=== PATIENT | female | born 1940 | race Caucasian/White ===

== ENCOUNTER 2016-03-27 16:22 | Emergency (ER) | payer OTHER ==
[~2016-03-27] VITALS: Ht 144.8 cm; Wt 60.4 kg
[~2016-03-27 16:22] MED LIST: BIOT1TAB5 PO; CALC500C73 PO; CYAN500T PO; DORZ2SOL20 OPB; GLUC-172 PO; LATA0.009 OPB; LEVO100T7 PO; LSN5 PO; OMEG10007 PO; OMEP40CA PO; SIMV10TA2 PO; VALA500T60 PO
[2016-03-27 16:26] VITALS: TEMP 36.4; Ht 144.8 cm; Wt 60.4 kg
[2016-03-27] MEDS ORDERED: ONDANSETRON INJ 2 MG/ML 2 ML VIAL IV STA (16:29)
[2016-03-27] MEDS ORDERED: SODIUM CHLORIDE 0.9% 1000ML 1,000 ML IV STA (16:29)
--- NOTE | 2016-03-27 16:34 | EMERGENCY ROOM VISIT NOTE ---
History Report prepared by Reji: Hakan Valdez Under the Supervision of: Dr. Raza Montenegro M.D. First contact with patient: 16:24 Chief Complaint: VOMITING Stated Complaint: NAUSEA, VOMITING, WEAKNESS History of Present Illness The patient is a 75 year old female who presents to the Emergency Room with complaints of persistent vomiting beginning about 2.5 hours ago. She notes she felt lightheaded before vomiting, and has had nausea, and diarrhea. She reports she has had a sinus infection for the past month and just finished her prednisone and antibiotics. She notes still having ringing and fullness in her ears. She denies having any pain, or urinary symptoms, and has not had sick contact. The patient has not taken anything for her nausea. She does not smokes , she lives with her , and she is up to date on her tetanus. Source of History: patient Onset: about 2.5 hours ago Position: other (global) Quality: other (vomiting) Timing: other (persistent) Associated Symptoms: + diarrhea, + nausea, No urinary symptoms Note: The patient notes having ringing and fullness in her ears. The patient notes feeling lightheaded. The patient denies general pain. Review of Systems See HPI for pertinent positives & negatives. A total of 10 systems reviewed and were otherwise negative. Past Medical & Surgical Medical Problems: (1) Diverticulosis (2) Hyperlipidemia (3) Hypertensive urgency (4) Hypothyroid Family History No pertinent family history stated. Social History Smoking Status: Never Smoker Marital Status: Housing Status: lives with significant other Current/Historical Medications Scheduled Biotin (Biotin), 1,000 MCG PO DAILY Calcium Carbonate (Tums), 500 MG PO DAILY Cyanocobalamin (Vitamin B-12), 500 MCG PO DAILY Dorzolamide Hcl-Timolol Maleat (Cosopt Oph), 1 DROPS OPB BID Fish Oil ([place]-3), 1,400 MG PO DAILY Glucosamine Sulfate (Glucosamine), 1,000 MG PO DAILY Latanoprost (Xalatan 0.005% Oph Charo), 1 DROPS OPB HS Levothyroxine Sodium (Levothyroxine Sodium), 100 MCG PO DAILY Lisinopril (Lisinopril), 5 MG PO QAM Simvastatin (Zocor), 10 MG PO HS Scheduled PRN Meclizine HCl (Meclizine HCl), 1 TAB PO TID PRN for Dizziness or Vertigo Valacyclovir (Valtrex), 500 MG PO BID PRN for cold sores Allergies Coded Allergies: No Known Allergies (Verified , 03/27/16) Physical Exam Vital Signs Date Time Temp Pulse Resp B/P Pulse Ox O2 Delivery O2 Flow Rate FiO2 03/27/16 19:58 55 16 152/74 97 03/27/16 19:11 59 16 166/93 97 Room Air 03/27/16 17:23 57 16 167/76 97 Room Air 03/27/16 16:26 36.4 61 16 169/100 98 Room Air Physical Exam GENERAL: Patient is well appearing and in no acute distress. HEENT: No acute trauma, normocephalic atraumatic, mucous membranes moist, no nasal congestion, no scleral icterus. NECK: No stridor, no adenopathy, no meningismus, trachea is midline. LUNGS: No dyspnea. Clear to auscultation and equal bilaterally. No wheeze, no rhonchi. HEART: Regular rate and rhythm. No murmurs, rubs, gallops appreciated. ABDOMEN: Soft, nontender, bowel sounds positive, no masses appreciated, no peritonitis. BACK: No midline tenderness, no CVA tenderness EXTREMITIES: Normal motion all extremities, no cyanosis, no edema. NEUROLOGIC: Alert and oriented, no acute motor or sensory deficits, no focal weakness, cranial nerves grossly intact. SKIN: No rash, no jaundice, no diaphoresis. Medical Decision & Procedures ER Provider Diagnostic Interpretation: X ray results and stated below per my interpretation and radiologist interpretation. Other radiology results and stated below per my review and radiologist interpretation: HEAD CT NONCONTRAST Findings: The paranasal sinuses and mastoid air cells are clear. The calvarium and skull base are intact. The ventricles and sulci are within normal limits. There is no mass, hematoma, midline shift, or acute infarct. Impression: No acute intracranial abnormality. Electronically signed by: Arvind Stephens M.D. 03/27/2016 5:01 PM Dictated Date/Time: 03/27/2016 4:[address] FINDINGS: The frontal sinuses are clear. There is mild mucosal thickening within the bilateral frontoethmoidal recesses. Otherwise, the ethmoid air cells, sphenoid sinuses, and bilateral maxillary sinuses are essentially clear. The mastoid air cells are clear. The nasal septum is midline. The bilateral ostiomeatal units are patent. The lamina papyracea and orbital floors are intact. No evidence for carotid canal dehiscence. The orbits are unremarkable. Best seen on coronal images 17 through 20 there is suggestion of a right cribriform plate defect. This measures 3 mm in size. IMPRESSION: Possible right cribriform plate defect measuring 3 mm. Clinical correlation recommended to assess for a cerebral spinal fluid leak. However, there is no significant fluid within the paranasal sinuses at this time to confirm a leak. Direct visualization may be considered for further evaluation. Electronically signed by: Arvind Stephens M.D. 03/27/2016 5:07 PM Dictated Date/Time: 03/27/2016 5:01 PM CHEST ONE VIEW PORTABLE FINDINGS: The heart is normal in size. No pneumothorax. Stable blunting the left lateral costophrenic sulcus. Bibasilar densities persist or this favors subsegmental atelectasis is the upper lungs and remain clear. No evidence for pulmonary edema. IMPRESSION: No significant change compared to the prior study. Stable blunting of the left lateral costophrenic sulcus and mild bibasilar subsegmental atelectasis. Electronically signed by: Arvind Stephens M.D. 03/27/2016 5:28 PM Dictated Date/Time: 03/27/2016 5:26 PM Laboratory Results 03/27/16 16:45 Red Blood Count 4.13, Mean Corpuscular Volume 94.2, Mean Corpuscular Hemoglobin 31.7, Mean Corpuscular Hemoglobin Concent 33.7, Mean Platelet Volume 9.7, Neutrophils (%) (Auto) 79.8, Lymphocytes (%) (Auto) 11.7, Monocytes (%) (Auto) 6.4, Eosinophils (%) (Auto) 1.6, Basophils (%) (Auto) 0.2, Neutrophils # (Auto) 11.63, Lymphocytes # (Auto) 1.71, Monocytes # (Auto) 0.94, Eosinophils # (Auto) 0.23, Basophils # (Auto) 0.03 03/27/16 16:45 Test 03/27/16 16:45 White Blood Count 14.59 K/uL (4.8-10.8) Red Blood Count 4.13 M/uL (4.2-5.4) Hemoglobin 13.1 g/dL (12.0-16.0) Hematocrit 38.9 % (37-47) Mean Corpuscular Volume 94.2 fL (80-100) Mean Corpuscular Hemoglobin 31.7 pg (25-34) Mean Corpuscular Hemoglobin Concent 33.7 g/dl (32-36) Platelet Count 204 K/uL (130-400) Mean Platelet Volume 9.7 fL (7.4-10.4) Neutrophils (%) (Auto) 79.8 % Lymphocytes (%) (Auto) 11.7 % Monocytes (%) (Auto) 6.4 % Eosinophils (%) (Auto) 1.6 % Basophils (%) (Auto) 0.2 % Neutrophils # (Auto) 11.63 K/uL (1.4-6.5) Lymphocytes # (Auto) 1.71 K/uL (1.2-3.4) Monocytes # (Auto) 0.94 K/uL (0.11-0.59) Eosinophils # (Auto) 0.23 K/uL (0-0.5) Basophils # (Auto) 0.03 K/uL (0-0.2) RDW Standard Deviation 45.3 fL (36.4-46.3) RDW Coefficient of Variation 13.1 % (11.5-14.5) Immature Granulocyte % (Auto) 0.3 % Immature Granulocyte # (Auto) 0.05 K/uL (0.00-0.02) Anion Gap 14.0 mmol/L (3-11) Est Creatinine Clear Calc Drug Dose 45.7 ml/min Estimated GFR () 82.3 Estimated GFR (Non- 71.0 BUN/Creatinine Ratio 28.5 (10-20) Calcium Level 9.5 mg/dl (8.5-10.1) Total Bilirubin 0.4 mg/dl (0.2-1) Direct Bilirubin 0.1 mg/dl (0-0.2) Aspartate Amino Transf (AST/SGOT) 13 U/L (15-37) Alanine Aminotransferase (ALT/SGPT) 18 U/L (12-78) Alkaline Phosphatase 54 U/L (45-117) Total Creatine Kinase 55 U/L (26-192) Creatine Kinase MB 1.7 ng/ml (0.5-3.6) Creatine Kinase MB Ratio 3.1 (0-3.0) Troponin I < 0.015 ng/ml (0-0.045) Total Protein 6.9 gm/dl (6.4-8.2) Albumin 3.3 gm/dl (3.4-5.0) Lipase 150 U/L (73-393) Laboratory results as reviewed by me. Medications Administered Medications (Trade) Dose Ordered Sig/Bere Route Start Time Stop Time Status Last Admin Dose Admin Ondansetron HCl 4 mg 4 mg NOW STAT IV 03/27/16 16:29 03/27/16 16:31 DC 03/27/16 16:29 4 MG Sodium Chloride (Nss 1000ml) 1,000 ml @ 999 mls/hr Q1H1M STAT IV 03/27/16 16:29 03/27/16 17:29 DC 03/27/16 16:41 999 MLS/HR Lorazepam (Ativan Inj) 0.5 mg NOW STAT IV 03/27/16 17:52 03/27/16 17:53 DC 03/27/16 18:32 0.5 MG Meclizine HCl (Antivert Tab) 12.5 mg NOW STAT PO 03/27/16 17:52 03/27/16 17:53 DC 03/27/16 18:31 12.5 MG Meclizine HCl (Antivert 25MG Home Pack) 1 homepack UD ONCE PO 03/27/16 19:45 03/27/16 19:46 DC 03/27/16 19:54 1 HOMEPACK Ondansetron HCl (ZOFRAN ODT 4MG Home Pack) 1 homepack UD ONCE PO 03/27/16 19:45 03/27/16 19:46 DC 03/27/16 19:54 1 HOMEPACK ECG Indication: vomiting Rate (beats per minute): 59 Rhythm: sinus bradycardia Findings: no acute ischemic change, no ectopy ED Course 1625: The patient was evaluated in room B7. A complete history and physical exam was performed. 1629: Ordered NSS 1,000 ml @ 999 mls/hr IV, and Zofran Inj 4 mg IV. 1749: The patient states the Zofran did not help. She feels her symptoms are more like "the world is spinning". 175: Ordered Meclizine HCl 12.5 mg PO, and Lorazepam 0.5 mg IV. 1912: I reassessed the patient and she feels completely better with no further symptoms. 1944: Ordered Ondansetron HCl 1 homepack PO, and Meclizine HCl 1 homepack PO. 1999: Reevaluated the patient. Discussed results and discharge instructions: She verbalized understanding and agreement. The patient is ready for discharge. Medical Decision Differential diagnoses include Benign positional vertigo, Dehydration, Hypovolemia, Anemia, Tumor, Infection, Hypoglycemia, Electrolyte abnormalities, Cardiac sources, Intracerebral event, Toxicologic, Neurologic, as well as others were entertained. 75 yr old female arrives with nausea, vomiting, weakness and complaint of "lightheadedness." After repeat discussions with her seems more vertiginous in nature and thus given ativan/meclizine with complete resolution of symptoms. She looks well, no neuro deficits and vitals normalized. She does have mildly elevated WBC though I suspect this is secondary to the recent steroid use she had rather than acute infection. She is noted ot have cribriform plate abnormality which I discussed with ENT who feel outpatient evaluation will be needed. She does not have meningitis by examination nor history. I do not feel she requires admission and she is very happy to be going home. I suspect her vertiginous symptoms from middle ear effusion. No evidence of otitis media at this time. Stable and feeling well at time of discharge. Plan use meclizine PRN and case management involved in helping set up outpatient follow- up. Impression Primary Impression: Vertigo Additional Impressions: Middle ear effusion Vomiting Cribriform Plate Abnormality Scribe Attestation The scribe's documentation has been prepared under my direction and personally reviewed by me in its entirety. I confirm that the note above accurately reflects all work, treatment, procedures, and medical decision making performed by me. Departure Information Dispostion Home / Self-Care Prescriptions Meclizine HCl (Meclizine HCl) 25 Mg Tab 1 TAB PO TID Y for Dizziness or Vertigo, #15 TAB Prov: Raza Montenegro M.D. 03/27/16 Referrals Kalen Ribeiro M.D. (PCP) Italo Baker MD Patient Instructions Dizziness Vertigo Inner Ear, My [facility] Additional Instructions Please follow up with ENT in the next few weeks for repeat evaluation of the abnormality seen on your CT Scan (irregularity of the Cribriform Plate). If you develop fevers, severe headache, neck stiffness, or other concerns, return for further evaluation. Problem Qualifiers Additional Impressions: Middle ear effusion Laterality: left Qualified Codes: H65.92 - Unspecified nonsuppurative otitis media, left ear Vomiting Vomiting type: unspecified Vomiting Intractability: non-intractable Nausea presence: with nausea Qualified Codes: R11.2 - Nausea with vomiting, unspecified
[2016-03-27] MEDS ORDERED: LATA0.5S OPB (16:43)
[2016-03-27] MEDS ORDERED: LEVO100T7 PO (16:43)
[2016-03-27] MEDS ORDERED: BIOT1TAB5 PO (16:43)
[2016-03-27] MEDS ORDERED: CALC500C3 PO (16:43)
--- NOTE | 2016-03-27 17:03 | DIAGNOSTIC IMAGING REPORT ---
HEAD CT NONCONTRAST CT DOSE: HISTORY: dizzy TECHNIQUE: Multiaxial CT images of the head were performed without the use of intravenous contrast. Automated exposure control was utilized for this study. Comparison: None. Findings: The paranasal sinuses and mastoid air cells are clear. The calvarium and skull base are intact. The ventricles and sulci are within normal limits. There is no mass, hematoma, midline shift, or acute infarct. Impression: No acute intracranial abnormality. Electronically signed by: Arvind Stephens M.D. 03/27/2016 5:01 PM Dictated Date/Time: 03/27/2016 4:59 PM
[2016-03-27 17:05] LABS: HEMATOCRIT 38.9 % (37-47); MEAN CELL VOLUME 94.2 fL (80-100); MEAN CORPUSCULAR HEMOGLOBIN 31.7 pg (25-34); MEAN CORPUSCULAR HGB CONC 33.7 g/dl (32-36); MEAN PLATELET VOLUME 9.7 fL (7.4-10.4); PLATELET COUNT 204 K/uL (130-400); RED BLOOD COUNT 4.13 M/uL (4.2-5.4); WHITE BLOOD COUNT 14.59 K/uL (4.8-10.8)
--- NOTE | 2016-03-27 17:09 | DIAGNOSTIC IMAGING REPORT ---
SINUS CT CT DOSE: HISTORY: persistent sinus congestion TECHNIQUE: Multiaxial CT images of the paranasal sinuses were performed and reformatted in the coronal plane without the use of contrast. COMPARISON: None. FINDINGS: The frontal sinuses are clear. There is mild mucosal thickening within the bilateral frontoethmoidal recesses. Otherwise, the ethmoid air cells, sphenoid sinuses, and bilateral maxillary sinuses are essentially clear. The mastoid air cells are clear. The nasal septum is midline. The bilateral ostiomeatal units are patent. The lamina papyracea and orbital floors are intact. No evidence for carotid canal dehiscence. The orbits are unremarkable. Best seen on coronal images 17 through 20 there is suggestion of a right cribriform plate defect. This measures 3 mm in size. IMPRESSION: Possible right cribriform plate defect measuring 3 mm. Clinical correlation recommended to assess for a cerebral spinal fluid leak. However, there is no significant fluid within the paranasal sinuses at this time to confirm a leak. Direct visualization may be considered for further evaluation. Electronically signed by: Arvind Stephens M.D. 03/27/2016 5:07 PM Dictated Date/Time: 03/27/2016 5:01 PM
[2016-03-27 17:23] LABS: ALT/SGPT 18 U/L (12-78); BLOOD UREA NITROGEN 23 mg/dl (7-18); BUN/CREATININE RATIO 28.5 (10-20); CALCIUM 9.5 mg/dl (8.5-10.1); CARBON DIOXIDE 25 mmol/L (21-32); CHLORIDE 105 mmol/L (98-107); CREATININE 0.82 mg/dl (0.60-1.20); GLUCOSE 116 mg/dl (70-99); POTASSIUM 3.6 mmol/L (3.5-5.1); SODIUM 144 mmol/L (136-145)
[2016-03-27 17:24] LABS: BASO % 0.2 %; BASO ABS # 0.03 K/uL (0-0.2); COMPLETE YES; EOS % 1.6 %; IG% 0.3 %; LYMPH % 11.7 %; LYMPH ABS # 1.71 K/uL (1.2-3.4); MONO % 6.4 %; NEUT % 79.8 %
[2016-03-27 17:28] LABS: ALKALINE PHOSPHATASE 54 U/L (45-117); AST/SGOT 13 U/L (15-37); CKMB/CK RATIO 3.1 (0-3.0)
--- NOTE | 2016-03-27 17:30 | DIAGNOSTIC IMAGING REPORT ---
CHEST ONE VIEW PORTABLE HISTORY: dizzy COMPARISON: Chest 11/05/2015. FINDINGS: The heart is normal in size. No pneumothorax. Stable blunting the left lateral costophrenic sulcus. Bibasilar densities persist or this favors subsegmental atelectasis is the upper lungs and remain clear. No evidence for pulmonary edema. IMPRESSION: No significant change compared to the prior study. Stable blunting of the left lateral costophrenic sulcus and mild bibasilar subsegmental atelectasis. Electronically signed by: Arvind Stephens M.D. 03/27/2016 5:28 PM Dictated Date/Time: 03/27/2016 5:26 PM
[2016-03-27] MEDS ORDERED: MECLIZINE HCL 25 MG TAB PO STA (17:52)
[2016-03-27] MEDS ORDERED: LORAZEPAM 2 MG/ML 1 ML VIAL IV STA (17:52)
[2016-03-27] MEDS ORDERED: ANT25 PO (19:34)
[2016-03-27] MEDS ORDERED: ONDANSETRON HOME PACK 4MG OD TAB PO ONE (19:45)
[2016-03-27] MEDS ORDERED: MECLIZINE HCL 25MG HOME PACK PO ONE (19:45)
[2016-03-27 19:58] VITALS: BP 152/74; PULSE 55; O2SAT 97
[2016-06-14] MEDS ORDERED: PRED20TA2 PO (12:19)
[2016-06-14] MEDS ORDERED: ASPCH81X PO (12:19)
[2016-06-14] MEDS ORDERED: SULF800T23 PO (12:19)
[2016-06-14] MEDS ORDERED: LEVO88TA3 PO (12:19)
[2016-06-14] MEDS ORDERED: LISI-729 PO (12:19)
== END 2016-03-27 19:59 | disposition home or self-care (01) ==
LOC: EDBD 16:22 → C.EDB 16:23
DX: R42 Dizziness and giddiness (principal); R11.10 Vomiting, unspecified; E78.5 Hyperlipidemia, unspecified; E03.9 Hypothyroidism, unspecified; I10 Essential (primary) hypertension

== ENCOUNTER 2016-06-18 09:54 | Day surgery (SDC) | payer OTHER ==
[2016-06-14 12:19] VITALS: BMI 27.0
[~2016-06-18] VITALS: Ht 147.3 cm; Wt 59.1 kg
[~2016-06-18 09:54] MED LIST changes: +ASPCH81X PO; -CALC500C73 PO; +LACTATED RINGER'S 1000ML 1,000 ML IV SCH; -LATA0.009 OPB; +LATA0.5S OPB; -LEVO100T7 PO; +LEVO88TA3 PO; +LISI-729 PO; -LSN5 PO; -OMEP40CA PO; +PRED20TA2 PO; +SULF800T23 PO; -VALA500T60 PO
[2016-06-18 10:12] VITALS: BP 167/74; PULSE 52; TEMP 36.8; O2SAT 98; Ht 147.3 cm; Wt 59.1 kg
[2016-06-18] MEDS ORDERED: PHENYLEPHRINE 100MCG/ML 5ML SYR IV PRN (10:15)
[2016-06-18] MEDS ORDERED: EpHEDrine SULFATE INJ 50 MG/ML AMP IV PRN (10:15)
[2016-06-18] MEDS ORDERED: HYDROmorphone INJ 0.5 MG/0.5 ML SYR IV PRN (10:15)
[2016-06-18] MEDS ORDERED: FLUMAZENIL 0.1 MG/1 ML 10 ML VIAL IV PRN (10:15)
[2016-06-18] MEDS ORDERED: MEPERIDINE HCL 25 MG/ML CARP IV PRN (10:15)
[2016-06-18] MEDS ORDERED: ATROPINE SULFATE 0.1 MG/ML 5ML SYR IV PRN (10:15)
[2016-06-18] MEDS ORDERED: FENTANYL CITRATE INJ 50 MCG/1 ML 2 ML VIAL IV PRN (10:15)
[2016-06-18] MEDS ORDERED: ONDANSETRON INJ 2 MG/ML 2 ML VIAL IV PRN (10:15)
[2016-06-18] MEDS ORDERED: NALOXONE HCL 0.4 MG/1 ML VIAL/CARP IV PRN (10:15)
[2016-06-18] MEDS ORDERED: LABETALOL HCL IV 5 MG/ML 20ML IV PRN (10:15)
[2016-06-18] MEDS ORDERED: LIDOCAINE HCL 1% 20 ML VIAL ONE (10:35)
[2016-06-18] MEDS ORDERED: PROPOFOL IV EMULSION 10 MG/ML 20 ML VIAL IV ONE (11:13)
[2016-06-18] MEDS ORDERED: LIDOCAINE HCL 2% 2 ML VIAL (20MG/ML) ONE (11:13)
[2016-06-18] MEDS ORDERED: FENTANYL CITRATE INJ 50 MCG/1 ML 2 ML VIAL ONE (11:14)
[2016-06-18] MEDS ORDERED: MIDAZOLAM HCL 1 MG/ML 2ML VIAL ONE (11:14)
--- NOTE | 2016-06-18 11:22 | History & Physical Bridge Note ---
H&P Re-Evaluation Bridge Note: I have examined the patient, reviewed the History & Physical and in the interval since the performance of the History & Physical I have noted the following changes of clinical significance: No changes noted
[2016-06-18] MEDS ORDERED: CEFAZOLIN SOD 1 GM VIAL ONE (11:46)
[2016-06-18] MEDS ORDERED: EpHEDrine SULFATE 50MG/5ML SYR ONE (12:17)
[2016-06-18] MEDS ORDERED: BACITRACIN OINT 15 GM TUBE ONE (12:31)
--- NOTE | 2016-06-18 12:46 | Discharge Instructions ---
Discharge Instructions Date of Service Jun 18, 2016. Visit Reason for Visit: Episodes Cluster Headache, Not Intractable Discharge Discharge Diagnosis / Problem: S/P left temporal artery biopsy Discharge Goals Goal(s): Decrease discomfort, Improve function Activity Recommendations Activity Limitations: resume your previous activity Lifting Limitations: none Exercise/Sports Limitations: none May Resume Sexual Activity: when tolerated Shower/Bathe: may shower/bathe in 3 days Driving or Machine Use: resume 3 days after discharge Anesthesia . Post Anesthesia Instructions: If you have had General Anesthesia or IV Sedation: * Do not drive today. * Resume driving when surgeon permits. * Do not make important decisions or sign legal documents today. * Call surgeon for: 1. Temperature elevations greater than 101 degrees F. 2. Uncontrollable pain. 3. Excessive bleeding. 4. Persistent nausea and vomiting. 5. Medication intolerance (nausea, vomiting or rash). * For nausea and vomiting use only clear liquids such as: tea, soda, bouillon until nausea subsides, then gradually increase diet as tolerated. * If you have any concerns or questions, call your surgeon's office. If physician is unavailable and it is an emergency, call 911 or go to the nearest emergency room. . Instructions / Follow-Up Instructions / Follow-Up keep evelyn dressing on for 4 days, she can take a shower on 06/22/2016, take po tylenol 650 mg po q6h prn for pain for 3 days only, Follow up 1 week, Diet Recommendations Recommended Home Diet: resume previous diet Procedures Procedures Performed: Left Temporal Artery Biopsy Pending Studies Studies pending at discharge: no Medical Emergencies . Who to Call and When: Medical Emergencies: If at any time you feel your situation is an emergency, please call 911 immediately. . Non-Emergent Contact Non-Emergency issues call your: Surgeon Call Non-Emergent contact if: you have a fever, temperature is above 100.5, your pain is not controlled, your pain is worsening, wound has increased drainage, wound has increased redness . . "Provider Documentation" section prepared by Danii Garcia. [place] Drug Monitoring Program Search Results: patient reviewed within database
--- NOTE | 2016-06-18 12:54 | Anesthesiology Progress Note ---
Anesthesia Post Op Note Date & Time Jun 18, 2016 at 12:53 Vital Signs Pain Intensity: 0 Vital Signs Past 12 Hours Date Time Temp Pulse Resp B/P Pulse Ox O2 Delivery O2 Flow Rate FiO2 06/18/16 12:50 37.2 50 16 148/64 97 Room Air 06/18/16 12:40 51 16 150/68 100 Room Air 06/18/16 12:33 36 51 16 139/65 100 Room Air 06/18/16 10:12 36.8 52 18 167/74 98 Room Air Notes Mental Status: alert / awake / arousable, participated in evaluation Pt Amnestic to Procedure: Yes Nausea / Vomiting: adequately controlled Pain: adequately controlled Airway Patency, RR, SpO2: stable & adequate BP & HR: stable & adequate Hydration State: stable & adequate Anesthetic Complications: no major complications apparent
[2016-06-18 13:00] VITALS: BP 145/69; PULSE 53; TEMP 36.6; O2SAT 97
[2016-06-18 13:30] VITALS: BP 112/64; PULSE 70; TEMP 36.6; O2SAT 97
--- NOTE | 2016-06-18 13:37 | [facility] Post Operative Brief Note ---
Immediate Operative Summary Operative Date Jun 18, 2016. Pre-Operative Diagnosis Arteritis headaches Post-Operative Diagnosis Arteritis Headaches Procedure(s) Performed Left Temporal Artery Biopsy Surgeon Jose Public Speaking Teacher Surgeon(s) none Estimated Blood Loss 3ML Findings normal finding Specimens A: temporal artery biopsy (left) Drains none Anesthesia local + sedation Complication(s) None Disposition Recovery Room / PACU
--- NOTE | 2016-06-18 18:22 | OPERATIVE REPORT ---
DATE OF OPERATION: 06/18/2016 PREOPERATIVE DIAGNOSIS: Left headache with a temporary pain. POSTOPERATIVE DIAGNOSIS: Same. PROCEDURE: Left temporal artery biopsy. SURGEON: Danii Garcia MD ANESTHESIA: Conscious sedation plus local. ESTIMATED BLOOD LOSS: About 3 mL. FINDINGS: Normal finding. COMPLICATIONS: None. INTRAVENOUS FLUIDS: 500 mL. INDICATIONS FOR THE PROCEDURE: This is a 76-year-old female who presented with left headache with temporary pain and the patient the PCP referral for temporal artery biopsy to rule arteritis. I did talk to the patient about the benefit and risk alternate of procedure. The indication risks may include but not limited such as bleeding, infection, may need more procedure even , vision changes, stroke. The patient understands. She signed informed consent and I answered all questions. DETAILS OF PROCEDURE: We brought the patient to the OR and put the patient in the supine position. The patient received SCD on bilateral legs to prevent DVT. Also, the patient received 2 grams Ancef IV for prophylactic antibiotic. The patient received conscious sedation by the anesthesiology. The patient left side temporary was prepped and draped in routine sterile fashion. After time out, I injected 1% lidocaine around the left side temporal area. Then first I used the Doppler to locate the temporal artery. Then I put marking pen to dolly the artery. Then I made a small incision and followed the arterial marking. Then we found the patient has left side temporal arterial pain. Then I used the Doppler to confirm again. Then I tied 2 end of the temporal artery using 4-0 Vicryl and I removed about 1 cm piece of the temporal artery. Rechecked no active bleeding. Then I used 4-0 Vicryl and closed the skin incision continuous running. Then we put the dressing on. The patient tolerated the procedure well. All instrument, needle and sponge count correct x2 towards the end of the case. The specimen was sent to pathology. The patient transferred to recovery room in stable condition. After the patient recovered, I did talk to the patient about the OR finding and procedure we did. Also, I gave patient the postop care instruction. The patient understands and we will follow up in 1 week. I attest to the content of the Intraoperative Record and any orders documented therein. Any exceptions are noted below. EMILY
[2016-06-19] MEDS ORDERED: CEFAZOLIN IV 2,000 MG/60 ML D5W IV ONE (06:00)
== END 2016-06-18 13:40 | disposition home or self-care (01) ==
LOC: C.ACU 09:54
PROVIDERS: ATTEND Surgery
DX: R51 Headache (principal); I10 Essential (primary) hypertension; E03.9 Hypothyroidism, unspecified; E78.5 Hyperlipidemia, unspecified; Z90.710 Acquired absence of both cervix and uterus; Z98.890 Other specified postprocedural states; Z79.899 Other long term (current) drug therapy; Z68.27 Body mass index [BMI] 27.0-27.9, adult; Z83.3 Family history of diabetes mellitus; Z82.49 Family history of ischemic heart disease and other diseases of the circulatory system; Z80.0 Family history of malignant neoplasm of digestive organs

== ENCOUNTER → 2016-08-02 | Outpatient (CLI) | payer OTHER ==
[~2016-08-02] MED LIST changes: -LACTATED RINGER'S 1000ML 1,000 ML IV SCH
--- NOTE | 2016-08-02 14:07 | MAMMOGRAPHY REPORT ---
BILATERAL DIGITAL SCREENING MAMMOGRAM WITH CAD: 08/02/2016 TECHNIQUE: Current study was also evaluated with a Computer Aided Detection (CAD) system. Bilatera l CC and MLO views were obtained. COMPARISON: Comparison is made to exams dated: 07/28/2015 mammogram, 07/20/2014 mammogram, 05/26/2013 mammogram, 05/22/2012 mammogram, 05/17/2011 mammogram, and 05/12/2010 mammogram - [facility] enter. BREAST COMPOSITION: There are scattered areas of fibroglandular density in both breasts. FINDINGS: No suspicious masses, calcifications, or areas of architectural distortion are noted in e ither breast. There has been no significant interval change compared to prior exams. Scattered bilat eral benign-appearing calcifications are not significantly changed. IMPRESSION: ACR BI-RADS CATEGORY 2: BENIGN There is no mammographic evidence of malignancy. A 1 year screening mammogram is recommended. The p atient will receive written notification of the results. Approximately 10% of breast cancers are not detected with mammography. A negative mammographic repor t should not delay biopsy if a clinically suggestive mass is present. Cherelle Loepz M.D. /:08/02/2016 12:17:59 Hand Mold Maker: Lala VALENCIA(Ronak)([place]), [facility] letter sent: Normal 1/2 BI-RADS Code: ACR BI-RADS Category 2: Benign
== END | disposition home or self-care (01) ==
LOC: C.MAMM 10:27
PROVIDERS: ATTEND Family Medicine
DX: Z12.31 Encounter for screening mammogram for malignant neoplasm of breast (principal)

== ENCOUNTER 2020-10-19 00:10 | Inpatient (IN) ==
--- NOTE | 2020-10-19 00:59 | Emergency Department Note ---
Impression & Plan Pericarditis, Failure of outpatient treatment, T wave inversion in EKG, Left- sided chest pain ED Provider Note Name: DELMA ACOSTA Age: 80 Sex: F Arrives Via: Walk-In Informant: Patient, Daughter, EPIC record ED Provider: Raza Montenegro MD Chief Complaint: Chest Pain Impression: Pericarditis Failure Outpatient Treatment Left Chest Pain T wave inversionson EKG Medical Decision Makin yr old female with extensive PMH who has had quite the complicated last month following [place] [facility] [place]. Has had thrombocytopenia, pericarditis, syncope, PEs, effusions and multiple hospitalizations. Most recently with left pleural effusion drained and developed acute renal insufficiency thus had to stop NSAIDs that were keeping pericarditis under control. Arrives with acute worsening left chest pain, worse with movement. EKG with clear T wave inversions compared to previous though no overt STEMI nor evidence ACS. She has known cath just 2 months ago with relatively clear coronaries and trop is negative, with pain for over a day I do not feel this is ACS. No clear evidence this is dissection at this time. Does have moderate left pleural effusion though no recent XRAY to compare with post drainage just a few days ago. She is oxygenating well and comfortable when laying still. Mag is a bit low as well. WBC is 15 which is of uncertain etiology in setting of no fevers currently. ESR and CRP quite elevated consistent with pericarditis. Trop negative thus myocarditis unlikely. She is on eliquis thus unlikely worsening clot burden and with stable O2 and normal hr I don't think need for doing CT PE at this time. Discussed case with neon tube pumper Ateo who advised IV Steroids (decadron) and agrees with hospitalization given severe complexity of patient. Hospitalist consulted. Prior Medical Record and Triage/Nursing Notes reviewed by Me Additional history obtained from Chart and [facility] Differentials:Cardiac ischemia, aortic dissection, pulmonary embolism, pneumothorax, pneumonia, pericarditis, myocarditis, esophageal rupture, GERD, cholecystitis, pancreatitis, musculoskeletal, as well as other pathologies. Vital Signs: reviewed and remarkable for no significant abnormalities Interventions: saline lock, decadron 10mg iv, magnesium 1 gm iv, pepcid 20mg iv Labs:Reviewed and remarkable for +WBC, +CRP, +ESR, low mag Imaging:X ray results are stated below per my interpretation: Chest: 1 view: Left pleural effusion EKG:Per My Interpretation: Indication left chest pain: NSR 80 bpm, qtc 408 with anter/lat T wave inversions. No Ectopy. No Ischemia. Compared to EKG 07/13/20 t wave inversions are new Cardiac/Tele Monitoring: Cardiac Monitoring: An Order was placed for continuous cardiac monitoring. The monitor shows a rate of 80 with a normal sinus rhythm. Consults:Dr Chago Castañeda Cardiology and Dr Paradise Castañeda Hospitalist Plan: Disposition:Hospitalization. Condition: Fair History of Present Illness:80 yr old female arrives for evaluation of left chest pain. Pain ongoing for last 36 hours. Gradually worsening. Radiates to left scapular and armpit. Worse with movement, better with rest. Laying on left side or right side make worse, laying on back makes better. Symptoms similar to pericarditis that she has been dealing with over the last few weeks. She notes being on Motrin 600mg TID for last 10 days but was stopped 2 days ago due to worsening renal function. Admits some mild shortness of breath, worse with deep inspiration. No fevers, chills, syncope, headache, arm weakness, abdominal pain, back pain, nausea, vomiting, leg swelling, nor other symptoms. Patient with [place] [facility] [place] which post op has been complicated by multiple issues, multiple admissions and gradually decreasing strength. She is currently on Eliquis due to PE's diagnosed 2 weeks ago. Arrives today as she notes Charge Operator (Dr Rosales) advised she go to ED for evaluation. 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 A total of 10 systems reviewed and were otherwise negative. Past Medical History:See Below Past Surgical History:See Below Family History:See Below Social History:See Below Home Medications:See Below Allergies:heparin Vitals:Blood Pressure: 115/60, Pulse 82, RR 16, T 37.5C, O2 93% on RA Physical Exam: GENERAL: Patient is tired/unwell appearing and in mild distress. EYES: No scleral icterus, unremarkable pupils. ENT: Mucous membranes moist, no nasal congestion. NECK: No masses appreciated, nomeningismus, trachea is midline. RESPIRATORY: Decreased breath sounds left lower lung redding with mild diffuse crackles, No dyspnea. CARDIOVASCULAR: Regular rate and rhythm.No murmurs, rubs, gallops appreciated. GASTROINTESTINAL: Abdomen soft, non-tender, no peritonitis.Bowel sounds positive.No masses appreciated. BACK: No midline tenderness, no CVA tenderness EXTREMITIES: Normal motion all extremities, no cyanosis, no edema. NEUROLOGIC: Alert and oriented, no acute motor or sensory deficits, no focal weakness, cranial nerves grossly intact. SKIN: No rash, no jaundice, no diaphoresis. PSYCH: Appropriate GCS: 15 ED Course: Times/Reassessments: stable, comfortable with hospitalization and management plan Raza Montenegro MD Past Med/Surg History Social History Smoking Status: Never smoker Hx Alcohol Use: No Hx Substance Use: No Preferred Language: Norwegian Medical Lab Assistant Required: No Beliefs That Will Affect Care: None Current Living Situation: Alone Feels Safe at Home: Yes Assistive Devices: None Allergies Allergies Allergy/AdvReac Type Severity Reaction Status Date / Time heparin AdvReac Severe Unknown Verified 10/19/20 01:43 Home Meds Home Medications Medication Instructions Recorded Confirmed cholecalciferol (vitamin D3) 50 50 mcg PO DAILY 07/28/20 10/19/20 mcg (2,000 unit) capsule (Vitamin D3) glucosamine-chondroitin 250 mg-200 1 tab PO DAILY 07/28/20 10/19/20 mg tablet (Osteo Bi-Flex) alendronate 70 mg tablet 70 mg PO WK 10/19/20 10/19/20 apixaban 5 mg tablet (Eliquis) 5 mg PO BID 10/19/20 10/19/20 aspirin 81 mg chewable tablet 81 mg PO DAILY 10/19/20 10/19/20 atorvastatin 20 mg tablet 20 mg PO DAILY 10/19/20 10/19/20 biotin 1,000 mcg chewable tablet 1,000 mcg PO DAILY 10/19/20 10/19/20 cyanocobalamin (vitamin B-12) 500 500 mcg PO DAILY 10/19/20 10/19/20 mcg tablet dorzolamide 22.3 mg-timolol 6.8 1 drp OPHTHALMIC (EYE) BID 08/11/21 08/11/21 mg/mL eye drops latanoprost 0.005 % eye drops 1 drp OPB HS 10/19/20 10/19/20 levothyroxine 88 mcg tablet 88 mcg PO DAILYBB 10/19/20 10/19/20 metoprolol tartrate 25 mg tablet 12.5 mg PO BID 10/19/20 10/19/20 omega 5-otp-ywg-fish oil 910 1 cap PO DAILY 10/19/20 10/19/20 mg-1,400 mg capsule (Osseo-3 Fish Oil) pantoprazole 40 mg tablet,delayed 40 mg PO DAILY 10/19/20 10/19/20 release Results & Data (ED) Vital Signs Vital Signs - 24 hr 10/19/20 00:15 10/19/20 01:00 10/19/20 02:00 Temperature 37.5 C Temperature Source Temporal Artery Scan Pulse Rate 82 76 Pulse Rate [Finger] 80 Pulse Rate from SpO2 Sensor 77 Respiratory Rate 19 16 Respiratory Effort / Characteristics Non-Labored Spontaneous Respiratory Depth Normal Blood Pressure 148/85 H 129/66 Blood Pressure [Right Arm] 172/91 H Blood Pressure Mean 106 87 Blood Pressure Mean [Right Arm] 118 Blood Pressure Position Sitting Pulse Oximetry 96 96 94 Oxygen Delivery Method Room Air Room Air Sepsis Recent Fever Within 48 Hours No Sepsis New/Unexplained Change in Mental Status N/A Sepsis Action Taken by Nursing No Action Required 10/19/20 02:30 10/19/20 03:00 10/19/20 03:30 Temperature Temperature Source Pulse Rate 79 75 74 Pulse Rate [Finger] 74 Pulse Rate from SpO2 Sensor 79 75 74 Respiratory Rate 16 16 16 Respiratory Effort / Characteristics Respiratory Depth Blood Pressure 121/66 118/65 120/59 L Blood Pressure [Right Arm] 118/65 Blood Pressure Mean 84 82 79 Blood Pressure Mean [Right Arm] 82 Blood Pressure Position Pulse Oximetry 93 94 92 Oxygen Delivery Method Room Air Sepsis Recent Fever Within 48 Hours Sepsis New/Unexplained Change in Mental Status Sepsis Action Taken by Nursing 10/19/20 05:00 Temperature Temperature Source Pulse Rate Pulse Rate [Finger] 82 Pulse Rate from SpO2 Sensor Respiratory Rate Respiratory Effort / Characteristics Respiratory Depth Blood Pressure Blood Pressure [Right Arm] 115/60 Blood Pressure Mean Blood Pressure Mean [Right Arm] 78 Blood Pressure Position Pulse Oximetry 93 Oxygen Delivery Method Room Air Sepsis Recent Fever Within 48 Hours Sepsis New/Unexplained Change in Mental Status Sepsis Action Taken by Nursing Laboratory Data Result diagrams: 10/19/20 00:40 10/19/20 00:40 Lab Results 10/19/20 10/19/20 10/19/20 Range/Units 00:40 00:40 00:40 WBC (4.8-10.8) K/uL RBC (4.2-5.4) M/uL Hgb (12.0-16.0) g/dL Hct (37-47) % MCV (80-100) fL MCH (25-34) pg MCHC (32-36) g/dL RDW Std Deviation (36.4-46.3) fL RDW Coeff of Cathy (11.5-14.5) % Plt Count (130-400) K/uL MPV (7.4-10.4) fL Immature Gran % (Auto) % Neut % (Auto) % Lymph % (Auto) % [place] % (Auto) % Eos % (Auto) % Baso % (Auto) % Neut # (Auto) (1.4-6.5) K/uL Lymph # (Auto) (1.2-3.4) K/uL [place] # (Auto) (0.11-0.59) K/uL Eos # (Auto) (0-0.5) K/uL Baso # (Auto) (0-0.2) K/uL Immature Gran # (Auto) (0.00-0.02) K/uL ESR 112 H (0-30) mm/hr PT 12.7 H (9.0-12.0) Seconds INR 1.3 H (0.9-1.1) APTT 36.5 H (21.0-31.0) Seconds PTT Ratio 1.4 Sodium 138 (136-145) mmol/L Potassium 4.1 (3.5-5.1) mmol/L Chloride 110 H (98-107) mmol/L Carbon Dioxide 21 (21-32) mmol/L Anion Gap 7.0 (3-11) BUN 17 (7-18) mg/dl Creatinine 0.83 (0.6-1.2) mg/dl Est Cr Clr Drug Dosing 34.0 ml/min Est GFR ( Amer) 78.3 ml/min Est GFR (Non-Af Amer) 67.5 ml/min BUN/Creatinine Ratio 20.0 (10-20) Glucose 118 H (70-99) mg/dl Calcium 8.8 (8.5-10.1) mg/dl Magnesium 1.4 L (1.8-2.4) mg/dl Troponin I < 0.015 (0-0.045) ng/ml C-Reactive Protein 14.20 H (0-0.29) mg/dl NT-Pro-B Natriuret Pep 791 (0-1800) pg/ml TSH 15.800 H (0.300-4.500) uIu/ml Free T4 1.16 (0.8-1.6) ng/dl Urine Color Urine Appearance (Clear) Urine pH (4.5-7.5) Ur Specific [place] (1.000-1.030) Urine Protein (Negative) Urine Glucose (UA) (Negative) Urine Ketones (Negative) Urine Blood (Negative) Urine Nitrite (Negative) Urine Bilirubin (Negative) Urine Urobilinogen (Negative) Ur Leukocyte Esterase (Negative) Urine WBC (Auto) (0-5) /hpf Urine RBC (Auto) (0-4) /hpf U Hyaline Cast (Auto) (0-5) /lpf U Epithel Cells (Auto) (0-5) /lpf Urine Bacteria (Auto) (Negative) COVID-19 Eval Order SARS-CoV-2 (PCR) (Negative) 10/19/20 10/19/20 10/19/20 Range/Units 00:40 01:20 01:44 WBC 15.19 H (4.8-10.8) K/uL RBC 3.50 L (4.2-5.4) M/uL Hgb 10.5 L (12.0-16.0) g/dL Hct 34.0 L (37-47) % MCV 97.1 (80-100) fL MCH 30.0 (25-34) pg MCHC 30.9 L (32-36) g/dL RDW Std Deviation 59.7 H (36.4-46.3) fL RDW Coeff of Cathy 17.2 H (11.5-14.5) % Plt Count 399 (130-400) K/uL MPV 9.3 (7.4-10.4) fL Immature Gran % (Auto) 0.9 % Neut % (Auto) 80.3 % Lymph % (Auto) 6.8 % [place] % (Auto) 6.6 % Eos % (Auto) 5.1 % Baso % (Auto) 0.3 % Neut # (Auto) 12.20 H (1.4-6.5) K/uL Lymph # (Auto) 1.04 L (1.2-3.4) K/uL [place] # (Auto) 1.00 H (0.11-0.59) K/uL Eos # (Auto) 0.77 H (0-0.5) K/uL Baso # (Auto) 0.05 (0-0.2) K/uL Immature Gran # (Auto) 0.13 H (0.00-0.02) K/uL ESR (0-30) mm/hr PT (9.0-12.0) Seconds INR (0.9-1.1) APTT (21.0-31.0) Seconds PTT Ratio Sodium (136-145) mmol/L Potassium (3.5-5.1) mmol/L Chloride (98-107) mmol/L Carbon Dioxide (21-32) mmol/L Anion Gap (3-11) BUN (7-18) mg/dl Creatinine (0.6-1.2) mg/dl Est Cr Clr Drug Dosing ml/min Est GFR ( Amer) ml/min Est GFR (Non-Af Amer) ml/min BUN/Creatinine Ratio (10-20) Glucose (70-99) mg/dl Calcium (8.5-10.1) mg/dl Magnesium (1.8-2.4) mg/dl Troponin I (0-0.045) ng/ml C-Reactive Protein (0-0.29) mg/dl NT-Pro-B Natriuret Pep (0-1800) pg/ml TSH (0.300-4.500) uIu/ml Free T4 (0.8-1.6) ng/dl Urine Color Yellow Urine Appearance Clear (Clear) Urine pH 5.0 (4.5-7.5) Ur Specific [place] 1.020 (1.000-1.030) Urine Protein 1+ H (Negative) Urine Glucose (UA) Negative (Negative) Urine Ketones Negative (Negative) Urine Blood 2+ H (Negative) Urine Nitrite Negative (Negative) Urine Bilirubin Negative (Negative) Urine Urobilinogen Negative (Negative) Ur Leukocyte Esterase Negative (Negative) Urine WBC (Auto) 5-10 H (0-5) /hpf Urine RBC (Auto) 10-30 H (0-4) /hpf U Hyaline Cast (Auto) 10-30 H (0-5) /lpf U Epithel Cells (Auto) >30 H (0-5) /lpf Urine Bacteria (Auto) Negative (Negative) COVID-19 Eval Order Covid19 at [facility] SARS-CoV-2 (PCR) (Negative) 10/19/20 Range/Units 01:44 WBC (4.8-10.8) K/uL RBC (4.2-5.4) M/uL Hgb (12.0-16.0) g/dL Hct (37-47) % MCV (80-100) fL MCH (25-34) pg MCHC (32-36) g/dL RDW Std Deviation (36.4-46.3) fL RDW Coeff of Cathy (11.5-14.5) % Plt Count (130-400) K/uL MPV (7.4-10.4) fL Immature Gran % (Auto) % Neut % (Auto) % Lymph % (Auto) % [place] % (Auto) % Eos % (Auto) % Baso % (Auto) % Neut # (Auto) (1.4-6.5) K/uL Lymph # (Auto) (1.2-3.4) K/uL [place] # (Auto) (0.11-0.59) K/uL Eos # (Auto) (0-0.5) K/uL Baso # (Auto) (0-0.2) K/uL Immature Gran # (Auto) (0.00-0.02) K/uL ESR (0-30) mm/hr PT (9.0-12.0) Seconds INR (0.9-1.1) APTT (21.0-31.0) Seconds PTT Ratio Sodium (136-145) mmol/L Potassium (3.5-5.1) mmol/L Chloride (98-107) mmol/L Carbon Dioxide (21-32) mmol/L Anion Gap (3-11) BUN (7-18) mg/dl Creatinine (0.6-1.2) mg/dl Est Cr Clr Drug Dosing ml/min Est GFR ( Amer) ml/min Est GFR (Non-Af Amer) ml/min BUN/Creatinine Ratio (10-20) Glucose (70-99) mg/dl Calcium (8.5-10.1) mg/dl Magnesium (1.8-2.4) mg/dl Troponin I (0-0.045) ng/ml C-Reactive Protein (0-0.29) mg/dl NT-Pro-B Natriuret Pep (0-1800) pg/ml TSH (0.300-4.500) uIu/ml Free T4 (0.8-1.6) ng/dl Urine Color Urine Appearance (Clear) Urine pH (4.5-7.5) Ur Specific [place] (1.000-1.030) Urine Protein (Negative) Urine Glucose (UA) (Negative) Urine Ketones (Negative) Urine Blood (Negative) Urine Nitrite (Negative) Urine Bilirubin (Negative) Urine Urobilinogen (Negative) Ur Leukocyte Esterase (Negative) Urine WBC (Auto) (0-5) /hpf Urine RBC (Auto) (0-4) /hpf U Hyaline Cast (Auto) (0-5) /lpf U Epithel Cells (Auto) (0-5) /lpf Urine Bacteria (Auto) (Negative) COVID-19 Eval Order SARS-CoV-2 (PCR) NEGATIVE (Negative) Administered Medications Discontinued Medications Dexamethasone Sodium Phosphate (DexamethasonePf 10 Mg/Ml Vial) 10 mg IV NOW ONE Stop: 10/19/20 02:25 Last Admin: 10/19/20 02:35 Dose: 10 mg Documented by: [id number] Famotidine (Famotidine 20mg/5ml Iv Push) 20 mg IV ONE STA Stop: 10/19/20 02:25 Last Admin: 10/19/20 02:35 Dose: 20 mg Documented by: [id number] Magnesium Sulfate/Dextrose (Magnesium Sulfate / D5w) 1 gm in 100 mls @ 100 mls/hr IV NOW STA Stop: 10/19/20 03:23 Last Infusion: 10/19/20 03:50 Dose: 0 mls/hr Documented by: [id number] Admin: 10/19/20 02:35 Dose: 100 mls/hr Documented by: [id number] Discharge Plan Visit Data Chief Complaint: Cardiac Assessment Stated Complaint: PAIN UNDER LEFT SHOULDER ED Provider: Raza Montenegro Discharge Problem: Pericarditis, Failure of outpatient treatment, T wave inversion in EKG, Left- sided chest pain Forms Stand Alone Forms: My [facility] [address] Prescriptions Prescriptions: No Action glucosamine-chondroitin [Osteo Bi-Flex] 250-200 mg Tablet 1 tab PO DAILY RF: 0 cholecalciferol (vitamin D3) [Vitamin D3] 50 mcg (2,000 unit) Capsule 50 mcg PO DAILY RF: 0 alendronate 70 mg tablet 70 mg PO WK RF: 0 aspirin 81 mg tablet,chewable 81 mg PO DAILY RF: 0 atorvastatin 20 mg tablet 20 mg PO DAILY RF: 0 levothyroxine 88 mcg tablet 88 mcg PO DAILYBB RF: 0 biotin 1,000 mcg Tablet,Chewable 1,000 mcg PO DAILY RF: 0 latanoprost 0.005 % drops 1 drp OPB HS RF: 0 pantoprazole 40 mg tablet,delayed release (DR/EC) 40 mg PO DAILY RF: 0 metoprolol tartrate 25 mg tablet 12.5 mg PO BID RF: 0 Eliquis 5 mg tablet 5 mg PO BID RF: 0 dorzolamide-timolol 22.3-6.8 mg/mL drops 1 drp ophthalmic (eye) BID RF: 0 cyanocobalamin (vitamin B-12) 500 mcg Tablet 500 mcg PO DAILY RF: 0 Osseo-3 Fish Oil 910-1,400 mg Capsule 1 cap PO DAILY RF: 0 Referrals Referrals: Kalen Ribeiro MD [Primary Care Provider] - Discharge Problem: Pericarditis Qualifiers: Pericarditis type: unspecified type Chronicity: acute Qualified Code(s): I30.9 - Acute pericarditis, unspecified
[2020-10-19 01:05] LABS: Basophils # (auto) 0.05 K/uL (0-0.2); Basophils % (auto) 0.3 %; Eosinophils # (auto) 0.77 K/uL (0-0.5); Eosinophils % (auto) 5.1 %; Hemoglobin 10.5 g/dL (12.0-16.0); Immature Granulocytes # (auto) 0.13 K/uL (0.00-0.02); Immature Granulocytes % (auto) 0.9 %; Lymphocytes # (auto) 1.04 K/uL (1.2-3.4); Lymphocytes % (auto) 6.8 %; Mean Corpuscular Hgb Conc 30.9 g/dL (32-36); Mean Corpuscular Volume 97.1 fL (80-100); Mean Platelet Volume 9.3 fL (7.4-10.4); Monocytes % (auto) 6.6 %; Neutrophils % (auto) 80.3 %; Platelet Count 399 K/uL (130-400); RDW Coefficient of Variation 17.2 % (11.5-14.5); RDW Standard Deviation 59.7 fL (36.4-46.3); White Blood Count 15.19 K/uL (4.8-10.8)
[2020-10-19 01:11] LABS: Blood Urea Nitrogen 17 mg/dl (7-18); Calcium 8.8 mg/dl (8.5-10.1); Carbon Dioxide 21 mmol/L (21-32); Chloride 110 mmol/L (98-107); Est GFR (African American) 78.3 ml/min; Est GFR (Non-African American) 67.5 ml/min; Glucose 118 mg/dl (70-99); Magnesium 1.4 mg/dl (1.8-2.4); Potassium 4.1 mmol/L (3.5-5.1); Sodium 138 mmol/L (136-145)
[2020-10-19 01:17] LABS: INR 1.3 (0.9-1.1); Partial Thromboplastin Ratio 1.4; Partial Thromboplastin Time 36.5 Seconds (21.0-31.0); Prothrombin Time 12.7 Seconds (9.0-12.0)
[2020-10-19 01:22] LABS: NT Pro B Type Natriuretic Pept 791 pg/ml (0-1800); T4 Free Thyroxine 1.16 ng/dl (0.8-1.6); Troponin I < 0.015 ng/ml (0-0.045)
[2020-10-19 01:31] LABS: Appearance Urine Clear (Clear); Bacteria Urine Automated Negative (Negative); Bilirubin Urine Negative (Negative); Blood Urine 2+ (Negative); Color Urine Yellow; Epithelial Cell Urine Auto >30 /lpf (0-5); Glucose Urine UA Negative (Negative); Ketones Urine Negative (Negative); Leukocyte Esterase Urine Negative (Negative); Nitrite Urine Negative (Negative); Protein Urine 1+ (Negative); Urobilinogen Urine Negative (Negative)
[2020-10-19] MEDS ORDERED: dexAMETHasone**PF** 10 MG/ML VIAL IV ONE (02:24)
[2020-10-19] MEDS ORDERED: FAMOTIDINE 20MG/5ML IV PUSH IV STA (02:24)
[2020-10-19] MEDS ORDERED: MAGNESIUM SULFATE / D5W 1 GM/100 ML BAG IV STA (02:24)
--- NOTE | 2020-10-19 07:54 | XRay Report ---
XR chest 1V portable HISTORY: Atypical chest pain, sob COMPARISON: Chest 03/27/2016. FINDINGS: No pneumothorax. Small bilateral pleural effusions. There are are small bibasilar densities . The heart is mildly enlarged. A cardiac valve stent is noted. There is a mildly tortuous thoracic a tee. No evidence for pulmonary edema. The upper lung zones are clear. IMPRESSION: 1. Small bilateral pleural effusions. 2. Bibasilar densities are nonspecific but favor atelectasis from the pleural effusions. A pneumonia could also have a similar appearance. 3. Mild cardiomegaly. ACT 112: Negative or not required by law. Electronically signed by: Arvind Stephens M.D. 10/19/2020 7:53 AM
--- NOTE | 2020-10-19 10:29 | History and Physical Report ---
DATE OF ADMISSION: 10/19/2020. CHIEF COMPLAINT: Chest pain. HISTORY OF PRESENT ILLNESS: This is a 80-year-old female with past medical history significant for hypothyroidism, hyperlipidemia, history of pleural effusion, chronic kidney disease stage III, hypertension, pulmonary embolism, aortic stenosis, pericardial effusion, pericarditis, status post TAVR, GERD, diverticulosis, primary open angle glaucoma, thoracic back pain, HIT, iron deficiency anemia, who presents with chest pain. The patient as per the cardiology notes, she recently underwent a transcatheter aortic valve replacement performed at [facility] on 09/20/2020 after that she was readmitted to [facility] on 3 separate occasions, first was on 09/25/2020 until 09/26/2020 with chest pressure and concave ST elevation in inferolateral leads and diagnosed with pericarditis and echo showed at that time small circumferential pericardial effusion and she was just discharged on a course of aspirin, colchicine, but she was again readmitted in [facility] on 10/01/2020-10/04/2020 with complaints of presyncope, thrombocytopenia was noted in atrial fibrillation with rapid ventricular response in the 130s, with subsequent spontaneous conversion to sinus rhythm and due to thrombocytopenia, serotonin release assay was performed which was suggestive of HIT and platelet count improved to normal. She was again admitted to [facility] on 10/08/2020 until 10/11/2020 at this time, with the chief complaint of shortness of breath. CT angiogram was performed on 10/09/2020 revealed moderate bilateral pulmonary emboli with evidence of right heart strain, moderate to large pleural effusions and a moderate size pericardial effusion that has increased in size compared to 09/25/2020 and again echo was performed on 10/09/2020 revealing normal EF, mild right ventricular systolic dysfunction, small to moderate circumferential pericardial effusion as well as bilateral pleural effusion. At that time, she was discharged on Eliquis 5 mg twice daily for paroxysmal atrial fibrillation and also for bilateral pulmonary emboli and she was discharged on 10-day course of ibuprofen. She also was recently seen by thoracic surgery as a outpatient at [facility] and thoracocentesis performed and 1 liter of fluid was taken out from the left pleural effusion. Today she again comes because of left sided chest pain radiating to left shoulder moderate in severity. If she takes deep breath or coughs the pain is more and when she turns around the pain is more. Denies any shortness of breath, ambulating slowly at home, lives currently with her daughter. Denies any headache, no dizziness, no blurred visions, no earache, no runny nose, no sore throat, no cough, no difficulty swallowing. Appetite is not that great. No nausea, no abdominal pain, normal bowel and bladder movements. Currently, resting comfortably and stable. ER physician talked to cardiology on-call and recommended steroids. So she was given a dose of Decadron, she says the chest pain is slightly better now. ALLERGIES: HEPARIN. PAST MEDICAL HISTORY: As mentioned above. PAST SURGICAL HISTORY: Colonoscopy, dilatation and curettage, left vertebral fracture open reduction and internal fixation, ligation and biopsy of temporal artery on the left side. Lumbosacral epidural shots, TAVR of the aortic valve, total abdominal hysterectomy with removal of tubes. MEDICATIONS: The patient currently is on alendronate 70 mg p.o. weekly, Eliquis 5 mg p.o. b.i.d., aspirin 81 mg p.o. daily, atorvastatin 20 mg p.o. daily, biotin 10,000 mcg p.o. daily, vitamin D 50 mg p.o. daily, vitamin B12 500 mcg p.o. daily, dorzolamide-timolol one drop ophthalmic eye b.i.d., glucosamine chondroitin 1 tablet p.o. daily, latanoprost one drop ophthalmic at bedtime, levothyroxine 88 mcg p.o. daily, metoprolol tartrate 12.5 mg p.o. b.i.d., fish oil 1 capsule p.o. daily, Protonix 40 mg p.o. daily. FAMILY HISTORY: Significant for aunt has colon cancer, brother has MA; father has MA, mother has renal failure and thyroid disorder. SOCIAL HISTORY: , currently living with her daughter. No smoking, no alcohol, no drug use. REVIEW OF SYSTEMS: As per HPI. Rest of the review of systems is negative. PHYSICAL EXAMINATION: GENERAL: The patient is old and frail, not in acute distress. VITAL SIGNS: Temperature 37.5, pulse 82, respiratory rate 16, blood pressure 115/60, oxygen 93% on room air. HEENT: Pupils equal, round and reactive to light. Oral mucosa moist. NECK: No JVD, no neck masses. HEART: S1 and S2 heard, regular rate and rhythm. No murmur, no gallop. RESPIRATORY SYSTEM: Normal AP diameter. No accessory muscle use. No wheezing, no crackles. ABDOMEN: Soft, bowel sounds present, nontender, no distention. CENTRAL NERVOUS SYSTEM: Cranial nerves II-XII grossly intact, nonfocal. EXTREMITIES: No edema, no erythema. LABORATORY DATA: WBC 15.19, hemoglobin 10.5, hematocrit 34, platelets 2399. ESR 112. PT 12.7, INR 1.3, APTT 36.5. Sodium 138, potassium 4.1, chloride 110, bicarbonate 21, BUN 17, creatinine 0.8, serum glucose 118, calcium 8.8, magnesium 1.4. Troponin I less than 0.015. CRP 14.2. BNP 791. TSH 15.8. Free T4 1.1. Urinalysis +2 blood. SARS-CoV-2 PCR negative. IMAGING DATA: Chest x-ray, no acute findings. EKG: Normal sinus rhythm with a rate of 80, no significant change was found. ASSESSMENT AND PLAN: This is a 80-year-old female who presents with chest pain. 1. Chest pain, ongoing pericarditis. She recently had TAVR on 09/20/2020. 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 We will continue with IV Solu-Medrol 50 mg daily and repeat echo as per Cardiology. We will follow serial enzymes and monitor in med/tele. 2. History of transcatheter aortic valve replacement, repeat echo as per Cardiology. 3. History of atrial fibrillation, rate controlled with metoprolol tartrate and Eliquis. 4. History of pulmonary embolism, on Eliquis. 5. History of pleural effusions, recently left sided pleural fluid was drained. We will follow chest ultrasound. 6. History of pericardial effusion, probably secondary to pericarditis, on steroids. Repeat echo as per Cardiology. 7. History of aortic valve stenosis, status post TAVR. 8. Hyperlipidemia, on statin. 9. Glaucoma, on eyedrops. 10. Hypothyroidism, on Synthroid. 11. Hypertension on Toprol-XL. We will monitor the blood pressure. 12. Gastroesophageal reflux disease, on Protonix. 13. Deep venous thrombosis prophylaxis, Eliquis. DISPOSITION: Closely monitor in the med/tele. Level 1 full code. Expect to discharge home and follow with family doctor. Job ID: [id number] MTDD
[2020-10-19] MEDS ORDERED: POLYETHYLENE (MIRALAX) 17 GM PACK PO PRN (10:49)
[2020-10-19] MEDS ORDERED: NITROGLYCERIN SL 0.4 MG/TAB TAB SL PRN (10:49)
[2020-10-19] MEDS ORDERED: ONDANSETRON INJ 2 MG/ML 2 ML VIAL IV PRN (10:49)
[2020-10-19] MEDS ORDERED: ACETAMINOPHEN 325 MG TAB PO PRN (10:49)
[2020-10-19] MEDS ORDERED: NON-FORMULARY MEDICATION (Biotin 1,000 mcg Tablet,Chewable) PO SCH (10:49)
[2020-10-19] MEDS ORDERED: NON-FORMULARY MEDICATION (Glucosamine-Chondroitin [Osteo Bi-Flex] 250-200 mg Tablet) PO SCH (10:49)
[2020-10-19] MEDS: COLCHICINE 0.6 MG TAB PO SCH ×2 (10:50→19:45)
[2020-10-19] MEDS: predniSONE 20 MG TAB PO SCH (10:50)
[2020-10-19] MEDS: FUROSEMIDE 40 MG in SYRINGE 0 ML IV SCH (10:50)
--- NOTE | 2020-10-19 12:43 | Cardiology Consultation ---
Date of Consultation October 19, 2020 Assessment & Plan (1) Pericarditis: (2) S/P TAVR (transcatheter aortic valve replacement): (3) Pleural effusion: (4) History of pulmonary embolism: (5) Right sided heart: (6) Pericardial effusion: Patient with recurrent chest discomfort after recent discontinuation of treatment for her acute pericarditis secondary to renal insufficiency. Renal function is at baseline. Chest pain significantly improved with IV steroids will now change to prednisone 20 mg p.o. daily. Patient also examines is volume overloaded and will receive IV diuresis, strict I's and O's and daily weights on the same scale. We will also initiate colchicine 0.6 mg p.o. twice daily as an anti- inflammatory. We will monitor on telemetry. Continue all other outpatient cardiac medications History of Present Illness Reason for Consultation: Chest pain Requesting Physician: Dr. Ghotra Attending Physician: Tiffany Be MD History of Present Illness It was my pleasure to see Mrs. Nieves in cardiac consultation today October 19, 2020. She is a very pleasant yet cardiovascularly complex 80-year-old woman who is been following extremely closely with Dr. Rosales of our cardiology practice. She presented to [facility] on 10/18/2020 with complaints of recurrence of chest discomfort. She states her pain is similar to the pain she had when first diagnosed with pericarditis. She describes the discomfort as left-sided pressure that radiates to her left shoulder. Pain is worsened with deep inhalation or movement. Discussed the case with ER physician early this a.m. and recommended IV steroids to be started. Patient states that she is feeling much better at this point with only slight discomfort. Recent cardiac course summarized and most recent outpatient cardiology note: She had recently undergone transcatheter aortic valve replacement performed at [facility] on 09/20/[address] Maya receiving a #23 mm Edward Sapein S3 Ultra prosthesis. In the meantime, she has been readmitted to [facility] 3 separate occasions. She was admitted from 09/25/2020 until 09/26/2020 with chest pressure and concave ST elevation in the anterior and lateral leads. She was diagnosed with pericarditis and an echocardiogram performed at [facility] 09/26/2020 revealed normal LV EF, normal TAVR prosthetic gradients, and a small circumferential pericardial effusion. She was subsequent discharged on a course of aspirin and colchicine. She was readmitted however to [facility] from 10/01/2020- 10/04/2020 with complaints of presyncope. Thrombocytopenia was noted noted. Atrial fibrillation with rapid ventricular response into the 130s noted with subsequent spontaneous conversion to sinus rhythm. Due to thrombocytopenia, serotonin release assay was performed which was positive suggestive heparin induced thrombocytopenia. Platelet count which had been as low as 91 K on 10/04/2020, has improved to 268 as of yesterday 10/11/2020. She was admitted again at [facility] from 10/08/2020 until 10/11/2020 this time with chief complaint of shortness of breath. CT angiogram of the chest performed 10/09/2020 revealed moderate bilateral pulmonary emboli with evidence of right heart strain, moderate to large pleural effusions, and a moderate-size pericardial effusion that was increase in size compared to 09/25/2020. Echocardiogram performed at [facility] 10/09/2020 revealed normal LVEF, 60 to 64%, mild right ventricular systolic dysfunction, stable TAVR prosthetic gradients, moderate TR, small to moderate circumferential pericardial effusion as well as bilateral pleural effusions that correlated well with the CT findings. Ultimately she was discharged Eliquis 5 milligrams twice daily for both stroke prophylaxis in the setting of paroxysmal atrial fibrillation, as well as treatment of her bilateral pulmonary embolism. She had been seen by Dr. Maya and a 10 day course of ibuprofen 600 milligrams 3 times per day was recommended, she was discharged with plans to complete 7 more days of therapy. She notes that overall, shortness of breath that prompted her most recent hospital stay has improved, but she does note an ongoing congested sensation in her ears and nose as if she is talked talking through a tunnel. Allergies Allergy/AdvReac Type Severity Reaction Status Date / Time heparin AdvReac Severe Unknown Verified 10/19/20 01:43 Home Medications Medication Instructions Recorded Confirmed Type cholecalciferol (vitamin D3) 50 50 mcg PO DAILY 07/28/20 10/19/20 History mcg (2,000 unit) capsule (Vitamin D3) glucosamine-chondroitin 250 mg-200 1 tab PO DAILY 07/28/20 10/19/20 History mg tablet (Osteo Bi-Flex) alendronate 70 mg tablet 70 mg PO WK 10/19/20 10/19/20 History apixaban 5 mg tablet (Eliquis) 5 mg PO BID 10/19/20 10/19/20 History aspirin 81 mg chewable tablet 81 mg PO DAILY 10/19/20 10/19/20 History atorvastatin 20 mg tablet 20 mg PO DAILY 10/19/20 10/19/20 History biotin 1,000 mcg chewable tablet 1,000 mcg PO DAILY 10/19/20 10/19/20 History cyanocobalamin (vitamin B-12) 500 500 mcg PO DAILY 10/19/20 10/19/20 History mcg tablet dorzolamide 22.3 mg-timolol 6.8 1 drp OPHTHALMIC (EYE) BID 10/19/20 10/19/20 History mg/mL eye drops latanoprost 0.005 % eye drops 1 drp OPB HS 10/19/20 10/19/20 History levothyroxine 88 mcg tablet 88 mcg PO DAILYBB 10/19/20 10/19/20 History metoprolol tartrate 25 mg tablet 12.5 mg PO BID 10/19/20 10/19/20 History omega 4-gcb-uvt-fish oil 910 1 cap PO DAILY 10/19/20 10/19/20 History mg-1,400 mg capsule ([place]-3 Fish Oil) pantoprazole 40 mg tablet,delayed 40 mg PO DAILY 10/19/20 10/19/20 History release Patient History Social History Smoking Status: Never smoker Hx Alcohol Use: No Hx Substance Use: No Preferred Language: Turkmen Communication Ability: Effective Art 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 No acute distress. HEENT: Normocephalic, atraumatic. Pupils equal, round and reactive to light and accommodation. Extraocular muscles are intact. Anicteric sclera. Moist mucous membranes. Neck: No JVD. No bruit. Cardiovascular: Regular. Positive S-4. Normal S-1 and S-2. No S-3. 3/6 mid to late systolic ejection murmur, greatest at the right sternal border, second intercostal space with radiation to the bilateral carotids. Ventricular systolic rub is present. Pulmonary: Clear to auscultation bilaterally. No rales, rhonchi, or wheezing. Abdomen: Bowel sounds x 4, soft. No rebound, guarding or tenderness. No organomegaly. Extremities: No clubbing, cyanosis or edema. +2 pedal pulses bilaterally. Skin: Warm and dry. Results & Data ([facility]) Vital Signs (Past 12 Hours) Vital Signs Temp Pulse Pulse Resp BP BP Pulse Ox 10/19/20 10:53 36.8 C 62 18 123/60 96 10/19/20 10:30 61 17 108/55 L 93 10/19/20 10:00 61 18 120/60 93 10/19/20 09:30 61 18 95/55 L 93 10/19/20 09:00 62 22 133/65 96 10/19/20 08:31 61 19 111/69 93 10/19/20 08:00 65 21 105/59 L 92 10/19/20 07:30 64 19 108/67 92 10/19/20 07:00 60 16 109/56 L 93 10/19/20 06:30 65 21 114/74 93 10/19/20 06:00 66 19 127/69 94 10/19/20 05:00 82 115/60 93 10/19/20 03:30 74 16 120/59 L 92 10/19/20 03:00 75 74 16 118/65 118/65 94 10/19/20 02:30 79 16 121/66 93 10/19/20 02:00 76 16 129/66 94 10/19/20 01:00 80 172/91 H 96 (1) Pericarditis Chronicity: acute Pericarditis type: unspecified type Qualified Code(s): I30.9 - Acute pericarditis, unspecified
[2020-10-19 12:47] LABS: Troponin I < 0.015 ng/ml (0-0.045)
--- NOTE | 2020-10-19 13:12 | Ultrasound Report ---
US effusion-chest/mediastinum CLINICAL HISTORY: b/l pleural effusion COMPARISON STUDY: Chest 10/19/2020. FINDINGS: There are moderate bilateral pleural effusions measuring 620 cc on the right and 651 cc on the left. The left pleural effusion appears multiloculated with internal echoes. IMPRESSION: Moderate bilateral pleural effusions as described above. The left pleural effusion appea rs to be multiloculated. ACT 112: Negative or not required by law. Electronically signed by: Arvind Stephens M.D. 10/19/2020 1:10 PM
--- NOTE | 2020-10-19 14:02 | Electrocardiogram Report ---
Test Reason : Blood Pressure : / mmHG Vent. Rate : 080 BPM Atrial Rate : 080 BPM P-R Int : 144 ms QRS Dur : 072 ms QT Int : 354 ms P-R-T Axes : 025 027 207 degrees QTc Int : 408 ms Normal sinus rhythm T wave abnormality, consider anterior ischemia Abnormal ECG When compared with ECG of 27-MAR-2016 16:34, Nonspecific T wave abnormality, worse in Inferior leads T wave inversion now evident in Anterior leads Confirmed by Crescencio Justin ([id number]) on 10/19/2020 2:01:58 PM Referred By: REFERRED SELF Confirmed By:Ethan Justin
[2020-10-19] MEDS: ASPIRIN 81 MG CHEW PO SCH (14:42)
[2020-10-19] MEDS: CYANOCOBALAMIN 500 MCG TABLET (VITAMIN B-12) PO SCH (14:42)
[2020-10-19] MEDS: APIXABAN 5 MG TABLET PO SCH ×2 (14:42→19:46)
[2020-10-19] MEDS: CHOLECALCIFEROL 1,000 UNITS 25 MCG TAB PO SCH (14:42)
[2020-10-19] MEDS: LEVOTHYROXINE SODIUM 88 MCG TABLET PO SCH (14:43)
[2020-10-19] MEDS: METOPROLOL TARTRATE 25 MG TAB PO SCH ×4 (14:43→19:51)
[2020-10-19] MEDS: ATORVASTATIN 20 MG TAB PO SCH (14:44)
[2020-10-19] MEDS: DORZOLAMIDE/TIMOLOL 22.3/6.8MG/ML 10 ML BTL OP SCH ×2 (14:44→19:45)
[2020-10-19] MEDS: PANTOprazole 40 MG TAB PO SCH (14:44)
[2020-10-19] MEDS ORDERED: CALCIUM CARBONATE 500 MG CHEWABLE TAB PO PRN (20:54)
[2020-10-19] MEDS ORDERED: LATANOPROST 0.005% OP SOLN 2.5 ML BTL OPB SCH (21:00)
--- NOTE | 2020-10-19 21:54 | Hospitalist Progress Note ---
Date of Service October 19, 2020 Assessment & Plan (1) History of pulmonary embolism: (2) Pleural effusion: (3) Pericarditis: Plan: 80-year-old lady with PMH of hypothyroidism, HLD, pleural effusion, CKD stage III, HTN, pulmonary embolism, left ear, pericardial effusion, pericarditis, status post TAVR, GERD, diverticulosis, primary open-angle glaucoma, thoracic back pain, HIT, iron deficiency anemia presents to our ED 10/18 with chest pain. She is being managed for the following #. Ongoing pericarditis/chest pain #. Status post TAVR #. History of PE Recent TAVR on 09/20/2020 followed by [address] [facility] [first with pericarditi s, second with presyncope found to have Afib & HIT, third with SOB found to have PE/pleural effusion/pericardial effusion when she was discharged on Eliquis and ibuprofen and also is a status post 1 L left-sided pleural tapping as an outpatient afterwards.] Cardiology on board: Patient on steroid, IV diuresis, strict I's and O's, daily weights, colchicine 0.6 p.o. twice daily. Repeat echo. Continue all other outpatient cardiac medication. Patient already reporting improvement in her chest pain after dose of steroid. Continue with Eliquis, follow-up echo results #. Bilateral pleural effusion Moderate per [facility] chest Patient on room air, will continue to monitor. Patient on IV diuresis. #. Continue home meds for hyperlipidemia, glaucoma, hypothyroidism, hyper tension, GERD #. DVT prophylaxis: Patient already on Eliquis Admission and Anticipated Discharge Date Admission Date: October 19, 2020 Subjective Patient was lying in bed, on room air, NAD, reports improvement in her chest pain. Patient started on diet. Denies fever, headache, dizziness, chills, sore throat, cough, palpitation, belly pain, acute changes in her bowel or bladder habits, skin rashes or bruises anywhere in the body. Physical Exam Physical Exam: GENERAL: Alert and oriented x3. NAD, on RA. HEENT: No pallor, no icterus. Pupils equal, round and reactive to light. Oral mucosa moist. NECK: No JVD, no neck masses. HEART: S1 and S2 heard. Regular rate and rhythm. Systolic murmur over aortic area, no gallop. RESPIRATORY SYSTEM: Normal AP diameter. No accessory muscle use. No wheezing, no crackles. ABDOMEN: Soft, bowel sounds present, nontender, no distention. CENTRAL NERVOUS SYSTEM: Alert and oriented x3. No facial droop. Speech is clear. Obeys simple commands. Moves extremities. EXTREMITIES: No edema, no erythema seen. Results & Data Results & Data ([facility]) Vital Signs (Past 12 Hours) Vital Signs Temp Pulse Pulse Resp BP BP BP 10/19/20 19:56 36.4 C L 63 18 94/57 L 10/19/20 16:00 61 10/19/20 14:49 36.4 C L 63 18 94/59 L 10/19/20 13:41 66 10/19/20 13:24 36.5 C 76 18 104/67 10/19/20 13:15 36.3 C L 65 18 108/60 10/19/20 10:53 36.8 C 62 18 123/60 10/19/20 10:30 61 17 108/55 L 10/19/20 10:00 61 18 120/60 Pulse Ox 10/19/20 19:56 90 10/19/20 16:00 10/19/20 14:49 90 10/19/20 13:41 10/19/20 13:24 96 10/19/20 13:15 97 10/19/20 10:53 96 10/19/20 10:30 93 10/19/20 10:00 93 (1) Pericarditis Chronicity: acute Pericarditis type: unspecified type Qualified Code(s): I30.9 - Acute pericarditis, unspecified
[2020-10-20 06:02] LABS: BUN Creatinine Ratio 31.8 (10-20); Calcium 8.1 mg/dl (8.5-10.1); Creatinine Clr Calc Pharmacy 46.8 ml/min; Est GFR (African American) 96.6 ml/min; Est GFR (Non-African American) 83.4 ml/min
[2020-10-20] MEDS: LEVOTHYROXINE SODIUM 88 MCG TABLET PO SCH (06:25)
[2020-10-20 06:26] LABS: Hematocrit (blood only) 29.4 % (37-47); Hemoglobin 9.1 g/dL (12.0-16.0); Mean Corpuscular Hemoglobin 29.4 pg (25-34); Mean Corpuscular Volume 95.1 fL (80-100); Mean Platelet Volume 8.9 fL (7.4-10.4); Platelet Count 324 K/uL (130-400); RDW Coefficient of Variation 17.2 % (11.5-14.5); RDW Standard Deviation 58.8 fL (36.4-46.3); Red Blood Count 3.09 M/uL (4.2-5.4); White Blood Count 25.19 K/uL (4.8-10.8)
[2020-10-20 06:27] LABS: Basophils # (auto) 0.02 K/uL (0-0.2); Basophils % (auto) 0.1 %; Eosinophils # (auto) 0.04 K/uL (0-0.5); Eosinophils % (auto) 0.2 %; Immature Granulocytes # (auto) 0.17 K/uL (0.00-0.02); Immature Granulocytes % (auto) 0.7 %; Monocytes # (auto) 1.73 K/uL (0.11-0.59); Monocytes % (auto) 6.9 %; Neutrophils # (auto) 22.23 K/uL (1.4-6.5); Neutrophils % (auto) 88.1 %
[2020-10-20 06:28] LABS: Potassium 3.7 mmol/L (3.5-5.1)
[2020-10-20] MEDS: FUROSEMIDE 40 MG in SYRINGE 0 ML IV SCH (07:59)
[2020-10-20] MEDS: DORZOLAMIDE/TIMOLOL 22.3/6.8MG/ML 10 ML BTL OP SCH (07:59)
[2020-10-20] MEDS: COLCHICINE 0.6 MG TAB PO SCH (08:00)
[2020-10-20] MEDS: CHOLECALCIFEROL 1,000 UNITS 25 MCG TAB PO SCH (08:00)
[2020-10-20] MEDS: APIXABAN 5 MG TABLET PO SCH (08:00)
[2020-10-20] MEDS: PANTOprazole 40 MG TAB PO SCH (08:00)
[2020-10-20] MEDS: ATORVASTATIN 20 MG TAB PO SCH (08:00)
[2020-10-20] MEDS: CYANOCOBALAMIN 500 MCG TABLET (VITAMIN B-12) PO SCH (08:00)
[2020-10-20] MEDS: METOPROLOL TARTRATE 25 MG TAB PO SCH (08:01)
[2020-10-20] MEDS: predniSONE 20 MG TAB PO SCH (08:01)
[2020-10-20] MEDS: ASPIRIN 81 MG CHEW PO SCH (08:02)
--- NOTE | 2020-10-20 12:41 | Cardiology Progress Note ---
Date of Service October 20, 2020 Assessment & Plan (1) Pericarditis: (2) S/P TAVR (transcatheter aortic valve replacement): (3) Pleural effusion: (4) History of pulmonary embolism: (5) Right sided heart: (6) Pericardial effusion: Plan: Patient with recurrent chest discomfort after recent discontinuation of treatment for her acute pericarditis secondary to renal insufficiency. Renal function is at baseline. Chest pain now resolved with prednisone and colchicine, would continue. Does not examine his volume overloaded at this point after receiving IV diuretics, recommend discharge home on Lasix 20 mg p.o. daily. My office will arrange for close cardiac follow-up within the next week. Okay to DC to home from a cardiac standpoint. Admission and Anticipated Discharge Date Admission Date: October 19, 2020 Subjective Patient seen and examined, chart reviewed. States that she is feeling much better today and that the chest pressure has resolved. Now with some positional musculoskeletal back pain. Denies shortness of breath, palpitations, lightheadedness, dizziness or syncope. Telemetry reviewed: Normal sinus rhythm without arrhythmia or significant ectopy. Review of Systems Review of Systems: All systems reviewed & are unremarkable except as noted in HPI & below Physical Exam Physical Exam: General: Awake, alert and oriented x 3. No acute distress. HEENT: Normocephalic, atraumatic. Pupils equal, round and reactive to light and accommodation. Extraocular muscles are intact. Anicteric sclera. Moist mucous membranes. Neck: No JVD. No bruit. Cardiovascular: Regular. Positive S-4. Normal S-1 and S-2. No S-3. 3/6 mid to late systolic ejection murmur, greatest at the right sternal border, second intercostal space with radiation to the bilateral carotids. Ventricular systolic rub is present. Pulmonary: Clear to auscultation bilaterally. No rales, rhonchi, or wheezing. Abdomen: Bowel sounds x 4, soft. No rebound, guarding or tenderness. No organomegaly. Extremities: No clubbing, cyanosis or edema. +2 pedal pulses bilaterally. Skin: Warm and dry. Results & Data ([facility]) Vital Signs (Past 12 Hours) Vital Signs Temp Pulse Pulse Resp BP Pulse Ox 10/20/20 11:38 36.8 C 68 16 105/65 92 08/12/21 09:55 56 L 10/20/20 07:57 36.7 C 60 20 96/61 L 96 10/20/20 02:49 36.6 C 54 L 18 103/64 95 10/20/20 01:40 67 (1) Pericarditis Chronicity: acute Pericarditis type: unspecified type Qualified Code(s): I30.9 - Acute pericarditis, unspecified
--- NOTE | 2020-10-20 12:44 | Cardiology Progress Note ---
Date of Service October 20, 2020 Assessment & Plan Admission and Anticipated Discharge Date Admission Date: October 19, 2020 Results & Data ([facility]) Vital Signs (Past 12 Hours) Vital Signs Temp Pulse Pulse Resp BP Pulse Ox 10/20/20 11:38 36.8 C 68 16 105/65 92 10/20/20 09:55 56 L 10/20/20 07:57 36.7 C 60 20 96/61 L 96 10/20/20 02:49 36.6 C 54 L 18 103/64 95 10/20/20 01:40 67
--- NOTE | 2020-10-20 19:00 | Discharge Summary ---
Date of Service October 20, 2020 Admission HPI Per Admitting Provider This is a 80-year-old female with past medical history significant for hypothyroidism, hyperlipidemia, history of pleural effusion, chronic kidney disease stage III, hypertension, pulmonary embolism, aortic stenosis, p ericardial effusion, pericarditis, status post TAVR, GERD, diverticulosis, primary open angle glaucoma, thoracic back pain, HIT, iron deficiency anemia, who presents with chest pain. The patient as per the cardiology notes, she recently underwent a transcatheter aortic valve replacement performed at [facility] on 09/20/2020 after that she was readmitted to [facility] on 3 separate occasions, first was on 09/25/2020 until 09/26/2020 with chest pressure and concave ST elevation in inferolateral leads and diagnosed with pericarditis and echo showed at that time small circumferential pericardial effusion and she was just discharged on a course of aspirin, colchicine, but she was again readmitted in [facility] on 10/01/2020- 10/04/2020 with complaints of presyncope, thrombocytopenia was noted in atrial fibrillation with rapid ventricular response in the 130s, with subsequent spontaneous conversion to sinus rhythm and due to thrombocytopenia, serotonin release assay was performed which was suggestive of HIT and platelet count improved to normal. She was again admitted to [facility] on 10/08/2020 until 10/11/2020 at this time, with the chief complaint of shortness of breath. CT angiogram was performed on 10/09/2020 revealed moderate bilateral pulmonary emboli with evidence of right heart strain, moderate to large pleural effusions and a moderate size pericardial effusion that has increased in size compared to 09/25/2020 and again echo was performed on 10/09/2020 revealing normal EF, mild right ventricular systolic dysfunction, small to moderate circumferential pericardial effusion as well as bilateral pleural effusion. At that time, she was discharged on Eliquis 5 mg twice daily for paroxysmal atrial fibrillation and also for bilateral pulmonary emboli and she was discharged on 10-day course of ibuprofen. She also was recently seen by thoracic surgery as a outpatient at [facility] and thoracocentesis performed and 1 liter of fluid was taken out from the left pleural effusion. Today she again comes because of left sided chest pain radiating to left shoulder moderate in severity. If she takes deep breath or coughs the pain is more and when she turns around the pain is more. Denies any shortness of breath, ambulating slowly at home, lives currently with her daughter. Denies any headache, no dizziness, no blurred visions, no earache, no runny nose, no sore throat, no cough, no difficulty swallowing. Appetite is not that great. No nausea, no abdominal pain, normal bowel and bladder movements. Currently, resting comfortably and stable. ER physician talked to cardiology on-call and recommended steroids. So she was given a dose of Decadron, she says the chest pain is slightly better now. ALLERGIES: HEPARIN. PAST MEDICAL HISTORY: As mentioned above. PAST SURGICAL HISTORY: Colonoscopy, dilatation and curettage, left vertebral fracture open reduction and internal fixation, ligation and biopsy of temporal artery on the left side. Lumbosacral epidural shots, TAVR of the aortic valve, total abdominal hysterectomy with removal of tubes. MEDICATIONS: The patient currently is on alendronate 70 mg p.o. weekly, Eliquis 5 mg p.o. b.i.d., aspirin 81 mg p.o. daily, atorvastatin 20 mg p.o. daily, biotin 10,000 mcg p.o. daily, vitamin D 50 mg p.o. daily, vitamin B12 500 mcg p.o. daily, dorzolamide-timolol one drop ophthalmic eye b.i.d., glucosamine chondroitin 1 tablet p.o. daily, latanoprost one drop ophthalmic at bedtime, levothyroxine 88 mcg p.o. daily, metoprolol tartrate 12.5 mg p.o. b.i.d., fish oil 1 capsule p.o. daily, Protonix 40 mg p.o. daily. FAMILY HISTORY: Significant for aunt has colon cancer, brother has KS; father has KS, mother has renal failure and thyroid disorder. SOCIAL HISTORY: , currently living with her daughter. No smoking, no alcohol, no drug use. REVIEW OF SYSTEMS: As per HPI. Rest of the review of systems is negative. Admission Exam Per Admitting Provider GENERAL: The patient is old and frail, not in acute distress. VITAL SIGNS: Temperature 37.5, pulse 82, respiratory rate 16, blood pressure 115/60, oxygen 93% on room air. HEENT: Pupils equal, round and reactive to light. Oral mucosa moist. NECK: No JVD, no neck masses. HEART: S1 and S2 heard, regular rate and rhythm. No murmur, no gallop. RESPIRATORY SYSTEM: Normal AP diameter. No accessory muscle use. No wheezing, no crackles. ABDOMEN: Soft, bowel sounds present, nontender, no distention. CENTRAL NERVOUS SYSTEM: Cranial nerves II-XII grossly intact, nonfocal. EXTREMITIES: No edema, no erythema. Principal Diagnosis Pericarditis B/l Pleural Effusion: mild to mod Discharge Exam GENERAL: Alert and oriented x3. NAD, on RA. HEENT: No pallor, no icterus. Pupils equal, round and reactive to light. Oral mucosa moist. NECK: No JVD, no neck masses. HEART: S1 and S2 heard. Regular rate and rhythm. Systolic murmur over aortic area, no gallop. RESPIRATORY SYSTEM: Normal AP diameter. No accessory muscle use. No wheezing, no crackles. ABDOMEN: Soft, bowel sounds present, nontender, no distention. CENTRAL NERVOUS SYSTEM: Alert and oriented x3. No facial droop. Speech is clear. Obeys simple commands. Moves extremities. EXTREMITIES: No edema, no erythema seen. Discharge Data Allergies Allergy/AdvReac Type Severity Reaction Status Date / Time heparin AdvReac Severe Unknown Verified 10/19/20 01:43 Consultations 10/19/20 02:24 ED Decision to Admit Stat 10/19/20 10:49 Consult Cardiology Routine Ordered Studies 10/19/20 US effusion-chest/mediastinum Routine Hospital Course (1) History of pulmonary embolism: (2) Pleural effusion: (3) Pericarditis: 80-year-old lady with PMH of hypothyroidism, HLD, pleural effusion, CKD stage III, HTN, pulmonary embolism, left ear, pericardial effusion, pericarditis, status post TAVR, GERD, diverticulosis, primary open-angle glaucoma, thoracic back pain, HIT, iron deficiency anemia presents to our ED 10/18 with chest pain. She is being managed for the following #. Ongoing pericarditis/chest pain #. Status post TAVR #. History of PE Recent TAVR on 09/20/2020 followed by 3 admission to [facility] [first with pericarditis, second with presyncope found to have Afib & HIT, third with SOB found to have PE/pleural effusion/pericardial effusion when she was discharged on Eliquis and ibuprofen and also is a status post 1 L left-sided pleural tapping as an outpatient afterwards.] Cardiology on board: Patient on steroid and colchicine, diuresis, strict I's and O's, daily weights. Continue all other outpatient cardiac medication. Patient has marked improvement in her chest pain Continue with Eliquis Follow-up with PCP in 1 week and also follow-up with cardiology in 1 week #. Bilateral pleural effusion Moderate per USG chest Patient on room air, no respiratory distress while inpatient. Continue with diuresis upon discharge, follow-up with PCP in 1 week. #. Continue home meds for hyperlipidemia, glaucoma, hypothyroidism, hypertension, GERD #. DVT prophylaxis: Patient already on Eliquis Patient was discharged to home with self-care. Following instructions were communicated at the time of discharge: F/u with your PCP in a week's time for reassessment, and for f/u on your mild to moderate pleural effusion. F/u with your heart doctor in 1-2 week's time. Lasix 20 mg daily will be added to your regimen, get CBC and BMP in 3 days, forward it to your PCP. Colchicine 0.6 mg twice daily and prednisone 20 mg po daily are other new meds, f/u with your cardiology in a week's time for further evaluation for this Treatment. You might need tapering dose on your steroid in 2-4 weeks depending upon your clinical condition. Total Time Total Time Spent Total Time Spent (In Minutes): 45 Discharge Plan Discharge Items Patient Disposition: Home - Self-Care Reason For Visit: CHEST PAIN Discharge Diagnosis: Pericarditis B/l Pleural Effusion: mild to mod Activity: Resume your previous activity Non-emergency contact: Primary Care Provider Call non-emergency contact if: you have any medication questions Follow-up/Referrals: Kalen Ribeiro MD [Primary Care Provider] - (Date & Time 10/24/2020 9:40 AM Provider Kalen Ribeiro MD Department [facility] ) Halley Preston CRNP [Nurse Practitioner] - (Date & Time 10/21/2020 2:00 PM Provider QUINCY Silva Department Cardiology, [facility] ) Diet: Heart Healthy Addtl Attending Provider Instructions: F/u with your PCP in a week's time for reassessment, and for f/u on your mild to moderate pleural effusion. F/u with your heart doctor in 1-2 week's time. Lasix 20 mg daily will be added to your regimen, get CBC and BMP in 3 days, forward it to your PCP. Colchicine 0.6 mg twice daily and prednisone 20 mg po daily are other new meds, f/u with your cardiology in a week's time for further evaluation for this Treatm ent. You might need tapering dose on your steroid in 2-4 weeks depending upon your clinical condition. Pending Studies at Discharge: No Stand-Alone Forms: My [facility], Smoking Cessation Medications and DC Order Prescriptions: New prednisone 20 mg Tablet 20 mg PO DAILY 30 Days Qty: 30 RF: 0 colchicine [Colcrys] 0.6 mg Tablet 0.6 mg PO BID 30 Days Qty: 60 RF: 0 Continued glucosamine-chondroitin [Osteo Bi-Flex] 250-200 mg Tablet 1 tab PO DAILY RF: 0 cholecalciferol (vitamin D3) [Vitamin D3] 50 mcg (2,000 unit) Capsule 50 mcg PO DAILY RF: 0 alendronate 70 mg tablet 70 mg PO WK RF: 0 aspirin 81 mg tablet,chewable 81 mg PO DAILY RF: 0 atorvastatin 20 mg tablet 20 mg PO DAILY RF: 0 levothyroxine 88 mcg tablet 88 mcg PO DAILYBB RF: 0 biotin 1,000 mcg Tablet,Chewable 1,000 mcg PO DAILY RF: 0 latanoprost 0.005 % drops 1 drp OPB HS RF: 0 pantoprazole 40 mg tablet,delayed release (DR/EC) 40 mg PO DAILY RF: 0 metoprolol tartrate 25 mg tablet 12.5 mg PO BID RF: 0 Eliquis 5 mg tablet 5 mg PO BID RF: 0 dorzolamide-timolol 22.3-6.8 mg/mL drops 1 drp ophthalmic (eye) BID RF: 0 cyanocobalamin (vitamin B-12) 500 mcg Tablet 500 mcg PO DAILY RF: 0 Downey-3 Fish Oil 910-1,400 mg Capsule 1 cap PO DAILY RF: 0 Discharge Orders: Discharge Order (Routine); Ordered 10/20/20 Ordered By: Tiffany Be Admission Data Admit Date/Time: 10/19/20 06:17 Attending Provider: Tiffany Be Admit Provider: Ike Ghotra Primary Care Provider: Kalen Ribeiro Other Providers: Jerod Rosales ; Ike Ghotra ; Matt Pinto Other Interventions: Discharge Summary Assessment (RN) Last Done: 10/20/20 13:48
== END 2020-10-20 16:26 | disposition home or self-care (01) | DRG 315 ==
LOC: ED 00:10 → EDINP 06:17 → 2W 13:11
DX: I50.810 Right heart failure, unspecified; E78.5 Hyperlipidemia, unspecified; N18.30 Chronic kidney disease, stage 3 unspecified; Z95.2 Presence of prosthetic heart valve; I31.9 Disease of pericardium, unspecified; J90 Pleural effusion, not elsewhere classified; Z86.711 Personal history of pulmonary embolism; H40.1190 Primary open-angle glaucoma, unspecified eye, stage unspecified

== ENCOUNTER 2021-07-07 10:15 | Inpatient (IN) ==
[2021-07-07] MEDS ORDERED: SODIUM CHLORIDE 0.9% 500 ML IV SCH (11:00)
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
--- NOTE | 2021-07-07 11:30 | XRay Report ---
XR chest 1V portable HISTORY: weakness COMPARISON: Chest 10/19/2020. FINDINGS: No pneumothorax. A cardiac silhouette is normal in size. Cardiac valve stent is noted. No e vidence for pulmonary edema. No focal lung consolidations to suggest pneumonia. Suspect trace bilater al pleural effusions. This has improved in the interval. IMPRESSION: Trace bilateral pleural effusions. Otherwise, no acute process within the chest. ACT 112: Negative or not required by law. Electronically signed by: Arvind Stephens M.D. 07/07/2021 11:28 AM
[2021-07-07 11:31] LABS: Hematocrit (blood only) 38.7 % (37-47); Hemoglobin 12.2 g/dL (12.0-16.0); Mean Corpuscular Hemoglobin 30.5 pg (25-34); Mean Corpuscular Hgb Conc 31.5 g/dL (32-36); Mean Corpuscular Volume 96.8 fL (80-100); Mean Platelet Volume 10.2 fL (7.4-10.4); Platelet Count 211 K/uL (130-400); RDW Coefficient of Variation 16.1 % (11.5-14.5); RDW Standard Deviation 57.2 fL (36.4-46.3); White Blood Count 21.29 K/uL (4.8-10.8)
[2021-07-07] MEDS ORDERED: SODIUM CHLORIDE 0.9% 1000ML 500 ML IV ONE ×2 (11:31→14:30)
[2021-07-07 11:36] LABS: INR 1.1 (0.9-1.1); Partial Thromboplastin Ratio 0.8; Prothrombin Time 11.8 Seconds (9.0-12.0)
[2021-07-07 11:42] LABS: Troponin I High Sensitivity 19.1 pg/ml (0-14)
[2021-07-07 11:53] LABS: Albumin Globulin Ratio 1.8 (0.9-2); Albumin Level 3.8 gm/dl (3.4-5.0); BUN Creatinine Ratio 34.9 (10-20); Calcium 8.8 mg/dl (8.5-10.1); Est GFR (African American) 45.6 ml/min; Est GFR (Non-African American) 39.4 ml/min; Globulin 2.1 gm/dl (2.5-4.0); Magnesium 1.8 mg/dl (1.7-2.4); Potassium 3.8 mmol/L (3.5-5.1); Total Protein 5.9 gm/dl (6.0-8.3)
--- NOTE | 2021-07-07 11:57 | CT Scan Report ---
CT head/brain wo con CLINICAL HISTORY: fall . Dizziness and loss of balance. COMPARISON STUDY: 03/27/2016 CT DOSE: 1906.57 mGycm TECHNIQUE: Standard CT of the Brain was performed without IV contrast. A dose lowering technique was utilized adhering to the principles of ALARA. FINDINGS: Extraaxial space: There is no evidence for subdural hematoma. There are no extra-axial fluid collecti ons. Ventricles and cisterns: The ventricles are mildly dilated bilaterally. There is no evidence for midl ine shift or mass effect. Parenchyma: There is no subarachnoid or intraparenchymal hemorrhage. There is no evidence for an acut e infarct or cerebral edema. There is mild cerebral cortical atrophy and decreased attenuation in the periventricular white matter representing remote small vessel disease. There are no gross mass lesio ns. Osseous structures: There is no evidence for an acute fracture. The visualized paranasal sinuses are clear. The mastoid air cells are clear bilaterally. Soft tissues: There is no evidence for focal soft tissue swelling. IMPRESSION: 1. No acute intracerebral pathology. 2. Atrophy and remote small vessel disease. ACT 112: Negative or not required by law. Electronically signed by: Eliecer Pablo M.D. 07/07/2021 11:55 AM
[2021-07-07 12:01] LABS: ANC (manual) 17.14 K/uL (1.4-6.5); Basophils # (manual) 0.36 K/uL (0-0.2); Basophils % (manual) 1.7 %; Lymphocytes % (manual) 12.7 %; Monocytes # (manual) 1.09 K/uL (0.11-0.59); Monocytes % (manual) 5.1 %; Neutrophils # (manual) 17.14 K/uL (1.4-6.5); Neutrophils % (manual) 80.5 %; RBC Morphology Unremarkable
--- NOTE | 2021-07-07 12:03 | CT Scan Report ---
CT abd pelvis wo con CLINICAL HISTORY: Patient reports history of recent plaque tarry stools COMPARISON STUDY: No previous studies for comparison. CT DOSE: TECHNIQUE: Standard CT of the Abdomen and Pelvis was performed without IV contrast. The patient did not receive oral contrast. A dose lowering technique was utilized adhering to the principles of XI Rose. FINDINGS: Lung base: The lung bases are clear. There is evidence for previous aortic valve replacement. Abdominal cavity: There is no evidence for abdominal mass, adenopathy or ascites. Liver: The liver is homogeneous in attenuation on these limited noncontrast images.. Spleen: The spleen is homogeneous in attenuation on these limited noncontrast images. Pancreas: The pancreas is homogeneous in attenuation on these limited noncontrast images. Gall Bladder: The gallbladder is well distended with no evidence for cholelithiasis, wall thickening or pericholecystic edema.. Adrenal glands: The adrenal glands are normal in size and attenuation on these limited noncontrast im ages. Kidneys: The kidneys are homogeneous in attenuation on these limited noncontrast images. There is no evidence for gross renal mass, calculus or hydronephrosis bilaterally. Bowel: There is no evidence for increased attenuation within the bowel to suggest active hemorrhage. The bowel loops are normally placed within the abdomen and pelvis without evidence for dilatation or obstruction. There is no evidence for mass lesion. There is sigmoid diverticulosis without evidence f or diverticulitis. There are no inflammatory changes present. There is no evidence for free air. Ther e is a normal appendix in the right lower quadrant. Bladder: There is distention of the bladder with no evidence for focal bladder wall thickening, calcu charmaine or diverticulum. : There is no evidence for pelvic mass or adenopathy. Vasculature: There is no evidence for focal aneurysmal dilatation of the abdominal aorta. Atheroscler otic calcification is present. Osseous structures: There is no acute osseous pathology. Extensive degenerative changes are seen with in the spine. IMPRESSION: 1. No CT findings suspicious for active GI bleeding. 2. Sigmoid diverticulosis without evidence for diverticulitis. 3. No other evidence for acute intra-abdominal or pelvic abnormality on these limited noncontrast mayo ges. 4. Additional nonacute findings are delineated above. ACT 112: Negative or not required by law. Electronically signed by: Eliecer Pablo M.D. 07/07/2021 12:01 PM
--- NOTE | 2021-07-07 12:16 | CT Scan Report ---
CERVICAL SPINE CT CT DOSE: HISTORY: fall TECHNIQUE: Multiaxial CT images of the cervical spine were performed and reformatted in the sagittal and coronal plane without the use of contrast. A dose lowering technique was utilized adhering to th e principles of ALARA. COMPARISON: None. FINDINGS: No fractures within the cervical spine. Severe disc space narrowing at C4-C7. No subluxatio n. Prevertebral soft tissues and the C1-C2 interval are intact. No pneumothorax. IMPRESSION: No fractures within the cervical spine. ACT 112: Negative or not required by law. Electronically signed by: Arvind Stephens M.D. 07/07/2021 12:13 PM
--- NOTE | 2021-07-07 13:51 | Electrocardiogram Report ---
Test Reason : Blood Pressure : / mmHG Vent. Rate : 057 BPM Atrial Rate : 057 BPM P-R Int : 134 ms QRS Dur : 088 ms QT Int : 428 ms P-R-T Axes : 040 037 063 degrees QTc Int : 416 ms Sinus bradycardia Otherwise normal ECG When compared with ECG of 19-OCT-2020 00:26, Nonspecific T wave abnormality no longer evident in Inferior leads T wave inversion no longer evident in Anterior leads Confirmed by Shorty Barnett ([id number]) on 07/07/2021 1:51:40 PM Referred By: REFERRED SELF Confirmed By:Shorty Barnett
[2021-07-07] MEDS ORDERED: PIPERACILLIN/TAZOBACTAM 4.5 GM/120 ML BAG IV ONE (16:18)
[2021-07-07] MEDS ORDERED: SODIUM CHLORIDE 0.9% 1000ML 1,000 ML IV ONE (16:18)
[2021-07-07] MEDS ORDERED: PIPERACILL/TAZOBAC CONSULT ACTIVE PRN (16:18)
[2021-07-07 17:34] LABS: Appearance Urine Clear (Clear); Bacteria Urine Automated Negative (Negative); Bilirubin Urine Negative (Negative); Blood Urine Trace (Negative); Color Urine Yellow; Epithelial Cell Urine Auto 20-30 /lpf (0-5); Glucose Urine UA Negative (Negative); Ketones Urine Negative (Negative); Leukocyte Esterase Urine Trace (Negative); Nitrite Urine Negative (Negative); Protein Urine Negative (Negative); Specific Gravity Urine 1.017 (1.000-1.030); Urobilinogen Urine Negative (Negative)
[2021-07-07] MEDS ORDERED: CONSULT PHARMACY STA ×2 (18:16→19:19)
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
[2021-07-07] MEDS ORDERED: SODIUM CHLORIDE 0.9% 1000ML 1,000 ML IV SCH (20:00)
[2021-07-07 20:16] LABS: Hematocrit (blood only) 26.4 % (37-47); Hemoglobin 8.5 g/dL (12.0-16.0)
[2021-07-07] MEDS ORDERED: PANTOPRAZOLE BOLUS/DRIP 1 EA IV STA (20:25)
[2021-07-07] MEDS ORDERED: SODIUM CHLORIDE 0.9% 250 ML IV PRN (20:26)
[2021-07-07 20:31] LABS: C Reactive Protein 2.32 mg/dl (0-0.5)
[2021-07-07] MEDS ORDERED: ACETAMINOPHEN 325 MG TAB PO PRN (20:39)
[2021-07-07] MEDS ORDERED: POLYETHYLENE (MIRALAX) 17 GM PACK PO PRN (20:39)
[2021-07-07] MEDS ORDERED: PANTOprazole 80 MG in DEXTROSE 5% 100 ML IV ONE (20:45)
[2021-07-07] MEDS ORDERED: VANCOMYCIN CONSULT ACTIVE PRN (20:50)
[2021-07-07] MEDS ORDERED: VANCOMYCIN HCL 1,250 MG in SODIUM CHLORIDE 0.9% 250 ML IV STA (20:53)
--- NOTE | 2021-07-07 21:12 | Pharmacy Report ---
Pharmacy Vanc AUC Short Note - Date of Service July 07, 2021 - Assessment & Plan Assessment 81 year old F receiving IV Vancomycin and Zosyn for treatment of empiric, possible UTI. Day # 1 of antimicrobial therapy. * Potential APARNA? sCr = 1.29 mg/dL with estimated CrCl ~25 mL/min. Baseline sCr possibly ~0.7 mg/dL? Plan Vancomycin * Give Vancomycin 1250mg (~24mg/kg) IV x 1 as a loading dose * AUC/PAMELA is the preferred PK/PD target for vancomycin * AUC guided dosing is effective and associated with decreased risk of nephrotoxicity compared to traditional trough targets * According to [facility], Vancomycin 750mg IV q24 is predicted to achieve target AUC/PAMELA of 400-600 mg/L.hr and may be associated with a 11 % risk of nephrotoxicity * If Vancomycin is continued >48 hours, will order trough to reassess dosing regimen at that time Pharmacy will continue to follow and will adjust dose/frequency as necessary. Thank you.
[2021-07-07] MEDS: METOPROLOL TARTRATE 25 MG TAB PO SCH (21:19)
[2021-07-07] MEDS: DORZOLAMIDE/TIMOLOL 22.3/6.8MG/ML 10 ML BTL OP SCH (21:54)
[2021-07-07] MEDS: LATANOPROST 0.005% OP SOLN 2.5 ML BTL OPB SCH (21:54)
[2021-07-07] MEDS: ATORVASTATIN 20 MG TAB PO SCH (21:55)
[2021-07-07] MEDS: PANTOprazole 40 MG in DEXTROSE 5% 100 ML IV SCH (22:11)
[2021-07-07] MEDS: PIPERACILLIN/TAZOBACTAM 3.375 GM in DEXTROSE 5% 100 ML IV SCH (23:43)
[2021-07-07] MEDS ORDERED: D5W AND NSS 1,000 ML IV SCH (23:55)
[2021-07-08] MEDS: PANTOprazole 40 MG in DEXTROSE 5% 100 ML IV SCH ×3 (02:38→11:44)
[2021-07-08] MEDS: PIPERACILLIN/TAZOBACTAM 3.375 GM in DEXTROSE 5% 100 ML IV SCH ×2 (05:53→14:41)
[2021-07-08] MEDS: LEVOTHYROXINE SODIUM 88 MCG TABLET PO SCH (05:56)
[2021-07-08] MEDS: METOPROLOL TARTRATE 25 MG TAB PO SCH ×2 (09:11→20:37)
[2021-07-08] MEDS: DORZOLAMIDE/TIMOLOL 22.3/6.8MG/ML 10 ML BTL OP SCH ×2 (09:11→20:41)
[2021-07-08] MEDS: predniSONE 20 MG TAB PO SCH (09:11)
[2021-07-08 09:25] LABS: Hematocrit (blood only) 21.9 % (37-47); Hemoglobin 7.2 g/dL (12.0-16.0); Mean Corpuscular Hemoglobin 30.5 pg (25-34); Mean Corpuscular Hgb Conc 32.9 g/dL (32-36); Mean Corpuscular Volume 92.8 fL (80-100); Mean Platelet Volume 9.3 fL (7.4-10.4); Platelet Count 122 K/uL (130-400); RDW Coefficient of Variation 16.2 % (11.5-14.5); RDW Standard Deviation 55.5 fL (36.4-46.3); Red Blood Count 2.36 M/uL (4.2-5.4); White Blood Count 12.64 K/uL (4.8-10.8)
[2021-07-08 09:51] LABS: ALC (manual) 1.21 K/uL (1.2-3.4); ANC (manual) 11.09 K/uL (1.4-6.5); Eosinophils # (manual) 0.11 K/uL (0-0.5); Eosinophils % (manual) 0.9 %; Lymphocytes # (manual) 1.21 K/uL (1.2-3.4); Lymphocytes % (manual) 9.6 %; Monocytes # (manual) 0.23 K/uL (0.11-0.59); Monocytes % (manual) 1.8 %; Neutrophils # (manual) 11.09 K/uL (1.4-6.5); Neutrophils % (manual) 87.7 %; Polychromasia 1+
[2021-07-08 10:04] LABS: BUN Creatinine Ratio 33.6 (10-20); Creatinine Clr Calc Pharmacy 27.7 ml/min; Est GFR (African American) 51.9 ml/min; Est GFR (Non-African American) 44.7 ml/min; Potassium 3.8 mmol/L (3.5-5.1)
[2021-07-08] MEDS ORDERED: SODIUM CHLORIDE 0.9% 250 ML IV PRN (10:38)
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
[2021-07-08] MEDS ORDERED: ATROPINE SULFATE 0.1 MG/ML 10ML SYR IV PRN (13:40)
[2021-07-08] MEDS ORDERED: ePHEDrine sulfate 50 MG/ML AMP IV PRN (13:40)
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
[2021-07-08] MEDS ORDERED: PROPOFOL IV EMULSION 10 MG/ML 20 ML VIAL IV ONE (13:44)
--- NOTE | 2021-07-08 14:24 | Anesthesiology Progress Note ---
Date of Service July 08, 2021 Anesthesia Post Procedure Vital Signs Vital Signs: Temp Pulse Pulse Resp BP BP Pulse Ox 07/08/21 14:20 58 L 19 100/55 L 100 07/08/21 14:10 56 L 22 95/51 L 100 07/08/21 14:04 36.1 C L 58 L 22 85/48 L 100 07/08/21 13:00 37.2 C 61 16 108/52 L 98 07/08/21 11:44 37.1 C 72 16 108/56 L 98 07/08/21 11:29 37 C 59 L 14 97/46 L 99 07/08/21 11:14 37 C 72 16 122/57 L 97 07/08/21 08:26 36.5 C 71 18 114/57 L 93 07/08/21 08:00 67 07/08/21 03:58 36.5 C 75 16 103/58 L 100 07/07/21 23:41 36.5 C 75 18 96/67 L 97 07/07/21 22:20 69 07/07/21 22:15 84 07/07/21 20:49 36.5 C 85 20 88/59 L 98 07/07/21 19:17 36.6 C 76 18 107/57 L 99 07/07/21 18:00 74 18 78/56 L 99 07/07/21 16:00 63 18 81/61 L 94 07/07/21 14:30 58 L 16 97 Transfer of Care Handoff Completed per policy Notes Mental Status: alert / awake / arousable and participated in evaluation Patient Amnestic to Procedure: Yes Nausea / Vomiting: adequately controlled Pain: adequately controlled Airway Patency, RR, SpO2: stable & adequate BP & HR: stable & adequate Hydration State: stable & adequate Anesthetic Complications: no major complications apparent and Pt Satisfied with anesthetic care
--- NOTE | 2021-07-08 14:35 | GI REPORT ---
Patient Name: Marie Nieves Procedure Date: 07/08/2021 1:38 PM Date of : 1940 Admit Type: Inpatient Age: 81 Gender: Female Attending MD: Omi Hall DO Procedure: Upper GI endoscopy Providers: Omi Hall DO Referring MD: Angelica Viramontes Indications: Acute post hemorrhagic anemia Medicines: Monitored Anesthesia Care Complications: No immediate complications. Estimated Blood Loss: Estimated blood loss: none. Procedure: Pre-Anesthesia Assessment: - Prior to the procedure, a History and Physical was performed, and patient medications and allergies were reviewed. The patient's tolerance of previous anesthesia was also reviewed. The risks and benefits of the procedure and the sedation options and risks were discussed with the patient. All questions were answered, and informed consent was obtained. Prior Anticoagulants: The patient has taken Eliquis (apixaban), last dose was 2 days prior to procedure. ASA Grade Assessment: E - Emergency. After reviewing the risks and benefits, the patient was deemed in satisfactory condition to undergo the procedure. After obtaining informed consent, the endoscope was passed under direct vision. Throughout the procedure, the patient's blood pressure, pulse, and oxygen saturations were monitored continuously. The Endoscope was introduced through the mouth, and advanced to the third part of duodenum. The upper GI endoscopy was accomplished without difficulty. The patient tolerated the procedure well. Findings: The esophagus was normal. Localized mild inflammation characterized by erythema was found on the greater curvature of the stomach. The examined duodenum was normal. Impression: - Normal esophagus. - Gastritis. - Normal examined duodenum. - No specimens collected. Recommendation: - [facility]. - Advance diet as tolerated. - Continue present medications. - No recent or active GI bleeding noted. - Blood loss could be secondary to large hematoma no buttocks. Omi Hall DO 07/08/2021 2:35:06 PM This report has been signed electronically. Note Initiated On: 07/08/2021 1:38 PM Number of Addenda: 0 I attest to the content of the Intraoperative Record and orders documented therein, exceptions below {[id number]}
--- NOTE | 2021-07-08 15:19 | Hospitalist Progress Note ---
Date of Service July 08, 2021 Assessment & Plan (1) Lightheadedness: Plan: Secondary to acute blood loss anemia with postural hypotension (2) Hematoma: Plan: [place] lightheaded on and ended up with a fall on right buttock Remains symptomatic with lightheadedness since then CT scan did show hematoma involving the right gluteal area measuring 7.3 x 4.8 cm Complains to have minimal discomfort Her sudden drop in hemoglobin likely secondary to hematoma She started her Eliquis on Saturday morning and which is on hold now Hemoglobin dropped significantly and she will get 1 unit of blood transfusion today and may be another on tomorrow If the hematoma gets worse will need to get Ortho evaluation We will monitor CBC (3) Acute blood loss anemia: Plan: Recent history of melena Reported black-colored stools 2 weeks ago. Eliquis was held. Patient resumed Eliquis today. Reported brown stools for the past week without any noted melena or hematochezia. Denies abdominal pain In ER reported brown-colored stool, Hemoccult positive Hgb: 12.2. Baseline around 13 Was a started with intravenous Protonix as subsequent hemoglobin dropped Appreciate GI input and recommendation EGD did not show any active bleeding area but it did show mild gastritis Acute blood loss seems to be secondary to hematoma (4) Acute hypotension: Plan: DDX: Sepsis. Unclear source. Possible UTI Made sepsis criteria but seems to be secondary to stress from acute blood loss no evidence of infection has been found yet Patient is 81-year-old female with PMH HTN, HLD, CKD III, history of pericardial effusion, pericarditis, AAS s/p TAVR, history PE, paroxysmal atrial fibrillation on Eliquis, history HIT, hypothyroidism, GERD, iron deficiency anemia presented to ER with complaint of lightheadedness with standing started last evening Today in ER patient afebrile, initial BP 113/72 dropped down to 81/61. Received 2.5 L NSS with BP up to 106/67. No tachycardia, no hypoxia. WBC: 21. Hgb: 12.2. UA: Trace leukocyte Estrace, 20-[address] head and C-spine, no acute findings CXR: no acute infiltrate CT abdomen pelvis No acute findings for active GI bleed, 7.3 x 4.8 cm gluteal hematoma right buttock, no other acute intra-abdominal or pelvic abnormality Obtain lactic acid. Was elevated at 5.4. Continue to trend WBC elevated at 21. Patient been on prednisone for 3 weeks In ER was given Zosyn and vancomycin was started later on Blood cultures pending Urine culture pending We will discontinue vancomycin and continue Zosyn empirically Elevated troponin High-sensitivity troponin: 19. EKG without acute changes. Patient without chest pain or shortness of breath. May be secondary to demand ischemia Trend troponin EKG in a.m.-no significant EKG changes Troponin elevation is secondary to demand ischemia without any evidence of ACS Echo of the heart-LV normal in size with moderate concentric LVH, LV wall motion is normal with hyperdynamic left ventricle with EF 65 to 70%, grade 1 diastolic dysfunction, aortic valve sclerosis without significant aortic stenosis, moderate mitral annular calcification, no mitral valve stenosis and trace MR, mild tricuspid regurgitation and Doppler findings do not suggest pulmonary hypertension and no pericardial effusion or pericardial constriction. CKD III Cr: 1.29. Baseline~1 Monitor renal functions, avoid nephrotoxic agents when possible History of pericarditis History of pericardial effusion Denies chest pain or shortness of breath Recent echo 06/2021 without pericardial effusion Echo did not show any pericardial constriction History of PE No shortness of breath, chest pain. no current hypoxia or tachycardia Hold Eliquis with possible GI bleed History aortic stenosis s/p TAVR with bioprosthetic valve No significant aortic valvular stenosis Paroxysmal atrial fibrillation On Eliquis Current sinus rhythm Hold Eliquis with possible GI bleed Continue metoprolol tartrate with holding parameters HTN Hypotensive in ER. Improved with IVF Hold Lasix Metoprolol tartrate with holding parameters Recent ischemic optic neuritis of right eye Patient had vision loss right eye and followed up with ophthalmology and was diagnosed with ischemic optic neuritis of right eye. PCP concern for possible temporal arteritis and who started her on prednisone 40 mg daily 3 weeks ago. Patient taper down to 20 mg daily for the past week. Denies any headache/temporal pain. Reports vision starting to return to right eye. 06/09/2021 patient carotid Doppler with bilateral internal carotid arteries with less than 50% stenosis. Outpatient 06/09/2021 echo: EF 60%, aortic valve prosthesis systolic gradients borderline elevated, mild mitral vegetation, mild tricuspid regurgitation. Outpatient MRI brain on 06/22/2021 with no acute abnormality. Continue prednisone History HIT GERD Oral PPI converted to IV DVT Prophylaxis SCDs Conditional Code as per discussion with pt. Wants CPR, medications, No intubation or mechanical ventilation Follows with Dr Ribeiro for routine care Pt was seen and care coordinated with Dr Etienne. See addendum (5) Melena: Plan: As above (6) S/P TAVR (transcatheter aortic valve replacement): Plan: No acute cardiac symptoms (7) History of pulmonary embolism: Plan: Has been on Eliquis Eliquis is restarted on Saturday morning Admission and Anticipated Discharge Date Admission Date: July 07, 2021 Subjective 07/08/2021 The patient was seen and examined in telemetry unit She is a status post fall on last She has been complaining of some pain at the right buttock but denies any increasing swelling Denies any chest pain and/or palpitation and no shortness of breath Review of Systems Review of Systems: All systems reviewed and are unremarkable except as noted below Respiratory: No shortness of breath at rest Cardiovascular: Additional Comments: No chest pain and/or palpitation Musculoskeletal: Pain at the right gluteal area and right hip Physical Exam Physical Exam: Lying in bed comfortably and looking pale Constitutional: + ill appearing and average body habitus Eyes: PERRL, conjunctivae normal, anicteric sclerae ENMT: external ear and nose normal, oropharynx normal Neck: trachea midline, no thyromegaly Respiratory: no respiratory distress Auscultation: + diminished lung sounds (At the very bases) Cardiovascular: Rate/Rhythm: regular rate and regular rhythm; not tachycardic Heart Sounds: normal S1, normal S2 and + murmur (2/6 ESM over precordium) Gastrointestinal (Abdomen): Inspection/Auscultation: normal bowel sounds; abdomen not distended Percussion/Palpation: + abdomen tender (Minimally tender epigastrium) and abdomen soft Musculoskeletal: No acute arthritis involving any joint. Minimally tender right gluteal area Neurologic: Alert, awake and oriented x3. No focal sensory or no motor deficit appreciated Psychiatric: A+Ox3, euthymic affect Lymphatic: no cervical or axillary lymphadenopathy Results & Data Results & Data ([facility]) Vital Signs (Past 12 Hours) Vital Signs Temp Pulse Pulse Resp BP BP Pulse Ox 07/08/21 14:56 37.2 C 61 20 107/58 L 100 07/08/21 14:30 36.5 C 57 L 20 96/51 L 100 07/08/21 14:20 58 L 19 100/55 L 100 07/08/21 14:10 56 L 22 95/51 L 100 07/08/21 14:04 36.1 C L 58 L 22 85/48 L 100 07/08/21 13:00 37.2 C 61 16 108/52 L 98 07/08/21 11:44 37.1 C 72 16 108/56 L 98 07/08/21 11:29 37 C 59 L 14 97/46 L 99 07/08/21 11:14 37 C 72 16 122/57 L 97 07/08/21 08:26 36.5 C 71 18 114/57 L 93 07/08/21 08:00 67 07/08/21 03:58 36.5 C 75 16 103/58 L 100 Laboratory Results Short CBC 07/07/21 07/08/21 Range/Units 19:50 09:10 WBC 12.64 H (4.8-10.8) K/uL Hgb 8.5 L D 7.2 L (12.0-16.0) g/dL Hct 26.4 L 21.9 L (37-47) % Plt Count 122 L (130-400) K/uL BMP 07/08/21 09:10 Sodium 137 Potassium 3.8 Chloride 107 Carbon Dioxide 22 BUN 39 H Creatinine 1.16 Glucose 122 H Calcium 7.0 L Urine 07/07/21 Range/Units 17:07 Urine Color Yellow Urine Appearance Clear (Clear) Urine pH 5.0 (4.5-7.5) Ur Specific [place] 1.017 (1.000-1.030) Urine Protein Negative (Negative) Urine Glucose (UA) Negative (Negative) Medications Administered Current Inpatient Medications Acetaminophen (Acetaminophen 325 Mg Tab) 650 mg PO Q4H PRN PRN Reason: Pain or Fever Stop: 08/06/21 20:38 Atorvastatin Calcium (Atorvastatin 20 Mg Tab) 20 mg PO PM ARPITA Stop: 08/06/21 20:59 Last Admin: 07/07/21 21:55 Dose: 20 mg Documented by: Dorzolamide/Timolol (Dorzolamide/Timolol 22.3/6.8mg/Ml 10 Ml Btl) 1 drops OP BID ARPITA Stop: 08/06/21 20:59 Last Admin: 07/08/21 09:11 Dose: 1 drops Documented by: Sodium Chloride (Nss) 250 mls @ 15 mls/hr IV .[id number] PRN PRN Reason: For Transfusion Stop: 07/08/21 20:38 Latanoprost (Latanoprost 0.005% Op Soln 2.5 Ml Btl) 1 drops OPB HS ARPITA Stop: 08/06/21 20:59 Last Admin: 07/07/21 21:54 Dose: 1 drops Documented by: Levothyroxine Sodium (Levothyroxine Sodium 88 Mcg Tablet) 88 mcg PO DAILYBB ARPITA Stop: 08/07/21 06:29 Last Admin: 07/08/21 05:56 Dose: 88 mcg Documented by: Metoprolol Tartrate (Metoprolol Tartrate 25 Mg Tab) 12.5 mg PO BID ARPITA Stop: 08/06/21 20:59 Last Admin: 07/08/21 09:11 Dose: 12.5 mg Documented by: Pantoprazole Sodium (Pantoprazole 40 Mg Tab) 40 mg PO QAM ARPITA Stop: 08/08/21 08:59 Polyethylene Glycol (Polyethylene (Miralax) 17 Gm Pack) 17 gm PO DAILY PRN PRN Reason: Constipation Stop: 08/06/21 20:38 Prednisone (Prednisone 20 Mg Tab) 20 mg PO DAILY [facility] Stop: 08/07/21 08:59 Last Admin: 07/08/21 09:11 Dose: 20 mg Documented by:
[2021-07-08] MEDS: ATORVASTATIN 20 MG TAB PO SCH (20:37)
[2021-07-08] MEDS: LATANOPROST 0.005% OP SOLN 2.5 ML BTL OPB SCH (20:41)
[2021-07-08] MEDS ORDERED: VANCOMYCIN HCL 750 MG in SODIUM CHLORIDE 0.9% 250 ML IV SCH (22:00)
[2021-07-09] MEDS: LEVOTHYROXINE SODIUM 88 MCG TABLET PO SCH (05:56)
[2021-07-09 06:26] LABS: Hematocrit (blood only) 22.5 % (37-47); Hemoglobin 7.5 g/dL (12.0-16.0); Mean Corpuscular Hemoglobin 29.9 pg (25-34); Mean Corpuscular Hgb Conc 33.3 g/dL (32-36); Mean Corpuscular Volume 89.6 fL (80-100); RDW Standard Deviation 65.3 fL (36.4-46.3); Red Blood Count 2.51 M/uL (4.2-5.4); White Blood Count 10.35 K/uL (4.8-10.8)
[2021-07-09 07:01] LABS: Anisocytosis Present; Basophils # (auto) 0.01 K/uL (0-0.2); Basophils % (auto) 0.1 %; Eosinophils # (auto) 0.11 K/uL (0-0.5); Eosinophils % (auto) 1.1 %; Immature Granulocytes # (auto) 0.16 K/uL (0.00-0.02); Immature Granulocytes % (auto) 1.5 %; Lymphocytes # (auto) 1.56 K/uL (1.2-3.4); Lymphocytes % (auto) 15.1 %; Mean Platelet Volume 9.5 fL (7.4-10.4); Monocytes # (auto) 0.75 K/uL (0.11-0.59); Monocytes % (auto) 7.2 %; Neutrophils # (auto) 7.76 K/uL (1.4-6.5); Platelet Count 97 K/uL (130-400); Platelet Estimate Decreased (Normal); Polychromasia 1+
[2021-07-09 07:03] LABS: BUN Creatinine Ratio 27.9 (10-20); Calcium 7.4 mg/dl (8.5-10.1); Creatinine Clr Calc Pharmacy 37.4 ml/min; Est GFR (African American) 74.5 ml/min; Est GFR (Non-African American) 64.3 ml/min; Potassium 3.4 mmol/L (3.5-5.1)
[2021-07-09] MEDS: PANTOprazole 40 MG TAB PO SCH (08:25)
[2021-07-09] MEDS: predniSONE 20 MG TAB PO SCH (08:25)
[2021-07-09] MEDS: METOPROLOL TARTRATE 25 MG TAB PO SCH ×2 (08:25→20:04)
[2021-07-09] MEDS: DORZOLAMIDE/TIMOLOL 22.3/6.8MG/ML 10 ML BTL OP SCH ×2 (08:25→20:04)
[2021-07-09] MEDS ORDERED: POTASSIUM CHLORIDE CRTAB 20 MEQ TABCR PO STA (08:27)
[2021-07-09] MEDS ORDERED: SODIUM CHLORIDE 0.9% 250 ML IV PRN (08:27)
--- NOTE | 2021-07-09 11:30 | Gastroenterology Progress Note ---
Date of Service July 09, 2021 Assessment & Plan (1) Acute blood loss anemia: (2) Hematoma: Plan: Feeling better today No evidence of Overt GI bleeding No abdominal pain Consider Outpatient Colonoscopy when she is discharged Admission and Anticipated Discharge Date Admission Date: July 07, 2021 Subjective She is doing much better today. She denies any BM's overnight. She states that, "my back side hurts where I fell." She denies any abdominal pain. She is tolerating PO intake. No further complaints. Review of Systems Constitutional: as per Subjective / HPI Eyes: as per Subjective / HPI Ear, Nose, Mouth, Throat: as per Subjective / HPI Respiratory: as per Subjective / HPI Cardiovascular: as per Subjective / HPI Gastrointestinal: as per Subjective / HPI Musculoskeletal: as per Subjective / HPI Integumentary: as per Subjective / HPI Neurologic: as per Subjective / HPI Psychiatric: as per Subjective / HPI Endocrine: as per Subjective / HPI Hematologic / Lymphatic: as per Subjective / HPI Allergy / Immunological: as per Subjective / HPI Physical Exam Constitutional: WD/WN, vitals as above Respiratory: normal respiratory effort, lungs clear to auscultation Cardiovascular: RRR, no murmur, no edema Gastrointestinal (Abdomen): normal bowel sounds, soft, nontender, no hepatosplenomegaly Psychiatric: A+Ox3, euthymic affect Results & Data Results & Data ([facility]) Vital Signs (Past 12 Hours) Vital Signs Temp Pulse Pulse Resp BP BP Pulse Ox 07/09/21 10:17 36.5 C 52 L 14 108/57 L 99 07/09/21 10:01 36.4 C L 50 L 16 109/52 L 97 07/09/21 08:10 36.6 C 69 18 108/51 L 100 07/09/21 08:00 52 L 07/09/21 03:55 36.8 C 60 18 103/48 L 100 07/08/21 23:38 36.8 C 66 18 99/47 L 100 PG Care Time/CCT Total # of Minutes Spent Total Time Spent with Patient: Total time spent is greater than 50% in coordination of care (as documented) at patient's floor/unit and/or counseling patient: Coding Level of Care Code 95619 Subseq Hosp Care Lvl 3 Diagnoses Acute blood loss anemia D62 Hematoma T14.8XXA
--- NOTE | 2021-07-09 14:12 | Hospitalist Progress Note ---
Date of Service July 09, 2021 Assessment & Plan (1) Lightheadedness: Plan: Secondary to acute blood loss anemia with postural hypotension We will get PT and OT evaluation (2) Hematoma: Plan: [place] lightheaded on and ended up with a fall on right buttock Remains symptomatic with lightheadedness since then CT scan did show hematoma involving the right gluteal area measuring 7.3 x 4.8 cm Complains to have minimal discomfort Her sudden drop in hemoglobin likely secondary to hematoma She started her Eliquis on Saturday morning and which is on hold now Hemoglobin dropped significantly and she will get 1 unit of blood transfusion today and may be another on tomorrow If the hematoma gets worse will need to get Ortho evaluation We will monitor CBC-hemoglobin remains at 7.4 following 1 unit of blood transfusion Denies any increasing pain or tension in the right gluteal area Will give another unit of blood transfusion today (3) Acute blood loss anemia: Plan: Recent history of melena Reported black-colored stools 2 weeks ago. Eliquis was held. Patient resumed Eliquis today. Reported brown stools for the past week without any noted melena or hematochezia. Denies abdominal pain In ER reported brown-colored stool, Hemoccult positive Hgb: 12.2. Baseline around 13 Was a started with intravenous Protonix as subsequent hemoglobin dropped Appreciate GI input and recommendation EGD did not show any active bleeding area but it did show mild gastritis Acute blood loss seems to be secondary to hematoma Hemoglobin is not up yet we will give another unit of blood transfusion (4) Acute hypotension: Plan: DDX: Sepsis. Unclear source. Possible UTI Made sepsis criteria but seems to be secondary to stress from acute blood loss no evidence of infection has been found yet Patient is 81-year-old female with PMH HTN, HLD, CKD III, history of pericardial effusion, pericarditis, AAS s/p TAVR, history PE, paroxysmal atrial fibrillation on Eliquis, history HIT, hypothyroidism, GERD, iron deficiency anemia presented to ER with complaint of lightheadedness with standing started last evening Today in ER patient afebrile, initial BP 113/72 dropped down to 81/61. Received 2.5 L NSS with BP up to 106/67. No tachycardia, no hypoxia. WBC: 21. Hgb: 12.2. UA: Trace leukocyte Estrace, 20-[address] head and C-spine, no acute findings CXR: no acute infiltrate CT abdomen pelvis No acute findings for active GI bleed, 7.3 x 4.8 cm gluteal hematoma right buttock, no other acute intra-abdominal or pelvic abnormality Obtain lactic acid. Was elevated at 5.4. Continue to trend WBC elevated at 21. Patient been on prednisone for 3 weeks In ER was given Zosyn and vancomycin was started later on Blood cultures pending Urine culture pending We will discontinue vancomycin and continue Zosyn empirically We will get PT and OT evaluation before discharge Elevated troponin High-sensitivity troponin: 19. EKG without acute changes. Patient without chest pain or shortness of breath. May be secondary to demand ischemia Trend troponin EKG in a.m.-no significant EKG changes Troponin elevation is secondary to demand ischemia without any evidence of ACS Echo of the heart-LV normal in size with moderate concentric LVH, LV wall motion is normal with hyperdynamic left ventricle with EF 65 to 70%, grade 1 diastolic dysfunction, aortic valve sclerosis without significant aortic stenosis, moderate mitral annular calcification, no mitral valve stenosis and trace MR, mild tricuspid regurgitation and Doppler findings do not suggest pulmonary hypertension and no pericardial effusion or pericardial constriction. No cardiac symptoms CKD III Cr: 1.29. Baseline~1 Monitor renal functions, avoid nephrotoxic agents when possible Creatinine has been normalized History of pericarditis History of pericardial effusion Denies chest pain or shortness of breath Recent echo 06/2021 without pericardial effusion Echo did not show any pericardial constriction History of PE No shortness of breath, chest pain. no current hypoxia or tachycardia Hold Eliquis with possible GI bleed History aortic stenosis s/p TAVR with bioprosthetic valve No significant aortic valvular stenosis Paroxysmal atrial fibrillation On Eliquis Current sinus rhythm Hold Eliquis with possible GI bleed Continue metoprolol tartrate with holding parameters HTN Hypotensive in ER. Improved with IVF Hold Lasix Metoprolol tartrate with holding parameters Recent ischemic optic neuritis of right eye Patient had vision loss right eye and followed up with ophthalmology and was diagnosed with ischemic optic neuritis of right eye. PCP concern for possible temporal arteritis and who started her on prednisone 40 mg daily 3 weeks ago. Patient taper down to 20 mg daily for the past week. Denies any headache/temporal pain. Reports vision starting to return to right eye. 06/09/2021 patient carotid Doppler with bilateral internal carotid arteries with less than 50% stenosis. Outpatient 06/09/2021 echo: EF 60%, aortic valve prosthesis systolic gradients borderline elevated, mild mitral vegetation, mild tricuspid regurgitation. Outpatient MRI brain on 06/22/2021 with no acute abnormality. Continue prednisone History HIT GERD Oral PPI converted to IV DVT Prophylaxis SCDs Conditional Code as per discussion with pt. Wants CPR, medications, No intubation or mechanical ventilation Follows with Dr Ribeiro for routine care Pt was seen and care coordinated with Dr Etienne. See addendum (5) Melena: Plan: As above (6) S/P TAVR (transcatheter aortic valve replacement): Plan: No acute cardiac symptoms (7) History of pulmonary embolism: Plan: Has been on Eliquis Eliquis is restarted on Saturday morning Admission and Anticipated Discharge Date Admission Date: July 07, 2021 Subjective 07/08/2021 The patient was seen and examined in telemetry unit She is a status post fall on last She has been complaining of some pain at the right buttock but denies any increasing swelling Denies any chest pain and/or palpitation and no shortness of breath 07/09/2021 The patient was seen and examined in telemetry unit She is out of bed on a chair and denies any symptoms Denies any pain or tightness involving the right gluteal region, no chest pain or palpitation or shortness of breath Hemoglobin noted to be at 7.5 with 1 unit of blood transfusion Review of Systems Review of Systems: All systems reviewed and are unremarkable except as noted below Respiratory: No shortness of breath at rest Cardiovascular: Additional Comments: No chest pain and/or palpitation Musculoskeletal: Pain at the right gluteal area and right hip Physical Exam Physical Exam: Lying in bed comfortably and looking pale Constitutional: + ill appearing and average body habitus Eyes: PERRL, conjunctivae normal, anicteric sclerae ENMT: external ear and nose normal, oropharynx normal Neck: trachea midline, no thyromegaly Respiratory: no respiratory distress Auscultation: + diminished lung sounds (At the very bases) Cardiovascular: Rate/Rhythm: regular rate and regular rhythm; not tachycardic Heart Sounds: normal S1, normal S2 and + murmur (2/6 ESM over precordium) Gastrointestinal (Abdomen): Inspection/Auscultation: normal bowel sounds; abdomen not distended Percussion/Palpation: + abdomen tender (Minimally tender epigastrium) and abdomen soft Musculoskeletal: No acute arthritis in any joint Neurologic: Alert, awake and oriented x3. Generally weak but no focal neurodeficit Psychiatric: A+Ox3, euthymic affect Lymphatic: no cervical or axillary lymphadenopathy Results & Data Results & Data ([facility]) Vital Signs (Past 12 Hours) Vital Signs Temp Pulse Pulse Resp BP BP Pulse Ox 07/09/21 13:00 36.7 C 07/09/21 12:29 36.8 C 52 L 16 108/67 97 07/09/21 10:17 36.5 C 52 L 14 108/57 L 99 07/09/21 10:01 36.4 C L 50 L 16 109/52 L 97 07/09/21 08:10 36.6 C 69 18 108/51 L 100 07/09/21 08:00 52 L 07/09/21 03:55 36.8 C 60 18 103/48 L 100 Laboratory Results Short CBC 07/09/21 Range/Units 05:49 WBC 10.35 (4.8-10.8) K/uL Hgb 7.5 L (12.0-16.0) g/dL Hct 22.5 L (37-47) % Plt Count 97 L (130-400) K/uL BMP 07/09/21 05:49 Sodium 141 Potassium 3.4 L Chloride 113 H Carbon Dioxide 25 BUN 24 H Creatinine 0.86 D Glucose 92 Calcium 7.4 L Medications Administered Current Inpatient Medications Acetaminophen (Acetaminophen 325 Mg Tab) 650 mg PO Q4H PRN PRN Reason: Pain or Fever Stop: 08/06/21 20:38 Atorvastatin Calcium (Atorvastatin 20 Mg Tab) 20 mg PO PM [facility]PITA Stop: 08/06/21 20:59 Last Admin: 07/08/21 20:37 Dose: 20 mg Documented by: Dorzolamide/Timolol (Dorzolamide/Timolol 22.3/6.8mg/Ml 10 Ml Btl) 1 drops OP BID ARPITA Stop: 08/06/21 20:59 Last Admin: 07/09/21 08:25 Dose: 1 drops Documented by: Sodium Chloride (Nss) 250 mls @ 15 mls/hr IV .[id number] PRN PRN Reason: For Transfusion Stop: 07/09/21 18:27 Latanoprost (Latanoprost 0.005% Op Soln 2.5 Ml Btl) 1 drops OPB HS [facility] Stop: 08/06/21 20:59 Last Admin: 07/08/21 20:41 Dose: 1 drops Documented by: Levothyroxine Sodium (Levothyroxine Sodium 88 Mcg Tablet) 88 mcg PO DAILYBB [facility] Stop: 08/07/21 06:29 Last Admin: 07/09/21 05:56 Dose: 88 mcg Documented by: Metoprolol Tartrate (Metoprolol Tartrate 25 Mg Tab) 12.5 mg PO BID [facility] Stop: 08/06/21 20:59 Last Admin: 07/09/21 08:25 Dose: 12.5 mg Documented by: Pantoprazole Sodium (Pantoprazole 40 Mg Tab) 40 mg PO QAM [facility] Stop: 08/08/21 08:59 Last Admin: 07/09/21 08:25 Dose: 40 mg Documented by: Polyethylene Glycol (Polyethylene (Miralax) 17 Gm Pack) 17 gm PO DAILY PRN PRN Reason: Constipation Stop: 08/06/21 20:38 Prednisone (Prednisone 20 Mg Tab) 20 mg PO DAILY [facility] Stop: 08/07/21 08:59 Last Admin: 07/09/21 08:25 Dose: 20 mg Documented by:
[2021-07-09] MEDS: ATORVASTATIN 20 MG TAB PO SCH (20:04)
[2021-07-09] MEDS: LATANOPROST 0.005% OP SOLN 2.5 ML BTL OPB SCH (20:04)
[2021-07-10] MEDS: LEVOTHYROXINE SODIUM 88 MCG TABLET PO SCH (06:03)
--- NOTE | 2021-07-10 06:11 | Electrocardiogram Report ---
Test Reason : Blood Pressure : / mmHG Vent. Rate : 073 BPM Atrial Rate : 073 BPM P-R Int : 132 ms QRS Dur : 070 ms QT Int : 398 ms P-R-T Axes : 065 051 070 degrees QTc Int : 438 ms Normal sinus rhythm Normal ECG When compared with ECG of 07-JUL-2021 10:21, No significant change was found Confirmed by Terry Darby ([id number]) on 07/10/2021 6:11:12 AM Referred By: REFERRED SELF Confirmed By:Terry Darby
--- NOTE | 2021-07-10 06:19 | Electrocardiogram Report ---
Test Reason : Blood Pressure : / mmHG Vent. Rate : 068 BPM Atrial Rate : 068 BPM P-R Int : 142 ms QRS Dur : 074 ms QT Int : 376 ms P-R-T Axes : 067 044 103 degrees QTc Int : 399 ms Normal sinus rhythm Nonspecific T wave abnormality Abnormal ECG When compared with ECG of 07-JUL-2021 19:42, (unconfirmed) Nonspecific T wave abnormality now evident in Inferior leads Nonspecific T wave abnormality now evident in Lateral leads Confirmed by Terry Darby ([id number]) on 07/10/2021 6:19:24 AM Referred By: REFERRED SELF Confirmed By:Terry Darby
[2021-07-10 06:45] LABS: Hematocrit (blood only) 29.1 % (37-47); Hemoglobin 9.8 g/dL (12.0-16.0); Mean Corpuscular Hemoglobin 29.9 pg (25-34); Mean Corpuscular Hgb Conc 33.7 g/dL (32-36); Mean Corpuscular Volume 88.7 fL (80-100); Nucleated RBC # (auto) 0.05 K/uL (0-0); Nucleated RBC % (auto) 0.5 %; RDW Coefficient of Variation 18.2 % (11.5-14.5); Red Blood Count 3.28 M/uL (4.2-5.4); White Blood Count 9.37 K/uL (4.8-10.8)
[2021-07-10 06:58] LABS: Mean Platelet Volume 9.7 fL (7.4-10.4); Platelet Count 99 K/uL (130-400)
[2021-07-10 07:10] LABS: BUN Creatinine Ratio 23.9 (10-20); Calcium 7.8 mg/dl (8.5-10.1); Est GFR (African American) 72.4 ml/min; Est GFR (Non-African American) 62.5 ml/min; Magnesium 1.9 mg/dl (1.7-2.4); Potassium 3.7 mmol/L (3.5-5.1)
[2021-07-10 07:13] LABS: Basophils # (auto) 0.02 K/uL (0-0.2); Basophils % (auto) 0.2 %; Eosinophils # (auto) 0.09 K/uL (0-0.5); Immature Granulocytes # (auto) 0.13 K/uL (0.00-0.02); Immature Granulocytes % (auto) 1.4 %; Lymphocytes # (auto) 1.42 K/uL (1.2-3.4); Lymphocytes % (auto) 15.2 %; Monocytes % (auto) 6.4 %; Neutrophils # (auto) 7.11 K/uL (1.4-6.5); Neutrophils % (auto) 75.8 %; Polychromasia 1+
[2021-07-10] MEDS: predniSONE 20 MG TAB PO SCH (08:35)
[2021-07-10] MEDS: DORZOLAMIDE/TIMOLOL 22.3/6.8MG/ML 10 ML BTL OP SCH (08:35)
[2021-07-10] MEDS: METOPROLOL TARTRATE 25 MG TAB PO SCH (08:36)
[2021-07-10] MEDS: PANTOprazole 40 MG TAB PO SCH (08:36)
--- NOTE | 2021-07-10 11:26 | Hospitalist Progress Note ---
Date of Service July 10, 2021 Assessment & Plan (1) Lightheadedness: Plan: Secondary to acute blood loss anemia with postural hypotension Appreciate PT and OT evaluation with recommendation to go home at discharge She will be discharged today Strongly advised to take precaution to avoid falls (2) Hematoma: Plan: [place] lightheaded on and ended up with a fall on right buttock Remains symptomatic with lightheadedness since then CT scan did show hematoma involving the right gluteal area measuring 7.3 x 4.8 cm Complains to have minimal discomfort Her sudden drop in hemoglobin likely secondary to hematoma She started her Eliquis on Saturday morning and which is on hold now Hemoglobin dropped significantly and she will get 1 unit of blood transfusion today and may be another on tomorrow If the hematoma gets worse will need to get Ortho evaluation We will monitor CBC-hemoglobin remains at 7.4 following 1 unit of blood transfusion Denies any increasing pain or tension in the right gluteal area Will give another unit of blood transfusion today Hemoglobin remains stable at 9.8 and no evidence of ongoing bleeding and the patient denies any symptoms (3) Acute blood loss anemia: Plan: Recent history of melena Reported black-colored stools 2 weeks ago. Eliquis was held. Patient resumed Eliquis today. Reported brown stools for the past week without any noted melena or hematochezia. Denies abdominal pain In ER reported brown-colored stool, Hemoccult positive Hgb: 12.2. Baseline around 13 Was a started with intravenous Protonix as subsequent hemoglobin dropped Appreciate GI input and recommendation EGD did not show any active bleeding area but it did show mild gastritis Acute blood loss seems to be secondary to hematoma Hemoglobin is not up yet we will give another unit of blood transfusion Hemoglobin went up to 9.8 No evidence of continued bleeding GI recommended outpatient colonoscopy (4) Acute hypotension: Plan: DDX: Sepsis. Unclear source. Possible UTI Made sepsis criteria but seems to be secondary to stress from acute blood loss no evidence of infection has been found yet Patient is 81-year-old female with PMH HTN, HLD, CKD III, history of pericardial effusion, pericarditis, AAS s/p TAVR, history PE, paroxysmal atrial fibrillation on Eliquis, history HIT, hypothyroidism, GERD, iron deficiency anemia presented to ER with complaint of lightheadedness with standing started last evening Today in ER patient afebrile, initial BP 113/72 dropped down to 81/61. Received 2.5 L NSS with BP up to 106/67. No tachycardia, no hypoxia. WBC: 21. Hgb: 12.2. UA: Trace leukocyte Estrace, 20-[address] head and C-spine, no acute findings CXR: no acute infiltrate CT abdomen pelvis No acute findings for active GI bleed, 7.3 x 4.8 cm gluteal hematoma right buttock, no other acute intra-abdominal or pelvic abnormality Obtain lactic acid. Was elevated at 5.4. Continue to trend WBC elevated at 21. Patient been on prednisone for 3 weeks In ER was given Zosyn and vancomycin was started later on Blood cultures pending Urine culture pending We will discontinue vancomycin and continue Zosyn empirically We will get PT and OT evaluation before discharge Blood pressure remains stable Elevated troponin High-sensitivity troponin: 19. EKG without acute changes. Patient without chest pain or shortness of breath. May be secondary to demand ischemia Trend troponin EKG in a.m.-no significant EKG changes Troponin elevation is secondary to demand ischemia without any evidence of ACS Echo of the heart-LV normal in size with moderate concentric LVH, LV wall motion is normal with hyperdynamic left ventricle with EF 65 to 70%, grade 1 diastolic dysfunction, aortic valve sclerosis without significant aortic stenosis, moderate mitral annular calcification, no mitral valve stenosis and trace MR, mild tricuspid regurgitation and Doppler findings do not suggest pulmonary hypertension and no pericardial effusion or pericardial constriction. No cardiac symptoms CKD III Cr: 1.29. Baseline~1 Monitor renal functions, avoid nephrotoxic agents when possible Creatinine has been normalized History of pericarditis History of pericardial effusion Denies chest pain or shortness of breath Recent echo 06/2021 without pericardial effusion Echo did not show any pericardial constriction History of PE No shortness of breath, chest pain. no current hypoxia or tachycardia Hold Eliquis with possible GI bleed History aortic stenosis s/p TAVR with bioprosthetic valve No significant aortic valvular stenosis Paroxysmal atrial fibrillation On Eliquis Current sinus rhythm Hold Eliquis with possible GI bleed Continue metoprolol tartrate with holding parameters Will hold Eliquis for now and further decision regarding readministration of Eliquis will be done by the laborer demolition as an outpatient HTN Hypotensive in ER. Improved with IVF Hold Lasix Metoprolol tartrate with holding parameters Recent ischemic optic neuritis of right eye Patient had vision loss right eye and followed up with ophthalmology and was diagnosed with ischemic optic neuritis of right eye. PCP concern for possible temporal arteritis and who started her on prednisone 40 mg daily 3 weeks ago. Patient taper down to 20 mg daily for the past week. Denies any headache/temporal pain. Reports vision starting to return to right eye. 06/09/2021 patient carotid Doppler with bilateral internal carotid arteries with less than 50% stenosis. Outpatient 06/09/2021 echo: EF 60%, aortic valve prosthesis systolic gradients borderline elevated, mild mitral vegetation, mild tricuspid regurgitation. Outpatient MRI brain on 06/22/2021 with no acute abnormality. Continue prednisone History HIT GERD Oral PPI converted to IV DVT Prophylaxis SCDs Conditional Code as per discussion with pt. Wants CPR, medications, No intubation or mechanical ventilation Follows with Dr Ribeiro for routine care Will be discharged home this afternoon (5) Melena: Plan: As above (6) S/P TAVR (transcatheter aortic valve replacement): Plan: No acute cardiac symptoms (7) History of pulmonary embolism: Plan: Has been on Eliquis Eliquis is restarted on Saturday morning Admission and Anticipated Discharge Date Admission Date: July 07, 2021 Subjective 07/08/2021 The patient was seen and examined in telemetry unit She is a status post fall on last She has been complaining of some pain at the right buttock but denies any increasing swelling Denies any chest pain and/or palpitation and no shortness of breath 07/09/2021 The patient was seen and examined in telemetry unit She is out of bed on a chair and denies any symptoms Denies any pain or tightness involving the right gluteal region, no chest pain or palpitation or shortness of breath Hemoglobin noted to be at 7.5 with 1 unit of blood transfusion 07/10/2021 The patient was seen and examined in telemetry unit She has been feeling a lot better and denies any symptoms Her hemoglobin remained stable and wants to go home Did denies any increasing swelling, pain or discomfort involving the right gluteal area Review of Systems Review of Systems: All systems reviewed and are unremarkable except as noted below Respiratory: No shortness of breath at rest Cardiovascular: Additional Comments: No chest pain and/or palpitation Musculoskeletal: Pain at the right gluteal area and right hip Physical Exam Physical Exam: Lying in bed comfortably and looking pale Constitutional: + ill appearing and average body habitus Eyes: PERRL, conjunctivae normal, anicteric sclerae ENMT: external ear and nose normal, oropharynx normal Neck: trachea midline, no thyromegaly Respiratory: no respiratory distress Auscultation: + diminished lung sounds (At the very bases) Cardiovascular: Rate/Rhythm: regular rate and regular rhythm; not tachycardic Heart Sounds: normal S1, normal S2 and + murmur (2/6 ESM over precordium) Gastrointestinal (Abdomen): Inspection/Auscultation: normal bowel sounds; abdomen not distended Percussion/Palpation: + abdomen tender (Minimally tender epigastrium) and abdomen soft Musculoskeletal: No acute arthritis in any joint Neurologic: .Alert, awake and oriented x3, no focal sensory and motor deficit appreciated Psychiatric: A+Ox3, euthymic affect Lymphatic: no cervical or axillary lymphadenopathy Results & Data Results & Data ([facility]) Vital Signs (Past 12 Hours) Vital Signs Temp Pulse Pulse Resp BP Pulse Ox 07/10/21 08:00 36.6 C 51 L 68 16 120/61 99 07/10/21 04:05 36.7 C 59 L 17 129/67 94 07/09/21 23:37 36.9 C 55 L 18 123/61 99 Laboratory Results Short CBC 07/10/21 Range/Units 06:19 WBC 9.37 (4.8-10.8) K/uL Hgb 9.8 L (12.0-16.0) g/dL Hct 29.1 L (37-47) % Plt Count 99 L (130-400) K/uL BMP 07/10/21 06:19 Sodium 142 Potassium 3.7 Chloride 112 H Carbon Dioxide 26 BUN 21 Creatinine 0.88 Glucose 86 Calcium 7.8 L Medications Administered Current Inpatient Medications Acetaminophen (Acetaminophen 325 Mg Tab) 650 mg PO Q4H PRN PRN Reason: Pain or Fever Stop: 08/06/21 20:38 Atorvastatin Calcium (Atorvastatin 20 Mg Tab) 20 mg PO PM [facility] Stop: 08/06/21 20:59 Last Admin: 07/09/21 20:04 Dose: 20 mg Documented by: Dorzolamide/Timolol (Dorzolamide/Timolol 22.3/6.8mg/Ml 10 Ml Btl) 1 drops OP BID [facility] Stop: 08/06/21 20:59 Last Admin: 07/10/21 08:35 Dose: 1 drops Documented by: Latanoprost (Latanoprost 0.005% Op Soln 2.5 Ml Btl) 1 drops OPB HS [facility] Stop: 08/06/21 20:59 Last Admin: 07/09/21 20:04 Dose: 1 drops Documented by: Levothyroxine Sodium (Levothyroxine Sodium 88 Mcg Tablet) 88 mcg PO DAILYBB [facility] Stop: 08/07/21 06:29 Last Admin: 07/10/21 06:03 Dose: 88 mcg Documented by: Metoprolol Tartrate (Metoprolol Tartrate 25 Mg Tab) 12.5 mg PO BID [facility] Stop: 08/06/21 20:59 Last Admin: 07/10/21 08:36 Dose: 12.5 mg Documented by: Pantoprazole Sodium (Pantoprazole 40 Mg Tab) 40 mg PO QAM [facility] Stop: 08/08/21 08:59 Last Admin: 07/10/21 08:36 Dose: 40 mg Documented by: Polyethylene Glycol (Polyethylene (Miralax) 17 Gm Pack) 17 gm PO DAILY PRN PRN Reason: Constipation Stop: 08/06/21 20:38 Prednisone (Prednisone 20 Mg Tab) 20 mg PO DAILY [facility] Stop: 08/07/21 08:59 Last Admin: 07/10/21 08:35 Dose: 20 mg Documented by:
--- NOTE | 2021-07-11 07:27 | Discharge Summary ---
Date of Service July 11, 2021 Admission HPI Per Admitting Provider Patient is 81-year-old female with PMH HTN, HLD, CKD III, history of pericardial effusion, pericarditis, AAS s/p TAVR, history PE, paroxysmal atrial fibrillation on Eliquis, history HIT, hypothyroidism, GERD, iron deficiency anemia presented to ER with complaint of lightheadedness started last evening. Patient reports last night was watching TV and when she stood up she felt very lightheaded. Try to walk and felt lightheaded and weak and fell onto buttocks. Reports discomfort to right buttocks. Denies hitting head, denies syncope, chest pain, palpitations, shortness of breath. Denies any other injury. [place] lightheaded all evening and continued to feel lightheaded today. Denies symptoms at rest however feels lightheaded with standing. Reports has been eating and drinking well. Patient reports over a month ago had vision loss to right eye for 3 to 4 weeks and was followed up by ophthalmology and diagnosed with ischemic optic neuritis of right eye. Patient reports past history of temporal arteritis. Followed up with PCP who started her on prednisone 40 mg daily for possible temporal arteritis. Patient states the past week has been taking 20 mg prednisone daily. She states vision peripherally of right eye is returning. Patient denies any headache, tenderness over temporal artery. Had outpatient MRI brain on 06/22/2021 with no acute abnormality. 06/09/2021 carotid Doppler with bilateral internal carotid arteries with less than 50% stenosis. 06/09/2021 echo: EF 60%, aortic valve prosthesis systolic gradients borderline elevated, mild mitral vegetation, mild tricuspid regurgitation. Patient reports approximately 2 weeks ago had black-colored stools for 7 to 8 days. She reports PCP had recommended to hold Eliquis. Patient states for the past week has not had any black stool and her stool has been brown in coloration. Denies any gissel blood per rectum. She reports she resumed taking her Eliquis this morning. Denies any abdominal pain. Patient states today has had 3 episodes of soft brown-colored stools. Denies any watery stools recently.. History colonoscopy in 2018: Diverticulosis in sigmoid colon and descending colon, internal hemorrhoids, polyps and a sending colon and descending colon. Denies fever/chills, diaphoresis, N/V, BAUER, syncope, neck pain, CP, SOB, orthopnea, palpitations, cough, sore throat, choking, otalgia, rhinorrhea, abdominal pain, paresthesias, extremity weakness, extremity edema, rashes, dysuria, hematuria, urinary frequency. Today in ER patient afebrile, initial BP 113/72 dropped down to 81/61. Received 2.5 L NSS with BP up to 106/67. No tachycardia, no hypoxia. WBC: 21. CT abdomen pelvis No acute findings for active GI bleed, 7.3 x 4.8 cm gluteal hematoma right buttock, no other acute intra-abdominal or pelvic abnormality Admission Exam Per Admitting Provider Physical Exam: General: no distress, WDWN Head: normocephalic, atraumatic Eyes: PERRL, EOM's intact, conjunctiva non-injected, anicteric ENT: normal inspection external ears, nose, mucous membranes moist Neck: supple, trachea midline Lungs: clear, no respiratory distress, no wheezing/rhonchi/rales CV: RRR, no JVD, no pretibial edema Abd: normal BS, soft, non-tender Ext: no cyanosis, no calf tenderness Neuro: A&O x 3, no focal deficits noted, normal affect Skin: warm, dry; right buttock: +ecchymosis lateral right buttock with tenderness to palpation without surrounding erythema Principal Diagnosis Upper GI bleed, negative EGD, status post fall with right gluteal hematoma, paroxysmal atrial fibrillation, history of pulmonary embolism Discharge Exam Constitutional + ill appearing and average body habitus Eyes PERRL, conjunctivae normal, anicteric sclerae ENMT external ear and nose normal, oropharynx normal Neck trachea midline, no thyromegaly Respiratory no respiratory distress Auscultation: + diminished lung sounds (At the very bases) Cardiovascular Rate/Rhythm: regular rate and regular rhythm; not tachycardic Heart Sounds: normal S1, normal S2 and + murmur (2/6 ESM over precordium) Gastrointestinal (Abdomen) Inspection/Auscultation: normal bowel sounds; abdomen not distended Percussion/Palpation: + abdomen tender (Minimally tender epigastrium) and abdomen soft Psychiatric A+Ox3, euthymic affect Lymphatic no cervical or axillary lymphadenopathy Discharge Data Allergies Allergy/AdvReac Type Severity Reaction Status Date / Time heparin AdvReac Severe Unknown Verified 10/19/20 01:43 Consultations 07/07/21 17:11 ED Decision to Admit Stat 07/07/21 20:39 Consult Gastroenterology Routine Procedures Performed Operation Date: 07/08/21 13:00 Actual Procedures p Esophagogastroduodenoscopy(Not Applicable) - Omi High Case, DO Ordered Studies 07/07/21 10:59 CT head/brain wo con Stat 07/07/21 11:14 CT abd pelvis wo con Stat CT cervical spine wo con Stat Hospital Course (1) Lightheadedness: Secondary to acute blood loss anemia with postural hypotension Appreciate PT and OT evaluation with recommendation to go home at discharge She will be discharged today Strongly advised to take precaution to avoid falls (2) Hematoma: [place] lightheaded on and ended up with a fall on right buttock Remains symptomatic with lightheadedness since then CT scan did show hematoma involving the right gluteal area measuring 7.3 x 4.8 cm Complains to have minimal discomfort Her sudden drop in hemoglobin likely secondary to hematoma She started her Eliquis on Saturday and which is on hold now Hemoglobin dropped significantly and she will get 1 unit of blood transfusion today and may be another on tomorrow If the hematoma gets worse will need to get Ortho evaluation We will monitor CBC-hemoglobin remains at 7.4 following 1 unit of blood transfusion Denies any increasing pain or tension in the right gluteal area Will give another unit of blood transfusion today Hemoglobin remains stable at 9.8 and no evidence of ongoing bleeding and the patient denies any symptoms (3) Acute blood loss anemia: Recent history of melena Reported black-colored stools 2 weeks ago. Eliquis was held. Patient resumed Eliquis today. Reported brown stools for the past week without any noted melena or hematochezia. Denies abdominal pain In ER reported brown-colored stool, Hemoccult positive Hgb: 12.2. Baseline around 13 Was a started with intravenous Protonix as subsequent hemoglobin dropped Appreciate GI input and recommendation EGD did not show any active bleeding area but it did show mild gastritis Acute blood loss seems to be secondary to hematoma Hemoglobin is not up yet we will give another unit of blood transfusion Hemoglobin went up to 9.8 No evidence of continued bleeding GI recommended outpatient colonoscopy (4) Acute hypotension: DDX: Sepsis. Unclear source. Possible UTI Made sepsis criteria but seems to be secondary to stress from acute blood loss no evidence of infection has been found yet Patient is 81-year-old female with PMH HTN, HLD, CKD III, history of pericardial effusion, pericarditis, AAS s/p TAVR, history PE, paroxysmal atrial fibrillation on Eliquis, history HIT, hypothyroidism, GERD, iron deficiency anemia presented to ER with complaint of lightheadedness with standing started last evening Today in ER patient afebrile, initial BP 113/72 dropped down to 81/61. Received 2.5 L NSS with BP up to 106/67. No tachycardia, no hypoxia. WBC: 21. Hgb: 12.2. UA: Trace leukocyte Estrace, 20-[address] head and C-spine, no acute findings CXR: no acute infiltrate CT abdomen pelvis No acute findings for active GI bleed, 7.3 x 4.8 cm gluteal hematoma right buttock, no other acute intra-abdominal or pelvic abnormality Obtain lactic acid. Was elevated at 5.4. Continue to trend WBC elevated at 21. Patient been on prednisone for 3 weeks In ER was given Zosyn and vancomycin was started later on Blood cultures pending Urine culture pending We will discontinue vancomycin and continue Zosyn empirically We will get PT and OT evaluation before discharge Blood pressure remains stable Elevated troponin High-sensitivity troponin: 19. EKG without acute changes. Patient without chest pain or shortness of breath. May be secondary to demand ischemia Trend troponin EKG in a.m.-no significant EKG changes Troponin elevation is secondary to demand ischemia without any evidence of ACS Echo of the heart-LV normal in size with moderate concentric LVH, LV wall motion is normal with hyperdynamic left ventricle with EF 65 to 70%, grade 1 diastolic dysfunction, aortic valve sclerosis without significant aortic stenosis, moderate mitral annular calcification, no mitral valve stenosis and trace MR, mild tricuspid regurgitation and Doppler findings do not suggest pulmonary hypertension and no pericardial effusion or pericardial constriction. No cardiac symptoms CKD III Cr: 1.29. Baseline~1 Monitor renal functions, avoid nephrotoxic agents when possible Creatinine has been normalized History of pericarditis History of pericardial effusion Denies chest pain or shortness of breath Recent echo 06/2021 without pericardial effusion Echo did not show any pericardial constriction History of PE No shortness of breath, chest pain. no current hypoxia or tachycardia Hold Eliquis with possible GI bleed History aortic stenosis s/p TAVR with bioprosthetic valve No significant aortic valvular stenosis Paroxysmal atrial fibrillation On Eliquis Current sinus rhythm Hold Eliquis with possible GI bleed Continue metoprolol tartrate with holding parameters Will hold Eliquis for now and further decision regarding readministration of Eliquis will be done by the engineering officer as an outpatient HTN Hypotensive in ER. Improved with IVF Hold Lasix Metoprolol tartrate with holding parameters Recent ischemic optic neuritis of right eye Patient had vision loss right eye and followed up with ophthalmology and was diagnosed with ischemic optic neuritis of right eye. PCP concern for possible temporal arteritis and who started her on prednisone 40 mg daily 3 weeks ago. Patient taper down to 20 mg daily for the past week. Denies any headache/temporal pain. Reports vision starting to return to right eye. 06/09/2021 patient carotid Doppler with bilateral internal carotid arteries with less than 50% stenosis. Outpatient 06/09/2021 echo: EF 60%, aortic valve prosthesis systolic gradients borderline elevated, mild mitral vegetation, mild tricuspid regurgitation. Outpatient MRI brain on 06/22/2021 with no acute abnormality. Continue prednisone History HIT GERD Oral PPI converted to IV DVT Prophylaxis SCDs Conditional Code as per discussion with pt. Wants CPR, medications, No intubation or mechanical ventilation Follows with Dr Ribeiro for routine care Will be discharged home this afternoon (5) Melena: As above (6) S/P TAVR (transcatheter aortic valve replacement): No acute cardiac symptoms (7) History of pulmonary embolism: Has been on Eliquis Eliquis is restarted on Saturday morning Total Time Total Time Spent Total Time Spent (In Minutes): 35 minutes Discharge Plan Discharge Items Patient Disposition: Home - Self-Care Reason For Visit: LIGHTHEADED Discharge Diagnosis: Upper GI bleed, negative EGD, status post fall with right gluteal hematoma, paroxysmal atrial fibrillation, history of pulmonary embolism Condition on Discharge: Fair Activity: Resume your previous activity Non-emergency contact: Primary Care Provider Call non-emergency contact if: you have any medication questions and your symptoms worsen Follow-up/Referrals: Jerod Rosales DO [Sheeting Puller] - (Date & Time 07/24/2021 11:00 AM Provider Jerod Rosales DO Department Cardiology, [facility] ) Kalen Ribeiro MD [Primary Care Provider] - (Date & Time 07/14/2021 10:00 AM Provider Kalen Ribeiro MD Department [facility] ) Diet: Heart Healthy Addtl Attending Provider Instructions: Please take precautions to avoid falls Do not restart Eliquis until you are told by your engineering officer and/or primary care physician Do not take any NSAID's or any [id number] pain medication except Tylenol Keep appointments with your healthcare provider GI recommended outpatient routine colonoscopy Pending Studies at Discharge: No Stand-Alone Forms: My [facility] [employer], Smoking Cessation Medications and DC Order Prescriptions: Continued glucosamine-chondroitin [Osteo Bi-Flex] 250-200 mg Tablet 1 tab PO DAILY RF: 0 cholecalciferol (vitamin D3) [Vitamin D3] 50 mcg (2,000 unit) Capsule 50 mcg PO DAILY RF: 0 alendronate 70 mg tablet 70 mg PO WK RF: 0 aspirin 81 mg tablet,chewable 81 mg PO DAILY RF: 0 atorvastatin 20 mg tablet 20 mg PO PM RF: 0 levothyroxine 88 mcg tablet 88 mcg PO DAILYBB RF: 0 biotin 1,000 mcg Tablet,Chewable 1,000 mcg PO DAILY RF: 0 latanoprost 0.005 % drops 1 drp OPB HS RF: 0 pantoprazole 40 mg tablet,delayed release (DR/EC) 40 mg PO DAILY RF: 0 metoprolol tartrate 25 mg tablet 12.5 mg PO BID RF: 0 dorzolamide-timolol 22.3-6.8 mg/mL drops 1 drp ophthalmic (eye) BID RF: 0 cyanocobalamin (vitamin B-12) 500 mcg Tablet 500 mcg PO DAILY RF: 0 Roy-3 Fish Oil 910-1,400 mg Capsule 1 cap PO DAILY RF: 0 furosemide 20 mg tablet 20 mg PO DAILY RF: 0 prednisone 20 mg tablet 20 mg PO DAILY RF: 0 Discontinued Eliquis 5 mg tablet 5 mg PO BID RF: 0 Discharge Orders: Discharge Order (Routine); Ordered 07/10/21 Ordered By: Angelica Viramontes Admission Data Admit Date/Time: 07/07/21 18:13 Attending Provider: Angelica Viramontes Admit Provider: Basilia Etienne Primary Care Provider: Kalen Ribeiro Other Providers: Basilia Etienne ; Case,Omi G. Other Interventions: Discharge Summary Assessment (RN) Last Done: 07/10/21 11:38
== END 2021-07-10 13:22 | disposition home or self-care (01) | DRG 605 ==
LOC: ED 10:15 → 2E 18:13 → SUATTDRO 18:13 → 2E 20:04

== ENCOUNTER 2023-05-31 19:13 | Inpatient (IN) ==
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
[2023-05-31] MEDS: CEFEPIME 2,000 MG/20 ML VIAL IV STA (20:18)
[2023-05-31] MEDS: ACETAMINOPHEN 1,000 MG/100 ML VIAL IV STA (20:20)
[2023-05-31 20:21] LABS: Basophils # (auto) 0.07 K/uL (0.00-0.20); Basophils % (auto) 0.4 %; Eosinophils # (auto) 0.42 K/uL (0.00-0.50); Eosinophils % (auto) 2.6 %; Hematocrit (blood only) 34.3 % (37.0-47.0); Hemoglobin 10.9 g/dl (12.0-16.0); Immature Granulocytes # (auto) 0.13 K/uL (0.01-0.20); Immature Granulocytes % (auto) 0.8 %; Lymphocytes # (auto) 0.64 K/uL (1.20-3.40); Mean Corpuscular Hemoglobin 28.6 pg (25.0-34.0); Mean Corpuscular Hgb Conc 31.8 g/dL (32.0-36.0); Mean Platelet Volume 9.4 fL (9.4-12.4); Monocytes # (auto) 0.73 K/uL (0.11-0.59); Monocytes % (auto) 4.6 %; Neutrophils % (auto) 87.6 %; Platelet Count 322 K/uL (130-400); RDW Standard Deviation 48.8 fL (36.4-46.3); Red Blood Count 3.81 M/uL (4.20-5.40); White Blood Count 15.99 K/ul (4.8-10.8)
[2023-05-31] MEDS: SODIUM CHLORIDE 0.9% 500 ML IV ONE (20:27)
[2023-05-31 20:31] LABS: Appearance Urine Clear (Clear); Bacteria Urine Automated Negative (Negative); Bilirubin Urine Negative (Negative); Blood Urine Negative (Negative); Color Urine Dark Yellow; Glucose Urine UA Negative (Negative); Ketones Urine Negative (Negative); Leukocyte Esterase Urine Negative (Negative); Nitrite Urine Negative (Negative); Protein Urine 1+ (Negative); RBC Urine Automated 0-4 /hpf (0-4); Specific Gravity Urine 1.015 (1.000-1.030); Urobilinogen Urine Negative (Negative); pH Urine 5.5 (4.5-7.5)
[2023-05-31 20:39] LABS: Albumin Globulin Ratio 0.8 (0.9-2); Albumin Level 2.7 gm/dl (3.4-5.0); Bilirubin,Total 0.7 mg/dl (0.2-1.0); Creatinine Clr Calc Pharmacy 27.7 ml/min; Est GFR (African American) 61.2 ml/min; Est GFR (Non-African American) 52.8 ml/min; Globulin 3.3 gm/dl (2.5-4.0); Magnesium 1.7 mg/dl (1.7-2.4); Potassium 2.6 mmol/L (3.5-5.1)
[2023-05-31 20:42] LABS: Adenovirus PCR Not Detected (NotDetected); Bordetella parapertussis PCR Not Detected (NotDetected); Bordetella pertussis PCR Not Detected (NotDetected); Chlamydia pneumoniae PCR Not Detected (NotDetected); Coronavirus 229E PCR Not Detected (NotDetected); Coronavirus CoV-2 (COVID19)PCR Not Detected (NotDetected); Coronavirus HKU1 PCR Not Detected (NotDetected); Coronavirus NL63 PCR Not Detected (NotDetected); Coronavirus OC43PCR Not Detected (NotDetected); Human Metapneumovirus PCR Not Detected (NotDetected); Influenza A PCR Not Detected (NotDetected); Influenza B PCR Not Detected (NotDetected); Mycoplasma pneumoniae PCR Not Detected (NotDetected); Parainfluenza Virus 1 PCR Not Detected (NotDetected); Parainfluenza Virus 2 PCR Not Detected (NotDetected); Parainfluenza Virus 3 PCR Not Detected (NotDetected); Parainfluenza Virus 4 PCR Not Detected (NotDetected); Respiratory Syncytial VirusPCR Not Detected (NotDetected); Rhinovirus/Enterovirus PCR Not Detected (NotDetected)
[2023-05-31 20:45] LABS: Troponin I High Sensitivity 39.9 pg/ml (0-14)
[2023-05-31 20:54] LABS: Thyroid Stimulating Hormone 1.963 uIu/ml (0.300-4.500)
[2023-05-31 20:58] LABS: INR 1.2 (0.9-1.1); Partial Thromboplastin Ratio 0.9; Partial Thromboplastin Time 26 Seconds (21-31); Prothrombin Time 13.1 Seconds (9.0-12.0)
--- NOTE | 2023-05-31 21:30 | XRay Report ---
SINGLE VIEW CHEST CLINICAL HISTORY: Sepsis. FINDINGS: An AP, portable, semierect chest radiograph is compared to study dated 12/05/2022. A 2-lead cardiac pacemaker is unchanged in position. There is evidence of previous cardiac valve surgery. The heart is enlarged noting atherosclerotic calcification of the thoracic aorta. The pulmonary vasculatu re is noncongested. Chronic interstitial thickening is similar to previous. There is bibasilar scarri ng/atelectasis. The lungs and pleural spaces are otherwise clear. No pneumothorax is seen. The skelet al structures are osteopenic. The bony thorax is grossly intact. IMPRESSION: 1. Cardiomegaly and cardiac pacemaker without radiographic evidence of congestive failure. 2. No airspace consolidation or pleural effusion is identified. ACT 112: Negative or not required by law. Electronically signed by: Noe Martin M.D. 05/31/2023 9:28 PM
[2023-05-31] MEDS: OPTIRAY 350 500ml IV ONE (22:16)
[2023-05-31] MEDS: MAGNESIUM SULFATE / D5W 1 GM/100 ML BAG IV STA (23:17)
[2023-05-31] MEDS: SODIUM CHLORIDE 0.9% 1,000 ML IV ONE (23:17)
[2023-05-31] MEDS: POTASSIUM CHLORIDE / WTR 10 MEQ/100 ML PLCT IV SCH (23:22)
--- NOTE | 2023-05-31 23:27 | CT Scan Report ---
Exam(s): CT ABDOMEN + PELVIS With Contrast IV Amt: 120 ml optiray 350 EXAM: CT Abdomen and Pelvis With Intravenous Contrast CLINICAL HISTORY: Reason for exam: n/v, sepsis. TECHNIQUE: Axial computed tomography images of the abdomen and pelvis with intravenous contrast. CTDI is 9.39 mGy and DLP is 420.68 mGy-cm. Automated exposure control was utilized for the study. A dose lowering technique was utilized adhering to the principles of ALARA. CONTRAST: Patient received 120 ml optiray 350 of IV contrast COMPARISON: No relevant prior studies available. FINDINGS: Lung bases: Unremarkable. No mass. No consolidation. Pleural space: Bilateral pleural effusions. Heart: Postoperative changes aortic valve repair. ABDOMEN: Liver: Unremarkable. No mass. Gallbladder and bile ducts: Unremarkable. No calcified stones. No ductal dilation. Pancreas: Unremarkable. No mass. No ductal dilation. Spleen: Unremarkable. No splenomegaly. Adrenals: Unremarkable. No mass. Kidneys and ureters: Unremarkable. No solid mass. No hydronephrosis. Stomach and bowel: Diverticulosis without evidence of diverticulitis. No obstruction. PELVIS: Appendix: No findings to suggest acute appendicitis. Bladder: Unremarkable. No mass. Reproductive: Unremarkable as visualized. ABDOMEN and PELVIS: Intraperitoneal space: Unremarkable. No free air. No significant fluid collection. Bones/joints: Multilevel degenerative disease of the lower lumbar spine. No acute fracture. No dislocation. Soft tissues: Unremarkable. Vasculature: Unremarkable. No abdominal aortic aneurysm. Lymph nodes: Unremarkable. No enlarged lymph nodes. Tubes, lines and devices: Solid abdominal organs are unremarkable. No leakage cardioactive device. IMPRESSION: Bilateral pleural effusions. Electronically signed by: Shyam Boyce MD 05/31/23 23:26 PM
--- NOTE | 2023-05-31 23:31 | CT Scan Report ---
Exam(s): CTA CHEST IV Amt: 120 ml EXAM: CT Angiography Chest With Intravenous Contrast CLINICAL HISTORY: Reason for exam: sepsis, sob, elevated troponin, r/o PE. TECHNIQUE: Axial computed tomographic angiography images of the chest with intravenous contrast. CTDI is 11.25 mGy and DLP is 307.2 mGy-cm. Automated exposure control was utilized for the study. A dose lowering technique was utilized adhering to the principles of ALARA. MIP reconstructed images were created and reviewed. COMPARISON: Comparison 11/05/2015. FINDINGS: Pulmonary arteries: Unremarkable. No pulmonary embolism. Aorta: No acute findings. No thoracic aortic aneurysm. Lungs: Unremarkable. No mass. No consolidation. Pleural space: Large right pleural effusion. Trace left pleural effusion. No pneumothorax. Heart: Unremarkable. No cardiomegaly. No significant pericardial effusion. No evidence of RV dysfunction. Bones/joints: No acute fracture. No dislocation. Soft tissues: Unremarkable. Lymph nodes: Unremarkable. No enlarged lymph nodes. Other findings: IMPRESSION: No acute findings in the visualized arteries of the chest. Electronically signed by: Shyam Boyce MD 05/31/23 23:31 PM
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
[2023-06-01] MEDS ORDERED: PROMETHAZINE HCL 6.25 MG in SODIUM CHLORIDE 0.9% 50 ML IV PRN
[2023-06-01] MEDS: POTASSIUM CHLORIDE PWD 20 MEQ PACK PO STA (00:15)
[2023-06-01] MEDS: metroNIDAZOLE 500 MG/100 ML BAG IV STA (00:20)
[2023-06-01] MEDS: MAGNESIUM SULFATE / D5W 1 GM/100 ML BAG IV ONE (00:41)
[2023-06-01] MEDS: DOXYCYCLINE HYCLATE 100 MG in DEXTROSE 5% MINI-B 100 ML IV STA (00:50)
[2023-06-01] MEDS: DORZOLAMIDE/TIMOLOL 22.3/6.8MG/ML 10 ML BTL OP SCH (02:21)
[2023-06-01] MEDS: LATANOPROST 0.005% OP SOLN 2.5 ML BTL OPB SCH (02:21)
[2023-06-01] MEDS: LACTATED RINGER'S 1,000 ML IV ONE (03:06)
[2023-06-01 04:59] LABS: Basophils # (auto) 0.06 K/uL (0.00-0.20); Basophils % (auto) 0.5 %; Eosinophils # (auto) 0.23 K/uL (0.00-0.50); Hematocrit (blood only) 27.7 % (37.0-47.0); Hemoglobin 8.6 g/dl (12.0-16.0); Immature Granulocytes % (auto) 0.9 %; Lymphocytes % (auto) 5.3 %; Mean Corpuscular Hemoglobin 28.5 pg (25.0-34.0); Mean Corpuscular Volume 91.7 fL (80.0-100.0); Mean Platelet Volume 9.4 fL (9.4-12.4); Monocytes # (auto) 0.59 K/uL (0.11-0.59); Monocytes % (auto) 5.2 %; Neutrophils # (auto) 9.82 K/uL (1.40-6.50); Neutrophils % (auto) 86.1 %; Platelet Count 257 K/uL (130-400); RDW Coefficient of Variation 15.4 % (11.5-14.5); RDW Standard Deviation 50.9 fL (36.4-46.3); Red Blood Count 3.02 M/uL (4.20-5.40)
[2023-06-01 05:14] LABS: BUN Creatinine Ratio 21.3 (10-20); Calcium 7.1 mg/dl (8.6-10.3); Creatinine Clr Calc Pharmacy 30.2 ml/min; Est GFR (African American) 70.4 ml/min; Est GFR (Non-African American) 60.8 ml/min; Potassium 4.6 mmol/L (3.5-5.1)
[2023-06-01] MEDS: POTASSIUM CHLORIDE PWD 20 MEQ PACK PO ONE (05:17)
[2023-06-01 05:20] LABS: Troponin I High Sensitivity 25.6 pg/ml (0-14)
[2023-06-01] MEDS: LEVOTHYROXINE SODIUM 100 MCG TABLET PO SCH (05:55)
[2023-06-01 08:19] LABS: Estimated Average Glucose 148 mg/dl; Hemoglobin A1C 6.8 % (4.5-5.6)
--- NOTE | 2023-06-01 08:56 | Electrocardiogram Report ---
Test Reason : Blood Pressure : / mmHG Vent. Rate : 087 BPM Atrial Rate : 087 BPM P-R Int : 180 ms QRS Dur : 100 ms QT Int : 350 ms P-R-T Axes : 027 001 110 degrees QTc Int : 421 ms Atrial-sensed ventricular-paced rhythm Abnormal ECG When compared with ECG of 05-DEC-2022 13:47, Vent. rate has increased BY 25 BPM Confirmed by Neal Gonsales ([id number]) on 06/01/2023 8:55:42 AM Referred By: REFERRED SELF Confirmed By:Neal Gonsales
[2023-06-01] MEDS: lisinopril 2.5 MG TAB PO SCH (09:42)
[2023-06-01] MEDS: FONDAPARINUX 2.5 MG/0.5 ML SYR SQ SCH (09:42)
[2023-06-01] MEDS: FAMOTIDINE 20 MG TAB PO SCH (09:43)
[2023-06-01] MEDS: ASPIRIN 81 MG CHEW PO SCH (09:43)
[2023-06-01] MEDS: MULTIVITAMIN TAB PO SCH (09:43)
--- OUTSIDE RECORDS SUMMARY | 2023-06-01 11:07 | External Medical Summary ---
Author Name Unknown Address Unknown Organization [id number]:[facility] [place] [address] [facility] [address] Laboratory Report Ordering Provider Test Date Status BREE TORRES 05/21/2023 15:12:59 Final Please route results to Pt's PCP
PCP: OTTONIEL KENYON
[address] [facility]
[place] [id number]
[phone]

Discharge Order Observation Date Value Abnormality Reference (Units ) Status WBC, Total 05/21/2023 15:12:59 18.51 Above high normal 4.00-10.80 (K/uL) Final RBC 05/21/2023 15:12:59 3.41 3.85-5.15 (M/uL) Final Hemoglobin 05/21/2023 15:12:59 10.4 Below low normal 12.0-15.3 (g/dL) Final HCT 05/21/2023 15:12:59 32.2 Below low normal 36.0-45.2 (%) Final MCV 05/21/2023 15:12:59 94.4 81.5-97.5 (fL) Final MCH 05/21/2023 15:12:59 30.5 27.0-34.0 (pg) Final MCHC 05/21/2023 15:12:59 32.3 32.0-36.0 (g/dL) Final RDW 05/21/2023 15:12:59 14.5 11.5-15.5 (%) Final Platelets 05/21/2023 15:12:59 383 140-400 (K/uL) Final MPV 05/21/2023 15:12:59 10.1 6.6-11.1 (fL) Final Nucleated erythrocytes/100 leukocytes [Ratio] in Blood by Automated count 05/21/2023 15:12:59 0 <=0 (/100 WBCs) Final Performing Location [facility] [place] [facility] [address] [place] [place] [address]
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
--- OUTSIDE RECORDS SUMMARY | 2023-06-01 11:07 | External Medical Summary | Summary of Care ---
Author Name Unknown Organization [facility] Address [address] [place] [address] Phone [phone] Care Team Providers Care Diabetic Educator Name Role Phone Kalen Ribeiro MD Primary Care Provider +1- [phone] Reason for Visit * Reason Onset Date Comments [facility]: Maintenance 05/24/2023 Encounter Details Date Type Department Care Team ([facility] st Contact Info) Description 05/24/2023 Telephone [facility], [facility] [address] [facility] [place] [address] Adina Bonilla RN [address] [facility] [place] [address] [facility]: Maintenance Allergies Active Allergy Reactions Criticality Noted Date Comments Heparin 10/07/2020 Concern for HIT documented as of this encounter (statuses as of 05/24/2023) Medications Medication Sig Dispensed Refills Start Date [...] 10/05/2020 Active Rocklatan 0.02-0.005 % Ophthalmic Solution (Netarsudil-Latano prost) Instill 1 Drop into eye in the morning and 1 Drop before bedtime. 0 Active Furosemide 20 MG Oral Tablet (Lasix) TAKE ONE TABLET BY MOUTH DAILY 90 Tablet 3 04/13/2022 Active Additional Information Patient not taking.Reported on 05/21/2023 Levothyroxine Sodium 100 MCG Oral Tablet (Levoxyl)Indicatio ns:Hypothyroidism, unspecified type Take 1 Tablet by mouth [...] Active Atorvastatin Calcium 20 MG Oral Tablet (Lipitor)Indicatio ns:Dyslipidemia, goal LDL below 70 TAKE 1 TABLET BY MOUTH ONCE DAILY 90 Tablet 3 01/03/2023 Active Potassium Chloride Estefany ER 20 MEQ Oral Tablet Extended ReleaseIndications :Hypokalemia Take 1 tablet by mouth twice per day for 3 days and then once per day. 90 Tablet 1 04/30/2023 Active Culturelle Oral Capsule Take 1 Capsule by mouth two times per day (morning & before bedtime). 60 Capsule 0 05/14/2023 06/13/2023 Active Mirtazapine 15 MG Oral Tablet (Remeron) Take 1 Tablet by mouth at bedtime. 30 Tablet 0 05/14/2023 Active documented as of this encounter (statuses as of 05/24/2023) Active Problems Problem Noted Date Diagnosed Date [...] Paroxysmal atrial fibrillation 03/29/2022 HIT (heparin-induced thrombocytopenia) 3 Atherosclerosis of aorta 07/14/2021 Atherosclerotic heart diseas e of [place] coronary artery with other forms of angina [...] as of this encounter (statuses as of 05/24/2023) Resolved Problems Problem Noted Date Diagnosed Date Resolved Date Sepsis 04/15/2023 05/10/2023 Oropharyngeal dysphagia 03/18/2023 03/03/2023 Primary open angle glaucoma (POAG) 03/29/2022 12/25/2022 [...] as of this encounter (statuses as of 05/24/2023) Immunizations Name Administration Dates Next Due COVID-19 mRNA, LNP-s, No Pre serve, 2-Dose Series (Moderna) 06/09/2020,05/12/2020 COVID-19, mRNA, LNP-s, PF, B ooster, 100mcg/0.5mg (Moderna) 02/14/2021 Covid-19, Mrna, Lnp-s, Pf, B ivalent, 30 Mcg, IM, 12 yrs and above (DFine) 12/26/2021 Pneumococcal Conjugate Vacc, 13 Valent (Prevnar) [...] No 05/10/2023 documented as of this encounter Miscellaneous Notes * Telephone Encounter - Adina Bonilla RN - 05/24/2023 1:34 PM EDT Please put in a temporary address of [address] [place] [address] [place] [address]. She is currently staying with her dtr Thank you documented in this encounter Plan of Treatment Upcoming Encounters Date Type Department Care Team (Late st Contact Info) Description 05/29/2023 11:30 AM EDT [facility] [place], [facility] [address] [address] Ace Arriaga PA-C [address] [place] [address] [place] Xinog, Community Health Tourist Home Keeper [address] [place] [address] 06/18/2023 4:00 PM EDT Office Visit Hematology/Oncology [facility] [address] [facility] [place] [phone] Rigoberto Aguilera MD [address] [facility] [place] [address] 06/28/2023 8:00 AM EDT Office Visit [facility] [address] [facility] [address] Kalen Ribeiro MD [address] [place] [address] 08/01/2023 3:00 PM EDT Office Visit Orthopaedics [facility] [address] [address] Chava Huff PA-C [address] [place] [address] 08/08/2023 2:20 PM EDT Office Visit Otolaryngology/Head & Neck/Facial Plastic Surgery [address] [place] [address] Joesph Yun MD [address] [place] [address] 09/02/2023 9:00 AM EDT Office Visit Cardiology, [facility] [address] [facility] [address] Halley Preston CRNP [facility] [address] 10/01/2023 10:30 AM EDT Rehab Services Voice Lab, [address] [address] Lance Samuels, [facility] [address] 10/01/2023 11:00 AM EDT Appointment Radiology, [address] [address] 02/10/2024 10:00 AM EST Cardiac Studies Cardiology, [facility] [address] [facility] [address] [facility] [address] [facility] [place] [address] 02/13/2024 8:15 AM EST Cardiac Studies Cardiac Studies, [facility] 132 [facility] [place] [address] Health Maintenance Due Date Last Done Comments Zoster Vaccines (2 of 3) 07/17/2007 05/22/2007 COVID-19 Vaccine ( season) 2022 12/26/2021, 02/14/2021, 06/09/2020, Additional history exists DXA Scan 02/14/2023 02/14/2021, 09/2020, 07/02/2017, Additional history exists GFR 11/21/2023 05/21/2023, 07/2023, 05/13/2023, Additional history exists Depression Screening 04/02/2024 04/02/2023 TSH 05/09/2024 05/10/2023, 04/11, 04/15/2023, Additional history exists CKD PHOS USE SMARTSET 15469 05/13/202407/2023, 05/13/2023, 05/12/2023, Additional history exists Albumin/Creatinine Ratio 05/20/2024 024, 06/08/2022, 06/08/2021 CKD HGB USE SMARTSET 34123 05/20/202405/20, 05/21/2023, 05/14/2023, Additional history exists DTaP,Tdap,and Td Vaccines (2 - Td or Tdap) 08/14/2024 08/14/2014, 01/25/2000 Pneumococcal Vaccine: 65+ Years Completed 01/06/2015, 08/19/2007 VITAMIN D LEVEL ONCE IN A LIFETIME-USE SMARTSET# 94071 Completed 12/11/2018, 07/07/2018, 10/06/2010 Influenza Vaccine (FLU [...] this encounter Medical Devices Implanted Type Area Setter Molding And Coremaking Machines Device Identifier Shelf Expiration Date Model / Serial / Lot [place] Pacemaker-12/05 Implanted:Qty: 1 on 12/05/2022 ICD Chest [employer] : CARDIAC SURGERY 09/02/2025 [id number] / / . Lead-12/05/2022 Implanted:Qty: 2 on 12/05/2022 Lead Chest [employer] : CARDIAC SURGERY 10/28/2025 [id number] 3830 / / . Balloon Cath Pacing [id number] - [id number] Implanted:Qty: 1 on 09/20/2020 at [facility] BARD : MEDICAL [id number] 07/08/2022 [id number] / / [id number] Proglide Perclose [id number] X10 - [id number] Implanted:Qty: 1 on 09/20/2020 at [facility] : VASCULAR DEVICES [id number] 06/08/2022 [id number] / / [id number] Valve Bg 3 Ultra 23mm - [id number] Implanted:Qty: 1 on 09/20/2020 by Dimitri Maya MD at [facility] [employer] [id number] 09/22/2022 [id number] / / . Lead Tempo Temp Pacing - [id number] Implanted:Qty: 1 on 09/20/2020 at [facility] [employer] [id number] 06/28/2021 [id number] / / [id number] documented as of this encounter Additional Health Concerns Infection Onset [...] the patient have Health Care Power of Pomologist? No Full Code 09/25/2020 6:44 PM 09/26/2020 6:50 PM This order reflects the patients wishes and were consensually agreed upon. Care Teams Diabetic Educator Relationship Specialty Start Date End Date Kalen Ribeiro MD [address] [place] [facility] [place] [address] PCP - General 12/15/01 documented as of this encounter
--- OUTSIDE RECORDS SUMMARY | 2023-06-01 11:07 | External Medical Summary | Summary of Care ---
Author Name Unknown Organization [facility] Address [address] [place] [address] Phone [phone] Care Team Providers Care Speech Pathology Teacher Name Role Phone Kalen Ribeiro MD Primary Care Provider [phone]- [phone] Reason for Visit * Reason Comments Outpatient Testing Encounter Details Date Type Department Care Team (Late st Contact Info) Description 05/21/2023 3:10 PM EDT Laboratory Laboratory, [place] [address] [place] [address] [place] [address] [place] [address] C. difficile colitis; Neutrophilia; Chronic kidney disease, stage 3a (HCC) Allergies Active Allergy Reactions Criticality Noted Date [...] aorta 07/14/2021 Atherosclerotic heart diseas e of [place] coronary artery with other forms of angina [...] Per CKD protocol #1 Temporal arteritis 04/04/2017 1 Osteoporosis 03/13/2007 01/06/2015 Dyslipidemia, goal to be [...] Split, I IV3, With Preserve, Inj 01/05/2014,01/01/2013,12/31/2011,12/26,01/06/2010,12/16/2008,01/23/2008 ,01/01/2007,01/17/2006,01/09/2005,12/0 03/2002,01/16/2002 TD - Tetanus/Diptheria (ADULT) 01/25/2000 TDAP (age 10 and older)(Boostrix) 08/14/2014 Varicella [...] money to buy more. Never true 04/02/19 24 Within the past 12 months, t he [...] (15 years old or older) No 05/10/19 24 Cognitive Status Response Date of Assessm ent Because of a physical, menta l, or emotional condition, do you have serious difficulty concentrating, remembering, or making decisions? (5 years old or older) No 05/10/2023 documented as of this encounter Plan of Treatment Upcoming Encounters Date Type Department Care Team (Late st Contact Info) Description 05/24/2023 12:30 PM EDT [facility] Visit [facility] [place], [facility] [address] [place] [address] Tabby Mera RN [address] [place] [address] 05/29/2023 11:30 AM EDT Telemedicine [facility] [address] [address] Ace Arriaga PA-C [address] [place] [address] [place] Xiong, Community Health Drawer Upfitter [address] [place] [address] 06/18/2023 4:00 PM EDT Office Visit Hematology/Oncology [facility] [address] [facility] [place] [address] Rigoberto Aguilera MD [address] [facility] [place] [address] 06/28/2023 8:00 AM EDT Office Visit [facility] [address] [place] [facility] [place] [phone] Kalen Ribeiro MD [address] [place] [address] 08/01/2023 3:00 PM EDT Office Visit Orthopaedics [facility] [address] [place] [address] Chava Huff PA-C [address] [place] [address] 08/08/2023 2:20 PM EDT Office Visit Otolaryngology/Head & Neck/Facial Plastic Surgery [address] [place] [address] Joesph Yun MD [address] [place] [address] 09/02/2023 9:00 AM EDT Office Visit Cardiology, [facility] [place] [address] Halley Preston CRNP [address] [facility] [place] [address] 10/01/2023 10:30 AM EDT Rehab Services Voice Lab, [address] [address] Lance Samuels, [facility]STRU[employer]URAL STEEL PAINTER [address] [place] [address] 10/01/2023 11:00 AM EDT Appointment Radiology, [facility] [address] [place] [address] 02/10/2024 10:00 AM EST Cardiac Studies Cardiology, [facility] [address] [facility] [place] [address] [facility] [address] [facility] [place] [address] 02/13/2024 8:15 AM EST Cardiac Studies Cardiac Studies, [facility] [address] [facility] [place] [address] Pending Results Name Type Priority Associated Diagnoses Date /Time CBC WITH WBC DIFFERENTIAL Lab Routine C. difficile colitis Neutrophilia 05/21/2023 3:12 PM EDT BASIC METABOLIC PANEL Lab Routine C. difficile colitis 05/21/2023 3:12 PM EDT CBC Lab Routine C. difficile colitis Neutrophilia 05/21/2023 3:12 PM EDT DIFFERENTIAL, AUTOMATED Lab Routine C. difficile colitis Neutrophilia 05/21/2023 3:12 PM EDT ALBUMIN / CREATININE RATIO, URINE Lab Routine Chronic kidney disease, stage 3a (HCC) 05/21/2023 3:56 PM EDT Health Maintenance Due Date Last Done Comments Zoster Vaccines (2 of 3) 07/17/2007 05/22/2007 COVID-19 Vaccine ( season) 2022 12/26/2021, 02/14/2021, 06/09/2020, Additional history exists DXA Scan 02/14/2023 02/14/2021, 1209/2020, 07/02/2017, Additional history exists Albumin/Creatinine Ratio 06/09/2023 06/08/2022, 03/3 03/2021 GFR 11/14/2023 05/14/2023, 030 06/2023, 05/12/2023, Additional history exists Depression Screening 04/02/2024 04/02/2023 TSH 05/09/2024 05/10/2023, 0205/2023, 04/15/2023, Additional history exists CKD HGB USE SMARTSET 55938 05/13/202405/13, 05/14/2023, 05/13/2023, Additional history exists CKD PHOS USE SMARTSET 53264 05/13/2024 030 07/2023, 05/13/2023, 05/12/2023, Additional history exists DTaP,Tdap,and Td Vaccines (2 - Td or Tdap) 08/14/2024 08/14/2014, 01/25/2000 Pneumococcal Vaccine: 65+ Years Completed 01/06/2015, 08/19/2007 VITAMIN D LEVEL ONCE IN A LIFETIME-USE SMARTSET# 10399 Completed 12/11/2018, 07/07/2018, 10/06/2010 Influenza Vaccine (FLU [...] this encounter Medical Devices Implanted Type Area Form Builder Device Identifier Shelf Expiration Date Model / Serial / Lot Molly Pacemaker-12/05 Implanted:Qty: 1 on 12/05/2022 ICD Chest [employer] : CARDIAC SURGERY 09/02/2025 [id number] / / . Lead-12/05/2022 Implanted:Qty: 2 on 12/05/2022 Lead Chest [employer] : CARDIAC SURGERY 10/28/2025 [id number] AND 3830 / / . Balloon Cath Pacing [id number] - [id number] Implanted:Qty: 1 on 09/20/2020 at [facility] BARD : MEDICAL [id number] 07/08/2022 520 [id number] / / [id number] Proglide Perclose 01945-21 X10 - [id number] Implanted:Qty: 1 on 09/20/2020 at [facility] : VASCULAR DEVICES [id number] 06/08/2022 [id number] / / [id number] Valve Bg 3 Ultra 23mm - [id number] Implanted:Qty: 1 on 09/20/2020 by Dimitri Maya MD at [facility] [employer] [id number] 09/22/2022 [id number] / / . Lead Tempo Temp Pacing - [id number] Implanted:Qty: 1 on 09/20/2020 at [facility] [employer] [id number] 06/28/2021 [id number] / / [id number] documented as of this encounter Visit Diagnoses Diagnosis C. difficile colitis Intestinal infection due to clostridium difficile Neutrophilia Other specified disease of white blood cells Chronic kidney disease, stage 3a (HCC) documented in this encounter Additional Health Concerns [...] the patient have Health Care Power of Director Of Premium Seat Sales? No Full Code 09/25/2020 6:44 PM 09/26/2020 6:50 PM This order reflects the patients wishes and were consensually agreed upon. Care Teams Speech Pathology Teacher Relationship Specialty Start Date End Date Kalen Ribeiro MD [address] [place] [address] PCP - General 12/15/01 documented as of this encounter
--- OUTSIDE RECORDS SUMMARY | 2023-06-01 11:07 | External Medical Summary ---
Author Name Unknown Address Unknown Organization K01:[facility] [place] [address] [facility] [address] Laboratory Report Ordering Provider Test Date Status BREE TORRES 05/21/2023 15:12:59 Final Please route results to Pt's PCP
PCP: OTTONIEL KENYON
[address] [facility]
[place] [address]
[phone]

Discharge Order Observation Date Value Abnormality Reference (Units ) Status SYNC LEUKOCYTES IN BLOOD BY AUTOMATED COUNT 05/21/2023 15:12:59 18.51 Above high normal 4.00-10.80 (K/uL) Final Segs 05/21/2023 15:12:59 86.5 Above high normal 40.0-75.0 (%) Final Lymphs % 05/21/2023 15:12:59 4.9 Below low normal 18.0-42.0 (%) Final Monos 05/21/2023 15:12:59 4.6 1.0-11.0 (%) Final Eosinophils 05/21/2023 15:12:59 2.4 0.0-6.0 (%) Final Basos 05/21/2023 15:12:59 0.4 0.0-2.0 (%) Final Immature Granulocyte, Percent 05/21/2023 15:12:59 1.2 0.0-2.0 (%) Final Absolute Segs 05/21/2023 15:12:59 16.01 Above high normal 1.80-7.70 (K/uL) Final Lymphs, absolute 05/21/2023 15:12:59 0.91 Below low normal 1.00-4.80 (K/ul) Final Monos, Abs 05/21/2023 15:12:59 0.85 0.00-1.10 (K/uL) Final Eos, Abs 05/21/2023 15:12:59 0.45 0.00-0.70 (K/uL) Final Basos, Abs 05/21/2023 15:12:59 0.07 0.00-0.20 (K/uL) Final Immature Granulocytes, Number 05/21/2023 15:12:59 0.22 Above high normal 0.00-0.20 (K/uL) Final Performing Location LAB[facility]ATORY [facility] - [address] [facility] [address]
--- OUTSIDE RECORDS SUMMARY | 2023-06-01 11:07 | External Medical Summary | Summary of Care ---
Author Name Unknown Organization [facility] Address [address] [place] [address] Phone [phone] Care Team Providers Care Metal Temperer Name Role Phone Kalen Ribeiro MD Primary Care Provider +1- [phone] Reason for Visit * Reason Onset Date Comments [facility]: Maintenance 05/28/2023 Encounter Details Date Type Department Care Team ([facility] st Contact Info) Description 05/28/2023 Telephone [facility], [facility] [address] [facility] [place] [address] Magda Grimm, Community Health Humanities Instructor [address] [place], [place] [id number] [facility]: Maintenance Allergies Active Allergy Reactions Criticality Noted Date Comments Heparin 10/07/2020 Concern for HIT documented as of this encounter (statuses as of 05/28/2023) Medications Medication Sig Dispensed Refills Start Date [...] Additional Information Patient not taking.Reported on 05/21/2023 Pantoprazole Sodium 40 MG Oral Tablet Delayed [...] at bedtime. 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 3 Atherosclerosis of aorta 07/14/2021 Atherosclerotic heart diseas e of [place] coronary artery with other forms of angina [...] as of this encounter (statuses as of 05/28/2023) Resolved Problems Problem Noted Date Diagnosed Date [...] as of this encounter (statuses as of 05/28/2023) Immunizations Name Administration Dates Next Due COVID-19 mRNA, LNP-s, No Pre serve, 2-Dose Series (Moderna) 06/09/2020,05/12/2020 COVID-19, mRNA, LNP-s, PF, B ooster, 100mcg/0.5mg (Moderna) 02/14/2021 Covid-19, Mrna, Lnp-s, Pf, B ivalent, 30 Mcg, IM, 12 yrs and above ([employer]) 12/26/2021 Pneumococcal Conjugate Vacc, 13 Valent (Prevnar) [...] encounter Miscellaneous Notes * Telephone Encounter - Magda Grimm Community Health Humanities Instructor - 05/28/2023 12:17 PM EDT Per request to change address to [address] [place] [address] [place] [address] temporarily as Pt is staying with Daughter. Changed to temporary address in [facility] until 07/24/23 documented in this encounter Plan of Treatment Upcoming Encounters Date Type Department Care Team (Late st Contact Info) Description 05/29/2023 11:30 AM EDT Telemedicine [facility], [facility] [address] [place] [address] Ace Arriaga PA-C [address] [place] [address] [place] Xiong Community Health Humanities Instructor [address] [place] [address] 06/18/2023 4:00 PM EDT Office Visit Hematology/Oncology [facility] [address] [facility] [place] [address] Rigoberto Aguilera MD [address] [facility] [place] [address] 06/20/2023 9:30 AM EDT Scheduled Telephone [facility], [facility] [address] [facility] [place] [address] Maia Shah, MIGUELN [address] [facility] [place] [address] 06/28/2023 8:00 AM EDT Office Visit [facility] [address] [facility] [place] [address] Kalen Ribeiro MD [address] [place] [address] 08/01/2023 3:00 PM EDT Office Visit Orthopaedics [facility] [address] [place] [address] Chaav Huff PA-C [address] [place] [address] 08/08/2023 2:20 PM EDT Office Visit Otolaryngology/Head & Neck/Facial Plastic Surgery [address] [place] [address] Joesph Yun MD [address] [place] [address] 09/02/2023 9:00 AM EDT Office Visit Cardiology, [facility] [address] [facility] [place] [address] Halley Preston CRNP [address] [place] [address] 10/01/2023 10:30 AM EDT Rehab Services Voice Lab, [address] [address] Lance Samuels, [facility] BUFFER [address] [place] [address] 10/01/2023 11:00 AM EDT Appointment Radiology, [facility] [address] [place] [address] 02/10/2024 10:00 AM EST Cardiac Studies Cardiology, [facility] [address] [facility] [place] [address] [facility] [address] [place] [address] 02/13/2024 8:15 AM EST Cardiac Studies Cardiac Studies, [facility] [address] [place] Health Maintenance Due Date Last Done Comments Zoster Vaccines (2 of 3) 07/17/2007 05/22/2007 COVID-19 Vaccine (2022- season) 2022 12/26/2021, 02/14/2021, 06/09/2020, Additional history exists DXA Scan 02/14/2023 02/14/2021, 09/2020, 07/02/2017, Additional history exists GFR 11/21/2023 05/21/2023, 07/2023, 05/13/2023, Additional history exists Depression Screening 04/02/2024 04/02/2023 TSH 05/09/2024 05/10/2023, 04/11, 04/15/2023, Additional history exists CKD PHOS USE SMARTSET 28215 05/13/202407/2023, 05/13/2023, 05/12/2023, Additional history exists Albumin/Creatinine Ratio 05/20/2024 024, 06/08/2022, 06/08/2021 CKD HGB USE SMARTSET 08546 05/20/202405/20, 05/21/2023, 05/14/2023, Additional history exists DTaP,Tdap,and Td Vaccines (2 - Td or Tdap) 08/14/2024 08/14/2014, 01/25/2000 Pneumococcal Vaccine: 65+ Years Completed 01/06/2015, 08/19/2007 VITAMIN D LEVEL ONCE IN A LIFETIME-USE SMARTSET# 69821 Completed 12/11/2018, 07/07/2018, 10/06/2010 Influenza Vaccine (FLU [...] this encounter Medical Devices Implanted Type Area International Account Executive Device Identifier Shelf Expiration Date Model / Serial / Lot [place]gewood Pacemaker-12/05 Implanted:Qty: 1 on 12/05/2022 ICD Chest [employer] : CARDIAC SURGERY 09/02/2025 [id number] / / . Lead-12/05/2022 Implanted:Qty: 2 on 12/05/2022 Lead Chest [employer] : CARDIAC SURGERY 10/28/2025 [id number] AND 3830 / / . Balloon Cath Pacing [id number] - [id number] Implanted:Qty: 1 on 09/20/2020 at [facility] BARD : MEDICAL [id number] 07/08/2022 520 007P / / [id number] Proglide Perclose 46887-36 X10 - [id number] Implanted:Qty: 1 on 09/20/2020 at [facility] : VASCULAR DEVICES [id number] 06/08/2022 85972-48 / / [id number] Valve Bg 3 Ultra 23mm - [id number] Implanted:Qty: 1 on 09/20/2020 by Dimitri Maya MD at [facility] [employer] [id number] 09/22/2022 [id number] / / . Lead Tempo Temp Pacing - [id number] Implanted:Qty: 1 on 09/20/2020 at [facility] [employer] [id number] 06/28/2021 [id number] / / [id number] documented as of this encounter Additional Health [...] the patient have Health Care Power of Rhic Systems Safety Engineer? No Full Code 09/25/2020 6:44 PM 09/26/2020 6:50 PM This order reflects the patients wishes and were consensually agreed upon. Care Teams Metal Temperer Relationship Specialty Start Date End Date Kalen Ribeiro MD [address] [place] [address] PCP - General 12/15/01 documented as of this encounter
--- OUTSIDE RECORDS SUMMARY | 2023-06-01 11:07 | External Medical Summary | Summary of Care ---
Author Name Unknown Organization [facility] Address [address] [place] [address] Phone [phone] Care Team Providers Care Coding Spec Name Role Phone Kalen Ribeiro MD Primary Care Provider +1- [phone] Reason for Visit * Reason Comments [facility]: Enrollment Encounter Details Date Type Department Care Team ([facility] st Contact Info) Description 05/24/2023 12:30 PM EDT Home Visit [facility], [facility] [address] [facility] [place] [address] Adina Bonilla RN [address] [place] [address] Allergies Active Allergy Reactions Criticality Noted Date [...] aorta 07/14/2021 Atherosclerotic heart diseas e of [place] coronary artery with other forms of angina [...] 30 Mcg, IM, 12 yrs and above ([employer]) 12/26/2021 Pneumococcal Conjugate Vacc, 13 Valent (Prevnar) [...] on file documented as of this encounter Last Filed Vital Signs Vital Sign Reading Time Taken Comments Blood Pressure 122/70 05/24/2023 12:33 PM EDT Pulse 75 05/24/2023 12:33 PM EDT Temperature 36.7 C (98 F) 05/24/2023 12:33 PM EDT Respiratory Rate 18 05/24/2023 12:33 PM EDT Oxygen Saturation 98% 05/24/2023 12:33 PM EDT Inhaled Oxygen Concentration - - Weight 49.4 kg (109 lb) 05/24/2023 12:33 PM EDT Height - - Body Mass Index 23.58 05/17/2023 11:11 AM EST documented in this encounter Functional Status Functional Status Response [...] No 05/10/2023 documented as of this encounter Progress Notes * Adina Bonilla RN - 05/24/2023 9:16 AM EDT [facility] Wrapper StripperCollateral Specialist Visit Date: 05/24/2023 Time: 9:18 AM Name: Marie Nieves : 1940 Current Concerns: Pt seen for enrollment to [facility] Admitted to [facility] 05/09 - 05/14/23 Dx: C-diff, Failure to Thrive, neutrophilia Hx includes: Stenosis of celiac artery, Afib, SSS, Cardiac pacemaker in situ, St 3a CKD, HTN, pulmonary embolism, severe protein energy malnutrition, sp TAVR, GERD, hypothyroidism, dyslipidemia Pt [place] [facility] with poor oral intake and unintentional wt loss - dtr reported that pt lost about 20 lbs since March - was having dyspagia that stared around 03/13/23 and since has had a functional decline The dyspagia seemed to resolve over time but anorexia continued Started on Vancomycin at hospital for cdiff infection Started on Remeron for appetite stimulation and depressive symptoms 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 [employer] Pt reports she she is no longer having loose stools Had a small bm since home and it was more formed Denies abdominal pain Reports she was nauseated yesterday Pt reports she is getting home health services but unsure of which company - does not have a folderor magnet with their name on it She reports she will be getting SN, PT and OT She is working with solid surface fabricator She is to drink 3 Boost breeze clear a day but states they are too filling and can usually only drink 2 a day Was not able to go through meds today Dtr was not present and pt does not do own meds She requested we wait until dtr is present Physical Exam: BP 122/70 | Pulse 75 | Temp 36.7 C (98 F) | Resp 18 | Wt 49.4 kg (109 lb) | SpO2 98% | BMI 23.58 kg/m | BSA 1.41 m Pain 0 Physical Exam Cardiovascular: Rate and Rhythm: Normal rate and regular rhythm. Pulses: Normal pulses. Heart sounds: Normal heart sounds. Pulmonary: Effort: Pulmonary effort is normal. Breath sounds: Normal breath sounds. Abdominal: General: Bowel sounds are normal. Palpations: Abdomen is soft. Musculoskeletal: Right lower leg: Edema (+1) present. Left lower leg: Edema (+1) present. Skin: General: Skin is warm and dry. Coloration: Skin is pale. Neurological: Mental Status: She is alert and oriented to person, place, and time. Problems/Symptoms: Review of Systems Constitutional: Positive for fatigue. HENT: Negative. Eyes: Positive for visual disturbance (cataract left eye). Respiratory: Positive for cough (white or clear mucus, chronic). Cardiovascular: Positive for leg swelling. Gastrointestinal: Negative. Endocrine: Positive for cold intolerance. Genitourinary: Negative. Musculoskeletal: Positive for gait problem. Skin: Negative. Neurological: Positive for weakness. Psychiatric/Behavioral: Negative. Medication Reconciliation: (See medication list) Does patient take medications as ordered: Yes Patient Well Being: PHQ2/9: No questionnaires available. Pt lives in one story basement apartment of dtr and son in law's home. Dogs upstairs but no pets inher apartments Dtr is main caregiver Dtr helps with showering, pt is able to sponge bath on her own Denies any falls Dtr is main transportation [facility] Completed this Visit: Yes. [facility]: Reason Completed: Enrollment [facility] ([facility]) Fall Risk Assessment Tool Age 65+: Yes (05/24/23 1200) Diagnosis (3 or more co-existing): Yes (05/24/23 1200) Prior history of falls within 3 months: No (05/24/23 1200) Incontinence: No (05/24/231199) Visual impairment: Yes (05/24/23 1200) Impaired functional mobility: Yes (05/24/231199) Environmental hazards: No (05/24/231199) Poly Pharmacy (4 or more prescriptions - any type): Yes (05/24/231199) Pain affecting level of function: No (05/24/231199) Cognitive impairment: No (05/24/231199) Score - a score of 4 or more is considered at risk for fallin (05/24/231199) [facility] Interventions: Fall education provided, reviewed/provided Fall brochure Advanced Care Planning: No documentation, acp in progress. Patient's Goals of Care: Eat more Get stronger Go to own home Reinforcement/Education: Educated on home safety: Create a fall proof home Clear floors of clutter, loose wires, throw rugs, and cords. Make sure halls, stairways, and entrances are well lit. Install a nightlight in your bedroom, hallway and bathroom. Install grab bars or handrails in the bathroom and on stairs. Use a non-skid tub/shower mat. Avoid climbing on a chair; instead use a step stool with a high handrail. Keep sidewalks and steps in good repair Keep steps and sidewalks free of snow and ice. Using aids to support and prevent falls If you have poor balance or have fallen in the past, consider additional support such as a cane or walker. Use a cane with good support and that is the proper length for you. Use a walker if a cane doesnt provide enough support. Avoid medications that increase the risk of falling by causing dizziness, change in sensation or slowed reflexes. Certain medicines may cause falls - blood pressure pills, heart medicines, water pills, or sleepingpills. Be sure to understand each medicine that you are taking and any side effects that may occur. Improve your balance and flexibility with muscle strengthening exercises. Ask your health care provider for some exercises that will be right for you. Reinforced safety education and fall prevention. and Reinforced medication regimen. Timing., Dosing., and Purspose. Treatment/Plan: Continue meds as prescribed/reviewed Boost edwareze clear - 3x a day Media Consultant Outside Sales at involved [employer] as much as possible Keep all appts as scheduled and attend Home Interventions Provided: Home Intervention: Other; eval Reinforced current Plan of Care, including self-management and medication regimen Patient's 'Red Flags': Increased weakness Wt decreasing Feeling faint or dizzy Patient Needs to Remember: Call [facility] at with any new or worsening health concerns or problems, red flag symptoms. Referrals Needed: Other none Follow Up: Is there cellular connectivity/connectivity in the home? Yes Does the patient have internet in the home? Yes Patient encouraged to call the intake phone number for all urgent but not emergent issues. Is the patient new to [facility] within the last 30 days? Yes, Is this a Transitions of Care visit? Yes, this is the 2nd visit or later, Yes cellular connectivity. Was their Readmission Risk Score less than 18%? No Provider is in agreement with Plan of Care: Yes Scheduled to follow up with patient in one week with provider, 3 weeks with RNCM . Adina Bonilla RN 05/24/2023 9:18 AM documented in this encounter Plan of Treatment Upcoming Encounters Date Type Department Care Team (Late st Contact Info) Description 05/29/2023 11:30 AM EDT Telemedicine [facility], [facility] [place] [address] Ace Arriaga PA-C [address] [place] [address] [place] X[place]g, [facility] Child Welfare Counselor [address] [place] [address] 06/18/2023 4:00 PM EDT Office Visit Hematology/Oncology [facility] [address] [place] [phone] Rigoberto Aguilera MD [address] [address] 06/28/2023 8:00 AM EDT Office Visit [facility] [address] [facility] [phone] Kalen Ribeiro MD [address] [place] [address] 08/01/2023 3:00 PM EDT Office Visit Orthopaedics [facility] [address] [place] [address] Chava Huff PA-C [address] [place] [address] 08/08/2023 2:20 PM EDT Office Visit Otolaryngology/Head & Neck/Facial Plastic Surgery [address] [place] [address] Joesph Yun MD [address] [place] [address] 09/02/2023 9:00 AM EDT Office Visit Cardiology, [facility] [place] [address] Halley Preston CRNP [address] [place] [address] 10/01/2023 10:30 AM EDT Rehab Services Voice Lab, [address] [address] Lance Samuels, [facility]-ARCHITECTURAL SALES CONSULTANT [address] [place] [address] 10/01/2023 11:00 AM EDT Appointment Radiology, [address] [phone] 02/10/2024 10:00 AM EST Cardiac Studies Cardiology, [facility] [address] [place] [address] [facility] [address] [place] [address] 02/13/2024 8:15 AM EST Cardiac Studies Cardiac Studies, [facility] [address] [place] Health Maintenance Due Date Last Done Comments Zoster Vaccines (2 of 3) 07/17/2007 05/22/2007 COVID-19 Vaccine ( season) 2022 12/26/2021, 02/14/2021, 06/09/2020, Additional history exists DXA Scan 02/14/2023 02/14/2021, 09/2020, 07/02/2017, Additional history exists GFR 11/21/2023 05/21/2023, 07/2023, 05/13/2023, Additional history exists Depression Screening 04/02/2024 04/02/2023 TSH 05/09/2024 05/10/2023, 04/11, 04/15/2023, Additional history exists CKD PHOS USE SMARTSET 31654 05/13/202407/2023, 05/13/2023, 05/12/2023, Additional history exists Albumin/Creatinine Ratio 05/20/2024 024, 06/08/2022, 06/08/2021 CKD HGB USE SMARTSET 37737 05/20/202405/20, 05/21/2023, 05/14/2023, Additional history exists DTaP,Tdap,and Td Vaccines (2 - Td or Tdap) 08/14/2024 08/14/2014, 01/25/2000 Pneumococcal Vaccine: 65+ Years Completed 01/06/2015, 08/19/2007 VITAMIN D LEVEL ONCE IN A LIFETIME-USE SMARTSET# [id number] Completed 12/11/2018, 07/07/2018, 10/06/2010 Influenza Vaccine (FLU [...] this encounter Medical Devices Implanted Type Area Director Reactor Projects Device Identifier Shelf Expiration Date Model / Serial / Lot Molly Pacemaker-12/05 Implanted:Qty: 1 on 12/05/2022 ICD Chest [employer] : CARDIAC SURGERY 09/02/2025 [id number] / / . Lead-12/05/2022 Implanted:Qty: 2 on 12/05/2022 Lead Chest [employer] : CARDIAC SURGERY 10/28/2025 [id number] AND 3830 / / . Balloon Cath Pacing [id number] - [id number] Implanted:Qty: 1 on 09/20/2020 at [facility] : MEDICAL [id number] 07/08/2022 520 [id number] / / [id number] Proglide Perclose 11911-06 X10 - [id number] Implanted:Qty: 1 on 09/20/2020 at [facility] : VASCULAR DEVICES [id number] 06/08/2022 33022-79 / / [id number] Valve Bg 3 Ultra 23mm - [id number] Implanted:Qty: 1 on 09/20/2020 by Dimitri Maya MD at [facility] [employer] [id number] 09/22/2022 [id number] / / . Lead Tempo Temp Pacing - [id number] Implanted:Qty: 1 on 09/20/2020 at [facility] [employer] [id number] 06/28/2021 [id number] / / [id number] documented as of this encounter Additional Health [...] the patient have Health Care Power of Pipelines Supervisor? No Full Code 09/25/2020 6:44 PM 09/26/2020 6:50 PM This order reflects the patients wishes and were consensually agreed upon. Care Teams Coding Spec Relationship Specialty Start Date End Date Kalen Ribeiro MD [address] [place] [address] PCP - General 12/15/01 documented as of this encounter"
--- OUTSIDE RECORDS SUMMARY | 2023-06-01 11:07 | External Medical Summary | Summary of Care ---
Author Name Unknown Organization [facility] Address [address] [place] [address] Phone [phone] Care Team Providers Care Tetryl Boiling Tub Operator Name Role Phone Kalen Ribeiro MD Primary Care Provider +1- [phone] Reason for Visit * Reason Onset Date Comments Appointment 05/29/2023 Encounter Details Date Type Department Care Team ([facility] st Contact Info) Description 05/29/2023 Telephone [facility], [facility] [address] [facility] [place] [address] Services, Scheduling [address] [place] [address] Appointment (/) Allergies Active Allergy Reactions Criticality Noted Date Comments Heparin 10/07/2020 Concern for HIT documented as of this encounter (statuses as of 05/29/2023) Medications Medication Sig Dispensed Refills Start Date [...] as of this encounter (statuses as of 05/29/2023) Active Problems Problem Noted Date Diagnosed Date [...] aorta 07/14/2021 Atherosclerotic heart diseas e of [place] coronary artery with other forms of angina [...] as of this encounter (statuses as of 05/29/2023) Resolved Problems Problem Noted Date Diagnosed Date [...] as of this encounter (statuses as of 05/29/2023) Immunizations Name Administration Dates Next Due COVID-19 [...] encounter Miscellaneous Notes * Telephone Encounter - Azucena Maciel OSA - 05/29/2023 9:27 AM EDT Per Request via TT Adinaconrado Bonilla she advised pts daughter canceled appt and for us to reschedule appt.. Called s/w pts daugther she advised not to schedule an appt right now she has multiple appts going on at this time. documented in this encounter Plan of Treatment Upcoming Encounters Date Type Department Care Team (Late st Contact Info) Description 06/18/2023 4:00 PM EDT [facility] [address] [facility] [place] [phone] Rigoberto Aguilera MD [address] [facility] [place] [address] 06/20/2023 9:30 AM EDT Scheduled Telephone [facility], [facility] [address] [place] [address] Maia Shah, RDN [address] [place] [address] 06/28/2023 8:00 AM EDT Office Visit [facility] [address] [place] [address] Kalen Ribeiro MD [address] [place] [address] 08/01/2023 3:00 PM EDT Office Visit Orthopaedics [facility] [address] [facility] [place] [address] Chava Huff PA-C [address] [place] [address] 08/08/2023 2:20 PM EDT Office Visit Otolaryngology/Head & Neck/Facial Plastic Surgery [address] [facility] [place] [address] Joesph Yun MD [address] [place] [address] 09/02/2023 9:00 AM EDT Office Visit Cardiology, [facility] [address] [facility] [place] [address] Halley Preston CRNP [address] [facility] [place] [address] 10/01/2023 10:30 AM EDT Rehab Services Voice Lab, [address] [address] Lance Samuels, [facility]-[employer] RAY EQUIPMENT MECHANIC [address] [facility] [place] [address] 10/01/2023 11:00 AM EDT Appointment Radiology, [facility] [address] [place] [address] 02/10/2024 10:00 AM EST Cardiac Studies Cardiology, [facility] [address] [facility] [address] [facility] [address] [facility] [address] 02/13/2024 8:15 AM EST Cardiac Studies Cardiac Studies, [facility] [address] Health Maintenance Due Date Last Done Comments Zoster Vaccines (2 of 3) 07/17/2007 05/22/2007 COVID-19 Vaccine ( season) 2022 12/26/2021, 02/14/2021, 06/09/2020, Additional history exists DXA Scan 02/14/2023 02/14/2021, 09/2020, 07/02/2017, Additional history exists GFR 11/21/2023 05/21/2023, 07/2023, 05/13/2023, Additional history exists Depression Screening 04/02/2024 04/02/2023 TSH 05/09/2024 05/10/2023, 04/11, 04/15/2023, Additional history exists CKD PHOS USE SMARTSET 43363 05/13/202407/2023, 05/13/2023, 05/12/2023, Additional history exists Albumin/Creatinine Ratio 05/20/2024 024, 06/08/2022, 06/08/2021 CKD HGB USE SMARTSET 41481 05/20/202405/20, 05/21/2023, 05/14/2023, Additional history exists DTaP,Tdap,and Td Vaccines (2 - Td or Tdap) 08/14/2024 08/14/2014, 01/25/2000 Pneumococcal Vaccine: 65+ Years Completed 01/06/2015, 08/19/2007 VITAMIN D LEVEL ONCE IN A LIFETIME-USE SMARTSET# 58113 Completed 12/11/2018, 07/07/2018, 10/06/2010 Influenza Vaccine (FLU [...] this encounter Medical Devices Implanted Type Area Programmable Logic Controller Assembler Device Identifier Shelf Expiration Date Model / Serial / Lot Plain View Pacemaker-12/05 Implanted:Qty: 1 on 12/05/2022 ICD Chest [employer] : CARDIAC SURGERY 09/02/2025 [id number] / / . Lead-12/05/2022 Implanted:Qty: 2 on 12/05/2022 Lead Chest [employer] : CARDIAC SURGERY 10/28/2025 [id number] AND 3830 / / . Balloon Cath Pacing [id number] - [id number] Implanted:Qty: 1 on 09/20/2020 at [facility] : MEDICAL [id number] 07/08/2022 520 007P / / [id number] Proglide Perclose 93371-67 X10 - [id number] Implanted:Qty: 1 on 09/20/2020 at [facility] : VASCULAR DEVICES [id number] 06/08/2022 [id number] / / [id number] Valve Bg 3 Ultra 23mm - [id number] Implanted:Qty: 1 on 09/20/2020 by Dimitri Maya MD at [facility] [employer] [id number] 09/22/2022 [id number] / / . Lead Tempo Temp Pacing - [id number] Implanted:Qty: 1 on 09/20/2020 at [facility] [employer] [id number] 06/28/2021 T1106 / / [id number] documented as of this encounter Additional Health [...] the patient have Health Care Power of Assembler Billiard Table? No Full Code 09/25/2020 6:44 PM 09/26/2020 6:50 PM This order reflects the patients wishes and were consensually agreed upon. Care Teams Tetryl Boiling Tub Operator Relationship Specialty Start Date End Date Kalen Ribeiro MD [address] [facility] [place] [address] PCP - General 12/15/01 documented as of this encounter
--- OUTSIDE RECORDS SUMMARY | 2023-06-01 11:07 | External Medical Summary | Summary of Care ---
Author Name Unknown Organization [facility] Address [address] [place] [address] Phone [phone] Care Team Providers Care Restaurant Supervisor Name Role Phone Ottoniel Kenyon MD Primary Care Provider +1- [phone] Reason for Visit * Reason Comments eRx-Medication Refill Encounter Details Date Type Department Care Team (Late st Contact Info) Description 05/25/[address] [facility] [address] [place] [address] Ottoniel Kenyon MD [address] [place] [address] Hypothyroidism, unspecified type Allergies Active Allergy Reactions Criticality Noted Date Comments Heparin 10/07/2020 Concern for HIT documented as of this encounter (statuses as of 05/26/2023) Medications Medication Sig Dispensed Refills Start Date [...] 10/05/2020 Active Rocklatan 0.02-0.005 % Ophthalmic Solution (Netarsudil-Katy noprost) Instill 1 Drop into eye in the [...] Active Atorvastatin Calcium 20 MG Oral Tablet (Lipitor)Indicat ions:Dyslipidemi a, goal LDL below 70 TAKE 1 TABLET BY MOUTH ONCE DAILY 90 Tablet 3 01/03/2023 Active Potassium Chloride Estefany ER 20 MEQ Oral Tablet Extended ReleaseIndicatio ns:Hypokalemia Take 1 tablet by mouth twice per day for 3 days and then once per day. 90 Tablet 1 04/30/2023 Active Culturelle Oral Capsule Take 1 Capsule by mouth two times per day (morning & before bedtime). 60 Capsule 0 05/14/2023 Active Mirtazapine 15 MG Oral Tablet (Remeron) Take 1 Tablet by mouth at bedtime. 30 Tablet 0 05/14/2023 Active Levothyroxine Sodium 100 MCG Oral Tablet (Levoxyl)Indicat ions:Hypothyroid ism, unspecified type TAKE 1 TABLET BY MOUTH EVERY MORNING AT LEAST 30 MINUTES PRIOR TO BREAKFAST OR OTHER MEDICATIONS 90 Tablet 1 05/26/2023 Active Levothyroxine Sodium 100 MCG Oral Tablet (Levoxyl)Indicat ions:Hypothyroid ism, unspecified type Take 1 Tablet by mouth in the morning. (at least 30 min prior to breakfast or other meds). 90 Tablet 3 06/12/2022 4 Discontinued documented as of this encounter (statuses as of 05/26/2023) Active Problems Problem Noted Date Diagnosed Date [...] aorta 07/14/2021 Atherosclerotic heart diseas e of [place] coronary artery with other forms of angina [...] as of this encounter (statuses as of 05/26/2023) Resolved Problems Problem Noted Date Diagnosed Date [...] as of this encounter (statuses as of 05/26/2023) Immunizations Name Administration Dates Next Due COVID-19 [...] encounter Miscellaneous Notes * Telephone Encounter - Janusz Kincaid [facility] - 05/26/2023 8:02 AM EDT Signed Prescriptions: Disp Refills Levothyroxine Sodium 100 MCG Oral Tablet (*90 Tab*1 Sig: TAKE 1 TABLET BY MOUTH EVERY MORNING AT LEAST 30 MINUTES PRIOR TO BREAKFAST OR OTHER MEDICATIONSAuthorizingProvider: OTTONIEL KENYON User: JANUSZ KINCAID documented in this encounter Plan of Treatment Upcoming Encounters Date Type Department Care Team (Late st Contact Info) Description 05/29/2023 11:30 AM EDT Telemedicine [facility] [address] [facility] [place] [address] Ace Arriaga PA-C [address] [place] [address] [place], Community [facility] Flask Carrier [address] [place] [address] 06/18/2023 4:00 PM EDT Office Visit Hematology/Oncology [facility] [address] [phone] Rigoberto Aguilera MD [address] [address] 06/28/2023 8:00 AM EDT Office Visit [facility] [address] [place] [facility] [place] [address] Ottoniel Kenyon MD [address] [place] [address] 08/01/2023 3:00 PM EDT Office Visit Orthopaedics [facility] [address] [place] [address] Chava Huff PA-C [address] [place] [address] 08/08/2023 2:20 PM EDT Office Visit Otolaryngology/Head & Neck/Facial Plastic Surgery [address] [place] [address] Joesph Yun MD [address] [place] [address] 09/02/2023 9:00 AM EDT Office Visit Cardiology, [facility] [address] [place] [address] Halley Preston CRNP [address] [place] [address] 10/01/2023 10:30 AM EDT Rehab Services Voice Lab, [address] [address] Lance Samuels, [facility] [address] [place] [address] 10/01/2023 11:00 AM EDT Appointment Radiology, [facility] [address] [place] [address] 02/10/2024 10:00 AM EST Cardiac Studies Cardiology, [facility] [address] [address] [place], Pacer Clinic [facility] [address] [place] [address] 02/13/2024 8:15 AM EST Cardiac Studies Cardiac Studies, [facility] [address] [place] [address] Health Maintenance Due Date Last Done Comments Zoster Vaccines (2 of 3) 07/17/2007 05/22/2007 COVID-19 Vaccine ( season) 2022 12/26/2021, 02/14/2021, 06/09/2020, Additional history exists DXA Scan 02/14/2023 02/14/2021, 09/2020, 07/02/2017, Additional history exists GFR 11/21/2023 05/21/2023, 07/2023, 05/13/2023, Additional history exists Depression Screening 04/02/2024 04/02/2023 TSH 05/09/2024 05/10/2023, 04/11, 04/15/2023, Additional history exists CKD PHOS USE SMARTSET 31969 05/13/202407/2023, 05/13/2023, 05/12/2023, Additional history exists Albumin/Creatinine Ratio 05/20/2024 024, 06/08/2022, 06/08/2021 CKD HGB USE SMARTSET 38756 05/20/202405/20, 05/21/2023, 05/14/2023, Additional history exists DTaP,Tdap,and Td Vaccines (2 - Td or Tdap) 08/14/2024 08/14/2014, 01/25/2000 Pneumococcal Vaccine: 65+ Years Completed 01/06/2015, 08/19/2007 VITAMIN D LEVEL ONCE IN A LIFETIME-USE SMARTSET# 48814 Completed 12/11/2018, 07/07/2018, 10/06/2010 Influenza Vaccine (FLU [...] this encounter Medical Devices Implanted Type Area Vessel Scrapper Device Identifier Shelf Expiration Date Model / Serial / Lot Molly Pacemaker-12/05 Implanted:Qty: 1 on 12/05/2022 ICD Chest MEDTRONIC : CARDIAC SURGERY 09/02/2025 [id number] / / . Lead-12/05/2022 Implanted:Qty: 2 on 12/05/2022 Lead Chest [employer] : CARDIAC SURGERY 10/28/2025 [id number] AND 3830 / / . Balloon Cath Pacing [id number] - [id number] Implanted:Qty: 1 on 09/20/2020 at [facility] LABS [facility] : MEDICAL [id number] 07/08/2022 520 007P / / [id number] Proglide Perclose 87476-70 X10 - [id number] Implanted:Qty: 1 on 09/20/2020 at [facility]S [facility] : VASCULAR DEVICES [id number] 06/08/2022 62633-00 / / [id number] Valve Bg 3 Ultra 23mm - [id number] Implanted:Qty: 1 on 09/20/2020 by Dimitri Maya MD at [facility]S [facility] [employer] [id number] 09/22/2022 [id number] / / . Lead Tempo Temp Pacing - [id number] Implanted:Qty: 1 on 09/20/2020 at [facility] [employer] [id number] 06/28/2021 [id number] / / [id number] documented as of this encounter Visit Diagnoses Diagnosis Hypothyroidism, unspecified type documented in this encounter Additional Health Concerns [...] the patient have Health Care Power of Dough Catcher? No Full Code 09/25/2020 6:44 PM 09/26/2020 6:50 PM This order reflects the patients wishes and were consensually agreed upon. Care Teams Restaurant Supervisor Relationship Specialty Start Date End Date Ottoniel Kenyon MD [address] [place] [address] PCP - General 12/15/01 documented as of this encounter
--- OUTSIDE RECORDS SUMMARY | 2023-06-01 11:07 | External Medical Summary | Summary of Care ---
Author Name Unknown Organization [facility] Address [address] [place] [address] Phone [phone] Care Team Providers Care Lawn Care Professional Name Role Phone Kalen Ribeiro MD Primary Care Provider +1- [phone] Reason for Visit * Reason Onset Date Comments Appointment 05/16/2023 Encounter Details Date Type Department Care Team ([facility] st Contact Info) Description 05/16/2023 10:30 AM EST [facility]uled [facility] 132 [facility] [place] [address] Coordinator, [facility] 132 [facility] [place] [address] Allergies Active Allergy Reactions Criticality Noted Date [...] 10/05/2020 Active Rocklatan 0.02-0.005 % Ophthalmic Solution (Netarsudil-Latan oprost) Instill 1 Drop into eye in the [...] Active Atorvastatin Calcium 20 MG Oral Tablet (Lipitor)Indicati ons:Dyslipidemia, goal LDL below 70 TAKE 1 TABLET BY MOUTH ONCE DAILY 90 Tablet 3 01/03/2023 Active Potassium Chloride Estefany ER 20 MEQ Oral Tablet Extended ReleaseIndication s:Hypokalemia Take 1 tablet by mouth twice per [...] aorta 07/14/2021 Atherosclerotic heart diseas e of [place] coronary artery with other forms of angina [...] 06/18/2023 4:00 PM EDT Office Visit Hematology/Oncology [facility] [place] [address] [place] [address] Rigoberto Aguilera MD [address] [place] [address] 06/20/2023 9:30 AM EDT Scheduled Telephone [facility], [place] [facility] [address] [facility] [place] [address] Maia Shah RDN [address] [facility] [place] [address] 06/28/2023 8:00 AM EDT Office Visit [facility] [address] [place] [phone] Kalen Ribeiro MD [address] [place] [address] 08/01/2023 3:00 PM EDT Office Visit Orthopaedics [facility] [address] [place] [address] Chava Huff PA-C [address] [facility] [address] 08/08/2023 2:20 PM EDT Office Visit Otolaryngology/Head & Neck/Facial Plastic Surgery [address] [place] [address] Joesph Yun MD [address] [place] [address] 09/02/2023 9:00 AM EDT Office Visit Cardiology, [facility] [address] [facility] [place] [address] Halley Preston CRNP [address] [place] [address] 10/01/2023 10:30 AM EDT Rehab Services Voice Lab, [place] [address] [place] [address] Lance Samuels, [facility] APPLICATOR [address] [place] [address] 10/01/2023 11:00 AM EDT Appointment Radiology, [facility] [address] [place] [address] 02/10/2024 10:00 AM EST Cardiac Studies Cardiology, [facility] [place] [address] [facility], Pacer [facility] 132 [facility] [place] [address] 02/13/2024 8:15 AM EST Cardiac Studies Cardiac Studies, [facility] [address] [facility] [place] [address] Health Maintenance Due Date Last Done Comments Zoster Vaccines (2 of 3) 07/17/2007 05/22/2007 COVID-19 Vaccine ( season) 2022 12/26/2021, 02/14/2021, 06/09/2020, Additional history exists DXA Scan 02/14/2023 02/14/2021, 09/2020, 07/02/2017, Additional history exists GFR 11/21/2023 05/21/2023, 07/2023, 05/13/2023, Additional history exists Depression Screening 04/02/2024 04/02/2023 TSH 05/09/2024 05/10/2023, 04/11, 04/15/2023, Additional history exists CKD PHOS USE SMARTSET 11919 05/13/[address] 07/2023, 05/13/2023, 05/12/2023, Additional history exists Albumin/Creatinine Ratio 05/20/202405/20/ 024, 06/08/2022, 06/08/2021 CKD HGB USE SMARTSET 56042 05/20/202405/204, 05/21/2023, 05/14/2023, Additional history exists DTaP,Tdap,and Td Vaccines (2 - Td or Tdap) 08/14/2024 08/14/2014, 01/25/2000 Pneumococcal Vaccine: 65+ Years Completed 01/06/2015, 08/19/2007 VITAMIN D LEVEL ONCE IN A LIFETIME-USE SMARTSET# 16600 Completed 12/11/2018, 07/07/2018, 10/06/2010 Influenza Vaccine (FLU [...] this encounter Medical Devices Implanted Type Area Software Licensing Executive Device Identifier Shelf Expiration Date Model / Serial / Lot [place] Pacemaker-12/05 Implanted:Qty: 1 on 12/05/2022 ICD Chest [employer] : CARDIAC SURGERY 09/02/2025 [id number] / / . Lead-12/05/2022 Implanted:Qty: 2 on 12/05/2022 Lead Chest [employer] : CARDIAC SURGERY 10/28/2025 5076 AND 3830 / / . Balloon Cath Pacing [id number] - [id number] Implanted:Qty: 1 on 09/20/2020 at [facility]AC LABS [facility] : MEDICAL [id number] 07/08/2022 520 007P / / [id number] Proglide Perclose 11098-18 X10 - [id number] Implanted:Qty: 1 on 09/20/2020 at [facility]AC LABS [facility] : VASCULAR DEVICES [id number] 06/08/2022 08639-20 / / [id number] Valve Bg 3 Ultra 23mm - [id number] Implanted:Qty: 1 on 09/20/2020 by Dimitri Maya MD at [facility]ARD[facility]AC LABS [facility] [employer] [id number] 09/22/2022 [id number] / / . Lead Tempo Temp Pacing - [id number] Implanted:Qty: 1 on 09/20/2020 at [facility] [employer] [id number] 06/28/2021 T1106 / / [id number] documented as of this encounter Additional Health [...] the patient have Health Care Power of Membership Sales Advisor? No Full Code 09/25/2020 6:44 PM 09/26/2020 6:50 PM This order reflects the patients wishes and were consensually agreed upon. Care Teams Lawn Care Professional Relationship Specialty Start Date End Date Kalen Ribeiro MD [address] [facility] [place] [address] PCP - General 12/15/01 documented as of this encounter
--- OUTSIDE RECORDS SUMMARY | 2023-06-01 11:07 | External Medical Summary | Summary of Care ---
Author Name Unknown Organization [facility] Address [address] [place] [address] Phone [phone] Care Team Providers Care Assurance Auditor Name Role Phone Kalen Ribeiro MD Primary Care Provider +1- [phone] Reason for Visit * Reason Onset Date Comments Medical Nutrition Therapy 05/20/2023 Encounter Details Date Type Department Care Team (Late st Contact Info) Description 05/20/2023 9:30 AM EDT Scheduled Telephone [facility] [address] [facility] [place] [address] Ciara Mac RDN [address] [facility] [address] Allergies Active Allergy Reactions Criticality Noted Date Comments Heparin 10/07/2020 Concern for HIT documented as of this encounter (statuses as of 05/20/2023) Medications Medication Sig Dispensed Refills Start Date [...] 10/05/2020 Active Rocklatan 0.02-0.005 % Ophthalmic Solution (Netarsudil-Latanopr ost) Instill 1 Drop into eye in the morning and 1 Drop before bedtime. 0 Active Furosemide 20 MG Oral Tablet (Lasix) TAKE ONE TABLET BY MOUTH DAILY 90 Tablet 3 04/13/2022 Active Levothyroxine Sodium 100 MCG Oral Tablet (Levoxyl)Indications :Hypothyroidism, unspecified type Take 1 Tablet by mouth [...] Active Atorvastatin Calcium 20 MG Oral Tablet (Lipitor)Indications :Dyslipidemia, goal LDL below 70 TAKE 1 TABLET BY MOUTH ONCE DAILY 90 Tablet 3 01/03/2023 Active Potassium Chloride Estefany ER 20 MEQ Oral Tablet Extended ReleaseIndications:H ypokalemia Take 1 tablet by mouth twice per [...] as of this encounter (statuses as of 05/20/2023) Active Problems Problem Noted Date Diagnosed Date C. difficile colitis 05/13/2023 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 Neutrophilia 05/11/2023 Failure to thrive in adult 05/10/2023 Anorexia 04/15/2023 Leukocytosis 04/15/2023 Oropharyngeal dysphagia 03/18/2023 Other giant cell arteritis 03/15/2023 Sick sinus syndrome 03/15/2023 Atrial fibrillation 03/15/2023 Cardiac pacemaker in situ 12/05/2022 Chronic kidney disease, stage 3a 07/16/2022 Overview: Per CKD protocol 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 06/18/2022 Overview: Per CKD protocol Paroxysmal atrial fibrillation 03/29/2022 HIT (heparin-induced thrombocytopenia) 3 Atherosclerosis of aorta 07/14/2021 Atherosclerotic heart diseas e of [place] coronary artery with other forms of angina [...] as of this encounter (statuses as of 05/20/2023) Resolved Problems Problem Noted Date Diagnosed Date Resolved Date Sepsis 04/15/2023 05/10/2023 Primary open angle glaucoma (POAG) 03/29/2022 12/25/2022 [...] as of this encounter (statuses as of 05/20/2023) Immunizations Name Administration Dates Next Due COVID-19 [...] encounter Miscellaneous Notes * Telephone Encounter - Ciara Mac RDN - 05/20/2023 9:40 AM EDT Message sent to pt's PCP regarding findings from Saturday's appointment. Patient has appointment tomorrow, 05/20, with PCP. Continue to follow. Ciara Mac RDN, Clinical Dietitian II, [facility] Clinical Nutrition Services [facility] [address] [place] [address] Available via [employer] documented in this encounter Plan of Treatment Upcoming Encounters Date Type Department Care Team (Late st Contact Info) Description 05/21/2023 2:00 PM EDT Office Visit [facility] [address] [place] [address] Kalen Ribeiro MD [address] [place] [address] 05/24/2023 12:30 PM EDT [facility], [facility] [address] [place] [address] Tabby Mera, DONALD [address] [place] [address] 05/29/2023 11:30 AM EDT Telemedicine [facility], [facility] [address] [place] [address] Ace Arriaga PA-C [address] [place] [address] [place], Community [facility] Flat Clothier [address] [place] [address] 06/18/2023 4:00 PM EDT Office Visit Hematology/Oncology [facility] [address] [facility] [place], [place] [address] Rigoberto Aguilera MD 200 [facility] [place] [address] 06/28/2023 8:00 AM EDT Office Visit [facility] [address] [place] [address] Kalen Ribeiro MD [address] [place] [address] 08/01/2023 3:00 PM EDT Office Visit Orthopaedics [facility] [address] [place] [address] Chava Huff PA-C [address] [facility] [place] [address] 08/08/2023 2:20 PM EDT Office Visit Otolaryngology/Head & Neck/Facial Plastic Surgery [address] [place] [address] Joesph Yun MD [address] [place] [address] 09/02/2023 9:00 AM EDT Office Visit Cardiology, [facility] [address] [facility] [place] [address] Halley Preston CRNP [address] [place] [address] 10/01/2023 10:30 AM EDT Rehab Services Voice Lab, [address] [address] Lance Samuels, [facility] [address] [place] [address] 10/01/2023 11:00 AM EDT Appointment Radiology, [facility] [address] [place] [address] 02/10/2024 10:00 AM EST Cardiac Studies Cardiology, [facility] 132 [facility] [place] [address] [place], Pacer Clinic [facility] [address] [facility] [place] [address] 02/13/2024 8:15 AM EST Cardiac Studies Cardiac Studies, [facility] [address] [facility] [place] [address] Health Maintenance Due Date Last Done Comments Zoster Vaccines (2 of 3) 07/17/2007 05/22/2007 COVID-19 Vaccine ( season) 2022 12/26/2021, 02/14/2021, 06/09/2020, Additional history exists DXA Scan 02/14/2023 02/14/2021, 09/2020, 07/02/2017, Additional history exists Albumin/Creatinine Ratio 06/09/2023 06/08/2022, 05/11 GFR 11/14/2023 05/14/2023, 06/2023, 05/12/2023, Additional history exists Depression Screening 04/02/2024 04/02/2023 TSH 05/09/2024 05/10/2023, 04/11, 04/15/2023, Additional history exists CKD HGB USE SMARTSET 02830 05/13/202405/13, 05/14/2023, 05/13/2023, Additional history exists CKD PHOS USE SMARTSET 99120 05/13/20240 07/2023, 05/13/2023, 05/12/2023, Additional history exists DTaP,Tdap,and Td Vaccines (2 - Td or Tdap) 08/14/2024 08/14/2014, 01/25/2000 Pneumococcal Vaccine: 65+ Years Completed 01/06/2015, 08/19/2007 VITAMIN D LEVEL ONCE IN A LIFETIME-USE SMARTSET# 26865 Completed 12/11/2018, 07/07/2018, 10/06/2010 Influenza Vaccine (FLU [...] this encounter Medical Devices Implanted Type Area Rotary Drill Operator Device Identifier Shelf Expiration Date Model / Serial / Lot Molly Pacemaker-12/05 Implanted:Qty: 1 on 12/05/2022 ICD Chest [employer] : CARDIAC SURGERY 09/02/2025 [id number] / / . Lead-12/05/2022 Implanted:Qty: 2 on 12/05/2022 Lead Chest [employer] : CARDIAC SURGERY 10/28/2025 5076 AND 3830 / / . Balloon Cath Pacing [id number] - [id number] Implanted:Qty: 1 on 09/20/2020 at [facility]AC LABS [facility] : MEDICAL [id number] 07/08/2022 520 007P / / [id number] Proglide Perclose 11825-10 X10 - [id number] Implanted:Qty: 1 on 09/20/2020 at [facility] : VASCULAR DEVICES [id number] 06/08/2022 49843-66 / / [id number] Valve Bg 3 Ultra 23mm - [id number] Implanted:Qty: 1 on 09/20/2020 by Dimitri Maya MD at [facility] [employer] [id number] 09/22/2022 [id number] / / . Lead Tempo Temp Pacing - [id number] Implanted:Qty: 1 on 09/20/2020 at [facility] [employer] [id number] 06/28/2021 T1106 / / [id number] documented as of this encounter Additional Health [...] the patient have Health Care Power of Farm Mortgage Agent? No Full Code 09/25/2020 6:44 PM 09/26/2020 6:50 PM This order reflects the patients wishes and were consensually agreed upon. Care Teams Assurance Auditor Relationship Specialty Start Date End Date Kalen Ribeiro MD [address] [place] [address] PCP - General 12/15/01 documented as of this encounter
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
--- OUTSIDE RECORDS SUMMARY | 2023-06-01 11:07 | External Medical Summary ---
Author Name Unknown Address Unknown Organization [id number]:[facility]ATORY [facility] [place] [address] [place] [address] Laboratory Report Ordering Provider Test Date Status OTTONIELCHANTALE 05/21/2023 15:56:09 Final Normal: <30 mg/g creatinine< br/>High: 30-300 mg/g creatinine
Very High: >300 mg/g creatinine
Nephrotic: >2200 mg/g creatinine Observation Date Value Abnormality Reference (Units ) Status Albumin, Urine 05/21/2023 15:56:09 16.25 (mg/dL) Final Creatinine, Urine 05/21/2023 15:56:09 147 (mg/dL) Final Albumin/Creatinine [Mass Ratio] in Urine 05/21/2023 15:56:09 111 Above high normal <30 (mg/g Creat) Final Performing Location [facility] [address] [place] [address]
--- OUTSIDE RECORDS SUMMARY | 2023-06-01 11:07 | External Medical Summary ---
Author Name Unknown Address Unknown Organization [id number]:LABORATORY [facility] - [address] [facility] [address] Laboratory Report Ordering Provider Test Date Status BREE TORRES 05/21/2023 15:12:59 Final Please route results to Pt's PCP
PCP: OTTONIEL KENYON
[address] [facility]
[place] [address]
[phone]

Discharge Order Observation Date Value Abnormality Reference (Units ) Status BUN 05/21/2023 15:12:59 15 6-20 (mg/dL) Final Creatinine 05/21/2023 15:12:59 1.2 Above high normal 0.5-1.0 (mg/dL) Final Glomerular filtration rate/1.73 sq M.predicted [Volume Rate/Area] in Serum, Plasma or Blood by Creatinine-based formula (CKD-EPI) 05/21/2023 15:12:59 46 Below low normal >=60 (mL/min) Final eGFR is calculated based on the CKD-EPI 2020 equation SODIUM 05/21/2023 15:12:59 136 135-146 (m mol/L) Final Potassium 05/21/2023 15:12:59 3.6 3.5-5.1 (m mol/L) Final Cl 05/21/2023 15:12:59 100 98-107 (mm ol/L) Final CO2 05/21/2023 15:12:59 20 Below low normal 22- 32 (mmol/L) Final Anion gap 05/21/2023 15:12:59 16 Above high normal 7- 15 (mmol/L) Final Glucose 05/21/2023 15:12:59 112 70-120 (mg /dL) Final Calcium 05/21/2023 15:12:59 8.2 Below low normal 8.4 -10.2 (mg/dL) Final Performing Location LABORATORY [facility] - [address] [facility] [address]
--- OUTSIDE RECORDS SUMMARY | 2023-06-01 11:08 | External Medical Summary | Summary of Care ---
Author Name Unknown Organization [facility] Address [address] [place] [address] Phone [phone] Care Team Providers Care Projection Welding Machine Operator Name Role Phone Kalen Ribeiro MD Primary Care Provider [phone]- [phone] Reason for Visit * Reason Onset Date Comments [facility]: Screening 05/15/2023 Encounter Details Date Type Department Care Team ([facility] Contact Info) Description 05/15/2023 Telephone [facility], [facility] [address] [place] [address] [facility], Nurse [facility] [address] [place] [address] [facility]: Screening Allergies Active Allergy Reactions Criticality Noted Date Comments Heparin 10/07/2020 Concern for HIT documented as of this encounter (statuses as of 05/15/2023) Medications Medication Sig Dispensed Refills Start Date [...] as of this encounter (statuses as of 05/15/2023) Active Problems Problem Noted Date Diagnosed Date [...] aorta 07/14/2021 Atherosclerotic heart diseas e of [place] coronary artery with other forms of angina [...] as of this encounter (statuses as of 05/15/2023) Resolved Problems Problem Noted Date Diagnosed Date [...] as of this encounter (statuses as of 05/15/2023) Immunizations Name Administration Dates Next Due COVID-19 [...] encounter Miscellaneous Notes * Telephone Encounter - Jeanie Hensley LPN - 05/15/2023 12:02 PM EST Marie Nieves was referred as a potential candidate for enrollment for [facility]. A review of this chart was completed and: Marie meets criteria for [facility]. Jump to Initiation Referring care team was notified via : Epic communication documented in this encounter Plan of Treatment Upcoming Encounters Date Type Department Care Team (Late st Contact Info) Description 05/17/2023 11:00 AM EST Nutrition Services Nutrition, [facility] [address] [place] [address] Ciara Mac, RATNA [address] [place] [address] 05/21/2023 2:00 PM EDT Office Visit [place] [address] [facility] [phone] [facility] [address] [facility] [address] 06/18/2023 4:00 PM EDT Office Visit Hematology/Oncology [facility] [place] [facility] [place] [phone] Rigoberto Aguilera MD [address] [place] [address] 06/28/2023 8:00 AM EDT Office Visit [facility] [address] [facility] [phone] Kalen [facility] [address] [facility] [address] 08/01/2023 3:00 PM EDT Office Visit Orthopaedics [facility] [address] [facility] [place] [address] Chava Huff PA-C [address] [place] [address] 08/08/2023 2:20 PM EDT Office Visit Otolaryngology/Head & Neck/Facial Plastic Surgery [address] [place] [address] Joesph Yun MD [address] [place] [address] 09/02/2023 9:00 AM EDT Office Visit [facility]iology, [facility] [place] [address] Halley Preston CRNP [facility] [place] [address] 10/01/2023 10:30 AM EDT Rehab Services Voice Lab, [address] [address] Lance Samuels, [facility] [place] [address] 10/01/2023 11:00 AM EDT Appointment Radiology, [facility] [address] [place] [address] 02/10/2024 10:00 AM EST Cardiac Studies Cardiology, [facility] 132 [facility] [place] [address] [facility] 132 [facility] [place] [address] 02/13/2024 8:15 AM EST Cardiac Studies Cardiac Studies, [facility] [address] [place] [address] Health Maintenance Due Date Last Done Comments Zoster Vaccines (2 of 3) 07/17/2007 05/22/2007 COVID-19 Vaccine ( - 2022- season) 2022 12/26/2021, 02/14/2021, 06/09/2020, Additional history exists DXA Scan 02/14/2023 02/14/2021, 09/2020, 07/02/2017, Additional history exists Albumin/Creatinine Ratio 06/09/2023 06/08/2022, 05/11 GFR 11/14/2023 05/14/2023, 06/2023, 05/12/2023, Additional history exists Depression Screening 04/02/2024 04/02/2023 TSH 05/09/2024 05/10/2023, 04/11, 04/15/2023, Additional history exists CKD HGB USE SMARTSET 24094 05/13/202405/13, 05/14/2023, 05/13/2023, Additional history exists CKD PHOS USE SMARTSET 05699 05/13/202407/2023, 05/13/2023, 05/12/2023, Additional history exists DTaP,Tdap,and Td Vaccines (2 - Td or Tdap) 08/14/2024 08/14/2014, 01/25/2000 Pneumococcal Vaccine: 65+ Years Completed 01/06/2015, 08/19/2007 VITAMIN D LEVEL ONCE IN A LIFETIME-USE SMARTSET# [id number] Completed 12/11/2018, 07/07/2018, 10/06/2010 Influenza Vaccine (FLU [...] this encounter Medical Devices Implanted Type Area Worm Picker Device Identifier Shelf Expiration Date Model / Serial / Lot [place] Pacemaker-12/05 Implanted:Qty: 1 on 12/05/2022 ICD Chest [employer] : CARDIAC SURGERY 09/02/2025 [id number] / / . Lead-12/05/2022 Implanted:Qty: 2 on 12/05/2022 Lead Chest [employer] : CARDIAC SURGERY 10/28/2025 [id number] AND 3830 / / . Balloon Cath Pacing [id number] - [id number] Implanted:Qty: 1 on 09/20/2020 at [facility] BARD : MEDICAL [id number] 07/08/2022 520 007P / / [id number] Proglide Perclose 18709-68 X10 - [id number] Implanted:Qty: 1 on 09/20/2020 at [facility] : VASCULAR DEVICES [id number] 06/08/2022 [id number] / / [id number] Valve Bg 3 Ultra 23mm - [id number] Implanted:Qty: 1 on 09/20/2020 by Dimitri Maya MD at [facility] [employer] [id number] 09/22/2022 [id number] / / . Lead Tempo Temp Pacing - [id number] Implanted:Qty: 1 on 09/20/2020 at [facility] [email or web address] [id number] 06/28/2021 [id number] / / [id number] documented as of this encounter Additional Health [...] the patient have Health Care Power of Detective Lieutenant? No Full Code 09/25/2020 6:44 PM 09/26/2020 6:50 PM This order reflects the patients wishes and were consensually agreed upon. Care Teams Projection Welding Machine Operator Relationship Specialty Start Date End Date Kalen Ribeiro MD [address] [place] [address] PCP - General 12/15/01 documented as of this encounter
--- OUTSIDE RECORDS SUMMARY | 2023-06-01 11:08 | External Medical Summary | Summary of Care ---
Author Name Unknown Organization [facility] Address [address] [place] [address] Phone [phone] Care Team Providers Care Snowboarder Name Role Phone Kalen Ribeiro MD Primary Care Provider [phone]- [phone] Encounter Details Date Type Department Care Team (Late st Contact Info) Description 05/15/2023 Orders Only PATIENT PORTAL DO NOT DELETE THIS DEPT USED BY [place] [id number] Allergies Active Allergy Reactions Criticality Noted Date [...] aorta 07/14/2021 Atherosclerotic heart diseas e of [place] coronary artery with other forms of angina [...] st Contact Info) Description 05/17/2023 11:00 AM [facility] Nutrition Services Nutrition, [address] [place] [address] Ciara Mac, RDN [address] [place] [address] 05/21/2023 2:00 PM EDT Office Visit [facility] [address] [place] [facility] [place] [phone] Kalen Ribeiro MD [address] [place] [address] 06/18/2023 4:00 PM EDT Office Visit [facility]ematology/On[facility] [address] [facility] [place] [phone] Rigoberto Aguilera MD 200 [facility] [place], [place] [address] 06/28/2023 8:00 AM EDT Office Visit [facility] [address] [place] [facility] [place] [phone] Kalen Ribeiro MD [address] [place] [address] 08/01/2023 3:00 PM EDT Office Visit Orthopaedics [facility] [address] [place] [address] Chava Huff PA-C [address] [facility] [place] [address] 08/08/2023 2:20 PM EDT Office Visit Otolaryngology/Head & Neck/Facial Plastic Surgery [address] [place] [address] Joesph Yun MD [address] [place] [facility] [place] [address] 09/02/2023 9:00 AM EDT Office Visit Cardiology, [facility] [address] [place] [address] Halley Preston CRNP [address] [place] [address] 10/01/2023 10:30 AM EDT Rehab Services Voice Lab, [facility] [address] [place] [address] Lance Samuels, [facility] [address] [place] [address] 10/01/2023 11:00 AM EDT Appointment [facility], [facility] [address] [place] [phone] 02/10/2024 10:00 AM EST Cardiac Studies Cardiology, [facility] [address] [facility] [place] [address] [place], [facility] [address] [facility] [place] [address] 02/13/2024 8:15 AM EST Cardiac Studies Cardiac Studies, [facility] [address] [facility] [place] [address] Health Maintenance Due Date Last Done Comments Zoster Vaccines (2 of 3) 07/17/2007 05/22/2007 COVID-19 Vaccine ( season) 2022 12/26/2021, 02/14/2021, 06/09/2020, Additional history exists DXA Scan 02/14/2023 02/14/2021, 09/2020, 07/02/2017, Additional history exists Albumin/Creatinine Ratio 06/09/2023 06/08/2022, 05/11 GFR 11/14/2023 05/14/2023, 06/2023, 05/12/2023, Additional history exists Depression Screening 04/02/2024 04/02/2023 TSH 05/09/2024 05/10/2023, 04/11, 04/15/2023, Additional history exists CKD HGB USE SMARTSET 57022 05/13/202405/13, 05/14/2023, 05/13/2023, Additional history exists CKD PHOS USE SMARTSET 01421 05/13/2024 03/0 07/2023, 05/13/2023, 05/12/2023, Additional history exists DTaP,Tdap,and Td Vaccines (2 - Td or Tdap) 08/14/2024 08/14/2014, 01/25/2000 Pneumococcal Vaccine: 65+ Years Completed 01/06/2015, 08/19/2007 VITAMIN D LEVEL ONCE IN A LIFETIME-USE SMARTSET# 72918 Completed 12/11/2018, 07/07/2018, 10/06/2010 Influenza Vaccine (FLU [...] this encounter Medical Devices Implanted Type Area Fiberglass Product Tester Device Identifier Shelf Expiration Date Model / Serial / Lot Molly Pacemaker-12/05 Implanted:Qty: 1 on 12/05/2022 ICD Chest [employer] : CARDIAC SURGERY 09/02/2025 [id number] / / . Lead-12/05/2022 Implanted:Qty: 2 on 12/05/2022 Lead Chest [employer] : CARDIAC SURGERY 10/28/2025 5076 AND 3830 / / . Balloon Cath Pacing [id number] - [id number] Implanted:Qty: 1 on 09/20/2020 at CARDIAC LABS [facility] BARD : MEDICAL [id number] 07/08/2022 520 [id number] / / [id number] Proglide Perclose 14004-93 X10 - [id number] Implanted:Qty: 1 on 09/20/2020 at [facility]AC LABS [facility] : VASCULAR DEVICES [id number] 06/08/2022 [id number] / / [id number] Valve Bg 3 Ultra 23mm - [id number] Implanted:Qty: 1 on 09/20/2020 by Dimitri Maya MD at [facility] [employer] [id number] 09/22/2022 [id number] / / . Lead Tempo Temp Pacing - [id number] Implanted:Qty: 1 on 09/20/2020 at [facility]S [facility] [employer] [id number] 06/28/2021 T1106 / / [id number] documented as of this encounter Additional Health [...] the patient have Health Care Power of Government Affairs Manager? No Full Code 09/25/2020 6:44 PM 09/26/2020 6:50 PM This order reflects the patients wishes and were consensually agreed upon. Care Teams Snowboarder Relationship Specialty Start Date End Date Kalen Ribeiro MD [address] [facility] [place] [address] PCP - General 12/15/01 documented as of this encounter
--- OUTSIDE RECORDS SUMMARY | 2023-06-01 11:08 | External Medical Summary | Summary of Care ---
Author Name Unknown Organization [facility] Address [address] [place] [address] Phone [phone] Care Team Providers Care Freight Brake Operator Name Role Phone Ottoniel Kenyon MD Primary Care Provider [phone] Reason for Visit * Reason Comments Loss of Appetite 20 lb weight loss si nce 03/13 Dehydration Weakness, Generalized * Auth/Cert Specialty Diagnoses / Procedures Referred By Contac t Referred To Contact [facility] [address] [place] [address] Phone: [phone] Emergency Medicine [facility] [address] [place] [address] Referral ID Status Reason Start Date Expiration Date Visits Re quested Visits Authorized [id number] Encounter Details Date Type Department Care Team (Latest Contact Info) Description 05/10/2023 6:05 PM EST - 05/14/2023 1:20 PM [facility] Hospital Encounter GP[facility], [facility] [address] [address] [place] [address] Fortino Nieves DO [address], [place] [id number] Leidy Webb DO [address] [place] [address] Trixie Cloud MD [address] [place] [address] EKG Report Discharge Disposition: Home - Self Care Allergies Active Allergy Reactions Criticality Noted Date Comments Heparin 10/07/2020 Concern for HIT documented as of this encounter (statuses as of 05/15/2023) Medications Medication Sig Dispensed Refills Start Date End Date Status DORZOLAMIDE HCL-TIMOLOL MAL 22.3-6.8 MG/ML OP SOLN Instill 1 Drop into eye in the morning and 1 Drop before bedtime. 0 3 Active Acetaminophen ER 650 MG Oral Tablet Extended Release Take 1 Tablet by mouth every 8 hours as needed for Pain, Mild. 0 Active Aspirin 81 MG Oral Tablet Chewable Take 1 Tab by mouth daily. 30 Tab 3 1 Active Rocklatan 0.02-0.005 % Ophthalmic Solution (Netarsudil-Latano prost) Instill 1 Drop into eye in the morning and 1 Drop before bedtime. 0 Active Furosemide 20 MG Oral Tablet (Lasix) TAKE ONE TABLET BY MOUTH DAILY 90 Tablet 3 3 Active Levothyroxine Sodium 100 MCG Oral Tablet (Levoxyl)Indicatio ns:Hypothyroidism, unspecified type Take 1 Tablet by mouth in the morning. (at least 30 min prior to breakfast or other meds). 90 Tablet 3 3 Active Pantoprazole Sodium 40 MG Oral Tablet Delayed Release (Protonix) TAKE 1 TABLET BY MOUTH ONCE DAILY 90 Tablet 1 3 Active Famotidine 20 MG Oral Tablet (Pepcid) Take 1 Tablet by mouth in the morning and 1 Tablet before bedtime. 60 Tablet 11 3 Active Atorvastatin Calcium 20 MG Oral Tablet (Lipitor)Indicatio ns:Dyslipidemia, goal LDL below 70 TAKE 1 TABLET BY MOUTH ONCE DAILY 90 Tablet 3 3 Active Potassium Chloride Estefany ER 20 MEQ Oral Tablet Extended ReleaseIndications :Hypokalemia Take 1 tablet by mouth twice per day for 3 days and then once per day. 90 Tablet 1 4 Active Vancomycin HCl 50 MG/ML Oral Solution Reconstituted Take 2.5 mL by mouth every 6 hours for 9 days. Discard excess medication. 150 mL 0 4 05/23/19 24 Active Culturelle Oral Capsule Take 1 Capsule by mouth two times per day (morning & before bedtime). 60 Capsule 0 4 06/13/19 24 Active Mirtazapine 15 MG Oral Tablet (Remeron) Take 1 Tablet by mouth at bedtime. 30 Tablet 0 4 Active VITAMIN B-12 500 MCG OR TABS 2 Tablets. 0 4 05/11/19 24 Discontinued(Med ication List Clean Up) Biotin 5 MG Oral Capsule Take 2 Capsules by mouth in the morning. 0 05/11/19 24 Discontinued(Med ication List Clean Up) Sertraline HCl 25 MG Oral Tablet (Zoloft) Take 1 Tablet by mouth in the morning. 30 Tablet 5 4 05/14/19 24 Discontinued documented as of this encounter (statuses [...] aorta 07/14/2021 Atherosclerotic heart diseas e of [place] coronary artery with other forms of angina [...] Sign Reading Time Taken Comments Blood Pressure 131/63 05/14/2023 7:31 AM EST Pulse 76 05/14/2023 7:31 AM EST Temperature 37.7 C (99.9 F) 05/14/2023 7:31 AM ES T Respiratory Rate 16 05/14/2023 7:31 AM EST Oxygen Saturation 98% 05/14/2023 7:31 AM EST Inhaled Oxygen Concentration - - Weight 42.5 kg (93 lb 12.8 oz) 05/14/2023 8:00 A M EST Height 144.8 cm (4' 9") 05/10/2023 10:29 PM EST Body Mass Index 20.3 05/10/2023 10:29 PM EST documented in this encounter Functional Status [...] No 05/10/2023 documented as of this encounter Discharge Summaries * Uli Cortes PA-C - 05/14/2023 10:59 AM EST [address] [place] [address] Admission Date: 05/10/2023 Discharge Date: 05/14/2023 RECOMMENDED TO DO FOR NEXT PROVIDER(S): PCP, Ottoniel Kenyon MD Follow up 1 week post hospital discharge Follow up CBC/BMP in approximately four days Evaluate response to mirtazapine on depression and appetite REASON(S) FOR MEDICATION CHANGE(S): Oral vancomycin was started for treatment C diff infection Mirtazapine was started/resumed for depression and to aid in appetite stimulation DIS[facility]CHARGE[facility] Hospital Problems Diagnosis *Principal Diagnosis - C. difficile colitis Stenosis of celiac artery (HCC) Neutrophilia Failure to thrive in adult Atrial fibrillation (HCC) Sick sinus syndrome (HCC) Cardiac pacemaker in situ Chronic kidney disease, stage 3a (HCC) 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) Paroxysmal atrial fibrillation (HCC) History of pulmonary embolism Severe protein-energy malnutrition (HCC) Generalized weakness S/P TAVR (transcatheter aortic valve replacement) Gastroesophageal reflux disease without esophagitis HTN, goal below 140/90 Hypothyroidism Dyslipidemia, goal LDL below 130 Resolved Hospital Problems No resolved problems to display. 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 History obtained from both the patient and her daughter, Suri, via telephone. According to Suri and the patient, she had been completely independent and functional throughout the majority of last year. According to Suri, she began to develop dysphagia starting on 03/13/23 and has since been in a steady decline functionally. She was initially undergoing workup for new onset dysphagia, which included an EGD, barium esophogram, and formal VFSS w/ ENT. The EGD was notably normal as was the VFSS. Over time the dysphagia had seemingly resolved, but now there are ongoing issues with pure anorexia, described as a general disinterest in food and "queasiness" when attempting to eat. There is no pain, odynophagia, nausea, emesis. Since March the patient has lost approximately 20 lb unintentionally and Suri states that the patient has essentially gone 1 week now without any actual food intake, but was still supplementing with protein shakes. Over the past 1-2 days though, she hasn't even been eating those. Fluid intake is also diminished, but this was less of an issue. There were no reports of fevers, chills, or other infectious symptoms but, Suri does report at least 2 months of drenching night sweats (2-3x/week) to the point that the patient needs to change her clothes and sheets. Marie has been admitted to [facility] recently for similar symptoms, but no definitive cause has been identified. Of note, the patient has also had a fairly persistent neutrophilic leukocytosis without an obvious infectious etiology, though she was prescribed antibiotics for possible pneumonia which did temporarily lower the WBC count. On arrival to our facility the patient was afebrile, hemodynamically stable, HR 76, SpO2 100% on room air. Basic chemistries notable for mildly elevated Cr 1.1 (BL 0.7-0.8), significant hypokalemia at 2.5, mild hyponatremia 134. CBC with WBC 23, neutrophil predominant, Hgb 11.9 and normocytic, Plt WNL. Hepatic chemistries with albumin 2.8 and very mild transaminitis. 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 She was given 1 L of crystalloid and recommended for medicine admission. Patient is seen and examined at the bedside. She endorses history as above in his presently withoutany acute complaint. She again denies any abdominal discomfort or overt dysphagia/odynophagia, hematemesis, hematochezia, melena. Denies chest discomfort, palpitations, SOB. Denies any new rashes, arthralgias, vision changes, headaches. Marie lives in [facility] and has spent all her life in this region. 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 Has never traveled abroad and has not recently left the state. Last year she was able tolive alone and perform all ADLs without assistive device, but recently she has been living with [facility] and using a cane to get around. Denies tobacco, alcohol, illicit drug use. Has dogs as pets, but no other exotic animals. Wishes to be a no code this admission. Her daughter, Suri, would beher surrogate decisionmaker if she were unable. BP: 155 mmHg/71 mmHg (05/10/232228) Pulse: 71 (05/10/232228) Temp: 36.61 C (05/10/232228) Temp Summary: Temp Min: 36.2 C (97.2 F) Max: 36.6 C (97.9 F) SpO2: 100 % (05/10/232228) O2 flow rate: 0 L/MIN (05/10/232228) Supplemental O2 Delivery: Room Air, None (05/10/232228) General: Chronically ill-appearing 83 yof lying in bed. No obvious acute distress. Head/Neck: Atraumatic and normocephalic. Eyes: Vision grossly intact. PERRLA. EOM grossly intact. ENT: Hearing grossly intact to voice. Cardio: Regular rate and rhythm. No appreciable murmurs. No appreciable JVD. Trace to 1+ pedal edema. Pulmonary: No visible signs of respiratory distress or accessory muscle usage on RA. Lung redding clear to ausculation throughout. No appreciable rales, rhonchi, or wheezes. Abdomen: Soft and non-tender to palpation. No rebound, rigidity, or guarding appreciated. Bowel sounds present in all four quadrants. No organomegaly MSK: Sarcopenia Skin: Warm, dry, and intact. No obvious rashes or lesions. Neuropsych: Appropriate mood and mentation. Converses appropriately." HOSPITAL COURSE (focused): Marie Nieves was admitted to [facility] on 05/10/2023 with decreased tolerance of p.o. intake. During her hospitalization patient emphatically endorse that she just does not have an interest in eating. She does not have early satiety or does she have lack of taste that decreases her intake. Overall she feels ill and could not really specify what was causing her distress. She was noted to have leukocytosis with primary neutrophilia on admission and initially no explanation as to why this happened so Hematology was consulted, myeloproliferative disorder test have been ordered and are currently in process. Vascular Surgery was asked to evaluate the patient based on her celiac artery stenosis they feel that this does not need intervened at this time and is not the cause of her symptoms. Patient later tested positive for C difficile infection which is most likely the explanation for her leukocytosis/neutrophilia he was started on oral vancomycin. Patient was also started on mirtazapine on day of discharge to aid in depressive symptoms as well as a side effect of amputate stimulation. On day of discharge patient continues to feel unwell however eager for discharge to home. Sheindicated that she will do her best to continue to eat after she discharges from the hospital. She understands that she will need to continue her oral antibiotics to treat her C diff infection. Patient's daughter was updated on day of discharge multiple questions answered regarding patient's unwillingness to eat. In the interventions we are doing to help stimulate her appetite. Which include treatment of her C diff infection and addition of mirtazapine. Constitutional: Chronically Ill CV: Normal Rate and Normal Rhythm, no murmur, gallops or rub Chest: normal respiratory effort, lungs clear to auscultation Abdomen: normal: soft, bowel sounds normal, no masses, tenderness or organomegaly Extremities: no clubbing, cyanosis, or edema, otherwise grossly normal, warm, and dry Skin: warm, dry, intact: Neuro: alert, oriented to person, place, and time, normal mental status exam Psych: normal mood and affect, nonsuicidal, judgement normal, memory normal Operations & Procedures: none Complications: none significant Significant Lab and Imaging Results: Latest Reference Range & Units 05/11/23 05:41 05/12/23 04:48 05/13/23 04:09 05/14/23 05:38 CBC Rpt ! Rpt ! Rpt ! Rpt ! CBC WITH WBC DIFFERENTIAL Rpt ! Rpt ! Rpt ! Rpt ! WBC 4.00 - 10.80 K/uL 22.41 (H) 17.02 (H) 18.59 (H) 16.80 (H) HGB 12.0 - 15.3 g/dL 10.5 (L) 9.8 (L) 10.3 (L) 10.8 (L) HCT 36.0 - 45.2 % 33.1 (L) 31.2 (L) 33.0 (L) 32.4 (L) MCV 81.5 - 97.5 fL 95.1 94.3 96.2 93.1 PLT 140 - 400 K/uL 314 295 313 285 Absolute Neutrophils 1.80 - 7.70 K/uL 20.22 (H) 15.07 (H) 16.47 (H) 14.86 (H) Absolute Lymphocytes 1.00 - 4.80 K/ul 0.73 (L) 0.55 (L) 0.69 (L) 0.57 (L) Absolute Monocytes 0.00 - 1.10 K/uL 0.83 0.67 0.72 0.72 Absolute Eosinophils 0.00 - 0.70 K/uL 0.32 0.49 0.47 0.41 Absolute Basophils 0.00 - 0.20 K/uL 0.09 0.06 0.10 0.07 !: Data is abnormal (H): Data is abnormally high (L): Data is abnormally low Rpt: View report in Results Review for more information Latest Reference Range & Units 05/11/23 05:41 05/12/23 04:48 05/13/23 04:09 05/14/23 05:38 Sodium 135 - 146 mmol/L 138 137 136 136 Potassium 3.5 - 5.1 mmol/L 3.5 3.6 3.6 3.8 Chloride 98 - 107 mmol/L 101 105 103 103 CO2 22 - 32 mmol/L 22 23 23 23 BUN 6 - 20 mg/dL 18 18 17 14 Creatinine 0.5 - 1.0 mg/dL 1.0 0.9 0.9 0.9 Estimated Glomerular Filtration Rate >=60 mL/min 59 (L) 63 66 62 Anion Gap 7 - 15 mmol/L 15 9 10 10 Glucose 70 - 120 mg/dL 96 114 109 109 Calcium 8.4 - 10.2 mg/dL 7.8 (L) 8.2 (L) 8.0 (L) 7.9 (L) Magnesium 1.5 - 2.6 mg/dL 1.9 1.9 1.7 Phosphorus 2.5 - 4.8 mg/dL 1.7 (L) 3.1 2.5 Lactate 0.4 - 2.0 mmol/L 1.6 Protein 6.0 - 8.3 g/dL 5.0 (L) Haptoglobin 30 - 200 mg/dL 374 (H) (L): Data is abnormally low (H): Data is abnormally high Latest Reference Range & Units 05/12/23 16:53 CLOSTRIDIUM DIFFICILE, PCR Rpt ! Clostridium difficile Result Negative Positive for C. difficile toxin B gene DNA by PCR (Amplified Probe). Presumptive negative for C. difficile [id number] strain by PCR (Amplified Probe). ! Stool Consistency Liquid !: Data is abnormal Rpt: View report in Results Review for more information CT chest/abdomen/pelvis IMPRESSION 1. No acute findings in the chest, abdomen, and pelvis. 2. Duodenojejunal junction fails to cross the midline and the small bowel is mostly in the right lower quadrant, could represent intestinal malrotation. However, cecum and rest of the large bowel loops as well as SMA and SMV are appropriately positioned. No findings to suggest small bowel obstruction. 3. Severe stenosis of celiac artery origin. 4. No findings to suggest malignancy or metastatic disease. 5. Additional incidental and chronic findings as above. Results Pending at Discharge: Myeloproliferative disorder panel MEDICATION UPDATES AT DISCHARGE START taking these medications INSTRUCTIONS Lactobacillus Capsule Take 1 Capsule by mouth two times per day (morning & before bedtime). Mirtazapine 15 MG Tablet Commonly known as: Remeron Take 1 Tablet by mouth at bedtime. vancomycin 50 MG/ML oral solution Take 2.5 mL by mouth every 6 hours for 9 days. Discard excess medication. CONTINUE taking these medications INSTRUCTIONS Acetaminophen ER 650 MG Tbcr Commonly known as: Tylenol ER Take 1 Tablet by mouth every 8 hours as needed for Pain, Mild. aspirin 81 MG chewable tablet Take 1 Tab by mouth daily. atorvaSTATin 20 MG Tablet Commonly known as: Lipitor TAKE 1 TABLET BY MOUTH ONCE DAILY dorzolamide-timolol 2.23-0.68% ophthalmic solution Commonly known as: Cosopt Ocumeter Plus Instill 1 Drop into eye in the morning and 1 Drop before bedtime. Famotidine 20 MG Tablet Commonly known as: Pepcid Take 1 Tablet by mouth in the morning and 1 Tablet before bedtime. Furosemide 20 MG Tablet Commonly known as: Lasix TAKE ONE TABLET BY MOUTH DAILY levothyroxine 100 MCG Tablet Commonly known as: Levoxyl Take 1 Tablet by mouth in the morning. (at least 30 min prior to breakfast or other meds). pantoprazole 40 MG Tbec Commonly known as: Protonix TAKE 1 TABLET BY MOUTH ONCE DAILY Potassium Chloride ER 20 MEQ Tbcr Take 1 tablet by mouth twice per day for 3 days and then once per day. Rocklatan 0.02-0.005 % Soln Generic drug: Netarsudil-Latanoprost Instill 1 Drop into eye in the morning and 1 Drop before bedtime. STOP taking these medications sertraline 25 MG Tablet Commonly known as: Zoloft CONTINUE taking these medications but follow up with your Primary Care Physician (PCP). INSTRUCTIONS Cefdinir 300 MG Capsule Commonly known as: Omnicef Ask about: Should I take this medication? Take 1 Capsule by mouth in the morning and 1 Capsule before bedtime. Do all this for 5 days. SCHEDULED FOLLOW-UP: Future Appointments Appt Date/Time Provider Department 05/17/2023 11:00 AM Ciara Mac RDN Nutrition, [place] 05/21/2023 2:00 PM Ottoniel Kenyon MD [facility] 06/18/2023 4:00 PM Rigoberto Aguilera MD Hematology/Oncology [facility] 06/28/2023 8:00 AM Ottoniel Kenyon MD [facility] 08/01/2023 3:00 PM Chava Huff PA-C Orthopaedics [facility] 08/08/2023 2:20 PM Joesph Yun MD Otolaryngology/Head & Neck/Facial Plastic Surgery 09/02/2023 9:00 AM Halley Preston CRNP Cardiology, [facility] 10/01/2023 10:30 AM Lance Samuels CCC-PAINT LINE SUPERVISOR Voice Lab, [facility] 10/01/2023 11:00 AM FL2 [facility] Radiology, [facility] 02/10/2024 10:00 AM [facility] [place] Cardiology, [facility] 02/13/2024 8:15 AM MANAGER PE 2 GW Cardiac Studies, [facility] Outpatient Follow Up Basic Metabolic Panel CBC with WBC Differential Other Information Indwelling Devices: LINES None Vital Signs (last recorded): Most Recent Systolic BP: 131 mmHg (05/14/23730) Most Recent Diastolic BP: 63 mmHg (05/14/23730) Pulse: 76 (05/14/23730) Resp: 16 (05/14/23730) Most Recent Temperature: 37.72 C (05/14/23730) Weight: 42.5 kg (93 lb 12.8 oz) (05/14/23451) SpO2: 98 % (05/14/23730) O2 flow rate: 0 L/MIN (05/11/232231) Allergies: Heparin Activity: as tolerated Diet: age appropriate diet Code Status: No Code Condition on Discharge: stable Isolation status: Enteric Cognition: normal HOSPITAL CONSULTS ORDERED: ADULT PHYSICAL THERAPY CONSULT IP ADULT OCCUPATIONAL THERAPY CONSULT IP NUTRITION SERVICES (DIETITIAN) CONSULT IP VASCULAR SURGERY CONSULT IP HEMATOLOGY CONSULT IP REFERRING PHYSICIAN: Ref: [id number]] NO STREET ADDRESS AVAILABLE None (office) None (fax) PRIMARY CARE PROVIDER: PCP: Ottoniel Kenyon MD [facility] [place] [id number] (office) [phone] (fax) Note: To contact a physician responsible for this patients hospital care, please call [facility] [phone]. I certify this patient is confined to the home and needs intermittent senior care care, physical therapy and/or speech therapy, or continues to need occupational therapy. The patient is under my care and I have authorized services on this plan of care. The clinical findings of decrease in functional mobility secondary to decreased strength, decreased balance, and decreased endurance due to recent hospitalization and overall medical condition support the need for home health, and the patientdemonstrates a considerable and taxing effort when attempting to leave the home. The patient had a [id number] encounter with an allowed provider type on 05/14/2023 and the encounter was related to the primary reason for home health care. Under situations in which I am an acute/post acute facility physician who will not be following the patient's plan of care, I authorized services on this plan ofcare and I transfer the patient for plan of care certification to the primary care physician named below who will follow the patient and update the plan of care. Primary care physician Ottoniel Kenyon MD I certify this patient is confined to the home and needs intermittent senior care care, physical therapy and/or speech therapy, or continues to need occupational therapy. The patient is under my care and I have authorized services on this plan of care. The clinical findings of decrease in functional mobility secondary to decreased strength, decreased balance, and decreased endurance due to recent hospitalization and overall medical condition support the need for home health, and the patientdemonstrates a considerable and taxing effort when attempting to leave the home. The patient had a [id number] encounter with an allowed provider type on 05/14/23 and the encounter was related to the primary reason for home health care. Under situations in whichI am an acute/post acute facility physician who will not be following the patient's plan of care, Iauthorized services on this plan of care and I transfer the patient for plan of care certification to the primary care physician named below who will follow the patient and update the plan of care. Primary care physician Ottoniel Kenyon MD I spent a total of 45 minutes coordinating, documenting, and providing care for this patient excluding time spent in the performance of separately billed services. Associated attestation - Trixie Cloud MD - 05/14/2023 3:33 PM EST I have reviewed the advanced practitioner's documentation on the date of service referenced in note, and I agree with, and take responsibility for the plan of care. I spent a total of 17 minutes coordinating, documenting, and providing care for this patient excluding time spent in the performance of separately billed services or time spent by another provider/QHP. documented in this encounter Discharge Instructions * Discharge Instr - AVS* Uli Cortes PA-C - 05/14/2023 9:02 AM EST Discharge Date: 05/14/23 The information below provides you with the instructions and the list of medications you need to betaking following discharge from the hospital. If you have any questions, please ask before leaving. If you have questions after leaving, you can reach us at the numbers below. YOUR HOSPITAL PROVIDERS: Discharging Provider: Trixie Cloud MD Provider Department: Hospital Medicine To reach this Provider Saturday through Saturday (8:00 AM to 4:30 PM) for any questions or test results: Call [phone] For after-hours concerns: Call [phone] and have your provider paged, or the provider bus monitor for the Department of Hospital Medicine paged. Please note, the discharging provider will not be able to provide you with any medications refills.Please discuss these with your primary care provider. Worsening Symptoms: If you have new symptoms, or your symptoms get worse, please contact your Discharge Provider or Primary Care Provider (PCP). If these providers are not available, you can [facility] to your [facility] during their business hours. In an EMERGENCY situation: Call [phone] or go to the nearest emergency room. A BRIEF SUMMARY OF YOUR HOSPITAL STAY: You came to the hospital with: complaint of intolerance of diet Your main diagnosis at discharge was: C diff infection of the bowel. While you were here he was started on vancomycin oral for managementof this bowel infection. Decreased interest in eating, no specific cause of this decrease want to eat however suspect that Cdiff infection is leading 20s the acute problem during this hospitalization will add mirtazapine tohelp with suspected depression as well as appetite stimulation Operations & Procedures performed: none Complications: none significant Inpatient test results that are pending at discharge: Yes, myeloproliferative disease panel. You oryour doctor will be contacted if there are significant abnormalities with these tests. Advance Directive Documented: Advance Directive Does the Patient have an Advance Directive? Yes YOUR FOLLOW UP APPOINTMENTS: Primary Care Provider Information: PCP: Ottoniel Kenyon MD [address] [place] [address] / [facility] [place] [address] (office) [phone] (fax) An appointment was requested with your PCP (Ottoniel Kenyon MD) within 7 days. (Please take this form to this visit with your primary care physician.) You need the following studies in the future: CBC and BMP in approximately 3-5 days MEDICATIONS ON DISCHARGE: Please bring a list of ALL medications that you take to ALL of your doctor visits. REASON(S) FOR MEDICATION CHANGE(S): Vancomycin oral was added for treatment of active C diff infection Culturelle was added to help replenish healthy bowel bacteria Mirtazapine was added for management of depression as well as appetite stimulation INSTRUCTIONS: Diet: Previous diet Activity: Walker or cane Additional Instructions: - Call your primary care physician or seek medical attention if your condition worsens. - Do not use alcohol products in anyway! - Use caution when standing or walking since you are at an increased risk for falls - Do not take [id number] NSAIDs (nonsteroid anti-inflammatory medications); ie. Advil, Motrin, Ibuprofen, etc. documented in this encounter Progress Notes * Uli Cortes PA-C - 05/13/2023 7:40 AM EST PROGRESS NOTE - Hospital Medicine Service [facility] [address] Name: Marie Nieves Location[place] [facility] Date: 05/13/2023 Time: 7:40 AM Hospital Day # 4 SUBJECTIVE: No acute events or concerns overnight. C. Diff study returned positive for infection. Pt tells me she was feeling horrible however unable to specify what is making her feel this wayand no specific symptoms. She was attempting to tolerate her diet and is eating only minimal amountof her diet. Denying: Chest Pain, Dyspnea, Fever/Chills, N/V, H/A, Weakness, Numbness, Tingling, Lightheadedness, Dizziness, Blurred vision. OBJECTIVE: Most Recent Vital Signs: BP: 128 mmHg/69 mmHg (05/13/23734) Pulse: 72 (05/13/23734) Temp: 37.61 C (05/13/23734) Temp Summary: Temp Min: 36.4 C (97.5 F) Max: 37.6 C (99.7 F) SpO2: 100 % (05/13/23734) O2 flow rate: 0 L/MIN (05/11/232231) Supplemental O2 Delivery: Room Air, None (05/13/23734) Vital Signs Last 24 Hours: Systolic BP: Most Recent Systolic BP Av.3 mmHg Min: 120 mmHg Max: 138 mmHg Temperature: Most Recent Temperature Av C Min: 36.39 C Max: 37.61 C Pulse: Pulse Av.5 Min: 69 Max: 73 Respirations: Resp Av.7 Min: 15 Max: 16 SpO2: SpO2 Av.3 % Min: 98 % Max: 100 % Constitutional: Chronically Ill HEENT: normocephalic, atraumatic; no masses, tenderness, or adenopathy Eyes: PERRLA, sclera and conjunctiva normal Neck: supple, normal range of motion CV: Normal Rate and Normal Rhythm, no murmur, gallops or rub Chest: normal respiratory effort, lungs clear to auscultation Abdomen: normal: soft, bowel sounds normal, no masses, tenderness or organomegaly Musculoskeletal: (-) negative Extremities: no clubbing, cyanosis, or edema, otherwise grossly normal, warm, and dry Skin: warm, dry, intact: Neuro: alert, oriented to person, place, and time, normal mental status exam Psych: normal mood and affect, nonsuicidal, judgement normal, memory normal LABS: Latest Reference Range & Units 05/12/23 04:48 Sodium 135 - 146 mmol/L 137 Potassium 3.5 - 5.1 mmol/L 3.6 Chloride 98 - 107 mmol/L 105 CO2 22 - 32 mmol/L 23 BUN 6 - 20 mg/dL 18 Creatinine 0.5 - 1.0 mg/dL 0.9 Estimated Glomerular Filtration Rate >=60 mL/min 63 Anion Gap 7 - 15 mmol/L 9 Glucose 70 - 120 mg/dL 114 Calcium 8.4 - 10.2 mg/dL 8.2 (L) Magnesium 1.5 - 2.6 mg/dL 1.9 Phosphorus 2.5 - 4.8 mg/dL 1.7 (L) CBC Rpt ! CBC WITH WBC DIFFERENTIAL Rpt ! WBC 4.00 - 10.80 K/uL 17.02 (H) HGB 12.0 - 15.3 g/dL 9.8 (L) HCT 36.0 - 45.2 % 31.2 (L) MCV 81.5 - 97.5 fL 94.3 PLT 140 - 400 K/uL 295 Absolute Neutrophils 1.80 - 7.70 K/uL 15.07 (H) Absolute Lymphocytes 1.00 - 4.80 K/ul 0.55 (L) Absolute Monocytes 0.00 - 1.10 K/uL 0.67 Absolute Eosinophils 0.00 - 0.70 K/uL 0.49 Absolute Basophils 0.00 - 0.20 K/uL 0.06 (L): Data is abnormally low !: Data is abnormal (H): Data is abnormally high Rpt: View report in Results Review for more information IMAGING: Reviewed, no new imaging IMPRESSION and PLAN: Principal Problem: C. difficile colitis (POA: Yes) Active Problems: Dyslipidemia, goal LDL below 130 (POA: Yes) Hypothyroidism (POA: Yes) HTN, goal below 140/90 (POA: Yes) Gastroesophageal reflux disease without esophagitis (POA: Yes) S/P TAVR (transcatheter aortic valve replacement) (POA: Yes) Generalized weakness (POA: Yes) Severe protein-energy malnutrition (HCC) (POA: Yes) History of pulmonary embolism (POA: Yes) Paroxysmal atrial fibrillation (HCC) (POA: Yes) 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) (POA: Yes) Overview: Per CKD protocol Chronic kidney disease, stage 3a (HCC) (POA: Yes) Overview: Per CKD protocol Cardiac pacemaker in situ (POA: Yes) Sick sinus syndrome (HCC) (POA: Yes) Atrial fibrillation (HCC) (POA: Yes) Failure to thrive in adult (POA: Yes) Stenosis of celiac artery (HCC) (POA: Unknown) Neutrophilia (POA: Unknown) POA = Present On Admission 83 yof w/ SSS s/p PPM, hx TAVR, hx PE, hx of pericarditis, hx of pAF not on A/C, CKD who presents in the setting of ongoing poor oral intake/anorexia with unintentional 20lb weight loss, found with increasing neutrophilic leukocytosis w/o obvious infectious/inflammatory etiology; admitted for further work- up/evaluation for reversible etiologies. C.Diff infection, this most likely explains the Leukocytosis and Neutrophilia as well as her symptoms related to poor oral intake and weight loss Start Oral Vancomycin Evaluate response Possible discharge tomorrow if improvement. 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 There are reports of drenching night sweats as well. There was initial dysphagia back of the onset of her decline, but she has essentially had both normal EGD as well as VFSS with additional note that the dysphagia no longer seems to be a predominantissue. Interestingly she also had persistent neutrophilic leukocytosis, which had responded prior to a brief course of cefdinir, but then rebounded. Contrast-enhanced cross-sectional imaging is essentially unremarkable for an obvious infectious or neoplastic focus that might explain such. Unclear if this intestinal malrotation seen on imaging is playing any type of role. Would likely expect to see some nausea or emesis if this were the case Regular diet with boost supplementation Dietitian consult PT/OT I have seen weight loss, body fat loss, muscle mass loss, and decreased energy intake. This plan ofcare has been developed to treat malnutrition by advancing diet and Dietary consult . Severe Celiac Artery Stenosis, This may be contributing to her symptoms for above Vascular Surgery consult, awaiting recommendations. 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 2.5 on admission Today 3.6, will continue supplementation and monitoring of levels Hx of pAF not on anticoagulation Hx of prior pulmonary embolism following TAVR treated w/ 6 months Eliquis No chronic anticoagulation and her afib was seemingly periprocedural and she had developed a hematoma in the past, which after risk/benefit discussion, was opted not to pursue long-term anticoagulation. Prior Zio Patch did not note significant afib burden.This was clarified with her daughter. 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 Chronic Problems: OAG: Continue RADIO MACHINIST dorzolamide, timolol. Her RADIO MACHINIST Rocklatan gtts are non- formulary. Will order Xalatan drops for now. Hx TAVR: Continue RADIO MACHINIST ASA 81mg qd Hypothyroidism: Continue RADIO MACHINIST Synthroid 100mcg qd GERD: Continue RADIO MACHINIST Protonix 40mg qd. Dose-reduce RADIO MACHINIST Pepcid to 10mg qd for renal funciton FTT will result in a threat to life or bodily function if not treated CBC, BMP, Mg, Phos ordered as above to monitor acute problems. Chronic Problems: Diet: Orders Placed This Encounter Procedures Regular Diet PPX: OOB and ambulate, SCD Disposition: From Home will most likely discharge tomorrow I spent a total of 40 minutes coordinating, documenting, and providing care for this patient excluding time spent in the performance of separately billed services or time spent by another provider/QHP. Uli Cortes PA-C Department of Hospital Medicine [facility] Associated attestation - Trixie Cloud MD - 05/13/2023 3:15 PM EST I have reviewed the advanced practitioner's documentation on the date of service referenced in note, and I agree with, and take responsibility for the plan of care. Patient tested positive for C diff. Started on p.o. vancomycin. Continues to have low appetite withdecreased intake. Encouraged for increased intake. Patient verbalized understanding. I spent a total of 19 minutes coordinating, documenting, and providing care for this patient excluding time spent in the performance of separately billed services or time spent by another provider/QHP. * Uil Cortes PA-C - 05/12/2023 7:27 AM EST PROGRESS NOTE - Hospital Medicine Service [address] [address] Name: Marie Nieves [place] [facility] Date: 05/12/2023 Time: 7:27 AM Hospital Day # 3 SUBJECTIVE: No acute events or concerns overnight. Patient indicated that she was feeling terrible however is unable to specify was making her feel this way. She indicates that she does have anappetite just no interest in eating. She did tolerates overnight yesterday as well this morning. Continues with loose stools GI pathogen panel is pending as well as C diff study. Denying: Chest Pain,Dyspnea, Fever/Chills, N/V, H/A, Weakness, Numbness, Tingling, Lightheadedness, Dizziness, Blurred vision. OBJECTIVE: Most Recent Vital Signs: BP: 126 mmHg/58 mmHg (05/12/23710) Pulse: 70 (05/12/23710) Temp: 36.28 C (05/12/23710) Temp Summary: Temp Min: 36.3 C (97.3 F) Max: 36.4 C (97.5 F) SpO2: 99 % (05/12/23710) O2 flow rate: 0 L/MIN (05/11/232231) Supplemental O2 Delivery: Room Air, None (05/12/23710) Vital Signs Last 24 Hours: Systolic BP: Most Recent Systolic BP Av.8 mmHg Min: 99 mmHg Max: 133 mmHg Temperature: Most Recent Temperature Av.3 C Min: 36.28 C Max: 36.39 C Pulse: Pulse Av.3 Min: 65 Max: 70 Respirations: Resp Av Min: 20 Max: 20 SpO2: SpO2 Av % Min: 96 % Max: 99 % Constitutional: Chronically Ill HEENT: normocephalic, atraumatic; no masses, tenderness, or adenopathy Eyes: PERRLA, sclera and conjunctiva normal Neck: supple, normal range of motion CV: Normal Rate and Normal Rhythm, no murmur, gallops or rub Chest: normal respiratory effort, lungs clear to auscultation Abdomen: normal: soft, bowel sounds normal, no masses, tenderness or organomegaly Musculoskeletal: (-) negative Extremities: no clubbing, cyanosis, or edema, otherwise grossly normal, warm, and dry Skin: warm, dry, intact: Neuro: alert, oriented to person, place, and time, normal mental status exam Psych: normal mood and affect, nonsuicidal, judgement normal, memory normal LABS: Latest Reference Range & Units 05/12/23 04:48 Sodium 135 - 146 mmol/L 137 Potassium 3.5 - 5.1 mmol/L 3.6 Chloride 98 - 107 mmol/L 105 CO2 22 - 32 mmol/L 23 BUN 6 - 20 mg/dL 18 Creatinine 0.5 - 1.0 mg/dL 0.9 Estimated Glomerular Filtration Rate >=60 mL/min 63 Anion Gap 7 - 15 mmol/L 9 Glucose 70 - 120 mg/dL 114 Calcium 8.4 - 10.2 mg/dL 8.2 (L) Magnesium 1.5 - 2.6 mg/dL 1.9 Phosphorus 2.5 - 4.8 mg/dL 1.7 (L) CBC Rpt ! CBC WITH WBC DIFFERENTIAL Rpt ! WBC 4.00 - 10.80 K/uL 17.02 (H) HGB 12.0 - 15.3 g/dL 9.8 (L) HCT 36.0 - 45.2 % 31.2 (L) MCV 81.5 - 97.5 fL 94.3 PLT 140 - 400 K/uL 295 Absolute Neutrophils 1.80 - 7.70 K/uL 15.07 (H) Absolute Lymphocytes 1.00 - 4.80 K/ul 0.55 (L) Absolute Monocytes 0.00 - 1.10 K/uL 0.67 Absolute Eosinophils 0.00 - 0.70 K/uL 0.49 Absolute Basophils 0.00 - 0.20 K/uL 0.06 (L): Data is abnormally low !: Data is abnormal (H): Data is abnormally high Rpt: View report in Results Review for more information IMAGING: Reviewed, no new imaging IMPRESSION and PLAN: Principal Problem: Failure to thrive in adult (POA: Yes) Active Problems: Dyslipidemia, goal LDL below 130 (POA: Yes) Hypothyroidism (POA: Yes) HTN, goal below 140/90 (POA: Yes) Gastroesophageal reflux disease without esophagitis (POA: Yes) S/P TAVR (transcatheter aortic valve replacement) (POA: Yes) Generalized weakness (POA: Yes) History of pulmonary embolism (POA: Yes) Paroxysmal atrial fibrillation (HCC) (POA: Yes) 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) (POA: Yes) Overview: Per CKD protocol Chronic kidney disease, stage 3a (HCC) (POA: Yes) Overview: Per CKD protocol Cardiac pacemaker in situ (POA: Yes) Sick sinus syndrome (HCC) (POA: Yes) Atrial fibrillation (HCC) (POA: Yes) Stenosis of celiac artery (HCC) (POA: Unknown) Neutrophilia (POA: Unknown) POA = Present On Admission 83 yof w/ SSS s/p PPM, hx TAVR, hx PE, hx of pericarditis, hx of pAF not on A/C, CKD who presents in the setting of ongoing poor oral intake/anorexia with unintentional 20lb weight loss, found with increasing neutrophilic leukocytosis w/o obvious infectious/inflammatory etiology; admitted for further work- up/evaluation for reversible etiologies. 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 There are reports of drenching night sweats as well. There was initial dysphagia back of the onset of her decline, but she has essentially had both normal EGD as well as VFSS with additional note that the dysphagia no longer seems to be a predominantissue. Interestingly she also had persistent neutrophilic leukocytosis, which had responded prior to a brief course of cefdinir, but then rebounded. Contrast-enhanced cross-sectional imaging is essentially unremarkable for an obvious infectious or neoplastic focus that might explain such. Will send LD, UA as well as serum and urine paraprotein studies in the setting of progressing renaldysfunction, anemia, and weight loss Unclear if this intestinal malrotation seen on imaging is playing any type of role. Would likely expect to see some nausea or emesis if this were the case Regular diet with boost supplementation Dietitian consult May Need GI nutrition. We will give IV sodium phosphate today Could consider appetite stimulating agents such as mirtazapine PT/OT I have seen weight loss, body fat loss, muscle mass loss, and decreased energy intake. This plan ofcare has been developed to treat malnutrition by advancing diet and Dietary consult . Severe Celiac Artery Stenosis, This may be contributing to her symptoms for above Vascular Surgery consult, awaiting recommendations. For vascular read the celiac artery is widely patent with a large calcified plaque at its origin aswell as the SMA is also widely patent No concern for chronic mesenteric ischemia to explain her symptoms Vascular signed off Persistent Leukocytosis/Neutrophilia Normalcytic anemia No lytic lesions, lymphadenopathy, or splenomegaly noted on cross-sectional imagingIron Studies - Low Iron and TIBC, Ferritin 1143 Retic Panel - S;light increase in Immature Retic Fraction, and retic Percent LD 267 Add on Haptoglobin and Direct Traci GIPP and C.Diff pending Hematology consult, Myeloproliferative panel for next generation sequencing has been ordered Continued workup for infectious etiology such as endocarditis CRP is elevated, recommend workup for inflammatory etiology APARNA (resolved) 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 Will run mIVF overnight as above Check UA, UPCR, and paraprotein studies as above Cr baseline is 0.7, on admission was 1.1 Cr today 1.0 Hypokalemia (resolved), Suspect 2/2 poor oral intake. 2.5 on admission Today 3.6, will continue supplementation and monitoring of levels Hx of pAF not on anticoagulation Hx of prior pulmonary embolism following TAVR treated w/ 6 months Eliquis No chronic anticoagulation and her afib was seemingly periprocedural and she had developed a hematoma in the past, which after risk/benefit discussion, was opted not to pursue long-term anticoagulation. Prior Zio Patch did not note significant afib burden.This was clarified with her daughter. 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 Chronic Problems: OAG: Continue RADIO MACHINIST dorzolamide, timolol. Her RADIO MACHINIST Rocklatan gtts are non- formulary. Will order Xalatan drops for now. Hx TAVR: Continue RADIO MACHINIST ASA 81mg qd Hypothyroidism: Continue RADIO MACHINIST Synthroid 100mcg qd GERD: Continue RADIO MACHINIST Protonix 40mg qd. Dose-reduce RADIO MACHINIST Pepcid to 10mg qd for renal funciton FTT will result in a threat to life or bodily function if not treated CBC, BMP, Mg, Phos ordered as above to monitor acute problems. Chronic Problems: Diet: Orders Placed This Encounter Procedures Regular Diet PPX: OOB and ambulate, SCD Disposition: From Home will most likely discharge 2+ days I spent a total of 42 minutes coordinating, documenting, and providing care for this patient excluding time spent in the performance of separately billed services or time spent by another provider/QHP. Uli Cortes PA-C Department of Hospital Medicine [facility] Associated attestation - Trixie Cloud MD - 05/12/2023 2:57 PM EST I have reviewed the advanced practitioner's documentation on the date of service referenced in note, and I agree with, and take responsibility for the plan of care. I spent a total of 21 minutes coordinating, documenting, and providing care for this patient excluding time spent in the performance of separately billed services or time spent by another provider/QHP. * Uli Cortes PA-C - 05/11/2023 7:12 AM EST PROGRESS NOTE - Hospital Medicine Service [facility] [address] Name: Marie Nieves Location[place] [facility] Date: 05/11/2023 Time: 7:13 AM Hospital Day # 2 SUBJECTIVE: Patient was admitted last night failure to thrive, poor oral intake, unintentional weight loss. No acute events or concerns since being admitted. Patient tells me that her symptoms of poor oral intake result from lack of interest in eating not necessarily a change in taste or early satiety. This started back in March and has been progressive and persistent since then. She tells me that her baseline weight is approximately 115 lb on admission she was weighing 98 lb. She was no other real complaints or concerns other than her overall declining medical health for the last two months. Stools are loose and dark however he was unable to tell me if there has been blood noted in them. Denying: Chest Pain, Dyspnea, Fever/Chills, N/V, H/A, Weakness, Numbness, Tingling, Lightheadedness, Dizziness, Blurred vision. OBJECTIVE: Most Recent Vital Signs: BP: 155 mmHg/71 mmHg (05/10/232228) Pulse: 71 (05/10/232228) Temp: 36.61 C (05/10/232228) Temp Summary: Temp Min: 36.2 C (97.2 F) Max: 36.6 C (97.9 F) SpO2: 100 % (05/10/232228) O2 flow rate: 0 L/MIN (05/10/232228) Supplemental O2 Delivery: Room Air, None (05/10/232228) Vital Signs Last 24 Hours: Systolic BP: Most Recent Systolic BP Av.5 mmHg Min: 128 mmHg Max: 155 mmHg Temperature: Most Recent Temperature Av.4 C Min: 36.22 C Max: 36.61 C Pulse: Pulse Av.5 Min: 71 Max: 76 Respirations: Resp Av Min: 20 Max: 20 SpO2: SpO2 Av % Min: 100 % Max: 100 % Constitutional: Chronically Ill HEENT: normocephalic, atraumatic; no masses, tenderness, or adenopathy Eyes: PERRLA, sclera and conjunctiva normal Neck: supple, normal range of motion CV: Normal Rate and Normal Rhythm, no murmur, gallops or rub Chest: normal respiratory effort, lungs clear to auscultation Abdomen: normal: soft, bowel sounds normal, no masses, tenderness or organomegaly Musculoskeletal: (-) negative Extremities: no clubbing, cyanosis, or edema, otherwise grossly normal, warm, and dry Skin: warm, dry, intact: Neuro: alert, oriented to person, place, and time, normal mental status exam Psych: normal mood and affect, nonsuicidal, judgement normal, memory normal LABS: Labs reviewed as indicated below: Latest Reference Range & Units 05/10/23 23:47 05/11/23 05:41 Sodium 135 - 146 mmol/L 138 Potassium 3.5 - 5.1 mmol/L 3.5 Chloride 98 - 107 mmol/L 101 CO2 22 - 32 mmol/L 22 BUN 6 - 20 mg/dL 18 Creatinine 0.5 - 1.0 mg/dL 1.0 Estimated Glomerular Filtration Rate >=60 mL/min 59 (L) Anion Gap 7 - 15 mmol/L 15 Glucose 70 - 120 mg/dL 96 Calcium 8.4 - 10.2 mg/dL 7.8 (L) Lactate 0.4 - 2.0 mmol/L 1.6 LD <=250 U/L 267 (H) Uric Acid 2.4 - 5.7 mg/dL 6.2 (H) CBC Rpt ! CBC WITH WBC DIFFERENTIAL Rpt ! WBC 4.00 - 10.80 K/uL 22.41 (H) HGB 12.0 - 15.3 g/dL 10.5 (L) HCT 36.0 - 45.2 % 33.1 (L) MCV 81.5 - 97.5 fL 95.1 PLT 140 - 400 K/uL 314 Absolute Neutrophils 1.80 - 7.70 K/uL 20.22 (H) Absolute Lymphocytes 1.00 - 4.80 K/ul 0.73 (L) Absolute Monocytes 0.00 - 1.10 K/uL 0.83 Absolute Eosinophils 0.00 - 0.70 K/uL 0.32 Absolute Basophils 0.00 - 0.20 K/uL 0.09 IRON SCREEN, INCLUDING TIBC Rpt ! Iron 33 - 151 ug/dL 17 (L) Iron Binding Capacity 250 - 425 ug/dL 96 (L) Transferrin Saturation Percent 15 - 55 % 18 Ferritin 13 - 150 ng/mL 1,143 (H) CRP (Inflammatory Marker) <=5 mg/L 178 (H) SERUM PROTEIN ELECTROPHORESIS REFLEX PROFILE Rpt (L): Data is abnormally low (H): Data is abnormally high !: Data is abnormal Rpt: View report in Results Review for more information IMAGING: Reviewed, no new imaging IMPRESSION and PLAN: Principal Problem: Failure to thrive in adult (POA: Yes) Active Problems: Dyslipidemia, goal LDL below 130 (POA: Yes) Hypothyroidism (POA: Yes) HTN, goal below 140/90 (POA: Yes) Gastroesophageal reflux disease without esophagitis (POA: Yes) S/P TAVR (transcatheter aortic valve replacement) (POA: Yes) Generalized weakness (POA: Yes) History of pulmonary embolism (POA: Yes) Paroxysmal atrial fibrillation (HCC) (POA: Yes) 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) (POA: Yes) Overview: Per CKD protocol Chronic kidney disease, stage 3a (HCC) (POA: Yes) Overview: Per CKD protocol Cardiac pacemaker in situ (POA: Yes) Sick sinus syndrome (HCC) (POA: Yes) Atrial fibrillation (HCC) (POA: Yes) POA = Present On Admission 83 yof w/ SSS s/p PPM, hx TAVR, hx PE, hx of pericarditis, hx of pAF not on A/C, CKD who presents in the setting of ongoing poor oral intake/anorexia with unintentional 20lb weight loss, found with increasing neutrophilic leukocytosis w/o obvious infectious/inflammatory etiology; admitted for further work- up/evaluation for reversible etiologies. 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 There are reports of drenching night sweats as well. There was initial dysphagia back of the onset of her decline, but she has essentially had both normal EGD as well as VFSS with additional note that the dysphagia no longer seems to be a predominantissue. Interestingly she also had persistent neutrophilic leukocytosis, which had responded prior to a brief course of cefdinir,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 training, Upper extremity strengthening, Balance activities, ADL training, and Endurance Anticipated Frequency (on eval): 1 to 3 times per week (05/13/23958) AM-PAC Help From Another Person Eating Meals: None (05/13/23958) Help From Another Person Taking Care of Personal Grooming: A little (05/13/23958) Help From Another Person To Put On/Take Off Upper Body Clothing: A little (05/13/23958) Help From Another Person To Put On/Take Off Lower Body Clothing: A little (05/13/23958) Help From Another Person Toileting: A little (05/13/23958) Help From Another Person Bathing: A little (05/13/23958) OT AM-PAC Score: 19 (05/13/23958) OT AM-PAC t-Scale Score: 40.22 (05/13/23958) HLM (Highest Level of Mobility) Goal: Level 6 walk 10 steps or more (05/13/23837) A portion of this AM-PAC assessment not scored based on functional assessment; rather clinical decision making utilized based on current findings and/or prior level of function. Please refer to future AM-PAC calculations of functional ability as they become available. * Pippa Miller, RDN - 05/12/2023 1:54 PM ESTAssociated Order(s): NUTRITION SERVICES (DIETITIAN) CONSULT IP CLINICAL NUTRITION CONSULT/PROGRESS NOTE [address] [address] Name: Marie Nieves [place] [facility] [place] Date: 05/12/2023 Time: 1:54 PM How patient was identified (select 2): Medical record number and Name Discussed in interdisciplinary rounds: No Marie Nieves is a 83 year old female being seen for consult by provider, reduced dietary intake, and significant unintentional weight loss Primary Diagnosis: Patient admitted for failure to thrive in adult. 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 PO intake between 0-10% since admission. Reports having loose stools since admission, states she had a smallBM today. Otherwise denies GI symptoms. Denies chewing/swallowing issues. States she occasionally has protein shakes at home. She is open to trying strawberry Boost High Protein with meals to support PO intake. 14.7% weight loss noted over the past 2-3 months. Severe muscle and fat loss noted on exam. NUTRITION ASSESSMENT: Past medical/surgical history and medications reviewed. Food/Nutrition-Related History Diet: Regular Previously followed diet: Regular Food Allergies/Intolerances: none known Adult Energy Intake: Less than 75% of estimated energy requirement for greater than 1 month (moderate/severe, chronic illness). Percentage of meal intake: 0-25% Oral Nutrition Supplement (ONS): Supplement Shake (1/2 cup provides 200 calories, 6 grams protein, 34 grams carbohydrate) TID Pertinent medications/vitamins/minerals/supplements: pepcid, levoxyl, protonix, NaPhos Pertinent Biochemical Data: Latest Reference Range & Units 05/12/23 04:48 Phosphorus 2.5 - 4.8 mg/dL 1.7 (L) (L): Data is abnormally low Hypophosphatemia - Receiving supplementation Nutrition-Focused Physical Findings: Appearance: Ill-appearing and Thin Respiratory support: Supplemental O2 Delivery: Room Air, None Nasal/Oral: No issues identified Digestive: Appetite poor Last Bowel Movement: 05/11/23 (05/12/23899) Cognition: Awake, alert and Oriented Skin: Intact Enteral access: none Nutrition Focused Physical Exam: NFPE completed on 05/12/2023 Subcutaneous Fat Loss: Orbital fat pads: Severe Buccal fat: Severe Tricep: Moderate Muscle Loss: Temples: Severe Clavicles: Severe Shoulders: Severe Interosseous: Severe Quadriceps: Moderate Calves: Moderate Edema Location: Lower extremities;Both (05/12/23899) Edema Assessment: Trace (05/12/23899) Anthropometrics Measurements Height: 144.8 cm (4' 9") (05/10/232228) Admission weight: 44.8 kg Weight: 44.7 kg (98 lb 9.6 oz) (05/12/23454) BMI: 21.84 (05/10/232228) Usual Body Weight: 50-52 kg per chart review [place] weight: 52.2 kg [place] Weight Based on BMI: 24.9 Interpretation of Weight Change Prior to Admission: Greater than 7.5% weight loss in 3 months (Severe) (14.7% weight loss x 3 months) Weight Changes Since Admission: will monitor. Nutrition Prescription: Energy needs: 30-35 Kcal/kg Kcal/day: 5136-0537 Based on admission weight Protein needs: 1.2-1.4 gm/kg Protein: 54-63 Based on admission weight Fluid needs: 25 ml/kg Fluid: 1120 ml/day Based on admission weight Malnutrition: Malnutrition Present: Yes (05/12/231405) Adult Malnutrition Classification: Severe (05/12/231405) Malnutrition Characteristics: Fat loss;Muscle loss;Inadequate energy intake;Weight loss (05/12/231405) Malnutrition Care Plan: Patient meets ASPEN/AND criteria for severe malnutrition. Plan to meet 50% of estimated calorie and 50% of estimated protein requirements via therapeutic diet and a nutrition intervention of oral nutrition supplements. If patient unable to achieve estimatedrequirements over next 5-7 days, will need to consider enteral nutrition. NUTRITION DIAGNOSIS: Suboptimal oral intake related to lack of appetite/PO intake as evidenced by 14.7% weight loss x 2-3 months. Malnutrition severe related to acute illness or injury as evidenced by patient consuming less than 75% of estimated energy requirements x 7 days, greater than 7.5% weight loss x 3 months, severe fat loss, and severe muscle loss. Goals: Patient to consume greater than 50 % of daily meals and 50% of daily supplements within 3-5 days. NUTRITION INTERVENTION/PLAN: Orders: Oral nutrition supplement added Boost High Protein (1 cup provides 250 calories, 20 grams protein, 28 grams carbohydrate) TID Clinical Nutrition Recommendations: Diet: Continue current nutrition plan If patient is unable to meet >50% of nutrition needs via PO intake, may need to consider enteralnutrition. NUTRITION MONITORING AND EVALUATION: Nursing documentation flowsheets for percent meal intake Tolerance of supplement per patient/nursing report Lab values warranting change with MNT Weight for trends Plan follow-up: Will follow and adjust nutrition plan of care as medical condition requires. Please contact for change(s) in patient condition requiring earlier intervention. Pippa Miller MS, RATNA, LDN Clinical Dietitian [employer] * Rhina Copeland MD - 05/11/2023 10:58 AM ESTAssociated Order(s): VASCULAR SURGERY CONSULT IP Consult - Vascular Surgery [address] [address] Name: Marie Nieves [place] [facility] Date: 05/11/2023 Time: 10:58 AM Date of Service: 05/11/2023 10:58 AM Requesting Service/Physician: Yaw Muir Chief Complaint: Loss of Appetite (20 lb weight loss since 03/13); Dehydration; and Weakness, Generalized Reason for consult: "Severe Celiac Artery Stenosis" HPI: Ms. Nieves is an 83 yo F who presents with failure to thrive and weakness. She has not tolerated food since early March due to vocal cord paralysis. Patient also has unintentional weight loss and night sweats. She does not have food fear. She does not have abdominal pain ever. Her overall complaint to food is she is just uninterested in it. She stated she tried to eat pineapples this AM but theywere too tough. Prior to Admission medications Medication Sig Last Dose Discont. Potassium Chloride Estefany ER 20 MEQ Oral Tablet Extended Release Take 1 tablet by mouth twice per dayfor 3 days and then once per day. 05/10/2023 Atorvastatin Calcium 20 MG Oral Tablet (Lipitor) TAKE 1 TABLET BY MOUTH ONCE DAILY 05/11/2023 Famotidine 20 MG Oral Tablet (Pepcid) Take 1 Tablet by mouth in the morning and 1 Tablet before bedtime. 05/11/2023 Pantoprazole Sodium 40 MG Oral Tablet Delayed Release (Protonix) TAKE 1 TABLET BY MOUTH ONCE DAILY 05/11/2023 Levothyroxine Sodium 100 MCG Oral Tablet (Levoxyl) Take 1 Tablet by mouth in the morning. (at least30 min prior to breakfast or other meds). 05/11/2023 Furosemide 20 MG Oral Tablet (Lasix) TAKE ONE TABLET BY MOUTH DAILY Past Month Rocklatan 0.02-0.005 % Ophthalmic Solution (Netarsudil-Latanoprost) Instill 1 Drop into eye in the morning and 1 Drop before bedtime. 05/11/2023 Aspirin 81 MG Oral Tablet Chewable Take 1 Tab by mouth daily. 05/11/2023 Acetaminophen ER 650 MG Oral Tablet Extended Release Take 1 Tablet by mouth every 8 hours as neededfor Pain, Mild. Past Week DORZOLAMIDE HCL-TIMOLOL MAL 22.3-6.8 MG/ML OP SOLN Instill 1 Drop into eye in the morning and 1 Drop before bedtime. 05/11/2023 Sertraline HCl 25 MG Oral Tablet (Zoloft) Take 1 Tablet by mouth in the morning. Patient not taking: Reported on 05/11/2023 Not Taking Cefdinir 300 MG Oral Capsule (Omnicef) Take 1 Capsule by mouth in the morning and 1 Capsule before bedtime. Do all this for 5 days. Review of patient's allergies indicates: Allergen Reactions Heparin Concern for HIT Patient Active Problem List Diagnosis Code Dyslipidemia, goal LDL below 130 E78.5 Hypothyroidism E03.9 History of adenomatous polyp of colon Z86.010 HTN, goal below 140/90 I10 Vitamin D deficiency E55.9 Primary open-angle glaucoma, bilateral, moderate stage H40.1132 Gastroesophageal reflux disease without esophagitis K21.9 Pericardial effusion I31.39 S/P TAVR (transcatheter aortic valve replacement) Z95.2 History of pericarditis Z86.79 Generalized weakness R53.1 Iron deficiency anemia D50.9 Malnutrition of moderate degree (HCC) E44.0 History of pulmonary embolism Z86.711 Atherosclerosis of aorta (HCC) I70.0 Atherosclerotic heart disease of [place] coronary artery with other forms of angina pectoris ([facility]) I25.118 Age-related osteoporosis without current pathological fracture M81.0 Paroxysmal atrial fibrillation (HCC) I48.0 HIT (heparin-induced thrombocytopenia) ([facility]) D75.829 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) I12.9, N18.31 Chronic kidney disease, stage 3a (HCC) N18.31 Cardiac pacemaker in situ Z95.0 Other giant cell arteritis ([facility]) M31.6 Sick sinus syndrome ([facility]) I49.5 Atrial fibrillation ([facility]) I48.91 Oropharyngeal dysphagia R13.12 Anorexia R63.0 Leukocytosis D72.829 Failure to thrive in adult R62.7 Stenosis of celiac artery ([facility]) I77.1 Neutrophilia D72.9 Past Medical History: Diagnosis Date Closed fracture of left lower extremity 2003 fall Dyslipidemia, goal to be determined Fracture of rib of right side 2004 after fall Hypothyroidism INFORMATION elevated ANNA, neg [...] performed by Andrew Dudley MD at ENDOSCOPY [facility] COLONOSCOPY, DIAGNOSTIC (RECTUM) 06/20/2017 adenomatous polyp, diverticulosis/COLONOSCOPY FLEXIBLE PROXIMAL DIAGNOSTIC performed by Andrew Dudley MD at ENDOSCOPY [facility] DEXA SCAN/BONE MINERAL AXIAL 2006 osteoporosis, repeat 2 years DILATION AND CURETTAGE (D&C) unsure why ECHO (2-D COMPLETE) 10/12 Mild LVH, aortic scler - no stenosis EGD, FLEXIBLE, DIAGNOSTIC N/A 04/05/2023 ESOPHAGOGASTRODUODENOSCOPY (EGD), FLEXIBLE, TRANSORAL, DIAGNOSTIC performed by Manjit Webb MD at OR [facility] FRACTURE NOS 10/12 L Tibial Plateau ORIF LIGATE/CUT OVIDUCT(S) LIGATION/BIOPSY OF TEMPORAL ARTERY Left 06/18/2016 06/18/2016 left temportal artery bx dx benign - [facility] Dr. Garcia LUMBAR / SACRAL EPIDURAL, SINGLE LEVEL 10/04/2015 INJECTION TRANSFORAMINAL EPIDURAL LUMBAR OR SACRAL performed by David Costello, at OR [facility] LUMBAR / SACRAL EPIDURAL, SINGLE LEVEL 10/25/2015 INJECTION TRANSFORAMINAL EPIDURAL LUMBAR OR SACRAL performed by David Costello, at OR [facility] MISCELLANEOUS ORDER ([facility] ONLY) 12/15 excision lipoma forehead REPLACE AORTIC VALVE, PERCUTANEOUS FEMORAL N/A 09/20/2020 REPLACE AORTIC VALVE, PERCUTANEOUS FEMORAL performed by Dimitri Maya MD at [facility] REPLACE AORTIC VALVE, PERCUTANEOUS FEMORAL N/A 09/20/2020 REPLACE AORTIC VALVE, PERCUTANEOUS FEMORAL performed by Alexys Almazan MD, PhD at [facility] TOTAL ABD HYSTERECTOMY W/WO REMOVAL OF TUBE(S) 2007 SHARIF w/ Bilateral Salpingo-Oophorectomy Family History: family history includes Cancer in her aunt (unspecified); Heart Disorder in her brother, father, and grandfather (paternal); No Past Hx in her none; Renal Hx in her mother and uncle (unspecified); Thyroid Disorder in her mother. Social History: reports that she has never smoked. She has been exposed to tobacco smoke. She has never used smokeless tobacco. She reports that she does not drink alcohol and does not use drugs. COMPLETE REVIEW OF SYSTEMS: All others negative other than those noted in the HPI. GENERAL MULTI-SYSTEM PHYSICAL EXAM: Vital Signs: BP 120/57 | Pulse 76 | Temp 37.2 C (99 F) (Tympanic) | Resp 20 | Ht 1.448 m (4' 9") | Wt 44.8 kg (98 lb 11.2 oz) | SpO2 99% | BMI 21.36 kg/m | BSA 1.34 m GENERAL: Lying in bed comfortably. NECK: Normocephalic, atraumatic. RESPIRATORY: Breathing comfortably on room air. CARDIOVASCULAR: Regular rate and rhythm. GASTROINTESTINAL: Soft, nontender, nondistended. SKIN: No ecchymosis, no open wounds, no rashes. PSYCHIATRIC: Oriented to time, person, place. NEUROLOGIC: Motor and sensory intact. VASCULAR: Palpable femoral pulses bilaterally and DP bilaterally. LABS: Lab Results Component Value Date/Time WBC 22.41 (H) 05/11/2023 05:41 AM WBC 8.49 12/07/2019 07:52 AM HGB 10.5 (L) 05/11/2023 05:41 AM HGB 11.8 (L) 12/07/2019 07:52 AM PLT 314 05/11/2023 05:41 AM PLT 212 12/07/2019 07:52 AM Lab Results Component Value Date/Time BUN 18 05/11/2023 05:41 AM BUN 19 12/07/2019 07:52 AM CREAT 1.0 05/11/2023 05:41 AM CREAT 0.9 08/19/2020 01:18 PM CREAT 0.9 12/07/2019 07:52 AM GFRESTIMATED >60.0 12/07/2019 07:52 AM NA 138 05/11/2023 05:41 AM NA 142 12/07/2019 07:52 AM POTASSIUM 3.5 05/11/2023 05:41 AM POTASSIUM 4.7 12/07/2019 07:52 AM CL 101 05/11/2023 05:41 AM CL 106 12/07/2019 07:52 AM CO2 22 05/11/2023 05:41 AM CO2 27 12/07/2019 07:52 AM CA 7.8 (L) 05/11/2023 05:41 AM CA 9.4 12/07/2019 07:52 AM Lab Results Component Value Date/Time INR 1.2 05/10/2023 07:24 PM INR 2.86 (H) 10/11/2020 06:04 AM INR 2.67 (H) 10/10/2020 05:46 AM INR 1.12 07/31/2005 08:02 AM DIAGNOSTIC STUDIES: CT CHEST/ABDOMEN/PELVIS WITH IV CONTRAST WITHOUT ORAL CONTRAST Result Date: 05/10/2023 IMPRESSION 1. No acute findings in the chest, abdomen, and pelvis. 2. Duodenojejunal junction failsto cross the midline and the small bowel is mostly in the right lower quadrant, could represent intestinal malrotation. However, cecum and rest of the large bowel loops as well as SMA and SMV are appropriately positioned. No findings to suggest small bowel obstruction. 3. Severe stenosis of celiac artery origin. 4. No findings to suggest malignancy or metastatic disease. 5. Additional incidental and chronic findings as above. I have personally reviewed this examination and agree with the resident/fellow physician's interpretation. XR CHEST 2 VIEWS Result Date: 05/10/2023 IMPRESSION No active cardiopulmonary disease seen. I have personally reviewed this examination and agree with the resident/fellow physician's interpretation. The above CT scan images were personally reviewed on 05/11/2023. IMPRESSIONS: 83 yo F uninterested in food lately and weight loss associated; vascular surgery consulted for possible chronic mesenteric ischemia due to read on CT. Celiac artery is patent but does have an atherosclerotic plaque but this is not flow limiting. PLAN: - Patients signs and symptoms not consistent with chronic mesenteric ischemia - Please continue to work-up additional causes of uninterest in food - Do not hesitate to call with any questions or concerns Rhina Copeland MD Vascular Surgery Fellow Associated attestation - Johnny Saleh MD - 05/11/2023 11:11 AM EST I saw and evaluated the patient today. I have reviewed the trainee note and agree. 83-year-old female failure to thrive. She reports having no appetite. She denies postprandial pain.CTA was read as having a severe celiac artery stenosis however by my read it is widely patent with a large calcific plaque at its origin. Her SMA is also widely patent. At this point there is no concern for chronic mesenteric ischemia. No further vascular imaging or follow-up indicated. * Philly Mejia DO - 05/11/2023 10:12 AM ESTAssociated Order(s): HEMATOLOGY CONSULT IP Images from the original note were not included. 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 She developed dysphagia in March 2023 and has had a decline in her functional status since that time. She has been following ENT and GI for evaluation for etiology. She underwent BAS on 03/27/2023 which showed laryngeal penetration and aspiration of material and thoracic esophageal dysmotility was noted. She then underwent MBSS on 04/03/2023 which showed no aspiration. On 04/05/2023, she underwent EGD which showed no endoscopic esophageal abnormality to explain the dysphagia; however, it was decided to dilate the entire esophagus at that time. The patient underwent flexible laryngoscopy with video stroboscopy on 04/11/2023 with ENT which showed left vocal paresis. She had CT/C/A/P yesterday which showed no organomegaly, obvious masses or lymphadenopathy. Upon discussion with the patient, she has a lack of appetite. She has been more tired. She admits to intermittent chills but has not had any fevers. She states that she had a drenching night sweat about 1 year ago but has not been having these recently. However, it is noted in the admission H and Pthat the patient's daughter reports at least 2 months of drenching night sweats 2-3 nights per week where the patient needs to change her clothes and sheets. Patient states that she typically weighs 150 lb. She currently weighs 98 lb which would indicate an approximately 50 lb weight loss in the last few months. She was given cefdinir in April 2023 for possible pneumonia. She states that she did not feel any different after completing course of antibiotics. She denies nausea/vomiting, abdominal pain, chest pain. She states that while she was in [facility], she was given medication for constipation which subsequently caused her to have diarrhea. She continues to have 1 loose stoola day. Upon review of lab work, the patient has had leukocytosis and neutrophilia since 2020 with worsening since end of March 2023. Lymphopenia since May 2022. Normocytic anemia since April 2023. Subjective REVIEW OF SYSTEMS: Twelve point review of systems performed and is negative other than what is stated in the above HPI. Objective PHYSICAL EXAMINATION: Most Recent Vital Signs: BP: 120 mmHg/57 mmHg (05/11/23716) Pulse: 76 (05/11/23716) Temp: 37.22 C (05/11/23716) Temp Summary: Temp Min: 36.2 C (97.2 F) Max: 37.2 C (99 F) SpO2: 99 % (05/11/23716) O2 flow rate: 0 L/MIN (05/10/232228) Supplemental O2 Delivery: Room Air, None (05/11/23716) Vital Signs Last 24 Hours: Systolic BP: Most Recent Systolic BP Av.3 mmHg Min: 120 mmHg Max: 155 mmHg Temperature: Most Recent Temperature Av.7 C Min: 36.22 C Max: 37.22 C Pulse: Pulse Av.3 Min: 71 Max: 76 Respirations: Resp Av Min: 20 Max: 20 SpO2: SpO2 Av.7 % Min: 99 % Max: 100 % Const: Elderly, frail. Comfortable. No acute distress. HEENT: Normocephalic. No palpable cervical or supraclavicular adenopathy. Sclera nonicteric Heart: RRR. No murmur. Lungs: Clear to auscultation. No wheezes, rhonchi, or crackles. Abd: Abdomen soft, nontender. No hepatosplenomegaly. Normoactive bowel sounds. MSK: No obvious motor deficit. Extrem: No pitting edema or discoloration. Neuro: Awake. Alert and oriented x3. No immediate deficits apparent. Heme: No jaundice. Skin: No rashes appreciated. Psych: Normal mood and affect. LABS: Labs reviewed as indicated below: Latest Reference Range & Units 05/10/23 18:04 05/10/23 23:47 05/11/23 05:41 WBC 4.00 - 10.80 K/uL 23.24 (H) 22.41 (H) HGB 12.0 - 15.3 g/dL 11.9 (L) 10.5 (L) HCT 36.0 - 45.2 % 36.8 33.1 (L) MCV 81.5 - 97.5 fL 93.2 95.1 PLT 140 - 400 K/uL 375 314 Absolute Neutrophils 1.80 - 7.70 K/uL 20.93 (H) 20.22 (H) Absolute Lymphocytes 1.00 - 4.80 K/ul 0.78 (L) 0.73 (L) Absolute Monocytes 0.00 - 1.10 K/uL 0.85 0.83 Absolute Eosinophils 0.00 - 0.70 K/uL 0.29 0.32 Absolute Basophils 0.00 - 0.20 K/uL 0.11 0.09 IRON SCREEN, INCLUDING TIBC Rpt ! Iron 33 - 151 ug/dL 17 (L) Iron Binding Capacity 250 - 425 ug/dL 96 (L) Transferrin Saturation Percent 15 - 55 % 18 Ferritin 13 - 150 ng/mL 1,143 (H) Immature Reticuloctye Fraction 2.5 - 20.6 % 26.8 (H) Reticulocyte Hemoglobin 29.7 - 37.4 pg 32.4 Absolute Reticulocyte 31.3 - 100.1 K/uL 100.1 Reticulocyte Percent 0.80 - 1.90 % 2.54 (H) IMPRESSION: Marie Nieves is an 83-year-old female with history of SSS s/p PPM, history of TAVR, prior pAF (periprocedural, not on anticoagulation). Presents with generalized weakness and ongoing anorexia with poor oral intake and failure to thrive. Hematology team consulted for leukocytosis and neutrophilia. Leukocytosis and Neutrophilia -Persistent since 2020 with recent worsening in March 2023 -Differential diagnoses include myeloproliferative disorder, infectious etiology, inflammatory etiology -CT C/A/P and physical exam without evidence of splenomegaly, hepatomegaly, lymphadenopathy -Patient has had unintentional weight loss, some reports of drenching night sweats -CRP elevated -s/p Cefdinir for suspected PNA in April 2023 Normocytic Anemia -Iron studies not indicative of iron deficiency anemia -Vitamin B12 and folic acid are not deficient Peripheral blood smear reviewed today: Red blood cell morphology appears normal. There are a few platelet clumps and large platelets. There is a predominance of neutrophils. RECOMMENDATIONS: -Myeloproliferative Panel for Next Generation Sequencing has been ordered. We will follow for results. -Recommend continued work up for infectious etiology, such as endocarditis. -CRP is elevated. Recommend work up for inflammatory etiology. Thank you for the opportunity to participate in the care of this patient. The patient was discussed and seen with Dr. Rodriguez, attending physician. Philly Mejia DO Hematology Oncology Fellow Physician, PGY4 Associated attestation - Cody Rodriguez MD - 05/12/2023 5:29 PM EST I saw and evaluated the patient 05/11/23. I have reviewed the trainee note and agree. documented in this encounter Nursing Notes * Oly Jones RN - 05/10/2023 11:00 PM EST Dual Licensed Skin Assessment completed by Oly Jones and Telly Ingrma. The patient is/has a N/A Skin Breakdown (includes non blanchable erythema): No documented in this encounter ED Notes * Fortino Nieves DO - 05/10/2023 6:07 PM EST HISTORY OF PRESENT ILLNESS Marie Nieves is a 83 year old female who presents to the ED for evaluation of Loss of Appetite (20lb weight loss since 03/13); Dehydration; and Weakness, Generalized. The patient was seen at 05/10/23 1806. 83 year old female with history of hypothyroidism, HTN, s/p TAVR among others presenting for evaluation of weakness, loss of appetite. Pt accompanied by family member who report patient has been unable to eat/drink anything since early March. Patient had been evaluated by ENT who felt thepatient had vocal cord paralysis 2/2 viral illness. Swallowing difficulty has since resolved however patient has had no appetite and has not eaten solid food in >1w, has only had several sips of water to take her medications in the last week. Lives with daughter due to weakness/inability to carefor herself. Weakness, Generalized Review of Systems All other systems reviewed and are negative. The patient's allergies, past history, and medications were reviewed. PHYSICAL EXAM Initial Vitals (see all): BP 128/74 | Pulse 76 | Resp 20 | Temp 97.2 | O2 100 %, Room Air, None | Weight 44.8 kg | Height 144.8 cm | BMI 21.37 kg/m2 Initial Pain Assessment (see all): 0 (no pain)/10 ([facility] Adult Scale 0-10) Physical Exam Vitals and nursing note reviewed. Constitutional: General: She is not in acute distress. Appearance: She is well-developed. She is ill-appearing (chronically ill appearing). She is not toxic-appearing. HENT: Head: Normocephalic and atraumatic. Right Ear: External ear normal. Left Ear: External ear normal. Nose: Nose normal. Mouth/Throat: Mouth: Mucous membranes are dry. Eyes: Conjunctiva/sclera: Conjunctivae normal. Cardiovascular: Rate and Rhythm: Normal rate and regular rhythm. Pulses: Normal pulses. Heart sounds: No murmur heard. Pulmonary: Effort: Pulmonary effort is normal. No respiratory distress. Breath sounds: Normal breath sounds. Abdominal: General: Abdomen is flat. There is no distension. Palpations: Abdomen is soft. Tenderness: There is no abdominal tenderness. Musculoskeletal: General: No swelling. Cervical back: Neck supple. Right lower leg: No edema. Left lower leg: No edema. Skin: General: Skin is warm and dry. Capillary Refill: Capillary refill takes 2 to 3 seconds. Findings: No lesion or rash. Neurological: General: No focal deficit present. Mental Status: She is alert and oriented to person, place, and time. Psychiatric: Behavior: Behavior normal. PROCEDURES AND TREATMENTS ED Orders | ED Results MEDICAL DECISION MAKING Nursing notes and vital signs were reviewed. ED Course as of 05/10/232143May 10, 20231831 WBC(!): 23.24 increasing [AM] 184 HGB(!): 11.9 similar [AM] ED Course User Index [AM] Shu Field MD Differential Diagnoses Based on my history, physical exam, and evaluation, the differential includes, but is not limited, to the following diagnoses: dehydration, APARNA, electrolyte abnormality, malignancy, dysphagia. Marie Nieves is a 83 year old with PMH as above presenting to the ED for evaluation of decreased PO intake/failure to thrive. On arrival, vital signs within normal limits and exam notable for findings as above. Specific workup as above in ED course- notable for rising leukocytosis and worsening electrolyte abnormalities. Patient was given NSS bolus and potassium- containing IV fluids for repletion. CT chest/abdomen/pelvis was ordered to evaluate for possible malignancy as reason for her presentation- imaging showed no significant/acute findings. Medicine consulted and accepted pt for admission for further evaluation and management of failure to thrive. Pt understands and agrees with this plan. Amount and/or Complexity of Data Reviewed Labs: ordered. Decision-making details documented in ED Course. Radiology: ordered. Risk Prescription drug management. Decision regarding hospitalization. Clinical Impressions Weakness hypokalemia Disposition Admitted. I discussed the management of this patient with the admitting provider and I made a decision to admit the patient. Admission Order Ordered Status . 05/10/232125 Assign to Observation ONCE Acknowledged Fortino Nieves was the attending physician who supervised the care of this patient. Shu Field MD ATTENDING ATTESTATION I have seen and examined this patient on the 05/10/2023 visit. I have discussed the patient's management with the provider listed above and agree with the note, findings, and plan of care. documented in this encounter Miscellaneous Notes * Ancillary Progress Note - Oriana Macdonald RN - 05/14/2023 10:24 AM EST CARE MANAGEMENT - ADULT DISCHARGE [place] [facility] [address] Name: Marie Nieves [place] [facility] Date: 05/14/2023 Time: 10:24 AM The following coordination of care and discharge plan has been coordinated with the care team, patient, family and/or caregiver according to the patients needs and preferences. Discharge Discharge Second Notice Important Message from Medicare delivered: Yes (05/14/23 1018) Date Delivered: 05/14/23 (05/14/23 1018) Was Caregiver/Family/Facility contacted regarding discharge: Yes (05/14/23 1018) Discharge Transportation: Family/Friends drive (05/14/23 1018) Final Discharge Plan (Complete only at time of Discharge): Home with Services (05/14/23 1018) Home Medical Care - Admitted Since 05/10/2023 Service Provider Selected Services Address Phone Fax Patient Preferred Last Updated [place] [employer] Home Health Services [address] [facility] [address] [phone] -- Oriana Macdonald RN 05/13/2023 5702 Home Medical Care - Episodes Includes Home Medical Care providers with selected services from the active episodes listed below Level 2 Complex Case Management Episode start date: 04/02/2023 There are no active outsourced providers for this episode. Narrative: Pt discharging to home. [facility] health aware of pt's discharge. Pt's daughter will provide transportation home. No further CM needs at this time. Please contact care management for any further questions or concerns. Reviewed IMM with patient and informed that patient is medically stable for discharge, however, mayhave 4 hours to consider whether they want to appeal discharge. Paitient waived waiting those 4 hours and wishes for discharge to occur prior to that time. * Care Plan - Oly Jones RN - 05/14/2023 12:16 AM EST Clinical Goal(s): Pt will not have diarrhea this shift. (05/13/23 1900) Possible barriers to meeting goal(s)/advancing plan of care: Cdiff positive Stability of the patient: Moderately stable - low risk of patient condition declining or worsening Summary regarding today's goal(s): Met: Pt did not have any diarrhea this shift. Recommendations: Continue to monitor for diarrhea. * Ancillary Progress Note - Latoya Albarran RDN - 05/13/2023 12:56 PM EST CLINICAL NUTRITION INTERVAL NOTE [facility] [address] Name: Marie Nieves [place] [facility] Date: 05/13/2023 Time: 12:57 PM How patient was identified (select 2): Medical record number, date, and Name Marie Nieves is being seen in follow up for adjustment in nutritional care Diet: Regular Oral Nutrition Supplement (ONS): Boost High Protein (1 cup provides 250 calories, 20 grams protein, 28 grams carbohydrate) TID Chart reviewed for pertinent nutrition information. Notified by nursing that pt is not drinking current supplements. Reported that pt usually drinks Boost Breeze/Ensure clear at home. Reported that the thicker/creamy Boost/Ensure contribute to phlegm. Will adjust supplements and monitor tolerance. NUTRITION INTERVENTION/PLAN: Orders: Oral nutrition supplement adjusted Added: Boost Breeze (1 cup provides 250 calories, 9 grams protein, 54 grams carbohydrate) TID Discontinued: Boost High Protein Clinical Nutrition Recommendations: Diet: Continue current nutrition plan Latoya Albarran RDN, [place] Clinical Dietitian Extension: [phone] [employer] * Ancillary Progress Note - Oriana Macdonald RN - 05/13/2023 12:50 PM EST CARE MANAGEMENT - ADULT TRANSITION NOTE [address] [address] Name: Marie Nieves Location: [address] Date: 05/13/2023 Time: 12:50 PM Risk Stratification Risk Stratification Psycho Social / Medical Concerns Identified: Adjustment to illness/injury (05/11/23 0900) Readmission Risk Score: 17.65 (05/13/23 1200) AM-PAC Score With Stairs : 20 (05/13/23 0838) Caregiver Information Patient Contacts Name Relation Home Work Mobile Suri Gonzalez Adult Child [phone] Transition of Care Checklist Narrative: Chart reviewed, pt discussed in IDT rounds, not medically ready for discharge today. Pt admitted for failure to thrive, weakness, poor oral intake. Pt found to be positive for CDiff. Pt currently active with [facility] health. Plan for patient to return to her daughter's home at discharge. CM will continue to follow throughout hospitalization for developing discharge needs. Anticipated Transportation at Discharge: daughter Patient/Family Expectations: home Transition Planning Transition Planning Transition Plan/Considerations: Needs uncertain at this time - Continue monitoring for needs (05/11/23 0900) Additional Considerations: none Care Management will continue to monitor and assist with discharge planning needs * Care Plan - Oly Jones RN - 05/13/2023 1:31 AM EST Clinical Goal(s): Pt will remain free from falls this shift. (05/12/23 1900) Possible barriers to meeting goal(s)/advancing plan of care: weakness Stability of the patient: Moderately stable - low risk of patient condition declining or worsening Summary regarding today's goal(s): Met: Pt remained free from falls this shift. Recommendations: Continue rounding, bed alarm, non skid socks, cane when ambulating, reinforce use of call marie. * Care Plan - Carlotta Cabrera RN - 05/12/2023 2:47 PM EST Clinical Goal(s): Pt will remain safe and free of injury for the duration of the shift (05/12/23 0700) Possible barriers to meeting goal(s)/advancing plan of care: n/a Stability of the patient: Moderately stable - low risk of patient condition declining or worsening Summary regarding today's goal(s): Met: Pt remained safe and free of injury Recommendations: Continue to monitor * Care Plan - Oly Jones RN - 05/12/2023 2:34 AM EST Clinical Goal(s): Pt will be free from falls this shift. (05/11/23 1900) Possible barriers to meeting goal(s)/advancing plan of care: weakness Stability of the patient: Moderately stable - low risk of patient condition declining or worsening Summary regarding today's goal(s): Met: Pt remained free from falls this shift. Recommendations: Continue rounding, bed alarm, non skid socks, cane when ambulating, reinforce use of call marie. * Care Plan - Abebe Teran RN - 05/11/2023 11:37 AM EST Problem: Actual & Potential for Falls Goal: Patient will remain free of falls. Outcome: Progressing Problem: Pain & Impaired Comfort Goal: Patient's pain & discomfort is manageable. Outcome: Progressing Problem: Safety & Risk for Injury Goal: Patient will remain free from injury. Outcome: Progressing Problem: Daily Care & Potential Self-Care Deficit Goal: Patient's daily care needs are met. Outcome: Progressing Clinical Goal(s): Pt will be safe and free of falls (05/11/23 0717) Possible barriers to meeting goal(s)/advancing plan of care: Acute process Stability of the patient: Moderately stable - low risk of patient condition declining or worsening Summary regarding today's goal(s): Met: Recommendations: Follow * Medical Necessity - Maia Perkins RN - 05/11/2023 10:55 AM EST AdmissionCare Guideline: Systemic / Infectious Condition, Inpatient Based on the indications selected for the patient, the bed status of Inpatient was determined to beMET The following indications were selected as present at the time of evaluation of the patient: - Severe malnutrition, as indicated by 1 or more of the following: - Inadequate weight gain or nutrient intake, as indicated by 1 or more of the following: - Age 19 years or older and patient has body mass index of less than 18.5BMI Calculator - Age 19 years or older and patient has body mass index of less than 20 and unintentional weight loss of 5% or more of usual body weightBMI Calculator Additional Information: Admitted last night failure to thrive, poor oral intake, unintentional weight loss. Stools are loose and dark however he was unable to tell me if there has been blood noted in them. BMI: 21.3 kg/m2 Weight 98 lb Baseline 115 lb Calcium 7.8 WBC 22.41 CRP 178 ESR 107 Isolyte IV infusion continues AdmissionCare documentation entered by: Maia Perkins [facility], 27th edition, Copyright 2022 [facility] [employer] [facility] All Rights Reserved. [id number] Solely for purpose of utilization review and payment; not a diagnostic tool * Ancillary Progress Note - Arlet Álvarez BSW - 05/11/2023 9:43 AM EST HOME HEALTH/HOSPICE REFERRAL FORM CARE MANAGEMENT [address] [address] Referred By: LAN Nava Admission Date: 05/10/2023 Discharge Date: Discharge Time: afternoon Start Date: 24-48 hours after dc Agency Referred To: [facility] PATIENT INFORMATION: Name: Marie Nieves [address]: [address] [place] [id number] : 1940 (home) SSN: [id number] County: [place] Emergency Contacts: Extended Emergency Contact Information Primary Emergency Contact: Suri Gonzalez Mobile Relation: Adult Child MEDICAL INFORMATION: Principal Diagnosis: weakness Other Diagnosis: See attached History and Physical Surgery and Dates: Past Surgical History: Procedure Laterality Date COLONOSCOPY 06/13 Normal except divertic - repeat 10 yrs COLONOSCOPY, DIAGNOSTIC (RECTUM) 06/11/2014 Diverticulosis, adenomatous polyps, 3 yr repeat/COLONOSCOPY FLEXIBLE PROXIMAL DIAGNOSTIC performed by Andrew Dudley MD at ENDOSCOPY [facility] COLONOSCOPY, DIAGNOSTIC (RECTUM) 06/20/2017 adenomatous polyp, diverticulosis/COLONOSCOPY FLEXIBLE PROXIMAL DIAGNOSTIC performed by Andrew Dudley MD at ENDOSCOPY [facility] DEXA SCAN/BONE MINERAL AXIAL 2006 osteoporosis, repeat 2 years DILATION AND CURETTAGE (D&C) unsure why ECHO (2-D COMPLETE) 10/12 Mild LVH, aortic scler - no stenosis EGD, FLEXIBLE, DIAGNOSTIC N/A 04/05/2023 ESOPHAGOGASTRODUODENOSCOPY (EGD), FLEXIBLE, TRANSORAL, DIAGNOSTIC performed by Manjit Webb MD at OR [facility] FRACTURE NOS 10/12 L Tibial Plateau ORIF LIGATE/CUT OVIDUCT(S) LIGATION/BIOPSY OF TEMPORAL ARTERY Left 06/18/2016 06/18/2016 left temportal artery bx dx benign - [facility] Dr. Garcia LUMBAR / SACRAL EPIDURAL, SINGLE LEVEL 10/04/2015 INJECTION TRANSFORAMINAL EPIDURAL LUMBAR OR SACRAL performed by David Costello DO at OR [facility] LUMBAR / SACRAL EPIDURAL, SINGLE LEVEL 10/25/2015 INJECTION TRANSFORAMINAL EPIDURAL LUMBAR OR SACRAL performed by David Costello DO at OR [facility] MISCELLANEOUS ORDER ([facility] ONLY) 12/15 excision lipoma forehead REPLACE AORTIC VALVE, PERCUTANEOUS FEMORAL N/A 09/20/2020 REPLACE AORTIC VALVE, PERCUTANEOUS FEMORAL performed by Dimitri Maya MD at [facility] REPLACE AORTIC VALVE, PERCUTANEOUS FEMORAL N/A 09/20/2020 REPLACE AORTIC VALVE, PERCUTANEOUS FEMORAL performed by Alexys Almazan MD, PhD at [facility] TOTAL ABD HYSTERECTOMY W/WO REMOVAL OF TUBE(S) 2007 SHARIF w/ Bilateral Salpingo-Oophorectomy Diet: Adults: As tolerated Allergies: Heparin Isolation Type: None Activity Restrictions: Activity as tolerated Isolation For: None HOME CARE ORDERS: (Discipline and Frequency): Assisted assessment Home safety evaluation PT/OT evaluation and treat Lab work as indicated on discharge instructions Assess disease management and instruct Medication Management Medications Dose, Frequency, & Route: Refer to Physician's Discharge Instructions Equipment and Supplies: N/A Ordering Physician and Contact Information: Trixie Cloud MD Comments: na PCP: PCP: OTTONIEL KENYON [address] [place], [place] [id number] D/C Physician: Trixie Cloud MD Insurance: See attached facesheet. * Ancillary Progress Note - Arlet Álvarez BSW - 05/11/2023 9:28 AM EST CARE MANAGEMENT - ADULT INITIAL SCREENING [address] [address] Name: Marie Nieves [place] [place] Date: 05/11/2023 Time: 9:28 AM Discussed patient with the interdisciplinary care team. This [employer] Team Member performed a chart review and spoke with pts daughterSuri, via phone to complete admission screen and assessed needs for transition planning. The attending ambulatory care role and services were explained and emotional support was provided. Chief Complaint: Loss of Appetite (20 lb weight loss since 03/13); Dehydration; and Weakness, Generalized Prior Living Arrangements What was your living situation prior to admission/observation?: With Child (05/10/232304) Living Quarters: House (05/11/23899) Number of steps to enter living quarters:: 1 (05/11/23899) Do you have serious difficulty walking or climbing stairs? (5 years old or older): No (05/10/232304) History of falling: No (05/10/232229) Prior Level of Functioning Describe the patient's ability prior to admission/observation to perform ADLs: Performs independently (05/10/232304) Describe the patient's mobility status prior to admission: Patient ambulates independently (05/10/232304) Patient uses assistive device: Yes (05/10/232304) If yes, choose:: Cane (05/10/232304) Caregiver Information Patient Contacts Name Relation Home Work Mobile Suri Gonzalez Adult Child [phone] Risk Stratification/Psychosocial/Care Gaps Risk Stratification Psycho Social / Medical Concerns Identified: Adjustment to illness/injury (05/11/23899) Readmission Risk Score: 17.32 (05/11/23799) AM-PAC Score With Stairs : 18 (05/10/232219) Prior to Admission Services Services Prior to Admission RADIO MACHINIST Services (Services received within the last 30 days with exception, Psych within last two years): Home Health (unsure of agency name-pt gets PT/OT/SN) (05/11/23899) RADIO MACHINIST Transportation (Services received within the last 30 days): Patient drives self (05/11/23899) Outpatient Seafood Team Member: Patient Care Team: Jeanie Villagran, DONALD as Brake Coupler Dinkey (Registered Nurse) Patient/Family Expectations: RADIO MACHINIST, pt was living in her own home (1 story, 1 [address]ALL[address]) up until recently,about 3 weeks ago pt moved in with pts Elio pachecoa. Suri reports pt is active with HH, per chart review: [facility] for PT/OT/SN. Suri states that pt has not been able to do much therapy lately. Suri states that pt would like to be back in her own home. Pt was independent with ADL's, and uses a cane at baseline-Suri states pt has a walker but refuses to use it. Pt is not on 02 at baseline. For further screening information, please refer to the Care Management flow document. * Progress Notes - Non-Billable - Champ Varela PA Student - 05/11/2023 9:03 AM EST Unless the attending has added an attestation supporting use of this note to document a billable service, the signature of the Licensed Professional on this note only acknowledges the presence of thestudent's note within the patient record and the Licensed Professional's note should be referred tofor clinical information and recommendations. STUDENT NOTE PROGRESS NOTE - [facility] Medicine Service [facility] [address] Name: Marie Nieves Location: [facility] G[facility] Date: 05/11/2023 Time: 9:04 AM Hospital Day # 2 SUBJECTIVE: Patient is an 83 year old women who was admitted yesterday due to failure to thrive andgeneralized weakness. She was unable to tolerate any solid food since early March due to vocal cord paralysis, but this has improved and patient is still unable to tolerate PO. She has also been experiencing unintentional weight loss and night sweats. Patient was seen this morning at bedside and was laying comfortably. She voices no acute overnight events and has no acute complains. She states she slept well and is feeling good. Has been sipping on water that is present at her bedside. When asked about night sweats, she denies experiencing any last night and states this does not happen often. She can not recall the last time she has had night sweats. Regarding her not eating as of late, she states that she is simply just not interested in eating and will leave her meal untouched. She is denying having a BAUER, blurred vision, feeling weak or lightheaded, N/V/D, blood in the stool,abdominal pain, SOB, or chest pain. OBJECTIVE: Most Recent Vital Signs: BP: 120 mmHg/57 mmHg (05/11/23716) Pulse: 76 (05/11/23716) Temp: 37.22 C (05/11/23716) Temp Summary: Temp Min: 36.2 C (97.2 F) Max: 37.2 C (99 F) SpO2: 99 % (05/11/23716) O2 flow rate: 0 L/MIN (05/10/232228) Supplemental O2 Delivery: Room Air, None (05/11/23716) Vital Signs Last 24 Hours: Systolic BP: Most Recent Systolic BP Av.3 mmHg Min: 120 mmHg Max: 155 mmHg Temperature: Most Recent Temperature Av.7 C Min: 36.22 C Max: 37.22 C Pulse: Pulse Av.3 Min: 71 Max: 76 Respirations: Resp Av Min: 20 Max: 20 SpO2: SpO2 Av.7 % Min: 99 % Max: 100 % Constitutional: No Apparent distress but appears chronically ill and weak. HEENT: normocephalic, atraumatic; no masses, tenderness, or adenopathy Eyes: PERRLA, sclera and conjunctiva normal CV: Normal Rate, no murmur, gallops or rub Chest: normal respiratory effort, lungs clear to auscultation Abdomen: normal: soft, bowel sounds normal, no masses, tenderness or organomegaly Musculoskeletal: (-) negative Extremities: no clubbing, cyanosis, or edema, otherwise grossly normal, warm, and dry Skin: warm, dry, intact: Neuro: alert, oriented to person, place, and time, normal mental status exam Psych: normal mood and affect, judgement normal, memory normal LABS: Labs reviewed as indicated below: Latest Reference Range & Units 05/11/23 05:41 Sodium 135 - 146 mmol/L 138 Potassium 3.5 - 5.1 mmol/L 3.5 Chloride 98 - 107 mmol/L 101 CO2 22 - 32 mmol/L 22 BUN 6 - 20 mg/dL 18 Creatinine 0.5 - 1.0 mg/dL 1.0 Estimated Glomerular Filtration Rate >=60 mL/min 59 (L) Anion Gap 7 - 15 mmol/L 15 Glucose 70 - 120 mg/dL 96 Calcium 8.4 - 10.2 mg/dL 7.8 (L) Lactate 0.4 - 2.0 mmol/L 1.6 CBC Rpt ! CBC WITH WBC DIFFERENTIAL Rpt ! WBC 4.00 - 10.80 K/uL 22.41 (H) HGB 12.0 - 15.3 g/dL 10.5 (L) HCT 36.0 - 45.2 % 33.1 (L) MCV 81.5 - 97.5 fL 95.1 PLT 140 - 400 K/uL 314 Absolute Neutrophils 1.80 - 7.70 K/uL 20.22 (H) Absolute Lymphocytes 1.00 - 4.80 K/ul 0.73 (L) Absolute Monocytes 0.00 - 1.10 K/uL 0.83 Absolute Eosinophils 0.00 - 0.70 K/uL 0.32 Absolute Basophils 0.00 - 0.20 K/uL 0.09 (L): Data is abnormally low !: Data is abnormal (H): Data is abnormally high Rpt: View report in Results Review for more information IMAGING: XR chest FINDINGS FOREIGN BODIES, SUPPORT TUBES, LINES, DEVICES: Left-sided cardiac pacer. TAVR. LUNGS, PLEURA: No consolidation. No pneumothorax or effusion. CARDIOVASCULAR, MEDIASTINUM: The cardiomediastinal silhouette is within normal limits. OTHER: Degenerative osseous changes IMPRESSION No active cardiopulmonary disease seen CT chest/abdomen/pelvis FINDINGS LINES AND DEVICES: Left-sided cardiac pacemaker. TAVR. CHEST: LUNGS: Bibasilar dependent atelectatic changes. Bilateral sub 5 mm solid nodular densities, likely postinflammatory foci. PLEURA: No pleural effusions. LARGE AIRWAYS: Patent airways. HEART: Cardiomegaly. Status post TAVR. VESSELS: Severe coronary artery and aortic calcification THYROID: The visualized gland is unremarkable. MEDIASTINUM: No lymphadenopathy. CHEST WALL/SOFT TISSUES: Multi lead cardiac device in the left anterior chest wall. ABDOMEN/PELVIS: LIVER: Nodular contour. Few hypodense lesions, likely cysts. BILE DUCTS: Unremarkable. GALLBLADDER: Unremarkable. PANCREAS: Unremarkable. SPLEEN: Few tiny hypodensities, likely cysts. STOMACH: Small hiatal hernia. ADRENALS: Bilateral nodular thickening, nonspecific. KIDNEYS/URETERS: Unremarkable. BLADDER: Unremarkable. REPRODUCTIVE ORGANS: Hysterectomy. BOWEL: Duodenojejunal junction fails to cross midline and it lies below the level of the duodenal bulb. The small bowel is mostly in the right lower quadrant. The cecum and large bowel loops appears to be appropriately positioned. No findings to suggest small bowel obstruction. Colonic diverticulosis. Normal appendix. VESSELS: Heavy atherosclerosis of the aorta and its branches. 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 LYMPH NODES: No lymphadenopathy. PERITONEUM/RETROPERITONEUM: No free fluid or free air. ABDOMINAL WALL/SOFT TISSUES: Unremarkable. BONES: Severe degenerative osseous changes. IMPRESSION 1. No acute findings in the chest, abdomen, and pelvis. 2. Duodenojejunal junction fails to cross the midline and the small bowel is mostly in the right lower quadrant, could represent intestinal malrotation. However, cecum and rest of the large bowel loops as well as SMA and SMV are appropriately positioned. No findings to suggest small bowel obstruction. 3. Severe stenosis of celiac artery origin. 4. No findings to suggest malignancy or metastatic disease. 5. Additional incidental and chronic findings as above. IMPRESSION and PLAN: Principal Problem: Failure to thrive in adult (POA: Yes) Active Problems: Dyslipidemia, goal LDL below 130 (POA: Yes) Hypothyroidism (POA: Yes) HTN, goal below 140/90 (POA: Yes) Gastroesophageal reflux disease without esophagitis (POA: Yes) S/P TAVR (transcatheter aortic valve replacement) (POA: Yes) Generalized weakness (POA: Yes) History of pulmonary embolism (POA: Yes) Paroxysmal atrial fibrillation (HCC) (POA: Yes) 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) (POA: Yes) Overview: Per CKD protocol Chronic kidney disease, stage 3a (HCC) (POA: Yes) Overview: Per CKD protocol Cardiac pacemaker in situ (POA: Yes) Sick sinus syndrome (HCC) (POA: Yes) Atrial fibrillation (HCC) (POA: Yes) POA = Present On Admission Failure to thrive with poor oral intake associated with unintentional weight loss and occasional night sweats Progressing neutrophilic leukocytosis - unclear etiology CT evidence of intestinal malrotation w/o obstruction or symptoms making this unlikely that cause of her symptoms. No evidence for malignancy or metastatic disease on imaging . Patient reports she had seen ENT in early March to which she has vocal cord paralysis which caused dysphagia. The dysphagia has since improved but she has still not been interested in eating. She has had unintentional weight loss of 20lbs ?malignancy vs not eating. F/U on UA Diet supplementation with boost and possible appetite. Consider possible appetite stimulation medication if a cause of her symptoms is not identified while admitted. Continue following inflammatory markers PT/OT consult for generalized weakness Dietitian consult and possible GI consult depending on course of illness. 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 Her RADIO MACHINIST Rocklatan gtts are non-formulary, so will instead order Xalatan drops for now. Hx of aortic valve replacement: Continue RADIO MACHINIST ASA 81mg qd Hypothyroidism: Continue RADIO MACHINIST Levothyroxine 100mcg qd GERD: Continue RADIO MACHINIST Protonix 40mg qd. Dose-reduce RADIO MACHINIST Pepcid to 10mg qd for renal funciton Diet: Regular diet DVT Ppx: N/A. Hx of HIT-2 so avoiding heparin based products Disposition: Estimated discharge date is not yet available * Care Plan - Oly Jones RN - 05/11/2023 3:17 AM EST Clinical Goal(s): Pt will remain free from falls this shift. (05/10/232219) Possible barriers to meeting goal(s)/advancing plan of care: weakness Stability of the patient: Moderately stable - low risk of patient condition declining or worsening Summary regarding today's goal(s): Met: Pt remained free from falls this shift. Recommendations: Continue rounding, bed alarm, non skid socks, personal belongings at bedside, reinforce use of call marie. * ED [employer]fuels Operations Manager Note - Niharika Heath RN - 05/10/2023 9:54 PM EST Hand-Off - Nurse Communication Note Name: Marie Nieves Location: [facility] Date: 05/10/2023 Time: 9:54 PM Sending to: GP210 / A Safety Concerns: Fall Risk Allergies: Heparin Code Status: Prior Isolation: None Isolation flowsheet: Special Needs: Special Needs comments: Attention to: GP2 charge nurse Report from: Niharika Heath RN Phone extension: [phone] Patient arriving via: Stretcher Reason for SBAR handoff: Admission Situation/Background Admission date: 05/10/2023 Patient Service: Medicine Admit 2 [[id number]] Attending Provider: Leidy Webb DO Admitting diagnosis: Weakness Chief Complaint: Loss of Appetite (20 lb weight loss since 03/13); Dehydration; and Weakness, Generalized Problem list: Principal Problem: Failure to thrive in adult Active Problems: Dyslipidemia, goal LDL below 130 Hypothyroidism HTN, goal below 140/90 Gastroesophageal reflux disease without esophagitis S/P TAVR (transcatheter aortic valve replacement) Generalized weakness History of pulmonary embolism Paroxysmal atrial fibrillation (HCC) 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) Chronic kidney disease, stage 3a (HCC) Cardiac pacemaker in situ Sick sinus syndrome (HCC) Atrial fibrillation (HCC) Resolved Problems: * No resolved hospital problems. * Level of Care: Med Surg [3] Assessment Vital Signs: BP: 128/74 (05/10/231743) Temp: 36.2 C (97.2 F) (05/10/231743) Pulse: 76 (05/10/231743) Resp: 20 (05/10/231743) SpO2: 100 % (05/10/231743) Glucose (Bedside): 109 (05/10/232099) Weight: 44.8 kg (98 lb 12.3 oz) (05/10/231743) Fall Scale: Fall Score: 45 (05/10/231929) Fall Interventions: Bed at low level;Floor free of clutter;Walk path free of obstacles;Yellow armband applied/intact and on patient;Reoriented patient (05/10/231929) Neurological: [place] Coma Scale Eyes Open: Spontaneous (05/10/231899) Best Verbal Response: Verbally appropriate for age (05/10/231899) Best Motor Response: Obeys commands appropriate for age (05/10/231899) Coma Score: 15 (05/10/231899) Additional Neurological Information: Respiratory: Respiratory WNL: WNL- within normal limits (05/10/231899) Oxygen therapy/ Mechanical vent Supplemental O2 Delivery: Room Air, None (05/10/231743) Additional Respiratory Information: Cardiac: Rhythm: Regular (05/10/231899) Extremities: +Sensation;Right;Left;Lower;Upper;[place];Warm (05/10/231899) Pulses Right: Radial +;Palpable (05/10/231899) Pulses Left: Palpable;Radial + (05/10/231899) Capillary Refill: 3 sec (05/10/231899) Additional Cardiac Information: GI/: Additional GI/ Information: Integumentary: Skin Description: Dry;Warm (05/10/231899) Skin Color: Mucus Membranes [place];Nail beds pink (05/10/231899) Additional Integumentary Information: Restraints: No orders of the defined types were placed in this encounter. Lines: Peripheral Line Left Arm 20 Gauge (Active) Number of days: 53 Peripheral Line Left Hand 20 Gauge (Active) Number of days: 0 Labs: Labs This Encounter COMPREHENSIVE METABOLIC PANEL - Abnormal; Notable for the following components: Result Value Ref Range BUN 22 6 - 20 mg/dL Creatinine 1.1 0.5 - 1.0 mg/dL Estimated Glomerular Filtration Rate 50 >=60 mL/min Sodium 134 135 - 146 mmol/L Potassium 2.5 3.5 - 5.1 mmol/L Chloride 95 98 - 107 mmol/L Anion Gap 16 7 - 15 mmol/L Glucose 134 70 - 120 mg/dL Albumin 2.8 3.8 - 5.0 g/dL AST 84 10 - 35 U/L ALT 74 10 - 35 U/L All other components within normal limits TROPONIN T, HIGH SENSITIVITY - Abnormal; Notable for the following components: Troponin T, High Sensitivity 28 <=14 ng/L All other components within normal limits CBC - Abnormal; Notable for the following components: WBC 23.24 4.00 - 10.80 K/uL HGB 11.9 12.0 - 15.3 g/dL All other components within normal limits DIFFERENTIAL, AUTOMATED - Abnormal; Notable for the following components: WBC 23.24 4.00 - 10.80 K/uL Neutrophils % 90.0 40.0 - 75.0 % Lymphocytes % 3.4 18.0 - 42.0 % Absolute Neutrophils 20.93 1.80 - 7.70 K/uL Absolute Lymphocytes 0.78 1.00 - 4.80 K/ul Absolute Immature Granulocytes 0.28 0.00 - 0.20 K/uL All other components within normal limits PT INR - Abnormal; Notable for the following components: Prothrombin Time 15.5 11.6 - 15.2 seconds All other components within normal limits Narrative: Warfarin Therapy INR: 2.0-3.0 conventional anticoagulation INR: 2.5-3.5 high intensity anticoagulation TROPONIN T, HIGH SENSITIVITY - Abnormal; Notable for the following components: Troponin T, High Sensitivity 27 <=14 ng/L All other components within normal limits MAGNESIUM - Normal PHOSPHORUS - Normal LIPASE - Normal GLUCOSE METER, POINT OF CARE - Normal CBC WITH WBC DIFFERENTIAL Narrative: The following orders were created for panel order CBC WITH WBC DIFFERENTIAL. Procedure Abnormality Status --------- ------ CBC[[id number]] Abnormal Final result DIFFERENTIAL, AUTOMATED[[id number]] Abnormal Final result Please view results for these tests on the individual orders. URINALYSIS, REFLEX TO MICROSCOPIC SARS-COV-2 (COVID-19), NAAT TSH WITH FREE T4 IF INDICATED URINALYSIS, REFLEX TO CULTURE (NOT FOR NEUTROPENIC PATIENTS) Narrative: The following orders were created for panel order URINALYSIS, REFLEX TO CULTURE (NOT FOR NEUTROPENIC PATIENTS). Procedure Abnormality Status --------- ------ URINALYSIS, REFLEX TO CU...[[id number]] URINALYSIS, REFLEX TO CU...[[id number]] Please view results for these tests on the individual orders. URINALYSIS, REFLEX TO CULTURE (CUP ONLY) URINALYSIS, REFLEX TO CULTURE GLUCOSE METER, POINT OF CARE (COMMUNICATION ORDER) Diet: No orders of the defined types were placed in this encounter. Additional Diet Information: Intake and Output: No intake or output data in the 24 hours ending 05/10/232153 Patient Belongings and Home Medications Patient Belongings at Bedside Belongings at Bedside: Vision;Electronic devices;Clothing (05/10/231928) Vision - Corrective Lenses: Glasses (05/10/231928) Clothing: Jacket/coat (05/10/231928) Patient Electronics: Cell phone (05/10/231928) Patient Belongings Sent Home (Does not apply to Ambulatory areas) Belongings Sent Home: None (05/10/231928) Patient Belongings Sent to Safe/Locker Belongings Sent to Safe: None (05/10/231928) Patient Medications Medications Brought by Patient?: No (05/10/231928) Recommendations/Follow up Goals/Plan of Care: Consults not completed: Anticipated tests/studies/procedures: Medication Reconcilliation completed for this ? No * Medical Necessity - Halley Rouse RN - 05/10/2023 9:39 PM EST AdmissionCare Guideline: General Observation, Observation Based on the indications selected for the patient, the bed status of Observation was determined to be MET The following indications were selected as present at the time of evaluation of the patient: - Clinical care (eg, testing, monitoring, or treatment) needed beyond the usual emergency department time frame (eg, 3 to 4 hours) - Clinical care needed is not appropriate for a lower level of care (ie, discharge to outpatient setting not appropriate). - Patient has clinical condition for which observation care is needed, as indicated by 1 or more ofthe following: - Electrolyte or metabolic condition or finding (eg, hypernatremia, hyponatremia, hyperkalemia, hypokalemia, hypercalcemia, metabolic acidosis, malnutrition, Anasarca) Additional Information: David Naisl has had no appetite and has not eaten solid food in >1w, has only had several sips of water to take her medications in the last week. Lives with daughter due to weakness/inability to care for herself. AdmissionCare documentation entered by: Halley Rouse [facility], 27th edition, Copyright [address] [facility] All Rights Reserved. [id number]:[id number]:00 Solely for purpose of utilization review and payment; not a diagnostic tool documented in this encounter Plan of Treatment Upcoming Encounters Date Type Department Care Team (Late st Contact Info) Description 05/17/2023 11:00 AM EST Nutrition Services Nutrition, [place] [address] [place] [address] Ciara Mac RDN [address] [place] [address] 05/21/2023 2:00 PM EDT [address] [phone] [facility] [facility] [address] 06/18/2023 4:00 PM EDT Office Visit Hematology/Oncology [address] [place] [address] [place] [phone] Rigoberto Aguilera MD [address] [place] [address] 06/28/2023 8:00 AM EDT [address] [phone] [facility] [facility] [address] 08/01/2023 3:00 PM EDT Office Visit Orthopaedics [facility] [address] [place] [address] Chava Huff PA-C [address] [place] [address] 08/08/2023 2:20 PM EDT Office Visit Otolaryngology/Head & Neck/Facial Plastic Surgery [address] [place] [address] Joesph Yun MD [address] [place] [address] 09/02/2023 9:00 AM EDT Office Visit Cardiology, [facility] [address] [place] [address] Halley Preston CRNP [address] [place] [address] 10/01/2023 10:30 AM EDT Rehab Services Voice Lab, [facility] [address] [place] [address] Lance Samuels, [facility] SUPERVISOR [address] [place] [address] 10/01/2023 11:00 AM EDT Appointment Radiology, [facility] [address] [place] [phone] 02/10/2024 10:00 AM EST Cardiac Studies Cardiology, [facility] [address] [place] [address] [facility] [place] [address] [place] [address] 02/13/2024 8:15 AM EST Cardiac Studies Cardiac Studies, [facility] [address] [place] [address] Pending Results Name Type Priority Associated Diagnoses Date /Time MYGENVAR MYELOPROLIFERATIVE PANEL, NEXT GENERATION SEQUENCING Lab Routine 05/11/2023 11:48 AM EST Scheduled Orders Name Type Priority Associated Diagnoses Orde r Schedule EKG EKG Routine Weakness Perform Now for 1 Occurrences starting 05/10/2023 until 05/10/2023 MYGENVAR MYELOPROLIFERATIVE PANEL, NEXT GENERATION SEQUENCING Lab Routine One Time for 1 Occurrences starting 05/11/2023 until 05/11/2023, 1 completed CBC WITH WBC DIFFERENTIAL Lab Routine C. difficile colitis Neutrophilia Expected: 05/20/2023, Expires: 06/14/2023 BASIC METABOLIC PANEL Lab Routine C. difficile colitis Expected: 05/14/2023, Expires: 06/14/2023 Health Maintenance Due Date Last Done Comments Zoster Vaccines (2 of 3) 07/17/2007 05/22/2007 COVID-19 Vaccine ( season) 2022 12/26/2021, 02/14/2021, 06/09/2020, Additional history exists DXA Scan 02/14/2023 02/14/2021, 09/2020, 07/02/2017, Additional history exists Albumin/Creatinine Ratio 06/09/2023 06/08/2022, 3 03/2021 GFR 11/14/2023 05/14/2023, 0 06/2023, 05/12/2023, Additional history exists Depression Screening 04/02/2024 04/02/2023 TSH 05/09/2024 05/10/2023, 04/11, 04/15/2023, Additional history exists CKD HGB USE SMARTSET 34606 05/13/202405/13, 05/14/2023, 05/13/2023, Additional history exists CKD PHOS USE SMARTSET 30282 05/13/2024 03/0 07/2023, 05/13/2023, 05/12/2023, Additional history exists DTaP,Tdap,and Td Vaccines (2 - Td or Tdap) 08/14/2024 08/14/2014, 01/25/2000 Pneumococcal Vaccine: 65+ Years Completed 01/06/2015, 08/19/2007 VITAMIN D LEVEL ONCE IN A LIFETIME-USE SMARTSET# 88875 Completed 12/11/2018, 07/07/2018, 10/06/2010 Influenza Vaccine (FLU [...] this encounter Medical Devices Implanted Type Area Chemist Helper Device Identifier Shelf Expiration Date Model / Serial / Lot Molly Pacemaker-12/05 Implanted:Qty: 1 on 12/05/2022 ICD Chest [employer] : CARDIAC SURGERY 09/02/2025 [id number] / / . Lead-12/05/2022 Implanted:Qty: 2 on 12/05/2022 Lead Chest [employer] : CARDIAC SURGERY 10/28/2025 [id number] / / . Balloon Cath Pacing [id number] - [id number] Implanted:Qty: 1 on 09/20/2020 at [facility] BARD : MEDICAL [id number] 07/08/2022 [id number] / / [id number] Proglide Perclose [id number] X10 - [id number] Implanted:Qty: 1 on 09/20/2020 at [facility] : VASCULAR DEVICES [id number] 06/08/2022 [id number] / / [id number] Valve Bg 3 Ultra 23mm - [id number] Implanted:Qty: 1 on 09/20/2020 by Dimitri Maya MD at [facility] [employer] [id number] 09/22/2022 [id number] / / . Lead Tempo Temp Pacing - [id number] Implanted:Qty: 1 on 09/20/2020 at [facility] [employer] [id number] 06/28/2021 [id number] / / [id number] documented as of this encounter Procedures Procedure Name Priority Date/Time Associated Diagnosis Comments DIFFERENTIAL, AUTOMATED Routine 05/14/19 5:38 AM EST BASIC METABOLIC PANEL Routine 05/14/2023 5:38 AM EST CBC Routine 05/14/2023 5:38 AM EST PHOSPHORUS Routine 05/14/2023 5:38 AM EST CBC Routine 05/14/2023 5:38 AM EST MAGNESIUM Routine 05/14/2023 5:38 AM EST DIFFERENTIAL, AUTOMATED Routine 05/13/19 4:09 AM EST BASIC METABOLIC PANEL Routine 05/13/2023 4:09 AM EST CBC Routine 05/13/2023 4:09 AM EST PHOSPHORUS Routine 05/13/2023 4:09 AM EST CBC Routine 05/13/2023 4:09 AM EST MAGNESIUM Routine 05/13/2023 4:09 AM EST CLOSTRIDIUM DIFFICILE, PCR STAT 05/12/2023 4:53 PM EST ECHO, COMPLETE (2D), TRANS-THORACIC Routine 05/12/2023 11:46 AM EST Endocarditis DIFFERENTIAL, AUTOMATED Routine 05/12/19 4:48 AM EST BASIC METABOLIC PANEL Routine 05/12/2023 4:48 AM EST CBC Routine 05/12/2023 4:48 AM EST PHOSPHORUS Routine 05/12/2023 4:48 AM EST CBC Routine 05/12/2023 4:48 AM EST MAGNESIUM Routine 05/12/2023 4:48 AM EST GASTROINTESTINAL PATHOGEN PANEL, STOOL Routine 05/11/2023 7:42 PM EST GASTROINTESTINAL PATHOGEN PANEL CULTURE Routine 05/11/2023 7:42 PM EST GASTROINTESTINAL PATHOGEN PANEL PCR Routine 05/11/2023 7:42 PM EST HC ECG TRACING ONLY STAT 05/11/2023 6 :10 PM EST Coronary artery disease URINALYSIS, REFLEX TO CULTURE Routine 05/11/2023 12:42 PM EST URINALYSIS, REFLEX TO CULTURE (CUP ONLY) Routine 05/11/2023 12:42 PM EST URINALYSIS, REFLEX TO CULTURE (NOT FOR NEUTROPENIC PATIENTS) Routine 05/11/2023 12:42 PM EST CULTURE, URINE, QUANTITATIVE Routine 05/11/2023 12:42 PM EST PROTEIN/ CREATININE RATIO, URINE Routine 05/11/2023 12:42 PM EST URINE PROTEIN ELECTROPHORESIS REFLEX PROFILE, RANDOM URINE Routine 05/11/2023 12:42 PM EST DIFFERENTIAL, AUTOMATED Routine 05/11/19 5:41 AM EST PROCALCITONIN Add-on 05/11/2023 5:41 AM EST SERUM PROTEIN ELECTROPHORESIS REFLEX PROFILE Routine 05/11/2023 5:41 AM EST BASIC METABOLIC PANEL Routine 05/11/2023 5:41 AM EST SERUM FREE LIGHT CHAINS Routine 05/11/19 24 5:41 AM EST CBC Routine 05/11/2023 5:41 AM EST LACTATE Routine 05/11/2023 5:41 AM EST CBC Routine 05/11/2023 5:41 AM EST HAPTOGLOBIN Add-on 05/11/2023 5:41 AM EST CRP (INFLAMMATORY MARKER) Add-on 05/10/2023 11:47 PM EST IRON SCREEN, INCLUDING TIBC Routine 05/10/2023 11:47 PM EST LD Routine 05/10/2023 11:47 PM EST URIC ACID Routine 05/10/2023 11:47 PM EST FERRITIN Routine 05/10/2023 11:47 PM EST SARS-COV-2 (COVID-19), NAAT STAT 05/10/2023 9:46 PM EST GLUCOSE METER, POINT OF CARE MARIO 05/10/2023 9:[address] CHEST/ABDOMEN/PELVIS WITH IV CONTRAST WITHOUT ORAL CONTRAST STAT 05/10/2023 7:39 PM EST TROPONIN T, HIGH SENSITIVITY STAT 05/10/2023 7:24 PM EST TSH WITH FREE T4 IF INDICATED Add-on 05/10/2023 7:24 PM EST PT INR STAT 05/10/2023 7:24 PM EST CLINICIAN PERIPHERAL BLOOD SLIDE REQUEST Add-on 05/10/2023 6:04 PM EST DIFFERENTIAL, AUTOMATED STAT 05/10/19 6:04 PM EST TROPONIN T, HIGH SENSITIVITY STAT 05/10/2023 6:04 PM EST RETICULOCYTE PANEL Add-on 05/10/2023 6: 04 PM EST COMPREHENSIVE METABOLIC PANEL STAT 05/10/2023 6:04 PM EST CBC STAT 05/10/2023 6:04 PM EST PHOSPHORUS Add-on 05/10/2023 6:04 PM EST LIPASE Add-on 05/10/2023 6:04 PM EST ERYTHROCYTE SEDIMENTATION RATE (ESR) Add-on 05/10/2023 6:04 PM EST CBC STAT 05/10/2023 6:04 PM EST MAGNESIUM Add-on 05/10/2023 6:04 PM EST XR CHEST 2 VIEWS STAT 05/10/2023 6:02 PM EST documented in this encounter Results * (ABNORMAL) DIFFERENTIAL, AUTOMATED (05/14/2023 5:38 AM EST) WBC 16.80(H) 4.00 - 10.80 K/uL 05/14/2023 6:12 AM EST [facility] Neutrophils % 88.5(H) 40.0 - 75.0 % 05/14/2023 6:12 AM EST [facility] Lymphocytes % 3.4(L) 18.0 - 42.0 % 05/14/2023 6:12 AM EST [facility] Monocytes % 4.3 1.0 - 11.0 % 05/14/2023 6:12 AM EST [facility] Eosinophils % 2.4 0.0 - 6.0 % 05/14/2023 6:12 AM EST [facility] Basophils % 0.4 0.0 - 2.0 % 05/14/2023 6:12 AM EST [facility] Immature Granulocytes % 1.0 0.0 - 2.0 % 05/14/2023 6:12 AM EST [facility] Absolute Neutrophils 14.86(H) 1.80 - 7.70 K/uL 05/14/2023 6:12 AM EST [facility] Absolute Lymphocytes 0.57(L) 1.00 - 4.80 K/ul 05/14/2023 6:12 AM EST [facility] Absolute Monocytes 0.72 0.00 - 1.10 K/uL 05/14/2023 6:12 AM EST [facility] Absolute Eosinophils 0.41 0.00 - 0.70 K/uL 05/14/2023 6:12 AM EST [facility] Absolute Basophils 0.07 0.00 - 0.20 K/uL 05/14/2023 6:12 AM EST [facility] Absolute Immature Granulocytes 0.17 0.00 - 0.20 K/uL 05/14/2023 6:12 AM EST [facility] Blood Venous blood specimen / Unknown Venipuncture / Unknown 05/14/2023 5:38 AM EST 05/14/2023 6:00 AM EST Italo Keenan DO LAB BLOOD [facility]ELLE [facility] Organization Address City/State/ZIP Co de Phone Number [facility] [address] [place] [address] * (ABNORMAL) CBC (05/14/2023 5:38 AM EST) WBC 16.80(H) 4.00 - 10.80 K/uL 05/14/2023 6:12 AM EST [facility] RBC 3.48 3.85 - 5.15 M/uL 05/14/2023 6:12 AM EST [facility] HGB 10.8(L) 12.0 - 15.3 g/dL 05/14/2023 6:12 AM EST [facility] HCT 32.4(L) 36.0 - 45.2 % 05/14/2023 6:12 AM EST [facility] MCV 93.1 81.5 - 97.5 fL 05/14/2023 6:12 AM EST [facility] MCH 31.0 27.0 - 34.0 pg 05/14/2023 6:12 AM EST [facility] MCHC 33.3 32.0 - 36.0 g/dL 05/14/2023 6:12 AM EST [facility] RDW 14.1 11.5 - 15.5 % 05/14/2023 6:12 AM EST [facility] PLT 285 140 - 400 K/uL 05/14/2023 6:12 AM EST [facility] MPV 9.4 6.6 - 11.1 fL 05/14/2023 6:12 AM EST [facility] nRBCs 0 <=0 /100 WBCs 05/14/2023 6:12 AM EST [facility] Blood Venous blood specimen / Unknown Venipuncture / Unknown 05/14/2023 5:38 AM EST 05/14/2023 6:00 AM EST Italo Keenan DO LAB BLOOD ORDShivani LEAHY [facility] [address] [place] [address] * PHOSPHORUS (05/14/2023 5:38 AM EST) Phosphorus 2.5 2.5 - 4.8 mg/dL 05/14/2023 6:29 AM EST [facility] Blood Venous blood specimen / Unknown Venipuncture / Unknown 05/14/2023 5:38 AM EST 05/14/2023 6:00 AM EST Uli WALSH-C LAB BLOOD ORDERABLES Performing Organization Address [facility]/ZIP Co de Phone Number LABORATORY [facility] [address] [place] [address] * MAGNESIUM (05/14/2023 5:38 AM EST) Magnesium 1.7 1.5 - 2.6 mg/dL 05/14/2023 6:29 AM EST [facility] Blood Venous blood specimen / Unknown Venipuncture / Unknown 05/14/2023 5:38 AM EST 05/14/2023 6:00 AM EST Uli WALSH-C LAB BLOOD ORDERABLES LABORATORY [facility] [address] [place] [address] * (ABNORMAL) BASIC METABOLIC PANEL (05/14/2023 5:38 AM EST) BUN 14 6 - 20 mg/dL 05/14/2023 6:29 AM EST LABORATORY [facility] Creatinine 0.9 0.5 - 1.0 mg/dL 05/14/2023 6:29 AM EST LABORATORY [facility] Estimated Glomerular Filtration Rate 62 >=60 mL/min 05/14/2023 6:29 AM EST LABORATORY [facility] Comment:eGFR is calculated b ased on the CKD-EPI 2020 equation Sodium 136 135 - 146 mmol/L 05/14/2023 6:29 AM EST LAB[facility]ATORY [facility] Potassium 3.8 3.5 - 5.1 mmol/L 05/14/2023 6:29 AM EST LAB[facility]ATORY [facility] Chloride 103 98 - 107 mmol/L 05/14/2023 6:29 AM EST LAB[facility]ATORY [facility] CO2 23 22 - 32 mmol/L 05/14/2023 6:29 AM EST LAB[facility]ATORY [facility] Anion Gap 10 7 - 15 mmol/L 05/14/2023 6:29 AM EST LAB[facility]ATORY [facility] Glucose 109 70 - 120 mg/dL 05/14/2023 6:29 AM EST LAB[facility]ATORY [facility] Calcium 7.9(L) 8.4 - 10.2 mg/dL 05/14/2023 6:29 AM EST LABORATORY [facility] Blood Venous blood specimen / Unknown Venipuncture / Unknown 05/14/2023 5:38 AM EST 05/14/2023 6:00 AM EST Uli Cortes PA-C LAB BLOOD ORDERABLES LABORATORY [facility] [address] [place] [address] * (ABNORMAL) DIFFERENTIAL, AUTOMATED (05/13/2023 4:09 AM EST) WBC 18.59(H) 4.00 - 10.80 K/uL 05/13/2023 4:32 AM EST LABORATORY [facility] Neutrophils % 88.6(H) 40.0 - 75.0 % 05/13/2023 4:32 AM EST LAB[facility]ATORY [facility] Lymphocytes % 3.7(L) 18.0 - 42.0 % 05/13/2023 4:32 AM EST LAB[facility]ATORY [facility] Monocytes % 3.9 1.0 - 11.0 % 05/13/2023 4:32 AM EST LAB[facility]ATORY [facility] Eosinophils % 2.5 0.0 - 6.0 % 05/13/2023 4:32 AM EST LAB[facility]ATORY [facility] Basophils % 0.5 0.0 - 2.0 % 05/13/2023 4:32 AM EST LAB[facility]ATORY [facility] Immature Granulocytes % 0.8 0.0 - 2.0 % 05/13/2023 4:32 AM EST LABORATORY [facility] Absolute Neutrophils 16.47(H) 1.80 - 7.70 K/uL 05/13/2023 4:32 AM EST LABORATORY [facility] Absolute Lymphocytes 0.69(L) 1.00 - 4.80 K/ul 05/13/2023 4:32 AM EST LABORATORY [facility] Absolute Monocytes 0.72 0.00 - 1.10 K/uL 05/13/2023 4:32 AM EST LABORATORY [facility] Absolute Eosinophils 0.47 0.00 - 0.70 K/uL 05/13/2023 4:32 AM EST LAB[facility]ATORY [facility] Absolute Basophils 0.10 0.00 - 0.20 K/uL 05/13/2023 4:32 AM EST LAB[facility]ATORY [facility] Absolute Immature Granulocytes 0.14 0.00 - 0.20 K/uL 05/13/2023 4:32 AM EST LAB[facility]ATORY [facility] Blood Venous blood specimen / Unknown Venipuncture / Unknown 05/13/2023 4:09 AM EST 05/13/2023 4:21 AM EST Italo Keenan DO LAB BLOOD DANYELLE LEAHY LABORATORY [facility] [address] [place] [address] * (ABNORMAL) CBC (05/13/2023 4:09 AM EST) WBC 18.59(H) 4.00 - 10.80 K/uL 05/13/2023 4:32 AM EST LAB[facility]ATORY [facility] RBC 3.43 3.85 - 5.15 M/uL 05/13/2023 4:32 AM EST LAB[facility]ATORY [facility] HGB 10.3(L) 12.0 - 15.3 g/dL 05/13/2023 4:32 AM EST LAB[facility]ATORY [facility] HCT 33.0(L) 36.0 - 45.2 % 05/13/2023 4:32 AM EST LAB[facility]ATORY [facility] MCV 96.2 81.5 - 97.5 fL 05/13/2023 4:32 AM EST LAB[facility]ATORY [facility] MCH 30.0 27.0 - 34.0 pg 05/13/2023 4:32 AM EST LAB[facility]ATORY [facility] MCHC 31.2 32.0 - 36.0 g/dL 05/13/2023 4:32 AM EST LAB[facility]ATORY [facility] RDW 14.1 11.5 - 15.5 % 05/13/2023 4:32 AM EST LABORATORY [facility] PLT 313 140 - 400 K/uL 05/13/2023 4:32 AM EST LAB[facility]ATORY [facility] MPV 9.4 6.6 - 11.1 fL 05/13/2023 4:32 AM EST LABORATORY [facility] nRBCs 0 <=0 /100 WBCs 05/13/2023 4:32 AM EST LAB[facility]ATORY [facility] Blood Venous blood specimen / Unknown Venipuncture / Unknown 05/13/2023 4:09 AM EST 05/13/2023 4:21 AM EST Italo Keenan DO LAB BLOOD ORDE ARMOND LABORATORY [facility] [address] [place] [address] * PHOSPHORUS (05/13/2023 4:09 AM EST) Phosphorus 3.1 2.5 - 4.8 mg/dL 05/13/2023 4:50 AM EST LAB[facility]ATORY [facility] Blood Venous blood specimen / Unknown Venipuncture / Unknown 05/13/2023 4:09 AM EST 05/13/2023 4:21 AM EST Uli Cortes PA-C LAB BLOOD ORDERABLES LAB[facility]ATORY [facility] [address] [place] [address] * MAGNESIUM (05/13/2023 4:09 AM EST) Magnesium 1.9 1.5 - 2.6 mg/dL 05/13/2023 4:50 AM EST LABORATORY [facility] Blood Venous blood specimen / Unknown Venipuncture / Unknown 05/13/2023 4:09 AM EST 05/13/2023 4:21 AM EST Uli Cortes PA-C LAB BLOOD ORDERABLES LABORATORY [facility] [address] [place] [address] * (ABNORMAL) BASIC METABOLIC PANEL (05/13/2023 4:09 AM EST) BUN 17 6 - 20 mg/dL 05/13/2023 4:50 AM EST LAB[facility]ATORY [facility] Creatinine 0.9 0.5 - 1.0 mg/dL 05/13/2023 4:50 AM EST LABORATORY [facility] Estimated Glomerular Filtration Rate 66 >=60 mL/min 05/13/2023 4:50 AM EST LABORATORY [facility] Comment:eGFR is calculated b ased on the CKD-EPI 2020 equation Sodium 136 135 - 146 mmol/L 05/13/2023 4:50 AM EST LAB[facility]ATORY [facility] Potassium 3.6 3.5 - 5.1 mmol/L 05/13/2023 4:50 AM EST LAB[facility]ATORY [facility] Chloride 103 98 - 107 mmol/L 05/13/2023 4:50 AM EST LAB[facility]ATORY [facility] CO2 23 22 - 32 mmol/L 05/13/2023 4:50 AM EST LAB[facility]ATORY [facility] Anion Gap 10 7 - 15 mmol/L 05/13/2023 4:50 AM EST LAB[facility]ATORY [facility] Glucose 109 70 - 120 mg/dL 05/13/2023 4:50 AM EST LAB[facility]ATORY [facility] Calcium 8.0(L) 8.4 - 10.2 mg/dL 05/13/2023 4:50 AM EST LAB[facility]ATORY [facility] Blood Venous blood specimen / Unknown Venipuncture / Unknown 05/13/2023 4:09 AM EST 05/13/2023 4:21 AM EST Uli Cortes PA-C LAB BLOOD ORDERABLES Performing Organization Address [facility] de Phone Number LABORATORY [place] [address] [place] [address] * (ABNORMAL) CLOSTRIDIUM DIFFICILE, PCR (05/12/2023 4:53 PM EST) Pathologist [facility] Stool Consistency Liquid 05/12/2023 6:37 PM EST LABORATORY [facility] Clostridium difficile Result Positive for C. difficile toxin B gene DNA by PCR (Amplified Probe). Presumptive negative for C. difficile [id number] strain by PCR (Amplified Probe).(A) Negative 05/12/2023 6:37 PM EST LABORATORY [facility] Stool Stool specimen / Unknown Non-blood Collection / Unknown 05/12/2023 4:53 PM EST 05/12/2023 5:10 PM EST Uli Cortes PA-C LAB MICRO - GENERAL ORDERABLES Performing Organization Address [facility] Phone Number LABORATORY [facility] [address] [place] [address] * ECHO, COMPLETE (2D), TRANS-THORACIC (05/12/2023 11:46 AM EST) Pathologist [facility] LEFT VENTRICULAR EJECTION FRACTION 60 % [facility] 05/12/2023 10:0 2 AM EST Uli Cortes PA-C ECHOCARDIOLOGY Performing Organization Address [facility] de Phone Number [facility] * (ABNORMAL) DIFFERENTIAL, AUTOMATED (05/12/2023 4:48 AM EST) Pathologist [facility] WBC 17.02(H) 4.00 - 10.80 K/uL 05/12/2023 5:11 AM EST LAB[facility]ATORY [facility] Neutrophils % 88.5(H) 40.0 - 75.0 % 05/12/2023 5:11 AM EST LAB[facility]ATORY [facility] Lymphocytes % 3.2(L) 18.0 - 42.0 % 05/12/2023 5:11 AM EST LAB[facility]ATORY [facility] Monocytes % 3.9 1.0 - 11.0 % 05/12/2023 5:11 AM EST LAB[facility]ATORY [facility] Eosinophils % 2.9 0.0 - 6.0 % 05/12/2023 5:11 AM EST LAB[facility]ATORY [facility] Basophils % 0.4 0.0 - 2.0 % 05/12/2023 5:11 AM EST LAB[facility]ATORY [facility] Immature Granulocytes % 1.1 0.0 - 2.0 % 05/12/2023 5:11 AM EST LAB[facility]ATORY [facility] Absolute Neutrophils 15.07(H) 1.80 - 7.70 K/uL 05/12/2023 5:11 AM EST LAB[facility]ATORY [facility] Absolute Lymphocytes 0.55(L) 1.00 - 4.80 K/ul 05/12/2023 5:11 AM EST LAB[facility]ATORY [facility] Absolute Monocytes 0.67 0.00 - 1.10 K/uL 05/12/2023 5:11 AM EST LAB[facility]ATORY [facility] Absolute Eosinophils 0.49 0.00 - 0.70 K/uL 05/12/2023 5:11 AM EST LAB[facility]ATORY [facility] Absolute Basophils 0.06 0.00 - 0.20 K/uL 05/12/2023 5:11 AM EST LAB[facility]ATORY [facility] Absolute Immature Granulocytes 0.18 0.00 - 0.20 K/uL 05/12/2023 5:11 AM EST LAB[facility]ATORY [facility] Blood Venous blood specimen / Unknown Venipuncture / Unknown 05/12/2023 4:48 AM EST 05/12/2023 4:57 AM EST Italo Keenan DO LAB BLOOD DANYELLE LEAHY [facility] Organization Address City/State/[facility] Co de Phone Number LABORATORY [facility] [address] [place] [address] * (ABNORMAL) CBC (05/12/2023 4:48 AM EST) Pathologist [facility] WBC 17.02(H) 4.00 - 10.80 K/uL 05/12/2023 5:11 AM EST LABORATORY [facility] RBC 3.31 3.85 - 5.15 M/uL 05/12/2023 5:11 AM EST LAB[facility]ATORY [facility] HGB 9.8(L) 12.0 - 15.3 g/dL 05/12/2023 5:11 AM EST LAB[facility]ATORY [facility] HCT 31.2(L) 36.0 - 45.2 % 05/12/2023 5:11 AM EST LAB[facility]ATORY [facility] MCV 94.3 81.5 - 97.5 fL 05/12/2023 5:11 AM EST LAB[facility]ATORY [facility] MCH 29.6 27.0 - 34.0 pg 05/12/2023 5:11 AM EST LAB[facility]ATORY [facility] MCHC 31.4 32.0 - 36.0 g/dL 05/12/2023 5:11 AM EST LAB[facility]ATORY [facility] RDW 14.0 11.5 - 15.5 % 05/12/2023 5:11 AM EST LABORATORY [facility] PLT 295 140 - 400 K/uL 05/12/2023 5:11 AM EST LAB[facility]ATORY [facility] MPV 9.1 6.6 - 11.1 fL 05/12/2023 5:11 AM EST LAB[facility]ATORY [facility] nRBCs 0 <=0 /100 WBCs 05/12/2023 5:11 AM EST LAB[facility]ATORY [facility] Blood Venous blood specimen / Unknown Venipuncture / Unknown 05/12/2023 4:48 AM EST 05/12/2023 4:57 AM EST Italo Keenan DO LAB BLOOD ORDE RABLES LABORATORY [facility] [address] [place] [address] * (ABNORMAL) PHOSPHORUS (05/12/2023 4:48 AM EST) Phosphorus 1.7(L) 2.5 - 4.8 mg/dL 05/12/2023 5:30 AM EST LABORATORY [facility] Blood Venous blood specimen / Unknown Venipuncture / Unknown 05/12/2023 4:48 AM EST 05/12/2023 4:57 AM EST Uil Cortes PA-C LAB BLOOD ORDERABLES LABORATORY [facility] [address] [place] [address] * MAGNESIUM (05/12/2023 4:48 AM EST) Magnesium 1.9 1.5 - 2.6 mg/dL 05/12/2023 5:30 AM EST LAB[facility]ATORY [facility] Blood Venous blood specimen / Unknown Venipuncture / Unknown 05/12/2023 4:48 AM EST 05/12/2023 4:57 AM EST Uli Cortes PA-C LAB BLOOD ORDERABLES LAB[facility]ATORY [facility] [address] [place] [address] * (ABNORMAL) BASIC METABOLIC PANEL (05/12/2023 4:48 AM EST) BUN 18 6 - 20 mg/dL 05/12/2023 5:30 AM EST LAB[facility]ATORY [facility] Creatinine 0.9 0.5 - 1.0 mg/dL 05/12/2023 5:30 AM EST LAB[facility]ATORY [facility] Estimated Glomerular Filtration Rate 63 >=60 mL/min 05/12/2023 5:30 AM EST LAB[facility]ATORY [facility] Comment:eGFR is calculated b ased on the CKD-EPI 2020 equation Sodium 137 135 - 146 mmol/L 05/12/2023 5:30 AM EST LAB[facility]ATORY [facility] Potassium 3.6 3.5 - 5.1 mmol/L 05/12/2023 5:30 AM EST LAB[facility]ATORY [facility] Chloride 105 98 - 107 mmol/L 05/12/2023 5:30 AM EST LAB[facility]ORY [facility] CO2 23 22 - 32 mmol/L 05/12/2023 5:30 AM EST LAB[facility] Anion Gap 9 7 - 15 mmol/L 05/12/2023 5:30 AM EST LAB[facility]ATORY [facility] Glucose 114 70 - 120 mg/dL 05/12/2023 5:30 AM EST LAB[facility]ATORY [facility] Calcium 8.2(L) 8.4 - 10.2 mg/dL 05/12/2023 5:30 AM EST LAB[facility]ORY [facility] Blood Venous blood specimen / Unknown Venipuncture / Unknown 05/12/2023 4:48 AM EST 05/12/2023 4:57 AM EST Uli Cortes PA-C LAB BLOOD ORDERABLES LABORATORY [facility] [address] [place] [address] * GASTROINTESTINAL PATHOGEN PANEL CULTURE (05/11/2023 7:42 PM EST) Culture Growth No Aeromonas species or Plesiomonas species isolated. 05/14/2023 9:08 AM EST LABORATORY [facility] Stool Stool specimen / Unknown Non-blood Collection / Unknown 05/11/2023 7:42 PM EST 05/11/2023 8:17 PM EST Uli Cortes PA-C LAB MICRO - GENERAL ORDERABLES LABORATORY [facility] [address] [place] [address] * GASTROINTESTINAL PATHOGEN PANEL PCR (05/11/2023 7:42 PM EST) Campylobacter group by PCR Negative Negative 05/12/2023 10:18 AM EST LAB[facility]ATORY [facility] Salmonella species by PCR Negative Negative 05/12/2023 10:18 AM EST LAB[facility]ATORY [facility] Shigella species by PCR Negative Negative 05/12/2023 10:18 AM EST LAB[facility]ATORY [facility] Vibrio group by PCR Negative Negative 05/12/2023 10:18 AM EST LAB[facility]ATORY [facility] Yersinia enterocolitica by PCR Negative Negative 05/12/2023 10:18 AM EST LAB[facility]ATORY [facility] Shiga Toxin 1 Gene by PCR Negative Negative 05/12/2023 10:18 AM EST LAB[facility]ATORY [facility] Shiga Toxin 2 Gene by PCR Negative Negative 05/12/2023 10:18 AM EST LAB[facility]ATORY [facility] Norovirus by PCR Negative Negative 05/12/19 10:18 AM EST LAB[facility]ATORY [facility] Rotavirus by PCR Negative Negative 05/12/19 10:18 AM EST LAB[facility]ATORY [facility] Stool Stool specimen / Unknown Non-blood Collection / Unknown 05/11/2023 7:42 PM EST 05/11/2023 8:17 PM EST Uli WALSH-C LAB MICRO - GENERAL ORDERABLES LABORATORY [facility] [address] [place] [address] * EKG (05/11/2023 6:10 PM EST) 05/11/2023 6:10 PM EST Narrative Procedure Note Alberto Hahn MD - 05/11/2023 6:10 PM EST REASON FOR STUDY: ? Endocarditis evaluation;? Endocarditis ev CONCLUSIONS: Atrial-sensed ventricular-paced rhythm Abnormal ECG When compared with ECG of 12-SEP-2022 09:32, Electronic pacemaker detected has replaced Sinus rhythm Vent. rate has increased BY 24 BPM Ventricular Rate: 69 Atrial Rate: 69 MN Interval: 184 QRS Duration: 110 QT/QTc: 414/443 ms P-R-T [place]: 21 : -5 : 17 degrees Uli Cortes PA-C EKG [facility] * CULTURE, URINE, QUANTITATIVE (05/11/2023 12:42 PM EST) Pathologist [facility] Culture Growth No significant growth 05/12/2023 10:55 AM EST LABORATORY [facility] Urine Urine specimen obtained by clean catch procedure / Unknown Non-blood Collection / Unknown 05/11/2023 12:42 PM EST 05/11/2023 1:07 PM EST Leidy Webb DO LAB MICRO - GENERAL ORDERABLES LABORATORY [facility] [address] [place] [address] * URINE PROTEIN ELECTROPHORESIS REFLEX PROFILE, RANDOM URINE (05/11/2023 12:42 PM EST) Normal/Abnormal Normal Normal 4:32 PM EST LABORATORY [facility] Protein, Random Urine 32 mg/dL 05/13/2023 4:32 PM EST LAB[facility]ATORY [facility] Electrophoresis Intepretation Glomerular pattern, no paraprotein detected. 05/13/2023 4:32 PM EST LAB[facility]ATORY [facility] Albumin, Urine 6.9 mg/dL 05/13/2023 4:32 PM EST LAB[facility]ATORY [facility] Globulins, Urine 25.1 mg/dL 05/13/19 4:32 PM EST LABORATORY C Urine Urine specimen obtained by clean catch procedure / Unknown Non-blood Collection / Unknown 05/11/2023 12:42 PM EST 05/11/2023 1:07 PM EST Italo Keenan LAB URINE DANYELLE LEAHY Performing Organization Address [facility] de Phone Number LABORATORY [facility] [address] [place] [address] * (ABNORMAL) PROTEIN/ CREATININE RATIO, URINE (05/11/2023 12:42 PM EST) Protein/ Creatinine Ratio, Urine 356(H) <150 mg/g 05/11/2023 1:48 PM EST LAB[facility]ATORY [facility] Protein, Random Urine 32 mg/dL 05/11/2023 1:48 PM EST LABORATORY GM Creatinine, Random Urine 90 mg/dL 05/11/2023 1:48 PM EST LABORATORY [facility] Urine Urine specimen obtained by clean catch procedure / Unknown Non-blood Collection / Unknown 05/11/2023 12:42 PM EST 05/11/2023 1:07 PM EST Narrative LABORATORY [facility] - 05/11/2023 1:48 PM EST Normal: <150 mg/g creatinine High: 150-500 mg/g creatinine Very High: >500 mg/g creatinine Nephrotic: >3000 mg/g creatinine Italo Keenan LAB URINE DANYELLE LEAHY Performing Organization Address [facility] de Phone Number LABORATORY [facility] [address] [place] [address] * (ABNORMAL) URINALYSIS, REFLEX TO CULTURE (05/11/2023 12:42 PM EST) Color, Urine Light Yellow Colorless, Light Yellow, Yellow, Dark Yellow 05/11/2023 1:38 PM EST LABORATORY [facility] Clarity, Urine Clear Clear 05/11/2023 1:38 PM EST LAB[facility]AT[facility] Glucose, Urine Negative Negative mg/dL 05/11/2023 1:38 PM EST LAB[facility] Bilirubin, Urine Negative Negative 05/11/2023 1:38 PM EST LAB[facility]ATORY [facility] Ketone, Urine Trace(A) Negative mg/dL 05/11/2023 1:38 PM EST LABORATORY [facility] Specific [place], Urine 1.043(H) 1.003 - 1.030 05/11/2023 1:38 PM EST LABORATORY [facility] Blood, Urine Trace(A) Negative 05/11/2023 1:38 PM EST LABORATORY [facility] pH, Urine 5.5 5.0 - 7.5 Units 05/11/2023 1:38 PM EST LABORATORY C Protein, Urine 30(A) Negative mg/dL 05/11/2023 1:38 PM EST LABORATORY [facility] Urobilinogen, Urine Normal Normal mg/dL 05/11/2023 1:38 PM EST LABORATORY C Nitrite, Urine Negative Negative 05/11/2023 1:38 PM EST LABORATORY [facility] Esterase, Urine Moderate(A) Negative 05/11/2023 1:38 PM EST LABORATORY [facility] RBC, Urine 6-9(A) 0 - 2 /HPF 05/11/2023 1:38 PM EST LABORATORY C WBC, Urine 30-49(A) 0 - 2 /HPF 05/11/2023 1:38 PM EST LABORATORY C Bacteria, Urine 101-150(A) 0 - 25 /HPF 05/11/2023 1:38 PM EST LABORATORY C Hyaline, Cast, Urine 1-4(A) None /LPF 05/11/2023 1:38 PM EST LABORATORY [facility] WBC Clumps, Urine Present(A) None /HPF 05/11/2023 1:38 PM EST LABORATORY [facility] Culture, Urine 05/11/2023 1:38 PM EST LABORATORY [facility] Comment:Quantitative urine c ulture to be performed Urine Urine specimen obtained by clean catch procedure / Unknown Non-blood Collection / Unknown 05/11/2023 12:42 PM EST 05/11/2023 1:07 PM EST Leidy Webb DO LAB URINE ORDERABLES LABORATORY [facility] [address] [place] [address] * URINALYSIS, REFLEX TO CULTURE (CUP ONLY) (05/11/2023 12:42 PM EST) Urinalysis, Reflex to Culture Specimen Specimen collected and received 05/11/2023 3:01 PM EST LABORATORY [facility] Urine Urine specimen obtained by clean catch procedure / Unknown Non-blood Collection / Unknown 05/11/2023 12:42 PM EST 05/11/2023 1:07 PM EST Leidyhector Webb LAB URINE ORDERABLES Performing Organization Address [facility] de Phone Number LABORATORY [address] [address] * (ABNORMAL) PROCALCITONIN (05/11/2023 5:41 AM EST) Procalcitonin 0.15(H) <0.10 ng/mL 05/11/2023 11:59 AM EST LABORATORY [facility] Blood Venous blood specimen / Unknown Venipuncture / Unknown 05/11/2023 5:41 AM EST 05/11/2023 6:16 AM EST Narrative LABORATORY [facility] - 05/11/2023 11:59 AM EST Less than 0.5 ng/mL: Low risk for progression to sepsis. Review patients condition for localized infections. 0.5 to 2.0 ng/mL: Intermediate risk for progresion to sepsis. Review underlying conditions. Recommend repeat PCT after 6 hours has elapsed. Greater than 2.0 ng/mL: high risk for progression to sepsis unless other causes are known. Uli Cortes PA-C LAB BLOOD ORDERABLES Performing Organization Address [facility] de Phone Number LABORATORY [address] [address] * (ABNORMAL) HAPTOGLOBIN (05/11/2023 5:41 AM EST) Haptoglobin 374(H) 30 - 200 mg/dL 05/11/2023 11:59 AM EST LABORATORY [facility] Blood Venous blood specimen / Unknown Venipuncture / Unknown 05/11/2023 5:41 AM EST 05/11/2023 6:16 AM EST Uli Cortes PA-C LAB BLOOD ORDERABLES LAB[facility]ATORY [facility] [address] [place] [address] * (ABNORMAL) DIFFERENTIAL, AUTOMATED (05/11/2023 5:41 AM EST) WBC 22.41(H) 4.00 - 10.80 K/uL 05/11/2023 6:36 AM EST LABORATORY [facility] Neutrophils % 90.2(H) 40.0 - 75.0 % 05/11/2023 6:36 AM EST LAB[facility]ATORY [facility] Lymphocytes % 3.3(L) 18.0 - 42.0 % 05/11/2023 6:36 AM EST LAB[facility]ATORY [facility] Monocytes % 3.7 1.0 - 11.0 % 05/11/2023 6:36 AM EST LAB[facility]ATORY [facility] Eosinophils % 1.4 0.0 - 6.0 % 05/11/2023 6:36 AM EST LAB[facility]ATORY [facility] Basophils % 0.4 0.0 - 2.0 % 05/11/2023 6:36 AM EST LAB[facility]ATORY [facility] Immature Granulocytes % 1.0 0.0 - 2.0 % 05/11/2023 6:36 AM EST LAB[facility]ATORY [facility] Absolute Neutrophils 20.22(H) 1.80 - 7.70 K/uL 05/11/2023 6:36 AM EST LAB[facility]ATORY [facility] Absolute Lymphocytes 0.73(L) 1.00 - 4.80 K/ul 05/11/2023 6:36 AM EST LAB[facility]ATORY [facility] Absolute Monocytes 0.83 0.00 - 1.10 K/uL 05/11/2023 6:36 AM EST LAB[facility]ATORY [facility] Absolute Eosinophils 0.32 0.00 - 0.70 K/uL 05/11/2023 6:36 AM EST LAB[facility]ATORY [facility] Absolute Basophils 0.09 0.00 - 0.20 K/uL 05/11/2023 6:36 AM EST LAB[facility]ATORY [facility] Absolute Immature Granulocytes 0.22(H) 0.00 - 0.20 K/uL 05/11/2023 6:36 AM EST LAB[facility]ATORY [facility] Blood Venous blood specimen / Unknown Venipuncture / Unknown 05/11/2023 5:41 AM EST 05/11/2023 6:16 AM EST Italo Keenan DO LAB BLOOD ORDShivani LEAHY Performing Organization Address City/[facility]/ZIP Co de Phone Number LABORATORY [facility] [address] [place] [address] * (ABNORMAL) CBC (05/11/2023 5:41 AM EST) WBC 22.41(H) 4.00 - 10.80 K/uL 05/11/2023 6:36 AM EST LABORATORY [facility] RBC 3.48 3.85 - 5.15 M/uL 05/11/2023 6:36 AM EST LAB[facility]ATORY [facility] HGB 10.5(L) 12.0 - 15.3 g/dL 05/11/2023 6:36 AM EST LAB[facility]ATORY [facility] HCT 33.1(L) 36.0 - 45.2 % 05/11/2023 6:36 AM EST LAB[facility]ATORY [facility] MCV 95.1 81.5 - 97.5 fL 05/11/2023 6:36 AM EST LAB[facility]ATORY [facility] MCH 30.2 27.0 - 34.0 pg 05/11/2023 6:36 AM EST LAB[facility]ATORY [facility] MCHC 31.7 32.0 - 36.0 g/dL 05/11/2023 6:36 AM EST LAB[facility]ATORY [facility] RDW 13.8 11.5 - 15.5 % 05/11/2023 6:36 AM EST LABORATORY [facility] PLT 314 140 - 400 K/uL 05/11/2023 6:36 AM EST LAB[facility]ATORY [facility] MPV 9.4 6.6 - 11.1 fL 05/11/2023 6:36 AM EST LAB[facility]ATORY [facility] nRBCs 0 <=0 /100 WBCs 05/11/2023 6:36 AM EST LAB[facility]ATORY [facility] Blood Venous blood specimen / Unknown Venipuncture / Unknown 05/11/2023 5:41 AM EST 05/11/2023 6:16 AM EST Italo Keenan DO LAB BLOOD DANYELLE LEAHY LABORATORY [facility] [address] [place] [address] * LACTATE (05/11/2023 5:41 AM EST) Lactate 1.6 0.4 - 2.0 mmol/L 05/11/2023 6:46 AM EST LABORATORY [facility] Blood Venous blood specimen / Unknown Venipuncture / Unknown 05/11/2023 5:41 AM EST 05/11/2023 6:16 AM EST Italo Keenan DO LAB BLOOD [facility] Organization Address City/State/[facility] Co de Phone Number [facility]AT[facility] [address] [place] [address] * (ABNORMAL) BASIC METABOLIC PANEL (05/11/2023 5:41 AM EST) BUN 18 6 - 20 mg/dL 05/11/2023 6:49 AM EST [facility] Creatinine 1.0 0.5 - 1.0 mg/dL 05/11/2023 6:49 AM EST [facility] Estimated Glomerular Filtration Rate 59(L) >=60 mL/min 05/11/2023 6:49 AM EST [facility] Comment:eGFR is calculated b ased on the CKD-EPI 2020 equation Sodium 138 135 - 146 mmol/L 05/11/2023 6:49 AM EST [facility] Potassium 3.5 3.5 - 5.1 mmol/L 05/11/2023 6:49 AM EST [facility] Chloride 101 98 - 107 mmol/L 05/11/2023 6:49 AM EST [facility] CO2 22 22 - 32 mmol/L 05/11/2023 6:49 AM EST [facility] Anion Gap 15 7 - 15 mmol/L 05/11/2023 6:49 AM EST [facility] Glucose 96 70 - 120 mg/dL 05/11/2023 6:49 AM EST [facility] Calcium 7.8(L) 8.4 - 10.2 mg/dL 05/11/2023 6:49 AM EST [facility] Blood Venous blood specimen / Unknown Venipuncture / Unknown 05/11/2023 5:41 AM EST 05/11/2023 6:16 AM EST Italo Keenan DO LAB BLOOD [facility] Performing Organization Address [facility] de Phone Number [facility]ATORY [facility] [address] [place] [address] * (ABNORMAL) SERUM FREE LIGHT CHAINS (05/11/2023 5:41 AM EST) [place] Free Light Chains, Serum 46.00(H) 3.30 - 19.40 mg/L 05/13/2023 10:44 AM EST LABORAT[facility] Lambda Free Light Chains, Serum 49.88(H) 5.71 - 26.30 mg/L 05/13/2023 10:44 AM EST LAB[facility] [place] Lambda Free Light Chains Ratio 0.92 0.26 - 1.65 05/13/2023 10:44 AM EST LAB[facility] Blood Venous blood specimen / Unknown Venipuncture / Unknown 05/11/2023 5:41 AM EST 05/11/2023 6:16 AM EST Italo Keenan DO [facility] BLOOD [facility] Performing Organization Address [facility] Co de Phone Number [facility]ATORY [facility] [address] [place] [address] * (ABNORMAL) SERUM PROTEIN ELECTROPHORESIS REFLEX PROFILE (05/11/2023 5:41 AM EST) [facility] Normal/Abnormal Normal Normal 4:32 PM EST LAB[facility] Protein 5.0(L) 6.0 - 8.3 g/dL 05/13/2023 4:32 PM EST LAB[facility]AT[facility] Albumin 1.85(L) 3.30 - 4.40 g/dL 05/13/2023 4:32 PM EST LAB[facility] Alpha-1 Globulin 0.35(H) 0.10 - 0.30 g/dL 05/13/2023 4:32 PM EST LAB[facility] Alpha-2 Globulin 1.18(H) 0.60 - 1.00 g/dL 05/13/2023 4:32 PM EST LAB[facility] Beta-Globulin 0.72(L) 0.80 - 1.30 g/dL 05/13/2023 4:32 PM EST LAB[facility] Gamma-Globulin 0.89 0.70 - 1.70 g/dL 05/13/2023 4:32 PM EST LABORATORY GM Electrophoresis Interpretation No paraprotein detected. 05/13/2023 4:32 PM EST [facility] [facility] [place] Blood Venous blood specimen / Unknown Venipuncture / Unknown 05/11/2023 5:41 AM EST 05/11/2023 6:16 AM EST Italo Keenan DO LAB BLOOD DANYELLE LEAHY Performing Organization Address [facility] Co de Phone Number LABORATORY C [address] [place] [address] * (ABNORMAL) CRP (INFLAMMATORY MARKER) (05/10/2023 11:47 PM EST) Pathologist [facility] CRP (Inflammatory Marker) 178(H) <=5 mg/L 05/11/2023 4:15 AM EST LABORATORY [facility] Blood Venous blood specimen / Unknown Venipuncture / Unknown 05/10/2023 11:47 PM EST 05/10/2023 11:53 PM EST Italo Keenan DO LAB BLOOD ORDShivani LEAHY Performing Organization Address [facility] Phone Number LABORATORY [facility] [address] [place] [address] * (ABNORMAL) FERRITIN (05/10/2023 11:47 PM EST) Pathologist [facility] Ferritin 1,143(H) 13 - 150 ng/mL 05/11/2023 12:44 AM EST LABORATORY C Comment:Postmenopausal women have higher ferritin levels than pre-menopausal women. The above reference interval is based on pre-menopausal women. Blood Venous blood specimen / Unknown Venipuncture / Unknown 05/10/2023 11:47 PM EST 05/10/2023 11:53 PM EST Italo Keenan DO LAB BLOOD ORDShivani LEAHY Performing Organization Address [facility] de Phone Number LABORATORY [facility] [address] [place] [address] * (ABNORMAL) URIC ACID (05/10/2023 11:47 PM EST) Pathologist [facility] Uric Acid 6.2(H) 2.4 - 5.7 mg/dL 05/11/2023 12:21 AM EST LABORATORY [facility] Blood Venous blood specimen / Unknown Venipuncture / Unknown 05/10/2023 11:47 PM EST 05/10/2023 11:53 PM EST Italo Keenan DO LAB BLOOD DANYELLE LEAHY Performing Organization Address City/[facility] de Phone Number LABORATORY [facility] [address] [place] [address] * (ABNORMAL) LD (05/10/2023 11:47 PM EST) Pathologist [facility] LD 267(H) <=250 U/L 05/11/2023 12:21 AM EST LABORATORY [facility] Blood Venous blood specimen / Unknown Venipuncture / Unknown 05/10/2023 11:47 PM EST 05/10/2023 11:53 PM EST Italo Keenan DO LAB BLOOD DANYELLE LEAHY Performing Organization Address [facility] Phone Number LABORATORY [facility] [address] [place] [address] * (ABNORMAL) IRON SCREEN, INCLUDING TIBC (05/10/2023 11:47 PM EST) Pathologist [facility] Iron 17(L) 33 - 151 ug/dL 05/11/2023 12:21 AM EST LABORATORY [facility] Iron Binding Capacity 96(L) 250 - 425 ug/dL 05/11/2023 12:21 AM EST LABORATORY [facility] Transferrin Saturation Percent 18 15 - 55 % 05/11/2023 12:21 AM EST LABORATORY [facility] Blood Venous blood specimen / Unknown Venipuncture / Unknown 05/10/2023 11:47 PM EST 05/10/2023 11:53 PM EST Italo Keenan DO LAB BLOOD ORDShivani LEAHY Performing Organization Address City/[facility] de Phone Number LABORATORY [facility] [address] [place] [address] * SARS-COV-2 (COVID-19), NAAT (05/10/2023 9:46 PM EST) [facility] SARS-CoV-2 (COVID-19) Result Negative Negative 05/10/2023 11:58 PM EST LABORATORY [facility] Comment: 2019 Novel Coronavirus not detected. This express test was developed and its performance characteristics determined by [facility]. It has not been cleared or approved by the U.S. Food and Drug Administration (FDA). FDA does not require this test to go thru premarket FDA review. This test is used for clinical purposes. It should not be regarded as investigational or for research. This laboratory is certified under the Clinical Laboratory Improvement Amendments (CLIA) as qualified to perform high complexity clinical laboratory testing. This test is a nucleic acid amplification test (NAAT), a reverse transcriptase polymerase chain reaction (RT-PCR) test, or a Centers for Disease Control- acceptable equivalent. The test is performed in a high complexity Clinical Laboratory Improvement Amendments-(CLIA) certified laboratory. The test is acceptable for SARS-CoV-2 diagnosis, surveillance, and travel within the [place] and to most countries. Please check with local testing authorities about requirements before travel. The validation of bronchial specimens, tracheal aspirates, and sputum for this assay was developed and performance characteristics determined by [facility]. The validation of alternate specimen types has not been cleared or approved by the U.S. Food and Drug Administration (FDA). It has been determined that such clearance is not necessary. Upper Respiratory Mid-turbinate nasal swab / Unknown Non-blood Collection / Unknown 05/10/2023 9:46 PM EST 05/10/2023 10:46 PM EST Shu Field MD LAB MICRO - GENERAL ORDERABLES LABORATORY [facility] [address] [place] [address] * GLUCOSE METER, POINT OF CARE (05/10/2023 9:43 PM EST) [facility] Glucose Meter 109 70 - 120 mg/dL 05/10/2023 9:46 PM EST [facility] Blood Whole blood specimen / Unknown 05/10/2023 9:43 PM EST 05/10/2023 9:46 PM EST Leidy Jon DO LAB POINT OF CARE TE ST DOCKED DEVICE UNSOLICITED RESULTS [facility] [address] [place] [address] * CT CHEST/ABDOMEN/PELVIS WITH IV CONTRAST WITHOUT ORAL CONTRAST (05/10/2023 7:39 PM EST) Anatomical Region Laterality Modality Body, Chest, Abdomen, Pelvis, Cardio Computed Tomography 05/10/2023 8:51 PM EST Impressions 05/10/2023 11:41 PM EST IMPRESSION 1. No acute findings in the chest, abdomen, and pelvis. 2. Duodenojejunal junction fails to cross the midline and the small bowel is mostly in the right lower quadrant, could represent intestinal malrotation. However, cecum and rest of the large bowel loops as well as SMA and SMV are appropriately positioned. No findings to suggest small bowel obstruction. 3. Severe stenosis of celiac artery origin. 4. No findings to suggest malignancy or metastatic disease. 5. Additional incidental and chronic findings as above. I have personally reviewed this examination and agree with the resident/fellow physician's interpretation. Narrative 05/10/2023 11:[address] CHEST/ABDOMEN/PELVIS WITH IV CONTRAST WITHOUT ORAL CONTRAST - 05/10/2023 7:39 pm HISTORY weight loss, unclear etiology TECHNIQUE Axial images of the chest, abdomen, and pelvis were acquired. Coronal and sagittal reformats are provided. Oral Contrast: Not administered. IV Contrast: Administered. COMPARISON CT chest 03/18/[address] abdomen/pelvis 08/19/2020 FINDINGS LINES AND DEVICES: Left-sided cardiac pacemaker. TAVR. CHEST: LUNGS: Bibasilar dependent atelectatic changes. Bilateral sub 5 mm solid nodular densities, likely postinflammatory foci. PLEURA: No pleural effusions. LARGE AIRWAYS: Patent airways. HEART: Cardiomegaly. Status post TAVR. VESSELS: Severe coronary artery and aortic calcification THYROID: The visualized gland is unremarkable. MEDIASTINUM: No lymphadenopathy. CHEST WALL/SOFT TISSUES: Multi lead cardiac device in the left anterior chest wall. ABDOMEN/PELVIS: LIVER: Nodular contour. Few hypodense lesions, likely cysts. BILE DUCTS: Unremarkable. GALLBLADDER: Unremarkable. PANCREAS: Unremarkable. SPLEEN: Few tiny hypodensities, likely cysts. STOMACH: Small hiatal hernia. ADRENALS: Bilateral nodular thickening, nonspecific. KIDNEYS/URETERS: Unremarkable. BLADDER: Unremarkable. REPRODUCTIVE ORGANS: Hysterectomy. BOWEL: Duodenojejunal junction fails to cross midline and it lies below the level of the duodenal bulb. The small bowel is mostly in the right lower quadrant. The cecum and large bowel loops appears to be appropriately positioned. No findings to suggest small bowel obstruction. Colonic diverticulosis. Normal appendix. VESSELS: Heavy atherosclerosis of the aorta and its branches. 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 LYMPH NODES: No lymphadenopathy. PERITONEUM/RETROPERITONEUM: No free fluid or free air. ABDOMINAL WALL/SOFT TISSUES: Unremarkable. BONES: Severe degenerative osseous changes. Procedure Note Mason Villagran MD - 05/10/[address] CHEST/ABDOMEN/PELVIS WITH IV CONTRAST WITHOUT ORAL CONTRAST - :39 pm HISTORY weight loss, unclear etiology TECHNIQUE Axial images of the chest, abdomen, and pelvis were acquired. Coronal andsagittal reformats are provided. Oral Contrast: Not administered. IV Contrast: Administered. COMPARISON CT chest 03/18/[address] abdomen/pelvis 08/19/2020 FINDINGS LINES AND DEVICES: Left-sided cardiac pacemaker. TAVR. CHEST: LUNGS: Bibasilar dependent atelectatic changes. Bilateral sub 5 mm solidnodular densities, likely postinflammatory foci. PLEURA: No pleural effusions. LARGE AIRWAYS: Patent airways. HEART: Cardiomegaly. Status post TAVR. VESSELS: Severe coronary artery and aortic calcification THYROID: The visualized gland is unremarkable. MEDIASTINUM: No lymphadenopathy. CHEST WALL/SOFT TISSUES: Multi lead cardiac device in the left anteriorchest wall. ABDOMEN/PELVIS: LIVER: Nodular contour. Few hypodense lesions, likely cysts. BILE DUCTS: Unremarkable. GALLBLADDER: Unremarkable. PANCREAS: Unremarkable. SPLEEN: Few tiny hypodensities, likely cysts. STOMACH: Small hiatal hernia. ADRENALS: Bilateral nodular thickening, nonspecific. KIDNEYS/URETERS: Unremarkable. BLADDER: Unremarkable. REPRODUCTIVE ORGANS: Hysterectomy. BOWEL: Duodenojejunal junction fails to cross midline and it lies belowthe level of the duodenal bulb. The small bowel is mostly in the rightlower quadrant. The cecum and large bowel loops appears to beappropriately positioned. No findings to suggest small bowel obstruction.Colonic diverticulosis. Normal appendix. VESSELS: Heavy atherosclerosis of the aorta and its branches. Severestenosis of the celiac artery origin with no poststenotic dilatation. LYMPH NODES: No lymphadenopathy. PERITONEUM/RETROPERITONEUM: No free fluid or free air. ABDOMINAL WALL/SOFT TISSUES: Unremarkable. BONES: Severe degenerative osseous changes. IMPRESSION IMPRESSION 1. No acute findings in the chest, abdomen, and pelvis. 2. Duodenojejunal junction fails to cross the midline and the small bowelis mostly in the right lower quadrant, could represent intestinalmalrotation. However, cecum and rest of the large bowel loops as well asSMA and SMV are appropriately positioned. No findings to suggest smallbowel obstruction. 3. Severe stenosis of celiac artery origin. 4. No findings to suggest malignancy or metastatic disease. 5. Additional incidental and chronic findings as above. I have personally reviewed this examination and agree with the resident/fellow physician's interpretation. Shu Field MD RAD CT * TSH WITH FREE T4 IF INDICATED (05/10/2023 7:24 PM EST) [facility] TSH 3.41 0.27 - 4.20 uIU/mL 05/10/2023 10:28 PM EST LABORATORY [facility] Blood Venous blood specimen / Unknown Venipuncture / Unknown 05/10/2023 7:24 PM EST 05/10/2023 7:33 PM EST Leidy Webb DO LAB BLOOD ORDERABLES LABORATORY [facility] [address] [place] [address] * (ABNORMAL) TROPONIN T, HIGH SENSITIVITY (05/10/2023 7:24 PM EST) Pathologist [facility] Troponin T, High Sensitivity 27(H) <=14 ng/L 05/10/2023 7:52 PM EST LABORATORY [facility] Blood Venous blood specimen / Unknown Venipuncture / Unknown 05/10/2023 7:24 PM EST 05/10/2023 7:33 PM EST Fortino Nieves DO LAB BLOOD ORDERABL ES LABORATORY [facility] [address] [place] [address] * (ABNORMAL) PT INR (05/10/2023 7:24 PM EST) Prothrombin Time 15.5(H) 11.6 - 15.2 seconds 05/10/2023 7:58 PM EST LABORATORY [facility] INR 1.2 0.8 - 1.2 05/10/2023 7:58 PM EST LABORATORY [facility] Blood Venous blood specimen / Unknown Venipuncture / Unknown 05/10/2023 7:24 PM EST 05/10/2023 7:33 PM EST Narrative LABORATORY C - 05/10/2023 7:58 PM EST Warfarin Therapy INR: 2.0-3.0 conventional anticoagulation INR: 2.5-3.5 high intensity anticoagulation Fortino Nieves DO LAB BLOOD ORDERABL ES Performing Organization Address City/[facility]/ZIP Co de Phone Number LABORATORY [facility] [address] [place] [address] * CLINICIAN PERIPHERAL BLOOD SLIDE REQUEST (05/10/2023 6:04 PM EST) Clinician Slide Ready? Yes 05/11/2023 11:52 AM EST LABORATORY [facility] Location to pickup slide: [facility] [place] 05/11/2023 11:52 AM EST LABORATORY [facility] Blood Venous blood specimen / Unknown Venipuncture / Unknown 05/10/2023 6:04 PM EST 05/10/2023 6:10 PM EST Philly Mejia DO LAB BLOOD ORDERABLES LABORATORY [facility] [address] [place] [address] * (ABNORMAL) ERYTHROCYTE SEDIMENTATION RATE (ESR) (05/10/2023 6:04 PM EST) ESR 107(H) <30 mm/hour 05/11/2023 4:25 AM EST LABORATORY [facility] Blood Venous blood specimen / Unknown Venipuncture / Unknown 05/10/2023 6:04 PM EST 05/10/2023 6:10 PM EST Italo Keenan LAB BLOOD ORDShivani LEAHY LABORATORY [facility] [address] [place] [address] * (ABNORMAL) RETICULOCYTE PANEL (05/10/2023 6:04 PM EST) Reticulocyte Percent 2.54(H) 0.80 - 1.90 % 05/11/2023 12:08 AM EST LAB[facility]ATORY [facility] Absolute Reticulocyte 100.1 31.3 - 100.1 K/uL 05/11/2023 12:08 AM EST LAB[facility]ATORY [facility] Immature Reticuloctye Fraction 26.8(H) 2.5 - 20.6 % 05/11/2023 12:08 AM EST LAB[facility]ATORY [facility] Reticulocyte Hemoglobin 32.4 29.7 - 37.4 pg 05/11/2023 12:08 AM EST LAB[facility]ATORY [facility] Blood Venous blood specimen / Unknown Venipuncture / Unknown 05/10/2023 6:04 PM EST 05/10/2023 6:10 PM EST Italo Keenan LAB BLOOD ORDShivani LEAHY LAB[facility]ATORY [facility] [address] [place] [address] * LIPASE (05/10/2023 6:04 PM EST) Lipase 21 13 - 60 U/L 05/10/2023 7:41 PM EST LABORATORY [facility] Blood Venous blood specimen / Unknown Venipuncture / Unknown 05/10/2023 6:04 PM EST 05/10/2023 6:10 PM EST Fortino Nieves DO LAB BLOOD ORDERABL ES Performing Organization Address [facility]/ZIP Co de Phone Number LABORATORY [facility] [address] [place] [address] * PHOSPHORUS (05/10/2023 6:04 PM EST) Phosphorus 3.0 2.5 - 4.8 mg/dL 05/10/2023 7:41 PM EST LABORATORY [facility] Blood Venous blood specimen / Unknown Venipuncture / Unknown 05/10/2023 6:04 PM EST 05/10/2023 6:10 PM EST Shu Field MD LAB BLOOD ORDERABLES Performing Organization Address [facility] Co de Phone Number LABORATORY C [address] [place] [address] * MAGNESIUM (05/10/2023 6:04 PM EST) Magnesium 2.0 1.5 - 2.6 mg/dL 05/10/2023 7:41 PM EST LABORATORY [facility] Blood Venous blood specimen / Unknown Venipuncture / Unknown 05/10/2023 6:04 PM EST 05/10/2023 6:10 PM EST Shu Field MD LAB BLOOD ORDERABLES Performing Organization Address [facility] Co de Phone Number LABORATORY [facility] [address] [place] [address] * (ABNORMAL) DIFFERENTIAL, AUTOMATED (05/10/2023 6:04 PM EST) WBC 23.24(H) 4.00 - 10.80 K/uL 05/10/2023 6:21 PM EST LAB[facility]ATORY [facility] Neutrophils % 90.0(H) 40.0 - 75.0 % 05/10/2023 6:21 PM EST LAB[facility]ATORY [facility] Lymphocytes % 3.4(L) 18.0 - 42.0 % 05/10/2023 6:21 PM EST LAB[facility]ORY [facility] Monocytes % 3.7 1.0 - 11.0 % 05/10/2023 6:21 PM EST LAB[facility]ORY [facility] Eosinophils % 1.2 0.0 - 6.0 % 05/10/2023 6:21 PM EST LAB[facility]ORY [facility] Basophils % 0.5 0.0 - 2.0 % 05/10/2023 6:21 PM EST LAB[facility]ORY [facility] Immature Granulocytes % 1.2 0.0 - 2.0 % 05/10/2023 6:21 PM EST LAB[facility]ATORY [facility] Absolute Neutrophils 20.93(H) 1.80 - 7.70 K/uL 05/10/2023 6:21 PM EST LAB[facility]ATORY [facility] Absolute Lymphocytes 0.78(L) 1.00 - 4.80 K/ul 05/10/2023 6:21 PM EST LAB[facility]ATORY [facility] Absolute Monocytes 0.85 0.00 - 1.10 K/uL 05/10/2023 6:21 PM EST LAB[facility]ORY [facility] Absolute Eosinophils 0.29 0.00 - 0.70 K/uL 05/10/2023 6:21 PM EST LAB[facility] Absolute Basophils 0.11 0.00 - 0.20 K/uL 05/10/2023 6:21 PM EST LAB[facility]ORY [facility] Absolute Immature Granulocytes 0.28(H) 0.00 - 0.20 K/uL 05/10/2023 6:21 PM EST LABORATORY [facility] Blood Venous blood specimen / Unknown Venipuncture / Unknown 05/10/2023 6:04 PM EST 05/10/2023 6:10 PM EST Tarah Izaguirre DO LAB BLOOD ORDERABL ES Performing Organization Address City/State/[facility] Co de Phone Number LABORATORY [facility] [address] [place] [address] * (ABNORMAL) CBC (05/10/2023 6:04 PM EST) WBC 23.24(H) 4.00 - 10.80 K/uL 05/10/2023 6:21 PM EST LAB[facility]ATORY [facility] RBC 3.95 3.85 - 5.15 M/uL 05/10/2023 6:21 PM EST LAB[facility]ATORY [facility] HGB 11.9(L) 12.0 - 15.3 g/dL 05/10/2023 6:21 PM EST LAB[facility]ATORY [facility] HCT 36.8 36.0 - 45.2 % 05/10/2023 6:21 PM EST LAB[facility]ORY [facility] MCV 93.2 81.5 - 97.5 fL 05/10/2023 6:21 PM EST LAB[facility]ORY [facility] MCH 30.1 27.0 - 34.0 pg 05/10/2023 6:21 PM EST LAB[facility]ORY [facility] MCHC 32.3 32.0 - 36.0 g/dL 05/10/2023 6:21 PM EST LAB[facility]ATORY [facility] RDW 13.5 11.5 - 15.5 % 05/10/2023 6:21 PM EST LAB[facility]ATORY [facility] PLT 375 140 - 400 K/uL 05/10/2023 6:21 PM EST LAB[facility]ATORY [facility] MPV 9.2 6.6 - 11.1 fL 05/10/2023 6:21 PM EST LAB[facility]ORY [facility] nRBCs 0 <=0 /100 WBCs 05/10/2023 6:21 PM EST LAB[facility]ATORY [facility] Blood Venous blood specimen / Unknown Venipuncture / Unknown 05/10/2023 6:04 PM EST 05/10/2023 6:10 PM EST [facility]L ES LABORATORY [place] [address] [place] [address] * (ABNORMAL) TROPONIN T, HIGH SENSITIVITY (05/10/2023 6:04 PM EST) [facility] Troponin T, High Sensitivity 28(H) <=14 ng/L 05/10/2023 6:32 PM EST LABORATORY [facility] Blood Venous blood specimen / Unknown Venipuncture / Unknown 05/10/2023 6:04 PM EST 05/10/2023 6:10 PM EST Tarah Landon [facility] LAB BLOOD ORDERABL ES LABORATORY [facility] [address] [place] [address] * (ABNORMAL) COMPREHENSIVE METABOLIC PANEL (05/10/2023 6:04 PM EST) [facility] BUN 22(H) 6 - 20 mg/dL 05/10/2023 6:32 PM EST LAB[facility]ATORY [facility] Creatinine 1.1(H) 0.5 - 1.0 mg/dL 05/10/2023 6:32 PM EST LAB[facility]ATORY [facility] Estimated Glomerular Filtration Rate 50(L) >=60 mL/min 05/10/2023 6:32 PM EST LABORATORY [facility] Comment:eGFR is calculated b ased on the CKD-EPI 2020 equation Sodium 134(L) 135 - 146 mmol/L 05/10/2023 6:32 PM EST LAB[facility]ATORY [facility] Potassium 2.5(L) 3.5 - 5.1 mmol/L 05/10/2023 6:32 PM EST LAB[facility]ATORY [facility] Chloride 95(L) 98 - 107 mmol/L 05/10/2023 6:32 PM EST LAB[facility]ORY [facility] CO2 23 22 - 32 mmol/L 05/10/2023 6:32 PM EST LAB[facility] Anion Gap 16(H) 7 - 15 mmol/L 05/10/2023 6:32 PM EST LAB[facility]ORY [facility] Glucose 134(H) 70 - 120 mg/dL 05/10/2023 6:32 PM EST LAB[facility] Albumin 2.8(L) 3.8 - 5.0 g/dL 05/10/2023 6:32 PM EST LAB[facility] AST 84(H) 10 - 35 U/L 05/10/2023 6:32 PM EST LAB[facility]ORY [facility] Alkaline Phosphatase 78 35 - 130 U/L 05/10/2023 6:32 PM EST LAB[facility]ORY [facility] Bilirubin, Total 0.8 <=1.2 mg/dL 05/10/2023 6:32 PM EST LAB[facility] Calcium 8.5 8.4 - 10.2 mg/dL 05/10/2023 6:32 PM EST LAB[facility] Protein 6.5 6.0 - 8.3 g/dL 05/10/2023 6:32 PM EST [facility] ALT 74(H) 10 - 35 U/L 05/10/2023 6:32 PM EST LAB[facility]ATORY [facility] Blood Venous blood specimen / Unknown Venipuncture / Unknown 05/10/2023 6:04 PM EST 05/10/2023 6:10 PM EST Tarah Izaguirre DO LAB BLOOD ORDERABL ES LABORATORY [facility] [address] [place] [address] * XR CHEST 2 VIEWS (05/10/2023 6:02 PM EST) Anatomical Region Laterality Modality Chest Digital Radiogra phy 05/10/2023 6:18 PM EST Impressions 05/10/2023 6:19 PM EST IMPRESSION No active cardiopulmonary disease seen. I have personally reviewed this examination and agree with the resident/fellow physician's interpretation. Narrative 05/10/2023 6:19 PM EST EXAM XR CHEST 2 VIEWS - 05/10/2023 6:02 pm HISTORY chest pain TECHNIQUE Frontal and lateral radiographs of the chest were obtained. COMPARISON Chest radiograph 05/09/2023. FINDINGS FOREIGN BODIES, SUPPORT TUBES, LINES, DEVICES: Left-sided cardiac pacer. TAVR. LUNGS, PLEURA: No consolidation. No pneumothorax or effusion. CARDIOVASCULAR, MEDIASTINUM: The cardiomediastinal silhouette is within normal limits. OTHER: Degenerative osseous changes Procedure Note Roland Schuster MD - 05/10/2023 EXAM XR CHEST 2 VIEWS - 05/10/2023 6:02 pm HISTORY chest pain TECHNIQUE Frontal and lateral radiographs of the chest were obtained. COMPARISON Chest radiograph 05/09/2023. FINDINGS FOREIGN BODIES, SUPPORT TUBES, LINES, DEVICES: Left-sided cardiac pacer.TAVR. LUNGS, PLEURA: No consolidation. No pneumothorax or effusion. CARDIOVASCULAR, MEDIASTINUM: The cardiomediastinal silhouette is withinnormal limits. OTHER: Degenerative osseous changes IMPRESSION IMPRESSION No active cardiopulmonary disease seen. I have personally reviewed this examination and agree with the resident/fellow physician's interpretation. Tarah Izaguirre DO RADIOLOGY (RAD GEN ERAL) documented in this encounter Visit Diagnoses Diagnosis C. difficile colitis- Primary Intestinal infection due to clostridium difficile Weakness Other malaise and fatigue Chest pain Chest pain, unspecified Coronary artery disease Coronary atherosclerosis of unspecified type of vessel, [place] or graft Endocarditis Endocarditis, valve unspecified, unspecified cause C. difficile colitis Intestinal infection due to clostridium difficile Neutrophilia Other specified disease of white blood cells Atrial fibrillation (HCC) Atrial fibrillation 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) Cardiac pacemaker in situ Chronic kidney disease, stage 3a (HCC) Dyslipidemia, goal LDL below 130 Other and unspecified hyperlipidemia Gastroesophageal reflux disease without esophagitis Esophageal reflux Generalized weakness Other malaise and fatigue History of pulmonary embolism Personal history of pulmonary embolism HTN, goal below 140/90 Unspecified essential hypertension Hypothyroidism Unspecified hypothyroidism S/P TAVR (transcatheter aortic valve replacement) Heart valve replaced by other means Sick sinus syndrome (HCC) Sinoatrial node dysfunction Paroxysmal atrial fibrillation (HCC) Atrial fibrillation Failure to thrive in adult Adult failure to thrive 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 aspirin chew tab 81 mg 81 mg, Oral, Daily(AM), First dose on 05/11/23 at 0900, Until Discontinued Given 05/14/2023 8:06 AM EST 81 mg Given 05/13/2023 8:44 AM EST 81 mg Given 05/12/2023 9:12 AM EST 81 mg atorvaSTATin (Lipitor) tab 20 mg 20 mg, Oral, Daily(AM), First dose on 05/11/23 at 0900, Until Discontinued Given 05/14/2023 8:06 AM EST 20 mg Given 05/13/2023 8:44 AM EST 20 mg Given 05/12/2023 9:12 AM EST 20 mg dorzolamide-timolol (Cosopt Ocumeter Plus) ophthalmic solution 1 Drop 1 Drop, Both eyes, BID (.AM/PM), First dose on 05/11/23 at 0900, Until Discontinued Given 05/14/2023 8:06 AM EST 1 Drop Given 05/13/2023 8:18 PM EST 1 Drop Given 05/13/2023 8:44 AM EST 1 Drop Famotidine (Pepcid) tab 10 mg 10 mg, Oral, Daily(AM), First dose on Sat05/11/23 at 0900, Until Discontinued Given 05/14/2023 8:06 AM EST 10 mg Given 05/13/2023 8:44 AM EST 10 mg Given 05/12/2023 9:12 AM EST 10 mg Ioversol (Optiray 320) inj 100 mL 100 mL, Intravenous, ONCE, On Sat05/10/23 at 2015, For 1 dose, Radiology Medication Routing (Non-IR) Given 05/10/2023 8:15 PM EST 85 mL isolyte-S PH 7.4 1,000 mL with potassium chloride 40 mEq INFUSION Intravenous, at 75 mL/hr, CONTINUOUS, Starting on Sat05/10/23 at 2315, Until Sat05/11/23 at 1214 Rate Verify 05/11/2023 6:57 AM EST 75 mL/hr Restarted 05/11/2023 6:08 AM EST 75 mL/hr Restarted 05/11/2023 5:12 AM EST 75 mL/hr Latanoprost (Xalatan) 0.005 % ophthalmic solution 1 Drop 1 Drop, Both eyes, HS, First dose on Sat05/11/23 at 0130, Until Discontinued Given 05/13/2023 8:18 PM EST 1 Drop Given 05/12/2023 8:29 PM EST 1 Drop Given 05/11/2023 9:34 PM EST 1 Drop levothyroxine (Levoxyl) tab 100 mcg 100 mcg, Oral, [id number], First dose on Sat05/11/23 at 0630, Until Discontinued Given 05/14/2023 5:54 AM EST 100 mcg Given 05/13/2023 6:13 AM EST 100 mcg Given 05/12/2023 5:00 AM EST 100 mcg NSS 0.9% 1,000 mL bolus infusion Peripheral IV, at 1,000 mL/hr Administer over 60 Minutes, Administer entire volume within 60 minutes or less., ONCE, 1 dose, On Sat05/10/23 at 1900 New Bag 05/10/2023 9:13 PM EST 1,000 mL 100 0 mL/hr pantoprazole (Protonix) tab 40 mg 40 mg, Oral, Daily(AM), First dose on Sat05/11/23 at 0900, Until Discontinued, This med should NOT be Crushed or Chewed Given 05/14/2023 8:06 AM EST 40 mg Given 05/13/2023 8:44 AM EST 40 mg Given 05/12/2023 9:12 AM EST 40 mg potassium chloride 10 mEq in 100 mL ivpb LOCKED DOSE 10 mEq, Peripheral IV, Q1H, 3 doses, First dose on Sat05/10/23 at 2000, Last dose on Sat05/10/23 at 2200, Administer over 60 Minutes, Standard infusion duration is 60 minutes. Restarted 05/10/2023 10:27 PM EST 10 mEq/hr 100 mL/hr Restarted 05/10/2023 10:21 PM EST 10 mEq/hr 100 mL/hr New Bag 05/10/2023 9:39 PM EST 10 mEq 100 mL/hr potassium chloride ER tab 30 mEq 30 mEq, Oral, Q3H, First dose (after last reorder) on Sat05/10/23 at 2315, Last dose on Sat05/11/23 at 0600, For 3 doses, This med should NOT be Crushed or Chewed Given 05/11/2023 2:26 AM EST 30 mEq Given 05/10/2023 10:57 PM EST 30 mEq sodium chloride 0.9 % flush/inj 3 mL 3 mL, IV Push, PRN Other, Line Patency, Starting on Sat05/10/23 at 2258, Until Sat05/14/23 at 1720, Do not flush if lock, PICC, or central line not in place, IV infusing or unable to flush sodium PHOSphate 30 mmol in NSS 250 mL (NaPhos) ivpb 30 mmol, Peripheral IV, ONCE, 1 dose, On Sat05/12/23 at 1100 New Bag 05/12/2023 11:07 AM EST 30 mmol 57 mL/hr vancomycin (50 mg/ml) oral solution 125 mg 125 mg, Oral, Q6H, First dose on Sat05/13/23 at 0745, Last dose on Sat05/23/23 at 0000, For 10 days, REFRIGERATE Given 05/14/2023 12:25 PM EST 125 mg Given 05/14/2023 5:53 AM EST 125 mg Given 05/14/2023 12:34 AM EST 125 mg documented in this encounter Active and Recently Administered Medications Times are shown in EST. Scheduled Medication Order 05/12/2023 05/13/2023 05/14/2023 aspirin chew tab 81 mg 81 mg, Oral, Daily(AM), First dose on 05/11/23 at 0900, Until Discontinued 911 (Given - Provider: Carlotta Cabrera RN) 0844 (Given - Provider: Carlotta Cabrera RN) 08 (Given - Provider: Annika Vigil, DONALD) atorvaSTATin (Lipitor) tab 20 mg 20 mg, Oral, Daily(AM), First dose on 05/11/23 at 0900, Until Discontinued 911 (Given - Provider: Carlotta Cabrera RN) 0844 (Given - Provider: Carlotta Cabrera RN) 08 (Given - Provider: Annika Vigil RN) dorzolamide-timolol (Cosopt Ocumeter Plus) ophthalmic solution 1 Drop 1 Drop, Both eyes, BID (.AM/PM), First dose on 05/11/23 at 0900, Until Discontinued 910 (Given - Provider: Carlotta Cabrera RN)2029 (Given - Provider: Oly Jones RN) 0844 (Given - Provider: Carlotta Cabrera RN)2017 (Given - Provider: Oly Jones RN) 08 (Given - Provider: Annika Vigil, DONALD) Famotidine (Pepcid) tab 10 mg 10 mg, Oral, Daily(AM), First dose on 05/11/23 at 0900, Until Discontinued 911 (Given - Provider: Carlotta Cabrera RN) 0844 (Given - Provider: Carlotta Cabrera RN) 08 (Given - Provider: Annika Vigil, DONALD) Latanoprost (Xalatan) 0.005 % ophthalmic solution 1 Drop 1 Drop, Both eyes, HS, First dose on 05/11/23 at 0130, Until Discontinued 2028 (Given - Provider: Oly Jones RN) 2017 (Given - Provider: Oly Jones RN) levothyroxine (Levoxyl) tab 100 mcg 100 mcg, Oral, [id number], First dose on 05/11/23 at 0630, Until Discontinued 0500 (Given - Provider: Oly Jones RN) 0613 (Given - Provider: Oly Jones RN) 0554 (Given - Provider: Oly Jones RN) pantoprazole (Protonix) tab 40 mg 40 mg, Oral, Daily(AM), First dose on Sat05/11/23 at 0900, Until Discontinued, This med should NOT be Crushed or Chewed 0912 (Given - Provider: Carlotta Cabrera RN) 0844 (Given - Provider: Carlotta Cabrera, DONALD) 0806 (Given - Provider: Annika Vigil, DONALD) sodium PHOSphate 30 mmol in NSS 250 mL (NaPhos) ivpb (COMPLETED) 30 mmol, Peripheral IV, ONCE, 1 dose, On 05/12/23 at 1100 1107 (New Bag - Provider: Carlotta Cabrera, DONALD)1536 (Stopped - Provider: Carlotta Cabrera, RN) vancomycin (50 mg/ml) oral solution 125 mg 125 mg, Oral, Q6H, First dose on Sat05/13/23 at 0745, Last dose on Cinthia 05/23/23 at 0000, For 10 days, REFRIGERATE 0843 (Given - Provider: Carlotta Cabrera RN)1145 (Given - Provider: Carlotta Cabrera, RN)1802 (Given - Provider: Cherri Griffin RN) 0034 (Given - Provider: Oly Jones RN)0553 (Given - Provider: Oly Jones RN)1225 (Given - Provider: Annika Vigil, DONALD) PRN Medication Order 05/12/2023 05/13/2023 05/14/2023 Acetaminophen (Tylenol) tab 650 mg 650 mg, Oral, Q6H PRN Pain, Mild, Fever >38C(100.5F), Pain, Moderate, Starting on Sat05/10/23 at 2259, Until Sat05/14/23 at 1720, Maximum of 4 grams (4000 mg) per day. sodium chloride 0.9 % flush/inj 3 mL 3 mL, IV Push, PRN Other, Line Patency, Starting on Sat05/10/23 at 2258, Until Sat05/14/23 at 1720, Do not flush if lock, PICC, or central line not in place, IV infusing or unable to flush documented in this encounter Additional Health Concerns Infection Onset Date Last Indicated Resolved Time Gastrointestinal Rule-Out 05/11/2023 05/11/2023 10:18 AM EST C. difficile Rule-Out 05/12/2023 05/12/20232023 6:37 PM EST C. difficile 05/12/2023 05/12/2023 documented as of [...] the patient have Health Care Power of Coppersmith Apprentice? No Full Code 09/25/2020 6:44 PM 09/26/2020 6:50 PM This order reflects the patients wishes and were consensually agreed upon. Care Teams Freight Brake Operator Relationship Specialty Start Date End Date Ottoniel Kenyon MD [address] [address] PCP - General 12/15/01 documented as of this encounter
--- OUTSIDE RECORDS SUMMARY | 2023-06-01 11:08 | External Medical Summary | Summary of Care ---
Author Name Unknown Organization [facility] Address [address] [place] [address] Phone [phone] Care Team Providers Care Hypnotherapist Name Role Phone Kalen Ribeiro MD Primary Care Provider [phone]- [phone] Reason for Visit * Reason Onset Date Comments Appointment 05/17/2023 Encounter Details Date Type Department Care Team ([facility] st Contact Info) Description 05/17/2023 Telephone [facility] [place] [address] [place], [place] [id number] Services, Scheduling [address] [place] [address] Appointment (/) Allergies Active Allergy Reactions Criticality Noted Date Comments Heparin 10/07/2020 Concern for HIT documented as of this encounter (statuses as of 05/17/2023) Medications Medication Sig Dispensed Refills Start Date [...] as of this encounter (statuses as of 05/17/2023) Active Problems Problem Noted Date Diagnosed Date [...] aorta 07/14/2021 Atherosclerotic heart diseas e of [place] coronary artery with other forms of angina [...] as of this encounter (statuses as of 05/17/2023) Resolved Problems Problem Noted Date Diagnosed Date [...] as of this encounter (statuses as of 05/17/2023) Immunizations Name Administration Dates Next Due COVID-19 mRNA, LNP-s, No Pre serve, 2-Dose Series (Moderna) 06/09/2020,05/12/2020 COVID-19, mRNA, LNP-s, PF, B ooster, 100mcg/0.5mg (Moderna) 02/14/2021 Covid-19, Mrna, Lnp-s, Pf, B ivalent, 30 Mcg, IM, 12 yrs and above (Cyphoma) 12/26/2021 Pneumococcal Conjugate Vacc, 13 Valent (Prevnar) [...] encounter Miscellaneous Notes * Telephone Encounter - Arlet Barrow OSA - 05/17/2023 11:11 AM EST Moved appt due to RN PTO, spoke with silvino Mccord agrees to 05/23 documented in this encounter Plan of Treatment Upcoming Encounters Date Type Department Care Team (Late st Contact Info) Description 05/21/2023 2:00 PM EDT Office Visit [facility] [address] [place] [address] Kalen Ribeiro MD [address] [place] [address] 05/24/2023 12:30 PM EDT [facility] Visit [facility] [place], [facility] [address] [facility] [place] [address] Tabby Mera RN 132 [facility] [place] [address] 05/29/2023 11:30 AM EDT Telemedicine [facility] [place], [facility] [address] [facility] [place] [address] Ace Arriaga PA-C [address] [facility] [place] [address] [place] Xiong, [facility] Electroencephalograph Technologist [address] [place] [address] 06/18/2023 4:00 PM EDT Office Visit Hematology/Oncology [facility] [address] [phone] Rigoberto Aguilera MD [address] [address] 06/28/2023 8:00 AM EDT Office Visit [facility] [address] [place] [phone] Kalen Ribeiro MD [address] [place] [address] 08/01/2023 3:00 PM EDT Office Visit Orthopaedics [facility] [address] [place] [address] Chava Huff PA-C [address] [place] [address] 08/08/2023 2:20 PM EDT Office Visit Otolaryngology/Head & Neck/Facial Plastic Surgery [address] [place] [address] Joesph Yun MD [address] [place] [address] 09/02/2023 9:00 AM EDT Office Visit Cardiology, [facility] [address] [place] [address] Halley Preston CRNP [address] [place] [address] 10/01/2023 10:30 AM EDT Rehab Services Voice Lab, [facility] [address] [facility] [address] Lance Samuels, [facility] MISCELLANEOUS REMITTANCE CLERK [address] [place] [address] 10/01/2023 11:00 AM EDT Appointment Radiology, [facility] [address] [facility] [address] 02/10/2024 10:00 AM EST Cardiac Studies Cardiology, [facility] [address] [place] [address] [place], Pacer Clinic [facility] [address] [place] [address] 02/13/2024 8:15 AM EST Cardiac Studies Cardiac Studies, [facility] [address] [place] [address] Health Maintenance Due Date Last Done Comments Zoster Vaccines (2 of 3) 07/17/2007 05/22/2007 COVID-19 Vaccine ( season) 2022 12/26/2021, 02/14/2021, 06/09/2020, Additional history exists DXA Scan 02/14/2023 02/14/2021, 09/2020, 07/02/2017, Additional history exists Albumin/Creatinine Ratio 06/09/2023 06/08/2022, 05/11 GFR 11/14/2023 05/14/2023, 06/2023, 05/12/2023, Additional history exists Depression Screening 04/02/2024 04/02/2023 TSH 05/09/2024 05/10/2023, 04/11, 04/15/2023, Additional history exists CKD HGB USE SMARTSET 82665 05/13/202405/13, 05/14/2023, 05/13/2023, Additional history exists CKD PHOS USE SMARTSET 69520 05/13/202407/2023, 05/13/2023, 05/12/2023, Additional history exists DTaP,Tdap,and Td Vaccines (2 - Td or Tdap) 08/14/2024 08/14/2014, 01/25/2000 Pneumococcal Vaccine: 65+ Years Completed 01/06/2015, 08/19/2007 VITAMIN D LEVEL ONCE IN A LIFETIME-USE SMARTSET# 88606 Completed 12/11/2018, 07/07/2018, 10/06/2010 Influenza Vaccine (FLU [...] this encounter Medical Devices Implanted Type Area Social Psychologist Device Identifier Shelf Expiration Date Model / Serial / Lot [place] Pacemaker-12/05 Implanted:Qty: 1 on 12/05/2022 ICD Chest [employer] : CARDIAC SURGERY 09/02/2025 [id number] / / . Lead-12/05/2022 Implanted:Qty: 2 on 12/05/2022 Lead Chest [employer] : CARDIAC SURGERY 10/28/2025 [id number] AND 3830 / / . Balloon Cath Pacing [id number] - [id number] Implanted:Qty: 1 on 09/20/2020 at [facility] : MEDICAL [id number] 07/08/2022 520 [id number] / / [id number] Proglide Perclose 05299-72 X10 - [id number] Implanted:Qty: 1 on 09/20/2020 at [facility] : VASCULAR DEVICES [id number] 06/08/2022 27557-56 / / [id number] Valve Gb 3 Ultra 23mm - [id number] Implanted:Qty: 1 on 09/20/2020 by Dimitri Maya MD at [facility] [employer] [id number] 09/22/2022 [id number] / / . Lead Tempo Temp Pacing - [id number] Implanted:Qty: 1 on 09/20/2020 at [facility] [employer] [id number] 06/28/2021 [id number] / / [id number] documented as of this encounter Additional Health [...] the patient have Health Care Power of Line Patroller? No Full Code 09/25/2020 6:44 PM 09/26/2020 6:50 PM This order reflects the patients wishes and were consensually agreed upon. Care Teams Hypnotherapist Relationship Specialty Start Date End Date Kalen Ribeiro MD [address] [facility] [place] [address] PCP - General 12/15/01 documented as of this encounter
--- OUTSIDE RECORDS SUMMARY | 2023-06-01 11:08 | External Medical Summary | Summary of Care ---
Author Name Unknown Organization [facility] Address [address] [place] [address] Phone [phone] Care Team Providers Care Solids Control Technician Name Role Phone Kalen Ribeiro MD Primary Care Provider [phone]- [phone] Reason for Visit * Reason Onset Date Comments Appointment 05/16/2023 Encounter Details Date Type Department Care Team ([facility] st Contact Info) Description 05/16/2023 Telephone [facility] [place] [address] [place], [place] [phone] Services, Scheduling [address] [place] [address] Appointment (/) Allergies Active Allergy Reactions Criticality Noted Date Comments Heparin 10/07/2020 Concern for HIT documented as of this encounter (statuses as of 05/16/2023) Medications Medication Sig Dispensed Refills Start Date [...] as of this encounter (statuses as of 05/16/2023) Active Problems Problem Noted Date Diagnosed Date [...] aorta 07/14/2021 Atherosclerotic heart diseas e of [place] coronary artery with other forms of angina [...] as of this encounter (statuses as of 05/16/2023) Resolved Problems Problem Noted Date Diagnosed Date [...] as of this encounter (statuses as of 05/16/2023) Immunizations Name Administration Dates Next Due COVID-19 mRNA, LNP-s, No Pre serve, 2-Dose Series (Moderna) 06/09/2020,05/12/2020 COVID-19, mRNA, LNP-s, PF, B ooster, 100mcg/0.5mg (Moderna) 02/14/2021 Covid-19, Mrna, Lnp-s, Pf, B ivalent, 30 Mcg, IM, 12 yrs and above (Rockpack) 12/26/2021 Pneumococcal Conjugate Vacc, 13 Valent (Prevnar) [...] Telephone Encounter - Arlet Barrow OSA - 05/16/2023 10:55 AM EST Spoke to daughter who enrolled her mother in the program. Appt set for 05/21 and 05/28 documented in this encounter Plan of Treatment Upcoming Encounters Date Type Department Care Team (Late st Contact Info) Description 05/17/2023 11:00 AM EST Nutrition Services Nutrition, [facility] [address] [address] Ciara Mac RDN 132 [facility] [place] [address] 05/21/2023 2:00 PM EDT Office Visit [facility] [address] [place] [phone] Kalen Ribeiro MD [address] [place] [address] 05/22/2023 12:30 PM EDT Home Visit [facility] [place], [facility] [address] [place] [address] Tabby Mera, DONALD [address] [place] [address] 05/29/2023 11:30 AM EDT Telemedicine [facility] [place], [facility] [address] [place] [address] Ace Arriaga PA-C [address] [place] [address] [place] Xiong, Community [facility] Pneumatic Jacketer [address] [place] [facility] [place] [address] 06/18/2023 4:00 PM EDT Office Visit Hematology/Oncology [address] [place] [address] Rigoberto Aguilera MD [address] [facility] [place] [address] 06/28/2023 8:00 AM EDT Office Visit [facility] [address] [place] [phone] Kalen Ribeiro MD [address] [place] [address] 08/01/2023 3:00 PM EDT Office Visit Orthopaedics [facility] [address] [place] [address] Chava Huff PA-C [address] [place] [address] 08/08/2023 2:20 PM EDT Office Visit Otolaryngology/Head & Neck/Facial Plastic Surgery [address] [place] [address] Joesph Yun MD [address] [place] [address] 09/02/2023 9:00 AM EDT Office Visit Cardiology, [facility] [address] [place] [address] Halley Preston CRNP [address] [place] [address] 10/01/2023 10:30 AM EDT Rehab Services Voice Lab, [address] [place] [address] Lance Samuels, [facility] [address] [place] [address] 10/01/2023 11:00 AM EDT Appointment Radiology, [facility] [address] [place] [address] 02/10/2024 10:00 AM EST Cardiac Studies Cardiology, [facility] [address] [place] [address] [place], Pacer Clinic [facility] [address] [facility] [place] [address] 02/13/2024 8:15 AM EST Cardiac Studies Cardiac Studies, [facility] [address] [facility] [place] [address] Health Maintenance Due Date Last Done Comments Zoster Vaccines (2 of 3) 07/17/2007 05/22/2007 COVID-19 Vaccine ( season) 2022 12/26/2021, 02/14/2021, 06/09/2020, Additional history exists DXA Scan 02/14/2023 02/14/2021, 09/2020, 07/02/2017, Additional history exists Albumin/Creatinine Ratio 06/09/2023 06/08/2022, 3 03/2021 GFR 11/14/2023 05/14/2023, 06/2023, 05/12/2023, Additional history exists Depression Screening 04/02/2024 04/02/2023 TSH 05/09/2024 05/10/2023, 04/11, 04/15/2023, Additional history exists CKD HGB USE SMARTSET 48842 05/13/202405/13, 05/14/2023, 05/13/2023, Additional history exists CKD PHOS USE SMARTSET 63287 05/13/2024 030 07/2023, 05/13/2023, 05/12/2023, Additional history exists DTaP,Tdap,and Td Vaccines (2 - Td or Tdap) 08/14/2024 08/14/2014, 01/25/2000 Pneumococcal Vaccine: 65+ Years Completed 01/06/2015, 08/19/2007 VITAMIN D LEVEL ONCE IN A LIFETIME-USE SMARTSET# [id number] Completed 12/11/2018, 07/07/2018, 10/06/2010 Influenza Vaccine (FLU [...] this encounter Medical Devices Implanted Type Area Lifestyle Director Device Identifier Shelf Expiration Date Model / Serial / Lot Molly Pacemaker-12/05 Implanted:Qty: 1 on 12/05/2022 ICD Chest [employer] : CARDIAC SURGERY 09/02/2025 [id number] / / . Lead-12/05/2022 Implanted:Qty: 2 on 12/05/2022 Lead Chest [employer] : CARDIAC SURGERY 10/28/2025 5076 AND 3830 / / . Balloon Cath Pacing [id number] - [id number] Implanted:Qty: 1 on 09/20/2020 at [facility] : MEDICAL [id number] 07/08/2022 520 007P / / [id number] Proglide Perclose 56062-23 X10 - [id number] Implanted:Qty: 1 on 09/20/2020 at [facility] : VASCULAR DEVICES [id number] 06/08/2022 [id number] / / [id number] Valve Bg 3 Ultra 23mm - [id number] Implanted:Qty: 1 on 09/20/2020 by Dimitri Maya MD [place] [facility] [employer] [id number] 09/22/2022 [id number] / / . Lead Tempo Temp Pacing - [id number] Implanted:Qty: 1 on 09/20/2020 at [facility] [employer] [id number] 06/28/2021 T1106 / / [id number] documented as of this encounter Additional Health [...] the patient have Health Care Power of Filling Mixer? No Full Code 09/25/2020 6:44 PM 09/26/2020 6:50 PM This order reflects the patients wishes and were consensually agreed upon. Care Teams Solids Control Technician Relationship Specialty Start Date End Date Kalen Ribeiro MD [address] [place] [address] PCP - General 12/15/01 documented as of this encounter
--- OUTSIDE RECORDS SUMMARY | 2023-06-01 11:08 | External Medical Summary | Summary of Care ---
Author Name Unknown Organization [facility] Address [address] [place] [address] Phone [phone] Care Team Providers Care Media Coordinator Name Role Phone Kalen Ribeiro MD Primary Care Provider +[phone]- [phone] Reason for Visit * Reason Comments Medical Nutrition Therapy * Evaluate & Treat - Unlimited Visits (Within 30 days (routine)) - Authorized Specialty Diagnoses / Procedures Referred By Contac t Referred To Contact Dietitian / Nutrition Services Diagnoses Severe protein-calorie malnutrition (HCC) Kalen Ribeiro MD [address] [place] [address] Referral ID Status Reason Start Date Expiration Date Visits Requested Visits Authorized [id number] Authorized Specialty Services Required 05/08/2023 999 [id number] Encounter Details Date Type Department Care Team (Latest Contact Info) Description 05/17/2023 11:00 AM [facility] [place] [address] [place] [address] Ciara Mac RDN [address] [place] [address] Severe protein-energy malnutrition (HCC)*; Iron deficiency anemia, unspecified iron deficiency anemia type; Failure to thrive in adult; C. difficile colitis; Anorexia; Leukocytosis, unspecified type; Severe protein-calorie malnutrition (HCC) [E43] Allergies Active Allergy Reactions Criticality Noted Date [...] aorta 07/14/2021 Atherosclerotic heart diseas e of [place] coronary artery with other forms of angina [...] Sign Reading Time Taken Comments Blood Pressure - - Pulse - - Temperature - - Respiratory Rate - - Oxygen Saturation - - Inhaled Oxygen Concentration - - Weight 46.1 kg (101 lb 11.2 oz) 024 11:11 AM EST Height 144.8 cm (4' 9.01") 05/17/2023 1 1:11 AM EST Body Mass Index 22 05/17/2023 11:11 AM EST documented in this [...] No 05/10/2023 documented as of this encounter Patient Instructions * Patient Instructions* Ciara Mac RDN - 05/17/2023 12:03 PM EST Patient will consume a few bites of food at least 4 times a day. Try canned fruit with heavy syrup or cereal or PB on crackers or jelly bread or rice pudding. Patient will continue to drink at least 1 serving of Boost Breeze. Eventually increase to 2 servings daily. documented in this encounter Progress Notes * Ciara Mac RDN - 05/17/2023 11:11 AM EST NUTRITION CONSULT - OUTPATIENT [facility] Name: Marie Nieves Location: [facility] Date: 05/17/2023 Time: 11:11 AM Patient was identified by name and date. Patient was seen [id number] in the clinic. Reason for Referral: Malnutrition NUTRITION ASSESSMENT: Client History Patient is a 83 year old female being seen for above issue. She is accompanied by her daughter Suri. [place] [facility] [place] She has been living with her daughter since early April. Support System: Daughter Barriers To Learning: Hard of hearing and Impaired vision Special Education Needs: Large print Food/Nutrition-Related History Describes typical diet history/24 hr recall Breakfast: 1/2 cup coffee with potassium, Boost Breeze, water Snacks: none Lunch: none Snacks: none Dinner: only a few bites chicken pesto sandwich or ham, few spoonfuls of green beans and a couple potatoes Diet Recall/Food Logs Indicate: AREAS FOR IMPROVEMENT: Poor meal distribution Inadequate fiber intake Inadequate fruit and vegetable intake Inadequate fluid intake Inadequate calcium intake Inadequate calorie intake Inadequate protein intake Food and Nutrient Intake and other pertinent information: Patient's appetite has not improved sincedischarge home from recent hospital [place] [facility] [place]. Patient has had multiple swallowing evaluations, multiple CT scans, chest X- ray's, an EGD, ENT evaluations, and an MRI. Daughter states pt did have C-diff but notes this is now resolved. She states pt is incontinent of bowel and bladder, but does not like to wear depends as she has a difficult time getting them on and off. Daughter works full-time and pt is alone part of the day. Daughter notes pt to have home nursing visit starting on Saturday. Patient was encouraged to have home PT but she declined this. Patient cannot tolerate any dairy foods as they cause significant phlegm. Food allergies and/or food intolerances: dairy foods-increased phlegm Pertinent Medications (Current): Current Outpatient Medications Medication Sig Dispense Refill [...] No current facility-administered medications for this visit. Patient is no longer taking lasix per daughter. Supplements: KCl and Probiotic. Boost breeze 1 serving daily Prior Nutrition Counseling: Maddy Dietitian during hospital admission Physical Activity: Limited due to weakness, pt uses a cane for ambulation Anthropometric Measurements Ht 1.448 m (4' 9.01") | Wt 46.1 kg (101 lb 11.2 oz) | BMI 22.00 kg/m | BSA 1.36 m Wt Readings from Last 5 Encounters: 05/17/23 46.1 kg (101 lb 11.2 oz) 05/14/23 42.5 kg (93 lb 12.8 oz) 05/10/23 44.8 kg (98 lb 12.8 oz) 04/23/23 48 kg (105 lb 12.8 oz) 04/16/23 48.7 kg (107 lb 6.4 oz) Of note: above weight of 3/8 was done with a jacket and shoes Weight Change: decreased by 12 pounds in the past month per EPIC review 04/23 to 05/13. Interpretation of weight change: greater than 5% weight loss in 1 month (severe)-11.4% in past month BMI: BMI Readings from Last 1 Encounters: 05/17/23 22.00 kg/m Nutrition-Focused Physical Findings Overall appearance: thin, cachectic Loss of fat mass: Orbital fat pads: Severe Buccal fat: Mild Triceps: Moderate Ribs: unable to assess Loss of muscle mass: Temples: Severe Clavicle: Moderate Shoulder: Moderate Scapula: Moderate Interosseous: Mild Quadriceps/Thigh: Moderate Calf: Moderate Micronutrient Exam: Hair: thinning, usual for pt per daughter Eyes: reddened, using drops for glaucoma Mouth (oral mucosa): dry mouth, dry mucosa, has upper and lower teeth, discolored Lips: WNL Gums : dry Tongue: dry, cracked, brown in appearance Nails: lined appearance Skin: ecchymotic areas of bilateral upper extremities Fluid accumulation: Fluid Assessment: +1 Fluid Location: Lower Extremity, Bilateral Digestive system: Appetite: poor Nerves and cognition: Awake, alert and Oriented Nutritionally significant wound burden: Intact Biochemical Data, Medical Tests, and Procedures Latest Reference Range & Units 05/14/23 05:38 WBC 4.00 - 10.80 K/uL 16.80 (H) HGB 12.0 - 15.3 g/dL 10.8 (L) HCT 36.0 - 45.2 % 32.4 (L) MCV 81.5 - 97.5 fL 93.1 PLT 140 - 400 K/uL 285 (H): Data is abnormally high (L): Data is abnormally low Latest Reference Range & Units 05/10/23 23:47 Iron 33 - 151 ug/dL 17 (L) Iron Binding Capacity 250 - 425 ug/dL 96 (L) Transferrin Saturation Percent 15 - 55 % 18 Ferritin 13 - 150 ng/mL 1,143 (H) (L): Data is abnormally low (H): Data is abnormally high Above levels reviewed. NUTRITION DIAGNOSIS Malnutrition severe related to chronic illness as evidenced by patient consuming less than 75% of estimated energy requirements x 1 month, greater than 5% weight loss x 1 month, severe fat loss, and severe muscle loss. NUTRITION INTERVENTION: NUTRITION EDUCATION Initial/brief nutrition education NUTRITION COUNSELING Strategies Other Education Material: Academy of Nutrition and Dietetics Nutrition Care Manual Handout -Underweight Nutrition Therapy Nutrition Prescription: Diet: Good Nutrition High calorie/High protein Daily Calorie Needs: 1400 Kcals Daily Protein Needs: 60 Grams protein Goals: Patient will consume a few bites of food at least 4 times a day. Try canned fruit with heavy syrup or cereal or PB on crackers or jelly bread or rice pudding. Patient will continue to drink at least 1 serving of Boost Breeze. Eventually increase to 2 servings daily. Dietitian Action: Encouraged patient to try eating a few bites of different foods when offered by her daughter. Patient is unable to tolerate dairy foods and dislikes many others-ie, mushy foods, meat. Developed list of things pt states that she would be willing to try-rice pudding,jelly bread, canned fruit with heavy syrup, or cereal. Encouraged pt to increase intake of Boost Breeze but daughterstates pt can barely drink 1 serving of this, which takes her all day. Encouraged pt to drink most of her fluids between meals and try high- calorie, high-protein fluids. Daughter asking about IV nutrition. Discussed risk of infection with this and that enteral nutrition is preferred choice for nutri tion support for pt. [facility] and other providers have discussed this option with her, but she is uncertain if pt will tolerate it. Daughter complains that she was not told of primary diagnoses for pt when admitted to the hospital recently-GM and GLH. She expresses frustration with situationand pt's multiple medical issues which she feels have not been resolved. Recommendations to Ordering Provider: Continue current plan of nutrition care. NUTRITION MONITORING AND EVALUATION: The following will be monitored and evaluated at the next visit: Monitor weight. Monitor goals and progress. Plan:Patient scheduled to return in 4 weeks; dietitian phone # given for future reference. 60 minutes Medical Nutrition Therapy 15 min (8-22 min) 30 min (23-37 min) 45 min (38-52 min) 60 min (53-67 min) 75 min (68-82 min) 90 min (83-97 min) 105 min (98-113 min) Time In: 1107 (05/17/23 1900) Time Out: 1214 (05/17/230) Ciara Mac RDN NUTRITION, MAURA BEASLEY documented in this encounter Plan of Treatment Upcoming Encounters Date Type Department Care Team (Late st Contact Info) Description 05/21/2023 2:00 PM EDT Office Visit [address] [place] [phone] Kalen Ribeiro MD [address] [place] [address] 05/24/2023 12:30 PM EDT Home Visit [facility] 132 [facility] [place] [address] Tabby Mera RN 132 [facility] [place] [address] 05/29/2023 11:30 AM EDT Telemedicine [facility] 132 [facility] [place] [address] Ace Arriaga PA-C 132 [facility] [place] [address] [place] Xiong, Community Health Maintenance Engineer [address] [place] [address] 06/18/2023 4:00 PM EDT Office Visit Hematology/Oncology Marcell Jones [place] [address] [facility] [place], [place] [phone] Rigoberto Aguilera MD [address] [facility] [place] [address] 06/28/2023 8:00 AM EDT Office Visit [address] [place] [phone] Kalen Ribeiro MD [address] [place] [address] 08/01/2023 3:00 PM EDT Office Visit Orthopaedics [facility] [address] [place] [address] Chava Huff PA-C [address] [place] [address] 08/08/2023 2:20 PM EDT Office Visit Otolaryngology/Head & Neck/Facial Plastic Surgery [address] [place] [address] Joesph Yun MD [address] [place] [address] 09/02/2023 9:00 AM EDT Office Visit Cardiology, [facility] [address] [place] [address] Halley Preston CRNP [address] [place] [address] 10/01/2023 10:30 AM EDT Rehab Services Voice Lab, [facility] [address] [place] [address] Lance Samuels, [facility] FACILITATOR [address] [place] [address] 10/01/2023 11:00 AM EDT Appointment Radiology, [facility] [address] [place] [phone] 02/10/2024 10:00 AM EST Cardiac Studies Cardiology, [facility] [address] [place] [address] [facility] [address] [place] [address] 02/13/2024 8:15 AM EST Cardiac Studies Cardiac Studies, [facility] [address] [facility] [place] [address] Scheduled Referrals Name Type Priority Associated Diagnoses Orde r Schedule NUTRITION-CLINICAL DIETITIAN REFERRAL OP Referral Within 30 days (routine) Severe protein-calorie malnutrition (HCC) Ordered: 05/08/2023 Health Maintenance Due Date Last Done Comments Zoster Vaccines (2 of 3) 07/17/2007 05/22/2007 COVID-19 Vaccine ( season) 2022 12/26/2021, 02/14/2021, 06/09/2020, Additional history exists DXA Scan 02/14/2023 02/14/2021, 09/2020, 07/02/2017, Additional history exists Albumin/Creatinine Ratio 06/09/2023 06/08/2022, 05/11 GFR 11/14/2023 05/14/2023, 06/2023, 05/12/2023, Additional history exists Depression Screening 04/02/2024 04/02/2023 TSH 05/09/2024 05/10/2023, 04/11, 04/15/2023, Additional history exists CKD HGB USE SMARTSET 92356 05/13/202405/13, 05/14/2023, 05/13/2023, Additional history exists CKD PHOS USE SMARTSET 38981 05/13/202407/2023, 05/13/2023, 05/12/2023, Additional history exists DTaP,Tdap,and Td Vaccines (2 - Td or Tdap) 08/14/2024 08/14/2014, 01/25/2000 Pneumococcal Vaccine: 65+ Years Completed 01/06/2015, 08/19/2007 VITAMIN D LEVEL ONCE IN A LIFETIME-USE SMARTSET# [id number] Completed 12/11/2018, 07/07/2018, 10/06/2010 Influenza Vaccine (FLU [...] this encounter Medical Devices Implanted Type Area Stove Mounter Device Identifier Shelf Expiration Date Model / Serial / Lot Molly Pacemaker-12/05 Implanted:Qty: 1 on 12/05/2022 ICD Chest [employer] : CARDIAC SURGERY 09/02/2025 [id number] / / . Lead-12/05/2022 Implanted:Qty: 2 on 12/05/2022 Lead Chest [employer] : CARDIAC SURGERY 10/28/2025 [id number] AND 3830 / / . Balloon Cath Pacing [id number] - [id number] Implanted:Qty: 1 on 09/20/2020 at [facility]AC LABS [facility] BARD : MEDICAL [id number] 07/08/2022 520 [id number] / / [id number] Proglide Perclose 81699-07 X10 - [id number] Implanted:Qty: 1 on 09/20/2020 at [facility] : VASCULAR DEVICES [id number] 06/08/2022 [id number] / / [id number] Valve Bg 3 Ultra 23mm - [id number] Implanted:Qty: 1 on 09/20/2020 by Dimitri Maya MD at [facility] [employer] [id number] 09/22/2022 [id number] / / . Lead Tempo Temp Pacing - [id number] Implanted:Qty: 1 on 09/20/2020 at [facility] [employer] [id number] 06/28/2021 [id number] / / [id number] documented as of this encounter Visit Diagnoses Diagnosis Severe protein-energy malnutrition (HCC)- Primary Other severe protein-calorie malnutrition Iron deficiency anemia, unspecified iron deficiency anemia type Failure to thrive in adult Adult failure to thrive C. difficile colitis Intestinal infection due to clostridium difficile Anorexia Leukocytosis, unspecified type Severe protein-calorie malnutrition (HCC) [E43] Other severe protein-calorie malnutrition documented in this encounter Additional Health Concerns [...] the patient have Health Care Power of Lithographer Apprentice? No Full Code 09/25/2020 6:44 PM 09/26/2020 6:50 PM This order reflects the patients wishes and were consensually agreed upon. Care Teams Media Coordinator Relationship Specialty Start Date End Date Kalen Ribeiro MD [address] [place] [address] PCP - General 12/15/01 documented as of this encounter
--- OUTSIDE RECORDS SUMMARY | 2023-06-01 11:08 | External Medical Summary | Summary of Care ---
Author Name Unknown Organization [facility] Address [address] [place] [address] Phone [phone] Care Team Providers Care As400 Operator Name Role Phone Kalen Ribeiro MD Primary Care Provider +1- [phone] Reason for Visit * Reason Onset Date Comments Appointment 05/15/2023 Encounter Details Date Type Department Care Team ([facility] st Contact Info) Description 05/15/2023 Telephone [facility] [place] [address], [place] [phone] Services, Scheduling [address] [place] [address] Appointment (/) Allergies Active Allergy Reactions Criticality [...] aorta 07/14/2021 Atherosclerotic heart diseas e of [place] coronary artery with other forms of angina [...] 30 Mcg, IM, 12 yrs and above ([employer] 12/26/2021 Pneumococcal Conjugate Vacc, 13 Valent (Prevnar) [...] Telephone Encounter - Arlet Barrow OSA - 05/15/2023 1:36 PM EST [facility] Engagement Attempt Engagement: Engagement Attempt 1: No data was found Home Information: No data was found Advance Care Planning (ACP): No data was found Has Living Will or Advance Directive: No data was found Anticipated Sub-Program: Focused Care Management (3-9 months) Confirmation of Sub-Program Type (by care steam and power superintendent): No data was found Handoff Information: Current care team notified via: No data was found Current telemonitoring equipment: No data was found Lmom for both daughter and pt. Looking at Chad, I TT her if she would do new pt 05/20 10am, she agreed [place]/Inga 05/28 Placed on cb documented in this encounter Plan of Treatment Upcoming Encounters Date Type Department Care Team (Late st Contact Info) Description 05/16/2023 10:30 AM EST [facility] [address] [facility] [place] [address] Coordinator, [facility] [address] [place] [address] 05/17/2023 11:00 AM EST Nutrition Services Nutrition, [facility] [address] [place] [address] Ciara Mac RDN [address] [place] [address] 05/21/2023 2:00 PM EDT Office Visit [facility] [address] [facility] [phone] Kalen Ribeiro MD [address] [facility] [place] [address] 06/18/2023 4:00 PM EDT Office Visit Hematology/Oncology Marcell Jones [place] 200 [place] [address] Rigoberto Aguilera MD [address] [facility] [place] [address] 06/28/2023 8:00 AM EDT Office Visit [facility] [address] [place] [facility] [address] Kalen Ribeiro MD [address] [place] [address] 08/01/2023 3:00 PM EDT Office Visit Orthopaedics [facility] [address] [facility] [place] [address] Chava Huff PA-C [address] [facility] [place] [address] 08/08/2023 2:20 PM EDT Office Visit Otolaryngology/Head & Neck/Facial Plastic Surgery [address] [place] [address] Joesph Yun MD [address] [place] [address] 09/02/2023 9:00 AM EDT Office Visit Cardiology, [facility] [address] [place] [address] Halley Preston CRNP [address] [place] [address] 10/01/2023 10:30 AM EDT Rehab Services Voice Lab, Maddy Perea [address] [place] [address] Lance Smauels, [facility] CONSULTANT [address] [place] [address] 10/01/2023 11:00 AM EDT Appointment Radiology, [facility] [address] [place] [phone] 02/10/2024 10:00 AM EST Cardiac Studies Cardiology, [facility] [address] [place] [address] [place], [facility] [address] [place] [address] 02/13/2024 8:15 AM EST Cardiac Studies Cardiac Studies, [facility] [address] [place] [address] Health Maintenance Due Date Last Done Comments Zoster Vaccines (2 of 3) 07/17/2007 05/22/2007 COVID-19 Vaccine ( season) 2022 12/26/2021, 02/14/2021, 06/09/2020, Additional history exists DXA Scan 02/14/2023 02/14/2021, 09/2020, 07/02/2017, Additional history exists Albumin/Creatinine Ratio 06/09/2023 06/08/2022, 05/11 GFR 11/14/2023 05/14/2023, 06/2023, 05/12/2023, Additional history exists Depression Screening 04/02/2024 04/02/2023 TSH 05/09/2024 05/10/2023, 04/11, 04/15/2023, Additional history exists CKD HGB USE SMARTSET 15802 05/13/202405/13, 05/14/2023, 05/13/2023, Additional history exists CKD PHOS USE SMARTSET 57199 05/13/20240 07/2023, 05/13/2023, 05/12/2023, Additional history exists DTaP,Tdap,and Td Vaccines (2 - Td or Tdap) 08/14/2024 08/14/2014, 01/25/2000 Pneumococcal Vaccine: 65+ Years Completed 01/06/2015, 08/19/2007 VITAMIN D LEVEL ONCE IN A LIFETIME-USE SMARTSET# 35176 Completed 12/11/2018, 07/07/2018, 10/06/2010 Influenza Vaccine (FLU [...] this encounter Medical Devices Implanted Type Area Produce Associate Device Identifier Shelf Expiration Date Model / Serial / Lot [place] Pacemaker-12/05 Implanted:Qty: 1 on 12/05/2022 ICD Chest [employer] : CARDIAC SURGERY 09/02/2025 [id number] / / . Lead-12/05/2022 Implanted:Qty: 2 on 12/05/2022 Lead Chest [employer] : CARDIAC SURGERY 10/28/2025 [id number] AND 3830 / / . Balloon Cath Pacing [id number] - [id number] Implanted:Qty: 1 on 09/20/2020 at [facility]S [facility] BARD : MEDICAL [id number] 07/08/2022 520 [id number] / / [id number] Proglide Perclose 19589-20 X10 - [id number] Implanted:Qty: 1 on 09/20/2020 at [facility] [place] [facility] : VASCULAR DEVICES [id number] 06/08/2022 [id number] / / [id number] Valve Bg 3 Ultra 23mm - [id number] Implanted:Qty: 1 on 09/20/2020 by Dimitri Maya MD at [facility] [facility] [employer] [id number] 09/22/2022 [id number] / / . Lead Tempo Temp Pacing - [id number] Implanted:Qty: 1 on 09/20/2020 at [facility] [employer] [id number] 06/28/2021 T1106 / / [id number] documented as of this encounter Additional Health [...] the patient have Health Care Power of House Shorer? No Full Code 09/25/2020 6:44 PM 09/26/2020 6:50 PM This order reflects the patients wishes and were consensually agreed upon. Care Teams [id number] Operator Relationship Specialty Start Date End Date Kalen Ribeiro MD [address] [place] [address] PCP - General 12/15/01 documented as of this encounter
--- OUTSIDE RECORDS SUMMARY | 2023-06-01 11:08 | External Medical Summary | Summary of Care ---
Author Name Unknown Organization [facility] Address [address] [place] [address] Phone [phone] Care Team Providers Care Supervisor Publications Name Role Phone Kalen Ribeiro MD Primary Care Provider [phone]- [phone] Reason for Visit * Reason Comments Medical Nutrition Therapy * Evaluate & Treat - Unlimited Visits (Within 30 days (routine)) - Authorized Specialty Diagnoses / Procedures Referred By Contac t Referred To Contact Dietitian / Nutrition Services Diagnoses Severe protein-calorie malnutrition (HCC) Kalen Ribeiro MD [address] [place] [address] Referral ID Status Reason Start Date Expiration Date Visits Requested Visits Authorized [id number] Authorized Specialty Services Required 05/08/[phone] Encounter Details Date Type Department Care Team (Latest Contact Info) Description 05/17/2023 11:00 AM 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 Patient was seen [id number] in the clinic. Reason for Referral: Malnutrition NUTRITION ASSESSMENT: Client History Patient is a 83 year old female being seen for above issue. She is accompanied by her daughter Suri. Patient was recently discharged from [facility]. She has been living with her daughter [...] sincedischarge home from recent hospital stay at [facility] on 05/10/23. Patient has had multiple swallowing [...] meals and try high- calorie, high-protein fluids. Discussed need for adequate oral nutrition to prevent further weight loss, muscle wasting, fat loss, and weakness. Daughter asking about IV nutrition. Discussed risk of infection with this and that enteral nutrition is preferred choice for nutrition support for pt. [facility] and other providers have discussed this option with her, but she is uncertain if pt will tolerate it. Daughter complains that she was not told of pr imary diagnoses for pt when admitted to the hospital recently-GM and GLH. She expresses frustrationwith situation and pt's multiple medical issues which she feels [...] 105 min (98-113 min) Time In: 1107 (05/17/231899) Time Out: 1214 (05/17/231899) Ciara Mac RDN [facility] documented in this encounter Plan of Treatment Upcoming Encounters Date Type Department Care Team (Late st Contact Info) Description 05/21/2023 2:00 PM EDT Office Visit [facility] [address] [place] [phone] Kalen Ribeiro MD [address] [place] [address] 05/24/2023 12:30 PM EDT Home Visit [facility] [place], [facility] [address] [facility] [place] [address] Tabby Mera, DONALD 132 [facility] [place] [address] 05/29/2023 11:30 AM EDT Telemedicine [facility] [place], [facility] [address] [facility] [place] [address] Ace Arriaga PA-C [address] [facility] [place] [address] [place] Xiong, [facility] Teacher [address] [place] [facility] [place] [address] 06/18/2023 4:00 PM EDT Office Visit Hematology/Oncology [facility] [address] [place] [phone] Rigoberto Aguilera MD [address] [place] [address] 06/28/2023 8:00 AM EDT Office Visit [facility] [address] [place] [phone] Kalen Ribeiro MD [address] [place] [address] 08/01/2023 3:00 PM EDT Office Visit Orthopaedics [facility] [address] [facility] [place] [address] Chava Huff PA-C [address] [place] [address] 08/08/2023 2:20 PM EDT Office Visit Otolaryngology/Head & Neck/Facial Plastic Surgery [address] [place] [address] Joesph Yun MD [address] [place] [address] 09/02/2023 9:00 AM EDT Office Visit Cardiology, [facility] [address] [place] [address] Halley Preston CRNP [address] [place] [address] 10/01/2023 10:30 AM EDT Rehab Services Voice Lab, [address] [address] Lance Samuels, [facility] [address] [place] [address] 10/01/2023 11:00 AM EDT Appointment Radiology, [address] [phone] 02/10/2024 10:00 AM EST Cardiac Studies Cardiology, [facility] 132 [facility] [place] [address] [facility] [address] [facility] [place] [address] 02/13/2024 8:15 AM EST Cardiac Studies Cardiac Studies, [facility] [address] [facility] [place] [address] Scheduled Referrals Name Type Priority Associated Diagnoses [...] Additional history exists CKD HGB USE SMARTSET 70595 05/13/202405/13, 05/14/2023, 05/13/2023, Additional history exists CKD PHOS USE SMARTSET 44005 05/13/2024 030 07/2023, 05/13/2023, 05/12/2023, Additional history exists DTaP,Tdap,and Td Vaccines (2 - Td or Tdap) 08/14/2024 08/14/2014, 01/25/2000 Pneumococcal Vaccine: 65+ Years Completed 01/06/2015, 08/19/2007 VITAMIN D LEVEL ONCE IN A LIFETIME-USE SMARTSET# 86622 Completed 12/11/2018, 07/07/2018, 10/06/2010 Influenza Vaccine (FLU [...] this encounter Medical Devices Implanted Type Area Security Risk Analyst Device Identifier Shelf Expiration Date Model / Serial / Lot Molly Pacemaker-12/05 Implanted:Qty: 1 on 12/05/2022 ICD Chest [employer] : CARDIAC SURGERY 09/02/2025 [id number] / / . Lead-12/05/2022 Implanted:Qty: 2 on 12/05/2022 Lead Chest [employer] : CARDIAC SURGERY 10/28/2025 [id number] AND 3830 / / . Balloon Cath Pacing [id number] - [id number] Implanted:Qty: 1 on 09/20/2020 at [facility] : MEDICAL [id number] 07/08/2022 520 [id number] / / [id number] Proglide Perclose 58352-42 X10 - [id number] Implanted:Qty: 1 on 09/20/2020 at [facility] : VASCULAR DEVICES [id number] 06/08/2022 04191-12 / / [id number] Valve Bg 3 Ultra 23mm - [id number] Implanted:Qty: 1 on 09/20/2020 by Dimitri Maya MD at [facility] [employer] [id number] 09/22/2022 [id number] / / . Lead Tempo Temp Pacing - [id number] Implanted:Qty: 1 on 09/20/2020 at [facility] [employer] [id number] 06/28/2021 [id number] / / [id number] documented as of this encounter Visit Diagnoses [...] the patient have Health Care Power of Assistant Manager Bilingual? No Full Code 09/25/2020 6:44 PM 09/26/2020 6:50 PM This order reflects the patients wishes and were consensually agreed upon. Care Teams Supervisor Publications Relationship Specialty Start Date End Date Kalen Ribeiro MD [address] [place] [address] PCP - General 12/15/01 documented as of this encounter
--- OUTSIDE RECORDS SUMMARY | 2023-06-01 11:09 | External Medical Summary | Summary of Care ---
Author Name Unknown Organization [facility] Address [address] [place] [address] Phone [phone] Care Team Providers Care Wind Farm Engineer Name Role Phone Kalen Ribeiro MD Primary Care Provider +1- [phone] Encounter Details Date Type Department Care Team ([facility] st Contact Info) Description 05/13/2023 Population Health External Data Unspecified Department Allergies Active Allergy Reactions Criticality Noted Date Comments Heparin 10/07/2020 Concern for HIT documented as of this encounter (statuses as of 05/13/2023) Medications Medication Sig Dispensed Refills Start Date End Date Status DORZOLAMIDE HCL-TIMOLOL MAL 22.3-6.8 MG/ML OP SOLN Instill 1 Drop into eye in the morning and 1 Drop before bedtime. 0 01/01/2013 Suspended Acetaminophen ER 650 MG Oral Tablet Extended Release Take 1 Tablet by mouth every 8 hours as needed for Pain, Mild. 0 Suspended Aspirin 81 MG Oral Tablet Chewable Take 1 Tab by mouth daily. 30 Tab 3 10/05/2020 Suspended Additional Information Rocklatan 0.02-0.005 % Ophthalmic Solution (Netarsudil-Latano prost) Instill 1 Drop into eye in the morning and 1 Drop before bedtime. 0 Suspended Furosemide 20 MG Oral Tablet (Lasix) TAKE ONE TABLET BY MOUTH DAILY 90 Tablet 3 04/13/2022 Suspended Additional Information Levothyroxine Sodium 100 MCG Oral Tablet (Levoxyl)Indicatio ns:Hypothyroidism, unspecified type Take 1 Tablet by mouth in the morning. (at least 30 min prior to breakfast or other meds). 90 Tablet 3 06/12/2022 Suspended Additional Information Pantoprazole Sodium 40 MG Oral Tablet Delayed Release (Protonix) TAKE 1 TABLET BY MOUTH ONCE DAILY 90 Tablet 1 12/17/2022 Suspended Additional Information Famotidine 20 MG Oral Tablet (Pepcid) Take 1 Tablet by mouth in the morning and 1 Tablet before bedtime. 60 Tablet 11 12/25/2022 Suspended Additional Information Atorvastatin Calcium 20 MG Oral Tablet (Lipitor)Indicatio ns:Dyslipidemia, goal LDL below 70 TAKE 1 TABLET BY MOUTH ONCE DAILY 90 Tablet 3 01/03/2023 Suspended Additional Information Potassium Chloride Estefany ER 20 MEQ Oral Tablet Extended ReleaseIndications :Hypokalemia Take 1 tablet by mouth twice per day for 3 days and then once per day. 90 Tablet 1 04/30/2023 Suspended Additional Information Sertraline HCl 25 MG Oral Tablet (Zoloft) Take 1 Tablet by mouth in the morning. 30 Tablet 5 05/08/2023 Suspended Additional Information Patient not taking.Reported on 05/11/2023 documented as of this encounter (statuses as of 05/13/2023) Active Problems Problem Noted Date Diagnosed Date [...] aorta 07/14/2021 Atherosclerotic heart diseas e of sycuan coronary artery with other forms of angina [...] as of this encounter (statuses as of 05/13/2023) Resolved Problems Problem Noted Date Diagnosed Date [...] as of this encounter (statuses as of 05/13/2023) Immunizations Name Administration Dates Next Due COVID-19 mRNA, LNP-s, No Pre serve, 2-Dose Series (Moderna) 06/09/2020,05/12/2020 COVID-19, mRNA, LNP-s, PF, B ooster, 100mcg/0.5mg (Moderna) 02/14/2021 Covid-19, Mrna, Lnp-s, Pf, B ivalent, 30 Mcg, IM, 12 yrs and above (Appbyme) 12/26/2021 Pneumococcal Conjugate Vacc, 13 Valent (Prevnar) [...] 05/17/2023 11:00 AM EST Nutrition Services Nutrition, [facility] [address] [place] [address] Ciara Mac RDN [address] [place] [address] 06/18/2023 4:00 PM EDT [facility] [address] [place] [address] Rigoberto Aguilera MD [address] [place], [place] [address] 06/28/2023 8:00 AM EDT Office Visit [facility] [address] [place] [phone] Kalen Ribeiro MD [address] [place] [address] 08/01/2023 3:00 PM EDT Office Visit Orthopaedics [facility] [address] [place] [address] Chava Huff PA-C [address] [place] [address] 08/08/2023 2:20 PM EDT Office Visit Otolaryngology/Head & Neck/Facial Plastic Surgery [address] [place] [address] Joesph Yun MD [address] [place] [address] 09/02/2023 9:00 AM EDT Office Visit Cardiology, [facility] [address] [place] [address] Halley Preston CRNP [address] [place] [address] 10/01/2023 10:30 AM EDT Rehab Services Voice Lab, [address] [address] Lance Samuels, [facility] [address] [place] [address] 10/01/2023 11:00 AM EDT Appointment Radiology, [facility] [address] [place] [address] 02/10/2024 10:00 AM EST Cardiac Studies Cardiology, [facility] [address] [place] [address] [place], Pacer Clinic [facility] [address] [place] [address] 02/13/2024 8:15 AM EST Cardiac Studies Cardiac Studies, [facility] 132 [facility] [place] [address] Health Maintenance Due Date Last Done Comments Zoster Vaccines (2 of 3) 07/17/2007 05/22/2007 COVID-19 Vaccine ( season) 2022 12/26/2021, 02/14/2021, 06/09/2020, Additional history exists DXA Scan 02/14/2023 02/14/2021, 09/2020, 07/02/2017, Additional history exists Albumin/Creatinine Ratio 06/09/2023 06/08/2022, 05/11 GFR 11/13/2023 05/13/2023, 05/2023, 05/11/2023, Additional history exists Depression Screening 04/02/2024 04/02/2023 TSH 05/09/2024 05/10/2023, 04/11, 04/15/2023, Additional history exists CKD HGB USE SMARTSET 91657 05/12/202405/12, 05/13/2023, 05/12/2023, Additional history exists CKD PHOS USE SMARTSET 27920 05/12/202406/2023, 05/12/2023, 05/10/2023, Additional history exists DTaP,Tdap,and Td Vaccines (2 - Td or Tdap) 08/14/2024 08/14/2014, 01/25/2000 Pneumococcal Vaccine: 65+ Years Completed 01/06/2015, 08/19/2007 VITAMIN D LEVEL ONCE IN A LIFETIME-USE SMARTSET# 04850 Completed 12/11/2018, 07/07/2018, 10/06/2010 Influenza Vaccine (FLU [...] this encounter Medical Devices Implanted Type Area Bee Rancher Device Identifier Shelf Expiration Date Model / Serial / Lot Higbee Pacemaker-12/05 Implanted:Qty: 1 on 12/05/2022 ICD Chest [employer] : CARDIAC SURGERY 09/02/2025 [id number] / / . Lead-12/05/2022 Implanted:Qty: 2 on 12/05/2022 Lead Chest [employer] : CARDIAC SURGERY 10/28/2025 5076 AND 3830 / / . Balloon Cath Pacing [id number] - [id number] Implanted:Qty: 1 on 09/20/2020 at [facility] : MEDICAL [id number] 07/08/2022 520 007P / / [id number] Proglide Perclose 08869-25 X10 - [id number] Implanted:Qty: 1 on 09/20/2020 at [facility] : VASCULAR DEVICES [id number] 06/08/2022 54813-60 / / [id number] Valve Bg 3 Ultra 23mm - [id number] Implanted:Qty: 1 on 09/20/2020 by Dimitri Maya MD at [facility] [employer] [id number] 09/22/2022 [id number] / / . Lead Tempo Temp Pacing - [id number] Implanted:Qty: 1 on 09/20/2020 at [facility] [employer] [id number] 06/28/2021 [id number] / / [id number] documented as of this encounter Additional Health Concerns Infection Onset Date Last Indicated Resolved Time C. difficile 05/12/2023 05/12/2023 documented as of this encounter Advance Directives Latest Code Status on File Code Status Date Activated Date Inactivated Comments No Code 05/10/2023 11:00 PM This order reflects the patients wishes [...] the patient have Health Care Power of Fire Engineer? No Full Code 09/25/2020 6:44 PM 09/26/2020 6:50 PM This order reflects the patients wishes and were consensually agreed upon. Care Teams Wind Farm Engineer Relationship Specialty Start Date End Date Kalen Ribeior MD [address] [place] [address] PCP - General 12/15/01 documented as of this encounter
--- OUTSIDE RECORDS SUMMARY | 2023-06-01 11:09 | External Medical Summary ---
Author Name Unknown Address Unknown Organization [id number]:[facility] [place] [address] [facility] [address] Laboratory Report Ordering Provider Test Date Status GLORIA WONG 05/10/2023 21:46:29 Final SCREENING Observation Date Value Abnormality Reference (Units ) Status SARS Coronavirus 2 05/10/2023 21:46:29 Negative N egative Final 2019 Novel Coronavirus not d etected.

This express test was developed and its performance characteristics determined by [facility]. It has not been cleared or approved [...] (RT-PCR) test, or a Centers for Disease Control-acceptable equivalent. The test is performed in a high complexity Clinical Laboratory Improvement Amendments-(CLIA) certified laboratory. The test is acceptable for SARS-CoV-2 diagnosis, surveillance, and travel within the [place] and to most countries. Please check with local testing authorities about requirements before travel.

The validation of bronchial specimens, tracheal aspirates, and sputum for this assay was developed and performance characteristics determined by [facility]. The validation of alternate specimen types has not been cleared or approved by the U.S. Food and Drug Administration (FDA). It has been determined that such clearance is not necessary. Performing Location [facility] [place] [address] [facility] [address]
--- OUTSIDE RECORDS SUMMARY | 2023-06-01 11:09 | External Medical Summary ---
Author Name Unknown Address Unknown Organization [id number]:[facility] [place] [facility] [address] [place] [address] Laboratory Report Ordering Provider Test Date Status LORIE DOUGLAS 05/11/2023 05:41:00 Final Observation Date Value Abnormality Reference (Units ) Status [place] light chains, Free, Serum 05/11/2023 05:41:00 46.00 Above high normal 3.30-19.40 (mg/L) Final Lambda light chains, free, Serum 05/11/2023 05:41:00 49.88 Above high normal 5.71-26.30 (mg/L) Final KAPPA LAMBDA [facility] RATIO 05/11/2023 05:41:00 0.92 0.26-1.65 Final Performing Location [facility] [place] [address]
--- OUTSIDE RECORDS SUMMARY | 2023-06-01 11:09 | External Medical Summary ---
Author Name Unknown Address Unknown Organization [id number]:LABORATORY [facility] [place] [place] - [address] [place] [address] Laboratory Report Ordering Provider Test Date Status LORIE DOUGLAS 05/11/2023 05:41:00 Final Observation Date Value Abnormality Reference (Units ) Status Lactic Acid 05/11/2023 05:41:00 1.6 0.4-2.0 (mmol/L) Final Performing Location LABORATORY [facility] - [address] [place] [address]
--- OUTSIDE RECORDS SUMMARY | 2023-06-01 11:09 | External Medical Summary ---
Author Name Unknown Address Unknown Organization [id number]:LABORATORY [facility] [place] - [address] [place] [address] Laboratory Report Ordering Provider Test Date Status BREE TORRES 05/12/2023 04:48:00 Final Observation Date Value Abnormality Reference (Units ) Status Phosphate 05/12/2023 04:48:00 1.7 Below low normal 2.5 -4.8 (mg/dL) Final Performing Location LABORATORY [facility] - [address] [place] [address]
--- OUTSIDE RECORDS SUMMARY | 2023-06-01 11:09 | External Medical Summary ---
Author Name Unknown Address Unknown Organization [id number]:LAB[facility]ORY [facility] [place] - [address] [place] [address] Laboratory Report Ordering Provider Test Date Status LORIE DOUGLAS 05/11/2023 05:41:00 Final Observation Date Value Abnormality Reference (Units ) Status BUN 05/11/2023 05:41:00 18 6-20 (mg/dL) Final Creatinine 05/11/2023 05:41:00 1.0 0.5-1.0 (mg/dL) Final Glomerular filtration rate/1.73 sq M.predicted [Volume Rate/Area] in Serum, Plasma or Blood by Creatinine-based formula (CKD-EPI) 05/11/2023 05:41:00 59 Below low normal >=60 (mL/min) Final eGFR is calculated based on the CKD-EPI 2020 equation SODIUM 05/11/2023 05:41:00 138 135-146 (m mol/L) Final Potassium 05/11/2023 05:41:00 3.5 3.5-5.1 (m mol/L) Final Cl 05/11/2023 05:41:00 101 98-107 (mm ol/L) Final CO2 05/11/2023 05:41:00 22 22-32 (mmo l/L) Final Anion gap 05/11/2023 05:41:00 15 7-15 (mmol /L) Final Glucose 05/11/2023 05:41:00 96 70-120 (mg /dL) Final Calcium 05/11/2023 05:41:00 7.8 Below low normal 8.4 -10.2 (mg/dL) Final Performing Location LAB[facility]ATORY [facility] [place] - [address] [place] [address]
--- OUTSIDE RECORDS SUMMARY | 2023-06-01 11:09 | External Medical Summary | Summary of Care ---
Author Name Unknown Organization [facility] Address [address] [place] [address] Phone [phone] Care Team Providers Care Arts Education Teacher Name Role Phone Kalen Ribeiro MD Primary Care Provider [phone]- [phone] Reason for Visit * Auth/Cert Specialty Diagnoses / Procedures Referred By Nithin regan Referred To Contact [facility] [address] [place] [address] Phone: [phone] Emergency Medicine [facility] [address] [place] [address] Referral ID Status Reason Start Date Expiration Date Visits Re quested Visits Authorized [id number] Encounter Details Date Type Department Care Team (Latest Contact Info) Description 05/12/2023 10:29 AM EST - 05/12/2023 11:59 PM EST Hospital Encounter Cardiac Studies [facility] [address] [place] [address] Discharge Disposition: Home - Self Care Allergies [...] Active Problems Problem Noted Date Diagnosed Date 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 Neutrophilia 05/11/2023 [...] aorta 07/14/2021 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 [...] 30 Mcg, IM, 12 yrs and above (IncreaseCard) 12/26/2021 Pneumococcal Conjugate Vacc, 13 Valent (Prevnar) [...] Description 05/17/2023 11:00 AM EST [facility] [address] [facility] [place] [address] Ciara Mac RDN 132 [facility] [place] [address] 06/18/2023 4:00 PM EDT Office Visit Hematology/Oncology [facility] [address] [facility] [place] [phone] Rigoberto Aguilera MD [address] [facility] [place] [address] 06/28/2023 8:00 AM EDT Office Visit [facility] [address] [place] [phone] Kalen Ribeiro MD [address] [place] [address] 08/01/2023 3:00 PM EDT Office Visit Orthopaedics [facility] [address] [facility] [place] [address] Chava Huff PA-C [address] [facility] [place] [address] 08/08/2023 2:20 PM EDT Office Visit Otolaryngology/Head & Neck/Facial Plastic Surgery [address] [place] [address] Joesph Yun MD [address] [place] [place] [address] 09/02/2023 9:00 AM EDT Office Visit Cardiology, [facility] [address] [facility] [place] [address] Halley Preston CRNP [address] [place] [address] 10/01/2023 10:30 AM EDT Rehab Services Voice Lab, [facility] [address] [facility] [place] [address] Lance Samuels, [facility] [address] [place] [address] 10/01/2023 11:00 AM EDT Appointment Radiology, [address] [phone] 02/10/2024 10:00 AM EST Cardiac Studies Cardiology, [facility] [address] [place] [address] [facility] [address] [place] [address] 02/13/2024 8:15 AM EST Cardiac Studies Cardiac Studies, [facility] [address] [place] [address] Health Maintenance Due Date Last Done Comments Zoster Vaccines (2 of 3) 07/17/2007 05/22/2007 COVID-19 Vaccine ( season) 2022 12/26/2021, 02/14/2021, 06/09/2020, Additional history exists DXA Scan 02/14/2023 02/14/2021, 09/2020, 07/02/2017, Additional history exists Albumin/Creatinine Ratio 06/09/2023 06/08/2022, 05/11 GFR 11/13/2023 05/13/2023, 05/2023, 05/11/2023, Additional history exists Depression Screening 04/02/2024 04/02/2023 TSH 05/09/2024 05/10/2023, 04/11, 04/15/2023, Additional history exists CKD HGB USE SMARTSET 48096 05/12/202405/12, 05/13/2023, 05/12/2023, Additional history exists CKD PHOS USE SMARTSET 92702 05/12/2024 03/0 06/2023, 05/12/2023, 05/10/2023, Additional history exists DTaP,Tdap,and Td Vaccines (2 - Td or Tdap) 08/14/2024 08/14/2014, 01/25/2000 Pneumococcal Vaccine: 65+ Years Completed 01/06/2015, 08/19/2007 VITAMIN D LEVEL ONCE IN A LIFETIME-USE SMARTSET# [id number] Completed 12/11/2018, 07/07/2018, 10/06/2010 Influenza Vaccine (FLU [...] this encounter Medical Devices Implanted Type Area Basket Turner Device Identifier Shelf Expiration Date Model / Serial / Lot Molly Pacemaker-12/05 Implanted:Qty: 1 on 12/05/2022 ICD Chest [employer] : CARDIAC SURGERY 09/02/2025 [id number] / / . Lead-12/05/2022 Implanted:Qty: 2 on 12/05/2022 Lead Chest [employer] : CARDIAC SURGERY 10/28/2025 [id number] [id number] / / . Balloon Cath Pacing [id number] - [id number] Implanted:Qty: 1 on 09/20/2020 at [facility] : MEDICAL [id number] 07/08/2022 [id number] / / [id number] Proglide Perclose 69133-44 X10 - [id number] Implanted:Qty: 1 on 09/20/2020 at [facility] : VASCULAR DEVICES [id number] 06/08/2022 [id number] / / [id number] Valve Bg 3 Ultra 23mm - [id number] Implanted:Qty: 1 on 09/20/2020 by Dimitri Maya MD at [facility] [employer] [id number] 09/22/2022 [id number] / / . 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 Sick sinus syndrome (HCC) Sinoatrial node dysfunction Other giant cell arteritis (HCC) 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 difficile Rule-Out 05/12/2023 05/12/20232023 6:37 PM [...] the patient have Health Care Power of Knitting Machine Operator? No Full Code 09/25/2020 6:44 PM 09/26/2020 6:50 PM This order reflects the patients wishes and were consensually agreed upon. Care Teams Arts Education Teacher Relationship Specialty Start Date End Date Kalen Ribeiro MD [address] [place] [address] PCP - General 12/15/01 documented as of this encounter
--- OUTSIDE RECORDS SUMMARY | 2023-06-01 11:09 | External Medical Summary ---
Author Name Unknown Address Unknown Organization K01:LABORATORY [facility] [address] [facility] [address] Laboratory Report Ordering Provider Test Date Status BREE TORRES 05/14/2023 05:38:00 Final Observation Date Value Abnormality Reference (Units ) Status BUN 05/14/2023 05:38:00 14 6-20 (mg/dL) Final Creatinine 05/14/2023 05:38:00 0.9 0.5-1.0 (mg/dL) Final Glomerular filtration rate/1.73 sq M.predicted [Volume Rate/Area] in Serum, Plasma or Blood by Creatinine-based formula (CKD-EPI) 05/14/2023 05:38:00 62 >=60 (mL/min) Final eGFR is calculated based on the CKD-EPI 2020 equation SODIUM 05/14/2023 05:38:00 136 135-146 (m mol/L) Final Potassium 05/14/2023 05:38:00 3.8 3.5-5.1 (m mol/L) Final Cl 05/14/2023 05:38:00 103 98-107 (mm ol/L) Final CO2 05/14/2023 05:38:00 23 22-32 (mmo l/L) Final Anion gap 05/14/2023 05:38:00 10 7-15 (mmol /L) Final Glucose 05/14/2023 05:38:00 109 70-120 (mg /dL) Final Calcium 05/14/2023 05:38:00 7.9 Below low normal 8.4 -10.2 (mg/dL) Final Performing Location LABORATORY [facility] - [address] [place] [address]
--- OUTSIDE RECORDS SUMMARY | 2023-06-01 11:09 | External Medical Summary | Summary of Care ---
Author Name Unknown Organization [facility] Address [address] [place] [address] Phone [phone] Care Team Providers Care Email Operations Manager Name Role Phone Kalen Ribeiro MD Primary Care Provider +1- [phone] Reason for Visit * Reason Comments Re-Check Poor appetite- discu ss options Encounter Details Date Type Department Care Team (Late st Contact Info) Description 05/10/2023 2:00 PM EST [facility] Visit [facility] [address] [place] [address] Kalen Ribeiro MD [address] [place] [address] Severe protein-calorie malnutrition (HCC)*; Loss of weight; Hypokalemia; Leukocytosis, unspecified type; Thrombocytosis; Vocal cord paresis; Chronic kidney disease, stage 3a (HCC); Acquired hypothyroidism; Atrial fibrillation, unspecified type (HCC) Allergies Active Allergy Reactions Criticality Noted Date Comments Heparin 10/07/2020 Concern for HIT documented as of this encounter (statuses as of 05/10/2023) Medications Medication Sig Dispensed Refills Start Date End Date Status VITAMIN B-12 500 MCG OR TABS 2 Tablets. 0 04/26/2003 Active DORZOLAMIDE HCL-TIMOLOL MAL 22.3-6.8 MG/ML OP SOLN Instill 1 Drop into eye in the morning and 1 Drop before bedtime. 0 01/01/2013 Active Acetaminophen ER 650 MG Oral Tablet Extended Release Take 1 Tablet by mouth every 8 hours as needed for Pain, Mild. 0 Active Aspirin 81 MG Oral Tablet Chewable Take 1 Tab by mouth daily. 30 Tab 3 10/05/2020 Active Biotin 5 MG Oral Capsule Take 2 Capsules by mouth in the morning. 0 Active Rocklatan 0.02-0.005 % Ophthalmic Solution (Netarsudil-Latanop marcus) Instill into eye . 0 Active Furosemide 20 MG Oral Tablet (Lasix) TAKE ONE TABLET BY MOUTH DAILY 90 Tablet 3 04/13/2022 Active Additional Information Patient not taking.Reported on 05/10/2023 Levothyroxine Sodium 100 MCG Oral Tablet (Levoxyl)Indication [...] per day. 90 Tablet 1 04/30/2023 Active Sertraline HCl 25 MG Oral Tablet (Zoloft) Take 1 Tablet by mouth in the morning. 30 Tablet 5 05/08/2023 Active documented as of this encounter (statuses as of 05/10/2023) Active Problems Problem Noted Date Diagnosed Date Anorexia 04/15/2023 Leukocytosis 04/15/2023 Oropharyngeal dysphagia 03/18/2023 [...] aorta 07/14/2021 Atherosclerotic heart diseas e of [place] coronary artery with other forms of angina pectoris 07/14/2021 Age-related osteoporosis wit hout current pathological fracture 07/14/2021 History of pulmonary embolism 06/08/2021 Malnutrition of moderate degree 10/24/2020 History of pericarditis 10/02/2020 Generalized weakness [...] as of this encounter (statuses as of 05/10/2023) Resolved Problems Problem Noted Date Diagnosed Date [...] as of this encounter (statuses as of 05/10/2023) Immunizations Name Administration Dates Next Due COVID-19 [...] Sign Reading Time Taken Comments Blood Pressure 106/60 05/10/2023 2:01 PM EST Pulse 76 05/10/2023 2:01 PM EST Temperature 36.2 C (97.1 F) 05/10/2023 2:01 PM ES T Respiratory Rate 16 05/10/2023 2:01 PM EST Oxygen Saturation 94% 05/10/2023 2:01 PM EST Inhaled Oxygen Concentration - - Weight 44.8 kg (98 lb 12.8 oz) 05/10/2023 2:01 P M EST Height 144.8 cm (4' 9") 05/10/2023 2:01 PM EST Body Mass Index 21.38 05/10/2023 2:01 PM EST documented in this encounter Functional [...] Progress Notes * Kalen Ribeiro MD - 05/10/2023 4:11 PM EST Subjective: Marie Nieves is a 83 year old female here today for Chief Complaint Patient presents with Re-Check Poor appetite- discuss options Patient presents to the clinic today for follow-up with her daughter. Patient was seen in early March with the sudden inability to swallow solid food. 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 She had an MRI scan of the brain, EGD, CT scan of the neck in the workup without concerning findings. She has seen some improvement in her ability to swallowbut unfortunately has not been taking in oral solid food or liquids. She states she has lost her appetite and the smell and taste of food prevents her from eating it. She had been admitted to [facility] 04/15/23 with elevated wbc and weakness. Admitting diagnosis was sepsis. Cultures and studies did not reveal any definitive underlying infection. Her white blood cell count did improve slightly which may have related to rehydration. Her white blood cell count has continued to be elevated since that admission. Has also had difficulties with hypokalemia, diarrhea, progressive weakness. CBChas shown persistent leukocytosis, thrombocytosis, anemia. She has been set up to see Hematology but it is not until next month and has been set up to see nutrition but it is not for a week. Daughterreports that she has essentially not eaten anything in the last week. She takes a few sips of waterwith her medications and that is about it. There are some med she has not been able to swallow. Sheis declining rather rapidly. Past Medical History: Diagnosis Date Closed fracture [...] performed by Andrew Dudley MD at ENDOSCOPY [facility] COLONOSCOPY, DIAGNOSTIC (RECTUM) 06/20/2017 adenomatous polyp, diverticulosis/COLONOSCOPY FLEXIBLE PROXIMAL DIAGNOSTIC performed by Andrew Dudley MD at ENDOSCOPY [facility] DEXA SCAN/BONE MINERAL AXIAL 2006 osteoporosis, repeat 2 years DILATION AND CURETTAGE (D&C) 1979' unsure why ECHO (2-D COMPLETE) 10/12 Mild LVH, aortic scler - no stenosis EGD, FLEXIBLE, DIAGNOSTIC N/A 04/05/2023 ESOPHAGOGASTRODUODENOSCOPY (EGD), FLEXIBLE, TRANSORAL, DIAGNOSTIC performed by Manjit Webb MD at OR [facility] FRACTURE NOS 10/12 L Tibial Plateau ORIF LIGATE/CUT OVIDUCT(S) LIGATION/BIOPSY OF TEMPORAL ARTERY Left 06/18/2016 06/18/2016 left temportal artery bx dx benign - [facility] Dr. Garcia LUMBAR / SACRAL EPIDURAL, SINGLE LEVEL 10/04/2015 INJECTION TRANSFORAMINAL EPIDURAL LUMBAR OR SACRAL performed by David Costello DO at [facility] LUMBAR / SACRAL EPIDURAL, SINGLE LEVEL 10/25/2015 INJECTION TRANSFORAMINAL EPIDURAL LUMBAR OR SACRAL performed by David Costello DO at [facility] MISCELLANEOUS ORDER (HS ONLY) 12/15 excision lipoma forehead REPLACE AORTIC VALVE, PERCUTANEOUS FEMORAL N/A 09/20/2020 REPLACE AORTIC VALVE, PERCUTANEOUS FEMORAL performed by Dimitri Maya MD at [facility] REPLACE AORTIC VALVE, PERCUTANEOUS FEMORAL N/A 09/20/2020 REPLACE AORTIC VALVE, PERCUTANEOUS FEMORAL performed by Alexys Almazan MD, PhD at [facility] TOTAL ABD HYSTERECTOMY W/WO REMOVAL OF TUBE(S) [...] Rocklatan 0.02-0.005 % Ophthalmic Solution (Netarsudil-Latanoprost) Instill into eye . Levothyroxine Sodium 100 MCG Oral Tablet (Levoxyl) [...] then once per day. 90 Tablet 1 Sertraline HCl 25 MG Oral Tablet (Zoloft) Take 1 Tablet by mouth in the morning. 30 Tablet 5 VITAMIN B-12 500 MCG OR TABS 2 Tablets. (Patient not taking: Reported on 05/10/2023) 0 Biotin 5 MG Oral Capsule Take 2 Capsules by mouth in the morning. (Patient not taking: Reported on 05/10/2023) Furosemide 20 MG Oral Tablet (Lasix) TAKE ONE TABLET BY MOUTH DAILY (Patient not taking: Reported on 05/10/2023) 90 Tablet 3 No current facility-administered medications for this visit. Objective: BP 106/60 | Pulse 76 | Temp 36.2 C (97.1 F) (Temporal Artery) | Resp 16 | Ht 1.448 m(4' 9") | Wt 44.8 kg (98 lb 12.8 oz) | SpO2 94% | BMI 21.38 kg/m | BSA 1.34 m GEN: Cachectic and weak. Voice is very weak. HEENT: TM's clear. Op - brown tongue. No lesions. NECK: Supple with no LAD, TM, JVD CHEST: CTA B - no current wheeze, rhonchi, rales. CV: Irreg, rate controlled. ABD: Soft, NT/ND, No HSM, NABS EXT: No c,c,e Assessment and Plan: Severe protein-calorie malnutrition (HCC) (Primary) Loss of weight Hypokalemia Leukocytosis, unspecified type Thrombocytosis Vocal cord paresis Chronic kidney disease, stage 3a (HCC) Acquired hypothyroidism Atrial fibrillation, unspecified type (HCC) -patient has been progressively declining. Has not been able to eat in the last week. Has lab abnormalities including hypokalemia, leukocytosis, thrombocytosis. Is not safe to be at home. Is not ableto take care of herself. The real concern is if she would be able to survive to make it to her nextspecialty appointments. Suggest emergency department evaluation today for repeat labs and strong con sideration for admission to the hospital for IV fluids, nutrition, hematology consultation, nutrition consultation, therapy evaluations, correction of electrolyte abnormalities, investigation into elevated white blood cell count, possible palliative care consultation, disposition planning. Pt and daughter in favor of ED eval and plan to go to [facility]. 35 min with pt and documentation Kalen Ribeiro MD documented in this encounter Nursing Notes * Claire Begum LPN - 05/10/2023 2:01 PM EST The patient has been properly identified by confirmation of name and date of . Chief Complaint Patient presents with Re-Check Poor appetite- discuss options documented in this encounter Plan of Treatment Upcoming Encounters Date Type Department Care Team (Late st Contact Info) Description 05/17/2023 11:00 AM EST Nutrition Services Nutrition, [facility] [address] [facility] [place] [address] Ciara Mac RDN [address] [place] [address] 06/18/2023 4:00 PM EDT Office Visit Hematology/On[facility] [address] [place] [address] Rigoberto Aguilera MD [address] [place] [address] 06/28/2023 8:00 AM EDT [facility] Visit [facility] [address] [place] [phone] Kalen Ribeiro MD [address] [place] [address] 08/01/2023 3:00 PM EDT Office Visit Orthopaedics [facility] [address] [facility] [place] [address] Chava Huff PA-C [address] [facility] [place] [address] 08/08/2023 2:20 PM EDT Office Visit Otolaryngology/Head & Neck/Facial Plastic Surgery [address] [place] [address] Joesph Yun MD [address] [place] [address] 09/02/2023 9:00 AM EDT Office Visit Cardiology, [facility] [address] [place] [address] Halley Preston CRNP [address] [place] [address] 10/01/2023 10:30 AM EDT Rehab Services Voice Lab, [address] [place] [id number] Lance Samuels, [employer] INSPECTOR [address] [place] [address] 10/01/2023 11:00 AM EDT Appointment Radiology, [facility] [address] [place] [address] 02/10/2024 10:00 AM EST Cardiac Studies Cardiology, [facility] [address] [facility] [place] [address] [place], [facility] [address] [facility] [place] [address] 02/13/2024 8:15 AM EST Cardiac Studies Cardiac Studies, [facility] [address] [facility] [place] [address] Health Maintenance Due Date Last Done Comments Zoster Vaccines (2 of 3) 07/17/2007 05/22/2007 COVID-19 Vaccine ( season) 2022 12/26/2021, 02/14/2021, 06/09/2020, Additional history exists DXA Scan 02/14/2023 02/14/2021, 09/2020, 07/02/2017, Additional history exists Albumin/Creatinine Ratio 06/09/2023 06/08/2022, 05/11 GFR 11/01/2023 05/03/2023, 04/11, 04/17/2023, Additional history exists Depression Screening 04/02/2024 04/02/2023 CKD PHOS USE SMARTSET 54956 04/17/202409/2023, 04/16/2023, 04/15/2023, Additional history exists TSH 04/23/2024 04/23/2023, 07/2023, 12/25/2022, Additional history exists CKD HGB USE SMARTSET 06784 05/03/202405/03, 05/03/2023, 04/23/2023, Additional history exists DTaP,Tdap,and Td Vaccines (2 - Td or Tdap) 08/14/2024 08/14/2014, 01/25/2000 Pneumococcal Vaccine: 65+ Years Completed 01/06/2015, 08/19/2007 VITAMIN D LEVEL ONCE IN A LIFETIME-USE SMARTSET# [id number] Completed 12/11/2018, 07/07/2018, 10/06/2010 Influenza Vaccine (FLU [...] this encounter Medical Devices Implanted Type Area Supervisor Receiving And Processing Device Identifier Shelf Expiration Date Model / Serial / Lot [place] Pacemaker-12/05 Implanted:Qty: 1 on 12/05/2022 ICD Chest [employer] : CARDIAC SURGERY 09/02/2025 [id number] / / . Lead-12/05/2022 Implanted:Qty: 2 on 12/05/2022 Lead Chest [employer] : CARDIAC SURGERY 10/28/2025 [id number] AND 3830 / / . Balloon Cath Pacing [id number] - [id number] Implanted:Qty: 1 on 09/20/2020 at [facility] : MEDICAL [id number] 07/08/2022 520 [id number] / / [id number] Proglide Perclose 93075-53 X10 - [id number] Implanted:Qty: 1 on 09/20/2020 at [facility] : VASCULAR DEVICES [id number] 06/08/2022 55207-32 / / [id number] Valve Bg 3 Ultra 23mm - [id number] Implanted:Qty: 1 on 09/20/2020 by Dimitri Maya MD at [facility] [employer] [id number] 09/22/2022 [id number] / / . 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 No Full Code 09/25/2020 6:44 PM 09/26/2020 6:50 PM This order reflects the patients wishes and were consensually agreed upon. Full Code 09/20/2020 12:16 PM 09/21/2020 4:48 PM This order reflects the patients wishes and were consensually agreed upon. Question Answer Comments Discussion of Advance Directives occurred with: Patient Does the patient have a Living Will? No Does the patient have Health Care Power of Recoverer? No Care Teams Email Operations Manager Relationship Specialty Start Date End Date Kalen Ribeiro MD [address] [place] [facility] [place] [address] PCP - General 12/15/01 documented as of this encounter
--- OUTSIDE RECORDS SUMMARY | 2023-06-01 11:09 | External Medical Summary ---
Author Name Unknown Address Unknown Organization K01:LAB[facility]ATORY [facility] [place] [address] [place] [address] Laboratory Report Ordering Provider Test Date Status LORIE DOUGLAS 05/11/2023 12:42:51 Final Normal: <150 mg/ g creatinine
High: 150-500 mg/g creatinine
Very High: >500 mg/g creatinine
Nephrotic: >3000 mg/g creatinine Observation Date Value Abnormality Reference (Units ) Status Protein/Creatinine [Ratio] in Urine 05/11/2023 12:42:51 356 Above high normal <150 (mg/g ) Final Protein, Urine 05/11/2023 12:42:51 32 (mg/dL) Final Creatinine, Urine 05/11/2023 12:42:51 90 (mg/dL) Final Performing Location LAB[facility] [place] [address] [place] [address]
--- OUTSIDE RECORDS SUMMARY | 2023-06-01 11:09 | External Medical Summary ---
Author Name Unknown Address Unknown Organization : Laboratory Report Ordering Provider Test Date Status MARTHA CANTRELL 05/10/2023 21:43:43 Final Observation Date Value Abnormality Reference (Units ) Status Glucose Point of Care 05/10/2023 21:43:43 109 70-120 (mg/dL) Final Performing Location
--- OUTSIDE RECORDS SUMMARY | 2023-06-01 11:09 | External Medical Summary ---
Author Name Unknown Address Unknown Organization [id number]:LABORATORY [facility] [place] - [address] [facility] [address] Laboratory Report Ordering Provider Test Date Status LORIE DOUGLAS 05/13/2023 04:09:00 Final Observation Date Value Abnormality Reference (Units ) Status SYNC LEUKOCYTES IN BLOOD BY AUTOMATED COUNT 05/13/2023 04:09:00 18.59 Above high normal 4.00-10.80 (K/uL) Final Segs 05/13/2023 04:09:00 88.6 Above high normal 40.0-75.0 (%) Final Lymphs % 05/13/2023 04:09:00 3.7 Below low normal 18.0-42.0 (%) Final Monos 05/13/2023 04:09:00 3.9 1.0-11.0 (%) Final Eosinophils 05/13/2023 04:09:00 2.5 0.0-6.0 (%) Final Basos 05/13/2023 04:09:00 0.5 0.0-2.0 (%) Final Immature Granulocyte, Percent 05/13/2023 04:09:00 0.8 0.0-2.0 (%) Final Absolute Segs 05/13/2023 04:09:00 16.47 Above high normal 1.80-7.70 (K/uL) Final Lymphs, absolute 05/13/2023 04:09:00 0.69 Below low normal 1.00-4.80 (K/ul) Final Monos, Abs 05/13/2023 04:09:00 0.72 0.00-1.10 (K/uL) Final Eos, Abs 05/13/2023 04:09:00 0.47 0.00-0.70 (K/uL) Final Basos, Abs 05/13/2023 04:09:00 0.10 0.00-0.20 (K/uL) Final Immature Granulocytes, Number 05/13/2023 04:09:00 0.14 0.00-0.20 (K/uL) Final Performing Location LAB[facility]ORY [facility] [place] - [facility] [address] [facility] [address]
--- OUTSIDE RECORDS SUMMARY | 2023-06-01 11:09 | External Medical Summary ---
Author Name Unknown Address Unknown Organization [id number]:[facility]ATORY [facility] [place] - [facility] [address] [place] [address] Laboratory Report Ordering Provider Test Date Status LORIE DOUGLAS 05/11/2023 05:41:00 Final Observation Date Value Abnormality Reference (Units ) Status WBC, Total 05/11/2023 05:41:00 22.41 Above high normal 4.00-10.80 (K/uL) Final RBC 05/11/2023 05:41:00 3.48 3.85-5.15 (M/uL) Final Hemoglobin 05/11/2023 05:41:00 10.5 Below low normal 12.0-15.3 (g/dL) Final HCT 05/11/2023 05:41:00 33.1 Below low normal 36.0-45.2 (%) Final MCV 05/11/2023 05:41:00 95.1 81.5-97.5 (fL) Final MCH 05/11/2023 05:41:00 30.2 27.0-34.0 (pg) Final MCHC 05/11/2023 05:41:00 31.7 32.0-36.0 (g/dL) Final RDW 05/11/2023 05:41:00 13.8 11.5-15.5 (%) Final Platelets 05/11/2023 05:41:00 314 140-400 (K/uL) Final MPV 05/11/2023 05:41:00 9.4 6.6-11.1 (fL) Final Nucleated erythrocytes/100 leukocytes [Ratio] in Blood by Automated count 05/11/2023 05:41:00 0 <=0 (/100 WBCs) Final Performing Location LABORATORY [facility] [place] - [address] [place] [address]
--- OUTSIDE RECORDS SUMMARY | 2023-06-01 11:09 | External Medical Summary ---
Author Name Unknown Address Unknown Organization K01:LABORATORY C - [address] [place] [address] Laboratory Report Ordering Provider Test Date Status BREE TORRES 05/14/2023 05:38:00 Final Observation Date Value Abnormality Reference (Units ) Status Magnesium 05/14/2023 05:38:00 1.7 1.5-2.6 (m g/dL) Final Performing Location [facility]ORY [facility] - [address] [place] [address]
--- OUTSIDE RECORDS SUMMARY | 2023-06-01 11:09 | External Medical Summary ---
Author Name Unknown Address Unknown Organization [id number]:LABORATORY [facility] - [address] [place] [address] Laboratory Report Ordering Provider Test Date Status LORIE DOUGLAS 05/10/2023 23:47:00 Final Observation Date Value Abnormality Reference (Units ) Status LDH 05/10/2023 23:47:00 267 Above high normal <= 250 (U/L) Final Performing Location LAB[facility]ATORY [facility] - [address] [place] [address]
--- OUTSIDE RECORDS SUMMARY | 2023-06-01 11:09 | External Medical Summary ---
Author Name Unknown Address Unknown Organization [id number]:LABORATORY [facility] [place] - [address] [place] [address] Laboratory Report Ordering Provider Test Date Status LORIE DOUGLAS 05/10/2023 23:47:00 Final Observation Date Value Abnormality Reference (Units ) Status Iron 05/10/2023 23:47:00 17 Below low normal 33-151 (ug/dL) Final Iron-binding capacity 05/10/2023 23:47:00 96 Below low normal 250-425 (ug/dL) Final Transferrin Sat % 05/10/2023 23:47:00 18 15-55 (%) Final Performing Location LABORATORY C - [address] [place] [address]
--- OUTSIDE RECORDS SUMMARY | 2023-06-01 11:09 | External Medical Summary ---
Author Name Unknown Address Unknown Organization [id number]:LABORATORY [facility] [place] - [address] [facility] [address] Laboratory Report Ordering Provider Test Date Status LORIE DOUGLAS 05/11/2023 05:41:00 Final Observation Date Value Abnormality Reference (Units) Status PARAPROTEIN NORMAL/ABNORMAL 05/11/2023 05:41:00 Normal Normal Final Protein 05/11/2023 05:41:00 5.0 Below low normal 6.0-8.3 (g/dL) Final Albumin/Protein.total [Pure mass fraction] in Serum or Plasma by Electrophoresis 05/11/2023 05:41:00 1.85 Below low normal 3.30-4.40 (g/dL) Final Alpha 1 globulin/Protein.tota l [Pure mass fraction] in Serum or Plasma by Electrophoresis 05/11/2023 05:41:00 0.35 Above high normal 0.10-0.30 (g/dL) Final Alpha 2 globulin/Protein.tota l [Pure mass fraction] in Serum or Plasma by Electrophoresis 05/11/2023 05:41:00 1.18 Above high normal 0.60-1.00 (g/dL) Final Beta globulin/Protein.tota l [Pure mass fraction] in Serum or Plasma by Electrophoresis 05/11/2023 05:41:00 0.72 Below low normal 0.80-1.30 (g/dL) Final Gamma globulin/Protein.tota l [Pure mass fraction] in Serum or Plasma by Electrophoresis 05/11/2023 05:41:00 0.89 0.70-1.70 (g/dL) Final Protein Fractions [Interpretation] in Serum or Plasma by Electrophoresis Narrative 05/11/2023 05:41:00 No paraprotein detected. Final Performing Location LABORATORY [facility] [place] - [address] [place] [address]
--- OUTSIDE RECORDS SUMMARY | 2023-06-01 11:09 | External Medical Summary ---
Author Name Unknown Address Unknown Organization K01:[place] [place] [address] [place] [id number] Laboratory Report Ordering Provider Test Date Status MANDY CANTRELLR 05/11/2023 12:42:51 Final Observation Date Value Abnormality Reference (Units) Status Bacteria identified in Specimen by Culture 05/11/2023 12:42:51 No significant growth Final Test: Culture, Urine, Quanti tative
Specimen Source: Urine, Clean Catch
Specimen Type: Urine
Specimen Date: 05/11/2023 12:42 PM
Result Date: 05/12/2023 10:55 AM
Result Status: Final result
Resulting Lab: [facility] [place]
[address]
[place] [address]

CULTURE

No significant growth

null Performing Location [facility] [place] [address] [facility] [address]
--- OUTSIDE RECORDS SUMMARY | 2023-06-01 11:09 | External Medical Summary ---
Author Name Unknown Address Unknown Organization K01:LABORATORY [facility] [place] - [facility] [address] [place] [address] Laboratory Report Ordering Provider Test Date Status LORIE DOUGLAS 05/12/2023 04:48:00 Final Observation Date Value Abnormality Reference (Units ) Status WBC, Total 05/12/2023 04:48:00 17.02 Above high normal 4.00-10.80 (K/uL) Final RBC 05/12/2023 04:48:00 3.31 3.85-5.15 (M/uL) Final Hemoglobin 05/12/2023 04:48:00 9.8 Below low normal 12.0-15.3 (g/dL) Final HCT 05/12/2023 04:48:00 31.2 Below low normal 36.0-45.2 (%) Final MCV 05/12/2023 04:48:00 94.3 81.5-97.5 (fL) Final MCH 05/12/2023 04:48:00 29.6 27.0-34.0 (pg) Final MCHC 05/12/2023 04:48:00 31.4 32.0-36.0 (g/dL) Final RDW 05/12/2023 04:48:00 14.0 11.5-15.5 (%) Final Platelets 05/12/2023 04:48:00 295 140-400 (K/uL) Final MPV 05/12/2023 04:48:00 9.1 6.6-11.1 (fL) Final Nucleated erythrocytes/100 leukocytes [Ratio] in Blood by Automated count 05/12/2023 04:48:00 0 <=0 (/100 WBCs) Final Performing Location LABORATORY [facility] [place] - [address] [place] [address]
--- OUTSIDE RECORDS SUMMARY | 2023-06-01 11:09 | External Medical Summary ---
Author Name Unknown Address Unknown Organization K01:LABORATORY C - [address] [place] [address] Laboratory Report Ordering Provider Test Date Status BREE TORRES 05/14/2023 05:38:00 Final Observation Date Value Abnormality Reference (Units ) Status Phosphate 05/14/2023 05:38:00 2.5 2.5-4.8 (m g/dL) Final Performing Location LAB[facility] - [address] [place] [address]
--- OUTSIDE RECORDS SUMMARY | 2023-06-01 11:09 | External Medical Summary ---
Author Name Unknown Address Unknown Organization K01:[facility]ORY [facility] [place] [facility] [address] [place] [address] Laboratory Report Ordering Provider Test Date Status LORIE DOUGLAS 05/11/2023 12:42:51 Final Observation Date Value Abnormality Reference (Units) Status PARAPROTEIN NORMAL/ABNORMAL 05/11/2023 12:42:51 Normal Normal Final Protein, Urine 05/11/2023 12:42:51 32 (mg/dL) Final Protein Fractions [Interpretation] in Urine by Electrophoresis Narrative 05/11/2023 12:42:51 Glomerular pattern, no paraprotein detected. Final Albumin, Urine 05/11/2023 12:42:51 6.9 (mg/dL) Final Globulin [Mass/volume] in Urine by Electrophoresis 05/11/2023 12:42:51 25.1 (mg/dL) Final Performing Location LAB[facility]ORY [facility] [place] [address] [place] [address]
--- OUTSIDE RECORDS SUMMARY | 2023-06-01 11:09 | External Medical Summary ---
Author Name Unknown Address Unknown Organization K01:LABORATORY [facility] [place] - [facility] [address] [place] [address] Laboratory Report Ordering Provider Test Date Status LORIE DOUGLAS 05/13/2023 04:09:00 Final Observation Date Value Abnormality Reference (Units ) Status WBC, Total 05/13/2023 04:09:00 18.59 Above high normal 4.00-10.80 (K/uL) Final RBC 05/13/2023 04:09:00 3.43 3.85-5.15 (M/uL) Final Hemoglobin 05/13/2023 04:09:00 10.3 Below low normal 12.0-15.3 (g/dL) Final HCT 05/13/2023 04:09:00 33.0 Below low normal 36.0-45.2 (%) Final MCV 05/13/2023 04:09:00 96.2 81.5-97.5 (fL) Final MCH 05/13/2023 04:09:00 30.0 27.0-34.0 (pg) Final MCHC 05/13/2023 04:09:00 31.2 32.0-36.0 (g/dL) Final RDW 05/13/2023 04:09:00 14.1 11.5-15.5 (%) Final Platelets 05/13/2023 04:09:00 313 140-400 (K/uL) Final MPV 05/13/2023 04:09:00 9.4 6.6-11.1 (fL) Final Nucleated erythrocytes/100 leukocytes [Ratio] in Blood by Automated count 05/13/2023 04:09:00 0 <=0 (/100 WBCs) Final Performing Location LABORATORY [facility] [place] - [address] [place] [address]
--- OUTSIDE RECORDS SUMMARY | 2023-06-01 11:09 | External Medical Summary ---
Author Name Unknown Address Unknown Organization K01:LABORATORY [facility] [place] - [address] [place] [id number] Laboratory Report Ordering Provider Test Date Status BREE TORRES 05/11/2023 19:42:40 Final Observation Date Value Abnormality Reference (Units) Status Bacteria identified in Specimen by Culture 05/11/2023 19:42:40 No Aeromonas species or Plesiomonas species isolated. Final Test: Gastrointestinal Patho gen Panel Culture
Specimen Source: Stool
Specimen Type: Stool
Specimen Date: 05/11/2023 7:42 PM
Result Date: 05/14/2023 9:08 AM
Result Status: Final result
Resulting Lab: LABORATORY [facility] [place]
[address]
[place] [id number]

CULTURE

No Aeromonas species or Plesiomonas species isolated.

null Performing Location LABORATORY [facility] [place] - [address] [place] [id number]
--- OUTSIDE RECORDS SUMMARY | 2023-06-01 11:09 | External Medical Summary ---
Author Name Unknown Address Unknown Organization K01:LABORATORY C - [address] [place] [address] Laboratory Report Ordering Provider Test Date Status BREE TORRES 05/11/2023 05:41:00 Final Observation Date Value Abnormality Reference (Units ) Status Haptoglobin 05/11/2023 05:41:00 374 Above high normal 30-200 (mg/dL) Final Performing Location LAB[facility] - [address] [place] [address]
--- OUTSIDE RECORDS SUMMARY | 2023-06-01 11:09 | External Medical Summary ---
Author Name Unknown Address Unknown Organization K01:LABORATORY [facility] [place] - 100 [facility] [place] [address] Laboratory Report Ordering Provider Test Date Status MARTHA CANTRELL 05/11/2023 12:42:51 Final Observation Date Value Abnormality Reference (Units) Status Color of Urine by Auto 05/11/2023 12:42:51 Light Yellow Colorless, Light Yellow, Yellow, Dark Yellow Final Clarity, Urine 05/11/2023 12:42:51 Clear Clear Final Glucose [Mass/volume] in Urine by Automated test strip 05/11/2023 12:42:51 Negative Negative (mg/dL) Final Bilirubin.total [Presence] in Urine by Automated test strip 05/11/2023 12:42:51 Negative Negative Final Ketones [Mass/volume] in Urine by Automated test strip 05/11/2023 12:42:51 Trace Abnormal Negative (mg/dL) Final Specific gravity, Urine 05/11/2023 12:42:51 1.043 Above high normal 1.003-1.030 Final Hemoglobin [Presence] in Urine by Automated test strip 05/11/2023 12:42:51 Trace Abnormal Negative Final pH, Urine 05/11/2023 12:42:51 5.5 5.0-7.5 (Units) Final Protein [Mass/volume] in Urine by Automated test strip 05/11/2023 12:42:51 30 Abnormal Negative (mg/dL) Final Urobilinogen [Mass/volume] in Urine by Automated test strip 05/11/2023 12:42:51 Normal Normal (mg/dL) Final Nitrite [Presence] in Urine by Automated test strip 05/11/2023 12:42:51 Negative Negative Final Leukocyte esterase [Presence] in Urine by Automated test strip 05/11/2023 12:42:51 Moderate Abnormal Negative Final RBC, Urine 05/11/2023 12:42:51 6-9 Abnormal 0-2 (/HPF) Final WBC, Urine 05/11/2023 12:42:51 30-49 Abnormal 0-2 (/HPF) Final Bacteria [#/area] in Urine sediment by Microscopy high power field 05/11/2023 12:42:51 101-150 Abnormal 0-25 (/HPF) Final Hyaline casts, Urine 05/11/2023 12:42:51 1-4 Abnormal None (/LPF) Final Leukocyte clumps [#/area] in Urine sediment by Microscopy high power field 05/11/2023 12:42:51 Present Abnormal None (/HPF) Final CULTURE, URINE - ISINGER 05/11/2023 12:42:51 Final Quantitative urine culture t o be performed Performing Location LABORATORY [facility] [place] - [address] [facility] [address]
--- OUTSIDE RECORDS SUMMARY | 2023-06-01 11:09 | External Medical Summary ---
Author Name Unknown Address Unknown Organization K01:LABORATORY [facility] - [address] [place] [address] Laboratory Report Ordering Provider Test Date Status BREE TORRES 05/13/2023 04:09:00 Final Observation Date Value Abnormality Reference (Units ) Status Magnesium 05/13/2023 04:09:00 1.9 1.5-2.6 (m g/dL) Final Performing Location LAB[facility] - [address] [place] [address]
--- OUTSIDE RECORDS SUMMARY | 2023-06-01 11:09 | External Medical Summary ---
Author Name Unknown Address Unknown Organization K01:LABORATORY [facility] - [address] [place] [address] Laboratory Report Ordering Provider Test Date Status BREE TORRES 05/13/2023 04:09:00 Final Observation Date Value Abnormality Reference (Units ) Status Phosphate 05/13/2023 04:09:00 3.1 2.5-4.8 (m g/dL) Final Performing Location LAB[facility] - [address] [place] [address]
--- OUTSIDE RECORDS SUMMARY | 2023-06-01 11:09 | External Medical Summary ---
Author Name Unknown Address Unknown Organization K01:[place] [facility] [place] [address] [place] [address] Laboratory Report Ordering Provider Test Date Status LORIE DOUGLAS 05/10/2023 23:47:00 Final Observation Date Value Abnormality Reference (Units ) Status Uric Acid 05/10/2023 23:47:00 6.2 Above high normal 2. 4-5.7 (mg/dL) Final Performing Location LABORATORY [facility] - [address] [place] [address]
--- OUTSIDE RECORDS SUMMARY | 2023-06-01 11:09 | External Medical Summary ---
Author Name Unknown Address Unknown Organization K01:LABORATORY [facility] [place] - [address] [facility] [address] Laboratory Report Ordering Provider Test Date Status LORIE DOUGLAS 05/12/2023 04:48:00 Final Observation Date Value Abnormality Reference (Units ) Status SYNC LEUKOCYTES IN BLOOD BY AUTOMATED COUNT 05/12/2023 04:48:00 17.02 Above high normal 4.00-10.80 (K/uL) Final Segs 05/12/2023 04:48:00 88.5 Above high normal 40.0-75.0 (%) Final Lymphs % 05/12/2023 04:48:00 3.2 Below low normal 18.0-42.0 (%) Final Monos 05/12/2023 04:48:00 3.9 1.0-11.0 (%) Final Eosinophils 05/12/2023 04:48:00 2.9 0.0-6.0 (%) Final Basos 05/12/2023 04:48:00 0.4 0.0-2.0 (%) Final Immature Granulocyte, Percent 05/12/2023 04:48:00 1.1 0.0-2.0 (%) Final Absolute Segs 05/12/2023 04:48:00 15.07 Above high normal 1.80-7.70 (K/uL) Final Lymphs, absolute 05/12/2023 04:48:00 0.55 Below low normal 1.00-4.80 (K/ul) Final Monos, Abs 05/12/2023 04:48:00 0.67 0.00-1.10 (K/uL) Final Eos, Abs 05/12/2023 04:48:00 0.49 0.00-0.70 (K/uL) Final Basos, Abs 05/12/2023 04:48:00 0.06 0.00-0.20 (K/uL) Final Immature Granulocytes, Number 05/12/2023 04:48:00 0.18 0.00-0.20 (K/uL) Final Performing Location LABORATORY [facility] [place] - [facility] [address] [facility] [address]
--- OUTSIDE RECORDS SUMMARY | 2023-06-01 11:09 | External Medical Summary ---
Author Name Unknown Address Unknown Organization K01:LABORATORY [place] [address] [facility] [address] Laboratory Report Ordering Provider Test Date Status BREE TORRES 05/11/2023 19:42:40 Final Observation Date Value Abnormality Reference (Units ) Status Campylobacter sp DNA.diarrheagenic [Presence] in Stool by GAMA with probe detection 05/11/2023 19:42:40 Negative Negative Final Salmonella sp rpoD gene [Presence] in Stool by GAMA with probe detection 05/11/2023 19:42:40 Negative Negative Final Shigella species+EIEC invasion plasmid antigen H ipaH gene [Presence] in Stool by GAMA with probe detection 05/11/2023 19:42:40 Negative Negative Final Vibrio sp DNA [Identifier] in Specimen by GAMA with probe detection 05/11/2023 19:42:40 Negative Negative Final Yersinia enterocolitica recN gene [Presence] in Stool by GAMA with probe detection 05/11/2023 19:42:40 Negative Negative Final Escherichia coli Stx1 toxin stx1 gene [Presence] in Stool by GAMA with probe detection 05/11/2023 19:42:40 Negative Negative Final Escherichia coli Stx2 toxin stx2 gene [Presence] in Stool by GAMA with probe detection 05/11/2023 19:42:40 Negative Negative Final Norovirus genogroups I and II RNA panel - Stool by GAMA with probe detection 05/11/2023 19:42:40 Negative Negative Final Rotavirus A RNA [Presence] in Stool by GAMA with probe detection 05/11/2023 19:42:40 Negative Negative Final Performing Location LABORATORY [address] [facility] [address]
--- OUTSIDE RECORDS SUMMARY | 2023-06-01 11:09 | External Medical Summary ---
Author Name Unknown Address Unknown Organization K01:[place] [facility] [facility] [place] [facility] [address] [place] [address] Laboratory Report Ordering Provider Test Date Status LORIE DOUGLAS 05/14/2023 05:38:00 Final Observation Date Value Abnormality Reference (Units ) Status WBC, Total 05/14/2023 05:38:00 16.80 Above high normal 4.00-10.80 (K/uL) Final RBC 05/14/2023 05:38:00 3.48 3.85-5.15 (M/uL) Final Hemoglobin 05/14/2023 05:38:00 10.8 Below low normal 12.0-15.3 (g/dL) Final HCT 05/14/2023 05:38:00 32.4 Below low normal 36.0-45.2 (%) Final MCV 05/14/2023 05:38:00 93.1 81.5-97.5 (fL) Final MCH 05/14/2023 05:38:00 31.0 27.0-34.0 (pg) Final MCHC 05/14/2023 05:38:00 33.3 32.0-36.0 (g/dL) Final RDW 05/14/2023 05:38:00 14.1 11.5-15.5 (%) Final Platelets 05/14/2023 05:38:00 285 140-400 (K/uL) Final MPV 05/14/2023 05:38:00 9.4 6.6-11.1 (fL) Final Nucleated erythrocytes/100 leukocytes [Ratio] in Blood by Automated count 05/14/2023 05:38:00 0 <=0 (/100 WBCs) Final Performing Location [place] [facility] [place] [address] [place] [address]
--- OUTSIDE RECORDS SUMMARY | 2023-06-01 11:09 | External Medical Summary ---
Author Name Unknown Address Unknown Organization K01:LABORATORY [facility] [place] - [address] [place] [address] Laboratory Report Ordering Provider Test Date Status BREE TORRES 05/13/2023 04:09:00 Final Observation Date Value Abnormality Reference (Units ) Status BUN 05/13/2023 04:09:00 17 6-20 (mg/dL) Final Creatinine 05/13/2023 04:09:00 0.9 0.5-1.0 (mg/dL) Final Glomerular filtration rate/1.73 sq M.predicted [Volume Rate/Area] in Serum, Plasma or Blood by Creatinine-based formula (CKD-EPI) 05/13/2023 04:09:00 66 >=60 (mL/min) Final eGFR is calculated based on the CKD-EPI 2020 equation SODIUM 05/13/2023 04:09:00 136 135-146 (m mol/L) Final Potassium 05/13/2023 04:09:00 3.6 3.5-5.1 (m mol/L) Final Cl 05/13/2023 04:09:00 103 98-107 (mm ol/L) Final CO2 05/13/2023 04:09:00 23 22-32 (mmo l/L) Final Anion gap 05/13/2023 04:09:00 10 7-15 (mmol /L) Final Glucose 05/13/2023 04:09:00 109 70-120 (mg /dL) Final Calcium 05/13/2023 04:09:00 8.0 Below low normal 8.4 -10.2 (mg/dL) Final Performing Location LABORATORY [facility] [place] - [address] [place] [address]
--- OUTSIDE RECORDS SUMMARY | 2023-06-01 11:09 | External Medical Summary ---
Author Name Unknown Address Unknown Organization K01:LABORATORY [facility] - [address] [place] [address] Laboratory Report Ordering Provider Test Date Status BREE TORRES 05/12/2023 04:48:00 Final Observation Date Value Abnormality Reference (Units ) Status Magnesium 05/12/2023 04:48:00 1.9 1.5-2.6 (m g/dL) Final Performing Location LAB[facility] - [address] [place] [address]
--- OUTSIDE RECORDS SUMMARY | 2023-06-01 11:09 | External Medical Summary ---
Author Name Unknown Address Unknown Organization K01:[place] [facility] [place] [facility] [place] [address] [facility] [address] Laboratory Report Ordering Provider Test Date Status BREE TORRES 05/12/2023 16:53:10 Final Observation Date Value Abnormality Reference (Units) Status Source 05/12/2023 16:53:10 Liquid Final Clostridioides difficile toxin and BI-NAP1-027 strain DNA panel - Stool by GAMA with probe detection 05/12/2023 16:53:10 Positive for C. difficile toxin B gene DNA by PCR (Amplified Probe). Presumptive negative for C. difficile 027-NAP1-B1 strain by PCR (Amplified Probe). Abnormal Negative Final Performing Location [facility] [place] [address] [facility] [address]
--- OUTSIDE RECORDS SUMMARY | 2023-06-01 11:09 | External Medical Summary ---
Author Name Unknown Address Unknown Organization K01:LABORATORY [facility] [place] - [facility] [address] [place] [address] Laboratory Report Ordering Provider Test Date Status BREE TORRES 05/12/2023 04:48:00 Final Observation Date Value Abnormality Reference (Units ) Status BUN 05/12/2023 04:48:00 18 6-20 (mg/dL) Final Creatinine 05/12/2023 04:48:00 0.9 0.5-1.0 (mg/dL) Final Glomerular filtration rate/1.73 sq M.predicted [Volume Rate/Area] in Serum, Plasma or Blood by Creatinine-based formula (CKD-EPI) 05/12/2023 04:48:00 63 >=60 (mL/min) Final eGFR is calculated based on the CKD-EPI 2020 equation SODIUM 05/12/2023 04:48:00 137 135-146 (m mol/L) Final Potassium 05/12/2023 04:48:00 3.6 3.5-5.1 (m mol/L) Final Cl 05/12/2023 04:48:00 105 98-107 (mm ol/L) Final CO2 05/12/2023 04:48:00 23 22-32 (mmo l/L) Final Anion gap 05/12/2023 04:48:00 9 7-15 (mmol /L) Final Glucose 05/12/2023 04:48:00 114 70-120 (mg /dL) Final Calcium 05/12/2023 04:48:00 8.2 Below low normal 8.4 -10.2 (mg/dL) Final Performing Location LABORATORY [facility] [place] - [address] [place] [address]
--- OUTSIDE RECORDS SUMMARY | 2023-06-01 11:09 | External Medical Summary ---
Author Name Unknown Address Unknown Organization K01:LABORATORY [facility] - [address] [address] Laboratory Report Ordering Provider Test Date Status LORIE DOUGLAS 05/10/2023 23:47:00 Final Observation Date Value Abnormality Reference (Units ) Status CRP, low-sensitivity 05/10/2023 23:47:00 178 Above high normal <=5 (mg/L) Final Performing Location LAB[facility]ORY [facility] - [address] [place] [address]
--- OUTSIDE RECORDS SUMMARY | 2023-06-01 11:09 | External Medical Summary ---
Author Name Unknown Address Unknown Organization K01:[facility] [place] [address] [facility] [address] Laboratory Report Ordering Provider Test Date Status LORIE DOUGLAS 05/11/2023 05:41:00 Final Observation Date Value Abnormality Reference (Units ) Status SYNC LEUKOCYTES IN BLOOD BY AUTOMATED COUNT 05/11/2023 05:41:00 22.41 Above high normal 4.00-10.80 (K/uL) Final Segs 05/11/2023 05:41:00 90.2 Above high normal 40.0-75.0 (%) Final Lymphs % 05/11/2023 05:41:00 3.3 Below low normal 18.0-42.0 (%) Final Monos 05/11/2023 05:41:00 3.7 1.0-11.0 (%) Final Eosinophils 05/11/2023 05:41:00 1.4 0.0-6.0 (%) Final Basos 05/11/2023 05:41:00 0.4 0.0-2.0 (%) Final Immature Granulocyte, Percent 05/11/2023 05:41:00 1.0 0.0-2.0 (%) Final Absolute Segs 05/11/2023 05:41:00 20.22 Above high normal 1.80-7.70 (K/uL) Final Lymphs, absolute 05/11/2023 05:41:00 0.73 Below low normal 1.00-4.80 (K/ul) Final Monos, Abs 05/11/2023 05:41:00 0.83 0.00-1.10 (K/uL) Final Eos, Abs 05/11/2023 05:41:00 0.32 0.00-0.70 (K/uL) Final Basos, Abs 05/11/2023 05:41:00 0.09 0.00-0.20 (K/uL) Final Immature Granulocytes, Number 05/11/2023 05:41:00 0.22 Above high normal 0.00-0.20 (K/uL) Final Performing Location [facility] [place] [facility] [place] [address]
--- OUTSIDE RECORDS SUMMARY | 2023-06-01 11:10 | External Medical Summary ---
Author Name Unknown Address Unknown Organization K01:LABORATORY [place] [address] [place] [place] [address] Laboratory Report Ordering Provider Test Date Status LORIE DOUGLAS 05/10/2023 18:04:00 Final Observation Date Value Abnormality Reference (Units ) Status Retic, % (auto) 05/10/2023 18:04:00 2.54 Above high normal 0.80-1.90 (%) Final Reticulocytes, Absolute 05/10/2023 18:04:00 100.1 31.3-100.1 (K/uL) Final Reticulocyte fraction, immature 05/10/2023 18:04:00 26.8 Above high normal 2.5-20.6 (%) Final Reticulocyte HGB 05/10/2023 18:04:00 32.4 29.7-37.4 (pg) Final Performing Location LAB[facility]ATORY [facility] [place] - [facility] [address] [facility] [address]
--- OUTSIDE RECORDS SUMMARY | 2023-06-01 11:10 | External Medical Summary | Summary of Care ---
Author Name Unknown Organization [facility] Address [address] [place] [address] Phone [phone] Care Team Providers Care Patent Searcher Name Role Phone Kalen Ribeiro MD Primary Care Provider [phone]- [phone] Reason for Referral * Evaluate & Treat - Unlimited Visits (Within 3 days (urgent)) - Authorized Specialty Diagnoses / Procedures Referred By Contact Referred To Contact GI NUTRITION/IM / Gastroenterology Chava Huff PA-C [address] [place] [address] Referral ID Status Reason Start Date Expiration Date Visits Requested Visits Authorized [id number] Authorized Specialty Services Required 05/03/2023 999 999 Question Answer Referral Priority Within 3 days (urgent) Where should this appointment be scheduled? [facility] For what condition is the patient being seen? Malnutrition Do not place this order. Place Nutrition-Clinical Dietitian Referral [[id number]]. Acknowledge Reason for Visit * Reason Comments Follow Up L knee Encounter Details Date Type Department Care Team (Latest Contact Info) Description 05/03/2023 3:30 PM EST Office Visit Orthopaedics [facility] [address] [place] [address] Chava Huff PA-C [address] [place] [address] Primary osteoarthritis of left knee* Allergies Active Allergy Reactions Criticality Noted Date Comments Heparin 10/07/2020 Concern for HIT documented as of this encounter (statuses as of 05/03/2023) Medications Medication Sig Dispensed Refills Start Date [...] 0 Active Rocklatan 0.02-0.005 % Ophthalmic Solution (Netarsudil-Latanopr ost) Instill into eye . 0 Active Furosemide [...] per day. 90 Tablet 1 04/30/2023 Active Mirtazapine 15 MG Oral Tablet (Remeron)Indications :Loss of weight Take 1 Tablet by mouth at bedtime. 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 Sick sinus syndrome 03/15/2023 Atrial fibrillation 03/15/2023 Cardiac pacemaker in situ 12/05/2022 Chronic kidney disease, stage 3a 07/16/2022 Overview: Per CKD protocol 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 06/18/2022 Overview: Per CKD protocol Paroxysmal atrial fibrillation 03/29/2022 HIT (heparin-induced thrombocytopenia) Atherosclerosis of aorta 07/14/2021 Atherosclerotic heart diseas e of [place] coronary artery with other forms of angina [...] as of this encounter (statuses as of 05/03/2023) Resolved Problems Problem Noted Date Diagnosed Date Resolved Date Primary open angle glaucoma (POAG) 03/29/2022 12/25/2022 [...] as of this encounter (statuses as of 05/03/2023) Immunizations Name Administration Dates Next Due COVID-19 [...] as of this encounter Progress Notes * Chava Huff PA-C - 05/03/2023 4:03 PM ESTAssociated Order(s): LG Joint Inj/Arthro: L knee Post-Procedure Diagnose(s): Primary osteoarthritis of left knee Established patient with well documented left knee osteoarthritis. Completed a 3 shot BAUER injection series in the past that was not very impressive. Reports she responds better to steroid injections for her left knee pain. Denies any adverse reactions from this. Denies any current knee instability or mechanical symptoms. No reported swelling or redness. No calf pain. X-rays on file. Of note, the patient is here today with her daughter. Unfortunately, she recently lost her . Has also been having problems with her nutrition, eating and swallowing due to a viral illness in March. This isaffected her overall well- being and nutrition status. As she is unable to consistently digesting confirmed food family's questioning of the means of her mother regaining her health. complete review of systems negative Exam unchanged X-rays reveal degenerative changes of the left knee Impression: Left knee osteoarthritis Plan: Today 's findings were discussed with the patient. They were educated regarding their diagnosis. Multiple treatment options discussed and agreed upon, including new steroid injection for left knee. Written consent and time-out procedure was updated per [facility] standard protocol. The patienthas no other questions or concerns. They will follow up in 3 months to be re-evaluated in make surethey are improving accordingly. Pleased with today 's care. Call sooner if needed. I also placed a GI nutrition referral to determine other means and modalities of treatment regarding feedings. Patient instructed to call or return to clinic for fever or warmth and redness at injection site for potential infection. Patient also advised as to potential for steroid flare reaction including increased pain and redness at injection site which should be treated with ice and resolve within 24 hours. LG Joint Inj/Arthro: L knee on 05/03/2023 4:04 PM Indications: pain Details: 22 G needle, anterolateral approach Medications: (Triamcinolone lidocaine) Outcome: tolerated well, no immediate complications Procedure, treatment alternatives, risks and benefits explained, specific risks discussed. Consent was given by the patient. Immediately prior to procedure a time out was called to verify the correctpatient, procedure, equipment, help desk support and site/side marked as required. Patient was prepped and draped in the usual sterile fashion. This chart was completed in part utilizing [employer] Speech Voice Recognition Software. Grammatical errors, random word insertions, prounoun errors, and incomplete sentences are an occasional consequence of this system due to software limitations, ambient noise, and hardware issues. Any formal questions or concerns about the content, text, or information contained within the body of this dictation should be directly addressed to the provider for clarificatio documented in this encounter Nursing Notes * Azucena Kerns LPN - 05/03/2023 2:57 PM EST Pt presents with her daughter for follow up L knee, received steroid injection 11/29/2022 with relief, would like another today. States her L knee isn't really painful, more 'agitated'. documented in this encounter Plan of Treatment Upcoming Encounters Date Type Department Care Team (Late st Contact Info) Description 05/10/2023 2:00 PM EST Office Visit [address] [place] [phone] Kalen Ribeiro MD [address] [place] [address] 06/28/2023 8:00 AM EDT [facility] [place] [address] [facility] [phone] Kalen Ribeiro [facility] [address] [facility] [address] 08/01/2023 3:00 PM EDT Office Visit Orthopaedics [facility] [address] [facility] [place] [address] Chava Huff PA-C [facility] [address] 08/08/2023 2:20 PM EDT Office Visit Otolaryngology/Head & Neck/Facial Plastic Surgery [address] [place] [address] Joesph Yun MD [address] [place] [address] 09/02/2023 9:00 AM EDT Office Visit Cardiology, [facility] [address] [facility] [place] [address] Halley Preston CRNP [address] [facility] [address] 09/05/2023 10:30 AM EDT Rehab Services Voice [facility], [address] [place] [address] Lance Samuels, [facility]-REFERRAL MANAGER [address] [place] [address] 09/05/2023 11:00 AM EDT Appointment Radiology, [facility] [address] [place] [phone] 02/10/2024 10:00 AM EST Cardiac Studies Cardiology, [facility] [address] [place] [address] [place], [facility] [address] [facility] [place] [address] 02/13/2024 8:15 AM EST Cardiac Studies Cardiac Studies, [facility] [address] [facility] [place] [address] Scheduled Referrals Name Type Priority Associated Diagnoses Orde r Schedule GI NUTRITION REFERRAL OP Referral Within 3 days (urgent) Ordered: 05/03/2023 Health Maintenance Due Date Last Done Comments Zoster Vaccines (2 of 3) 07/17/2007 05/22/2007 COVID-19 Vaccine ( season) 2022 12/26/2021, 02/14/2021, 06/09/2020, Additional history exists DXA Scan 02/14/2023 02/14/2021, 09/2020, 07/02/2017, Additional history exists Albumin/Creatinine Ratio 06/09/2023 06/08/2022, 05/11 GFR 10/22/2023 04/23/2023, 09/2023, 04/16/2023, Additional history exists Depression Screening 04/02/2024 04/02/2023 CKD PHOS USE SMARTSET 31469 04/17/20240 09/2023, 04/16/2023, 04/15/2023, Additional history exists CKD HGB USE SMARTSET 07804 04/23/202404/23, 04/23/2023, 04/17/2023, Additional history exists TSH 04/23/2024 04/23/2023, 07/2023, 12/25/2022, Additional history exists DTaP,Tdap,and Td Vaccines (2 - Td or Tdap) 08/14/2024 08/14/2014, 01/25/2000 Pneumococcal Vaccine: 65+ Years Completed 01/06/2015, 08/19/2007 VITAMIN D LEVEL ONCE IN A LIFETIME-USE SMARTSET# 62647 Completed 12/11/2018, 07/07/2018, 10/06/2010 Influenza Vaccine (FLU [...] this encounter Medical Devices Implanted Type Area Bus And Sys Integration Senior Manager Device Identifier Shelf Expiration Date Model / Serial / Lot [place] Pacemaker-12/05 Implanted:Qty: 1 on 12/05/2022 ICD Chest MEDTR[employer] : CARDIAC SURGERY 09/02/2025 [id number] / / . Lead-12/05/2022 Implanted:Qty: 2 on 12/05/2022 Lead Chest [employer] : CARDIAC SURGERY 10/28/2025 [id number] AND 3830 / / . Balloon Cath Pacing [id number] - [id number] Implanted:Qty: 1 on 09/20/2020 at [facility] BARD : MEDICAL [id number] 07/08/2022 520 [id number] / / [id number] Proglide Perclose 15699-57 X10 - [id number] Implanted:Qty: 1 on 09/20/2020 at [facility] : VASCULAR DEVICES [id number] 06/08/2022 12850-81 / / [id number] Valve Bg 3 Ultra 23mm - [id number] Implanted:Qty: 1 on 09/20/2020 by Dimitri Maya MD at [facility] [employer] [id number] 09/22/2022 [id number] / / . Lead Tempo Temp Pacing - [id number] Implanted:Qty: 1 on 09/20/2020 at [facility] [employer] [id number] 06/28/2021 [id number] / / [id number] documented as of this encounter Procedures Procedure Name Priority Date/Time Associated Diagnosis Comments [place] ARTHROCENTESIS ASPIR&/INJ MAJOR JT/BURSA W/O US Routine 05/03/2023 4:04 PM EST Primary osteoarthritis of left knee documented in this encounter Results * [place] ARTHROCENTESIS ASPIR&/INJ MAJOR JT/BURSA W/O US (05/03/2023 4:04 PM EST) Narrative Chava Huff PA-C - 05/03/2023 4:04 PM EST Chava Huff PA-C 05/03/2023 4:05 PM LG Joint Inj/Arthro: L knee on 05/03/2023 4:04 PM Indications: pain Details: 22 G needle, anterolateral approach Medications: (Triamcinolone lidocaine) Outcome: tolerated well, no immediate complications Procedure, treatment alternatives, risks and benefits explained, specific risks discussed. Consent was given by the patient. Immediately prior to procedure a time out was called to verify the correct patient, procedure, equipment, help desk support and site/side marked as required. Patient was prepped and draped in the usual sterile fashion. Chava Huff PA-C PROCDOC FORM documented in this encounter Visit Diagnoses Diagnosis Primary osteoarthritis of left knee- Primary Primary localized osteoarthrosis, lower leg documented in this encounter Administered Medications Inactive Administered Medications - up to 3 most recent administrations Medication Order MAR Action Action Date Dose Rate Site lidocaine 1% 1 mL - triamcinolone acetonide 40 mg/mL 1 mL inj 2 mL 2 mL, Injection, ONCE, On Sat05/03/23 at 1645, For 1 dose, Lidocaine 1% 1mL Triamcinolone Acetonide 40 mg/mL 1 mL (Final concentration = 20 mg/mL) REFRIGERATE and SHAKE WELL Given 05/03/2023 4:07 PM EST 2 mL Knee Left documented in this encounter Advance Directives Latest [...] the patient have Health Care Power of Header Machine Operator? No Full Code 09/25/2020 6:44 [...] the patient have Health Care Power of Header Machine Operator? No Care Teams Patent Searcher Relationship Specialty Start Date End Date Kalen Ribeiro MD [address] [place] [address] PCP - General 12/15/01 documented as of this encounter
--- OUTSIDE RECORDS SUMMARY | 2023-06-01 11:10 | External Medical Summary | Summary of Care ---
Author Name Unknown Organization [facility] Address [address] [place] [address] Phone [phone] Care Team Providers Care Compound Coating Machine Offbearer Name Role Phone Kalen Ribeiro MD Primary Care Provider +1- [phone] Reason for Referral * Evaluate & Treat - Unlimited Visits (Within 3 days (urgent)) - Authorized Specialty Diagnoses / Procedures Referred By Contact Referred To Contact GI NUTRITION/IM / Gastroenterology Chava Huff PA-C [address] [place] [address] Referral ID Status Reason Start Date Expiration Date Visits Requested Visits Authorized [id number] Authorized Specialty Services Required 05/03/[phone] Question Answer Referral Priority Within 3 days (urgent) Where should this appointment be scheduled? [facility] For what condition is the patient being seen? Malnutrition Do not place this order. Place Nutrition-Clinical Dietitian Referral [[id number]]. Acknowledge Reason for Visit * Reason Comments Follow Up L knee Encounter Details Date Type Department Care Team (Latest Contact Info) Description 05/03/2023 3:30 PM EST Office Visit Orthopaedics [facility] [address] [place] [address] Chava Huff PA-C [address] [place] [address] Primary osteoarthritis of left knee* Allergies Active [...] aorta 07/14/2021 Atherosclerotic heart diseas e of [place] coronary artery with other forms of [...] called to verify the correctpatient, procedure, equipment, presidential support specialist and site/side marked as required. Patient was prepped and draped in the usual sterile fashion. This chart was completed in part utilizing [employer] Speech Voice Recognition Software. Grammatical errors, random [...] Description 05/10/2023 2:00 PM EST Office Visit [address] [place] [phone] Kalen Ribeiro MD [address] [place] [address] 06/28/2023 8:00 AM EDT Office Visit [facility] [place] [address] [facility] [phone] Kalen [facility]ibeiro MD [address] [facility] [address] 08/01/2023 3:00 PM EDT Office Visit Orthopaedics [facility] [address] [facility] [place] [address] Chava Huff PA-C [address] [facility] [address] 08/08/2023 2:20 PM EDT Office Visit Otolaryngology/Head & Neck/Facial Plastic Surgery [address] [place] [address] Joesph Yun MD [address] [place] [address] 09/02/2023 9:00 AM EDT Office Visit Cardiology, [facility] [address] [facility] [place] [address] Halley Preston CRNP [address] [place] [address] 09/05/2023 10:30 AM EDT Rehab Services Voice Lab, [address] [place] [address] Lance Samuels, [facility]OADCAST TRANSMITTER OPERATOR [address] [facility] [place] [address] 09/05/2023 11:00 AM EDT Appointment Radiology, [facility] [address] [place] [phone] 02/10/2024 10:00 AM EST Cardiac Studies Cardiology, [facility] [address] [place] [address] [place], Pac[facility] [address] [facility] [place] [address] 02/13/2024 8:15 AM EST Cardiac Studies Cardiac Studies, [facility] [address] [facility] [place] [address] Scheduled Referrals Name Type Priority Associated Diagnoses [...] Screening 04/02/2024 04/02/2023 CKD PHOS USE SMARTSET 36105 04/17/[address] 09/2023, 04/16/2023, 04/15/2023, Additional history exists CKD HGB USE SMARTSET 30526 04/23/202404/23, 04/23/2023, 04/17/2023, Additional history exists TSH 04/23/2024 04/23/2023, 07/2023, 12/25/2022, Additional history exists DTaP,Tdap,and Td Vaccines (2 - Td or Tdap) 08/14/2024 08/14/2014, 01/25/2000 Pneumococcal Vaccine: 65+ Years Completed 01/06/2015, 08/19/2007 VITAMIN D LEVEL ONCE IN A LIFETIME-USE SMARTSET# 74730 Completed 12/11/2018, 07/07/2018, 10/06/2010 Influenza Vaccine (FLU [...] this encounter Medical Devices Implanted Type Area Assembler Production Line Device Identifier Shelf Expiration Date Model / Serial / Lot [place] Pacemaker-12/05 Implanted:Qty: 1 on 12/05/2022 ICD Chest [employer] : CARDIAC SURGERY 09/02/2025 [id number] / / . Lead-12/05/2022 Implanted:Qty: 2 on 12/05/2022 Lead Chest [employer] : CARDIAC SURGERY 10/28/2025 [id number] AND 3830 / / . Balloon Cath Pacing [id number] - [id number] Implanted:Qty: 1 on 09/20/2020 at [facility] BARD : MEDICAL [id number] 07/08/2022 [id number] [id number] / / [id number] Proglide Perclose 02369-55 X10 - [id number] Implanted:Qty: 1 on 09/20/2020 at [facility] : VASCULAR DEVICES [id number] 06/08/2022 [id number] / / [id number] Valve Bg 3 Ultra 23mm - [id number] Implanted:Qty: 1 on 09/20/2020 by Dimitri Maya MD at [facility] [employer] [id number] 09/22/2022 [id number] / / . Lead Tempo Temp Pacing - [id number] Implanted:Qty: 1 on 09/20/2020 at [facility] [employer] [id number] 06/28/2021 [id number] / / [id number] documented as of this encounter Procedures Procedure Name Priority Date/Time Associated Diagnosis Comments [place] ARTHROCENTESIS ASPIR&/INJ MAJOR JT/BURSA W/O US Routine 05/03/2023 4:04 PM EST Primary osteoarthritis of left knee documented in this encounter Results * [place] ARTHROCENTESIS ASPIR&/INJ MAJOR JT/BURSA W/O US (05/03/2023 [...] to verify the correct patient, procedure, equipment, presidential support specialist and site/side marked as required. Patient was [...] the patient have Health Care Power of V Belt Inspector? No Full Code 09/25/2020 6:44 PM 09/26/2020 [...] the patient have Health Care Power of V Belt Inspector? No Care Teams Compound Coating Machine Offbearer Relationship Specialty Start Date End Date Kalen Ribeiro MD [address] [place] [address] PCP - General 12/15/01 documented as of this encounter
--- OUTSIDE RECORDS SUMMARY | 2023-06-01 11:10 | External Medical Summary | Summary of Care ---
Author Name Unknown Organization [facility] Address [address] [place] [address] Phone [phone] Care Team Providers Care Truck Driver Supervisor Name Role Phone Ottoniel Kenyon MD Primary Care Provider [phone]- [phone] Reason for Referral * Evaluate & Treat - Unlimited Visits (Within 30 days (routine)) - Authorized Specialty Diagnoses / Procedures Referred By Nithin regan Referred To Contact Dietitian / Nutrition Services Diagnoses Severe protein-calorie malnutrition (HCC) Ottoniel Kenyon MD [address] [place] [address] Referral ID Status Reason Start Date Expiration Date Visits Requested Visits Authorized [id number] Authorized Specialty Services Required 05/08/2023 999 999 Question Answer Referral Priority Within 30 days (routine) Where should this appointment be scheduled? [facility] What condition is the patient being seen for? All other conditions Other: Malnutrition/ Increase nutrient intake Comments Medical Nutrition Therapy * Evaluate & Treat - Unlimited Visits (Within 30 days (routine)) - Authorized Specialty Diagnoses / Procedures Referred By Nithin regan Referred To Contact Hematology/Oncology / Hematology Oncology Diagnoses Other elevated white blood cell (WBC) count Ottoniel Kenyon MD [address] [place] [address] Referral ID Status Reason Start Date Expiration Date Visits Requested Visits Authorized [id number] Authorized Specialty Services Required 05/08/2023 999 999 Question Answer Referral Priority Within 30 days (routine) Where should this appointment be scheduled? [facility] Reason for Referral Abnormal CBC Reason for Visit * Reason Onset Date Comments Family Concerns 05/06/2023 Encounter Details Date Type Department Care Team (Late st Contact Info) Description 05/06/2023 Telephone [facility], [place] [address] [place] [address] Jeanie Villagran, RN [address] [place] [address] Family Concerns Allergies Active Allergy Reactions Criticality Noted Date Comments Heparin 10/07/2020 Concern for HIT documented as of this encounter (statuses as of 05/08/2023) Medications Medication Sig Dispensed Refills Start Date [...] at bedtime. 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 She states that Marie is not taking Mirtazapine at all. Suri is requesting that you prescribe another med. 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 I was unable to schedule Hematology/Oncology as it needs reviewed prior to scheduling but provided both numbers for Suri to call and schedule. 05/08/2023 * Addendum Note - Ottoniel Kenyon MD - 05/08/2023 7:50 AM ESTAddended by: OTTONIEL KENYON on: 05/08/2023 07:50 AM Modules accepted: Orders * Telephone Encounter - Ottoniel Kenyon MD - 05/08/2023 7:46 AM EST Scheduling - Please assist with nutrition/furniture mechanic visit and hematology referral. CXR ordered. In regards to the antidepressant, being on the mirtazapine complicates adding a second in her age group. If she is not seeing any benefit from the mirtazapine, I would suggest that she stop that one and we would add a different med. If she is seeing any benefit from mirtazapine (for appetite, sleepor moods), we can still add another med but it would impact which one we pick. * Telephone Encounter - Jeanie Villagran RN - 05/07/2023 11:[address] Kenyon- I just spoke with Suri/daughter-she says her mother's cough is worse & she has more phlegm, describes it as clear, no report of temperature or urinary issues. Her bowels moved yesterday. Suri would like you to go ahead & order hematology & GI nutrition consults, is also okay with her mother getting a CXR. Suri states her mother is crying a lot, mentions wanting to -Suri asking if you can order an antidepressant-please send to [facility] in [place]-thanks Jeanie Villagran RN * Telephone Encounter - Jeanie Villagran RN - 05/07/2023 8:50 AM EST Follow-up Routine Attempted Phone Call First Attempt Call Outcome Left Voicemail/Message Plan To attempt another outreach Jeanie Villagran RN * Telephone Encounter - Ottoniel Kenyon MD - 05/06/2023 5:56 PM EST WBC further elevated. I would suggest an appointment with hematology. Is patient agreeable to referral? Would also suggest repeat CXR. Is she having any fevers or new symptoms that might indicate a source of infection? Potassium still low, but improved from 2.9 to 3.2. Suggest that she take another 3 days of the potassium twice per day and then resume once per day. Can offer referral to our GI nutrition department for assistance with nutrition management. * Telephone Encounter - Jeanie Villagran RN - 05/06/2023 10:[address] Kenyon Suri, patient's daughter calls in with concerns regarding her mother. She is asking about her lab work drawn on 05/03/23-WBC is 20.45, K 3.2 Suri states her mother has not eaten any solid foods in the past 3 days, she is drinking some fluids & 1-2 protein drinks. Patient continues to cough due to "mucous", has not had a BM in 6 days,daughter giving her Miralax. Home health plans to see Marie tomorrow to possibly give her an enema.Patient denies abdominal pain, nausea or vomiting. Suri is asking about her mother getting IV nutrition to hopefully improve her strength. Suri states she feels we are missing "something" Patient has an appointment with you on 05/10/23-let me know ifyou have any additional recommendations thanks Jeanie Villagran RN documented in this encounter Plan of Treatment Upcoming Encounters Date Type Department Care Team (Late st Contact Info) Description 05/10/2023 2:00 PM EST [facility] [address] [facility] [address] Ottoniel Kenyon MD [address] [facility] [place] [address] 05/17/2023 11:00 AM EST Nutrition Services Nutrition, [facility] [address] [place] [address] Ciara Mac RDN [address] [place] [address] 06/28/2023 8:00 AM EDT Office Visit [facility] [address] [place] [phone] Ottoniel Kenyon MD [address] [place] [address] 08/01/2023 3:00 PM EDT Office [facility] [place] [address] Chava Huff PA-C [address] [facility] [place] [address] 08/08/2023 2:20 PM EDT Office Visit Otolaryngology/Head & Neck/Facial Plastic Surgery [address] [place] [address] Joesph Yun MD [address] [place] [address] 09/02/2023 9:00 AM EDT Office Visit Cardiology, [facility] [address] [facility] [place] [address] Halley Preston CRNP [address] [facility] [place] [address] 09/05/2023 10:30 AM EDT Rehab Services Voice Lab, [address] [place] [address] Lance Samuels, [facility] SETUP OPERATOR [address] [place] [address] 09/05/2023 11:00 AM EDT Appointment Radiology, [facility] [address] [place] [address] 02/10/2024 10:00 AM EST Cardiac Studies Cardiology, [facility] [address] [facility] [place] [address] [place], [facility] [address] [facility] [place] [address] 02/13/2024 8:15 AM EST Cardiac Studies Cardiac Studies, [facility] [address] [facility] [place] [address] Scheduled Orders Name Type Priority Associated Diagnoses Orde r Schedule XR CHEST 2 VIEWS Medical Imaging Routine Chronic cough Expected: 05/08/2023, Expires: 06/05/2024 Scheduled Referrals Name Type Priority Associated Diagnoses Orde r Schedule HEMATOLOGY/ONCOLOGY REFERRAL OP Referral Within 30 days (routine) Other elevated white blood cell (WBC) count Ordered: 05/08/2023 NUTRITION-CLINICAL DIETITIAN REFERRAL OP Referral Within 30 [...] Screening 04/02/2024 04/02/2023 CKD PHOS USE SMARTSET 55311 04/17/202409/2023, 04/16/2023, 04/15/2023, Additional history exists TSH 04/23/2024 04/23/2023, 02/0 07/2023, 12/25/2022, Additional history exists CKD HGB USE SMARTSET 66340 05/03/202405/03, 05/03/2023, 04/23/2023, Additional history exists DTaP,Tdap,and Td Vaccines (2 - Td or Tdap) 08/14/2024 08/14/2014, 01/25/2000 Pneumococcal Vaccine: 65+ Years Completed 01/06/2015, 08/19/2007 VITAMIN D LEVEL ONCE IN A LIFETIME-USE SMARTSET# 46180 Completed 12/11/2018, 07/07/2018, 10/06/2010 Influenza Vaccine (FLU [...] this encounter Medical Devices Implanted Type Area Public Health Clinical Nurse Specialist Device Identifier Shelf Expiration Date Model / Serial / Lot [place] Pacemaker-12/05 Implanted:Qty: 1 on 12/05/2022 ICD Chest [employer] : CARDIAC SURGERY 09/02/2025 [id number] / / . Lead-12/05/2022 Implanted:Qty: 2 on 12/05/2022 Lead Chest [employer] : CARDIAC SURGERY 10/28/2025 [id number] AND 3830 / / . Balloon Cath Pacing [id number] - [id number] Implanted:Qty: 1 on 09/20/2020 at [facility] : MEDICAL [id number] 07/08/2022 520 [id number] / / [id number] Proglide Perclose 48315-90 X10 - [id number] Implanted:Qty: 1 on 09/20/2020 at [facility] : VASCULAR DEVICES [id number] 06/08/2022 [id number] / / [id number] Valve Bg 3 Ultra 23mm - [id number] Implanted:Qty: 1 on 09/20/2020 by Dimitri Maya MD at [facility] [employer] [id number] 09/22/2022 [id number] / / . Lead Tempo Temp Pacing - [id number] Implanted:Qty: 1 on 09/20/2020 at [facility] [employer] [id number] 06/28/2021 [id number] / / [id number] documented as of this encounter Visit Diagnoses Diagnosis Severe protein-calorie malnutrition (HCC)- Primary Other severe protein-calorie malnutrition Other elevated white blood cell (WBC) count Chronic cough Cough documented in this encounter Advance Directives Latest [...] the patient have Health Care Power of Potato Chip Packaging Machine Operator? No Full Code 09/25/2020 6:44 [...] the patient have Health Care Power of Potato Chip Packaging Machine Operator? No Care Teams Truck Driver Supervisor Relationship Specialty Start Date End Date Ottoniel Kenyon MD [address] [place] [address] PCP - General 12/15/01 documented as of this encounter
--- OUTSIDE RECORDS SUMMARY | 2023-06-01 11:10 | External Medical Summary | Summary of Care ---
Author Name Unknown Organization [facility] Address [address] [place] [address] Phone [phone] Care Team Providers Care Turbogenerator Operator Name Role Phone Ottoniel Kenyon MD Primary Care Provider +1- [phone] Reason for Referral * Evaluate & Treat - Unlimited Visits (Within 30 days (routine)) - Authorized Specialty Diagnoses / Procedures Referred By Nithin regan Referred To Contact Dietitian / Nutrition Services Diagnoses Severe protein-calorie malnutrition (HCC) Ottoniel Kenyon MD [address] [place] [address] Referral ID Status Reason Start Date Expiration Date Visits Requested Visits Authorized [id number] Authorized Specialty Services Required 05/08/2023 999 999 [...] (WBC) count Ottoniel Kenyon MD [address] [place] [address] Referral ID Status Reason Start Date Expiration Date Visits Requested Visits Authorized [id number] Authorized Specialty Services Required 05/08/2023 999 999 Question Answer Referral Priority Within 30 days (routine) Where should this appointment be scheduled? [facility] Reason for Referral Abnormal CBC Reason for Visit * Reason Onset Date Comments Family Concerns 05/06/2023 Encounter Details Date Type Department Care Team (Late st Contact Info) Description 05/06/[address] [facility], [place] [address] [place] [address] Jeanie Villagran, RN [address] [place] [address] Family Concerns Allergies Active Allergy [...] aorta 07/14/2021 Atherosclerotic heart diseas e of havasupai coronary artery with other forms of angina [...] as of this encounter Miscellaneous Notes * Addendum Note - Ottoniel Kenyon MD - 05/08/2023 7:50 AM ESTAddended by: OTTONIEL KENYON on: 05/08/2023 07:50 AM Modules accepted: Orders * Telephone Encounter - Ottoniel Kenyon MD - 05/08/2023 7:46 AM EST Scheduling - Please assist with nutrition/bridge opener visit and hematology referral. CXR ordered. In [...] can order an antidepressant-please send to [facility] in [place]-thanks Jeanie Villagran RN * Telephone Encounter - [...] Villagran RN - 05/06/2023 10:41 AM EST Suri Noel, patient's daughter calls in with concerns regarding [...] Description 05/10/2023 2:00 PM EST [facility] [place] [address] [address] [facility] [phone] Ot[facility]iel [facility] MD [address] [facility] [address] 06/28/2023 8:00 AM EDT Office Visit [facility] [address] [facility] [phone] Ottoniel Kenyon MD [address] [facility] [address] 08/01/2023 3:00 PM EDT Office Visit Orthopaedics [facility] [address] [facility] [place] [address] Chava Huff PA-C [address] [facility] [place] [address] 08/08/2023 2:20 PM EDT Office Visit Otolaryngology/Head & Neck/Facial Plastic Surgery [address] [place] [address] Joesph Yun MD [address] [place] [address] 09/02/2023 9:00 AM EDT Office Visit Cardiology, [facility] [place] [address] Halley Preston CRNP [address] [place] [address] 09/05/2023 10:30 AM EDT Rehab Services Voice Lab, [address] [address] Lance Samuels, [facility] PROFESSOR [address] [facility] [place] [address] 09/05/2023 11:00 AM EDT Appointment Radiology, [facility] [address] [place] [address] 02/10/2024 10:00 AM EST Cardiac Studies Cardiology, [facility] [address] [employer] [place] [address] [facility] [place] [address] 02/13/2024 8:15 AM EST Cardiac Studies Cardiac Studies, [facility] [place] [address] Scheduled Orders Name Type Priority Associated Diagnoses [...] Screening 04/02/2024 04/02/2023 CKD PHOS USE SMARTSET 06579 04/17/[address]240 09/2023, 04/16/2023, 04/15/2023, Additional history exists TSH 04/23/2024 04/23/2023, 020 07/2023, 12/25/2022, Additional history exists CKD HGB USE SMARTSET 36633 05/03/202405/03, 05/03/2023, 04/23/2023, Additional history exists DTaP,Tdap,and Td Vaccines (2 - Td or Tdap) 08/14/2024 08/14/2014, 01/25/2000 Pneumococcal Vaccine: 65+ Years Completed 01/06/2015, 08/19/2007 VITAMIN D LEVEL ONCE IN A LIFETIME-USE SMARTSET# 13090 Completed 12/11/2018, 07/07/2018, 10/06/2010 Influenza Vaccine (FLU [...] this encounter Medical Devices Implanted Type Area Professor Of Archaeology Device Identifier Shelf Expiration Date Model / Serial / Lot [place] Pacemaker-12/05 Implanted:Qty: 1 on 12/05/2022 ICD Chest [employer] : CARDIAC SURGERY 09/02/2025 [id number] / / . Lead-12/05/2022 Implanted:Qty: 2 on 12/05/2022 Lead Chest [employer] : CARDIAC SURGERY 10/28/2025 5076 AND 3830 / / . Balloon Cath Pacing [id number] - [id number] Implanted:Qty: 1 on 09/20/2020 at [facility] BARD : MEDICAL [id number] 07/08/2022 520 [id number] / / [id number] Proglide Perclose 99472-87 X10 - [id number] Implanted:Qty: 1 on 09/20/2020 at [facility] : VASCULAR DEVICES [id number] 06/08/2022 22465-70 / / [id number] Valve Bg 3 Ultra 23mm - [id number] Implanted:Qty: 1 on 09/20/2020 by Dimitri Maya MD at [facility] [employer] [id number] 09/22/2022 [id number] / / . Lead Tempo Temp Pacing - [id number] Implanted:Qty: 1 on 09/20/2020 at [facility] [employer] [id number] 06/28/2021 [id number] / / [id number] documented as of this encounter Visit Diagnoses [...] the patient have Health Care Power of Infection Prevention Practitioner? No Full Code 09/25/2020 6:44 PM 09/26/2020 [...] the patient have Health Care Power of Infection Prevention Practitioner? No Care Teams Turbogenerator Operator Relationship Specialty Start Date End Date Ottoniel Kenyon MD [address] [place] [address] PCP - General 12/15/01 documented as of this encounter
--- OUTSIDE RECORDS SUMMARY | 2023-06-01 11:10 | External Medical Summary ---
Author Name Unknown Address Unknown Organization K01:[facility] [place] [address] [facility] [address] Laboratory Report Ordering Provider Test Date Status YELENA SORENSEN 05/10/2023 18:04:00 Final Observation Date Value Abnormality Reference (Units ) Status SYNC LEUKOCYTES IN BLOOD BY AUTOMATED COUNT 05/10/2023 18:04:00 23.24 Above high normal 4.00-10.80 (K/uL) Final Segs 05/10/2023 18:04:00 90.0 Above high normal 40.0-75.0 (%) Final Lymphs % 05/10/2023 18:04:00 3.4 Below low normal 18.0-42.0 (%) Final Monos 05/10/2023 18:04:00 3.7 1.0-11.0 (%) Final Eosinophils 05/10/2023 18:04:00 1.2 0.0-6.0 (%) Final Basos 05/10/2023 18:04:00 0.5 0.0-2.0 (%) Final Immature Granulocyte, Percent 05/10/2023 18:04:00 1.2 0.0-2.0 (%) Final Absolute Segs 05/10/2023 18:04:00 20.93 Above high normal 1.80-7.70 (K/uL) Final Lymphs, absolute 05/10/2023 18:04:00 0.78 Below low normal 1.00-4.80 (K/ul) Final Monos, Abs 05/10/2023 18:04:00 0.85 0.00-1.10 (K/uL) Final Eos, Abs 05/10/2023 18:04:00 0.29 0.00-0.70 (K/uL) Final Basos, Abs 05/10/2023 18:04:00 0.11 0.00-0.20 (K/uL) Final Immature Granulocytes, Number 05/10/2023 18:04:00 0.28 Above high normal 0.00-0.20 (K/uL) Final Performing Location [facility] [place] [facility] [address] [facility] [address]
--- OUTSIDE RECORDS SUMMARY | 2023-06-01 11:10 | External Medical Summary ---
Author Name Unknown Address Unknown Organization K01:[facility] [place] [facility] [place] [address] [facility] [address] [place] [address] Laboratory Report Ordering Provider Test Date Status YELENA SORENSEN 05/10/2023 18:04:00 Final Observation Date Value Abnormality Reference (Units ) Status WBC, Total 05/10/2023 18:04:00 23.24 Above high normal 4.00-10.80 (K/uL) Final RBC 05/10/2023 18:04:00 3.95 3.85-5.15 (M/uL) Final Hemoglobin 05/10/2023 18:04:00 11.9 Below low normal 12.0-15.3 (g/dL) Final HCT 05/10/2023 18:04:00 36.8 36.0-45.2 (%) Final MCV 05/10/2023 18:04:00 93.2 81.5-97.5 (fL) Final MCH 05/10/2023 18:04:00 30.1 27.0-34.0 (pg) Final MCHC 05/10/2023 18:04:00 32.3 32.0-36.0 (g/dL) Final RDW 05/10/2023 18:04:00 13.5 11.5-15.5 (%) Final Platelets 05/10/2023 18:04:00 375 140-400 (K/uL) Final MPV 05/10/2023 18:04:00 9.2 6.6-11.1 (fL) Final Nucleated erythrocytes/100 leukocytes [Ratio] in Blood by Automated count 05/10/2023 18:04:00 0 <=0 (/100 WBCs) Final Performing Location [facility] [place] [address] [place] [address]
--- OUTSIDE RECORDS SUMMARY | 2023-06-01 11:10 | External Medical Summary | Summary of Care ---
Author Name Unknown Organization [facility] Address [address] [place] [address] Phone [phone] Care Team Providers Care Professional Services Manager Name Role Phone Ottoniel Kenyon MD Primary Care Provider +1- [phone] Reason for Referral * Evaluate & Treat - Unlimited Visits (Within 30 days (routine)) - Authorized Specialty Diagnoses / Procedures Referred By Nithin regan Referred To Contact Dietitian / Nutrition Services Diagnoses Severe protein-calorie malnutrition (HCC) Ottoniel Kenyon MD [address] [place] [address] Referral ID Status Reason Start Date Expiration Date Visits Requested Visits Authorized [id number] Authorized Specialty Services Required 05/08/2023 999 999 [...] (WBC) count Ottoniel Kenyon MD [address] [place] [address] Referral ID Status Reason Start Date Expiration Date Visits Requested Visits Authorized [id number] Authorized Specialty Services Required 05/08/2023 999 999 Question Answer Referral Priority Within 30 days (routine) Where should this appointment be scheduled? [facility] Reason for Referral Abnormal CBC Reason for Visit * Reason Onset Date Comments Family Concerns 05/06/2023 Encounter Details Date Type Department Care Team (Late st Contact Info) Description 05/06/2023 Telephone [facility] [place] [address] [place] [address] Jeanie Villagran, RN [address] [place] [address] Family Concerns Allergies Active Allergy [...] 0 Active Rocklatan 0.02-0.005 % Ophthalmic Solution (Netarsudil-Latan oprost) Instill into eye . 0 Active Furosemide [...] the morning. 30 Tablet 5 05/08/2023 Active Mirtazapine 15 MG Oral Tablet (Remeron)Indicati ons:Loss of weight Take 1 Tablet by mouth at bedtime. 90 Tablet 3 04/30/2023 05/08/2023 Discontinued (Medication List Clean Up) documented as of this encounter (statuses as [...] aorta 07/14/2021 Atherosclerotic heart diseas e of [place] coronary artery with other forms of angina [...] Note - Ottoniel Kenyon MD - 05/08/2023 10:03 AM ESTAddended by: OTTONIEL KENYON on: 05/08/2023 10:03 AM Modules accepted: Orders * Telephone Encounter - Ottoniel Kenyon MD - 05/08/2023 10:02 AM EST Please call in sertraline to [facility] pharmacy and then notify pt/family * Telephone Encounter - Makayla Penny OSA - 05/08/2023 8:09 AM EST Spoke to Suri. She states that Marie is not taking Mirtazapine at all. Suri is requesting that you prescribe another med. Patient scheduled for [facility]/Superintendant. I was unable to schedule Hematology/Oncology as it needs reviewed prior to scheduling but provided both numbers for Suri to call and schedule. 05/08/2023 * Addendum Note - Ottoniel Kenyon MD - 05/08/2023 7:50 AM ESTAddended by: OTTONIEL KENYON on: 05/08/2023 07:50 AM Modules accepted: Orders * Telephone Encounter - Ottoniel Kenyon MD - 05/08/2023 7:46 AM EST Scheduling - Please assist with nutrition/sciences dean visit and hematology referral. CXR ordered. In [...] you can order an antidepressant-please send to Jessica in [place]-thanks Jeanie Villagran RN * Telephone Encounter - [...] ifyou have any additional recommendations thanks Jeanie Villagran, RN documented in this encounter Plan of Treatment Upcoming Encounters Date Type Department Care Team (Late st Contact Info) Description 05/10/2023 2:00 PM EST Office Visit [place] [address] [place] [place] [phone] Ottoniel Kenyon MD [address] [place] [facility] [place] [address] 05/17/2023 11:00 AM EST [facility] [place] [address] Ciara Mac RDN [address] [place] [address] 06/28/2023 8:00 AM EDT [facility] [place] [address] [facility] [phone] Ottoniel Kenyon MD [address] [place] [address] 08/01/2023 3:00 PM EDT Office Visit [facility] [address] [place] [address] Chava Huff PA-C [address] [place] [address] 08/08/2023 2:20 PM EDT Office Visit Otolaryngology/Head & Neck/[facility]acial Plastic [facility] [address] [facility] [id number] Joesph Yun MD [address] [place] [address] 09/02/2023 9:00 AM EDT Office Visit [facility] [address] [facility] [place] [address] Halley Preston CRNP 132 [facility] [place] [address] 09/05/2023 10:30 AM EDT Rehab Services Voice Lab, [address] [address] Lance Samuels, [facility] [address] [facility] [place] [address] 09/05/2023 11:00 AM EDT Appointment Radiology, [facility] [address] [place] [address] 02/10/2024 10:00 AM EST Cardiac Studies Cardiology, [facility] 132 [facility] [place] [address] [facility] 132 [facility] [place] [address] 02/13/2024 8:15 AM EST Cardiac Studies [facility], [facility] [address] Scheduled Orders Name Type Priority Associated Diagnoses [...] Additional history exists Albumin/Creatinine Ratio 06/09/2023 06/08/2022, 0303/2021 GFR 11/01/2023 05/03/2023, 04/11, 04/17/2023, Additional history exists Depression Screening 04/02/2024 04/02/2023 CKD PHOS USE SMARTSET 01969 04/17/202409/2023, 04/16/2023, 04/15/2023, Additional history exists TSH 04/23/2024 04/23/2023, 07/2023, 12/25/2022, Additional history exists CKD HGB USE SMARTSET 60671 05/03/202405/03, 05/03/2023, 04/23/2023, Additional history exists DTaP,Tdap,and Td Vaccines (2 - Td or Tdap) 08/14/2024 08/14/2014, 01/25/2000 Pneumococcal Vaccine: 65+ Years Completed 01/06/2015, 08/19/2007 VITAMIN D LEVEL ONCE IN A LIFETIME-USE SMARTSET# 27276 Completed 12/11/2018, 07/07/2018, 10/06/2010 Influenza Vaccine (FLU [...] this encounter Medical Devices Implanted Type Area Meters Superintendent Device Identifier Shelf Expiration Date Model / Serial / Lot [place] Pacemaker-9/27 /2023 Implanted:Qty: 1 on 12/05/2022 ICD Chest MED[employer] : CARDIAC SURGERY 09/02/2025 [id number] / / . Lead-12/05/2022 Implanted:Qty: 2 on 12/05/2022 Lead Chest [employer] : CARDIAC SURGERY 10/28/2025 [id number] AND 3830 / / . Balloon Cath Pacing [id number] - [id number] Implanted:Qty: 1 on 09/20/2020 at [facility] B[facility] : MEDICAL [id number] 07/08/2022 520 007P / / [id number] Proglide Perclose 39615-59 X10 - [id number] Implanted:Qty: 1 on 09/20/2020 at [facility] : VASCULAR DEVICES [id number] 06/08/2022 16829-60 / / [id number] Valve Bg 3 Ultra 23mm - [id number] Implanted:Qty: 1 on 09/20/2020 by Dimitri Maya MD at [facility] [employer] [id number] 09/22/2022 [id number] / / . Lead Tempo Temp Pacing - [id number] Implanted:Qty: 1 on 09/20/2020 at [facility] [employer] [id number] 06/28/2021 [id number] / / [id number] documented as of this encounter Visit Diagnoses [...] the patient have Health Care Power of Ventilating Expert? No Full Code 09/25/2020 6:44 PM 09/26/2020 [...] the patient have Health Care Power of Ventilating Expert? No Care Teams Professional Services Manager Relationship Specialty Start Date End Date Ottoniel Kenyon MD [address] [place] [address] PCP - General 12/15/01 documented as of this encounter
--- OUTSIDE RECORDS SUMMARY | 2023-06-01 11:10 | External Medical Summary ---
Author Name Unknown Address Unknown Organization K01:LABORATORY [facility] [place] - [address] [place] [address] Laboratory Report Ordering Provider Test Date Status LORIE DOUGLAS 05/10/2023 18:04:00 Final Observation Date Value Abnormality Reference (Units ) Status Erythrocyte sedimentation rate by Photometric method 05/10/2023 18:04:00 107 Above high normal <30 (mm/hour) Final Performing Location LABORATORY [facility] - [address] [place] [address]
--- OUTSIDE RECORDS SUMMARY | 2023-06-01 11:10 | External Medical Summary ---
Author Name Unknown Address Unknown Organization K01:LAB[facility]ATORY [facility] - [address] [place] [address] Laboratory Report Ordering Provider Test Date Status GLORIA WONG 05/10/2023 18:04:00 Final Observation Date Value Abnormality Reference (Units ) Status Magnesium 05/10/2023 18:04:00 2.0 1.5-2.6 (m g/dL) Final Performing Location LABORATORY [facility] - [address] [place] [address]
--- OUTSIDE RECORDS SUMMARY | 2023-06-01 11:10 | External Medical Summary | Summary of Care ---
Author Name Unknown Organization [facility] Address [address] [place] [address] Phone [phone] Care Team Providers Care Unix Administrator Name Role Phone Kalen Ribeiro MD Primary Care Provider +1- [phone] Reason for Visit * Reason Onset Date Comments Family Concerns 05/06/2023 Encounter Details Date Type Department Care Team (Late st Contact Info) Description 05/06/2023 Telephone [facility] [address] [place] [address] Jeanie Villagran, DONALD [address] [place] [address] Family Concerns Allergies Active Allergy Reactions Criticality Noted Date Comments Heparin 10/07/2020 Concern for HIT documented as of this encounter (statuses as of 05/07/2023) Medications Medication Sig Dispensed Refills Start Date [...] as of this encounter (statuses as of 05/07/2023) Active Problems Problem Noted Date Diagnosed Date [...] aorta 07/14/2021 Atherosclerotic heart diseas e of [place] coronary artery with other forms of angina [...] as of this encounter (statuses as of 05/07/2023) Resolved Problems Problem Noted Date Diagnosed Date [...] as of this encounter (statuses as of 05/07/2023) Immunizations Name Administration Dates Next Due COVID-19 [...] Miscellaneous Notes * Telephone Encounter - Jeanie Villagran RN - 05/07/2023 8:50 AM EST Follow-up Routine Attempted Phone Call First Attempt Call Outcome Left Voicemail/Message Plan To attempt another outreach Jeanie Villagran RN * Telephone Encounter - Kalen Ribeiro MD - 05/06/2023 5:56 PM EST WBC [...] Villagran RN - 05/06/2023 10:41 AM EST Elio Noela, patient's daughter calls in with concerns regarding [...] Description 05/10/2023 2:00 PM EST Office Visit [address] [address] Kalen Ribeiro MD [address] [place] [address] 06/28/2023 8:00 AM EDT Office Visit [facility] [place] [address] [place] [address] Kalen Ribeiro MD [address] [place] [address] 08/01/2023 3:00 PM EDT Office Visit Orthopaedics [facility] [address] [place] [address] Chava Huff PA-C [facility] [place] [address] 08/08/2023 2:20 PM EDT Office Visit Otolaryngology/Head & Neck/Facial Plastic Surgery [address] [place] [address] Joesph Yun MD [address] [place] [address] 09/02/2023 9:00 AM EDT Office Visit Cardiology, [facility] [address] [place] [address] Halley Preston CRNP [address] [facility] [place] [address] 09/05/2023 10:30 AM EDT Rehab Services Voice Lab, [address] [address] Lance Samuels, [facility] [address] [facility] [place] [address] 09/05/2023 11:00 AM EDT Appointment Radiology, [address] [place] [address] 02/10/2024 10:00 AM EST Cardiac Studies Cardiology, [facility] 132 [facility] [place] [address] [place], Pacer Clinic [facility] [address] [facility] [place] [address] 02/13/2024 8:15 AM EST Cardiac Studies Cardiac Studies, [facility] [address] [facility] [place] [address] Health Maintenance Due Date Last Done Comments Zoster Vaccines (2 of 3) 07/17/2007 05/22/2007 COVID-19 Vaccine ( season) 2022 12/26/2021, 02/14/2021, 06/09/2020, Additional history exists DXA Scan 02/14/2023 02/14/2021, 09/2020, 07/02/2017, Additional history exists Albumin/Creatinine Ratio 06/09/2023 06/08/2022, 05/11 GFR 11/01/2023 05/03/2023, 04/11, 04/17/2023, Additional history exists Depression Screening 04/02/2024 04/02/2023 CKD PHOS USE SMARTSET 78427 04/17/202409/2023, 04/16/2023, 04/15/2023, Additional history exists TSH 04/23/2024 04/23/2023, 020 07/2023, 12/25/2022, Additional history exists CKD HGB USE SMARTSET 00172 05/03/202405/03, 05/03/2023, 04/23/2023, Additional history exists DTaP,Tdap,and Td Vaccines (2 - Td or Tdap) 08/14/2024 08/14/2014, 01/25/2000 Pneumococcal Vaccine: 65+ Years Completed 01/06/2015, 08/19/2007 VITAMIN D LEVEL ONCE IN A LIFETIME-USE SMARTSET# 82469 Completed 12/11/2018, 07/07/2018, 10/06/2010 Influenza Vaccine (FLU [...] this encounter Medical Devices Implanted Type Area Rooming House Keeper Device Identifier Shelf Expiration Date Model / Serial / Lot [place] Pacemaker-12/05 Implanted:Qty: 1 on 12/05/2022 ICD Chest MEDTR[employer] : CARDIAC SURGERY 09/02/2025 [id number] / / . Lead-12/05/2022 Implanted:Qty: 2 on 12/05/2022 Lead Chest [employer] : CARDIAC SURGERY 10/28/2025 5076 AND 3830 / / . Balloon Cath Pacing [id number] - [id number] Implanted:Qty: 1 on 09/20/2020 at [facility] : MEDICAL [id number] 07/08/2022 520 007P / / [id number] Proglide Perclose 05107-82 X10 - [id number] Implanted:Qty: 1 on 09/20/2020 at [facility] [place] [facility] : VASCULAR DEVICES [id number] 06/08/2022 06240-71 / / [id number] Valve Bg 3 Ultra 23mm - [id number] Implanted:Qty: 1 on 09/20/2020 by Dimitri Maya MD at [facility] [place] [employer] [id number] 09/22/2022 [id number] / / . Lead Tempo Temp Pacing - [id number] Implanted:Qty: 1 on 09/20/2020 at [facility] [place] [employer] [id number] 06/28/2021 T1106 / / [id number] documented as of this encounter Advance Directives [...] the patient have Health Care Power of Welt Wheeler? No Full Code 09/25/2020 6:44 PM 09/26/2020 [...] the patient have Health Care Power of Welt Wheeler? No Care Teams Unix Administrator Relationship Specialty Start Date End Date Kalen Ribeiro MD [address] [place] [address] PCP - General 12/15/01 documented as of this encounter
--- OUTSIDE RECORDS SUMMARY | 2023-06-01 11:10 | External Medical Summary ---
Author Name Unknown Address Unknown Organization K01:LAB[facility]ATORY [facility] [place] [address] [place] [address] Laboratory Report Ordering Provider Test Date Status YELENA SORENSEN 05/10/2023 18:04:00 Final Observation Date Value Abnormality Reference (Units ) Status BUN 05/10/2023 18:04:00 22 Above high normal 6-20 (mg/dL) Final Creatinine 05/10/2023 18:04:00 1.1 Above high normal 0.5-1.0 (mg/dL) Final Glomerular filtration rate/1.73 sq M.predicted [Volume Rate/Area] in Serum, Plasma or Blood by Creatinine-based formula (CKD-EPI) 05/10/2023 18:04:00 50 Below low normal >=60 (mL/min) Final eGFR is calculated based on the CKD-EPI 2020 equation SODIUM 05/10/2023 18:04:00 134 Below low normal 135 -146 (mmol/L) Final Potassium 05/10/2023 18:04:00 2.5 Below low normal 3.5 -5.1 (mmol/L) Final Cl 05/10/2023 18:04:00 95 Below low normal 98- 107 (mmol/L) Final CO2 05/10/2023 18:04:00 23 22-32 (mmo l/L) Final Anion gap 05/10/2023 18:04:00 16 Above high normal 7- 15 (mmol/L) Final Glucose 05/10/2023 18:04:00 134 Above high normal 70 -120 (mg/dL) Final Albumin 05/10/2023 18:04:00 2.8 Below low normal 3.8 -5.0 (g/dL) Final AST (Aspartate aminotransferase) 05/10/2023 18:04:00 84 Above high normal 10-35 (U/L) Final Alk Phos 05/10/2023 18:04:00 78 35-130 (U/ L) Final Bilirubin, Total 05/10/2023 18:04:00 0.8 <=1 .2 (mg/dL) Final Calcium 05/10/2023 18:04:00 8.5 8.4-10.2 ( mg/dL) Final Protein 05/10/2023 18:04:00 6.5 6.0-8.3 (g /dL) Final ALT (Alanine aminotransferase) 05/10/2023 18:04:00 74 Above high normal 10-35 (U/L) Final Performing Location LAB[facility]ORY [facility] - [address] [facility] [address]
--- OUTSIDE RECORDS SUMMARY | 2023-06-01 11:10 | External Medical Summary | Summary of Care ---
Author Name Unknown Organization [facility] Address [address] [place] [address] Phone [phone] Care Team Providers Care Occupational Therapist'S Assistant Name Role Phone Kalen Ribeiro MD Primary Care Provider +1- [phone] Reason for Visit * Reason Onset Date Comments Advice 05/06/2023 Home Health 05/06/2023 Encounter Details Date Type Department Care Team (Late st Contact Info) Description 05/06/2023 Telephone [facility] [address] [place] [address] Kalen Ribeiro MD [address] [place] [address] Advice; Home Health Allergies Active Allergy Reactions Criticality Noted Date Comments Heparin 10/07/2020 Concern for HIT documented as of this encounter (statuses as of 05/06/2023) Medications Medication Sig Dispensed Refills Start Date [...] as of this encounter (statuses as of 05/06/2023) Active Problems Problem Noted Date Diagnosed Date [...] aorta 07/14/2021 Atherosclerotic heart diseas e of [place] coronary artery with other forms of angina [...] as of this encounter (statuses as of 05/06/2023) Resolved Problems Problem Noted Date Diagnosed Date [...] as of this encounter (statuses as of 05/06/2023) Immunizations Name Administration Dates Next Due COVID-19 [...] Encounter - Jeanie Villagran RN - 05/06/2023 11:30 AM EST See CM note, message to Dr. Gema Villagran RN * Telephone Encounter - Carlotta Barros LPN - 05/06/2023 10:35 AM EST Called patient's daughter Suri. Patient told Suri that's it been 6 days since she's had a BM. Suri can't confirm this though. Confused at times. Patient is very weak. Patient hasn't ate any solid food for 3 days. Drinking approx. 24oz of fluid. (Refusing to eat) Patient feels like she has to have a BM, but unsure if she has tried. Taking Miralax daily - 3 days now. No relief. When was last normal BM: 04/29 Suri informed patient that if she's not eating this will cause her not to have BMs. Denies abdominal pain, nausea, vomiting, burping, pass gas. Please advise. * Telephone Encounter - Carlotta Barros LPN - 05/06/2023 10:26 AM EST HH Concerns Karoline RN, Calling from: [facility] Report/Concerns of: Constipation Symptoms: constipation- last BM 6 days ago and nausea Narrative: Karoline BENNETT calling, patient's daughter called this morning - patient hasn't had a BM for 6days. Patient isn't eating Patient has been taking Miralax daily for a few days without results. Patient isn't eating at all. Drinking 1 protein drink and sips of maria. Karoline is asking for an order for a enema if that's appropriate. Call back Karoline with any advice or orders at [phone] As well as Suri. * Telephone Encounter - Orin Billy OSA - 05/06/2023 10:25 AM EST Reason for patient's call: calling to talk to a nurse Caller was transferred to Carlotta at the nurse line. documented in this encounter Plan of Treatment Upcoming Encounters Date Type Department Care Team (Late st Contact Info) Description 05/10/2023 2:00 PM EST Office Visit [place] [address] [place] [facility] [place] [phone] Kalen Ribeiro MD [address] [place] [address] 06/28/2023 8:00 AM EDT Office Visit [facility] [address] [facility], [place] [phone] Kalen Ribeiro MD [address] [place] [address] 08/01/2023 3:00 PM EDT Office Visit Orthopaedics [facility] [address] [place] [address] Chava Huff PA-C [address] [facility] [place] [address] 08/08/2023 2:20 PM EDT Office Visit Otolaryngology/Head & Neck/Facial Plastic Surgery [address] [place] [address] Joesph Yun MD [address] [place] [address] 09/02/2023 9:00 AM EDT Office Visit Cardiology, [facility] [address] [place] [address] Halley Preston CRNP [address] [place] [address] 09/05/2023 10:30 AM EDT Rehab Services Voice Lab, [address] [address] Lance Samuels, [facility] [address] [place] [address] 09/05/2023 11:00 AM EDT Appointment Radiology, [facility] [address] [facility] [place] [address] 02/10/2024 10:00 AM EST Cardiac Studies Cardiology, [facility] [place] [address] [facility], [facility] 132 [facility] [place] [address] 02/13/2024 8:15 AM EST Cardiac Studies Cardiac Studies, [facility] [address] [facility] [place] [address] Health Maintenance Due Date Last Done Comments Zoster Vaccines (2 of 3) 07/17/2007 05/22/2007 COVID-19 Vaccine ( season) 2022 12/26/2021, 02/14/2021, 06/09/2020, Additional history exists DXA Scan 02/14/2023 02/14/2021, 09/2020, 07/02/2017, Additional history exists Albumin/Creatinine Ratio 06/09/2023 06/08/2022, 05/11 GFR 11/01/2023 05/03/2023, 04/11, 04/17/2023, Additional history exists Depression Screening 04/02/2024 04/02/2023 CKD PHOS USE SMARTSET 64936 04/17/202409/2023, 04/16/2023, 04/15/2023, Additional history exists TSH 04/23/2024 04/23/2023, 07/2023, 12/25/2022, Additional history exists CKD HGB USE SMARTSET 64915 05/03/202405/03, 05/03/2023, 04/23/2023, Additional history exists DTaP,Tdap,and Td Vaccines (2 - Td or Tdap) 08/14/2024 08/14/2014, 01/25/2000 Pneumococcal Vaccine: 65+ Years Completed 01/06/2015, 08/19/2007 VITAMIN D LEVEL ONCE IN A LIFETIME-USE SMARTSET# 65688 Completed 12/11/2018, 07/07/2018, 10/06/2010 Influenza Vaccine (FLU [...] this encounter Medical Devices Implanted Type Area Investigator Narcotics Device Identifier Shelf Expiration Date Model / Serial / Lot [place] Pacemaker-12/05 Implanted:Qty: 1 on 12/05/2022 ICD Chest [employer] : CARDIAC SURGERY 09/02/2025 [id number] / / . Lead-12/05/2022 Implanted:Qty: 2 on 12/05/2022 Lead Chest [employer] : CARDIAC SURGERY 10/28/2025 5076 AND 3830 / / . Balloon Cath Pacing [id number] - [id number] Implanted:Qty: 1 on 09/20/2020 at [facility] BARD : MEDICAL [id number] 07/08/2022 520 007P / / [id number] Proglide Perclose 12416-65 X10 - [id number] Implanted:Qty: 1 on 09/20/2020 [place] [facility] [facility] : VASCULAR DEVICES [id number] 06/08/2022 87597-53 / / [id number] Valve Bg 3 Ultra 23mm - [id number] Implanted:Qty: 1 on 09/20/2020 by Dimitri Maya MD [place] [facility] [employer] [id number] 09/22/2022 [id number] / / . Lead Tempo Temp Pacing - [id number] Implanted:Qty: 1 on 09/20/2020 [place] [facility] [employer] [id number] 06/28/2021 T1106 / / [id number] documented as of this encounter Advance Directives Latest Code Status on File Code Status Date Activated Date Inactivated Comments No Code 04/15/2023 4:21 PM 04/17/2023 6:09 PM This or ordriguez reflects the patients wishes and were consensually [...] the patient have Health Care Power of Analytical Data Miner? No Full Code 09/25/2020 6:44 PM 09/26/2020 [...] the patient have Health Care Power of Analytical Data Miner? No Care Teams Occupational Therapist'S Assistant Relationship Specialty Start Date End Date Kalen Ribeiro MD [address] [facility] [place] [address] PCP - General 12/15/01 documented as of this encounter
--- OUTSIDE RECORDS SUMMARY | 2023-06-01 11:10 | External Medical Summary ---
Author Name Unknown Address Unknown Organization K01:LAB[facility]ATORY [facility] [place] [address] [place] [address] Laboratory Report Ordering Provider Test Date Status DAVE SHABAZZ 05/10/2023 19:24:00 Final Warfarin Therapy
INR: 2 .0-3.0 conventional anticoagulation
INR: 2.5- 3.5 high intensity anticoagulation Observation Date Value Abnormality Reference (Units ) Status PT 05/10/2023 19:24:00 15.5 Above high normal 11 .6-15.2 (seconds) Final INR 05/10/2023 19:24:00 1.2 0.8-1.2 Final Performing Location LAB[facility] [place] [address] [place] [address]
--- OUTSIDE RECORDS SUMMARY | 2023-06-01 11:10 | External Medical Summary | Summary of Care ---
Author Name Unknown Organization [facility] Address [address] [place] [address] Phone [phone] Care Team Providers Care Harness Repairer Name Role Phone Kalen Ribeiro MD Primary Care Provider [phone]- [phone] Reason for Visit * Reason Onset Date Comments Family Concerns 05/06/2023 Encounter Details Date Type Department Care Team (Late st Contact Info) Description 05/06/2023 Telephone [facility] [address] [place] [address] Jeanie Villagran, DONALD [address] [place] [address] Family Concerns Allergies Active Allergy [...] aorta 07/14/2021 Atherosclerotic heart diseas e of [place] coronary artery with other forms of angina [...] RN - 05/07/2023 11:[address] Ribeiro- I just spoke with Suri/daughter-she says her [...] you can order an antidepressant-please send to [facility] in [place]-thanks Jeanie Villagran RN * Telephone Encounter - [...] Description 05/10/2023 2:00 PM EST Office Visit [address] [phone] Kalen Ribeiro MD [address] [place] [address] 06/28/2023 8:00 AM EDT Office Visit [address] [phone] Kalen Ribeiro MD [address] [place] [address] 08/01/2023 3:00 PM EDT Office Visit Orthopaedics [facility] [address] [address] Chava Huff PA-C [address] [address] 08/08/2023 2:20 PM EDT Office Visit Otolaryngology/Head & Neck/Facial Plastic Surgery [address] [address] Joesph Yun MD [address] [place] [address] 09/02/2023 9:00 AM EDT Office Visit Cardiology, [facility] 132 [facility] [address] [address] Halley Preston CRNP 132 [facility] [place] [address] 09/05/2023 10:30 AM EDT Rehab Services Voice Lab, [address] [address] Lance Samuels, [facility] PRO[facility] MANAGER [facility] [address] 09/05/2023 11:00 AM EDT Appointment Radiology, [facility] [address] [place] [address] 02/10/2024 10:00 AM EST Cardiac Studies Card[facility], [facility] [address] [facility] [address] 02/13/2024 8:15 AM EST Cardiac Studies Card[facility] Studies, [facility] 132 [facility] [address] Health Maintenance Due Date Last Done Comments Zoster Vaccines (2 of 3) 07/17/2007 05/22/2007 COVID-19 Vaccine (2022- season) 2022 12/26/2021, 02/14/2021, 06/09/2020, Additional history exists DXA Scan 02/14/2023 02/14/2021, 1209/2020, 07/02/2017, Additional history exists Albumin/Creatinine Ratio 06/09/2023 06/08/2022, 05/11 GFR 11/01/2023 05/03/2023, 04/11, 04/17/2023, Additional history exists Depression Screening 04/02/2024 04/02/2023 CKD PHOS USE SMARTSET 91667 04/17/2024 02/0 09/2023, 04/16/2023, 04/15/2023, Additional history exists TSH 04/23/2024 04/23/2023, 07/2023, 12/25/2022, Additional history exists CKD HGB USE SMARTSET 06631 05/03/202405/03, 05/03/2023, 04/23/2023, Additional history exists DTaP,Tdap,and Td Vaccines (2 - Td or Tdap) 08/14/2024 08/14/2014, 01/25/2000 Pneumococcal Vaccine: 65+ Years Completed 01/06/2015, 08/19/2007 VITAMIN D LEVEL ONCE IN A LIFETIME-USE SMARTSET# 02010 Completed 12/11/2018, 07/07/2018, 10/06/2010 Influenza Vaccine (FLU [...] this encounter Medical Devices Implanted Type Area Lawn Mower Operator Device Identifier Shelf Expiration Date Model / Serial / Lot Molly Pacemaker-12/05 Implanted:Qty: 1 on 12/05/2022 ICD Chest [employer] : CARDIAC SURGERY 09/02/2025 [id number] / / . Lead-12/05/2022 Implanted:Qty: 2 on 12/05/2022 Lead Chest [employer] : CARDIAC SURGERY 10/28/2025 [id number] / / . Balloon Cath Pacing [id number] - [id number] Implanted:Qty: 1 on 09/20/2020 at [facility] : MEDICAL [id number] 07/08/2022 [id number] / / [id number] Proglide Perclose [id number] X10 - [id number] Implanted:Qty: 1 on 09/20/2020 at [facility] : VASCULAR DEVICES [id number] 06/08/2022 [id number] / / [id number] Valve Bg 3 Ultra 23mm - [id number] Implanted:Qty: 1 on 09/20/2020 by Dimitri Maya MD at [facility] [employer] [id number] 09/22/2022 [id number] / / . Lead Tempo Temp Pacing - [id number] Implanted:Qty: 1 on 09/20/2020 at [facility] [employer] [id number] 06/28/2021 [id number] / / [id number] documented as of this encounter Advance Directives [...] the patient have Health Care Power of Waiter/Waitress Formal? No Full Code 09/25/2020 6:44 PM 09/26/2020 [...] the patient have Health Care Power of Waiter/Waitress Formal? No Care Teams Harness Repairer Relationship Specialty Start Date End Date Kalen Ribeiro MD [address] [address] PCP - General 12/15/01 documented as of this encounter
--- OUTSIDE RECORDS SUMMARY | 2023-06-01 11:10 | External Medical Summary ---
Author Name Unknown Address Unknown Organization K01:[facility]ORY [facility] [place] [address] [place] [address] Laboratory Report Ordering Provider Test Date Status SITA SORENSENSH 05/10/2023 18:04:00 Final Observation Date Value Abnormality Reference (Units ) Status Troponin T 05/10/2023 18:04:00 28 Above high normal < =14 (ng/L) Final Performing Location [facility] - [address] [place] [address]
--- OUTSIDE RECORDS SUMMARY | 2023-06-01 11:10 | External Medical Summary ---
Author Name Unknown Address Unknown Organization K01:[facility] [place] [address] [place] [address] Laboratory Report Ordering Provider Test Date Status DAVE SHABAZZ 05/10/2023 19:24:00 Final Observation Date Value Abnormality Reference (Units ) Status Troponin T 05/10/2023 19:24:00 27 Above high normal < =14 (ng/L) Final Performing Location [facility] - [address] [place] [address]
--- OUTSIDE RECORDS SUMMARY | 2023-06-01 11:10 | External Medical Summary ---
Author Name Unknown Address Unknown Organization K01:LABORATORY [facility] - [address] [place] [address] Laboratory Report Ordering Provider Test Date Status LIO WONGS 05/10/2023 18:04:00 Final Observation Date Value Abnormality Reference (Units ) Status Phosphate 05/10/2023 18:04:00 3.0 2.5-4.8 (m g/dL) Final Performing Location [facility] - [address] [place] [address]
--- OUTSIDE RECORDS SUMMARY | 2023-06-01 11:10 | External Medical Summary ---
Author Name Unknown Address Unknown Organization K01:[place] [facility] [facility] [place] [address] [place] [address] Laboratory Report Ordering Provider Test Date Status DAVE SHABAZZ 05/10/2023 18:04:00 Final Observation Date Value Abnormality Reference (Units ) Status Lipase 05/10/2023 18:04:00 21 13-60 (U/L ) Final Performing Location [facility] - [address] [place] [address]
--- OUTSIDE RECORDS SUMMARY | 2023-06-01 11:11 | External Medical Summary ---
Author Name Unknown Address Unknown Organization K01:[facility] [place] [facility] [address] [facility] [address] Laboratory Report Ordering Provider Test Date Status JUVENAL ALCAZARSHERLYN 05/03/2023 13:39:55 Final Observation Date Value Abnormality Reference (Units ) Status BUN 05/03/2023 13:39:55 21 Above high normal 6-20 (mg/dL) Final Creatinine 05/03/2023 13:39:55 1.0 0.5-1.0 (mg/dL) Final Glomerular filtration rate/1.73 sq M.predicted [Volume Rate/Area] in Serum, Plasma or Blood by Creatinine-based formula (CKD-EPI) 05/03/2023 13:39:55 57 Below low normal >=60 (mL/min) Final eGFR is calculated based on the CKD-EPI 2020 equation SODIUM 05/03/2023 13:39:55 136 135-146 (m mol/L) Final Potassium 05/03/2023 13:39:55 3.2 Below low normal 3.5 -5.1 (mmol/L) Final Cl 05/03/2023 13:39:55 93 Below low normal 98- 107 (mmol/L) Final CO2 05/03/2023 13:39:55 28 22-32 (mmo l/L) Final Anion gap 05/03/2023 13:39:55 15 7-15 (mmol /L) Final Glucose 05/03/2023 13:39:55 119 70-120 (mg /dL) Final Calcium 05/03/2023 13:39:55 8.3 Below low normal 8.4 -10.2 (mg/dL) Final Performing Location [facility]ORY [facility] [place] [address] [place] [address]
--- OUTSIDE RECORDS SUMMARY | 2023-06-01 11:11 | External Medical Summary ---
Author Name Unknown Address Unknown Organization K01:LABORATORY [facility] [place] - [address] [place] [address] Laboratory Report Ordering Provider Test Date Status JUVENAL ALCAZARSHERLYN 04/23/2023 12:30:43 Final Observation Date Value Abnormality Reference (Units ) Status BUN 04/23/2023 12:30:43 14 6-20 (mg/dL) Final Creatinine 04/23/2023 12:30:43 0.8 0.5-1.0 (mg/dL) Final Glomerular filtration rate/1.73 sq M.predicted [Volume Rate/Area] in Serum, Plasma or Blood by Creatinine-based formula (CKD-EPI) 04/23/2023 12:30:43 72 >=60 (mL/min) Final eGFR is calculated based on the CKD-EPI 2020 equation SODIUM 04/23/2023 12:30:43 140 135-146 (m mol/L) Final Potassium 04/23/2023 12:30:43 2.9 Below low normal 3.5 -5.1 (mmol/L) Final Cl 04/23/2023 12:30:43 97 Below low normal 98- 107 (mmol/L) Final CO2 04/23/2023 12:30:43 26 22-32 (mmo l/L) Final Anion gap 04/23/2023 12:30:43 17 Above high normal 7- 15 (mmol/L) Final Glucose 04/23/2023 12:30:43 131 Above high normal 70 -120 (mg/dL) Final Albumin 04/23/2023 12:30:43 3.3 Below low normal 3.8 -5.0 (g/dL) Final AST (Aspartate aminotransferase) 04/23/2023 12:30:43 76 Above high normal 10-35 (U/L) Final Alk Phos 04/23/2023 12:30:43 50 35-130 (U/ L) Final Bilirubin, Total 04/23/2023 12:30:43 0.4 <=1 .2 (mg/dL) Final Calcium 04/23/2023 12:30:43 8.4 8.4-10.2 ( mg/dL) Final Protein 04/23/2023 12:30:43 5.6 Below low normal 6.0 -8.3 (g/dL) Final ALT (Alanine aminotransferase) 04/23/2023 12:30:43 43 Above high normal 10-35 (U/L) Final Performing Location LABORATORY [facility] [place] - [facility] [address] [facility] [address]
--- OUTSIDE RECORDS SUMMARY | 2023-06-01 11:11 | External Medical Summary | Summary of Care ---
Author Name Unknown Organization [facility] Address [address] [place] [address] Phone [phone] Care Team Providers Care Pharmacy Technician Name Role Phone Kalen Ribeiro MD Primary Care Provider +1- [phone] Reason for Visit * Reason Comments Outpatient Testing Encounter Details Date Type Department Care Team (Late st Contact Info) Description 04/25/2023 8:30 AM EST Laboratory Laboratory, [place] [address] [place] [address] [address], Specimen Drop Off [address] [address] Diarrhea, unspecified type Allergies Active Allergy Reactions Criticality Noted Date Comments Heparin 10/07/2020 Concern for HIT documented as of this encounter (statuses as of 04/25/2023) Medications Medication Sig Dispensed Refills Start Date [...] ONCE DAILY 90 Tablet 3 01/03/2023 Active Mirtazapine 15 MG Oral Tablet (Remeron)Indications :Loss of weight Take 1 Tablet by mouth at bedtime. 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 [...] as of this encounter (statuses as of 04/25/2023) Resolved Problems Problem Noted Date Diagnosed Date [...] as of this encounter (statuses as of 04/25/2023) Immunizations Name Administration Dates Next Due COVID-19 mRNA, LNP-s, No Pre serve, 2-Dose Series (Moderna) 06/09/2020,05/12/2020 COVID-19, mRNA, LNP-s, PF, B ooster, 100mcg/0.5mg (Moderna) 02/14/2021 Covid-19, Mrna, Lnp-s, Pf, B ivalent, 30 Mcg, IM, 12 yrs and above (Headspace) 12/26/2021 Pneumococcal Conjugate Vacc, 13 Valent (Prevnar) [...] No 04/15/2023 documented as of this encounter Plan of Treatment Upcoming Encounters Date Type Department Care Team (Late st Contact Info) Description 06/28/2023 8:00 AM EDT Office Visit [facility] [address] [facility] [place] [address] Kalen Ribeiro MD [address] [facility] [place] [address] 08/08/2023 2:20 PM EDT Office Visit Otolaryngology/Head & Neck/Facial Plastic Surgery [address] [place] [address] Joesph Yun MD [address] [place] [address] 09/02/2023 9:00 AM EDT Office Visit Cardiology, [facility] [address] [facility] [address] Halley Preston CRNP [address] [place] [address] 09/05/2023 10:30 AM EDT Rehab Services Voice Lab, [facility] [address] [place] [address] Lance Samuels, [facility]-SENIOR SQL SERVER DBA [address] [place] [address] 09/05/2023 11:00 AM EDT Appointment Radiology, [facility] [address] [place] [address] 02/10/2024 10:00 AM EST Cardiac Studies Cardiology, [facility] 132 [place] [address] [facility] [address] 02/13/2024 8:15 AM EST Cardiac Studies Cardiac Studies, [facility] [address] [facility] [address] Pending Results Name Type Priority Associated Diagnoses Date /Time CLOSTRIDIUM DIFFICILE, PCR Lab Routine Diarrhea, unspecified type 04/25/2023 8:27 AM EST Health Maintenance Due Date Last Done Comments Zoster Vaccines (2 of 3) 07/17/2007 05/22/2007 COVID-19 Vaccine ( season) 2022 12/26/2021, 02/14/2021, 06/09/2020, Additional history exists DXA Scan 02/14/2023 02/14/2021, 09/2020, 07/02/2017, Additional history exists Albumin/Creatinine Ratio 06/09/2023 06/08/2022, 05/11 GFR 10/22/2023 04/23/2023, 09/2023, 04/16/2023, Additional history exists Depression Screening 04/02/2024 04/02/2023 CKD PHOS USE SMARTSET 29062 04/17/[address] 09/2023, 04/16/2023, 04/15/2023, Additional history exists CKD HGB USE SMARTSET 89600 04/23/202404/23, 04/23/2023, 04/17/2023, Additional history exists TSH 04/23/2024 04/23/2023, 07/2023, 12/25/2022, Additional history exists DTaP,Tdap,and Td Vaccines (2 - Td or Tdap) 08/14/2024 08/14/2014, 01/25/2000 Pneumococcal Vaccine: 65+ Years Completed 01/06/2015, 08/19/2007 VITAMIN D LEVEL ONCE IN A LIFETIME-USE SMARTSET# 89517 Completed 12/11/2018, 07/07/2018, 10/06/2010 Influenza Vaccine (FLU [...] this encounter Medical Devices Implanted Type Area Manager Traffic Device Identifier Shelf Expiration Date Model / Serial / Lot Molly Pacemaker-12/05 Implanted:Qty: 1 on 12/05/2022 ICD Chest [employer] : CARDIAC SURGERY 09/02/2025 [id number] / / . Lead-12/05/2022 Implanted:Qty: 2 on 12/05/2022 Lead Chest [employer] : CARDIAC SURGERY 10/28/2025 [id number] AND 3830 / / . Lead Tempo Temp Pacing - [id number] Implanted:Qty: 1 on 09/20/2020 by Dimitri Maya MD at [facility] [employer] [id number] 06/28/2021 [id number] / / [id number] documented as of this encounter Visit Diagnoses Diagnosis Diarrhea, unspecified type documented in this encounter Additional Health Concerns Infection Onset Date Last Indicated Resolved Time C. difficile Rule-Out 04/25/2023 04/25/2023 documented as of this encounter Advance Directives [...] the patient have Health Care Power of Watcher Automat Long Goods? No Full Code 09/25/2020 6:44 PM 09/26/2020 [...] the patient have Health Care Power of Watcher [employer] Long Goods? No Care Teams Pharmacy Technician Relationship Specialty Start Date End Date Kalen Ribeiro MD [address] [place] [address] PCP - General 12/15/01 documented as of this encounter
--- OUTSIDE RECORDS SUMMARY | 2023-06-01 11:11 | External Medical Summary | Summary of Care ---
Author Name Unknown Organization [facility] Address [address] [place] [address] Phone [phone] Care Team Providers Care Apron Trimmer Name Role Phone Kalen Ribeiro MD Primary Care Provider +1- [phone] Reason for Visit * Reason Onset Date Comments Advice 04/22/2023 Home health Encounter Details Date Type Department Care Team (Late st Contact Info) Description 04/22/2023 Telephone [facility] [address] [place] [address] Kalen Ribeiro MD [address] [place] [address] Advice (Home health) Allergies Active Allergy Reactions Criticality Noted Date [...] aorta 07/14/2021 Atherosclerotic heart diseas e of [place] coronary artery with other forms of angina [...] 30 Mcg, IM, 12 yrs and above ([facility]) 12/26/2021 Pneumococcal Conjugate Vacc, 13 Valent (Prevnar) [...] encounter Miscellaneous Notes * Telephone Encounter - Lauryn Fuentes LPN - 04/25/2023 2:15 PM EST Home health aware * Telephone Encounter - Kalen Ribeiro MD - 04/22/2023 5:07 PM EST Yes, I can sign home health orders for her * Telephone Encounter - Rhina Butler OSA - 04/22/2023 12:12 PM EST Home health is calling to make sign that pcp with be ok with sign follow up order for home health pt was just discharged from the hospital. If you have any question please call [facility] at [phone]. Opt. 1 documented in this encounter Plan of Treatment Upcoming Encounters Date Type Department Care Team (Late st Contact Info) Description 06/28/2023 8:00 AM EDT Office Visit [facility] [address] [place] [phone] Kalen Ribeiro MD [address] [place], [place] [phone] 08/08/2023 2:20 PM EDT Office Visit Otolaryngology/Head & Neck/Facial Plastic Surgery [address] [place] [address] Joesph Yun MD [address] [place] [address] 09/02/2023 9:00 AM EDT Office Visit Cardiology, [facility] [address] [facility] [place] [address] Halley Preston CRNP [address] [facility] [address] 09/05/2023 10:30 AM EDT Rehab Services Voice Lab, [address] [place] [address] Lance Samuels, [facility] [address] [facility] [place] [address] 09/05/2023 11:00 AM EDT Appointment Radiology, [facility] [address] [place] [address] 02/10/2024 10:00 AM EST Cardiac Studies Cardiology, [facility] [address] [place] [address] [place] [address] [place] [address] 02/13/2024 8:15 AM EST Cardiac Studies Cardiac Studies, [facility] [address] [address] Health Maintenance Due Date Last Done Comments Zoster Vaccines (2 of 3) 07/17/2007 05/22/2007 COVID-19 Vaccine ( season) 2022 12/26/2021, 02/14/2021, 06/09/2020, Additional history exists DXA Scan 02/14/2023 02/14/2021, 09/2020, 07/02/2017, Additional history exists Albumin/Creatinine Ratio 06/09/2023 06/08/2022, 05/11 GFR 10/22/2023 04/23/2023, 09/2023, 04/16/2023, Additional history exists Depression Screening 04/02/2024 04/02/2023 CKD PHOS USE SMARTSET 61941 04/17/[address] 09/2023, 04/16/2023, 04/15/2023, Additional history exists CKD HGB USE SMARTSET 11558 04/23/202404/23, 04/23/2023, 04/17/2023, Additional history exists TSH 04/23/2024 04/23/2023, 07/2023, 12/25/2022, Additional history exists DTaP,Tdap,and Td Vaccines (2 - Td or Tdap) 08/14/2024 08/14/2014, 01/25/2000 Pneumococcal Vaccine: 65+ Years Completed 01/06/2015, 08/19/2007 VITAMIN D LEVEL ONCE IN A LIFETIME-USE SMARTSET# 27718 Completed 12/11/2018, 07/07/2018, 10/06/2010 Influenza Vaccine (FLU [...] this encounter Medical Devices Implanted Type Area Editorial Writer Device Identifier Shelf Expiration Date Model / Serial / Lot Molly Pacemaker-12/05 Implanted:Qty: 1 on 12/05/2022 ICD Chest [employer] : CARDIAC SURGERY 09/02/2025 [id number] / / . Lead-12/05/2022 Implanted:Qty: 2 on 12/05/2022 Lead Chest [employer] : CARDIAC SURGERY 10/28/2025 [id number] AND 3830 / / . Lead Tempo Temp Pacing - [id number] Implanted:Qty: 1 on 09/20/2020 by Dimitri Maya MD at [facility] [place] [employer] [id number] 06/28/2021 [id number] / / [id number] documented as of this encounter Additional Health Concerns Infection Onset Date Last Indicated Resolved Time C. difficile Rule-Out 04/25/2023 04/25/20232023 1:59 PM EST documented as of this encounter Advance Directives [...] the patient have Health Care Power of Tile And Marble Setter? No Full Code 09/25/2020 6:44 PM 09/26/2020 [...] the patient have Health Care Power of Tile And Marble Setter? No Care Teams Apron Trimmer Relationship Specialty Start Date End Date Kalen Ribeiro MD [address] [place] [address] PCP - General 12/15/01 documented as of this encounter
--- OUTSIDE RECORDS SUMMARY | 2023-06-01 11:11 | External Medical Summary ---
Author Name Unknown Address Unknown Organization K01:LAB[facility]ATORY [facility] [place] [address] [place] [address] Laboratory Report Ordering Provider Test Date Status CHANTALE ALCAZAR 04/23/2023 12:30:43 Final Observation Date Value Abnormality Reference (Units ) Status TSH 04/23/2023 12:30:43 4.39 Above high normal 0. 27-4.20 (uIU/mL) Final Performing Location LABORATORY C - [address] [place] [address]
--- OUTSIDE RECORDS SUMMARY | 2023-06-01 11:11 | External Medical Summary | Summary of Care ---
Author Name Unknown Organization [facility] Address [address] [place] [address] Phone [phone] Care Team Providers Care Campaign Fundraiser Name Role Phone Kalen Ribeiro MD Primary Care Provider [phone]- [phone] Reason for Visit * Reason Comments Outpatient Testing Encounter Details Date Type Department Care Team (Late st Contact Info) Description 04/23/2023 12:20 PM EST Laboratory Laboratory, [facility] [address] [place] [address] [facility] [address] [place] [address] Diarrhea, unspecified type; Generalized weakness Allergies Active Allergy Reactions Criticality Noted Date Comments Heparin 10/07/2020 Concern for HIT documented as of this encounter (statuses as of 04/23/2023) Medications Medication Sig Dispensed Refills Start Date [...] as of this encounter (statuses as of 04/23/2023) Active Problems Problem Noted Date Diagnosed Date [...] as of this encounter (statuses as of 04/23/2023) Resolved Problems Problem Noted Date Diagnosed Date [...] as of this encounter (statuses as of 04/23/2023) Immunizations Name Administration Dates Next Due COVID-19 mRNA, LNP-s, No Pre serve, 2-Dose Series (Moderna) 06/09/2020,05/12/2020 COVID-19, mRNA, LNP-s, PF, B ooster, 100mcg/0.5mg (Moderna) 02/14/2021 Covid-19, Mrna, Lnp-s, Pf, B ivalent, 30 Mcg, IM, 12 yrs and above ([employer]) 12/26/2021 Pneumococcal Conjugate Vacc, 13 Valent (Prevnar) [...] Team (Late st Contact Info) Description 04/23/2023 2:00 PM EST Scheduled Telephone Care Coordination and Integration [address] [place] [address] Peggy Saavedra, CARLIE [address] [place] [address] 06/28/2023 8:00 AM EDT Office Visit [address] [address] Kalen Ribeiro MD [address] [place] [address] 08/08/2023 2:20 PM EDT Office Visit Otolaryngology/Head & Neck/Facial Plastic Surgery [address] [place] [address] Joesph Yun MD [address] [place] [address] 09/02/2023 9:00 AM EDT [facility] [address] Halley Preston CR[facility] [address] [facility] [address] 09/05/2023 10:30 AM EDT Rehab Services Voice Lab, [address] [address] Lance Samuels, [facility]3]-PARKING WORKER [address] [facility] [address] 09/05/2023 11:00 AM EDT Appointment Radiology, [address] [address] 02/10/2024 10:00 AM EST Cardiac Studies Cardiology, [facility] [address] [facility] [place] [address] [facility] [place] [address] 02/13/2024 8:15 AM EST Cardiac Studies Cardiac Studies, [facility] [address] [facility] [place] [address] Pending Results Name Type Priority Associated Diagnoses Date /Time MAGNESIUM Lab Routine Diarrhea, unspecified type 04/23/2023 12:30 PM EST FERRITIN Lab Routine Generalized weakness 04/23/2023 12:30 PM EST COMPREHENSIVE METABOLIC PANEL Lab Routine Generalized weakness 04/23/2023 12:30 PM EST CBC WITH WBC DIFFERENTIAL Lab Routine Generalized weakness 04/23/2023 12:30 PM EST TSH WITH FREE T4 IF INDICATED Lab Routine Generalized weakness 04/23/2023 12:30 PM EST CBC Lab Routine Generalized weakness 04/23/2023 12:30 PM EST DIFFERENTIAL, AUTOMATED Lab Routine Generalized weakness 04/23/2023 12:30 PM EST Health Maintenance Due Date Last Done Comments Zoster Vaccines (2 of 3) 07/17/2007 05/22/2007 COVID-19 Vaccine ( season) 2022 12/26/2021, 02/14/2021, 06/09/2020, Additional history exists DXA Scan 02/14/2023 02/14/2021, 09/2020, 07/02/2017, Additional history exists Albumin/Creatinine Ratio 06/09/2023 06/08/2022, 03/03/2021 GFR 10/16/2023 04/17/2023, 08/2023, 04/15/2023, Additional history exists Depression Screening 04/02/2024 04/02/2023 TSH 04/15/2024 04/15/2023, 12/09, 06/08/2022, Additional history exists CKD HGB USE SMARTSET 29004 04/17/202404/17, 04/16/2023, 04/15/2023, Additional history exists CKD PHOS USE SMARTSET 56071 04/17/202409/2023, 04/16/2023, 04/15/2023, Additional history exists DTaP,Tdap,and Td Vaccines (2 - Td or Tdap) 08/14/2024 08/14/2014, 01/25/2000 Pneumococcal Vaccine: 65+ Years Completed 01/06/2015, 08/19/2007 VITAMIN D LEVEL ONCE IN A LIFETIME-USE SMARTSET# 95200 Completed 12/11/2018, 07/07/2018, 10/06/2010 Influenza Vaccine (FLU [...] this encounter Medical Devices Implanted Type Area Sound Recordist Device Identifier Shelf Expiration Date Model / Serial / Lot Molly Pacemaker-12/05 Implanted:Qty: 1 on 12/05/2022 ICD Chest [employer] : CARDIAC SURGERY 09/02/2025 [id number] / / . Lead-12/05/2022 Implanted:Qty: 2 on 12/05/2022 Lead Chest [employer] : CARDIAC SURGERY 10/28/2025 [id number] / / . Lead Tempo Temp Pacing - [id number] Implanted:Qty: 1 on 09/20/2020 by Dimitri Maya MD at [facility] [employer] [id number] 06/28/2021 [id number] / / [id number] documented as of this encounter Visit Diagnoses Diagnosis Diarrhea, unspecified type Generalized weakness Other malaise and fatigue documented in this encounter Advance Directives Latest [...] the patient have Health Care Power of Embedded Software Test Engineer? No Full Code 09/25/2020 6:44 PM [...] the patient have Health Care Power of Embedded Software Test Engineer? No Care Teams Campaign Fundraiser Relationship Specialty Start Date End Date Kalen Ribeiro MD [address] [place] [address] PCP - General 12/15/01 documented as of this encounter
--- OUTSIDE RECORDS SUMMARY | 2023-06-01 11:11 | External Medical Summary | Summary of Care ---
Author Name Unknown Organization [facility] Address [address] [place] [address] Phone [phone] Care Team Providers Care [employer] Sprayer Name Role Phone Kalen Ribeiro MD Primary Care Provider [phone]- [phone] Reason for Visit * Reason Onset Date Comments Test Results Lab 04/29/2023 Encounter Details Date Type Department Care Team (Late st Contact Info) Description 04/29/2023 Recycle Driver Telephone [facility] [address] [place] [address] Jeanie Villagran, DONALD [address] [place] [address] Test Results Lab Allergies Active Allergy Reactions Criticality Noted Date Comments Heparin 10/07/2020 Concern for HIT documented as of this encounter (statuses as of 04/30/2023) Medications Medication Sig Dispensed Refills Start Date [...] at bedtime. 90 Tablet 3 04/10/2023 Active Potassium Chloride Estefany ER 20 MEQ Oral Tablet Extended ReleaseIndications:H ypokalemia Take 1 tablet by mouth twice per day for 3 days and then once per day. 90 Tablet 1 04/30/2023 Active documented as of this encounter (statuses as of 04/30/2023) Active Problems Problem Noted Date Diagnosed Date [...] aorta 07/14/2021 Atherosclerotic heart diseas e of [place] coronary artery with other forms of angina [...] as of this encounter (statuses as of 04/30/2023) Resolved Problems Problem Noted Date Diagnosed Date [...] as of this encounter (statuses as of 04/30/2023) Immunizations Name Administration Dates Next Due COVID-19 [...] Telephone Encounter - Jeanie Villagran RN - 04/30/2023 9:11 AM EST Spoke with patient's daughter Suri Gonzalez, made her aware of the recommendations. Patient does not have any SOB, cough, urinary issues at this time. Suri requesting an appointment with Dr. Ribeiro to discuss patient's poor oral intake-assisted with getting patient an appointment on 05/10/23 Jeanie Villagran RN * Telephone Encounter - Kalen Ribeiro MD - 04/30/2023 8:05 AM EST Please notify: The most concerning issue with her labs is low potassium level. This likely relates to GI losses with diarrhea and the use of furosemide. 1) suggest that she start supplemental potassium - 20 meq twice per day for 3 days and then once per day. 2) would also hold the furosemide for now - but watch for any increase in swelling/edema. Thyroid level is very slightly off - but no changes needed at this time. Will check again in future WBC is similar to previous - still elevated. Please check if any new symptoms of infection (resp, urinary). Suggest recheck labs then end of this week if they are able. * Telephone Encounter - Jeanie Villagran RN - 04/29/2023 1:[address] Ribeiro Suri, patient's daughter calls in asking about the results of Marie's lab work that was done on 04/23/23-can you please review & let me know if you have any further recommendations. Suri states her mother does not seem to be improving, continues to complain of weakness & she does not want to eat much despite daughter's encouragement Thanks Jeanie Villagran RN documented in this encounter Plan of Treatment Upcoming Encounters Date Type Department Care Team (Late st Contact Info) Description 05/02/2023 3:00 PM EST Office Visit Orthopaedics [facility] [address] [place] [address] Chava Huff PA-C [address] [place] [address] 05/10/2023 2:00 PM EST Office Visit [place] [address] [facility], [place] [id number] Kalen Ribeiro MD [address] [place] [facility] [address] 06/28/2023 8:00 AM EDT Office Visit [facility] [address] [facility], [place] [id number] Kalen Ribeiro MD [address] [place] [facility] [address] 08/08/2023 2:20 PM EDT Office Visit Otolaryngology/Head & Neck/Facial Plastic Surgery [address] [place] [facility] [place] [address] Joesph Yun MD [address] [place] [address] 09/02/2023 9:00 AM EDT Office Visit Cardiology, [facility] [address] [place] [address] Halley Preston CRNP [address] [place] [address] 09/05/2023 10:30 AM EDT Rehab Services Voice Lab, [facility] [address] [facility] [address] Lance Samuels, [facility]-DIRECTOR OF FOOD AND NUTRITION SERVICES [address] [place] [address] 09/05/2023 11:00 AM EDT Appointment Rad[facility], [facility] [address] [facility] [phone] 02/10/2024 10:00 AM EST Cardiac Studies Cardiology, [facility] [address] [facility] [place] [address] [facility] [address] [place] [address] 02/13/2024 8:15 AM EST Cardiac Studies Cardiac Studies, [facility] [address] [facility] [place] [address] Scheduled Orders Name Type Priority Associated Diagnoses Orde r Schedule BASIC METABOLIC PANEL Lab Routine Hypokalemia Expected: 04/30/2023 (Approximate), Expires: 04/29/2024 CBC WITH WBC DIFFERENTIAL Lab Routine Leukocytosis, unspecified type Expected: 04/30/2023 (Approximate), Expires: 04/30/2024 Health Maintenance Due Date Last Done Comments Zoster Vaccines (2 of 3) 07/17/2007 05/22/2007 COVID-19 Vaccine ( season) 2022 12/26/2021, 02/14/2021, 06/09/2020, Additional history exists DXA Scan 02/14/2023 02/14/2021, 09/2020, 07/02/2017, Additional history exists Albumin/Creatinine Ratio 06/09/2023 06/08/2022, 05/11 GFR 10/22/2023 04/23/2023, 09/2023, 04/16/2023, Additional history exists Depression Screening 04/02/2024 04/02/2023 CKD PHOS USE SMARTSET 68513 04/17/20240 09/2023, 04/16/2023, 04/15/2023, Additional history exists CKD HGB USE SMARTSET 39612 04/23/202404/23, 04/23/2023, 04/17/2023, Additional history exists TSH 04/23/2024 04/23/2023, 07/2023, 12/25/2022, Additional history exists DTaP,Tdap,and Td Vaccines (2 - Td or Tdap) 08/14/2024 08/14/2014, 01/25/2000 Pneumococcal Vaccine: 65+ Years Completed 01/06/2015, 08/19/2007 VITAMIN D LEVEL ONCE IN A LIFETIME-USE SMARTSET# [id number] Completed 12/11/2018, 07/07/2018, 10/06/2010 Influenza Vaccine (FLU [...] this encounter Medical Devices Implanted Type Area Greens Planter Device Identifier Shelf Expiration Date Model / Serial / Lot Isabella Pacemaker-12/05 Implanted:Qty: 1 on 12/05/2022 ICD Chest [employer] : CARDIAC SURGERY 09/02/2025 [id number] / / . Lead-12/05/2022 Implanted:Qty: 2 on 12/05/2022 Lead Chest [employer] : CARDIAC SURGERY 10/28/2025 [id number] 3830 / / . Balloon Cath Pacing [id number] - [id number] Implanted:Qty: 1 on 09/20/2020 at [facility] BARD : MEDICAL [id number] 07/08/2022 520 [id number] / / [id number] Proglide Perclose [id number] X10 - [id number] Implanted:Qty: 1 on 09/20/2020 at [facility] : VASCULAR DEVICES [id number] 06/08/2022 11425-30 / / [id number] Valve Bg 3 Ultra 23mm - [id number] Implanted:Qty: 1 on 09/20/2020 by Dimitri Maya MD at [facility] [employer] [id number] 09/22/2022 [id number] / / . Lead Tempo Temp Pacing - [id number] Implanted:Qty: 1 on 09/20/2020 at [facility] [employer] [id number] 06/28/2021 [id number] / / [id number] documented as of this encounter Visit Diagnoses Diagnosis Hypokalemia- Primary Hypopotassemia Leukocytosis, unspecified type documented in this encounter [...] the patient have Health Care Power of Combine Mechanic? No Full Code 09/25/2020 6:44 PM 09/26/2020 [...] the patient have Health Care Power of Combine Mechanic? No Care Teams [employer] Sprayer Relationship Specialty Start Date End Date Kalen Ribeiro MD [address] [place] [facility] [place] [address] PCP - General 12/15/01 documented as of this encounter
--- OUTSIDE RECORDS SUMMARY | 2023-06-01 11:11 | External Medical Summary | Summary of Care ---
Author Name Unknown Organization [facility] Address [address] [place] [address] Phone [phone] Care Team Providers Care Category Development Manager Name Role Phone Kalen Ribeiro MD Primary Care Provider [phone] Reason for Visit * Reason Comments Status Check Weakness Encounter Details Date Type Department Care Team (Late st Contact Info) Description 04/10/2023 12:40 PM EST Office Visit [facility] [address] [place] [address] Kalen Ribeiro MD [address] [place] [address] Vocal cord paresis*; Oropharyngeal dysphagia; Generalized weakness; Loss of weight; Risk and functional assessment Allergies Active Allergy Reactions Criticality Noted Date Comments Heparin 10/07/2020 Concern for HIT documented as of this encounter (statuses as of 04/29/2023) Medications Medication Sig Dispensed Refills Start Date [...] 01/03/2023 Active Mirtazapine 15 MG Oral Tablet (Remeron)Indicati ons:Loss of weight Take 1 Tablet by mouth at bedtime. 90 Tablet 3 04/10/2023 Active Amoxicillin 500 MG Oral Capsule (Amoxil)Indicatio ns:S/P TAVR (transcatheter aortic valve replacement) Take 4 Caps by mouth once as needed (prior to dental work) for up to 1 dose. Take 4 capsules 1 hour prior to any dental work 4 Cap 4 11/10/2020 4 Discontinued Lisinopril 2.5 MG Oral Tablet (Prinivil) Take 1 Tablet by mouth in the morning. 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 [...] as of this encounter (statuses as of 04/29/2023) Resolved Problems Problem Noted Date Diagnosed Date [...] as of this encounter (statuses as of 04/29/2023) Immunizations Name Administration Dates Next Due COVID-19 mRNA, LNP-s, No Pre serve, 2-Dose Series (Moderna) 06/09/2020,05/12/2020 COVID-19, mRNA, LNP-s, PF, B ooster, 100mcg/0.5mg (Moderna) 02/14/2021 Covid-19, Mrna, Lnp-s, Pf, B ivalent, 30 Mcg, IM, 12 yrs and above (WHObyYOU) 12/26/2021 Pneumococcal Conjugate Vacc, 13 Valent (Prevnar) [...] Sign Reading Time Taken Comments Blood Pressure 102/58 04/10/2023 12:57 PM EST Pulse 82 04/10/2023 12:57 PM EST Temperature 36.7 C (98 F) 04/10/2023 12:57 PM EST Respiratory Rate 18 04/10/2023 12:57 PM EST Oxygen Saturation 99% 04/10/2023 12:57 PM EST Inhaled Oxygen Concentration - - Weight 48.4 kg (106 lb 9.6 oz) 04/10/2023 12:57 PM EST Height 145.4 cm (4' 9.24") 04/10/2023 12:[address] Body Mass Index 22.87 04/10/2023 12:57 PM EST documented in this encounter Functional Status Functional Status Response Date of Assess ment Are you deaf or do you have serious difficulty h earing? No 10/10/2020 Are you blind or do you have serious difficulty seeing, even when wearing glasses? No 10/10/2020 Do you have serious difficul ty walking or climbing stairs? (5 years old or older) No 10/10/2020 Do you have difficulty dress ing or bathing? (5 years old or older) No 10/10/2020 Because of a physical, menta l, or emotional condition, do you have difficulty doing errands alone such as visiting a doctor s office or shopping? (15 years old or older) No 10/11/19 21 Cognitive Status Response Date of Assessm ent Because of a physical, menta l, or emotional condition, do you have serious difficulty concentrating, remembering, or making decisions? (5 years old or older) No 10/10/2020 documented as of this encounter Patient Instructions * Patient Instructions* Claire Begum LPN - 04/10/2023 12:56 PM EST Patient Instructions - Fall Prevention (This education is for all patients over 65 regardless of symptoms) Remember to take your current medications as prescribed. In order to prevent falls, you are encouraged to: Exercise Utilize assistive/adaptive devices Avoid multifocal lenses when walking Avoid hazards in home Maintain a regular toileting schedule Any questions please contact our office. Preventing Falls in the Home (This education is for all patients over 65 regardless of symptoms) As you get older, falls are more likely. Thats because your reaction time slows. Your muscles and joints may also get stiffer, making them less flexible. Illness, medications, and vision changes can also affect your balance. A fall could leave you unable to live on your own. To make your home safer, follow these tips: Floors Put nonskid pads under area rugs Remove throw rugs Replace worn floor coverings Tack carpets firmly to each step on carpeted stairs. Put nonskid strips on the edges of uncarpeted stairs Keep floors and stairs free of clutter and cords Arrange furniture so there are clear pathways Clean up any spills right away Bathrooms Install grab bars in the tub or shower Apply nonskid strips or put a nonskid rubber mat in the tub or shower Sit on a bath chair to bathe Use bathmats with nonskid backing Lighting Keep a flashlight in each room Put a nightlight along the pathway between the bedroom and the bathroom Radharodolfo Patient Education Copyright 2008 - 2010 Kahlil except where otherwise noted Preventing Falls: Exercises to Improve Balance, Flexibility, Strength, and Staying Power (This education is for all patients over 65 regardless of symptoms) Certain types of exercises may help make you less likely to fall. Try the ones below. Or do other exercises that your healthcare provider suggests. Depending on your health, you may need to start slowly. Dont let that stop you. Even small amounts of exercise can help you. Be sure to talk to yourhealthcare provider before starting any exercise program. Improve Balance Many types of exercise can help improve balance. Ramirez chi and yoga are good examples. Heres another one to try. You can do it anytime and almost anywhere. Stand next to a counter or solid support. Push yourself up onto your tiptoes. Hold for 5 seconds. If you start to lose your balance, hold on to the counter. Rest and repeat 5 times. Work up to holding for 20 to 30 seconds, if you can. Increase Flexibility Being more flexible makes it easier for you to move around safely. Try exercises like the seated hamstring stretch. Sit in a chair and put one foot on a stool. Straighten your leg and reach with both hands down either side of your leg. Reach as far down your leg as you can. Hold for about 20 seconds. Go back to the starting position. Then repeat 5 times. Switch legs. Build Strength Resistance exercises help build strength. You can do them without equipment. Or you can use weights, elastic bands, or special machines. One such exercise is called the biceps curl. You can hold a 1 pound weight or even a can of soup. Do this exercise at least 3 times a week. Strive for everyday. Sit up straight in a chair. Keep your elbow close to your body and your wrist straight. Bend your arm, moving your hand up to your shoulder. Then slowly lower your arm. Repeat 5 times. Switch to the other arm. Build Your Staying Power Aerobic exercises make your heart and lungs stronger so you can keep moving longer. Walking and swimming are two of the best types of exercises you can do. Using a stationary bike is great, too. Find an aerobic exercise that you enjoy. Start slowly and build up. Even 5 minutes is helpful. Aimfor a goal of 30 minutes, at least 3 times a week. You dont have to do 30 minutes in one session. Break it up and walk a little throughout the day. More Helpful Tips Start easy. Slowly work up to doing more. Talk with your healthcare provider about the best exercises for you. Call senior centers or health clubs about exercise programs. If needed, have a family member watch you walk every so often to check your stability. Exercise with a friend. Choose an activity you both enjoy. Try exercises that you can do anytime, anywhere. Here are two examples. Have someone with you when you first try these: Practice walking by placing one foot right in front of the other. Stand up and sit down 10 times. Repeat this throughout the day. NextMedium Patient Education Copyright 2008 NextMedium except where otherwise noted. Preventing Falls: Moving Safely Using a Cane or Walker (This education is for all patients over 65 regardless of symptoms) Keep the cane away from your feet so you dont trip. A walking aid, such as a cane or walker, can help you stay more independent and avoid falls. Remember to keep your walking aid within easy reach when youre in a chair or in bed. And learn how to use it safely so you dont injure yourself. Using a Cane If you have a stronger side, hold the cane on that side. Get your balance. Move the cane and your weaker leg forward. Support your weight on both the cane and your weaker side. Step with your stronger leg. Start again from step 1. If youre using a folding walker, be sure you know how to lock it open. Check that its locked open before each use. Using a Walker Roll the walker (or lift it, if youre using one without wheels) forward about 12 inches. Step forward with your weaker leg first. Use the walker to help keep your balance. Bring your other foot forward to the center of the walker. Start again from step 1. Helpful Tips Check with your healthcare provider about the right walking aid to use. Ask about a walker with a seat attached. Check the tips of your cane or walker to make sure they have nonskid covers. Move slowly from room to room. Dont deras. Sit down to get dressed. Use a joey pack or backpack to keep your hands free. Get help for jobs that mean climbing, even on a stepstool. NextMedium Patient Education Copyright 2008 - 2010 NextMedium except where otherwise noted. Urinary Incontinence Plan of Care Documentation: (This education is for all patients over 65 regardless of symptoms) Current medications reconciled. Patient encouraged to: Practice kegal exercises Provide education materials Use the restroom every 2 hours throughout the day Limit caffeine, alcohol, spicy foods and acidic foods Keep a bladder diary Limit fluid intake 3-4 hours before bed Lose weight Prevent constipation Take fluid pills at a time when you can get to the bathroom quickly Control sugar better if diabetic Limit fluid intake to 60 oz. per day Wear support stockings (TEDs)if you have edema Claire Begum LPN 04/10/2023 Kegel Exercises Kegel exercises dont require special clothing or equipment. Theyre easy to learn and simple to do. And if you do them right, no one can tell youre doing them, so they can be done almost anywhere. Your doctor, nurse, or physical therapist can answer any questions you have and help you get started. A Weak Pelvic Floor The pelvic floor muscles may weaken due to aging, and vaginal childbirth, injury, surgery, chronic cough, or lack of exercise. If the pelvic floor is weak, your bladder and other pelvic organs may sag out of place. The urethra may also open too easily and allow urine to leak out. Kegel exercises can help you strengthen your pelvic floor muscles so they can better support the pelvic organs and control urine flow. How Kegel Exercises Are Done Try each of the Kegel exercises described below. When youre doing them, try not to move your leg, buttock, or stomach muscles. While youre urinating, try to stop the flow of urine. Start and stop it as often as you can. Contract as if you were stopping your urine stream, but do it when youre not urinating. Tighten your rectum as if trying not to pass gas. Contract your anus, but dont move your buttocks. Helpful Hints Do your Kegels as often as you can. The more you do them, the faster youll feel the results. Pick an activity you do often as a reminder. For instance, do your Kegels every time you sit down. Tighten your pelvic floor before you sneeze, get up from a chair, cough, laugh, or lift. This protects your pelvic floor from injury and can help prevent urine leakage. Try to hold each Kegel for a slow count to five. You probably wont be able to hold them for thatlong at first, but keep practicing. It will get easier as your pelvic floor gets stronger. Eventually, special weights that you place in your vagina may be recommended to help make your Kegels even more effective. Radharodolfo Patient Education Copyright 2008 - 2010 Radharodolfo except where otherwise noted. Here are some helpful tips for your urinary incontinence: (This education is for all patients over 65 regardless of symptoms) Practice Kegel exercises Use the restroom every 2 hours throughout the day Limit caffeine, alcohol, spicy foods, and acidic foods Keep a bladder diary Limit fluid intake 3-4 hours before bed Lose weight Prevent constipation Take fluid pills at a time when can get to the bathroom quickly Control sugar better if diabetic Limit fluid intake to 60 oz. per day Any questions, please feel free to contact our office. documented in this encounter Progress Notes * Kalen Ribeiro MD - 04/29/2023 9:01 PM EST Subjective: Marie Nieves is a 82 year old female here today for Chief Complaint Patient presents with Status Check Weakness Pt presents for follow up and status check. 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 Reviewed the work up to this point and reason for upcoming ENT eval at [facility]. Pt becoming increasingly more weak due to poor dietary intake. No new symptoms. Past Medical History: Diagnosis Date Closed fracture [...] performed by Andrew Dudley MD at ENDOSCOPY [facility] COLONOSCOPY, DIAGNOSTIC (RECTUM) 06/20/2017 adenomatous polyp, diverticulosis/COLONOSCOPY FLEXIBLE PROXIMAL DIAGNOSTIC performed by Andrew Dudley MD at [facility] DEXA SCAN/BONE MINERAL AXIAL 2006 osteoporosis, repeat 2 years DILATION AND CURETTAGE (D&C) unsure why ECHO (2-D COMPLETE) 10/12 Mild LVH, aortic scler - no stenosis EGD, FLEXIBLE, DIAGNOSTIC N/A 04/05/2023 ESOPHAGOGASTRODUODENOSCOPY (EGD), FLEXIBLE, TRANSORAL, DIAGNOSTIC performed by Manjit Webb MD at OR [facility] FRACTURE NOS 10/12 L Tibial Plateau ORIF LIGATE/CUT OVIDUCT(S) LIGATION/BIOPSY OF TEMPORAL ARTERY Left 06/18/2016 06/18/2016 left temportal artery bx dx benign - [facility] Dr. Garcia LUMBAR / SACRAL EPIDURAL, SINGLE LEVEL 10/04/2015 INJECTION TRANSFORAMINAL EPIDURAL LUMBAR OR SACRAL performed by David Costello DO at [facility] LUMBAR / SACRAL EPIDURAL, SINGLE LEVEL 10/25/2015 INJECTION TRANSFORAMINAL EPIDURAL LUMBAR OR SACRAL performed by David Costello DO at [facility] MISCELLANEOUS ORDER ([facility] ONLY) 12/15 excision lipoma forehead REPLACE AORTIC VALVE, PERCUTANEOUS FEMORAL N/A 09/20/2020 REPLACE AORTIC VALVE, PERCUTANEOUS FEMORAL performed by Dimitri Maya MD at [facility] REPLACE AORTIC VALVE, PERCUTANEOUS FEMORAL N/A 09/20/2020 REPLACE AORTIC VALVE, PERCUTANEOUS FEMORAL performed by Alexys Almazan MD, PhD at [facility] TOTAL ABD HYSTERECTOMY W/WO REMOVAL OF TUBE(S) 2007 SHARIF w/ Bilateral Salpingo-Oophorectomy Review of patient's allergies indicates: Allergen Reactions Heparin Concern for HIT Current Outpatient Medications Medication Sig Dispense Refill VITAMIN B-12 500 MCG OR TABS 2 Tablets. 0 DORZOLAMIDE HCL-TIMOLOL MAL 22.3-6.8 MG/ML OP SOLN Instill 1 Drop into eye in the morning and 1 Drop before bedtime. Acetaminophen ER 650 MG Oral Tablet Extended Release Take 1 Tablet by mouth every 8 hours as neededfor Pain, Mild. Aspirin 81 MG Oral Tablet Chewable Take 1 Tab by mouth daily. 30 Tab 3 Biotin 5 MG Oral Capsule Take 2 Capsules by mouth in the morning. Rocklatan 0.02-0.005 % Ophthalmic Solution (Netarsudil-Latanoprost) Instill into eye . Furosemide 20 MG Oral Tablet (Lasix) TAKE ONE TABLET BY MOUTH DAILY 90 Tablet 3 Levothyroxine Sodium 100 MCG Oral Tablet (Levoxyl) Take 1 Tablet by mouth in the morning. (at least30 min prior to breakfast or other meds). 90 Tablet 3 Famotidine 20 MG Oral Tablet (Pepcid) Take 1 Tablet by mouth in the morning and 1 Tablet before bedtime. 60 Tablet 11 Atorvastatin Calcium 20 MG Oral Tablet (Lipitor) TAKE 1 TABLET BY MOUTH ONCE DAILY 90 Tablet 3 Mirtazapine 15 MG Oral Tablet (Remeron) Take 1 Tablet by mouth at bedtime. 90 Tablet 3 Pantoprazole Sodium 40 MG Oral Tablet Delayed Release (Protonix) TAKE 1 TABLET BY MOUTH ONCE DAILY 90 Tablet 1 No current facility-administered medications for this visit. Objective: BP 102/58 | Pulse 82 | Temp 36.7 C (98 F) (Temporal Artery) | Resp 18 | Ht 1.454 m (4' 9.24") | Wt 48.4 kg (106 lb 9.6 oz) | SpO2 99% | BMI 22.87 kg/m | BSA 1.4 m GEN: NAD HEENT: Benign NECK: Supple with no LAD, TM, JVD CHEST: CTA B CV: RRR ABD: Soft, NT/ND, No HSM, NABS EXT: No c,c,e Assessment and Plan: Vocal cord paresis (Primary) Oropharyngeal dysphagia Generalized weakness Loss of weight - trial of Mirtazapine 15 MG Oral Tablet (Remeron); Take 1 Tablet by mouth at bedtime. To stimulateappetite - CBC; Future; Expected date: 04/10/2023 - COMPREHENSIVE METABOLIC PANEL; Future; Expected date: 04/10/2023 -appt with ENT at [facility] as planned. Risk and functional assessment 35 min with pt and chart review Kalen Ribeiro MD documented in this encounter Nursing Notes * Claire Begum LPN - 04/10/2023 12:56 PM EST The patient has been properly identified by confirmation of name and date of . Chief Complaint Patient presents with Status Check Weakness documented in this encounter Plan of Treatment Upcoming Encounters Date Type Department Care Team (Late st Contact Info) Description 05/02/2023 3:00 PM EST Office Visit Orthopaedics [facility] [address] [place] [address] Chava Huff PA-C [address] [place] [address] 06/28/2023 8:00 AM EDT Office Visit [facility] [address] [place] [id number] Kalen Ribeiro MD [address] [place] [address] 08/08/2023 2:20 PM EDT Office Visit Otolaryngology/Head & Neck/Facial Plastic Surgery [address] [place] [address] Joesph Yun MD [address] [place] [address] 09/02/2023 9:00 AM EDT Office Visit Cardiology, [facility] [address] [place] [address] Halley Preston CRNP [address] [place] [address] 09/05/2023 10:30 AM EDT Rehab Services Voice Lab, [facility] [address] [place] [address] Lance Samuels, [facility] [address] [place] [address] 09/05/2023 11:00 AM EDT Appointment Radiology, [facility] [address] [place] [address] 02/10/2024 10:00 AM EST Cardiac Studies Cardiology, [facility] [address] [place] [address] [place] [address] [place] [address] 02/13/2024 8:15 AM EST Cardiac Studies Cardiac Studies, [facility] [address] [place] [address] Health Maintenance Due Date Last Done Comments Zoster Vaccines (2 of 3) 07/17/2007 05/22/2007 COVID-19 Vaccine ( season) 2022 12/26/2021, 02/14/2021, 06/09/2020, Additional history exists DXA Scan 02/14/2023 02/14/2021, 09/2020, 07/02/2017, Additional history exists Albumin/Creatinine Ratio 06/09/2023 06/08/2022, 3 03/2021 GFR 10/22/2023 04/23/2023, 0 09/2023, 04/16/2023, Additional history exists Depression Screening 04/02/2024 04/02/2023 CKD PHOS USE SMARTSET 65799 04/17/20240 09/2023, 04/16/2023, 04/15/2023, Additional history exists CKD HGB USE SMARTSET 55806 04/23/202404/23, 04/23/2023, 04/17/2023, Additional history exists TSH 04/23/2024 04/23/2023, 0 07/2023, 12/25/2022, Additional history exists DTaP,Tdap,and Td Vaccines (2 - Td or Tdap) 08/14/2024 08/14/2014, 01/25/2000 Pneumococcal Vaccine: 65+ Years Completed 01/06/2015, 08/19/2007 VITAMIN D LEVEL ONCE IN A LIFETIME-USE SMARTSET# 85202 Completed 12/11/2018, 07/07/2018, 10/06/2010 Influenza Vaccine (FLU [...] this encounter Medical Devices Implanted Type Area Fluid Jet Cutter Operator Device Identifier Shelf Expiration Date Model / Serial / Lot [place] Pacemaker-12/05 Implanted:Qty: 1 on 12/05/2022 ICD Chest [employer] : CARDIAC SURGERY 09/02/2025 [id number] / / . Lead-12/05/2022 Implanted:Qty: 2 on 12/05/2022 Lead Chest [employer] : CARDIAC SURGERY 10/28/2025 [id number] / / . Balloon Cath Pacing [id number] - [id number] Implanted:Qty: 1 on 09/20/2020 at [facility] : MEDICAL [id number] 07/08/2022 [id number] / / [id number] Proglide Perclose [id number] X10 - [id number] Implanted:Qty: 1 on 09/20/2020 at [facility] : VASCULAR DEVICES [id number] 06/08/2022 [id number] / / [id number] Valve Bg 3 Ultra 23mm - [id number] Implanted:Qty: 1 on 09/20/2020 by Dimitri Maya MD at [facility] [employer] [id number] 09/22/2022 [id number] / / . Lead Tempo Temp Pacing - [id number] Implanted:Qty: 1 on 09/20/2020 at [facility] [employer] [id number] 06/28/2021 [id number] / / [id number] documented as of this encounter Results * (ABNORMAL) COMPREHENSIVE METABOLIC PANEL (04/10/2023 2:04 PM EST) BUN 13 6 - 20 mg/dL 04/11/2023 1:02 AM EST LABORATORY [facility] Creatinine 0.7 0.5 - 1.0 mg/dL 04/11/2023 1:02 AM EST [facility] Estimated Glomerular Filtration Rate 88 >=60 mL/min 04/11/2023 1:02 AM EST [facility] Comment:eGFR is calculated b ased on the CKD-EPI 2020 equation Sodium 139 135 - 146 mmol/L 04/11/2023 1:02 AM EST [facility] Potassium 3.6 3.5 - 5.1 mmol/L 04/11/2023 1:02 AM EST [facility] Chloride 97(L) 98 - 107 mmol/L 04/11/2023 1:02 AM EST [facility] CO2 26 22 - 32 mmol/L 04/11/2023 1:02 AM EST [facility] Anion Gap 16(H) 7 - 15 mmol/L 04/11/2023 1:02 AM EST [facility] Glucose 120 70 - 120 mg/dL 04/11/2023 1:02 AM EST [facility] Albumin 3.7(L) 3.8 - 5.0 g/dL 04/11/2023 1:02 AM EST [facility] AST 25 10 - 35 U/L 04/11/2023 1:02 AM EST [facility] Alkaline Phosphatase 47 35 - 130 U/L 04/11/2023 1:02 AM EST [facility] Bilirubin, Total 0.7 <=1.2 mg/dL 04/11/2023 1:02 AM EST [facility] Calcium 9.1 8.4 - 10.2 mg/dL 04/11/2023 1:02 AM EST [facility] Protein 6.3 6.0 - 8.3 g/dL 04/11/2023 1:02 AM EST [facility] ALT 13 10 - 35 U/L 04/11/2023 1:02 AM EST [facility] Blood Venous blood specimen / Unknown Venipuncture / Unknown 04/10/2023 2:04 PM EST 04/10/2023 2:04 PM EST Kalen Ribeiro MD LAB BLOOD ORDERABL ES [facility] [address] [place] [address] * (ABNORMAL) CBC (04/10/2023 2:04 PM EST) WBC 20.73(H) 4.00 - 10.80 K/uL 04/10/2023 10:56 PM EST [facility] RBC 4.24 3.85 - 5.15 M/uL 04/10/2023 10:56 PM EST [facility] HGB 13.3 12.0 - 15.3 g/dL 04/10/2023 10:56 PM EST [facility] HCT 41.1 36.0 - 45.2 % 04/10/2023 10:56 PM EST [facility] MCV 96.9 81.5 - 97.5 fL 04/10/2023 10:56 PM EST [facility] MCH 31.4 27.0 - 34.0 pg 04/10/2023 10:56 PM EST [facility] MCHC 32.4 32.0 - 36.0 g/dL 04/10/2023 10:56 PM EST [facility] RDW 12.7 11.5 - 15.5 % 04/10/2023 10:56 PM EST [facility] PLT 354 140 - 400 K/uL 04/10/2023 10:56 PM EST [facility] MPV 10.0 6.6 - 11.1 fL 04/10/2023 10:56 PM EST [facility] nRBCs 0 <=0 /100 WBCs 04/10/2023 10:56 PM EST [facility] Blood Venous blood specimen / Unknown Venipuncture / Unknown 04/10/2023 2:04 PM EST 04/10/2023 2:04 PM EST Kalen Ribeiro MD LAB BLOOD ORDERABL ES Performing Organization Address City/State/[facility] Co de Phone Number LABORATORY [facility] [address] [place] [address] documented in this encounter Visit Diagnoses Diagnosis Vocal cord paresis- Primary Paralysis of vocal cords or larynx, unspecified Oropharyngeal dysphagia Dysphagia, oropharyngeal phase Generalized weakness Other malaise and fatigue Loss of weight Risk and functional assessment Screening for unspecified condition documented in this encounter Advance Directives Latest [...] the patient have Health Care Power of Retail District Manager? No Full Code 09/25/2020 6:44 PM [...] the patient have Health Care Power of Retail District Manager? No Care Teams Category Development Manager Relationship Specialty Start Date End Date Kalen Ribeiro MD [address] [place] [address] PCP - General 12/15/01 documented as of this encounter
--- OUTSIDE RECORDS SUMMARY | 2023-06-01 11:11 | External Medical Summary | Summary of Care ---
Author Name Unknown Organization [facility] Address [address] [place] [address] Phone [phone] Care Team Providers Care Lean Manufacturing Engineer Name Role Phone Kalen Ribeiro MD Primary Care Provider +1- [phone] Reason for Visit * Reason Onset Date Comments Test Results 01/28/2023 Encounter Details Date Type Department Care Team ([facility] st Contact Info) Description 01/28/2023 Telephone [facility] [address] [place] [address] Kalen Ribeiro MD [address] [place] [address] Test Results Allergies Active Allergy Reactions Criticality Noted Date [...] ONCE DAILY 90 Tablet 3 01/03/2023 Active documented as of this encounter (statuses [...] aorta 07/14/2021 Atherosclerotic heart diseas e of [place] coronary artery with other forms of angina [...] 30 Mcg, IM, 12 yrs and above (Klip.in) 12/26/2021 Pneumococcal Conjugate Vacc, 13 Valent (Prevnar) [...] (15 years old or older) No 10/11/19 Cognitive Status Response Date of Assessm ent Because of a physical, menta l, or emotional condition, do you have serious difficulty concentrating, remembering, or making decisions? (5 years old or older) No 10/10/2020 documented as of this encounter Miscellaneous Notes * Telephone Encounter - Yari Xiong LPN - 01/29/2023 9:39 AM EST Patient has been informed of below message and verbalized understanding. * Telephone Encounter - Kalen Ribeiro MD - 01/28/2023 6:20 PM EST Please notify thyroid level and magnesium level normal. No changes needed * Telephone Encounter - Yari Xiong LPN - 01/28/2023 2:59 PM EST Please advise * Telephone Encounter - Dian Blank OSA - 01/28/2023 12:46 PM EST Who is Requesting Test Results: Pt Primary Care Provider : Kalen Ribeiro MD Tests Results Requested : lab Date of Test : 12/25/22 Location of Test: [facility] Ordering Provider: Dr Ribeiro Callback Number: [phone] Patient has been made aware that the turnaround time for test results are typically as follows: Laboratory results = within 2-3 days ([facility]), 3-5 days (Non[facility], ie. [facility]) documented in this encounter Plan of Treatment Upcoming Encounters Date Type Department Care Team (Late st Contact Info) Description 05/02/2023 3:00 PM EST Office [facility] [address] [facility] [address] Chava Huff [facility]-C [address] [facility] [address] 06/28/2023 8:00 AM EDT Office Visit [facility] [address] [place] [address] Kalen Ribeiro MD [address] [place] [address] 08/08/2023 2:20 PM EDT Office Visit Otolaryngology/Head & Neck/Facial Plastic Surgery [address] [place] [address] Joesph Yun MD [address] [place] [address] 09/02/2023 9:00 AM EDT Office Visit Cardiology, [facility] [address] [place] [address] Halley Preston CRNP [address] [place] [address] 09/05/2023 10:30 AM EDT Rehab Services Voice Lab, [facility] [address] [place] [address] Lance Samuels, [facility] HOGGER OPERATOR [address] [place] [address] 09/05/2023 11:00 AM EDT Appointment Radiology, [facility] [address] [facility] [place] [address] 02/10/2024 10:00 AM EST Cardiac Studies Cardiology, [facility] 132 [facility] [place] [address] [place] [address] [facility] [place] [address] 02/13/2024 8:15 AM EST Cardiac Studies Cardiac Studies, [facility] [address] [facility] [place] [address] Health Maintenance Due Date Last Done Comments Zoster Vaccines (2 of 3) 07/17/2007 05/22/2007 COVID-19 Vaccine ( season) 2022 12/26/2021, 02/14/2021, 06/09/2020, Additional history exists DXA Scan 02/14/2023 02/14/2021, 09/2020, 07/02/2017, Additional history exists Albumin/Creatinine Ratio 06/09/2023 06/08/2022, 05/11 GFR 10/22/2023 04/23/2023, 09/2023, 04/16/2023, Additional history exists Depression Screening 04/02/2024 04/02/2023 CKD PHOS USE SMARTSET 33136 04/17/2024/0 09/2023, 04/16/2023, 04/15/2023, Additional history exists CKD HGB USE SMARTSET 57840 04/23/202404/23, 04/23/2023, 04/17/2023, Additional history exists TSH 04/23/2024 04/23/2023, 07/2023, 12/25/2022, Additional history exists DTaP,Tdap,and Td Vaccines (2 - Td or Tdap) 08/14/2024 08/14/2014, 01/25/2000 Pneumococcal Vaccine: 65+ Years Completed 01/06/2015, 08/19/2007 VITAMIN D LEVEL ONCE IN A LIFETIME-USE SMARTSET# 64247 Completed 12/11/2018, 07/07/2018, 10/06/2010 Influenza Vaccine (FLU [...] this encounter Medical Devices Implanted Type Area Steeplechase Jockey Device Identifier Shelf Expiration Date Model / Serial / Lot [place] Pacemaker-12/05 Implanted:Qty: 1 on 12/05/2022 ICD Chest MED[employer] : CARDIAC SURGERY 09/02/2025 [id number] / / . Lead-12/05/2022 Implanted:Qty: 2 on 12/05/2022 Lead Chest [employer] : CARDIAC SURGERY 10/28/2025 [id number] 3830 / / . Balloon Cath Pacing [id number] - [id number] Implanted:Qty: 1 on 09/20/2020 at [facility] [employer] BARD : MEDICAL [id number] 07/08/2022 [id number] / / [id number] Proglide Perclose 69795-00 X10 - [id number] Implanted:Qty: 1 on 09/20/2020 at [facility] : VASCULAR DEVICES [id number] 06/08/2022 10572-78 / / [id number] Valve Bg 3 Ultra 23mm - [id number] Implanted:Qty: 1 on 09/20/2020 by Dimitri Maya MD at [facility] [employer] [id number] 09/22/2022 [id number] / / . Lead Tempo Temp Pacing - [id number] Implanted:Qty: 1 on 09/20/2020 at [facility] [employer] [id number] 06/28/2021 [id number] / / [id number] documented as of this encounter Additional Health [...] the patient have Health Care Power of Lead Architect? No Full Code 09/25/2020 6:44 PM 09/26/2020 [...] the patient have Health Care Power of Lead Architect? No Care Teams Lean Manufacturing Engineer Relationship Specialty Start Date End Date Kalen Ribeiro MD [address] [place] [address] PCP - General 12/15/01 documented as of this encounter
--- OUTSIDE RECORDS SUMMARY | 2023-06-01 11:11 | External Medical Summary ---
Author Name Unknown Address Unknown Organization K01:LABORATORY [facility] - [address] [facility] [address] Laboratory Report Ordering Provider Test Date Status CHANTALE ALCAZAR 05/03/2023 13:39:55 Final Observation Date Value Abnormality Reference (Units ) Status SYNC LEUKOCYTES IN BLOOD BY AUTOMATED COUNT 05/03/2023 13:39:55 20.45 Above high normal 4.00-10.80 (K/uL) Final Segs 05/03/2023 13:39:55 87.2 Above high normal 40.0-75.0 (%) Final Lymphs % 05/03/2023 13:39:55 4.7 Below low normal 18.0-42.0 (%) Final Monos 05/03/2023 13:39:55 5.1 1.0-11.0 (%) Final Eosinophils 05/03/2023 13:39:55 1.4 0.0-6.0 (%) Final Basos 05/03/2023 13:39:55 0.6 0.0-2.0 (%) Final Immature Granulocyte, Percent 05/03/2023 13:39:55 1.0 0.0-2.0 (%) Final Absolute Segs 05/03/2023 13:39:55 17.83 Above high normal 1.80-7.70 (K/uL) Final Lymphs, absolute 05/03/2023 13:39:55 0.97 Below low normal 1.00-4.80 (K/ul) Final Monos, Abs 05/03/2023 13:39:55 1.05 0.00-1.10 (K/uL) Final Eos, Abs 05/03/2023 13:39:55 0.28 0.00-0.70 (K/uL) Final Basos, Abs 05/03/2023 13:39:55 0.12 0.00-0.20 (K/uL) Final Immature Granulocytes, Number 05/03/2023 13:39:55 0.20 0.00-0.20 (K/uL) Final Performing Location LABORATORY [facility] - [facility] [address] [facility] [address]
--- OUTSIDE RECORDS SUMMARY | 2023-06-01 11:11 | External Medical Summary ---
Author Name Unknown Address Unknown Organization K01:LABORATORY [facility] - [facility] [address] [facility] [address] [place] [address] Laboratory Report Ordering Provider Test Date Status CHANTALE ALCAZAR 05/03/2023 13:39:55 Final Observation Date Value Abnormality Reference (Units ) Status WBC, Total 05/03/2023 13:39:55 20.45 Above high normal 4.00-10.80 (K/uL) Final RBC 05/03/2023 13:39:55 3.82 3.85-5.15 (M/uL) Final Hemoglobin 05/03/2023 13:39:55 11.7 Below low normal 12.0-15.3 (g/dL) Final HCT 05/03/2023 13:39:55 36.3 36.0-45.2 (%) Final MCV 05/03/2023 13:39:55 95.0 81.5-97.5 (fL) Final MCH 05/03/2023 13:39:55 30.6 27.0-34.0 (pg) Final MCHC 05/03/2023 13:39:55 32.2 32.0-36.0 (g/dL) Final RDW 05/03/2023 13:39:55 13.1 11.5-15.5 (%) Final Platelets 05/03/2023 13:39:55 416 Above high normal 140-400 (K/uL) Final MPV 05/03/2023 13:39:55 10.1 6.6-11.1 (fL) Final Nucleated erythrocytes/100 leukocytes [Ratio] in Blood by Automated count 05/03/2023 13:39:55 0 <=0 (/100 WBCs) Final Performing Location LABORATORY [facility] - [address] [place] [address]
--- OUTSIDE RECORDS SUMMARY | 2023-06-01 11:11 | External Medical Summary ---
Author Name Unknown Address Unknown Organization K01:LABORATORY [facility] - [address] [facility] [address] Laboratory Report Ordering Provider Test Date Status OTTONIELCHANTALE 04/23/2023 12:30:43 Final Observation Date Value Abnormality Reference (Units ) Status SYNC LEUKOCYTES IN BLOOD BY AUTOMATED COUNT 04/23/2023 12:30:43 19.80 Above high normal 4.00-10.80 (K/uL) Final Segs 04/23/2023 12:30:43 90.0 Above high normal 40.0-75.0 (%) Final Lymphs % 04/23/2023 12:30:43 3.8 Below low normal 18.0-42.0 (%) Final Monos 04/23/2023 12:30:43 4.2 1.0-11.0 (%) Final Eosinophils 04/23/2023 12:30:43 0.7 0.0-6.0 (%) Final Basos 04/23/2023 12:30:43 0.5 0.0-2.0 (%) Final Immature Granulocyte, Percent 04/23/2023 12:30:43 0.8 0.0-2.0 (%) Final Absolute Segs 04/23/2023 12:30:43 17.83 Above high normal 1.80-7.70 (K/uL) Final Lymphs, absolute 04/23/2023 12:30:43 0.75 Below low normal 1.00-4.80 (K/ul) Final Monos, Abs 04/23/2023 12:30:43 0.84 0.00-1.10 (K/uL) Final Eos, Abs 04/23/2023 12:30:43 0.13 0.00-0.70 (K/uL) Final Basos, Abs 04/23/2023 12:30:43 0.10 0.00-0.20 (K/uL) Final Immature Granulocytes, Number 04/23/2023 12:30:43 0.15 0.00-0.20 (K/uL) Final Performing Location LABORATORY [facility] - [facility] [address] [facility] [address]
--- OUTSIDE RECORDS SUMMARY | 2023-06-01 11:11 | External Medical Summary ---
Author Name Unknown Address Unknown Organization K01:LABORATORY [facility] - [address] [place] [address] Laboratory Report Ordering Provider Test Date Status CHANTALE ALCAZAR 04/23/2023 12:30:43 Final Observation Date Value Abnormality Reference (Units ) Status Magnesium 04/23/2023 12:30:43 1.8 1.5-2.6 (m g/dL) Final Performing Location LABORATORY [facility] - [address] [place] [address]
--- OUTSIDE RECORDS SUMMARY | 2023-06-01 11:11 | External Medical Summary | Summary of Care ---
Author Name Unknown Organization [facility] Address [address] [place] [address] Phone [phone] Care Team Providers Care Science Editor Name Role Phone Kalen Ribeiro MD Primary Care Provider +1- [phone] Reason for Referral * Evaluate & Treat - Unlimited Visits (Within 3 days (urgent)) - Authorized Specialty Diagnoses / Procedures Referred By Contact Referred To Contact GI NUTRITION/IM / Gastroenterology Chava Huff PA-C [address] [place] [address] Referral ID Status Reason Start Date Expiration Date Visits Requested Visits Authorized [id number] Authorized Specialty Services Required 05/03/2023 999 999 Question Answer Referral Priority Within 3 days (urgent) Where should this appointment be scheduled? [facility] For what condition is the patient being seen? Malnutrition Do not place this order. Place Nutrition-Clinical Dietitian Referral [[id number]]. Acknowledge Reason for Visit * Reason Comments Follow Up L knee Encounter Details Date Type Department Care Team (Latest Contact Info) Description 05/03/2023 3:30 PM EST Office Visit Orthopaedics [facility] [address] [place] [address] Chava Huff PA-C [address] [place] [address] Primary osteoarthritis of left knee* Allergies Active [...] left knee 2 mL IJ ONCE 05/03/2023 05/04/19 24 Active documented as of this encounter (statuses [...] aorta 07/14/2021 Atherosclerotic heart diseas e of [place] coronary artery with other forms of angina [...] consent and time-out procedure was updated per [facility] standard protocol. The patienthas no other questions [...] called to verify the correctpatient, procedure, equipment, functional support analyst and site/side marked as required. Patient was prepped and draped in the usual sterile fashion. This chart was completed in part utilizing ObjectWay Speech Voice Recognition Software. Grammatical errors, random [...] Description 05/10/2023 2:00 PM EST Office Visit [facility] [address] [facility] [address] Kalen Ribeiro MD [address] [facility] [address] 06/28/2023 8:00 AM EDT Office Visit Family [facility] [place] [address] [facility] [address] Kalen Ribeiro MD [address] [place] [address] 08/01/2023 3:00 PM EDT Office Visit Orthopaedics [facility] [address] [place] [address] Chava Huff PA-C [address] [place] [address] 08/08/2023 2:20 PM EDT Office Visit Otolaryngology/Head & Neck/Facial Plastic Surgery [address] [facility] [place] [address] Joesph Yun MD [address] [place] [address] 09/02/2023 9:00 AM EDT Office Visit Cardiology, [facility] [address] [place] [address] Halley Preston CRNP [address] [place] [address] 09/05/2023 10:30 AM EDT Rehab Services Voice Lab, [facility] [address] [facility] [address] Lance Samuels, [facility] DIRECTOR OF HOME HEALTH SALES [address] [place] [address] 09/05/2023 11:00 AM EDT Appointment Radiology, [facility] [address] [facility] [id number] 02/10/2024 10:00 AM EST Cardiac Studies Cardiology, [facility] [address] [facility] [address] [facility] 132 [facility] [place] [address] 02/13/2024 8:15 AM EST Cardiac Studies Cardiac Studies, [facility] [address] [facility] [place] [address] Scheduled Referrals Name Type Priority Associated Diagnoses [...] Screening 04/02/2024 04/02/2023 CKD PHOS USE SMARTSET 57075 04/17/[address]240 09/2023, 04/16/2023, 04/15/2023, Additional history exists CKD HGB USE SMARTSET 08864 04/23/202404/23, 04/23/2023, 04/17/2023, Additional history exists TSH 04/23/2024 04/23/2023, 07/2023, 12/25/2022, Additional history exists DTaP,Tdap,and Td Vaccines (2 - Td or Tdap) 08/14/2024 08/14/2014, 01/25/2000 Pneumococcal Vaccine: 65+ Years Completed 01/06/2015, 08/19/2007 VITAMIN D LEVEL ONCE IN A LIFETIME-USE SMARTSET# 85948 Completed 12/11/2018, 07/07/2018, 10/06/2010 Influenza Vaccine (FLU [...] this encounter Medical Devices Implanted Type Area Rough Rounder Device Identifier Shelf Expiration Date Model / Serial / Lot [place] Pacemaker-12/05 Implanted:Qty: 1 on 12/05/2022 ICD Chest MED[employer] : CARDIAC SURGERY 09/02/2025 [id number] / / . Lead-12/05/2022 Implanted:Qty: 2 on 12/05/2022 Lead Chest [employer] : CARDIAC SURGERY 10/28/2025 5076 AND 3830 / / . Balloon Cath Pacing [id number] - [id number] Implanted:Qty: 1 on 09/20/2020 at [facility] BARD : MEDICAL [id number] 07/08/2022 520 [id number] / / [id number] Proglide Perclose 16760-39 X10 - [id number] Implanted:Qty: 1 on 09/20/2020 at [facility] : VASCULAR DEVICES [id number] 06/08/2022 [id number] / / [id number] Valve Bg 3 Ultra 23mm - [id number] Implanted:Qty: 1 on 09/20/2020 by Dimitri Maya MD at [facility] [employer] [id number] 09/22/2022 [id number] / / . Lead Tempo Temp Pacing - [id number] Implanted:Qty: 1 on 09/20/2020 at [facility] [employer] [id number] 06/28/2021 T1106 / / [id number] documented as of this encounter Procedures Procedure Name Priority Date/Time Associated Diagnosis Comments ND ARTHROCENTESIS ASPIR&/INJ MAJOR JT/BURSA W/O US Routine 05/03/2023 4:04 PM EST Primary osteoarthritis of left knee documented in this encounter Results * ND ARTHROCENTESIS ASPIR&/INJ MAJOR JT/BURSA W/O US (05/03/2023 [...] to verify the correct patient, procedure, equipment, functional support analyst and site/side marked as required. Patient was prepped and draped in the usual sterile fashion. Chava Huff PA-C PROCDOC FORM documented in this encounter Visit Diagnoses Diagnosis Primary osteoarthritis of left knee- Primary Primary localized osteoarthrosis, lower leg documented in this encounter Advance Directives Latest [...] the patient have Health Care Power of Mask Former? No Full Code 09/25/2020 6:44 PM 09/26/2020 [...] the patient have Health Care Power of Mask Former? No Care Teams Science Editor Relationship Specialty Start Date End Date Kalen Ribeiro MD [address] [place] [address] PCP - General 12/15/01 documented as of this encounter
--- OUTSIDE RECORDS SUMMARY | 2023-06-01 11:11 | External Medical Summary | Summary of Care ---
Author Name Unknown Organization [facility] Address [address] [place] [address] Phone [phone] Care Team Providers Care Motor Coach Bus Driver Name Role Phone Kalen Ribeiro MD Primary Care Provider +1- [phone] Encounter Details Date Type Department Care Team (Late st Contact Info) Description 04/23/2023 2:00 PM EST Scheduled Telephone Care Coordination and Integration [address], [place] [id number] Peggy Saavedra, CARLIE [address], [place] [id number] Allergies Active Allergy Reactions Criticality Noted Date [...] aorta 07/14/2021 Atherosclerotic heart diseas e of [place] coronary artery with other forms of angina [...] as of this encounter Progress Notes * Peggy Saavedra OSA - 04/23/2023 2:27 PM EST See other encounter no call needed per Jeanie Saavedra [facility] Rough Planer Tender Call or Text- [phone] documented in this encounter Plan of Treatment Upcoming Encounters Date Type Department Care Team (Late st Contact Info) Description 06/28/2023 8:00 AM EDT Office Visit [address] [address] Kalen Ribeiro MD [address] [place] [address] 08/08/2023 2:20 PM EDT Office Visit Otolaryngology/Head & Neck/Facial Plastic Surgery [address] [place] [address] Joesph Yun MD [address] [place] [address] 09/02/2023 9:00 AM EDT Office Visit Cardiology, [facility] [address] [facility] [place] [place] [address] Halley Preston CRNP [address] [facility] [address] 09/05/2023 10:30 AM EDT Rehab Services Voice Lab, [address] [address] Lance Samuels, [facility] [address] 09/05/2023 11:00 AM EDT Appointment Radiology, [address] [address] 02/10/2024 10:00 AM EST Cardiac Studies Cardiology, [facility] [place] [address] [facility] [place] [address] 02/13/2024 8:15 AM EST Cardiac Studies Cardiac Studies, [facility] 132 [facility] [place] [address] Health Maintenance Due Date Last Done Comments Zoster Vaccines (2 of 3) 07/17/2007 05/22/2007 COVID-19 Vaccine ( season) 2022 12/26/2021, 02/14/2021, 06/09/2020, Additional history exists DXA Scan 02/14/2023 02/14/2021, 09/2020, 07/02/2017, Additional history exists Albumin/Creatinine Ratio 06/09/2023 06/08/2022, 05/11 GFR 10/16/2023 04/17/2023, 08/2023, 04/15/2023, Additional history exists Depression Screening 04/02/2024 04/02/2023 TSH 04/15/2024 04/15/2023, 12/09, 06/08/2022, Additional history exists CKD HGB USE SMARTSET 97049 04/17/202404/17, 04/16/2023, 04/15/2023, Additional history exists CKD PHOS USE SMARTSET 80289 04/17/202409/2023, 04/16/2023, 04/15/2023, Additional history exists DTaP,Tdap,and Td Vaccines (2 - Td or Tdap) 08/14/2024 08/14/2014, 01/25/2000 Pneumococcal Vaccine: 65+ Years Completed 01/06/2015, 08/19/2007 VITAMIN D LEVEL ONCE IN A LIFETIME-USE SMARTSET# 49621 Completed 12/11/2018, 07/07/2018, 10/06/2010 Influenza Vaccine (FLU [...] this encounter Medical Devices Implanted Type Area Flour Worker Device Identifier Shelf Expiration Date Model / Serial / Lot [employer] Pacemaker-12/05 Implanted:Qty: 1 on 12/05/2022 ICD Chest [employer] : CARDIAC SURGERY 09/02/2025 [id number] / / . Lead-12/05/2022 Implanted:Qty: 2 on 12/05/2022 Lead Chest [employer] : CARDIAC SURGERY 10/28/2025 5076 AND 3830 / / . Lead Tempo Temp Pacing - [id number] Implanted:Qty: 1 on 09/20/2020 by Dimitri Maya MD at [facility] [employer] [id number] 06/28/2021 T1106 / / [id number] documented as of this encounter Advance Directives [...] the patient have Health Care Power of Law Instructor? No Full Code 09/25/2020 6:44 PM 09/26/2020 [...] the patient have Health Care Power of Law Instructor? No Care Teams Motor Coach Bus Driver Relationship Specialty Start Date End Date Kalen Ribeiro MD [address] [place] [address] PCP - General 12/15/01 documented as of this encounter
--- OUTSIDE RECORDS SUMMARY | 2023-06-01 11:11 | External Medical Summary | Summary of Care ---
Author Name Unknown Organization [facility] Address [address] [place] [address] Phone [phone] Care Team Providers Care Database Design Analyst Name Role Phone Ottoniel Kenyon MD Primary Care Provider +1- [phone] Reason for Visit * Reason Onset Date Comments Home Health 04/30/2023 Med Request 04/30/2023 Encounter Details Date Type Department Care Team (Late st Contact Info) Description 04/30/2023 Telephone [facility] [address] [place] [address] Ottoniel Kenyon MD [address] [place] [address] Home Health; Med Request Allergies Active Allergy Reactions Criticality Noted Date [...] 04/30/2023 Active Mirtazapine 15 MG Oral Tablet (Remeron)Indicati ons:Loss of weight Take 1 Tablet by mouth at bedtime. 90 Tablet 3 04/30/2023 Active Mirtazapine 15 MG Oral Tablet (Remeron)Indicati [...] aorta 07/14/2021 Atherosclerotic heart diseas e of [place] coronary artery with other forms of angina [...] 30 Mcg, IM, 12 yrs and above ([employer]) 12/26/2021 Pneumococcal Conjugate Vacc, 13 Valent (Prevnar) [...] encounter Miscellaneous Notes * Telephone Encounter - Ottoniel Kenyon MD - 04/30/2023 5:22 PM ESTSigned Prescriptions: Disp Refills Mirtazapine 15 MG Oral Tablet (Remeron) 90 Tab*3 Sig: Take 1 Tablet by mouth at bedtime.Authorizing Provider: OTTONIEL KENYON * Telephone Encounter - Gini Holbrook OSA - 04/30/2023 2:38 PM EST Requesting refill on Mirtazapine since pt accidentally threw it away documented in this encounter Plan of Treatment Upcoming Encounters Date Type Department Care Team (Late st Contact Info) Description 05/02/2023 3:00 PM EST Office Visit Orthopaedics [facility] [address] [place] [address] Chava Huff PA-C [address] [place] [address] 05/10/2023 2:00 PM EST [facility] [place] [address] [facility] [phone] [facility] [address] [facility] [address] 06/28/2023 8:00 AM EDT Office Visit [place] [address] [facility] [phone] [facility] [address] [phone] 08/08/2023 2:20 PM EDT Office Visit Otolaryngology/Head & Neck/Facial Plastic Surgery [address] [place] [address] Joesph Yun MD [address] [place] [address] 09/02/2023 9:00 AM EDT Office Visit [facility], [facility] [address] Halley Preston CR[facility] [address] 09/05/2023 10:30 AM EDT Rehab Services Voice Lab, [address] [address] Lance Samuels, [facility] 132 [place] [address] 09/05/2023 11:00 AM EDT Appointment Radiology, [address] [phone] 02/10/2024 10:00 AM EST Cardiac Studies Cardiology, [facility] [place] [address] [address] [facility] [address] 02/13/2024 8:15 AM EST Cardiac Studies Cardiac Studies, [facility] 132 [facility] [place] [address] Health Maintenance Due Date Last Done Comments Zoster Vaccines (2 of 3) 07/17/2007 05/22/2007 COVID-19 Vaccine (2022- season) 2022 12/26/2021, 02/14/2021, 06/09/2020, Additional history exists DXA Scan 02/14/2023 02/14/2021, 09/2020, 07/02/2017, Additional history exists Albumin/Creatinine Ratio 06/09/2023 06/08/2022, 05/11 GFR 10/22/2023 04/23/2023, 09/2023, 04/16/2023, Additional history exists Depression Screening 04/02/2024 04/02/2023 CKD PHOS USE SMARTSET 48296 04/17/202409/2023, 04/16/2023, 04/15/2023, Additional history exists CKD HGB USE SMARTSET 50731 04/23/202404/23, 04/23/2023, 04/17/2023, Additional history exists TSH 04/23/2024 04/23/2023, 07/2023, 12/25/2022, Additional history exists DTaP,Tdap,and Td Vaccines (2 - Td or Tdap) 08/14/2024 08/14/2014, 01/25/2000 Pneumococcal Vaccine: 65+ Years Completed 01/06/2015, 08/19/2007 VITAMIN D LEVEL ONCE IN A LIFETIME-USE SMARTSET# [id number] Completed 12/11/2018, 07/07/2018, 10/06/2010 Influenza Vaccine (FLU [...] this encounter Medical Devices Implanted Type Area Vb Net Programmer Device Identifier Shelf Expiration Date Model / Serial / Lot Aiken Pacemaker-12/05 Implanted:Qty: 1 on 12/05/2022 ICD Chest [employer] : CARDIAC SURGERY 09/02/2025 [id number] / / . Lead-12/05/2022 Implanted:Qty: 2 on 12/05/2022 Lead Chest [employer] : CARDIAC SURGERY 10/28/2025 [id number] AND 3830 / / . Balloon Cath Pacing [id number] - [id number] Implanted:Qty: 1 on 09/20/2020 at [facility] : MEDICAL [id number] 07/08/2022 520 [id number] / / [id number] Proglide Perclose 79805-39 X10 - [id number] Implanted:Qty: 1 on 09/20/2020 at [facility] [facility] : VASCULAR DEVICES [id number] 06/08/2022 31605-77 / / [id number] Valve Bg 3 Ultra 23mm - [id number] Implanted:Qty: 1 on 09/20/2020 by Dimitri Maya MD at [facility] [employer] [id number] 09/22/2022 [id number] / / . Lead Tempo Temp Pacing - [id number] Implanted:Qty: 1 on 09/20/2020 at [facility] [employer] [id number] 06/28/2021 [id number] / / [id number] documented as of this encounter Visit Diagnoses Diagnosis Loss of weight documented in this encounter Advance Directives Latest [...] the patient have Health Care Power of Fisher? No Full Code 09/25/2020 6:44 PM 09/26/2020 [...] the patient have Health Care Power of Fisher? No Care Teams Database Design Analyst Relationship Specialty Start Date End Date Ottoniel Kenyon MD [address] [place] [address] PCP - General 12/15/01 documented as of this encounter
--- OUTSIDE RECORDS SUMMARY | 2023-06-01 11:11 | External Medical Summary ---
Author Name Unknown Address Unknown Organization K01:[place] [facility] [place] [address] [place] [address] Laboratory Report Ordering Provider Test Date Status CHANTALE ALCAZAR 04/25/2023 08:27:46 Final Observation Date Value Abnormality Reference (Units) Status Source 04/25/2023 08:27:46 Semi-formed Final Clostridioides difficile toxin and [id number] strain DNA panel - Stool by GAMA with probe detection 04/25/2023 08:27:46 Negative. No C. difficile toxin B gene DNA detected by PCR (Amplified Probe). Negative Final Performing Location [place] [facility] [place] [address] [place] [address]
--- OUTSIDE RECORDS SUMMARY | 2023-06-01 11:11 | External Medical Summary | Summary of Care ---
Author Name Unknown Organization [facility] Address [address] [place] [address] Phone [phone] Care Team Providers Care Machine Load Clerk Name Role Phone Kalen Ribeiro MD Primary Care Provider +1- [phone] Reason for Visit * Reason Comments Outpatient Testing Encounter Details Date Type Department Care Team (Late st Contact Info) Description 05/03/2023 1:50 PM EST Laboratory Laboratory, [place] [address] [place] [address] [place], Laboratory [address] [place] [address] Hypokalemia; Leukocytosis, unspecified type Allergies Active Allergy Reactions [...] aorta 07/14/2021 Atherosclerotic heart diseas e of [place] coronary artery with other forms of angina [...] Care Team (Late st Contact Info) Description 05/03/2023 3:30 PM EST Office Visit Orthopaedics [facility] [address] [place] [address] Chava Huff PA-C [address] [place] [address] 05/10/2023 2:00 PM EST Office Visit [place] [address] [place] [facility] [phone] Kalen Ribeiro MD [address] [place] [address] 06/28/2023 8:00 AM EDT Office Visit [facility] [address] [facility], [place] [phone] Kalen Ribeiro MD [address] [place] [facility] [place] [address] 08/08/2023 2:20 PM EDT Office Visit Otolaryngology/Head & Neck/Facial Plastic Surgery [address] [place] [facility] [place] [address] Joesph Yun MD [address] [place] [address] 09/02/2023 9:00 AM EDT Office Visit Cardiology, [facility] [address] [place] [address] Halley Preston CRNP [address] [place] [address] 09/05/2023 10:30 AM EDT Rehab Services Voice Lab, [facility] [address] Lance Samuels, [facility] [address] [place] [address] 09/05/2023 11:00 AM EDT Appointment Radiology, [facility] [address] [facility] [phone] 02/10/2024 10:00 AM EST Cardiac Studies Cardiology, [facility] 132 [facility] [place] [address] [facility] [address] [place] [address] 02/13/2024 8:15 AM EST Cardiac Studies Cardiac Studies, [facility] 132 [facility] [place] [address] Pending Results Name Type Priority Associated Diagnoses Date /Time BASIC METABOLIC PANEL Lab Routine Hypokalemia 05/03/2023 1:39 PM EST CBC WITH WBC DIFFERENTIAL Lab Routine Leukocytosis, unspecified type 05/03/2023 1:39 PM EST CBC Lab Routine Leukocytosis, unspecified type 05/03/2023 1:39 PM EST DIFFERENTIAL, AUTOMATED Lab Routine Leukocytosis, unspecified type 05/03/2023 1:39 PM EST Health Maintenance Due Date Last Done Comments Zoster Vaccines (2 of 3) 07/17/2007 05/22/2007 COVID-19 Vaccine ( season) 2022 12/26/2021, 02/14/2021, 06/09/2020, Additional history exists DXA Scan 02/14/2023 02/14/2021, 09/2020, 07/02/2017, Additional history exists Albumin/Creatinine Ratio 06/09/2023 06/08/2022, 03/3 03/2021 GFR 10/22/2023 04/23/2023, 09/2023, 04/16/2023, Additional history exists Depression Screening 04/02/2024 04/02/2023 CKD PHOS USE SMARTSET 00401 04/17/202409/2023, 04/16/2023, 04/15/2023, Additional history exists CKD HGB USE SMARTSET 98033 04/23/202404/23, 04/23/2023, 04/17/2023, Additional history exists TSH 04/23/2024 04/23/2023, 07/2023, 12/25/2022, Additional history exists DTaP,Tdap,and Td Vaccines (2 - Td or Tdap) 08/14/2024 08/14/2014, 01/25/2000 Pneumococcal Vaccine: 65+ Years Completed 01/06/2015, 08/19/2007 VITAMIN D LEVEL ONCE IN A LIFETIME-USE SMARTSET# [id number] Completed 12/11/2018, 07/07/2018, 10/06/2010 Influenza Vaccine (FLU [...] this encounter Medical Devices Implanted Type Area Head Kiln Operator Device Identifier Shelf Expiration Date Model / Serial / Lot Molly Pacemaker-12/05 Implanted:Qty: 1 on 12/05/2022 ICD Chest [employer] : CARDIAC SURGERY 09/02/2025 [id number] / / . Lead-12/05/2022 Implanted:Qty: 2 on 12/05/2022 Lead Chest [employer] : CARDIAC SURGERY 10/28/2025 5076 AND 3830 / / . Balloon Cath Pacing [id number] - [id number] Implanted:Qty: 1 on 09/20/2020 at [facility] BARD : MEDICAL [id number] 07/08/2022 520 007P / / [id number] Proglide Perclose 68760-16 X10 - [id number] Implanted:Qty: 1 on 09/20/2020 at [facility] [place] [facility] : VASCULAR DEVICES [id number] 06/08/2022 72239-29 / / [id number] Valve Bg 3 Ultra 23mm - [id number] Implanted:Qty: 1 on 09/20/2020 by Dimitri Maya MD at [facility] [employer] [id number] 09/22/2022 [id number] / / . Lead Tempo Temp Pacing - [id number] Implanted:Qty: 1 on 09/20/2020 at [facility] [place] [employer] [id number] 06/28/2021 T1106 / / [id number] documented as of this encounter Visit Diagnoses Diagnosis Hypokalemia Hypopotassemia Leukocytosis, unspecified type documented in this [...] the patient have Health Care Power of Fabricator Foam Rubber? No Full Code 09/25/2020 6:44 PM 09/26/2020 [...] the patient have Health Care Power of Fabricator Foam Rubber? No Care Teams Machine Load Clerk Relationship Specialty Start Date End Date Kalen Ribeiro MD [address] [place] [address] PCP - General 12/15/01 documented as of this encounter
--- OUTSIDE RECORDS SUMMARY | 2023-06-01 11:11 | External Medical Summary ---
Author Name Unknown Address Unknown Organization K01:LABORATORY [facility] - [address] [place] [address] Laboratory Report Ordering Provider Test Date Status CHANTALE ALCAZAR 04/23/2023 12:30:43 Final Observation Date Value Abnormality Reference (Units ) Status T4, Free 04/23/2023 12:30:43 1.5 0.9-1.7 (n g/dL) Final Performing Location LABORATORY [facility] - [address] [place] [address]
--- OUTSIDE RECORDS SUMMARY | 2023-06-01 11:12 | External Medical Summary ---
Author Name Unknown Address Unknown Organization K01:[place] [facility] [place] [address] [place] [address] Laboratory Report Ordering Provider Test Date Status JASON BRISCOEDavid 04/15/2023 13:16:32 Final Exclude Heart Failure: <300 pg/mL
Diagnose Heart Failure:
Age <50 yr: >450 pg/mL
50-75 yr: >900 pg/mL
>75 yr: >1800 pg/mL
GFR is 30-59 mL/min: >1200 pg/mL or Age- adjusted values
GFR <30 mL/min: do not use, not reliable

Prognostic threshold: 1000 pg/mL Observation Date Value Abnormality Reference (Units ) Status BNP, Pro-hormone 04/15/2023 13:16:32 748 Above high no rmal <300 (pg/mL) Final Performing Location [facility] [place] [address] [place] [address]
--- OUTSIDE RECORDS SUMMARY | 2023-06-01 11:12 | External Medical Summary ---
Author Name Unknown Address Unknown Organization K01:[facility]ATORY [facility] [place] [address] [place] [id number] Laboratory Report Ordering Provider Test Date Status BHUPINDER BRISCOE 04/15/2023 13:46:52 Final Observation Date Value Abnormality Reference (Units) Status Bacteria identified in Specimen by Culture 04/15/2023 13:46:52 No significant growth Final Test: Culture, Urine, Quanti tative
Specimen Source: Urine, Clean Catch
Specimen Type: Urine
Specimen Date: 04/15/2023 1:46 PM
Result Date: 04/16/2023 1:51 PM
Result Status: Final result
Resulting Lab: LAB[facility]ATORY [facility] [place]
[address]
[place] [facility]22

CULTURE

No significant growth

null Performing Location LABORATORY [facility] [place] - [address] [facility] [address]
--- OUTSIDE RECORDS SUMMARY | 2023-06-01 11:12 | External Medical Summary ---
Author Name Unknown Address Unknown Organization K1F:[facility]ATORY [facility] - [address] [place] [address] Laboratory Report Ordering Provider Test Date Status BHUPINDER BRISCOE 04/15/2023 13:16:32 Final Observation Date Value Abnormality Reference (Units ) Status Lactic Acid 04/15/2023 13:16:32 1.9 0.4-2.0 (mmol/L) Final Performing Location LABORATORY [facility] - [address] [place] [address]
--- OUTSIDE RECORDS SUMMARY | 2023-06-01 11:12 | External Medical Summary ---
Author Name Unknown Address Unknown Organization K1F:LABORATORY [facility] - [address] [place] [address] Laboratory Report Ordering Provider Test Date Status BHUPINDER BRISCOE 04/15/2023 13:16:32 Final Less than 0.5 ng/mL: Low ris k for progression to sepsis. Review patients condition for localized infections.

0.5 to 2.0 ng/mL: Intermediate risk for progresion to sepsis. Review underlying conditions. Recommend repeat PCT after 6 hours has elapsed.

Greater than 2.0 ng/mL: high risk for progression to sepsis unless other causes are known. Observation Date Value Abnormality Reference (Units ) Status Procalcitonin [Mass/volume] in Serum or Plasma by Immunoassay 04/15/2023 13:16:32 0.11 Above high normal <0.10 (ng/mL) Final Performing Location LABORATORY [facility] - [address] [place] [address]
--- OUTSIDE RECORDS SUMMARY | 2023-06-01 11:12 | External Medical Summary ---
Author Name Unknown Address Unknown Organization K01:[place] [facility] [place] [address] [place] [id number] Laboratory Report Ordering Provider Test Date Status REJI FOLEY 04/16/2023 06:03:00 Final Observation Date Value Abnormality Reference (Units) Status Bacteria identified in Specimen by Culture 04/16/2023 06:03:00 No significant growth Final Test: Culture, Urine, Quanti tative
Specimen Source: Urine, Clean Catch
Specimen Type: Urine
Specimen Date: 04/16/2023 6:03 AM
Result Date: 04/17/2023 9:09 AM
Result Status: Final result
Resulting Lab: [facility] [place]
[address]
[place] [facility]22

CULTURE

No significant growth

null Performing Location [facility] [facility] [place] [address] [facility] [address]
--- OUTSIDE RECORDS SUMMARY | 2023-06-01 11:12 | External Medical Summary ---
Author Name Unknown Address Unknown Organization K1F:LABORATORY [facility] - [address] [place] [address] Laboratory Report Ordering Provider Test Date Status REJI FOLEY 04/17/2023 05:57:00 Final Observation Date Value Abnormality Reference (Units ) Status Phosphate 04/17/2023 05:57:00 2.3 Below low normal 2.5 -4.8 (mg/dL) Final Performing Location LABORATORY [facility] - [address] [place] [address]
--- OUTSIDE RECORDS SUMMARY | 2023-06-01 11:12 | External Medical Summary ---
Author Name Unknown Address Unknown Organization K1F:LABORATORY [facility] - [address] [place] [address] Laboratory Report Ordering Provider Test Date Status BHUPINDER BRISCOE 04/15/2023 13:16:32 Final Observation Date Value Abnormality Reference (Units ) Status WBC, Total 04/15/2023 13:16:32 20.72 Above high normal 4.00-10.80 (K/uL) Final RBC 04/15/2023 13:16:32 3.97 3.85-5.15 (M/uL) Final Hemoglobin 04/15/2023 13:16:32 12.4 12.0-15.3 (g/dL) Final HCT 04/15/2023 13:16:32 38.5 36.0-45.2 (%) Final MCV 04/15/2023 13:16:32 97.0 81.5-97.5 (fL) Final MCH 04/15/2023 13:16:32 31.2 27.0-34.0 (pg) Final MCHC 04/15/2023 13:16:32 32.2 32.0-36.0 (g/dL) Final RDW 04/15/2023 13:16:32 12.6 11.5-15.5 (%) Final Platelets 04/15/2023 13:16:32 391 140-400 (K/uL) Final MPV 04/15/2023 13:16:32 9.0 6.6-11.1 (fL) Final Nucleated erythrocytes/100 leukocytes [Ratio] in Blood by Automated count 04/15/2023 13:16:32 0 <=0 (/100 WBCs) Final Performing Location LABORATORY [facility] - [address] [place] [address]
--- OUTSIDE RECORDS SUMMARY | 2023-06-01 11:12 | External Medical Summary ---
Author Name Unknown Address Unknown Organization K01:[place] [facility] [place] [address] [place] [address] Laboratory Report Ordering Provider Test Date Status BHUPINDER BRISCOE 04/15/2023 13:16:32 Final Observation Date Value Abnormality Reference (Units ) Status Folic Acid 04/15/2023 13:16:32 16.9 >4.5 (ng/ mL) Final Performing Location LABORATORY [facility] - [address] [place] [address]
--- OUTSIDE RECORDS SUMMARY | 2023-06-01 11:12 | External Medical Summary ---
Author Name Unknown Address Unknown Organization K1F:LABORATORY [facility] - [address] [place] [address] Laboratory Report Ordering Provider Test Date Status REJI FOLEY 04/16/2023 05:18:00 Final Observation Date Value Abnormality Reference (Units ) Status Magnesium 04/16/2023 05:18:00 2.1 1.5-2.6 (m g/dL) Final Performing Location LABORATORY [facility] - [address] [place] [address]
--- OUTSIDE RECORDS SUMMARY | 2023-06-01 11:12 | External Medical Summary ---
Author Name Unknown Address Unknown Organization K1F:LABORATORY [facility] - [address] [place] [address] Laboratory Report Ordering Provider Test Date Status BHUPINDER BRISCOE 04/15/2023 14:43:57 Final Observation Date Value Abnormality Reference (Units ) Status Troponin T 04/15/2023 14:43:57 27 Above high normal < =14 (ng/L) Final Performing Location LABORATORY [facility] - [address] [place] [address]
--- OUTSIDE RECORDS SUMMARY | 2023-06-01 11:12 | External Medical Summary ---
Author Name Unknown Address Unknown Organization K1F:LABORATORY [facility] - [address] [place] [address] [place] [address] Laboratory Report Ordering Provider Test Date Status BHUPINDER BRISCOE 04/15/2023 13:16:32 Final Observation Date Value Abnormality Reference (Units ) Status Bacteria identified in Specimen by Culture 04/15/2023 13:16:32 No growth Final Test: Culture, Blood
Alana ervin Source: Blood, Venous
Specimen Type: Blood
Specimen Date: 04/15/2023 1:16 PM
Result Date: 04/20/2023 2:01 PM
Result Status: Final result
Resulting Lab: LABORATORY [facility]
[address] [place] [address]
[place] [address]

CULTURE

No growth

null Performing Location LABORATORY [facility] - [address] [place], [place] [address]mar[place] [address]
--- OUTSIDE RECORDS SUMMARY | 2023-06-01 11:12 | External Medical Summary ---
Author Name Unknown Address Unknown Organization K1F:LABORATORY [facility] - [address] [place] [address] Laboratory Report Ordering Provider Test Date Status BHUPINDER BRISCOE 04/15/2023 14:45:24 Final SCREENING Observation Date Value Abnormality Reference (Units ) Status SARS Coronavirus 2 04/15/2023 14:45:24 Negative N egative Final 2019 Novel Coronavirus not d etected.

This express test was developed and its performance characteristics determined by [employer]. It has not been cleared or approved [...] was developed and performance characteristics determined by [employer]. The validation of alternate specimen types has not been cleared or approved by the U.S. Food and Drug Administration (FDA). It has been determined that such clearance is not necessary. Performing Location LABORATORY [facility] - [address] [place] [address]
--- OUTSIDE RECORDS SUMMARY | 2023-06-01 11:12 | External Medical Summary | Summary of Care ---
Author Name Unknown Organization [facility] Address [address] [place] [address] Phone [phone] Care Team Providers Care Supervisor Jewelry Department Name Role Phone Kalen Ribeiro MD Primary Care Provider [phone]- [phone] Encounter Details Date Type Department Care Team (Late st Contact Info) Description 04/16/2023 Population Health External Data Unspecified Department Allergies Active Allergy Reactions Criticality Noted Date Comments Heparin 10/07/2020 Concern for HIT documented as of this encounter (statuses as of 04/16/2023) Medications Medication Sig Dispensed Refills Start Date End Date Status VITAMIN B-12 500 MCG OR TABS 2 Tablets. 0 04/26/2003 Suspended DORZOLAMIDE HCL-TIMOLOL MAL 22.3-6.8 MG/ML OP SOLN [...] 30 Tab 3 10/05/2020 Suspended Additional Information Amoxicillin 500 MG Oral Capsule (Amoxil)Indication s:S/P TAVR (transcatheter aortic valve replacement) Take 4 Caps by mouth once as needed (prior to dental work) for up to 1 dose. Take 4 capsules 1 hour prior to any dental work 4 Cap 4 11/10/2020 Suspended Additional Information Patient not taking.Reported on 03/25/2023 Biotin 5 MG Oral Capsule Take 2 Capsules by mouth in the morning. 0 Suspended Rocklatan 0.02-0.005 % Ophthalmic Solution (Netarsudil-Latano prost) Instill into eye . 0 Suspended Furosemide 20 MG Oral Tablet [...] 90 Tablet 3 01/03/2023 Suspended Additional Information Lisinopril 2.5 MG Oral Tablet (Prinivil) Take 1 Tablet by mouth in the morning. 30 Tablet 11 02/27/2023 Suspended Additional Information Mirtazapine 15 MG Oral Tablet (Remeron)Indicatio ns:Loss of weight Take 1 Tablet by mouth at bedtime. 90 Tablet 3 04/10/2023 Suspended Additional Information documented as of this encounter (statuses as of 04/16/2023) Active Problems Problem Noted Date Diagnosed Date [...] aorta 07/14/2021 Atherosclerotic heart diseas e of [place] coronary artery with other forms of angina pectoris 07/14/2021 Age-related osteoporosis wit hout current pathological fracture 07/14/2021 History of pulmonary embolism 06/08/2021 History of pericarditis 10/02/2020 Generalized weakness 10/02/2020 [...] as of this encounter (statuses as of 04/16/2023) Resolved Problems Problem Noted Date Diagnosed Date Resolved Date Primary open angle glaucoma (POAG) 03/29/2022 12/25/2022 Protein-calorie malnutrition 10/24/2020 06/08/2021 Pleural effusion 10/13/2020 12/08/2020 Overview: Left Acute [...] as of this encounter (statuses as of 04/16/2023) Immunizations Name Administration Dates Next Due COVID-19 [...] Care Team (Late st Contact Info) Description 04/16/2023 11:30 AM EST Appointment Radiology, [address] [place] [id number] 04/18/2023 11:00 AM EST Office Visit Orthopa[facility] [address] [place] [address] Chava Huff PA-C [address] [place] [address] 06/28/2023 8:00 AM EDT [facility] Visit [facility] [address] [place] [phone] Kalen Ribeiro MD [address] [place] [address] 08/08/2023 2:20 PM EDT Office Visit Otolaryngology/Head & Neck/Facial Plastic Surgery [address] [place] [address] Joesph Yun MD [address] [place] [address] 09/02/2023 9:00 AM EDT Office Visit Cardiology, [facility] [address] [place] [address] Halley Preston CRNP [address] [place] [address] 09/05/2023 10:30 AM EDT Rehab Services Voice Lab, [address] [address] Lance Samuels, [facility] RESOURCE TEACHER [address] [place] [address] 09/05/2023 11:00 AM EDT Appointment Radiology, [facility] [address] [place] [address] 02/10/2024 10:00 AM EST Cardiac Studies Cardiology, [facility] [address] [place] [address] [place], [facility] [address] [place] [address] 02/13/2024 8:15 AM EST Cardiac Studies Cardiac Studies, [facility] [address] [place] [address] Health Maintenance Due Date Last Done Comments Zoster Vaccines (2 of 3) 07/17/2007 05/22/2007 COVID-19 Vaccine ( season) 2022 12/26/2021, 02/14/2021, 06/09/2020, Additional history exists DXA Scan 02/14/2023 02/14/2021, 09/2020, 07/02/2017, Additional history exists Albumin/Creatinine Ratio 06/09/2023 06/08/2022, 05/11 GFR 10/15/2023 04/16/2023, 07/2023, 04/10/2023, Additional history exists Depression Screening 04/02/2024 04/02/2023 TSH 04/15/2024 04/15/2023, 12/09, 06/08/2022, Additional history exists CKD HGB USE SMARTSET 32511 04/16/202404/16, 04/15/2023, 04/15/2023, Additional history exists CKD PHOS USE SMARTSET 77303 04/16/202408/2023, 04/15/2023, 06/08/2022, Additional history exists DTaP,Tdap,and Td Vaccines (2 - Td or Tdap) 08/14/2024 08/14/2014, 01/25/2000 Pneumococcal Vaccine: 65+ Years Completed 01/06/2015, 08/19/2007 VITAMIN D LEVEL ONCE IN A LIFETIME-USE SMARTSET# 16541 Completed 12/11/2018, 07/07/2018, 10/06/2010 Influenza Vaccine (FLU [...] this encounter Medical Devices Implanted Type Area Moisture Tester Device Identifier Shelf Expiration Date Model / Serial / Lot Lead Tempo Temp Pacing - [id number] Implanted:Qty: 1 on 09/20/2020 by Dimitri Maya MD at [facility] [employer] [id number] 06/28/2021 [id number] / / [id number] documented as of this encounter Advance Directives Latest Code Status on File Code Status Date Activated Date Inactivated Comments No Code 04/15/2023 4:21 PM This order reflects the patients wishes [...] the patient have Health Care Power of R Programmer? No Full Code 09/25/2020 6:44 PM 09/26/2020 [...] the patient have Health Care Power of R Programmer? No Care Teams Supervisor Jewelry Department Relationship Specialty Start Date End Date Kalen Ribeiro MD [address] [place] [address] PCP - General 12/15/01 documented as of this encounter
--- OUTSIDE RECORDS SUMMARY | 2023-06-01 11:12 | External Medical Summary ---
Author Name Unknown Address Unknown Organization K1F:LABORATORY [facility] - [address] [place] [address] Laboratory Report Ordering Provider Test Date Status BHUPINDER BRISCOE 04/15/2023 13:16:32 Final Observation Date Value Abnormality Reference (Units ) Status Troponin T 04/15/2023 13:16:32 29 Above high normal < =14 (ng/L) Final Performing Location LABORATORY [facility] - [address] [place] [address]
--- OUTSIDE RECORDS SUMMARY | 2023-06-01 11:12 | External Medical Summary ---
Author Name Unknown Address Unknown Organization K1F:LABORATORY [facility] - [address] [place] [address] Laboratory Report Ordering Provider Test Date Status RACHNABHUPINDER 04/15/2023 13:16:32 Final Observation Date Value Abnormality Reference (Units ) Status TSH 04/15/2023 13:16:32 3.93 0.27-4.20 (uIU/mL) Final Performing Location LABORATORY [facility] - [address] [place] [address]
--- OUTSIDE RECORDS SUMMARY | 2023-06-01 11:12 | External Medical Summary ---
Author Name Unknown Address Unknown Organization K1F:[facility] - [address] [facility] [place] [address] Laboratory Report Ordering Provider Test Date Status REJI FOLEY 04/16/2023 05:18:00 Final Observation Date Value Abnormality Reference (Units ) Status BUN 04/16/2023 05:18:00 13 6-20 (mg/dL) Final Creatinine 04/16/2023 05:18:00 0.7 0.5-1.0 (mg/dL) Final Glomerular filtration rate/1.73 sq M.predicted [Volume Rate/Area] in Serum, Plasma or Blood by Creatinine-based formula (CKD-EPI) 04/16/2023 05:18:00 87 >=60 (mL/min) Final eGFR is calculated based on the CKD-EPI 2020 equation SODIUM 04/16/2023 05:18:00 142 135-146 (m mol/L) Final Potassium 04/16/2023 05:18:00 3.0 Below low normal 3.5 -5.1 (mmol/L) Final Cl 04/16/2023 05:18:00 106 98-107 (mm ol/L) Final CO2 04/16/2023 05:18:00 23 22-32 (mmo l/L) Final Anion gap 04/16/2023 05:18:00 13 7-15 (mmol /L) Final Glucose 04/16/2023 05:18:00 108 70-120 (mg /dL) Final Albumin 04/16/2023 05:18:00 2.5 Below low normal 3.8 -5.0 (g/dL) Final AST (Aspartate aminotransferase) 04/16/2023 05:18:00 31 10-35 (U/L) Fin al Alk Phos 04/16/2023 05:18:00 51 35-130 (U/ L) Final Bilirubin, Total 04/16/2023 05:18:00 0.5 <=1 .2 (mg/dL) Final Calcium 04/16/2023 05:18:00 7.9 Below low normal 8.4 -10.2 (mg/dL) Final Protein 04/16/2023 05:18:00 5.2 Below low normal 6.0 -8.3 (g/dL) Final ALT (Alanine aminotransferase) 04/16/2023 05:18:00 26 10-35 (U/L) Asher schroeder Performing Location LABORATORY [facility] - [address] [place] [address] [place] [address]
--- OUTSIDE RECORDS SUMMARY | 2023-06-01 11:12 | External Medical Summary ---
Author Name Unknown Address Unknown Organization K1F:LABORATORY [facility] - [address] [facility] [place] [address] Laboratory Report Ordering Provider Test Date Status REJI FOLEY 04/17/2023 05:57:00 Final Observation Date Value Abnormality Reference (Units ) Status BUN 04/17/2023 05:57:00 11 6-20 (mg/dL) Final Creatinine 04/17/2023 05:57:00 0.7 0.5-1.0 (mg/dL) Final Glomerular filtration rate/1.73 sq M.predicted [Volume Rate/Area] in Serum, Plasma or Blood by Creatinine-based formula (CKD-EPI) 04/17/2023 05:57:00 89 >=60 (mL/min) Final eGFR is calculated based on the CKD-EPI 2020 equation SODIUM 04/17/2023 05:57:00 141 135-146 (m mol/L) Final Potassium 04/17/2023 05:57:00 3.6 3.5-5.1 (m mol/L) Final Cl 04/17/2023 05:57:00 107 98-107 (mm ol/L) Final CO2 04/17/2023 05:57:00 22 22-32 (mmo l/L) Final Anion gap 04/17/2023 05:57:00 12 7-15 (mmol /L) Final Glucose 04/17/2023 05:57:00 104 70-120 (mg /dL) Final Albumin 04/17/2023 05:57:00 2.9 Below low normal 3.8 -5.0 (g/dL) Final AST (Aspartate aminotransferase) 04/17/2023 05:57:00 33 10-35 (U/L) Fin al Result may be falsely elevat ed due to hemolysis. Alk Phos 04/17/2023 05:57:00 55 35-130 (U/ L) Final Bilirubin, Total 04/17/2023 05:57:00 0.4 <=1 .2 (mg/dL) Final Calcium 04/17/2023 05:57:00 8.5 8.4-10.2 ( mg/dL) Final Protein 04/17/2023 05:57:00 5.9 Below low normal 6.0 -8.3 (g/dL) Final ALT (Alanine aminotransferase) 04/17/2023 05:57:00 23 10-35 (U/L) Asher schroeder Performing Location LABORATORY [facility] - [address] [place], [place] [address]cl[place]. [place] [address]
--- OUTSIDE RECORDS SUMMARY | 2023-06-01 11:12 | External Medical Summary ---
Author Name Unknown Address Unknown Organization K1F:LABORATORY [facility] - [address] [place] [address] Laboratory Report Ordering Provider Test Date Status MORENA SOSA 04/17/2023 05:57:00 Final Observation Date Value Abnormality Reference (Units ) Status Vancomycin, level 04/17/2023 05:57:00 10.4 10 .0-40.0 (ug/mL) Final Performing Location LABORATORY [facility] - [address] [place] [address]
--- OUTSIDE RECORDS SUMMARY | 2023-06-01 11:12 | External Medical Summary ---
Author Name Unknown Address Unknown Organization K1F:LABORATORY [facility] - [address] [place] [address] Laboratory Report Ordering Provider Test Date Status REJI FOLEY 04/17/2023 05:57:00 Final Observation Date Value Abnormality Reference (Units ) Status Magnesium 04/17/2023 05:57:00 2.0 1.5-2.6 (m g/dL) Final Performing Location LABORATORY [facility] - [address] [place] [address]
--- OUTSIDE RECORDS SUMMARY | 2023-06-01 11:12 | External Medical Summary ---
Author Name Unknown Address Unknown Organization K1F:LABORATORY [facility] - [address] [place] [address] Laboratory Report Ordering Provider Test Date Status REJI FOLEY 04/16/2023 05:18:00 Final Observation Date Value Abnormality Reference (Units ) Status WBC, Total 04/16/2023 05:18:00 16.77 Above high normal 4.00-10.80 (K/uL) Final RBC 04/16/2023 05:18:00 3.46 3.85-5.15 (M/uL) Final Hemoglobin 04/16/2023 05:18:00 10.4 Below low normal 12.0-15.3 (g/dL) Final HCT 04/16/2023 05:18:00 33.0 Below low normal 36.0-45.2 (%) Final MCV 04/16/2023 05:18:00 95.4 81.5-97.5 (fL) Final MCH 04/16/2023 05:18:00 30.1 27.0-34.0 (pg) Final MCHC 04/16/2023 05:18:00 31.5 32.0-36.0 (g/dL) Final RDW 04/16/2023 05:18:00 12.7 11.5-15.5 (%) Final Platelets 04/16/2023 05:18:00 305 140-400 (K/uL) Final MPV 04/16/2023 05:18:00 9.3 6.6-11.1 (fL) Final Nucleated erythrocytes/100 leukocytes [Ratio] in Blood by Automated count 04/16/2023 05:18:00 0 <=0 (/100 WBCs) Final Performing Location LABORATORY [facility] - [address] [place] [address]
--- OUTSIDE RECORDS SUMMARY | 2023-06-01 11:12 | External Medical Summary ---
Author Name Unknown Address Unknown Organization K1F:LABORATORY [facility] - [address] [place] [address] Laboratory Report Ordering Provider Test Date Status BHUPINDER BRISCOE 04/15/2023 13:16:32 Final Observation Date Value Abnormality Reference (Units ) Status Phosphate 04/15/2023 13:16:32 3.4 2.5-4.8 (m g/dL) Final Performing Location LABORATORY [facility] - [address] [place] [address]
--- OUTSIDE RECORDS SUMMARY | 2023-06-01 11:12 | External Medical Summary | Summary of Care ---
Author Name Unknown Organization [facility] Address [address] [place] [address] Phone [phone] Care Team Providers Care Automatic Glove Former Name Role Phone Kalen Ribeiro MD Primary Care Provider +1- [phone] Encounter Details Date Type Department Care Team (Late st Contact Info) Description 04/16/2023 Documentation Radiology, [facility] [address] [place], [place] [phone] Telly Molina, RT Allergies Active Allergy Reactions Criticality Noted Date [...] aorta 07/14/2021 Atherosclerotic heart diseas e of [place] coronary artery with other forms of angina [...] 30 Mcg, IM, 12 yrs and above ([employer]) 12/26/2021 Pneumococcal Conjugate Vacc, 13 Valent (Prevnar) [...] as of this encounter Progress Notes * Telly Molina, RT - 04/16/2023 11:52 AM EST PT HAD A CXR CLEARED BY RADIOLOGIST. PTS PACING DEVICE WAS PLACED INTO MRI MODE BY CARDIAC NURSE AND [employer] REP REMOTELY. PT WAS SCANNED. DEVICE WAS PLACED BACK INTO NORMAL PACING MODE BY CARDIAC NURSE AND [employer] REP. NO ADVERSE EVENTS OCCURRED. documented in this encounter Plan of Treatment Upcoming Encounters Date Type Department Care Team (Late st Contact Info) Description 04/18/2023 11:00 AM EST Office Visit Orthopaedics [facility] [address] [place] [address] Chava Huff PA-C [address] [place] [address] 06/28/2023 8:00 AM EDT Office Visit [facility] [address] [place] [phone] Kalen Ribeiro MD [address] [place] [address] 08/08/2023 2:20 PM EDT Office Visit Otolaryngology/Head & Neck/Facial Plastic Surgery [address] [place] [address] Joesph Yun MD [address] [place] [address] 09/02/2023 9:00 AM EDT Office Visit Cardiology, [facility] [address] [place] [address] Halley Preston CRNP [address] [place] [address] 09/05/2023 10:30 AM EDT Rehab Services Voice Lab, [address] [address] Lance Samuels, [facility] [address] [place] [address] 09/05/2023 11:00 AM EDT Appointment Radiology, [facility] [address] [facility] [place] [phone] 02/10/2024 10:00 AM EST Cardiac Studies Cardiology, [facility] [address] [facility] [place] [address] [place], Pacer [facility] [address] [facility] [place] [address] 02/13/2024 8:15 AM EST Cardiac Studies Cardiac Studies, [facility] [address] [facility] [place] [address] Health Maintenance Due Date Last Done Comments Zoster Vaccines (2 of 3) 07/17/2007 05/22/2007 COVID-19 Vaccine ( season) 2022 12/26/2021, 02/14/2021, 06/09/2020, Additional history exists DXA Scan 02/14/2023 02/14/2021, 09/2020, 07/02/2017, Additional history exists Albumin/Creatinine Ratio 06/09/2023 06/08/2022, 05/11 GFR 10/15/2023 04/16/2023, 07/2023, 04/10/2023, Additional history exists Depression Screening 04/02/2024 04/02/2023 TSH 04/15/2024 04/15/2023, 12/09, 06/08/2022, Additional history exists CKD HGB USE SMARTSET 31481 04/16/202404/16, 04/15/2023, 04/15/2023, Additional history exists CKD PHOS USE SMARTSET 50955 04/16/202408/2023, 04/15/2023, 06/08/2022, Additional history exists DTaP,Tdap,and Td Vaccines (2 - Td or Tdap) 08/14/2024 08/14/2014, 01/25/2000 Pneumococcal Vaccine: 65+ Years Completed 01/06/2015, 08/19/2007 VITAMIN D LEVEL ONCE IN A LIFETIME-USE SMARTSET# [id number] Completed 12/11/2018, 07/07/2018, 10/06/2010 Influenza Vaccine (FLU [...] this encounter Medical Devices Implanted Type Area Operator Helper Device Identifier Shelf Expiration Date Model / Serial / Lot Molly Pacemaker-12/05 Implanted:Qty: 1 on 12/05/2022 ICD Chest [employer] : CARDIAC SURGERY 09/02/2025 [id number] / / . Lead-12/05/2022 Implanted:Qty: 2 on 12/05/2022 Lead Chest [employer] : CARDIAC SURGERY 10/28/2025 [id number] [id number] / / . Lead Tempo Temp Pacing - [id number] Implanted:Qty: 1 on 09/20/2020 by Dimitri Maya MD at [facility] [employer] [id number] 06/28/2021 [id number] / / [id number] documented as of this encounter Advance Directives [...] the patient have Health Care Power of Aircraft Structural Repair Mechanic? No Full Code 09/25/2020 6:44 PM [...] the patient have Health Care Power of Aircraft Structural Repair Mechanic? No Care Teams Automatic Glove Former Relationship Specialty Start Date End Date Kalen Ribeiro MD [address] [place] [address] PCP - General 12/15/01 documented as of this encounter
--- OUTSIDE RECORDS SUMMARY | 2023-06-01 11:12 | External Medical Summary ---
Author Name Unknown Address Unknown Organization K1F:LABORATORY [facility] [address] [facility] [place] [address] Laboratory Report Ordering Provider Test Date Status BHUPINDER BRISCOE 04/15/2023 13:16:32 Final Observation Date Value Abnormality Reference (Units ) Status SYNC LEUKOCYTES IN BLOOD BY AUTOMATED COUNT 04/15/2023 13:16:32 20.72 Above high normal 4.00-10.80 (K/uL) Final Segs 04/15/2023 13:16:32 88.8 Above high normal 40.0-75.0 (%) Final Lymphs % 04/15/2023 13:16:32 4.2 Below low normal 18.0-42.0 (%) Final Monos 04/15/2023 13:16:32 5.0 1.0-11.0 (%) Final Eosinophils 04/15/2023 13:16:32 0.5 0.0-6.0 (%) Final Basos 04/15/2023 13:16:32 0.4 0.0-2.0 (%) Final Immature Granulocyte, Percent 04/15/2023 13:16:32 1.1 0.0-2.0 (%) Final Absolute Segs 04/15/2023 13:16:32 18.41 Above high normal 1.80-7.70 (K/uL) Final Lymphs, absolute 04/15/2023 13:16:32 0.86 Below low normal 1.00-4.80 (K/ul) Final Monos, Abs 04/15/2023 13:16:32 1.04 0.00-1.10 (K/uL) Final Eos, Abs 04/15/2023 13:16:32 0.10 0.00-0.70 (K/uL) Final Basos, Abs 04/15/2023 13:16:32 0.09 0.00-0.20 (K/uL) Final Immature Granulocytes, Number 04/15/2023 13:16:32 0.22 Above high normal 0.00-0.20 (K/uL) Final Performing Location LABORATORY [facility] - [facility] [address] [place]. [place] [address]
--- OUTSIDE RECORDS SUMMARY | 2023-06-01 11:12 | External Medical Summary ---
Author Name Unknown Address Unknown Organization K1F:LABORATORY [facility] - [address] [place] [address] Laboratory Report Ordering Provider Test Date Status REJI FOLEY 04/17/2023 05:57:00 Final Observation Date Value Abnormality Reference (Units ) Status WBC, Total 04/17/2023 05:57:00 14.70 Above high normal 4.00-10.80 (K/uL) Final RBC 04/17/2023 05:57:00 3.97 3.85-5.15 (M/uL) Final Hemoglobin 04/17/2023 05:57:00 12.1 12.0-15.3 (g/dL) Final HCT 04/17/2023 05:57:00 38.2 36.0-45.2 (%) Final MCV 04/17/2023 05:57:00 96.2 81.5-97.5 (fL) Final MCH 04/17/2023 05:57:00 30.5 27.0-34.0 (pg) Final MCHC 04/17/2023 05:57:00 31.7 32.0-36.0 (g/dL) Final RDW 04/17/2023 05:57:00 12.8 11.5-15.5 (%) Final Platelets 04/17/2023 05:57:00 334 140-400 (K/uL) Final MPV 04/17/2023 05:57:00 9.5 6.6-11.1 (fL) Final Nucleated erythrocytes/100 leukocytes [Ratio] in Blood by Automated count 04/17/2023 05:57:00 0 <=0 (/100 WBCs) Final Performing Location LABORATORY [facility] - [address] [place] [address]
--- OUTSIDE RECORDS SUMMARY | 2023-06-01 11:12 | External Medical Summary ---
Author Name Unknown Address Unknown Organization K1F:LABORATORY [facility] - [address] [facility] [place] [address] Laboratory Report Ordering Provider Test Date Status BHUPINDER BRISCOE 04/15/2023 13:46:52 Final Observation Date Value Abnormality Reference (Units ) Status Color of Urine by Auto 04/15/2023 13:46:52 Yellow Light Yellow, Yellow, Dark Yellow Final Clarity, Urine 04/15/2023 13:46:52 Clear Clear Final Glucose [Mass/volume] in Urine by Automated test strip 04/15/2023 13:46:52 Negative Negative (mg/dL) Final Bilirubin.total [Presence] in Urine by Automated test strip 04/15/2023 13:46:52 Negative Negative Final Ketones [Mass/volume] in Urine by Automated test strip 04/15/2023 13:46:52 Negative Negative (mg/dL) Final Specific gravity, Urine 04/15/2023 13:46:52 1.007 1.003-1.030 Final Hemoglobin [Presence] in Urine by Automated test strip 04/15/2023 13:46:52 Trace Abnormal Negative Final pH, Urine 04/15/2023 13:46:52 6.0 5.0-7.5 (Units) Final Protein [Mass/volume] in Urine by Automated test strip 04/15/2023 13:46:52 Negative Negative (mg/dL) Final Urobilinogen [Mass/volume] in Urine by Automated test strip 04/15/2023 13:46:52 0.2 0.2, 1.0 (mg/dL) Final Nitrite [Presence] in Urine by Automated test strip 04/15/2023 13:46:52 Negative Negative Final Leukocyte esterase [Presence] in Urine by Automated test strip 04/15/2023 13:46:52 Negative Negative Final RBC, Urine 04/15/2023 13:46:52 3-5 Abnormal 0-2 (/HPF) Final WBC, Urine 04/15/2023 13:46:52 0-2 0-2 (/HPF) Final Bacteria [#/area] in Urine sediment by Microscopy high power field 04/15/2023 13:46:52 0-25 0-25 (/HPF) Final Hyaline casts, Urine 04/15/2023 13:46:52 1-4 Abnormal None (/LPF) Final CULTURE, URINE - [facility] 04/15/2023 13:46:52 Final Culture not indicated by uri nalysis results\X09\ Performing Location LABORATORY [address] [place] [facility] [address]
--- OUTSIDE RECORDS SUMMARY | 2023-06-01 11:12 | External Medical Summary ---
Author Name Unknown Address Unknown Organization K1F:LABORATORY [facility] - [address] [place], [place] [address] [address] Laboratory Report Ordering Provider Test Date Status BHUPINDER BRISCOE 04/15/2023 13:22:40 Final No anaerobic bottle received . Observation Date Value Abnormality Reference (Units ) Status Bacteria identified in Specimen by Culture 04/15/2023 13:22:40 No growth Final Test: Culture, Blood (Site 2 )
Specimen Source: Blood, Venous
Specimen Type: Blood
Specimen Date: 04/15/2023 1:22 PM
Result Date: 04/20/2023 2:01 PM
Result Status: Final result
Resulting Lab: LABORATORY [facility]
[address] [place] [address]
[place] [address]

CULTURE

No growth

No anaerobic bottle received.

null Performing Location LABORATORY [facility] - [address] [place] [address] Ave. [place] [address]
--- OUTSIDE RECORDS SUMMARY | 2023-06-01 11:12 | External Medical Summary ---
Author Name Unknown Address Unknown Organization K1F:LABORATORY [facility] - [address] [place] [address] Laboratory Report Ordering Provider Test Date Status REJI FOLEY 04/16/2023 05:18:00 Final Observation Date Value Abnormality Reference (Units ) Status Phosphate 04/16/2023 05:18:00 2.8 2.5-4.8 (m g/dL) Final Performing Location LABORATORY [facility] - [address] [place] [address]
--- OUTSIDE RECORDS SUMMARY | 2023-06-01 11:12 | External Medical Summary ---
Author Name Unknown Address Unknown Organization [facility] [address] [facility] [place] [address] Laboratory Report Ordering Provider Test Date Status BHUPINDER BRISCOE 04/15/2023 13:16:32 Final Observation Date Value Abnormality Reference (Units ) Status BUN 04/15/2023 13:16:32 12 6-20 (mg/dL) Final Creatinine 04/15/2023 13:16:32 0.8 0.5-1.0 (mg/dL) Final Glomerular filtration rate/1.73 sq M.predicted [Volume Rate/Area] in Serum, Plasma or Blood by Creatinine-based formula (CKD-EPI) 04/15/2023 13:16:32 76 >=60 (mL/min) Final eGFR is calculated based on the CKD-EPI 2020 equation SODIUM 04/15/2023 13:16:32 135 135-146 (m mol/L) Final Potassium 04/15/2023 13:16:32 3.6 3.5-5.1 (m mol/L) Final Cl 04/15/2023 13:16:32 97 Below low normal 98- 107 (mmol/L) Final CO2 04/15/2023 13:16:32 21 Below low normal 22- 32 (mmol/L) Final Anion gap 04/15/2023 13:16:32 17 Above high normal 7- 15 (mmol/L) Final Glucose 04/15/2023 13:16:32 123 Above high normal 70 -120 (mg/dL) Final Albumin 04/15/2023 13:16:32 3.0 Below low normal 3.8 -5.0 (g/dL) Final AST (Aspartate aminotransferase) 04/15/2023 13:16:32 47 Above high normal 10-35 (U/L) Final Result may be falsely elevat ed due to hemolysis. Alk Phos 04/15/2023 13:16:32 47 35-130 (U/ L) Final Bilirubin, Total 04/15/2023 13:16:32 0.7 <=1 .2 (mg/dL) Final Calcium 04/15/2023 13:16:32 8.6 8.4-10.2 ( mg/dL) Final Protein 04/15/2023 13:16:32 6.2 6.0-8.3 (g /dL) Final ALT (Alanine aminotransferase) 04/15/2023 13:16:32 34 10-35 (U/L) Final Performing Location [facility] - [address] [place], [place] [address] [address]
--- OUTSIDE RECORDS SUMMARY | 2023-06-01 11:12 | External Medical Summary | Summary of Care ---
Author Name Unknown Organization [facility] Address [address] [place] [address] Phone [phone] Care Team Providers Care Stamps Or Coins Salesperson Name Role Phone Kalen Ribeiro MD Primary Care Provider [phone] Reason for Visit * Reason Comments Weakness, Generalized * Auth/Cert Specialty Diagnoses / Procedures Referred By Nithin t Referred To Contact Referral ID Status Reason Start Date Expiration Date Visits Re quested Visits Authorized [id number] Encounter Details Date Type Department Care Team (Latest Contact Info) Description 04/15/2023 12:42 PM EST - 04/17/2023 2:04 PM EST Hospital Encounter [id number] [facility], [facility] 3rd Floor [address] [place], [place] [id number] Donald Mejia, DO [address] [place] [address] Lloyd Mccrary, [address] [place], [place] [id number] Anna Lam, DO [address] [place] [id number] Martin Huynh, [address] [place], [place] [id number] Discharge Disposition: Home - Self Care Allergies Active Allergy Reactions Criticality Noted Date Comments Heparin 10/07/2020 Concern for HIT documented as of this encounter (statuses as of 04/18/2023) Medications Medication Sig Dispensed Refills Start Date [...] at bedtime. 90 Tablet 3 04/10/2023 Active Cefdinir 300 MG Oral Capsule (Omnicef) Take 1 Capsule by mouth in the morning and 1 Capsule before bedtime. Do all this for 5 days. 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 [...] as of this encounter (statuses as of 04/18/2023) Resolved Problems Problem Noted Date Diagnosed Date [...] as of this encounter (statuses as of 04/18/2023) Immunizations Name Administration Dates Next Due COVID-19 [...] Sign Reading Time Taken Comments Blood Pressure 113/52 04/17/2023 10:22 AM EST Pulse 75 04/17/2023 10:22 AM EST Temperature 37 C (98.6 F) 04/17/2023 10:22 AM EST Respiratory Rate 20 04/17/2023 10:22 AM EST Oxygen Saturation 97% 04/17/2023 10:22 AM EST Inhaled Oxygen Concentration - - Weight 48.7 kg (107 lb 6.4 oz) 04/16/2023 5:56 A M EST Height 146.1 cm (4' 9.5") 04/15/2023 5:03 PM EST Body Mass Index 22.84 04/15/2023 5:03 PM EST documented in this encounter Functional [...] No 04/15/2023 documented as of this encounter Discharge Summaries * Martin Huynh DO - 04/17/2023 10:42 AM EST [facility]-[address] [id number] Admission Date: 04/15/2023 Discharge Date: 04/17/2023 RECOMMENDED TO DO FOR NEXT PROVIDER(S): Recheck CBC REASON(S) FOR MEDICATION CHANGE(S): Lisinopril on hold due to soft BPs DISPOSITION ON DISCHARGE: home Active Hospital Problems Diagnosis *Principal Diagnosis - Sepsis (HCC) Anorexia Leukocytosis Oropharyngeal dysphagia 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 ADMISSION HISTORY & PHYSICAL EXAM (focused): Roman Mccrary DO Marie Nieves is a 82 year old female with a PMHx of hypothyroidism, DLD, oropharyngeal dysphagia, HTN, CKD, PAF presented to [facility] ED for generalized weakness x 1 month, worsening over the last few days. Patient saw her PCP last week, she had labs obtained but was called this morning about an elevatedWBC, she was told to come to the ED for evaluation. Denies fevers, nasal congestion, cough, chest pain, shortness of breath, abdominal pain, vomiting, diarrhea, dysuria. Patient has had dysphagia x 1months, she has seen speech therapy and ENT for this, patient has been cleared to eat what she wants. However, patient has not been eating per daughter. She has lost 10+ lbs in a month. She has been getting weaker. Daughter does not feel comfortable with her living on her own. Patient is supposed to drink 3 protein drinks a day. She does not eat dairy. Patient to have an MRI brain as an outpatient tomorrow. I spoke with the ED provider, ED course included: patient is hypotensive in the ED. Was given 1L NSS bolus with some improvement. Labs reveal a leukocytosis of 20K (20K on 04/10/23), troponin is flat,BNP is 866. CXR is negative for infiltrates. CT head is pending. ED provider treated patient for sepsis due to hypotension. Patient given vancomycin and zosyn in the ED. HOSPITAL COURSE (focused): Pt was admitted to the 3rd floor medical unit. Pt was given IV fluids and IV Zosyn/Vanc. She was placed on mechanical VTE prevention measures. The O2 sat was titrated to > 90%. Serial lab studies were completed. Blood and urine cultures were completed and were negative. There was no evidence of pneumonia on the xray's. Her MARIO was held due to low BP. She had no further fever. Her WBC improved.MRI was negative for stroke. She was ambulated. At the time of discharge the vital signs were stable and pt was afebrile. BP 113/52 | Pulse 75 | Temp 37 C (98.6 F) (Temporal Artery) | Resp 20 | Ht 1.461 m (4' 9.5") | Wt 48.7 kg (107 lb 6.4 oz) | SpO2 97% | BMI 22.84 kg/m | BSA 1.41 m . The p atient denied CP, SOB, BAUER, dizziness, vomiting or diarrhea. The physical exam on the day of discharge was stable. She was seen with the rounding team. At the time of discharge the patient was ambulating and her functional status was at baseline. She was tolerating oral nourishment without difficulty. Discharge medications and discharge planning discussed with the patient in detail. Operations & Procedures: none Complications: none applicable Significant Lab and Imaging Results: Results for orders placed or performed during the hospital encounter of 04/15/23 CULTURE, BLOOD Result Value Ref Range Blood Culture Growth No growth to date CULTURE, BLOOD Result Value Ref Range Blood Culture Growth No growth to date CULTURE, URINE, QUANTITATIVE Specimen: Urine, Clean Catch Result Value Ref Range Culture Growth No significant growth MAGNESIUM Result Value Ref Range Magnesium 1.7 1.5 - 2.6 mg/dL LACTATE WITH REFLEX IF ABNORMAL Result Value Ref Range Lactate 1.9 0.4 - 2.0 mmol/L TSH WITH FREE T4 IF INDICATED Result Value Ref Range TSH 3.93 0.27 - 4.20 uIU/mL TROPONIN T, HIGH SENSITIVITY Result Value Ref Range Troponin T, High Sensitivity 29 (H) <=14 ng/L BNP, NT-PRO Result Value Ref Range BNP, NT-Pro 866 (H) <300 pg/mL COMPREHENSIVE METABOLIC PANEL Result Value Ref Range BUN 12 6 - 20 mg/dL Creatinine 0.8 0.5 - 1.0 mg/dL Estimated Glomerular Filtration Rate 76 >=60 mL/min Sodium 135 135 - 146 mmol/L Potassium 3.6 3.5 - 5.1 mmol/L Chloride 97 (L) 98 - 107 mmol/L CO2 21 (L) 22 - 32 mmol/L Anion Gap 17 (H) 7 - 15 mmol/L Glucose 123 (H) 70 - 120 mg/dL Albumin 3.0 (L) 3.8 - 5.0 g/dL AST 47 (H) 10 - 35 U/L Alkaline Phosphatase 47 35 - 130 U/L Bilirubin, Total 0.7 <=1.2 mg/dL Calcium 8.6 8.4 - 10.2 mg/dL Protein 6.2 6.0 - 8.3 g/dL ALT 34 10 - 35 U/L PROCALCITONIN Result Value Ref Range Procalcitonin 0.11 (H) <0.10 ng/mL CBC Result Value Ref Range WBC 20.72 (H) 4.00 - 10.80 K/uL RBC 3.97 3.85 - 5.15 M/uL HGB 12.4 12.0 - 15.3 g/dL HCT 38.5 36.0 - 45.2 % MCV 97.0 81.5 - 97.5 fL MCH 31.2 27.0 - 34.0 pg MCHC 32.2 32.0 - 36.0 g/dL RDW 12.6 11.5 - 15.5 % PLT 391 140 - 400 K/uL MPV 9.0 6.6 - 11.1 fL nRBCs 0 <=0 /100 WBCs DIFFERENTIAL, AUTOMATED Result Value Ref Range WBC 20.72 (H) 4.00 - 10.80 K/uL Neutrophils % 88.8 (H) 40.0 - 75.0 % Lymphocytes % 4.2 (L) 18.0 - 42.0 % Monocytes % 5.0 1.0 - 11.0 % Eosinophils % 0.5 0.0 - 6.0 % Basophils % 0.4 0.0 - 2.0 % Immature Granulocytes % 1.1 0.0 - 2.0 % Absolute Neutrophils 18.41 (H) 1.80 - 7.70 K/uL Absolute Lymphocytes 0.86 (L) 1.00 - 4.80 K/ul Absolute Monocytes 1.04 0.00 - 1.10 K/uL Absolute Eosinophils 0.10 0.00 - 0.70 K/uL Absolute Basophils 0.09 0.00 - 0.20 K/uL Absolute Immature Granulocytes 0.22 (H) 0.00 - 0.20 K/uL URINALYSIS, REFLEX TO CULTURE (CUP ONLY) Result Value Ref Range Urinalysis, Reflex to Culture Specimen Specimen collected and received URINALYSIS, REFLEX TO CULTURE Result Value Ref Range Color, Urine Yellow Light Yellow, Yellow, Dark Yellow Clarity, Urine Clear Clear Glucose, Urine Negative Negative mg/dL Bilirubin, Urine Negative Negative Ketone, Urine Negative Negative mg/dL Specific [place], Urine 1.007 1.003 - 1.030 Blood, Urine Trace (A) Negative pH, Urine 6.0 5.0 - 7.5 Units Protein, Urine Negative Negative mg/dL Urobilinogen, Urine 0.2 0.2, 1.0 mg/dL Nitrite, Urine Negative Negative Esterase, Urine Negative Negative RBC, Urine 3-5 (A) 0 - 2 /HPF WBC, Urine 0-2 0 - 2 /HPF Bacteria, Urine 0-25 0 - 25 /HPF Hyaline, Cast, Urine 1-4 (A) None /LPF Culture, Urine TROPONIN T, HIGH SENSITIVITY Result Value Ref Range Troponin T, High Sensitivity 27 (H) <=14 ng/L PHOSPHORUS Result Value Ref Range Phosphorus 3.4 2.5 - 4.8 mg/dL SARS-COV-2 (COVID-19), NAAT Result Value Ref Range SARS-CoV-2 (COVID-19) Result Negative Negative BNP, NT-PRO Result Value Ref Range BNP, NT-Pro 748 (H) <300 pg/mL VITAMIN B12 Result Value Ref Range Vitamin B12 1,798 (H) 232 - 1,245 pg/mL FOLIC ACID Result Value Ref Range Folic Acid 16.9 >4.5 ng/mL CULTURE, URINE, QUANTITATIVE Specimen: Urine, Clean Catch Result Value Ref Range Culture Growth No significant growth CBC Result Value Ref Range WBC 16.77 (H) 4.00 - 10.80 K/uL RBC 3.46 3.85 - 5.15 M/uL HGB 10.4 (L) 12.0 - 15.3 g/dL HCT 33.0 (L) 36.0 - 45.2 % MCV 95.4 81.5 - 97.5 fL MCH 30.1 27.0 - 34.0 pg MCHC 31.5 32.0 - 36.0 g/dL RDW 12.7 11.5 - 15.5 % PLT 305 140 - 400 K/uL MPV 9.3 6.6 - 11.1 fL nRBCs 0 <=0 /100 WBCs MAGNESIUM Result Value Ref Range Magnesium 2.1 1.5 - 2.6 mg/dL PHOSPHORUS Result Value Ref Range Phosphorus 2.8 2.5 - 4.8 mg/dL COMPREHENSIVE METABOLIC PANEL Result Value Ref Range BUN 13 6 - 20 mg/dL Creatinine 0.7 0.5 - 1.0 mg/dL Estimated Glomerular Filtration Rate 87 >=60 mL/min Sodium 142 135 - 146 mmol/L Potassium 3.0 (L) 3.5 - 5.1 mmol/L Chloride 106 98 - 107 mmol/L CO2 23 22 - 32 mmol/L Anion Gap 13 7 - 15 mmol/L Glucose 108 70 - 120 mg/dL Albumin 2.5 (L) 3.8 - 5.0 g/dL AST 31 10 - 35 U/L Alkaline Phosphatase 51 35 - 130 U/L Bilirubin, Total 0.5 <=1.2 mg/dL Calcium 7.9 (L) 8.4 - 10.2 mg/dL Protein 5.2 (L) 6.0 - 8.3 g/dL ALT 26 10 - 35 U/L MRSA SCREEN, PCR Result Value Ref Range MRSA PCR Result Negative Negative CBC Result Value Ref Range WBC 14.70 (H) 4.00 - 10.80 K/uL RBC 3.97 3.85 - 5.15 M/uL HGB 12.1 12.0 - 15.3 g/dL HCT 38.2 36.0 - 45.2 % MCV 96.2 81.5 - 97.5 fL MCH 30.5 27.0 - 34.0 pg MCHC 31.7 32.0 - 36.0 g/dL RDW 12.8 11.5 - 15.5 % PLT 334 140 - 400 K/uL MPV 9.5 6.6 - 11.1 fL nRBCs 0 <=0 /100 WBCs MAGNESIUM Result Value Ref Range Magnesium 2.0 1.5 - 2.6 mg/dL PHOSPHORUS Result Value Ref Range Phosphorus 2.3 (L) 2.5 - 4.8 mg/dL COMPREHENSIVE METABOLIC PANEL Result Value Ref Range BUN 11 6 - 20 mg/dL Creatinine 0.7 0.5 - 1.0 mg/dL Estimated Glomerular Filtration Rate 89 >=60 mL/min Sodium 141 135 - 146 mmol/L Potassium 3.6 3.5 - 5.1 mmol/L Chloride 107 98 - 107 mmol/L CO2 22 22 - 32 mmol/L Anion Gap 12 7 - 15 mmol/L Glucose 104 70 - 120 mg/dL Albumin 2.9 (L) 3.8 - 5.0 g/dL AST 33 10 - 35 U/L Alkaline Phosphatase 55 35 - 130 U/L Bilirubin, Total 0.4 <=1.2 mg/dL Calcium 8.5 8.4 - 10.2 mg/dL Protein 5.9 (L) 6.0 - 8.3 g/dL ALT 23 10 - 35 U/L VANCOMYCIN RANDOM Result Value Ref Range Vancomycin Random 10.4 10.0 - 40.0 ug/mL *Note: Due to a large number of results and/or encounters for the requested time period, some results have not been displayed. A complete set of results can be found in Results Review. MRI BRAIN WITHOUT CONTRAST Final Result EXAM: MRI BRAIN WITHOUT CONTRAST - 04/16/2023 HISTORY: Dysphagia, failure to thrive TECHNIQUE: MR images of the brain were acquired without intravenous contrast. COMPARISON: MRI brain 06/22/2021, CT head 04/15/2023 FINDINGS: No evidence of acute infarction, intracranial hemorrhage, or mass. Potential subtle increased T2/FLAIR hyperintense signal throughout the mammillary bodies and perioptic slaughter matter. Patchy areas of T2/FLAIR hyperintense signal throughout the periventricular, subcortical, and deep white matter which are nonspecific but likely related to chronic microvascular disease. Diffuse parenchymal volume loss with proportionate ventricular and sulcal prominence. No hydrocephalus. No extra-axial fluid collections. The vascular flow voids at the base of the brain are preserved. Mucosal thickening scattered throughout the paranasal sinuses with opacification of several left anterior ethmoid air cells. The mastoid air cells are clear. Orbits are unremarkable. The calvarium is intact. IMPRESSION IMPRESSION: No evidence of acute infarction, intracranial hemorrhage, or mass. Potential mildly increased FLAIR hyperintense signal throughout the mammillary bodies and periaqueductal slaughter matter which is nonspecific but could reflect sequela of a finding deficiency versus areas of chronic microvascular disease. Clinical correlation is advised. Generalized parenchymal volume loss with additional areas of chronic microvascular disease. XR CHEST 1 VIEW Final Result PROCEDURE INFORMATION: Exam: XR Chest Exam date and time: 04/16/2023 8:35 AM Age: 82 years old Clinical indication: Other: Weakness; Comparison; SOB; Additional info: Assess for pneumothorax TECHNIQUE: Imaging protocol: Radiologic exam of the chest. Views: 1 view. COMPARISON: DX XR CHEST 2 VIEWS 04/15/2023 1:45 PM FINDINGS: Lungs: There is no consolidation Pleural spaces: There is a small pleural effusion versus pleural thickening. No pneumothorax is identified Heart/Mediastinum: The heart is not enlarged. There has been an endovascular aortic valve replacement Bones/joints: There is diffuse osteopenia Other findings: Atheromatous change is seen IMPRESSION IMPRESSION: No pneumothorax THIS DOCUMENT HAS BEEN ELECTRONICALLY SIGNED BY LEONOR MONTENEGRO MD CT HEAD/BRAIN WO CONTRAST Final Result PROCEDURE INFORMATION: Exam: CT Head Without Contrast Exam date and time: 04/15/2023 3:57 PM Age: 82 years old Clinical indication: Other: Trouble swallowing. Stroke workup TECHNIQUE: Imaging protocol: Computed tomography of the head without contrast. Radiation optimization: All CT scans at this facility use at least one of these dose optimization techniques: automated exposure control; mA and/or kV adjustment per patient size (includes targeted exams where dose is matched to clinical indication); or iterative reconstruction. COMPARISON: MRI BRAIN WITHOUT CONTRAST 06/22/2021 5:53 PM FINDINGS: Brain: Moderate cortical atrophy. Normal slaughter-white differentiation. No midline shift or mass effect. No extra-axial fluid collections. Left basal ganglia punctate calcification. Cerebral ventricles: Ventricles and cisterns have normal size and configuration. No hydrocephalus. Pituitary gland and sella: Partially empty sella may be age-appropriate. Paranasal sinuses: Mild left maxillary sinus mucosal thickening. Scattered ethmoid air cell opacification. Remaining imaged paranasal sinuses clear. Mastoid air cells: Clear. Orbital cavities: Orbital cones and apices unremarkable. Conjugate gaze. Bones/joints: Calvarium unremarkable. Soft tissues: Unremarkable. Other findings: No intraparenchymal blood products. Infundibulum midline. IMPRESSION IMPRESSION: 1. Moderate age-appropriate global volume loss. 2. No acute intracranial large vessel infarct. 3. No blood products. 4. Mild sinus disease. 5. Partially empty sella may be age-appropriate, not significantly different than recent MR brain 2021. 6. ASPECTS ([place] Stroke Program Early CT Score) is 10. COMMENTS: THIS REPORT CONTAINS FINDINGS THAT MAY BE CRITICAL TO PATIENT CARE. The exam findings were verbally communicated by me to Dr. Mejia via telephone conference at 4:30 PM EST on 04/15/2023. The findings were acknowledged and understood. THIS DOCUMENT HAS BEEN ELECTRONICALLY SIGNED BY MARIKA CRUZ MD XR CHEST 2 VIEWS Final Result PROCEDURE INFORMATION: Exam: XR Chest Exam date and time: 04/15/2023 1:45 PM Age: 82 years old Clinical indication: Other: Generalized weakness, leukocytosis. Infectious workup. TECHNIQUE: Imaging protocol: Radiologic exam of the chest. Views: 2 views. COMPARISON: CT CHEST W CONTRAST 03/18/2023 1:17 PM FINDINGS: Tubes, catheters and devices: Multiple EKG leads. Lungs: Hyperlucent lungs. Left lung hyperlucent relative to the right, similar to previous without definite pleural reflection to suggest underlying pneumothorax on the PA. No pneumothorax noted on the lateral projection. Slight blunting bilateral costophrenic sulci in association with basilar scar. Pleural spaces: No significant pleural effusion. Mild pleural scar. Heart/Mediastinum: Normal heart size. Prosthetic aortic valve. Bipolar transvenous pacer. Vasculature: Atherosclerotic arch. Bones/joints: Degenerative thoracic spondylosis. IMPRESSION IMPRESSION: 1. No acute infiltrate. 2. Hyperlucent lungs, left more lucent than the right similar to previous. If there is any clinical suspicion for pneumothorax, consider expiratory film or obliques. 3. Mild basilar scar. No significant pleural effusion. 4. Prosthetic aortic valve. Bipolar pacer. THIS DOCUMENT HAS BEEN ELECTRONICALLY SIGNED BY MARIKA CRUZ MD Results Pending at Discharge: Lab Results Pending at Discharge: VANCOMYCIN RANDOM TIMED CBC Routine MAGNESIUM Routine PHOSPHORUS Routine COMPREHENSIVE METABOLIC PANEL Routine MEDICATION UPDATES AT DISCHARGE START taking these medications INSTRUCTIONS Cefdinir 300 MG Capsule Commonly known as: Omnicef Take 1 Capsule by mouth in the morning and 1 Capsule before bedtime. Do all this for 5 days. CONTINUE taking these medications INSTRUCTIONS Acetaminophen ER 650 MG Tbcr Commonly known as: Tylenol ER Notes to patient: Used to ease pain and fever Take 1 Tablet by mouth every 8 hours as needed for Pain, Mild. aspirin 81 MG chewable tablet Notes to patient: Assists in lowering the risk of heart attack and stroke by preventing blood clotsfrom forming Take 1 Tab by mouth daily. atorvaSTATin 20 MG Tablet Commonly known as: Lipitor Notes to patient: Used to lower bad cholesterol, lower triglycerides, raise good cholesterol (HDL),and slow the progression of heart disease TAKE 1 TABLET BY MOUTH ONCE DAILY Biotin 5 MG Capsule Notes to patient: Used to support healthy hair, skin, and nails Take 2 Capsules by mouth in the morning. CYANOCOBALAMIN 500 MCG Tablet Commonly known as: vitamin B-12 Notes to patient: Used to help with some kinds of anemia and to treat or prevent low vitamin B12 2 Tablets. dorzolamide-timolol 2.23-0.68% ophthalmic solution Commonly known as: Cosopt Ocumeter Plus Notes to patient: Used to treat glaucoma and lower high eye pressure Instill 1 Drop into eye in the morning and 1 Drop before bedtime. Famotidine 20 MG Tablet Commonly known as: Pepcid Notes to patient: Used to treat or prevent GI (gastrointestinal) ulcers, gastroesophageal reflux disease (GERD; acid reflux), heartburn and sour stomach, and syndromes caused by lots of stomach acid Take 1 Tablet by mouth in the morning and 1 Tablet before bedtime. Furosemide 20 MG Tablet Commonly known as: Lasix Notes to patient: Used to get rid of extra fluid and treat high blood pressure (Diuretic/water pill) TAKE ONE TABLET BY MOUTH DAILY levothyroxine 100 MCG Tablet Commonly known as: Levoxyl Notes to patient: Used to add thyroid hormone to the body and manage thyroid cancer Take 1 Tablet by mouth in the morning. (at least 30 min prior to breakfast or other meds). Mirtazapine 15 MG Tablet Commonly known as: Remeron Notes to patient: Used to treat depression Take 1 Tablet by mouth at bedtime. pantoprazole 40 MG Tbec Commonly known as: Protonix Notes to patient: Used to treat gastroesophageal reflux disease (GERD; acid reflux) and syndromes caused by lots of stomach acid TAKE 1 TABLET BY MOUTH ONCE DAILY Rocklatan 0.02-0.005 % Soln Generic drug: Netarsudil-Latanoprost Notes to patient: used to treat high pressure inside the eye Instill into eye . STOP taking these medications Amoxicillin 500 MG Capsule Commonly known as: Amoxil Lisinopril 2.5 MG Tablet Commonly known as: Prinivil SCHEDULED FOLLOW-UP: Future Appointments Appt Date/Time Provider Department 04/18/2023 11:00 AM Chava Huff PA-C Orthopaedics [facility] 04/23/2023 11:00 AM Kalen Ribeiro MD [facility] 04/23/2023 11:00 AM Kalen Ribeiro MD [facility] 06/28/2023 8:00 AM Kalen Ribeiro MD Otolaryngology/Head & Neck/Facial Plastic Surgery 08/08/2023 2:20 PM Joesph Yun MD Cardiology, [facility] 09/02/2023 9:00 AM Halley Preston CRNP Voice Lab, [facility] 09/05/2023 10:30 AM Lance Samuels CCC-CHEMISTRY QUALITY CONTROL ANALYST Radiology, [facility] 09/05/2023 11:00 AM FL2 [facility] Cardiology, [facility] 02/10/2024 10:00 AM Rosalinda [facility] Cardiac Studies, [facility] 02/13/2024 8:15 AM LIVESTOCK HAULIER 2 GW Other Information Indwelling Devices: LINES ALL Duration Peripheral Line Left Arm 20 Gauge 30 days Peripheral Line Left;Lower;Posterior Arm 22 Gauge <1 day Vital Signs (last recorded): Most Recent Systolic BP: 113 mmHg (04/17/23 1022) Most Recent Diastolic BP: 52 mmHg (04/17/23 1022) Pulse: 75 (04/17/23 1022) Resp: 20 (04/17/23 1022) Most Recent Temperature: 37 C (04/17/23 1022) Weight: 48.7 kg (107 lb 6.4 oz) (04/16/23 0556) SpO2: 97 % (04/17/23 1022) Allergies: Heparin Activity: as tolerated Diet: Orders Placed This Encounter Procedures Adult Complex Diet : Heart Healthy --- Renal Non-Dialysis (CKD/APARNA) Code Status: No Code Condition on Discharge: stable Isolation status: None Cognition: normal HOSPITAL CONSULTS ORDERED: ADULT PHYSICAL THERAPY CONSULT IP ADULT OCCUPATIONAL THERAPY CONSULT IP CARE MANAGEMENT CONSULT IP NUTRITION SERVICES (DIETITIAN) CONSULT IP REFERRING PHYSICIAN: Ref: [id number]] NO STREET ADDRESS AVAILABLE None (office) None (fax) PRIMARY CARE PROVIDER: PCP: Kalen Ribeiro MD [address] [place] [address] / [facility] [phone] (office) [phone] (fax) Note: To contact a physician responsible for this patients hospital care, please call [facility] [phone]. I spent a total of 39 minutes coordinating, documenting, and providing care for this patient excluding time spent in the performance of separately billed services. documented in this encounter Discharge Instructions * Discharge Instr - AVS* Martin Huynh DO - 04/17/2023 10:34 AM EST Discharge Date: 04/17/23 The information below provides you with the instructions and the list of medications you need to betaking following discharge from the hospital. If you have any questions, please ask before leaving. If you have questions after leaving, you can reach us at the numbers below. YOUR HOSPITAL PROVIDERS: Discharging Provider: Martin Huynh DO Provider Department: Hospital Medicine To reach this Provider Saturday through Saturday (8:00 AM to 4:30 PM) for any questions or test results: Call [phone] For after-hours concerns: Call [phone] and have your provider paged, or the provider political consultant for the Department of Hospital Medicine paged. [...] available, you can go to your local [facility] during their business hours. In an EMERGENCY situation: Call [phone] or go to the nearest emergency room. A BRIEF SUMMARY OF YOUR HOSPITAL STAY: You came to the hospital with: complaint of generalized weakness Your main diagnosis at discharge was: Weakness Fever Elevated white blood count You were admitted to the hospital for the above symptoms . You were placed on IV antibiotics. You had the following tests: Urine and blood cultures were negative. There was no evidence of pneumonia Operations & Procedures performed: none Complications: none applicable Inpatient test results that are pending at discharge: none Advance Directive Documented: Advance Directive Does the Patient have an Advance Directive? Yes YOUR FOLLOW UP APPOINTMENTS: Primary Care Provider Information: PCP: Kalen Ribeiro MD [address] [place] [address] / S[place]SH [id number] (office) [phone] (fax) An appointment was requested with your PCP (Kalen Ribeiro MD) within 5 days . (Please take this form to this visit with your primary care physician.) You need the following studies in the future: Repeat lab work by your PCP INSTRUCTIONS: Diet: Previous diet Activity: As tolerated Additional Instructions: - Use caution when standing or walking since you are at an increased risk for falls - Complete the course of antibiotics as prescribed We are glad you are feeling better. It has been my pleasure to help care for you. Please call me with any additional questions you may have after discharge. [phone] Martin Huynh DO, [place], [facility] documented in this encounter Progress Notes * Imtiaz Lacy [facility] - 04/17/2023 10:40 AM EST PHARMACY DISCHARGE MEDICATION RECONCILIATION REVIEW [address] [address] Name: Marie Nieves Location: [facility] 3B-3012/W Date: 04/17/2023 Time: 10:40 AM This discharge medication reconciliation was reviewed by a pharmacist and no corrections or interventions were required. * Imtiaz Lacy [facility] - 04/17/2023 9:14 AM EST PHARMACY PHARMACOKINETIC CONSULT [address] [address] Name: Marie Nieves Location: [facility] 3B-3012/W Date: 04/17/2023 Time: 9:14 AM Requesting service: Hospitalist Bacteria being treated: Empiric Source of infection: Sepsis Medication(s) being managed: Vancomycin Pharmacokinetic calculations will be performed utilizing [employer] software. Lab information: Lab Results Component Value Date/Time WBC 14.70 (H) 04/17/2023 05:57 AM WBC 16.77 (H) 04/16/2023 05:18 AM WBC 20.72 (H) 04/15/2023 01:16 PM WBC 20.73 (H) 04/10/2023 02:04 PM WBC 11.99 (H) 03/18/2023 11:01 AM WBC 8.49 12/07/2019 07:52 AM WBC 8.09 12/11/2018 08:18 AM WBC 15.79 (H) 09/21/2017 01:47 PM WBC 20.22 (H) 09/18/2017 09:59 AM WBC 14.80 (H) 06/13/2016 04:05 PM Lab Results Component Value Date/Time BUN 11 04/17/2023 05:57 AM BUN 13 04/16/2023 05:18 AM BUN 12 04/15/2023 01:16 PM BUN 13 04/10/2023 02:04 PM BUN 14 03/18/2023 11:01 AM BUN 19 12/07/2019 07:52 AM BUN 20 12/11/2018 08:18 AM BUN 29 (H) 07/07/2018 08:00 AM BUN 22 (H) 01/03/2018 07:47 AM BUN 24 (H) 09/21/2017 01:47 PM Lab Results Component Value Date/Time CREAT 0.7 04/17/2023 05:57 AM CREAT 0.7 04/16/2023 05:18 AM CREAT 0.8 04/15/2023 01:16 PM CREAT 0.7 04/10/2023 02:04 PM CREAT 0.8 03/18/2023 11:01 AM CREAT 0.9 08/19/2020 01:18 PM CREAT 0.9 12/07/2019 07:52 AM CREAT 1.0 12/11/2018 08:18 AM CREAT 1.0 07/07/2018 08:00 AM CREAT 0.9 01/03/2018 07:47 AM CREAT 1.3 (H) 09/21/2017 01:47 PM ANTIMICROBIALS GIVEN (last 28 hours) Date/Time Action Medication Dose Rate 04/17/23 0536 New Bag Piperacillin-Tazobactam (Zosyn) 4.5 g in 100 mL NSS ivpb (FOUR hour infusion) 4.5 g 27.5 mL/hr 04/16/23 2109 New Bag Piperacillin-Tazobactam (Zosyn) 4.5 g in 100 mL NSS ivpb (FOUR hour infusion) 4.5 g 27.5 mL/hr 04/16/23 1620 New Bag vancomycin (Vancocin) 750 mg in NSS 100 mL ivpb 750 mg 110 mL/hr 04/16/23 1335 New Bag Piperacillin-Tazobactam (Zosyn) 4.5 g in 100 mL NSS ivpb (FOUR hour infusion) 4.5 g 27.5 mL/hr Wt Readings from Last 1 Encounters: 04/16/23 48.7 kg (107 lb 6.4 oz) Levels to date: Lab Results Component Value Date/Time VANCORANDOM 10.4 04/17/2023 05:57 AM Impression: Marie Nieves is a/an 82 year old female receiving vancomycin therapy. The pharmacokinetic target for therapy is AUC24,SS (range) 400-600mg/L.hr Assessment and Plan: Analysis of the most recent level(s) using [employer] gives the following patient-specific pharmacokinetic parameters: CL: 2 L/hr V: 33 L T1/2: 13.4 hours Using these values, the current regimen of Vancomycin 750 mg IV every 24 hours is predicted to result in a steady-state trough of 8.9 mg/L and AUC24 of 364 mg/L.hr. At this time we recommend a regimen of 1000 mg IV every 24 hours, which is predicted to result in a steady-state trough of 11.4 mg/L and AUC24 of 474 mg/L.hr. Obtain random level on 04/19 at 06:00. Pharmacy will continue to follow and dose as appropriate by renal function, culture results, infectious disease input, and overall clinical status. Contact the Pharmacy at extension [phone] if there are any questions. * Bhavik Cloud MD - 04/16/2023 8:14 AM EST Images from the original note were not included. [facility] 3B-3012/W INTERVAL HISTORY: Pt is a 82 year old female, with a PMH of hypothyroidism, DLD, oropharyngeal dysphagia, HTN, CKD and PA-Fib who presented to the ED for generalized weakness for 1 month, worsening over the last few days and was admitted for sepsis. Additional History: Patient saw her PCP last week, she had labs obtained but was called this morning about an elevated WBC, she was told to come to the ED for evaluation. She also has had dysphagia for 1 month but has been cleared to eat what she wants by ENT and speech. However, patient has not been eating per daughter. She has lost 10+ lbs in a month. She has been getting weaker. No overnight events. Today she claims to be feeling much better. She said she's able to swallow better and has been eating. Denies chest pain, swallowing difficulties, shortness of breath, nausea/vomiting, diarrhea. Objective Physical Exam Most Recent Vital Signs: BP: 114 mmHg/61 mmHg (04/16/231043) Pulse: 70 (04/16/231043) Temp: 36.89 C (04/16/231043) Temp Summary: Temp Min: 35.7 C (96.3 F) Max: 38.3 C (101 F) SpO2: 100 % (04/16/231043) O2 flow rate: Supplemental O2 Delivery: Room Air, None (04/16/231043) Physical Exam Constitutional: Appearance: Normal appearance. HENT: Head: Normocephalic. Nose: Nose normal. Mouth/Throat: Mouth: Mucous membranes are moist. Eyes: Extraocular Movements: Extraocular movements intact. Conjunctiva/sclera: Conjunctivae normal. Cardiovascular: Rate and Rhythm: Normal rate and regular rhythm. Pulses: Normal pulses. Heart sounds: Normal heart sounds. No murmur heard. Pulmonary: Effort: Pulmonary effort is normal. No respiratory distress. Breath sounds: Normal breath sounds. Abdominal: Palpations: Abdomen is soft. Tenderness: There is no abdominal tenderness. Musculoskeletal: General: Normal range of motion. Cervical back: Normal range of motion and neck supple. Skin: General: Skin is warm and dry. Neurological: General: No focal deficit present. Mental Status: She is alert and oriented to person, place, and time. Psychiatric: Mood and Affect: Mood normal. Behavior: Behavior normal. Peripheral Line Right Hand 22 Gauge (Active) Number of days: 1 STUDIES: Encounter Orders Labs and other studies reviewed with pertinent findings noted below: Lab results within last 7 days (see chart for full results) Units 04/16/23 0518 04/15/23 1316 04/10/23 1404 WBC K/uL 16.77* 20.72* 20.73* RBC M/uL 3.46 3.97 4.24 HGB g/dL 10.4* 12.4 13.3 HCT % 33.0* 38.5 41.1 PLT K/uL 305 391 354 Lab results within last 7 days (see chart for full results) Units 04/16/23 0518 04/15/23 1316 04/10/23 1404 Sodium mmol/L 142 135 139 Potassium mmol/L 3.0* 3.6 3.6 Chloride mmol/L 106 97* 97* CO2 mmol/L 23 21* 26 BUN mg/dL 13 12 13 Creatinine mg/dL 0.7 0.8 0.7 Glucose mg/dL 108 123* 120 Calcium mg/dL 7.9* 8.6 9.1 Magnesium mg/dL 2.1 1.7 -- Lab results within last 7 days (see chart for full results) Units 04/16/2318 04/15/23 1316 04/10/23 1404 Protein g/dL 5.2* 6.2 6.3 Bilirubin, Total mg/dL 0.5 0.7 0.7 Alkaline Phosphatase U/L 51 47 47 AST U/L 31 47* 25 ALT U/L 26 34 13 Recent Cultures (2 Weeks) 04/15/2023 04/15/2023 12/05/2021 09/29/2021 10/13/2020 10/13/2020 10/03/2020 10/03/2020 1:22 PM 1:16 PM 12:04 PM 9:23 AM 1:23 PM 1:22 PM 3:49 AM 3:40 AM AFB STAIN DESCRIPTION -- -- -- -- -- No acid fast bacilli seen -- -- AFB CULTURE GROWTH -- -- -- -- -- No acid fast bacilli isolated -- -- FUNGUS STAIN DESCRIPTION -- -- -- -- No yeast or hyphae seen. -- -- -- FUNGUS CULTURE GROWTH -- -- -- -- No fungus isolated -- -- -- STAIN DESCRIPTION -- -- -- -- -- Few Polymorphonuclear leukocytes -- -- No organisms seen CULTURE GROWTH -- -- -- -- -- No aerobic or anaerobic growth -- -- BLOOD CULTURE GROWTH No growth to date No growth to date -- -- -- -- No growth No growth QUANT URINE CULTURE GROWTH -- -- No significant growth No significant growth -- -- -- -- XR CHEST 1 VIEW Result Date: 04/16/2023 IMPRESSION: No pneumothorax THIS DOCUMENT HAS BEEN ELECTRONICALLY SIGNED BY LEONOR MONTENEGRO MD CT HEAD/BRAIN WO CONTRAST Result Date: 04/15/2023 IMPRESSION: 1. Moderate age-appropriate global volume loss. 2. No acute intracranial large vessel infarct. 3. No blood products. 4. Mild sinus disease. 5. Partially empty sella may be age-appropriate, not significantly different than recent MR brain 2021. 6. ASPECTS ([place] Stroke Program Early CTScore) is 10. COMMENTS: THIS REPORT CONTAINS FINDINGS THAT MAY BE CRITICAL TO PATIENT CARE. The exam findings were verbally communicated by me to Dr. Mejia via telephone conference at 4:30 PM EST on 04/15/2023. The findings were acknowledged and understood. THIS DOCUMENT HAS BEEN ELECTRONICALLY SIGNEDBY MARIKA CRUZ MD XR CHEST 2 VIEWS Result Date: 04/15/2023 IMPRESSION: 1. No acute infiltrate. 2. Hyperlucent lungs, left more lucent than the right similar to previous. If there is any clinical suspicion for pneumothorax, consider expiratory film or obliques. 3. Mild basilar scar. No significant pleural effusion. 4. Prosthetic aortic valve. Bipolar pacer. THIS DOCUMENT HAS BEEN ELECTRONICALLY SIGNED BY MARIKA CRUZ MD Assessment and Plan IMPRESSION : Principal Problem: Sepsis (HCC) Active Problems: Hypothyroidism HTN, goal below 140/90 Generalized weakness Malnutrition of moderate degree (HCC) Paroxysmal atrial fibrillation (HCC) 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) Oropharyngeal dysphagia Anorexia Leukocytosis Resolved Problems: * No resolved hospital problems. * I have examined the patient and consistent with the dietitian's findings found malnutrition presentof Moderate (04/16/23 1052) degree. This is consistent with such due to Fat loss;Muscle loss;Inadequate energy intake;Weight loss (04/16/23 1052). I have also reviewed and agree with the dietitian's plan of care which include Oral nutritional supplement ordered/adjusted (04/16/23 1052). DIFFERENTIAL AND PLAN: Pt is a 82 year old female, with a PMH of hypothyroidism, DLD, oropharyngeal dysphagia, HTN, CKD and PA-Fib who presented to the ED for generalized weakness for 1 month, worsening over the last few days and was admitted for sepsis. Pt appears to be doing well today. She is eating, no complaints. Will get a bedside swallow study just to confirm she has no dysphagia. And get PT/OT to evaluate. Her weight loss is likely due to hermalnutrition because of dysphagia. Her WBC count decreased from yesterday. Will continue on broad spectrum abx until cultures result. Rest per below: Sepsis/Generalized weakness - Zosyn (day 2) - Vanc (day 2) - Blood cultures NGTD - MRSA screen pending - PT/OT/CM consult Oropharyngeal dysphagia/Anorexia - Dietary following - Heart healthy diet - Bedside swallow study PHARMACOLOGIC VTE PROPHYLAXIS: This patient does not have an active medication from one of the medication groupers. CODE STATUS: No Code EXPECTED DISCHARGE DATE: No information available Patient was seen, was examined, and was discussed with Dr. Lam. Bhavik Cloud MD PGY-2 Associated attestation - Anna Lam DO - 04/16/2023 2:01 PM EST I saw and evaluated the patient today. I have reviewed the trainee note and agree. 82-year-old woman presenting with progressive generalized weakness for 1 month. Informed by her PCPthat her white count was elevated and was encouraged to go to the ED for evaluation. Febrile episode in the ED. Admitted for sepsis. General: No acute distress CV: Regular rate and rhythm Chest: Normal respiratory effort. CTAB Abdomen: Soft, nontender, positive bowel sounds Neuro: Alert and oriented. No focal deficits. Skin: Warm dry and intact - continue vanc and Zosyn. Deescalate pending cultures - blood in urine cultures pending. MRSA screen - replete potassium - patient was previously having dysphagia and was evaluated by ENT and speech outpatient. She has been cleared from a dysphagia standpoint. - appreciate nutritional input - PT/OT/care management - CXR on 04/15 noted hyperlucent lungs (L>R). repeat CXR with no evidence of pneumothorax - MRI was ordered outpatient due to concern for possible stroke. MRI of brain obtain during this admission with no acute evidence of infarction or hemorrhage. I spent a total of 26 minutes coordinating, documenting, and providing care for this patient excluding time spent in the performance of separately billed services. * Enedelia Zazueta, [facility] - 04/15/2023 7:55 PM EST PHARMACY PHARMACOKINETIC CONSULT [facility] [address] Name: Marie Nieves Location: [facility] 3B-3012/W Date: 04/15/2023 Time: 7:54 PM Requesting Service: Hospitalist Bacteria being treated: empiric Source of infection: sepsis Medication(s) being managed: Vancomycin Pharmacokinetic calculations will be performed utilizing [employer] software. Lab information: Lab Results Component Value Date/Time WBC 20.72 (H) 04/15/2023 01:16 PM WBC 20.73 (H) 04/10/2023 02:04 PM WBC 11.99 (H) 03/18/2023 11:01 AM WBC 9.82 11/20/2022 12:49 PM WBC 7.82 06/08/2022 07:44 AM WBC 8.49 12/07/2019 07:52 AM WBC 8.09 12/11/2018 08:18 AM WBC 15.79 (H) 09/21/2017 01:47 PM WBC 20.22 (H) 09/18/2017 09:59 AM WBC 14.80 (H) 06/13/2016 04:05 PM Lab Results Component Value Date/Time BUN 12 04/15/2023 01:16 PM BUN 13 04/10/2023 02:04 PM BUN 14 03/18/2023 11:01 AM BUN 27 (H) 03/06/2023 09:15 AM BUN 19 11/20/2022 12:49 PM BUN 19 12/07/2019 07:52 AM BUN 20 12/11/2018 08:18 AM BUN 29 (H) 07/07/2018 08:00 AM BUN 22 (H) 01/03/2018 07:47 AM BUN 24 (H) 09/21/2017 01:47 PM Lab Results Component Value Date/Time CREAT 0.8 04/15/2023 01:16 PM CREAT 0.7 04/10/2023 02:04 PM CREAT 0.8 03/18/2023 11:01 AM CREAT 1.0 03/06/2023 09:15 AM CREAT 0.8 11/20/2022 12:49 PM CREAT 0.9 08/19/2020 01:18 PM CREAT 0.9 12/07/2019 07:52 AM CREAT 1.0 12/11/2018 08:18 AM CREAT 1.0 07/07/2018 08:00 AM CREAT 0.9 01/03/2018 07:47 AM CREAT 1.3 (H) 09/21/2017 01:47 PM ANTIMICROBIALS GIVEN (last 28 hours) Date/Time Action Medication Dose Rate 04/15/23 1715 New Bag Vancomycin (Vancocin) 1250 mg in NSS 250 mL ivpb 1,250 mg 166.67 mL/hr 04/15/23 1613 New Bag Piperacillin-Tazobactam (Zosyn) 4.5 g in 100 mL NSS ivpb (HALF hour infusion) 4.5 g 220 mL/hr Wt Readings from Last 1 Encounters: 04/15/23 47.6 kg (105 lb) Levels to date: No results found for: "VANCO", "VANCOPEAK", "VANCORANDOM", "VANCOTROUGH", "GENTPEAK", "GENTRANDOM","GENTTROUGH", "TOBRAPEAK", "TOBRARANDOM", "TOBRATROUGH", "AMIKAPEAK", "AMIKARANDOM", "AMIKATROUGH" Impression: Marie Nieves is a/an 82 year old female receiving vancomycin therapy. The pharmacokinetic target for therapy is AUC24,SS (range) 400-600mg/L.hr Assessment and Plan: Recent measured serum creatinine values: 04/15/2023 13:16 0.8 mg/dL 04/10/2023 14:04 0.7 mg/dL Assessment: Analysis using [employer] gives the following patient-specific pharmacokinetic parameters: CL: 1.55 L/hr V: 32.1 L T1/2: 15 hours At this time we recommend a regimen of 750 mg IV every 24 hours, which is predicted to result in a steady-state trough of 12.8 mg/L and AUC24 of 471 mg/L.hr. Recommendations: - Vancomycin 750 mg IV every 24 hours - Obtain Vancomycin level 04/17/23 at 0600 - Continue to monitor serum creatinine Pharmacy will continue to follow and dose as appropriate by renal function, culture results, infectious disease input, and overall clinical status. Contact the Pharmacy at extension [phone] if there are any questions. Enedelia Zazueta RPh documented in this encounter H&P Notes * Janet Moraes PA-C - 04/15/2023 4:13 PM EST Images from the original note were not included. [facility] 3B-3012/W [facility] Medicine - H&P History obtained from: Patient, patient's family, and ED provider. PRESENTING PROBLEM: generalized weakness HPI: Marie Nieves is a 82 year old female with a PMHx of hypothyroidism, DLD, oropharyngeal dysphagia, HTN, CKD, PAF presented to [facility] ED for generalized weakness x 1 month, worsening over the last fewdays. Patient saw her PCP last week, she had labs obtained but was called this morning about an elevated WBC, she was told to come to the ED for evaluation. Denies fevers, nasal congestion, cough, chest pain, shortness of breath, abdominal pain, vomiting, diarrhea, dysuria. Patient has had dysphagia x 1 months, she has seen speech therapy and ENT for this, patient has been cleared to eat what shewants. However, patient has not been eating per daughter. She has lost 10+ lbs in a month. She has been getting weaker. Daughter does not feel comfortable with her living on her own. Patient is supposed to drink 3 protein drinks a day. She does not eat dairy. Patient to have an MRI brain as an outpatient tomorrow. I spoke with the ED provider, ED course included: patient is hypotensive in the ED. Was given 1L NSS bolus with some improvement. Labs reveal a leukocytosis of 20K (20K on 04/10/23), troponin is flat,BNP is 866. CXR is negative for infiltrates. CT head is pending. ED provider treated patient for sepsis due to hypotension. Patient given vancomycin and zosyn in the ED. Subjective Past Medical History: Diagnosis Date Closed fracture [...] performed by Andrew Dudley MD at ENDOSCOPY [facility] COLONOSCOPY, DIAGNOSTIC (RECTUM) 06/20/2017 adenomatous polyp, diverticulosis/COLONOSCOPY FLEXIBLE PROXIMAL DIAGNOSTIC performed by Andrew Dudley MD at ENDOSCOPY [facility] DEXA SCAN/BONE MINERAL AXIAL 2006 osteoporosis, repeat 2 years DILATION AND CURETTAGE (D&C) unsure why ECHO (2-D COMPLETE) 10/12 Mild LVH, aortic scler - no stenosis EGD, FLEXIBLE, DIAGNOSTIC N/A 04/05/2023 ESOPHAGOGASTRODUODENOSCOPY (EGD), FLEXIBLE, TRANSORAL, DIAGNOSTIC performed by Manjit Webb MD at OR [facility] FRACTURE NOS 10/12 L Tibial Plateau ORIF LIGATE/CUT OVIDUCT(S) LIGATION/BIOPSY OF TEMPORAL ARTERY Left 06/18/2016 06/18/2016 left temportal artery bx dx benign - [facility] Dr. Garcia LUMBAR / SACRAL EPIDURAL, SINGLE LEVEL 10/04/2015 INJECTION TRANSFORAMINAL EPIDURAL LUMBAR OR SACRAL performed by David Campbellsingita, DO at [facility] LUMBAR / SACRAL EPIDURAL, SINGLE LEVEL 10/25/2015 INJECTION TRANSFORAMINAL EPIDURAL LUMBAR OR SACRAL performed by David Campbellsins, DO at [facility] MISCELLANEOUS ORDER ([facility] ONLY) 12/15 excision lipoma forehead REPLACE AORTIC VALVE, PERCUTANEOUS FEMORAL N/A 09/20/2020 REPLACE AORTIC VALVE, PERCUTANEOUS FEMORAL performed by Dimitri Maya MD at [facility] REPLACE AORTIC VALVE, PERCUTANEOUS FEMORAL N/A 09/20/2020 REPLACE AORTIC VALVE, PERCUTANEOUS FEMORAL performed by Alexys Almazan MD, PhD at [facility] TOTAL ABD HYSTERECTOMY W/WO REMOVAL OF TUBE(S) 2007 SHARIF w/ Bilateral Salpingo-Oophorectomy Family History Problem Relation Age of Onset Renal Hx Mother renal failure (? HTN). Dialysis Thyroid Disorder Mother Heart Disorder Father MT age 78 Heart Disorder Grandfather (Paternal) MT age 65 Heart Disorder Brother MT age 39 Cancer Aunt (Unspecified) colon Renal Hx Uncle (Unspecified) renal failure (?htn) - s/p transplant No Past Hx None no gyne cancers, no breast ca As above otherwise non-contributory Social History Tobacco Use Smoking status: Never Passive exposure: Past Smokeless tobacco: Never Vaping Use Vaping Use: Never used Substance Use Topics Alcohol use: No Drug use: Never MEDICATIONS: Prior to admission medications have been reviewed. ALLERGIES: Heparin ROS: Review of Systems Constitutional: Positive for appetite change and unexpected weight change. Negative for fatigue andfever. Respiratory: Negative for cough and shortness of breath. Cardiovascular: Negative for chest pain. Gastrointestinal: Negative for abdominal pain, diarrhea and vomiting. Genitourinary: Negative for difficulty urinating. Neurological: Positive for weakness (generalized). Negative for dizziness. Objective Physical Exam Most Recent Vital Signs: BP: 92 mmHg/77 mmHg (04/15/231702) Pulse: 72 (04/15/231702) Temp: 36.61 C (04/15/231702) Temp Summary: Temp Min: 36.6 C (97.9 F) Max: 37.1 C (98.8 F) SpO2: 93 % (04/15/231702) O2 flow rate: Supplemental O2 Delivery: Room Air, None (04/15/231702) Physical Exam Vitals and nursing note reviewed. Constitutional: Appearance: Normal appearance. She is ill-appearing. HENT: Head: Normocephalic and atraumatic. Mouth/Throat: Mouth: Mucous membranes are dry. Cardiovascular: Rate and Rhythm: Normal rate and regular rhythm. Pulmonary: Effort: Pulmonary effort is normal. No respiratory distress. Breath sounds: Normal breath sounds. No wheezing or rhonchi. Abdominal: General: Abdomen is flat. Bowel sounds are normal. Palpations: Abdomen is soft. Tenderness: There is no abdominal tenderness. Musculoskeletal: Right lower leg: No edema. Left lower leg: No edema. Skin: General: Skin is warm and dry. Capillary Refill: Capillary refill takes less than 2 seconds. Neurological: General: No focal deficit present. Mental Status: She is alert. Peripheral Line Right Hand 22 Gauge (Active) Number of days: 0 STUDIES: I personally reviewed previous medical records. Labs and other studies personally reviewed by me with pertinent findings noted below: Results for orders placed or performed during the hospital encounter of 04/15/23 MAGNESIUM Result Value Ref Range Magnesium 1.7 1.5 - 2.6 mg/dL LACTATE WITH REFLEX IF ABNORMAL Result Value Ref Range Lactate 1.9 0.4 - 2.0 mmol/L TSH WITH FREE T4 IF INDICATED Result Value Ref Range TSH 3.93 0.27 - 4.20 uIU/mL TROPONIN T, HIGH SENSITIVITY Result Value Ref Range Troponin T, High Sensitivity 29 (H) <=14 ng/L BNP, NT-PRO Result Value Ref Range BNP, NT-Pro 866 (H) <300 pg/mL COMPREHENSIVE METABOLIC PANEL Result Value Ref Range BUN 12 6 - 20 mg/dL Creatinine 0.8 0.5 - 1.0 mg/dL Estimated Glomerular Filtration Rate 76 >=60 mL/min Sodium 135 135 - 146 mmol/L Potassium 3.6 3.5 - 5.1 mmol/L Chloride 97 (L) 98 - 107 mmol/L CO2 21 (L) 22 - 32 mmol/L Anion Gap 17 (H) 7 - 15 mmol/L Glucose 123 (H) 70 - 120 mg/dL Albumin 3.0 (L) 3.8 - 5.0 g/dL AST 47 (H) 10 - 35 U/L Alkaline Phosphatase 47 35 - 130 U/L Bilirubin, Total 0.7 <=1.2 mg/dL Calcium 8.6 8.4 - 10.2 mg/dL Protein 6.2 6.0 - 8.3 g/dL ALT 34 10 - 35 U/L PROCALCITONIN Result Value Ref Range Procalcitonin 0.11 (H) <0.10 ng/mL CBC Result Value Ref Range WBC 20.72 (H) 4.00 - 10.80 K/uL RBC 3.97 3.85 - 5.15 M/uL HGB 12.4 12.0 - 15.3 g/dL HCT 38.5 36.0 - 45.2 % MCV 97.0 81.5 - 97.5 fL MCH 31.2 27.0 - 34.0 pg MCHC 32.2 32.0 - 36.0 g/dL RDW 12.6 11.5 - 15.5 % PLT 391 140 - 400 K/uL MPV 9.0 6.6 - 11.1 fL nRBCs 0 <=0 /100 WBCs DIFFERENTIAL, AUTOMATED Result Value Ref Range WBC 20.72 (H) 4.00 - 10.80 K/uL Neutrophils % 88.8 (H) 40.0 - 75.0 % Lymphocytes % 4.2 (L) 18.0 - 42.0 % Monocytes % 5.0 1.0 - 11.0 % Eosinophils % 0.5 0.0 - 6.0 % Basophils % 0.4 0.0 - 2.0 % Immature Granulocytes % 1.1 0.0 - 2.0 % Absolute Neutrophils 18.41 (H) 1.80 - 7.70 K/uL Absolute Lymphocytes 0.86 (L) 1.00 - 4.80 K/ul Absolute Monocytes 1.04 0.00 - 1.10 K/uL Absolute Eosinophils 0.10 0.00 - 0.70 K/uL Absolute Basophils 0.09 0.00 - 0.20 K/uL Absolute Immature Granulocytes 0.22 (H) 0.00 - 0.20 K/uL URINALYSIS, REFLEX TO CULTURE (CUP ONLY) Result Value Ref Range Urinalysis, Reflex to Culture Specimen Specimen collected and received URINALYSIS, REFLEX TO CULTURE Result Value Ref Range Color, Urine Yellow Light Yellow, Yellow, Dark Yellow Clarity, Urine Clear Clear Glucose, Urine Negative Negative mg/dL Bilirubin, Urine Negative Negative Ketone, Urine Negative Negative mg/dL Specific [place], Urine 1.007 1.003 - 1.030 Blood, Urine Trace (A) Negative pH, Urine 6.0 5.0 - 7.5 Units Protein, Urine Negative Negative mg/dL Urobilinogen, Urine 0.2 0.2, 1.0 mg/dL Nitrite, Urine Negative Negative Esterase, Urine Negative Negative RBC, Urine 3-5 (A) 0 - 2 /HPF WBC, Urine 0-2 0 - 2 /HPF Bacteria, Urine 0-25 0 - 25 /HPF Hyaline, Cast, Urine 1-4 (A) None /LPF Culture, Urine TROPONIN T, HIGH SENSITIVITY Result Value Ref Range Troponin T, High Sensitivity 27 (H) <=14 ng/L PHOSPHORUS Result Value Ref Range Phosphorus 3.4 2.5 - 4.8 mg/dL SARS-COV-2 (COVID-19), NAAT Result Value Ref Range SARS-CoV-2 (COVID-19) Result Negative Negative *Note: Due to a large number of results and/or encounters for the requested time period, some results have not been displayed. A complete set of results can be found in Results Review. CT HEAD/BRAIN WO CONTRAST Final Result PROCEDURE INFORMATION: Exam: CT Head Without Contrast Exam date and time: 04/15/2023 3:57 PM Age: 82 years old Clinical indication: Other: Trouble swallowing. Stroke workup TECHNIQUE: Imaging protocol: Computed tomography of the head without contrast. Radiation optimization: All CT scans at this facility use at least one of these dose optimization techniques: automated exposure control; mA and/or kV adjustment per patient size (includes targeted exams where dose is matched to clinical indication); or iterative reconstruction. COMPARISON: MRI BRAIN WITHOUT CONTRAST 06/22/2021 5:53 PM FINDINGS: Brain: Moderate cortical atrophy. Normal slaughter-white differentiation. No midline shift or mass effect. No extra-axial fluid collections. Left basal ganglia punctate calcification. Cerebral ventricles: Ventricles and cisterns have normal size and configuration. No hydrocephalus. Pituitary gland and sella: Partially empty sella may be age-appropriate. Paranasal sinuses: Mild left maxillary sinus mucosal thickening. Scattered ethmoid air cell opacification. Remaining imaged paranasal sinuses clear. Mastoid air cells: Clear. Orbital cavities: Orbital cones and apices unremarkable. Conjugate gaze. Bones/joints: Calvarium unremarkable. Soft tissues: Unremarkable. Other findings: No intraparenchymal blood products. Infundibulum midline. IMPRESSION IMPRESSION: 1. Moderate age-appropriate global volume loss. 2. No acute intracranial large vessel infarct. 3. No blood products. 4. Mild sinus disease. 5. Partially empty sella may be age-appropriate, not significantly different than recent MR brain 2021. 6. ASPECTS ([place] Stroke Program Early CT Score) is 10. COMMENTS: THIS REPORT CONTAINS FINDINGS THAT MAY BE CRITICAL TO PATIENT CARE. The exam findings were verbally communicated by me to Dr. Mejia via telephone conference at 4:30 PM EST on 04/15/2023. The findings were acknowledged and understood. THIS DOCUMENT HAS BEEN ELECTRONICALLY SIGNED BY MARIKA CRUZ MD XR CHEST 2 VIEWS Final Result PROCEDURE INFORMATION: Exam: XR Chest Exam date and time: 04/15/2023 1:45 PM Age: 82 years old Clinical indication: Other: Generalized weakness, leukocytosis. Infectious workup. TECHNIQUE: Imaging protocol: Radiologic exam of the chest. Views: 2 views. COMPARISON: CT CHEST W CONTRAST 03/18/2023 1:17 PM FINDINGS: Tubes, catheters and devices: Multiple EKG leads. Lungs: Hyperlucent lungs. Left lung hyperlucent relative to the right, similar to previous without definite pleural reflection to suggest underlying pneumothorax on the PA. No pneumothorax noted on the lateral projection. Slight blunting bilateral costophrenic sulci in association with basilar scar. Pleural spaces: No significant pleural effusion. Mild pleural scar. Heart/Mediastinum: Normal heart size. Prosthetic aortic valve. Bipolar transvenous pacer. Vasculature: Atherosclerotic arch. Bones/joints: Degenerative thoracic spondylosis. IMPRESSION IMPRESSION: 1. No acute infiltrate. 2. Hyperlucent lungs, left more lucent than the right similar to previous. If there is any clinical suspicion for pneumothorax, consider expiratory film or obliques. 3. Mild basilar scar. No significant pleural effusion. 4. Prosthetic aortic valve. Bipolar pacer. THIS DOCUMENT HAS BEEN ELECTRONICALLY SIGNED BY MARIKA CRUZ MD Assessment and Plan IMPRESSION: Principal Problem: Sepsis (HCC) Active Problems: Hypothyroidism HTN, goal below 140/90 Generalized weakness Paroxysmal atrial fibrillation (HCC) 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) Oropharyngeal dysphagia Anorexia Leukocytosis Resolved Problems: * No resolved hospital problems. * ASSESSMENT/PLAN: Will admit for generalized weakness and leukocytosis, rule out sepsis. - Continue vancomycin and zosyn. Consider de-escalating tomorrow. - Blood cultures and urine culture pending. - Isolyte 75cc/hr x 10hrs. - Hold home lisinopril and lasix for now given hypotension. - Resume all other home medications for now. - Trend leukocytosis, this may need further workup with hematology as he has a history of leukocytosis. - Nutrition consult ordered given anorexia. - PT/OT/CM consults ordered. - Check CBC, CMP, mag and phos in AM. - Patient is unable to have chemical VTE ppx due to allergies. Unable to have fondaparinux due to weight. Will continue mechanical vte ppx with SCDs and TEDs. PHARMACOLOGIC VTE PROPHYLAXIS: This patient does not have an active medication from one of the medication groupers. CODE STATUS: No Code EXPECTED DISCHARGE DATE: No information available I reviewed today's results, along with the treatment plan with the patient and family. All questions answered and patient agreeable with the above plan. I spent a total of 76 minutes coordinating, documenting, and providing care for this patient excluding time spent in the performance of separately billed services or time spent by another provider/QHP. Janet Moraes PA-C Associated attestation - Lloyd Mccrary DO - 04/16/2023 9:10 AM EST I have reviewed the advanced practitioner's documentation on the date of service referenced in note, and I agree with, and take responsibility for the plan of care. I spent a total of 75 minutes coordinating, documenting, and providing care for this patient excluding time spent in the performance of separately billed services or time spent by another provider/QHP. PHYSICAL EXAMINATION: Gen: AAO x 3 NAD Afeb, Pleasant, Ill HEENT: NCAT, PERRLA, EOMI, Anicteric Sclera, No Pharyngeal Erythema Neck: Supple wo JVD or Adenopathy, No Bruit Lungs:CTAB No RRW Chest: No S4, +S1/S2, No S4, No Murmurs, No Rubs, No Gallops, No Ectopy Abd: Soft Non Tender, Non Distended, BS+, No HSM, No Rebound, No Rigidity, No Guarding Ext: No CCE Musc: FROM x 4 Skin: Warm, Dry, Intact without rashes Neuro: Non focal, life enrichment specialist intact, DTR/Motor/Sensory and Strength all WNL Psych: Normal documented in this encounter Consult Notes * Annette Love, OT - 04/16/2023 1:36 PM ESTAssociated Order(s): ADULT OCCUPATIONAL THERAPY CONSULT IP GENERAL EVALUATION - Occupational Therapy [facility]-[address] [id number] Name: Marie Nieves Location: [facility] [id number]-[id number]/W Date: 04/16/2023 Time: 1336 Marie Nieves is a 82 year old female. Per H&P "Marie Nieves is a 82 year old female with a PMHx of hypothyroidism, DLD, oropharyngeal dysphagia, HTN, CKD, PAF presented to [facility] ED for generalized weakness x 1 month, worsening over the last few days. Patient saw her PCP last week, she had labs obtained but was called this morning about an elevated WBC, she was told to come to the ED for evaluation. Denies fevers, nasal congestion, cough, chest pain, shortness of breath, abdominal pain, vomiting, diarrhea, dysuria. Patient has had dysphagia x 1 months, she has seen speech therapy and ENT for this, patient has been cleared to eat what she wants. However, patient has not been eating per daughter. She has lost 10+ lbs in a month. She has been getting weaker. Daughter does not feel comfortable with her living on her own. Patient is supposed to drink 3 protein drinks a day. She does not eat dairy. Patient to have an MRI brain as an outpatient tomorrow. I spoke with the ED provider, ED course included: patient is hypotensive in the ED. Was given 1L NSS bolus with some improvement. Labs reveal a leukocytosis of 20K (20K on 04/10/23), troponin is flat,BNP is 866. CXR is negative for infiltrates. CT head is pending. ED provider treated patient for sepsis due to hypotension. Patient given vancomycin and zosyn in the ED." Patient Status: Inpatient Insurance: Payor: [email or web address] Plan: [email or web address] CLASSIC 1 PART D MC-LD Product Type: *No Product type* Patient Seen: at bedside, nursing cleared patient for therapy Patient Identified By: Name, ID Band and Date Diagnosis: weakness, decreased endurance (04/16/23 1336) Status of treatment: Evaluation completed (04/16/23 1351) Orders: OT evaluation and treatment (04/16/23 1336) Weight Bearing Status: Weight bearing as tolerated (04/16/23 1336) Precautions: Alarms;Falls;Safety (04/16/23 1336) Total Treatment Time: 15 (04/16/23 1351) Past Medical History: Past Medical History: Diagnosis [...] yr repeat/COLONOSCOPY FLEXIBLE PROXIMAL DIAGNOSTIC performed by Adnrew Dudley MD at ENDOSCOPY [facility] COLONOSCOPY, DIAGNOSTIC (RECTUM) 06/20/2017 adenomatous polyp, diverticulosis/COLONOSCOPY FLEXIBLE PROXIMAL DIAGNOSTIC performed by Andrew Dudley MD at ENDOSCOPY [facility] DEXA SCAN/BONE MINERAL AXIAL 2006 osteoporosis, repeat 2 years DILATION AND CURETTAGE (D&C) unsure why ECHO (2-D COMPLETE) 10/12 Mild LVH, aortic scler - no stenosis EGD, FLEXIBLE, DIAGNOSTIC N/A 04/05/2023 ESOPHAGOGASTRODUODENOSCOPY (EGD), FLEXIBLE, TRANSORAL, DIAGNOSTIC performed by Manjit Webb MD at OR [facility] FRACTURE NOS 10/12 L Tibial Plateau ORIF LIGATE/CUT OVIDUCT(S) LIGATION/BIOPSY OF TEMPORAL ARTERY Left 06/18/2016 06/18/2016 left temportal artery bx dx benign - [facility] Dr. Garcia LUMBAR / SACRAL EPIDURAL, SINGLE LEVEL 10/04/2015 INJECTION TRANSFORAMINAL EPIDURAL LUMBAR OR SACRAL performed by [facility] Costello DO at [facility] LUMBAR / SACRAL EPIDURAL, SINGLE LEVEL 10/25/2015 INJECTION TRANSFORAMINAL EPIDURAL LUMBAR OR SACRAL performed by David Costello DO at OR [facility] MISCELLANEOUS ORDER ([facility] ONLY) 12/15 excision lipoma forehead REPLACE AORTIC VALVE, PERCUTANEOUS FEMORAL N/A 09/20/2020 REPLACE AORTIC VALVE, PERCUTANEOUS FEMORAL performed by Dimitri Maya MD at [facility] REPLACE AORTIC VALVE, PERCUTANEOUS FEMORAL N/A 09/20/2020 REPLACE AORTIC VALVE, PERCUTANEOUS FEMORAL performed by Alexys Almazan MD, PhD at [facility] TOTAL ABD HYSTERECTOMY W/WO REMOVAL OF TUBE(S) 2007 SHARIF w/ Bilateral Salpingo-Oophorectomy Social History/Disposition Lives with: Alone (04/16/231335) Assistance available: Yes (04/16/231335) Dwelling type: Single story home (04/16/231335) Entry steps: None (04/16/231335) Inside steps: None (04/16/231335) Bedroom location: 1st floor (04/16/231335) Bath location: 1st floor full bath (04/16/231335) Prior Level of Function Reported by: Patient (04/16/231335) Ambulation: Ambulatory without device (04/16/231335) Grooming: Independent (04/16/231335) Bathing: Independent (04/16/231335) Dressing: Independent (04/16/231335) Feeding: Independent (04/16/231335) Toileting: Independent (04/16/231335) Meal Prep: Independent (04/16/231335) Homemaking: Independent (04/16/231335) Shopping: Independent (04/16/231335) Medication Management: Independent (04/16/231335) Money Management: Independent (04/16/231335) Driving: Yes (04/16/231335) Durable Medical Equipment at home: Rolling walker;Straight cane;Grab bars (04/16/231335) Subjective: Pt without significant comment and agreeable to participate in therapy. Pain: No complaints of pain Observations Consciousness: Alert (04/16/231335) Orientation: Oriented times 4 (04/16/231335) Cognitive Limitations: (none noted on OT eval) (04/16/231335) Psychosocial: Patient can converse in a social setting;Patient can communicate basic needs (04/16/231335) Visual Deficits: (glasses) (04/16/231335) Sitting posture: Forward head;Rounded shoulders (04/16/231335) Standing posture: Forward head;Rounded shoulders (04/16/231335) Safety awareness: The Patient verbalizes insight of current deficits.;The Patient demonstrates carryover of insight during functional tasks.;Needs cueing supervision. (04/16/231335) Other Findings Light touch sensation: LUE;RUE;Intact (04/16/231335) Coordination: LUE;RUE;Gross motor;Fine motor;Intact (04/16/231335) Current Functional Status: Bilateral Upper Extremity Hand Dominance: Right (04/16/231335) Range of Motion: WFL (04/16/231335) Strength Assessment: Deficits noted (04/16/231335) LUE: Shoulder;Elbow;Grasp;Wrist;3+/5 (04/16/231335) RUE: Shoulder;Elbow;Wrist;Grasp;3+/5 (04/16/231335) Self Care Able to provide self care: Yes (04/16/231335) Feeding: Independent (04/16/231335) Grooming: Supervision (Please comment) (04/16/231335) Toileting: Supervision (Please comment) (04/16/231335) Dressing Upper Body: Supervision (Please comment) (04/16/231335) Lower Body: Supervision (Please comment) (04/16/231335) Bathing Upper Body: Supervision (Please comment) (04/16/231335) Lower Body: Supervision (Please comment) (04/16/231335) Functional Ambulation Assistive Device: No device (04/16/231335) Distance in feet:: 165 (04/16/231335) Level of Assistance: Contact Guard (04/16/231335) OT Transfers Sit-Stand: Supervision (Please comment) (04/16/231335) Stand-Sit: Supervision (Please comment) (04/16/231335) Toilet: Supervision (Please comment) (04/16/231335) Balance Sit (Static): Good (04/16/231335) Sit (Dynamic): Good (04/16/231335) Stand (Static): Fair (04/16/231335) Stand (Dynamic): Fair (04/16/231335) Alarm Status Patient positioned in: Bed (04/16/231335) With: Call marie in reach (04/16/231335) Patient and Family Goals: to get well and to return home Patient Education Education Topic: Role of OT;Plan of care goals (04/16/231335) Review of Precautions: Safety;Fall (04/16/231335) Method of Education: Verbalized to patient (04/16/231335) Education Provided to: Patient (04/16/231335) Response to Education: Receptive and agreeable to education (04/16/231335) Barriers to learning: Medical status (04/16/231335) Treatment Provided: Evaluation Moderate Complexity 15 minutes - 53535: Patient was cooperative and pleasant during treatment session. Moderate complexity evaluation performed and 3-5 activity limitations were identified, including ADL deficit, decreased strength, decreased endurance, and impaired balance. Minimal or moderate modification of the functional task was necessary to complete the evaluation. Deficits Requiring O.T. Treatment: Deficits requiring O.T. treatment needs: ADL/self-care;Balance;Endurance;Fine motor coordination;Functional mobility;Safety;IADL;Upper extremity strength;Upper extremity range of motion;Weakness (04/16/231335) Goals: Bathing: Upper: modified independent (100% with device and additional time). Lower: modifiedindependent (100% with device and additional time) Dressing: Upper: modified independent (100% with device and additional time). Lower: modified independent (100% with device and additional time). Transfers with: Sit to Stand: modified independent (with device or slow) Toilet: modified independent (with device or slow) Bed to Chair/Wheelchair: modified independent (with device or slow). Demonstrates ability to tolerate 3/3 meals OOB for 2 consecutive days in a row. Demonstrates Grooming at modified independent (100% with device and additional time). Demonstrates toileting at modified independent (100% with device and additional time) Goal Time Frame: Within 1-10 treatment sessions Assessment: Pt tolerated OT session well. Pt was A&Ox4 and able to answer all prior functional level questions without assist. Pt able to perform bed mobility, LB dressing, ambulation in room, and toilet transfer with SPV for safety. Pt required CG to ambulate 1 lap in hallway without AD. OT AM-PAC: 19 Pt requires assist with grooming, bathing, dressing , and toileting. As such, Would consider home with post-acute care services which may include outpatient therapy or home health. The level of care will be determined in collaboration with the patient, family/caregiver, and care team members. Skilled OT services warranted here at [facility] to address deficits in ADLs and functional mobility. Treatment Plan: Energy Conservation, Safety, Homemaking Skills, Bed mobility training, Functional Ambulation, Transfer training, Coordination Tasks, ROM exercises, Upper extremity strengthening, Balance activities, ADL training, and Endurance Anticipated Frequency (on eval): 1 to 3 times per week (04/16/231335) AM-PAC Help From Another Person Eating Meals: None (04/16/231335) Help From Another Person Taking Care of Personal Grooming: A little (04/16/231335) Help From Another Person To Put On/Take Off Upper Body Clothing: A little (04/16/231335) Help From Another Person To Put On/Take Off Lower Body Clothing: A little (04/16/231335) Help From Another Person Toileting: A little (04/16/231335) Help From Another Person Bathing: A little (04/16/231335) OT AM-PAC Score: 19 (04/16/231335) OT AM-PAC t-Scale Score: 40.22 (04/16/231335) HLM (Highest Level of Mobility) Goal: Level 5 standing (1 or more minutes) (04/16/23 0800) * Makayla Prieto, PT - 04/16/2023 10:40 AM ESTAssociated Order(s): ADULT PHYSICAL THERAPY CONSULT IP GENERAL EVALUATION - Physical Therapy [address] [address] Name: Marie Nieves Location: [facility] 3B-3012/W Date: 04/16/2023 Time: 1040 Marie Nieves is a/an 82 year old female. Patient Status: Inpatient Insurance: Payor: [facility] [employer] Skin Care Plan: [facility] [employer] Skin Care CLASSIC 1 PART D -LD Product Type: *No Product type* Patient Seen: at bedside, nursing cleared patient for therapy Patient Identified By: Name, ID Band and Date Patient presents with HPI of the following, per MD note, ""Marie Nieves is a 82 year old female witha PMHx of hypothyroidism, DLD, oropharyngeal dysphagia, HTN, CKD, PAF presented to [facility] ED for generalized weakness x 1 month, worsening over the last few days. Patient saw her PCP last week, she had labs obtained but was called this morning about an elevated WBC, she was told to come to the ED for e valuation. Denies fevers, nasal congestion, cough, chest pain, shortness of breath, abdominal pain,vomiting, diarrhea, dysuria. Patient has had dysphagia x 1 months, she has seen speech therapy and ENT for this, patient has been cleared to eat what she wants. However, patient has not been eating per daughter. She has lost 10+ lbs in a month. She has been getting weaker. Daughter does not feel comfortable with her living on her own. Patient is supposed to drink 3 protein drinks a day. She does not eat dairy." Diagnosis: weakness (04/16/231039) Status of treatment: OOB evaluation completed (04/16/231039) Orders: PT evaluation and treatment (04/16/231039) Weight Bearing Status: Weight bearing as tolerated (04/16/231039) Precautions: Safety;Falls (04/16/23 104) Total Treatment Time--free text: 40 min (04/16/23 104) Past Medical History: Past Medical History: Diagnosis [...] performed by Andrew Dudley MD at ENDOSCOPY [facility] COLONOSCOPY, DIAGNOSTIC (RECTUM) 06/20/2017 adenomatous polyp, diverticulosis/COLONOSCOPY FLEXIBLE PROXIMAL DIAGNOSTIC performed by Andrew Dudley MD at [facility]COPY [facility] DEXA SCAN/BONE MINERAL AXIAL 2006 osteoporosis, repeat 2 years DILATION AND CURETTAGE (D&C) 1979's unsure why ECHO (2-D COMPLETE) 10/12 Mild LVH, aortic scler - no stenosis EGD, FLEXIBLE, DIAGNOSTIC N/A 04/05/2023 ESOPHAGOGASTRODUODENOSCOPY (EGD), FLEXIBLE, TRANSORAL, DIAGNOSTIC performed by Manjit Webb MD at OR [facility] FRACTURE NOS 10/12 L Tibial Plateau ORIF LIGATE/CUT OVIDUCT(S) LIGATION/BIOPSY OF TEMPORAL ARTERY Left 06/18/2016 06/18/2016 left temportal artery bx dx benign - [facility] Dr. Garcia LUMBAR / SACRAL EPIDURAL, SINGLE LEVEL 10/04/2015 INJECTION TRANSFORAMINAL EPIDURAL LUMBAR OR SACRAL performed by David Costello DO at OR [facility] LUMBAR / SACRAL EPIDURAL, SINGLE LEVEL 10/25/2015 INJECTION TRANSFORAMINAL EPIDURAL LUMBAR OR SACRAL performed by David Costello, DO at OR [facility] MISCELLANEOUS ORDER ([facility] ONLY) 12/15 excision lipoma forehead REPLACE AORTIC VALVE, PERCUTANEOUS FEMORAL N/A 09/20/2020 REPLACE AORTIC VALVE, PERCUTANEOUS FEMORAL performed by Dimitri Maya MD at [facility] REPLACE AORTIC VALVE, PERCUTANEOUS FEMORAL N/A 09/20/2020 REPLACE AORTIC VALVE, PERCUTANEOUS FEMORAL performed by Alexys Almazan MD, PhD at [facility] TOTAL ABD HYSTERECTOMY W/WO REMOVAL OF TUBE(S) 2007 SHARIF w/ Bilateral Salpingo-Oophorectomy Subjective: "I'll walk" Social History/Disposition Lives with: Alone (04/16/231335) Assistance available: Yes (04/16/231335) Dwelling type: Single story home (04/16/231335) Entry steps: None (04/16/231335) Inside steps: None (04/16/231335) Bedroom location: 1st floor (04/16/231335) Bath location: 1st floor full bath (04/16/231335) Prior Level of Function Reported by: Patient (04/16/23 1040) Ambulation: Ambulatory without device (04/16/23 104) Devices at home: Straight cane;Rolling walker;Wheelchair;Grab bars (04/16/23 104) Observations Consciousness: Alert (04/16/23 1040) Orientation: Oriented times 4 (04/16/23 104) Psychosocial: Patient can communicate basic needs;Patient can converse in a social setting (04/16/23 104) Other Findings: No (04/16/23 1040) Sitting Posture: Rounded shoulders (04/16/23 1040) Standing Posture: Rounded shoulders (04/16/23 104) Pain: No complaints of pain Range of Motion Range of Motion: WNL (04/16/23 1040) Strength Assessment Strength Assessment: WNL (04/16/23 1040) P.T. Bed Mobility Supine-Sit: Independent (04/16/23 1040) Sit-Supine: Independent (04/16/23 1040) Transfers Sit-Stand: Supervision (04/16/23 1040) Stand-Sit: Supervision (04/16/23 1040) W/C-Bed/Mat: Supervision (04/16/231039) Ambulation: Distance ambulated (feet): 330 Assistive Device: Rolling walker Assist: Supervision Balance Sit (Static): Good (04/16/231039) Sit (Dynamic): Good (04/16/231039) Stand (Static): Fair (04/16/231039) Stand (Dynamic): Fair (04/16/231039) Patient and or Family Goal(s): to get well and to return home Patient Education Review of Precautions: Safety;Fall (call marie) (04/16/231039) Safety Awareness: Patient verbalizes insight of current deficits;Patient demonstrates carryover of insight during functional tasks;Patient can communicate basic needs (04/16/231039) Preferred learning method: Combination (04/16/231039) Barriers to learning: Medical Status (04/16/231039) Method of Education: Verbalized to patient (04/16/231039) Topic of Education: Safety with mobility, Goals/plan of care, Use of assistive device, Fall prevention, and .d/c recommendations Method of Education: Verbal discussion and explanation provided to patient regarding topics mentioned above: verbalized understanding and or agreement of this information Treatment Provided: Therapeutic Activities 10 minutes: bed mobility training transfer training toilet transfer training Gait Training 10 minutes: gait training with rolling walker Evaluation Moderate Complexity 20 minutes - 65025: Patient was cooperative, pleasant, motivated, and alert during treatment session. Moderate complexity evaluation performed and 1-2 personal factors or comorbidities were identified that will impact plan of care, including lives alone at home, multiple orthopedic injuries, and weakness. Patient presents with limitations in strength, bed mobility, transfers, gait, balance, endurance, and safety, which will impact plan of care. These limitations will be addressed by the goals set for this patient. Alarm Status Patient positioned in: Bed (04/16/231039) With: Call marie in reach (04/16/231039) Treatment Status: Treatment at bedside (04/16/231039) Goals: Demonstrate Transfers with: Sit to stand: modified independent (with device or slow) Bed to chair: modified independent (with device or slow) Demonstrate ambulation 150 feet modified independent (with device or slow) with or without AD Increase Safety: with all mobility tasks to decrease fall risk Time Frame: 1-8 visits Assessment: Patient presents with minimal functional deficits at this time. Currently requires supervision for functional transfers and ambulation with use of RW. Maintains BLE strength that is WNLs at all major mm groups. Verbalizes appropriate level of insight into current functional deficits anddemonstrates overall good safety awareness. Patient denied having any onset of symptoms with mobility. PT AM PAC is 20, Would consider home with post-acute care services which may include outpatient therapy or home health. The level of care will be determined in collaboration with the patient, family/caregiver, and care team members. Will cont to provide skilled PT services while at [facility]. Deficits requiring P.T. treatment needs: Safety;Balance;Mobility;Weakness;Lower extremity strength (04/16/23 1040) Equipment Needs: Equipment needs: Rolling walker (04/16/23 1040) Treatment Plan: Transfer training, Gait training, Elevation training, ROM exercises: , Strengthening exercises: , Balance activities, and Educate on safety with all mobility tasks to decrease fall risk Anticipated Frequency (on eval): (3-6x/wk) (04/16/23 1040) AM PAC Score with Stairs: 20 * Misty Valladares RDN - 04/16/2023 9:43 AM ESTAssociated Order(s): NUTRITION SERVICES (DIETITIAN) CONSULT IP CLINICAL NUTRITION CONSULT/PROGRESS NOTE [facility]-[address] [address] Name: Marie Nieves Location: [facility] 3B-3012/W Date: 04/16/2023 Time: 9:43 AM How patient was identified (select 2): date and Name Discussed in interdisciplinary rounds: No Marie Nieves is a 82 year old female being seen for consult by provider Primary Diagnosis: Sepsis Other pertinent information: Patient reports she was having difficulties swallowing for the past month, but saw speech therapy services out patient and has been cleared to consume regular textured foods. Patient tells me she thinks it was an infection that was causing her to have trouble swallowing. Due to her trouble swallowing, patient's PO intake was decreased and she reports losing about 10 lbs in a month (UBW around 115 lbs). Patient has lost a significant amount of wt x 1 month, and she presents with mild fat and muscle loss. Patient meets criteria for moderate malnutrition at this time. She tells me she was drinking Ensure clear at home, preferred this to regular Ensure, would like to receive boost breeze during this admission. Will monitor for increased PO intakes as able, pt reports she is already doing better today. NUTRITION ASSESSMENT: Past medical/surgical history and medications reviewed. Food/Nutrition-Related History Diet: Heart Healthy, 2 gm Sodium Renal Non-Dialysis Adult Previously followed diet: Regular Food Allergies/Intolerances: Lactose intolerance Adult Energy Intake: Less than 75% of estimated energy requirement for greater than 1 month (moderate/severe, chronic illness). Oral Nutrition Supplement (ONS): None Pertinent medications/vitamins/minerals/supplements: Medications reviewed. No significant nutritionrelated medications noted. Pertinent Biochemical Data: Latest Reference Range & Units 04/15/23 13:16 04/16/23 05:18 Potassium 3.5 - 5.1 mmol/L 3.6 3.0 (L) (L): Data is abnormally low Patient receiving potassium supplementation - will monitor K level Nutrition-Focused Physical Findings: Appearance: Thin Respiratory support: Supplemental O2 Delivery: Room Air, None Nasal/Oral: Swallow function, compromised or painful Digestive: Appetite fair Last Bowel Movement: 04/13/23 (04/16/23 08) Cognition: Awake, alert and Oriented Skin: Intact Enteral access: None Nutrition Focused Physical Exam: NFPE completed on 04/16/2023 Subcutaneous Fat Loss: Orbital fat pads: Moderate Buccal fat: Mild Tricep: Moderate Rib: Mild Muscle Loss: Temples: Mild Clavicles: Mild Shoulders: Mild Scapula: Mild Interosseous: Mild Quadriceps: Mild Calves: Mild Edema Location: Lower extremities;Both (04/16/23799) Edema Assessment: Trace (04/16/23799) Anthropometrics Measurements Height: 146.1 cm (4' 9.5") (04/15/231702) Admission weight: 48.7 kg Weight: 48.7 kg (107 lb 6.4 oz) (04/16/23555) BMI: 22.31 (04/15/231702) Usual Body Weight: 52.3 kg [place] weight: 48.7 [place] Weight Based on BMI: 22.84 kg Interpretation of Weight Change Prior to Admission: Greater than 5% weight loss in 1 month (Severe) Nutrition Prescription: Energy needs: 25-30 Kcal/kg Kcal/day: 4496-5989 Based on current weight Protein needs: 1.0-1.2 gm/kg Protein: 49-58 Based on current weight Fluid needs: 25 ml/kg Fluid: 1220 ml/day Based on current weight Malnutrition: Malnutrition Present: Yes (04/16/231051) Adult Malnutrition Classification: Moderate (04/16/231051) Malnutrition Characteristics: Fat loss;Muscle loss;Inadequate energy intake;Weight loss (04/16/231051) Malnutrition Care Plan: Patient meets ASPEN/AND criteria for moderate malnutrition. Plan to meet 75% of estimated calorie and 75% of estimated protein requirements via therapeutic diet and a nutrition intervention of oral nutrition supplements. If patient unable to achieve estimatedrequirements over next 7 days, will need to consider enteral nutrition. NUTRITION DIAGNOSIS: Malnutrition moderate related to chronic illness as evidenced by patient consuming less than 75% ofestimated energy requirements x 1 month, greater than 5% weight loss x 1 month, mild fat loss, and mild muscle loss. Goals: Patient to consume greater than 50 % of daily meals and 75% of daily supplements within 5 days. NUTRITION INTERVENTION/PLAN: Orders: Oral nutrition supplement added Boost Breeze (1 cup provides 250 calories, 9 grams protein,54 grams carbohydrate) TID Clinical Nutrition Recommendations: Diet: Continue current nutrition plan NUTRITION MONITORING AND EVALUATION: Nursing documentation flowsheets for percent meal intake Tolerance of supplement per patient/nursing report Lab values warranting change with MNT Weight for trends Plan follow-up: Will follow and adjust nutrition plan of care as medical condition requires. Please contact for change(s) in patient condition requiring earlier intervention. Misty Valladares, MS, RDN, LDN Clinical Dietitian [facility] Available via [employer] [phone] * Brianda Hanna, Acid Concentrator - 04/16/2023 9:25 AM ESTAssociated Order(s): CARE MANAGEMENT CONSULT IP See ancillary CM note. documented in this encounter Nursing Notes * Peter Higgins RN - 04/17/2023 1:44 PM EST VIRTUAL RN [address] [address] Name: Marie Nieves Location: [facility] [id number]/ Date: 04/17/2023 Time: 1:44 PM I completed the Discharge Navigator and Education. The patient was in the hospital. I was not in a hospital or clinic location. After connecting through [employer], the patient was identified by name and date of and / or wristband checked. Patient (or authorized legal contracts representative) was then i nformed that this was a Virtual Nurse visit and was being conducted confidentially over secure lines. I used a headset and other methods to ensure confidentiality for the patient. My office door was closed. No one else was in the room with me. Patient acknowledged consent and understanding of privacy and security of the Virtual Nurse visit. I presented the opportunity for the patient or authorized legal contracts representative to ask any questions regarding the visit today. The patient or authorized legal contracts representative agreed to participate. * Jacques Carrillo RN - 04/15/2023 5:22 PM EST VIRTUAL RN [address] [address] Name: Marie Nieves Location: [facility] 3B/ Date: 04/15/2023 Time: 5:22 PM I completed the Admission Navigator. The patient was in the hospital. I was in a private office space at a [facility] location. After connecting through [employer], the patient was identified by name and date of and / or wristband checked. Patient (or authorized legal contracts representative) was then in formed that this was a Virtual Nurse visit and was being conducted confidentially over secure lines. I used a headset and other methods to ensure confidentiality for the patient. Patient acknowledgedconsent and understanding of privacy and security of the Virtual Nurse visit. I presented the opportunity for the patient or authorized legal contracts representative to ask any questions regarding the visit today. The patient or authorized legal contracts representative agreed to participate. Marie Nieves is an 82 y.o.f. admitted with generalized weakness. She is A&Ox4, NEWMAN, able to answer all admission questions easily. Knows her routine meds, their use and dosing schedule. States she understands everything discussed, and had no questions following the admission process. Her call marie is within reach. documented in this encounter ED Notes * Donald Mejia, - 04/15/2023 12:56 PM EST HISTORY OF PRESENT ILLNESS Marie Nieves is a 82 year old female who presents to the ED for evaluation of Weakness, Generalized. The patient was seen at 04/15/23 1245. Weakness, Generalized Review of Systems All other systems reviewed and are negative. This is an 82-year-old female presenting to the emergency department with persistent generalized weakness over the last few weeks. The patient states she has been too weak to get out of bed over the last few days. She has had difficulty swallowing over the last month, and has had this worked up on an outpatient basis including swallowing studies, and fluoroscopy, with reports detailed below. Theyhave been told that her generalized weakness is likely due to malnutrition. Daughter states she hashad some decreased p.o. intake due to her swallowing difficulty. The patient has been coughing up whitish sputum, and feels like she needs to clear her throat often. She denies any fevers, but has had some chills intermittently. She denies any pain. Denies any urinary symptoms or diarrhea. Denies any shortness of breath. The patient was referred to the emergency department today as outpatient labs performed last week showed a leukocytosis of over 20,000. FLUORO ESOPHAGUS 03/27/23: IMPRESSION: Laryngeal penetration and aspiration of material. Consider speech therapy consultation as discussed. Transient asymmetry in contour of cervical esophagus as discussed. Some retention of contrast material within vallecula and particularly left piriform sinus. Thoracic esophageal dysmotility. The patient's allergies, past history, and medications were reviewed. PHYSICAL EXAM Initial Vitals (see all): BP 90/57 | Pulse 76 | Resp 18 | Temp 98.8 | O2 99 %, Room Air, None | Weight 47.63 kg | Height 146.1 cm | BMI 22.33 kg/m2 Initial Pain Assessment (see all): 0 (no pain)/10 ([facility] Adult Scale 0-10) Physical Exam Vitals and nursing note reviewed. Constitutional: General: She is not in acute distress. Appearance: She is well-developed. She is not ill-appearing. Comments: Frail, elderly female, sitting up in bed, in no acute distress HENT: Head: Normocephalic and atraumatic. Right Ear: External ear normal. Left Ear: External ear normal. Nose: Nose normal. Mouth/Throat: Mouth: Mucous membranes are dry. Pharynx: Oropharynx is clear. Eyes: Conjunctiva/sclera: Conjunctivae normal. Cardiovascular: Rate and Rhythm: Normal rate and regular rhythm. Heart sounds: No murmur heard. Pulmonary: Effort: Pulmonary effort is normal. No respiratory distress. Breath sounds: Normal breath sounds. Abdominal: Palpations: Abdomen is soft. Tenderness: There is no abdominal tenderness. Musculoskeletal: General: No swelling. Cervical back: Neck supple. Skin: General: Skin is warm and dry. Capillary Refill: Capillary refill takes less than 2 seconds. Coloration: Skin is not pale. Findings: No erythema. Neurological: General: No focal deficit present. Mental Status: She is alert and oriented to person, place, and time. Mental status is at baseline. Psychiatric: Mood and Affect: Mood normal. PROCEDURES AND TREATMENTS ED Orders | ED Results MEDICAL DECISION MAKING Nursing notes and vital signs were reviewed. ED consults were placed. ED Course as of 04/15/232208Apr 15, 2023 154 TTE performed less than 2 months ago showed ejection fraction of 65%. [JH] ED Course User Index [JH] Donald Mejia D, DO Differential Diagnoses Based on my history, physical exam, and evaluation, the differential includes, but is not limited, to the following diagnoses: Sepsis, pneumonia, dehydration, electrolyte abnormality, viral syndrome,CVA/ TIA, neuromuscular disease, thyroid disorder, urinary tract infection. Amount and/or Complexity of Data Reviewed Labs: ordered. Radiology: ordered. Risk Prescription drug management. Decision regarding hospitalization. This is an 82-year-old female presenting to the emergency department with worsening generalized weakness. On arrival, patient as blood pressure 90/57, borderline hypotensive. Vital signs otherwise normal. Physical exam as above. Given leukocytosis on labs last week, as well as presenting blood pressure, blood cultures were obtained. She was initially given a 500 mL bolus of normal saline. CBC didshow leukocytosis of over 20,000, similar to previous labs. BNP normal for patient's age. CMP without significant abnormality. Urinalysis without evidence of infection. Troponin slightly elevated butstable on repeat. Magnesium slightly low 1.7 and patient was given IV magnesium. Phosphorus was normal. Chest x-ray, per my interpretation, did not show any acute cardiopulmonary process. Procalcitonin only slightly elevated. TSH normal. Despite initial 500 mL bolus of normal saline, patient's pressures remained in the 90s, and did transiently dipped down into the 80s systolic. Therefore, patientwas ordered vancomycin and Zosyn, as well as additional 500 mL bolus of normal saline. Given patient's leukocytosis, hypotension, I discussed patient's case with the hospitalist service, who acceptedthe patient for further workup and management. I did add on a CT scan of the head, which did not show any acute intracranial process. Patient remained stable while under my care in the emergency department. Clinical Impressions Generalized weakness Leukocytosis, unspecified type Disposition Admitted. I discussed the management of this patient with the admitting provider and I made a decision to admit the patient. Admission Order Ordered Status . 04/15/23 1613 Admit for Inpatient Services (incl ZPO) ONCE Completed Donald Mejia * Odilon Olsen RN - 04/15/2023 12:38 PM EST Pt c/o generalized weakness and anorexia. Pt did have blood work done and showed elevated WBCs. Pt referred here by PCP d/t abnormal labs. documented in this encounter Miscellaneous Notes * Ancillary Progress Note - Brianda Hanna Acid Concentrator - 04/17/2023 2:04 PM EST CARE MANAGEMENT - ADULT DISCHARGE NOTE [facility]-[address] [address] Name: Marie Nieves Location: [facility] 3B-3012/W Date: 04/17/2023 Time: 5:19 PM The following coordination of care and discharge plan has been coordinated with the care team, patient, family and/or caregiver according to the patients needs and preferences. Discharge Discharge Second Notice Important Message from Medicare delivered: Not Applicable (IMM 04/15/23) (04/17/231699) Was Caregiver/Family/Facility contacted regarding discharge: Yes (04/17/23 170) Discharge Transportation: Family/Friends drive (04/17/23 170) Date of scheduled discharge transportation: 04/17/23 (04/17/23 170) Patient declined post-hospital transition of care recommendation: Senior Living Facility (04/17/23 1700) Final Discharge Plan (Complete only at time of Discharge): Home with Services (04/17/23 170) Narrative: Pt discharged to her daughter's home with her daughter providing transportation. A referral was made to [facility] for PT/OT/skilled nurse. * Ancillary Progress Note - Brianda Hanna Acid Concentrator - 04/17/2023 10:43 AM EST CM called to [facility] to follow-up on referral for HH and spoke to Azucena. Azucena is going to reach out to the nurse working on pt's referral to see if there is an acceptance or denial. 1108- CM received a return phone call from Rhina at [facility] and pt was declined d/t staffing. 1113- CM spoke with Daphne Garcia from [facility] re: referral for pt. * Hospital Course - Martin Huynh DO - 04/17/2023 10:39 AM EST Pt was admitted to the 3rd floor medical unit. Pt was given IV fluids and IV Zosyn/Vanc. She was placed on mechanical VTE prevention measures. The O2 sat was titrated to > 90%. Serial lab studies were completed. Blood and urine cultures were completed and were negative. There was no evidence of pneumonia on the xray's. Her MARIO was held due to low BP. She had no further fever. Her WBC improved.MRI was negative for stroke. She was ambulated. At the time of discharge the vital signs were stable and pt was afebrile. BP 113/52 | Pulse 75 | Temp 37 C (98.6 F) (Temporal Artery) | Resp 20 | Ht 1.461 m (4' 9.5") | Wt 48.7 kg (107 lb 6.4 oz) | SpO2 97% | BMI 22.84 kg/m | BSA 1.41 m . The p atient denied CP, SOB, BAUER, dizziness, vomiting or diarrhea. The physical exam on the day of discharge was stable. She was seen with the rounding team. At the time of discharge the patient was ambulating and her functional status was at baseline. She was tolerating oral nourishment without difficulty. Discharge medications and discharge planning discussed with the patient in detail. * Ancillary Progress Note - Jael Jacques WEBSPHERE PORTAL DEVELOPER - 04/17/2023 9:25 AM EST PROGRESS NOTE - Physical Therapy [facility] [place] [address] Name: Marie Nieves Location: [facility] 3B-3012/W Date: 04/17/2023 Time: 924 Marie Nieves is a/an 82 year old female. Patient Status: Inpatient Insurance: Payor: [email or web address] Plan: [email or web address] CLASSIC 1 PART D MC-LD Product Type: *No Product type* Patient Seen: at bedside, nursing cleared patient for therapy Patient Identified By: Name, ID Band and Date Diagnosis: weakness (04/17/23924) Status of treatment: Treatment completed (04/17/23924) Orders: OOB (04/17/23924) Weight Bearing Status: Weight bearing as tolerated (04/17/23924) Precautions: Safety;Falls (04/17/23924) Total Treatment Time--free text: 25 (04/17/23924) Subjective: Pt ready to get up and walk. Pain: No complaints of pain P.T. Bed Mobility Supine-Sit: Independent (04/17/23924) Sit-Supine: Independent (04/17/23924) Transfers Sit-Stand: Supervision (04/17/23924) Stand-Sit: Supervision (04/17/23924) W/C-Bed/Mat: Supervision (04/17/23924) Ambulation: Distance ambulated (feet): 160 Assistive Device: No device Assist: Hand-held Assistance Min BAUER for balance Balance Sit (Static): Good (04/17/23924) Sit (Dynamic): Good (04/17/23924) Stand (Static): Fair (04/17/23924) Stand (Dynamic): Fair (04/17/23924) Patient and or Family Goal(s): to return home Topic of Education: Safety with mobility Extremity Exercise Knee : Bilateral LE;Flexion;Extension;1 set of 10 (04/17/23129) Ankle: Plantar flexion;Dorsiflexion;1 set of 10 (04/17/23129) Supine: Isometrics (04/17/23129) Isometrics: Glute sets;Quad sets;1 set of 10 (04/17/23129) Method of Education: Demonstrated the above task to pt: demonstrated the exercise and or task Treatment Provided: Gait Training 15 minutes: gait training with Handheld assist Therapeutic Exercises: 15 minutes Alarm Status Patient positioned in: Bed (04/17/23129) With: Call marie in reach (04/17/23129) Patient Education Review of Precautions: Safety;Fall (04/17/23924) Safety Awareness: Patient verbalizes insight of current deficits;Patient demonstrates carryover of insight during functional tasks;Patient can communicate basic needs (04/17/23924) Preferred learning method: Combination (04/17/23924) Barriers to learning: Medical Status (04/17/23924) Method of Education: Verbalized to patient (04/17/23924) Assessment: Pt is I with bed mobility. Transfers with supervision. Gt with ETL LEAD x 1 160 ft. Balance air. Completed LE strengtheing exc and balance exc of feet together EO / EC x 30 sec, STS x 10, ETL LEAD single alternating side stepping x 10. Endurance with activity. Balance with gt somewhat precarious. Deficits requiring P.T. treatment needs: Safety;Balance;Mobility;Weakness;Lower extremity strength (04/17/23924) Equipment needs: Rolling walker (04/16/23 1040) Plan: Continue with current treatment plan established on evaluation. AM PAC Score with Stairs: 20 * Care Plan - Ena Ya RN - 04/17/2023 5:22 AM EST Clinical Goal(s): Pt will remain free of injury for duration of shift (04/16/23 2298) Possible barriers to meeting goal(s)/advancing plan of care: acuity of illness Stability of the patient: Moderately stable - low risk of patient condition declining or worsening Summary regarding today's goal(s): Met: Pt remained free of injury this shift Recommendations: continue plan of care * Care Plan - Beatrice Abraham RN - 04/16/2023 6:14 PM EST Clinical Goal(s): pt will have no falls this shift (04/16/23 0800) Possible barriers to meeting goal(s)/advancing plan of care: Acuity of Illness Stability of the patient: Moderately stable - low risk of patient condition declining or worsening Summary regarding today's goal(s): Met: pt had no falls this shift and rang call marie when out of bed Recommendations: keep call marie in reach, hourly rounding * Ancillary Progress Note - Kayleen Ward RN - 04/16/2023 11:49 AM EST Pt here for MRI and has medtronic pacemaker. Pacemaker inserted on 12/05/22 for SSS. Cardiology order form confirmed signed on chart. Pt prepped for test. Pacemaker remotely interrogated and placed into MRI safemode by Vu Tobar medtronic rep. Pt monitored during test, remained stable. Pacemaker returned to baseline settings remotely by Vu Tobar * Ancillary Progress Note - Raza Broderick Chaplain - 04/16/2023 9:38 AM EST PROGRESS NOTE - Spiritual Care Contact Information [facility]-[address] [address] Name: Marie Nieves Location: [facility] 3B-3012/W Date: 04/16/2023 Time: 3:08 PM Hindu: Jew [32] Gnosticism Affiliations: REASON FOR VISIT: rounding REQUEST RECEIVED FROM: rounding VISIT LENGTH: 6 REQUEST FACTORS (Nature of Situation): Initial Visit FOCUS OF CARE: Patient SPIRITUAL ASSESSMENT: Adriane or Belief System: Jew Most Important Need(s) / Concern(s): Helpless and Suffering Sense of Community and/or Gnosticism Affiliation: [facility] NICO Romero manager of application development Sandy; adriane comforts her . Addresses need(s)/concerns(s) and/or aki through: Adriane, Family, God/Higher Power, Peace/Calmness, Rituals/Sacraments SPIRITUAL CARE PROVIDED: Job Putter Up And Ticket Preparer addressed needs/concerns and/or coping through: Crooks, Facilitating sharing/expression,Listening presence, Prayer, and Supportive dialogue REFERRAL TO: N/A OUTCOMES: Affirmation, Crooks, Comfort/Healing Presence, Dealing with Ambiguity, Identifying Patient's Strengths/Source of Hope, Spiritually Connected, Support System Identified, Trust Self/Others/God ANNOTATION: Pt shared briefly and stated she "felt a little better.." She reports a supportive family and stated her manager of application development knows about her hospitalization. I provided supportive listening presence and prayed with pt. Pt was comforted by support. * Ancillary Progress Note - Brianda Hanna, Acid Concentrator - 04/16/2023 9:25 AM EST CARE MANAGEMENT - ADULT INITIAL SCREENING [address] [address] Name: Marie Nieves Location: [facility] 3B-3012/W Date: 04/16/2023 Time: 3:59 PM Discussed patient with the interdisciplinary care team. This Water Rights Specialist performed a chart review and met with pt at bedside to complete admission screen and assessed needs for transition planning. The team primary care physician role and services were explained and emotional support was provided. Chief Complaint: Weakness, Generalized Prior Living Arrangements What was your living situation prior to admission/observation?: Independently;Alone (04/16/23924) Living Quarters: House (04/16/23924) Number of steps to enter living quarters:: 1 (04/16/23924) Do you have serious difficulty walking or climbing stairs? (5 years old or older): Yes (04/15/231706) History of falling: No (04/16/23799) Prior Level of Functioning Describe the patient's ability prior to admission/observation to perform ADLs: Performs independently (04/16/23924) Describe the patient's mobility status prior to admission: Patient ambulates independently (04/16/23924) Patient uses assistive device: No (04/16/23924) If yes, choose:: Cane (04/15/231706) Caregiver Information Patient Contacts Name Relation Home Work Mobile Gonzalez,Suri Adult Child [phone] Pt came to the [facility] ED on 04/15/23 with c/o generalized weakness and poor appetite. Pt was admitted with sepsis. Pt has consults for PT/OT, CM, and nutrition services. Pt is insured by [facility]. Pt lives alone in a single story home with one step to enter. Pt doesn't use her basement. Pt reports being independent with ADL's and ambulation without an assistive device. Pt reports that right before coming to the ED she was using a rw. Pt has a cane, rw, a cutout tub, and w/c. Pt is still driving and if she is unable to drive her son or daughter can provide transportation. Pt has no current in-home services. Pt plans on discharging to her daughter's home upon discharge from [facility]. Her daughter's address is [address] [place] [address]. Pt is in agreement to HH. 1526- CM spoke to pt's daughter via phone and confirmed that pt is able to discharge to her daughter's home and she is in agreement to HH coming into the home. There is no preference on HH agency. 1620- Referral made to Azucena at [facility]. Risk Stratification/Psychosocial/Care Gaps Risk Stratification Psycho Social / Medical Concerns Identified: Adjustment to illness/injury;Multiple Comorbidities;Chronic Kidney Disease (04/16/23924) Accessed Neighborly to connect patients to social care resources: No (04/16/23924) OBRA or OPTIONS needed for placement: No (04/16/23924) Readmission Risk Score: 15.02 (04/16/23 1201) AM-PAC Score With Stairs : 20 (04/16/23 1040) Prior to Admission Services Services Prior to Admission WEBSPHERE PORTAL DEVELOPER Services (Services received within the last 30 days with exception, Psych within last two years): Durable Medical Equipment (04/16/23924) WEBSPHERE PORTAL DEVELOPER Durable Medical Equipment (DME) in home: Cane;Walker Rolling;Wheelchair standard (04/16/23924) [place] Dept. of Aging (PDA) Waiver Program: N/A (04/16/23924) WEBSPHERE PORTAL DEVELOPER Transportation (Services received within the last 30 days): Family/Friends Personal Vehicle;Patient drives self (04/16/23924) Outpatient Water Rights Specialist: Patient Care Team: Jeanie Villagran, DONALD as Can Feeder (Registered Nurse) Patient/Family Expectations: Discharge to daughter's home For further screening information, please refer to the Care Management flow document. * Care Plan - Magui Hernandez RN - 04/15/2023 7:25 PM EST Clinical Goal(s): Patient will remain free from falls this shift (04/15/23 1703) Possible barriers to meeting goal(s)/advancing plan of care: Acuity of illness Stability of the patient: Moderately stable - low risk of patient condition declining or worsening Summary regarding today's goal(s): Met: Patient remained free from falls this shift Recommendations: fall precautions * Ancillary Progress Note - Magui Hernandez RN - 04/15/2023 6:57 PM EST Patient ambulated in room with no issues. Patient is oriented to room. Matt marie within reach and bed alarm is on. Virtual nurse did admission questions. Dual Licensed Skin Assessment completed by Magui Hernandez RN and Sulema Barnes RN. The patient is/has a N/A Skin Breakdown (includes non blanchable erythema): No; * Medical Necessity - Re Kamara RN - 04/15/2023 4:22 PM EST AdmissionCare Guideline: Neurology, Inpatient Based on the indications selected for the patient, the bed status of Inpatient was determined to beMET The following indications were selected as present at the time of evaluation of the patient: - Neurologic finding requiring inpatient care, as indicated by 1 or more of the following: - Weakness that is progressive or severe (eg, inpatient care needed due to functional disability, concern for safety) Additional Information: Generalized weakness IVF, IV mg, IV zofran, IV Vanco, IV AdmissionCare documentation entered by: Re Kamara [facility] Practice Fusion, 27th edition, Copyright 2022 [facility] Practice Fusion, [facility] All Rights Reserved. [id number] Solely for purpose of utilization review and payment; not a diagnostic tool * ED Bonding Agent Note - Zenobia Mishra RN - 04/15/2023 2:16 PM EST Pt comes in today for generalized weakness and poor appetite for one month. Pt comes in with her daughter who is concerned for pt especially since she lives alone. Pt has been having trouble getting around and having the energy to take care of herself. Pt has felt like she has had a virus for 1 month. Pt did see a provider for trouble swallowing and they told her she probably has a virus and it would run its course. Pt has had chills with no known fever. Pt has no n/v/d. Pt eats 1 piece of toast and maybe 1 Ensure dairy-free a day. Respirations equal and unlabored. Pt did ambulate independently to bathroom and back with her walker. Pt did well but stated that shedid feel tired. documented in this encounter Plan of Treatment Upcoming Encounters Date Type Department Care Team (Late st Contact Info) Description 04/18/2023 11:00 AM EST Office Visit Orthopaedics [facility] [address] [address] Chava Huff PA-C [address] [address] 04/23/2023 11:00 AM EST [facility] [address] [facility] [phone] Kal[facility]ibeiro [facility] [address] [facility] [id number] 06/28/2023 8:00 AM EDT Office Visit [facility] [address] [place] [phone] Kalen Ribeiro MD [address] [place] [address] 08/08/2023 2:20 PM EDT Office Visit Otolaryngology/Head & Neck/Facial Plastic Surgery [address] [place] [address] Joesph Yun MD [address] [place] [address] 09/02/2023 9:00 AM EDT Office Visit Cardiology, [facility] [address] [facility] [place] [address] Halley Preston CRNP [address] [facility] [address] 09/05/2023 10:30 AM EDT Rehab Services Voice Lab, [address] [address] Lance Smauels, [facility] QUALITY CONTROL ANALYST [address] [facility] [place] [address] 09/05/2023 11:00 AM EDT Appointment Radiology, [facility] [address] [place] [address] 02/10/2024 10:00 AM EST Cardiac Studies Cardiology, [facility] [address] [place] [address] [facility] [address] [place] [address] 02/13/2024 8:15 AM EST Cardiac Studies Cardiac Studies, [facility] [address] [facility] [address] [address] Pending Results Name Type Priority Associated Diagnoses Date /Time CULTURE, BLOOD Lab Routine 04/15/2023 1:16 PM EST CULTURE, BLOOD Lab Routine 04/15/2023 1:22 PM EST Health Maintenance Due Date Last [...] Additional history exists CKD HGB USE SMARTSET 41127 04/17/202404/17, 04/16/2023, 04/15/2023, Additional history exists CKD PHOS USE SMARTSET 64790 04/17/202409/2023, 04/16/2023, 04/15/2023, Additional history exists DTaP,Tdap,and Td Vaccines (2 - Td or Tdap) 08/14/2024 08/14/2014, 01/25/2000 Pneumococcal Vaccine: 65+ Years Completed 01/06/2015, 08/19/2007 VITAMIN D LEVEL ONCE IN A LIFETIME-USE SMARTSET# 93914 Completed 12/11/2018, 07/07/2018, 10/06/2010 Influenza Vaccine (FLU [...] this encounter Medical Devices Implanted Type Area Engineer Automated Equipment Device Identifier Shelf Expiration Date Model / Serial / Lot Molly Pacemaker-12/05 Implanted:Qty: 1 on 12/05/2022 ICD Chest [employer] : CARDIAC SURGERY 09/02/2025 [id number] / / . Lead-12/05/2022 Implanted:Qty: 2 on 12/05/2022 Lead Chest [employer] : CARDIAC SURGERY 10/28/2025 [id number] / / . Lead Tempo Temp Pacing - [id number] Implanted:Qty: 1 on 09/20/2020 by Dimitri Maya MD at CARDIAC LABS [facility] [employer] [id number] 06/28/2021 [id number] / / [id number] documented as of this encounter Procedures Procedure Name Priority Date/Time Associated Diagnosis Comments VANCOMYCIN RANDOM Timed 04/17/2023 5:5 7 AM EST COMPREHENSIVE METABOLIC PANEL Routine 04/17/2023 5:57 AM EST PHOSPHORUS Routine 04/17/2023 5:57 AM EST CBC Routine 04/17/2023 5:57 AM EST MAGNESIUM Routine 04/17/2023 5:57 AM EST MRSA SCREEN, PCR Routine 04/16/2023 12:4 3 PM EST MRI BRAIN WITHOUT CONTRAST STAT 04/16/2023 12:14 PM EST XR CHEST 1 VIEW Routine 04/16/2023 8:41 AM EST CULTURE, URINE, QUANTITATIVE Routine 04/16/2023 6:03 AM EST COMPREHENSIVE METABOLIC PANEL Routine 04/16/2023 5:18 AM EST PHOSPHORUS Routine 04/16/2023 5:18 AM EST CBC Routine 04/16/2023 5:18 AM EST MAGNESIUM Routine 04/16/2023 5:[address] HEAD/BRAIN WO CONTRAST STAT 04/15/2023 3:59 PM EST SARS-COV-2 (COVID-19), NAAT STAT 04/15/2023 2:45 PM EST TROPONIN T, HIGH SENSITIVITY STAT 04/15/2023 2:43 PM EST XR CHEST 2 VIEWS STAT 04/15/2023 1:53 PM EST URINALYSIS, REFLEX TO CULTURE STAT 04/15/2023 1:46 PM EST URINALYSIS, REFLEX TO CULTURE (CUP ONLY) STAT 04/15/2023 1:46 PM EST URINALYSIS, REFLEX TO CULTURE (NOT FOR NEUTROPENIC PATIENTS) STAT 04/15/2023 1:46 PM EST CULTURE, URINE, QUANTITATIVE STAT 04/15/2023 1:46 PM EST CULTURE, BLOOD Routine 04/15/2023 1:22 PM EST LACTATE WITH REFLEX IF ABNORMAL STAT 04/15/2023 1:16 PM EST EXTRA LIGHT BLUE TOP Routine 04/15/2023 1:16 PM EST DIFFERENTIAL, AUTOMATED STAT 04/15/2023 1:16 PM EST TROPONIN T, HIGH SENSITIVITY STAT 04/15/2023 1:16 PM EST PROCALCITONIN Routine 04/15/2023 1:16 PM EST TSH WITH FREE T4 IF INDICATED Routine 04/15/2023 1:16 PM EST BNP (NT-PROBNP) Add-on 04/15/2023 1:16 PM EST BNP (NT-PROBNP) STAT 04/15/2023 1:16 PM EST COMPREHENSIVE METABOLIC PANEL STAT 04/15/2023 1:16 PM EST FOLIC ACID Add-on 04/15/2023 1:16 PM EST CBC STAT 04/15/2023 1:16 PM EST PHOSPHORUS Add-on 04/15/2023 1:16 PM EST CULTURE, BLOOD Routine 04/15/2023 1:16 PM EST CBC STAT 04/15/2023 1:16 PM EST MAGNESIUM STAT 04/15/2023 1:16 PM EST VITAMIN B12 Add-on 04/15/2023 1:16 PM EST documented in this encounter Results * (ABNORMAL) COMPREHENSIVE METABOLIC PANEL (04/17/2023 5:57 AM EST) BUN 11 6 - 20 mg/dL 04/17/2023 6:57 AM EST LABORATORY [facility] Creatinine 0.7 0.5 - 1.0 mg/dL 04/17/2023 6:57 AM EST [facility] Estimated Glomerular Filtration Rate 89 >=60 mL/min 04/17/2023 6:57 AM EST [facility] Comment:eGFR is calculated b ased on the CKD-EPI 2020 equation Sodium 141 135 - 146 mmol/L 04/17/2023 6:57 AM EST [facility] Potassium 3.6 3.5 - 5.1 mmol/L 04/17/2023 6:57 AM EST [facility] Chloride 107 98 - 107 mmol/L 04/17/2023 6:57 AM EST [facility] CO2 22 22 - 32 mmol/L 04/17/2023 6:57 AM EST [facility] Anion Gap 12 7 - 15 mmol/L 04/17/2023 6:57 AM EST [facility] Glucose 104 70 - 120 mg/dL 04/17/2023 6:57 AM EST [facility] Albumin 2.9(L) 3.8 - 5.0 g/dL 04/17/2023 6:57 AM EST [facility] AST 33 10 - 35 U/L 04/17/2023 6:57 AM EST [facility] Comment:Result may be falsel y elevated due to hemolysis. Alkaline Phosphatase 55 35 - 130 U/L 04/17/2023 6:57 AM EST [facility] Bilirubin, Total 0.4 <=1.2 mg/dL 04/17/2023 6:57 AM EST [facility] Calcium 8.5 8.4 - 10.2 mg/dL 04/17/2023 6:57 AM EST [facility] Protein 5.9(L) 6.0 - 8.3 g/dL 04/17/2023 6:57 AM EST [facility] ALT 23 10 - 35 U/L 04/17/2023 6:57 AM EST [facility] Blood Venous blood specimen / Unknown Venipuncture / Unknown 04/17/2023 5:57 AM EST 04/17/2023 6:35 AM EST Janet Moraes PA-C LAB BLOOD ORDER [facility]WETA LABORATORY [facility] [address] [place] [address] * (ABNORMAL) PHOSPHORUS (04/17/2023 5:57 AM EST) Phosphorus 2.3(L) 2.5 - 4.8 mg/dL 04/17/2023 6:57 AM EST [facility] Blood Venous blood specimen / Unknown Venipuncture / Unknown 04/17/2023 5:57 AM EST 04/17/2023 6:35 AM EST Janet Moraes PA-C LAB BLOOD ORDER SHWETA Performing Organization Address City/[facility] [address]/ZIP Co de Phone Number LABORATORY GL [address] [place] [address] * MAGNESIUM (04/17/2023 5:57 AM EST) Magnesium 2.0 1.5 - 2.6 mg/dL 04/17/2023 6:57 AM EST LABORATORY [facility] Blood Venous blood specimen / Unknown Venipuncture / Unknown 04/17/2023 5:57 AM EST 04/17/2023 6:35 AM EST Janet Moraes PA-C LAB BLOOD ORDER [facility]WETA LABORATORY [facility] [address] [place] [address] * (ABNORMAL) CBC (04/17/2023 5:57 AM EST) WBC 14.70(H) 4.00 - 10.80 K/uL 04/17/2023 6:41 AM EST LABORATORY [facility] RBC 3.97 3.85 - 5.15 M/uL 04/17/2023 6:41 AM EST LABORATORY [facility] HGB 12.1 12.0 - 15.3 g/dL 04/17/2023 6:41 AM EST LABORATORY [facility] HCT 38.2 36.0 - 45.2 % 04/17/2023 6:41 AM EST LABORATORY [facility] MCV 96.2 81.5 - 97.5 fL 04/17/2023 6:41 AM EST LABORATORY [facility] MCH 30.5 27.0 - 34.0 pg 04/17/2023 6:41 AM EST LABORATORY [facility] MCHC 31.7 32.0 - 36.0 g/dL 04/17/2023 6:41 AM EST LABORATORY [facility] RDW 12.8 11.5 - 15.5 % 04/17/2023 6:41 AM EST LABORATORY [facility] PLT 334 140 - 400 K/uL 04/17/2023 6:41 AM EST LABORATORY [facility] MPV 9.5 6.6 - 11.1 fL 04/17/2023 6:41 AM EST LABORATORY [facility] nRBCs 0 <=0 /100 WBCs 04/17/2023 6:41 AM EST LABORATORY [facility] Blood Venous blood specimen / Unknown Venipuncture / Unknown 04/17/2023 5:57 AM EST 04/17/2023 6:35 AM EST Janet Moraes PA-C LAB BLOOD ORDER SHWETA Performing Organization Address [facility] [address]/[facility] Co de Phone Number LABORATORY [facility] [address] [place] [address] * VANCOMYCIN RANDOM (04/17/2023 5:57 AM EST) Pathologist [facility] Vancomycin Random 10.4 10.0 - 40.0 ug/mL 04/17/2023 8:36 AM EST LABORATORY [facility] Blood Venous blood specimen / Unknown Venipuncture / Unknown 04/17/2023 5:57 AM EST 04/17/2023 6:35 AM EST Lloyd Mccrary DO LAB BLOOD ORDER SHWETA Performing Organization Address [facility] de Phone Number LABORATORY [address] [address] * MRSA SCREEN, PCR (04/16/2023 12:43 PM EST) Pathologist [facility] MRSA PCR Result Negative Negative 8:47 PM EST LABORATORY [facility] Comment:No Methicillin resis tant Staphylococcus aureus detected by PCR (amplified probe). Upper Respiratory Swab of internal nose / Unknown Non-blood Collection / Unknown 04/16/2023 12:43 PM EST 04/16/2023 12:46 PM EST Anna Lam DO LAB MICRO - GENERAL ORDERABLES Performing Organization Address [facility] [address]/[facility] Co de Phone Number LABORATORY [facility] [address] [place] [address] * MRI BRAIN WITHOUT CONTRAST (04/16/2023 12:14 PM EST) Anatomical Region Laterality Modality Neuro, Head Magnetic Resonan ce 04/16/2023 1:15 PM EST Impressions 04/16/2023 1:13 PM EST IMPRESSION: No evidence of acute infarction, intracranial hemorrhage, or mass. Potential mildly increased FLAIR hyperintense signal throughout the mammillary bodies and periaqueductal slaughter matter which is nonspecific but could reflect sequela of a finding deficiency versus areas of chronic microvascular disease. Clinical correlation is advised. Generalized parenchymal volume loss with additional areas of chronic microvascular disease. Narrative 04/16/2023 1:13 PM EST EXAM: MRI BRAIN WITHOUT CONTRAST - 04/16/2023 HISTORY: Dysphagia, failure to thrive TECHNIQUE: MR images of the brain were acquired without intravenous contrast. COMPARISON: MRI brain 06/22/2021, CT head 04/15/2023 FINDINGS: No evidence of acute infarction, intracranial hemorrhage, or mass. Potential subtle increased T2/FLAIR hyperintense signal throughout the mammillary bodies and perioptic slaughter matter. Patchy areas of T2/FLAIR hyperintense signal throughout the periventricular, subcortical, and deep white matter which are nonspecific but likely related to chronic microvascular disease. Diffuse parenchymal volume loss with proportionate ventricular and sulcal prominence. No hydrocephalus. No extra-axial fluid collections. The vascular flow voids at the base of the brain are preserved. Mucosal thickening scattered throughout the paranasal sinuses with opacification of several left anterior ethmoid air cells. The mastoid air cells are clear. Orbits are unremarkable. The calvarium is intact. Procedure Note Abebe Harrington MD - 04/16/2023 EXAM: MRI BRAIN WITHOUT CONTRAST - 04/16/2023 HISTORY: Dysphagia, failure to thrive TECHNIQUE: MR images of the brain were acquired without intravenous contrast. COMPARISON: MRI brain 06/22/2021, CT head 04/15/2023 FINDINGS: No evidence of acute infarction, intracranial hemorrhage, or mass.Potential subtle increased T2/FLAIR hyperintense signal throughout themammillary bodies and perioptic slaughter matter. Patchy areas of T2/FLAIRhyperintense signal throughout the periventricular, subcortical, and deepwhite matter which are nonspecific but likely related to chronicmicrovascular disease. Diffuse parenchymal volume loss with proportionate ventricular and sulcalprominence. No hydrocephalus. No extra-axial fluid collections. Thevascular flow voids at the base of the brain are preserved. Mucosal thickening scattered throughout the paranasal sinuses withopacification of several left anterior ethmoid air cells. The mastoid aircells are clear. Orbits are unremarkable. The calvarium is intact. IMPRESSION IMPRESSION: No evidence of acute infarction, intracranial hemorrhage, or mass. Potential mildly increased FLAIR hyperintense signal throughout themammillary bodies and periaqueductal slaughter matter which is nonspecific butcould reflect sequela of a finding deficiency versus areas of chronicmicrovascular disease. Clinical correlation is advised. Generalized parenchymal volume loss with additional areas of chronicmicrovascular disease. Bhavik Cloud MD RAD MRI-MRA * XR CHEST 1 VIEW (04/16/2023 8:41 AM EST) Anatomical Region Laterality Modality Chest Digital Radiogra phy 04/16/2023 8:35 AM EST Impressions 04/16/2023 8:58 AM EST IMPRESSION: No pneumothorax THIS DOCUMENT HAS BEEN ELECTRONICALLY SIGNED BY LEONOR MONTENEGRO MD Narrative 04/16/2023 8:58 AM EST PROCEDURE INFORMATION: Exam: XR Chest Exam date and time: 04/16/2023 8:35 AM Age: 82 years old Clinical indication: Other: Weakness; Comparison; SOB; Additional info: Assess for pneumothorax TECHNIQUE: Imaging protocol: Radiologic exam of the chest. Views: 1 view. COMPARISON: DX XR CHEST 2 VIEWS 04/15/2023 1:45 PM FINDINGS: Lungs: There is no consolidation Pleural spaces: There is a small pleural effusion versus pleural thickening. No pneumothorax is identified Heart/Mediastinum: The heart is not enlarged. There has been an endovascular aortic valve replacement Bones/joints: There is diffuse osteopenia Other findings: Atheromatous change is seen Procedure Note Leonor Montenegro MD - 04/16/2023 PROCEDURE INFORMATION: Exam: XR Chest Exam date and time: 04/16/2023 8:35 AM Age: 82 years old Clinical indication: Other: Weakness; Comparison; SOB; Additional info:Assess for pneumothorax TECHNIQUE: Imaging protocol: Radiologic exam of the chest. Views: 1 view. COMPARISON: DX XR CHEST 2 VIEWS 04/15/2023 1:45 PM FINDINGS: Lungs: There is no consolidation Pleural spaces: There is a small pleural effusion versus pleuralthickening. No pneumothorax is identified Heart/Mediastinum: The heart is not enlarged. There has been anendovascular aortic valve replacement Bones/joints: There is diffuse osteopenia Other findings: Atheromatous change is seen IMPRESSION IMPRESSION: No pneumothorax THIS DOCUMENT HAS BEEN ELECTRONICALLY SIGNED BY LEONOR MONTENEGRO MD Anna Lam DO RADIOLOGY (RAD GENER AL) * CULTURE, URINE, QUANTITATIVE (04/16/2023 6:03 AM EST) Culture Growth No significant growth 04/17/2023 9:09 AM EST LABORATORY [facility] Urine Urine specimen obtained by clean catch procedure / Unknown Non-blood Collection / Unknown 04/16/2023 6:03 AM EST 04/16/2023 6:06 AM EST Janet Moraes PA-C LAB MICRO - GEN ERAL ORDERABLES LABORATORY [facility] [address] [place] [address] * (ABNORMAL) COMPREHENSIVE METABOLIC PANEL (04/16/2023 5:18 AM EST) BUN 13 6 - 20 mg/dL 04/16/2023 6:51 AM EST [facility] Creatinine 0.7 0.5 - 1.0 mg/dL 04/16/2023 6:51 AM EST [facility] Estimated Glomerular Filtration Rate 87 >=60 mL/min 04/16/2023 6:51 AM EST [facility] Comment:eGFR is calculated b ased on the CKD-EPI 2020 equation Sodium 142 135 - 146 mmol/L 04/16/2023 6:51 AM EST [facility] Potassium 3.0(L) 3.5 - 5.1 mmol/L 04/16/2023 6:51 AM EST [facility] Chloride 106 98 - 107 mmol/L 04/16/2023 6:51 AM EST [facility] CO2 23 22 - 32 mmol/L 04/16/2023 6:51 AM EST [facility] Anion Gap 13 7 - 15 mmol/L 04/16/2023 6:51 AM EST [facility] Glucose 108 70 - 120 mg/dL 04/16/2023 6:51 AM EST [facility] Albumin 2.5(L) 3.8 - 5.0 g/dL 04/16/2023 6:51 AM EST [facility] AST 31 10 - 35 U/L 04/16/2023 6:51 AM EST [facility] Alkaline Phosphatase 51 35 - 130 U/L 04/16/2023 6:51 AM EST [facility] Bilirubin, Total 0.5 <=1.2 mg/dL 04/16/2023 6:51 AM EST [facility] Calcium 7.9(L) 8.4 - 10.2 mg/dL 04/16/2023 6:51 AM EST [facility] Protein 5.2(L) 6.0 - 8.3 g/dL 04/16/2023 6:51 AM EST [facility] ALT 26 10 - 35 U/L 04/16/2023 6:51 AM EST [facility] Blood Venous blood specimen / Unknown Venipuncture / Unknown 04/16/2023 5:18 AM EST 04/16/2023 6:04 AM EST Jaent Moraes PA-C LAB BLOOD ORDER SHWETA Performing Organization Address City/[facility] [address]/ZIP Co de Phone Number LABORATORY [address] [address] * PHOSPHORUS (04/16/2023 5:18 AM EST) Phosphorus 2.8 2.5 - 4.8 mg/dL 04/16/2023 6:51 AM EST LABORATORY [facility] Blood Venous blood specimen / Unknown Venipuncture / Unknown 04/16/2023 5:18 AM EST 04/16/2023 6:04 AM EST Janet Moraes PA-C LAB BLOOD ORDER [facility]ETA LABORATORY [address] [id number] * MAGNESIUM (04/16/2023 5:18 AM EST) Magnesium 2.1 1.5 - 2.6 mg/dL 04/16/2023 6:51 AM EST LABORATORY [facility] Blood Venous blood specimen / Unknown Venipuncture / Unknown 04/16/2023 5:18 AM EST 04/16/2023 6:04 AM EST Janet Moraes PA-C LAB BLOOD ORDER [facility]ETA LABORATORY [address] [address] * (ABNORMAL) CBC (04/16/2023 5:18 AM EST) WBC 16.77(H) 4.00 - 10.80 K/uL 04/16/2023 6:13 AM EST [facility] RBC 3.46 3.85 - 5.15 M/uL 04/16/2023 6:13 AM EST [facility] HGB 10.4(L) 12.0 - 15.3 g/dL 04/16/2023 6:13 AM EST [facility] HCT 33.0(L) 36.0 - 45.2 % 04/16/2023 6:13 AM EST LAB[facility] MCV 95.4 81.5 - 97.5 fL 04/16/2023 6:13 AM EST LABORATORY GL MCH 30.1 27.0 - 34.0 pg 04/16/2023 6:13 AM EST LABORATORY GL MCHC 31.5 32.0 - 36.0 g/dL 04/16/2023 6:13 AM EST LAB[facility]ATORY [facility] RDW 12.7 11.5 - 15.5 % 04/16/2023 6:13 AM EST LABORATORY GL PLT 305 140 - 400 K/uL 04/16/2023 6:13 AM EST LABORATORY GL MPV 9.3 6.6 - 11.1 fL 04/16/2023 6:13 AM EST LAB[facility]ATORY [facility] nRBCs 0 <=0 /100 WBCs 04/16/2023 6:13 AM EST LABORATORY [facility] Blood Venous blood specimen / Unknown Venipuncture / Unknown 04/16/2023 5:18 AM EST 04/16/2023 6:04 AM EST Janet Moraes PA-C LAB BLOOD ORDER SHWETA Performing Organization Address City/[facility] [address]/ZIP Co de Phone Number LABORATORY [address] [address] * CT HEAD/BRAIN WO CONTRAST (04/15/2023 3:59 PM EST) Anatomical Region Laterality Modality Head Computed Tomogra phy 04/15/2023 3:57 PM EST Impressions 04/15/2023 4:32 PM EST IMPRESSION: 1. Moderate age-appropriate global volume loss. 2. No acute intracranial large vessel infarct. 3. No blood products. 4. Mild sinus disease. 5. Partially empty sella may be age-appropriate, not significantly different than recent MR brain 2021. 6. ASPECTS ([place] Stroke Program Early CT Score) is 10. COMMENTS: THIS REPORT CONTAINS FINDINGS THAT MAY BE CRITICAL TO PATIENT CARE. The exam findings were verbally communicated by me to Dr. Mejia via telephone conference at 4:30 PM EST on 04/15/2023. The findings were acknowledged and understood. THIS DOCUMENT HAS BEEN ELECTRONICALLY SIGNED BY MARIKA CRUZ MD Narrative 04/15/2023 4:32 PM EST PROCEDURE INFORMATION: Exam: CT Head Without Contrast Exam date and time: 04/15/2023 3:57 PM Age: 82 years old Clinical indication: Other: Trouble swallowing. Stroke workup TECHNIQUE: Imaging protocol: Computed tomography of the head without contrast. Radiation optimization: All CT scans at this facility use at least one of these dose optimization techniques: automated exposure control; mA and/or kV adjustment per patient size (includes targeted exams where dose is matched to clinical indication); or iterative reconstruction. COMPARISON: MRI BRAIN WITHOUT CONTRAST 06/22/2021 5:53 PM FINDINGS: Brain: Moderate cortical atrophy. Normal slaughter-white differentiation. No midline shift or mass effect. No extra-axial fluid collections. Left basal ganglia punctate calcification. Cerebral ventricles: Ventricles and cisterns have normal size and configuration. No hydrocephalus. Pituitary gland and sella: Partially empty sella may be age-appropriate. Paranasal sinuses: Mild left maxillary sinus mucosal thickening. Scattered ethmoid air cell opacification. Remaining imaged paranasal sinuses clear. Mastoid air cells: Clear. Orbital cavities: Orbital cones and apices unremarkable. Conjugate gaze. Bones/joints: Calvarium unremarkable. Soft tissues: Unremarkable. Other findings: No intraparenchymal blood products. Infundibulum midline. Procedure Note Marika Cruz MD - 04/15/2023 PROCEDURE INFORMATION: Exam: CT Head Without Contrast Exam date and time: 04/15/2023 3:57 PM Age: 82 years old Clinical indication: Other: Trouble swallowing. Stroke workup TECHNIQUE: Imaging protocol: Computed tomography of the head without contrast. Radiation optimization: All CT scans at this facility use at least one ofthese dose optimization techniques: automated exposure control; mA and/or kV adjustment per patient size (includes targeted exams where dose is matchedto clinical indication); or iterative reconstruction. COMPARISON: MRI BRAIN WITHOUT CONTRAST 06/22/2021 5:53 PM FINDINGS: Brain: Moderate cortical atrophy. Normal slaughter-white differentiation. Nomidline shift or mass effect. No extra-axial fluid collections. Left basal ganglia punctate calcification. Cerebral ventricles: Ventricles and cisterns have normal size and configuration. No hydrocephalus. Pituitary gland and sella: Partially empty sella may be age-appropriate. Paranasal sinuses: Mild left maxillary sinus mucosal thickening. Scattered ethmoid air cell opacification. Remaining imaged paranasal sinuses clear. Mastoid air cells: Clear. Orbital cavities: Orbital cones and apices unremarkable. Conjugate gaze. Bones/joints: Calvarium unremarkable. Soft tissues: Unremarkable. Other findings: No intraparenchymal blood products. Infundibulum midline. IMPRESSION IMPRESSION: 1. Moderate age-appropriate global volume loss. 2. No acute intracranial large vessel infarct. 3. No blood products. 4. Mild sinus disease. 5. Partially empty sella may be age-appropriate, not significantlydifferent than recent MR brain 2021. 6. ASPECTS ([place] Stroke Program Early CT Score) is 10. COMMENTS: THIS REPORT CONTAINS FINDINGS THAT MAY BE CRITICAL TO PATIENT CARE. Theexam findings were verbally communicated by me to Dr. Mejia via telephoneconference at 4:30 PM EST on 04/15/2023. The findings were acknowledged and understood. THIS DOCUMENT HAS BEEN ELECTRONICALLY SIGNED BY MARIKA CRUZ MD Donald Mejia DO RAD CT * SARS-COV-2 (COVID-19), NAAT (04/15/2023 2:45 PM EST) Pathologist [facility] SARS-CoV-2 (COVID-19) Result Negative Negative 04/15/2023 3:36 PM EST LABORATORY [facility] Comment: 2019 Novel Coronavirus not detected. This express test was developed and its performance characteristics determined by [facility]. It has not been cleared or approved [...] was developed and performance characteristics determined by [facility]. The validation of alternate specimen types has not been cleared or approved by the U.S. Food and Drug Administration (FDA). It has been determined that such clearance is not necessary. Upper Respiratory Mid-turbinate nasal swab / Unknown Non-blood Collection / Unknown 04/15/2023 2:45 PM EST 04/15/2023 2:52 PM EST Donald Mejia DO LAB MICRO - GENERAL ORDERABLES LABORATORY [address] [address] * (ABNORMAL) TROPONIN T, HIGH SENSITIVITY (04/15/2023 2:43 PM EST) Troponin T, High Sensitivity 27(H) <=14 ng/L 04/15/2023 3:05 PM EST LABORATORY [facility] Blood Venous blood specimen / Unknown Venipuncture / Unknown 04/15/2023 2:43 PM EST 04/15/2023 2:47 PM EST Donald Mejia DO LAB BLOOD [place] [address] * XR CHEST 2 VIEWS (04/15/2023 1:53 PM EST) Anatomical Region Laterality Modality Chest Digital Radiogra phy 04/15/2023 1:45 PM EST Impressions 04/15/2023 2:20 PM EST IMPRESSION: 1. No acute infiltrate. 2. Hyperlucent lungs, left more lucent than the right similar to previous. If there is any clinical suspicion for pneumothorax, consider expiratory film or obliques. 3. Mild basilar scar. No significant pleural effusion. 4. Prosthetic aortic valve. Bipolar pacer. THIS DOCUMENT HAS BEEN ELECTRONICALLY SIGNED BY MARIKA CRUZ MD Narrative 04/15/2023 2:20 PM EST PROCEDURE INFORMATION: Exam: XR Chest Exam date and time: 04/15/2023 1:45 PM Age: 82 years old Clinical indication: Other: Generalized weakness, leukocytosis. Infectious workup. TECHNIQUE: Imaging protocol: Radiologic exam of the chest. Views: 2 views. COMPARISON: CT CHEST W CONTRAST 03/18/2023 1:17 PM FINDINGS: Tubes, catheters and devices: Multiple EKG leads. Lungs: Hyperlucent lungs. Left lung hyperlucent relative to the right, similar to previous without definite pleural reflection to suggest underlying pneumothorax on the PA. No pneumothorax noted on the lateral projection. Slight blunting bilateral costophrenic sulci in association with basilar scar. Pleural spaces: No significant pleural effusion. Mild pleural scar. Heart/Mediastinum: Normal heart size. Prosthetic aortic valve. Bipolar transvenous pacer. Vasculature: Atherosclerotic arch. Bones/joints: Degenerative thoracic spondylosis. Procedure Note Marika Cruz MD - 04/15/2023 PROCEDURE INFORMATION: Exam: XR Chest Exam date and time: 04/15/2023 1:45 PM Age: 82 years old Clinical indication: Other: Generalized weakness, leukocytosis. Infectious workup. TECHNIQUE: Imaging protocol: Radiologic exam of the chest. Views: 2 views. COMPARISON: CT CHEST W CONTRAST 03/18/2023 1:17 PM FINDINGS: Tubes, catheters and devices: Multiple EKG leads. Lungs: Hyperlucent lungs. Left lung hyperlucent relative to the right,similar to previous without definite pleural reflection to suggest underlying pneumothorax on the PA. No pneumothorax noted on the lateral projection.Slight blunting bilateral costophrenic sulci in association with basilar scar. Pleural spaces: No significant pleural effusion. Mild pleural scar. Heart/Mediastinum: Normal heart size. Prosthetic aortic valve. Bipolar transvenous pacer. Vasculature: Atherosclerotic arch. Bones/joints: Degenerative thoracic spondylosis. IMPRESSION IMPRESSION: 1. No acute infiltrate. 2. Hyperlucent lungs, left more lucent than the right similar toprevious. If there is any clinical suspicion for pneumothorax, consider expiratory filmor obliques. 3. Mild basilar scar. No significant pleural effusion. 4. Prosthetic aortic valve. Bipolar pacer. THIS DOCUMENT HAS BEEN ELECTRONICALLY SIGNED BY MARIKA CRUZ MD Donald Mejia DO RADIOLOGY (RAD GENER AL) * (ABNORMAL) URINALYSIS, REFLEX TO CULTURE (04/15/2023 1:46 PM EST) Color, Urine Yellow Light Yellow, Yellow, Dark Yellow 04/15/2023 2:33 PM EST LABORATORY [facility] Clarity, Urine Clear Clear 04/15/2023 2:33 PM EST LABORATORY [facility] Glucose, Urine Negative Negative mg/dL 04/15/2023 2:33 PM EST LABORATORY [facility] Bilirubin, Urine Negative Negative 04/15/2023 2:33 PM EST LABORATORY [facility] Ketone, Urine Negative Negative mg/dL 04/15/2023 2:33 PM EST LABORATORY [facility] Specific [place], Urine 1.007 1.003 - 1.030 04/15/2023 2:33 PM EST LABORATORY [facility] Blood, Urine Trace(A) Negative 04/15/2023 2:33 PM EST LABORATORY [facility] pH, Urine 6.0 5.0 - 7.5 Units 04/15/2023 2:33 PM EST LABORATORY [facility] Protein, Urine Negative Negative mg/dL 04/15/2023 2:33 PM EST LABORATORY [facility] Urobilinogen, Urine 0.2 0.2, 1.0 mg/dL 04/15/2023 2:33 PM EST LABORATORY [facility] Nitrite, Urine Negative Negative 04/15/2023 2:33 PM EST LABORATORY [facility] Esterase, Urine Negative Negative 04/15/2023 2:33 PM EST LABORATORY [facility] RBC, Urine 3-5(A) 0 - 2 /HPF 04/15/2023 2:33 PM EST LABORATORY [facility] WBC, Urine 0-2 0 - 2 /HPF 04/15/2023 2:33 PM EST LABORATORY [facility] Bacteria, Urine 0-25 0 - 25 /HPF 04/15/2023 2:33 PM EST LABORATORY [facility] Hyaline, Cast, Urine 1-4(A) None /LPF 04/15/2023 2:33 PM EST LABORATORY [facility] Culture, Urine 04/15/2023 2:33 PM EST LABORATORY [facility] Comment:Culture not indicate d by urinalysis results Urine Urine specimen obtained by clean catch procedure / Unknown Non-blood Collection / Unknown 04/15/2023 1:46 PM EST 04/15/2023 1:52 PM EST Donald Mejia LAB URINE ORDERABLES Performing Organization Address City/[facility] [address]/ZIP Co de Phone Number LABORATORY [address] [address] * URINALYSIS, REFLEX TO CULTURE (CUP ONLY) (04/15/2023 1:46 PM EST) Urinalysis, Reflex to Culture Specimen Specimen collected and received 04/15/2023 3:02 PM EST LABORATORY [facility] Urine Urine specimen obtained by clean catch procedure / Unknown Non-blood Collection / Unknown 04/15/2023 1:46 PM EST 04/15/2023 1:52 PM EST Donald Song Advise Only LAB URINE ORDERABLES Performing Organization Address City/[facility] [address]/ZIP Co de Phone Number LABORATORY [address] [address] * CULTURE, URINE, QUANTITATIVE (04/15/2023 1:46 PM EST) Culture Growth No significant growth 04/16/2023 1:51 PM EST LABORATORY [facility] Urine Urine specimen obtained by clean catch procedure / Unknown Non-blood Collection / Unknown 04/15/2023 1:46 PM EST 04/15/2023 1:52 PM EST Donald Nohemi Roberto DO LAB MICRO - GENERAL ORDERABLES Performing Organization Address City/[facility] [address]/ZIP Co de Phone Number LABORATORY [facility] [address] [place] [address] * FOLIC ACID (04/15/2023 1:16 PM EST) Folic Acid 16.9 >4.5 ng/mL 04/16/2023 12:03 AM EST LABORATORY [facility] Blood Venous blood specimen / Unknown Venipuncture / Unknown 04/15/2023 1:16 PM EST 04/15/2023 1:20 PM EST Donald Nohemi Roberto DO LAB BLOOD ORDERABLES Performing Organization Address [facility] [address]/[facility] Co de Phone Number LABORATORY [place] [address] [place] [address] * (ABNORMAL) VITAMIN B12 (04/15/2023 1:16 PM EST) Vitamin B12 1,798(H) 232 - 1,245 pg/mL 04/16/2023 12:03 AM EST LABORATORY [facility] Blood Venous blood specimen / Unknown Venipuncture / Unknown 04/15/2023 1:16 PM EST 04/15/2023 1:20 PM EST Donald Song Advise Only LAB BLOOD ORDERABLES Performing Organization Address City/[facility] [address]/ZIP Co de Phone Number LABORATORY [facility] [address] [place] [address] * (ABNORMAL) BNP, NT-PRO (04/15/2023 1:16 PM EST) BNP, NT-Pro 748(H) <300 pg/mL 04/15/2023 11:04 PM EST LABORATORY [facility] Blood Venous blood specimen / Unknown Venipuncture / Unknown 04/15/2023 1:16 PM EST 04/15/2023 1:20 PM EST Narrative LABORATORY [facility] - 04/15/2023 11:04 PM EST Exclude Heart Failure: <300 pg/mL Diagnose Heart Failure: Age <50 yr: >450 pg/mL 50-75 yr: >900 pg/mL >75 yr: >1800 pg/mL GFR is 30-59 mL/min: >1200 pg/mL or Age-adjusted values GFR <30 mL/min: do not use, not reliable Prognostic threshold: 1000 pg/mL Donald Nohemi Ellisonvean LAB BLOOD ORDERABLES Performing Organization Address City/[facility] [address]/ZIP Co de Phone Number LABORATORY [facility] [address] [place] [address] * PHOSPHORUS (04/15/2023 1:16 PM EST) Phosphorus 3.4 2.5 - 4.8 mg/dL 04/15/2023 2:42 PM EST LABORATORY [facility] Blood Venous blood specimen / Unknown Venipuncture / Unknown 04/15/2023 1:16 PM EST 04/15/2023 1:20 PM EST Donald Nohemi Ellisonevan LAB BLOOD ORDERABLES Performing Organization Address City/[facility] [address]/ZIP Co de Phone Number LABORATORY [address] [phone] * (ABNORMAL) DIFFERENTIAL, AUTOMATED (04/15/2023 1:16 PM EST) WBC 20.72(H) 4.00 - 10.80 K/uL 04/15/2023 1:24 PM EST LABORATORY GL Neutrophils % 88.8(H) 40.0 - 75.0 % 04/15/2023 1:24 PM EST LABORATORY GL Lymphocytes % 4.2(L) 18.0 - 42.0 % 04/15/2023 1:24 PM EST LABORATORY GL Monocytes % 5.0 1.0 - 11.0 % 04/15/2023 1:24 PM EST LABORATORY GL Eosinophils % 0.5 0.0 - 6.0 % 04/15/2023 1:24 PM EST LABORATORY GL Basophils % 0.4 0.0 - 2.0 % 04/15/2023 1:24 PM EST LABORATORY GL Immature Granulocytes % 1.1 0.0 - 2.0 % 04/15/2023 1:24 PM EST LABORATORY GL Absolute Neutrophils 18.41(H) 1.80 - 7.70 K/uL 04/15/2023 1:24 PM EST LABORATORY GL Absolute Lymphocytes 0.86(L) 1.00 - 4.80 K/ul 04/15/2023 1:24 PM EST LABORATORY GL Absolute Monocytes 1.04 0.00 - 1.10 K/uL 04/15/2023 1:24 PM EST LABORATORY GL Absolute Eosinophils 0.10 0.00 - 0.70 K/uL 04/15/2023 1:24 PM EST LABORATORY GL Absolute Basophils 0.09 0.00 - 0.20 K/uL 04/15/2023 1:24 PM EST LABORATORY GL Absolute Immature Granulocytes 0.22(H) 0.00 - 0.20 K/uL 04/15/2023 1:24 PM EST LABORATORY [facility] Blood Venous blood specimen / Unknown Venipuncture / Unknown 04/15/2023 1:16 PM EST 04/15/2023 1:20 PM EST Donald Mejia DO LAB BLOOD ORDERABLES LABORATORY [address] [address] * (ABNORMAL) CBC (04/15/2023 1:16 PM EST) WBC 20.72(H) 4.00 - 10.80 K/uL 04/15/2023 1:24 PM EST LABORATORY [facility] RBC 3.97 3.85 - 5.15 M/uL 04/15/2023 1:24 PM EST LABORATORY [facility] HGB 12.4 12.0 - 15.3 g/dL 04/15/2023 1:24 PM EST LABORATORY GL HCT 38.5 36.0 - 45.2 % 04/15/2023 1:24 PM EST LABORATORY GL MCV 97.0 81.5 - 97.5 fL 04/15/2023 1:24 PM EST LABORATORY [facility] MCH 31.2 27.0 - 34.0 pg 04/15/2023 1:24 PM EST LABORATORY [facility] MCHC 32.2 32.0 - 36.0 g/dL 04/15/2023 1:24 PM EST LABORATORY [facility] RDW 12.6 11.5 - 15.5 % 04/15/2023 1:24 PM EST LABORATORY [facility] PLT 391 140 - 400 K/uL 04/15/2023 1:24 PM EST LABORATORY [facility] MPV 9.0 6.6 - 11.1 fL 04/15/2023 1:24 PM EST LABORATORY [facility] nRBCs 0 <=0 /100 WBCs 04/15/2023 1:24 PM EST LABORATORY [facility] Blood Venous blood specimen / Unknown Venipuncture / Unknown 04/15/2023 1:16 PM EST 04/15/2023 1:20 PM EST Donald Mejia [employer] LAB BLOOD ORDERABLES Performing Organization Address [facility] [address]/[facility] Co de Phone Number LABORATORY [address] [address] * (ABNORMAL) PROCALCITONIN (04/15/2023 1:16 PM EST) Procalcitonin 0.11(H) <0.10 ng/mL 04/15/2023 1:54 PM EST LABORATORY [facility] Blood Venous blood specimen / Unknown Venipuncture / Unknown 04/15/2023 1:16 PM EST 04/15/2023 1:20 PM EST Narrative LABORATORY [facility] - 04/15/2023 1:54 PM EST Less than 0.5 ng/mL: Low risk for progression to sepsis. Review patients condition for localized infections. 0.5 to 2.0 ng/mL: Intermediate risk for progresion to sepsis. Review underlying conditions. Recommend repeat PCT after 6 hours has elapsed. Greater than 2.0 ng/mL: high risk for progression to sepsis unless other causes are known. Donald Mejia [employer] LAB BLOOD ORDERABLES Performing Organization Address [facility] [address]/[facility] Co de Phone Number LABORATORY [address] [address] * (ABNORMAL) COMPREHENSIVE METABOLIC PANEL (04/15/2023 1:16 PM EST) Pathologist [facility] BUN 12 6 - 20 mg/dL 04/15/2023 2:07 PM EST LABORATORY [facility] Creatinine 0.8 0.5 - 1.0 mg/dL 04/15/2023 2:07 PM EST LABORATORY [facility] Estimated Glomerular Filtration Rate 76 >=60 mL/min 04/15/2023 2:07 PM EST LABORATORY [facility] Comment:eGFR is calculated b ased on the CKD-EPI 2020 equation Sodium 135 135 - 146 mmol/L 04/15/2023 2:07 PM EST LABORATORY [facility] Potassium 3.6 3.5 - 5.1 mmol/L 04/15/2023 2:07 PM EST LABORATORY [facility] Chloride 97(L) 98 - 107 mmol/L 04/15/2023 2:07 PM EST LABORATORY [facility] CO2 21(L) 22 - 32 mmol/L 04/15/2023 2:07 PM EST LABORATORY [facility] Anion Gap 17(H) 7 - 15 mmol/L 04/15/2023 2:07 PM EST LABORATORY [facility] Glucose 123(H) 70 - 120 mg/dL 04/15/2023 2:07 PM EST LABORATORY [facility] Albumin 3.0(L) 3.8 - 5.0 g/dL 04/15/2023 2:07 PM EST LABORATORY [facility] AST 47(H) 10 - 35 U/L 04/15/2023 2:07 PM EST LABORATORY [facility] Comment:Result may be falsel y elevated due to hemolysis. Alkaline Phosphatase 47 35 - 130 U/L 04/15/2023 2:07 PM EST LABORATORY [facility] Bilirubin, Total 0.7 <=1.2 mg/dL 04/15/2023 2:07 PM EST LABORATORY [facility] Calcium 8.6 8.4 - 10.2 mg/dL 04/15/2023 2:07 PM EST LABORATORY [facility] Protein 6.2 6.0 - 8.3 g/dL 04/15/2023 2:07 PM EST LABORATORY [facility] ALT 34 10 - 35 U/L 04/15/2023 2:07 PM EST LABORATORY [facility] Blood Venous blood specimen / Unknown Venipuncture / Unknown 04/15/2023 1:16 PM EST 04/15/2023 1:20 PM EST Donald Song Roberto [employer]OR[employer] LAB BLOOD ORDERABLES Performing Organization Address City/[facility] [address]/ZIP Co de Phone Number LABORATORY [address] [address] * (ABNORMAL) BNP, NT-PRO (04/15/2023 1:16 PM EST) BNP, NT-Pro 866(H) <300 pg/mL 04/15/2023 1:54 PM EST LABORATORY [facility] Blood Venous blood specimen / Unknown Venipuncture / Unknown 04/15/2023 1:16 PM EST 04/15/2023 1:20 PM EST Narrative LABORATORY [facility] - 04/15/2023 1:54 PM EST Exclude Heart Failure: <300 pg/mL Diagnose Heart Failure: Age <50 yr: >450 pg/mL 50-75 yr: >900 pg/mL >75 yr: >1800 pg/mL GFR is 30-59 mL/min: >1200 pg/mL or Age-adjusted values GFR <30 mL/min: do not use, not reliable Prognostic threshold: 1000 pg/mL Donald Song [employer] LAB BLOOD ORDERABLES Performing Organization Address [facility] de Phone Number LABORATORY [address] [address] * (ABNORMAL) TROPONIN T, HIGH SENSITIVITY (04/15/2023 1:16 PM EST) Troponin T, High Sensitivity 29(H) <=14 ng/L 04/15/2023 1:42 PM EST LABORATORY [facility] Blood Venous blood specimen / Unknown Venipuncture / Unknown 04/15/2023 1:16 PM EST 04/15/2023 1:20 PM EST Donald Song Roberto ASTOR[employer] LAB BLOOD ORDERABLES Performing Organization Address City/[facility] [address]/ZIP Co de Phone Number LABORATORY [address] [address] * TSH WITH FREE T4 IF INDICATED (04/15/2023 1:16 PM EST) TSH 3.93 0.27 - 4.20 uIU/mL 04/15/2023 1:54 PM EST LABORATORY [facility] Blood Venous blood specimen / Unknown Venipuncture / Unknown 04/15/2023 1:16 PM EST 04/15/2023 1:20 PM EST Donald D [employer] DO LAB BLOOD ORDERABLES Performing Organization Address City/[facility] [address]/ZIP Co de Phone Number LABORATORY [address] [address] * LACTATE WITH REFLEX IF ABNORMAL (04/15/2023 1:16 PM EST) Pathologist [facility] Lactate 1.9 0.4 - 2.0 mmol/L 04/15/2023 1:36 PM EST LABORATORY [facility] Blood Venous blood specimen / Unknown Venipuncture / Unknown 04/15/2023 1:16 PM EST 04/15/2023 1:20 PM EST Donald [employer] DO LAB BLOOD ORDERABLES Performing Organization Address City/[facility] [address]/[facility] Co de Phone Number LABORATORY [address] [address] * EXTRA LIGHT BLUE TOP (04/15/2023 1:16 PM EST) Blood Venous blood specimen / Unknown Venipuncture / Unknown 04/15/2023 1:16 PM EST 04/15/2023 1:20 PM EST [employer] DO LAB BLOOD ORDERABLES Performing Organization Address City/[facility] [address]/[facility] Co de Phone Number LABORATORY [address] [address] * MAGNESIUM (04/15/2023 1:16 PM EST) Magnesium 1.7 1.5 - 2.6 mg/dL 04/15/2023 2:07 PM EST LABORATORY [facility] Blood Venous blood specimen / Unknown Venipuncture / Unknown 04/15/2023 1:16 PM EST 04/15/2023 1:20 PM EST Donald Mejia DO [place] [address] documented in this encounter Visit Diagnoses Diagnosis Sepsis (HCC)- Primary Unspecified septicemia Generalized weakness Other malaise and fatigue Leukocytosis, unspecified type Chest pain Chest pain, unspecified Hypothyroidism Unspecified hypothyroidism HTN, goal below 140/90 Unspecified essential hypertension Paroxysmal atrial fibrillation (HCC) Atrial fibrillation 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) Oropharyngeal dysphagia Dysphagia, oropharyngeal phase Anorexia Generalized weakness Other malaise and fatigue Leukocytosis Leukocytosis, unspecified Malnutrition of moderate degree (HCC) Malnutrition of moderate degree documented in this encounter Administered Medications Inactive Administered Medications - up to 3 most recent administrations Medication Order MAR Action Action Date Dose Rate Site Acetaminophen (Tylenol) tab 650 mg 650 mg, Oral, Q6H PRN Pain, Mild, Fever >38C(100.5F), Starting on Sat04/15/23 at 1614, Until Sat04/17/23 at 1804 Given 04/16/2023 7:30 PM EST 650 mg Given 04/15/2023 10:47 PM EST 650 mg aspirin chew tab 81 mg 81 mg, Oral, Daily(AM), First dose on Sat04/16/23 at 0900, Until Discontinued Given 04/17/2023 9:18 AM EST 81 mg Given 04/16/2023 8:44 AM EST 81 mg atorvaSTATin (Lipitor) tab 20 mg 20 mg, Oral, Daily(AM), First dose on Sat04/16/23 at 0900, Until Discontinued Given 04/17/2023 9:19 AM EST 20 mg Given 04/16/2023 8:44 AM EST 20 mg Docusate Sodium (Colace) cap 100 mg 100 mg, Oral, BID (.AM/PM), First dose on Sat04/16/23 at 1900, Until Discontinued, For oral administration ONLY, if route of administration is other than oral and alternative product must be ordered. Given 04/17/2023 9:18 AM EST 100 mg Given 04/16/2023 7:28 PM EST 100 mg dorzolamide-timolol (Cosopt Ocumeter Plus) ophthalmic solution 1 Drop 1 Drop, Both eyes, BID (.AM/PM), First dose on Sat04/15/23 at 2100, Until Discontinued Given 04/17/2023 10:17 AM EST 1 Drop Given 04/16/2023 9:06 PM EST 1 Drop Given 04/16/2023 8:44 AM EST 1 Drop Drug Level Check - Vancomycin Random ONCE - TIMED LAB, 1 dose, First dose on Sat04/19/23 at 0600, STAT, Lance as Order Check Addressed once lab level is drawn. If antibiotic time changes, please contact the Pharmacy to adjust Lab and Drug Level Check times. Famotidine (Pepcid) tab 10 mg 10 mg, Oral, BID (.AM/PM), First dose on Sat04/15/23 at 2100, Until Discontinued Given 04/17/2023 9:18 AM EST 10 mg Given 04/16/2023 9:06 PM EST 10 mg Given 04/16/2023 8:44 AM EST 10 mg isolyte-S pH 7.4 infusion Intravenous, at 75 mL/hr, Plasma-LYTE 148, isolyte-S, and isolyte-S pH 7.4 are considered equivalent - including for MAR barcode scanning., CONTINUOUS, Starting on Sat04/15/23 at 1700, Until Sat04/16/23 at 0259 Restarted 04/16/2023 3:30 AM EST 75 mL/hr New Bag 04/15/2023 6:34 PM EST 75 mL/hr levothyroxine (Levoxyl) tab 100 mcg 100 mcg, Oral, Daily(AM), First dose on Sat04/16/23 at 0630, Until Discontinued Given 04/17/2023 5:28 AM EST 100 mcg Given 04/16/2023 5:52 AM EST 100 mcg LiquaCel 30 mL, Oral, ONCE, 1 dose, On Sat04/15/23 at 1615 Given 04/15/2023 4:37 PM EST 30 mL magnesium sulfate 1 g in d5w 100mL LOCKED DOSE 1 g, IV Piggyback, ONCE, 1 dose, On Sat04/15/23 at 1515, Administer over 60 Minutes New Bag 04/15/2023 3:13 PM EST 1 g 100 mL/hr mirtazapine ODT (Remeron Soltab) tab 15 mg 15 mg, Oral, HS, First dose on Sat04/15/23 at 2200, Until Discontinued Given 04/16/2023 9:06 PM EST 15 mg Given 04/15/2023 10:13 PM EST 15 mg NSS 0.9% 500 mL bolus infusion Intravenous, at 500 mL/hr Administer over 60 Minutes, Wide open, This infusion may be completed in less than 1 hour, since it will be a wide open rate, ONCE, 1 dose, On Sat04/15/23 at 1330 New Bag 04/15/2023 1:57 PM EST 500 mL 500 mL/hr NSS 0.9% 500 mL bolus infusion Intravenous, at 500 mL/hr Administer over 60 Minutes, Wide open, This infusion may be completed in less than 1 hour, since it will be a wide open rate, ONCE, 1 dose, On Sat04/15/23 at 1615 New Bag 04/15/2023 4:16 PM EST 500 mL 1200 mL/hr Piperacillin-Tazobactam (Zosyn) 4.5 g in 100 mL NSS ivpb (FOUR hour infusion) IV Piggyback, 4.5 g, Q8HNOW, 15 doses, First dose on Sat04/15/23 at 2100, Last dose on Sat04/20/23 at 1300, Administer over 4 Hours, at 27.5 mL/hr New 04/17/2023 5:36 AM EST 4.5 g 27.5 mL/hr New Bag 04/16/2023 9:09 PM EST 4.5 g 27.5 mL/hr New Bag 04/16/2023 1:35 PM EST 4.5 g 27.5 mL/hr Piperacillin-Tazobactam (Zosyn) 4.5 g in 100 mL NSS ivpb (HALF hour infusion) IV Piggyback, 4.5 g, ONCE, 1 dose, On Sat04/15/23 at 1615, Administer over 30 Minutes New 04/15/2023 4:13 PM EST 4.5 g 220 mL/hr Polyethylene Glycol 3350 (Miralax) oral powder 17 g 17 g (1 Packet), Oral, Daily(AM), First dose on Sat04/16/23 at 1900, Until Discontinued, Mix in 8 oz of water, juice, soda, coffee, or tea. Given 04/17/2023 9:18 AM EST 17 g Given 04/16/2023 7:28 PM EST 17 g potassium chloride ER tab 40 mEq 40 mEq, Oral, ONCE, On Sat04/16/23 at 0815, For 1 dose, This med should NOT be Crushed or Chewed Given 04/16/2023 8:47 AM EST 40 mEq sodium chloride 0.9 % flush peripheral tiffanie 3 mL 3 mL, IV Push, QSHIFT, First dose on Sat04/15/23 at 1700, Until Discontinued, Do not flush if lock, PICC, or central line not in place; IV infusing or unable to flush. Given 04/17/2023 8:00 AM EST 3 mL Given 04/16/2023 4:00 PM EST 3 mL Given 04/16/2023 8:00 AM EST 3 mL Vancomycin (Vancocin) 1000 mg in NSS 250 mL ivpb LOCKED DOSE 1,000 mg, IV Piggyback, Q24H, First dose on Sat04/17/23 at 1600, Until Discontinued Vancomycin (Vancocin) 1250 mg in NSS 250 mL ivpb 1,250 mg, IV Piggyback, ONCE, 1 dose, On Sat04/15/23 at 1630 New Bag 04/15/2023 5:15 PM EST 1,250 mg 166.67 mL/hr vancomycin (Vancocin) 750 mg in NSS 100 mL ivpb 750 mg, IV Piggyback, Q24H, First dose on Sat04/16/23 at 1700, Until Discontinued New Bag 04/16/2023 4:20 PM EST 750 mg 110 mL/hr vancomycin per pharmacy order Routine, NURSING: THIS IS TO REMIND YOU THAT PHARMACY WILL BE PLACING ORDERS FOR THIS MEDICATION --- NO DOCUMENTATION OF ADMIN OR ADDRESSED IS REQUIRED ON THIS ORDER documented in this encounter Active and Recently Administered Medications Times are shown in EST. Scheduled Medication Order 04/15/2023 04/16/2023 04/17/2023 aspirin chew tab 81 mg 81 mg, Oral, Daily(AM), First dose on Sat04/16/23 at 0900, Until Discontinued 0844 (Given - Provider: Beatrice Abraham RN) 0918 (Given - Provider: Cody Castillo RN) atorvaSTATin (Lipitor) tab 20 mg 20 mg, Oral, Daily(AM), First dose on Sat04/16/23 at 0900, Until Discontinued 08 (Given - Provider: Beatrice Abraham RN) 918 (Given - Provider: Cody Castillo RN) Docusate Sodium (Colace) cap 100 mg 100 mg, Oral, BID (.AM/PM), First dose on Sat04/16/23 at 1900, Until Discontinued, For oral administration ONLY, if route of administration is other than oral and alternative product must be ordered. 1927 (Given - Provider: Beatrice Abraham RN) 917 (Given - Provider: Cody Castillo RN) dorzolamide-timolol (Cosopt Ocumeter Plus) ophthalmic solution 1 Drop 1 Drop, Both eyes, BID (.AM/PM), First dose on Sat04/15/23 at 2100, Until Discontinued 2212 (Given - Provider: Cathleen Sky RN) 843 (Given - Provider: Beatrice Abraham RN)2105 (Given - Provider: Beryl Rob LPN) 101 (Given - Provider: Beryl Lozoya RN) Drug Level Check - Vancomycin Random ONCE - TIMED LAB, 1 dose, First dose on Sat04/17/23 at 0600, STAT, Lance as Order Check Addressed once lab level is drawn. If antibiotic time changes, please contact the Pharmacy to adjust Lab and Drug Level Check times. 0600 (Due) Drug Level Check - Vancomycin Random ONCE - TIMED LAB, 1 dose, First dose on Sat04/19/23 at 0600, STAT, Lance as Order Check Addressed once lab level is drawn. If antibiotic time changes, please contact the Pharmacy to adjust Lab and Drug Level Check times. Famotidine (Pepcid) tab 10 mg 10 mg, Oral, BID (.AM/PM), First dose on Sat04/15/23 at 2100, Until Discontinued 2212 (Given - Provider: Cathleen Sky RN) 08 (Given - Provider: Beatrice Abraham RN)2105 (Given - Provider: Beryl Rob LPN) 09 (Given - Provider: Cody Castillo RN) levothyroxine (Levoxyl) tab 100 mcg 100 mcg, Oral, Daily(AM), First dose on Sat04/16/23 at 0630, Until Discontinued 0552 (Given - Provider: Cathleen Sky RN) 0528 (Given - Provider: Beryl Rob LPN) LiquaCel (COMPLETED) 30 mL, Oral, ONCE, 1 dose, On Sat04/15/23 at 1615 1637 (Given - Provider: Odilon Olsen RN) magnesium sulfate 1 g in d5w 100mL LOCKED DOSE (COMPLETED) 1 g, IV Piggyback, ONCE, 1 dose, On Sat04/15/23 at 1515, Administer over 60 Minutes 1513 (New Bag - Provider: Zenobia Mishra RN) mirtazapine ODT (Remeron Soltab) tab 15 mg 15 mg, Oral, HS, First dose on Sat04/15/23 at 2200, Until Discontinued 2212 (Given - Provider: Cathleen Sky RN) 2106 (Given - Provider: Beryl Rob LPN) NSS 0.9% 500 mL bolus infusion (COMPLETED) Intravenous, at 500 mL/hr Administer over 60 Minutes, Wide open, This infusion may be completed in less than 1 hour, since it will be a wide open rate, ONCE, 1 dose, On Sat04/15/23 at 1330 1357 (New Bag - Provider: Cayetano Jacques RN)1509 (Stopped - Provider: Zenobia Mishra RN) NSS 0.9% 500 mL bolus infusion (COMPLETED) Intravenous, at 500 mL/hr Administer over 60 Minutes, Wide open, This infusion may be completed in less than 1 hour, since it will be a wide open rate, ONCE, 1 dose, On Sat04/15/23 at 1615 1616 (New Bag - Provider: Odilon Olsen RN) Piperacillin-Tazobactam (Zosyn) 4.5 g in 100 mL NSS ivpb (FOUR hour infusion) IV Piggyback, 4.5 g, Q8HNOW, 15 doses, First dose on Sat04/15/23 at 2100, Last dose on Sat04/20/23 at 1300, Administer over 4 Hours, at 27.5 mL/hr 2222 (New Bag - Provider: Cathleen Sky RN) 0224 (Stopped - Provider: Cathleen Sky RN)0423 (New Bag - Provider: Cathleen Sky RN)1335 (New Bag - Provider: Beatrice Abraham RN)2109 (New Bag - Provider: Beryl Rob LPN) 0536 (New Bag - Provider: Beryl Rob LPN)1300 (Due)1804 (Due: Stopped) Piperacillin-Tazobactam (Zosyn) 4.5 g in 100 mL NSS ivpb (HALF hour infusion) (COMPLETED) IV Piggyback, 4.5 g, ONCE, 1 dose, On Sat04/15/23 at 1615, Administer over 30 Minutes 1613 (New Bag - Provider: Odilon Olsen RN) Polyethylene Glycol 3350 (Miralax) oral powder 17 g 17 g (1 Packet), Oral, Daily(AM), First dose on Sat04/16/23 at 1900, Until Discontinued, Mix in 8 oz of water, juice, soda, coffee, or tea. 1928 (Given - Provider: Beatrice Abraham RN) 0918 (Given - Provider: Cody Castillo RN) potassium chloride ER tab 40 mEq (COMPLETED) 40 mEq, Oral, ONCE, On Sat04/16/23 at 0815, For 1 dose, This med should NOT be Crushed or Chewed 0847 (Given - Provider: Beatrice Abraham RN) sodium chloride 0.9 % flush peripheral tiffanie 3 mL 3 mL, IV Push, QSHIFT, First dose on Sat04/15/23 at 1700, Until Discontinued, Do not flush if lock, PICC, or central line not in place; IV infusing or unable to flush. 1715 (Given - Provider: Sulema Barnes, DONALD)2220 (Given - Provider: Cathleen Sky, DONALD) 0800 (Given - Provider: Beatrice Abraham, RN)1600 (Given - Provider: Beatrice Abraham RN) 0000 (Not Given - Provider: Beryl Rob LPN - Reason: Parameter(s) Not Met - Comment: fluids infusing at this time)0800 (Given - Provider: Cody Castillo RN) Vancomycin (Vancocin) 1000 mg in NSS 250 mL ivpb LOCKED DOSE 1,000 mg, IV Piggyback, Q24H, First dose on Sat04/17/23 at 1600, Until Discontinued Vancomycin (Vancocin) 1250 mg in NSS 250 mL ivpb (COMPLETED) 1,250 mg, IV Piggyback, ONCE, 1 dose, On Sat04/15/23 at 1630 1715 (New Bag - Provider: Sulema Barnes RN) vancomycin (Vancocin) 750 mg in NSS 100 mL ivpb (CANCELED) 750 mg, IV Piggyback, Q24H, First dose on Sat04/16/23 at 1700, Until Discontinued 1620 (New Bag - Provider: Beatrice Abraham RN) 0911 (Stopped - Provider: Beryl Lozoya, DONALD) vancomycin per pharmacy order Routine, NURSING: THIS IS TO REMIND YOU THAT PHARMACY WILL BE PLACING ORDERS FOR THIS MEDICATION --- NO DOCUMENTATION OF ADMIN OR ADDRESSED IS REQUIRED ON THIS ORDER Continuous Medication Order 04/15/2023 04/16/2023 04/17/2023 isolyte-S pH 7.4 infusion () Intravenous, at 75 mL/hr, Plasma-LYTE 148, isolyte-S, and isolyte-S pH 7.4 are considered equivalent - including for MAR barcode scanning., CONTINUOUS, Starting on Sat04/15/23 at 1700, Until Sat04/16/23 at 0259 1834 (New Bag - Provider: Magui Hernandez RN) 0326 (Paused - Provider: Cathleen Sky RN)0330 (Restarted - Provider: Cathleen Sky RN)0420 (Stopped - Provider: Cathleen Sky RN)0423 (Stopped - Provider: Cathleen Sky RN) PRN Medication Order 04/15/2023 04/16/2023 04/17/2023 Acetaminophen (Tylenol) tab 650 mg 650 mg, Oral, Q6H PRN Pain, Mild, Fever >38C(100.5F), Starting on Sat04/15/23 at 1614, Until Sat04/17/23 at 1804 2247 (Given - Provider: Cathleen Sky RN) 1930 (Given - Provider: Beryl Rob LPN) Docusate Sodium (Colace) cap 100 mg 100 mg, Oral, DAILY PRN Constipation, Starting on Sat04/15/23 at 1618, Until Sat04/17/23 at 1804, For oral administration ONLY, if route of administration is other than oral and alternative product must be ordered. guaiFENesin-dm (Robitussin DM) oral syrup 10 mL 10 mL, Oral, Q4H PRN Cough, Starting on Sat04/15/23 at 1619, Until Sat04/17/23 at 1804 melatonin tab 3 mg 3 mg, Oral, HS PRN Insomnia, Starting on Sat04/15/23 at 1618, Until Sat04/17/23 at 1804 ondansetron (Zofran) inj 4 mg 4 mg, IV Push, Q6H PRN Nausea, Starting on Sat04/15/23 at 1618, Until Sat04/17/23 at 1804 sodium chloride 0.9 % flush/inj 3 mL 3 mL, IV Push, PRN Other, Line Patency, Starting on Sat04/15/23 at 1616, Until Sat04/17/23 at 1804, Do not flush if lock, PICC, or central line not in place, IV infusing or unable to flush documented in this encounter Advance Directives Latest [...] the patient have Health Care Power of Waste Water Or Water Plant Operator? No Full Code 09/25/2020 6:44 PM [...] the patient have Health Care Power of Waste Water Or Water Plant Operator? No Care Teams Stamps Or Coins Salesperson Relationship Specialty Start Date End Date Kalen Ribeiro MD [address] [place] [address] PCP - General 12/15/01 documented as of this encounter
--- OUTSIDE RECORDS SUMMARY | 2023-06-01 11:12 | External Medical Summary ---
Author Name Unknown Address Unknown Organization K01:[facility] [place] - [address] [place] [address] Laboratory Report Ordering Provider Test Date Status CLIFTON NARAYANAN 04/16/2023 12:43:19 Final Observation Date Value Abnormality Reference (Units ) Status Methicillin resistant Staphylococcus aureus (MRSA) DNA [Presence] in Nose by GAMA with probe detection 04/16/2023 12:43:19 Negative Negative Final No Methicillin resistant Sta phylococcus aureus detected by PCR (amplified probe). Performing Location [facility]AT[facility] - [address] [place] [place] [address]
--- OUTSIDE RECORDS SUMMARY | 2023-06-01 11:13 | External Medical Summary | Summary of Care ---
Author Name Unknown Organization [facility] Address [address] [place] [address] Phone [phone] Care Team Providers Care Dry Cell Assembly Supervisor Name Role Phone Ottoniel Kenyon MD Primary Care Provider [phone] Reason for Visit * Reason Onset Date Comments Order Request 04/09/2023 Chest xray Encounter Details Date Type Department Care Team (Late st Contact Info) Description 04/09/2023 Telephone [facility] [address] [place] [address] Ottoniel Kenyon MD [address] [place] [address] Order Request (Chest xray) Allergies Active Allergy Reactions Criticality Noted Date Comments Heparin 10/07/2020 Concern for HIT documented as of this encounter (statuses as of 04/09/2023) Medications Medication Sig Dispensed Refills Start Date [...] mouth daily. 30 Tab 3 10/05/2020 Active Amoxicillin 500 MG Oral Capsule (Amoxil)Indications :S/P TAVR (transcatheter aortic valve replacement) Take 4 Caps by mouth once as needed (prior to dental work) for up to 1 dose. Take 4 capsules 1 hour prior to any dental work 4 Cap 4 11/10/2020 Active Additional Information Patient not taking.Reported on 03/25/2023 Biotin 5 MG Oral Capsule Take 2 Capsules by mouth in the morning. 0 Active Rocklatan 0.02-0.005 % Ophthalmic Solution (Netarsudil-Latanop marcus) Instill into eye . 0 Active Furosemide 20 MG Oral Tablet (Lasix) TAKE ONE TABLET BY MOUTH DAILY 90 Tablet 3 04/13/2022 Active Levothyroxine Sodium 100 MCG Oral Tablet (Levoxyl)Indication s:Hypothyroidism, unspecified type Take 1 Tablet by mouth in the morning. (at least 30 min prior to breakfast or other meds). 90 Tablet 3 06/12/2022 Active Pantoprazole Sodium 40 MG Oral Tablet Delayed Release (Protonix) TAKE 1 TABLET BY MOUTH ONCE DAILY 90 Tablet 1 12/17/2022 Active Additional Information Patient not taking.Reported on 03/25/2023 Famotidine 20 MG Oral Tablet (Pepcid) Take 1 Tablet by mouth in the morning and 1 Tablet before bedtime. 60 Tablet 11 12/25/2022 Active Atorvastatin Calcium 20 MG Oral Tablet (Lipitor)Indication s:Dyslipidemia, goal LDL below 70 TAKE 1 TABLET BY MOUTH ONCE DAILY 90 Tablet 3 01/03/2023 Active Lisinopril 2.5 MG Oral Tablet (Prinivil) Take 1 Tablet by mouth in the morning. 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 07/14/2021 Age-related osteoporosis wit hout current pathological fracture 07/14/2021 History of pulmonary embolism 06/08/2021 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 1 04/12/2020 History of pericarditis 10/02/2020 Iron deficiency anemia 10/02/2020 S/P TAVR (transcatheter aortic valve replacement ) 09/25/2020 Pericardial effusion 09/20/2020 Primary open-angle glaucoma, bilateral, moderate stage 03/16/2019 Gastroesophageal reflux disease without esophagi tis 03/16/2019 Vitamin D deficiency 06/05/2018 History of adenomatous polyp of colon 08/01/2017 HTN, goal below 140/90 08/01/2017 Hypothyroidism 01/15/2015 Dyslipidemia, goal LDL below 130 12/26/2010 documented as of this encounter (statuses as of 04/09/2023) Resolved Problems Problem Noted Date Diagnosed Date Resolved Date Primary open angle glaucoma (POAG) 03/29/2022 12/25/2022 Protein-calorie malnutrition 10/24/2020 06/08/2021 Pleural effusion 10/13/2020 12/08/2020 Overview: Left Acute pulmonary embolism 10/09/2020 Heparin induced thrombocytopenia 10/05/2020 12/08/2020 Atrial fibrillation with RVR 10/04/2020 10/05/2020 Generalized weakness 10/02/2020 021 Symptomatic anemia 10/02/2020 ST elevation myocardial infarction [...] as of this encounter (statuses as of 04/09/2023) Immunizations Name Administration Dates Next Due COVID-19 [...] Addendum Note - Ottoniel Kenyon MD - 04/09/2023 10:31 AM ESTAddended by: OTTONIEL KENYON on: 04/09/2023 10:31 AM Modules accepted: Orders * Telephone Encounter - Ottoniel Kenyon MD - 04/09/2023 10:30 AM EST ordered * Telephone Encounter - Adriane Adkins CCMA - 04/09/2023 8:28 AM EST Please advise as below. Thank you. * Telephone Encounter - Lizy Nicole OSA - 04/09/2023 7:23 AM EST Marie needs an order for a 2 view chest xray to be completed prior to her upcoming MRI to check herpacemaker. Thank you documented in this encounter Plan of Treatment Upcoming Encounters Date Type Department Care Team (Late st Contact Info) Description 04/11/2023 12:40 PM EST Office Visit Otolaryngology/Head & Neck/Facial Plastic Surgery [address] [place] [place] [address] Joesph Yun MD [address] [facility] [place] [address] 04/18/2023 11:00 AM EST Office Visit Orthopaedics [facility] [address] [place] [address] Chava Huff PA-C [address] [place] [address] 04/30/2023 10:10 AM EST Appointment Radiology, [address], [place] [address] 04/30/2023 11:00 AM EST Appointment Radiology, [address] [address] 06/28/2023 8:00 AM EDT Office Visit [facility] [address] [facility], [place] [address] Ottoniel Kenyon MD [address] [place] [address] 09/02/2023 9:00 AM EDT Office Visit Cardiology, [facility] [address] [facility] [place] [address] Halley Preston CRNP [address] [facility] [address] 09/05/2023 10:30 AM EDT Rehab Services Voice Lab, [address] [address] Lance Samuels, [facility] [address] [facility] [address] 09/05/2023 11:00 AM EDT [address] [address] 02/10/2024 10:00 AM EST Cardiac Studies Cardiology, [facility] [address] [facility] [place] [address] [facility] [place] [address] 02/13/2024 8:15 AM EST Cardiac Studies Cardiac Studies, [facility] [address] [place] [address] Scheduled Orders Name Type Priority Associated Diagnoses Orde r Schedule XR CHEST 2 VIEWS Medical Imaging Routine Oropharyngeal dysphagia Cardiac pacemaker in situ Expected: 04/09/2023, Expires: 05/08/2024 Health Maintenance Due Date Last Done Comments Zoster Vaccines (2 of 3) 07/17/2007 05/22/2007 COVID-19 Vaccine ( season) 2022 12/26/2021, 02/14/2021, 06/09/2020, Additional history exists DXA Scan 02/14/2023 02/14/2021, 06/10, 07/21/2014, Additional history exists Albumin/Creatinine Ratio 06/09/2023 06/08/2022, 05/11 CKD PHOS USE SMARTSET 19640 06/09/202305/11, 12/16/2020, 09/26/2020, Additional history exists GFR 09/16/2023 03/18/2023, 02/09, 11/20/2022, Additional history exists TSH 12/26/2023 12/25/2022, 05/11, 12/11/2021, Additional history exists CKD HGB USE SMARTSET 20501 03/18/202403/18, 03/18/2023, 11/20/2022, Additional history exists Depression Screening 04/02/2024 04/02/2023 DTaP,Tdap,and Td Vaccines (2 - Td or Tdap) 08/14/2024 08/14/2014, 01/25/2000 Pneumococcal Vaccine: 65+ Years Completed 01/06/2015, 08/19/2007 VITAMIN D LEVEL ONCE IN A LIFETIME-USE SMARTSET# [id number] Completed 12/11/2018, 07/07/2018, 10/06/2010 Influenza Vaccine (FLU [...] this encounter Medical Devices Implanted Type Area Program/Music Director Device Identifier Shelf Expiration Date Model / Serial / Lot Lead Tempo Temp Pacing - [id number] Implanted:Qty: 1 on 09/20/2020 by Dimitri Maya MD at [facility] [employer] [id number] 06/28/2021 [id number] / / [id number] documented as of this encounter Visit Diagnoses Diagnosis Oropharyngeal dysphagia- Primary Dysphagia, oropharyngeal phase Cardiac pacemaker in situ documented in this encounter Advance Directives Latest Code Status on File Code Status Date Activated Date Inactivated Comments Full Code 10/09/2020 3:04 AM 10/11/2020 7:10 PM This or rodriguez reflects the patients wishes and were consensually agreed upon. Question Answer Comments Discussion of Advance Directives occurred with: Patient Code Status History Code Status Date Activated Date Inactivated Comments Full Code 10/02/2020 1:32 AM 10/04/2020 9:04 PM This order reflects the patients wishes and were consensually agreed upon. Question Answer Comments Discussion of Advance Directives occurred with: Patient Does the patient have a Living Will? No Does the patient have Health Care Power of Ballistics Expert Forensic? No Full Code 09/25/2020 6:44 PM 09/26/2020 [...] the patient have Health Care Power of Ballistics Expert Forensic? No Care Teams Dry Cell Assembly Supervisor Relationship Specialty Start Date End Date Ottoniel Kenyon MD [address] [place] [address] PCP - General 12/15/01 documented as of this encounter
--- OUTSIDE RECORDS SUMMARY | 2023-06-01 11:13 | External Medical Summary | Summary of Care ---
Author Name Unknown Organization [facility] Address [address] [place] [address] Phone [phone] Care Team Providers Care Director Furniture Name Role Phone Kalen Ribeiro MD Primary Care Provider +1- [phone] Reason for Visit * Reason Comments Follow Up dysphagia Encounter Details Date Type Department Care Team (Latest Contact Info) Description 04/11/2023 11:00 AM EST Rehab Services Voice Lab, [place] [address] [place] [address] Seema Quinonez, [facility]-DIGITAL TRAFFIC COORDINATOR [address] [place] [address] Oropharyngeal dysphagia*; Gastroesophageal reflux disease without esophagitis Allergies Active Allergy Reactions Criticality Noted Date Comments Heparin 10/07/2020 Concern for HIT documented as of this encounter (statuses as of 04/12/2023) Medications Medication Sig Dispensed Refills Start Date [...] the morning. 30 Tablet 11 02/27/2023 Active Mirtazapine 15 MG Oral Tablet (Remeron)Indication s:Loss of weight Take 1 Tablet by mouth at bedtime. 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 1 04/12/2020 [...] as of this encounter (statuses as of 04/12/2023) Resolved Problems Problem Noted Date Diagnosed Date [...] as of this encounter (statuses as of 04/12/2023) Immunizations Name Administration Dates Next Due COVID-19 mRNA, LNP-s, No Pre serve, 2-Dose Series (Moderna) 06/09/2020,05/12/2020 COVID-19, mRNA, LNP-s, PF, B ooster, 100mcg/0.5mg (Moderna) 02/14/2021 Covid-19, Mrna, Lnp-s, Pf, B ivalent, 30 Mcg, IM, 12 yrs and above ([place]) 12/26/2021 Pneumococcal Conjugate Vacc, 13 Valent (Prevnar) [...] No 10/10/2020 documented as of this encounter Progress Notes * Seema Quinonez, CCC-DIGITAL TRAFFIC COORDINATOR - 04/11/2023 3:53 PM EST Images from the original note were not included. Flexible Endoscopic Evaluation of Swallowing (FEES) [facility] Referring MD: Dr. Yun FEES Endoscopist: Seema Quinonez CCC-DIGITAL TRAFFIC COORDINATOR Reason for Referral: Instrumental swallow assessment to assess oropharyngeal swallow function, oralfeeding safety and potential for diet advancement. The severity of the patients medical condition (described below) and/or dysphagia warranted a FEES study. Medical History: Per [facility] chart review, pt is a "82 year old patient sent to me in further evaluation of this problem by Kalen Ribeiro MD who developed new onset symptoms about 4 weeks ago with hoarseness, mucus sensation in her throat and was not able to chew and swallow that evening. Evaluation with Dr. Samuels was concerning for possible left vocal paresis. Since that time she's had some weight loss but supplementing with protein shakes. She was seen by her PCP 03/15/23 and in the ER 03/18/23-- had no acute findings on chest or neck CT. GI consult while in ER-- plan for swallow study and EGD as noted below. she's swallowing better now, the voice is a bit better bust still variable. No smoking. BAS 03/27/2023 - Laryngeal penetration and aspiration of material. Transient asymmetry in contour ofcervical esophagus. Some retention of contrast material within vallecula and particularly left piriform sinus. Thoracic esophageal dysmotility. MBSS 04/03/2023 - no aspiration EGD 03/2023 - unremarkable CT neck 03/2023 - Thickening of the soft palate more so on the right. No defined rim enhancing fluidcollection identified. Minimal mucosal sinus disease. CT chest 03/2023 - Small hiatal hernia. No obvious esophageal distention. Interval resolution of pericardial and pleural effusions with pulmonary reexpansion. Predominantly peripheral subpleural parenchymal densities, nonspecific but favored to represent atelectasis and/or scarring. MRI Brain 2021 - Moderate global volume loss with mild chronic microvascular ischemic change, not unexpected for the patient's age. Partial visualization of multilevel degenerative changes of the upper cervical spine." Cognitive/communicative status: Pt alert; followed directions, communicated wants and needs, and conversed appropriately PO status/Dysphagia history: PO soft/chewable solids with thin liquids as per recommendations from DIGITAL TRAFFIC COORDINATOR on recent MBSS 04/03/23. Pneumonia History: none recent Oral mechanism exam: Facial Symmetry Within functional limits Labial Function Within functional limits Lingual Function Within functional limits Velar Function DNT Dentition: Natural Protective mechanisms: Volitional Swallow Within Functional Limits Volitional Throat Clearing Did not test Volitional Cough Did not test Vocal Quality Within Functional Limits Tracheostomy Tube: Not Present Ventilator Status: Not Applicable Procedure: Patient was sitting upright in chair at a 90 degree angle The Tung Storz HD scope was inserted into the R nare. Pt given PO trials of thin liquids, applesauce, diced peaches, and belle cracker. Patient tolerated the procedure well with the findings outlined below. Findings: View of larynx before PO trials showed L VF hypomobility (confirmed by ENT). No pooling of secretions. Swallowing efficiency: Mild vallecular retention with diced peaches and belle cracker due to decreased epiglottic inversion. This was grossly cleared with subsequent swallows and/or liquid wash. Overall, functional efficiency given pt's age. Airway protection: Within functional limits (WFL). No visualized laryngeal aspiration throughout the exam. Media Information: Post thin Post applesauce Post peaches Post liquid wash Post belle cracker Close airway Impression: Mild vallecular retention of chewable solids No direct aspiration visualized DIGEST-FEES: Safety grade: S0 Efficiency grade: E1 Score (Interaction of Assigned Safety and Efficiency Grades): 1 (Mild) Anticipated frequency/return follow up: Follow up as needed Additional comments: -Pt able to visualize the study during exam which provided pt with immediate biofeedback RECOMMENDATIONS: PO status regular solids with thin liquids - slowly increase advanced consistencies per comfort level Continue with prescribed exercises and techniques as instructed by DIGITAL TRAFFIC COORDINATOR RTC as needed documented in this encounter Miscellaneous Notes * Addendum Note - Seema Quinonez CCC-DIGITAL TRAFFIC COORDINATOR - 04/12/2023 12:56 PM EST Addended by: SEEMA QUINONEZ on: 04/12/2023 12:56 PM Modules accepted: Orders, Level of Service * Addendum Note - Seema Quinonez CCC-SLP - 04/11/2023 4:19 PM ESTAddended by: SEEMA QUINONEZ on: 04/11/2023 04:19 PM Modules accepted: Orders documented in this encounter Plan of Treatment Upcoming Encounters Date Type Department Care Team (Late st Contact Info) Description 04/16/2023 10:45 AM EST Appointment Radiology, [address] [address] 04/16/2023 11:30 AM EST Appointment Radiology, [address] [address] 04/18/2023 11:00 AM EST Office Visit Orthopaedics [facility] [address] [facility] [place] [address] Chava Huff PA-C [address] [place] [address] 06/28/2023 8:00 AM EDT Office Visit [facility] [address] [place] [address] Kalen Ribeiro MD [address] [place] [address] 08/08/2023 2:20 PM EDT Office Visit Otolaryng[facility]Head & Neck[facility] [address] Joesph Yun MD [address] [place] [address] 09/02/2023 9:00 AM EDT Office Visit Cardiology, [facility] [address] [facility] [place] [address] Halley Preston CRNP [address] [facility] [place] [address] 09/05/2023 10:30 AM EDT Rehab Services Voice Lab, [facility] [address] [place] [address] Lance Samuels, [facility]-DIGITAL TRAFFIC COORDINATOR [address] [facility] [place] [address] 09/05/2023 11:00 AM EDT Appointment Radiology, [facility] [address] [place] [address] 02/10/2024 10:00 AM EST Cardiac Studies Cardiology, [facility] [address] [facility] [place] [address] [facility] [address] [facility] [place] [address] 02/13/2024 8:15 AM EST Cardiac Studies Cardiac Studies, [facility] [address] [facility] [place] [address] Scheduled Orders Name Type Priority Associated Diagnoses Orde r Schedule FLEX ENDO EVAL SWAL FUNC REC Procedures Routine Oropharyngeal dysphagia Gastroesophageal reflux disease without esophagitis Ordered: 04/12/2023 Health Maintenance Due Date Last Done Comments Zoster Vaccines (2 of 3) 07/17/2007 05/22/2007 COVID-19 Vaccine ( season) 2022 12/26/2021, 02/14/2021, 06/09/2020, Additional history exists DXA Scan 02/14/2023 02/14/2021, 09/2020, 07/02/2017, Additional history exists Albumin/Creatinine Ratio 06/09/2023 06/08/2022, 05/11 CKD PHOS USE SMARTSET 29794 06/09/202305/11, 12/16/2020, 09/26/2020, Additional history exists GFR 10/09/2023 04/10/2023, 01/0 10/2023, 03/06/2023, Additional history exists TSH 12/26/2023 12/25/2022, 05/11, 12/11/2021, Additional history exists Depression Screening 04/02/2024 04/02/2023 CKD HGB USE SMARTSET 87211 04/10/202404/10, 03/18/2023, 03/18/2023, Additional history exists DTaP,Tdap,and Td Vaccines (2 - Td or Tdap) 08/14/2024 08/14/2014, 01/25/2000 Pneumococcal Vaccine: 65+ Years Completed 01/06/2015, 08/19/2007 VITAMIN D LEVEL ONCE IN A LIFETIME-USE SMARTSET# [id number] Completed 12/11/2018, 07/07/2018, 10/06/2010 Influenza Vaccine (FLU [...] this encounter Medical Devices Implanted Type Area Runner Worker Device Identifier Shelf Expiration Date Model / Serial / Lot Lead Tempo Temp Pacing - [id number] Implanted:Qty: 1 on 09/20/2020 by Dimitri Maya MD at [facility] [employer] [id number] 06/28/2021 [id number] / / [id number] documented as of this encounter Visit Diagnoses Diagnosis Oropharyngeal dysphagia- Primary Dysphagia, oropharyngeal phase Gastroesophageal reflux disease without esophagitis Esophageal reflux documented in this encounter Advance Directives Latest [...] the patient have Health Care Power of Ice Bag Assembler? No Full Code 09/25/2020 6:44 PM 09/26/2020 [...] the patient have Health Care Power of Ice Bag Assembler? No Care Teams Director Furniture Relationship Specialty Start Date End Date Kalen Ribeiro MD [address] [place] [address] PCP - General 12/15/01 documented as of this encounter
--- OUTSIDE RECORDS SUMMARY | 2023-06-01 11:13 | External Medical Summary ---
Author Name Unknown Address Unknown Organization K01:LABORATORY [facility] - [address] [facility] [address] Laboratory Report Ordering Provider Test Date Status JUVENAL ALCAZARSHERLYN 04/10/2023 14:04:40 Final Observation Date Value Abnormality Reference (Units ) Status BUN 04/10/2023 14:04:40 13 6-20 (mg/dL) Final Creatinine 04/10/2023 14:04:40 0.7 0.5-1.0 (mg/dL) Final Glomerular filtration rate/1.73 sq M.predicted [Volume Rate/Area] in Serum, Plasma or Blood by Creatinine-based formula (CKD-EPI) 04/10/2023 14:04:40 88 >=60 (mL/min) Final eGFR is calculated based on the CKD-EPI 2020 equation SODIUM 04/10/2023 14:04:40 139 135-146 (m mol/L) Final Potassium 04/10/2023 14:04:40 3.6 3.5-5.1 (m mol/L) Final Cl 04/10/2023 14:04:40 97 Below low normal 98- 107 (mmol/L) Final CO2 04/10/2023 14:04:40 26 22-32 (mmo l/L) Final Anion gap 04/10/2023 14:04:40 16 Above high normal 7- 15 (mmol/L) Final Glucose 04/10/2023 14:04:40 120 70-120 (mg /dL) Final Albumin 04/10/2023 14:04:40 3.7 Below low normal 3.8 -5.0 (g/dL) Final AST (Aspartate aminotransferase) 04/10/2023 14:04:40 25 10-35 (U/L) Fin al Alk Phos 04/10/2023 14:04:40 47 35-130 (U/ L) Final Bilirubin, Total 04/10/2023 14:04:40 0.7 <=1 .2 (mg/dL) Final Calcium 04/10/2023 14:04:40 9.1 8.4-10.2 ( mg/dL) Final Protein 04/10/2023 14:04:40 6.3 6.0-8.3 (g /dL) Final ALT (Alanine aminotransferase) 04/10/2023 14:04:40 13 10-35 (U/L) Asher schroeder Performing Location LABORATORY [facility] - [address] [facility] [address]
--- OUTSIDE RECORDS SUMMARY | 2023-06-01 11:13 | External Medical Summary | Summary of Care ---
Author Name Unknown Organization [facility] [address] [place] [address] Phone [phone] Care Team Providers Care Traveling Operator Name Role Phone Kalen Ribeiro MD Primary Care Provider +1- [phone] Reason for Visit * Reason Onset Date Comments Appointment 04/08/2023 MRI SCREEN/PACEM ANTHONY Encounter Details Date Type Department Care Team (Late st Contact Info) Description 04/08/2023 Telephone Radiology, [address] [address] Telly Molina, RT Appointment (MRI SCREEN/PACEMAKER) Allergies Active Allergy Reactions Criticality Noted Date Comments Heparin 10/07/2020 Concern for HIT documented as of this encounter (statuses as of 04/08/2023) Medications Medication Sig Dispensed Refills Start Date [...] as of this encounter (statuses as of 04/08/2023) Active Problems Problem Noted Date Diagnosed Date [...] aorta 07/14/2021 Atherosclerotic heart diseas e of [place] coronary artery with other forms of angina pectoris 07/14/2021 Age-related osteoporosis wit hout current pathological fracture 07/14/2021 History of pulmonary embolism 06/08/2021 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 PT NEEDS A 2VIEW CXR PRIOR. PT HAS A HEART VALVE. PT SCHEDULED FOR 04-30-23 @ 11AM. FORMS SENT TO CARDIAC NURSES AND [employer] REP. documented in this encounter Plan of Treatment Upcoming Encounters Date Type Department Care Team (Late st Contact Info) Description 04/11/2023 12:40 PM EST Office Visit Otolaryngology/Head & Neck/Facial Plastic Surgery [address] [place] [facility] [place] [address] Joesph Yun MD [address] [place] [facility] [place] [address] 04/18/2023 11:00 AM EST Office Visit Orthopaedics [facility] [address] [place] [address] Chava Huff PA-C [facility] [place] [address] 06/28/2023 8:00 AM EDT Office Visit [facility] [address] [place] [phone] Kalen Ribeiro MD [address] [place] [address] 09/02/2023 9:00 AM EDT Office Visit Cardiology, [facility] [address] [place] [address] Halley Preston CRNP [address] [place] [address] 09/05/2023 10:30 AM EDT Rehab Services Voice Lab, [address] [place] [address] Lance Samuels, [facility]-SUPERVISOR [employer]EARCH KENNEL [address] [facility] [place] [address] 09/05/2023 11:00 AM EDT Appointment Radiology, [facility] [address] [place] [address] 02/10/2024 10:00 AM EST Cardiac Studies Cardiology, [facility] [address] [place] [address] [place] [address] [place] [address] 02/13/2024 8:15 AM EST Cardiac Studies Cardiac Studies, [facility] 132 [facility] [place] [address] Health Maintenance Due Date Last Done Comments Zoster Vaccines (2 of 3) 07/17/2007 05/22/2007 COVID-19 Vaccine ( season) 2022 12/26/2021, 02/14/2021, 06/09/2020, Additional history exists DXA Scan 02/14/2023 02/14/2021, 06/10, 07/21/2014, Additional history exists Albumin/Creatinine Ratio 06/09/2023 06/08/2022, 05/11 CKD PHOS USE SMARTSET 17140 06/09/202305/11, 12/16/2020, 09/26/2020, Additional history exists GFR 09/16/2023 03/18/2023, 02/09, 11/20/2022, Additional history exists TSH 12/26/2023 12/25/2022, 05/11, 12/11/2021, Additional history exists CKD HGB USE SMARTSET 09623 03/18/202403/18, 03/18/2023, 11/20/2022, Additional history exists Depression Screening 04/02/2024 04/02/2023 DTaP,Tdap,and Td Vaccines (2 - Td or Tdap) 08/14/2024 08/14/2014, 01/25/2000 Pneumococcal Vaccine: 65+ Years Completed 01/06/2015, 08/19/2007 VITAMIN D LEVEL ONCE IN A LIFETIME-USE SMARTSET# [id number] Completed 12/11/2018, 07/07/2018, 10/06/2010 Influenza Vaccine (FLU [...] this encounter Medical Devices Implanted Type Area Creative Writer Device Identifier Shelf Expiration Date Model / Serial / Lot Lead Tempo Temp Pacing - [id number] Implanted:Qty: 1 on 09/20/2020 by Dimitri Maya MD at [facility] [employer] [id number] 06/28/2021 [id number] / / [id number] documented as of this encounter Advance Directives [...] the patient have Health Care Power of Blow Torch Burner? No Full Code 09/25/2020 6:44 PM 09/26/2020 [...] the patient have Health Care Power of Blow Torch Burner? No Care Teams Traveling Operator Relationship Specialty Start Date End Date Kalen Ribeiro MD [address] [place] [address] PCP - General 12/15/01 documented as of this encounter
--- OUTSIDE RECORDS SUMMARY | 2023-06-01 11:13 | External Medical Summary ---
Author Name Unknown Address Unknown Organization K01:LABORATORY [facility] - [facility] [address] Laboratory Report Ordering Provider Test Date Status CHANTALE ALCAZAR 04/10/2023 14:04:40 Final Observation Date Value Abnormality Reference (Units ) Status WBC, Total 04/10/2023 14:04:40 20.73 Above high normal 4.00-10.80 (K/uL) Final RBC 04/10/2023 14:04:40 4.24 3.85-5.15 (M/uL) Final Hemoglobin 04/10/2023 14:04:40 13.3 12.0-15.3 (g/dL) Final HCT 04/10/2023 14:04:40 41.1 36.0-45.2 (%) Final MCV 04/10/2023 14:04:40 96.9 81.5-97.5 (fL) Final MCH 04/10/2023 14:04:40 31.4 27.0-34.0 (pg) Final MCHC 04/10/2023 14:04:40 32.4 32.0-36.0 (g/dL) Final RDW 04/10/2023 14:04:40 12.7 11.5-15.5 (%) Final Platelets 04/10/2023 14:04:40 354 140-400 (K/uL) Final MPV 04/10/2023 14:04:40 10.0 6.6-11.1 (fL) Final Nucleated erythrocytes/100 leukocytes [Ratio] in Blood by Automated count 04/10/2023 14:04:40 0 <=0 (/100 WBCs) Final Performing Location LABORATORY C - [address] [facility] [address]
--- OUTSIDE RECORDS SUMMARY | 2023-06-01 11:13 | External Medical Summary | Summary of Care ---
Author Name Unknown Organization [facility] [address] [place] [address] Phone [phone] Care Team Providers Care Monotype Keyboard Operator Name Role Phone Kalen Ribeiro MD Primary Care Provider +1- [phone] Reason for Visit * Reason Onset Date Comments Appointment 04/08/2023 Encounter Details Date Type Department Care Team (Late st Contact Info) Description 04/08/2023 Telephone Radiology, [address] [address] Cody Willis, RT Appointment Allergies Active Allergy Reactions Criticality Noted Date [...] aorta 07/14/2021 Atherosclerotic heart diseas e of [place] coronary artery with other forms of angina pectoris 07/14/2021 Age-related osteoporosis wit hout current pathological fracture 07/14/2021 History of pulmonary embolism 06/08/2021 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 [address] [place] [address] Chava Huff PA-C [address] [place] [address] 06/28/2023 8:00 AM EDT Office Visit [facility] [address] [place] [address] Kalen Ribeiro MD [address] [place] [address] 09/02/2023 9:00 AM EDT Office Visit Cardiology, [facility] [address] [place] [address] Halley Preston CRNP [address] [place] [address] 09/05/2023 10:30 AM EDT Rehab Services Voice Lab, [facility] [address] Lance Samuels, [facility] [address] [place] [address] 09/05/2023 11:00 AM EDT Appointment Radiology, [facility] [address] [facility] [phone] 02/10/2024 10:00 AM EST Cardiac Studies Cardiology, [facility] 132 [facility] [place] [address] [facility] [address] [place] [address] 02/13/2024 8:15 AM EST Cardiac Studies Cardiac Studies, [facility] [address] [facility] [place] [address] Health Maintenance Due Date Last Done Comments Zoster Vaccines (2 of 3) 07/17/2007 05/22/2007 COVID-19 Vaccine (2022- season) 2022 12/26/2021, 02/14/2021, 06/09/2020, Additional history exists DXA Scan 02/14/2023 02/14/2021, 06/10, 07/21/2014, Additional history exists Albumin/Creatinine Ratio 06/09/2023 06/08/2022, 05/11 CKD PHOS USE SMARTSET 72328 06/09/202305/11, 12/16/2020, 09/26/2020, Additional history exists GFR 09/16/2023 03/18/2023, 02/09, 11/20/2022, Additional history exists TSH 12/26/2023 12/25/2022, 05/11, 12/11/2021, Additional history exists CKD HGB USE SMARTSET 28468 03/18/202403/18, 03/18/2023, 11/20/2022, Additional history exists Depression Screening 04/02/2024 04/02/2023 DTaP,Tdap,and Td Vaccines (2 - Td or Tdap) 08/14/2024 08/14/2014, 01/25/2000 Pneumococcal Vaccine: 65+ Years Completed 01/06/2015, 08/19/2007 VITAMIN D LEVEL ONCE IN A LIFETIME-USE SMARTSET# [id number] Completed 12/11/2018, 07/07/2018, 10/06/2010 Influenza Vaccine (FLU [...] this encounter Medical Devices Implanted Type Area Brokerage Coordinator Device Identifier Shelf Expiration Date Model / Serial / Lot Lead Tempo Temp Pacing - [id number] Implanted:Qty: 1 on 09/20/2020 by Diimtri Maya MD at [facility] [employer] [id number] 06/28/2021 [id number] / / [id number] documented as of this encounter Advance Directives [...] the patient have Health Care Power of Juice Mixer? No Full Code 09/25/2020 6:44 PM [...] the patient have Health Care Power of Juice Mixer? No Care Teams Monotype Keyboard Operator Relationship Specialty Start Date End Date Kalen Ribeiro MD [address] [place] [address] PCP - General 12/15/01 documented as of this encounter
--- OUTSIDE RECORDS SUMMARY | 2023-06-01 11:13 | External Medical Summary | Summary of Care ---
Author Name Unknown Organization [facility] Address [address] [place] [address] Phone [phone] Care Team Providers Care Catalyst Operator Chief Name Role Phone Kalen Ribeiro MD Primary Care Provider +1- [phone] Reason for Visit * Reason Comments Follow Up dysphagia Encounter Details Date Type Department Care Team (Latest Contact Info) Description 04/11/2023 11:00 AM EST Rehab Services Voice Lab, [place] [address] [place] [address] Shae Quinonez, [facility] [address] [place] [address] Oropharyngeal dysphagia* Allergies Active Allergy Reactions Criticality Noted Date Comments Heparin 10/07/2020 Concern for HIT documented as of this encounter (statuses as of 04/11/2023) Medications Medication Sig Dispensed Refills Start Date [...] as of this encounter (statuses as of 04/11/2023) Active Problems Problem Noted Date Diagnosed Date [...] aorta 07/14/2021 Atherosclerotic heart diseas e of [place] coronary artery with other forms of angina pectoris 07/14/2021 Age-related osteoporosis wit hout current pathological fracture 07/14/2021 History of pulmonary embolism 06/08/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 1 04/12/2020 [...] as of this encounter (statuses as of 04/11/2023) Resolved Problems Problem Noted Date Diagnosed Date [...] as of this encounter (statuses as of 04/11/2023) Immunizations Name Administration Dates Next Due COVID-19 mRNA, LNP-s, No Pre serve, 2-Dose Series (Moderna) 06/09/2020,05/12/2020 COVID-19, mRNA, LNP-s, PF, B ooster, 100mcg/0.5mg (Moderna) 02/14/2021 Covid-19, Mrna, Lnp-s, Pf, B ivalent, 30 Mcg, IM, 12 yrs and above ([employer]) 12/26/2021 Pneumococcal Conjugate Vacc, 13 Valent (Prevnar) [...] encounter Miscellaneous Notes * Addendum Note - Shae Quinonez CCC-FISH TRAPPER - 04/11/2023 4:19 PM ESTAddended by: SHAE QUINONEZ on: 04/11/2023 04:19 PM Modules accepted: Orders documented in this encounter Plan of Treatment Upcoming Encounters Date Type Department Care Team (Late st Contact Info) Description 04/16/2023 10:45 AM EST Appointment Radiology, [address] [place] [address] 04/16/2023 11:30 AM EST Appointment Radiology, [address] [place] [address] 04/18/2023 11:00 AM EST Office Visit [facility] [place] [address] Chava Huff PA-C [facility] [place] [address] 06/28/2023 8:00 AM EDT Office Visit [facility] [address] [place] [address] Kalen Ribeiro MD [address] [place] [address] 08/08/2023 2:20 PM EDT Office Visit Otolaryngology/Head & Neck/Facial Plastic Surgery [address] [place] [facility] [place] [address] Joesph Yun MD [address] [place] [facility] [facility] [place] [address] 09/02/2023 9:00 AM EDT Office Visit Cardiology, [facility] [address] [place] [address] Halley Preston CRNP [address] [place] [address] 09/05/2023 10:30 AM EDT Rehab Services Voice Lab, [facility] [address] [place] [address] Lance Samuels, [facility] [address] [place] [address] 09/05/2023 11:00 AM EDT Appointment Radiology, [facility] [address] [place] [phone] 02/10/2024 10:00 AM EST Cardiac Studies Cardiology, [facility] 132 [facility] [place] [address] [place], Pacer Clinic [facility] 132 [facility] [place] [address] 02/13/2024 8:15 AM EST Cardiac Studies Cardiac Studies, [facility] 132 [facility] [place] [address] Health Maintenance Due Date Last Done Comments Zoster Vaccines (2 of 3) 07/17/2007 05/22/2007 COVID-19 Vaccine ( season) 2022 12/26/2021, 02/14/2021, 06/09/2020, Additional history exists DXA Scan 02/14/2023 02/14/2021, 09/2020, 07/02/2017, Additional history exists Albumin/Creatinine Ratio 06/09/2023 06/08/2022, 05/11 CKD PHOS USE SMARTSET 93273 06/09/202305/11, 12/16/2020, 09/26/2020, Additional history exists GFR 10/09/2023 04/10/2023, 0 10/2023, 03/06/2023, Additional history exists TSH 12/26/2023 12/25/2022, 05/11, 12/11/2021, Additional history exists Depression Screening 04/02/2024 04/02/2023 CKD HGB USE SMARTSET 17488 04/10/202404/10, 03/18/2023, 03/18/2023, Additional history exists DTaP,Tdap,and Td Vaccines (2 - Td or Tdap) 08/14/2024 08/14/2014, 01/25/2000 Pneumococcal Vaccine: 65+ Years Completed 01/06/2015, 08/19/2007 VITAMIN D LEVEL ONCE IN A LIFETIME-USE SMARTSET# [id number] Completed 12/11/2018, 07/07/2018, 10/06/2010 Influenza Vaccine (FLU [...] this encounter Medical Devices Implanted Type Area Track Worker Device Identifier Shelf Expiration Date Model / Serial / Lot Lead Tempo Temp Pacing - [id number] Implanted:Qty: 1 on 09/20/2020 by Dimitri Maya MD at [facility] [employer] [id number] 06/28/2021 [id number] / / [id number] documented as of this encounter Visit Diagnoses Diagnosis Oropharyngeal dysphagia- Primary Dysphagia, oropharyngeal phase documented in this encounter Advance Directives Latest [...] the patient have Health Care Power of Owner Operator? No Full Code 09/25/2020 6:44 PM [...] the patient have Health Care Power of Owner Operator? No Care Teams Catalyst Operator Chief Relationship Specialty Start Date End Date Kalen Ribeiro MD [address] [place] [address] PCP - General 12/15/01 documented as of this encounter
--- OUTSIDE RECORDS SUMMARY | 2023-06-01 11:13 | External Medical Summary | Summary of Care ---
Author Name Unknown Organization [facility] [address] [place] [address] Phone [phone] Care Team Providers Care Lathe Mechanic Name Role Phone Kalen Ribeiro MD Primary Care Provider +1- [phone] Reason for Visit * Reason Onset Date Comments Appointment 04/11/2023 Encounter Details Date Type Department Care Team (Late st Contact Info) Description 04/11/2023 Telephone Radiology, [address] [address] Cody Willis, RT Appointment Allergies [...] aorta 07/14/2021 Atherosclerotic heart diseas e of [place] coronary artery with other forms of angina pectoris 07/14/2021 Age-related osteoporosis wit hout current pathological fracture 07/14/2021 History of pulmonary embolism 06/08/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 1 04/12/2020 [...] Miscellaneous Notes * Telephone Encounter - Cody Willis, RT - 04/11/2023 3:20 PM EST Ready for mri and is happy we can move up mri pacer appt Cxr at 10:45 and MRI 11:30 documented in this encounter Plan of Treatment Upcoming Encounters Date Type Department Care Team (Late st Contact Info) Description 04/16/2023 10:45 AM EST [address] [address] 04/16/2023 11:30 AM EST App[address]ment Radiology, [address] [address] 04/18/2023 11:00 AM EST Office Visit [facility]opaedics [facility] [place] [address] Chava Huff PA-C 132 [facility] [place] [address] 06/28/2023 8:00 AM EDT Office Visit [facility] [address] [place] [phone] Kalen Ribeiro MD [address] [place] [address] 08/08/2023 2:20 PM EDT Office Visit Otolaryngology/Head & Neck/Facial Plastic Surgery [address] [place] [address] Joesph Yun MD [address] [place] [address] 09/02/2023 9:00 AM EDT Office Visit Cardiology, [facility] [address] [place] [address] Halley Preston CRNP [address] [place] [address] 09/05/2023 10:30 AM EDT Rehab Services Voice Lab, [facility] [address] Lance Samuels, [facility]ORER [address] [place] [address] 09/05/2023 11:00 AM EDT Appointment Radiology, [facility] [address] 02/10/2024 10:00 AM EST Cardiac Studies Cardiology, [facility] 132 [facility] [place] [address] [place], Pacer Clinic [facility] 132 [facility] [place] [address] 02/13/2024 8:15 AM EST Cardiac Studies Cardiac Studies, [facility] 132 [facility] [place] [address] Health Maintenance Due Date Last Done Comments Zoster Vaccines (2 of 3) 07/17/2007 05/22/2007 COVID-19 Vaccine ( season) 2022 12/26/2021, 02/14/2021, 06/09/2020, Additional history exists DXA Scan 02/14/2023 02/14/2021, 09/2020, 07/02/2017, Additional history exists Albumin/Creatinine Ratio 06/09/2023 06/08/2022, 05/11 CKD PHOS USE SMARTSET 97091 06/09/202305/11, 12/16/2020, 09/26/2020, Additional history exists GFR 10/09/2023 04/10/2023, 10/2023, 03/06/2023, Additional history exists TSH 12/26/2023 12/25/2022, 05/11, 12/11/2021, Additional history exists Depression Screening 04/02/2024 04/02/2023 CKD HGB USE SMARTSET 11080 04/10/202404/10, 03/18/2023, 03/18/2023, Additional history exists DTaP,Tdap,and Td Vaccines (2 - Td or Tdap) 08/14/2024 08/14/2014, 01/25/2000 Pneumococcal Vaccine: 65+ Years Completed 01/06/2015, 08/19/2007 VITAMIN D LEVEL ONCE IN A LIFETIME-USE SMARTSET# [id number] Completed 12/11/2018, 07/07/2018, 10/06/2010 Influenza Vaccine (FLU [...] this encounter Medical Devices Implanted Type Area Pcas Device Identifier Shelf Expiration Date Model / Serial / Lot Lead Tempo Temp Pacing - [id number] Implanted:Qty: 1 on 09/20/2020 by Dimitri Maya MD at [facility] [employer] [id number] 06/28/2021 [id number] / / [id number] documented as of this encounter Advance Directives [...] the patient have Health Care Power of Center Mgr? No Full Code 09/25/2020 6:44 PM 09/26/2020 [...] the patient have Health Care Power of Center Mgr? No Care Teams Lathe Mechanic Relationship Specialty Start Date End Date Kalen Ribeiro MD [address] [place] [address] PCP - General 12/15/01 documented as of this encounter
--- OUTSIDE RECORDS SUMMARY | 2023-06-01 11:13 | External Medical Summary ---
Author Name Unknown Address Unknown Organization K01:LABORATORY [facility] - [address] [place] [address] Laboratory Report Ordering Provider Test Date Status BHUPINDER BRISCOE 04/15/2023 13:16:32 Final Observation Date Value Abnormality Reference (Units ) Status Vitamin B12 04/15/2023 13:16:32 1798 Above high normal 232-1245 (pg/mL) Final Performing Location LABORATORY [facility] - [address] [place] [address]
--- OUTSIDE RECORDS SUMMARY | 2023-06-01 11:13 | External Medical Summary | Summary of Care ---
Author Name Unknown Organization [facility] Address [address] [place] [address] Phone [phone] Care Team Providers Care Compensation Programs Manager Name Role Phone Kalen Ribeiro MD Primary Care Provider +1- [phone] Reason for Visit * Reason Comments Outpatient Testing Encounter Details Date Type Department Care Team (Late st Contact Info) Description 04/10/2023 2:10 PM EST Laboratory Laboratory, [place] [address] [place] [address] [place], [facility] [address] [place] [address] Loss of weight Allergies Active Allergy Reactions Criticality Noted Date Comments Heparin 10/07/2020 Concern for HIT documented as of this encounter (statuses as of 04/10/2023) Medications Medication Sig Dispensed Refills Start Date [...] as of this encounter (statuses as of 04/10/2023) Active Problems Problem Noted Date Diagnosed Date [...] aorta 07/14/2021 Atherosclerotic heart diseas e of [place] coronary artery with other forms of angina pectoris 07/14/2021 Age-related osteoporosis wit hout current pathological fracture 07/14/2021 History of pulmonary embolism 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 1 04/12/2020 [...] as of this encounter (statuses as of 04/10/2023) Resolved Problems Problem Noted Date Diagnosed Date [...] as of this encounter (statuses as of 04/10/2023) Immunizations Name Administration Dates Next Due COVID-19 mRNA, LNP-s, No Pre serve, 2-Dose Series (Moderna) 06/09/2020,05/12/2020 COVID-19, mRNA, LNP-s, PF, B ooster, 100mcg/0.5mg (Moderna) 02/14/2021 Covid-19, Mrna, Lnp-s, Pf, B ivalent, 30 Mcg, IM, 12 yrs and above ([employer]) 12/26/2021 Pneumococcal Conjugate Vacc, 13 Valent (Prevnar) [...] No 10/10/2020 documented as of this encounter Plan of Treatment Upcoming Encounters Date Type Department Care Team (Late st Contact Info) Description 04/11/2023 12:40 PM EST Office Visit Otolaryngology/Head & Neck/Facial Plastic Surgery [address] [place] [facility] [place] [address] Joesph Yun MD [address] [place] [facility] [place] [address] 04/18/2023 11:00 AM EST Office Visit Orthopaedics [facility] [address] [place] [address] Chava Huff PA-C [address] [place] [address] 04/30/2023 10:10 AM EST Appointment Radiology, [address] [address] 04/30/2023 11:00 AM EST Appointment Radiology, [address] [address] 06/28/2023 8:00 AM EDT Office Visit [place] [address] [place] [address] Kalen Ribeiro MD [address] [place] [address] 09/02/2023 9:00 AM EDT Office Visit Cardiology, [facility] [address] [place] [address] Halley Preston CRNP [address] [place] [address] 09/05/2023 10:30 AM EDT Rehab Services Voice Lab, [address] [address] Lance Samuels, [facility] MACHINE COMPUTER OPERATOR [address] [place] [address] 09/05/2023 11:00 AM EDT Appointment Radiology, [facility] [address] [place] [address] 02/10/2024 10:00 AM EST Cardiac Studies Cardiology, [facility] 132 [facility] [place] [address] [place], Pacer Clinic [facility] 132 [facility] [place] [address] 02/13/2024 8:15 AM EST Cardiac Studies Cardiac Studies, [facility] [address] [place] [address] Pending Results Name Type Priority Associated Diagnoses Date /Time CBC Lab Routine Loss of weight 04/10/2023 2:04 PM EST COMPREHENSIVE METABOLIC PANEL Lab Routine Loss of weight 04/10/2023 2:04 PM EST Health Maintenance Due Date Last Done Comments Zoster Vaccines (2 of 3) 07/17/2007 05/22/2007 COVID-19 Vaccine ( season) 2022 12/26/2021, 02/14/2021, 06/09/2020, Additional history exists DXA Scan 02/14/2023 02/14/2021, 06/10, 07/21/2014, Additional history exists Albumin/Creatinine Ratio 06/09/2023 06/08/2022, 05/11 CKD PHOS USE SMARTSET 80147 06/09/202305/11, 12/16/2020, 09/26/2020, Additional history exists GFR 09/16/2023 03/18/2023, 02/09, 11/20/2022, Additional history exists TSH 12/26/2023 12/25/2022, 05/11, 12/11/2021, Additional history exists CKD HGB USE SMARTSET 43136 03/18/202403/18, 03/18/2023, 11/20/2022, Additional history exists Depression Screening 04/02/2024 04/02/2023 DTaP,Tdap,and Td Vaccines (2 - Td or Tdap) 08/14/2024 08/14/2014, 01/25/2000 Pneumococcal Vaccine: 65+ Years Completed 01/06/2015, 08/19/2007 VITAMIN D LEVEL ONCE IN A LIFETIME-USE SMARTSET# 14119 Completed 12/11/2018, 07/07/2018, 10/06/2010 Influenza Vaccine (FLU [...] this encounter Medical Devices Implanted Type Area Dental Manager Device Identifier Shelf Expiration Date Model / Serial / Lot Lead Tempo Temp Pacing - [id number] Implanted:Qty: 1 on 09/20/2020 by Dimitri Maya MD at [facility] [employer] [id number] 06/28/2021 [id number] / / [id number] documented as of this encounter Visit Diagnoses [...] the patient have Health Care Power of Shotgun Shell Assembly Machine Operator? No Full Code 09/25/2020 6:44 [...] the patient have Health Care Power of Shotgun Shell Assembly Machine Operator? No Care Teams Compensation Programs Manager Relationship Specialty Start Date End Date Kalen Ribeiro MD [address] [place] [address] PCP - General 12/15/01 documented as of this encounter
--- OUTSIDE RECORDS SUMMARY | 2023-06-01 11:13 | External Medical Summary | Summary of Care ---
Author Name Unknown Organization [facility] Address [address] [place] [address] Phone [phone] Care Team Providers Care Spanish Professor Name Role Phone Kalen Ribeiro MD Primary Care Provider +1- [phone] Reason for Visit * Reason Onset Date Comments Order Request 04/05/2023 Pacemaker - MRI ordered Encounter Details Date Type Department Care Team (Late st Contact Info) Description 04/05/2023 Telephone Radiology, [address] [address] Services, Scheduling [address] [place] [address] Order Request (Pacemaker - MRI ordered) Allergies Active Allergy Reactions Criticality Noted Date [...] fracture 07/14/2021 History of pulmonary embolism 06/08/2021 alf current use of anticoagulant therapy 1 04/12/2020 [...] Telephone Encounter - Makayla Penny OSA - 04/05/2023 1:50 PM EST Please also see TE dated 03.28.[address] Ribeiro states he talked to Cardio and Clinic thatplaced Pacer and they * Telephone Encounter - Vanessa White OSA - 04/05/2023 12:52 PM EST [facility] pls advise on pt's implant for MRI Brain order. Recv'd IM from Makayla Penny/clinic -I spoke to patient's Suri pacheco, and she states that Dr. Mason in [facility] placed the Pacer. She is calling to get the MRI scheduled and she said that [facility] - Dr. Mason placed the Pace Maker about 5 months ago. Pls triage/advise. Thanks, MRI scheduling documented in this encounter Plan of Treatment Upcoming Encounters Date Type Department Care Team (Late st Contact Info) Description 04/11/2023 12:40 PM EST Office Visit Otolaryngology/Head & Neck/Facial Plastic Surgery [address] [place] [address] Joesph Yun MD [address] [place] [address] 04/18/2023 11:00 AM EST Office Visit Orthopaedics [facility] 132 [facility] [place] [address] Chava Huff PA-C [facility] [place] [address] 06/28/2023 8:00 AM EDT Office Visit [facility] [address] [place] [facility] [place] [address] Kalen Ribeiro MD [address] [place] [facility] [place] [address] 09/02/2023 9:00 AM EDT Office Visit Cardiology, [facility] [address] [place] [address] Halley Preston CRNP [address] [place] [address] 09/05/2023 10:30 AM EDT Rehab Services Voice Lab, [facility] [address] [place] [facility], [place] [address] Lance Samuels, [facility] D[facility]ER OPERATOR [address] [place] [address] 09/05/2023 11:00 AM EDT Appointment Radiology, [address], [place] [phone] 02/10/2024 10:00 AM EST Cardiac Studies Cardiology, [facility] 132 [facility] [place] [address] [place] Pacer [facility] [address] [place] [address] 02/13/2024 8:15 AM EST Cardiac Studies Cardiac Studies, [facility] [address] [place] [address] Health Maintenance Due Date Last Done Comments Zoster Vaccines (2 of 3) 07/17/2007 05/22/2007 COVID-19 Vaccine ( season) 2022 12/26/2021, 02/14/2021, 06/09/2020, Additional history exists DXA Scan 02/14/2023 02/14/2021, 06/10, 07/21/2014, Additional history exists Albumin/Creatinine Ratio 06/09/2023 06/08/2022, 05/11 CKD PHOS USE SMARTSET 68760 06/09/202305/11, 12/16/2020, 09/26/2020, Additional history exists GFR 09/16/2023 03/18/2023, 02/09, 11/20/2022, Additional history exists TSH 12/26/2023 12/25/2022, 05/11, 12/11/2021, Additional history exists CKD HGB USE SMARTSET 81835 03/18/202403/18, 03/18/2023, 11/20/2022, Additional history exists Depression Screening 04/02/2024 04/02/2023 DTaP,Tdap,and Td Vaccines (2 - Td or Tdap) 08/14/2024 08/14/2014, 01/25/2000 Pneumococcal Vaccine: 65+ Years Completed 01/06/2015, 08/19/2007 VITAMIN D LEVEL ONCE IN A LIFETIME-USE SMARTSET# [id number] Completed 12/11/2018, 07/07/2018, 10/06/2010 Influenza Vaccine (FLU [...] this encounter Medical Devices Implanted Type Area Civil Rights Representative Device Identifier Shelf Expiration Date Model / Serial / Lot Lead Tempo Temp Pacing - [id number] Implanted:Qty: 1 on 09/20/2020 by Dimitri Maya MD at [facility] [employer] [id number] 06/28/2021 [id number] / / [id number] documented as of this encounter Advance Directives [...] the patient have Health Care Power of Anesthetic Assistant? No Full Code 09/25/2020 6:44 PM 09/26/2020 [...] the patient have Health Care Power of Anesthetic Assistant? No Care Teams Spanish Professor Relationship Specialty Start Date End Date Kalen Ribeiro MD [address] [place] [address] PCP - General 12/15/01 documented as of this encounter
--- OUTSIDE RECORDS SUMMARY | 2023-06-01 11:13 | External Medical Summary | Summary of Care ---
Author Name Unknown Organization [facility] Address [address] [place] [address] Phone [phone] Care Team Providers Care Marketing Operations Intern Name Role Phone Kalen Ribeiro MD Primary Care Provider +1- [phone] Reason for Visit * Reason Onset Date Comments Order Request 04/09/2023 Chest xray Encounter Details Date Type Department Care Team (Late st Contact Info) Description 04/09/2023 Telephone [facility] [address] [place] [address] Kalen Ribeiro MD [address] [place] [address] Order Request (Chest xray) Allergies [...] aorta 07/14/2021 Atherosclerotic heart diseas e of [place] coronary artery with other forms of angina pectoris 07/14/2021 Age-related osteoporosis wit hout current pathological fracture 07/14/2021 History of pulmonary embolism 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 Thank you documented in this encounter Plan of Treatment Upcoming Encounters Date Type Department Care Team (Late st Contact Info) Description 04/11/2023 12:40 PM EST Office Visit Otolaryngology/Head & Neck/Facial Plastic Surgery [address] [facility] [place] [address] Joesph Yun MD [address] [facility] [place] [address] 04/18/2023 11:00 AM EST Office Visit Orthopaedics [facility] [address] [place] [address] Chava Huff PA-C [address] [place] [address] 04/30/2023 10:10 AM EST Appointment Radiology, [address] [address] 04/30/2023 11:00 AM EST Appointment Radiology, [address] [address] 06/28/2023 8:00 AM EDT Office Visit [facility] [address] [place] [address] Kalen Ribeiro MD [address] [place] [address] 09/02/2023 9:00 AM EDT Office Visit Cardiology, [facility] [address] [place] [address] Halley Preston CRNP [address] [place] [address] 09/05/2023 10:30 AM EDT Rehab Services Voice Lab, [facility] [address] [place] [address] Lance Samuels, [facility] SIGN LANGUAGE INTERPRETER [address] [place] [address] 09/05/2023 11:00 AM EDT Appointment Radiology, [facility] [address] [facility] [place] [address] 02/10/2024 10:00 AM EST Cardiac Studies Cardiology, [facility] [address] [facility] [place] [address] [place], Pacer Clinic [facility] [address] [place] [address] 02/13/2024 8:15 AM EST Cardiac Studies Cardiac Studies, [facility] [address] [place] [address] Health Maintenance Due Date Last Done Comments Zoster Vaccines (2 of 3) 07/17/2007 05/22/2007 COVID-19 Vaccine ( season) 2022 12/26/2021, 02/14/2021, 06/09/2020, Additional history exists DXA Scan 02/14/2023 02/14/2021, 06/10, 07/21/2014, Additional history exists Albumin/Creatinine Ratio 06/09/2023 06/08/2022, 05/11 CKD PHOS USE SMARTSET 97476 06/09/202305/11, 12/16/2020, 09/26/2020, Additional history exists GFR 09/16/2023 03/18/2023, 02/09, 11/20/2022, Additional history exists TSH 12/26/2023 12/25/2022, 05/11, 12/11/2021, Additional history exists CKD HGB USE SMARTSET 68829 03/18/202403/18, 03/18/2023, 11/20/2022, Additional history exists Depression Screening 04/02/2024 04/02/2023 DTaP,Tdap,and Td Vaccines (2 - Td or Tdap) 08/14/2024 08/14/2014, 01/25/2000 Pneumococcal Vaccine: 65+ Years Completed 01/06/2015, 08/19/2007 VITAMIN D LEVEL ONCE IN A LIFETIME-USE SMARTSET# 26581 Completed 12/11/2018, 07/07/2018, 10/06/2010 Influenza Vaccine (FLU [...] this encounter Medical Devices Implanted Type Area Sod Stripper Device Identifier Shelf Expiration Date Model / Serial / Lot Lead Tempo Temp Pacing - [id number] Implanted:Qty: 1 on 09/20/2020 by Dimitri Maya MD at [facility] [employer] [id number] 06/28/2021 [id number] / / [id number] documented as of this encounter Advance Directives [...] the patient have Health Care Power of Bowling Ball Grader? No Full Code 09/25/2020 6:44 PM 09/26/2020 [...] the patient have Health Care Power of Bowling Ball Grader? No Care Teams Marketing Operations Intern Relationship Specialty Start Date End Date Kalen Ribeiro MD [address] [place] [address] PCP - General 12/15/01 documented as of this encounter
--- OUTSIDE RECORDS SUMMARY | 2023-06-01 11:13 | External Medical Summary | Summary of Care ---
Author Name Unknown Organization [facility] [address] [place] [address] Phone [phone] Care Team Providers Care Coiled Coil Inspector Name Role Phone Kalen Ribeiro MD Primary Care Provider +1- [phone] Reason for Referral * Evaluate & Treat - Unlimited Visits (Within 10 days (routine)) - Authorized Specialty Diagnoses / Procedures Referred By Nithin regan Referred To Contact Neurology Diagnoses Vocal cord paresis Hoarse Oropharyngeal dysphagia Vocal cord atrophy Joesph Yun MD [address] [place] [address] Referral ID Status Reason Start Date Expiration Date Visits Requested Visits Authorized [id number] Authorized Specialty Services Required 04/11/2023 999 999 Question Answer Referral Priority Within 10 days (routine) Where should this appointment be scheduled? [facility] NEUROLOGY REFERRAL QUESTIONS Stroke Comments Acute onset dysphagia 03/13/2023 with vocal paresis. Still awaiting MRI brain. Prior MRI 2021 microvascular disease Reason for Visit * Reason Comments NEW PATIENT Left vocal cord para lized having difficulty swallowing Encounter Details Date Type Department Care Team (Late st Contact Info) Description 04/11/2023 12:40 PM EST Office Visit Otolaryngology/Head & Neck/Facial Plastic Surgery [address] [place] [address] Joesph Yun MD [address] [place] [address] Vocal cord paresis*; Hoarse; Oropharyngeal dysphagia; Vocal cord atrophy Allergies Active Allergy Reactions Criticality Noted Date [...] aorta 07/14/2021 Atherosclerotic heart diseas e of [place] coronary artery with other forms of angina pectoris 07/14/2021 Age-related osteoporosis wit hout current pathological fracture 07/14/2021 History of pulmonary embolism 06/08/2021 care home current use of anticoagulant therapy 1 04/12/2020 [...] Sign Reading Time Taken Comments Blood Pressure 110/70 04/11/2023 12:55 PM EST Pulse 71 04/11/2023 12:55 PM EST Temperature 36.6 C (97.9 F) 04/11/2023 12:[address] Respiratory Rate 18 04/11/2023 12:55 PM EST Oxygen Saturation - - Inhaled Oxygen Concentration - - Weight 47.9 kg (105 lb 8 oz) 04/11/2023 12:55 PM EST Height 143.8 cm (4' 8.6") 04/11/2023 12:55 PM ES T Body Mass Index 23.15 04/11/2023 12:55 PM EST documented in this encounter Functional [...] as of this encounter Progress Notes * Joesph Yun MD - 04/11/2023 12:47 PM EST Images from the original note were not included. Otolaryngology - Head & Neck Surgery Chief complaint: hoarseness HPI: This is a 82 year old patient sent to me in further evaluation of this problem by Kalen Ribeiro MD who developed new onset symptoms about 4 weeks ago with hoarseness, mucus sensation in her throat and was not able to chew and swallow that evening. Evaluation with Dr. Samuels was concerning for possible left vocal paresis. Since that time she's had some weight loss but supplementing withprotein shakes. She was seen by her PCP [...] multilevel degenerative changes of the upper cervical spine. ENT Specialty Exam: General: Well developed, well nourished Head: Normocephalic, atraumatic Face palpation: No sinus tenderness Neck: Supple, no lymphadenopathy. Midline trachea, no crepitus. Thyroid: No thyromegaly or mass palpable. Salivary glands: No masses or tenderness. Neurologic: Face symmetric, cranial nerves II-XII grossly intact. Except CN Voice: Mildly hoarse voice. Ear: Otoscopic exam shows canals patent, tympanic membranes intact with no fluid. Nares: Grossly patent, no gross discharge. Septum intact. Oral cavity: Tongue, buccal mucosa, and floor of mouth with no lesions. Posterior oropharynx: No lesions or posterior pharyngeal drainage. Larynx: Mirror evaluation insufficient to visualize secondary to prominent gag. Vitals: Blood pressure, pulse rate and weight as noted in the medical record. Eyes: Normal conjunctivae and lids, normal pupils and irises. EOMs intact. Respiratory: Normal respiratory effort with no gross use of accessory muscles. Cardiovascular: Normal carotid pulses bilaterally. Musculoskeletal: Normal gait. Extremities: No cyanosis, clubbing or edema. Skin: No rashes, lesions or ulcers on the head or neck. Psychiatric: Normal judgement and insight. Normal affect. Procedure: Flexible laryngoscopy with videostroboscopy Indications: hoarseness, cough or dysphagia insufficient to visualize with mirror secondary to prominent gag. Procedure in detail: Examination was conducted with a flexible endoscope after spraying with 2% lidocaine and oxymetazoline. The microphone was used to trigger the Xenon stroboscopic light source. - Nasal cavity - no pus or polyps noted. Mild nasal congestion. Septum intact deviated to the left - Nasopharynx - no evidence of mass or lesion. - Pharynx/Hypopharynx - No lesions in the pyriforms, epiglottis or base of tongue. Larynx rotated to the right right posteriorly, left arytenoid foreshortened, L>R pyriform secretions, decreased laryngeal sensation at the AEF's and glottal inlet able to pass the scope to the subglottis, with sugg estion of elliptical cricoid cartilage. Clear mucus seen at the glottal inlet. - Larynx - mild interarytenoid edema, no erythema. -Vocal folds - left vocal paresis with 50% reduced briskness to the adductory move on phonation compared to the right, and right with good mobility of the arytenoids noted, atrophic membranous vocal folds bilaterally. - Intact mucosal wave, good phase symmetry, and mid gap with no phase closure. 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 Speech/swallowing therapy and evaluation is medically necessary and standard of care, which will becoordinated through my office to include FEES Follow up in 3-4 months or sooner as needed Joesph Yun MD PhD FACS documented in this encounter Plan of Treatment Upcoming Encounters Date Type Department Care Team (Late st Contact Info) Description 04/18/2023 11:00 AM EST Office Visit Orthopaedics [facility] [address] [facility] [place] [address] Chava Huff PA-C [address] [place] [address] 04/30/2023 10:10 AM EST Appointment Radiology, [address] [phone] 04/30/2023 11:00 AM EST Appointment Radiology, [address] [address] 06/28/2023 8:00 AM EDT Office Visit [facility] [address] [place] [facility] [address] Kalen Ribeiro MD [address] [place] [address] 09/02/2023 9:00 AM EDT Office Visit Cardiology, [facility] [address] [facility] [place] [address] Halley Preston CRNP [address] [place] [address] 09/05/2023 10:30 AM EDT Rehab Services Voice Lab, [address] [address] Lance Samuels, [facility] [address] [facility] [place] [address] 09/05/2023 11:00 AM EDT Appointment Radiology, [address] [place] [address] 02/10/2024 10:00 AM EST Cardiac Studies Cardiology, [facility] [address] [place] [address] [facility] [address] [place] [address] 02/13/2024 8:15 AM EST Cardiac Studies Cardiac Studies, [facility] [address] [place] [address] Scheduled Referrals Name Type Priority Associated Diagnoses Orde r Schedule NEUROLOGY REFERRAL OP Referral Within 10 days (routine) Vocal cord paresis Hoarse Oropharyngeal dysphagia Vocal cord atrophy Ordered: 04/11/2023 Health Maintenance Due Date Last Done Comments Zoster Vaccines (2 of 3) 07/17/2007 05/22/2007 COVID-19 Vaccine ( season) 2022 12/26/2021, 02/14/2021, 06/09/2020, Additional history exists DXA Scan 02/14/2023 02/14/2021, 09/2020, 07/02/2017, Additional history exists Albumin/Creatinine Ratio 06/09/2023 06/08/2022, 05/11 CKD PHOS USE SMARTSET 94537 06/09/202305/11, 12/16/2020, 09/26/2020, Additional history exists GFR 10/09/2023 04/10/2023, 10/2023, 03/06/2023, Additional history exists TSH 12/26/2023 12/25/2022, 05/11, 12/11/2021, Additional history exists Depression Screening 04/02/2024 04/02/2023 CKD HGB USE SMARTSET 50314 04/10/202404/10, 03/18/2023, 03/18/2023, Additional history exists DTaP,Tdap,and Td Vaccines (2 - Td or Tdap) 08/14/2024 08/14/2014, 01/25/2000 Pneumococcal Vaccine: 65+ Years Completed 01/06/2015, 08/19/2007 VITAMIN D LEVEL ONCE IN A LIFETIME-USE SMARTSET# [id number] Completed 12/11/2018, 07/07/2018, 10/06/2010 Influenza Vaccine (FLU [...] encounter Medical Devices Implanted Type Area Director Of Retail Merchandising Device Identifier Shelf Expiration Date Model / Serial / Lot Lead Tempo Temp Pacing - [id number] Implanted:Qty: 1 on 09/20/2020 by Dimitri Maya MD at [facility] [place] [employer] [id number] 06/28/2021 [id number] / / [id number] documented as of this encounter Visit Diagnoses Diagnosis Vocal cord paresis- Primary Paralysis of vocal cords or larynx, unspecified Hoarse Dysphonia Oropharyngeal dysphagia Dysphagia, oropharyngeal phase Vocal cord atrophy Other diseases of vocal cords documented in this encounter Advance Directives Latest [...] the patient have Health Care Power of International Account Manager? No Full Code 09/25/2020 6:44 PM [...] the patient have Health Care Power of International Account Manager? No Care Teams Coiled Coil Inspector Relationship Specialty Start Date End Date Kalen Ribeiro MD [address] [place] [address] PCP - General 12/15/01 documented as of this encounter
--- OUTSIDE RECORDS SUMMARY | 2023-06-01 11:13 | External Medical Summary | Summary of Care ---
Author Name Unknown Organization [facility] Address [address] [place] [address] Phone [phone] Care Team Providers Care Elementary Ell Teacher Name Role Phone Kalen Ribeiro MD Primary Care Provider +1- [phone] Reason for Visit * Reason Comments Follow Up Encounter Details Date Type Department Care Team ([facility] st Contact Info) Description 04/11/2023 11:00 AM EST Rehab Services Voice Lab, [facility] [address] [place], [place] [id number] Shae Izquierdo, [facility]-VEGETABLE LOADER MACHINE OPERATOR [address] [place] [address] Arrived Allergies Active Allergy Reactions Criticality Noted Date [...] aorta 07/14/2021 Atherosclerotic heart diseas e of [place] coronary artery with other forms of angina pectoris 07/14/2021 Age-related osteoporosis wit hout current pathological fracture 07/14/2021 History of pulmonary 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 1 04/12/2020 [...] 30 Mcg, IM, 12 yrs and above ([employer]) 12/26/2021 Pneumococcal Conjugate Vacc, 13 Valent (Prevnar) [...] 04/18/2023 11:00 AM EST Office Visit Orthopaedics [facility] [address] [place] [address] Chava Huff PA-C [address] [place] [address] 04/30/2023 10:10 AM EST Appointment Radiology, [address] [address] 04/30/2023 11:00 AM EST Appointment Radiology, [address] [address] 06/28/2023 8:00 AM EDT Office Visit [facility] [address] [place] [address] Kalen Ribeiro MD [address] [place] [address] 08/08/2023 2:20 PM EDT Office Visit Otolaryngology/Head & Neck/Facial Plastic Surgery [address] [place] [address] Joesph Yun MD [address] [place] [address] 09/02/2023 9:00 AM EDT Office Visit Cardiology, [facility] [address] [place] [address] Halley Preston CRNP [address] [place] [address] 09/05/2023 10:30 AM EDT Rehab Services Voice Lab, [facility] [address] [place] [address] Lance Samuels, [facility]-VEGETABLE LOADER MACHINE OPERATOR [address] [place] [address] 09/05/2023 11:00 AM EDT Appointment Radiology, [facility] [address] [facility] [place] [address] 02/10/2024 10:00 AM EST Cardiac Studies Cardiology, [facility] 132 [facility] [place] [address] [place], Pacer Clinic [facility] [address] [facility] [place] [address] 02/13/2024 8:15 AM EST Cardiac Studies Cardiac Studies, [facility] [address] [facility] [place] [address] Health Maintenance Due Date Last Done Comments Zoster Vaccines (2 of 3) 07/17/2007 05/22/2007 COVID-19 Vaccine ( season) 2022 12/26/2021, 02/14/2021, 06/09/2020, Additional history exists DXA Scan 02/14/2023 02/14/2021, 09/2020, 07/02/2017, Additional history exists Albumin/Creatinine Ratio 06/09/2023 06/08/2022, 05/11 CKD PHOS USE SMARTSET 78376 06/09/202305/11, 12/16/2020, 09/26/2020, Additional history exists GFR 10/09/2023 04/10/2023, 10/2023, 03/06/2023, Additional history exists TSH 12/26/2023 12/25/2022, 05/11, 12/11/2021, Additional history exists Depression Screening 04/02/2024 04/02/2023 CKD HGB USE SMARTSET 53953 04/10/202404/10, 03/18/2023, 03/18/2023, Additional history exists DTaP,Tdap,and Td Vaccines (2 - Td or Tdap) 08/14/2024 08/14/2014, 01/25/2000 Pneumococcal Vaccine: 65+ Years Completed 01/06/2015, 08/19/2007 VITAMIN D LEVEL ONCE IN A LIFETIME-USE SMARTSET# 39146 Completed 12/11/2018, 07/07/2018, 10/06/2010 Influenza Vaccine (FLU [...] this encounter Medical Devices Implanted Type Area Frequency Checker Device Identifier Shelf Expiration Date Model / Serial / Lot Lead Tempo Temp Pacing - [id number] Implanted:Qty: 1 on 09/20/2020 by Dimitri Maya MD at [facility] [employer] [id number] 06/28/2021 [id number] / / [id number] documented as of this encounter Advance Directives [...] the patient have Health Care Power of Prompt Care Rn? No Full Code 09/25/2020 6:44 PM 09/26/2020 [...] the patient have Health Care Power of Prompt Care Rn? No Care Teams Elementary Ell Teacher Relationship Specialty Start Date End Date Kalen Ribeiro MD [address] [place] [address] PCP - General 12/15/01 documented as of this encounter
--- OUTSIDE RECORDS SUMMARY | 2023-06-01 11:13 | External Medical Summary | Summary of Care ---
Author Name Unknown Organization [facility] Address [address] [place] [address] Phone [phone] Care Team Providers Care Shear Operator Automatic Name Role Phone Kalen Ribeiro MD Primary Care Provider +1- [phone] Reason for Visit * Reason Onset Date Comments Order Request 04/09/2023 Chest xray Encounter Details Date Type Department Care Team (Late st Contact Info) Description 04/09/2023 Telephone [facility] [address] [place] [address] Kalen Ribeiro MD [address] [place] [address] Order Request (Chest xray) Allergies [...] aorta 07/14/2021 Atherosclerotic heart diseas e of [place] coronary artery with other forms of angina pectoris 07/14/2021 Age-related osteoporosis wit hout current pathological fracture 07/14/2021 History 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 1 04/12/2020 [...] encounter Miscellaneous Notes * Telephone Encounter - Adriane Adkins CCMA [...] Otolaryngology/Head & Neck/Facial Plastic Surgery [address] [facility] [place] [address] Joesph Yun MD [address] [place] [facility] [place] [address] 04/18/2023 11:00 AM EST Office Visit Orthopaedics [facility] 132 [facility] [place] [address] Chava Huff PA-C [address] [place] [address] 04/30/2023 10:10 AM EST [address], [address] [place] [address] 04/30/2023 11:00 AM EST App[address], [address] [place] [address] 06/28/2023 8:00 AM EDT Office Visit [place] [address] [facility] [address] Kal[facility] [address] [facility] [address] 09/02/2023 9:00 AM EDT Office Visit Cardiology, [facility] 132 [facility] [place] [address] Halley Preston CRNP 132 [facility] [place] [address] 09/05/2023 10:30 AM EDT Rehab Services Voice Lab, [facility] [address] [place] [address] Lance Samuels, [facility]BEACH EXPERT 132 [facility] [place] [address] 09/05/2023 11:00 AM EDT Appointment Radiology, [facility] [address] 02/10/2024 10:00 AM EST Cardiac Studies Cardiology, [facility] 132 [facility] [place] [address] [facility] 132 [facility] [place] [address] 02/13/2024 8:15 AM EST Cardiac Studies Cardiac Studies, [facility] [address] [facility] [place] [address] Health Maintenance Due Date Last Done Comments Zoster Vaccines (2 of 3) 07/17/2007 05/22/2007 COVID-19 Vaccine ( season) 2022 12/26/2021, 02/14/2021, 06/09/2020, Additional history exists DXA Scan 02/14/2023 02/14/2021, 06/10, 07/21/2014, Additional history exists Albumin/Creatinine Ratio 06/09/2023 06/08/2022, 05/11 CKD PHOS USE SMARTSET 77815 06/09/202305/11, 12/16/2020, 09/26/2020, Additional history exists GFR 09/16/2023 03/18/2023, 1209/2022, 11/20/2022, Additional history exists TSH 12/26/2023 12/25/2022, 05/11, 12/11/2021, Additional history exists CKD HGB USE SMARTSET 83071 03/18/202403/18, 03/18/2023, 11/20/2022, Additional history exists Depression Screening 04/02/2024 04/02/2023 DTaP,Tdap,and Td Vaccines (2 - Td or Tdap) 08/14/2024 08/14/2014, 01/25/2000 Pneumococcal Vaccine: 65+ Years Completed 01/06/2015, 08/19/2007 VITAMIN D LEVEL ONCE IN A LIFETIME-USE SMARTSET# 57838 Completed 12/11/2018, 07/07/2018, 10/06/2010 Influenza Vaccine (FLU [...] this encounter Medical Devices Implanted Type Area Jde Developer Device Identifier Shelf Expiration Date Model / Serial / Lot Lead Tempo Temp Pacing - [id number] Implanted:Qty: 1 on 09/20/2020 by Dimitri Maya MD at [facility] [employer] [id number] 06/28/2021 [id number] / / [id number] documented as of this encounter Advance Directives [...] the patient have Health Care Power of Non Food Receiving Clerk? No Full Code 09/25/2020 6:44 PM 09/26/2020 [...] the patient have Health Care Power of Non Food Receiving Clerk? No Care Teams Shear Operator Automatic Relationship Specialty Start Date End Date Kalen Ribeiro MD [address] [place] [address] PCP - General 12/15/01 documented as of this encounter
--- OUTSIDE RECORDS SUMMARY | 2023-06-01 11:14 | External Medical Summary | Summary of Care ---
Author Name Unknown Organization [facility] Address [address] [place] [address] Phone [phone] Care Team Providers Care Laborer/Key Man Name Role Phone Kalen Ribeiro MD Primary Care Provider [phone]- [phone] Reason for Visit * Auth/Cert Specialty Diagnoses / Procedures Referred By Nithin t Referred To Contact Diagnoses Dysphagia Dysphagia [R13.10] Procedures EGD, FLEXIBLE, DIAGNOSTIC ESOPHAGOGASTRODUODENOSCOPY (EGD), FLEXIBLE, TRANSORAL, DIAGNOSTIC Referral ID Status Reason Start Date Expiration Date Visits Re quested Visits Authorized [id number] Encounter Details Date Type Department Care Team (Latest Contact Info) Description 04/05/2023 9:53 AM EST - 04/05/2023 1:11 PM EST Hospital Encounter [facility], Operating Room, [facility] - 4th Floor [address] [place] [address] Manjit Webb MD [address] [place] [address] Upper GI Endoscopy Discharge Disposition: Home - Self Care Allergies Active Allergy Reactions Criticality Noted Date Comments Heparin 10/07/2020 Concern for HIT documented as of this encounter (statuses as of 04/06/2023) Medications Medication Sig Dispensed Refills Start Date [...] as of this encounter (statuses as of 04/06/2023) Active Problems Problem Noted Date Diagnosed Date [...] aorta 07/14/2021 Atherosclerotic heart diseas e of [place] coronary artery with other forms of angina pectoris 07/14/2021 Age-related osteoporosis wit hout current pathological fracture 07/14/2021 History of pulmonary embolism 06/08/2021 jail current use of anticoagulant therapy 1 04/12/2020 [...] as of this encounter (statuses as of 04/06/2023) Resolved Problems Problem Noted Date Diagnosed Date [...] as of this encounter (statuses as of 04/06/2023) Immunizations Name Administration Dates Next Due COVID-19 [...] Sign Reading Time Taken Comments Blood Pressure 101/60 04/05/2023 12:55 PM EST Pulse 64 04/05/2023 12:55 PM EST Temperature 36.3 C (97.3 F) 04/05/2023 12:[address] Respiratory Rate 18 04/05/2023 12:55 PM EST Oxygen Saturation 94% 04/05/2023 12:55 PM EST Inhaled Oxygen Concentration - - Weight 49.4 kg (109 lb) 04/05/2023 10:12 AM EST Height 145.4 cm (4' 9.24") 04/05/2023 10:[address] Body Mass Index 23.39 04/05/2023 10:12 AM EST documented in this encounter Functional [...] No 10/10/2020 documented as of this encounter H&P Notes * Manjit Webb MD - 04/05/2023 11:18 AM EST Endoscopy Pre-Procedure Assessment Name: Marie Nieves Date: 04/05/2023 Time: 11:18 AM Procedure(s): Upper GI Endoscopy; with Indication(s) of dysphagia or odynophagia Endoscopy Pre-Procedure Assessment: Prior to the procedure, the patient was identified. The patient's history, medications and allergies were reviewed as per the Anesthesia Assessment. The patient is competent. The risks and benefits of the proposed procedure and the planned sedation were discussed with the patient. All questions were answered and informed consent for the procedure was obtained. BP 131/73 | Pulse 68 | Temp 36.6 C (97.9 F) (Tympanic) | Resp 20 | Ht 1.454 m (4' 9.24") | Wt 49.4 kg (109 lb) | SpO2 98% | BMI 23.39 kg/m | BSA 1.41 m Review of patient's allergies indicates: Allergen Reactions Heparin Concern for HIT Prior to Admission medications Medication Sig Last Dose Discont. Lisinopril 2.5 MG Oral Tablet (Prinivil) Take 1 Tablet by mouth in the morning. 04/04/2023 Atorvastatin Calcium 20 MG Oral Tablet (Lipitor) TAKE 1 TABLET BY MOUTH ONCE DAILY 04/05/2023 Famotidine 20 MG Oral Tablet (Pepcid) Take 1 Tablet by mouth in the morning and 1 Tablet before bedtime. 04/05/2023 Levothyroxine Sodium 100 MCG Oral Tablet (Levoxyl) Take 1 Tablet by mouth in the morning. (at least30 min prior to breakfast or other meds). 04/05/2023 Furosemide 20 MG Oral Tablet (Lasix) TAKE ONE TABLET BY MOUTH DAILY 04/04/2023 Rocklatan 0.02-0.005 % Ophthalmic Solution (Netarsudil-Latanoprost) Instill into eye . 04/05/2023 Biotin 5 MG Oral Capsule Take 2 Capsules by mouth in the morning. 04/04/2023 Aspirin 81 MG Oral Tablet Chewable Take 1 Tab by mouth daily. 04/04/2023 Acetaminophen ER 650 MG Oral Tablet Extended Release Take 1 Tablet by mouth every 8 hours as neededfor Pain, Mild. Past Week DORZOLAMIDE HCL-TIMOLOL MAL 22.3-6.8 MG/ML OP SOLN Instill 1 Drop into eye in the morning and 1 Drop before bedtime. 04/04/2023 VITAMIN B-12 500 MCG OR TABS 2 Tablets. 04/04/2023 Pantoprazole Sodium 40 MG Oral Tablet Delayed Release (Protonix) TAKE 1 TABLET BY MOUTH ONCE DAILY Patient not taking: Reported on 03/25/2023 Amoxicillin 500 MG Oral Capsule (Amoxil) Take 4 Caps by mouth once as needed (prior to dental work)for up to 1 dose. Take 4 capsules 1 hour prior to any dental work Patient not taking: Reported on 03/25/2023 Physical Exam: Mental Status Examination: alert and oriented. Airway Examination: normal oropharyngeal airway and neck mobility. Respiratory Examination: clear to auscultation. CV Examination: Regular rate and rythm, no murmurs. ASA Grade: III - A patient with severe systemic disease. After reviewing the risks and benefits, the patient was deemed in satisfactory condition to undergothe procedure. The anesthesia plan was to use sedation. Patient was explained in detail regarding risks, benefits, limitations and alternatives of the above endoscopic procedure. Risks of intravenous sedation used for procedure were also explained. Risks include, but not limited to perforation, bleeding, infection, respiratory distress, cardiac arrest and . Risk of acute pancreatitis and necrosis if ERCP is done. Patient is also aware about the possibility of missed lesion. Patient's questions were answered. The patient verbalized understandingthe information and agreed to undergo the procedure. Discussed with the patient that he/she is at an explicit higher risk for complications in comparison to other patients Manjit Webb MD 04/05/2023 documented in this encounter Procedure Notes * Kalen Ribeiro MD - 04/05/2023 11:31 AM ESTAssociated Order(s): UPPER GI ENDOSCOPY [facility] Patient Name: Marie Nieves Procedure Date: 04/05/2023 11:31 AM Date of : 1940 Admit Type: Outpatient Note Status: Finalized Date of : 1940 Admit Type: Outpatient Age: 82 Room: OR 5 Gender: Female Note Status: Finalized Procedure: Upper GI endoscopy Indications: Dysphagia Providers: Manjit Webb MD (Doctor), Raza Colon DO (Fellow), Marie Reyes RN Referring MD: Kalen Ribeiro MD Medicines: Propofol per Anesthesia Complications: No immediate complications. Procedure: Pre-Anesthesia Assessment: - Prior to the procedure, a History and Physical was performed, and patient medications, allergies and sensitivities were reviewed. The patient's tolerance of previous anesthesia was reviewed. - The risks and benefits of the procedure and the sedation options and risks were discussed with the patient. All questions were answered and informed consent was obtained. - Patient identification and proposed procedure were verified prior to the procedure by the physician and the nurse. The procedure was verified in the procedure room. - Pre-procedure physical examination revealed no contraindications to sedation. - The supervising physician was present for the entire procedure from scope insertion until scope withdrawal. After obtaining informed consent, the endoscope was passed under direct vision. All instruments were visually inspected immediately before and after removal from the patient to ensure they are fully intact. Throughout the procedure, the patient's blood pressure, pulse, and oxygen saturations were monitored continuously. The was introduced through the mouth, and advanced to the second part of duodenum. The upper GI endoscopy was accomplished without difficulty. The patient tolerated the procedure well. Findings & Specimens: No endoscopic abnormality was evident in the esophagus to explain the patient's complaint of dysphagia. It was decided, however, to proceed with dilation of the entire esophagus. A guidewire was placed and the scope was withdrawn. Dilation was performed with a Savary dilator with no resistance at 15 mm. The dilation site was examined following endoscope reinsertion and showed no bleeding, mucosal tear or perforation. The entire examined stomach was normal. The duodenal bulb and second portion of the duodenum were normal. Impression: - No endoscopic esophageal abnormality to explain patient's dysphagia. Esophagus dilated to 15 mm. - Normal stomach. - Normal duodenal bulb and second portion of the duodenum. - No specimens collected. Recommendation: - Discharge patient to home. - Return to referring physician. COMMENT: The patient's dysphagia is oropharyngeal. Manjit Webb MD 04/05/2023 11:55:04 AM This report has been signed electronically. Raza Colon DO Estimated Blood Loss: Estimated blood loss: none. documented in this encounter Nursing Notes * Mel Miranda RN - 04/05/2023 1:10 PM EST [place] [address] [facility] Discharge Note Name: Marie Nieves Date: 04/05/2023 Time: 1:10 PM Discharge Disposition: Home Responsible adult as escort home: yes Transport Mode: Wheelchair Accompanied by: staff To: Car Belongings with patient: Yes Patient meets criteria to be transferred or discharged. * Brianna Tirado RN - 04/05/2023 11:43 AM EST EGD with dilation completed. Sedated by VIOLIN TEACHER. See anesthesia record for VS and medications given. Pt tolerated procedure well with minimal gagging. Abd soft. Airway patent. Pt to recovery on L side with HOB elevated. Report to recovery room nurse. Bedside cleaning done Hallie Snyder RN. documented in this encounter Plan of Treatment Upcoming Encounters Date Type Department Care Team (Late st Contact Info) Description 04/11/2023 12:40 PM EST Office Visit Otolaryngology/Head & Neck/Facial Plastic Surgery [address] [place] [address] Joesph Yun MD [address] [place] [address] 04/18/2023 11:00 AM EST Office Visit Orthopaedics [facility] [address] [place] [address] Chava Huff PA-C [address] [place] [address] 06/28/2023 8:00 AM EDT Office Visit [facility] [address] [place] [address] Kalen Ribeiro MD [address] [place] [address] 09/02/2023 9:00 AM EDT Office Visit Cardiology, [facility] [address] [place] [address] Halley Preston CRNP [address] [place] [address] 09/05/2023 10:30 AM EDT Rehab Services Voice Lab, [address] [place] [id number] Lance Samuels, [facility] [address] [place] [address] 09/05/2023 11:00 AM EDT Appointment Radiology, [address] [place] [address] 02/10/2024 10:00 AM EST Cardiac Studies Cardiology, [facility] [address] [facility] [place] [address] [place] [address] [place] [address] 02/13/2024 8:15 AM EST Cardiac Studies Cardiac Studies, [facility] [address] [facility] [place] [address] Health Maintenance Due Date Last Done Comments Zoster Vaccines (2 of 3) 07/17/2007 05/22/2007 COVID-19 Vaccine ( season) 2022 12/26/2021, 02/14/2021, 06/09/2020, Additional history exists DXA Scan 02/14/2023 02/14/2021, 06/10, 07/21/2014, Additional history exists Albumin/Creatinine Ratio 06/09/2023 06/08/2022, 05/11 CKD PHOS USE SMARTSET 05817 06/09/202305/11, 12/16/2020, 09/26/2020, Additional history exists GFR 09/16/2023 03/18/2023, 02/09, 11/20/2022, Additional history exists TSH 12/26/2023 12/25/2022, 05/11, 12/11/2021, Additional history exists CKD HGB USE SMARTSET 80426 03/18/202403/18, 03/18/2023, 11/20/2022, Additional history exists Depression Screening 04/02/2024 04/02/2023 DTaP,Tdap,and Td Vaccines (2 - Td or Tdap) 08/14/2024 08/14/2014, 01/25/2000 Pneumococcal Vaccine: 65+ Years Completed 01/06/2015, 08/19/2007 VITAMIN D LEVEL ONCE IN A LIFETIME-USE SMARTSET# [id number] Completed 12/11/2018, 07/07/2018, 10/06/2010 Influenza Vaccine (FLU [...] this encounter Medical Devices Implanted Type Area Fishing Tool Supervisor Device Identifier Shelf Expiration Date Model / Serial / Lot Lead Tempo Temp Pacing - [id number] Implanted:Qty: 1 on 09/20/2020 by Dimitri Maya MD [place] [facility] [place] [employer] [id number] 06/28/2021 [id number] / / [id number] documented as of this encounter Procedures Procedure Name Priority Date/Time Associated Diagnosis Comments UPPER GI ENDOSCOPY 04/05/2023 11 :31 AM EST documented in this encounter Results * UPPER GI ENDOSCOPY (04/05/2023 11:31 AM EST) 04/05/2023 11:3 1 AM EST Narrative Procedure Note Kalen Ribeiro MD - 04/05/2023 11:31 AM EST [facility] Patient Name: Marie Nieves Procedure Date: 04/05/2023 11:31 AM Date of : 1940 Admit Type: Outpatient Note Status:Finalized Date of : 1940 Admit Type: Outpatient Age: 82 Room: OR 5 Gender: Female Note Status: Finalized Procedure: Upper GI endoscopy Indications: Dysphagia Providers: Manjit Webb MD (Doctor), Raza Colon DO(Fellow), Marie Reyes RN Referring MD: Kalen Ribeiro MD Medicines: Propofol per Anesthesia Complications: No immediate complications. Procedure: Pre-Anesthesia Assessment: - Prior to the procedure, a History and Physicalwas performed, and patient medications, allergies and sensitivities werereviewed. The patient's tolerance of previous anesthesia was reviewed. - The risks and benefits of the procedure and thesedation options and risks were discussed with the patient. All questions wereanswered and informed consent was obtained. - Patient identification and proposed procedurewere verified prior to the procedure by the physician and the nurse. The procedure wasverified in the procedure room. - Pre-procedure physical examination revealed nocontraindications to sedation. - The supervising physician was present for theentire procedure from scope insertion until scope withdrawal. After obtaining informed consent, the endoscope waspassed under direct vision. All instruments were visually inspected immediatelybefore and after removal from the patient to ensure they are fully intact. Throughoutthe procedure, the patient's blood pressure, pulse, and oxygen saturations weremonitored continuously. The was introduced through the mouth, and advanced to thesecond part of duodenum. The upper GI endoscopy was accomplished without difficulty.The patient tolerated the procedure well. Findings & Specimens: No endoscopic abnormality was evident in the esophagus to explain thepatient's complaint of dysphagia. It was decided, however, to proceed with dilation of the entireesophagus. A guidewire was placed and the scope was withdrawn. Dilation was performed with a Savary dilatorwith no resistance at 15 mm. The dilation site was examined following endoscope reinsertion and showedno bleeding, mucosal tear or perforation. The entire examined stomach was normal. The duodenal bulb and second portion of the duodenum were normal. Impression: - No endoscopic esophageal abnormality to explainpatient's dysphagia. Esophagus dilated to 15 mm. - Normal stomach. - Normal duodenal bulb and second portion of theduodenum. - No specimens collected. Recommendation: - Discharge patient to home. - Return to referring physician. COMMENT: The patient's dysphagia isoropharyngeal. Manjit Webb MD 04/05/2023 11:55:04 AM This report has been signed electronically. Raza Colon DO Estimated Blood Loss: Estimated blood loss: none. Kalen Ribeiro MD GASTRO UPPER documented in this encounter Administered Medications Inactive Administered Medications - up to 3 most recent administrations Medication Order MAR Action Action Date Dose Rate Site isolyte-S pH 7.4 infusion Intravenous, Plasma-LYTE 148, isolyte-S, and isolyte-S pH 7.4 are considered equivalent - including for MAR barcode scanning., CONTINUOUS, Starting on Sat04/05/23 at 1100, Until Sat04/05/23 at 1712, Pre-Op Restarted 04/05/2023 11:46 AM EST Continue from Pre-Op 04/05/2023 11:22 AM EST 10 mL/hr New Bag 04/05/2023 10:26 AM EST 1,000 mL 10 mL/hr documented in this encounter Active and Recently Administered Medications Times are shown in EST. Continuous Medication Order 04/03/2023 04/04/2023 04/05/2023 isolyte-S pH 7.4 infusion Intravenous, Plasma-LYTE 148, isolyte-S, and isolyte-S pH 7.4 are considered equivalent - including for MAR barcode scanning., CONTINUOUS, Starting on Sat04/05/23 at 1100, Until Sat04/05/23 at 1712, Pre-Op 1026 (New Bag - Prov ider: Mel Miranda RN)1122 (Continue from Pre-Op - Provider: Azucena Hoang CRNA)1145 (Paused - Provider: Azucena Hoang CRNA - Comment: Switch to gravity)1146 (Restarted - Provider: Azucena Hoang CRNA) documented in this encounter Advance Directives Latest [...] the patient have Health Care Power of Long Distance Operator? No Full Code 09/25/2020 6:44 PM [...] the patient have Health Care Power of Long Distance Operator? No Care Teams Laborer/Key Man Relationship Specialty Start Date End Date Kalen Ribeiro MD [address] [facility] [place] [address] PCP - General 12/15/01 documented as of this encounter
--- OUTSIDE RECORDS SUMMARY | 2023-06-01 11:14 | External Medical Summary | Summary of Care ---
Author Name Unknown Organization [facility] Address [address] [place] [address] Phone [phone] Care Team Providers Care Offset Pressman Name Role Phone Kalen Ribeiro MD Primary Care Provider +1- [phone] Reason for Visit * Reason Onset Date Comments Test Results 04/04/2023 Encounter Details Date Type Department Care Team (Late st Contact Info) Description 04/04/2023 Telephone Otolaryngology [facility] [address] [place] [address] Brandt Reyes PA-C [address] [place] [address] Test Results Allergies Active Allergy Reactions Criticality Noted Date Comments Heparin 10/07/2020 Concern for HIT documented as of this encounter (statuses as of 04/04/2023) Medications Medication Sig Dispensed Refills Start Date [...] as of this encounter (statuses as of 04/04/2023) Active Problems Problem Noted Date Diagnosed Date [...] aorta 07/14/2021 Atherosclerotic heart diseas e of [place] coronary artery with other forms of angina pectoris 07/14/2021 Age-related osteoporosis wit hout current pathological fracture 07/14/2021 History of pulmonary embolism 06/08/2021 skilled nursing current use of anticoagulant therapy 1 04/12/2020 [...] as of this encounter (statuses as of 04/04/2023) Resolved Problems Problem Noted Date Diagnosed Date [...] as of this encounter (statuses as of 04/04/2023) Immunizations Name Administration Dates Next Due COVID-19 [...] encounter Miscellaneous Notes * Telephone Encounter - Brandt Reyes PA-C - 04/04/2023 8:40 AM EST Outgoing call to pt's daughter, Suri. Wanted to follow up after her video swallow yesterday. She has been doing chin tuck maneuver and that has been helping out a lot. They are scheduled to see Dr. Yun 04/11/23 in [place]. Suri feels Marie left her appointment yesterday feeling very hopeful and in good spirits. She has been willing to try more foods and eat more since the appointment yesterday. They are aware of their appointment in [place]. They also have EGD tomorrow. No further needs at this time. Brandt Reyes PA-C documented in this encounter Plan of Treatment Upcoming Encounters Date Type Department Care Team (Latest Contact Info) Description 04/05/2023 11:15 AM EST Hospital Encounter OR [facility], Operating Room, [facility] - 4th Floor [address] [place] [address] Manjit Webb MD [address] [place] [address] 04/05/2023 11:15 AM EST - 04/05/2023 11:55 AM EST Surgery OR [facility], Operating Room, [facility] - [facility] [place] Floor [address] [place] [address] Manjit Webb MD [address] [address] ESOPHAGOGASTRODUODENOSCOPY (EGD), FLEXIBLE, TRANSORAL, DIAGNOSTIC 04/11/2023 12:40 PM EST Office Visit Otolaryngology/ Head & Neck/Facial Plastic Surgery [address] [facility] [place] [address] Joesph Yun MD [address] [facility] [place] [address] 04/18/2023 11:00 AM EST Office Visit Orthopaedics [facility] [address] [place] [address] Chava Huff PA-C [address] [address] 06/28/2023 8:00 AM EDT Office Visit [facility] [address] [facility], [place] [id number] Kalen Ribeiro MD [address] [place] [facility] [place] [address] 09/02/2023 9:00 AM EDT Office Visit Cardiology, [facility] [address] [place] [address] Halley Preston CRNP [address] [place] [address] 09/05/2023 10:30 AM EDT Rehab Services Voice Lab, [address] [address] Lance Samuels, [facility] [address] [facility] [place] [address] 09/05/2023 11:00 AM EDT Appointment Radiology, [address] [address] 02/10/2024 10:00 AM EST Cardiac Studies Cardiology, [facility] [address] [place] [address] [facility] [address] [place] [address] 02/13/2024 8:15 AM EST Cardiac Studies Cardiac Studies, [facility] [address] [place] [address] Scheduled Procedures Name Priority Associated Diagnoses Date/Ti me ESOPHAGOGASTRODUODENOSCOPY ( EGD), FLEXIBLE, TRANSORAL, DIAGNOSTIC Dysphagia 04/05/2023 11:15 AM EST Health Maintenance Due Date Last Done Comments Zoster Vaccines (2 of 3) 07/17/2007 05/22/2007 COVID-19 Vaccine (5 - season) 2022 12/26/2021, 02/14/2021, 06/09/2020, Additional history exists DXA Scan 02/14/2023 02/14/2021, 06/10, 07/21/2014, Additional history exists Albumin/Creatinine Ratio 06/09/2023 06/08/2022, 05/11 CKD PHOS USE SMARTSET 78920 06/09/202305/11, 12/16/2020, 09/26/2020, Additional history exists GFR 09/16/2023 03/18/2023, 02/09, 11/20/2022, Additional history exists TSH 12/26/2023 12/25/2022, 05/11, 12/11/2021, Additional history exists CKD HGB USE SMARTSET 91054 03/18/202403/18, 03/18/2023, 11/20/2022, Additional history exists Depression Screening 04/02/2024 04/02/2023 DTaP,Tdap,and Td Vaccines (2 - Td or Tdap) 08/14/2024 08/14/2014, 01/25/2000 Pneumococcal Vaccine: 65+ Years Completed 01/06/2015, 08/19/2007 VITAMIN D LEVEL ONCE IN A LIFETIME-USE SMARTSET# [id number] Completed 12/11/2018, 07/07/2018, 10/06/2010 Influenza Vaccine (FLU [...] this encounter Medical Devices Implanted Type Area Biofuels Manager Device Identifier Shelf Expiration Date Model / Serial / Lot Lead Tempo Temp Pacing - [id number] Implanted:Qty: 1 on 09/20/2020 by Dimitri Maya MD at [facility] [place] [employer] [id number] 06/28/2021 [id number] / / [id number] documented as of this encounter Advance Directives [...] the patient have Health Care Power of Recreation Manager? No Full Code 09/25/2020 6:44 PM [...] the patient have Health Care Power of Recreation Manager? No Care Teams Offset Pressman Relationship Specialty Start Date End Date Kalen Ribeiro MD [address] [place] [address] PCP - General 12/15/01 documented as of this encounter
--- OUTSIDE RECORDS SUMMARY | 2023-06-01 11:14 | External Medical Summary | Summary of Care ---
Author Name Unknown Organization [facility] Address [address] [place] [address] Phone [phone] Care Team Providers Care Maintenance Assistant Name Role Phone Kalen Ribeiro MD Primary Care Provider +1- [phone] Reason for Referral * Precert (Within 10 days (routine)) - Pending Review Specialty Diagnoses / Procedures Referred By Nithin regan Referred To Contact Radiology Diagnoses Oropharyngeal dysphagia Aspiration into airway, initial encounter Procedures MRI BRAIN WITH CONTRAST Kalen Ribeiro MD [address] [place] [address] Referral ID Status Reason Start Date Expiration Date V isits Requested Visits Authorized [id number] Pending Review 03/28/2023 999 999 Reason for Visit * Reason Onset Date Comments Test Results 03/28/2023 Encounter Details Date Type Department Care Team (Late st Contact Info) Description 03/28/2023 Telephone [facility] [address] [place] [address] Kalen Ribeiro MD [address], [place] [phone] Test Results Allergies Active Allergy Reactions Criticality Noted Date Comments Heparin 10/07/2020 Concern for HIT documented as of this encounter (statuses as of 04/01/2023) Medications Medication Sig Dispensed Refills Start Date [...] as of this encounter (statuses as of 04/01/2023) Active Problems Problem Noted Date Diagnosed Date [...] aorta 07/14/2021 Atherosclerotic heart diseas e of [place] coronary artery with other forms of angina pectoris 07/14/2021 Age-related osteoporosis wit hout current pathological fracture 07/14/2021 History of pulmonary embolism 06/08/2021 custodial current use of anticoagulant therapy 1 04/12/2020 [...] as of this encounter (statuses as of 04/01/2023) Resolved Problems Problem Noted Date Diagnosed Date [...] as of this encounter (statuses as of 04/01/2023) Immunizations Name Administration Dates Next Due COVID-19 [...] Date Recorded PHQ Adult Total Score 0 06/12/2022 Hunger Vital Sign Answer Date Recorded Worried About Running Out of Food in the Last Ye ar Never true 12/11/2018 Ran Out of Food in the Last Year Never true 12/11/2018 Sex and Gender Information Value Date Recorded [...] Telephone Encounter - Makayla Penny OSA - 04/01/2023 2:29 PM EST I called patient to schedule. Patient asked that I call her daughter, Suri, to schedule. While I was talking to Suri she got upset because she feels like there are all of these tests thatare being ordered and there are no answers at this point. She doesn't know why certain tests are being ordered and what good they are going to do since Marie is so weak. She can barely walk and can'teven eat baby food without choking. Suri's number is [phone]. Dr. Ribeiro: After we spoke, you asked to let you know where and when the EGD is scheduled. Patient is scheduled[place] [facility] at [facility] with Dr. Webb. 04/01/2023 * Telephone Encounter - Kalen Ribeiro MD - 03/28/2023 3:19 PM EST I had back from cardiology and pacemaker clinic that her pacemaker is fine for an MRI. Order placedand forwarded to scheduling. * Telephone Encounter - Lesley Roa LPN - 03/28/2023 2:07 PM EST Patient returned call. Informed of message. Verbalized understanding. * Telephone Encounter - Yari Xiong LPN - 03/28/2023 1:37 PM EST Left generic message on answering machine asking patient to return our call. * Telephone Encounter - Kalen Ribeiro MD - 03/28/2023 12:02 PM EST Please contact pt - looks like she is aware of the swallowing study results from ENT. Next steps - she is already scheduled for an EGD with gastroenterology. She should also see speech therapy - which ENT note indicates is ordered but I don't see the order, so I placed as well. Scheduling - please assist, if not already set up. Would also suggest that pt have an MRI of the brain to evaluate for a possible stroke contributing to swallowing problems. I am checking with cardiology about ability to get MRI with pacemaker. documented in this encounter Plan of Treatment Upcoming Encounters Date Type Department Care Team (Latest Contact Info) Description 04/03/2023 2:00 PM EST Rehab Services Speech Therapy, [place] [id number] [place] [address] Tarah Wiggins, [facility] [address] [place] [address] 04/05/2023 1:11 PM EST Hospital Encounter OR [facility], Operating Room, [facility] - 4th Floor [address] [place] [address] Manjit Webb MD [address] [place] [address] 04/05/2023 1:11 PM EST - 04/05/2023 1:51 PM EST Surgery OR [facility], Operating Room, [facility] - 4th Floor [address] [place] [address] Manjit Webb MD [address] [place] [address] ESOPHAGOGASTRODUODENOSCOPY (EGD), FLEXIBLE, TRANSORAL, DIAGNOSTIC 04/18/2023 11:00 AM EST Office Visit Orthopaedics [facility] [address] [place] [address] Chava Huff PA-C [address] [place] [address] 06/28/2023 8:00 AM EDT Office Visit [facility] [address] [place] [phone] Kalen Ribeiro MD [address] [place] [address] 09/02/2023 9:00 AM EDT Office Visit Cardiology, [facility] [address] [place] [address] Halley Preston CRNP [address] [place] [address] 09/05/2023 10:30 AM EDT Rehab Services Voice Lab, [facility] [address] [facility] [place] [address] Lance Samuels, [facility] [address] [place] [address] 09/05/2023 11:00 AM EDT Appointment Rad[facility], [facility] [phone] 02/10/2024 10:00 AM EST Cardiac Studies Cardiology, [facility] [address] [place] [address] [facility] [address] [place] [address] 02/13/2024 8:15 AM EST Cardiac Studies Cardiac Studies, [address] [place] [address] Scheduled Orders Name Type Priority Associated Diagnoses Orde r Schedule SPEECH/HEARING THERAPY, INDIVIDUAL Procedures Routine Oropharyngeal dysphagia Aspiration into airway, initial encounter Ordered: 03/28/2023 MRI BRAIN WITH CONTRAST Medical Imaging Routine Oropharyngeal dysphagia Aspiration into airway, initial encounter Expected: 03/28/2023, Expires: 04/28/2024 Scheduled Procedures Name Priority Associated Diagnoses Date/Ti me ESOPHAGOGASTRODUODENOSCOPY ( EGD), FLEXIBLE, TRANSORAL, DIAGNOSTIC Dysphagia 04/05/2023 1:11 PM EST Health Maintenance Due Date Last Done Comments Zoster Vaccines (2 of 3) 07/17/2007 05/22/2007 COVID-19 Vaccine ( season) 2022 12/26/2021, 02/14/2021, 06/09/2020, Additional history exists DXA Scan 02/14/2023 02/14/2021, 06/10, 07/21/2014, Additional history exists Albumin/Creatinine Ratio 06/09/2023 06/08/2022, 05/11 CKD PHOS USE SMARTSET 19599 06/09/202305/11, 12/16/2020, 09/26/2020, Additional history exists Depression Screening 06/13/2023 06/12/2022 GFR 09/16/2023 03/18/2023, 02/09, 11/20/2022, Additional history exists TSH 12/26/2023 12/25/2022, 05/11, 12/11/2021, Additional history exists CKD HGB USE SMARTSET 52169 03/18/202403/18, 03/18/2023, 11/20/2022, Additional history exists DTaP,Tdap,and Td Vaccines (2 - Td or Tdap) 08/14/2024 08/14/2014, 01/25/2000 Pneumococcal Vaccine: 65+ Years Completed 01/06/2015, 08/19/2007 VITAMIN D LEVEL ONCE IN A LIFETIME-USE SMARTSET# [id number] Completed 12/11/2018, 07/07/2018, 10/06/2010 Influenza Vaccine (FLU [...] this encounter Medical Devices Implanted Type Area Seo Analyst Device Identifier Shelf Expiration Date Model / Serial / Lot Lead Tempo Temp Pacing - [id number] Implanted:Qty: 1 on 09/20/2020 by Dimitri Maya MD at [facility] [employer] [id number] 06/28/2021 [id number] / / [id number] documented as of this encounter Visit Diagnoses Diagnosis Oropharyngeal dysphagia- Primary Dysphagia, oropharyngeal phase Aspiration into airway, initial encounter Dysphagia Dysphagia, unspecified documented in this encounter Advance Directives Latest [...] the patient have Health Care Power of Accounts Manager? No Full Code 09/25/2020 6:44 PM [...] the patient have Health Care Power of Accounts Manager? No Care Teams Maintenance Assistant Relationship Specialty Start Date End Date Oesterling, Kalen R, MD [address] [facility] [place] [phone] PCP - General 12/15/01 documented as of this encounter
--- OUTSIDE RECORDS SUMMARY | 2023-06-01 11:14 | External Medical Summary | Summary of Care ---
Author Name Unknown Organization [facility] Address [address] [place] [address] Phone [phone] Care Team Providers Care Crocheter Name Role Phone Kalen Ribeiro MD Primary Care Provider +1- [phone] Encounter Details Date Type Department Care Team (Late st Contact Info) Description 04/04/2023 Referral Triage Care Coordination and Integration [address], [place] [phone] Rhina Ortiz, CARLIE [address], [place] [phone] Allergies Active Allergy Reactions Criticality Noted Date [...] aorta 07/14/2021 Atherosclerotic heart diseas e of [place] coronary artery with other forms of angina pectoris 07/14/2021 Age-related osteoporosis wit hout current pathological fracture 07/14/2021 History of pulmonary embolism 06/08/2021 [facility] current use of anticoagulant therapy 1 04/12/2020 [...] 04/05/2023 11:15 AM EST Hospital Encounter OR [facility], Operating Room, [facility] - 4th Floor [address] [place] [id number] Manjit Webb MD [address] [place] [address] 04/05/2023 11:15 AM EST - 04/05/2023 11:55 AM EST Surgery OR [facility], Operating Room, [facility] - 4th Floor [address] [place] [address] Manjit Webb MD [address] [place] [address] ESOPHAGOGASTRODUODENOSCOPY (EGD), FLEXIBLE, TRANSORAL, DIAGNOSTIC 04/11/2023 12:40 PM EST Office Visit Otolaryngology/ Head & Neck/Facial Plastic Surgery [address] [place] [facility] [place] [address] Joesph Yun MD [address] [place] [facility] [place] [address] 04/18/2023 11:00 AM EST Office Visit Orthopaedics [facility] [address] [place] [address] Chava Huff PA-C [address] [place] [address] 06/28/2023 8:00 AM EDT Office Visit [facility] [address] [place] [address] Kalen Ribeiro MD [address] [place] [address] 09/02/2023 9:00 AM EDT Office Visit Cardiology, [facility] [address] [place] [address] Halley Preston CRNP [address] [place] [address] 09/05/2023 10:30 AM EDT Rehab Services Voice Lab, [facility] [address] [place] [address] Lance Samuels, [facility] 132 [facility] [place] [address] 09/05/2023 11:00 AM EDT Appointment Radiology, [facility] [address] [place] [address] 02/10/2024 10:00 AM EST Cardiac Studies Cardiology, [facility] 132 [facility] [place] [address] Werner Pacer [facility] 132 [facility] [place] [address] 02/13/2024 8:15 AM EST Cardiac Studies Cardiac Studies, [facility] [address] [facility] [place] [address] Scheduled Procedures Name Priority Associated Diagnoses Date/Ti me ESOPHAGOGASTRODUODENOSCOPY ( EGD), FLEXIBLE, TRANSORAL, DIAGNOSTIC Dysphagia 04/05/2023 11:15 AM EST Health Maintenance Due Date Last Done Comments Zoster Vaccines (2 of 3) 07/17/2007 05/22/2007 COVID-19 Vaccine ( season) 2022 12/26/2021, 02/14/2021, 06/09/2020, Additional history exists DXA Scan 02/14/2023 02/14/2021, 06/10, 07/21/2014, Additional history exists Albumin/Creatinine Ratio 06/09/2023 06/08/2022, 05/11 CKD PHOS USE SMARTSET 66615 06/09/202305/11, 12/16/2020, 09/26/2020, Additional history exists GFR 09/16/2023 03/18/2023, 02/09, 11/20/2022, Additional history exists TSH 12/26/2023 12/25/2022, 05/11, 12/11/2021, Additional history exists CKD HGB USE SMARTSET 66239 03/18/202403/18, 03/18/2023, 11/20/2022, Additional history exists Depression Screening 04/02/2024 04/02/2023 DTaP,Tdap,and Td Vaccines (2 - Td or Tdap) 08/14/2024 08/14/2014, 01/25/2000 Pneumococcal Vaccine: 65+ Years Completed 01/06/2015, 08/19/2007 VITAMIN D LEVEL ONCE IN A LIFETIME-USE SMARTSET# [id number] Completed 12/11/2018, 07/07/2018, 10/06/2010 Influenza Vaccine (FLU [...] this encounter Medical Devices Implanted Type Area Potash Flaker Device Identifier Shelf Expiration Date Model / Serial / Lot Lead Tempo Temp Pacing - [id number] Implanted:Qty: 1 on 09/20/2020 by Dimitri Maya MD at [facility] [employer] [id number] 06/28/2021 [id number] / / [id number] documented as of this encounter Advance Directives [...] the patient have Health Care Power of Cleaner Furniture? No Full Code 09/25/2020 6:44 PM 09/26/2020 [...] the patient have Health Care Power of Cleaner Furniture? No Care Teams Crocheter Relationship Specialty Start Date End Date Kalen Ribeiro MD [address] [place] [address] PCP - General 12/15/01 documented as of this encounter
--- OUTSIDE RECORDS SUMMARY | 2023-06-01 11:14 | External Medical Summary | Summary of Care ---
Author Name Unknown Organization [facility] Address [address] [place] [address] Phone [phone] Care Team Providers Care Spectrograph Operator Name Role Phone Kalen Ribeiro MD Primary Care Provider +1- [phone] Reason for Referral * Social Care (Within 3 days (urgent)) - Authorized Specialty Diagnoses / Procedures Referred By Nithin regan Referred To Contact Certified Personal Trainer Diagnoses Oropharyngeal dysphagia Vocal cord paresis Brandt Reyes PA-C [address] [place] [address] Referral ID Status Reason Start Date Expiration Date Visits Requested Visits Authorized [id number] Authorized Specialty Services Required 04/02/2023 999 999 Question Answer Referral Priority Within 3 days (urgent) Where should this appointment be scheduled? [facility] Role Neonatal Pediatric Nurse Neonatal Pediatric Nurse Referral Reason Frail Elderly, High Utilizer/Patient Comments Is patient being transitioned from [facility] to Complex Case Management? 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 Yun * Telephone Encounter - Rosie Page LPN - 04/02/2023 9:50 AM EST Spoke to Suri- advised the video fluro is scheduled for tomorrow at 130. She is aware there was a power outage and the fluro machine is down but they are trying to get it up for tomorrow. She is aware if the machine is down tomorrow their schedule is pretty flexible and should be able to get rescheduled in a reasonable amount of time. She is also aware we are keeping the speech therapy appt at 200 as a back up incase the fluro needs to be rescheduled. Suri is appreciative of the appointments and had no concerns at the end of the call. Brandt also placed referral to case management and daughter is aware. * Telephone Encounter - Brandt Reyes PA-C - 04/02/2023 8:56 AM EST Spoke with daughter, Suri. They have tried baby food-- she gags on it. Tried mashing bananas and couldn't tolerate. She is drinking protein drinks-- Premier protein. She is drinking liquids -- gatorade, soups, broths, etc. Daughter states she is very weak. Does not feel like she needs PEG tube at this point, would like that to be last resort, however sheis very concerned. She also would like to see about getting case management involved to help with coordinating everything. Needs at this time: -scheduling MRI -f/u appnt with Dr. Yun in [place]. -case management involvement -- I tried to place referral but will ask PCP if they can assist Daughter, Suri, asks that we please call her instead of her mother as her mother is having a hard time hearing everyone and is getting frustrated, she can be reached at [phone] Brandt Reyes PA-C * Telephone Encounter - Sabrina Staton LPN - 04/01/2023 12:25 PM EST Called and relayed message to Suri, she voiced understanding. Will await schedulers call. * Telephone Encounter - Tigre Samuels DO - 04/01/2023 11:54 AM EST Ang Can you please help this patient get an appointment with Dr. Yun for consideration of an in office vocal cord injection for vocal cord paralysis and resultant aspiration If losing weight and not able to tolerate p.o., they may want to discuss PEG tube with family doctor and GI Thanks Tigre Samuels DO, FACS [facility] Otolaryngology Head and Neck Surgery [place], [place] 04/01/2023 11:55 AM * Telephone Encounter - Sabrina Staton LPN - 04/01/2023 11:16 AM EST Patient's daughter Suri calling in very concerned for her mother. She feels as if pt is dying and she is not getting the treatment she needs. She states pt had swallow study with results showing sheis aspirating. She is scheduled for EGD 04/05 and feels she is not well enough to proceed with it and wondering why she needs it and if it's absolutely necessary to have done. She states she is not able to eat, she tried eating baby food this morning and choked on it. She cannot get in to see a speech pathologist until August and knows she is not going to make it until then. Also it was mentioned tosee one of the docs at [facility] but has not heard anything regarding that. Daughter is asking if Brandt could please call her and talk to her. Advised she is out of the office today. Daughter stated to also ask the physician that had done the scope in the office. Suri can be reached at [phone]. documented in this encounter Plan of Treatment Upcoming Encounters Date Type Department Care Team (Latest Contact Info) Description 04/05/2023 11:15 AM EST Hospital Encounter OR [facility], Operating Room, [facility] - 4th Floor [address] [place] [address] Manjit Webb MD [address] [place] [address] 04/05/2023 11:15 AM EST - 04/05/2023 11:55 AM EST Surgery OR [facility], Operating Room, [facility] - 4th Floor [address] [place] [address] Manjit Webb MD [address] [place] [address] ESOPHAGOGASTRODUODENOSCOPY (EGD), FLEXIBLE, TRANSORAL, DIAGNOSTIC 04/11/2023 12:40 PM EST Office Visit Otolaryngology/ Head & Neck/Facial Plastic Surgery [address] [facility] [place] [address] Joesph Yun MD [address] [place] [address] 04/18/2023 11:00 AM EST Office Visit Orthopaedics [facility] [address] [place] [address] Chava Huff PA-C [address] [place] [address] 06/28/2023 8:00 AM EDT Office Visit [facility] [address] [place] [phone] Kalen Ribeiro MD [address] [place] [address] 09/02/2023 9:00 AM EDT Office Visit Cardiology, [facility] [place] [address] Halley Preston CRNP [address] [place] [address] 09/05/2023 10:30 AM EDT Rehab Services Voice Lab, [address] [address] Lance Samuels, [facility] [address] [place] [address] 09/05/2023 11:00 AM EDT Appointment Radiology, [facility] [address] [place] [address] 02/10/2024 10:00 AM EST Cardiac Studies Cardiology, [facility] [address] [facility] [place] [address] [facility] [place] [address] 02/13/2024 8:15 AM EST Cardiac Studies Cardiac Studies, [facility] [address] [facility] [place] [address] Scheduled Procedures Name Priority Associated Diagnoses Date/Ti me ESOPHAGOGASTRODUODENOSCOPY ( EGD), FLEXIBLE, TRANSORAL, DIAGNOSTIC Dysphagia 04/05/2023 11:15 AM EST Scheduled Referrals Name Type Priority Associated Diagnoses Orde r Schedule POPULATION HEALTH REFERRAL OP Referral Within 3 days (urgent) Oropharyngeal dysphagia Vocal cord paresis Ordered: 04/02/2023 Health Maintenance Due Date Last Done Comments Zoster Vaccines (2 of 3) 07/17/2007 05/22/2007 COVID-19 Vaccine ( season) 2022 12/26/2021, 02/14/2021, 06/09/2020, Additional history exists DXA Scan 02/14/2023 02/14/2021, 06/10, 07/21/2014, Additional history exists Albumin/Creatinine Ratio 06/09/2023 06/08/2022, 05/11 CKD PHOS USE SMARTSET 76195 06/09/202305/11, 12/16/2020, 09/26/2020, Additional history exists GFR 09/16/2023 03/18/2023, 02/09, 11/20/2022, Additional history exists TSH 12/26/2023 12/25/2022, 05/11, 12/11/2021, Additional history exists CKD HGB USE SMARTSET 46212 03/18/202403/18, 03/18/2023, 11/20/2022, Additional history exists Depression Screening 04/02/2024 04/02/2023 DTaP,Tdap,and Td Vaccines (2 - Td or Tdap) 08/14/2024 08/14/2014, 01/25/2000 Pneumococcal Vaccine: 65+ Years Completed 01/06/2015, 08/19/2007 VITAMIN D LEVEL ONCE IN A LIFETIME-USE SMARTSET# [id number] Completed 12/11/2018, 07/07/2018, 10/06/2010 Influenza Vaccine (FLU [...] this encounter Medical Devices Implanted Type Area Practice Management Consultant Device Identifier Shelf Expiration Date Model / Serial / Lot Lead Tempo Temp Pacing - [id number] Implanted:Qty: 1 on 09/20/2020 by Dimitri Maya MD at [facility] [employer] [id number] 06/28/2021 [id number] / / [id number] documented as of this encounter Visit Diagnoses Diagnosis Oropharyngeal dysphagia- Primary Dysphagia, oropharyngeal phase 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 No Full Code 09/25/2020 6:44 PM 09/26/2020 [...] the patient have Health Care Power of Tank Driver? No Care Teams Spectrograph Operator Relationship Specialty Start Date End Date Kalen Ribeiro MD [address] [place] [address] PCP - General 12/15/01 documented as of this encounter
--- OUTSIDE RECORDS SUMMARY | 2023-06-01 11:14 | External Medical Summary | Summary of Care ---
Author Name Unknown Organization [facility] Address [address] [place] [address] Phone [phone] Care Team Providers Care Grazing Aide Name Role Phone Kalen Ribeiro MD Primary Care Provider +1- [phone] Reason for Referral * Precert (Within 10 days (routine)) - Pending Review Specialty Diagnoses / Procedures Referred By Nithin regan Referred To Contact Radiology Diagnoses Oropharyngeal dysphagia Aspiration into airway, initial encounter Procedures MRI BRAIN WITH CONTRAST Kalen Ribeiro MD [address] [place] [address] Referral ID Status Reason Start Date Expiration Date V isits Requested Visits Authorized [id number] Pending Review 03/28/2023 999 999 Reason for Visit * Reason Onset Date Comments Test Results 03/28/2023 Encounter Details Date Type Department Care Team (Late st Contact Info) Description 03/28/[address] [facility] [address] [place] [address] Kalen Ribeiro MD [address], [place] [phone] Test Results Allergies Active Allergy Reactions Criticality [...] aorta 07/14/2021 Atherosclerotic heart diseas e of [place] coronary artery with other forms of angina pectoris 07/14/2021 Age-related osteoporosis wit hout current pathological fracture 07/14/2021 History of pulmonary embolism 06/08/2021 [facility] current use of anticoagulant therapy 1 04/12/2020 [...] and what good they are going to do. Suri's number is [phone]. Dr. Ribeiro: After we spoke, you asked to let you know where and when the EGD is scheduled. Patient is scheduledin [place] on at [facility] with Dr. Webb. 04/01/2023 * Telephone Encounter [...] 2:00 PM EST Rehab Services Speech Therapy, [address] [address] Tarah Wiggins, PRODUCT TRAINER [address] [place] [address] 04/05/2023 1:11 PM EST Hospital Encounter OR [facility], Operating Room, [facility] - 4th Floor [address] [place] [address] Manjit Webb MD [address] [place] [address] 04/05/2023 1:11 PM EST - 04/05/2023 1:51 PM EST Surgery OR GL, Operating Room, [facility] - 4th Floor [address] [place] [address] Manjit Webb MD [address] [place] [address] ESOPHAGOGASTRODUODENOSCOPY (EGD), FLEXIBLE, TRANSORAL, DIAGNOSTIC 04/18/2023 11:00 AM EST Office Visit Orthopaedics [facility] [address] [place] [address] Chava Huff PA-C [address] [place] [address] 06/28/2023 8:00 AM EDT Office Visit [facility] [address] [place] [phone] Kalen Ribeiro MD [address] [place] [facility] [place] [address] 09/02/2023 9:00 AM EDT Office Visit Cardiology, [facility] [place] [address] Halley Preston CRNP [address] [place] [address] 09/05/2023 10:30 AM EDT Rehab Services Voice Lab, [address] [address] Lance Samuels, [facility]-PRODUCT TRAINER [address] [place] [address] 09/05/2023 11:00 AM EDT Appointment Radiology, [facility] [address] [place] [address] 02/10/2024 10:00 AM EST Cardiac Studies Cardiology, [facility] [address] [facility] [place] [address] [facility] [address] [place] [address] 02/13/2024 8:15 AM EST Cardiac Studies Cardiac Studies, [facility] [place] [address] Scheduled Orders Name Type Priority Associated Diagnoses Orde r Schedule SPEECH/HEARING THERAPY, INDIVIDUAL Procedures Routine Oropharyngeal dysphagia Aspiration into airway, initial encounter Ordered: 03/28/2023 MRI BRAIN WITH CONTRAST Medical Imaging Routine Oropharyngeal dysphagia Aspiration into airway, initial encounter Expected: 03/28/2023, Expires: 04/28/2024 Scheduled Procedures Name Priority Associated Diagnoses Date/Ti md ESOPHAGOGASTRODUODENOSCOPY ( EGD), FLEXIBLE, TRANSORAL, DIAGNOSTIC Dysphagia 04/05/2023 1:11 PM EST Health Maintenance Due Date Last Done Comments Zoster Vaccines (2 of 3) 07/17/2007 05/22/2007 COVID-19 Vaccine ( season) 2022 12/26/2021, 02/14/2021, 06/09/2020, Additional history exists DXA Scan 02/14/2023 02/14/2021, 06/10, 07/21/2014, Additional history exists Albumin/Creatinine Ratio 06/09/2023 06/08/2022, 05/11 CKD PHOS USE SMARTSET 70404 06/09/202305/11, 12/16/2020, 09/26/2020, Additional history exists Depression Screening 06/13/2023 06/12/2022 GFR 09/16/2023 03/18/2023, 02/09, 11/20/2022, Additional history exists TSH 12/26/2023 12/25/2022, 05/11, 12/11/2021, Additional history exists CKD HGB USE SMARTSET 88480 03/18/202403/18, 03/18/2023, 11/20/2022, Additional history exists DTaP,Tdap,and Td Vaccines (2 - Td or Tdap) 08/14/2024 08/14/2014, 01/25/2000 Pneumococcal Vaccine: 65+ Years Completed 01/06/2015, 08/19/2007 VITAMIN D LEVEL ONCE IN A LIFETIME-USE SMARTSET# [id number] Completed 12/11/2018, 07/07/2018, 10/06/2010 Influenza Vaccine (FLU [...] this encounter Medical Devices Implanted Type Area Dry Color Mixer Device Identifier Shelf Expiration Date Model / Serial / Lot Lead Tempo Temp Pacing - [id number] Implanted:Qty: 1 on 09/20/2020 by Dimitri Maya MD at [facility] [employer] [id number] 06/28/2021 [id number] / / [id number] documented as of this encounter Visit Diagnoses [...] the patient have Health Care Power of Mobile Development Manager? No Full Code 09/25/2020 6:44 PM [...] the patient have Health Care Power of Mobile Development Manager? No Care Teams Grazing Aide Relationship Specialty Start Date End Date Kalen Ribeiro MD [address] [place] [address] PCP - General 12/15/01 documented as of this encounter
--- OUTSIDE RECORDS SUMMARY | 2023-06-01 11:14 | External Medical Summary | Summary of Care ---
Author Name Unknown Organization [facility] Address [address] [place] [address] Phone [phone] Care Team Providers Care Health Unit Clerk Name Role Phone Kalen Ribeiro MD Primary Care Provider +1- [phone] Encounter Details Date Type Department Care Team (Late st Contact Info) Description 04/06/2023 Result Scan Unspecified Department Jerod Rosales, DO [address] [place] [address] <No scans attached> Allergies Active Allergy Reactions Criticality Noted Date [...] aorta 07/14/2021 Atherosclerotic heart diseas e of [place] coronary artery with other forms of angina pectoris 07/14/2021 Age-related osteoporosis wit hout current pathological fracture 07/14/2021 History of pulmonary embolism 06/08/2021 group home current use of anticoagulant therapy 1 [...] Otolaryngology/Head & Neck/Facial Plastic Surgery [address] [place] [address] Joesph Yun MD [address] [place] [place] [address] 04/18/2023 11:00 AM EST Office Visit Orthopaedics [facility] [address] [place] [address] Chava Huff PA-C [address] [place] [address] 06/28/2023 8:00 AM EDT Office Visit [facility] [address] [place] [phone] Kalen Ribeiro MD [address] [place] [address] 09/02/2023 9:00 AM EDT Office Visit Cardiology, [facility] [address] [place] [address] Halley Preston CRNP [address] [place] [address] 09/05/2023 10:30 AM EDT Rehab Services Voice Lab, [address] [address] Lance Samuels, [facility]-OFFENDER JOB RETENTION SPECIALIST [address] [place] [address] 09/05/2023 11:00 AM EDT Appointment Radiology, [facility] [address] [place] [address] 02/10/2024 10:00 AM EST Cardiac Studies Cardiology, [facility] [address] [place] [address] [facility] [address] [place] [address] 02/13/2024 8:15 AM EST Cardiac Studies Cardiac Studies, [facility] [place] Health Maintenance Due Date Last Done Comments Zoster Vaccines (2 of 3) 07/17/2007 05/22/2007 COVID-19 Vaccine ( season) 2022 12/26/2021, 02/14/2021, 06/09/2020, Additional history exists DXA Scan 02/14/2023 02/14/2021, 06/10, 07/21/2014, Additional history exists Albumin/Creatinine Ratio 06/09/2023 06/08/2022, 05/11 CKD PHOS USE SMARTSET 63072 06/09/202305/11, 12/16/2020, 09/26/2020, Additional history exists GFR 09/16/2023 03/18/2023, 02/09, 11/20/2022, Additional history exists TSH 12/26/2023 12/25/2022, 05/11, 12/11/2021, Additional history exists CKD HGB USE SMARTSET 16865 03/18/202403/18, 03/18/2023, 11/20/2022, Additional history exists Depression Screening 04/02/2024 04/02/2023 DTaP,Tdap,and Td Vaccines (2 - Td or Tdap) 08/14/2024 08/14/2014, 01/25/2000 Pneumococcal Vaccine: 65+ Years Completed 01/06/2015, 08/19/2007 VITAMIN D LEVEL ONCE IN A LIFETIME-USE SMARTSET# [id number] Completed 12/11/2018, 07/07/2018, 10/06/2010 Influenza Vaccine (FLU [...] this encounter Medical Devices Implanted Type Area Veneer Measurer Device Identifier Shelf Expiration Date Model / Serial / Lot Lead Tempo Temp Pacing - [id number] Implanted:Qty: 1 on 09/20/2020 by Dimitri Maya MD at [facility] [employer] [id number] 06/28/2021 [id number] / / [id number] documented as of this encounter Procedures Procedure Name Priority Date/Time Associated Diagnosis Comments CARDIOLOGY SCANNED RESULT 04/06/2023 documented in this encounter Results * CARDIOLOGY SCANNED RESULT (04/06/2023) 04/06/2023 Jerod Rosales DO OTHER documented in this encounter Advance Directives Latest [...] the patient have Health Care Power of Graduate Teaching Associate? No Full Code 09/25/2020 6:44 PM 09/26/2020 [...] the patient have Health Care Power of Graduate Teaching Associate? No Care Teams Health Unit Clerk Relationship Specialty Start Date End Date Kalen Ribeiro MD [address] [place] [address] PCP - General 12/15/01 documented as of this encounter
--- OUTSIDE RECORDS SUMMARY | 2023-06-01 11:14 | External Medical Summary | Summary of Care ---
Author Name Unknown Organization [facility] Address [address] [place] [address] Phone [phone] Care Team Providers Care Purchase Analyst Name Role Phone Kalen Ribeiro MD Primary Care Provider +1- [phone] Encounter Details Date Type Department Care Team (Latest Contact Info) Description 04/03/2023 1:15 PM EST - 04/03/2023 11:59 PM EST Hospital Encounter Radiology, [facility] [address] [place] [address] Arrived Discharge Disposition: Home - Self Care Allergies [...] aorta 07/14/2021 Atherosclerotic heart diseas e of [place] coronary artery with other forms of angina pectoris 07/14/2021 Age-related osteoporosis wit hout current pathological fracture 07/14/2021 History of pulmonary embolism 06/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 1 04/12/2020 [...] EST Hospital Encounter OR [facility], Operating Room, [facility] - 4th Floor [address] [place] [address] Manjit Webb MD [address] [place] [address] 04/05/2023 11:15 AM EST - 04/05/2023 11:55 AM EST Surgery OR [facility], Operating Room, [facility] - 4th Floor [address] [place] [address] Manjit Webb MD [address] [place] [address] ESOPHAGOGASTRODUODENOSCOPY (EGD), FLEXIBLE, TRANSORAL, DIAGNOSTIC 04/11/2023 12:40 PM EST Office Visit Otolaryngology/ Head & Neck/Facial Plastic Surgery [address] [place] [facility] [place] [address] Joesph Yun MD [address] [place] [facility] [place] [address] 04/18/2023 11:00 AM EST Office Visit Orthopaedics [facility] [address] [place] [address] Chava Huff PA-C [address] [place] [address] 06/28/2023 8:00 AM EDT Office Visit [facility] [address] [place] [address] Kalen Ribeiro MD [address] [place] [address] 09/02/2023 9:00 AM EDT Office Visit Cardiology, [facility] [address] [place] [address] Halley Preston CRNP [address] [place] [address] 09/05/2023 10:30 AM EDT Rehab Services Voice Lab, [facility] [address] [place] [address] Lance Samuels, [facility] [address] [place] [address] 09/05/2023 11:00 AM EDT Appointment Radiology, [facility] [address] [facility] [place] [address] 02/10/2024 10:00 AM EST Cardiac Studies Cardiology, [facility] [address] [facility] [place] [address] [facility] [address] [facility] [place] [address] 02/13/2024 8:15 AM EST Cardiac Studies Cardiac Studies, [facility] [address] [facility] [place] [address] Scheduled Procedures Name Priority Associated Diagnoses Date/Ti me ESOPHAGOGASTRODUODENOSCOPY ( EGD), FLEXIBLE, TRANSORAL, DIAGNOSTIC Dysphagia 04/05/2023 11:15 AM EST Health Maintenance Due Date Last Done Comments Zoster Vaccines (2 of 3) 07/17/2007 05/22/2007 COVID-19 Vaccine ( season) 2022 12/26/2021, 02/14/2021, 06/09/2020, Additional history exists DXA Scan 02/14/2023 02/14/2021, 06/10, 07/21/2014, Additional history exists Albumin/Creatinine Ratio 06/09/2023 06/08/2022, 05/11 CKD PHOS USE SMARTSET 51377 06/09/202305/11, 12/16/2020, 09/26/2020, Additional history exists GFR 09/16/2023 03/18/2023, 02/09, 11/20/2022, Additional history exists TSH 12/26/2023 12/25/2022, 05/11, 12/11/2021, Additional history exists CKD HGB USE SMARTSET 53836 03/18/202403/18, 03/18/2023, 11/20/2022, Additional history exists Depression Screening 04/02/2024 04/02/2023 DTaP,Tdap,and Td Vaccines (2 - Td or Tdap) 08/14/2024 08/14/2014, 01/25/2000 Pneumococcal Vaccine: 65+ Years Completed 01/06/2015, 08/19/2007 VITAMIN D LEVEL ONCE IN A LIFETIME-USE SMARTSET# [id number] Completed 12/11/2018, 07/07/2018, 10/06/2010 Influenza Vaccine (FLU [...] this encounter Medical Devices Implanted Type Area Computer Technical Support Specialist Device Identifier Shelf Expiration Date Model / Serial / Lot Lead Tempo Temp Pacing - [id number] Implanted:Qty: 1 on 09/20/2020 by Dimitri Maya MD at [facility] [employer] [id number] 06/28/2021 [id number] / / [id number] documented as of this encounter Procedures Procedure Name Priority Date/Time Associated Diagnosis Comments FLUORO SWALLOWING FUNCTION W VIDEO CINE Routine 04/03/2023 1:49 PM EST Esophageal dysphagia documented in this encounter Administered Medications Inactive Administered Medications - up to 3 most recent administrations Medication Order MAR Action Action Date Dose Rate Site Barium Sulfate (Ez Disk) tab 700 mg 700 mg, Oral, ONCE, On Sat04/03/23 at 1349, For 1 dose, Radiology Medication Routing (Non-IR) Given 04/03/2023 1:49 PM EST 700 mg barium sulfate 96% (E-Z-Paque) oral susp 140 mL 140 mL, Oral, ONCE, On Sat04/03/23 at 1349, For 1 dose, Radiology Medication Routing (Non-IR) Given 04/03/2023 1:49 PM EST 140 mL documented in this encounter Advance Directives Latest Code Status on File Code Status Date Activated Date Inactivated Comments Full Code 10/09/2020 3:04 AM 10/11/2020 7:10 PM This o rder reflects the patients [...] the patient have Health Care Power of Master Baker? No Full Code 09/25/2020 6:44 PM 09/26/2020 [...] the patient have Health Care Power of Master Baker? No Care Teams Purchase Analyst Relationship Specialty Start Date End Date Kalen Ribeiro MD [address] [place] [address] PCP - General 12/15/01 documented as of this encounter
--- OUTSIDE RECORDS SUMMARY | 2023-06-01 11:14 | External Medical Summary | Summary of Care ---
Author Name Unknown Organization [facility] Address [address] [place] [address] Phone [phone] Care Team Providers Care Brusher Hand Name Role Phone Kalen Ribeiro MD Primary Care Provider +1- [phone] Reason for Visit * Reason Comments dysphagia * Evaluate & Treat - Unlimited Visits (Within 3 days (urgent)) - Authorized Specialty Diagnoses / Procedures Referred By Nithin t Referred To Contact Speech Pathology / Speech Pathology Diagnoses Esophageal dysphagia Brandt Reyes PA-C [address] [place] [address] Referral ID Status Reason Start Date Expiration Date Visits Requested Visits Authorized [id number] Authorized Specialty Services Required 04/03/2023 03/10/2024 999 999 Encounter Details Date Type Department Care Team (Latest Contact Info) Description 04/03/2023 2:00 PM EST Rehab Services Speech Therapy, [place] [address] [place] [address] Tarah Wiggins, [place] [address] [place] [phone] Esophageal dysphagia* Allergies Active Allergy Reactions Criticality Noted Date Comments Heparin 10/07/2020 Concern for HIT documented as of this encounter (statuses as of 04/05/2023) Medications Medication Sig Dispensed Refills Start Date [...] as of this encounter (statuses as of 04/05/2023) Active Problems Problem Noted Date Diagnosed Date [...] aorta 07/14/2021 Atherosclerotic heart diseas e of [place] coronary artery with other forms of angina pectoris 07/14/2021 Age-related osteoporosis wit hout current pathological fracture 07/14/2021 History of pulmonary embolism 06/08/2021 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 (15 years old or older) No 08/02/20 21 Cognitive Status Response Date of Assessm ent Because of a physical, menta l, or emotional condition, do you have serious difficulty concentrating, remembering, or making decisions? (5 years old or older) No 10/10/2020 documented as of this encounter Progress Notes * Tarah Wiggins, OVERSEER KOSHER KITCHEN - 04/05/2023 8:20 AM EST OUTPATIENT REHABILITATION SPEECH-LANGUAGE PATHOLOGY DAILY PROGRESS NOTE Speech Therapy, [place] [address] [facility] [address] Marie Nieves [phone] Visit Number 1 Date: 04/02/2023 Time: [id number] Communication/Swallowing Diagnosis: Esophageal Dysphagia Treatment Type: Individual Subjective: Marie was just seen for VFSS and here for treatment and follow through with dysphagia treatment recommendations. Short Term Goals: Marie will utilize chin tuck independently to minimize risk of aspiration secondary to pharyngeal swallow delay. Comments: Marie demonstrated chin tuck over at least 5 opportunities for management of thin liquidswith throat clearing observed in 2/5 opportunities. Reviewed small bites, slow rate, and alternating liquids with solids. 2. Given written instructions, Marie will complete exercises to improve pharyngeal stage of swallowto within normal limits. Comments: Marie completed chin tuck against resistance to target laryngeal elevation, epiglottic closure, and pharyngeal clearance based on deficits noted in VFSS. Provided written instructions dictated using the patient's own description of the exercise as well as verbal instructions for both the patient and her daughter who accompanied her. Additional comments: Provided patient with written and verbal GERD behavioral lifestyle changes education with focus on elevating head of bed, waiting 3 hours after eating/drinking before laying down, and reducing intake of acidic foods. Plan: Follow up with speech therapy services as indicated pending GI and ENT recommendation. Tarah Wiggins MS, CCC- OVERSEER KOSHER KITCHEN 04/03/2023 documented in this encounter Plan of Treatment Upcoming Encounters Date Type Department Care Team (Late st Contact Info) Description 04/11/2023 12:40 PM EST Office Visit Otolaryngology/Head & Neck/Facial Plastic Surgery [address] [place] [address] Joesph Yun MD [address] [place] [facility] [place] [address] 04/18/2023 11:00 AM EST Office Visit Orthopaedics [facility] [address] [place] [address] Chava Huff PA-C [address] [place] [address] 06/28/2023 8:00 AM EDT Office Visit [facility] [address] [place] [phone] Kalen Ribeiro MD [address] [place] [address] 09/02/2023 9:00 AM EDT Office Visit Cardiology, [facility] 132 [facility] [place] [address] Halley Preston CRNP [address] [place] [address] 09/05/2023 10:30 AM EDT Rehab Services Voice Lab, [facility] [address] [place] [address] Lance Samuels, [facility]-OVERSEER KOSHER KITCHEN [address] [place] [address] 09/05/2023 11:00 AM EDT Appointment Radiology, [facility] [address] [facility] [phone] 02/10/2024 10:00 AM EST Cardiac Studies Cardiology, [facility] [address] [place] [address] [facility] [address] [place] [address] 02/13/2024 8:15 AM EST Cardiac Studies Cardiac Studies, [facility] [address] [place] [address] Scheduled Procedures Name Priority Associated Diagnoses Date/Ti me ESOPHAGOGASTRODUODENOSCOPY ( EGD), FLEXIBLE, TRANSORAL, DIAGNOSTIC Dysphagia 04/05/2023 11:20 AM EST Scheduled Referrals Name Type Priority Associated Diagnoses [place] r Schedule SPEECH PATHOLOGY REFERRAL OP Referral Within 3 days (urgent) Esophageal dysphagia Ordered: 03/28/2023 Health Maintenance Due Date Last Done Comments Zoster Vaccines (2 of 3) 07/17/2007 05/22/2007 COVID-19 Vaccine ( season) 2022 12/26/2021, 02/14/2021, 06/09/2020, Additional history exists DXA Scan 02/14/2023 02/14/2021, 06/10, 07/21/2014, Additional history exists Albumin/Creatinine Ratio 06/09/2023 06/08/2022, 05/11 CKD PHOS USE SMARTSET 48808 06/09/202305/11, 12/16/2020, 09/26/2020, Additional history exists GFR 09/16/2023 03/18/2023, 02/09, 11/20/2022, Additional history exists TSH 12/26/2023 12/25/2022, 05/11, 12/11/2021, Additional history exists CKD HGB USE SMARTSET 22507 03/18/202403/18, 03/18/2023, 11/20/2022, Additional history exists Depression Screening 04/02/2024 04/02/2023 DTaP,Tdap,and Td Vaccines (2 - Td or Tdap) 08/14/2024 08/14/2014, 01/25/2000 Pneumococcal Vaccine: 65+ Years Completed 01/06/2015, 08/19/2007 VITAMIN D LEVEL ONCE IN A LIFETIME-USE SMARTSET# [id number] Completed 12/11/2018, 07/07/2018, 10/06/2010 Influenza Vaccine (FLU [...] this encounter Medical Devices Implanted Type Area Flue Gas Analyst Device Identifier Shelf Expiration Date Model / Serial / Lot Lead Tempo Temp Pacing - [id number] Implanted:Qty: 1 on 09/20/2020 by Dimitri Maya MD at [facility] [place] [employer] [id number] 06/28/2021 [id number] / / [id number] documented as of this encounter Visit Diagnoses Diagnosis Esophageal dysphagia- Primary Dysphagia, pharyngoesophageal phase documented in this encounter Advance Directives [...] patient have Health Care Power of Fire Alarm Mechanic? No Full Code 09/25/2020 6:44 PM [...] patient have Health Care Power of Fire Alarm Mechanic? No Care Teams Brusher Hand Relationship Specialty Start Date End Date Kalen Ribeiro MD [address] [place] [address] PCP - General 12/15/01 documented as of this encounter
--- OUTSIDE RECORDS SUMMARY | 2023-06-01 11:14 | External Medical Summary | Summary of Care ---
Author Name Unknown Organization [facility] Address [address] [place] [address] Phone [phone] Care Team Providers Care Industrial Editor Name Role Phone Kalen Ribeiro MD Primary Care Provider [phone]- [phone] Reason for Referral * Evaluate & Treat - Unlimited Visits (Within 3 days (urgent)) - Authorized Specialty Diagnoses / Procedures Referred By Nithin t Referred To Contact Speech Pathology / Speech Pathology Diagnoses Esophageal dysphagia Brandt Reyes PA-C [address] [place] [address] Referral ID Status Reason Start Date Expiration Date Visits Requested Visits Authorized [id number] Authorized Specialty Services Required 04/03/2023 03/10/[phone] Question Answer Referral Priority Within 3 days (urgent) Where should this appointment be scheduled? Maddy Comments Dysphagia-- please see swallow study from 03/27/23 Encounter Details Date Type Department Care Team (Late st Contact Info) Description 03/28/2023 Telephone Otolaryngology [facility] [address] [place] [address] Barndt Reyes PA-C [address] [place] [address] Allergies Active Allergy Reactions Criticality Noted Date [...] aorta 07/14/2021 Atherosclerotic heart diseas e of [place] coronary artery with other forms of angina [...] encounter Miscellaneous Notes * Telephone Encounter - Macey Mark OSA - 03/29/2023 12:28 PM EST Per chart review pt has been scheduled. CARLIE Manning * Telephone Encounter - Rosie Page LPN - 03/28/2023 11:13 AM EST Patient verbalizes understanding of all instructions and explanations given. Please reach out to daughter to schedule Video fluro at [place]. She is aware Lance may be scheduling out. Is aware to keep EGD. * Telephone Encounter - Brandt Reyes PA-C - 03/28/2023 10:59 AM EST Please let daughter know the study showed some aspiration of contrast material and esophageal dysmotility. We recommend further evaluation with speech language pathologist involvement and speech therapy. I have put the order in for this. She should also follow up with GI. Please assist pt in scheduling. Thank you! Brandt Reyes PA-C * Telephone Encounter - Sabrina Staton LPN - 03/28/2023 10:32 AM EST Daughter Suri called in to make Brandt Reyes PA-C aware that pt had swallow study performed yesterday, asking for it to be reviewed. She can be reached at [phone]. documented in this encounter Plan of Treatment Upcoming Encounters Date Type Department Care Team (Latest Contact Info) Description 04/05/2023 11:15 AM EST Hospital Encounter OR [facility], Operating Room, [facility] - 4th Floor [address] [place] [address] Manjit Webb MD [address] [place] [address] 04/05/2023 11:15 AM EST - 04/05/2023 11:55 AM EST Surgery OR [facility], Operating Room, [facility] - 4th Floor [address] [place] [address] Manjit Webb MD [address] [place] [address] ESOPHAGOGASTRODUODENOSCOPY (EGD), FLEXIBLE, TRANSORAL, DIAGNOSTIC 04/11/2023 12:40 PM EST Office Visit Otolaryngology/ [facility] [address] [facility] [address] Joesph Yun [facility] [address] [facility] [address] 04/18/2023 11:00 AM EST Office Visit Orthopaedics [facility] [address] [place] [address] Chava Huff PA-C [address] [place] [address] 06/28/2023 8:00 AM EDT Office Visit [facility] [address] [place] [place] [phone] Kalen Ribeiro MD [address] [place] [address] 09/02/2023 9:00 AM EDT Office Visit Cardiology, [facility] [address] [facility] [place] [address] Halley Preston CRNP [address] [place] [address] 09/05/2023 10:30 AM EDT Rehab Services Voice Lab, [facility] [address] [place] [address] Lance Samuels, [facility] [address] [facility] [place] [address] 09/05/2023 11:00 AM EDT Appointment Radiology, [facility] [address] [place] [address] 02/10/2024 10:00 AM EST Cardiac Studies Cardiology, [facility] [address] [facility] [place] [address] [facility] 132 [facility] [place] [address] 02/13/2024 8:15 AM EST Cardiac Studies Cardiac Studies, [facility] [address] [facility] [place] [address] Scheduled Procedures Name Priority Associated Diagnoses Date/Ti [...] 06/09/2023 06/08/2022, 05/11 CKD PHOS USE SMARTSET 91010 06/09/202305/11, 12/16/2020, 09/26/2020, Additional history exists GFR 09/16/2023 03/18/2023, 02/09, 11/20/2022, Additional history exists TSH 12/26/2023 12/25/2022, 05/11, 12/11/2021, Additional history exists CKD HGB USE SMARTSET 38049 03/18/202403/18, 03/18/2023, 11/20/2022, Additional history exists Depression Screening 04/02/2024 04/02/2023 DTaP,Tdap,and Td Vaccines (2 - Td or Tdap) 08/14/2024 08/14/2014, 01/25/2000 Pneumococcal Vaccine: 65+ Years Completed 01/06/2015, 08/19/2007 VITAMIN D LEVEL ONCE IN A LIFETIME-USE SMARTSET# [id number] Completed 12/11/2018, 07/07/2018, 10/06/2010 Influenza Vaccine (FLU [...] this encounter Medical Devices Implanted Type Area Cemetery Manager Device Identifier Shelf Expiration Date Model / Serial / Lot Lead Tempo Temp Pacing - [id number] Implanted:Qty: 1 on 09/20/2020 by Dimitri Maya [place] [facility] [employer] [id number] 06/28/2021 [id number] / / [id number] documented as of this encounter Procedures Procedure Name Priority Date/Time Associated Diagnosis Comments FLUORO SWALLOWING FUNCTION W VIDEO CINE Routine 04/03/2023 1:49 PM EST Esophageal dysphagia documented in this encounter Results * FLUORO SWALLOWING FUNCTION W VIDEO CINE (04/03/2023 1:49 PM EST) Anatomical Region Laterality Modality Esoph, Neck Radio Fluoroscop y 04/03/2023 2:45 PM EST Impressions 04/03/2023 2:43 PM EST IMPRESSION 1. No evidence of aspiration. 2. Please see the full speech pathologist report for complete evaluation. Narrative 04/03/2023 2:43 PM EST EXAM FLUORO SWALLOWING FUNCTION W VIDEO CINE-04/03/2023 1:49 pm HISTORY dysphagia, see prior swallow study from 03/27/23 COMPARISON None TECHNIQUE Under direct fluoroscopic evaluation, the speech pathologist administered barium mixed liquids and solid food of varying consistency. The mechanisms of bolus formation and swallowing were observed. FINDINGS Findings were recorded on DVD. There was minimal penetration. No aspiration was seen. There was delayed transit of the barium tablet at the upper esophagus, as well as at the GE junction which eventually traveled into the stomach after the ingestion of additional apple juice. Procedure Note Adina Rios, DO - 04/03/2023 EXAM FLUORO SWALLOWING FUNCTION W VIDEO CINE-04/03/2023 1:49 pm HISTORY dysphagia, see prior swallow study from 03/27/23 COMPARISON None TECHNIQUE Under direct fluoroscopic evaluation, the speech pathologist administeredbarium mixed liquids and solid food of varying consistency. Themechanisms of bolus formation and swallowing were observed. FINDINGS Findings were recorded on DVD. There was minimal penetration. Noaspiration was seen. There was delayed transit of the barium tablet atthe upper esophagus, as well as at the GE junction which eventuallytraveled into the stomach after the ingestion of additional apple juice. IMPRESSION IMPRESSION 1. No evidence of aspiration. 2. Please see the full speech pathologist report for completeevaluation. Brandt Reyes PA-C RAD FLUOROSCOPY documented in this encounter Visit Diagnoses Diagnosis Esophageal dysphagia- Primary Dysphagia, pharyngoesophageal phase Dysphagia, oropharyngeal phase- Primary Dysphagia Dysphagia, unspecified documented in this encounter [...] the patient have Health Care Power of Prototype Engineer Manager? No Full Code 09/25/2020 6:44 PM [...] the patient have Health Care Power of Prototype Engineer Manager? No Care Teams Industrial Editor Relationship Specialty Start Date End Date Kalen Ribeiro MD [address] [place] [address] PCP - General 12/15/01 documented as of this encounter
--- OUTSIDE RECORDS SUMMARY | 2023-06-01 11:14 | External Medical Summary | Summary of Care ---
Author Name Unknown Organization [facility] Address [address] [place] [address] Phone [phone] Care Team Providers Care Youth Development Professional Name Role Phone Kalen Ribeiro MD Primary Care Provider +1- [phone] Reason for Visit * Reason Comments dysphagia Encounter Details Date Type Department Care Team (Late st Contact Info) Description 04/03/2023 1:30 PM EST Rehab Services Speech Therapy, [place] [address] [place] [address] [place] Castañeda, CORRECTIONAL CAPTAIN [address] [place] [address] Dysphagia, oropharyngeal phase* Allergies Active Allergy Reactions Criticality Noted Date Comments Heparin 10/07/2020 Concern for HIT documented as of this encounter (statuses as of 04/03/2023) Medications Medication Sig Dispensed Refills Start Date [...] as of this encounter (statuses as of 04/03/2023) Active Problems Problem Noted Date Diagnosed Date [...] aorta 07/14/2021 Atherosclerotic heart diseas e of [place] coronary artery with other forms of angina pectoris 07/14/2021 Age-related osteoporosis wit hout current pathological fracture 07/14/2021 History of pulmonary embolism 06/08/2021 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 1 04/12/2020 [...] as of this encounter (statuses as of 04/03/2023) Resolved Problems Problem Noted Date Diagnosed Date [...] as of this encounter (statuses as of 04/03/2023) Immunizations Name Administration Dates Next Due COVID-19 mRNA, LNP-s, No Pre serve, 2-Dose Series (Moderna) 06/09/2020,05/12/2020 COVID-19, mRNA, LNP-s, PF, B ooster, 100mcg/0.5mg (Moderna) 02/14/2021 Covid-19, Mrna, Lnp-s, Pf, B ivalent, 30 Mcg, IM, 12 yrs and above ([place]) 12/26/2021 Pneumococcal Conjugate Vacc, 13 Valent (Prevnar) [...] as of this encounter Progress Notes * [place] Castañeda, CORRECTIONAL CAPTAIN - 04/03/2023 2:37 PM EST VIDEOFLUOROSCOPY SWALLOW EVALUATION Speech Therapy, [address] [address] Name: Marie Nieves Date and Time of Procedure: 04/03/2023 at 1330 Insurance: Payor: [facility] Enevate / Plan: Zenamins CLASSIC 1 PART D - / Product Type: *No Product type* / Patient Age: [age] year old Referring Physician: Dr. Glynn Pertinent Medical History: 82 year old female who presents to the ED for evaluation of Trouble Swallowing. The patient was seen at 03/18/23 1039. Patient is an 82-year-old female who presents with a chief complaint of dysphagia. The patient has past medical history of hypertension, hyperlipidemia, GERD, iron- deficiency anemia, paroxysmal atrial fibrillation, PE, CKD. The patient states that 4 days ago she started noticing progressive difficulty swallowing. She is able to swallow liquids in her own saliva however she has not able to swallow anything solid even after chewing it thoroughly. She can have some thickened liquids like applesauce and pudding but still is somewhat difficult to get down. She has never had this before no recent EGD. She does admit to some weight loss since last weekdue to not eating as much. Denies any night sweats, chest pain, shortness of breath, vomiting. 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 EGD [facility] Current Diet/Dysphagia History: Puree and liquids since 03/13/23 with some soft solids "Macey's [place]" Cognitive-Communication: Baseline TRACH/Ventilator Status: not applicable Pain: No complaints of pain ORAL EXAM Facial Symmetry: Within Functional Limits (WFL) Lingual Function: Within Functional Limits (WFL) Labial Function: Within Functional Limits (WFL) Velar Function: Did Not Test (DNT) Dentition: Natural Buccal Strength and Mobility: intact PROTECTIVE MECHANISMS Volitional Swallow: Impaired (IMP) Volitional Throat Clearing: Impaired (IMP) Volitional Cough: Impaired (IMP) Vocal Quality: Impaired (IMP) SWALLOWING FUNCTION: Patient Positioning: seated with 90 hip flexion Feeding/Eating:impaired Feeding Assistance: no assistance needed Oxygen Therapy: Room air SpO2 (%): n/a View During Study: Left Lateral: Viewed Radiologist: Dr. Rios VIDEOFLUOROSCOPY Swallow Evaluation - Puree, Soft Solids, Thins, pill swallow with thins. Declines Regular solids. Diagnostic Statement: Patient with mild oropharyngeal dysphagia Prolonged mastication of solids with delayed AP transit secondary to dry mouth. Pharyngeal delay to the valleculae with reduced laryngeal elevation and delayed epiglottic retroflexion leading to penetration into laryngeal vestibule that cleared with completion of the swallow. Reduced UES open as well as presence of cervical osteophytes which did slow the flow of the bolus. Some retrograde flow noted with larger volumes that did return into laryngeal vestibule. Patient sensate to this and able to cough and clear. Vallecular stasisnoted with all consistencies however most notable with puree and solids. Use of chin tuck was effective to encourage clearance of stases and to eliminate penetration of liquid sips. Pill swallow alsocompleted with thins. Pill stalled in Vallecular space but passed. Later observed in lower esophogus. Radiologist had patient stand and sip liquids until pill was observed passing further and no longer visible. At this time recommend patient continue with soft solid diet with thin liquids with use of strategies including chin tuck, small bites, slow rate, and alternating solids and liquids. 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 RECOMMENDATIONS: Diet Level: Soft Solids Liquid Level: Thin APPLICABLE ONLY IF PO DIET IS RECOMMENDED Presentation of Medication: As tolerated Level of Supervision: Intermittent Compensatory Techniques to be Utilized During PO Intake: small bites/sips, alternate solids and liquids, slow rate of intake, chin tuck, and single sips PLAN: Swallowing Treatment: Indicated 1 days/week REHAB POTENTIAL: Good APPLICABLE ONLY IF TREATMENT IS INDICATED Patient will consume least restrictive diet without sign/symptoms of aspiration Additional Recommendations: Continue with previous GI and ENT recommendations The above information was discussed with the patient/family: Yes The patient/family was in Agreement Patient / Family goals: Return to baseline diet [place] Castañeda M.S., CCC-CORRECTIONAL CAPTAIN documented in this encounter Plan of Treatment Upcoming Encounters Date Type Department Care Team (Latest Contact Info) Description 04/05/2023 1:11 PM EST Hospital Encounter OR [facility], Operating Room, [facility] - 4th Floor [address] [place] [address] [place] [address] Manjit Webb MD [address] [place] [address] 04/05/2023 1:11 PM EST - 04/05/2023 1:51 PM EST Surgery OR [facility], Operating Room, [facility] - 4th [facility] [address] [facility] [address] Manjit Webb MD [address] [place] [address] ESOPHAGOGASTRODUODENOSCOPY (EGD), FLEXIBLE, TRANSORAL, DIAGNOSTIC 04/18/2023 11:00 AM EST Office Visit Orthopaedics [facility] [address] [place] [address] Chava Huff PA-C [address] [place] [address] 06/28/2023 8:00 AM EDT [facility] [address] [facility] [phone] Kalen Ribeiro MD [address] [place] [address] 09/02/2023 9:00 AM EDT Office Visit Cardiology, [facility] [address] [place] [address] Halley Preston CRNP [address] [place] [address] 09/05/2023 10:30 AM EDT Rehab Services Voice Lab, [facility] 400 [facility] [place] [address] Lance Samuels, [facility]-CORRECTIONAL CAPTAIN [address] [place] [address] 09/05/2023 11:00 AM EDT Appointment Radiology, [facility] [address] [place] [address] 02/10/2024 10:00 AM EST Cardiac Studies Cardiology, [facility] 132 [facility] [place] [address] [place], [facility] 132 [facility] [place] [address] 02/13/2024 8:15 AM EST Cardiac Studies Cardiac Studies, [facility] [address] [facility] [place] [address] Scheduled Procedures Name Priority Associated Diagnoses Date/Ti me ESOPHAGOGASTRODUODENOSCOPY ( EGD), FLEXIBLE, TRANSORAL, DIAGNOSTIC Dysphagia 04/05/2023 1:11 PM EST Health Maintenance Due Date Last Done Comments Zoster Vaccines (2 of 3) 07/17/2007 05/22/2007 COVID-19 Vaccine ( season) 2022 12/26/2021, 02/14/2021, 06/09/2020, Additional history exists DXA Scan 02/14/2023 02/14/2021, 06/10, 07/21/2014, Additional history exists Albumin/Creatinine Ratio 06/09/2023 06/08/2022, 05/11 CKD PHOS USE SMARTSET 63986 06/09/202305/11, 12/16/2020, 09/26/2020, Additional history exists GFR 09/16/2023 03/18/2023, 02/09, 11/20/2022, Additional history exists TSH 12/26/2023 12/25/2022, 05/11, 12/11/2021, Additional history exists CKD HGB USE SMARTSET 61975 03/18/202403/18, 03/18/2023, 11/20/2022, Additional history exists Depression Screening 04/02/2024 04/02/2023 DTaP,Tdap,and Td Vaccines (2 - Td or Tdap) 08/14/2024 08/14/2014, 01/25/2000 Pneumococcal Vaccine: 65+ Years Completed 01/06/2015, 08/19/2007 VITAMIN D LEVEL ONCE IN A LIFETIME-USE SMARTSET# [id number] Completed 12/11/2018, 07/07/2018, 10/06/2010 Influenza Vaccine (FLU [...] this encounter Medical Devices Implanted Type Area Nitrocellulose Maker Device Identifier Shelf Expiration Date Model / Serial / Lot Lead Tempo Temp Pacing - [id number] Implanted:Qty: 1 on 09/20/2020 by Dimitri Maya MD at [facility] [employer] [id number] 06/28/2021 [id number] / / [id number] documented as of this encounter Procedures Procedure [...] documented in this encounter Visit Diagnoses Diagnosis Dysphagia, oropharyngeal phase- Primary Dysphagia Dysphagia, unspecified [...] the patient have Health Care Power of Acid Patroller? No Full Code 09/25/2020 6:44 PM [...] the patient have Health Care Power of Acid Patroller? No Care Teams Youth Development Professional Relationship Specialty Start Date End Date Kalen Ribeiro MD [address] [facility] [place] [address] PCP - General 12/15/01 documented as of this encounter
--- OUTSIDE RECORDS SUMMARY | 2023-06-01 11:14 | External Medical Summary | Summary of Care ---
Author Name Unknown Organization [facility] Address [address] [place] [address] Phone [phone] Care Team Providers Care Harvest Manager Name Role Phone Kalen Ribeiro MD Primary Care Provider +1- [phone] Reason for Referral * Social Care (Within 3 days (urgent)) - Authorized Specialty Diagnoses / Procedures Referred By Nithin regan Referred To Contact Owner Diagnoses Oropharyngeal dysphagia Vocal cord paresis Brandt Reyes PA-C [address] [place] [address] Referral ID Status Reason Start Date Expiration Date Visits Requested Visits Authorized [id number] Authorized Specialty Services Required 04/02/[phone] Question Answer Referral Priority Within 3 days (urgent) Where should this appointment be scheduled? [facility] Role Waybill Clerk Waybill Clerk Referral Reason Frail Elderly, High Utilizer/Patient Comments Is patient being transitioned from [facility] to Complex Case Management? No Reason for Visit * Reason Onset Date Comments Follow Up 04/01/2023 Encounter Details Date Type Department Care Team (Late st Contact Info) Description 04/01/2023 Telephone Otolaryngology [facility] [address] [place] [address] Brandt Reyes PA-C [address] [place] [address] Follow Up Allergies Active Allergy Reactions Criticality Noted Date [...] Atherosclerotic heart diseas e of [place] coronary artery with other forms of angina pectoris 07/14/2021 Age-related osteoporosis wit hout current pathological fracture 07/14/2021 History of pulmonary embolism 06/08/2021 clinical research director 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 Yun in [place]. -case management involvement -- I tried to place referral but will ask PCP if they can assist Daughter, Suri, asks that we please call her instead of her mother as her mother is having a hard time hearing everyone and is getting frustrated, she can be reached at [phone] Brandt Reyes PA-C * Telephone Encounter - [...] and GI Thanks Tigre Samuels DO, FACS [facility] Otolaryngology Head and Neck Surgery [place], MD 04/01/2023 11:55 AM * Telephone Encounter - [...] mentioned [place] [facility] [place] has not heard anything regarding that. Daughter is asking if Brandt could please call her and talk to her. Advised she is out of the office today. Daughter stated to also ask the physician that had done the scope in the office. Suri can be reached at [phone]. documented in this encounter Plan of Treatment Upcoming Encounters Date Type Department Care Team (Late st Contact Info) Description 04/11/2023 12:40 PM EST Office Visit Otolaryngology/Head & Neck/Facial Plastic Surgery [address] [place] [address] Joesph Yun MD [address] [place] [address] 04/18/2023 11:00 AM EST Office Visit Orthopaedics [facility] [address] [address] Chava Huff PA-C [address] [place] [address] 06/28/2023 8:00 AM EDT Office Visit [facility] [address] [place] [phone] Kalen Ribeiro MD [address] [place] [address] 09/02/2023 9:00 AM EDT Office Visit Cardiology, [facility] [address] [facility] [place] [address] Halley Preston CRNP [address] [place] [address] 09/05/2023 10:30 AM EDT Rehab Services Voice Lab, [facility] [address] [place] [address] Lance Samuels, [facility] TRANSPORTATION DRIVER [facility] [place] [address] 09/05/2023 11:00 AM EDT Appointment Radiology, [facility] [address] [place] [phone] 02/10/2024 10:00 AM EST Cardiac Studies Cardiology, [facility] 132 [facility] [place] [address] [facility] 132 [facility] [place] [address] 02/13/2024 8:15 AM EST Cardiac Studies Cardiac Studies, [facility] 132 [facility] [place] [address] Scheduled Referrals Name Type Priority Associated Diagnoses [...] 06/09/2023 06/08/2022, 05/11 CKD PHOS USE SMARTSET 30788 06/09/202305/11, 12/16/2020, 09/26/2020, Additional history exists GFR 09/16/2023 03/18/2023, 02/09, 11/20/2022, Additional history exists TSH 12/26/2023 12/25/2022, 05/11, 12/11/2021, Additional history exists CKD HGB USE SMARTSET 75070 03/18/202403/18, 03/18/2023, 11/20/2022, Additional history exists Depression Screening 04/02/2024 04/02/2023 DTaP,Tdap,and Td Vaccines (2 - Td or Tdap) 08/14/2024 08/14/2014, 01/25/2000 Pneumococcal Vaccine: 65+ Years Completed 01/06/2015, 08/19/2007 VITAMIN D LEVEL ONCE IN A LIFETIME-USE SMARTSET# [id number] Completed 12/11/2018, 07/07/2018, 10/06/2010 Influenza Vaccine (FLU [...] this encounter Medical Devices Implanted Type Area Continuous Crusher Operator Device Identifier Shelf Expiration Date Model / Serial / Lot Lead Tempo Temp Pacing - [id number] Implanted:Qty: 1 on 09/20/2020 by Dimitri Maya MD at [facility] [employer] [id number] 06/28/2021 [id number] / / [id number] documented as of this encounter Visit Diagnoses Diagnosis Oropharyngeal dysphagia- Primary Dysphagia, oropharyngeal phase 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 No Full Code 09/25/2020 6:44 PM 09/26/2020 [...] the patient have Health Care Power of Sewer Head? No Care Teams Harvest Manager Relationship Specialty Start Date End Date Kalen Ribeiro MD [address] [place] [address] PCP - General 12/15/01 documented as of this encounter
--- OUTSIDE RECORDS SUMMARY | 2023-06-01 11:15 | External Medical Summary | Summary of Care ---
Author Name Unknown Organization [facility] Address [address] [place] [address] Phone [phone] Care Team Providers Care Avionics Test Technician Name Role Phone Kalen Ribeiro MD Primary Care Provider +1- [phone] Encounter Details Date Type Department Care Team (Late st Contact Info) Description 03/28/2023 2:30 PM EST Nurse Only Ancillary Department, [place] [address] [place] [address] [place], Nurse [address] [place] [address] Arrived Allergies Active Allergy Reactions Criticality Noted Date Comments Heparin 10/07/2020 Concern for HIT documented as of this encounter (statuses as of 03/28/2023) Medications Medication Sig Dispensed Refills Start Date [...] as of this encounter (statuses as of 03/28/2023) Active Problems Problem Noted Date Diagnosed Date [...] aorta 07/14/2021 Atherosclerotic heart diseas e of [place] coronary artery with other forms of angina pectoris 07/14/2021 Age-related osteoporosis wit hout current pathological fracture 07/14/2021 History of pulmonary embolism 06/08/2021 USP current use of anticoagulant therapy 1 04/12/2020 [...] as of this encounter (statuses as of 03/28/2023) Resolved Problems Problem Noted Date Diagnosed Date [...] as of this encounter (statuses as of 03/28/2023) Immunizations Name Administration Dates Next Due COVID-19 [...] as of this encounter Progress Notes * Adriane Adkins, ELIZABETH - 03/28/2023 1:44 PM EST Pt here for nurse visit for blood pressure check due to elevated blood pressure at last office visit. B/P 122/72 Pulse 71 BP Readings from Last 4 Encounters: 03/18/23 143/79 03/15/23 122/80 02/27/23 150/90 12/25/22 136/82 Telephone encounter made about this visit to provider. Patient aware that our office will call them back if there is a change with their medication or treatment, otherwise, no phone call will be made back to the patient. documented in this encounter Plan of Treatment Upcoming Encounters Date Type Department Care Team (Latest Contact Info) Description 04/05/2023 1:11 PM EST Hospital Encounter OR [facility], Operating Room, [facility] - 4th Floor [address] [place] [address] Manjit Webb MD [address] [place] [address] 04/05/2023 1:11 PM EST - 04/05/2023 1:51 PM EST Surgery OR [facility], Operating Room, [facility] - 4th Floor [address] [place] [address] Manjit Webb MD [address] [place] [address] ESOPHAGOGASTRODUODENOSCOPY (EGD), FLEXIBLE, TRANSORAL, DIAGNOSTIC 04/18/2023 11:00 AM EST Office Visit Orthopaedics [facility] [address] [place] [address] Chava Huff PA-C [address] [place] [address] 06/28/2023 8:00 AM EDT Office Visit [facility] [address] [facility] [phone] Kalen Ribeiro MD [address] [facility] [place] [address] 09/02/2023 9:00 AM EDT Office Visit Cardiology, [facility] [address] [place] [address] Halley Preston CRNP [address] [place] [address] 09/05/2023 10:30 AM EDT Rehab Services Voice Lab, [facility] 400 [facility] [place] [address] Lance Samuels, [facility] [address] [place] [address] 09/05/2023 11:00 AM EDT Appointment Radiology, [facility] [phone] 02/10/2024 10:00 AM EST Cardiac Studies Cardiology, [facility] 132 [facility] [place] [address] [facility] [address] [place] [address] 02/13/2024 8:15 AM EST Cardiac Studies Cardiac Studies, [facility] [address] [place] [address] Scheduled Procedures Name Priority Associated Diagnoses Date/Ti me ESOPHAGOGASTRODUODENOSCOPY ( EGD), FLEXIBLE, TRANSORAL, DIAGNOSTIC Dysphagia 04/05/2023 1:11 PM EST Health Maintenance Due Date Last Done Comments Zoster Vaccines (2 of 3) 07/17/2007 05/22/2007 COVID-19 Vaccine ( season) 2022 12/26/2021, 02/14/2021, 06/09/2020, Additional history exists DXA Scan 02/14/2023 02/14/2021, 06/10, 07/21/2014, Additional history exists Albumin/Creatinine Ratio 06/09/2023 06/08/2022, 05/11 CKD PHOS USE SMARTSET 35970 06/09/202305/11, 12/16/2020, 09/26/2020, Additional history exists Depression Screening 06/13/2023 06/12/2022 GFR 09/16/2023 03/18/2023, 02/09, 11/20/2022, Additional history exists TSH 12/26/2023 12/25/2022, 05/11, 12/11/2021, Additional history exists CKD HGB USE SMARTSET 34937 03/18/202403/18, 03/18/2023, 11/20/2022, Additional history exists DTaP,Tdap,and Td Vaccines (2 - Td or Tdap) 08/14/2024 08/14/2014, 01/25/2000 Pneumococcal Vaccine: 65+ Years Completed 01/06/2015, 08/19/2007 VITAMIN D LEVEL ONCE IN A LIFETIME-USE SMARTSET# [id number] Completed 12/11/2018, 07/07/2018, 10/06/2010 Influenza Vaccine (FLU [...] this encounter Medical Devices Implanted Type Area Concrete Block Plant Supervisor Device Identifier Shelf Expiration Date Model / Serial / Lot Lead Tempo Temp Pacing - [id number] Implanted:Qty: 1 on 09/20/2020 by Dimitri Maya MD at [facility] [employer] [id number] 06/28/2021 [id number] / / [id number] documented as of this encounter Advance Directives [...] the patient have Health Care Power of Enterprise Software Developer? No Full Code 09/25/2020 6:44 PM 09/26/2020 [...] the patient have Health Care Power of Enterprise Software Developer? No Care Teams Avionics Test Technician Relationship Specialty Start Date End Date Kalen Ribeiro MD [address] [place] [address] PCP - General 12/15/01 documented as of this encounter
--- OUTSIDE RECORDS SUMMARY | 2023-06-01 11:15 | External Medical Summary | Summary of Care ---
Author Name Unknown Organization [facility] Address [address] [place] [address] Phone [phone] Care Team Providers Care Chief Architect Name Role Phone Kalen Riebiro MD Primary Care Provider +1- [phone] Encounter Details Date Type Department Care Team (Late st Contact Info) Description 03/28/2023 2:30 PM EST Nurse Only Ancillary Department, [place] [address] [place] [address] [place], Nurse [address] [place] [address] Arrived Allergies Active Allergy Reactions Criticality Noted [...] aorta 07/14/2021 Atherosclerotic heart diseas e of [place] coronary artery with other forms of angina [...] Encounter OR [facility], Operating Room, [facility] - 4th Floor [address] [place] [address] Manjit Webb MD [address] [place] [address] 04/05/2023 1:11 PM EST - 04/05/2023 1:51 PM EST Surgery OR [facility], Operating Room, [facility] - 4th Floor [address] [place] [address] Manjit Webb MD [address] [place] [phone] ESOPHAGOGASTRODUODENOSCOPY (EGD), FLEXIBLE, TRANSORAL, DIAGNOSTIC 04/18/2023 11:00 AM EST Office Visit Orthopaedics [facility] [address] [place] [address] Chava Huff PA-C [address] [place] [address] 06/28/2023 8:00 AM EDT Office Visit [facility] [address] [facility] [phone] Kalen Ribeiro MD [address] [facility] [place] [address] 09/02/2023 9:00 AM EDT Office Visit Cardiology, [facility] [address] [place] [address] Halley Preston CRNP [address] [place] [address] 09/05/2023 10:30 AM EDT Rehab Services Voice Lab, [facility] 400 [facility] [place] [address] Lance Samuels, [facility] [address] [place] [address] 09/05/2023 11:00 AM EDT Appointment Radiology, [facility] 400 [facility] [phone] 02/10/2024 10:00 AM EST Cardiac Studies Cardiology, [facility] 132 [facility] [place] [address] [facility] [address] [place] [address] 02/13/2024 8:15 AM EST Cardiac Studies Cardiac Studies, [facility] [address] [place] [address] Scheduled Procedures Name Priority Associated Diagnoses Date/Ti me ESOPHAGOGASTRODUODENOSCOPY ( EGD), FLEXIBLE, TRANSORAL, DIAGNOSTIC Dysphagia 04/05/2023 1:11 PM EST Health Maintenance Due Date Last Done Comments Zoster Vaccines (2 of 3) 07/17/2007 05/22/2007 COVID-19 Vaccine ( season) 2022 12/26/2021, 02/14/2021, 06/09/2020, Additional history exists DXA Scan 02/14/2023 02/14/2021, 06/10, 07/21/2014, Additional history exists Albumin/Creatinine Ratio 06/09/2023 06/08/2022, 05/11 CKD PHOS USE SMARTSET 45674 06/09/202305/11, 12/16/2020, 09/26/2020, Additional history exists Depression Screening 06/13/2023 06/12/2022 GFR 09/16/2023 03/18/2023, 02/09, 11/20/2022, Additional history exists TSH 12/26/2023 12/25/2022, 05/11, 12/11/2021, Additional history exists CKD HGB USE SMARTSET 67181 03/18/202403/18, 03/18/2023, 11/20/2022, Additional history exists DTaP,Tdap,and Td Vaccines (2 - Td or Tdap) 08/14/2024 08/14/2014, 01/25/2000 Pneumococcal Vaccine: 65+ Years Completed 01/06/2015, 08/19/2007 VITAMIN D LEVEL ONCE IN A LIFETIME-USE SMARTSET# [id number] Completed 12/11/2018, 07/07/2018, 10/06/2010 Influenza Vaccine (FLU [...] this encounter Medical Devices Implanted Type Area Fan Engine Engineer Device Identifier Shelf Expiration Date Model / Serial / Lot Lead Tempo Temp Pacing - [id number] Implanted:Qty: 1 on 09/20/2020 by Dimitri Maya MD at [facility] [employer] [id number] 06/28/2021 [id number] / / [id number] documented as of this encounter Advance Directives [...] the patient have Health Care Power of Technical Healthcare Consultant? No Full Code 09/25/2020 6:44 PM 09/26/2020 [...] the patient have Health Care Power of Technical Healthcare Consultant? No Care Teams Chief Architect Relationship Specialty Start Date End Date Kalen Ribeiro MD [address] [place] [address] PCP - General 12/15/01 documented as of this encounter
--- OUTSIDE RECORDS SUMMARY | 2023-06-01 11:15 | External Medical Summary | Summary of Care ---
Author Name Unknown Organization [facility] [address] [place] [address] Phone [phone] Care Team Providers Care Weapons Officer [employer] Name Role Phone Kalen Ribeiro MD Primary Care Provider +1- [phone] Encounter Details Date Type Department Care Team (Latest Contact Info) Description 03/27/2023 8:58 AM EST - 03/27/2023 11:59 PM EST Hospital Encounter Radiology, [facility] [address] [place] [address] Arrived Discharge Disposition: Home - Self Care [...] fracture 07/14/2021 History of pulmonary embolism 06/08/2021 intermediate manager current use of anticoagulant therapy 1 [...] EST Hospital Encounter OR [facility], Operating Room, [facility] - 4th Floor [address] [place] [address] Manjit Webb MD [address] [place] [address] 04/05/2023 1:11 PM EST - 04/05/2023 1:51 PM EST Surgery OR [facility], Operating Room, [facility] - 4th Floor [address] [place] [address] Manjit Webb MD [address] [place] [address] ESOPHAGOGASTRODUODENOSCOPY (EGD), FLEXIBLE, TRANSORAL, DIAGNOSTIC 04/18/2023 11:00 AM EST Office Visit Orthopaedics [facility] [address] [place] [address] Chava Huff PA-C [address] [place] [address] 06/28/2023 8:00 AM EDT Office Visit [facility] [address] [place] [address] Kalen Ribeiro MD [address] [place] [address] 09/02/2023 9:00 AM EDT Office Visit Cardiology, [facility] [place] [address] Halley Preston CRNP [address] [place] [address] 02/10/2024 10:00 AM EST Cardiac Studies Cardiology, [facility] 132 [facility] [place] [address] [facility] [place] [address] 02/13/2024 8:15 AM EST Cardiac Studies Cardiac Studies, [facility] [address] [facility] [place] [address] Scheduled Procedures Name Priority Associated Diagnoses Date/Ti me ESOPHAGOGASTRODUODENOSCOPY ( EGD), FLEXIBLE, TRANSORAL, DIAGNOSTIC Dysphagia 04/05/2023 1:11 PM EST Health Maintenance Due Date Last Done Comments Zoster Vaccines (2 of 3) 07/17/2007 05/22/2007 COVID-19 Vaccine ( - season) 2022 12/26/2021, 02/14/2021, 06/09/2020, Additional history exists DXA Scan 02/14/2023 02/14/2021, 06/10, 07/21/2014, Additional history exists Albumin/Creatinine Ratio 06/09/2023 06/08/2022, 05/11 CKD PHOS USE SMARTSET 95086 06/09/202305/11, 12/16/2020, 09/26/2020, Additional history exists Depression Screening 06/13/2023 06/12/2022 GFR 09/16/2023 03/18/2023, 02/09, 11/20/2022, Additional history exists TSH 12/26/2023 12/25/2022, 05/11, 12/11/2021, Additional history exists CKD HGB USE SMARTSET 74624 03/18/202403/18, 03/18/2023, 11/20/2022, Additional history exists DTaP,Tdap,and Td Vaccines (2 - Td or Tdap) 08/14/2024 08/14/2014, 01/25/2000 Pneumococcal Vaccine: 65+ Years Completed 01/06/2015, 08/19/2007 VITAMIN D LEVEL ONCE IN A LIFETIME-USE SMARTSET# [id number] Completed 12/11/2018, 07/07/2018, 10/06/2010 Influenza Vaccine (FLU [...] this encounter Medical Devices Implanted Type Area Bumper Machine Operator Device Identifier Shelf Expiration Date Model / Serial / Lot Lead Tempo Temp Pacing - [id number] Implanted:Qty: 1 on 09/20/2020 by Dimitri Maya MD [place] [facility] [employer] [id number] 06/28/2021 [id number] / / [id number] documented as of this encounter Procedures Procedure Name Priority Date/Time Associated Diagnosis Comments FLUORO ESOPHAGUS DOUBLE CONTRAST Routine 03/27/2023 9:40 AM EST documented in this encounter Administered Medications Inactive Administered Medications - up to 3 most recent administrations Medication Order MAR Action Action Date Dose Rate Site barium sulfate 60% (Ez Paque) oral susp 355 mL 355 mL, Oral, ONCE, On Sat03/27/23 at 0944, For 1 dose, Radiology Medication Routing (Non-IR) Given 03/27/2023 9:44 AM EST 355 mL barium sulfate 98% (E-Z HD) oral susp 100 mL 100 mL, Oral, ONCE, On Sat03/27/23 at 0944, For 1 dose, Radiology Medication Routing (Non-IR) Given 03/27/2023 9:44 AM EST 100 mL Sod bicarb-citric ac-simeth (E-Z-Gas) oral granules 1 Packet 1 Packet, Oral, ONCE, On Sat03/27/23 at 0944, For 1 dose, Radiology Medication Routing (Non-IR) Given 03/27/2023 9:44 AM EST 1 Packet documented in this encounter Advance Directives Latest [...] the patient have Health Care Power of Android Architect? No Full Code 09/25/2020 6:44 PM [...] the patient have Health Care Power of Android Architect? No Care Teams Weapons Officer Naval Activity Relationship Specialty Start Date End Date Kalen Ribeiro MD [address] [place] [address] PCP - General 12/15/01 documented as of this encounter
--- OUTSIDE RECORDS SUMMARY | 2023-06-01 11:15 | External Medical Summary | Summary of Care ---
Author Name Unknown Organization [facility] Address [address] [place] [address] Phone [phone] Care Team Providers Care Assembler Equipment Name Role Phone Kalen Ribeiro MD Primary Care Provider +1- [phone] Reason for Visit * Reason Onset Date Comments Procedure 03/18/2023 Outpatient Testing 03/18/2023 Encounter Details Date Type Department Care Team ([facility] st Contact Info) Description 03/18/2023 Telephone [facility] Gastroenterology [address] [place] [address] Lisa Olsen PA-C [address] [facility] [place] [address] Procedure (/); Outpatient Testing Allergies Active Allergy Reactions Criticality Noted Date Comments Heparin 10/07/2020 Concern for HIT documented as of this encounter (statuses as of 03/19/2023) Medications Medication Sig Dispensed Refills Start Date [...] 10/05/2020 Active Amoxicillin 500 MG Oral Capsule (Amoxil)Indications: S/P TAVR (transcatheter aortic valve replacement) Take 4 Caps by mouth once as needed (prior to dental work) for up to 1 dose. Take 4 capsules 1 hour prior to any dental work 4 Cap 4 11/10/2020 Active Biotin 5 MG Oral Capsule Take [...] as of this encounter (statuses as of 03/19/2023) Active Problems Problem Noted Date Diagnosed Date [...] aorta 07/14/2021 Atherosclerotic heart diseas e of [place] coronary artery with other forms of angina pectoris 07/14/2021 Age-related osteoporosis wit hout current pathological fracture 07/14/2021 History of pulmonary embolism 06/08/2021 intermediate card tender current use of anticoagulant therapy 1 04/12/2020 [...] as of this encounter (statuses as of 03/19/2023) Resolved Problems Problem Noted Date Diagnosed Date [...] as of this encounter (statuses as of 03/19/2023) Immunizations Name Administration Dates Next Due COVID-19 [...] encounter Miscellaneous Notes * Telephone Encounter - Orin Chong, CARLIE - 03/18/2023 5:02 PM EST Esophogram 03/29/23 at 10:00 am at [facility] Will schedule EGD as soon as OR time available. LMM for pts daughter to call back. * Telephone Encounter - Lisa Olsen PA-C - 03/18/2023 4:21 PM EST D/W Dr. Squires - esophagram first, then EGD for completion of work up. Esophagram already ordered. EGD order placed just now. Please schedule. Patient would prefer [facility] if possible for all testing. Otherwise, she requests to come to [facility]. Does not wish to go to [facility] if possible. documented in this encounter Plan of Treatment Upcoming Encounters Date Type Department Care Team (Late st Contact Info) Description 03/25/2023 9:40 AM EST Office Visit Otolaryngology [facility] [address] [place] [address] Brandt Reyes PA-C 132 [facility] [place] [address] 03/26/2023 9:30 AM EST Nurse Only Ancillary Department, [address] [address] [place], Nurse [facility] [place] [address] 03/29/2023 10:00 AM EST Appointment Radiology, [address] [address] 04/18/2023 11:00 AM EST Office Visit Orthopaedics [facility] [address] [place] [address] Chava Huff PA-C [address] [place] [address] 06/28/2023 8:00 AM EDT [facility] Visit [facility] [place] [address] [place] [phone] Kalen Ribeiro MD [address] [place] [address] 09/02/2023 9:00 AM EDT Office Visit Cardiology, [facility] [address] Halley Preston CRNP [address] [facility] [address] 02/10/2024 10:00 AM EST Cardiac Studies Cardiology, [facility] [address] [facility] 132 [facility] [address] 02/13/2024 8:15 AM EST Cardiac Studies Cardiac Studies, [facility] [address] [facility] [address] Scheduled Orders Name Type Priority Associated Diagnoses Orde r Schedule EGD, FLEXIBLE, DIAGNOSTIC Procedures Routine Oropharyngeal dysphagia Ordered: 03/18/2023 Scheduled Procedures Name Priority Associated Diagnoses Date/Ti me ESOPHAGOGASTRODUODENOSCOPY ( EGD), FLEXIBLE, TRANSORAL, DIAGNOSTIC Dysphagia Health Maintenance Due Date Last Done Comments Zoster Vaccines (2 of 3) 07/17/2007 05/22/2007 COVID-19 Vaccine ( season) 2022 12/26/2021, 02/14/2021, 06/09/2020, Additional history exists DXA Scan 02/14/2023 02/14/2021, 06/10, 07/21/2014, Additional history exists Albumin/Creatinine Ratio 06/09/2023 06/08/2022, 05/11 CKD PHOS USE SMARTSET 61146 06/09/202305/11, 12/16/2020, 09/26/2020, Additional history exists Depression Screening 06/13/2023 06/12/2022 GFR 09/16/2023 03/18/2023, 02/09, 11/20/2022, Additional history exists TSH 12/26/2023 12/25/2022, 05/11, 12/11/2021, Additional history exists CKD HGB USE SMARTSET 44927 03/18/202403/18, 03/18/2023, 11/20/2022, Additional history exists DTaP,Tdap,and Td Vaccines (2 - Td or Tdap) 08/14/2024 08/14/2014, 01/25/2000 Pneumococcal Vaccine: 65+ Years Completed 01/06/2015, 08/19/2007 VITAMIN D LEVEL ONCE IN A LIFETIME-USE SMARTSET# [id number] Completed 12/11/2018, 07/07/2018, 10/06/2010 Influenza Vaccine (FLU [...] this encounter Medical Devices Implanted Type Area Professional Shopper Device Identifier Shelf Expiration Date Model / Serial / Lot Lead Tempo Temp Pacing - [id number] Implanted:Qty: 1 on 09/20/2020 by Dimitri Maya MD at [facility] [employer] [id number] 06/28/2021 [id number] / / [id number] documented as of this encounter Visit Diagnoses [...] the patient have Health Care Power of Blanket Folder? No Full Code 09/25/2020 6:44 PM 09/26/2020 [...] the patient have Health Care Power of Blanket Folder? No Care Teams Assembler Equipment Relationship Specialty Start Date End Date Kalen Ribeiro MD [address] [place] [address] PCP - General 12/15/01 documented as of this encounter
--- OUTSIDE RECORDS SUMMARY | 2023-06-01 11:15 | External Medical Summary | Summary of Care ---
Author Name Unknown Organization [facility] Address [address] [place] [address] Phone [phone] Care Team Providers Care Securities Trader Name Role Phone Kalen Ribeiro MD Primary Care Provider [phone]- [phone] Reason for Visit * Reason Onset Date Comments Procedure 03/18/2023 Outpatient Testing 03/18/2023 Encounter Details Date Type Department Care Team ([facility] st Contact Info) Description 03/18/2023 Telephone [facility] Gastroenterology [address] [place] [address] Lisa Olsen PA-C 310 [facility] [place] [address] Procedure (/); Outpatient Testing Allergies Active Allergy [...] fracture 07/14/2021 History of pulmonary embolism 06/08/2021 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 Webb * Telephone Encounter - Orin Chong OSA - 03/18/2023 5:02 PM EST Esophogram 03/29/23 at 10:00 am at [facility] Will schedule EGD as soon as OR time available. LMM for pts daughter to call back. * Telephone Encounter - Lisa Olsen PA-C - 03/18/2023 4:21 PM EST D/W Dr. Squires - esophagram first, then EGD for completion of work up. Esophagram already ordered. EGD order placed just now. Please schedule. [place] [facility] [place] testing. Otherwise, she requests to come to [facility]. Does not wish to go to [facility] if possible. documented in this encounter Plan of Treatment Upcoming Encounters Date Type Department Care Team (Late st Contact Info) Description 03/25/2023 9:40 AM EST Office Visit [facility]ol[facility]ology [facility] [place] [address] Brandt Reyes PA-C 132 [facility] [place] [address] 03/26/2023 9:30 AM EST Nurse Only Ancillary Department, [address] [address] [place], Nurse [facility] E [facility] [place] [address] 03/29/2023 10:00 AM EST Appointment Radiology, [address] [place] [address] 04/18/2023 11:00 AM EST Office Visit Orthopaedics [facility] [address] [facility] [place] [address] Chava Huff PA-C [address] [place] [address] 06/28/2023 8:00 AM EDT Office Visit [facility] [address] [place] [facility] [place] [phone] Kalen Ribeiro MD [address] [place] [facility] [place] [address] 09/02/2023 9:00 AM EDT Office Visit Cardiology, [facility] [place] [address] Halley Preston CRNP 132 [facility] [place] [address] 02/10/2024 10:00 AM EST Cardiac Studies Cardiology, [facility] 132 [facility] [place] [address] [facility] 132 [facility] [place] [address] 02/13/2024 8:15 AM EST Cardiac Studies Cardiac Studies, [facility] 132 [facility] [place] [address] Scheduled Orders Name Type Priority Associated Diagnoses [...] 06/09/2023 06/08/2022, 05/11 CKD PHOS USE SMARTSET 25925 06/09/202305/11, 12/16/2020, 09/26/2020, Additional history exists Depression Screening 06/13/2023 06/12/2022 GFR 09/16/2023 03/18/2023, 02/09, 11/20/2022, Additional history exists TSH 12/26/2023 12/25/2022, 05/11, 12/11/2021, Additional history exists CKD HGB USE SMARTSET 14912 03/18/202403/18, 03/18/2023, 11/20/2022, Additional history exists DTaP,Tdap,and Td Vaccines (2 - Td or Tdap) 08/14/2024 08/14/2014, 01/25/2000 Pneumococcal Vaccine: 65+ Years Completed 01/06/2015, 08/19/2007 VITAMIN D LEVEL ONCE IN A LIFETIME-USE SMARTSET# 00539 Completed 12/11/2018, 07/07/2018, 10/06/2010 Influenza Vaccine (FLU [...] this encounter Medical Devices Implanted Type Area Wedding Florist Device Identifier Shelf Expiration Date Model / Serial / Lot Lead Tempo Temp Pacing - [id number] Implanted:Qty: 1 on 09/20/2020 by Dimitri Maya MD at [facility] [place] [email or web address] [id number] 06/28/2021 [id number] / / [id number] documented as of this encounter Visit Diagnoses [...] the patient have Health Care Power of Automotive General Manager? No Full Code 09/25/2020 6:44 PM [...] the patient have Health Care Power of Automotive General Manager? No Care Teams Securities Trader Relationship Specialty Start Date End Date Kalen Ribeiro MD [address] [place] [address] PCP - General 12/15/01 documented as of this encounter
--- OUTSIDE RECORDS SUMMARY | 2023-06-01 11:15 | External Medical Summary | Summary of Care ---
Author Name Unknown Organization [facility] Address [address] [place] [address] Phone [phone] Care Team Providers Care Machine Fitter Name Role Phone Kalen Ribeiro MD Primary Care Provider +1- [phone] Reason for Visit * Reason Onset Date Comments Procedure 03/18/2023 Outpatient Testing 03/18/2023 Encounter Details Date Type Department Care Team ([facility] st Contact Info) Description 03/18/2023 Telephone [facility] Gastroenterology [address] [place] [address] Lisa Olsen PA-C 310 [facility] [place] [address] Procedure (/); Outpatient Testing Allergies Active Allergy Reactions Criticality Noted Date Comments Heparin 10/07/2020 Concern for HIT documented as of this encounter (statuses as of 03/18/2023) Medications Medication Sig Dispensed Refills Start Date [...] as of this encounter (statuses as of 03/18/2023) Active Problems Problem Noted Date Diagnosed Date [...] aorta 07/14/2021 Atherosclerotic heart diseas e of [place] coronary artery with other forms of angina pectoris 07/14/2021 Age-related osteoporosis wit hout current pathological fracture 07/14/2021 History of pulmonary embolism 06/08/2021 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 LMM for pts daughter to call back. * Telephone Encounter - Lisa Olsen PA-C - 03/18/2023 4:21 PM EST D/W Dr. Squires - esophagram first, then EGD for completion of work up. Esophagram already ordered. EGD order placed just now. Please schedule. Patient would prefer [facility] if possible for all testing. Otherwise, she requests to come to [facility]. Does not wish to go to [facility] if possible. documented in this encounter Plan of Treatment Upcoming Encounters Date Type Department Care Team (Late st Contact Info) Description 03/25/2023 9:40 AM EST Office Visit Otolaryngology [facility] [address] [address] Brandt Reyes PA-C 132 [facility] [place] [address] 03/26/2023 9:30 AM EST Nurse Only Ancillary Department, [address] [address] [place], Nurse [facility] [place] [address] 03/29/2023 10:00 AM EST Appointment Radiology, [address] [address] 04/18/2023 11:00 AM EST Office Visit Orthopaedics [facility] [address] [place] [address] Chava Huff PA-C [address] [place] [address] 06/28/2023 8:00 AM EDT Office Visit [facility], [place] [address] [place] [phone] Kalen Ribeiro MD [address] [place] [address] 09/02/2023 9:00 AM EDT Office Visit Cardiology, [facility] [address] [place] [facility] [address] Halley Preston CRNP 132 [facility] [address] 02/10/2024 10:00 AM EST Cardiac Studies Cardiology, [facility] [address] [facility] [address] [facility] [address] 02/13/2024 8:15 AM EST Cardiac Studies Cardiac Studies, [facility] [address] [place] [address] Scheduled Orders Name Type Priority Associated Diagnoses [...] 06/09/2023 06/08/2022, 05/11 CKD PHOS USE SMARTSET 31890 06/09/202305/11, 12/16/2020, 09/26/2020, Additional history exists Depression Screening 06/13/2023 06/12/2022 GFR 09/16/2023 03/18/2023, 02/09, 11/20/2022, Additional history exists TSH 12/26/2023 12/25/2022, 05/11, 12/11/2021, Additional history exists CKD HGB USE SMARTSET 21206 03/18/202403/18, 03/18/2023, 11/20/2022, Additional history exists DTaP,Tdap,and Td Vaccines (2 - Td or Tdap) 08/14/2024 08/14/2014, 01/25/2000 Pneumococcal Vaccine: 65+ Years Completed 01/06/2015, 08/19/2007 VITAMIN D LEVEL ONCE IN A LIFETIME-USE SMARTSET# [id number] Completed 12/11/2018, 07/07/2018, 10/06/2010 Influenza Vaccine (FLU [...] this encounter Medical Devices Implanted Type Area Traveling Phlebotomist Device Identifier Shelf Expiration Date Model / Serial / Lot Lead Tempo Temp Pacing - [id number] Implanted:Qty: 1 on 09/20/2020 by Dimitri Maya MD at [facility] [place] [employer] [id number] 06/28/2021 [id number] / / [id number] documented as of this encounter Visit Diagnoses [...] patient have Health Care Power of Retail Shift Leader? No Full Code 09/25/2020 6:44 PM 09/26/2020 [...] patient have Health Care Power of Retail Shift Leader? No Care Teams Machine Fitter Relationship Specialty Start Date End Date Kalen Ribeiro MD [address] [place] [address] PCP - General 12/15/01 documented as of this encounter
--- OUTSIDE RECORDS SUMMARY | 2023-06-01 11:15 | External Medical Summary | Summary of Care ---
Author Name Unknown Organization [facility] Address [address] [place] [address] Phone [phone] Care Team Providers Care Social Media Project Manager Name Role Phone Kalen Ribeiro MD Primary Care Provider +1- [phone] Reason for Visit * Reason Onset Date Comments Procedure 03/18/2023 Outpatient Testing 03/18/2023 Encounter Details Date Type Department Care Team ([facility] st Contact Info) Description 03/18/2023 Telephone [facility] Gastroenterology [address] [place] [address] Lisa Olsen PA-C 310 [facility] [place] [address] Procedure (/); Outpatient Testing Allergies Active Allergy [...] aorta 07/14/2021 Atherosclerotic heart diseas e of [place] coronary artery with other forms of angina pectoris 07/14/2021 Age-related osteoporosis wit hout current pathological fracture 07/14/2021 History of pulmonary embolism 06/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 Squires - esophagram first, then EGD for completion of work up. Esophagram already ordered. EGD order placed just now. Please schedule. Patient would prefer [facility] location if possible for all testing. Otherwise, she requests to come to [facility]. Does not wish to go to [facility] if possible. documented in this encounter Plan of Treatment Upcoming Encounters Date Type Department Care Team (Late st Contact Info) Description 03/25/2023 9:40 AM EST Office Visit Otolaryngology [facility] 132 [facility] [place] [address] Brandt Reyes PA-C [address] [place] [address] 03/26/2023 9:30 AM EST Nurse Only Ancillary Department, [place] [address] [address] [facility] [address] [place], [facility] [address] [facility] [address] 03/29/2023 10:00 AM EST Appointment Radiology, [address], [place] [address] 04/18/2023 11:00 AM EST Office Visit Orthopaedics [facility] [place] [address] Cahva Huff PA-C [facility] [place] [address] 06/28/2023 8:00 AM EDT Office Visit Family [facility], [place] [address] [facility] [phone] Kalen Ribeiro MD [address] [facility] [address] 09/02/2023 9:00 AM EDT Office Visit Cardiology, [facility] [place] [address] Halley Preston CRNP [address] [place] [address] 02/10/2024 10:00 AM EST Cardiac Studies Cardiology, [facility] [address] [place] [address] [place], [facility] [address] [place] [address] 02/13/2024 8:15 AM EST Cardiac Studies Cardiac Studies, [facility] [address] [place] [address] Scheduled Orders Name Type Priority Associated Diagnoses [...] 06/09/2023 06/08/2022, 05/11 CKD PHOS USE SMARTSET 01009 06/09/202305/11, 12/16/2020, 09/26/2020, Additional history exists Depression Screening 06/13/2023 06/12/2022 GFR 09/16/2023 03/18/2023, 02/09, 11/20/2022, Additional history exists TSH 12/26/2023 12/25/2022, 05/11, 12/11/2021, Additional history exists CKD HGB USE SMARTSET 15866 03/18/202403/18, 03/18/2023, 11/20/2022, Additional history exists DTaP,Tdap,and Td Vaccines (2 - Td or Tdap) 08/14/2024 08/14/2014, 01/25/2000 Pneumococcal Vaccine: 65+ Years Completed 01/06/2015, 08/19/2007 VITAMIN D LEVEL ONCE IN A LIFETIME-USE SMARTSET# [id number] Completed 12/11/2018, 07/07/2018, 10/06/2010 Influenza Vaccine (FLU [...] this encounter Medical Devices Implanted Type Area Sales And Catering Coordinator Device Identifier Shelf Expiration Date Model / Serial / Lot Lead Tempo Temp Pacing - [id number] Implanted:Qty: 1 on 09/20/2020 by Dimitri Maya MD at [facility] [place] [employer] [id number] 06/28/2021 [id number] / / [id number] documented as of this encounter Visit Diagnoses [...] patient have Health Care Power of Technical Supervisor? No Full Code 09/25/2020 6:44 PM [...] patient have Health Care Power of Technical Supervisor? No Care Teams Social Media Project Manager Relationship Specialty Start Date End Date Kalen Ribeiro MD [address] [facility] [place] [address] PCP - General 12/15/01 documented as of this encounter
--- OUTSIDE RECORDS SUMMARY | 2023-06-01 11:15 | External Medical Summary | Summary of Care ---
Author Name Unknown Organization [facility] Address [address] [place] [address] Phone [phone] Care Team Providers Care Grid Caster Name Role Phone Kalen Ribeiro MD Primary Care Provider [phone]- [phone] Reason for Visit * Reason Comments NEW PATIENT Dysphagia and hoarse ness * Evaluate & Treat - Unlimited Visits (Within 3 days (urgent)) - Authorized Specialty Diagnoses / Procedures Referred By Nithin regan Referred To Contact Otolaryngology Diagnoses Oropharyngeal dysphagia Hoarseness of voice Kalen Ribeiro MD [address] [place] [address] Referral ID Status Reason Start Date Expiration Date Visits Requested Visits Authorized [id number] Authorized Specialty Services Required 03/15/[phone] Encounter Details Date Type Department Care Team (Late st Contact Info) Description 03/25/2023 9:40 AM EST Office Visit Otolaryngology [facility] 132 [facility] [place] [address] Brandt Reyes PA-C 132 [facility] [place] [address] Vocal cord paresis*; Oropharyngeal dysphagia; Hoarseness of voice [R49.0] Allergies Active Allergy Reactions Criticality Noted Date Comments Heparin 10/07/2020 Concern for HIT documented as of this encounter (statuses as of 03/25/2023) Medications Medication Sig Dispensed Refills Start Date [...] as of this encounter (statuses as of 03/25/2023) Active Problems Problem Noted Date Diagnosed Date [...] aorta 07/14/2021 Atherosclerotic heart diseas e of [place] coronary artery with other forms of angina pectoris 07/14/2021 Age-related osteoporosis wit hout current pathological fracture 07/14/2021 History of pulmonary embolism 06/08/2021 longterm current use of anticoagulant therapy 1 04/12/2020 [...] as of this encounter (statuses as of 03/25/2023) Resolved Problems Problem Noted Date Diagnosed Date [...] as of this encounter (statuses as of 03/25/2023) Immunizations Name Administration Dates Next Due COVID-19 [...] Pressure - - Pulse - - Temperature 35.2 C (95.4 F) 03/25/2023 9:33 AM ES T Respiratory Rate - - Oxygen Saturation - - Inhaled Oxygen Concentration - - Weight 49.5 kg (109 lb 1.6 oz) 03/25/2023 9:33 A M EST Height 145.4 cm (4' 9.25") 03/25/2023 9:33 AM ES T Body Mass Index 23.4 03/25/2023 9:33 AM EST documented in this encounter Functional [...] as of this encounter Progress Notes * Brandt Reyes PA-C - 03/25/2023 9:38 AM EST 03/25/2023 HISTORY OF PRESENT ILLNESS This 82 year old female is seen at the request of Kalen Ribeiro MD for the initial evaluationof dysphagia, hoarseness. The patient has past medical history of hypertension, hyperlipidemia, GERD, iron-deficiency anemia,paroxysmal atrial fibrillation, PE, CKD. The symptoms started 2 weeks ago and are stable-- started suddenly, was able to eat breakfast and lunch without difficulty, went to eat dinner and was not able to chew and swallow. She also noticed alot of phlegm in her throat. Notes she spits out a lot of phlegm throughout the day. She has had an ongoing cough and phlegm for the last year but seems like much more phlegm since this all started. Also started with hoarseness at the same time. She notes she is able to swallow liquids and her own saliva however she has not been able to swallow anything solid even after chewing it thoroughly. She can have some thickened liquids like applesauce and pudding but still is somewhat difficult to get down. She has to force things down with water.She has never had this before. No other neurological symptoms. No recent EGD. She does admit to some weight loss in the last few weeks due to not eating as much, feels very weak, as well. Has been supplementing with protein shakes. Denies any night sweats, chest pain, shortness of breath, vomiting, ear pain, headaches, dizziness. She was seen by her PCP 03/15/23 and in the ER 03/18/23-- had no acute findings on chest or neck CT. GI consult while in ER-- they plan for swallow study 03/29/23, and EGD 04/05/23. No smoking hx. 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 Garcia LUMBAR / SACRAL EPIDURAL, SINGLE LEVEL 10/04/2015 INJECTION TRANSFORAMINAL EPIDURAL LUMBAR OR SACRAL performed by David Costello DO at OR [facility] LUMBAR / SACRAL EPIDURAL, SINGLE LEVEL 10/25/2015 INJECTION TRANSFORAMINAL EPIDURAL LUMBAR OR SACRAL performed by David Costello DO at OR [facility] MISCELLANEOUS ORDER ([facility] ONLY) 12/15 excision lipoma forehead REPLACE AORTIC VALVE, PERCUTANEOUS FEMORAL N/A 09/20/2020 REPLACE AORTIC VALVE, PERCUTANEOUS FEMORAL performed by Dimitri Maya MD at [facility] REPLACE AORTIC VALVE, PERCUTANEOUS FEMORAL N/A 09/20/2020 REPLACE AORTIC VALVE, PERCUTANEOUS FEMORAL performed by Alexys Almazan MD, PhD at [facility] TOTAL ABD HYSTERECTOMY W/WO REMOVAL OF TUBE(S) 2007 SHARIF w/ Bilateral Salpingo-Oophorectomy Social History Socioeconomic History Marital status: Spouse name: Juventino Number of children: 2 Years of education: Not on file Highest education level: Not on file Occupational History Not on file Tobacco Use Smoking status: Never Passive exposure: Past Smokeless tobacco: Never Vaping Use Vaping Use: Never used Substance and Sexual Activity Alcohol use: No Drug use: Never Sexual activity: Yes Partners: Male Comment: none Other Topics Concern Service Not Asked Blood Transfusions Not Asked Caffeine Concern Not Asked Occupational Exposure Not Asked Hobby Hazards Not Asked Sleep Concern Not Asked Stress Concern Not Asked Weight Concern Not Asked Special Diet Yes Comment: takes ca with vit d Back Care Not Asked Exercise Yes Comment: walks daily 3-4 miles Bike Helmet Not Asked Seat Belt Yes Self-Exams Yes Social History Narrative Not on file Social Determinants of Health Financial Resource Strain: Not on file Food Insecurity: No Food Insecurity (12/11/2018) Hunger Vital Sign Worried About Running Out of Food in the Last Year: Never true Ran Out of Food in the Last Year: Never true Transportation Needs: Not on file Physical Activity: Not on file Stress: Not on file Social Connections: Not on file Intimate Partner Violence: Not on file Housing Stability: Not on file Family History Problem Relation Age of Onset Renal Hx Mother renal failure (? HTN). Dialysis Thyroid Disorder Mother Heart Disorder Father MA age 78 Heart Disorder Grandfather (Paternal) MA age 65 Heart Disorder Brother MA age 39 Cancer Aunt (Unspecified) colon Renal Hx Uncle (Unspecified) renal failure (?htn) - s/p transplant No Past Hx None no gyne cancers, no breast ca Medications: Current Outpatient Medications Medication Sig Dispense Refill [...] BY MOUTH ONCE DAILY 90 Tablet 3 Lisinopril 2.5 MG Oral Tablet (Prinivil) Take 1 Tablet by mouth in the morning. 30 Tablet 11 Amoxicillin 500 MG Oral Capsule (Amoxil) Take 4 Caps by mouth once as needed (prior to dental work)for up to 1 dose. Take 4 capsules 1 hour prior to any dental work (Patient not taking: Reported on 03/25/2023) 4 Cap 4 Pantoprazole Sodium 40 MG Oral Tablet Delayed Release (Protonix) TAKE 1 TABLET BY MOUTH ONCE DAILY (Patient not taking: Reported on 03/25/2023) 90 Tablet 1 No current facility-administered medications for this visit. Review of patient's allergies indicates: Allergen Reactions Heparin Concern for HIT REVIEW OF SYSTEMS Negative for constitutional, heart, lung, liver, kidney, digestive, hematologic, neurologic, rheumatologic, or endocrine complaints except as per history of present illness and past medical history. PHYSICAL EXAM: Temp 35.2 C (95.4 F) (Tympanic) | Ht 1.454 m (4' 9.25") | Wt 49.5 kg (109 lb 1.6 oz) | BMI 23.40 kg/m | BSA 1.41 m General: this is a healthy appearing female who appears their stated age. The patient is alert and appropriately verbally conversant without hoarseness. Face: The face was inspected and no cutaneous masses or lesions were visualized. There was no erythema or edema noted. Facial movement was symmetric without weakness. No skin lesions were detected. There was no sinus tenderness elicited. The parotid and submandibular glands were normal to palpation. Eyes: Examination of the eyes revealed no lesions. Pupils were equal, round, and reactive to light and accommodation. Extra-ocular muscle function was intact. No nystagmus was observed. Cranial Nerves: Cranial nerves II, III, IV, and were noted to be intact via extra-ocular muscle movement testing. Cranial nerve VII noted to be intact and symmetric by facial movement. Cranial nerve VIII gross hearing was normal (tuning fork not used). Cranial nerves IX and X noted to be intact by gag reflex and palatal movement. Cranial nerve XII noted to be intact by active and symmetric tongue movement. Nose: Septum nonobstructing, turbinates normal, no masses, polyps, or mucopus. Oral Cavity: Examination of the oral cavity revealed no mass lesions nor infection. The palate was noted to be intact without evidence of clefting. The tongue exhibited normal mobility. Mucosa was moist without lesion. The lips were free of lesion. Gums were free of inflammation. Dentition: Unremarkable Oropharynx: The oral pharynx was free of mass lesion or mucosal abnormality. The palate was noted to be without lesions. The uvula was normal appearing. The tonsils were unremarkable. Ears: Examination of the ears revealed that the auricles were normally formed with no lesions. The external auditory canals were cleaned of any obstructing cerumen. The tympanic membranes were intactand freely mobile to pneumatoscopy without perforation or significant retraction pockets. Neck: Visualization and palpation of the neck revealed no mass lesions, no thyromegaly or thyroid masses. No skin lesions or inflammatory processes were detected. The cervical musculature was normal to palpation. Lymphatics (cervical): There were no palpable lymph nodes in the posterior triangle, submandibular triangle, jugulodigastric region, or central neck PROCEDURE NOTE Because of inability to cooperate with the mirror exam or in order to get a better assessment of the larynx, fiberoptic examination of the larynx was performed. The nose was first topically decongested with topical oxymetazoline 0.05% spray and topically anesthetized with topical Lidocaine 4% spray. The patient tolerated the procedure well. Patient should refrain from eating or drinking for 30-45minutes due to anesthesia of the pharynx and possible interference with swallowing. Fiberoptic examination revealed no mass lesions. Vocal cord mobility was abnormal-- left sided vocal cord paresis. No vocal cord masses were visualized. The pyriform sinuses were free of any mass lesions. There was no significant edema or erythema of the larynx. Dr. Tigre Samuels performed the procedure. ASSESSMENT: Encounter Diagnoses Name Primary? Vocal cord paresis Yes Oropharyngeal dysphagia Plan: Findings of examination and recommendations were discussed with the patient.She was seen withDr. Tigre Samuels. Recommend PCP consider MRI for evaluation of brainstem stroke given sudden onset of symptoms. Keep appnt for swallow study, ask GI to send report to us, as well. Should see speech language pathology for some therapy to improve swallowing pending swallow study results. Can consider injection into vocal cord in future to help with unilateral vocal cord paresis in [place] pending results of swallow study. F/U with any concerns. Pt verbalized understanding and agrees with plan. Questions/Concerns addressed. Patient Goals for plan of care discussed in detail. Brandt Reyes PA-C [facility] [place] OT[facility]NGOLOGY [facility] [address] [facility] [place] [address] 03/25/23 10:17 AM The patient is being seen in follow up for the treatment of J38.00 Vocal cord paresis (primary encounter diagnosis) R13.12 Oropharyngeal dysphagia incident to the plan of care established by Dr. Tigre Samuels. Type of Supervision: Direct-Does not meet incident-to STAFF NOTE I performed a history and physical examination of the patient, including specifically on history, ROS, on physical exam, and my impression and plan are found below I have discussed the patient's management with Brandt Reyes PA-C. Please refer to the physician health care legal assistant's note for the documented findings and plan of care. HPI: 82-year-old female with a 2 to three-week history of acute onset dysphagia and change to voice. She was seen at the [facility] emergency department by the emergency department physician's who obtained a CT scan of the chest in the neck which were unremarkable. Also saw GI who has ordered a video swallow study to be done on Saturday. Patient has no history of prior neck surgery. No history of prolonged intubation. On exam PHYSICAL EXAM General: This is a healthy appearing female who appears her stated age. The patient is alert and appropriately verbally conversant without hoarseness. Face: The face was inspected and no cutaneous masses or lesions were visualized. There was no erythema or edema noted. Facial movement was symmetric without weakness. Eyes: Extra-ocular muscle function was intact. No nystagmus was observed. Pupils were equal. Cranial Nerves: Cranial nerves II, III, IV, and were noted to be intact via extra-ocular muscle movement testing. Cranial nerve VII noted to be intact and symmetric by facial movement. movement. Nose: Examination of the nose revealed no masses, polyps, mucopus, or other lesion. The nasal septum was non-obstructing. The turbinates were without abnormality. Oral Cavity: Examination of the oral cavity revealed no mass lesions nor infection. The palate was noted to be intact without evidence of clefting. The tongue exhibited normal mobility. Mucosa was moist without lesion. The lips were free of lesion. Gums were free of inflammation. Dentition: Unremarkable Oropharynx: The oral pharynx was free of mass lesion or mucosal abnormality. The palate was noted to be without lesion. The uvula was normal appearing. The tonsils were unremarkable. Neck: Visualization and palpation of the neck revealed no mass lesions, no thyromegaly or thyroid masses. No skin lesions or inflammatory processes were detected. The cervical musculature was normal to palpation. Lymphatics (cervical): There were no palpable lymph nodes in the posterior triangle, submandibular triangle, jugulodigastric region, or central neck. Lungs: Breathing quietly. No use of accessory muscles. Heart: Regular rate. No JVD. Procedure: Due to patient's inability to cooperate with mirror exam or concern for structures otherwise not evaluated, fiberoptic examination of the larynx was performed. The nose was first topically decongested with topical oxymetazoline 0.05% spray and topically anesthetized with topical Lidocaine 4% spray. Nasopharynx was visualized and was without masses or lesions. Fiberoptic examination revealed no mass lesions. The left vocal cord is paretic with minimal movement. There was no significant edema or erythema of the larynx. No vocal cord masses were visualized. Exam was negative for post cricoid or p yriform sinuses lesions. The patient tolerated the procedure well. Patient should refrain from eating or drinking for 30-45 minutes due to anesthesia of the pharynx and possible interference with swallowing. Assessment: 82-year-old female with acute onset left vocal cord paresis, dysphagia Plan: Agree with video swallow study. PCP could consider neurologic workup with MRI to rule out brainstem stroke Swallowing therapy with speech language pathology after video swallow study If no improvement could consider vocal cord injection for medialization. Would refer to [facility] as they are able to do this in the office, and patient is 82 years old with medical issues. Tigre Samuels DO, FACS [facility] Otolaryngology Head and Neck Surgery [place], [place] 03/25/2023 11:46 AM documented in this encounter Nursing Notes * Roland Bailey CMA - 03/25/2023 9:30 AM EST Chief Complaint Patient presents with NEW PATIENT Dysphagia and hoarseness Marie Nieves is a 82 year old female who presents today with difficulty swallowing food that began2 weeks ago along with hoarseness of her voice, a productive cough and mucus collection in her throat. She denies post nasal sinus drainage bust she dens that she has nasal discharge. She denies difficulty breathing. She does not use saline rinses or steroid nasal sprays. documented in this encounter Plan of Treatment Upcoming Encounters Date Type Department Care Team (Latest Contact Info) Description 03/26/2023 9:30 AM EST Nurse Only Ancillary Department, [address] [address] [place], Nurse [facility] [place] [address] 03/29/2023 10:00 AM EST [address], [address] [place] [phone] 04/05/2023 1:11 PM EST Hospital Encounter OR [facility], Operating Room, [facility] - 4th Floor [address] [place] [address] Manjit Webb MD [address] [place] [address] 04/05/2023 1:11 PM EST - 04/05/2023 1:51 PM EST Surgery OR [facility], Operating Room, [facility] - 4th Floor [address] [place] [address] Manjit Webb MD [address] [place] [address] ESOPHAGOGASTRODUODENOSCOPY (EGD), FLEXIBLE, TRANSORAL, DIAGNOSTIC 04/18/2023 11:00 AM EST Office Visit Orthopaedics [facility] [address] [place] [address] Chava Huff PA-C [address] [place] [address] 06/28/2023 8:00 AM EDT Office Visit Formerly [facility] [address] [place] [id number] Kalen Ribeiro MD [address] [place] [address] 09/02/2023 9:00 AM EDT Office Visit [facility] [place] [address] Halley Preston CRNP 132 [facility] [place] [phone] 02/10/2024 10:00 AM EST Cardiac Studies Cardiology, [facility] 132 [facility] [place] [address] [facility] 132 [facility] [place] [address] 02/13/2024 8:15 AM EST Cardiac Studies Cardiac Studies, [facility] [address] [facility] [place] [address] Scheduled Procedures Name Priority Associated Diagnoses Date/Ti ct ESOPHAGOGASTRODUODENOSCOPY ( EGD), FLEXIBLE, TRANSORAL, DIAGNOSTIC Dysphagia 04/05/2023 1:11 PM EST Scheduled Referrals Name Type Priority Associated Diagnoses Order Schedule OTOLARYNGOLOGY REFERRAL OP Referral Within 3 days (urgent) Oropharyngeal dysphagia Hoarseness of voice Ordered: 03/15/2023 Health Maintenance Due Date Last Done Comments Zoster Vaccines (2 of 3) 07/17/2007 05/22/2007 COVID-19 Vaccine ( season) 2022 12/26/2021, 02/14/2021, 06/09/2020, Additional history exists DXA Scan 02/14/2023 02/14/2021, 06/10, 07/21/2014, Additional history exists Albumin/Creatinine Ratio 06/09/2023 06/08/2022, 05/11 CKD PHOS USE SMARTSET 41546 06/09/202305/11, 12/16/2020, 09/26/2020, Additional history exists Depression Screening 06/13/2023 06/12/2022 GFR 09/16/2023 03/18/2023, 02/09, 11/20/2022, Additional history exists TSH 12/26/2023 12/25/2022, 05/11, 12/11/2021, Additional history exists CKD HGB USE SMARTSET 27894 03/18/202403/18, 03/18/2023, 11/20/2022, Additional history exists DTaP,Tdap,and Td Vaccines (2 - Td or Tdap) 08/14/2024 08/14/2014, 01/25/2000 Pneumococcal Vaccine: 65+ Years Completed 01/06/2015, 08/19/2007 VITAMIN D LEVEL ONCE IN A LIFETIME-USE SMARTSET# [id number] Completed 12/11/2018, 07/07/2018, 10/06/2010 Influenza Vaccine (FLU [...] this encounter Medical Devices Implanted Type Area Java Programmer Analyst Device Identifier Shelf Expiration Date Model / Serial / Lot Lead Tempo Temp Pacing - [id number] Implanted:Qty: 1 on 09/20/2020 by Dimitri Maya MD at [facility] [email or web address] [id number] 06/28/2021 [id number] / / [id number] documented as of this encounter Visit Diagnoses Diagnosis Vocal cord paresis- Primary Paralysis of vocal cords or larynx, unspecified Oropharyngeal dysphagia Dysphagia, oropharyngeal phase Hoarseness of voice [R49.0] Dysphonia Dysphagia Dysphagia, unspecified documented in this encounter [...] the patient have Health Care Power of Pharmaceutical Sales Representative? No Full Code 09/25/2020 6:44 PM 09/26/2020 [...] the patient have Health Care Power of Pharmaceutical Sales Representative? No Care Teams Grid Caster Relationship Specialty Start Date End Date Kalen Ribeiro MD [address] [place] [address] PCP - General 12/15/01 documented as of this encounter
--- OUTSIDE RECORDS SUMMARY | 2023-06-01 11:15 | External Medical Summary | Summary of Care ---
Author Name Unknown Organization [facility] Address [address] [place] [address] Phone [phone] Care Team Providers Care Starch Treating Assistant Name Role Phone Kalen Ribeiro MD Primary Care Provider [phone]- [phone] Reason for Visit * Reason Onset Date Comments Procedure 03/18/2023 Outpatient Testing 03/18/2023 Encounter Details Date Type Department Care Team ([facility] st Contact Info) Description 03/18/2023 Telephone [facility] Gastroenterology [address] [place] [address] Lisa Olsen PA-C [address] [facility] [place] [address] Procedure (/); Outpatient Testing Allergies Active Allergy Reactions Criticality Noted Date Comments Heparin 10/07/2020 Concern for HIT documented as of this encounter (statuses as of 03/20/2023) Medications Medication Sig Dispensed Refills Start Date [...] as of this encounter (statuses as of 03/20/2023) Active Problems Problem Noted Date Diagnosed Date [...] aorta 07/14/2021 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 Webb * Telephone Encounter - Orin Chong OSA - 03/18/2023 5:02 PM EST Esophogram 03/29/23 at 10:00 am at [facility] Will schedule EGD as soon as OR time available. LMM for pts daughter to call back. * Telephone Encounter - Lisa Olsen PA-C - 03/18/2023 4:21 PM EST D/W Dr. Squires - esophagram first, then EGD for completion of work up. Esophagram already ordered. EGD order placed just now. Please schedule. [place] [facility] [place]. Otherwise, she requests to come to [facility]. Does not wish to go to [facility] if possible. documented in this encounter Plan of Treatment Upcoming Encounters Date Type Department Care Team (Latest Contact Info) Description 03/25/2023 9:40 AM EST Office Visit Otolaryngology [facility] [address] [facility] [place] [address] Brandt Reyes PA-C [address] [place] [address] 03/26/2023 9:30 AM EST Nurse Only Ancillary [facility] [address] [place] [address] [facility] [address] 03/29/2023 10:00 AM EST Appointment Radiology, [facility] [address] [place] [address] 04/05/2023 1:11 PM EST Hospital Encounter OR GL, Operating Room, [facility] - 4th Floor [address] [place] [address] Manjit Webb MD [address] [place] [address] 04/05/2023 1:11 PM EST - 04/05/2023 1:51 PM EST Surgery OR [facility], Operating Room, [facility] - 4th Floor [address] [place] [address] Manjit Webb MD [address] [place] [address] ESOPHAGOGASTRODUODENOSCOPY (EGD), FLEXIBLE, TRANSORAL, DIAGNOSTIC 04/18/2023 11:00 AM EST Office Visit Orthopaedics [facility] [address] [place] [address] Chava Huff PA-C [address] [place] [address] 06/28/2023 8:00 AM EDT Office Visit [facility] [address] [facility] [place] [phone] Kalen Ribeiro MD [address] [facility] [place] [address] 09/02/2023 9:00 AM EDT Office Visit Cardiology, [facility] [address] [place] [address] Halley Preston CRNP [address] [place] [address] 02/10/2024 10:00 AM EST Cardiac Studies Cardiology, [facility] [address] [facility] [place] [address] [place], [facility] [place] [address] 02/13/2024 8:15 AM EST Cardiac Studies Cardiac Studies, [facility] [address] [facility] [place] [address] Scheduled Orders Name Type Priority Associated Diagnoses Orde r Schedule EGD, FLEXIBLE, DIAGNOSTIC Procedures Routine Oropharyngeal dysphagia Ordered: 03/18/2023 Scheduled Procedures Name Priority Associated Diagnoses Date/Ti mn ESOPHAGOGASTRODUODENOSCOPY ( EGD), FLEXIBLE, TRANSORAL, DIAGNOSTIC Dysphagia 04/05/2023 1:11 PM EST Health Maintenance Due Date Last Done Comments Zoster Vaccines (2 of 3) 07/17/2007 05/22/2007 COVID-19 Vaccine ( season) 2022 12/26/2021, 02/14/2021, 06/09/2020, Additional history exists DXA Scan 02/14/2023 02/14/2021, 06/10, 07/21/2014, Additional history exists Albumin/Creatinine Ratio 06/09/2023 06/08/2022, 05/11 CKD PHOS USE SMARTSET 17740 06/09/202305/11, 12/16/2020, 09/26/2020, Additional history exists Depression Screening 06/13/2023 06/12/2022 GFR 09/16/2023 03/18/2023, 02/09, 11/20/2022, Additional history exists TSH 12/26/2023 12/25/2022, 05/11, 12/11/2021, Additional history exists CKD HGB USE SMARTSET 44590 03/18/202403/18, 03/18/2023, 11/20/2022, Additional history exists DTaP,Tdap,and Td Vaccines (2 - Td or Tdap) 08/14/2024 08/14/2014, 01/25/2000 Pneumococcal Vaccine: 65+ Years Completed 01/06/2015, 08/19/2007 VITAMIN D LEVEL ONCE IN A LIFETIME-USE SMARTSET# [id number] Completed 12/11/2018, 07/07/2018, 10/06/2010 Influenza Vaccine (FLU [...] this encounter Medical Devices Implanted Type Area Research Clerk Device Identifier Shelf Expiration Date Model / Serial / Lot Lead Tempo Temp Pacing - [id number] Implanted:Qty: 1 on 09/20/2020 by Dimitri Maya MD at [facility] [place] [employer] Business Plan [id number] 06/28/2021 [id number] / / [id number] documented as of this encounter Visit Diagnoses Diagnosis Oropharyngeal dysphagia- Primary Dysphagia, oropharyngeal phase Dysphagia Dysphagia, unspecified documented in this encounter [...] the patient have Health Care Power of Public Health Professor? No Full Code 09/25/2020 6:44 PM 09/26/2020 [...] the patient have Health Care Power of Public Health Professor? No Care Teams Starch Treating Assistant Relationship Specialty Start Date End Date Kalen Ribeiro MD [address] [place] [address] PCP - General 12/15/01 documented as of this encounter
--- OUTSIDE RECORDS SUMMARY | 2023-06-01 11:15 | External Medical Summary | Summary of Care ---
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 Phone Kalen Ribeiro MD Primary Care Provider [phone]- [phone] Reason for Visit * Reason Comments Trouble Swallowing * Auth/Cert Specialty Diagnoses / Procedures Referred By Nithin t Referred To Contact Referral ID Status Reason Start Date Expiration Date Visits Re quested Visits Authorized [id number] Encounter Details Date Type Department Care Team ([facility] st Contact Info) Description 03/18/2023 10:00 AM EST - 03/18/2023 4:36 PM EST Emergency [facility] Emergency Department ([facility]) [address] [place] [address] Dian Ruiz, DO [address] [place] [address] Oropharyngeal dysphagia (Primary Dx) Discharge Disposition: Home - Self Care Allergies [...] aorta 07/14/2021 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 07/14/2021 Age-related osteoporosis wit hout current pathological fracture 07/14/2021 History of pulmonary embolism 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 1 [...] 30 Mcg, IM, 12 yrs and above (NetDragon) 12/26/2021 Pneumococcal Conjugate Vacc, 13 Valent (Prevnar) [...] Sign Reading Time Taken Comments Blood Pressure 143/79 03/18/2023 4:26 PM EST Pulse 87 03/18/2023 4:26 PM EST Temperature 36.2 C (97.2 F) 03/18/2023 9:48 AM ES T Respiratory Rate 18 03/18/2023 4:26 PM EST Oxygen Saturation 99% 03/18/2023 9:48 AM EST Inhaled Oxygen Concentration - - Weight 49.9 kg (110 lb) 03/18/2023 9:48 AM EST Height 144.8 cm (4' 9") 03/18/2023 9:48 AM EST Body Mass Index 23.8 03/18/2023 9:48 AM EST documented in this encounter Functional [...] No 10/10/2020 documented as of this encounter Consult Notes * Lisa Olsen PA-C - 03/18/2023 3:55 PM ESTAssociated Order(s): GASTROENTEROLOGY CONSULT IP CONSULT - Gastroenterology [facility] [address] Name: Marie Nieves Location: Date: 03/18/2023 Time: 3:55 PM REQUESTING SERVICE: ED physician REASON FOR CONSULT: dysphagia HPI: Marie Nieves is an 82 year old female with a hx of TAVR, s/p pacer placement, HTN, DLD, hypothyroidism, PE, HENRY, HIT, CKD and others, who presented to the ED with an approximate 5 day hx of dysphagia. Patient states she is able to tolerate liquids but she is unable to swallow solid foods. She statesthat the food gets to the back of the tongue and she is unable to initiate a swallow. She does finewith soup, applesauce and puddings. She additionally reports a lot of mucous in the back of her throat and some hoarseness since Saturday as well. Hx of GERD that is controlled with pantoprazole once daily. Denies NSAID use. Denies abdominal pain, n/v. CT scan of the neck and chest show some mild thickening of the soft palate and incidental air in the esophagus. Small hiatal hernia is noted as well. See below. Labs show a mild leukocytosis, but otherwise unremarkable. Last EGD was 07/08/[address] Hall at [facility] - gastritis, otherwise normal. HISTORY: Past Medical History: Past Medical History: Diagnosis [...] performed by Andrew Dudley MD at ENDOSCOPY [facility] COLONOSCOPY, DIAGNOSTIC (RECTUM) 06/20/2017 adenomatous polyp, diverticulosis/COLONOSCOPY FLEXIBLE PROXIMAL DIAGNOSTIC performed by Andrew Dudley MD at ENDOSCOPY [facility] DEXA SCAN/BONE MINERAL AXIAL 2006 osteoporosis, repeat 2 years DILATION AND CURETTAGE (D&C) unsure why ECHO (2-D COMPLETE) 10/12 Mild LVH, aortic scler - no stenosis FRACTURE NOS 10/12 L Tibial Plateau ORIF LIGATE/CUT OVIDUCT(S) LIGATION/BIOPSY OF TEMPORAL ARTERY Left 06/18/2016 06/18/2016 left temportal artery bx dx benign - [facility] Dr. Garcia LUMBAR / SACRAL EPIDURAL, SINGLE LEVEL 10/04/2015 INJECTION TRANSFORAMINAL EPIDURAL LUMBAR OR SACRAL performed by David Jeffrey Costello, DO at OR [facility] LUMBAR / SACRAL EPIDURAL, SINGLE LEVEL 10/25/2015 INJECTION TRANSFORAMINAL EPIDURAL LUMBAR OR SACRAL performed by [place] Jeffrey Costello, DO at OR [facility] MISCELLANEOUS ORDER ([facility] ONLY) 12/15 excision lipoma forehead REPLACE AORTIC VALVE, PERCUTANEOUS FEMORAL N/A 09/20/2020 REPLACE AORTIC VALVE, PERCUTANEOUS FEMORAL performed by Dimitri Maya MD at [facility] REPLACE AORTIC VALVE, PERCUTANEOUS FEMORAL N/A 09/20/2020 REPLACE AORTIC VALVE, PERCUTANEOUS FEMORAL performed by Alexys Almazan MD, PhD at [facility] TOTAL ABD HYSTERECTOMY W/WO REMOVAL OF TUBE(S) 2007 SHARIF w/ Bilateral Salpingo-Oophorectomy Social History: Social History Tobacco Use Smoking status: Never Passive exposure: Past Smokeless tobacco: Never Vaping Use Vaping Use: Never used Substance Use Topics Alcohol use: No Drug use: Never Family History: Family History Problem Relation Age of Onset Renal Hx Mother renal failure (? HTN). Dialysis Thyroid Disorder Mother Heart Disorder Father NM age 78 Heart Disorder Grandfather (Paternal) NM age 65 Heart Disorder Brother NM age 39 Cancer Aunt (Unspecified) colon Renal Hx Uncle (Unspecified) renal failure (?htn) - s/p transplant No Past Hx None no gyne cancers, no breast ca Allergies: Heparin ROS: Constitutional: (-) fever, chills, sweats Eyes: (-) negative, no scleral icterus, pain, blurred vision, or redness ENT: (-) negative: no acute hearing loss, sinus, ear or throat problems Cardiovascular: (-) negative: no chest pain, dyspnea, palpitations, or syncope Pulmonary: (-) negative: no cough, wheezing, or shortness of breath Abdominal/GI: as per HPI, otherwise negative Musculoskeletal: (-) negative: no joint swelling or tenderness Endocrine: (-) heat intolerance and (-) cold intolerance Hematology/oncology: (-) negative: no night sweats, masses, or swollen nodes Skin: (-) negative: no rash or jaundice Neurology: (-) negative: no focal neurologic defect or confusion Female : (-) dysuria, (-) hematuria PHYSICAL EXAMINATION: Most Recent Vital Signs: BP: 140 mmHg/75 mmHg (03/18/231499) Pulse: 69 (03/18/231499) Temp: 36.22 C (03/18/23947) Resp: 18 (03/18/231499) SpO2: 99 % (03/18/23947) Vital Signs Last 24 Hours: Systolic BP: Most Recent Systolic BP Av.5 mmHg Min: 130 mmHg Max: 170 mmHg Temperature: Most Recent Temperature Av.22 C Min: 36.22 C Max: 36.22 C Pulse: Pulse Av.3 Min: 60 Max: 74 Respirations: Resp Av Min: 18 Max: 20 SpO2: SpO2 Av % Min: 99 % Max: 99 % Constitutional: no acute distress HEENT: normal: normocephalic, atraumatic; no masses, tenderness, or adenopathy Eyes: no scleral icterus, redness, or injection Neck: supple, normal range of motion CV: normal rate, normal rhythm Chest: normal respiratory effort, lungs clear to auscultation with equal chest exertion Abdomen: normal: soft, bowel sounds normal, no masses, tenderness or appreciable ascites Musculoskeletal: (-) no joint effusions or tenderness Extremities: no edema Skin: warm and dry, no rashes Neuro: alert Psych: normal mood and affect, nonsuicidal LABS: Labs reviewed. Recent Results (from the past 24 hour(s)) BASIC METABOLIC PANEL Collection Time: 03/18/23 11:01 AM Result Value Ref Range BUN 14 6 - 20 mg/dL Creatinine 0.8 0.5 - 1.0 mg/dL Estimated Glomerular Filtration Rate 71 >=60 mL/min Sodium 140 135 - 146 mmol/L Potassium 4.2 3.5 - 5.1 mmol/L Chloride 102 98 - 107 mmol/L CO2 24 22 - 32 mmol/L Anion Gap 14 7 - 15 mmol/L Glucose 112 70 - 120 mg/dL Calcium 9.7 8.4 - 10.2 mg/dL CBC Collection Time: 03/18/23 11:01 AM Result Value Ref Range WBC 11.99 (H) 4.00 - 10.80 K/uL RBC 4.56 3.85 - 5.15 M/uL HGB 14.6 12.0 - 15.3 g/dL HCT 44.0 36.0 - 45.2 % MCV 96.5 81.5 - 97.5 fL MCH 32.0 27.0 - 34.0 pg MCHC 33.2 32.0 - 36.0 g/dL RDW 12.5 11.5 - 15.5 % PLT 217 140 - 400 K/uL MPV 9.2 6.6 - 11.1 fL nRBCs 0 <=0 /100 WBCs DIFFERENTIAL, AUTOMATED Collection Time: 03/18/23 11:01 AM Result Value Ref Range WBC 11.99 (H) 4.00 - 10.80 K/uL Neutrophils % 84.5 (H) 40.0 - 75.0 % Lymphocytes % 7.1 (L) 18.0 - 42.0 % Monocytes % 6.1 1.0 - 11.0 % Eosinophils % 1.4 0.0 - 6.0 % Basophils % 0.5 0.0 - 2.0 % Immature Granulocytes % 0.4 0.0 - 2.0 % Absolute Neutrophils 10.13 (H) 1.80 - 7.70 K/uL Absolute Lymphocytes 0.85 (L) 1.00 - 4.80 K/ul Absolute Monocytes 0.73 0.00 - 1.10 K/uL Absolute Eosinophils 0.17 0.00 - 0.70 K/uL Absolute Basophils 0.06 0.00 - 0.20 K/uL Absolute Immature Granulocytes 0.05 0.00 - 0.20 K/uL IMAGING: CT Maxillofacial/Neck/Chest - IMPRESSION: 1. Thickening of the soft palate more so on the right. No defined rim enhancing fluid collection identified. 2. Minimal mucosal sinus disease. IMPRESSION: 1. Thickening of the soft palate more so on the right. 2. No evidence of epiglottitis. 3. No rim enhancing fluid collection identified. IMPRESSION: 1. Small hiatal hernia. 2. No obvious esophageal distention. 3. Interval resolution of pericardial and pleural effusions with pulmonary reexpansion. 13. Predominantly peripheral subpleural parenchymal densities, nonspecific but favored to represent atelectasis and/or scarring. IMPRESSION: Marie Nieves is a(n) 82 year old female who presents with a 5 day hx of oropharyngeal dysphagia. RECOMMENDATIONS/PLAN: Patient is managing her secretions without issue and also tolerating full liquids. OK for d/c from our perspective. Would continue PPI as current. Will arrange an OP esophagram - patient would prefer [facility] location if possible. Subsequent EGD will be pursued as well forcompletion. I have discussed the case with my attending, Dr Squires. documented in this encounter ED Notes * Dian Ruiz DO - 03/18/2023 10:46 AM EST HISTORY OF PRESENT ILLNESS Marie Nieves is a 82 year old female who presents to the ED for evaluation of Trouble Swallowing. The patient was seen at 03/18/23 1039. Patient is an 82-year-old female who presents with a chief complaint of dysphagia. The patient has past medical history of hypertension, hyperlipidemia, GERD, iron-deficiency anemia, paroxysmal atrial fibrillation, PE, CKD. The patient states that 4 days ago she started noticing progressive difficulty swallowing. She is able to swallow liquids in her own saliva however she has not able to swallow anything solid even after chewing it thoroughly. She can havesome thickened liquids like applesauce and pudding but still is somewhat difficult to get down. Shehas never had this before no recent EGD. She does admit to some weight loss since last week due to not eating as much. Denies any night sweats, chest pain, shortness of breath, vomiting. 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 Negative for chills, fatigue and fever. HENT: Positive for trouble swallowing. Negative for congestion, rhinorrhea, sinus pressure, sinus pain, sneezing and sore throat. Eyes: Negative for photophobia and visual disturbance. Respiratory: Negative for cough, shortness of breath and wheezing. Cardiovascular: Negative for chest pain and palpitations. Gastrointestinal: Negative for abdominal pain, constipation, diarrhea, nausea and vomiting. Genitourinary: Negative for dysuria, frequency and hematuria. Musculoskeletal: Negative for back pain, neck pain and neck stiffness. Skin: Negative for rash and wound. Neurological: Negative for dizziness, light-headedness and headaches. The patient's allergies, past history, and medications were reviewed. PHYSICAL EXAM Initial Vitals (see all): BP 170/86 | Pulse 74 | Resp 20 | Temp 97.2 | O2 99 %, Room Air, None | Weight 49.9 kg | Height 144.8 cm | BMI 23.8 kg/m2 Initial Pain Assessment (see all): 0 (no pain)/10 ([facility] Adult Scale 0-10) Physical Exam Constitutional: General: She is not in acute distress. Appearance: She is not toxic-appearing. HENT: Head: Normocephalic. Nose: Nose normal. Mouth/Throat: Mouth: Mucous membranes are dry. Comments: Dry oral mucosa present. Eyes: General: No scleral icterus. Pupils: Pupils are equal, round, and reactive to light. Neck: Comments: No neck tenderness palpation, normal range of motion. Cardiovascular: Rate and Rhythm: Normal rate. Heart sounds: No murmur heard. No gallop. Pulmonary: Effort: No respiratory distress. Breath sounds: Normal breath sounds. No wheezing. Comments: Clear breath sounds in all lung redding. No acute respiratory distress, pulse ox 99% on room air. Abdominal: General: There is no distension. Palpations: Abdomen is soft. Tenderness: There is no abdominal tenderness. Comments: No abdominal tenderness palpation. Abdomen is soft and nondistended. No guarding rigidity. Musculoskeletal: General: No swelling or deformity. Normal range of motion. Cervical back: No rigidity. Lymphadenopathy: Cervical: No cervical adenopathy. Skin: General: Skin is warm. Capillary Refill: Capillary refill takes less than 2 seconds. Coloration: Skin is not jaundiced. Findings: No bruising. Neurological: Mental Status: She is alert and oriented to person, place, and time. Cranial Nerves: No cranial nerve deficit. Motor: No weakness. PROCEDURES AND TREATMENTS ED Orders | ED Results MEDICAL DECISION MAKING Nursing notes and vital signs were reviewed. ED consults were placed. ED Course as of 03/18/23 1608 Mon Mar 18, 2023 1454 I did tiger text GI [MS] 1514 GI did get back with me and they are recommending a consult to see a how soon they can get herin for evaluation. [MS] 1528 GI is at bedside talking with the patient. [MS] 1550 GI will schedule her for a swallow study, but she can be discharged in the meantime. [MS] ED Course User Index [MS] Dian Ruiz DO Patient is an 82-year-old female who presents with a chief complaint of difficulty swallowing. Beengoing on since last week. She has not able to swallow any solids this time and is only able to swallow thickened liquids. The patient has not had any weight loss or sweats. CT scan was not showing any evidence of a mass. I did consult GI they saw her at bedside and do recommend a swallow study which they will arrange for her. The patient was given coding tech for oral secretions but then will be discharged home. She understands that she will hear from GI about an appointment. No further questions. Vital stable. She will continue with liquid diet. Amount and/or Complexity of Data Reviewed Labs: ordered. Radiology: ordered. Risk Prescription drug management. Clinical Impressions Oropharyngeal dysphagia Disposition Discharged. The patient's condition at disposition was: stable. Dian Missy Joseph * Namita Lowery RN - 03/18/2023 9:50 AM EST Pt comes in stating she is having difficulty swallowing that started Saturday night after eating dinner. Is able to swallow fluids. Not able to swallow any food. Is hoarse. Denies any difficulty breathing or shortness of breath. documented in this encounter Miscellaneous Notes * ED English Teacher Note - Hafsa Colbert RN - 03/18/2023 4:35 PM EST Pt discharge instructions and follow up reviewed with pt and her daughter and both verbalized understanding. Pt iv d/ashley and pt discharged to home. * Pt Handout (on AVS) - Dian Ruiz DO - 03/18/2023 3:51 PM EST Images from the original note were not included. [id number] Understanding Dysphagia If you have a problem swallowing foods or liquids, you may have dysphagia. This health problem has a number of causes. Your healthcare provider can find out what is causing your problem. Treatment can help ease your symptoms. When you swallow Your tongue pushes foods or liquids from your mouth to your throat as you eat or drink and swallow.They then pass down the esophagus (a muscular tube) into the stomach. The esophagus muscles tightenand relax in wavelike motions. This keeps foods or liquids moving. Causes of dysphagia With dysphagia, foods or liquids don't easily pass down the esophagus. Dysphagia may happen if the esophagus rome thicken. This can cause a narrowing (stricture) of the tube. Dysphagia can also be caused by: Other problems in the esophagus. This may be an ulcer, irritation, infection, inflammation, or cancer. A problem with the muscles in your mouth, throat, or esophagus. They don?t work as they should. A problem with nerves or the brain. This could result from a stroke, cerebral palsy, multiple sclerosis, or Parkinson disease. These can leave your mouth, tongue, or throat muscles weak. Or they may change how your muscles work. Common symptoms If you have dysphagia, you may: Feel chest pressure or pain when you swallow Need extra effort or time needed to chew or swallow Choke or cough when you swallow Have food get stuck in your mouth when trying to swallow Vomit after you eat or drink Bring up food or liquid swallowed (regurgitate) out your nose Breathe food or liquids into the lungs (aspirate) when you swallow Have a hard time breathing after meals Have fatigue and weight loss Last Reviewed Date: 12/09/202019995723-6249 [employer]. All rights reserved. This information is not intended as a substitute for professional medical care. Always follow your healthcare professional's instructions. documented in this encounter Plan of Treatment Upcoming Encounters Date Type Department Care Team (Late st Contact Info) Description 03/25/2023 9:40 AM EST Office Visit Otolaryngology [facility] [address] [facility] [place] [address] Brandt Reyes PA-C [address] [place] [address] 03/26/2023 9:30 AM EST Nurse Only Ancillary Department, [place] [address] [facility] [address] [facility] [address] [facility] [address] 03/29/2023 10:00 AM EST Appointment Radiology, [address] [place] [phone] 04/18/2023 11:00 AM EST Office Visit Orthopaedics [facility] [address] [facility] [place] [address] Chava Huff PA-C [address] [facility] [place] [address] 06/28/2023 8:00 AM EDT Office Visit Family Practice, [place] [address] [address] [id number] Kalen Ribeiro MD [address] [facility] [place] [address] 09/02/2023 9:00 AM EDT Office Visit Cardiology, [facility] [address] [facility] [place] [address] Halley Preston CRNP [address] [facility] [place] [address] 02/10/2024 10:00 AM EST Cardiac Studies Cardiology, [facility] [address] [facility] [place] [address] [facility] [address] [facility] [place] [address] 02/13/2024 8:15 AM EST Cardiac Studies Cardiac Studies, [facility] [address] [facility] [place] [address] Scheduled Orders Name Type Priority Associated Diagnoses Orde r Schedule FLUORO ESOPHAGRAM ENTIRE Medical Imaging Routine One Time for 1 Occurrences starting 03/18/2023 until 03/18/2023 Scheduled Procedures Name Priority Associated Diagnoses Date/Ti me ESOPHAGOGASTRODUODENOSCOPY ( EGD), FLEXIBLE, TRANSORAL, DIAGNOSTIC Dysphagia Health Maintenance Due Date Last Done Comments Zoster Vaccines (2 of 3) 07/17/2007 05/22/2007 COVID-19 Vaccine ( season) 2022 12/26/2021, 02/14/2021, 06/09/2020, Additional history exists DXA Scan 02/14/2023 02/14/2021, 06/10, 07/21/2014, Additional history exists Albumin/Creatinine Ratio 06/09/2023 06/08/2022, 05/11 CKD PHOS USE SMARTSET 86863 06/09/202305/11, 12/16/2020, 09/26/2020, Additional history exists Depression Screening 06/13/2023 06/12/2022 GFR 09/16/2023 03/18/2023, 02/09, 11/20/2022, Additional history exists TSH 12/26/2023 12/25/2022, 05/11, 12/11/2021, Additional history exists CKD HGB USE SMARTSET 76625 03/18/202403/18, 03/18/2023, 11/20/2022, Additional history exists DTaP,Tdap,and Td Vaccines (2 - Td or Tdap) 08/14/2024 08/14/2014, 01/25/2000 Pneumococcal Vaccine: 65+ Years Completed 01/06/2015, 08/19/2007 VITAMIN D LEVEL ONCE IN A LIFETIME-USE SMARTSET# [id number] Completed 12/11/2018, 07/07/2018, 10/06/2010 Influenza Vaccine (FLU [...] this encounter Medical Devices Implanted Type Area Financial Report Service Sales Agent Device Identifier Shelf Expiration Date Model / Serial / Lot Lead Tempo Temp Pacing - [id number] Implanted:Qty: 1 on 09/20/2020 by Dimitri Maya MD at [facility] [employer] [id number] 06/28/2021 [id number] / / [id number] documented as of this encounter Procedures Procedure Name Priority Date/Time Associated Diagnosis Comments CT CHEST W CONTRAST STAT 03/18/2023 1 :[address] NECK W CONTRAST STAT 03/18/2023 1: 27 PM EST EXTRA GREEN TOP WITH GEL Routine 03/18/2023 11:01 AM EST EXTRA LIGHT BLUE TOP Routine 03/18/2023 11:01 AM EST EXTRA TUBES Routine 03/18/2023 11:01 AM EST DIFFERENTIAL, AUTOMATED STAT 03/18/2023 11:01 AM EST BASIC METABOLIC PANEL STAT 03/18/2023 11:01 AM EST CBC STAT 03/18/2023 11:01 AM EST CBC STAT 03/18/2023 11:01 AM EST documented in this encounter Results * CT CHEST W CONTRAST (03/18/2023 1:27 PM EST) Anatomical Region Laterality Modality Chest, Body, Cardio Computed Сергей ography 03/18/2023 1:17 PM EST Impressions 03/18/2023 2:34 PM EST IMPRESSION: 1. Thickening of the soft palate more so on the right. No defined rim enhancing fluid collection identified. 2. Minimal mucosal sinus disease. PROCEDURE INFORMATION: Exam: CT Neck With Contrast Exam date and time: 03/18/2023 1:17 PM Age: 82 years old Clinical indication: Chest pressure; Neck pain; Additional info: Dysphagia TECHNIQUE: Imaging protocol: Computed tomography of the neck with contrast. 3D rendering (Not supervised by radiologist): MIP and/or 3D reconstructed images were created by the technologist. Radiation optimization: All CT scans at this facility use at least one of these dose optimization techniques: automated exposure control; mA and/or kV adjustment per patient size (includes targeted exams where dose is matched to clinical indication); or iterative reconstruction. Contrast material: OPTIRAY; Contrast volume: 320 ml; Contrast route: INTRAVENOUS (IV); COMPARISON: MRI ORBIT/FACE/NECK 08/02/2016 3:12 PM FINDINGS: Dental: Assessment of the oral cavity is limited by streak artifact arising from dental hardware. Pharynx: There is thickening of the soft palate more so on the right. No defined fluid collection is evident. The valleculae are not effaced. There is underdistention of the piriform sinuses. Larynx: The epiglottis is not enlarged. Prevertebral and retropharyngeal spaces: Unremarkable. Salivary glands: Parotid glande appear unremarkable. Submandibular glands apper unremarkable. Thyroid: The thyroid is diminutive and may have been surgically removed. Lymph nodes: No lymphadenopathy. Trachea: The airway is patent. Lungs: Unremarkable as visualized. Bones/joints: There is slight anterolisthesis of C3 on C4. Slight anterolisthesis of C7 on T1. Age consistent multilevel degenerative changes. Vasculature: Atherosclerotic calcification demonstrated within the left carotid bifurcation. The internal jugular veins are flow patent bilaterally. Soft tissues: No rim enhancing fluid collection evident. There is no thickening of the platysma. IMPRESSION: 1. Thickening of the soft palate more so on the right. 2. No evidence of epiglottitis. 3. No rim enhancing fluid collection identified. PROCEDURE INFORMATION: Exam: CT Chest With Contrast; Diagnostic Exam date and time: 03/18/2023 1:17 PM Age: 82 years old Clinical indication: Chest pressure; Neck pain; Additional info: Dysphagia TECHNIQUE: Imaging protocol: Diagnostic computed tomography of the chest with contrast. 3D rendering (Not supervised by radiologist): MIP and/or 3D reconstructed images were created by the technologist. Radiation optimization: All CT scans at this facility use at least one of these dose optimization techniques: automated exposure control; mA and/or kV adjustment per patient size (includes targeted exams where dose is matched to clinical indication); or iterative reconstruction. Contrast material: OPTIRAY; Contrast volume: 320 ml; Contrast route: INTRAVENOUS (IV); COMPARISON: CT Thorax^PE (Adult) 10/09/2020 12:30 AM FINDINGS: Tubes, catheters and devices: A transcatheter aortic valve prosthesis is noted. A cardiac pacemaker is present with leads extending into the RA and RV. Lungs: Imaged portions of the distal trachea as well as right and left mainstem bronchi are patent. There are multiple areas of predominantly peripheral pulmonary parenchymal densities suggesting areas of scarring and/or atelectasis but nonspecific. Scattered reticular densities are also present. No large area of consolidation noted. Lung aeration is overall improved from previous due to re-expansion following resolution of the pleural effusions. Pleural spaces: No residual pleural effusion noted. It is noted that a tiny portion of the costophrenic angles is excluded from the imaging field bilaterally. Heart: The heart is not enlarged. There is no pericardial effusion. Coronary arteries: Coronary artery atherosclerotic calcification is present. Mediastinal space: No significant distention of the thoracic esophagus is identified. Small amount of gas is noted within the esophagus incidentally. Small hiatal hernia. Lymph nodes: No mediastinal or hilar adenopathy identified. Vasculature: The thoracic aorta is not dilated but does demonstrate atherosclerotic calcification. This examination not optimized for pulmonary artery evaluation, but there is no obvious pulmonary artery embolus identified. Diaphragm: Small hiatal hernia. Intraperitoneal space: Imaged upper abdomen demonstrates no acute appearing abnormality. Bones/joints: Skeletal windows demonstrates scattered degenerative changes. Soft tissues: Unremarkable. IMPRESSION: 1. Small hiatal hernia. 2. No obvious esophageal distention. 3. Interval resolution of pericardial and pleural effusions with pulmonary reexpansion. 13. Predominantly peripheral subpleural parenchymal densities, nonspecific but favored to represent atelectasis and/or scarring. THIS DOCUMENT HAS BEEN ELECTRONICALLY SIGNED BY DORI HOGAN MD Narrative 03/18/2023 2:34 PM EST PROCEDURE INFORMATION: Exam: CT Maxillofacial With Contrast Exam date and time: 03/18/2023 1:17 PM Age: 82 years old Clinical indication: Chest pressure; Neck pain; Additional info: Dysphagia TECHNIQUE: Imaging protocol: Computed tomography of the face with contrast. Imaging from above the superior aspect of the frontal sinuses through the face and neck. COMPARISON: No relevant prior studies available. FINDINGS: Orbital cavities: The orbits appear unremarkable. Bones/joints: There is no rim enhancing fluid collection identified. Evaluation of the oral cavity in particular is limited by streak artifact arising from dental hardware. There is slight anterolisthesis of C3 on C4. Paranasal sinuses: The paranasal sinuses are clear except for very minimal mucosal thickening inferiorly in the left maxillary sinus, and focal mucosal thickening in the posterior right ethmoid. Mastoid air cells: Mastoid air cells are clear. Soft tissues: No rim enhancing fluid collection identified. Brain: the imaged intracranial structures demonstrate no mass effect or hydrocephalus. Nasal cavity: The nasal airway is patent. The nasal septum is midline. Pharynx: There is thickening of the soft palate more so on the right. Procedure Note Bone III, Dori Desai MD - 03/18/2023 PROCEDURE INFORMATION: Exam: CT Maxillofacial With Contrast Exam date and time: 03/18/2023 1:17 PM Age: 82 years old Clinical indication: Chest pressure; Neck pain; Additional info: Dysphagia TECHNIQUE: Imaging protocol: Computed tomography of the face with contrast. Imagingfrom above the superior aspect of the frontal sinuses through the face andneck. COMPARISON: No relevant prior studies available. FINDINGS: Orbital cavities: The orbits appear unremarkable. Bones/joints: There is no rim enhancing fluid collection identified.Evaluation of the oral cavity in particular is limited by streak artifact arisingfrom dental hardware. There is slight anterolisthesis of C3 on C4. Paranasal sinuses: The paranasal sinuses are clear except for very minimal mucosal thickening inferiorly in the left maxillary sinus, and focalmucosal thickening in the posterior right ethmoid. Mastoid air cells: Mastoid air cells are clear. Soft tissues: No rim enhancing fluid collection identified. Brain: the imaged intracranial structures demonstrate no mass effect or hydrocephalus. Nasal cavity: The nasal airway is patent. The nasal septum is midline. Pharynx: There is thickening of the soft palate more so on the right. IMPRESSION IMPRESSION: 1. Thickening of the soft palate more so on the right. No defined rim enhancing fluid collection identified. 2. Minimal mucosal sinus disease. PROCEDURE INFORMATION: Exam: CT Neck With Contrast Exam date and time: 03/18/2023 1:17 PM Age: 82 years old Clinical indication: Chest pressure; Neck pain; Additional info: Dysphagia TECHNIQUE: Imaging protocol: Computed tomography of the neck with contrast. 3D rendering (Not supervised by radiologist): MIP and/or 3D reconstructed images were created by the technologist. Radiation optimization: All CT scans at this facility use at least one ofthese dose optimization techniques: automated exposure control; mA and/or kV adjustment per patient size (includes targeted exams where dose is matchedto clinical indication); or iterative reconstruction. Contrast material: OPTIRAY; Contrast volume: 320 ml; Contrast route: INTRAVENOUS (IV); COMPARISON: MRI ORBIT/FACE/NECK 08/02/2016 3:12 PM FINDINGS: Dental: Assessment of the oral cavity is limited by streak artifactarising from dental hardware. Pharynx: There is thickening of the soft palate more so on the right. No defined fluid collection is evident. The valleculae are not effaced. Thereis underdistention of the piriform sinuses. Larynx: The epiglottis is not enlarged. Prevertebral and retropharyngeal spaces: Unremarkable. Salivary glands: Parotid glande appear unremarkable. Submandibular glandsapper unremarkable. Thyroid: The thyroid is diminutive and may have been surgically removed. Lymph nodes: No lymphadenopathy. Trachea: The airway is patent. Lungs: Unremarkable as visualized. Bones/joints: There is slight anterolisthesis of C3 on C4. Slight anterolisthesis of C7 on T1. Age consistent multilevel degenerativechanges. Vasculature: Atherosclerotic calcification demonstrated within the leftcarotid bifurcation. The internal jugular veins are flow patent bilaterally. Soft tissues: No rim enhancing fluid collection evident. There is nothickening of the platysma. IMPRESSION: 1. Thickening of the soft palate more so on the right. 2. No evidence of epiglottitis. 3. No rim enhancing fluid collection identified. PROCEDURE INFORMATION: Exam: CT Chest With Contrast; Diagnostic Exam date and time: 03/18/2023 1:17 PM Age: 82 years old Clinical indication: Chest pressure; Neck pain; Additional info: Dysphagia TECHNIQUE: Imaging protocol: Diagnostic computed tomography of the chest withcontrast. 3D rendering (Not supervised by radiologist): MIP and/or 3D reconstructed images were created by the technologist. Radiation optimization: All CT scans at this facility use at least one ofthese dose optimization techniques: automated exposure control; mA and/or kV adjustment per patient size (includes targeted exams where dose is matchedto clinical indication); or iterative reconstruction. Contrast material: OPTIRAY; Contrast volume: 320 ml; Contrast route: INTRAVENOUS (IV); COMPARISON: CT Thorax^PE (Adult) 10/09/2020 12:30 AM FINDINGS: Tubes, catheters and devices: A transcatheter aortic valve prosthesis isnoted. A cardiac pacemaker is present with leads extending into the RA and RV. Lungs: Imaged portions of the distal trachea as well as right and leftmainstem bronchi are patent. There are multiple areas of predominantly peripheral pulmonary parenchymal densities suggesting areas of scarring and/oratelectasis but nonspecific. Scattered reticular densities are also present. No largearea of consolidation noted. Lung aeration is overall improved from previousdue to re-expansion following resolution of the pleural effusions. Pleural spaces: No residual pleural effusion noted. It is noted that atiny portion of the costophrenic angles is excluded from the imaging field bilaterally. Heart: The heart is not enlarged. There is no pericardial effusion. Coronary arteries: Coronary artery atherosclerotic calcification ispresent. Mediastinal space: No significant distention of the thoracic esophagus is identified. Small amount of gas is noted within the esophagusincidentally. Small hiatal hernia. Lymph nodes: No mediastinal or hilar adenopathy identified. Vasculature: The thoracic aorta is not dilated but does demonstrate atherosclerotic calcification. This examination not optimized forpulmonary artery evaluation, but there is no obvious pulmonary artery embolusidentified. Diaphragm: Small hiatal hernia. Intraperitoneal space: Imaged upper abdomen demonstrates no acuteappearing abnormality. Bones/joints: Skeletal windows demonstrates scattered degenerativechanges. Soft tissues: Unremarkable. IMPRESSION: 1. Small hiatal hernia. 2. No obvious esophageal distention. 3. Interval resolution of pericardial and pleural effusions with pulmonary reexpansion. 13. Predominantly peripheral subpleural parenchymal densities,nonspecific but favored to represent atelectasis and/or scarring. THIS DOCUMENT HAS BEEN ELECTRONICALLY SIGNED BY DORI HOGAN MD Dian Missy Joseph DO RAD CT * CT NECK W CONTRAST (03/18/2023 1:27 PM EST) Anatomical Region Laterality Modality Neck, Head, Sinus Computed Tomog vee 03/18/2023 1:17 PM EST Impressions 03/18/2023 2:34 PM EST IMPRESSION: 1. Thickening of the soft palate more so on the right. No defined rim enhancing fluid collection identified. 2. Minimal mucosal sinus disease. PROCEDURE INFORMATION: Exam: CT Neck With Contrast Exam date and time: 03/18/2023 1:17 PM Age: 82 years old Clinical indication: Chest pressure; Neck pain; Additional info: Dysphagia TECHNIQUE: Imaging protocol: Computed tomography of the neck with contrast. 3D rendering (Not supervised by radiologist): MIP and/or 3D reconstructed images were created by the technologist. Radiation optimization: All CT scans at this facility use at least one of these dose optimization techniques: automated exposure control; mA and/or kV adjustment per patient size (includes targeted exams where dose is matched to clinical indication); or iterative reconstruction. Contrast material: OPTIRAY; Contrast volume: 320 ml; Contrast route: INTRAVENOUS (IV); COMPARISON: MRI ORBIT/FACE/NECK 08/02/2016 3:12 PM FINDINGS: Dental: Assessment of the oral cavity is limited by streak artifact arising from dental hardware. Pharynx: There is thickening of the soft palate more so on the right. No defined fluid collection is evident. The valleculae are not effaced. There is underdistention of the piriform sinuses. Larynx: The epiglottis is not enlarged. Prevertebral and retropharyngeal spaces: Unremarkable. Salivary glands: Parotid glande appear unremarkable. Submandibular glands apper unremarkable. Thyroid: The thyroid is diminutive and may have been surgically removed. Lymph nodes: No lymphadenopathy. Trachea: The airway is patent. Lungs: Unremarkable as visualized. Bones/joints: There is slight anterolisthesis of C3 on C4. Slight anterolisthesis of C7 on T1. Age consistent multilevel degenerative changes. Vasculature: Atherosclerotic calcification demonstrated within the left carotid bifurcation. The internal jugular veins are flow patent bilaterally. Soft tissues: No rim enhancing fluid collection evident. There is no thickening of the platysma. IMPRESSION: 1. Thickening of the soft palate more so on the right. 2. No evidence of epiglottitis. 3. No rim enhancing fluid collection identified. PROCEDURE INFORMATION: Exam: CT Chest With Contrast; Diagnostic Exam date and time: 03/18/2023 1:17 PM Age: 82 years old Clinical indication: Chest pressure; Neck pain; Additional info: Dysphagia TECHNIQUE: Imaging protocol: Diagnostic computed tomography of the chest with contrast. 3D rendering (Not supervised by radiologist): MIP and/or 3D reconstructed images were created by the technologist. Radiation optimization: All CT scans at this facility use at least one of these dose optimization techniques: automated exposure control; mA and/or kV adjustment per patient size (includes targeted exams where dose is matched to clinical indication); or iterative reconstruction. Contrast material: OPTIRAY; Contrast volume: 320 ml; Contrast route: INTRAVENOUS (IV); COMPARISON: CT Thorax^PE (Adult) 10/09/2020 12:30 AM FINDINGS: Tubes, catheters and devices: A transcatheter aortic valve prosthesis is noted. A cardiac pacemaker is present with leads extending into the RA and RV. Lungs: Imaged portions of the distal trachea as well as right and left mainstem bronchi are patent. There are multiple areas of predominantly peripheral pulmonary parenchymal densities suggesting areas of scarring and/or atelectasis but nonspecific. Scattered reticular densities are also present. No large area of consolidation noted. Lung aeration is overall improved from previous due to re-expansion following resolution of the pleural effusions. Pleural spaces: No residual pleural effusion noted. It is noted that a tiny portion of the costophrenic angles is excluded from the imaging field bilaterally. Heart: The heart is not enlarged. There is no pericardial effusion. Coronary arteries: Coronary artery atherosclerotic calcification is present. Mediastinal space: No significant distention of the thoracic esophagus is identified. Small amount of gas is noted within the esophagus incidentally. Small hiatal hernia. Lymph nodes: No mediastinal or hilar adenopathy identified. Vasculature: The thoracic aorta is not dilated but does demonstrate atherosclerotic calcification. This examination not optimized for pulmonary artery evaluation, but there is no obvious pulmonary artery embolus identified. Diaphragm: Small hiatal hernia. Intraperitoneal space: Imaged upper abdomen demonstrates no acute appearing abnormality. Bones/joints: Skeletal windows demonstrates scattered degenerative changes. Soft tissues: Unremarkable. IMPRESSION: 1. Small hiatal hernia. 2. No obvious esophageal distention. 3. Interval resolution of pericardial and pleural effusions with pulmonary reexpansion. 13. Predominantly peripheral subpleural parenchymal densities, nonspecific but favored to represent atelectasis and/or scarring. THIS DOCUMENT HAS BEEN ELECTRONICALLY SIGNED BY DORI HOGAN MD Narrative 03/18/2023 2:34 PM EST PROCEDURE INFORMATION: Exam: CT Maxillofacial With Contrast Exam date and time: 03/18/2023 1:17 PM Age: 82 years old Clinical indication: Chest pressure; Neck pain; Additional info: Dysphagia TECHNIQUE: Imaging protocol: Computed tomography of the face with contrast. Imaging from above the superior aspect of the frontal sinuses through the face and neck. COMPARISON: No relevant prior studies available. FINDINGS: Orbital cavities: The orbits appear unremarkable. Bones/joints: There is no rim enhancing fluid collection identified. Evaluation of the oral cavity in particular is limited by streak artifact arising from dental hardware. There is slight anterolisthesis of C3 on C4. Paranasal sinuses: The paranasal sinuses are clear except for very minimal mucosal thickening inferiorly in the left maxillary sinus, and focal mucosal thickening in the posterior right ethmoid. Mastoid air cells: Mastoid air cells are clear. Soft tissues: No rim enhancing fluid collection identified. Brain: the imaged intracranial structures demonstrate no mass effect or hydrocephalus. Nasal cavity: The nasal airway is patent. The nasal septum is midline. Pharynx: There is thickening of the soft palate more so on the right. Procedure Note Bone III, Dori Desai MD - 03/18/2023 PROCEDURE INFORMATION: Exam: CT Maxillofacial With Contrast Exam date and time: 03/18/2023 1:17 PM Age: 82 years old Clinical indication: Chest pressure; Neck pain; Additional info: Dysphagia TECHNIQUE: Imaging protocol: Computed tomography of the face with contrast. Imagingfrom above the superior aspect of the frontal sinuses through the face andneck. COMPARISON: No relevant prior studies available. FINDINGS: Orbital cavities: The orbits appear unremarkable. Bones/joints: There is no rim enhancing fluid collection identified.Evaluation of the oral cavity in particular is limited by streak artifact arisingfrom dental hardware. There is slight anterolisthesis of C3 on C4. Paranasal sinuses: The paranasal sinuses are clear except for very minimal mucosal thickening inferiorly in the left maxillary sinus, and focalmucosal thickening in the posterior right ethmoid. Mastoid air cells: Mastoid air cells are clear. Soft tissues: No rim enhancing fluid collection identified. Brain: the imaged intracranial structures demonstrate no mass effect or hydrocephalus. Nasal cavity: The nasal airway is patent. The nasal septum is midline. Pharynx: There is thickening of the soft palate more so on the right. IMPRESSION IMPRESSION: 1. Thickening of the soft palate more so on the right. No defined rim enhancing fluid collection identified. 2. Minimal mucosal sinus disease. PROCEDURE INFORMATION: Exam: CT Neck With Contrast Exam date and time: 03/18/2023 1:17 PM Age: 82 years old Clinical indication: Chest pressure; Neck pain; Additional info: Dysphagia TECHNIQUE: Imaging protocol: Computed tomography of the neck with contrast. 3D rendering (Not supervised by radiologist): MIP and/or 3D reconstructed images were created by the technologist. Radiation optimization: All CT scans at this facility use at least one ofthese dose optimization techniques: automated exposure control; mA and/or kV adjustment per patient size (includes targeted exams where dose is matchedto clinical indication); or iterative reconstruction. Contrast material: OPTIRAY; Contrast volume: 320 ml; Contrast route: INTRAVENOUS (IV); COMPARISON: MRI ORBIT/FACE/NECK 08/02/2016 3:12 PM FINDINGS: Dental: Assessment of the oral cavity is limited by streak artifactarising from dental hardware. Pharynx: There is thickening of the soft palate more so on the right. No defined fluid collection is evident. The valleculae are not effaced. Thereis underdistention of the piriform sinuses. Larynx: The epiglottis is not enlarged. Prevertebral and retropharyngeal spaces: Unremarkable. Salivary glands: Parotid glande appear unremarkable. Submandibular glandsapper unremarkable. Thyroid: The thyroid is diminutive and may have been surgically removed. Lymph nodes: No lymphadenopathy. Trachea: The airway is patent. Lungs: Unremarkable as visualized. Bones/joints: There is slight anterolisthesis of C3 on C4. Slight anterolisthesis of C7 on T1. Age consistent multilevel degenerativechanges. Vasculature: Atherosclerotic calcification demonstrated within the leftcarotid bifurcation. The internal jugular veins are flow patent bilaterally. Soft tissues: No rim enhancing fluid collection evident. There is nothickening of the platysma. IMPRESSION: 1. Thickening of the soft palate more so on the right. 2. No evidence of epiglottitis. 3. No rim enhancing fluid collection identified. PROCEDURE INFORMATION: Exam: CT Chest With Contrast; Diagnostic Exam date and time: 03/18/2023 1:17 PM Age: 82 years old Clinical indication: Chest pressure; Neck pain; Additional info: Dysphagia TECHNIQUE: Imaging protocol: Diagnostic computed tomography of the chest withcontrast. 3D rendering (Not supervised by radiologist): MIP and/or 3D reconstructed images were created by the technologist. Radiation optimization: All CT scans at this facility use at least one ofthese dose optimization techniques: automated exposure control; mA and/or kV adjustment per patient size (includes targeted exams where dose is matchedto clinical indication); or iterative reconstruction. Contrast material: OPTIRAY; Contrast volume: 320 ml; Contrast route: INTRAVENOUS (IV); COMPARISON: CT Thorax^PE (Adult) 10/09/2020 12:30 AM FINDINGS: Tubes, catheters and devices: A transcatheter aortic valve prosthesis isnoted. A cardiac pacemaker is present with leads extending into the RA and RV. Lungs: Imaged portions of the distal trachea as well as right and leftmainstem bronchi are patent. There are multiple areas of predominantly peripheral pulmonary parenchymal densities suggesting areas of scarring and/oratelectasis but nonspecific. Scattered reticular densities are also present. No largearea of consolidation noted. Lung aeration is overall improved from previousdue to re-expansion following resolution of the pleural effusions. Pleural spaces: No residual pleural effusion noted. It is noted that atiny portion of the costophrenic angles is excluded from the imaging field bilaterally. Heart: The heart is not enlarged. There is no pericardial effusion. Coronary arteries: Coronary artery atherosclerotic calcification ispresent. Mediastinal space: No significant distention of the thoracic esophagus is identified. Small amount of gas is noted within the esophagusincidentally. Small hiatal hernia. Lymph nodes: No mediastinal or hilar adenopathy identified. Vasculature: The thoracic aorta is not dilated but does demonstrate atherosclerotic calcification. This examination not optimized forpulmonary artery evaluation, but there is no obvious pulmonary artery embolusidentified. Diaphragm: Small hiatal hernia. Intraperitoneal space: Imaged upper abdomen demonstrates no acuteappearing abnormality. Bones/joints: Skeletal windows demonstrates scattered degenerativechanges. Soft tissues: Unremarkable. IMPRESSION: 1. Small hiatal hernia. 2. No obvious esophageal distention. 3. Interval resolution of pericardial and pleural effusions with pulmonary reexpansion. 13. Predominantly peripheral subpleural parenchymal densities,nonspecific but favored to represent atelectasis and/or scarring. THIS DOCUMENT HAS BEEN ELECTRONICALLY SIGNED BY DORI HOGAN MD Dian Ruiz DO RAD CT * EXTRA GREEN TOP WITH GEL (03/18/2023 11:01 AM EST) Blood Venous blood specimen / Unknown Venipuncture / Unknown 03/18/2023 11:01 AM EST 03/18/2023 11:08 AM EST Dian Ruiz DO LAB BLOOD [facility] Organization Address City/State/[place] [address] * EXTRA LIGHT BLUE TOP (03/18/2023 11:01 AM EST) Blood Venous blood specimen / Unknown Venipuncture / Unknown 03/18/2023 11:01 AM EST 03/18/2023 11:08 AM EST Dian Ruiz DO LAB BLOOD [facility] [address] [place] [address] * (ABNORMAL) DIFFERENTIAL, AUTOMATED (03/18/2023 11:01 AM EST) WBC 11.99(H) 4.00 - 10.80 K/uL 03/18/2023 11:11 AM EST LABORATORY GL Neutrophils % 84.5(H) 40.0 - 75.0 % 03/18/2023 11:11 AM EST LABORATORY GL Lymphocytes % 7.1(L) 18.0 - 42.0 % 03/18/2023 11:11 AM EST LABORATORY GL Monocytes % 6.1 1.0 - 11.0 % 03/18/2023 11:11 AM EST LABORATORY GLH Eosinophils % 1.4 0.0 - 6.0 % 03/18/2023 11:11 AM EST LABORATORY GL Basophils % 0.5 0.0 - 2.0 % 03/18/2023 11:11 AM EST LABORATORY GL Immature Granulocytes % 0.4 0.0 - 2.0 % 03/18/2023 11:11 AM EST LABORATORY GL Absolute Neutrophils 10.13(H) 1.80 - 7.70 K/uL 03/18/2023 11:11 AM EST LABORATORY GL Absolute Lymphocytes 0.85(L) 1.00 - 4.80 K/ul 03/18/2023 11:11 AM EST LABORATORY GL Absolute Monocytes 0.73 0.00 - 1.10 K/uL 03/18/2023 11:11 AM EST LABORATORY GL Absolute Eosinophils 0.17 0.00 - 0.70 K/uL 03/18/2023 11:11 AM EST LABORATORY GL Absolute Basophils 0.06 0.00 - 0.20 K/uL 03/18/2023 11:11 AM EST LABORATORY GL Absolute Immature Granulocytes 0.05 0.00 - 0.20 K/uL 03/18/2023 11:11 AM EST LABORATORY GL Blood Venous blood specimen / Unknown Venipuncture / Unknown 03/18/2023 11:01 AM EST 03/18/2023 11:07 AM EST Dian Ruiz DO LAB BLOOD [facility] Performing Organization Address City/[facility]/ZIP Co de Phone Number LABORATORY [facility] [address] [place] [address] * (ABNORMAL) CBC (03/18/2023 11:01 AM EST) WBC 11.99(H) 4.00 - 10.80 K/uL 03/18/2023 11:11 AM EST LABORATORY GL RBC 4.56 3.85 - 5.15 M/uL 03/18/2023 11:11 AM EST LAB[facility]ATORY [facility] HGB 14.6 12.0 - 15.3 g/dL 03/18/2023 11:11 AM EST LABORATORY [facility] HCT 44.0 36.0 - 45.2 % 03/18/2023 11:11 AM EST LABORATORY GL MCV 96.5 81.5 - 97.5 fL 03/18/2023 11:11 AM EST LABORATORY GL MCH 32.0 27.0 - 34.0 pg 03/18/2023 11:11 AM EST LABORATORY GL MCHC 33.2 32.0 - 36.0 g/dL 03/18/2023 11:11 AM EST LABORATORY GL RDW 12.5 11.5 - 15.5 % 03/18/2023 11:11 AM EST LABORATORY GL PLT 217 140 - 400 K/uL 03/18/2023 11:11 AM EST [facility] MPV 9.2 6.6 - 11.1 fL 03/18/2023 11:11 AM EST LABORATORY GL nRBCs 0 <=0 /100 WBCs 03/18/2023 11:11 AM EST [facility] Blood Venous blood specimen / Unknown Venipuncture / Unknown 03/18/2023 11:01 AM EST 03/18/2023 11:07 AM EST Dian Villatorojonathan Noenancy DO LAB BLOOD [facility] [address] [place] [address] * BASIC METABOLIC PANEL (03/18/2023 11:01 AM EST) BUN 14 6 - 20 mg/dL 03/18/2023 11:29 AM EST LABORATORY GL Creatinine 0.8 0.5 - 1.0 mg/dL 03/18/2023 11:29 AM EST LABORATORY GL Estimated Glomerular Filtration Rate 71 >=60 mL/min 03/18/2023 11:29 AM EST LAB[facility]ORY [facility] Comment:eGFR is calculated b ased on the CKD-EPI 2020 equation Sodium 140 135 - 146 mmol/L 03/18/2023 11:29 AM EST LABORATORY [facility] Potassium 4.2 3.5 - 5.1 mmol/L 03/18/2023 11:29 AM EST LAB[facility]ATORY [facility] Chloride 102 98 - 107 mmol/L 03/18/2023 11:29 AM EST LAB[facility]ORY [facility] CO2 24 22 - 32 mmol/L 03/18/2023 11:29 AM EST [facility]ORY [facility] Anion Gap 14 7 - 15 mmol/L 03/18/2023 11:29 AM EST LAB[facility]ATORY [facility] Glucose 112 70 - 120 mg/dL 03/18/2023 11:29 AM EST LAB[facility]ORY [facility] Calcium 9.7 8.4 - 10.2 mg/dL 03/18/2023 11:29 AM EST LAB[facility] Blood Venous blood specimen / Unknown Venipuncture / Unknown 03/18/2023 11:01 AM EST 03/18/2023 11:07 AM EST Dian Ruiz DO LAB BLOOD [facility]Y [facility] [address] [place] [address] documented in this encounter Visit Diagnoses Diagnosis Oropharyngeal dysphagia- Primary Dysphagia, oropharyngeal phase Oropharyngeal dysphagia Dysphagia, oropharyngeal phase documented in this encounter Administered Medications Inactive Administered Medications - up to 3 most recent administrations Medication Order MAR Action Action Date Dose Rate Site Glycopyrrolate (Robinul) inj 0.1 mg 0.1 mg, Intravenous, ONCE, On Sat03/18/23 at 1630, For 1 dose, WASTE INFO: Return waste medication to pharmacy in zip lock bag - SPC container. Given 03/18/2023 4:03 PM EST 0.1 mg Ioversol (Optiray 320) inj 100 mL 100 mL, Intravenous, ONCE, On Sat03/18/23 at 1400, For 1 dose, Radiology Medication Routing (Non-IR) Given 03/18/2023 2:00 PM EST 100 mL documented in this encounter Active and Recently Administered Medications Times are shown in EST. Scheduled Medication Order 03/16/2023 03/17/2023 03/18/2023 Glycopyrrolate (Robinul) inj 0.1 mg (COMPLETED) 0.1 mg, Intravenous, ONCE, On Sat03/18/23 at 1630, For 1 dose, WASTE INFO: Return waste medication to pharmacy in zip lock bag - SPC container. 1603 (Given - Provid er: Hafsa Colbert RN) Ioversol (Optiray 320) inj 100 mL (COMPLETED) 100 mL, Intravenous, ONCE, On Sat03/18/23 at 1400, For 1 dose, Radiology Medication Routing (Non-IR) 1400 (Given - Provid er: Rolanda Tim RT) documented in this encounter Advance Directives Latest [...] the patient have Health Care Power of Clerk Of Works? No Full Code 09/25/2020 6:44 PM 09/26/2020 [...] the patient have Health Care Power of Clerk Of Works? No Care Teams Aircraft Painter Apprentice Relationship Specialty Start Date End Date Kalen Ribeiro MD [address] [place] [address] PCP - General 12/15/01 documented as of this encounter
--- OUTSIDE RECORDS SUMMARY | 2023-06-01 11:15 | External Medical Summary | Summary of Care ---
Author Name Unknown Organization [facility] Address [address] [place] [address] Phone [phone] Care Team Providers Care Learning Disabled Teacher Name Role Phone Kalen Ribeiro MD Primary Care Provider +1- [phone] Reason for Visit * Reason Onset Date Comments Blood Pressure Check 03/28/2023 Encounter Details Date Type Department Care Team (Late st Contact Info) Description 03/28/2023 Telephone [facility] [address] [place] [address] Kalen Ribeiro MD [address] [place] [address] Blood Pressure Check Allergies Active Allergy Reactions Criticality Noted Date [...] aorta 07/14/2021 Atherosclerotic heart diseas e of [place] coronary artery with other forms of angina pectoris 07/14/2021 Age-related osteoporosis wit hout current pathological fracture 07/14/2021 History of pulmonary embolism 06/08/2021 intermediate current use of anticoagulant therapy 1 04/12/2020 [...] encounter Miscellaneous Notes * Telephone Encounter - Mason Aparicio LPN - 03/28/2023 3:39 PM EST Called patient and informed of Halley's message. Patient verbalized understanding. * Telephone Encounter - Halley Preston CRNP - 03/28/2023 3:35 PM EST BP looks great with the addition of lisinopril- no changes. QUINCY Pacheco * Telephone Encounter - Adriane Adkins CCMA - 03/28/2023 1:46 PM EST Pt here for nurse visit for blood pressure check due to elevated blood pressure at last office visit. B/P 122/72 Pulse 71 BP Readings from Last 4 Encounters: 03/18/23 143/79 03/15/23 122/80 02/27/23 150/90 12/25/22 136/82 Please advise. documented in this encounter Plan of Treatment Upcoming Encounters Date Type Department Care Team (Latest Contact Info) Description 04/05/2023 1:11 PM EST Hospital Encounter [facility], Operating Room, [facility] - 4th Floor [address] [place] [address] Manjit Webb MD [address] [place] [address] 04/05/2023 1:11 PM EST - 04/05/2023 1:51 PM EST Surgery OR [facility], Operating Room, [facility] - 4th Floor [address] [address] Manjit Webb MD [address] [place] [address] ESOPHAGOGASTRODUODENOSCOPY (EGD), FLEXIBLE, TRANSORAL, DIAGNOSTIC 04/18/2023 11:00 AM EST Office Visit Orthopaedics [facility] [address] [address] Chava Huff PA-C [address] [place] [address] 06/28/2023 8:00 AM EDT Office Visit [facility] [address] [facility], [place] [address] Kalen Ribeiro MD [address] [place] [address] 09/02/2023 9:00 AM EDT Office Visit Cardiology, [facility] [address] [place] [address] Halley Preston CRNP [address] [place] [address] 09/05/2023 10:30 AM EDT Rehab Services Voice Lab, [facility] [address] [place] [address] Lance Samuels, [facility] SUPERVISOR [address] [facility] [place] [address] 09/05/2023 11:00 AM EDT Appointment Radiology, [facility] [address] [place] [address] 02/10/2024 10:00 AM EST Cardiac Studies Cardiology, [facility] [address] [place] [address] [facility] [address] [place] [address] 02/13/2024 8:15 AM EST Cardiac Studies Cardiac Studies, [facility] [address] [place] [address] Scheduled Procedures Name Priority Associated Diagnoses Date/Ti me ESOPHAGOGASTRODUODENOSCOPY ( EGD), FLEXIBLE, TRANSORAL, DIAGNOSTIC Dysphagia 04/05/2023 1:11 PM EST Health Maintenance Due Date Last Done Comments Zoster Vaccines (2 of 3) 07/17/2007 05/22/2007 COVID-19 Vaccine (2022- season) 2022 12/26/2021, 02/14/2021, 06/09/2020, Additional history exists DXA Scan 02/14/2023 02/14/2021, 06/10, 07/21/2014, Additional history exists Albumin/Creatinine Ratio 06/09/2023 06/08/2022, 05/11 CKD PHOS USE SMARTSET 00009 06/09/202305/11, 12/16/2020, 09/26/2020, Additional history exists Depression Screening 06/13/2023 06/12/2022 GFR 09/16/2023 03/18/2023, 02/09, 11/20/2022, Additional history exists TSH 12/26/2023 12/25/2022, 05/11, 12/11/2021, Additional history exists CKD HGB USE SMARTSET 23645 03/18/202403/18, 03/18/2023, 11/20/2022, Additional history exists DTaP,Tdap,and Td Vaccines (2 - Td or Tdap) 08/14/2024 08/14/2014, 01/25/2000 Pneumococcal Vaccine: 65+ Years Completed 01/06/2015, 08/19/2007 VITAMIN D LEVEL ONCE IN A LIFETIME-USE SMARTSET# [id number] Completed 12/11/2018, 07/07/2018, 10/06/2010 Influenza Vaccine (FLU [...] this encounter Medical Devices Implanted Type [employer] Device Identifier Shelf Expiration Date Model / Serial / Lot Lead Tempo Temp Pacing - [id number] Implanted:Qty: 1 on 09/20/2020 by Dimitri Maya MD at [facility] [employer] [id number] 06/28/2021 [id number] / / [id number] documented as of this encounter Advance Directives [...] the patient have Health Care Power of Russian Teacher? No Full Code 09/25/2020 6:44 PM 09/26/2020 [...] the patient have Health Care Power of Russian Teacher? No Care Teams Learning Disabled Teacher Relationship Specialty Start Date End Date Kalen Ribeiro MD [address] [place] [address] PCP - General 12/15/01 documented as of this encounter
--- OUTSIDE RECORDS SUMMARY | 2023-06-01 11:16 | External Medical Summary | Summary of Care ---
Author Name Unknown Organization [facility] Address [address] [place] [address] Phone [phone] Care Team Providers Care Hand Ii Cutter Name Role Phone Kalen Ribeiro MD Primary Care Provider +1- [phone] Reason for Visit * Reason Comments Wound Recheck Encounter Details Date Type Department Care Team (Latest Contact Info) Description 01/01/2023 1:00 PM EDT Cardiac Studies Cardiology, [facility] [address] [place] [address] [facility] [address] [place] [address] Cardiac pacemaker in situ* Allergies Active Allergy Reactions Criticality Noted Date Comments Heparin 10/07/2020 Concern for HIT documented as of this encounter (statuses as of 01/01/2023) Medications Medication Sig Dispensed Refills Start Date [...] by mouth in the morning. 0 Active Atorvastatin Calcium 20 MG Oral Tablet (Lipitor)Indications :Dyslipidemia, goal LDL below 70 TAKE ONE TABLET BY MOUTH DAILY. 90 Tablet 3 10/13/2021 Active Rocklatan 0.02-0.005 % Ophthalmic Solution (Netarsudil-Latanopr [...] before bedtime. 60 Tablet 11 12/25/2022 Active documented as of this encounter (statuses as of 01/01/2023) Active Problems Problem Noted Date Diagnosed Date Cardiac pacemaker in situ 12/05/2022 Chronic kidney disease, stage 3a 07/16/2022 Overview: Per CKD protocol 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 06/18/2022 Overview: Per CKD protocol Paroxysmal atrial fibrillation 03/29/2022 HIT (heparin-induced thrombocytopenia) 3 Atherosclerosis of aorta 07/14/2021 Atherosclerotic heart diseas e of [place] coronary artery with other forms of angina pectoris 07/14/2021 Age-related osteoporosis wit hout current pathological fracture 07/14/2021 History of pulmonary embolism 06/08/2021 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 1 [...] as of this encounter (statuses as of 01/01/2023) Resolved Problems Problem Noted Date Diagnosed Date [...] as of this encounter (statuses as of 01/01/2023) Immunizations Name Administration Dates Next Due COVID-19 mRNA, LNP-s, No Pre serve, 2-Dose Series (Moderna) 06/09/2020,05/12/2020 COVID-19, mRNA, LNP-s, PF, B ooster, 100mcg/0.5mg (Moderna) 02/14/2021 Covid-19, Mrna, Lnp-s, Pf, B ivalent, 30 Mcg, IM, 12 yrs and above (Pfizer) 12/26/2021 Pneumococcal Conjugate Vacc, 13 Valent (Prevnar) 01/06/2015 Pneumococcal Polysaccharide PPV23 (Pneumovax) 08/19/2007 SEASONAL INFLUENZA, PF, 6 M & Above, IM , (FLULAVAL or FLUZONE) 11/19/2019,11/29/2018,12/05/2017,01/17 Seasonal Influenza, Quadriva lent Hd (Fluzone [...] or making decisions? (5 years old or older No 10/10/2020 documented as of this encounter Nursing Notes * Marika Gutierrez RN - 01/01/2023 1:10 PM EDT Silver dressing removed from site of implant today. Incision well approximated, clean, dry. Dressing dry upon removal. Dr. Mason assessed incision, no concerning findings. Area left open to air. Patient advised OK to shower at this time. documented in this encounter Plan of Treatment Upcoming Encounters Date Type Department Care Team (Late st Contact Info) Description 02/08/2023 10:15 AM EST Cardiac Studies Cardiology, [address] [place] [address] [place] [address] [place] [address] 02/11/2023 8:15 AM EST Cardiac Studies Cardiac Studies, [facility] [address] [facility] [place] [address] 02/27/2023 10:30 AM EST Office Visit Cardiology, [facility] [address] [facility] [place] [address] Halley [facility] [place] [address] 02/28/2023 9:00 AM EST Office Visit Orthopaedics [facility] [address] [facility] [place] [address] Chava Huff PA-C [address] [facility] [place] [address] 06/28/2023 8:00 AM EDT Office Visit [facility] [address] [place] [id number] Kalen Ribeiro MD [address] [place] [address] Health Maintenance Due Date Last Done Comments Zoster Vaccines (2 of 3) 07/17/2007 05/22/2007 COVID-19 Vaccine ( season) 2022 12/26/2021, 02/14/2021, 06/09/2020, Additional history exists DXA Scan 02/14/2023 02/14/2021, 06/10, 07/21/2014, Additional history exists GFR 05/21/2023 11/20/2022, 05/11, 12/11/2021, Additional history exists Albumin/Creatinine Ratio 06/09/2023 06/08/2022, 05/11 CKD PHOS USE SMARTSET 92004 06/09/202305/11, 12/16/2020, 09/26/2020, Additional history exists Depression Screening 06/13/2023 06/12/2022 CKD HGB USE SMARTSET 04306 11/21/202311/20, 06/08/2022, 06/08/2022, Additional history exists TSH 12/26/2023 12/25/2022, 05/11, 12/11/2021, Additional history exists DTaP,Tdap,and Td Vaccines (2 - Td or Tdap) 08/14/2024 08/14/2014, 01/25/2000 Pneumococcal Vaccine: 65+ Years Completed 01/06/2015, 08/19/2007 VITAMIN D LEVEL ONCE IN A LIFETIME-USE SMARTSET# [id number] Completed 12/11/2018, 07/07/2018, 10/06/2010 Influenza Vaccine (FLU [...] this encounter Medical Devices Implanted Type Area Sulfuric Acid Plant Supervisor Device Identifier Shelf Expiration Date Model / Serial / Lot Lead Tempo Temp Pacing - [id number] Implanted:Qty: 1 on 09/20/2020 by Dimitri Maya MD [place] [facility] [place] [employer] [id number] 06/28/2021 [id number] / / [id number] documented as of this encounter Visit Diagnoses Diagnosis Cardiac pacemaker in situ- Primary documented in this encounter Advance Directives Latest [...] the patient have Health Care Power of Horticultural Technical Officer? No Full Code 09/25/2020 6:44 PM 09/26/2020 [...] the patient have Health Care Power of Horticultural Technical Officer? No Care Teams Hand Ii Cutter Relationship Specialty Start Date End Date Kalen Ribeiro MD [address] [place] [address] PCP - General 12/15/01 documented as of this encounter
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
--- OUTSIDE RECORDS SUMMARY | 2023-06-01 11:16 | External Medical Summary | Summary of Care ---
Author Name Unknown Organization [facility] Address [address] [place] [address] Phone [phone] Care Team Providers Care Chairman Name Role Phone Kalen Ribeiro MD Primary Care Provider +1- [phone] Reason for Visit * Reason Comments Pacemaker Clinic Encounter Details Date Type Department Care Team (Latest Contact Info) Description 02/08/2023 10:15 AM EST Cardiac Studies Cardiology, [facility] [address] [facility] [place] [address] [place], Pacer Clinic [facility] [address] [facility] [place] [address] Cardiac pacemaker in situ*; SSS (sick sinus syndrome) ([facility]) Allergies Active Allergy Reactions Criticality Noted Date Comments Heparin 10/07/2020 Concern for HIT documented as of this encounter (statuses as of 02/20/2023) Medications Medication Sig Dispensed Refills Start Date [...] as of this encounter (statuses as of 02/20/2023) Active Problems Problem Noted Date Diagnosed Date Cardiac pacemaker in situ 12/05/2022 Chronic kidney disease, stage 3a 07/16/2022 Overview: Per CKD protocol 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 06/18/2022 Overview: Per CKD protocol Paroxysmal atrial fibrillation 03/29/2022 HIT (heparin-induced thrombocytopenia) 3 Atherosclerosis of aorta 07/14/2021 Atherosclerotic heart diseas e of [place] coronary artery with other forms of angina pectoris 07/14/2021 Age-related osteoporosis wit hout current pathological fracture 07/14/2021 History of pulmonary embolism 06/08/2021 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 1 [...] as of this encounter (statuses as of 02/20/2023) Resolved Problems Problem Noted Date Diagnosed Date [...] as of this encounter (statuses as of 02/20/2023) Immunizations Name Administration Dates Next Due COVID-19 mRNA, LNP-s, No Pre serve, 2-Dose Series (Moderna) 06/09/2020,05/12/2020 COVID-19, mRNA, LNP-s, PF, B ooster, 100mcg/0.5mg (Moderna) 02/14/2021 Covid-19, Mrna, Lnp-s, Pf, B ivalent, 30 Mcg, IM, 12 yrs and above (Perfect Audience) 12/26/2021 Pneumococcal Conjugate Vacc, 13 Valent (Prevnar) [...] as of this encounter Progress Notes * Katya Ford RN - 02/20/2023 2:48 PM EST Patient and implanted device were evaluated today in the [facility]. Providers please see scanned report in the Scans tab. Katya Ford RN documented in this encounter Nursing Notes * Leonor Escalona LPN - 02/08/2023 12:42 PM EST Patient and implanted device were evaluated today in the [facility]. Providers please see scanned report in the Scans tab. Tech: Florencia Mir documented in this encounter Plan of Treatment Upcoming Encounters Date Type Department Care Team (Late st Contact Info) Description 02/27/2023 10:30 AM EST Office Visit Cardiology, [facility] [address] [facility] [place] [address] Halley Preston CRNP 132 [facility] [place] [address] 02/28/2023 9:00 AM EST Office Visit Orthopaedics [facility] [address] [facility] [place] [address] Chava Huff PA-C [address] [facility] [place] [address] 06/28/2023 8:00 AM EDT Office Visit [facility] [address] [place] [address] Kalen Ribeiro MD [address] [place] [address] 02/10/2024 10:00 AM EST Cardiac Studies Cardiology, [facility] [address] [facility] [place] [address] [facility] [address] [facility] [place] [address] 02/13/2024 8:15 AM EST Cardiac Studies Cardiac Studies, [facility] [address] [facility] [place] [address] Scheduled Orders Name Type Priority Associated Diagnoses Orde r Schedule POSTOP F-UP VISIT IN GLOBAL Procedures Routine Cardiac pacemaker in situ SSS (sick sinus syndrome) (HCC) Ordered: 02/08/2023 Health Maintenance Due Date Last Done Comments Zoster Vaccines (2 of 3) 07/17/2007 05/22/2007 COVID-19 Vaccine ( season) 2022 12/26/2021, 02/14/2021, 06/09/2020, Additional history exists DXA Scan 02/14/2023 02/14/2021, 06/10, 07/21/2014, Additional history exists GFR 05/21/2023 11/20/2022, 05/11, 12/11/2021, Additional history exists Albumin/Creatinine Ratio 06/09/2023 06/08/2022, 05/11 CKD PHOS USE SMARTSET 08865 06/09/202305/11, 12/16/2020, 09/26/2020, Additional history exists Depression Screening 06/13/2023 06/12/2022 CKD HGB USE SMARTSET 11432 11/21/202311/20, 06/08/2022, 06/08/2022, Additional history exists TSH 12/26/2023 12/25/2022, 05/11, 12/11/2021, Additional history exists DTaP,Tdap,and Td Vaccines (2 - Td or Tdap) 08/14/2024 08/14/2014, 01/25/2000 Pneumococcal Vaccine: 65+ Years Completed 01/06/2015, 08/19/2007 VITAMIN D LEVEL ONCE IN A LIFETIME-USE SMARTSET# [id number] Completed 12/11/2018, 07/07/2018, 10/06/2010 Influenza Vaccine (FLU [...] this encounter Medical Devices Implanted Type Area Labor Specialist Device Identifier Shelf Expiration Date Model / Serial / Lot Lead Tempo Temp Pacing - [id number] Implanted:Qty: 1 on 09/20/2020 [place] Dimitri Maya [place] [facility] [place] [employer] [id number] 06/28/2021 [id number] / / [id number] documented as of this encounter Visit Diagnoses Diagnosis Cardiac pacemaker in situ- Primary SSS (sick sinus syndrome) (HCC) Sinoatrial node dysfunction documented in this encounter Advance Directives Latest [...] the patient have Health Care Power of Pigeon Fancier? No Full Code 09/25/2020 6:44 PM 09/26/2020 [...] the patient have Health Care Power of Pigeon Fancier? No Care Teams Chairman Relationship Specialty Start Date End Date Kalen Ribeiro MD [address] [place] [address] PCP - General 12/15/01 documented as of this encounter
--- OUTSIDE RECORDS SUMMARY | 2023-06-01 11:16 | External Medical Summary | Summary of Care ---
Author Name Unknown Organization [facility] Address [address] [place] [address] Phone [phone] Care Team Providers Care Paint Mixer Machine Name Role Phone Kalen Ribeiro MD Primary Care Provider [phone]- [phone] Reason for Visit * Reason Comments Follow Up Wound check Encounter Details Date Type Department Care Team Description 12/27/2022 Cardiac Studies Cardiac Studies, [facility] [address] [place] [address] Cardiac pacemaker in situ* Allergies [...] aorta 07/14/2021 Atherosclerotic heart diseas e of [place] coronary artery with other forms of angina pectoris 07/14/2021 Age-related osteoporosis without current pathological fracture 07/14/2021 History of pulmonary embolism 06/08/2021 skilled nursing current use of anticoagulant t herapy 02/09/2021 [...] Description 01/01/2023 Cardiac Studies Cardiology Rosalinda Caldera [address] [place] [address] 02/08/2023 Cardiac Studies Cardiology [facility], Pacer Clinic [facility] [address] [place] [address] 02/11/2023 Cardiac Studies Cardiac Studies 02/27/2023 Office Visit Cardiology Halley Preston CRNP [address] [place] [address] 02/28/2023 Office Visit Orthopedics Chava Huff PA-C [address] [place] [address] 06/28/2023 Office Visit Family Medicine Kalen Ribeiro MD [address] [place] [address] Health Maintenance Due Date Last Done Comments Zoster Vaccines (2 of 3) 07/17/2007 05/22/2007 COVID-19 Vaccine ( season) 2022 12/26/2021, 02/14/2021, 06/09/2020, Additional history exists DXA Scan 02/14/2023 02/14/2021, 06/10, 07/21/2014, Additional history exists GFR 05/21/2023 11/20/2022, 05/11, 12/11/2021, Additional history exists Albumin/Creatinine Ratio 06/09/2023 06/08/2022, 05/11 CKD PHOS USE SMARTSET 20869 06/09/202305/11, 12/16/2020, 09/26/2020, Additional history exists Depression Screening 06/13/2023 06/12/2022 CKD HGB USE SMARTSET 68980 11/21/202311/20, 06/08/2022, 06/08/2022, Additional history exists TSH 12/26/2023 12/25/2022, 05/11, 12/11/2021, Additional history exists DTaP,Tdap,and Td Vaccines (2 - Td or Tdap) 08/14/2024 08/14/2014, 01/25/2000 Pneumococcal Vaccine: 65+ Years Completed 01/06/2015, 08/19/2007 VITAMIN D LEVEL ONCE IN A LIFETIME-USE SMARTSET# [id number] Completed 12/11/2018, 07/07/2018, 10/06/2010 Influenza Vaccine (FLU [...] this encounter Medical Devices Implanted Type Area Plastics Fabricator And Assembler Device Identifier Shelf Expiration Date Model / Serial / Lot Lead Tempo Temp Pacing - [id number] Implanted:Qty: 1 on 09/20/2020 by Dimitri Maya MD at [facility] [place] [employer] [id number] 06/28/2021 [id number] / / [id number] documented as of this encounter Visit Diagnoses [...] the patient have Health Care Power of Email Marketing Intern? No Full Code 09/25/2020 6:44 PM 09/26/2020 [...] the patient have Health Care Power of Email Marketing Intern? No Care Teams Paint Mixer Machine Relationship Specialty Start Date End Date Kalen Ribeiro MD [address], [place] [id number] PCP - General 12/15/01 documented as of this encounter
--- OUTSIDE RECORDS SUMMARY | 2023-06-01 11:16 | External Medical Summary | Summary of Care ---
Author Name Unknown Organization [facility] Address [address] [place] [address] Phone [phone] Care Team Providers Care Automotive Parts Advisor Name Role Phone Kalen Ribeiro MD Primary Care Provider +1- [phone] Reason for Referral * Evaluate & Treat - Unlimited Visits (Within 3 days (urgent)) - Authorized Specialty Diagnoses / Procedures Referred By Nithin regan Referred To Contact Otolaryngology Diagnoses Oropharyngeal dysphagia Hoarseness of voice Kalen Ribeiro MD [address] [place] [address] Referral ID Status Reason Start Date Expiration Date Visits Requested Visits Authorized [id number] Authorized Specialty Services Required 03/15/2023 999 999 Question Answer Referral Priority Within 3 days (urgent) Where should this appointment be scheduled? [facility] Reason for Referral Throat Conditions Specific Condition: Dysphagia (swallowing concerns) Reason for Visit * Reason Comments Acute Pt states that she i s not able to swallow food since Saturday, throat feels horsey, pt states that she can't swallow solid food Encounter Details Date Type Department Care Team (Latest Contact Info) Description 03/15/2023 1:20 PM EST Office Visit [facility] [address] [place] [facility] [place] [address] Kalen Ribeiro MD [address] [place] [address] Oropharyngeal dysphagia*; Hoarseness of voice; Other giant cell arteritis (HCC); Atherosclerosis of aorta (HCC); Sick sinus syndrome (HCC); HIT (heparin-induced thrombocytopenia) (HCC); Atherosclerotic heart disease of [place] coronary artery with other forms of angina pectoris (HCC); 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); Atrial fibrillation, unspecified type (HCC); Primary open-angle glaucoma, bilateral, moderate stage; Hypothyroidism, unspecified type; Age-related osteoporosis without current pathological fracture; Dyslipidemia, goal LDL below 130 Allergies Active Allergy Reactions Criticality Noted Date Comments Heparin 10/07/2020 Concern for HIT documented as of this encounter (statuses as of 03/15/2023) Medications Medication Sig Dispensed Refills Start Date [...] as of this encounter (statuses as of 03/15/2023) Active Problems Problem Noted Date Diagnosed Date Other giant cell arteritis 03/15/2023 Sick sinus syndrome 03/15/2023 Atrial fibrillation 03/15/2023 Cardiac pacemaker in situ 12/05/2022 Chronic kidney disease, stage 3a 07/16/2022 Overview: Per CKD protocol 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 06/18/2022 Overview: Per CKD protocol Paroxysmal atrial fibrillation 03/29/2022 HIT (heparin-induced thrombocytopenia) Atherosclerosis of aorta 07/14/2021 Atherosclerotic heart diseas e of [place] coronary artery with other forms of angina pectoris 07/14/2021 Age-related osteoporosis wit hout current pathological fracture 07/14/2021 History of pulmonary embolism 06/08/2021 senior care current use of anticoagulant therapy 1 04/12/2020 [...] as of this encounter (statuses as of 03/15/2023) Resolved Problems Problem Noted Date Diagnosed Date [...] as of this encounter (statuses as of 03/15/2023) Immunizations Name Administration Dates Next Due COVID-19 [...] Sign Reading Time Taken Comments Blood Pressure 122/80 03/15/2023 1:29 PM EST Pulse 98 03/15/2023 1:29 PM EST Temperature 36.2 C (97.2 F) 03/15/2023 1:29 PM ES T Respiratory Rate 16 03/15/2023 1:29 PM EST Oxygen Saturation 98% 03/15/2023 1:29 PM EST Inhaled Oxygen Concentration - - Weight 50.4 kg (111 lb 3.2 oz) 03/15/2023 1:29 P M EST Height 144.8 cm (4' 9") 03/15/2023 1:29 PM EST Body Mass Index 24.06 03/15/2023 1:29 PM EST documented in this encounter Functional [...] Progress Notes * Kalen Ribeiro MD - 03/15/2023 9:07 PM EST Subjective: Marie Nieves is a 82 year old female here today for Chief Complaint Patient presents with Acute Pt states that she is not able to swallow food since Saturday, throat feels horsey, pt states thatshe can't swallow solid food Pt has complex PMH as detailed below: Patient Active Problem List Diagnosis Code Dyslipidemia, goal LDL below 130 E78.5 Hypothyroidism E03.9 History of adenomatous polyp of colon Z86.010 HTN, goal below 140/90 I10 Vitamin D deficiency E55.9 Primary open-angle glaucoma, bilateral, moderate stage H40.1132 Gastroesophageal reflux disease without esophagitis K21.9 Pericardial effusion I31.39 S/P TAVR (transcatheter aortic valve replacement) Z95.2 History of pericarditis Z86.79 Iron deficiency anemia D50.9 senior care current use of anticoagulant therapy Z79.01 History of pulmonary embolism Z86.711 Atherosclerosis of aorta (HCC) I70.0 Atherosclerotic heart disease of [place] coronary artery with other forms of angina pectoris (HCC) I25.118 Age-related osteoporosis without current pathological fracture M81.0 Paroxysmal atrial fibrillation (HCC) I48.0 HIT (heparin-induced thrombocytopenia) ([facility]) D75.829 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) I12.9, N18.31 Chronic kidney disease, stage 3a (HCC) N18.31 Cardiac pacemaker in situ Z95.0 Other giant cell arteritis ([facility]) M31.6 Sick sinus syndrome (HCC) I49.5 Atrial fibrillation (HCC) I48.91 She presents for an acute visit to discuss the sudden inability to swallow solid foods. 2 days ago,she ate breakfast and lunch fine. She was eating dinner (a hot dog) and while trying to swallow it,realized that she just could not get the food to the back of her throat and down into the esophagus. She reports that she has been unable to swallow solid foods since that time. No choking. No breathing problems. Food has not been getting stuck in the esophagus - it is more that she cannot get it into the esophagus. She states that yesterday, she started to notice worsening hoarseness of voice. SHe has had a little cough. She has had chronic issues with rhinitis and post nasal drip. When the swallowing issues started, there were no other apparent neuro symptoms. No visual change, speech problems, facial droop. She has been able to swallow liquids ok and foods that are the consistency of apple sauce. Past Medical History: Diagnosis Date Closed fracture [...] by Andrew Dudley MD at ENDOSCOPY [facility] COLONOSCOPY, DIAGNOSTIC (RECTUM) 06/20/2017 adenomatous polyp, diverticulosis/COLONOSCOPY FLEXIBLE PROXIMAL DIAGNOSTIC performed by Andrew Dudley MD at ENDOSCOPY [facility] DEXA SCAN/BONE MINERAL AXIAL 2006 osteoporosis, repeat 2 years DILATION AND CURETTAGE (D&C) unsure why ECHO (2-D COMPLETE) 10/12 Mild LVH, aortic scler - no stenosis FRACTURE NOS 10/12 L Tibial Plateau ORIF LIGATE/CUT OVIDUCT(S) LIGATION/BIOPSY OF TEMPORAL ARTERY Left 06/18/2016 06/18/2016 left temportal artery bx dx benign - [facility] Dr. Garcia LUMBAR / SACRAL EPIDURAL, SINGLE LEVEL 10/04/2015 INJECTION TRANSFORAMINAL EPIDURAL LUMBAR OR SACRAL performed by David Costello DO at OR [facility] LUMBAR / SACRAL EPIDURAL, SINGLE LEVEL 10/25/2015 INJECTION TRANSFORAMINAL EPIDURAL LUMBAR OR SACRAL performed by David Costello DO at OR [facility] MISCELLANEOUS ORDER ([facility] ONLY) 12/15 excision lipoma forehead REPLACE AORTIC VALVE, PERCUTANEOUS FEMORAL N/A 09/20/2020 REPLACE AORTIC VALVE, PERCUTANEOUS FEMORAL performed by Dimitri Maya MD [place] [facility] [place] REPLACE AORTIC VALVE, PERCUTANEOUS FEMORAL N/A 09/20/2020 REPLACE AORTIC VALVE, PERCUTANEOUS FEMORAL performed by Alexys Almazan MD, PhD at [facility] [place] TOTAL ABD HYSTERECTOMY W/WO REMOVAL OF TUBE(S) [...] Tab by mouth daily. 30 Tab 3 Amoxicillin 500 MG Oral Capsule (Amoxil) Take 4 Caps by mouth once as needed (prior to dental work)for up to 1 dose. Take 4 capsules 1 hour prior to any dental work 4 Cap 4 Biotin 5 MG Oral Capsule Take 2 [...] mouth in the morning. 30 Tablet 11 No current facility-administered medications for this visit. Objective: BP 122/80 (BP Site: Left Arm, BP Position: Sitting, BP Cuff Size: Regular) | Pulse 98 | Temp 36.2 C (97.2 F) (Temporal Artery) | Resp 16 | Ht 1.448 m (4' 9") | Wt 50.4 kg (111 lb 3.2 oz) | SpO2 98% | BMI 24.06 kg/m | BSA 1.42 m GEN: NAD HEENT: I do not seen any lesions on the mouth or oropharynx. NECK: I do not palpate any masses in the neck. CHEST: CTA B Assessment and Plan: Oropharyngeal dysphagia (Primary) Hoarseness of voice - OTOLARYNGOLOGY REFERRAL OP -pt presenting with concerning symptom of not being able to swallow solid food. The sudden onset raises concern for CVA - although no other neuro symptoms and has been stable since onset. Would suggest ENT eval for nasolaryngoscopy as the first step to make sure no visible lesions. This would also eval her hoarseness of voice. If no answers on that, would suggest video swallowing study. Pt will continue to intake fluids and very soft solids that she is able to swallow. Call for new or worseningsymptoms. -discussed case with ENT and they will work to get her in for evaluation next week Other giant cell arteritis (HCC) Atherosclerosis of aorta (HCC) Sick sinus syndrome (HCC) HIT (heparin-induced thrombocytopenia) (HCC) Atherosclerotic heart disease of [place] coronary artery with other forms of angina pectoris (HCC) 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) Atrial fibrillation, unspecified type (HCC) Primary open-angle glaucoma, bilateral, moderate stage Hypothyroidism, unspecified type Age-related osteoporosis without current pathological fracture Dyslipidemia, goal LDL below 130 -continue current treatments 35 min with pt and documentation and communication with specialist Kalen Ribeiro MD documented in this encounter Nursing Notes * Adriane Adkins CCMA - 03/15/2023 1:29 PM EST Marie Nieves is a 82 year old female who presents today for Chief Complaint Patient presents with Acute Pt states that she is not able to swallow food since Saturday, throat feels horsey, pt states thatshe can't swallow solid food documented in this encounter Plan of Treatment Upcoming Encounters Date Type Department Care Team (Late st Contact Info) Description 03/18/2023 1:00 PM EST Office Visit Otolaryngology [facility] 132 [facility] [place] [address] Tigre Samuels, 132 [facility] [place] [address] 03/26/2023 9:30 AM EST Nurse Only Ancillary Department, [facility] [address] [place] [address] [facility] [address] 04/18/2023 11:00 AM EST Office Visit Orthopaedics [facility] [address] [facility] [place] [address] Chava Huff PA-C [address] [facility] [place] [address] 06/28/2023 8:00 AM EDT Office Visit [facility] [address] [facility] [phone] Kalen Ribeiro MD [address] [place] [address] 09/02/2023 9:00 AM EDT Office Visit Cardiology, [facility] [address] [place] [address] Halley Preston CRNP [address] [place] [address] 02/10/2024 10:00 AM EST Cardiac Studies Cardiology, [facility] [address] [facility] [place] [address] [place], Pacer Clinic [facility] [address] [facility] [place] [address] 02/13/2024 8:15 AM EST Cardiac Studies Cardiac Studies, [facility] [place] [address] Scheduled Referrals Name Type Priority Associated Diagnoses [...] 06/09/2023 06/08/2022, 05/11 CKD PHOS USE SMARTSET 47282 06/09/202305/11, 12/16/2020, 09/26/2020, Additional history exists Depression Screening 06/13/2023 06/12/2022 GFR 09/05/2023 03/06/2023, 11/09, 06/08/2022, Additional history exists CKD HGB USE SMARTSET 07384 11/21/202311/20, 06/08/2022, 06/08/2022, Additional history exists TSH 12/26/2023 12/25/2022, 05/11, 12/11/2021, Additional history exists DTaP,Tdap,and Td Vaccines (2 - Td or Tdap) 08/14/2024 08/14/2014, 01/25/2000 Pneumococcal Vaccine: 65+ Years Completed 01/06/2015, 08/19/2007 VITAMIN D LEVEL ONCE IN A LIFETIME-USE SMARTSET# [id number] Completed 12/11/2018, 07/07/2018, 10/06/2010 Influenza Vaccine (FLU [...] this encounter Medical Devices Implanted Type Area Box Puller Device Identifier Shelf Expiration Date Model / Serial / Lot Lead Tempo Temp Pacing - [id number] Implanted:Qty: 1 on 09/20/2020 by Dimitri Maya MD at [facility] [place] [employer] [id number] 06/28/2021 [id number] / / [id number] documented as of this encounter Visit Diagnoses Diagnosis Oropharyngeal dysphagia- Primary Dysphagia, oropharyngeal phase Hoarseness of voice Dysphonia Other giant cell arteritis (HCC) Atherosclerosis of aorta (HCC) Atherosclerosis of aorta Sick sinus syndrome (HCC) Sinoatrial node dysfunction HIT (heparin-induced thrombocytopenia) (HCC) 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 No Full Code 09/25/2020 6:44 PM 09/26/2020 [...] the patient have Health Care Power of Slasher Tender? No Care Teams Automotive Parts Advisor Relationship Specialty Start Date End Date Kalen Ribeiro MD [address] [place] [address] PCP - General 12/15/01 documented as of this encounter
--- OUTSIDE RECORDS SUMMARY | 2023-06-01 11:16 | External Medical Summary ---
Author Name Unknown Address Unknown Organization [id number]:[facility] - [address] [place] [address] Laboratory Report Ordering Provider Test Date Status WILLIAM BULL 03/18/2023 11:01:53 Final Observation Date Value Abnormality Reference (Units ) Status WBC, Total 03/18/2023 11:01:53 11.99 Above high normal 4.00-10.80 (K/uL) Final RBC 03/18/2023 11:01:53 4.56 3.85-5.15 (M/uL) Final Hemoglobin 03/18/2023 11:01:53 14.6 12.0-15.3 (g/dL) Final HCT 03/18/2023 11:01:53 44.0 36.0-45.2 (%) Final MCV 03/18/2023 11:01:53 96.5 81.5-97.5 (fL) Final MCH 03/18/2023 11:01:53 32.0 27.0-34.0 (pg) Final MCHC 03/18/2023 11:01:53 33.2 32.0-36.0 (g/dL) Final RDW 03/18/2023 11:01:53 12.5 11.5-15.5 (%) Final Platelets 03/18/2023 11:01:53 217 140-400 (K/uL) Final MPV 03/18/2023 11:01:53 9.2 6.6-11.1 (fL) Final Nucleated erythrocytes/100 leukocytes [Ratio] in Blood by Automated count 03/18/2023 11:01:53 0 <=0 (/100 WBCs) Final Performing Location [facility] - [address] [place] [address]
--- OUTSIDE RECORDS SUMMARY | 2023-06-01 11:16 | External Medical Summary | Summary of Care ---
Author Name Unknown Organization [facility] Address [address] [place] [address] Phone [phone] Care Team Providers Care Stretcher Leveler Operator Name Role Phone Kalen Ribeiro MD Primary Care Provider [phone]- [phone] Reason for Visit * Reason Comments Outpatient Testing Encounter Details Date Type Department Care Team (Late st Contact Info) Description 03/06/2023 9:20 AM EST Laboratory Laboratory, [place] [address] [place] [address] [place], Laboratory [address] [place] [address] HTN, goal below 140/90 Allergies Active Allergy Reactions Criticality Noted Date Comments Heparin 10/07/2020 Concern for HIT documented as of this encounter (statuses as of 03/06/2023) Medications Medication Sig Dispensed Refills Start Date [...] as of this encounter (statuses as of 03/06/2023) Active Problems Problem Noted Date Diagnosed Date Cardiac pacemaker in situ 12/05/2022 Chronic kidney disease, stage 3a 07/16/2022 Overview: Per CKD protocol 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 06/18/2022 Overview: Per CKD protocol Paroxysmal atrial fibrillation 03/29/2022 HIT (heparin-induced thrombocytopenia) 3 Atherosclerosis of aorta 07/14/2021 Atherosclerotic heart diseas e of [place] coronary artery with other forms of angina pectoris 07/14/2021 Age-related osteoporosis wit hout current pathological fracture 07/14/2021 History of pulmonary embolism 06/08/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 1 04/12/2020 [...] as of this encounter (statuses as of 03/06/2023) Resolved Problems Problem Noted Date Diagnosed Date [...] as of this encounter (statuses as of 03/06/2023) Immunizations Name Administration Dates Next Due COVID-19 mRNA, LNP-s, No Pre serve, 2-Dose Series (Moderna) 06/09/2020,05/12/2020 COVID-19, mRNA, LNP-s, PF, B ooster, 100mcg/0.5mg (Moderna) 02/14/2021 Covid-19, Mrna, Lnp-s, Pf, B ivalent, 30 Mcg, IM, 12 yrs and above ([employer]) 12/26/2021 Pneumococcal Conjugate Vacc, 13 Valent (Prevnar) [...] Care Team (Late st Contact Info) Description 03/26/2023 9:30 AM EST Nurse Only Ancillary Department, [facility] [address] [place] [address] Nurse [facility] [address] [facility] [place] [address] 04/18/2023 11:00 AM EST Office Visit Orthopaedics [facility] [address] [facility] [place] [address] Chava Huff PA-C [address] [place] [address] 06/28/2023 8:00 AM EDT Office Visit [facility] [address] [facility], [place] [id number] Kalen Ribeiro MD [address] [place] [address] 09/02/2023 9:00 AM EDT Office Visit Cardiology, [facility] [address] [facility] [place] [address] Halley Preston CRNP [address] [place] [address] 02/10/2024 10:00 AM EST Cardiac Studies Cardiology, [facility] [address] [facility] [place] [address] [place], [facility] [address] [place] [address] 02/13/2024 8:15 AM EST Cardiac Studies Cardiac Studies, [facility] [address] [place] [address] Pending Results Name Type Priority Associated Diagnoses Date /Time BASIC METABOLIC PANEL Lab Routine HTN, goal below 140/90 03/06/2023 9:15 AM EST Health Maintenance Due Date Last Done Comments Zoster Vaccines (2 of 3) 07/17/2007 05/22/2007 COVID-19 Vaccine ( season) 2022 12/26/2021, 02/14/2021, 06/09/2020, Additional history exists DXA Scan 02/14/2023 02/14/2021, 06/10, 07/21/2014, Additional history exists GFR 05/21/2023 11/20/2022, 05/11, 12/11/2021, Additional history exists Albumin/Creatinine Ratio 06/09/2023 06/08/2022, 05/11 CKD PHOS USE SMARTSET 51817 06/09/202305/11, 12/16/2020, 09/26/2020, Additional history exists Depression Screening 06/13/2023 06/12/2022 CKD HGB USE SMARTSET 54388 11/21/202311/20, 06/08/2022, 06/08/2022, Additional history exists TSH 12/26/2023 12/25/2022, 05/11, 12/11/2021, Additional history exists DTaP,Tdap,and Td Vaccines (2 - Td or Tdap) 08/14/2024 08/14/2014, 01/25/2000 Pneumococcal Vaccine: 65+ Years Completed 01/06/2015, 08/19/2007 VITAMIN D LEVEL ONCE IN A LIFETIME-USE SMARTSET# [id number] Completed 12/11/2018, 07/07/2018, 10/06/2010 Influenza Vaccine (FLU [...] this encounter Medical Devices Implanted Type Area Poultry Veterinarian Device Identifier Shelf Expiration Date Model / Serial / Lot Lead Tempo Temp Pacing - [id number] Implanted:Qty: 1 on 09/20/2020 by Dimitri Maya MD [facility] [employer] [id number] 06/28/2021 [id number] / / [id number] documented as of this encounter Visit Diagnoses Diagnosis HTN, goal below 140/90 Unspecified essential hypertension documented in this encounter Advance Directives Latest [...] the patient have Health Care Power of Campus Executive Director? No Full Code 09/25/2020 6:44 PM 09/26/2020 [...] the patient have Health Care Power of Campus Executive Director? No Care Teams Stretcher Leveler Operator Relationship Specialty Start Date End Date Kalen Ribeiro MD [address] [place] [address] PCP - General 12/15/01 documented as of this encounter
--- OUTSIDE RECORDS SUMMARY | 2023-06-01 11:16 | External Medical Summary | Summary of Care ---
Author Name Unknown Organization [facility] Address [address] [place] [address] Phone [phone] Care Team Providers Care Video And Sound Recorder Name Role Phone Kalen Ribeiro MD Primary Care Provider [phone]- [phone] Reason for Visit * Reason Onset Date Comments Information 12/27/2022 Encounter Details Date Type Department Care Team Description 12/27/2022 Telephone Cardiology, [facility] [address] [facility] [place] [id number] Jeanie Mason, [address] [facility] [place] [address] Information Allergies Active Allergy Reactions Severity Noted Date [...] Atherosclerotic heart diseas e of [place] coronary artery with other forms of angina pectoris 07/14/2021 Age-related osteoporosis without current pathological fracture 07/14/2021 History of pulmonary embolism 06/08/2021 longterm current use of anticoagulant t herapy 02/09/2021 [...] 04/30/2005 12/26/2010 DIVERTICULOSIS OF COLON 10/04/2004 08/02/19 FAM HX-DIABETES MELLITUS 02/08/2003 017 HYPOTHYROIDISM NOS [...] encounter Miscellaneous Notes * Telephone Encounter - Magui Vega LPN - 12/27/2022 9:27 AM EDT Per Jeanie Mason, DO via tiger text - nurse visit today to assess. Spoke with pt by phone, agreeable to nurse visit. Is coming to clinic within the hour. * Telephone Encounter - Magui Vega LPN - 12/27/2022 9:25 AM EDT new device 12/05/22, this AM incision started "seeping" blood. Some dermabond still on site, no bruising per pt, not painful but sensitive to touch, no other drainage besides blood, no s/s infection. Pt is applying pressure but it is seeping. Reviewed med list w/pt, no blood thinners, taking aspirin 81mg documented in this encounter Plan of Treatment Upcoming Encounters Date Type Specialty Care Team Description 01/01/2023 Cardiac Studies Cardiology [facility] [address] [place] [address] 02/08/2023 Cardiac Studies [facility] [address] [facility] [address] 02/11/2023 Cardiac Studies Cardiac Studies 02/27/2023 Office Visit Cardiology Halley Preston CRNP [address] [place] [address] 02/28/2023 Office Visit Orthopedics Chava Huff [facility]-C [address] [facility] [address] 06/28/2023 [facility] [place] [address] Health Maintenance Due Date Last Done Comments Zoster Vaccines (2 of 3) 07/17/2007 05/22/2007 COVID-19 Vaccine ( season) 2022 12/26/2021, 02/14/2021, 06/09/2020, Additional history exists DXA Scan 02/14/2023 02/14/2021, 06/10, 07/21/2014, Additional history exists GFR 05/21/2023 11/20/2022, 05/11, 12/11/2021, Additional history exists Albumin/Creatinine Ratio 06/09/2023 06/08/2022, 05/11 CKD PHOS USE SMARTSET 22872 06/09/202305/11, 12/16/2020, 09/26/2020, Additional history exists Depression Screening 06/13/2023 06/12/2022 CKD HGB USE SMARTSET 93642 11/21/202311/20, 06/08/2022, 06/08/2022, Additional history exists TSH 12/26/2023 12/25/2022, 05/11, 12/11/2021, Additional history exists DTaP,Tdap,and Td Vaccines (2 - Td or Tdap) 08/14/2024 08/14/2014, 01/25/2000 Pneumococcal Vaccine: 65+ Years Completed 01/06/2015, 08/19/2007 VITAMIN D LEVEL ONCE IN A LIFETIME-USE SMARTSET# [id number] Completed 12/11/2018, 07/07/2018, 10/06/2010 Influenza Vaccine (FLU [...] this encounter Medical Devices Implanted Type Area Hypertrichologist Device Identifier Shelf Expiration Date Model / Serial / Lot Lead Tempo Temp Pacing - [id number] Implanted:Qty: 1 on 09/20/2020 by Dimitri Maya MD [facility] [employer] [id number] 06/28/2021 [id number] / / [id number] documented as of this encounter Advance Directives [...] the patient have Health Care Power of Foundation Assistant? No Full Code 09/25/2020 6:44 PM [...] the patient have Health Care Power of Foundation Assistant? No Care Teams Video And Sound Recorder Relationship Specialty Start Date End Date Kalen Ribeiro MD [address] [place] [address] PCP - General 12/15/01 documented as of this encounter
--- OUTSIDE RECORDS SUMMARY | 2023-06-01 11:16 | External Medical Summary ---
Author Name Unknown Address Unknown Organization K01:[facility] [place] - [facility] [address] [facility] [address] [place] [address] Laboratory Report Ordering Provider Test Date Status GEETHA ARRIAGA 03/06/2023 09:15:57 Final Observation Date Value Abnormality Reference (Units ) Status BUN 03/06/2023 09:15:57 27 Above high normal 6-20 (mg/dL) Final Creatinine 03/06/2023 09:15:57 1.0 0.5-1.0 (mg/dL) Final Glomerular filtration rate/1.73 sq M.predicted [Volume Rate/Area] in Serum, Plasma or Blood by Creatinine-based formula (CKD-EPI) 03/06/2023 09:15:57 61 >=60 (mL/min) Final eGFR is calculated based on the CKD-EPI 2020 equation SODIUM 03/06/2023 09:15:57 141 135-146 (m mol/L) Final Potassium 03/06/2023 09:15:57 4.2 3.5-5.1 (m mol/L) Final Cl 03/06/2023 09:15:57 102 98-107 (mm ol/L) Final CO2 03/06/2023 09:15:57 28 22-32 (mmo l/L) Final Anion gap 03/06/2023 09:15:57 11 7-15 (mmol /L) Final Glucose 03/06/2023 09:15:57 93 70-120 (mg /dL) Final Calcium 03/06/2023 09:15:57 9.7 8.4-10.2 ( mg/dL) Final Performing Location [facility] [place] - [address] [place] [address]
--- OUTSIDE RECORDS SUMMARY | 2023-06-01 11:16 | External Medical Summary ---
Author Name Unknown Address Unknown Organization K1F:[facility]ATORY [facility] - [address] [place] [address] Laboratory Report Ordering Provider Test Date Status WILLIAM BULL 03/18/2023 11:01:53 Final Observation Date Value Abnormality Reference (Units ) Status BUN 03/18/2023 11:01:53 14 6-20 (mg/dL) Final Creatinine 03/18/2023 11:01:53 0.8 0.5-1.0 (mg/dL) Final Glomerular filtration rate/1.73 sq M.predicted [Volume Rate/Area] in Serum, Plasma or Blood by Creatinine-based formula (CKD-EPI) 03/18/2023 11:01:53 71 >=60 (mL/min) Final eGFR is calculated based on the CKD-EPI 2020 equation SODIUM 03/18/2023 11:01:53 140 135-146 (m mol/L) Final Potassium 03/18/2023 11:01:53 4.2 3.5-5.1 (m mol/L) Final Cl 03/18/2023 11:01:53 102 98-107 (mm ol/L) Final CO2 03/18/2023 11:01:53 24 22-32 (mmo l/L) Final Anion gap 03/18/2023 11:01:53 14 7-15 (mmol /L) Final Glucose 03/18/2023 11:01:53 112 70-120 (mg /dL) Final Calcium 03/18/2023 11:01:53 9.7 8.4-10.2 ( mg/dL) Final Performing Location [facility] [address] [facility] [place] [address]
--- OUTSIDE RECORDS SUMMARY | 2023-06-01 11:16 | External Medical Summary | Summary of Care ---
Author Name Unknown Organization [facility] Address [address] [place] [address] Phone [phone] Care Team Providers Care Membership Assistant Name Role Phone Kalen Ribeiro MD Primary Care Provider [phone]- [phone] Reason for Visit * Reason Comments Follow Up Encounter Details Date Type Department Care Team ([facility] st Contact Info) Description 02/27/2023 10:30 AM EST Office Visit Cardiology, [facility] [address] [place] [address] Halley Preston CRNP [address] [facility] [place] [address] HTN, goal below 140/90* Allergies Active Allergy Reactions Criticality Noted Date Comments Heparin 10/07/2020 Concern for HIT documented as of this encounter (statuses as of 02/27/2023) Medications Medication Sig Dispensed Refills Start Date [...] as of this encounter (statuses as of 02/27/2023) Active Problems Problem Noted Date Diagnosed Date Cardiac pacemaker in situ 12/05/2022 Chronic kidney disease, stage 3a 07/16/2022 Overview: Per CKD protocol 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 06/18/2022 Overview: Per CKD protocol Paroxysmal atrial fibrillation 03/29/2022 HIT (heparin-induced thrombocytopenia) 3 Atherosclerosis of aorta 07/14/2021 Atherosclerotic heart diseas e of [place] coronary artery with other forms of angina [...] as of this encounter (statuses as of 02/27/2023) Resolved Problems Problem Noted Date Diagnosed Date [...] as of this encounter (statuses as of 02/27/2023) Immunizations Name Administration Dates Next Due COVID-19 [...] Sign Reading Time Taken Comments Blood Pressure 150/90 02/27/2023 10:27 AM EST Pulse 84 02/27/2023 10:06 AM EST Temperature - - Respiratory Rate 16 02/27/2023 10:06 AM EST Oxygen Saturation - - Inhaled Oxygen Concentration - - Weight 52.4 kg (115 lb 8 oz) 02/27/2023 10:06 AM EST Height - - Body Mass Index 24.35 03/29/2022 7:30 AM EST documented in this encounter Functional [...] as of this encounter Progress Notes * Halley Preston CRNP - 02/27/2023 10:30 AM EST Cardiology Outpatient Visit 02/27/2023 Primary [place] [employer] Operator Dr. Rosales Cardiac problems Severe , s/p TAVR 09/20/2020 with #23 S3 Ultra required transvenous pacer wire due to new BBB 09/25/20- readmitted due to pericarditis, small circumferential pericardial effusion noted on echo 10/01/20, diagnosed atrial fibrillation/RVR and thrombocytopenia- positive for heparin induced thrombocytopenia, started on Eliquis 10/09/2020, CT angiogram of the chest showed moderate bilateral pulmonary emboli with RV strain, moderate to large pleural effusions, moderate pericardial effusion Status post thoracentesis 10/13/2020 at [facility] Normal coronary arteries per cardiac catheterization at [facility] 07/28/2020, 10% tapering of the ostialcircumflex and 10% taper of ostial D2, 10% proximal LAD otherwise cardiac catheterization was unremarkable. History of large gluteal hematoma, 06/2021- Eliquis subsequently discontinued No further atrial fibrillation seen on Zio monitor 07/2021 SSS s/p dual chamber (LB lead) ppm 12/05/2022 ([employer] ariana XT DR MRI [id number]) Mild MR Hypertension Hyperlipidemia Hypothyroidism History of temporal arteritis HPI Markedly complex 80 year old female presenting to the cardiology office today in routine follow up.Past medical history as stated above under problem list. Last evaluated by the undersigned approximately 6 months ago. At her last appointment she had concerns regarding lightheadedness EKG showed sinus bradycardia with a first-degree AV block. Heart rates were in the mid 40s. Metoprolol tartrate was discontinued. Heart rates remained low and a Zio monitor was placed revealed SB with rates in the low 50s. She was referred to electrophysiology and was evaluated by Dr. Mason. Patient ultimately underwent permanent pacemaker implantation for SSS on 12/05/2022. Most recent device interrogation dated 02/08/2023 showed a left bundle pacing burden of 100%. No mode switches/atrial fibrillation. Most recent echocardiogram dated 02/2023 showed preserved LV systolic function and stable TAVR gradients. Today the patient presents feeling well and offers no acute concerns. Remains active. Known functional decline over the last 6 months. No chest pain, shortness of breath, palpitations, dizziness, syncope or near syncope. No orthopnea, PND, or increased lower extremity edema. No fever, chills, cough, hematochezia, melena, or hemoptysis. She states she is compliant with all medications and offers no side effects. Blood pressure initially was 154/94, on repeat 150/90. She has not currently on any antihypertensives but previously took lisinopril. Current Outpatient Medications Medication Sig Dispense Refill [...] No current facility-administered medications for this visit. Past Medical History: Diagnosis Date Closed fracture [...] performed by Andrew Dudley MD at ENDOSCOPY [facility] COLONOSCOPY, DIAGNOSTIC (RECTUM) 06/20/2017 adenomatous polyp, diverticulosis/COLONOSCOPY FLEXIBLE PROXIMAL DIAGNOSTIC performed by Andrew Dudley MD at ENDOSCOPY [facility] DEXA SCAN/BONE MINERAL AXIAL 2006 osteoporosis, repeat 2 years DILATION AND CURETTAGE (D&C) 1979' unsure why ECHO (2-D COMPLETE) 10/12 Mild LVH, aortic scler - no stenosis FRACTURE NOS 10/12 L Tibial Plateau ORIF LIGATE/CUT OVIDUCT(S) LIGATION/BIOPSY OF TEMPORAL ARTERY Left 06/18/2016 06/18/2016 left temportal artery bx dx benign - [facility] Dr. Garcia LUMBAR / SACRAL EPIDURAL, SINGLE LEVEL 10/04/2015 INJECTION TRANSFORAMINAL EPIDURAL LUMBAR OR SACRAL performed by David Costello, at OR [facility] LUMBAR / SACRAL EPIDURAL, SINGLE LEVEL 10/25/2015 INJECTION TRANSFORAMINAL EPIDURAL LUMBAR OR SACRAL performed by David Costello DO at OR [facility] MISCELLANEOUS ORDER ([facility] ONLY) 12/15 excision lipoma forehead REPLACE AORTIC VALVE, PERCUTANEOUS FEMORAL N/A 09/20/2020 REPLACE AORTIC VALVE, PERCUTANEOUS FEMORAL performed by Dimitri Maya MD at [facility] REPLACE AORTIC VALVE, PERCUTANEOUS FEMORAL N/A 09/20/2020 REPLACE AORTIC VALVE, PERCUTANEOUS FEMORAL performed by Alexys Almazan MD, PhD at [facility] TOTAL ABD HYSTERECTOMY W/WO REMOVAL OF TUBE(S) 2007 SHARIF w/ Bilateral Salpingo-Oophorectomy Social History Tobacco Use Smoking status: Never Passive exposure: Past Smokeless tobacco: Never Vaping Use Vaping Use: Never used Substance Use Topics Alcohol use: No Drug use: Never Review of patient's allergies indicates: Allergen Reactions Heparin Concern for HIT Review of Systems: See HPI for pertinent positives. All others negative, other than those noted in HPI. Physical Exam BP 150/90 | Pulse 84 | Resp 16 | Wt 52.4 kg (115 lb 8 oz) | BMI 24.35 kg/m | BSA 1.46 m General: No acute distress. A+Ox3. HEENT: Normocephalic. Atraumatic. PERRL. EOMI. Conjunctiva and sclera clear. NECK: No carotid bruits. No JVD. Carotid upstrokes are brisk. Heart: RRR. S1 and S2 noted without murmur, rubs, gallops. PMI non displaced. Lungs: Clear to auscultation. No wheezes, rhonchi, rales. Abdomen: Normal bowel sounds. Soft. Nontender. No masses or organomegaly. No abdominal bruits. Extremities: No edema. No clubbing or cyanosis. Pulses: radial=2/4, posterior tibial=2/4, dorsalis pedis = 2/4. NEURO: No focal deficits. PSYCH: Normal. Lab data/imaging study review: Echo 02/2023 The qualitative LV ejection fraction is 65-69% (normal). The patient is status post TAVR with Bg type prosthetic valve. The aortic valve prosthesis systolic gradients are normal for this type prosthesis. Trivial paravalvular aortic valve prosthesis regurgitation is present. Mild mitral regurgitation is present. Mild tricuspid regurgitation is present. There is no evidence of pulmonary hypertension. Compared to last available study changes are noted as follows: Trivial paravalvular TAVR regurgitation now present. Echo 12/2021 The examination is adequate to evaluate the referral indication. The left ventricular cavity size is normal. The LV wall thickness is normal. The left ventricular wall motion is normal. The qualitative LV ejection fraction is 65-69% (normal). The left ventricular diastolic function is mildly abnormal (grade I). The left atrium is mildly enlarged. The patient is status post TAVR with Bg type prosthetic valve. The aortic valve prosthesis systolic gradients are normal for this type prosthesis. Significant aortic valve prosthesis regurgitation is absent. Mild mitral regurgitation is present. The aortic root size is relatively small. Ascending aorta is normal in size Echo 12/20/2021 The examination is adequate to evaluate the referral indication. The left ventricular cavity size is normal. The LV wall thickness is normal. The left ventricular wall motion is normal. The qualitative LV ejection fraction is 65-69% (normal). The left ventricular diastolic function is mildly abnormal (grade I). The left atrium is mildly enlarged. The patient is status post TAVR with Bg type prosthetic valve. The aortic valve prosthesis systolic gradients are normal for this type prosthesis. Significant aortic valve prosthesis regurgitation is absent. Mild mitral regurgitation is present. The aortic root size is relatively small. Ascending aorta is normal in size Echo 06/2021 The examination is adequate to evaluate the referral indication. The qualitative LV ejection fraction is 60-64% (normal). The LV wall thickness is mildly increased (concentric). The left ventricular wall motion is normal. The patient is status post TAVR with Bg type prosthetic valve. Significant aortic valve prosthesis regurgitation is absent. The aortic valve prosthesis systolic gradients are borderline elevated. Mild mitral regurgitation is present. Mild tricuspid regurgitation is present. Echocardiogram 10/21/2020 The examination is adequate to evaluate the referral indication. The LV wall thickness is mildly increased (concentric). The left ventricular wall motion is normal. The qualitative LV ejection fraction is >70% (hyperdynamic). The patient is status post TAVR with Bg type prosthetic valve. Significant aortic valve prosthesis regurgitation is absent. The aortic valve prosthesis systolic gradients are are borderline elevated and are indeterminate for obstruction. Mild tricuspid regurgitation is present. No pericardial effusion is noted. There is a large left pleural effusion. There is a small right pleural effusion. Compared to the previous postprocedure study performed 09/21/2020, peak velocity at that time was 2.6 m/sec, mean gradient of 8 mmHg, as compared to 3.5 meters/second, mean gradient 24 millimeter Hg the present study. Compared to the previous study dated 10/14/2020, the pleural effusions are relatively stable without significant interval change. Limited TTE 10/14/20 A focused, goal directed study was performed per provider request. Limited relevant views were therefore obtained. Sinus rhythm in the 60s was present during the echocardiogram study. The qualitative LV ejection fraction is 65-69% (normal). The right ventricular chamber size and systolic function are normal. No pericardial effusion is noted. The the aortic valve gradients are normal for this prosthesis, with peak CW velocity of 2.6 meters/second, mean gradient 15.2 millimeters Hg. There is no significant paravalvular regurgitation on limited assessment. There is a small to moderate right pleural effusion. There is suggestion of ongoing left pleural effusion, however interval improvement is noted compared to the prior study performed 10/12/2020. Limited TTE 10/12/20 A focused, goal directed study, was performed per provider request follow-up of recent pericardial and pleural effusions. There is a trivial circumferential pericardial effusion. A large left plerual effusion is present. A large right plerual effusion is present. There is no evidence of tamponade or restrictive physiology. Compared to the images performed at the time of the prior study on 10/09/2020, there has been an interval improvement in the pericardial effusion. There has been interval increase in the size of the left pleural effusion, with noted increase in size, and noted findings of entrapped as visualized on the apical 4 chamber view. The qualitative LV ejection fraction is 65-69% (normal). TTE 10/09/2020 The examination is adequate to evaluate the referral indication. The qualitative LV ejection fraction is 60-64% (normal). No LV segmental wall motion abnormalities. The right ventricular cavity size is normal (basal dimension < 4.2 cm RV apical 4 chamber view). The right ventricular systolic function is mildly reduced. The patient is status post TAVR with Bg type prosthetic valve. The prosthetic aortic valve peak velocity and mean pressure gradient are slightly elevated comparedto previous study on 09/26/20. Aortic valve acceleration time <100 ms suggests against significant obstruction. Significant aortic valve prosthesis regurgitation is absent. Moderate tricuspid regurgitation is present. A small to moderate-sized circumferential pericardial effusion is noted. Cardiac tamponade is absent. Normal IVC size and collapsability with sniff indicates a normal right atrial pressure of 3 mmHg. A large left plerual effusion is present. A large right plerual effusion is present. Coronary Anatomy per cardiac catheterization 07/28/2020 at [facility] with Dr. Weiss Dominant: Right Left Main (% Stenosis): Normal LAD (% Stenosis): Proximal (10%) D1 (% Stenosis): Normal D2 (% Stenosis): Ostial (10% taper) Circumflex (% Stenosis): Ostial (10% taper) RCA (% Stenosis): Normal R PDA (% Stenosis): Normal R PL1 (% Stenosis): Normal R PL2 (% Stenosis): Normal AM (% Stenosis): Normal Diagnostic Impression/Plan: 1. S/P TAVR (transcatheter aortic valve replacement) -History of severe aortic stenosis status post TAVR. Postop course complicated by pleural effusion/pericarditis as well as pulmonary embolism resulting in atrial an episode of paroxysmal atrial fib. -Recent echocardiogram showing stable gradients, 12/2021. NYHA class 1. 1. Antibiotics are needed for all dental work: Amoxicillin 2g- Take 4 capsules 1 hour prior to any dental work 2. Continue ASA 81 mg daily 3. Euvolemic on exam. Weight is stable. Continue Lasix 20 mg daily. 4. Plan on repeating an echocardiogram in December 2022 to reassess valve gradients. 2. Paroxysmal atrial fibrillation (HCC) 3. Sinus bradycardia -History of paroxysmal atrial fibrillation after a complicated postop TAVR course as described above. -Patient developed a significant right lower extremity hematoma and risk of continuation of Eliquisoutweighed the benefit. Eliquis discontinued on 07/24. Please see Dr. Rosales's note dated 07/24/2021 for full explanation. -No AFib seen on Zio, 07/2021 1. Bradycardic rates over the last few months, patient primarily asymptomatic- discontinue metoprolol tartrate. Patient to come back in 1 month for nurse blood pressure check an EKG. Heart rates remain bradycardic will complete a 3 day Zio. 4. HTN, goal below 140/90 Elevated today in office- asymptomatic. 1. Restart low dose lisinopril 2.5 mg daily-- BMP in 1 week. Nurse BP check at PCP office in 1 month. 5. Dyslipidemia, goal LDL below 100 Controlled. LDL 84. 1. Continue atorvastatin 20 mg daily The patient agrees to the above plan and will call with additional questions or concerns. ER with all emergencies advised. Follow-up: Return in about 6 months (around 08/29/2023). | Check-out note: 1 month nurse BP check with PCP office in [place]. Can ppm check and echo be done same day 02/2024? I spent a total of 30 minutes on the date of service in preparation, delivery, and documentation ofthe care provided to Marie Nieves excluding any time spent in the performance of separately billedservices. QUINCY Swain [facility], Department of Cardiology This chart was completed in part utilizing [employer] Speech Voice Recognition Software. Grammatical errors, random word insertions, prounoun errors, and incomplete sentences are an occasional consequence of this system due to software limitations, ambient noise, and hardware issues. Any formal questions or concerns about the content, text, or information contained within the body of this dictation should be directly addressed to the provider for clarification. documented in this encounter Nursing Notes * Oriana Rios CMA - 02/27/2023 10:03 AM EST Examination Room: 4 Name: Marie Nieves Date of : (1940). Reason for Visit: 6M f/u, echo 02/11 Interim Hospitalization(s): none Problems/Concerns: denies Chest Pain/SOB: denies [facility] Discussed: No [facility] is a way you can talk to your provider online through e-mail. Would you like to sign up? I can activate it for you? DECLINES Patient was instructed to not get up on the exam table until directed and assisted by their provider; patient is to remain seated in the chair/ wheelchair/ exam table for fall prevention and safety reasons. Patient is aware to have assistance to step down off exam table with personnel. Patient voiced full comprehension of instructions. documented in this encounter Plan of Treatment Upcoming Encounters Date Type Department Care Team (Late st Contact Info) Description 04/01/2023 9:30 AM EST Nurse Only [facility]illary Department, [place] [address] [facility] [address] [facility] [address] [facility] [address] 04/18/2023 11:00 AM EST Office Visit Orthopaedics [facility] [address] [address] Chvaa Huff PA-C [address] [place] [address] 06/28/2023 8:00 AM EDT Office Visit [facility], [place] [address] [facility] [phone] Kalen Ribeiro [facility] [address] [facility] [address] 09/02/2023 9:00 AM EDT Office Visit Cardiology, [facility] [address] [facility] [place] [address] Halley Preston CRNP [address] [place] [address] 02/10/2024 10:00 AM EST Cardiac Studies Cardiology, [facility] [address] [facility] [place] [address] [place], [facility] [address] [facility] [place] [address] 02/13/2024 8:15 AM EST Cardiac Studies Cardiac Studies, [facility] [place] [address] Scheduled Orders Name Type Priority Associated Diagnoses Orde r Schedule BASIC METABOLIC PANEL Lab Routine HTN, goal below 140/90 Expected: 03/06/2023, Expires: 02/28/2024 Health Maintenance Due Date Last Done Comments Zoster Vaccines (2 of 3) 07/17/2007 05/22/2007 COVID-19 Vaccine ( season) 2022 12/26/2021, 02/14/2021, 06/09/2020, Additional history exists DXA Scan 02/14/2023 02/14/2021, 06/10, 07/21/2014, Additional history exists GFR 05/21/2023 11/20/2022, 05/11, 12/11/2021, Additional history exists Albumin/Creatinine Ratio 06/09/2023 06/08/2022, 05/11 CKD PHOS USE SMARTSET 31007 06/09/202305/11, 12/16/2020, 09/26/2020, Additional history exists Depression Screening 06/13/2023 06/12/2022 CKD HGB USE SMARTSET 54039 11/21/202311/20, 06/08/2022, 06/08/2022, Additional history exists TSH 12/26/2023 12/25/2022, 05/11, 12/11/2021, Additional history exists DTaP,Tdap,and Td Vaccines (2 - Td or Tdap) 08/14/2024 08/14/2014, 01/25/2000 Pneumococcal Vaccine: 65+ Years Completed 01/06/2015, 08/19/2007 VITAMIN D LEVEL ONCE IN A LIFETIME-USE SMARTSET# [id number] Completed 12/11/2018, 07/07/2018, 10/06/2010 Influenza Vaccine (FLU [...] this encounter Medical Devices Implanted Type Area Vp Care Management Device Identifier Shelf Expiration Date Model / Serial / Lot Lead Tempo Temp Pacing - [id number] Implanted:Qty: 1 on 09/20/2020 by Dimitri Maya MD at [facility] Dragonfly [id number] 06/28/2021 [id number] / / [id number] documented as of this encounter Visit Diagnoses Diagnosis HTN, goal below 140/90- Primary Unspecified essential hypertension documented in this encounter [...] the patient have Health Care Power of Vp Software Support? No Full Code 09/25/2020 6:44 PM 09/26/2020 [...] the patient have Health Care Power of Vp Software Support? No Care Teams Membership Assistant Relationship Specialty Start Date End Date Kalen Ribeiro MD [address] [place] [address] PCP - General 12/15/01 documented as of this encounter"
--- OUTSIDE RECORDS SUMMARY | 2023-06-01 11:16 | External Medical Summary ---
Author Name Unknown Address Unknown Organization [id number]:[facility] - [address] [place] [address] Laboratory Report Ordering Provider Test Date Status WILLIAM BULL 03/18/2023 11:01:53 Final Observation Date Value Abnormality Reference (Units ) Status SYNC LEUKOCYTES IN BLOOD BY AUTOMATED COUNT 03/18/2023 11:01:53 11.99 Above high normal 4.00-10.80 (K/uL) Final Segs 03/18/2023 11:01:53 84.5 Above high normal 40.0-75.0 (%) Final Lymphs % 03/18/2023 11:01:53 7.1 Below low normal 18.0-42.0 (%) Final Monos 03/18/2023 11:01:53 6.1 1.0-11.0 (%) Final Eosinophils 03/18/2023 11:01:53 1.4 0.0-6.0 (%) Final Basos 03/18/2023 11:01:53 0.5 0.0-2.0 (%) Final Immature Granulocyte, Percent 03/18/2023 11:01:53 0.4 0.0-2.0 (%) Final Absolute Segs 03/18/2023 11:01:53 10.13 Above high normal 1.80-7.70 (K/uL) Final Lymphs, absolute 03/18/2023 11:01:53 0.85 Below low normal 1.00-4.80 (K/ul) Final Monos, Abs 03/18/2023 11:01:53 0.73 0.00-1.10 (K/uL) Final Eos, Abs 03/18/2023 11:01:53 0.17 0.00-0.70 (K/uL) Final Basos, Abs 03/18/2023 11:01:53 0.06 0.00-0.20 (K/uL) Final Immature Granulocytes, Number 03/18/2023 11:01:53 0.05 0.00-0.20 (K/uL) Final Performing Location [facility] - [facility] [place] [address]
--- OUTSIDE RECORDS SUMMARY | 2023-06-01 11:16 | External Medical Summary | Summary of Care ---
Author Name Unknown Organization [facility] Address [address] [place] [address] Phone [phone] Care Team Providers Care Kineseologist Name Role Phone Kalen Ribeiro MD Primary Care Provider +1- [phone] Reason for Visit * Reason Comments eRx-Medication Refill Encounter Details Date Type Department Care Team (Late st Contact Info) Description 01/03/2023 Refill Cardiology, [facility] [address] [place] [address] Jerod Rosales, DO [address] [place] [address] Dyslipidemia, goal LDL below 70 Allergies Active Allergy Reactions Criticality Noted Date Comments Heparin 10/07/2020 Concern for HIT documented as of this encounter (statuses as of 01/03/2023) Medications Medication Sig Dispensed Refills Start Date [...] 10/05/2020 Active Amoxicillin 500 MG Oral Capsule (Amoxil)Indicatio [...] ONCE DAILY 90 Tablet 3 01/03/2023 Active Atorvastatin Calcium 20 MG Oral Tablet (Lipitor)Indicati ons:Dyslipidemia, goal LDL below 70 TAKE ONE TABLET BY MOUTH DAILY. 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 06/18/2022 Overview: Per CKD protocol Paroxysmal atrial fibrillation 03/29/2022 HIT (heparin-induced thrombocytopenia) 3 Atherosclerosis of aorta 07/14/2021 Atherosclerotic heart diseas e of [place] coronary artery with other forms of angina [...] as of this encounter (statuses as of 01/03/2023) Resolved Problems Problem Noted Date Diagnosed Date [...] as of this encounter (statuses as of 01/03/2023) Immunizations Name Administration Dates Next Due COVID-19 [...] encounter Miscellaneous Notes * Telephone Encounter - QUINCY Silva - 01/03/2023 12:38 PM EDT Signed Prescriptions: Disp Refills Atorvastatin Calcium 20 MG Oral Tablet (Li*90 Tab*3 Sig: TAKE 1 TABLET BY MOUTH ONCE DAILY Authorizing Provider: CORINA INIGUEZ * Telephone Encounter - ZURDO Chandler - 01/03/2023 12:18 PM EDTPending Prescriptions: Disp Refills Atorvastatin Calcium 20 MG Oral Tablet (Li*90 Tab*3 Sig: TAKE 1 TABLET BY MOUTH ONCE DAILY * Telephone Encounter - ZURDO Chandler - 01/03/2023 12:17 PM EDT Did you pend patient's preferred pharmacy and medication before forwarding?yes Pharmacy: [id number] Pending Prescriptions: Disp Refills Atorvastatin Calcium 20 MG Oral Tablet (L*90 Tab*3 Sig: TAKE 1 TABLET BY MOUTH ONCE DAILY Last Visit: 11/20/2022 (in office), Visit date not found (telemedicine) Next Visit: 02/08/2023 If no future appointments scheduled, and last appointment is greater than a year ago, please schedule patient for a follow-up appointment Last date the medication was ordered: 10-13-2021 Is this request for a controlled substance?No Urine Drug Screen:No results found for this or any previous visit. Patient Phone Numbers Labs: Lab Results Component Value Date/Time CREAT 0.8 11/20/2022 12:49 PM CREAT 0.9 08/19/2020 01:18 PM CREAT 0.9 12/07/2019 07:52 AM POTASSIUM 4.4 11/20/2022 12:49 PM POTASSIUM 4.7 12/07/2019 07:52 AM TSH 2.31 12/25/2022 08:42 AM TSH 1.05 12/07/2019 07:52 AM TSH 6.65 (H) 12/05/1995 09:25 AM LDLCALC 92 06/08/2021 08:45 AM LDLCALC 69 12/07/2019 07:52 AM LDLDIRECT 84 06/08/2022 07:44 AM LDLDIRECT NOT APPLICABLE 12/07/2019 07:52 AM ALT 12 06/08/2022 07:44 AM ALT 15 12/07/2019 07:52 AM HGBA1C 5.6 09/26/2020 04:39 AM HGBA1C 6.1 (H) 07/07/2018 08:00 AM documented in this encounter Plan of Treatment Upcoming Encounters Date Type Department Care Team (Late st Contact Info) Description 02/08/2023 10:15 AM EST Cardiac Studies Cardiology, [facility] [address] [facility] [place] [address] [facility] [address] [facility] [place] [address] 02/11/2023 8:15 AM EST Cardiac Studies Cardiac Studies, [facility] [address] [facility] [place] [address] 02/27/2023 10:30 AM EST Office Visit Cardiology, [facility] [address] [facility] [place] [address] Corina Iniguez CRNP [address] [place] [address] 02/28/2023 9:00 AM EST Office Visit Orthopaedics [facility] [address] [facility] [place] [address] Chava Huff PA-C [address] [place] [address] 06/28/2023 8:00 AM EDT [address] [address] Kalen Ribeiro MD [address] [place] [address] Health Maintenance Due Date Last Done Comments Zoster Vaccines (2 of 3) 07/17/2007 05/22/2007 COVID-19 Vaccine (2022-24 season) 2022 12/26/2021, 02/14/2021, 06/09/2020, Additional history exists DXA Scan 02/14/2023 02/14/2021, 06/10, 07/21/2014, Additional history exists GFR 05/21/2023 11/20/2022, 05/11, 12/11/2021, Additional history exists Albumin/Creatinine Ratio 06/09/2023 06/08/2022, 05/11 CKD PHOS USE SMARTSET 74116 06/09/202305/11, 12/16/2020, 09/26/2020, Additional history exists Depression Screening 06/13/2023 06/12/2022 CKD HGB USE SMARTSET 57038 11/21/202311/20, 06/08/2022, 06/08/2022, Additional history exists TSH 12/26/2023 12/25/2022, 05/11, 12/11/2021, Additional history exists DTaP,Tdap,and Td Vaccines (2 - Td or Tdap) 08/14/2024 08/14/2014, 01/25/2000 Pneumococcal Vaccine: 65+ Years Completed 01/06/2015, 08/19/2007 VITAMIN D LEVEL ONCE IN A LIFETIME-USE SMARTSET# [id number] Completed 12/11/2018, 07/07/2018, 10/06/2010 Influenza Vaccine (FLU [...] this encounter Medical Devices Implanted Type Area Lock Corner Machine Operator Device Identifier Shelf Expiration Date Model / Serial / Lot Lead Tempo Temp Pacing - [id number] Implanted:Qty: 1 on 09/20/2020 by Dimitri Maya MD at [facility] [place] [employer] [id number] 06/28/2021 [id number] / / [id number] documented as of this encounter Visit Diagnoses Diagnosis Dyslipidemia, goal LDL below 70 Other and unspecified hyperlipidemia documented in this [...] the patient have Health Care Power of Shredding Machine Knife Changer? No Full Code 09/25/2020 6:44 PM 09/26/2020 [...] the patient have Health Care Power of Shredding Machine Knife Changer? No Care Teams Kineseologist Relationship Specialty Start Date End Date Kalen Ribeiro MD [address] [place] [address] PCP - General 12/15/01 documented as of this encounter
--- OUTSIDE RECORDS SUMMARY | 2023-06-01 11:16 | External Medical Summary | Summary of Care ---
Author Name Unknown Organization [facility] Address [address] [place] [address] Phone [phone] Care Team Providers Care Code Enforcement Inspector Name Role Phone Kalen Ribeiro MD Primary Care Provider [phone]- [phone] Reason for Referral * Precert (Within 10 days (routine)) - Authorized Specialty Diagnoses / Procedures Referred By Nithin t Referred To Contact Cardiac Studies Diagnoses S/P TAVR (transcatheter aortic valve replacement) Procedures ECHO, COMPLETE (2D), TRANS-THORACIC Halley Preston CRNP [address] [email or web address] [address] Referral ID Status Reason Start Date Expiration Date V isits Requested Visits Authorized [id number] Authorized Precert 02/13/2024 999 999 Reason for Visit * Reason Onset Date Comments Test Results 02/12/2023 Encounter Details Date Type Department Care Team (Late st Contact Info) Description 02/12/2023 Telephone Cardiology, [facility] [address] [place] [address] Halley Preston CRNP [address] [employer] [facility] [place] [address] Test Results Allergies Active Allergy Reactions Criticality Noted Date Comments Heparin 10/07/2020 Concern for HIT documented as of this encounter (statuses as of 02/12/2023) Medications Medication Sig Dispensed Refills Start Date [...] as of this encounter (statuses as of 02/12/2023) Active Problems Problem Noted Date Diagnosed Date Cardiac pacemaker in situ 12/05/2022 Chronic kidney disease, stage 3a 07/16/2022 Overview: Per CKD protocol 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 06/18/2022 Overview: Per CKD protocol Paroxysmal atrial fibrillation 03/29/2022 HIT (heparin-induced thrombocytopenia) 3 Atherosclerosis of aorta 07/14/2021 Atherosclerotic heart diseas e of [place] coronary artery with other forms of angina pectoris 07/14/2021 Age-related osteoporosis wit hout current pathological fracture 07/14/2021 History of pulmonary embolism 06/08/2021 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 Trivial paravalvular aortic valve prosthesis regurgitation noted. Mild MR and TR. No pulmonary hypertension. Recommend repeat echocardiogram in 1 year to reassess TAVR regurgitation. Overall everything looks good. No changes needed. Will discuss recommendations at follow-up. documented in this encounter Plan of Treatment Upcoming Encounters Date Type Department Care Team (Late st Contact Info) Description 02/27/2023 10:30 AM EST Office Visit Cardiology, [facility] [address] [place] [address] Halley Preston CRNP [address] [place] [address] 02/28/2023 9:00 AM EST Office Visit Orthopaedics [facility] [address] [place] [address] Chava Huff PA-C [address] [place] [address] 06/28/2023 8:00 AM EDT [facility] [address] [facility] [phone] Kalen Ribeiro [facility] [address] [facility] [address] 02/10/2024 10:00 AM EST Cardiac Studies Cardiology, [facility] [address] [place] [address] [place], Pacer Clinic [facility] [address] [place] [address] 02/13/2024 8:15 AM EST Cardiac Studies Cardiac Studies, [facility] [address] [place] [address] Scheduled Orders Name Type Priority Associated Diagnoses Orde r Schedule ECHO, COMPLETE (2D), TRANS-THORACIC Echocardiology Routine S/P TAVR (transcatheter aortic valve replacement) Expected: 02/13/2024 (Approximate), Expires: 08/13/2024 Health Maintenance Due Date Last Done Comments Zoster Vaccines (2 of 3) 07/17/2007 05/22/2007 COVID-19 Vaccine ( season) 2022 12/26/2021, 02/14/2021, 06/09/2020, Additional history exists DXA Scan 02/14/2023 02/14/2021, 06/10, 07/21/2014, Additional history exists GFR 05/21/2023 11/20/2022, 05/11, 12/11/2021, Additional history exists Albumin/Creatinine Ratio 06/09/2023 06/08/2022, 05/11 CKD PHOS USE SMARTSET 60098 06/09/202305/11, 12/16/2020, 09/26/2020, Additional history exists Depression Screening 06/13/2023 06/12/2022 CKD HGB USE SMARTSET 35286 11/21/202311/20, 06/08/2022, 06/08/2022, Additional history exists TSH 12/26/2023 12/25/2022, 05/11, 12/11/2021, Additional history exists DTaP,Tdap,and Td Vaccines (2 - Td or Tdap) 08/14/2024 08/14/2014, 01/25/2000 Pneumococcal Vaccine: 65+ Years Completed 01/06/2015, 08/19/2007 VITAMIN D LEVEL ONCE IN A LIFETIME-USE SMARTSET# [id number] Completed 12/11/2018, 07/07/2018, 10/06/2010 Influenza Vaccine (FLU [...] this encounter Medical Devices Implanted Type Area Land Surveyor Manager Device Identifier Shelf Expiration Date Model / Serial / Lot Lead Tempo Temp Pacing - [id number] Implanted:Qty: 1 on 09/20/2020 by Dimitri Maya [place] [facility] [place] [employer] [id number] 06/28/2021 [id number] / / [id number] documented as of this encounter Visit Diagnoses Diagnosis S/P TAVR (transcatheter aortic valve replacement)- Primary Heart valve replaced by other means SSS (sick sinus syndrome) (HCC) Sinoatrial node [...] the patient have Health Care Power of Threading Machine Operator? No Full Code 09/25/2020 6:44 [...] the patient have Health Care Power of Threading Machine Operator? No Care Teams Code Enforcement Inspector Relationship Specialty Start Date End Date Oesterling, Kalen R, MD [address] [facility] [place] [id number] PCP - General 12/15/01 documented as of this encounter
--- OUTSIDE RECORDS SUMMARY | 2023-06-01 11:16 | External Medical Summary | Summary of Care ---
Author Name Unknown Organization [facility] Address [address] [place] [address] Phone [phone] Care Team Providers Care Hawk Missile System Crewmember Name Role Phone Kalen Ribeiro MD Primary Care Provider +1- [phone] Encounter Details Date Type Department Care Team (Late st Contact Info) Description 02/21/2023 Result Scan Unspecified Department Jerod Rosales, DO [address] [place] [address] <No scans attached> Allergies Active Allergy Reactions Criticality Noted Date Comments Heparin 10/07/2020 Concern for HIT documented as of this encounter (statuses as of 02/21/2023) Medications Medication Sig Dispensed Refills Start Date [...] as of this encounter (statuses as of 02/21/2023) Active Problems Problem Noted Date Diagnosed Date Cardiac pacemaker in situ 12/05/2022 Chronic kidney disease, stage 3a 07/16/2022 Overview: Per CKD protocol 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 06/18/2022 Overview: Per CKD protocol Paroxysmal atrial fibrillation 03/29/2022 HIT (heparin-induced thrombocytopenia) 3 Atherosclerosis of aorta 07/14/2021 Atherosclerotic heart diseas e of [place] coronary artery with other forms of angina pectoris 07/14/2021 Age-related osteoporosis wit hout current pathological fracture 07/14/2021 History of pulmonary embolism 06/08/2021 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 1 [...] as of this encounter (statuses as of 02/21/2023) Resolved Problems Problem Noted Date Diagnosed Date [...] as of this encounter (statuses as of 02/21/2023) Immunizations Name Administration Dates Next Due COVID-19 [...] 02/27/2023 10:30 AM EST Office Visit Cardiology, [facility] [address] [place] [address] Halley Preston CRNP [address] [place] [address] 02/28/2023 9:00 AM EST Office Visit Orthopaedics [facility] [address] [place] [address] Chava Huff PA-C [address] [place] [address] 06/28/2023 8:00 AM EDT [address] [phone] Kalen Ribeiro MD [address] [facility] [place] [address] 02/10/2024 10:00 AM EST Cardiac Studies Cardiology, [facility] [address] [facility] [place] [address] [place], Pacer Clinic [facility] 132 [facility] [place] [address] 02/13/2024 8:15 AM EST Cardiac Studies Cardiac Studies, [facility] [address] [facility] [place] [address] Health Maintenance Due Date Last Done Comments Zoster Vaccines (2 of 3) 07/17/2007 05/22/2007 COVID-19 Vaccine ( season) 2022 12/26/2021, 02/14/2021, 06/09/2020, Additional history exists DXA Scan 02/14/2023 02/14/2021, 06/10, 07/21/2014, Additional history exists GFR 05/21/2023 11/20/2022, 05/11, 12/11/2021, Additional history exists Albumin/Creatinine Ratio 06/09/2023 06/08/2022, 05/11 CKD PHOS USE SMARTSET 13891 06/09/202305/11, 12/16/2020, 09/26/2020, Additional history exists Depression Screening 06/13/2023 06/12/2022 CKD HGB USE SMARTSET 11065 11/21/202311/20, 06/08/2022, 06/08/2022, Additional history exists TSH 12/26/2023 12/25/2022, 05/11, 12/11/2021, Additional history exists DTaP,Tdap,and Td Vaccines (2 - Td or Tdap) 08/14/2024 08/14/2014, 01/25/2000 Pneumococcal Vaccine: 65+ Years Completed 01/06/2015, 08/19/2007 VITAMIN D LEVEL ONCE IN A LIFETIME-USE SMARTSET# [id number] Completed 12/11/2018, 07/07/2018, 10/06/2010 Influenza Vaccine (FLU [...] this encounter Medical Devices Implanted Type Area Grader Meat Device Identifier Shelf Expiration Date Model / Serial / Lot Lead Tempo Temp Pacing - [id number] Implanted:Qty: 1 on 09/20/2020 by Dimitri Maya MD at [facility] [place] [employer] [id number] 06/28/2021 [id number] / / [id number] documented as of this encounter Procedures Procedure Name Priority Date/Time Associated Diagnosis Comments CARDIOLOGY SCANNED RESULT 02/21/2023 documented in this encounter Results * CARDIOLOGY SCANNED RESULT (02/21/2023) 02/21/2023 Jerod Rosales DO OTHER documented in this [...] the patient have Health Care Power of Plate And Frame Filter Operator? No Full Code 09/25/2020 6:44 PM [...] the patient have Health Care Power of Plate And Frame Filter Operator? No Care Teams Hawk Missile System Crewmember Relationship Specialty Start Date End Date Kalen Ribeiro MD [address] [place] [address] PCP - General 12/15/01 documented as of this encounter
--- OUTSIDE RECORDS SUMMARY | 2023-06-01 11:16 | External Medical Summary | Summary of Care ---
Author Name Unknown Organization [facility] Address [address] [place] [address] Phone [phone] Care Team Providers Care E Commerce Merchandising Coordinator Name Role Phone Kalen Ribeiro MD Primary Care Provider +1- [phone] Reason for Visit * Reason Onset Date Comments FYI 03/18/2023 Referred to Er Encounter Details Date Type Department Care Team (Late st Contact Info) Description 03/18/2023 Telephone [facility] [address] [place] [address] Kalen Ribeiro MD [address] [place] [address] FYI (Referred to Er) Allergies Active Allergy Reactions Criticality Noted Date [...] aorta 07/14/2021 Atherosclerotic heart diseas e of [place] coronary artery with other forms of angina pectoris 07/14/2021 Age-related osteoporosis wit hout current pathological fracture 07/14/2021 History of pulmonary embolism 06/08/2021 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 Patient was to see ENT today, but doctor called out. She isn't scheduled again with [facility] until Mar 25. Patient didn't think she could wait until the to be seen. Daughter reported she is so weak she can barely walk. I spoke to Dr. Villaseñor about patient. He reviewed record and recommended with her weakness, and not eating, it is better for her to be assessed at an ER. documented in this encounter Plan of Treatment Upcoming Encounters Date Type Department Care Team (Late st Contact Info) Description 03/25/2023 9:40 AM EST Office Visit Otolaryngology [facility] 132 [facility] [place] [address] Brandt Reyes PA-C [address] [facility] [place] [address] 03/26/2023 9:30 AM EST Nurse Only Ancillary Department, [place] [address] [facility] [address] [place], Nurse [address] [facility] [address] 04/18/2023 11:00 AM EST Office Visit Orthopaedics [facility] [address] [facility] [place] [address] Chava Huff PA-C [address] [facility] [place] [address] 06/28/2023 8:00 AM EDT Office Visit [facility] [place] [address] [facility] [phone] Kalen Ribeiro MD [address] [facility] [address] 09/02/2023 9:00 AM EDT Office Visit Cardiology, [facility] [address] [facility] [place] [address] Halley Preston CRNP [address] [facility] [place] [address] 02/10/2024 10:00 AM EST Cardiac Studies Cardiology, [facility] [address] [facility] [place] [address] [place] [facility] [address] [place] [address] 02/13/2024 8:15 AM EST Cardiac Studies Cardiac Studies, [facility] [address] [facility] [place] [address] Health Maintenance Due Date Last Done Comments Zoster Vaccines (2 of 3) 07/17/2007 05/22/2007 COVID-19 Vaccine ( season) 2022 12/26/2021, 02/14/2021, 06/09/2020, Additional history exists DXA Scan 02/14/2023 02/14/2021, 06/10, 07/21/2014, Additional history exists Albumin/Creatinine Ratio 06/09/2023 06/08/2022, 05/11 CKD PHOS USE SMARTSET 10450 06/09/202305/11, 12/16/2020, 09/26/2020, Additional history exists Depression Screening 06/13/2023 06/12/2022 GFR 09/05/2023 03/06/2023, 11/09, 06/08/2022, Additional history exists CKD HGB USE SMARTSET 45375 11/21/202311/20, 06/08/2022, 06/08/2022, Additional history exists TSH 12/26/2023 12/25/2022, 05/11, 12/11/2021, Additional history exists DTaP,Tdap,and Td Vaccines (2 - Td or Tdap) 08/14/2024 08/14/2014, 01/25/2000 Pneumococcal Vaccine: 65+ Years Completed 01/06/2015, 08/19/2007 VITAMIN D LEVEL ONCE IN A LIFETIME-USE SMARTSET# [id number] Completed 12/11/2018, 07/07/2018, 10/06/2010 Influenza Vaccine (FLU [...] this encounter Medical Devices Implanted Type Area Human Resources Support Specialist Device Identifier Shelf Expiration Date Model / Serial / Lot Lead Tempo Temp Pacing - [id number] Implanted:Qty: 1 on 09/20/2020 by Dimitri Maya MD at [facility] [place] [employer] [id number] 06/28/2021 [id number] / / [id number] documented as of this encounter Advance Directives [...] the patient have Health Care Power of Intern Retail? No Full Code 09/25/2020 6:44 PM 09/26/2020 [...] the patient have Health Care Power of Intern Retail? No Care Teams E Commerce Merchandising Coordinator Relationship Specialty Start Date End Date Kalen Ribeiro MD [address] [place] [address] PCP - General 12/15/01 documented as of this encounter
--- OUTSIDE RECORDS SUMMARY | 2023-06-01 11:17 | External Medical Summary | Summary of Care ---
Author Name Unknown Organization [facility] Address [address] [place] [address] Phone [phone] Care Team Providers Care Clinical Evaluator Name Role Phone Kalen Ribeiro MD Primary Care Provider [phone]- [phone] Reason for Referral * Evaluate & Treat - Unlimited Visits (Within 10 days (routine)) - Authorized Specialty Diagnoses / Procedures Referred By Contact Referred To Contact Cardiac Electrophysiology / Cardiology Diagnoses Bradycardia, sinus Halley Preston CRNP [address] [place] [address] Jeanie Mason DO [address] [place] [address] Referral ID Status Reason Start Date Expiration Date Visits Requested Visits Authorized [id number] Authorized Specialty Services Required 09/25/[phone] Question Answer Referral Priority Within 10 days (routine) Comments For abnormal ZIO. SSS. Reason for Visit * Reason Onset Date Comments Test Results 09/25/2022 Encounter Details Date Type Department Care Team Description 09/25/2022 Telephone Cardiology, [facility] [address] [place] [address] Halley Preston CRNP [address] [employer] [place], [place] [id number] Test Results Allergies Active Allergy Reactions Severity Noted Date Comments Heparin 10/07/2020 Concern for HIT documented as of this encounter (statuses as of 12/25/2022) Medications Medication Sig Dispensed Refills Start Date [...] other meds). 90 Tablet 3 06/12/2022 Active documented as of this encounter (statuses as of 12/25/2022) Active Problems Problem Noted Date Chronic kidney disease, stage 3a 023 Overview: Per CKD protocol Benign hypertension with stage 3a chroni c kidney disease 06/18/2022 Overview: Per CKD protocol Paroxysmal atrial fibrillation 3 HIT (heparin-induced thrombocytopenia) 0 03/29/2022 Atherosclerosis of aorta 07/14/2021 Atherosclerotic heart diseas e of [place] coronary artery with other forms of angina pectoris 07/14/2021 Age-related osteoporosis without current pathological fracture 07/14/2021 History of pulmonary embolism 06/08/2021 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 02/09/2021 [...] as of this encounter (statuses as of 12/25/2022) Resolved Problems Problem Noted Date Resolved Date [...] as of this encounter (statuses as of 12/25/2022) Immunizations Name Administration Dates Next Due COVID-19 [...] Seasonal Influenza, Quadriva lent Hd (Fluzone Hd) 12/11/2021,01/20/2021 Seasonal Influenza, Quadriva lent, No Preserve, IM 12/02/2015,01/06/2015 Seasonal Influenza, Split, I IV3, With Preserve, Inj 01/05/2014,01/01/2013,12/31/2011,12/26,01/06/2010,12/16/2008,01/23/2008 ,01/01/2007,01/17/2006 TDAP (age 10 and older)(Boostrix) 08/14/2014 Varicella Zoster Vaccine (Adult) 05/22/2007 documented as of this encounter Social History Tobacco Use Types Packs/Day Years Used Date Smoking Tobacco: Never Smokeless Tobacco: Never Alcohol Use Standard Drinks/Week [...] encounter Miscellaneous Notes * Telephone Encounter - CARLIE Schultz - 09/25/2022 2:57 PM EDT Spoke with pt. Pt is scheduled 11/20/[address] Mason and is on cancellation list. * Telephone Encounter - Johnny De Leon RN - 09/25/2022 2:43 PM EDT Called and spoke to the patient and reviewed the message wit her from Halley MATHEW in regardsto her ZIO monitor report. Patient has agreed to see EP. Referral placed. * Telephone Encounter - Johnny De Leon RN - 09/25/2022 2:43 PM EDT ----- Message from QUINCY Silva sent at 09/24/2022 12:44 PM EDT ----- This patient has been having episodes of fatigue and lightheaded. There have been multiple EKGs completed showing SB in the 40-50s. Beta yifan has since been discontinued. Zio revealed SB with an average HR in the low to mid 50s. No significant pauses noted. Recommend EP evaluation for SSS, possible need for PPM. * Telephone Encounter - QUINCY Silva - 09/25/2022 2:01 PM EDT See Zio result note. QUINCY Pacheco * Telephone Encounter - CARLIE Ochoa - 09/25/2022 1:56 PM EDT Good Afternoon Patient calling for Zio results Please advise Thank you documented in this encounter Plan of Treatment Upcoming Encounters Date Type Specialty Care Team Description 02/08/2023 Cardiac Studies Cardiology Rosalinda Caldera [facility] [address] [place] [address] 02/11/2023 Cardiac Studies Cardiac Studies 02/27/2023 Office Visit Cardiology Halley Preston CRNP [address] [place] [address] 02/28/2023 Office Visit Orthopedics Chava Huff PA-C [address] [place] [address] 06/28/2023 Office Visit Family Medicine Kalen Ribeiro MD [address] [place] [address] Scheduled Referrals Name Type Priority Associated Diagnoses Order Schedule ELECTROPHYSIOLOGY REFERRAL OP Referral Within 10 days (routine) Bradycardia, sinus Ordered: 09/25/2022 Health Maintenance Due Date Last Done Comments Zoster Vaccines (2 of 3) 07/17/2007 05/22/2007 COVID-19 Vaccine ( season) 2022 12/26/2021, 02/14/2021, 06/09/2020, Additional history exists DXA Scan 02/14/2023 02/14/2021, 06/10, 07/21/2014, Additional history exists GFR 05/21/2023 11/20/2022, 05/11, 12/11/2021, Additional history exists Albumin/Creatinine Ratio 06/09/2023 06/08/2022, 05/11 CKD PHOS USE SMARTSET 24953 06/09/202305/11, 12/16/2020, 09/26/2020, Additional history exists TSH 06/09/2023 06/08/2022, 10/0 05/2021, 06/08/2021, Additional history exists Depression Screening 06/13/2023 06/12/2022 CKD HGB USE SMARTSET 18666 11/21/202311/20, 06/08/2022, 06/08/2022, Additional history exists DTaP,Tdap,and Td Vaccines (2 - Td or Tdap) 08/14/2024 08/14/2014, 01/25/2000 Pneumococcal Vaccine: 65+ Years Completed 01/06/2015, 08/19/2007 VITAMIN D LEVEL ONCE IN A LIFETIME-USE SMARTSET# [id number] Completed 12/11/2018, 07/07/2018, 10/06/2010 Influenza Vaccine (FLU [...] this encounter Medical Devices Implanted Type Area Fire Pot Operator Device Identifier Shelf Expiration Date Model / Serial / Lot Lead Tempo Temp Pacing - [id number] Implanted:Qty: 1 on 09/20/2020 by Dimitri Maya MD at [facility] [employer] [id number] 06/28/2021 [id number] / [id number] documented as of this encounter Visit Diagnoses Diagnosis Bradycardia, sinus- Primary Other specified cardiac dysrhythmias documented in this encounter Advance Directives Latest [...] the patient have Health Care Power of Binder Lockstitch? No Full Code 09/25/2020 6:44 PM 09/26/2020 [...] the patient have Health Care Power of Binder Lockstitch? No Care Teams Clinical Evaluator Relationship Specialty Start Date End Date Kalen Ribeiro MD [address] [place] [address] PCP - General 12/15/01 documented as of this encounter
--- OUTSIDE RECORDS SUMMARY | 2023-06-01 11:17 | External Medical Summary ---
Author Name Unknown Address Unknown Organization K01:[facility] [place] - [address] [place] [address] Laboratory Report Ordering Provider Test Date Status CHANTALE ALCAZAR 12/25/2022 08:42:46 Final Observation Date Value Abnormality Reference (Units ) Status TSH 12/25/2022 08:42:46 2.31 0.27-4.20 (uIU/mL) Final Performing Location LAB[facility]ATORY [facility] - [address] [place] [address]
--- OUTSIDE RECORDS SUMMARY | 2023-06-01 11:17 | External Medical Summary | Summary of Care ---
Author Name Unknown Organization [facility] Address [address] [place] [address] Phone [phone] Care Team Providers Care Manager School Name Role Phone Kalen Ribeiro MD Primary Care Provider [phone]- [phone] Encounter Details Date Type Department Care Team Description 12/07/2022 Orders Only Cardiology Brit Mckee [address] [place] [id number] Jeanie Mason DO [address] [facility] [place] [address] Allergies Active Allergy Reactions Severity Noted Date Comments Heparin 10/07/2020 Concern for HIT documented as of this encounter (statuses as of 12/07/2022) Medications Medication Sig Dispensed Refills Start Date [...] by mouth in the morning. 0 Active Famotidine 40 MG Oral Tablet (Pepcid)Indications: Gastroesophageal reflux disease, unspecified whether esophagitis present Take by mouth 1 Tablet as needed before bedtime for Heartburn. 30 Tablet 5 08/09/2021 Active Pantoprazole Sodium 40 MG Oral Tablet Delayed Release (Protonix) TAKE ONE TABLET BY MOUTH DAILY 90 Tablet 3 09/30/2021 Active Atorvastatin Calcium 20 MG Oral Tablet [...] as of this encounter (statuses as of 12/07/2022) Active Problems Problem Noted Date Chronic kidney disease, stage 3a 023 Overview: Per CKD protocol Benign hypertension with stage 3a chroni c kidney disease 06/18/2022 Overview: Per CKD protocol Paroxysmal atrial fibrillation 3 HIT (heparin-induced thrombocytopenia) 0 03/29/2022 Primary open angle glaucoma (POAG) 03/29 Atherosclerosis of aorta 07/14/2021 Atherosclerotic heart diseas e of [place] coronary artery with other forms of angina pectoris 07/14/2021 Age-related osteoporosis without current pathological fracture 07/14/2021 History of pulmonary embolism 06/08/2021 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 02/09/2021 History of pericarditis 10/02/2020 Iron deficiency anemia 10/02/2020 S/P TAVR (transcatheter aortic valve rep lacement) 09/25/2020 Pericardial effusion 09/20/2020 Primary open-angle glaucoma, bilateral, moderate stage 03/16/2019 Gastroesophageal reflux disease without esophagitis 03/16/2019 Other osteoporosis without current patho logical fracture 06/05/2018 Vitamin D deficiency 06/05/2018 History of adenomatous polyp of colon HTN, goal below 140/90 08/01/2017 Hypothyroidism 01/15/2015 Dyslipidemia, goal LDL below 130 011 documented as of this encounter (statuses as of 12/07/2022) Resolved Problems Problem Noted Date Resolved Date Protein-calorie malnutrition 10/24/2020 Pleural effusion 10/13/2020 12/08/2020 [...] Syncope 09/20/2020 10/24/2020 Arteriosclerosis of aorta 12/11/20182020 Aortic stenosis 01/08/2018 10/24/2020 Benign hypertension with [...] as of this encounter (statuses as of 12/07/2022) Immunizations Name Administration Dates Next Due COVID-19 mRNA, LNP-s, No Pre serve, 2-Dose Series (Moderna) 06/09/2020,05/12/2020 COVID-19, mRNA, LNP-s, PF, B ooster, 100mcg/0.5mg (Moderna) 02/14/2021 Covid-19, Mrna, Lnp-s, Pf, B ivalent, 30 Mcg, IM, 12 yrs and above (Pfizer) 12/26/2021 Pneumococcal Conjugate Vacc, 13 Valent (Prevnar) 01/06/2015 Pneumococcal Polysaccharide PPV23 (Pneumovax) 08/19/2007 Seasonal Influenza, PF, 6 mo ns & Above, IM , (Flulaval) 11/19/2019,11/29/2018,12/05/2017,01/17 Seasonal Influenza, Quadriva lent Hd (Fluzone [...] Encounters Date Type Specialty Care Team Description 12/14/2022 Cardiac Studies Cardiology [facility] [address] [place] [address] 12/25/2022 Office Visit Family Medicine Kalen Ribeiro MD [address] [place] [address] 02/11/2023 Cardiac Studies Cardiac Studies 02/28/2023 Office Visit Orthopedics Chava Huff PA-C [address] [place] [address] Health Maintenance Due Date Last Done Comments Zoster Vaccines (2 of 3) 07/17/2007 05/22/2007 DXA Scan 02/14/2023 02/14/2021, 06/10, 07/21/2014, Additional history exists GFR 05/21/2023 11/20/2022, 05/11, 12/11/2021, Additional history exists Albumin/Creatinine Ratio 06/09/2023 06/08/2022, 05/11 CKD PHOS USE SMARTSET 11966 06/09/202305/11, 12/16/2020, 09/26/2020, Additional history exists TSH 06/09/2023 06/08/2022, 05/2021, 06/08/2021, Additional history exists Depression Screening 06/13/2023 06/12/2022 CKD HGB USE SMARTSET 58680 11/21/202311/20, 06/08/2022, 06/08/2022, Additional history exists DTaP,Tdap,and Td Vaccines (2 - Td or Tdap) 08/14/2024 08/14/2014, 01/25/2000 Pneumococcal Vaccine: 65+ Years Completed 01/06/2015, 08/19/2007 VITAMIN D LEVEL ONCE IN A LIFETIME-USE SMARTSET# [id number] Completed 12/11/2018, 07/07/2018, 10/06/2010 COVID-19 Vaccine Completed 12/26/2021, 09/2020, 06/09/2020, Additional history exists Influenza Vaccine (FLU shot) Completed 02/2023, 12/11/2021, [...] this encounter Medical Devices Implanted Type Area 3Rd Mate Device Identifier Shelf Expiration Date Model / Serial / Lot Lead Tempo Temp Pacing - [id number] Implanted:Qty: 1 on 09/20/2020 by Dimitri Maya MD at [facility] [place] [id number] 06/28/2021 [id number] / / [id number] documented as of this encounter Procedures Procedure Name Priority Date/Time Associated Diagnosis Comments XR CHEST 1 VIEW Routine 12/05/2022 documented in this encounter Results * XR CHEST 1 VIEW (12/05/2022) Anatomical Region Laterality Modality Chest Other 12/05/2022 Jeanie Mason DO RADIOLOGY (RAD GENERAL) documented in this encounter Advance Directives Latest [...] the patient have Health Care Power of Concrete Mixing Plant Superintendent? No Full Code 09/25/2020 6:44 PM 09/26/2020 [...] the patient have Health Care Power of Concrete Mixing Plant Superintendent? No Care Teams Manager School Relationship Specialty Start Date End Date Kalen Ribeiro MD [address] [place] [address] PCP - General 12/15/01 documented as of this encounter
--- OUTSIDE RECORDS SUMMARY | 2023-06-01 11:17 | External Medical Summary ---
Author Name Unknown Address Unknown Organization K01:[facility] - [address] [place] [address] Laboratory Report Ordering Provider Test Date Status DEV DOUGLAS 12/25/2022 08:42:46 Final Observation Date Value Abnormality Reference (Units ) Status Magnesium 12/25/2022 08:42:46 2.2 1.5-2.6 (m g/dL) Final Performing Location LAB[facility] - [address] [place] [address]
--- OUTSIDE RECORDS SUMMARY | 2023-06-01 11:17 | External Medical Summary | Summary of Care ---
Author Name Unknown Organization [facility] Address [address] [place] [address] Phone [phone] Care Team Providers Care Print Controller Name Role Phone Kalen Ribeiro MD Primary Care Provider +1- [phone] Reason for Visit * Reason Comments Pacemaker Clinic Encounter Details Date Type Department Care Team Description 12/14/2022 Cardiac Studies Cardiology, [facility] [address] [facility] [place] [address] [place], Pacer Clinic [facility] [address] [facility] [place] [address] SSS (sick sinus syndrome) ([facility])*; Bradycardia, sinus; Cardiac pacemaker in situ Allergies Active Allergy Reactions Severity Noted Date Comments Heparin 10/07/2020 Concern for HIT documented as of this encounter (statuses as of 12/19/2022) Medications Medication Sig Dispensed Refills Start Date [...] 0 Active Famotidine 40 MG Oral Tablet (Pepcid)Indicatio ns:Gastroesophage al reflux disease, unspecified whether esophagitis present Take by mouth 1 Tablet as needed before bedtime for Heartburn. 30 Tablet 5 08/09/2021 Active Atorvastatin Calcium 20 MG Oral Tablet (Lipitor)Indicati ons:Dyslipidemia, goal LDL below 70 TAKE ONE TABLET BY MOUTH DAILY. 90 Tablet 3 10/13/2021 Active Rocklatan 0.02-0.005 % Ophthalmic Solution (Netarsudil-Latan [...] BY MOUTH DAILY 90 Tablet 3 09/30/2021 3 Discontinued documented as of this encounter (statuses as of 12/19/2022) Active Problems Problem Noted Date Chronic kidney disease, stage 3a 023 Overview: Per CKD protocol Benign hypertension with stage 3a chroni c kidney disease 06/18/2022 Overview: Per CKD protocol Paroxysmal atrial fibrillation 3 HIT (heparin-induced thrombocytopenia) 0 03/29/2022 Primary open angle glaucoma (POAG) 03/29 Atherosclerosis of aorta 07/14/2021 Atherosclerotic heart diseas e of [place] coronary artery with other forms of angina pectoris 07/14/2021 Age-related osteoporosis without current pathological fracture 07/14/2021 History of pulmonary embolism 06/08/2021 senior living current use of anticoagulant t herapy 02/09/2021 [...] as of this encounter (statuses as of 12/19/2022) Resolved Problems Problem Noted Date Resolved Date [...] as of this encounter (statuses as of 12/19/2022) Immunizations Name Administration Dates Next Due COVID-19 mRNA, LNP-s, No Pre serve, 2-Dose Series (Moderna) 06/09/2020,05/12/2020 COVID-19, mRNA, LNP-s, PF, B ooster, 100mcg/0.5mg (Moderna) 02/14/2021 Covid-19, Mrna, Lnp-s, Pf, B ivalent, 30 Mcg, IM, 12 yrs and above (Squee) 12/26/2021 Pneumococcal Conjugate Vacc, 13 Valent (Prevnar) [...] Progress Notes * Katya Ford RN - 12/19/2022 4:00 PM EDT Patient and implanted device were evaluated today in the [facility]. Providers please see scanned report in the Scans tab. Katya Ford RN documented in this encounter Nursing Notes * Marika Gutierrez RN - 12/14/2022 1:28 PM EDT Patient and implanted device were evaluated today in the [facility]. Providers please see scanned report in the Scans tab. Post op dressing removed. Incision well approximated, clean, dry. No redness. Minimal swelling/bruising. Patient noting some discomfort in shoulder blade. Advised general measures. Surgical glue intact. Discussed signs/symptoms to monitor and report. Patient teaching about new devices and device follow explained. Do not raise your elbow on the incision side above shoulder level in a repetitive manner. This gives the device lead wires time to attach securely inside your heart. Cleanse area with antibacterial soap and pat dry Advoidance of dental procedures for 6 months Carry an ID card that contains information about your pacemaker. You can show this card if your pacemaker sets off a metal detector. You should also show it to avoid screening with a hand-held security wand. Keep your cell phone away from your pacemaker. Dont carry the phone in your shirt pocket, even when its turned off. Avoid strong magnets. Examples are those used in MRIs or in hand-held security wands. Avoid strong electrical redding. Examples are those made by radio transmitting towers, ham radios, and heavy-duty electrical equipment. Avoid leaning over the open vu of a running car. A running engine creates an electrical field. Return in 6 to 8 weeks for chronic threshold testing. Tech: Omi [employer] documented in this encounter Plan of Treatment Upcoming Encounters Date Type Specialty Care Team Description 12/25/2022 Office Visit Family Medicine Kalen Ribeiro MD [address] [place] [address] 02/08/2023 Cardiac Studies Cardiology [place], [facility] [place] [address] 02/11/2023 Cardiac Studies Cardiac Studies 02/28/2023 Office Visit Orthopedics Chava Huff PA-C [address] [place] [address] Scheduled Orders Name Type Priority Associated Diagnoses Orde r Schedule POSTOP F-UP VISIT IN GLOBAL Procedures Routine SSS (sick sinus syndrome) (HCC) Bradycardia, sinus Cardiac pacemaker in situ Ordered: 12/14/2022 Health Maintenance Due Date Last Done Comments Zoster Vaccines (2 of 3) 07/17/2007 05/22/2007 COVID-19 Vaccine ( season) 2022 12/26/2021, 02/14/2021, 06/09/2020, Additional history exists DXA Scan 02/14/2023 02/14/2021, 06/10, 07/21/2014, Additional history exists GFR 05/21/2023 11/20/2022, 05/11, 12/11/2021, Additional history exists Albumin/Creatinine Ratio 06/09/2023 06/08/2022, 05/11 CKD PHOS USE SMARTSET 50319 06/09/202305/11, 12/16/2020, 09/26/2020, Additional history exists TSH 06/09/2023 06/08/2022, 05/2021, 06/08/2021, Additional history exists Depression Screening 06/13/2023 06/12/2022 CKD HGB USE SMARTSET 46885 11/21/202311/20, 06/08/2022, 06/08/2022, Additional history exists DTaP,Tdap,and Td Vaccines (2 - Td or Tdap) 08/14/2024 08/14/2014, 01/25/2000 Pneumococcal Vaccine: 65+ Years Completed 01/06/2015, 08/19/2007 VITAMIN D LEVEL ONCE IN A LIFETIME-USE SMARTSET# [id number] Completed 12/11/2018, 07/07/2018, 10/06/2010 Influenza Vaccine (FLU [...] this encounter Medical Devices Implanted Type Area Classification Counselor Device Identifier Shelf Expiration Date Model / Serial / Lot Lead Tempo Temp Pacing - [id number] Implanted:Qty: 1 on 09/20/2020 by Dimitri Maya MD at [facility] [place] [employer] [id number] 06/28/2021 [id number] / / [id number] documented as of this encounter Visit Diagnoses Diagnosis SSS (sick sinus syndrome) ([facility])- Primary Sinoatrial node dysfunction Bradycardia, sinus Other specified cardiac dysrhythmias Cardiac pacemaker in situ documented in this [...] the patient have Health Care Power of Materials Management Clerk? No Full Code 09/25/2020 6:44 PM [...] the patient have Health Care Power of Materials Management Clerk? No Care Teams Print Controller Relationship Specialty Start Date End Date Kalen Ribeiro MD [address] [place] [address] PCP - General 12/15/01 documented as of this encounter
--- OUTSIDE RECORDS SUMMARY | 2023-06-01 11:17 | External Medical Summary | Summary of Care ---
Author Name Unknown Organization [facility] Address [address] [place] [address] Phone [phone] Care Team Providers Care Geographic Information System Surveyor Name Role Phone Kalen Ribeiro MD Primary Care Provider [phone]- [phone] Encounter Details Date Type Department Care Team Description 12/21/2022 Result Scan Unspecified Department Jerod Rosales, DO [address] [place] [address] <No scans attached> Allergies Active Allergy Reactions Severity Noted Date Comments Heparin 10/07/2020 Concern for HIT documented as of this encounter (statuses as of 12/21/2022) Medications Medication Sig Dispensed Refills Start Date [...] ONCE DAILY 90 Tablet 1 12/17/2022 Active documented as of this encounter (statuses as of 12/21/2022) Active Problems Problem Noted Date Chronic kidney disease, stage 3a 023 Overview: Per CKD protocol Benign hypertension with stage 3a chroni c kidney disease 06/18/2022 Overview: Per CKD protocol Paroxysmal atrial fibrillation 3 HIT (heparin-induced thrombocytopenia) 0 03/29/2022 Primary open angle glaucoma (POAG) 03/29 Atherosclerosis of aorta 07/14/2021 Atherosclerotic heart diseas e of [place] coronary artery with other forms of angina pectoris 07/14/2021 Age-related osteoporosis without current pathological fracture 07/14/2021 History of pulmonary embolism 06/08/2021 shelter current use of anticoagulant t herapy 02/09/2021 [...] as of this encounter (statuses as of 12/21/2022) Resolved Problems Problem Noted Date Resolved Date Protein-calorie malnutrition 10/24/2020 Pleural effusion 10/13/2020 12/08/2020 Overview: Left Acute pulmonary embolism 10/09/2020 021 Heparin induced thrombocytopenia 10/05/2020 12/08/2020 Atrial fibrillation with RVR 10/04/2020 Generalized weakness 10/02/2020 10/05/2020 Symptomatic anemia 10/02/2020 10/05/2020 ST elevation myocardial infarction (STEMI) 09/2510/06/2020 Pericarditis 09/25/2020 12/08/2020 Scapulalgia 09/20/2020 10/24/2020 Thoracic back pain 09/20/2020 10/24/2020 Vertigo 09/20/2020 10/24/2020 Diverticulosis of intestine 09/20/2020 0808/2020 Fracture of rib of right side 09/20/2020 [...] 10/04/2004 08/02/19 18 FAM HX-DIABETES MELLITUS 02/08/2003 11/09/2 017 HYPOTHYROIDISM NOS 01/06/2015 Menopause 01/01/2013 documented as of this encounter (statuses as of 12/21/2022) Immunizations Name Administration Dates Next Due COVID-19 [...] Family Medicine Kalen Ribeiro MD [address] [place] [address] 02/08/2023 Cardiac Studies Cardiology [facility], [facility] [address] [place] [place] [address] 02/11/2023 Cardiac Studies Cardiac Studies 02/28/2023 Office Visit Orthopedics Chava Huff PA-C [address] [place] [address] Health Maintenance Due Date Last Done Comments Zoster Vaccines (2 of 3) 07/17/2007 05/22/2007 COVID-19 Vaccine ( season) 2022 12/26/2021, 02/14/2021, 06/09/2020, Additional history exists DXA Scan 02/14/2023 02/14/2021, 06/10, 07/21/2014, Additional history exists GFR 05/21/2023 11/20/2022, 05/11, 12/11/2021, Additional history exists Albumin/Creatinine Ratio 06/09/2023 06/08/2022, 05/11 CKD PHOS USE SMARTSET 27378 06/09/202305/11, 12/16/2020, 09/26/2020, Additional history exists TSH 06/09/2023 06/08/2022, 1005/2021, 06/08/2021, Additional history exists Depression Screening 06/13/2023 06/12/2022 CKD HGB USE SMARTSET 07386 11/21/202311/20, 06/08/2022, 06/08/2022, Additional history exists DTaP,Tdap,and Td Vaccines (2 - Td or Tdap) 08/14/2024 08/14/2014, 01/25/2000 Pneumococcal Vaccine: 65+ Years Completed 01/06/2015, 08/19/2007 VITAMIN D LEVEL ONCE IN A LIFETIME-USE SMARTSET# [id number] Completed 12/11/2018, 07/07/2018, 10/06/2010 Influenza Vaccine (FLU [...] this encounter Medical Devices Implanted Type Area Senior Teradata Developer Device Identifier Shelf Expiration Date Model / Serial / Lot Lead Tempo Temp Pacing - [id number] Implanted:Qty: 1 on 09/20/2020 by Dimitri Maya MD at [facility] [employer] [id number] 06/28/2021 [id number] / / [id number] documented as of this encounter Procedures Procedure Name Priority Date/Time Associated Diagnosis Comments CARDIOLOGY SCANNED RESULT 12/21/2022 documented in this encounter Results * CARDIOLOGY SCANNED RESULT (12/21/2022) 12/21/2022 Jerod Lissette Rosales DO OTHER documented in this encounter [...] the patient have Health Care Power of Loss Mitigation Specialist? No Full Code 09/25/2020 6:44 PM 09/26/2020 [...] the patient have Health Care Power of Loss Mitigation Specialist? No Care Teams Geographic Information System Surveyor Relationship Specialty Start Date End Date Kalen Ribeiro MD [address] [place] [address] PCP - General 12/15/01 documented as of this encounter
--- OUTSIDE RECORDS SUMMARY | 2023-06-01 11:17 | External Medical Summary | Summary of Care ---
Author Name Unknown Organization [facility] Address [address] [place] [address] Phone [phone] Care Team Providers Care Civil Structural Designer Name Role Phone Kalen Ribeiro MD Primary Care Provider +1- [phone] Reason for Visit * Reason Comments Follow Up Follow upLingering d rainage in throat that hasn't cleared up Encounter Details Date Type Department Care Team Description 12/25/2022 Office Visit [facility] [address] [place] [address] Kalen Ribeiro MD [address] [place] [address] Gastroesophageal reflux disease without esophagitis*; Hypothyroidism, unspecified type; Atherosclerotic heart disease of [place] coronary artery with other forms of angina pectoris (HCC); 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); HTN, goal below 140/90; H/O sick sinus syndrome; Chronic rhinitis Allergies Active Allergy Reactions Severity Noted Date [...] before bedtime. 60 Tablet 11 12/25/2022 Active Famotidine 40 MG Oral Tablet (Pepcid)Indicatio ns:Gastroesophage al reflux disease, unspecified whether esophagitis present Take by mouth 1 Tablet as needed before bedtime for Heartburn. 30 Tablet 5 08/09/2021 12/25/2022 Discontinued (Medication/ Dose Changed) documented as of this encounter (statuses as of 12/25/2022) Active Problems Problem Noted Date Chronic kidney disease, stage 3a 023 Overview: Per CKD protocol Benign hypertension with stage 3a chroni c kidney disease 06/18/2022 Overview: Per CKD protocol Paroxysmal atrial fibrillation 3 HIT (heparin-induced thrombocytopenia) 0 03/29/2022 Atherosclerosis of aorta 07/14/2021 Atherosclerotic heart diseas e of [place] coronary artery with other forms of angina pectoris 07/14/2021 Age-related osteoporosis without current pathological fracture 07/14/2021 History of pulmonary embolism 06/08/2021 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 herapy 02/09/2021 [...] 30 Mcg, IM, 12 yrs and above ([employer]ance) 12/26/2021 Pneumococcal Conjugate Vacc, 13 Valent (Prevnar) [...] Sign Reading Time Taken Comments Blood Pressure 136/82 12/25/2022 7:26 AM EDT Pulse 68 12/25/2022 7:26 AM EDT Temperature 35.6 C (96.1 F) 12/25/2022 7:26 AM ED T Respiratory Rate 18 12/25/2022 7:26 AM EDT Oxygen Saturation 100% 12/25/2022 7:26 AM EDT Inhaled Oxygen Concentration - - Weight 52 kg (114 lb 9.6 oz) 12/25/2022 7:26 AM EDT Height - - Body Mass Index 24.16 03/29/2022 7:30 AM EST documented in this [...] as of this encounter Progress Notes * Missy Mendoza LPN - 12/25/2022 8:30 AM EDT bilateral ear lavage done with small amount of cerumen removed. patient tolerated well. * Kalen Ribeiro MD - 12/25/2022 8:13 AM EDT Subjective: Marie Nieves is a 82 year old female here today for Chief Complaint Patient presents with Follow Up Follow up Lingering drainage in throat that hasn't cleared up Patient presents for routine six-month follow-up. Since her last visit, she has had pacemaker placed by Cardiology. She is feeling better with it. No apparent complications. She states she even feelsmore steady when she walks. She also has seen orthopedics for her knee pain. She did not respond toSynvisc injections but is getting relief from steroid injections. She is getting them about every 3 months. She is happy with those results. She does continue to have chronic mucus production and drainage. She struggles to clear it from herthroat. She did see some improvement while on Mucinex but did not want to take that medication long. Of note, she had a cxr related to pacemaker placement and there was no evidence for pulmonary edema or pneumonia. She also is having some issues breakthrough heartburn and reflux despite taking pantoprazole once a day and famotidine at bedtime. She believes the famotidine at bedtime really helps in his wondering if she could take that twice per day. She continues to do well off of the prednisone that was prescribed for her temporal arteritis. Reviewed immunizations - she is not sure about shingrix, covid booster, rsv vaccinations but is aware to get them at pharmacy if desired. She is due for repeat TSH. Past Medical History: Diagnosis Date Closed fracture [...] left temportal artery bx dx benign - [facility] Dr. Garcia LUMBAR / SACRAL EPIDURAL, SINGLE LEVEL 10/04/2015 INJECTION TRANSFORAMINAL EPIDURAL LUMBAR OR SACRAL performed by David Costello, DO at OR [facility] LUMBAR / SACRAL EPIDURAL, SINGLE LEVEL 10/25/2015 INJECTION TRANSFORAMINAL EPIDURAL LUMBAR OR SACRAL performed by David Costello, DO at OR [facility] MISCELLANEOUS ORDER ([facility] ONLY) 12/15 excision lipoma forehead REPLACE AORTIC VALVE, PERCUTANEOUS FEMORAL N/A 09/20/2020 REPLACE AORTIC VALVE, PERCUTANEOUS FEMORAL performed by Dimitri Maya MD at [facility] REPLACE AORTIC VALVE, PERCUTANEOUS FEMORAL N/A 09/20/2020 REPLACE AORTIC VALVE, PERCUTANEOUS FEMORAL performed by Alexys Almazan MD, PhD at [facility] TOTAL ABD HYSTERECTOMY W/WO REMOVAL OF TUBE(S) [...] 2 Capsules by mouth in the morning. Atorvastatin Calcium 20 MG Oral Tablet (Lipitor) TAKE ONE TABLET BY MOUTH DAILY. 90 Tablet 3 Rocklatan 0.02-0.005 % Ophthalmic Solution (Netarsudil-Latanoprost) [...] 1 Tablet before bedtime. 60 Tablet 11 No current facility-administered medications for this visit. Objective: BP 136/82 | Pulse 68 | Temp 35.6 C (96.1 F) (Infrared ) | Resp 18 | Wt 52 kg (114 lb9.6 oz) | SpO2 100% | BMI 24.16 kg/m | BSA 1.46 m GEN: NAD HEENT: Benign NECK: Supple with no LAD, TM, JVD CHEST: CTA B CV: RRR ABD: Soft, NT/ND, No HSM, NABS EXT: No c,c,e Assessment and Plan: Gastroesophageal reflux disease without esophagitis (Primary) -change famotidine to 20 milligrams twice per day. Can continue to take the pantoprazole for now but can discontinue if the twice per day famotidine appears to be working. Hypothyroidism, unspecified type - TSH WITH FREE T4 IF INDICATED; Future; Expected date: 12/25/2022 Atherosclerotic heart disease of [place] coronary artery with other forms of angina pectoris (HCC) -stable symptoms 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) -continue current treatments and monitoring HTN, goal below 140/90 -adequate control H/O sick sinus syndrome -status post pacemaker placement Chronic rhinitis -she may utilize Mucinex when needed as it was beneficial in the past. There was also a small chance that the reflux may be related and if it is improved with famotidine twice per day she may see some improvements. She was offered ENT referral but declines at this time. Her ears were noted to be blocked with cerumen and this was lavaged clear by nursing. Other orders - Famotidine 20 MG Oral Tablet (Pepcid); Take 1 Tablet by mouth in the morning and 1 Tablet before bedtime. Follow Up: Return in about 6 months (around 06/26/2023) for recheck. | For: recheck | Check-out note: Labs today 37 min with pt and documentation Kalen Ribeiro MD documented in this encounter Nursing Notes * Missy Mendoza LPN - 12/25/2022 7:24 AM EDT Chief Complaint Patient presents with Follow Up Follow up Lingering drainage in throat that hasn't cleared up documented in this encounter Plan of Treatment Upcoming Encounters Date Type Specialty Care Team Description 02/08/2023 Card[facility] Studies [facility] [address] [place] [address] 02/11/2023 Cardiac Studies Cardiac Studies 02/27/2023 Office Visit Cardiology Halley Preston CRNP [address] [place] [address] 02/28/2023 Office Visit Orthopedics Chava Huff PA-C [address] [place] [address] Scheduled Orders Name Type Priority Associated Diagnoses Orde r Schedule TSH WITH FREE T4 IF INDICATED Lab Routine Hypothyroidism, unspecified type Expected: 12/25/2022 (Approximate), Expires: 12/25/2023 Health Maintenance Due Date Last Done Comments Zoster Vaccines (2 of 3) 07/17/2007 05/22/2007 COVID-19 Vaccine ( season) 2022 12/26/2021, 02/14/2021, 06/09/2020, Additional history exists DXA Scan 02/14/2023 02/14/2021, 06/10, 07/21/2014, Additional history exists GFR 05/21/2023 11/20/2022, 05/11, 12/11/2021, Additional history exists Albumin/Creatinine Ratio 06/09/2023 06/08/2022, 05/11 CKD PHOS USE SMARTSET 37999 06/09/202305/11, 12/16/2020, 09/26/2020, Additional history exists TSH 06/09/2023 06/08/2022, 05/2021, 06/08/2021, Additional history exists Depression Screening 06/13/2023 06/12/2022 CKD HGB USE SMARTSET 92290 11/21/202311/20, 06/08/2022, 06/08/2022, Additional history exists DTaP,Tdap,and Td Vaccines (2 - Td or Tdap) 08/14/2024 08/14/2014, 01/25/2000 Pneumococcal Vaccine: 65+ Years Completed 01/06/2015, 08/19/2007 VITAMIN D LEVEL ONCE IN A LIFETIME-USE SMARTSET# [id number] Completed 12/11/2018, 07/07/2018, 10/06/2010 Influenza Vaccine (FLU [...] this encounter Medical Devices Implanted Type Area Cheese Pancake Roller Device Identifier Shelf Expiration Date Model / Serial / Lot Lead Tempo Temp Pacing - [id number] Implanted:Qty: 1 on 09/20/2020 by Dimitri Maya MD at [facility] [employer] [id number] 06/28/2021 [id number] / / [id number] documented as of this encounter Visit Diagnoses Diagnosis Gastroesophageal reflux disease without esophagitis- Primary Esophageal reflux Hypothyroidism, unspecified type Atherosclerotic heart disease of [place] coronary artery with other forms of angina pectoris (HCC) 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) HTN, goal below 140/90 Unspecified essential hypertension H/O sick sinus syndrome Personal history of other diseases of circulatory system Chronic rhinitis documented in this encounter Advance Directives Latest [...] patient have Health Care Power of Fire Investigator? No Full Code 09/25/2020 6:44 PM 09/26/2020 [...] patient have Health Care Power of Fire Investigator? No Care Teams Civil Structural Designer Relationship Specialty Start Date End Date Kalen Ribeiro MD [address] [place] [address] PCP - General 12/15/01 documented as of this encounter"
--- OUTSIDE RECORDS SUMMARY | 2023-06-01 11:17 | External Medical Summary | Summary of Care ---
Author Name Unknown Organization [facility] Address [address] [place] [address] Phone [phone] Care Team Providers Care Tax Evaluator Name Role Phone Ottoniel Kenyon MD Primary Care Provider +1- [phone] Reason for Visit * Reason Comments eRx-Medication Refill Encounter Details Date Type Department Care Team Description 12/15/2022 Refill [facility] [address] [place] [address] Ottoniel Kenyon MD [address] [place] [address] Encounter for long-term (current) use of medications* Allergies Active Allergy Reactions Severity Noted Date Comments Heparin 10/07/2020 Concern for HIT documented as of this encounter (statuses as of 12/17/2022) Medications Medication Sig Dispensed Refills Start Date [...] ONCE DAILY 90 Tablet 1 12/17/2022 Active Pantoprazole Sodium 40 MG Oral Tablet Delayed Release (Protonix) TAKE ONE TABLET BY MOUTH DAILY 90 Tablet 3 09/30/2021 3 Discontinued documented as of this encounter (statuses as of 12/17/2022) Active Problems Problem Noted Date Chronic kidney disease, stage 3a 023 Overview: Per CKD protocol Benign hypertension with stage 3a chroni c kidney disease 06/18/2022 Overview: Per CKD protocol Paroxysmal atrial fibrillation 3 HIT (heparin-induced thrombocytopenia) 0 03/29/2022 Primary open angle glaucoma (POAG) 03/29 Atherosclerosis of aorta 07/14/2021 Atherosclerotic heart diseas e of [place] coronary artery with other forms of angina pectoris 07/14/2021 Age-related osteoporosis without current pathological fracture 07/14/2021 History of pulmonary embolism 06/08/2021 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 02/09/2021 [...] as of this encounter (statuses as of 12/17/2022) Resolved Problems Problem Noted Date Resolved Date [...] as of this encounter (statuses as of 12/17/2022) Immunizations Name Administration Dates Next Due COVID-19 [...] encounter Miscellaneous Notes * Telephone Encounter - Italo Saucedo RPh - 12/17/2022 8:35 AM EDTSigned Prescriptions: Disp Refills Pantoprazole Sodium 40 MG Oral Tablet Sia*90 Tab*1 Sig: TAKE 1 TABLET BY MOUTH ONCE DAILYAuthorizing Provider: OTTONIEL KENYON User: ITALO BAIRD-- * Telephone Encounter - Interface, E-Rx Ss Inbound - 12/17/2022 6:06 AM EDT Pending Prescriptions: Disp Refills Pantoprazole Sodium 40 MG Oral Tablet Sia*90 Tab*0 Sig: TAKE 1TABLET BY MOUTH ONCE DAILY documented in this encounter Plan of Treatment Upcoming Encounters Date Type Specialty Care Team Description 12/25/2022 Office Visit Family Medicine Ottoniel Kenyon MD [address] [place] [address] 02/08/2023 Cardiac Studies [facility] [address] [facility] [address] 02/11/2023 Cardiac Studies Cardiac Studies 02/28/2023 Office Visit Orthopedics Chava Huff PA-C [address] [facility] [place] [address] Scheduled Orders Name Type Priority Associated Diagnoses Orde r Schedule MAGNESIUM Lab Routine Encounter for long-term (current) use of medications Expected: 12/17/2022 (Approximate), Expires: 12/18/2023 Health Maintenance Due Date Last Done Comments Zoster Vaccines (2 of 3) 07/17/2007 05/22/2007 COVID-19 Vaccine ( season) 2022 12/26/2021, 02/14/2021, 06/09/2020, Additional history exists DXA Scan 02/14/2023 02/14/2021, 06/10, 07/21/2014, Additional history exists GFR 05/21/2023 11/20/2022, 05/11, 12/11/2021, Additional history exists Albumin/Creatinine Ratio 06/09/2023 06/08/2022, 05/11 CKD PHOS USE SMARTSET 86831 06/09/202305/11, 12/16/2020, 09/26/2020, Additional history exists TSH 06/09/2023 06/08/2022, 05/2021, 06/08/2021, Additional history exists Depression Screening 06/13/2023 06/12/2022 CKD HGB USE SMARTSET 91396 11/21/202311/20, 06/08/2022, 06/08/2022, Additional history exists DTaP,Tdap,and Td Vaccines (2 - Td or Tdap) 08/14/2024 08/14/2014, 01/25/2000 Pneumococcal Vaccine: 65+ Years Completed 01/06/2015, 08/19/2007 VITAMIN D LEVEL ONCE IN A LIFETIME-USE SMARTSET# [id number] Completed 12/11/2018, 07/07/2018, 10/06/2010 Influenza Vaccine (FLU [...] this encounter Medical Devices Implanted Type Area Sash Repairer Device Identifier Shelf Expiration Date Model / Serial / Lot Lead Tempo Temp Pacing - [id number] Implanted:Qty: 1 on 09/20/2020 by Dimitri Maya MD at [facility] [employer] [id number] 06/28/2021 [id number] / / [id number] documented as of this encounter Visit Diagnoses Diagnosis Encounter for long-term (current) use of medications- Primary Encounter for long-term (current) use of other medications documented in this encounter Advance Directives Latest [...] the patient have Health Care Power of Room Service Attendant? No Full Code 09/25/2020 6:44 PM 09/26/2020 [...] the patient have Health Care Power of Room Service Attendant? No Care Teams Tax Evaluator Relationship Specialty Start Date End Date Ottoniel Kenyon MD [address] [place] [address] PCP - General 12/15/01 documented as of this encounter
--- OUTSIDE RECORDS SUMMARY | 2023-06-01 11:17 | External Medical Summary | Summary of Care ---
Author Name Unknown Organization [facility] Address [address] [place] [address] Phone [phone] Care Team Providers Care Cash Poster Name Role Phone Kalen Ribeiro MD Primary Care Provider [phone]- [phone] Reason for Visit * Reason Comments Follow Up Follow upLingering d rainage in throat that hasn't cleared up Encounter Details Date Type Department Care Team Description 12/25/2022 Office Visit [facility] [address] [place] [address] Kalen Ribeiro MD [address] [place] [address] Gastroesophageal reflux disease without esophagitis*; Hypothyroidism, unspecified type; Atherosclerotic heart disease of [place] coronary artery with other forms of angina [...] aorta 07/14/2021 Atherosclerotic heart diseas e of [place] coronary artery with other forms of angina pectoris 07/14/2021 Age-related osteoporosis without current pathological fracture 07/14/2021 History of pulmonary embolism 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 360) 12/26/2021 Pneumococcal Conjugate Vacc, 13 Valent (Prevnar) [...] performed by Andrew Dudley MD at ENDOSCOPY [facility] COLONOSCOPY, DIAGNOSTIC (RECTUM) 06/20/2017 adenomatous polyp, diverticulosis/COLONOSCOPY FLEXIBLE PROXIMAL DIAGNOSTIC performed by Andrew Dudley MD at ENDOSCOPY [facility] DEXA SCAN/BONE MINERAL AXIAL 2006 osteoporosis, repeat 2 years DILATION AND CURETTAGE (D&C) unsure why ECHO (2-D COMPLETE) 10/12 Mild LVH, aortic scler - no stenosis FRACTURE NOS 10/12 L Tibial Plateau ORIF LIGATE/CUT OVIDUCT(S) LIGATION/BIOPSY OF TEMPORAL ARTERY Left 06/18/2016 06/18/2016 left temportal artery bx dx benign - [facility] Dr. Garcia LUMBAR / SACRAL EPIDURAL, SINGLE LEVEL 10/04/2015 INJECTION TRANSFORAMINAL EPIDURAL LUMBAR OR SACRAL performed by David Costello, DO at OR [facility] LUMBAR / SACRAL EPIDURAL, SINGLE LEVEL 10/25/2015 INJECTION TRANSFORAMINAL EPIDURAL LUMBAR OR SACRAL performed by David Costello, DO at OR [facility] MISCELLANEOUS ORDER ([facility] ONLY) 12/15 excision lipoma forehead REPLACE AORTIC VALVE, PERCUTANEOUS FEMORAL N/A 09/20/2020 REPLACE AORTIC VALVE, PERCUTANEOUS FEMORAL performed by Dimitri Maya MD at [facility] REPLACE AORTIC VALVE, PERCUTANEOUS FEMORAL N/A 09/20/2020 REPLACE AORTIC VALVE, PERCUTANEOUS FEMORAL performed by Alexys Almazan MD, PhD at [facility] TOTAL ABD HYSTERECTOMY W/WO [...] Expected date: 12/25/2022 Atherosclerotic heart disease of [place] coronary artery with other forms of angina [...] Care Team Description 02/08/2023 Cardiac Studies [facility] [address] [place] [address] 02/11/2023 Cardiac Studies Cardiac Studies 02/27/2023 Office Visit Cardiology Halley Preston CRNP [address] [place] [address] 02/28/2023 Office Visit Orthopedics Chava Huff PA-C [address] [place] [address] Scheduled Orders Name Type Priority Associated Diagnoses [...] 06/09/2023 06/08/2022, 05/11 CKD PHOS USE SMARTSET 79618 06/09/202305/11, 12/16/2020, 09/26/2020, Additional history exists TSH 06/09/2023 06/08/2022, 05/2021, 06/08/2021, Additional history exists Depression Screening 06/13/2023 06/12/2022 CKD HGB USE SMARTSET 33719 11/21/202311/20, 06/08/2022, 06/08/2022, Additional history exists DTaP,Tdap,and Td Vaccines (2 - Td or Tdap) 08/14/2024 08/14/2014, 01/25/2000 Pneumococcal Vaccine: 65+ Years Completed 01/06/2015, 08/19/2007 VITAMIN D LEVEL ONCE IN A LIFETIME-USE SMARTSET# [id number] Completed 12/11/2018, 07/07/2018, 10/06/2010 Influenza Vaccine (FLU [...] this encounter Medical Devices Implanted Type Area Investigations Manager Device Identifier Shelf Expiration Date Model / Serial / Lot Lead Tempo Temp Pacing - [id number] Implanted:Qty: 1 on 09/20/2020 by Dimitri Maya MD at [facility] [employer] [id number] 06/28/2021 [id number] / / [id number] documented as of this encounter Visit Diagnoses Diagnosis Gastroesophageal reflux disease without esophagitis- Primary Esophageal reflux Hypothyroidism, unspecified type Atherosclerotic heart disease of [place] coronary artery with other forms of angina [...] the patient have Health Care Power of Inspecting Machine Adjuster? No Full Code 09/25/2020 6:44 PM 09/26/2020 [...] the patient have Health Care Power of Inspecting Machine Adjuster? No Care Teams Cash Poster Relationship Specialty Start Date End Date Kalen Ribeiro MD [address] [place] [address] PCP - General 12/15/01 documented as of this encounter"
--- OUTSIDE RECORDS SUMMARY | 2023-06-01 11:17 | External Medical Summary | Summary of Care ---
Author Name Unknown Organization [facility] Address [address] [place] [address] Phone [phone] Care Team Providers Care Head Of History Name Role Phone Kalen Ribeiro MD Primary Care Provider +1- [phone] Reason for Visit * Reason Comments Outpatient Testing Encounter Details Date Type Department Care Team Description 12/25/2022 Laboratory [facility] [address] [place] [address] [facility] [address] [place] [address] Encounter for long-term (current) use of medications; Hypothyroidism, unspecified type Allergies Active Allergy Reactions Severity Noted Date [...] aorta 07/14/2021 Atherosclerotic heart diseas e of [place] coronary artery with other forms of angina pectoris 07/14/2021 Age-related osteoporosis without current pathological fracture 07/14/2021 History of pulmonary embolism 06/08/2021 senior care current use of anticoagulant t herapy 02/09/2021 [...] Description 02/08/2023 Cardiac Studies Cardiology Rosalinda Caldera [facility] [address] [place] [address] 02/11/2023 Cardiac Studies Cardiac Studies 02/27/2023 Office Visit Cardiology Halley Preston CRNP [address] [place] [id number] 02/28/2023 Office Visit Orthopedics Chava Huff PA-C [address] [place] [address] 06/28/2023 Office Visit Family Medicine Kalen Ribeiro MD [address] [place] [address] Pending Results Name Type Priority Associated Diagnoses Date /Time MAGNESIUM Lab Routine Encounter for long-term (current) use of medications 12/25/2022 8:42 AM EDT TSH WITH FREE T4 IF INDICATED Lab Routine Hypothyroidism, unspecified type 12/25/2022 8:42 AM EDT Health Maintenance Due Date Last Done Comments Zoster Vaccines (2 of 3) 07/17/2007 05/22/2007 COVID-19 Vaccine ( season) 2022 12/26/2021, 02/14/2021, 06/09/2020, Additional history exists DXA Scan 02/14/2023 02/14/2021, 06/10, 07/21/2014, Additional history exists GFR 05/21/2023 11/20/2022, 05/11, 12/11/2021, Additional history exists Albumin/Creatinine Ratio 06/09/2023 06/08/2022, 05/11 CKD PHOS USE SMARTSET 50760 06/09/202305/11, 12/16/2020, 09/26/2020, Additional history exists TSH 06/09/2023 06/08/2022, 05/2021, 06/08/2021, Additional history exists Depression Screening 06/13/2023 06/12/2022 CKD HGB USE SMARTSET 49645 11/21/202311/20, 06/08/2022, 06/08/2022, Additional history exists DTaP,Tdap,and Td Vaccines (2 - Td or Tdap) 08/14/2024 08/14/2014, 01/25/2000 Pneumococcal Vaccine: 65+ Years Completed 01/06/2015, 08/19/2007 VITAMIN D LEVEL ONCE IN A LIFETIME-USE SMARTSET# [id number] Completed 12/11/2018, 07/07/2018, 10/06/2010 Influenza Vaccine (FLU [...] this encounter Medical Devices Implanted Type Area B2B Sales Manager Device Identifier Shelf Expiration Date Model / Serial / Lot Lead Tempo Temp Pacing - [id number] Implanted:Qty: 1 on 09/20/2020 by Dimitri Maya MD at [facility] [place] [id number] 06/28/2021 [id number] / / [id number] documented as of this encounter Visit Diagnoses Diagnosis Encounter for long-term (current) use of medications Encounter for long-term (current) use of other medications Hypothyroidism, unspecified type documented in this encounter Advance [...] the patient have Health Care Power of Revenue Enforcement Collection Agent? No Full Code 09/25/2020 6:44 PM [...] the patient have Health Care Power of Revenue Enforcement Collection Agent? No Care Teams Head Of History Relationship Specialty Start Date End Date Kalen Ribeiro MD [address] [place] [address] PCP - General 12/15/01 documented as of this encounter
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
--- NOTE | 2023-06-01 12:31 | Hospitalist Progress Note ---
Date of Service June 01, 2023 Assessment & Plan (1) Hypokalemia: Plan: 83-year-old lady with PMH of chronic diastolic heart failure [EF 60 to 64%, TTE 2023], SSS s/p PPM not on anticoagulation due to bleeding, valvular heart disease [severe s/p TAVR], nonocclusive CAD, HTN, HLD, pulmonary thromboembolism, HIT, GERD, hypothyroidism, history of temporal arteritis, chronic anemia [baseline hemoglobin of 10], C. difficile presented to the ED with complaint of 1 to 2 weeks of not feeling well associated with productive cough and body aches. She denies aspiration, chest pain, shortness of breath. She reports poor appetite at baseline. She is being managed for the following: Complicated bronchitis Sepsis POA: Likely secondary to above. Temperature and WBC and respiratory rate elevated at presentation. MRSA screen/lactate/respiratory viral panel WNL. Patient presenting with few weeks of not feeling well, junky cough, body aches. Patient complaining of productive cough of yellow to white sputum. WBC elevated at presentation. Lactate WNL. Patient has been started on doxycycline 05/31, continue. WBC trending down, temperature getting better, follow clinically. Follow admitting blood culture. Likely failure to thrive in an elderly Hypokalemia: Likely secondary to poor appetite. Patient reports having poor appetite at baseline, per EMR weight around 52.1 kg in February 2023, has decreased down to 43-46 at presentation this admission. Encourage p.o. intake. Dietitian consult. Monitor replete electrolytes Mild troponin elevation: Appears chronic versus likely demand ischemia secondary to acute illness. Patient with no chest pain. Continue telemetry monitoring. EKG with atrial sensed ventricular paced rhythm. Diabetes, new diagnosis: Appears history of prediabetes with past A1c being 6.1 and 5.6. A1c this admission 6.8. Will consult shoe salesperson, plan for dietary management in this frail lady. Repeat A1c in 3 months time. Other chronic medical conditions: Continue with/resume home meds as and when able. 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 difficile history status post vancomycin Rx PT OT eval, May need placement DVT prophylaxis. Arixtra (history of HIT) DNR Patient daughter Ms. Suri Gonzalez, contact #[phone]. Text document was generated using [employer] voice recognition software. It may contain grammatical or spelling errors. Kindly contact undersigned for clarification of any documentation item in question. Admission and Anticipated Discharge Date Admission Date: May 31, 2023 Subjective Patient was seen and examined at bedside. Patient was sitting up in chair, on room air, NAD, not in any acute distress. Patient reports not feeling well since about 2 weeks, reports increased cough since last few weeks, reports occasional clear and occasional yellow sputum. Patient reports poor appetite at baseline and reports overall decreased p.o. intake. Denies chest pain or palpitation or abdominal pain. Physical Exam Physical Exam: GENERAL: Comfortable, pleasant, slightly hard of hearing, no respiratory distress, appears lean/thin/frail. SKIN: Pallor, warm HEENT: Pale palpebral conjunctivae, no ptosis, moist buccal mucosa NECK : Supple, no tenderness CHEST : Decreased breath sounds, no tenderness HEART : RRR, systolic murmur ABDOMEN: no distention, nontender EXTREMITIES : No LE swelling/tenderness, no other conspicuous deformities noted NEUROLOGIC : Coherent, no facial asymmetry, hearing impairment, gait and stance not assessed Results & Data Results & Data Vital Signs (Past 12 Hours) Vital Signs Temp Pulse Pulse Resp BP BP Pulse Ox 06/01/23 12:11 36.9 C 85 17 143/77 H 98 06/01/23 07:32 36.3 C L 60 17 122/72 98 06/01/23 02:06 06/01/23 01:57 36.4 C L 61 19 122/66 97 06/01/23 00:30 63 22 110/66 97 O2 Del Method O2 Flow Rate 06/01/23 12:11 Room Air 06/01/23 07:32 Room Air 06/01/23 02:06 Room Air 0 06/01/23 01:57 Room Air 06/01/23 00:30
[2023-06-01] MEDS: DOXYCYCLINE HYCLATE 100 MG CAP PO SCH (21:09)
[2023-06-01] MEDS: MIRTAZAPINE TAB 15 MG TAB PO SCH (21:09)
[2023-06-01] MEDS: ATORVASTATIN 20 MG TAB PO SCH (21:09)
[2023-06-02 05:12] LABS: Hematocrit (blood only) 28.5 % (37.0-47.0); Hemoglobin 8.8 g/dl (12.0-16.0); Mean Corpuscular Hemoglobin 28.3 pg (25.0-34.0); Mean Corpuscular Hgb Conc 30.9 g/dL (32.0-36.0); Mean Corpuscular Volume 91.6 fL (80.0-100.0); Mean Platelet Volume 9.6 fL (9.4-12.4); Platelet Count 322 K/uL (130-400); RDW Coefficient of Variation 15.9 % (11.5-14.5); Red Blood Count 3.11 M/uL (4.20-5.40); White Blood Count 11.94 K/ul (4.8-10.8)
[2023-06-02 05:25] LABS: Albumin Globulin Ratio 0.8 (0.9-2); Albumin Level 2.2 gm/dl (3.4-5.0); BUN Creatinine Ratio 20.5 (10-20); Bilirubin,Total 0.4 mg/dl (0.2-1.0); Calcium 7.9 mg/dl (8.6-10.3); Creatinine Clr Calc Pharmacy 35.1 ml/min; Est GFR (African American) 76.6 ml/min; Est GFR (Non-African American) 66.1 ml/min; Globulin 2.8 gm/dl (2.5-4.0); Magnesium 1.8 mg/dl (1.7-2.4); Phosphorus 2.4 mg/dl (2.5-4.9); Potassium 4.1 mmol/L (3.5-5.1)
[2023-06-02] MEDS: POT PHOSPHATE MONOBASIC W/ SOD TAB PO SCH (10:23)
--- NOTE | 2023-06-02 13:42 | Hospitalist Progress Note ---
Date of Service June 02, 2023 Assessment & Plan (1) Hypokalemia: Plan: 83-year-old lady with PMH of chronic diastolic heart failure [EF 60 to 64%, TTE 2023], SSS s/p PPM not on anticoagulation due to bleeding, valvular heart disease [severe s/p TAVR], nonocclusive CAD, HTN, HLD, pulmonary thromboembolism, HIT, GERD, hypothyroidism, history of temporal arteritis, chronic anemia [baseline hemoglobin of 10], C. difficile presented to the ED with complaint of 1 to 2 weeks of not feeling well associated with productive cough and body aches. She denies aspiration, chest pain, shortness of breath. She reports poor appetite at baseline. She is being managed for the following: Complicated bronchitis Sepsis POA: Likely secondary to above. Temperature and WBC and respiratory rate elevated at presentation. MRSA screen/lactate/respiratory viral panel WNL. Patient presenting with few weeks of not feeling well, junky cough, body aches. Patient complaining of productive cough of yellow to white sputum. WBC elevated at presentation. Lactate WNL. Patient has been started on doxycycline 05/31, continue. WBC trending down, temperature getting better, follow clinically. Follow admitting blood culture. Likely failure to thrive in an elderly Hypokalemia: Likely secondary to poor appetite. Patient reports having poor appetite at baseline, per EMR weight around 52.1 kg in February 2023, has decreased down to 43-46 Kg at presentation this admission. Encourage p.o. intake. Dietitian consult. Monitor replete electrolytes Mild troponin elevation: Appears chronic versus likely demand ischemia secondary to acute illness. Patient with no chest pain. Continue telemetry monitoring. EKG with atrial sensed ventricular paced rhythm. Diabetes, new diagnosis: Appears history of prediabetes with past A1c being 6.1 and 5.6. A1c this admission 6.8. Will consult life educator, plan for dietary management in this frail lady. Repeat A1c in 3 months time. Other chronic medical conditions: Continue with/resume home meds as and when able. 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 difficile history status post vancomycin Rx PT OT eval, May need placement DVT prophylaxis. Arixtra (history of HIT) DNR Patient daughter Ms. Suri Gonzalez, contact #[phone]. Text document was generated using [employer] voice recognition software. It may contain grammatical or spelling errors. Kindly contact undersigned for clarification of any documentation item in question. Admission and Anticipated Discharge Date Admission Date: May 31, 2023 Subjective Patient was seen and examined at bedside. Patient was sitting up in chair, on room air, NAD, not in any acute distress. Patient reports cough getting better and strength getting better. Per RN patient has decent appetite compared to her baseline. Patient reports improving appetite here. Denies chest pain or palpitation or abdominal pain. Physical Exam Physical Exam: GENERAL: Comfortable, pleasant, slightly hard of hearing, no respiratory distress, appears lean/thin/frail. SKIN: Pallor, warm HEENT: Pale palpebral conjunctivae, no ptosis, moist buccal mucosa NECK : Supple, no tenderness CHEST : Decreased breath sounds, no tenderness HEART : RRR, systolic murmur ABDOMEN: no distention, nontender EXTREMITIES : No LE swelling/tenderness, no other conspicuous deformities noted NEUROLOGIC : Coherent, no facial asymmetry, hearing impairment, gait and stance not assessed Results & Data Results & Data Vital Signs (Past 12 Hours) Vital Signs Temp Pulse Resp BP BP Pulse Ox O2 Del Method 06/02/23 07:18 36.7 C 72 17 113/72 96 Room Air 06/02/23 03:00 36.6 C 68 18 121/74 94 Room Air
[2023-06-02 22:58] LABS: Cdiff Toxin B Gene (2yr or >) Positive Cdiff Gene (Neg)
[2023-06-02 23:05] LABS: Cdiff Antigen Negative; Cdiff Toxin A+B Negative Cdiff Toxin (Negative)
[2023-06-03 05:31] LABS: Albumin Globulin Ratio 0.8 (0.9-2); Albumin Level 2.4 gm/dl (3.4-5.0); BUN Creatinine Ratio 16.5 (10-20); Bilirubin,Total 0.5 mg/dl (0.2-1.0); Calcium 7.7 mg/dl (8.6-10.3); Creatinine Clr Calc Pharmacy 26.1 ml/min; Est GFR (Non-African American) 50.9 ml/min; Globulin 2.9 gm/dl (2.5-4.0); Magnesium 1.6 mg/dl (1.7-2.4); Phosphorus 4.6 mg/dl (2.5-4.9); Potassium 3.5 mmol/L (3.5-5.1); Total Protein 5.3 gm/dl (6.0-8.3)
[2023-06-03] MEDS: MAGNESIUM SULFATE / D5W 1 GM/100 ML BAG IV SCH (09:42)
[2023-06-03] MEDS: POTASSIUM CHLORIDE 20 MEQ/15 ML UDC PO STA (10:57)
[2023-06-03] MEDS: CHERRY SYRUP 5 ML UDP PO SCH (11:49)
[2023-06-03] MEDS: VANCOMYCIN HCL 125 MG/2.5ML SOLN PO SCH (11:49)
[2023-06-03] MEDS: POTASSIUM CHLORIDE CRTAB 20 MEQ TABCR PO STA (12:20)
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
[2023-06-03] MEDS: PSYLLIUM or GUAR GUM FIBER POWDER PACKET PO SCH (14:34)
--- NOTE | 2023-06-03 16:02 | Hospitalist Progress Note ---
Date of Service June 03, 2023 Assessment & Plan (1) Hypokalemia: Plan: 83-year-old lady with PMH of chronic diastolic heart failure [EF 60 to 64%, TTE 2023], SSS s/p PPM not on anticoagulation due to bleeding, valvular heart disease [severe s/p TAVR], nonocclusive CAD, HTN, HLD, pulmonary thromboembolism, HIT, GERD, hypothyroidism, history of temporal arteritis, chronic anemia [baseline hemoglobin of 10], C. difficile presented to the ED with complaint of 1 to 2 weeks of not feeling well associated with productive cough and body aches. She denies aspiration, chest pain, shortness of breath. She reports poor appetite at baseline. She is being managed for the following: Complicated bronchitis Sepsis POA: Likely secondary to above. Temperature and WBC and respiratory rate elevated at presentation. MRSA screen/lactate/respiratory viral panel WNL. Patient presenting with few weeks of not feeling well, junky cough, body aches. Patient complaining of productive cough of yellow to white sputum. WBC elevated at presentation. Lactate WNL. Patient has been started on doxycycline 05/31, continue. WBC trending down, temperature getting better, follow clinically. Follow admitting blood culture - NG so far. Likely failure to thrive in an elderly Hypokalemia: Likely secondary to poor appetite. Patient reports having poor appetite at baseline, per EMR weight around 52.1 kg in February 2023, has decreased down to 43-46 Kg at presentation this admission. Encourage p.o. intake. Dietitian consult. Monitor replete electrolytes. Pt w/ very poor appetite at baseline, rameron was recently started. Loose stool: pt w/ multiple loose stools. Recent C diff and Rx. PO vanco empirically started 06/02. psyllium and cholestyramine. GI consult, appreciate recs. Mild troponin elevation: Appears chronic versus likely demand ischemia secondary to acute illness. Patient with no chest pain. Continue telemetry monitoring. EKG with atrial sensed ventricular paced rhythm. Concern for Diabetes, new diagnosis: A1c this admission 6.8; h/o prediabetes. D/w striper spray gun - since pt w/ chronic anemia, A1c likely inaccurate. All glucose levels are <126. New DM diagnosis ruled out. f/u A1c in 3 months. Other chronic medical conditions: Continue with/resume home meds as and when able. 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 difficile history status post vancomycin Rx PT OT eval, May need placement DVT prophylaxis. Arixtra (history of HIT) DNR Patient daughter Ms. Suri Gonzalez, contact #[phone]. Updated 05/13 - 20 minutes, requested ID consult. Time spent evaluating patient, direct bedside care, chart review, placing orders, interpretation of diagnostic studies, discussion with consultants, patient, and family members, as well as other required patient management activities is _72___ minutes. Please note the above document was generated using voice recognition software. It may contain grammatical, syntax or spelling errors. Any formal questions or concerns about the content, text or information contained within the body of this dictation should be directly addressed to the undersigned for [place]. Admission and Anticipated Discharge Date Admission Date: May 31, 2023 Subjective Patient was seen and examined at bedside. Patient was lying in bed, on room air, NAD, resting comfortably. Per RN patient ate 75% of her breakfast in the morning. Had several loose stools yesterday, again had 1 more loose stool later in the morning today. C. difficile came back positive, will start p.o. vancomycin empirically. Given call to patient's daughter Suri, answered all her queries, she requested infectious disease consult because the patient has been getting recurrent infection. Spent about 20 minutes over the phone conversation. Requested her to be in the hospital tomorrow so that we can discuss again in detail in person. She agreed. Patient herself feels better, reports improving cough, reports sputum getting clear. Patient denies any difficulty swallowing or abdominal pain. Denies chest pain or palpitation or abdominal pain. Physical Exam Physical Exam: GENERAL: Comfortable, pleasant, slightly hard of hearing, no respiratory distress, appears lean/thin/frail. SKIN: Pallor, warm HEENT: Pale palpebral conjunctivae, no ptosis, moist buccal mucosa NECK : Supple, no tenderness CHEST : Decreased breath sounds, no tenderness HEART : RRR, systolic murmur ABDOMEN: no distention, nontender EXTREMITIES : No LE swelling/tenderness, no other conspicuous deformities noted NEUROLOGIC : Coherent, no facial asymmetry, hearing impairment, gait and stance not assessed Results & Data Results & Data Vital Signs (Past 12 Hours) Vital Signs Temp Pulse Pulse Resp BP Pulse Ox O2 Del Method 06/03/23 15:35 36.7 C 65 19 111/66 98 Room Air 06/03/23 11:22 36.4 C L 61 18 106/63 94 Room Air 06/03/23 07:44 37.1 C 72 18 111/66 95 Room Air 06/03/23 07:29 70
[2023-06-03] MEDS: ACETAMINOPHEN 325 MG TAB PO PRN (19:52)
[2023-06-03] MEDS: CHOLESTYRAMINE LIGHT 4 GM PKT PO SCH (23:47)
[2023-06-04 05:45] LABS: BUN Creatinine Ratio 17.5 (10-20); Calcium 7.5 mg/dl (8.6-10.3); Creatinine Clr Calc Pharmacy 30.5 ml/min; Est GFR (African American) 63.5 ml/min; Est GFR (Non-African American) 54.8 ml/min; Magnesium 2.2 mg/dl (1.7-2.4); Potassium 4.2 mmol/L (3.5-5.1)
[2023-06-04] MEDS: CEROVITE ADV FORMULA TAB PO SCH (09:35)
[2023-06-04] MEDS: FOLIC ACID 1 MG TAB PO SCH (10:28)
[2023-06-04] MEDS: THIAMINE HCL 100 MG TAB PO SCH (10:29)
--- NOTE | 2023-06-04 10:36 | Gastroenterology Progress Note ---
Date of Service June 04, 2023 Assessment & Plan (1) Diarrhea: Plan: Post c-diff infection, now gene (+), toxin (-) in the setting of current antibiotic use. No clinical suggestion of colitis. Plan Continue cholestyramine BID. If continuous with diarrhea in the next few days can add Imodium as needed. Will watch peripherally. Please notify GI if new questions or symptoms. Admission and Anticipated Discharge Date Admission Date: May 31, 2023 Supervising Physician Co-Signing Physician Notes Attg add: Pt with stool studies PCR pos tox neg with diarrhea. Agree with cholestyramine, ? need for vanco. Please call with questions. Subjective 83-year-old female admitted for pneumonia. GI consulted for liquid diarrhea -clinically significant likely causing hypokalemia though only having 1-3 liquid bowel movements per day. C. difficile gene positive, toxin negative. Had prior C. difficile infection a month ago. Began cholestyramine twice daily yesterday. On Vanco 4 times daily Thus far, no significant improvement as she has passed 2 moderate-sized liquid bowel movements this morning. Review of Systems Review of Systems: ROS: Gen: Poor po intake, weakness x 2 months, no fevers Eyes: No eye redness, or pain, no recent vision changes Resp: + cough Cardio: No palpitations/irregular beats, no chest pain GI: No N/V, no abd pain, + 1-2 liquid BMs/day for about a weeks. : Denies pain on urination Skin: No jaundice, itching or new rashes Physical Exam Constitutional: Frail appearing. Awake alert oriented. Able to sit up on chair bedside. Denies abdominal discomfort. Eyes: PERRL, conjunctivae normal, anicteric sclerae ENMT: external ear and nose normal, oropharynx normal Neck: trachea midline, no thyromegaly Respiratory: normal respiratory effort, lungs clear to auscultation Cardiovascular: RRR, no murmur, no edema Gastrointestinal (Abdomen): normal bowel sounds, soft, nontender, no hepatosplenomegaly Skin: no rashes, warm and dry Neurologic: PERRL, EOMI, accommodation nl, no face palsy, no dysarthria Psychiatric: A+Ox3, euthymic affect Lymphatic: no cervical or axillary lymphadenopathy Results & Data Vital Signs (Past 12 Hours) Vital Signs Temp Pulse Pulse Resp BP Pulse Ox O2 Del Method 06/04/23 10:21 71 06/04/23 08:28 104 H 95 Room Air 06/04/23 07:39 36.9 C 19 134/82 Room Air 06/04/23 04:00 36.3 C L 63 16 124/77 96 Room Air 06/03/23 23:20 36.3 C L 67 20 114/66 94 Room Air 06/03/23 22:37 58 L Laboratory Results 06/04/23 Range/Units 04:19 Sodium 139 (136-145) mmol/L Potassium 4.2 (3.5-5.1) mmol/L Chloride 108 H (98-107) mmol/L Carbon Dioxide 23 (21-32) mmol/L Anion Gap 8 (3-11) BUN 17 (6-23) mg/dl Creatinine 0.97 (0.6-1.2) mg/dl Est Cr Clr Drug Dosing 30.5 ml/min Est GFR ( Amer) 63.5 ml/min Est GFR (Non-Af Amer) 54.8 ml/min BUN/Creatinine Ratio 17.5 (10-20) Glucose 93 (70-99(Fasting)) mg/dl Calcium 7.5 L (8.6-10.3) mg/dl Phosphorus 5.0 H (2.5-4.9) mg/dl Magnesium 2.2 (1.7-2.4) mg/dl Diagnostic Findings CTAP with IV contrast 05/31/2023: Intraperitoneal space: Unremarkable. No free air. No significant fluid collection. Bones/joints: Multilevel degenerative disease of the lower lumbar spine. No acute fracture. No dislocation. Soft tissues: Unremarkable. Vasculature: Unremarkable. No abdominal aortic aneurysm. Lymph nodes: Unremarkable. No enlarged lymph nodes. Tubes, lines and devices: Solid abdominal organs are unremarkable. No leakage cardioactive device. CTA chest 05/31/2019o acute findings in the visualized arteries of the chest.
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
[2023-06-04 12:36] LABS: Folate (Folic Acid),Ser orPlas 16.7 ng/ml (>5.38)
--- NOTE | 2023-06-04 15:40 | Hospitalist Progress Note ---
Date of Service June 04, 2023 Assessment & Plan (1) Hypokalemia: Plan: 83-year-old lady with PMH of chronic diastolic heart failure [EF 60 to 64%, TTE 2023], SSS s/p PPM not on anticoagulation due to bleeding, valvular heart disease [severe s/p TAVR], nonocclusive CAD, HTN, HLD, pulmonary thromboembolism, HIT, GERD, hypothyroidism, history of temporal arteritis, chronic anemia [baseline hemoglobin of 10], C. difficile presented to the ED with complaint of 1 to 2 weeks of not feeling well associated with productive cough and body aches. She denies aspiration, chest pain, shortness of breath. She reports poor appetite at baseline. She is being managed for the following: Complicated bronchitis Sepsis POA: Likely secondary to above. Temperature and WBC and respiratory rate elevated at presentation. MRSA screen/lactate/respiratory viral panel WNL. Patient presenting with few weeks of not feeling well, junky cough, body aches. Patient complaining of productive cough of yellow to white sputum. WBC elevated at presentation. Lactate WNL. Patient has been started on doxycycline 05/31, continue for 7 days. WBC trending down, temperature getting better, follow clinically. Follow admitting blood culture - NG so far. Pt reports improving cough, clear sputum. Likely failure to thrive in an elderly Likely severe malnutrition Hypokalemia: Likely secondary to poor appetite. Patient reports having poor appetite at baseline, per EMR weight around 52.1 kg in February 2023, has decreased down to 43-46 Kg at presentation this admission. Encourage p.o. intake. Dietitian consult. Monitor replete electrolytes. Pt w/ very poor appetite at baseline, rameron was recently started. No improvement in intake has been noted. see subjective 06/03 - pt and her dtr not interested in alternative nutrition methods at this time. Will likely stop statin if pt and her dtr chooses route of comfort/palliative megestrol contraindicated in the patient. Goals of care discussion: see subjective 06/03. Consult palliative. Loose stool: pt w/ multiple loose stools. Recent C diff and Rx. PO vanco empirically started 06/02 - c/w 1 week after doxy therapy ends. psyllium and cholestyramine. GI evaled, appreciate recs. Mild troponin elevation: Appears chronic versus likely demand ischemia secondary to acute illness. Patient with no chest pain. Continue telemetry monitoring. EKG with atrial sensed ventricular paced rhythm. Concern for Diabetes, new diagnosis - ruled out: A1c this admission 6.8; h/o prediabetes. D/w staff development educator - since pt w/ chronic anemia, A1c likely inaccurate. All glucose levels are <126. New DM diagnosis ruled out. f/u A1c in 3 months. Other chronic medical conditions: Continue with/resume home meds as and when able. 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 difficile history status post vancomycin Rx PT OT eval, May need placement DVT prophylaxis. Maryjane (history of HIT) DNR Patient daughter Ms. Suri Gonzalez, contact #[phone]. Updated 05/13 and 05/14. Time spent evaluating patient, direct bedside care, chart review, placing orders, interpretation of diagnostic studies, discussion with consultants, patient, and family members, as well as other required patient management activities is _85___ minutes. Please note the above document was generated using voice recognition software. It may contain grammatical, syntax or spelling errors. Any formal questions or concerns about the content, text or information contained within the body of this dictation should be directly addressed to the undersigned for clarification. Admission and Anticipated Discharge Date Admission Date: May 31, 2023 Subjective Patient was seen and examined at bedside. Patient was lying in bed, on room air, NAD, resting comfortably. Patient continues to report lack of hunger. Denies any difficulty swallowing or choking on food or trouble swallowing. Patient denies any abdominal pain. Patient denies any febrile illness or headache or dizziness. Patient reports improving cough and color of the sputum. Per RN, 2 loose stools today morning. Patient reports not wanting to eat breakfast in the morning. Discussed with infectious disease, plan to continue with vancomycin for 1 week after completion of doxycycline therapy. Plan to continue doxycycline for total of 1 week. Discussed with patient's daughter Suri at bedside. About 20 to 25 minutes spent at bedside discussion aside from bedside exam performed earlier today. We went over her sequence of events since March, I had re reviewed her chart completely prior to our meeting. 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 MRI brain was performed in April 16, 2023 with no new acute finding. She had been extensively evaluated in her prior admissions. No clear cause for poor appetite was found, patient was started on Remeron which she has been taking but no clear improvement in her intake has been noted. We discussed about megestrol acetate and she being at risks of increased blood clots if we were to start this medication given her history of thromboembolic event. We also discussed about dronabinol increasing the risks of seizure and interacting with medications like metronidazole. Suri did not like megestrol acetate and dronabinol be started on the patient. Suri was explained in detail the consequences of failure to thrive and offered alternative nutrition including NG tube/parenteral nutrition/PEG tube. Suri was not interested in alternative nutrition for the time being, and she is interested in discussing with palliative care for goals of care discussion. Palliative care will be consulted. Suri is agreeable for me to stop the statin she chooses the route of palliative approach after discussion w/ palliative care. Physical Exam Physical Exam: GENERAL: Comfortable, pleasant, slightly hard of hearing, no respiratory distress, appears lean/thin/frail. SKIN: Pallor, warm HEENT: Pale palpebral conjunctivae, no ptosis, moist buccal mucosa NECK : Supple, no tenderness CHEST : Decreased breath sounds, no tenderness HEART : RRR, systolic murmur ABDOMEN: no distention, nontender EXTREMITIES : No LE swelling/tenderness, no other conspicuous deformities noted NEUROLOGIC : Coherent, no facial asymmetry, hearing impairment, gait and stance not assessed Results & Data Results & Data Vital Signs (Past 12 Hours) Vital Signs Temp Pulse Pulse Resp BP Pulse Ox O2 Del Method 06/04/23 11:55 36.8 C 75 19 93/57 L 94 Room Air 06/04/23 10:36 Room Air 06/04/23 10:21 71 06/04/23 08:28 104 H 95 Room Air 06/04/23 07:39 36.9 C 19 134/82 Room Air 06/04/23 04:00 36.3 C L 63 16 124/77 96 Room Air
[2023-06-05 06:21] LABS: Hematocrit (blood only) 27.5 % (37.0-47.0); Hemoglobin 8.7 g/dl (12.0-16.0); Mean Corpuscular Hemoglobin 28.7 pg (25.0-34.0); Mean Corpuscular Hgb Conc 31.6 g/dL (32.0-36.0); Mean Corpuscular Volume 90.8 fL (80.0-100.0); Mean Platelet Volume 9.9 fL (9.4-12.4); Platelet Count 294 K/uL (130-400); RDW Coefficient of Variation 16.3 % (11.5-14.5); RDW Standard Deviation 53.1 fL (36.4-46.3); Red Blood Count 3.03 M/uL (4.20-5.40); White Blood Count 12.86 K/ul (4.8-10.8)
[2023-06-05 06:53] LABS: Calcium 7.4 mg/dl (8.6-10.3); Potassium 3.9 mmol/L (3.5-5.1)
[2023-06-05 06:58] LABS: BUN Creatinine Ratio 19.8 (10-20); Creatinine Clr Calc Pharmacy 32.5 ml/min; Est GFR (African American) 68.6 ml/min; Est GFR (Non-African American) 59.2 ml/min
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
--- NOTE | 2023-06-05 14:46 | Hospitalist Progress Note ---
Date of Service June 05, 2023 Assessment & Plan (1) Hypokalemia: Plan: 83-year-old lady with PMH of chronic diastolic heart failure [EF 60 to 64%, TTE 2023], SSS s/p PPM not on anticoagulation due to bleeding, valvular heart disease [severe s/p TAVR], nonocclusive CAD, HTN, HLD, pulmonary thromboembolism, HIT, GERD, hypothyroidism, history of temporal arteritis, chronic anemia [baseline hemoglobin of 10], C. difficile presented to the ED with complaint of 1 to 2 weeks of not feeling well associated with productive cough and body aches. She denies aspiration, chest pain, shortness of breath. She reports poor appetite at baseline. She is being managed for the following: Complicated bronchitis Sepsis POA: Likely secondary to above. Temperature and WBC and respiratory rate elevated at presentation. MRSA screen/lactate/respiratory viral panel WNL. Patient presenting with few weeks of not feeling well, junky cough, body aches. Patient complaining of productive cough of yellow to white sputum. WBC elevated at presentation. Lactate WNL. Patient has been started on doxycycline 05/31, continue for 7 days. WBC trending down, temperature getting better, follow clinically. Follow admitting blood culture - NG so far. Pt reports improving cough, clear sputum. Likely failure to thrive in an elderly Likely severe malnutrition Hypokalemia: Likely secondary to poor appetite. Patient reports having poor appetite at baseline, per EMR weight around 52.1 kg in February 2023, has decreased down to 43-46 Kg at presentation this admission. Encourage p.o. intake. Dietitian consult. Monitor replete electrolytes. Pt w/ very poor appetite at baseline, rameron was recently started. No improvement in intake has been noted. see subjective 06/03 - pt and her dtr not interested in alternative nutrition methods at this time. Will likely stop statin if pt and her dtr chooses route of comfort/palliative megestrol contraindicated in the patient. Goals of care discussion: see subjective 06/03. Consult palliative. Loose stool: pt w/ multiple loose stools. Recent C diff and Rx. PO vanco empirically started 06/02 - c/w 1 week after doxy therapy ends. psyllium and cholestyramine. GI evaled, appreciate recs. Mild troponin elevation: Appears chronic versus likely demand ischemia secondary to acute illness. Patient with no chest pain. Continue telemetry monitoring. EKG with atrial sensed ventricular paced rhythm. Concern for Diabetes, new diagnosis - ruled out: A1c this admission 6.8; h/o prediabetes. D/w natural resources extension educator - since pt w/ chronic anemia, A1c likely inaccurate. All glucose levels are <126. New DM diagnosis ruled out. f/u A1c in 3 months. Other chronic medical conditions: Continue with/resume home meds as and when able. 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 difficile history status post vancomycin Rx PT OT eval, May need placement DVT prophylaxis. Maryjane (history of HIT) DNR Patient daughter Ms. Suri Gonzalez, contact #[phone]. Updated 05/13 and 05/14. Time spent evaluating patient, direct bedside care, chart review, placing orders, interpretation of diagnostic studies, discussion with consultants, patient, and family members, as well as other required patient management activities is _55___ minutes. Please note the above document was generated using voice recognition software. It may contain grammatical, syntax or spelling errors. Any formal questions or concerns about the content, text or information contained within the body of this dictation should be directly addressed to the undersigned for clarification. Admission and Anticipated Discharge Date Admission Date: May 31, 2023 Subjective Patient was seen and examined at bedside. Patient was lying in bed, on room air, NAD, resting comfortably. Patient continues to report lack of hunger. Denies any difficulty swallowing or choking on food or trouble swallowing. Patient denies any abdominal pain. Patient denies any febrile illness or headache or dizziness. Patient reports improving cough and color of the sputum. Per RN, no BM lizz morning. Physical Exam Physical Exam: GENERAL: Comfortable, pleasant, slightly hard of hearing, no respiratory distress, appears lean/thin/frail. SKIN: Pallor, warm HEENT: Pale palpebral conjunctivae, no ptosis, moist buccal mucosa NECK : Supple, no tenderness CHEST : Decreased breath sounds, no tenderness HEART : RRR, systolic murmur ABDOMEN: no distention, nontender EXTREMITIES : No LE swelling/tenderness, no other conspicuous deformities noted NEUROLOGIC : Coherent, no facial asymmetry, hearing impairment, gait and stance not assessed Results & Data Results & Data Vital Signs (Past 12 Hours) Vital Signs Temp Pulse Resp BP Pulse Ox O2 Del Method 06/05/23 14:26 36.7 C 104 H 20 102/64 92 Room Air 06/05/23 11:18 37.5 C 76 20 127/75 98 Room Air 06/05/23 08:25 Room Air 06/05/23 07:48 36.4 C L 77 20 111/73 98 Room Air 06/05/23 03:42 36.5 C 63 16 113/67 97 Room Air
[2023-06-06 05:07] LABS: Hematocrit (blood only) 27.7 % (37.0-47.0); Hemoglobin 8.7 g/dl (12.0-16.0); Mean Corpuscular Hemoglobin 28.4 pg (25.0-34.0); Mean Corpuscular Hgb Conc 31.4 g/dL (32.0-36.0); Mean Corpuscular Volume 90.5 fL (80.0-100.0); Mean Platelet Volume 9.8 fL (9.4-12.4); Platelet Count 330 K/uL (130-400); RDW Coefficient of Variation 15.5 % (11.5-14.5); RDW Standard Deviation 50.4 fL (36.4-46.3); Red Blood Count 3.06 M/uL (4.20-5.40); White Blood Count 15.19 K/ul (4.8-10.8)
[2023-06-06 05:30] LABS: BUN Creatinine Ratio 18.3 (10-20); Calcium 7.9 mg/dl (8.6-10.3); Creatinine Clr Calc Pharmacy 31.8 ml/min; Est GFR (African American) 66.8 ml/min; Est GFR (Non-African American) 57.6 ml/min; Magnesium 1.8 mg/dl (1.7-2.4); Phosphorus 2.6 mg/dl (2.5-4.9); Potassium 4.1 mmol/L (3.5-5.1)
--- NOTE | 2023-06-06 14:36 | Hospitalist Progress Note ---
Date of Service June 06, 2023 Assessment & Plan (1) Hypokalemia: Plan: 83-year-old lady with PMH of chronic diastolic heart failure [EF 60 to 64%, TTE 2023], SSS s/p PPM not on anticoagulation due to bleeding, valvular heart disease [severe s/p TAVR], nonocclusive CAD, HTN, HLD, pulmonary thromboembolism, HIT, GERD, hypothyroidism, history of temporal arteritis, chronic anemia [baseline hemoglobin of 10], C. difficile presented to the ED with complaint of 1 to 2 weeks of not feeling well associated with productive cough and body aches. She denies aspiration, chest pain, shortness of breath. She reports poor appetite at baseline. She is being managed for the following: Complicated bronchitis Sepsis POA: Likely secondary to above. Temperature and WBC and respiratory rate elevated at presentation. MRSA screen/lactate/respiratory viral panel WNL. Patient presenting with few weeks of not feeling well, junky cough, body aches. Patient complaining of productive cough of yellow to white sputum. WBC elevated at presentation. Lactate WNL. Has been on doxycycline since and will be continued for 7 days in total . Blood cultures have been negative Clinically better with improvement of cough and shortness of breath Likely failure to thrive in an elderly Likely severe malnutrition Hypokalemia: Likely secondary to poor appetite. Patient reports having poor appetite at baseline, per EMR weight around 52.1 kg in February 2023, has decreased down to 43-46 Kg at presentation this admission. Encourage p.o. intake. Dietitian consult. Monitor replete electrolytes. Pt w/ very poor appetite at baseline, rameron was recently started. No improvement in intake has been noted. see subjective 06/03 - pt and her dtr not interested in alternative nutrition methods at this time. Remains medically stable and wanted to have more food and drink as advised Goals of care discussion: see subjective 06/03. Consult palliative. Appreciate palliative care input and recommendation Full discussion with the daughter with the palliative care has been pending Loose stool: pt w/ multiple loose stools. Recent C diff and Rx. PO vanco empirically started 06/02 - c/w 1 week after doxy therapy ends. psyllium and cholestyramine. GI evaled, appreciate recs. Denies any more diarrhea Mild troponin elevation: Appears chronic versus likely demand ischemia secondary to acute illness. Patient with no chest pain. Continue telemetry monitoring. EKG with atrial sensed ventricular paced rhythm. Concern for Diabetes, new diagnosis - ruled out: A1c this admission 6.8; h/o prediabetes. D/w personal development educator - since pt w/ chronic anemia, A1c likely inaccurate. All glucose levels are <126. New DM diagnosis ruled out. f/u A1c in 3 months. Other chronic medical conditions: Continue with/resume home meds as and when able. 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 difficile history status post vancomycin Rx PT OT eval, May need placement DVT prophylaxis. Maryjane (history of HIT) DNR Patient daughter Ms. Suri Gonzalez, contact #[phone]. Updated 05/13 and 05/14. Time spent evaluating patient, direct bedside care, chart review, placing orders, interpretation of diagnostic studies, discussion with consultants, patient, and family members, as well as other required patient management activities is _55___ minutes. Please note the above document was generated using voice recognition software. It may contain grammatical, syntax or spelling errors. Any formal questions or concerns about the content, text or information contained within the body of this dictation should be directly addressed to the undersigned for clarification. Admission and Anticipated Discharge Date Admission Date: May 31, 2023 Subjective 06/06/2023 The patient was seen and examined in medical telemetry unit She has been feeling much better and has been trying to eat and drink more Denies any significant symptoms except weakness Awaiting PT and OT evaluation Review of Systems Review of Systems: All systems reviewed and are unremarkable except as noted below Physical Exam Physical Exam: Lying in bed comfortably Constitutional: + ill appearing and + thin Eyes: PERRL, conjunctivae normal, anicteric sclerae ENMT: external ear and nose normal, oropharynx normal Neck: trachea midline, no thyromegaly Respiratory: no respiratory distress Auscultation: lungs clear to auscultation bilaterally; no crackles Cardiovascular: Rate/Rhythm: regular rate and regular rhythm; not tachycardic Heart Sounds: normal S1, normal S2 and + murmur Extremities: no edema Gastrointestinal (Abdomen): Inspection/Auscultation: normal bowel sounds; abdomen not distended Percussion/Palpation: abdomen soft; abdomen nontender Musculoskeletal: No acute arthritis involving any of the joint Neurologic: normal touch/pain/proprioception and moves all extremities; no focal motor deficits Generally very weak and lethargic Lymphatic: no cervical or axillary lymphadenopathy Results & Data Results & Data Vital Signs (Past 12 Hours) Vital Signs Temp Pulse Pulse Resp BP BP Pulse Ox 06/06/23 11:43 71 16 117/77 99 06/06/23 07:21 36.7 C 76 16 108/64 95 06/06/23 07:00 75 06/06/23 04:00 36.9 C 75 18 116/69 94 O2 Del Method 06/06/23 11:43 Room Air 06/06/23 07:21 Room Air 06/06/23 07:00 06/06/23 04:00 Room Air Laboratory Results Short CBC 06/06/23 Range/Units 04:23 WBC 15.19 H (4.8-10.8) K/ul Hgb 8.7 L (12.0-16.0) g/dl Hct 27.7 L (37.0-47.0) % Plt Count 330 (130-400) K/uL BMP 06/06/23 04:23 Sodium 136 Potassium 4.1 Chloride 108 H Carbon Dioxide 22 BUN 17 Creatinine 0.93 Glucose 87 Calcium 7.9 L Medications Administered Current Inpatient Medications Acetaminophen (Acetaminophen 325 Mg Tab) 650 mg PO Q4H PRN PRN Reason: Pain or Fever Stop: 07/01/23 01:55 Last Admin: 06/03/23 19:52 Dose: 650 mg Aspirin (Aspirin 81 Mg Chew) 81 mg PO QAM [facility] Stop: 07/01/23 08:59 Last Admin: 06/06/23 07:33 Dose: 81 mg Atorvastatin Calcium (Atorvastatin 20 Mg Tab) 20 mg PO PM [facility] Stop: 07/01/23 20:59 Last Admin: 06/05/23 20:44 Dose: 20 mg [place] Syrup ([place] Syrup 5 Ml Udp) 5 ml PO Q6 [facility] Stop: 06/13/23 11:59 Last Admin: 06/06/23 11:36 Dose: 5 ml Cholestyramine Resin (Cholestyramine Light 4 Gm Pkt) 4 gm PO BID@1000,2200 [facility] Stop: 07/03/23 21:59 Last Admin: 06/06/23 09:26 Dose: 4 gm Dorzolamide/Timolol (Dorzolamide/Timolol 22.3/6.8mg/Ml 10 Ml Btl) 1 drops OP BID [facility] Stop: 07/01/23 00:29 Last Admin: 06/06/23 07:32 Dose: 1 drops Doxycycline Hyclate (Doxycycline Hyclate 100 Mg Cap) 100 mg PO BID [facility] Stop: 06/08/23 20:59 Last Admin: 06/06/23 07:31 Dose: 100 mg Famotidine (Famotidine 20 Mg Tab) 20 mg PO DAILY [facility] Stop: 07/01/23 08:59 Last Admin: 06/06/23 07:31 Dose: 20 mg Folic Acid (Folic Acid 1 Mg Tab) 1 mg PO QAM [facility] Stop: 07/04/23 08:59 Last Admin: 06/06/23 07:32 Dose: 1 mg Fondaparinux (Fondaparinux 2.5 Mg/0.5 Ml Syr) 1.5 mg SQ DAILY [facility] Stop: 07/01/23 08:59 Last Admin: 06/06/23 09:27 Dose: 1.5 mg Promethazine HCl 6.25 mg/ (Sodium Chloride) 50.25 mls @ 201 mls/hr IV Q6H PRN PRN Reason: Nausea And Vomiting Stop: 07/01/23 00:00 Latanoprost (Latanoprost 0.005% Op Soln 2.5 Ml Btl) 1 drops OPB HS [facility] Stop: 07/01/23 00:19 Last Admin: 06/05/23 20:46 Dose: 1 drops Levothyroxine Sodium (Levothyroxine Sodium 100 Mcg Tablet) 100 mcg PO DAILYBB [facility] Stop: 07/01/23 06:29 Last Admin: 06/06/23 05:56 Dose: 100 mcg Lisinopril (Lisinopril 2.5 Mg Tab) 2.5 mg PO QAM [facility] Stop: 07/01/23 08:59 Last Admin: 06/06/23 07:31 Dose: 2.5 mg Mirtazapine (Mirtazapine Tab 15 Mg Tab) 15 mg PO HS [facility] Stop: 07/01/23 20:59 Last Admin: 06/05/23 20:43 Dose: 15 mg Multivitamins/Minerals (Cerovite Adv Formula Tab) 1 tab PO QAM [facility] Stop: 07/04/23 08:59 Last Admin: 06/06/23 07:34 Dose: Not Given Psyllium Hydrophilic Mucilloid (Psyllium Or Guar Gum Fiber Powder Packet) 1 pkt PO QAM [facility] Stop: 07/03/23 12:59 Last Admin: 06/06/23 07:31 Dose: 1 pkt Thiamine HCl (Thiamine Hcl 100 Mg Tab) 100 mg PO QAM [facility] Stop: 07/04/23 08:59 Last Admin: 06/06/23 07:31 Dose: 100 mg Vancomycin HCl (Vancomycin Hcl 125 Mg/2.5ml Soln) 125 mg PO Q6 [facility] Stop: 06/13/23 11:59 Last Admin: 06/06/23 11:35 Dose: 125 mg
[2023-06-07 07:52] LABS: Basophils # (auto) 0.09 K/uL (0.00-0.20); Basophils % (auto) 0.6 %; Eosinophils # (auto) 0.44 K/uL (0.00-0.50); Eosinophils % (auto) 3.2 %; Hematocrit (blood only) 28.3 % (37.0-47.0); Immature Granulocytes # (auto) 0.12 K/uL (0.01-0.20); Immature Granulocytes % (auto) 0.9 %; Lymphocytes % (auto) 5.8 %; Mean Corpuscular Hemoglobin 28.7 pg (25.0-34.0); Mean Corpuscular Hgb Conc 31.8 g/dL (32.0-36.0); Mean Corpuscular Volume 90.1 fL (80.0-100.0); Mean Platelet Volume 9.7 fL (9.4-12.4); Monocytes # (auto) 0.67 K/uL (0.11-0.59); Monocytes % (auto) 4.8 %; Neutrophils # (auto) 11.75 K/uL (1.40-6.50); Neutrophils % (auto) 84.7 %; Platelet Count 328 K/uL (130-400); RDW Coefficient of Variation 16.3 % (11.5-14.5); RDW Standard Deviation 53.6 fL (36.4-46.3); Red Blood Count 3.14 M/uL (4.20-5.40); White Blood Count 13.87 K/ul (4.8-10.8)
[2023-06-07 08:11] LABS: BUN Creatinine Ratio 20.4 (10-20); Calcium 7.9 mg/dl (8.6-10.3); Creatinine Clr Calc Pharmacy 27.4 ml/min; Est GFR (African American) 62.7 ml/min; Est GFR (Non-African American) 54.1 ml/min; Magnesium 1.7 mg/dl (1.7-2.4); Phosphorus 2.8 mg/dl (2.5-4.9)
--- NOTE | 2023-06-07 09:23 | Hospitalist Progress Note ---
Date of Service June 07, 2023 Assessment & Plan (1) Hypokalemia: Plan: 83-year-old lady with PMH of chronic diastolic heart failure [EF 60 to 64%, TTE 2023], SSS s/p PPM not on anticoagulation due to bleeding, valvular heart disease [severe s/p TAVR], nonocclusive CAD, HTN, HLD, pulmonary thromboembolism, HIT, GERD, hypothyroidism, history of temporal arteritis, chronic anemia [baseline hemoglobin of 10], C. difficile presented to the ED with complaint of 1 to 2 weeks of not feeling well associated with productive cough and body aches. She denies aspiration, chest pain, shortness of breath. She reports poor appetite at baseline. She is being managed for the following: Complicated bronchitis Sepsis POA: Likely secondary to above. Temperature and WBC and respiratory rate elevated at presentation. MRSA screen/lactate/respiratory viral panel WNL. Patient presenting with few weeks of not feeling well, junky cough, body aches. Patient complaining of productive cough of yellow to white sputum. WBC elevated at presentation. Lactate WNL. Has been on doxycycline since and will be continued for 7 days in total . Blood cultures have been negative Clinically better with improvement of cough and shortness of breath Denies any more symptoms and saturating normally on room air Will be discharged to [facility] this afternoon Likely failure to thrive in an elderly Likely severe malnutrition Hypokalemia: Likely secondary to poor appetite. Patient reports having poor appetite at baseline, per EMR weight around 52.1 kg in February 2023, has decreased down to 43-46 Kg at presentation this admission. Encourage p.o. intake. Dietitian consult. Monitor replete electrolytes. Pt w/ very poor appetite at baseline, rameron was recently started. No improvement in intake has been noted. see subjective 06/03 - pt and her dtr not interested in alternative nutrition methods at this time. Remains medically stable and wanted to have more food and drink as advised She has been eating and drinking reasonably and advised to take a small amounts of food at 1 time and may be multiple times a day Goals of care discussion: see subjective 06/03. Consult palliative. Appreciate palliative care input and recommendation Full discussion with the daughter with the palliative care has been pending Discussed with the daughter in detail and for now she will be transferred to [facility] for continued care Loose stool: pt w/ multiple loose stools. Recent C diff and Rx. PO vanco empirically started 06/02 - c/w 1 week after doxy therapy ends. psyllium and cholestyramine. GI evaled, appreciate recs. Denies any more diarrhea Bowel has been formed denies any more abdominal symptoms Mild troponin elevation: Appears chronic versus likely demand ischemia secondary to acute illness. Patient with no chest pain. Continue telemetry monitoring. EKG with atrial sensed ventricular paced rhythm. Concern for Diabetes, new diagnosis - ruled out: A1c this admission 6.8; h/o prediabetes. D/w early childhood special educator - since pt w/ chronic anemia, A1c likely inaccurate. All glucose levels are <126. New DM diagnosis ruled out. f/u A1c in 3 months. Other chronic medical conditions: Continue with/resume home meds as and when able. 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 difficile history status post vancomycin Rx PT OT eval, May need placement DVT prophylaxis. Arixtra (history of HIT) DNR Patient daughter Ms. Suri Gonzalez, contact #[phone]. Updated 05/13 and 05/14. Discussed the daughter in detail and answered all of her questions and she will be picking her at around 2 PM today Time spent evaluating patient, direct bedside care, chart review, placing orders, interpretation of diagnostic studies, discussion with consultants, patient, and family members, as well as other required patient management activities is _55___ minutes. Please note the above document was generated using voice recognition software. It may contain grammatical, syntax or spelling errors. Any formal questions or concerns about the content, text or information contained within the body of this dictation should be directly addressed to the undersigned for clarification. Admission and Anticipated Discharge Date Admission Date: May 31, 2023 Subjective 06/06/2023 The patient was seen and examined in medical telemetry unit She has been feeling much better and has been trying to eat and drink more Denies any significant symptoms except weakness Awaiting PT and OT evaluation 06/07/2023 The patient was seen and examined in medical telemetry unit She has been stable and denies any symptoms No more diarrhea and she has been eating and drinking reasonably She wants to go to [facility] this afternoon Review of Systems Review of Systems: All systems reviewed and are unremarkable except as noted below Physical Exam Physical Exam: Lying in bed comfortably Constitutional: + ill appearing and + thin Eyes: PERRL, conjunctivae normal, anicteric sclerae ENMT: external ear and nose normal, oropharynx normal Neck: trachea midline, no thyromegaly Respiratory: no respiratory distress Auscultation: lungs clear to auscultation bilaterally; no crackles Cardiovascular: Rate/Rhythm: regular rate and regular rhythm; not tachycardic Heart Sounds: normal S1, normal S2 and + murmur Extremities: no edema Gastrointestinal (Abdomen): Inspection/Auscultation: normal bowel sounds; abdomen not distended Percussion/Palpation: abdomen soft; abdomen nontender Musculoskeletal: no cyanosis or clubbing, extremities motor strength 5/5 Neurologic: normal touch/pain/proprioception and moves all extremities; no focal motor deficits Psychiatric: A+Ox3, euthymic affect Lymphatic: no cervical or axillary lymphadenopathy Results & Data Results & Data Vital Signs (Past 12 Hours) Vital Signs Temp Pulse Pulse Resp BP BP Pulse Ox 06/07/23 07:39 37.1 C 75 18 120/71 95 06/07/23 07:00 91 H 06/07/23 04:00 36.9 C 72 18 128/79 95 06/06/23 23:39 68 06/06/23 23:00 36.9 C 72 18 129/73 97 06/06/23 21:31 O2 Del Method 06/07/23 07:39 Room Air 06/07/23 07:00 06/07/23 04:00 Room Air 06/06/23 23:39 06/06/23 23:00 Room Air 06/06/23 21:31 Room Air Laboratory Results Short CBC 06/07/23 Range/Units 07:17 WBC 13.87 H (4.8-10.8) K/ul Hgb 9.0 L (12.0-16.0) g/dl Hct 28.3 L (37.0-47.0) % Plt Count 328 (130-400) K/uL BMP 06/07/23 07:17 Sodium 136 Potassium 4.0 Chloride 107 Carbon Dioxide 23 BUN 20 Creatinine 0.98 Glucose 88 Calcium 7.9 L Medications Administered Current Inpatient Medications Acetaminophen (Acetaminophen 325 Mg Tab) 650 mg PO Q4H PRN PRN Reason: Pain or Fever Stop: 07/01/23 01:55 Last Admin: 06/03/23 19:52 Dose: 650 mg Aspirin (Aspirin 81 Mg Chew) 81 mg PO QAM ARPITA Stop: 07/01/23 08:59 Last Admin: 06/07/23 08:28 Dose: 81 mg Atorvastatin Calcium (Atorvastatin 20 Mg Tab) 20 mg PO PM ARPITA Stop: 07/01/23 20:59 Last Admin: 06/06/23 20:09 Dose: 20 mg Wakefield Syrup (Wakefield Syrup 5 Ml Udp) 5 ml PO Q6 ARPITA Stop: 06/13/23 11:59 Last Admin: 06/07/23 06:00 Dose: 5 ml Cholestyramine Resin (Cholestyramine Light 4 Gm Pkt) 4 gm PO BID@1000,2200 ARPITA Stop: 07/03/23 21:59 Last Admin: 06/06/23 22:29 Dose: 4 gm Dorzolamide/Timolol (Dorzolamide/Timolol 22.3/6.8mg/Ml 10 Ml Btl) 1 drops OP BID ARPITA Stop: 07/01/23 00:29 Last Admin: 06/07/23 08:22 Dose: 1 drops Doxycycline Hyclate (Doxycycline Hyclate 100 Mg Cap) 100 mg PO BID ARPITA Stop: 06/08/23 20:59 Last Admin: 06/07/23 08:21 Dose: 100 mg Famotidine (Famotidine 20 Mg Tab) 20 mg PO DAILY ARPITA Stop: 07/01/23 08:59 Last Admin: 06/07/23 08:22 Dose: 20 mg Folic Acid (Folic Acid 1 Mg Tab) 1 mg PO QAM ARPITA Stop: 07/04/23 08:59 Last Admin: 06/07/23 08:22 Dose: 1 mg Fondaparinux (Fondaparinux 2.5 Mg/0.5 Ml Syr) 1.5 mg SQ DAILY ARPITA Stop: 07/01/23 08:59 Last Admin: 06/06/23 09:27 Dose: 1.5 mg Promethazine HCl 6.25 mg/ (Sodium Chloride) 50.25 mls @ 201 mls/hr IV Q6H PRN PRN Reason: Nausea And Vomiting Stop: 07/01/23 00:00 Latanoprost (Latanoprost 0.005% Op Soln 2.5 Ml Btl) 1 drops OPB HS [facility] Stop: 07/01/23 00:19 Last Admin: 06/06/23 20:09 Dose: 1 drops Levothyroxine Sodium (Levothyroxine Sodium 100 Mcg Tablet) [facility]cg [facility] Stop: 07/01/23 06:29 Last Admin: 06/07/23 06:00 Dose: 100 mcg Lisinopril (Lisinopril 2.5 Mg Tab) [facility] Stop: 07/01/23 08:59 Last Admin: 06/07/23 08:21 Dose: 2.5 mg Mirtazapine (Mirtazapine Tab 15 Mg Tab) 15 mg PO [facility] Stop: 07/01/23 20:59 Last Admin: 06/06/23 20:09 Dose: 15 mg Multivitamins/Minerals (Cerovite Adv Formula Tab) [facility] Stop: 07/04/23 08:59 Last Admin: 06/07/23 08:21 Dose: 1 tab Psyllium Hydrophilic Mucilloid (Psyllium Or Guar Gum Fiber Powder Packet) [facility] pkt [facility] Stop: 07/03/23 12:59 Last Admin: 06/07/23 08:23 Dose: 1 pkt Thiamine HCl (Thiamine Hcl 100 Mg Tab) 100 mg PO QAM [facility] Stop: 07/04/23 08:59 Last Admin: 06/07/23 08:21 Dose: 100 mg Vancomycin HCl (Vancomycin Hcl 125 Mg/2.5ml Soln) 125 mg PO Q6 [facility] Stop: 06/13/23 11:59 Last Admin: 06/07/23 08:20 Dose: 125 mg
--- NOTE | 2023-06-08 07:45 | Discharge Summary ---
Date of Service June 07, 2023 Admission HPI Per Admitting Provider History obtained from patient and records. Medical history significant for chronic diastolic heart failure (60 to 64%, TTE 2023), SSS status post PPM not on anticoagulation due to bleeding, valvular heart disease (severe status post TAVR, mild MR/TR), nonocclusive CAD, hypertension, hyperlipidemia, history of pulmonary thromboembolism, heparin- induced thrombocytopenia as per records, GERD, hypothyroidism, history of temporal arteritis, chronic anemia (baseline hemoglobin of 10), history C. difficile. Last [facility] confinement July 2021 for UGIB, traumatic right gluteal hematoma. Eliquis for SSS and PE DVT discontinued on discharge. Recent [facility] confinement May 09-2023 for decreased p.o. intake, weight loss, functional decline the last couple of months following PCP visit. Patient found to have C. difficile status post vancomycin Rx. Mirtazapine added to home regimen for possible depression and to stimulate appetite. Diarrhea improved with medication Rx. Progressive weakness at home. Denies abdominal pain. Denies depression. 1 week history of junky cough symptoms associated body aches. Denies aspiration, chest pain, SOB. No fever, no chills. Worsening weakness. Patient brought to ER for evaluation. IV cefepime administered at the ER. 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 Admission Exam Per Admitting Provider Physical Exam: GENERAL: Comfortable, pleasant, slightly hard of hearing, no respiratory distress SKIN: Pallor, warm HEENT: Pale palpebral conjunctivae, no ptosis, dry buccal mucosa NECK : Supple, no tenderness CHEST : Decreased breath sounds, no tenderness HEART : RRR, systolic murmur ABDOMEN: no distention, nontender EXTREMITIES : No LE swelling/tenderness, no other conspicuous deformities noted NEUROLOGIC : Coherent, no facial asymmetry, hearing impairment, gait and stance not assessed Principal Diagnosis Complicated bronchitis, failure to thrive, hypokalemia, chronic diastolic heart failure, hypertension, hypothyroidism Discharge Exam Lying in bed comfortably Constitutional + ill appearing and + thin Eyes PERRL, conjunctivae normal, anicteric sclerae ENMT external ear and nose normal, oropharynx normal Neck trachea midline, no thyromegaly Respiratory no respiratory distress Auscultation: lungs clear to auscultation bilaterally; no crackles Cardiovascular Rate/Rhythm: regular rate and regular rhythm; not tachycardic Heart Sounds: normal S1, normal S2 and + murmur Extremities: no edema Gastrointestinal (Abdomen) Inspection/Auscultation: normal bowel sounds; abdomen not distended Percussion/Palpation: abdomen soft; abdomen nontender Musculoskeletal no cyanosis or clubbing, extremities motor strength 5/5 Neurologic normal touch/pain/proprioception and moves all extremities; no focal motor deficits Psychiatric A+Ox3, euthymic affect Lymphatic no cervical or axillary lymphadenopathy Discharge Data Allergies Allergy/AdvReac Type Severity Reaction Status Date / Time heparin AdvReac Severe see comment Verified 05/31/23 23:45 Consultations 05/31/23 22:58 ED Decision to Admit Stat 06/03/23 12:04 Consult Infectious Diseases Routine 06/03/23 12:46 Consult Gastroenterology Routine 06/04/23 15:39 Consult Palliative Care Routine Ordered Studies 05/31/23 21:12 CT abd pelvis IV con only Stat CT angio chest PE protocol Stat Hospital Course (1) Hypokalemia: 83-year-old lady with PMH of chronic diastolic heart failure [EF 60 to 64%, TTE 2023], SSS s/p PPM not on anticoagulation due to bleeding, valvular heart disease [severe s/p TAVR], nonocclusive CAD, HTN, HLD, pulmonary thromboembolism, HIT, GERD, hypothyroidism, history of temporal arteritis, chronic anemia [baseline hemoglobin of 10], C. difficile presented to the ED with complaint of 1 to 2 weeks of not feeling well associated with productive cough and body aches. She denies aspiration, chest pain, shortness of breath. She reports poor appetite at baseline. She is being managed for the following: Complicated bronchitis Sepsis POA: Likely secondary to above. Temperature and WBC and respiratory rate elevated at presentation. MRSA screen/lactate/respiratory viral panel WNL. Patient presenting with few weeks of not feeling well, junky cough, body aches. Patient complaining of productive cough of yellow to white sputum. WBC elevated at presentation. Lactate WNL. Has been on doxycycline since and will be continued for 7 days in total . Blood cultures have been negative Clinically better with improvement of cough and shortness of breath Denies any more symptoms and saturating normally on room air Will be discharged to [facility] this afternoon Likely failure to thrive in an elderly Likely severe malnutrition Hypokalemia: Likely secondary to poor appetite. Patient reports having poor appetite at baseline, per EMR weight around 52.1 kg in February 2023, has decreased down to 43-46 Kg at presentation this admission. Encourage p.o. intake. Dietitian consult. Monitor replete electrolytes. Pt w/ very poor appetite at baseline, rameron was recently started. No improvement in intake has been noted. see subjective 06/03 - pt and her dtr not interested in alternative nutrition methods at this time. Remains medically stable and wanted to have more food and drink as advised She has been eating and drinking reasonably and advised to take a small amounts of food at 1 time and may be multiple times a day Goals of care discussion: see subjective 06/03. Consult palliative. Appreciate palliative care input and recommendation Full discussion with the daughter with the palliative care has been pending Discussed with the daughter in detail and for now she will be transferred to [facility] for continued care Loose stool: pt w/ multiple loose stools. Recent C diff and Rx. PO vanco empirically started 06/02 - c/w 1 week after doxy therapy ends. psyllium and cholestyramine. GI evaled, appreciate recs. Denies any more diarrhea Bowel has been formed denies any more abdominal symptoms Mild troponin elevation: Appears chronic versus likely demand ischemia secondary to acute illness. Patient with no chest pain. Continue telemetry monitoring. EKG with atrial sensed ventricular paced rhythm. Concern for Diabetes, new diagnosis - ruled out: A1c this admission 6.8; h/o prediabetes. D/w inclusion special educator - since pt w/ chronic anemia, A1c likely inaccurate. All glucose levels are <126. New DM diagnosis ruled out. f/u A1c in 3 months. Other chronic medical conditions: Continue with/resume home meds as and when able. 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 difficile history status post vancomycin Rx PT OT eval, May need placement DVT prophylaxis. Maryjane (history of HIT) DNR Patient daughter Ms. Suri Gonzalez, contact #[phone]. Updated 05/13 and 05/14. Discussed the daughter in detail and answered all of her questions and she will be picking her at around 2 PM today Time spent evaluating patient, direct bedside care, chart review, placing orders, interpretation of diagnostic studies, discussion with consultants, patient, and family members, as well as other required patient management activities is _55___ minutes. Please note the above document was generated using voice recognition software. It may contain grammatical, syntax or spelling errors. Any formal questions or concerns about the content, text or information contained within the body of this dictation should be directly addressed to the undersigned for clarification. Total Time Total Time Spent Total Time Spent (In Minutes): 45 minutes Discharge Plan Discharge Items Patient Disposition: Personal Detention Reason For Visit: HYPOKALEMIA Discharge Diagnosis: Complicated bronchitis, failure to thrive, hypokalemia, chronic diastolic heart failure, hypertension, hypothyroidism Condition on Discharge: Fair Activity: Resume your previous activity Non-emergency contact: Primary Care Provider Call non-emergency contact if: you have any medication questions and your symptoms worsen Follow-up/Referrals: Kalen Ribeiro MD [Primary Care Provider] - (Please make an appointment with your PCP within 7 days) Diet: Regular Diet Texture: Easy to Chew Addtl Attending Provider Instructions: Please take precautions to avoid falls Finish the course of antibiotic and take other medications as advised Try to eat and drink more to avoid any malnutrition Have regular follow-up with your healthcare providers Pending Studies at Discharge: No Stand-Alone Forms: My [employer], Smoking Cessation Skilled Items Patient informed of condition?: Yes DNR: Yes Discharge Level of Care: Other Communicable Disease: No Discharge Prognosis: Stable Lines: None Urinary Catheter: No Medications and DC Order Prescriptions: New doxycycline hyclate 100 mg Capsule 100 mg PO BID Qty: 4 0RF vancomycin 1,000 mg Recon Soln 125 mg PO Q6 5 Days Qty: 20 0RF cholestyramine-aspartame [Prevalite] 4 gram Powder In Packet 1 ea PO BID@1000,2200 30 Days Qty: 60 0RF folic acid 1 mg Tablet 1 mg PO QAM Qty: 30 0RF thiamine HCl (vitamin B1) 100 mg Tablet 100 mg PO QAM Qty: 30 0RF Psyllium Or Guar Gum Fiber Sup [Metamucil Or Nutrisource Fiber Supplement] 1 pkg PO QAM Qty: 30 1RF Rx Instructions: dissolve in 8 OZ of beverage of choice Continued latanoprost 0.005 % drops 1 drp OPB HS Qty: 1 0RF atorvastatin 20 mg tablet 20 mg PO PM Qty: 30 0RF acetaminophen 650 mg Tablet Extended Release 650 mg PO Q8H PRN (Reason: Pain) Qty: 30 0RF levothyroxine 100 mcg Tablet 100 mcg PO QAM Qty: 30 0RF potassium chloride 20 mEq tablet,ER particles/crystals 20 meq PO DAILY Qty: 30 0RF Rx Instructions: Daughter has a hard time getting her mom to take. famotidine 20 mg tablet 20 mg PO BID Qty: 60 0RF aspirin 81 mg tablet,chewable 81 mg PO QAM Qty: 30 0RF dorzolamide-timolol 22.3-6.8 mg/mL drops 1 drp ophthalmic (eye) BID Qty: 1 0RF mirtazapine 15 mg tablet 15 mg PO HS Qty: 30 0RF lisinopril 2.5 mg Tablet 2.5 mg PO QAM Qty: 30 0RF multivit with min-folic acid [Multivitamin Gummies] 200 mcg Tablet,Chewable 1 tab PO DAILY Qty: 30 0RF Discontinued amoxicillin 500 mg Capsule 500 mg PO ONCE PRN (Reason: Other) Rx Instructions: prior to dental procedures, 4 capsules 1 hour prior to procedure Discharge Orders: Discharge Order (Routine); Ordered 06/07/23 Ordered By: Angelica Guillory/Other Patient Handouts: A1C Admission Data Admit Date/Time: 05/31/23 23:59 Attending Provider: Angelica Viramontes Admit Provider: Cody Mcelroy Primary Care Provider: Kalen Ribeiro Other Providers: Cody Mcelroy; Indio Duran; Rhoda Prieto; Aníbal Lozoya I.; Talib Elaine II; Katelynn Esposito; Lance Rios; Telly Mcclendon; Yared Monteiro; Macario Lomas; Omi Hall; Bobbi Genao; Cherri Turner; Cesia Perez; Elisa Lobato; Linda Carlin; Enrike Malcolm; Andrew Dudley; Solange Yu; Silver Lai; Marley Gold; Aracely Schofield; Kayleen Murrell; Sandra Medley; Edna Deshpande; Manjit Webb; David Acosta; Alli Busby; Halley Squires; Dori Beltran Jr; Hetal Blum; Tiffany Be Other Interventions: Discharge Summary Assessment (RN) Last Done: 06/07/23 09:46
== END 2023-06-07 14:35 | disposition home or self-care (01) | DRG 871 ==
LOC: ED 19:13 → 4W 23:59 → SUATTDRO 23:59 → 4W 06-01 01:30 → 2W 06-04 17:23
DX: I50.32 Chronic diastolic (congestive) heart failure; Z79.890 Hormone replacement therapy; E03.9 Hypothyroidism, unspecified; R62.7 Adult failure to thrive; E11.9 Type 2 diabetes mellitus without complications; Z79.82 Long term (current) use of aspirin; I11.0 Hypertensive heart disease with heart failure; J40 Bronchitis, not specified as acute or chronic; Z79.899 Other long term (current) drug therapy; E43 Unspecified severe protein-calorie malnutrition; A41.9 Sepsis, unspecified organism; I24.89 Other forms of acute ischemic heart disease; E87.6 Hypokalemia

== ENCOUNTER 2023-06-28 01:29 | Inpatient (IN) ==
[2023-06-28 02:12] LABS: Basophils # (auto) 0.07 K/uL (0.00-0.20); Basophils % (auto) 0.3 %; Eosinophils # (auto) 0.23 K/uL (0.00-0.50); Eosinophils % (auto) 1.1 %; Hematocrit (blood only) 28.4 % (37.0-47.0); Hemoglobin 8.9 g/dl (12.0-16.0); Immature Granulocytes # (auto) 0.21 K/uL (0.01-0.20); Lymphocytes # (auto) 0.91 K/uL (1.20-3.40); Lymphocytes % (auto) 4.5 %; Mean Corpuscular Hemoglobin 28.7 pg (25.0-34.0); Mean Corpuscular Hgb Conc 31.3 g/dL (32.0-36.0); Mean Corpuscular Volume 91.6 fL (80.0-100.0); Mean Platelet Volume 9.4 fL (9.4-12.4); Monocytes # (auto) 0.76 K/uL (0.11-0.59); Monocytes % (auto) 3.8 %; Neutrophils # (auto) 18.07 K/uL (1.40-6.50); Neutrophils % (auto) 89.3 %; Platelet Count 319 K/uL (130-400); RDW Coefficient of Variation 19.2 % (11.5-14.5); RDW Standard Deviation 63.1 fL (36.4-46.3); White Blood Count 20.25 K/ul (4.8-10.8)
[2023-06-28 02:27] LABS: Albumin Level 2.4 gm/dl (3.4-5.0); BUN Creatinine Ratio 15.7 (10-20); Bilirubin Direct 0.1 mg/dl (0-0.2); Bilirubin,Total 0.4 mg/dl (0.2-1.0); Calcium 8.3 mg/dl (8.6-10.3); Creatinine Clr Calc Pharmacy 27.4 ml/min; Est GFR (African American) 55.8 ml/min; Est GFR (Non-African American) 48.1 ml/min; Magnesium 1.7 mg/dl (1.7-2.4); Potassium 4.2 mmol/L (3.5-5.1); Total Protein 5.1 gm/dl (6.0-8.3)
[2023-06-28 02:33] LABS: Troponin I High Sensitivity 45.8 pg/ml (0-14)
[2023-06-28] MEDS: SODIUM CHLORIDE 0.9% 500 ML IV ONE (03:33)
[2023-06-28] MEDS: ALBUMIN 25% 25 GM/100 ML VIAL IV ONE (03:52)
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
[2023-06-28] MEDS ORDERED: PROMETHAZINE HCL 6.25 MG in SODIUM CHLORIDE 0.9% 50 ML IV PRN (04:33)
[2023-06-28] MEDS: FUROSEMIDE INJ 20 MG/2 ML VIAL IV STA (05:04)
[2023-06-28] MEDS ORDERED: ACETAMINOPHEN 325 MG TAB PO PRN (05:19)
[2023-06-28] MEDS: LEVOTHYROXINE SODIUM 100 MCG TABLET PO SCH (06:20)
[2023-06-28] MEDS: VANCOMYCIN HCL 125 MG/2.5ML SOLN PO SCH (06:21)
[2023-06-28] MEDS: CHERRY SYRUP 5 ML UDP PO SCH (06:21)
--- NOTE | 2023-06-28 06:31 | Ultrasound Report ---
BILATERAL LOWER EXTREMITY VENOUS DOPPLER CLINICAL HISTORY: leg swelling COMPARISON STUDY: No previous studies for comparison. TECHNIQUE: Sonography of the deep venous system of the bilateral lower extremities was performed. Co mpression and augmentation were evaluated. FINDINGS: The bilateral common femoral, superficial femoral and popliteal veins were compressible. A ugmentation was normal. Flow was shown within the deep calf vessels. IMPRESSION: No evidence of deep venous thrombus within the bilateral lower extremities. ACT 112: Negative or not required by law. Electronically signed by: Timothy Molina M.D. 06/28/2023 6:30 AM
--- NOTE | 2023-06-28 06:35 | XRay Report ---
XR chest 1V portable CLINICAL HISTORY: Sepsis COMPARISON STUDY: Chest radiograph and chest CT May 31, 2023. FINDINGS: There is no pneumothorax. There are trace bilateral pleural effusions. Patient is rotated. Cardiomediastinal silhouette is stable. There is a prosthetic aortic valve and left subclavian pacer. There is no evidence for pulmonary edema or pneumonia. IMPRESSION: 1. Trace bilateral pleural effusions. 2. No evidence for pulmonary edema. ACT 112: Negative or not required by law. Electronically signed by: Timothy Molina M.D. 06/28/2023 6:33 AM
[2023-06-28 07:27] LABS: Troponin I High Sensitivity 51.9 pg/ml (0-14)
[2023-06-28 07:54] LABS: Appearance Urine Clear (Clear); Bacteria Urine Automated None Seen (None Seen); Bilirubin Urine Negative (Negative); Blood Urine Negative (Negative); Cast Urine Automated 0-2 /lpf (0-2); Color Urine Yellow; Epithelial Cell Urine Auto 0-2 /hpf (0-2); Glucose Urine UA Negative (Negative); Ketones Urine Negative (Negative); Leukocyte Esterase Urine 3+ (Negative); Nitrite Urine Negative (Negative); Protein Urine Negative (Negative); RBC Urine Automated 0-2 /hpf (0-2); Specific Gravity Urine 1.005 (1.000-1.030); Urobilinogen Urine Negative (Negative); WBC Urine Automated 0-5 /hpf (0-5)
[2023-06-28] MEDS: CEROVITE ADV FORMULA TAB PO SCH (09:29)
[2023-06-28] MEDS: ASPIRIN 81 MG CHEW PO SCH (09:29)
[2023-06-28] MEDS: FAMOTIDINE 20 MG TAB PO SCH (09:29)
[2023-06-28] MEDS: FOLIC ACID 1 MG TAB PO SCH (09:29)
[2023-06-28] MEDS: COLESTIPOL HCL 1 GM TAB PO SCH (09:30)
[2023-06-28] MEDS: FONDAPARINUX 2.5 MG/0.5 ML SYR SQ SCH (09:30)
[2023-06-28] MEDS: THIAMINE HCL 100 MG TAB PO SCH (09:30)
[2023-06-28] MEDS: DORZOLAMIDE/TIMOLOL 22.3/6.8MG/ML 10 ML BTL OP SCH (09:30)
[2023-06-28] MEDS ORDERED: CARBOHYDRATES FOR HYPOGLYCEMIA PO PRN (09:43)
[2023-06-28] MEDS ORDERED: GLUCOSE 10 TAB/TUBE PO PRN (09:43)
[2023-06-28] MEDS ORDERED: DEXTROSE 50% 50 ML SYRINGE IV PRN (09:43)
[2023-06-28] MEDS ORDERED: GLUCOSE 40% GEL 15 GM TUBE PO PRN (09:43)
[2023-06-28] MEDS ORDERED: GLUCAGON FOR INJ 1 MG VIAL SQ PRN (09:43)
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
[2023-06-28 10:45] LABS: Troponin I High Sensitivity 42.7 pg/ml (0-14)
[2023-06-28] MEDS: INSULIN ASPART PER UNIT CHARGE SC SCH (12:56)
--- NOTE | 2023-06-28 17:11 | Communication Note ---
Date of Service: June 28, 2023 Patient was seen and examined at bedside. 83-year-old lady with PMH of chronic diastolic heart failure [EF 60 to 64%, TTE 2023], SSS s/p PPM not on anticoagulation due to bleeding, valvular heart disease [severe s/p TAVR], nonocclusive CAD, HTN, HLD, pulmonary thromboembolism, HIT, GERD, hypothyroidism, history of temporal arteritis, chronic anemia [baseline hemoglobin of 10], C. difficile presented to the ED from [facility] for evaluation decreased p.o. intake, BLE swelling, increasing weakness. Patient reports no hunger, denies aspiration/febrile illness/shortness of breath/chest pain. She is being managed for the following: Failure to thrive in an elderly Likely severe malnutrition Hyponatremia: Likely secondary to poor appetite. Patient reports having poor appetite at baseline, per EMR weight around 52.1 kg in February 2023, has decreased down to 43-46 Kg at during last admission. 48 kg this admission, likely increased BLE edema contributing to wt gain here. Pt does appear cachectic, lean , weak, frail. Encourage p.o. intake. Dietitian consult. Monitor replete electrolytes. BLE swelling likely 2/2 poor nutrition/lack of mobility. DVT ruled out. Pt w/ very poor appetite at baseline, c/w rameron, No improvement in intake has been noted. Pt and her dtr historically were not interested in alternative nutrition methods. megestrol contraindicated in the patient. Goals of care discussion: Palliative care on board. Discussed with palliative care, plan to discharge patient on hospice, Saturday. If patient were to decline, moved to comfort care. Otherwise just keep her stable for now. Loose stool: As an outpatient, patient on p.o. vancomycin and colestipol. Continue. Mild troponin elevation: Appears chronic. Patient with no chest pain. Continue telemetry monitoring. EKG with paced rhythm. Prediabetes: DM2 has been ruled out during last admission though A1c 6.8. Other chronic medical conditions: Continue with/resume home meds as and when able. chronic diastolic heart failure, equivocal volume status, patient intravascularly dry but with bilateral leg swelling hx SSS status post PPM not on anticoagulation due to bleeding, paced rhythm valvular heart disease (severe status post TAVR, mild MR/TR) hx nonocclusive CAD hypertension, stable hyperlipidemia, on statin Rx history of pulmonary thromboembolism Heparin-induced thrombocytopenia as per records hypothyroidism, euthyroid as of today's TSH chronic anemia, hemoglobin at baseline Recent C. difficile history status post vancomycin Rx Palliative on board, plan for discharge with hospice on Saturday. DVT prophylaxis. Arixtra (history of HIT) DNR Please note the above document was generated using voice recognition software. It may contain grammatical, syntax or spelling errors. Any formal questions or concerns about the content, text or information contained within the body of this dictation should be directly addressed to the undersigned for clarification. For detailed information, refer to today's H&P note.
[2023-06-28] MEDS: MIRTAZAPINE TAB 15 MG TAB PO SCH (20:54)
--- OUTSIDE RECORDS SUMMARY | 2023-06-28 23:12 | External Medical Summary | Summary of Care ---
Author Name Unknown Organization [facility] Address [address] [place] [address] Phone [phone] Care Team Providers Care Trade Show Coordinator Name Role Phone Kalen Ribeiro MD Primary Care Provider [phone] Reason for Visit * Reason Comments NEW PATIENT No appetite , losing weight , bouts of diarrhea, antibiotics since March 13, 2023 * Evaluate & Treat - Unlimited Visits (Within 10 days (routine)) - Authorized Specialty Diagnoses / Procedures Referred By Nithin t Referred To Contact Gastroenterology Diagnoses Clostridioides difficile diarrhea Diarrhea of infectious origin Maria Teresa Parson MD [address] [place] [address] Referral ID Status Reason Start Date Expiration Date Visits Requested Visits Authorized [id number] Authorized Specialty Services Required 06/21/[id number] Encounter Details Date Type Department Care Team (Late st Contact Info) Description 06/26/2023 9:30 AM EDT Office Visit Gastroenterology, [facility] [address] [address] Macario Lomas CRNP [address] [id number] Chronic diarrhea* Allergies Active Allergy Reactions Criticality Noted Date Comments Heparin 10/07/2020 Concern for HIT documented as of this encounter (statuses as of 06/26/2023) Medications Medication Sig Dispensed Refills Start Date [...] and 1 Drop before bedtime. 0 Active Potassium Chloride Estefany ER 20 MEQ Oral Tablet Extended ReleaseIndication s:Hypokalemia Take 1 tablet by mouth twice per day for 3 days and then once per day. 90 Tablet 1 04/30/2023 Active Additional Information Patient not taking.Reported on 06/26/2023 Mirtazapine 15 MG Oral Tablet (Remeron) Take 1 Tablet by mouth at bedtime. 30 Tablet 0 05/14/2023 Active Levothyroxine Sodium 100 MCG Oral Tablet (Levoxyl)Indicati ons:Hypothyroidis m, unspecified type TAKE 1 TABLET BY MOUTH EVERY MORNING AT LEAST 30 MINUTES PRIOR TO BREAKFAST OR OTHER MEDICATIONS 90 Tablet 1 05/26/2023 Active Fiber 28.3 % Oral Powder Take 11.6 g by mouth every morning. Mix 2 teaspoons in 8 oz of beverage daily 0 Active Folic Acid 1 MG Oral Tablet Take 1 Tablet by mouth in the morning. 0 Active Multivitamin Gummies Womens Oral Tablet Chewable Take by mouth. 0 Active Vitamin B-1 100 MG Oral Tablet Take 1 Tablet by mouth in the morning. 0 Active Potassium Chloride 20 MEQ/15ML (10%) Oral SolutionIndicatio ns:Hypokalemia Take 20 meq (15 mL) by mouth once per day. 473 mL 5 06/14/2023 Active Additional Information Patient not taking.Reported on 06/26/2023 Fidaxomicin 200 MG Oral Tablet (Dificid)Indicati ons:Clostridioide s difficile diarrhea,Diarrhea of infectious origin Take 1 Tablet by mouth in the morning and 1 Tablet before bedtime. Do all this for 10 days. 20 Tablet 0 06/21/2023 Active Vancomycin HCl 125 MG Oral Capsule (Vancocin)Indicat ions:Clostridioid es difficile diarrhea,Diarrhea of infectious origin Take 1 Capsule by mouth every 6 hours for 10 days. For 7 days 40 Capsule 0 06/21/2023 4 Active Potassium Chloride 10 MEQ Oral Packet Take by mouth. 0 Active Vancomycin HCl 125 MG Oral Capsule (Vancocin) Take 1 Capsule by mouth in the morning and 1 Capsule at noon and 1 Capsule in the evening and 1 Capsule before bedtime. 120 Capsule 5 06/26/2023 4 Active Vancomycin HCl 125 MG Oral Capsule (Vancocin) Take 1 Capsule by mouth in the morning and 1 Capsule at noon and 1 Capsule in the evening and 1 Capsule before bedtime. 120 Capsule 5 06/26/2023 4 Active Colestipol HCl 1 GM Oral Tablet (Colestid) 2 tabs daily 180 Tablet 3 06/26/2023 Active Colestipol HCl 1 GM Oral Tablet (Colestid) 2 tabs by mouth once daily 180 Tablet 3 06/26/2023 Active Cholestyramine Light 4 GM Oral Powder Take 1 Packet by mouth in the morning and 1 Packet before bedtime. 0 4 Discontinue d(Medicatio n List Clean Up) documented as of this encounter (statuses as of 06/26/2023) Active Problems Problem Noted Date Diagnosed Date [...] aorta 07/14/2021 Atherosclerotic heart diseas e of [place] coronary artery with other forms of angina [...] as of this encounter (statuses as of 06/26/2023) Resolved Problems Problem Noted Date Diagnosed Date [...] as of this encounter (statuses as of 06/26/2023) Immunizations Name Administration Dates Next Due COVID-19 [...] Answer Date Recorded PHQ Adult Total Score 2 06/14/2023 Hunger Vital Sign Answer Date Recorded Within the past 12 months, y ou worried that your food would run out before you got the money to buy more. Never true 06/14/19 24 Within the past 12 months, t he food you bought just didn't last and you didn't have money to get more. Never true 06/14/2023 Sex and Gender Information Value Date Recorded [...] Taken Comments Blood Pressure - - Pulse 67 06/26/2023 9:48 AM EDT Temperature 36.4 C (97.6 F) 06/26/2023 9:48 AM ED T Respiratory Rate 20 06/26/2023 9:48 AM EDT Oxygen Saturation 99% 06/26/2023 9:48 AM EDT Inhaled Oxygen Concentration - - Weight 39 kg (86 lb) 06/26/2023 9:48 AM EDT Height 144.8 cm (4' 9") 06/26/2023 9:48 AM EDT Body Mass Index 18.61 06/26/2023 9:48 AM EDT documented in this encounter Functional Status Functional [...] as of this encounter Progress Notes * Macario Lomas CRNP - 06/26/2023 9:47 AM EDT Consult requested by Ref: MARIA TERESA PARSON[[id number]] [address], [place] [id number] (office) [phone] (fax) CC: Diarrhea HPI: 83 year old female pt of Kalen Ribeiro MD with a hx of oral pharyngeal dysphagia, who isreferred to GI for Chronic diarrhea, failure to thrive, c diff x 1 documented episode, then admitted to [facility] for clinically significant diarrhea where testing was (-) actually gene +/toxin -. Not eating, on Vanco repeatedly. She has had about 5 courses and BMs respond, decreasing to about 3loose Bms/day while one the Vancomycin and about a week to 10 days after finishing the course, hourly loose/liquid BMs. Diagnostic Testing: C-diff positive on 05/12/23; negative on May 12, 2023. GI path (-) at [facility] on May 31, 2023. EGD Dr. Webb Mar 2023: - No endoscopic esophageal abnormality to explain patient's dysphagia.Esophagus dilated to 15 mm. Normal stomach, duodenal bulb and second portion of the duodenum. COMMENT: The patient's dysphagia is oropharyngeal. Video Swallow Mar 2023: No aspiration. Per Speech path: chin tuck, throat clearing, small bites, slow rate, alternate liquids with solids. Handout given ALLERGIES: Review of patient's allergies indicates: Allergen Reactions Heparin Concern for HIT PMH/PSH/Soc Hx reviewed, significant for: Past Medical History: Diagnosis Date Closed fracture [...] performed by Andrew Dudley MD at ENDOSCOPY [facility] COLONOSCOPY, DIAGNOSTIC (RECTUM) 06/20/2017 adenomatous polyp, diverticulosis/COLONOSCOPY FLEXIBLE PROXIMAL DIAGNOSTIC performed by Andrew Dudley MD at ENDOSCOPY [facility] DEXA SCAN/BONE MINERAL AXIAL 2006 osteoporosis, repeat 2 years DILATION AND CURETTAGE (D&C) unsure why ECHO (2-D COMPLETE) 10/12 Mild LVH, aortic scler - no stenosis EGD, FLEXIBLE, DIAGNOSTIC N/A 04/05/2023 ESOPHAGOGASTRODUODENOSCOPY (EGD), FLEXIBLE, TRANSORAL, DIAGNOSTIC performed by Manjit Webb MD at OR [facility] FRACTURE NOS 10/12 L Tibial Plateau ORIF LIGATE/CUT OVIDUCT(S) LIGATION/BIOPSY OF TEMPORAL ARTERY Left 06/18/2016 06/18/2016 left temportal artery bx dx benign - [facility] Dr. Garcia LUMBAR / SACRAL EPIDURAL, SINGLE LEVEL 10/04/2015 INJECTION TRANSFORAMINAL EPIDURAL LUMBAR OR SACRAL performed by David Costello, DO at [facility] LUMBAR / SACRAL EPIDURAL, SINGLE LEVEL 10/25/2015 INJECTION TRANSFORAMINAL EPIDURAL LUMBAR OR SACRAL performed by David Costello DO at [facility] MISCELLANEOUS ORDER (HS ONLY) 12/15 excision lipoma forehead REPLACE AORTIC VALVE, PERCUTANEOUS FEMORAL N/A 09/20/2020 REPLACE AORTIC VALVE, PERCUTANEOUS FEMORAL performed by Dimitri Maya MD at [facility] REPLACE AORTIC VALVE, PERCUTANEOUS FEMORAL N/A 09/20/2020 REPLACE AORTIC VALVE, PERCUTANEOUS FEMORAL performed by Alexys Almazan MD, PhD at [facility] TOTAL ABD HYSTERECTOMY W/WO REMOVAL OF TUBE(S) 2007 SHARIF w/ Bilateral Salpingo-Oophorectomy Social History Socioeconomic History Marital status: Spouse name: Juventino Number of children: 2 Tobacco Use Smoking status: Never Passive exposure: Past Smokeless tobacco: Never Vaping Use Vaping Use: Never used Substance and Sexual Activity Alcohol use: No Drug use: Never Sexual activity: Yes Partners: Male Comment: none Other Topics Concern Special Diet Yes Comment: takes ca with vit d Exercise Yes Comment: walks daily 3-4 miles Seat Belt Yes Self-Exams Yes Social Determinants of Health Food Insecurity: No Food Insecurity (06/14/2023) Hunger Vital Sign Worried About Running Out of Food in the Last Year: Never true Ran Out of Food in the Last Year: Never true Family history reviewed and significant for: Family History Problem Relation Age of Onset Renal Hx Mother renal failure (? HTN). Dialysis Thyroid Disorder Mother Heart Disorder Father [place] age 78 Heart Disorder Grandfather (Paternal) [place] age 65 Heart Disorder Brother [place] age 39 Cancer Aunt (Unspecified) colon Renal Hx Uncle (Unspecified) renal failure (?htn) - s/p transplant No Past Hx None no gyne cancers, no breast ca Current Outpatient Medications Medication Sig Dispense Refill [...] the morning and 1 Drop before bedtime. Potassium Chloride Estefany ER 20 MEQ Oral Tablet Extended Release Take 1 tablet by mouth twice per dayfor 3 days and then once per day. 90 Tablet 1 Mirtazapine 15 MG Oral Tablet (Remeron) Take 1 Tablet by mouth at bedtime. 30 Tablet 0 Levothyroxine Sodium 100 MCG Oral Tablet (Levoxyl) TAKE 1 TABLET BY MOUTH EVERY MORNING AT LEAST 30MINUTES PRIOR TO BREAKFAST OR OTHER MEDICATIONS 90 Tablet 1 Fiber 28.3 % Oral Powder Take 11.6 g by mouth every morning. Mix 2 teaspoons in 8 oz of beverage daily Cholestyramine Light 4 GM Oral Powder Take 1 Packet by mouth in the morning and 1 Packet before bedtime. Folic Acid 1 MG Oral Tablet Take 1 Tablet by mouth in the morning. Multivitamin Gummies Womens Oral Tablet Chewable Take by mouth. Vitamin B-1 100 MG Oral Tablet Take 1 Tablet by mouth in the morning. Potassium Chloride 20 MEQ/15ML (10%) Oral Solution Take 20 meq (15 mL) by mouth once per day. 473 mL 5 Fidaxomicin 200 MG Oral Tablet (Dificid) Take 1 Tablet by mouth in the morning and 1 Tablet before bedtime. Do all this for 10 days. 20 Tablet 0 Vancomycin HCl 125 MG Oral Capsule (Vancocin) Take 1 Capsule by mouth every 6 hours for 10 days. For 7 days 40 Capsule 0 No current facility-administered medications for this visit. EXAM: Pulse 67 | Temp 36.4 C (97.6 F) (Tympanic) | Resp 20 | Ht 1.448 m (4' 9") | Wt 39 kg (86 lb) | SpO2 99% | BMI 18.61 kg/m | BSA 1.25 m GENERAL: 83 year old frail elderly female who is awake and alert. SKIN: no rashes, ulcers, or spider angiomata HEENT: normocephalic, sclera clear, pharynx normal NECK: supple, no lymphadenopathy, no masses or thyroid enlargement LUNGS: clear to auscultation anterior and posterior HEART: regular rate & rhythm, no murmurs and no gallops ABDOMEN: normo-active bowel sounds, soft, non-tender, non-distended no masses, no hepatosplenomegaly, no rebound or guarding, no bruits EXTREMITIES: no palmar erythema, no edema, no skin discoloration, no clubbing, no cyanosis NEURO: no lateralizing findings, Sensory/Motor grossly normal IMPRESSION/RECOMMENDATIONS: 83 year old female with Chronic diarrhea (Primary) - related to a C-diff infection in early May,. ? Post infectious IBS. Her diarrhea is clinically significant, previously causing hypokalemia. - Vancomycin HCl 125 MG Oral Capsule (Vancocin); Take 1 Capsule by mouth in the morning and 1 Capsule at noon and 1 Capsule in the evening and 1 Capsule before bedtime. Will use ongoing as it seems to control her diarrhea - and diarrhea returns within 10 days of discontinuing. Drink two protein shakes/day. Pt prefers them cold. Will change cholestyramine powder to Colestid pills, 2 pills once daily. Do not take within 2 hoursof other medicines. Stop the Colestid if constipation. She is not a candidate for fecal transplant because frail. But also, we don't have access to that here in [place], would need to be seen in [place]. Unfortunately, I don't have further suggestions for an appetite enhancer. Considered Drabinol but not covered. She is already on Remeron. Try to increase high protein drinks/foods. I spent a total of 60 minutes on the date of service in review of patient's record, and previously obtained information in person and appropriate medical visit, discussion and education of plan, withpatient and/or caregiver, placing orders for tests/referral/procedures as medically necessary and documentation of pertinent clinical information in patient's medical records for their visit today. The daughter was given my business card and may contact me with any requests for change in medications (such as stopping the vancomycin if hasn't had diarrhea for a month) or if new symptoms. QUINCY Manuel [facility] Gastroenterology documented in this encounter Nursing Notes * Rona Rock RN - 06/26/2023 9:55 AM EDT Patient identified by full name and date of No appetite losing weight documented in this encounter Plan of Treatment Upcoming Encounters Date Type Department Care Team (Late st Contact Info) Description 06/28/2023 10:00 AM EDT Office Visit [facility] [address] [place] [address] Kalen Ribeiro MD [address] [place] [address] 08/01/2023 3:00 PM EDT Office Visit Orthopaedics [facility] [address] [address] Chava Huff PA-C [address] [facility] [address] [address] 09/09/2023 1:30 PM EDT Office Visit Cardiology, [facility] [address] [place] [address] Halley Preston CRNP [address] [facility] [address] [address] 09/19/2023 3:40 PM EDT Office Visit Otolaryngology/Head & Neck/Facial Plastic Surgery [address] [place] [address] Joesph Yun MD [address] [place] [address] 10/01/2023 10:30 AM EDT Rehab Services Voice Lab, [facility] [address] [place] [address] Lance Samuels, [facility] [employer] ARCHITECT [address] [facility] [address] [place] [address] 10/01/2023 11:00 AM EDT Appointment Radiology, [address] [phone] 02/10/2024 10:00 AM EST Cardiac Studies Cardiology, [facility] [address] [facility] [address] [facility] [address] [facility] [address] 02/13/2024 8:15 AM EST Cardiac Studies Cardiac Studies, [facility] [address] [facility] [address] Health Maintenance Due Date Last Done Comments Zoster Vaccines (2 of 3) 07/17/2007 05/22/2007 COVID-19 Vaccine (2022- season) 2022 12/26/2021, 02/14/2021, 06/09/2020, Additional history exists DXA Scan 02/14/2023 02/14/2021, 09/2020, 07/02/2017, Additional history exists GFR 11/21/2023 05/21/2023, 03/0 07/2023, 05/13/2023, Additional history exists TSH 05/09/2024 05/10/2023, 04/11, 04/15/2023, Additional history exists CKD PHOS USE SMARTSET 63436 05/13/2024/0 07/2023, 05/13/2023, 05/12/2023, Additional history exists Albumin/Creatinine Ratio 05/20/2024 024, 06/08/2022, 06/08/2021 CKD HGB USE SMARTSET [id number] 05/20/202405/20, 05/21/2023, 05/14/2023, Additional history exists Depression Screening 06/13/2024 06/14/2023 DTaP,Tdap,and Td Vaccines (2 - Td or Tdap) 08/14/2024 08/14/2014, 01/25/2000 Pneumococcal Vaccine: 65+ Years Completed 01/06/2015, 08/19/2007 VITAMIN D LEVEL ONCE IN A LIFETIME-USE SMARTSET# [id number] Completed 12/11/2018, 07/07/2018, 10/06/2010 Influenza Vaccine (FLU [...] this encounter Medical Devices Implanted Type Area Welder Setter Resistance Machine Device Identifier Shelf Expiration Date Model / Serial / Lot Leroy Pacemaker-12/05 Implanted:Qty: 1 on 12/05/2022 ICD Chest [employer] : CARDIAC SURGERY 09/02/2025 [id number] / / . Lead-12/05/2022 Implanted:Qty: 2 on 12/05/2022 Lead Chest [employer] : CARDIAC SURGERY 10/28/2025 [id number] / / . Balloon Cath Pacing [id number] - [id number] Implanted:Qty: 1 on 09/20/2020 at [facility] CR BARD : MEDICAL [id number] 07/08/2022 [id number] / / [id number] Proglide Perclose [id number] X10 - [id number] Implanted:Qty: 1 on 09/20/2020 at [facility] LARA [facility] : VASCULAR DEVICES [id number] 06/08/2022 [id number] / / [id number] Valve Bg 3 Ultra 23mm - [id number] Implanted:Qty: 1 on 09/20/2020 by Dimitri Maya MD at [facility] [employer] [id number] 09/22/2022 [id number] / / . Lead Tempo Temp Pacing - [id number] Implanted:Qty: 1 on 09/20/2020 at [facility] [employer] [id number] 06/28/2021 [id number] / / [id number] documented as of this encounter Visit Diagnoses Diagnosis Chronic diarrhea- Primary Diarrhea documented in this encounter Advance Directives Latest [...] the patient have Health Care Power of Wire Rope Sling Maker? No Full Code 09/25/2020 6:44 PM 09/26/2020 6:50 PM This order reflects the patients wishes and were consensually agreed upon. Care Teams Trade Show Coordinator Relationship Specialty Start Date End Date Kalen Ribeiro MD [address] [facility] [address] [address] PCP - General 12/15/01 documented as of this encounter
--- OUTSIDE RECORDS SUMMARY | 2023-06-28 23:12 | External Medical Summary | Summary of Care ---
Author Name Unknown Organization [facility] Address [address] [place] [address] Phone [phone] Care Team Providers Care Software Integration Developer Name Role Phone Kalen Ribeiro MD Primary Care Provider +1- [phone] Encounter Details Date Type Department Care Team (Late st Contact Info) Description 06/25/2023 [facility] [address] [place] [address] Kalen Ribeiro MD [address] [place] [address] Clostridioides difficile diarrhea* Allergies Active Allergy Reactions Criticality Noted Date Comments Heparin 10/07/2020 Concern for HIT documented as of this encounter (statuses as of 06/25/2023) Medications Medication Sig Dispensed Refills Start Date [...] 04/30/2023 Active Mirtazapine 15 MG Oral Tablet (Remeron) [...] 8 oz of beverage daily 0 Active Cholestyramine Light 4 GM Oral Powder Take 1 Packet by mouth in the morning and 1 Packet before bedtime. 0 Active Folic Acid 1 MG Oral Tablet Take 1 Tablet by mouth in the morning. 0 Active Multivitamin Gummies Womens Oral Tablet Chewable Take by mouth. 0 Active Vitamin B-1 100 MG Oral Tablet Take 1 Tablet by mouth in the morning. 0 Active Potassium Chloride 20 MEQ/15ML (10%) Oral SolutionIndication s:Hypokalemia Take 20 meq (15 mL) by mouth once per day. 473 mL 5 06/14/2023 Active Fidaxomicin 200 MG Oral Tablet (Dificid)Indicatio ns:Clostridioides difficile diarrhea,Diarrhea of infectious origin Take 1 Tablet by mouth in the morning and 1 Tablet before bedtime. Do all this for 10 days. 20 Tablet 0 06/21/2023 07/01/2023 Active Vancomycin HCl 125 MG Oral Capsule (Vancocin)Indicati ons:Clostridioides difficile diarrhea,Diarrhea of infectious origin Take 1 Capsule by mouth every 6 hours for 10 days. For 7 days 40 Capsule 0 06/21/2023 07/01/2023 Active documented as of this encounter (statuses as of 06/25/2023) Active Problems Problem Noted Date Diagnosed Date [...] as of this encounter (statuses as of 06/25/2023) Resolved Problems Problem Noted Date Diagnosed Date Resolved Date Sepsis 04/15/2023 05/10/2023 Oropharyngeal dysphagia 03/18/2023 03/1 03/2023 Primary open angle glaucoma (POAG) 03/29/2022 12/25/2022 [...] as of this encounter (statuses as of 06/25/2023) Immunizations Name Administration Dates Next Due COVID-19 [...] as of this encounter Progress Notes * Jeanie Villagran RN - 06/25/2023 12:55 PM EDT Encounter created in error Jeanie Villagran RN documented in this encounter Plan of Treatment Upcoming Encounters Date Type Department Care Team (Late st Contact Info) Description 06/26/2023 9:30 AM EDT Office Visit Gastroenterology, [facility] [address] [place] [address] Macario Lomas CRNP [address] [place] [address] 06/28/2023 10:00 AM EDT Office Visit [place] [address] [place] [address] Kalen Ribeiro MD [address] [place] [address] 08/01/2023 3:00 PM EDT Office Visit Orthopaedics [facility] [address] [place] [address] Chava Huff PA-C [address] [place] [address] 09/09/2023 1:30 PM EDT Office Visit Cardiology, [facility] [address] [place] [address] Halley Preston CRNP [address] [place] [address] 09/19/2023 3:40 PM EDT Office Visit Otolaryngology/Head & Neck/Facial Plastic Surgery [address] [place] [address] Joesph Yun MD [address] [place] [address] 10/01/2023 10:30 AM EDT Rehab Services Voice Lab, [facility] [address] [place] [address] Lance Samuels, [facility] VERIFICATION SPECIALIST [address] [place] [address] 10/01/2023 11:00 AM EDT Appointment Radiology, [facility] [address] [place] [address] 02/10/2024 10:00 AM EST Cardiac Studies Cardiology, [facility] [address] [facility] [place] [address] [facility] [address] [place] [address] 02/13/2024 8:15 AM EST Cardiac Studies Cardiac Studies, [facility] [address] [facility] [place] [address] Health Maintenance Due Date Last Done Comments Zoster Vaccines (2 of 3) 07/17/2007 05/22/2007 COVID-19 Vaccine ( season) 2022 12/26/2021, 02/14/2021, 06/09/2020, Additional history exists DXA Scan 02/14/2023 02/14/2021, 09/2020, 07/02/2017, Additional history exists GFR 11/21/2023 05/21/2023, 07/2023, 05/13/2023, Additional history exists TSH 05/09/2024 05/10/2023, 04/11, 04/15/2023, Additional history exists CKD PHOS USE SMARTSET 67892 05/13/2024 0307/2023, 05/13/2023, 05/12/2023, Additional history exists Albumin/Creatinine Ratio 05/20/2024 024, 06/08/2022, 06/08/2021 CKD HGB USE SMARTSET 86900 05/20/202405/20, 05/21/2023, 05/14/2023, Additional history exists Depression Screening 06/13/2024 06/14/2023 DTaP,Tdap,and Td Vaccines (2 - Td or Tdap) 08/14/2024 08/14/2014, 01/25/2000 Pneumococcal Vaccine: 65+ Years Completed 01/06/2015, 08/19/2007 VITAMIN D LEVEL ONCE IN A LIFETIME-USE SMARTSET# [id number] Completed 12/11/2018, 07/07/2018, 10/06/2010 Influenza Vaccine (FLU [...] this encounter Medical Devices Implanted Type Area Ncr Operator Device Identifier Shelf Expiration Date Model / Serial / Lot Molly Pacemaker-12/05 Implanted:Qty: 1 on 12/05/2022 ICD Chest MED[employer] : CARDIAC SURGERY 09/02/2025 [id number] / / . Lead-12/05/2022 Implanted:Qty: 2 on 12/05/2022 Lead Chest [employer] : CARDIAC SURGERY 10/28/2025 [id number] AND 3830 / / . Balloon Cath Pacing [id number] - [id number] Implanted:Qty: 1 on 09/20/2020 at [facility] : MEDICAL [id number] 07/08/2022 520 007P / / [id number] Proglide Perclose 03647-46 X10 - [id number] Implanted:Qty: 1 on 09/20/2020 at [facility] : VASCULAR DEVICES [id number] 06/08/2022 [id number] / / [id number] Valve Bg 3 Ultra 23mm - [id number] Implanted:Qty: 1 on 09/20/2020 by Dimitri Maya MD at [facility] [employer] [id number] 09/22/2022 [id number] / / . Lead Tempo Temp Pacing - [id number] Implanted:Qty: 1 on 09/20/2020 at [facility] [employer] [id number] 06/28/2021 [id number] / / [id number] documented as of this encounter Visit Diagnoses Diagnosis Clostridioides difficile diarrhea- Primary documented in this encounter Advance Directives [...] the patient have Health Care Power of Mirror Fabrication Supervisor? No Full Code 09/25/2020 6:44 PM 09/26/2020 6:50 PM This order reflects the patients wishes and were consensually agreed upon. Care Teams Software Integration Developer Relationship Specialty Start Date End Date Kalen Ribeiro MD [address] [facility] [place] [id number] PCP - General 12/15/01 documented as of this encounter
--- OUTSIDE RECORDS SUMMARY | 2023-06-28 23:12 | External Medical Summary | Summary of Care ---
Author Name Unknown Organization [facility] Address [address] [place] [address] Phone [phone] Care Team Providers Care Tool And Die Maker Apprentice Name Role Phone Kalen Ribeiro MD Primary Care Provider [phone]- [phone] Reason for Visit * Reason Onset Date Comments Pre Cert/Prior Auth 06/24/2023 Dificid Encounter Details Date Type Department Care Team (Late st Contact Info) Description 06/24/2023 Telephone [facility] [address] [place] [address] Kalen Ribeiro MD [address] [place] [address] Pre Cert/Prior Auth (Dificid ) Allergies Active Allergy Reactions Criticality Noted Date [...] Active Levothyroxine Sodium 100 MCG Oral Tablet (Levoxyl)Jhontio ns:Hypothyroidism, unspecified type TAKE 1 TABLET BY [...] 06/14/2023 Active Fidaxomicin 200 MG Oral Tablet (Dificid)Jhontio ns:Clostridioides difficile diarrhea,Diarrhea of infectious origin Take [...] aorta 07/14/2021 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 * Telephone Encounter - Meryl Parson MD - 06/24/2023 7:02 PM EDT Pt has not yet submitted stool sample Has appt with gastro 06/25 Nursing - please call pt to give stool sample at earliest convenience * Telephone Encounter - Missy Mendoza LPN - 06/24/2023 9:17 AM EDT Pt's insurance denied Dificid Formulary alternatives include: Vancomycin (which also may need a prior auth and have a quantity limit) Thanks documented in this encounter Plan of Treatment Upcoming Encounters Date Type Department Care Team (Late st Contact Info) Description 06/26/2023 9:30 AM EDT Office Visit Gastroenterology, [facility] [address] [place] [address] Macario Lomas CRNP [address] [place] [address] 06/28/2023 10:00 AM EDT Office Visit [facility] [address] [place] [address] Kalen Ribeiro MD [address] [place] [address] 08/01/2023 3:00 PM EDT Office Visit Orthopaedics [facility] [address] [place] [address] Chava Huff PA-C [address] [facility] [place] [address] 09/09/2023 1:30 PM EDT Office Visit Cardiology, [facility] [address] [facility] [place] [address] Halley Preston CRNP [address] [place] [address] 09/19/2023 3:40 PM EDT Office Visit Otolaryngology/Head & Neck/Facial Plastic Surgery [address] [place] [address] Joesph Yun MD [address] [place] [address] 10/01/2023 10:30 AM EDT Rehab Services [facility], [facility] [address] Lance Samuels, [facility] DIRECTOR [address] [place] [address] 10/01/2023 11:00 AM EDT Appointment Radiology, [facility] [address] [place] [address] 02/10/2024 10:00 AM EST Cardiac Studies Cardiology, [facility] [address] [facility] [place] [address] [place] [address] [facility] [place] [address] 02/13/2024 8:15 AM EST Cardiac Studies Cardiac Studies, [facility] [address] [facility] [place] [address] Health Maintenance Due Date Last Done Comments Zoster Vaccines (2 of 3) 07/17/2007 05/22/2007 COVID-19 Vaccine ( season) 2022 12/26/2021, 02/14/2021, 06/09/2020, Additional history exists DXA Scan 02/14/2023 02/14/2021, 09/2020, 07/02/2017, Additional history exists GFR 11/21/2023 05/21/2023, 0 07/2023, 05/13/2023, Additional history exists TSH 05/09/2024 05/10/2023, 04/11, 04/15/2023, Additional history exists CKD PHOS USE SMARTSET 81409 05/13/20240 07/2023, 05/13/2023, 05/12/2023, Additional history exists Albumin/Creatinine Ratio 05/20/20242 024, 06/08/2022, 06/08/2021 CKD HGB USE SMARTSET 98905 05/20/202405/20, 05/21/2023, 05/14/2023, Additional history exists Depression Screening 06/13/2024 06/14/2023 DTaP,Tdap,and Td Vaccines (2 - Td or Tdap) 08/14/2024 08/14/2014, 01/25/2000 Pneumococcal Vaccine: 65+ Years Completed 01/06/2015, 08/19/2007 VITAMIN D LEVEL ONCE IN A LIFETIME-USE SMARTSET# [id number] Completed 12/11/2018, 07/07/2018, 10/06/2010 Influenza Vaccine (FLU [...] this encounter Medical Devices Implanted Type Area Finance Broker Device Identifier Shelf Expiration Date Model / Serial / Lot Molly Pacemaker-12/05 Implanted:Qty: 1 on 12/05/2022 ICD Chest MED[employer] : CARDIAC SURGERY 09/02/2025 [id number] / / . Lead-12/05/2022 Implanted:Qty: 2 on 12/05/2022 Lead Chest [employer] : CARDIAC SURGERY 10/28/2025 5076 AND 3830 / / . Balloon Cath Pacing [id number] - [id number] Implanted:Qty: 1 on 09/20/2020 at [facility] : MEDICAL [id number] 07/08/2022 520 007P / / [id number] Proglide Perclose 25109-89 X10 - [id number] Implanted:Qty: 1 on 09/20/2020 at [facility] : VASCULAR DEVICES [id number] 06/08/2022 [id number] / / [id number] Valve Bg 3 Ultra 23mm - [id number] Implanted:Qty: 1 on 09/20/2020 by Dimitri Maya MD at [facility] [employer] [id number] 09/22/2022 [id number] / / . Lead Tempo Temp Pacing - [id number] Implanted:Qty: 1 on 09/20/2020 at [facility] [employer] [id number] 06/28/2021 [id number] / / [id number] documented as of this encounter Advance Directives [...] the patient have Health Care Power of Hazardous Materials Handler? No Full Code 09/25/2020 6:44 PM 09/26/2020 6:50 PM This order reflects the patients wishes and were consensually agreed upon. Care Teams Tool And Die Maker Apprentice Relationship Specialty Start Date End Date Kalen Ribeiro MD [address] [place] [facility] [place] [address] PCP - General 12/15/01 documented as of this encounter
--- OUTSIDE RECORDS SUMMARY | 2023-06-28 23:12 | External Medical Summary | Summary of Care ---
Author Name Unknown Organization [facility] Address [address] [place] [address] Phone [phone] Care Team Providers Care Echocardiograph Technician Name Role Phone Kalen Ribeiro MD Primary Care Provider +1- [phone] Reason for Visit * Reason Comments NEW PATIENT No appetite , losing weight , bouts of diarrhea, antibiotics since March 13, 2023 * Evaluate & Treat - Unlimited Visits (Within 10 days (routine)) - Authorized Specialty Diagnoses / Procedures Referred By Nithin t Referred To Contact Gastroenterology Diagnoses Clostridioides difficile diarrhea Diarrhea of infectious origin Maria Teresa Parson MD [address] [place] [address] Referral ID Status Reason Start Date Expiration Date Visits Requested Visits Authorized [id number] Authorized Specialty Services Required 06/21/[phone] Encounter Details Date Type Department Care Team (Late st Contact Info) Description 06/26/2023 9:30 AM EDT Office Visit Gastroenterology, [facility] [address] [place] [address] Macario Lomas CRNP [address] [place] [address] Chronic diarrhea* Allergies Active Allergy Reactions Criticality [...] EDT Consult requested by Ref: MARIA TERESA PARSON[[id number]] [address], [place] [address] (office) [phone] (fax) CC: Diarrhea HPI: 83 year old [...] performed by Andrew Dudley MD at ENDOSCOPY [facility] COLONOSCOPY, DIAGNOSTIC (RECTUM) 06/20/2017 adenomatous polyp, diverticulosis/COLONOSCOPY FLEXIBLE PROXIMAL DIAGNOSTIC performed by Andrew Dudley MD at ENDOSCOPY [facility] DEXA SCAN/BONE MINERAL AXIAL 2006 osteoporosis, repeat 2 years DILATION AND CURETTAGE (D&C) unsure why ECHO (2-D COMPLETE) 10/12 Mild LVH, 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 Garcia LUMBAR / SACRAL EPIDURAL, SINGLE LEVEL 10/04/2015 INJECTION TRANSFORAMINAL EPIDURAL LUMBAR OR SACRAL performed by David Costello, DO at [facility] LUMBAR / SACRAL EPIDURAL, SINGLE LEVEL 10/25/2015 INJECTION TRANSFORAMINAL EPIDURAL LUMBAR OR SACRAL performed by David Costello DO at [facility] MISCELLANEOUS ORDER ([facility] ONLY) 12/15 excision lipoma forehead REPLACE AORTIC VALVE, PERCUTANEOUS FEMORAL N/A 09/20/2020 REPLACE AORTIC VALVE, PERCUTANEOUS FEMORAL performed by Dimitri Maya MD at [facility] REPLACE AORTIC VALVE, PERCUTANEOUS FEMORAL N/A 09/20/2020 REPLACE AORTIC VALVE, PERCUTANEOUS FEMORAL performed by Alexys Almazan MD, PhD at [facility] TOTAL ABD HYSTERECTOMY W/WO REMOVAL OF TUBE(S) [...] don't have access to that here in [place], would need to be seen in [place]. Unfortunately, I don't have further suggestions for [...] month) or if new symptoms. QUINCY Manuel [facility] Gastroenterology documented in this encounter Nursing Notes * Rona Rock RN - 06/26/2023 9:55 AM EDT Patient identified by full name and date of No appetite losing weight documented in this encounter Plan of Treatment Upcoming Encounters Date Type Department Care Team (Late st Contact Info) Description 06/28/2023 10:00 AM EDT Office Visit [facility] [address] [place] [address] Kalen Ribeiro MD [address] [place] [address] 08/01/2023 3:00 PM EDT Office Visit Orthopaedics [facility] [address] [place] [address] Chava Huff PA-C 132 [facility] [place] [address] 09/09/2023 1:30 PM EDT Office Visit Cardiology, [facility] [address] [facility] [place] [address] Halley Preston CRNP 132 [facility] [place] [address] 09/19/2023 3:40 PM EDT Office Visit Otolaryngology/Head & Neck/Facial Plastic Surgery [address] [place] [address] Joesph Yun MD [address] [place] [address] 10/01/2023 10:30 AM EDT Rehab Services Voice Lab, [facility] [address] [place] [address] Lance Samuels, [facility] 132 [facility] [place] [address] 10/01/2023 11:00 AM EDT Appointment Radiology, [address] [address] 02/10/2024 10:00 AM EST Cardiac Studies Cardiology, [facility] [address] [facility] [place] [address] [facility] [address] 02/13/2024 8:15 AM EST Cardiac Studies Cardiac Studies, [facility] [address] [facility] [place] [address] Health Maintenance Due Date Last Done Comments Zoster Vaccines (2 of 3) 07/17/2007 05/22/2007 COVID-19 Vaccine (2022- season) 2022 12/26/2021, 02/14/2021, 06/09/2020, Additional history exists DXA Scan 02/14/2023 02/14/2021, 09/2020, 07/02/2017, Additional history exists GFR 11/21/2023 05/21/2023, 03/0 07/2023, 05/13/2023, Additional history exists TSH 05/09/2024 05/10/2023, 04/11, 04/15/2023, Additional history exists CKD PHOS USE SMARTSET 81743 05/13/2024/0 07/2023, 05/13/2023, 05/12/2023, Additional history exists Albumin/Creatinine Ratio 05/20/2024 024, 06/08/2022, 06/08/2021 CKD HGB USE SMARTSET 73394 05/20/202405/20, 05/21/2023, 05/14/2023, Additional history exists Depression Screening 06/13/2024 06/14/2023 DTaP,Tdap,and Td Vaccines (2 - Td or Tdap) 08/14/2024 08/14/2014, 01/25/2000 Pneumococcal Vaccine: 65+ Years Completed 01/06/2015, 08/19/2007 VITAMIN D LEVEL ONCE IN A LIFETIME-USE SMARTSET# [id number] Completed 12/11/2018, 07/07/2018, 10/06/2010 Influenza Vaccine (FLU [...] this encounter Medical Devices Implanted Type Area Forging Roll Operator Device Identifier Shelf Expiration Date Model / Serial / Lot [place] Pacemaker-12/05 Implanted:Qty: 1 on 12/05/2022 ICD Chest [employer] : CARDIAC SURGERY 09/02/2025 [id number] / / . Lead-12/05/2022 Implanted:Qty: 2 on 12/05/2022 Lead Chest [employer] : CARDIAC SURGERY 10/28/2025 5076 AND 3830 / / . Balloon Cath Pacing [id number] - [id number] Implanted:Qty: 1 on 09/20/2020 at [facility]ARD : MEDICAL [id number] 07/08/2022 520 007P / / [id number] Proglide Perclose 74128-39 X10 - [id number] Implanted:Qty: 1 on 09/20/2020 at [facility] : VASCULAR DEVICES [id number] 06/08/2022 45739-80 / / [id number] Valve Bg 3 Ultra 23mm - [id number] Implanted:Qty: 1 on 09/20/2020 by Dimitri Maya MD at [facility] [employer] [id number] 09/22/2022 [id number] / / . Lead Tempo Temp Pacing - [id number] Implanted:Qty: 1 on 09/20/2020 at [facility] [employer] [id number] 06/28/2021 [id number] / / [id number] documented as of this encounter Visit Diagnoses [...] the patient have Health Care Power of Air Dispatcher? No Full Code 09/25/2020 6:44 PM 09/26/2020 6:50 PM This order reflects the patients wishes and were consensually agreed upon. Care Teams Echocardiograph Technician Relationship Specialty Start Date End Date Kalen Ribeiro MD [address] [facility] [place] [address] PCP - General 12/15/01 documented as of this encounter
--- OUTSIDE RECORDS SUMMARY | 2023-06-28 23:13 | External Medical Summary | Summary of Care ---
Author Name Unknown Organization [facility] Address [address] [place] [address] Phone [phone] Care Team Providers Care Meter Attendant Name Role Phone Kalen Ribeiro MD Primary Care Provider +1- [phone] Reason for Visit * Reason Onset Date Comments Advice 06/13/2023 Encounter Details Date Type Department Care Team (Late st Contact Info) Description 06/13/2023 Telephone [facility] [address] [place] [address] Kalen Ribeiro MD [address] [place] [address] Advice Allergies Active Allergy Reactions Criticality Noted Date Comments Heparin 10/07/2020 Concern for HIT documented as of this encounter (statuses as of 06/14/2023) Medications Medication Sig Dispensed Refills Start Date [...] OTHER MEDICATIONS 90 Tablet 1 05/26/2023 Active Furosemide 20 MG Oral Tablet (Lasix) TAKE ONE TABLET BY MOUTH DAILY 90 Tablet 3 04/13/2022 4 Discontinue d(Patient preference/ discontinua tion) Pantoprazole Sodium 40 MG Oral Tablet Delayed Release (Protonix) TAKE 1 TABLET BY MOUTH ONCE DAILY 90 Tablet 1 12/17/2022 4 Discontinue d(Patient preference/ discontinua tion) Famotidine 20 MG Oral Tablet (Pepcid) Take 1 Tablet by mouth in the morning and 1 Tablet before bedtime. 60 Tablet 11 12/25/2022 4 Discontinue d(Patient preference/ discontinua tion) Atorvastatin Calcium 20 MG Oral Tablet (Lipitor)Indicati ons:Dyslipidemia, goal LDL below 70 TAKE 1 TABLET BY MOUTH ONCE DAILY 90 Tablet 3 01/03/2023 4 Discontinue d(Patient preference/ discontinua tion) documented as of this encounter (statuses as of 06/14/2023) Active Problems Problem Noted Date Diagnosed Date [...] as of this encounter (statuses as of 06/14/2023) Resolved Problems Problem Noted Date Diagnosed Date [...] as of this encounter (statuses as of 06/14/2023) Immunizations Name Administration Dates Next Due COVID-19 [...] money to buy more. Never true 06/14/19 Within the past 12 months, t he [...] encounter Miscellaneous Notes * Telephone Encounter - Kalen Ribeiro MD - 06/14/2023 12:56 PM EDT Glad her symptoms are improved. Would suggest holding on lomotil so we can monitor for possible recurrent c diff. * Telephone Encounter - Yari Xiong LPN - 06/14/2023 9:54 AM EDT Spoke with Leonor, she went to get the patient and she states her symptoms are resolved for the last 2 days and she only had a total of 2-3 loose stools. * Telephone Encounter - Kalen Ribeiro MD - 06/14/2023 9:35 AM EDT Difficult situation. Is there a way to talk directly to the patient? It is very important to understand the course of diarrhea and her response to the first and second courses of vancomycin. The testing is often not helpful in determining recurrent disease. * Telephone Encounter - Kalen Ribeiro MD - 06/14/2023 8:29 AM EDT . * Telephone Encounter - Yari Xiong LPN - 06/13/2023 2:39 PM EDT Contacted Daphne at [facility] and she states patient denies all symptoms just states her bottom is raw. They are unsure of weight loss as she is a light eater. They are not sure how many times a day she is having diarrhea as she is independent with toileting. Patient is still taking Vancomycin for another day. If you are concerned with C-diff you can order the lab and we can fax it to their office to collectthe specimen. * Telephone Encounter - Kalen Ribeiro MD - 06/13/2023 12:20 PM EDT Pt had recent C diff and there is a risk of recurrence. Please see if she is having fever, increased abd pain, blood in stool, weight loss. Also see if they can give us an idea of how many diarrheal stools per day. * Telephone Encounter - Aracely Kline OSA - 06/13/2023 11:46 AM EDT Daphne from [facility] is calling in requesting a prescription for lamotil. Patient is reporting to them that she has been having diarrhea for 3-4 days now, and that her "bottom israw" The care facility did provide a small bottle of ointment for this but if doctor would like to send something for this as well it can be faxed to the same number. Their fax is [phone], they have a pharmacy to fill the prescriptions. documented in this encounter Plan of Treatment Upcoming Encounters Date Type Department Care Team (Late st Contact Info) Description 06/20/2023 9:30 AM EDT Scheduled Telephone [facility], [facility] [address] [facility] [place] [address] Maia Shah, RDN [address] [facility] [place] [address] 06/28/2023 8:00 AM EDT Office Visit [facility] [address] [place] [address] Kalen Ribeiro MD [address] [place] [address] 08/01/2023 3:00 PM EDT Office Visit Orthopaedics [facility] [address] [place] [address] Chava Huff PA-C [address] [place] [address] 09/09/2023 1:30 PM EDT Office Visit Cardiology, [facility] [place] [address] Halley Preston CRNP [address] [place] [address] 09/19/2023 3:40 PM EDT Office Visit Otolaryngology/Head & Neck/Facial Plastic Surgery [address] [place] [address] Joesph Yun MD [address] [place] [address] 10/01/2023 10:30 AM EDT Rehab Services Voice Lab, [facility] [address] [place] [address] Lance Samuels, [facility] [address] [facility] [place] [address] 10/01/2023 11:00 AM EDT Appointment Radiology, [facility] [address] [place] [id number] 02/10/2024 10:00 AM EST Cardiac Studies Cardiology, [facility] [address] [place] [address] [facility] [place] [address] 02/13/2024 8:15 AM EST Cardiac Studies Cardiac Studies, [facility] [address] [place] Health Maintenance Due Date Last Done Comments Zoster Vaccines (2 of 3) 07/17/2007 05/22/2007 COVID-19 Vaccine ( - 2022- season) 2022 12/26/2021, 02/14/2021, 06/09/2020, Additional history exists DXA Scan 02/14/2023 02/14/2021, 09/2020, 07/02/2017, Additional history exists GFR 11/21/2023 05/21/2023, 07/2023, 05/13/2023, Additional history exists TSH 05/09/2024 05/10/2023, 04/11, 04/15/2023, Additional history exists CKD PHOS USE SMARTSET 80279 05/13/202407/2023, 05/13/2023, 05/12/2023, Additional history exists Albumin/Creatinine Ratio 05/20/2024 024, 06/08/2022, 06/08/2021 CKD HGB USE SMARTSET 47805 05/20/202405/20, 05/21/2023, 05/14/2023, Additional history exists Depression Screening 06/13/2024 06/14/2023 DTaP,Tdap,and Td Vaccines (2 - Td or Tdap) 08/14/2024 08/14/2014, 01/25/2000 Pneumococcal Vaccine: 65+ Years Completed 01/06/2015, 08/19/2007 VITAMIN D LEVEL ONCE IN A LIFETIME-USE SMARTSET# [id number] Completed 12/11/2018, 07/07/2018, 10/06/2010 Influenza Vaccine (FLU [...] this encounter Medical Devices Implanted Type Area Website Admin Device Identifier Shelf Expiration Date Model / Serial / Lot Molly Pacemaker-12/05 Implanted:Qty: 1 on 12/05/2022 ICD Chest [employer] : CARDIAC SURGERY 09/02/2025 [id number] / / . Lead-12/05/2022 Implanted:Qty: 2 on 12/05/2022 Lead Chest [employer] : CARDIAC SURGERY 10/28/2025 5076 AND 3830 / / . Balloon Cath Pacing [id number] - [id number] Implanted:Qty: 1 on 09/20/2020 at [facility] BARD : MEDICAL [id number] 07/08/2022 520 007P / / [id number] Proglide Perclose 03766-48 X10 - [id number] Implanted:Qty: 1 on 09/20/2020 at [facility] : VASCULAR DEVICES [id number] 06/08/2022 17740-05 / / [id number] Valve Bg 3 Ultra 23mm - [id number] Implanted:Qty: 1 on 09/20/2020 by Dimitri Maya MD at [facility] [employer] [id number] 09/22/2022 [id number] / / . Lead Tempo Temp Pacing - [id number] Implanted:Qty: 1 on 09/20/2020 at [facility] [employer] [id number] 06/28/2021 [id number] / / [id number] documented as of this encounter Advance Directives [...] patient have Health Care Power of Embedded Systems Designer? No Full Code 09/25/2020 6:44 PM 09/26/2020 6:50 PM This order reflects the patients wishes and were consensually agreed upon. Care Teams Meter Attendant Relationship Specialty Start Date End Date Kalen Ribeiro MD [address] [place] [address] PCP - General 12/15/01 documented as of this encounter
--- OUTSIDE RECORDS SUMMARY | 2023-06-28 23:13 | External Medical Summary | Summary of Care ---
Author Name Unknown Organization [facility] Address [address] [place] [address] Phone [phone] Care Team Providers Care Leasing Specialist Name Role Phone Kalen Ribeiro MD Primary Care Provider +1- [phone] Reason for Visit * Reason Onset Date Comments Pre Cert/Prior Auth 06/24/2023 Dificid Encounter Details Date Type Department Care Team (Late st Contact Info) Description 06/24/2023 Telephone [facility] [address] [place] [address] Kalen Ribeiro MD [address] [place] [address] Pre Cert/Prior Auth (Dificid ) Allergies Active Allergy Reactions Criticality Noted Date Comments Heparin 10/07/2020 Concern for HIT documented as of this encounter (statuses as of 06/24/2023) Medications Medication Sig Dispensed Refills Start Date [...] as of this encounter (statuses as of 06/24/2023) Active Problems Problem Noted Date Diagnosed Date [...] aorta 07/14/2021 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 [...] as of this encounter (statuses as of 06/24/2023) Resolved Problems Problem Noted Date Diagnosed Date [...] as of this encounter (statuses as of 06/24/2023) Immunizations Name Administration Dates Next Due COVID-19 [...] encounter Miscellaneous Notes * Telephone Encounter - Meryl Parson MD [...] 06/26/2023 9:30 AM EDT Office Visit Gastroenterology, [facility] [address] [place] [address] Macario Lomas CRNP [address] [place] [address] 06/28/2023 8:00 AM EDT Office Visit [facility] [address] [place] [facility] [place] [id number] Kalen Ribeiro MD [address] [place] [address] 08/01/2023 3:00 PM EDT Office Visit Orthopaedics [facility] [address] [place] [address] Chava Huff PA-C [address] [place] [address] 09/09/2023 1:30 PM EDT Office Visit Cardiology, [facility] [address] [place] [address] Halley Preston CRNP [address] [place] [address] 09/19/2023 3:40 PM EDT Office Visit Otolaryngology/Head & Neck/Facial Plastic Surgery [address] [place] [address] Joesph Yun MD [address] [place] [address] 10/01/2023 10:30 AM EDT Rehab Services Voice Lab, [facility] [address] [place] [address] Lance Samuels, [facility] [address] [facility] [place] [address] 10/01/2023 11:00 AM EDT Appointment Radiology, [facility] [address] [place] [address] 02/10/2024 10:00 AM EST Cardiac Studies Cardiology, [facility] [address] [facility] [place] [address] [facility] [place] [address] 02/13/2024 8:15 AM EST Cardiac Studies Cardiac Studies, [facility] [address] [place] [address] Health Maintenance Due Date Last Done Comments Zoster Vaccines (2 of 3) 07/17/2007 05/22/2007 COVID-19 Vaccine (2022- season) 2022 12/26/2021, 02/14/2021, 06/09/2020, Additional history exists DXA Scan 02/14/2023 02/14/2021, 09/2020, 07/02/2017, Additional history exists GFR 11/21/2023 05/21/2023, 07/2023, 05/13/2023, Additional history exists TSH 05/09/2024 05/10/2023, 04/11, 04/15/2023, Additional history exists CKD PHOS USE SMARTSET 50912 05/13/202407/2023, 05/13/2023, 05/12/2023, Additional history exists Albumin/Creatinine Ratio 05/20/2024 024, 06/08/2022, 06/08/2021 CKD HGB USE SMARTSET 96764 05/20/202405/20, 05/21/2023, 05/14/2023, Additional history exists Depression Screening 06/13/2024 06/14/2023 DTaP,Tdap,and Td Vaccines (2 - Td or Tdap) 08/14/2024 08/14/2014, 01/25/2000 Pneumococcal Vaccine: 65+ Years Completed 01/06/2015, 08/19/2007 VITAMIN D LEVEL ONCE IN A LIFETIME-USE SMARTSET# 47883 Completed 12/11/2018, 07/07/2018, 10/06/2010 Influenza Vaccine (FLU [...] this encounter Medical Devices Implanted Type Area Assistant Auto Center Manager Device Identifier Shelf Expiration Date Model / Serial / Lot [place] Pacemaker-12/05 Implanted:Qty: 1 on 12/05/2022 ICD Chest MED[employer] : CARDIAC SURGERY 09/02/2025 [id number] / / . Lead-12/05/2022 Implanted:Qty: 2 on 12/05/2022 Lead Chest [employer] : CARDIAC SURGERY 10/28/2025 5076 AND 3830 / / . Balloon Cath Pacing [id number] - [id number] Implanted:Qty: 1 on 09/20/2020 at [facility] BARD : MEDICAL [id number] 07/08/2022 520 007P / / [id number] Proglide Perclose 59069-46 X10 - [id number] Implanted:Qty: 1 on 09/20/2020 at [facility] [place] [facility] : VASCULAR DEVICES [id number] 06/08/2022 51220-45 / / [id number] Valve Bg 3 Ultra 23mm - [id number] Implanted:Qty: 1 on 09/20/2020 by Dimitri Maya MD at [facility] [employer] [id number] 09/22/2022 [id number] / / . Lead Tempo Temp Pacing - [id number] Implanted:Qty: 1 on 09/20/2020 at [facility] [employer] [id number] 06/28/2021 T1106 / / [id number] documented as of this encounter Advance Directives [...] the patient have Health Care Power of Accountant Cost? No Full Code 09/25/2020 6:44 PM 09/26/2020 6:50 PM This order reflects the patients wishes and were consensually agreed upon. Care Teams Leasing Specialist Relationship Specialty Start Date End Date Kalen Ribeiro MD [address] [place] [address] PCP - General 12/15/01 documented as of this encounter
--- OUTSIDE RECORDS SUMMARY | 2023-06-28 23:13 | External Medical Summary | Summary of Care ---
Author Name Unknown Organization [facility] Address [address] [place] [address] Phone [phone] Care Team Providers Care Chemical Laboratory Assistant Name Role Phone Kalen Ribeiro MD Primary Care Provider +1- [phone] Reason for Referral * Evaluate & Treat - Unlimited Visits (Within 10 days (routine)) - Authorized Specialty Diagnoses / Procedures Referred By Contac t Referred To Contact Gastroenterology Diagnoses Clostridioides difficile diarrhea Diarrhea of infectious origin Maria Teresa Parson MD [address] [place] [address] Referral ID Status Reason Start Date Expiration Date Visits Requested Visits Authorized [id number] Authorized Specialty Services Required 06/21/2023 999 999 Question Answer Referral Priority Within 10 days (routine) Where should this appointment be scheduled? [facility] For what condition is the patient being referred? All Gastro Conditions Comments Chronic diarrhea, failure to thrive, c diff Reason for Visit * Reason Onset Date Comments Diarrhea 06/21/2023 Encounter Details Date Type Department Care Team (Late st Contact Info) Description 06/21/2023 Telephone [facility] [place] [address] [place] [address] Maria Teresa Parson MD [address] [place] [address] Diarrhea Allergies Active Allergy Reactions Criticality Noted Date Comments Heparin 10/07/2020 Concern for HIT documented as of this encounter (statuses as of 06/21/2023) Medications Medication Sig Dispensed Refills Start Date [...] Active Potassium Chloride 20 MEQ/15ML (10%) Oral SolutionIndicati ons:Hypokalemia Take 20 meq (15 mL) by mouth once per day. 473 mL 5 06/14/2023 Active Fidaxomicin 200 MG Oral Tablet (Dificid)Indicat ions:Clostridioi otto difficile diarrhea,Diarrhe a of infectious origin Take 1 Tablet by mouth in the morning and 1 Tablet before bedtime. Do all this for 10 days. 20 Tablet 0 06/21/2023 4 Active Vancomycin HCl 125 MG Oral Capsule (Vancocin)Indica tions:Clostridio ides difficile diarrhea,Diarrhe a of infectious origin Take 1 Capsule by mouth every 6 hours for 10 days. For 7 days 40 Capsule 0 06/21/2023 4 Active Vancomycin HCl 125 MG Oral Capsule (Vancocin) Take 1 Capsule by mouth every 6 hours. For 6 days 0 4 Discontinued documented as of this encounter (statuses as of 06/21/2023) Active Problems Problem Noted Date Diagnosed Date [...] as of this encounter (statuses as of 06/21/2023) Resolved Problems Problem Noted Date Diagnosed Date [...] as of this encounter (statuses as of 06/21/2023) Immunizations Name Administration Dates Next Due COVID-19 mRNA, LNP-s, No Pre serve, 2-Dose Series (Moderna) 06/09/2020,05/12/2020 COVID-19, mRNA, LNP-s, PF, B ooster, 100mcg/0.5mg (Moderna) 02/14/2021 Covid-19, Mrna, Lnp-s, Pf, B ivalent, 30 Mcg, IM, 12 yrs and above ([employer]) 12/26/2021 Pneumococcal Conjugate Vacc, 13 Valent (Prevnar) [...] Progress Notes * Jeanie Villagran RN - 06/21/2023 11:25 AM EDT Stool order faxed to [facility]. Waiting on prior auth for antibiotic, Dr. Parson is aware Imer Villagran RN documented in this encounter Miscellaneous Notes * Telephone Encounter - Makayla Penny OSA - 06/21/2023 12:31 PM EDT Scheduled. LMOM with date and time on Jennifer's phone. 06/21/2023 * Telephone Encounter - Autumn Osullivan LPN - 06/21/2023 12:14 PM EDT Called and spoke with patients daughter and she is aware of information from Dr. Parson and is agreeable to referral and is very appreciative. Please assist in scheduling, thank you! * Addendum Note - Maria Teresa Parson MD - 06/21/2023 11:41 AM EDT Addended by: MARIA TERESA PARSON on: 06/21/2023 11:41 AM Modules accepted: Orders * Telephone Encounter - Maria Teresa Parson MD - 06/21/2023 11:40 AM EDT Nursing - please call pt's daughter to inform her: Since there will be a delay with fidaxomicin, will send in more vancomycin. Also recommend gastro referral for persistent diarrhea. AG * Telephone Encounter - Maria Teresa Parson MD - 06/21/2023 8:35 AM EDT Med ordered Repeat stool test * Telephone Encounter - Jeanie Villagran RN - 06/21/2023 8:[address] Parson, I just got a call from patient's daughter Jennifer Gonzalez, this is a Dr. Ribeiro patient-patient currently at [facility] after a hospitalization earlier in May-see discharge summary on your desk: S: Jennifer states patient has been having frequent loose bowel movements again O: Per Jennifer, patient is again having frequent loose bowel movements Patient was on Vancomycin for 5 days in the [facility], but she has completed the treatment Confirmed she is taking Cholestyramine BID with minimal help with loose bowel movements A: Phone Follow Up P: Jennifer requesting an antibiotic be ordered before the weekend, she is trying to prevent a readmission Not sure if Vancomycin could be ordered for longer? Do you want a stool sample? Can you order Imodium to take as needed? Please send any scripts to [facility]-thanks Jeanie Villagran RN documented in this encounter Plan of Treatment Upcoming Encounters Date Type Department Care Team (Late st Contact Info) Description 06/26/2023 9:30 AM EDT Office Visit Gastroenterology, [facility] [address] [address] Macario Lomas CRNP [address] [place] [address] 06/28/2023 8:00 AM EDT Office Visit [facility] [address] [place] [address] Kalen Ribeiro MD [address] [place] [address] 08/01/2023 3:00 PM EDT Office Visit Orthopaedics [facility] [address] [place] [address] Chava Huff PA-C [address] [place] [address] 09/09/2023 1:30 PM EDT Office Visit Cardiology, [facility] [address] [place] [address] Halley Preston CRNP [address] [facility] [place] [address] 09/19/2023 3:40 PM EDT Office Visit Otolaryngology/Head & Neck/Facial Plastic Surgery [address] [place] [address] Joesph Yun MD [address] [place] [address] 10/01/2023 10:30 AM EDT Rehab Services Voice Lab, [address] [address] Lance Samuels, [facility] [address] [facility] [address] 10/01/2023 11:00 AM EDT Appointment Radiology, [address] [address] 02/10/2024 10:00 AM EST Cardiac Studies Cardiology, [facility] [address] [facility] [address] [place] [address] [facility] [address] 02/13/2024 8:15 AM EST Cardiac Studies Cardiac Studies, [facility] [address] [facility] [address] Scheduled Orders Name Type Priority Associated Diagnoses Orde r Schedule CLOSTRIDIUM DIFFICILE, PCR Lab Routine Clostridioides difficile diarrhea Diarrhea of infectious origin Expected: 06/21/2023 (Approximate), Expires: 06/20/2024 Scheduled Referrals Name Type Priority Associated Diagnoses Order Schedule ADULT GASTROENTEROLOGY REFERRAL OP Referral Within 10 days (routine) Clostridioides difficile diarrhea Diarrhea of infectious origin Ordered: 06/21/2023 Health Maintenance Due Date Last Done Comments Zoster Vaccines (2 of 3) 07/17/2007 05/22/2007 COVID-19 Vaccine ( season) 2022 12/26/2021, 02/14/2021, 06/09/2020, Additional history exists DXA Scan 02/14/2023 02/14/2021, 09/2020, 07/02/2017, Additional history exists GFR 11/21/2023 05/21/2023, 07/2023, 05/13/2023, Additional history exists TSH 05/09/2024 05/10/2023, 04/11, 04/15/2023, Additional history exists CKD PHOS USE SMARTSET 30616 05/13/202407/2023, 05/13/2023, 05/12/2023, Additional history exists Albumin/Creatinine Ratio 05/20/2024 024, 06/08/2022, 06/08/2021 CKD HGB USE SMARTSET 07031 05/20/202405/20, 05/21/2023, 05/14/2023, Additional history exists Depression Screening 06/13/2024 06/14/2023 DTaP,Tdap,and Td Vaccines (2 - Td or Tdap) 08/14/2024 08/14/2014, 01/25/2000 Pneumococcal Vaccine: 65+ Years Completed 01/06/2015, 08/19/2007 VITAMIN D LEVEL ONCE IN A LIFETIME-USE SMARTSET# 14697 Completed 12/11/2018, 07/07/2018, 10/06/2010 Influenza Vaccine (FLU [...] this encounter Medical Devices Implanted Type Area Vaccine Specialist Device Identifier Shelf Expiration Date Model / Serial / Lot [place] Pacemaker-12/05 Implanted:Qty: 1 on 12/05/2022 ICD Chest [employer] : CARDIAC SURGERY 09/02/2025 [id number] / / . Lead-12/05/2022 Implanted:Qty: 2 on 12/05/2022 Lead Chest [employer] : CARDIAC SURGERY 10/28/2025 5076 AND 3830 / / . Balloon Cath Pacing [id number] - [id number] Implanted:Qty: 1 on 09/20/2020 at [facility]ARD : MEDICAL [id number] 07/08/2022 520 007P / / [id number] Proglide Perclose 75395-78 X10 - [id number] Implanted:Qty: 1 on 09/20/2020 at [facility] : VASCULAR DEVICES [id number] 06/08/2022 64919-74 / / [id number] Valve Bg 3 Ultra 23mm - [id number] Implanted:Qty: 1 on 09/20/2020 by Dimitri Maya MD at [facility] [employer] [id number] 09/22/2022 [id number] / / . Lead Tempo Temp Pacing - [id number] Implanted:Qty: 1 on 09/20/2020 at [facility] [employer] [id number] 06/28/2021 T1106 / / [id number] documented as of this encounter Visit Diagnoses Diagnosis Clostridioides difficile diarrhea- Primary Diarrhea of infectious origin Diarrhea of presumed infectious origin documented in this encounter Advance Directives Latest [...] the patient have Health Care Power of Eligibility Analyst? No Full Code 09/25/2020 6:44 PM 09/26/2020 6:50 PM This order reflects the patients wishes and were consensually agreed upon. Care Teams Chemical Laboratory Assistant Relationship Specialty Start Date End Date Kalen Ribeiro MD [address] [facility] [place] [address] PCP - General 12/15/01 documented as of this encounter
--- OUTSIDE RECORDS SUMMARY | 2023-06-28 23:13 | External Medical Summary | Summary of Care ---
Author Name Unknown Organization [facility] Address [address] [place] [address] Phone [phone] Care Team Providers Care Forest Ecology Professor Name Role Phone Kalen Ribeiro MD Primary Care Provider [phone]- [phone] Reason for Visit * Reason Onset Date Comments Diarrhea 06/21/2023 Encounter Details Date Type Department Care Team (Late st Contact Info) Description 06/21/2023 Telephone [facility] [address] [place] [address] Meryl Parson MD [address] [place] [address] Diarrhea Allergies Active Allergy Reactions [...] 06/14/2023 Active Fidaxomicin 200 MG Oral Tablet (Dificid)Indicati ons:Clostridioide [...] aorta 07/14/2021 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 Parson, I just got a call from patient's daughter Jennifer Gonzalez, this is a Dr. Ribeiro patient-patient currently at [facility] after a hospitalization earlier in May-see discharge [...] as needed? Please send any scripts to [facility] [place] [facility]-thanks Jeanie Villagran RN documented in this encounter Plan of Treatment Upcoming Encounters Date Type Department Care Team (Late st Contact Info) Description 06/28/2023 8:00 AM EDT Office Visit [facility] [address] [facility] [place] [address] Kalen Ribeiro MD [address] [place] [facility] [place] [address] 08/01/2023 3:00 PM EDT Office Visit Orthopaedics [facility] [address] [place] [address] Chava Huff PA-C [address] [place] [address] 09/09/2023 1:30 PM EDT Office Visit Cardiology, [facility] [address] [place] [address] Halley Preston CRNP [address] [place], [place] [address] 09/19/2023 3:40 PM EDT Office Visit Otolaryngology/Head & Neck/Facial Plastic Surgery [address] [place] [address] Joesph Yun MD [address] [place] [address] 10/01/2023 10:30 AM EDT Rehab Services Voice Lab, [address] [address] Lance Samuels, [facility]-NON DESTRUCTIVE TESTING INSPECTOR [facility] [place] [address] 10/01/2023 11:00 AM EDT Appointment Radiology, [facility] [address] [place] [address] 02/10/2024 10:00 AM EST Cardiac Studies Cardiology, [facility] [address] [facility] [place] [address] [facility] [address] [facility] [place] [address] 02/13/2024 8:15 AM EST Cardiac Studies Cardiac Studies, [facility] [address] [facility] [place] [address] Scheduled Orders Name Type Priority Associated Diagnoses Orde r Schedule CLOSTRIDIUM DIFFICILE, PCR Lab Routine Clostridioides difficile diarrhea Diarrhea of infectious origin Expected: 06/21/2023 (Approximate), Expires: 06/20/2024 Health Maintenance Due Date Last Done Comments Zoster Vaccines (2 of 3) 07/17/2007 05/22/2007 COVID-19 Vaccine ( season) 2022 12/26/2021, 02/14/2021, 06/09/2020, Additional history exists DXA Scan 02/14/2023 02/14/2021, 09/2020, 07/02/2017, Additional history exists GFR 11/21/2023 05/21/2023, 0 07/2023, 05/13/2023, Additional history exists TSH 05/09/2024 05/10/2023, 04/11, 04/15/2023, Additional history exists CKD PHOS USE SMARTSET 23937 05/13/20240 07/2023, 05/13/2023, 05/12/2023, Additional history exists Albumin/Creatinine Ratio 05/20/2024 024, 06/08/2022, 06/08/2021 CKD HGB USE SMARTSET 18256 05/20/202405/20, 05/21/2023, 05/14/2023, Additional history exists Depression Screening 06/13/2024 06/14/2023 DTaP,Tdap,and Td Vaccines (2 - Td or Tdap) 08/14/2024 08/14/2014, 01/25/2000 Pneumococcal Vaccine: 65+ Years Completed 01/06/2015, 08/19/2007 VITAMIN D LEVEL ONCE IN A LIFETIME-USE SMARTSET# 73816 Completed 12/11/2018, 07/07/2018, 10/06/2010 Influenza Vaccine (FLU [...] encounter Medical Devices Implanted Type Area Financial Solutions Advisor Device Identifier Shelf Expiration Date Model / Serial / Lot Molly Pacemaker-12/05 Implanted:Qty: 1 on 12/05/2022 ICD Chest MEDTRONIC : CARDIAC SURGERY 09/02/2025 [id number] / / . Lead-12/05/2022 Implanted:Qty: 2 on 12/05/2022 Lead Chest MEDTRONIC : CARDIAC SURGERY 10/28/2025 [id number] AND 3830 / / . Balloon Cath Pacing [id number] - [id number] Implanted:Qty: 1 on 09/20/2020 at [facility] BARD : MEDICAL [id number] 07/08/2022 520 007P / / [id number] Proglide Perclose 21242-90 X10 - [id number] Implanted:Qty: 1 on 09/20/2020 at [facility] : VASCULAR DEVICES [id number] 06/08/2022 21541-07 / / [id number] Valve Bg 3 Ultra 23mm - [id number] Implanted:Qty: 1 on 09/20/2020 by Dimitri Maya MD at [facility] [employer] [id number] 09/22/2022 [id number] / / . Lead Tempo Temp Pacing - [id number] Implanted:Qty: 1 on 09/20/2020 at [facility] [employer] [id number] 06/28/2021 [id number] / / [id number] documented as of this encounter Visit Diagnoses [...] the patient have Health Care Power of Suspect Artist? No Full Code 09/25/2020 6:44 PM 09/26/2020 6:50 PM This order reflects the patients wishes and were consensually agreed upon. Care Teams Forest Ecology Professor Relationship Specialty Start Date End Date Kalen Ribeiro MD [address] [place] [address] PCP - General 12/15/01 documented as of this encounter
--- OUTSIDE RECORDS SUMMARY | 2023-06-28 23:13 | External Medical Summary | Summary of Care ---
Author Name Unknown Organization [facility] Address [address] [place] [address] Phone [phone] Care Team Providers Care Subsystems Engineer Name Role Phone Kalen Ribeiro MD Primary Care Provider +1- [phone] Reason for Visit * Reason Onset Date Comments Medication Question 06/18/2023 Encounter Details Date Type Department Care Team (Late st Contact Info) Description 06/18/2023 Telephone [facility] [address] [place] [address] Kalen Ribeiro MD [address] [place] [address] Medication Question Allergies Active Allergy Reactions Criticality Noted Date Comments Heparin 10/07/2020 Concern for HIT documented as of this encounter (statuses as of 06/18/2023) Medications Medication Sig Dispensed Refills Start Date [...] by mouth in the morning. 0 Active Vancomycin HCl 125 MG Oral Capsule (Vancocin) Take 1 Capsule by mouth every 6 hours. For 6 days 0 Active Potassium Chloride 20 MEQ/15ML (10%) Oral SolutionIndicatio ns:Hypokalemia Take 20 meq (15 mL) by mouth once per day. 473 mL 5 06/14/2023 Active Lisinopril 2.5 MG Oral Tablet (Prinivil) Take 1 Tablet by mouth in the morning. 0 Discontinue d(Medicatio n List Clean Up) documented as of this encounter (statuses as of 06/18/2023) Active Problems Problem Noted Date Diagnosed Date [...] as of this encounter (statuses as of 06/18/2023) Resolved Problems Problem Noted Date Diagnosed Date [...] as of this encounter (statuses as of 06/18/2023) Immunizations Name Administration Dates Next Due COVID-19 [...] encounter Miscellaneous Notes * Telephone Encounter - Radha Felix RPh - 06/18/2023 10:03 AM EDT Spoke with home. Advised Lisinopril was discontinued 04/17/23 due to soft BP's. Home has been giving her lisinopril for the last week and a half. She has been having a few dizzy episodes. Home is not taking BP. Will stop Lisinopril. Advised Atorvastatin was discontinued. Thank you, Radha Felix PharmD, DARREL Clinical Pharmacist [facility] 06/18/23 10:06 AM [phone] * Telephone Encounter - Pretty Campo PHARM Tech - 06/18/2023 10:00 AM EDT viviana from [facility] called asking to go over pt's meds, was transferred to Radha Thank you, Pretty Campo CPhT Heating And Ventilating Worker II [facility] (formerly Telepharmacy) 06/18/2023,10:01 AM documented in this encounter Plan of Treatment Upcoming Encounters Date Type Department Care Team (Late st Contact Info) Description 06/20/2023 9:30 AM EDT Scheduled Telephone [facility] [address] [facility] [place] [address] Maia Shah RDN [address] [facility] [place] [address] 06/28/2023 8:00 AM EDT Office Visit [facility] [address] [place] [facility] [place] [facility] [place] [address] Kalen Ribeiro MD [address] [place] [address] 08/01/2023 3:00 PM EDT Office Visit Orthopaedics [facility] [address] [facility] [place] [address] Chava Huff PA-C [address] [facility] [place] [address] 09/09/2023 1:30 PM EDT Office Visit Cardiology, [facility] [address] [place] [address] Halley Preston CRNP [address] [facility] [place] [address] 09/19/2023 3:40 PM EDT Office Visit Otolaryngology/Head & Neck/Facial Plastic Surgery [address] [place] [address] Joesph Yun MD [address] [place] [address] 10/01/2023 10:30 AM EDT Rehab Services Voice Lab, [facility] [address] [place] [address] Lance Samuels, [facility] JAVA SOFTWARE ENGINEER [address] [facility] [place] [address] 10/01/2023 11:00 AM EDT Appointment Radiology, [facility] [address] [facility] [id number] 02/10/2024 10:00 AM EST Cardiac Studies Cardiology, [facility] [address] [facility] [place] [address] [facility] [address] [place] [address] 02/13/2024 8:15 AM EST Cardiac Studies Cardiac Studies, [facility] [address] [place] [address] Health Maintenance Due Date Last Done Comments Zoster Vaccines (2 of 3) 07/17/2007 05/22/2007 COVID-19 Vaccine (2022- season) 2022 12/26/2021, 02/14/2021, 06/09/2020, Additional history exists DXA Scan 02/14/2023 02/14/2021, 09/2020, 07/02/2017, Additional history exists GFR 11/21/2023 05/21/2023, 07/2023, 05/13/2023, Additional history exists TSH 05/09/2024 05/10/2023, 04/11, 04/15/2023, Additional history exists CKD PHOS USE SMARTSET 65827 05/13/202407/2023, 05/13/2023, 05/12/2023, Additional history exists Albumin/Creatinine Ratio 05/20/2024 024, 06/08/2022, 06/08/2021 CKD HGB USE SMARTSET 59212 05/20/202405/20, 05/21/2023, 05/14/2023, Additional history exists Depression Screening 06/13/2024 06/14/2023 DTaP,Tdap,and Td Vaccines (2 - Td or Tdap) 08/14/2024 08/14/2014, 01/25/2000 Pneumococcal Vaccine: 65+ Years Completed 01/06/2015, 08/19/2007 VITAMIN D LEVEL ONCE IN A LIFETIME-USE SMARTSET# 01182 Completed 12/11/2018, 07/07/2018, 10/06/2010 Influenza Vaccine (FLU [...] this encounter Medical Devices Implanted Type Area Superior Court Judge Device Identifier Shelf Expiration Date Model / Serial / Lot [place] Pacemaker-12/05 Implanted:Qty: 1 on 12/05/2022 ICD Chest MEDTRONIC : CARDIAC SURGERY 09/02/2025 [id number] / / . Lead-12/05/2022 Implanted:Qty: 2 on 12/05/2022 Lead Chest [employer] : CARDIAC SURGERY 10/28/2025 5076 AND 3830 / / . Balloon Cath Pacing [id number] - [id number] Implanted:Qty: 1 on 09/20/2020 at [facility] BARD : MEDICAL [id number] 07/08/2022 520 007P / / [id number] Proglide Perclose 01330-03 X10 - [id number] Implanted:Qty: 1 on 09/20/2020 at [facility] : VASCULAR DEVICES [id number] 06/08/2022 40006-82 / / [id number] Valve Bg 3 Ultra 23mm - [id number] Implanted:Qty: 1 on 09/20/2020 by Dimitri Maya MD at [facility] [employer] [id number] 09/22/2022 [id number] / / . Lead Tempo Temp Pacing - [id number] Implanted:Qty: 1 on 09/20/2020 at [facility] [employer] [id number] 06/28/2021 T1106 / / [id number] documented as of this encounter Advance Directives [...] the patient have Health Care Power of Post Acute Care Registered Nurse? No Full Code 09/25/2020 6:44 PM 09/26/2020 6:50 PM This order reflects the patients wishes and were consensually agreed upon. Care Teams Subsystems Engineer Relationship Specialty Start Date End Date Kalen Ribeiro MD [address] [place] [address] PCP - General 12/15/01 documented as of this encounter
--- OUTSIDE RECORDS SUMMARY | 2023-06-28 23:13 | External Medical Summary | Summary of Care ---
Author Name Unknown Organization [facility] Address [address] [place] [address] Phone [phone] Care Team Providers Care Engineering Intern Name Role Phone Kalen Ribeiro MD Primary Care Provider +1- [phone] Reason for Referral * Evaluate & Treat - Unlimited Visits (Within 10 days (routine)) - Authorized Specialty Diagnoses / Procedures Referred By Contac t Referred To Contact Gastroenterology Diagnoses Clostridioides difficile diarrhea Diarrhea of infectious origin Maria Teresa Carrillo MD [address] [place] [address] Referral ID Status Reason Start Date Expiration Date Visits Requested Visits Authorized [id number] Authorized Specialty Services Required 06/21/2023 999 999 [...] (Late st Contact Info) Description 06/21/[address] [facility] [place] [address] [place] [address] Maria Teresa Carrillo MD [address] [place] [address] Diarrhea Allergies Active Allergy Reactions [...] 30 Mcg, IM, 12 yrs and above ([employer]ro[employer]) 12/26/2021 Pneumococcal Conjugate Vacc, 13 Valent (Prevnar) [...] 11:25 AM EDT Stool order faxed to [facility]. Waiting on prior auth for antibiotic, Dr. Carrillo is aware Imer Villagran RN documented in this encounter Miscellaneous Notes * Addendum Note - Maria Teresa Carrillo MD - 06/21/2023 11:41 AM EDT Addended by: MARIA TERESA CARRILLO on: 06/21/2023 11:41 AM Modules accepted: Orders * Telephone Encounter - Maria Teresa Carrillo MD - 06/21/2023 11:40 AM EDT Nursing - please call pt's daughter to inform her: Since there will be a delay with fidaxomicin, will send in more vancomycin. Also recommend gastro referral for persistent diarrhea. AG * Telephone Encounter - Maria Teresa Carrillo MD - 06/21/2023 8:35 AM EDT Med ordered Repeat stool test * Telephone Encounter - Jeanie Villagran RN - 06/21/2023 8:[address] Carrillo, I just got a call from patient's daughter Jennifer Gonzalez, this is a Dr. Ribeiro patient-patient currently at [facility] after a hospitalization earlier in May-see discharge summary on your desk: S: Jennifer states patient has been having frequent loose bowel movements again O: Per Jennifer, patient is again having frequent loose bowel movements Patient was on Vancomycin for 5 days in the [place], but she has completed the treatment Confirmed [...] as needed? Please send any scripts to [facility]-thanks Jeanie Villagran, DONALD documented in this encounter Plan of Treatment Upcoming Encounters Date Type Department Care Team (Late st Contact Info) Description 06/28/2023 8:00 AM EDT Office Visit Located Within [facility] [address] [facility] [place] [id number] Kalen Ribeiro MD [address] [place] [address] 08/01/2023 3:00 PM EDT Office Visit Orthopaedics [facility] [address] [place] [address] Chava Huff PA-C [address] [place] [address] 09/09/2023 1:30 PM EDT Office Visit Cardiology, [facility] [address] [address] Halley Preston CRNP [address] [place] [address] 09/19/2023 3:40 PM EDT Office Visit Otolaryngology/Head & Neck/Facial Plastic Surgery [address] [place] [address] Joesph Yun MD [address] [place] [address] 10/01/2023 10:30 AM EDT Rehab Services Voice Lab, [facility] [address] [place] [address] Lance Samuels, [facility]-RETAIL LEASING AGENT [address] [place] [address] 10/01/2023 11:00 AM EDT Appointment Radiology, [address] [place] [address] 02/10/2024 10:00 AM EST Cardiac Studies Cardiology, [facility] [address] [facility] [place] [address] [place], Pacer [facility] [address] [facility] [place] [address] 02/13/2024 8:15 AM EST Cardiac Studies Cardiac Studies, [facility] [address] [facility] [place] [address] Scheduled Orders Name Type Priority Associated Diagnoses [...] Additional history exists CKD PHOS USE SMARTSET 96260 05/13/20240 07/2023, 05/13/2023, 05/12/2023, Additional history exists Albumin/Creatinine Ratio 05/20/20242 024, 06/08/2022, 06/08/2021 CKD HGB USE SMARTSET 14622 05/20/202405/20, 05/21/2023, 05/14/2023, Additional history exists Depression Screening 06/13/2024 06/14/2023 DTaP,Tdap,and Td Vaccines (2 - Td or Tdap) 08/14/2024 08/14/2014, 01/25/2000 Pneumococcal Vaccine: 65+ Years Completed 01/06/2015, 08/19/2007 VITAMIN D LEVEL ONCE IN A LIFETIME-USE SMARTSET# 02271 Completed 12/11/2018, 07/07/2018, 10/06/2010 Influenza Vaccine (FLU [...] this encounter Medical Devices Implanted Type Area Plant Technical Specialist Device Identifier Shelf Expiration Date Model / Serial / Lot [place] Pacemaker-12/05 Implanted:Qty: 1 on 12/05/2022 ICD Chest MEDTRONIC : CARDIAC SURGERY 09/02/2025 [id number] / / . Lead-12/05/2022 Implanted:Qty: 2 on 12/05/2022 Lead Chest MED[employer] : CARDIAC SURGERY 10/28/2025 5076 AND 3830 / / . Balloon Cath Pacing [id number] - [id number] Implanted:Qty: 1 on 09/20/2020 at [facility] BARD : MEDICAL [id number] 07/08/2022 520 007P / / [id number] Proglide Perclose 60817-93 X10 - [id number] Implanted:Qty: 1 on 09/20/2020 at [facility] : VASCULAR DEVICES [id number] 06/08/2022 02766-84 / / [id number] Valve Bg 3 Ultra 23mm - [id number] Implanted:Qty: 1 on 09/20/2020 by Dimitri Maya MD at [facility] [employer] [id number] 09/22/2022 [id number] / / . Lead Tempo Temp Pacing - [id number] Implanted:Qty: 1 on 09/20/2020 at [facility] [employer] [id number] 06/28/2021 T1106 / / [id number] documented as of this encounter Visit Diagnoses [...] the patient have Health Care Power of Dipping Machine Operator? No Full Code 09/25/2020 6:44 PM 09/26/2020 6:50 PM This order reflects the patients wishes and were consensually agreed upon. Care Teams Engineering Intern Relationship Specialty Start Date End Date Kalen Ribeiro MD [address] [place] [address] PCP - General 12/15/01 documented as of this encounter
--- OUTSIDE RECORDS SUMMARY | 2023-06-28 23:13 | External Medical Summary | Summary of Care ---
Author Name Unknown Organization [facility] Address [address] [place] [address] Phone [phone] Care Team Providers Care Speedboat Driver Name Role Phone Kalen iRbeiro MD Primary Care Provider +1- [phone] Reason for Referral * Evaluate & Treat - Unlimited Visits (Within 10 days (routine)) - Authorized Specialty Diagnoses / Procedures Referred By Contac t Referred To Contact Gastroenterology Diagnoses Clostridioides difficile diarrhea Diarrhea of infectious origin Maria Teresa Parson MD [address] [place] [address] Referral ID Status Reason Start Date Expiration Date Visits Requested Visits Authorized [id number] Authorized Specialty Services Required 06/21/2023 999 999 [...] (Late st Contact Info) Description 06/21/2023 Telephone [facility], [place] [address] [place] [address] Maria Teresa Parson MD [address] [place] [address] Diarrhea Allergies Active Allergy Reactions [...] 30 Mcg, IM, 12 yrs and above ([employer]) 12/26/2021 Pneumococcal Conjugate Vacc, 13 Valent (Prevnar) [...] 11:25 AM EDT Stool order faxed to [facility]. Waiting on prior auth for [...] is a Dr. Ribeiro patient-patient currently at [facility] after a hospitalization earlier in May-see discharge summary on your desk: S: Jennifer states patient has been having frequent loose bowel movements again O: Per Jennifer, patient is again having frequent loose bowel movements Patient was on Vancomycin for 5 days in the LONG TERM, but she has completed the treatment Confirmed [...] as needed? Please send any scripts to [facility]-thanks Jeanie Villagran, RN documented in this encounter Plan of Treatment Upcoming Encounters Date Type Department Care Team (Late st Contact Info) Description 06/28/2023 8:00 AM EDT Office Visit [facility] [address] [place] [address] Kalen Ribeiro MD [address] [place] [address] 08/01/2023 3:00 PM EDT Office Visit [facility]opaedics [facility] [place] [address] Chava Huff PA-C [address] [facility] [place] [address] 09/09/2023 1:30 PM EDT Office Visit Cardiology, [facility] 132 [facility] [place] [address] Halley Preston CRNP [address] [facility] [address] 09/19/2023 3:40 PM EDT Office Visit Otolaryngology/Head & Neck/Facial Plastic Surgery [address] [place] [facility] [place] [address] Joesph Yun MD [address] [place] [facility] [place] [address] 10/01/2023 10:30 AM EDT Rehab Services Voice Lab, [address] [place] [id number] Lance Samuels [facility]INTENAN[facility] DIRECTOR [address] [place] [address] 10/01/2023 11:00 AM EDT Appointment Radiology, [place] [address] [place] [address] 02/10/2024 10:00 AM EST Cardiac Studies Cardiology, [facility] 132 [facility] [place] [address] [place], Pacer Clinic [facility] 132 [facility] [place] [address] 02/13/2024 8:15 AM EST Cardiac Studies Cardiac Studies, [facility] 132 [facility] [place] [address] Scheduled Orders Name Type Priority Associated Diagnoses [...] Additional history exists CKD PHOS USE SMARTSET 83298 05/13/202407/2023, 05/13/2023, 05/12/2023, Additional history exists Albumin/Creatinine Ratio 05/20/2024 024, 06/08/2022, 06/08/2021 CKD HGB USE SMARTSET 64771 05/20/202405/20, 05/21/2023, 05/14/2023, Additional history exists Depression Screening 06/13/2024 06/14/2023 DTaP,Tdap,and Td Vaccines (2 - Td or Tdap) 08/14/2024 08/14/2014, 01/25/2000 Pneumococcal Vaccine: 65+ Years Completed 01/06/2015, 08/19/2007 VITAMIN D LEVEL ONCE IN A LIFETIME-USE SMARTSET# 77792 Completed 12/11/2018, 07/07/2018, 10/06/2010 Influenza Vaccine (FLU [...] encounter Medical Devices Implanted Type Area Director Life Insurance Device Identifier Shelf Expiration Date Model / Serial / Lot [place] Pacemaker-12/05 Implanted:Qty: 1 on 12/05/2022 ICD Chest MEDTR[employer]IC : CARDIAC SURGERY 09/02/2025 [id number] / / . Lead-12/05/2022 Implanted:Qty: 2 on 12/05/2022 Lead Chest [employer] : CARDIAC SURGERY 10/28/2025 [id number] AND 3830 / / . Balloon Cath Pacing [id number] - [id number] Implanted:Qty: 1 on 09/20/2020 at [facility] BARD : MEDICAL [id number] 07/08/2022 520 [id number] / / [id number] Proglide Perclose 63842-04 X10 - [id number] Implanted:Qty: 1 on 09/20/2020 at [facility] : VASCULAR DEVICES [id number] 06/08/2022 [id number] / / [id number] Valve Bg 3 Ultra 23mm - [id number] Implanted:Qty: 1 on 09/20/2020 by Dimitri Maya MD at [facility] [employer] [id number] 09/22/2022 [id number] / / . Lead Tempo Temp Pacing - [id number] Implanted:Qty: 1 on 09/20/2020 at [facility] [employer] [id number] 06/28/2021 [id number] / / [id number] documented as of this encounter Visit Diagnoses [...] the patient have Health Care Power of Plug Overwrap Machine Tender? No Full Code 09/25/2020 6:44 PM 09/26/2020 6:50 PM This order reflects the patients wishes and were consensually agreed upon. Care Teams Speedboat Driver Relationship Specialty Start Date End Date Kalen Ribeiro MD [address] [place] [address] PCP - General 12/15/01 documented as of this encounter
--- OUTSIDE RECORDS SUMMARY | 2023-06-28 23:13 | External Medical Summary | Summary of Care ---
Author Name Unknown Organization [facility] Address [address] [place] [address] Phone [phone] Care Team Providers Care Owner/Operator Name Role Phone Kalen Ribeiro MD Primary Care Provider +1- [phone] Reason for Visit * Reason Onset Date Comments Scheduling 06/11/2023 Encounter Details Date Type Department Care Team ([facility] st Contact Info) Description 06/11/2023 Telephone [facility], [place] [address] [place] [address] [phone] Services, Scheduling [address] [place] [address] Scheduling (///) Allergies Active Allergy Reactions Criticality Noted Date Comments Heparin 10/07/2020 Concern for HIT documented as of this encounter (statuses as of 06/12/2023) Medications Medication Sig Dispensed Refills Start Date [...] as of this encounter (statuses as of 06/12/2023) Active Problems Problem Noted Date Diagnosed Date [...] as of this encounter (statuses as of 06/12/2023) Resolved Problems Problem Noted Date Diagnosed Date [...] as of this encounter (statuses as of 06/12/2023) Immunizations Name Administration Dates Next Due COVID-19 mRNA, LNP-s, No Pre serve, 2-Dose Series (Moderna) 06/09/2020,05/12/2020 COVID-19, mRNA, LNP-s, PF, B ooster, 100mcg/0.5mg (Moderna) 02/14/2021 Covid-19, Mrna, Lnp-s, Pf, B ivalent, 30 Mcg, IM, 12 yrs and above ([employer]er[employer]) 12/26/2021 Pneumococcal Conjugate Vacc, 13 Valent (Prevnar) [...] encounter Miscellaneous Notes * Telephone Encounter - Svetlana Julien OSA - 06/11/2023 10:27 AM EDT Request to contact daughter to se landis interested in program continuing and I did and she said not needed anymore, she gets what she needs at new [facility] she is staying in. I closed the episode and removed banner for [facility] documented in this encounter Plan of Treatment Upcoming Encounters Date Type Department Care Team (Late st Contact Info) Description 06/20/2023 9:30 AM EDT Scheduled Telephone [facility], [facility] [address] [facility] [place] [address] Maia Shah RDN [address] [facility] [place] [address] 06/28/2023 8:00 AM EDT Office Visit [facility] [address] [place] [address] Kalen Ribeiro MD [address] [place] [address] 08/01/2023 3:00 PM EDT Office Visit [facility]opaedics [facility] [place] [address] Chava Huff PA-C [facility] [place] [address] 09/09/2023 1:30 PM EDT Office Visit Cardiology, [facility] [address] [place] [address] Halley Preston CRNP [address] [place] [address] 09/19/2023 3:40 PM EDT Office Visit Otolaryngology/Head & Neck/Facial Plastic Surgery [address] [facility] [place] [address] Joesph Yun MD [address] [place] [facility] [place] [address] 10/01/2023 10:30 AM EDT Rehab Services Voice Lab, [facility] [address] [place] [address] Lance Samuels, [facility] 132 [facility] [place] [address] 10/01/2023 11:00 AM EDT Appointment Radiology, [address] [phone] 02/10/2024 10:00 AM EST Cardiac Studies Cardiology, [facility] 132 [facility] [place] [address] [address] [facility] 132 [facility] [place] [address] 02/13/2024 8:15 AM EST Cardiac Studies Cardiac Studies, [facility] 132 [facility] [place] [address] Health Maintenance Due Date Last Done Comments Zoster Vaccines (2 of 3) 07/17/2007 05/22/2007 COVID-19 Vaccine ( season) 2022 12/26/2021, 02/14/2021, 06/09/2020, Additional history exists DXA Scan 02/14/2023 02/14/2021, 09/2020, 07/02/2017, Additional history exists GFR 11/21/2023 05/21/2023, 07/2023, 05/13/2023, Additional history exists Depression Screening 04/02/2024 04/02/2023 TSH 05/09/2024 05/10/2023, 04/11, 04/15/2023, Additional history exists CKD PHOS USE SMARTSET 16557 05/13/20244, 05/13/2023, 05/12/2023, Additional history exists Albumin/Creatinine Ratio 05/20/2024 024, 06/08/2022, 06/08/2021 CKD HGB USE SMARTSET 55240 05/20/202405/20, 05/21/2023, 05/14/2023, Additional history exists DTaP,Tdap,and Td Vaccines (2 - Td or Tdap) 08/14/2024 08/14/2014, 01/25/2000 Pneumococcal Vaccine: 65+ Years Completed 01/06/2015, 08/19/2007 VITAMIN D LEVEL ONCE IN A LIFETIME-USE SMARTSET# 56601 Completed 12/11/2018, 07/07/2018, 10/06/2010 Influenza Vaccine (FLU [...] this encounter Medical Devices Implanted Type Area Progressive Die Maker Device Identifier Shelf Expiration Date Model / Serial / Lot [place] Pacemaker-12/05 Implanted:Qty: 1 on 12/05/2022 ICD Chest MEDTRONIC : CARDIAC SURGERY 09/02/2025 [id number] / / . Lead-12/05/2022 Implanted:Qty: 2 on 12/05/2022 Lead Chest [employer] : CARDIAC SURGERY 10/28/2025 5076 AND 3830 / / . Balloon Cath Pacing [id number] - [id number] Implanted:Qty: 1 on 09/20/2020 at [facility] BARD : MEDICAL [id number] 07/08/2022 520 007P / / [id number] Proglide Perclose 04155-52 X10 - [id number] Implanted:Qty: 1 on 09/20/2020 at [facility] : VASCULAR DEVICES [id number] 06/08/2022 96272-77 / / [id number] Valve Bg 3 Ultra 23mm - [id number] Implanted:Qty: 1 on 09/20/2020 by Dimitri Maya MD at [facility] [employer] [id number] 09/22/2022 [id number] / / . Lead Tempo Temp Pacing - [id number] Implanted:Qty: 1 on 09/20/2020 at [facility] [email or web address] [id number] 06/28/2021 T1106 / / [id number] documented as of this encounter Additional Health Concerns Infection Onset Date Last Indicated Resolved Time C. difficile 05/12/2023 05/12/2023 06/11/2023 12:2 0 AM EDT documented as of this encounter Advance Directives [...] the patient have Health Care Power of Neon Glass Bender? No Full Code 09/25/2020 6:44 PM 09/26/2020 6:50 PM This order reflects the patients wishes and were consensually agreed upon. Care Teams Owner/Operator Relationship Specialty Start Date End Date Kalen Ribeiro MD [address] [place] [address] PCP - General 12/15/01 documented as of this encounter
--- OUTSIDE RECORDS SUMMARY | 2023-06-28 23:13 | External Medical Summary | Summary of Care ---
Author Name Unknown Organization [facility] Address [address] [place] [address] Phone [phone] Care Team Providers Care Mortising Machine Operator Name Role Phone Kalen Ribeiro MD Primary Care Provider +1- [phone] Reason for Visit * Reason Onset Date Comments Diarrhea 06/21/2023 Encounter Details Date Type Department Care Team (Late st Contact Info) Description 06/21/2023 Telephone [facility] [address] [place] [address] Meryl Parson MD [address] [place] [address] Diarrhea Allergies Active Allergy Reactions [...] aorta 07/14/2021 Atherosclerotic heart diseas e of [place] coronary artery with other forms of angina [...] 11:25 AM EDT Stool order fax[facility] to [facility] Waiting on prior auth for antibiotic, Dr. [...] is a Dr. Ribeiro patient-patient currently at [facility] after a hospitalization earlier in May-see discharge summary on your desk: S: Jennifer states patient has been having frequent loose bowel movements again O: Per Jennifer, patient is again having frequent loose bowel movements Patient was on Vancomycin for 5 days in the LONG-TERM, but she has completed the treatment Confirmed [...] as needed? Please send any scripts to [facility]-thanks Jeanie Villagran, RN documented in this encounter Plan of Treatment Upcoming Encounters Date Type Department Care Team (Late st Contact Info) Description 06/28/2023 8:00 AM EDT Office Visit [facility] [address] [place] [address] Kalen Ribeiro MD [address] [place] [address] 08/01/2023 3:00 PM EDT Office Visit Orthopaedics [facility] [address] [facility] [place] [address] Chava Huff PA-C [address] [facility] [place] [address] 09/09/2023 1:30 PM EDT Office Visit Cardiology, [facility] [address] [facility] [place] [address] Halley Preston CRNP [address] [place] [address] 09/19/2023 3:40 PM EDT Office Visit Otolaryngology/Head & Neck/Facial Plastic Surgery [address] [place] [address] Joesph Yun MD [address] [place] [address] 10/01/2023 10:30 AM EDT Rehab Services Voice Lab, [facility] [address] [place] [address] Lance Samuels, [facility] DENTAL ASSISTANT [address] [place] [address] 10/01/2023 11:00 AM EDT Appointment Radiology, [facility] [address] [place] [address] 02/10/2024 10:00 AM EST Cardiac Studies Cardiology, [facility] 132 [facility] [place] [address] [place], Pacer Clinic [facility] 132 [facility] [place] [address] 02/13/2024 8:15 AM EST Cardiac Studies Cardiac Studies, [facility] 132 [facility] [place] [address] Scheduled Orders Name Type Priority Associated Diagnoses [...] Additional history exists CKD PHOS USE SMARTSET 84142 05/13/20240 07/2023, 05/13/2023, 05/12/2023, Additional history exists Albumin/Creatinine Ratio 05/20/20242 024, 06/08/2022, 06/08/2021 CKD HGB USE SMARTSET 30289 05/20/202405/20, 05/21/2023, 05/14/2023, Additional history exists Depression Screening 06/13/2024 06/14/2023 DTaP,Tdap,and Td Vaccines (2 - Td or Tdap) 08/14/2024 08/14/2014, 01/25/2000 Pneumococcal Vaccine: 65+ Years Completed 01/06/2015, 08/19/2007 VITAMIN D LEVEL ONCE IN A LIFETIME-USE SMARTSET# 24088 Completed 12/11/2018, 07/07/2018, 10/06/2010 Influenza Vaccine (FLU [...] this encounter Medical Devices Implanted Type Area Blower Mechanic Device Identifier Shelf Expiration Date Model / Serial / Lot Molly Pacemaker-12/05 Implanted:Qty: 1 on 12/05/2022 ICD Chest MEDTRONIC : CARDIAC SURGERY 09/02/2025 [id number] / / . Lead-12/05/2022 Implanted:Qty: 2 on 12/05/2022 Lead Chest MED[employer] : CARDIAC SURGERY 10/28/2025 5076 AND 3830 / / . Balloon Cath Pacing [id number] - [id number] Implanted:Qty: 1 on 09/20/2020 at [facility] LABS [facility] BARD : MEDICAL [id number] 07/08/2022 520 007P / / [id number] Proglide Perclose 84348-73 X10 - [id number] Implanted:Qty: 1 on 09/20/2020 at [facility] : VASCULAR DEVICES [id number] 06/08/2022 87352-37 / / [id number] Valve Bg 3 Ultra 23mm - [id number] Implanted:Qty: 1 on 09/20/2020 by Dimitri Maya MD at [facility] [employer] [id number] 09/22/2022 [id number] / / . Lead Tempo Temp Pacing - [id number] Implanted:Qty: 1 on 09/20/2020 at [facility] [employer] [id number] 06/28/2021 T1106 / / [id number] documented as of this encounter Visit Diagnoses [...] the patient have Health Care Power of Histologist? No Full Code 09/25/2020 6:44 PM 09/26/2020 6:50 PM This order reflects the patients wishes and were consensually agreed upon. Care Teams Mortising Machine Operator Relationship Specialty Start Date End Date Kalen Ribeiro MD [address] [facility] [place] [address] PCP - General 12/15/01 documented as of this encounter
--- OUTSIDE RECORDS SUMMARY | 2023-06-28 23:13 | External Medical Summary | Summary of Care ---
Author Name Unknown Organization [facility] Address [address] [place] [address] Phone [phone] Care Team Providers Care Account Representative Name Role Phone Kalen Ribeiro MD Primary Care Provider +1- [phone] Reason for Visit * Reason Onset Date Comments Medical Nutrition Therapy 06/20/2023 Encounter Details Date Type Department Care Team (Latest Contact Info) Description 06/20/2023 9:30 AM EDT Scheduled Telephone [facility], [facility] [address] [place] [facility] [place] [address] Maia Shah, RDN [address] [place] [address] Severe protein-energy malnutrition (HCC)* Allergies Active Allergy Reactions Criticality Noted Date Comments Heparin 10/07/2020 Concern for HIT documented as of this encounter (statuses as of 06/20/2023) Medications Medication Sig Dispensed Refills Start Date [...] Active Rocklatan 0.02-0.005 % Ophthalmic Solution (Netarsudil-Latanop mracus) Instill 1 Drop into eye in the [...] MCG Oral Tablet (Levoxyl)Indication s:Hypothyroidism, unspecified type TAKE 1 TABLET BY MOUTH [...] Oral Tablet Chewable Take by mouth. 0 Activ e Vitamin B-1 100 MG Oral Tablet Take 1 Tablet by mouth in the morning. 0 Active Vancomycin HCl 125 MG Oral Capsule (Vancocin) Take 1 Capsule by mouth every 6 hours. For 6 days 0 Active Potassium Chloride 20 MEQ/15ML (10%) Oral SolutionIndications :Hypokalemia Take 20 meq (15 mL) by mouth once per day. 473 mL 5 06/14/2023 Active documented as of this encounter (statuses as of 06/20/2023) Active Problems Problem Noted Date Diagnosed Date [...] as of this encounter (statuses as of 06/20/2023) Resolved Problems Problem Noted Date Diagnosed Date [...] as of this encounter (statuses as of 06/20/2023) Immunizations Name Administration Dates Next Due COVID-19 mRNA, LNP-s, No Pre serve, 2-Dose Series (Moderna) 06/09/2020,05/12/2020 COVID-19, mRNA, LNP-s, PF, B ooster, 100mcg/0.5mg (Moderna) 02/14/2021 Covid-19, Mrna, Lnp-s, Pf, B ivalent, 30 Mcg, IM, 12 yrs and above ([employer]) 12/26/2021 Pneumococcal Conjugate Vacc, 13 Valent (Prevnar) [...] encounter Miscellaneous Notes * Telephone Encounter - Maia Shah RDN - 06/20/2023 7:39 AM EDT NUTRITION CONSULT - OUTPATIENT [facility] Name: Marie Nieves Location: [facility] Date: 06/20/2023 Time: 7:39 AM Upon review of EMR, Patient currently resides at a [facility] and is no longer enrolled in the [facility] (06/11/23), therefore, unable to complete Nutrition Referral/Consult as scheduled this date. No further appts will be scheduled. Reason for Referral: Malnutrition Maia Shah RDN [facility] documented in this encounter Plan of Treatment Upcoming Encounters Date Type Department Care Team (Late st Contact Info) Description 06/28/2023 8:00 AM EDT Office Visit [facility] [address] [place] [address] Kalen Ribeiro MD [address] [place] [address] 08/01/2023 3:00 PM EDT Office Visit Orthopaed[facility] [place] [address] Chava Huff PA-C [address] [place] [address] 09/09/2023 1:30 PM EDT Office Visit Cardiology, [facility] [address] [address] Halley Preston CRNP [address] [place] [address] 09/19/2023 3:40 PM EDT Office Visit Otolaryngology/Head & Neck/Facial Plastic Surgery [address] [place] [address] Joesph Yun MD [address] [place] [address] 10/01/2023 10:30 AM EDT Rehab Services Voice Lab, [address] [address] Lance Samuels, [facility] DEVELOPER [address] [place] [address] 10/01/2023 11:00 AM EDT Appointment Radiology, [address] [address] 02/10/2024 10:00 AM EST Cardiac Studies Cardiology, [facility] 132 [facility] [place] [address] [place] [facility] 132 [facility] [place] [address] 02/13/2024 8:15 AM EST Cardiac Studies Cardiac Studies, [facility] 132 [facility] [place] [address] Health Maintenance Due Date Last Done Comments Zoster Vaccines (2 of 3) 07/17/2007 05/22/2007 COVID-19 Vaccine (2022- season) 2022 12/26/2021, 02/14/2021, 06/09/2020, Additional history exists DXA Scan 02/14/2023 02/14/2021, 09/2020, 07/02/2017, Additional history exists GFR 11/21/2023 05/21/2023, 030 07/2023, 05/13/2023, Additional history exists TSH 05/09/2024 05/10/2023, 04/11, 04/15/2023, Additional history exists CKD PHOS USE SMARTSET 16686 05/13/20240 07/2023, 05/13/2023, 05/12/2023, Additional history exists Albumin/Creatinine Ratio 05/20/2024 024, 06/08/2022, 06/08/2021 CKD HGB USE SMARTSET 39376 05/20/202405/20, 05/21/2023, 05/14/2023, Additional history exists Depression Screening 06/13/2024 06/14/2023 DTaP,Tdap,and Td Vaccines (2 - Td or Tdap) 08/14/2024 08/14/2014, 01/25/2000 Pneumococcal Vaccine: 65+ Years Completed 01/06/2015, 08/19/2007 VITAMIN D LEVEL ONCE IN A LIFETIME-USE SMARTSET# 23264 Completed 12/11/2018, 07/07/2018, 10/06/2010 Influenza Vaccine (FLU [...] this encounter Medical Devices Implanted Type Area Forklift Wheel Loader Device Identifier Shelf Expiration Date Model / Serial / Lot [place] Pacemaker-12/05 Implanted:Qty: 1 on 12/05/2022 ICD Chest MED[employer] : CARDIAC SURGERY 09/02/2025 [id number] / / . Lead-12/05/2022 Implanted:Qty: 2 on 12/05/2022 Lead Chest [employer] : CARDIAC SURGERY 10/28/2025 5076 AND 3830 / / . Balloon Cath Pacing [id number] - [id number] Implanted:Qty: 1 on 09/20/2020 at [facility] [place] : MEDICAL [id number] 07/08/2022 520 007P / / [id number] Proglide Perclose 85410-24 X10 - [id number] Implanted:Qty: 1 on 09/20/2020 at [facility] : VASCULAR DEVICES [id number] 06/08/2022 83103-23 / / [id number] Valve Bg 3 Ultra 23mm - [id number] Implanted:Qty: 1 on 09/20/2020 by Dimitri Maya MD at [facility] [employer] [id number] 09/22/2022 [id number] / / . Lead Tempo Temp Pacing - [id number] Implanted:Qty: 1 on 09/20/2020 at [facility] [email or web address] [id number] 06/28/2021 [id number] / / [id number] documented as of this encounter Visit Diagnoses Diagnosis Severe protein-energy malnutrition (HCC)- Primary Other severe protein-calorie malnutrition documented in this encounter Advance Directives Latest [...] the patient have Health Care Power of Apartment Maintenance? No Full Code 09/25/2020 6:44 PM 09/26/2020 6:50 PM This order reflects the patients wishes and were consensually agreed upon. Care Teams Account Representative Relationship Specialty Start Date End Date Kalen Ribeiro MD [address] [facility] [place] [address] PCP - General 12/15/01 documented as of this encounter
--- OUTSIDE RECORDS SUMMARY | 2023-06-28 23:13 | External Medical Summary | Summary of Care ---
Author Name Unknown Organization [facility] Address [address] [place] [address] Phone [phone] Care Team Providers Care Chef French Name Role Phone Kalen Ribeiro MD Primary Care Provider [phone]- [phone] Reason for Visit * Reason Onset Date Comments Med Request 06/14/2023 Liquid potassium Encounter Details Date Type Department Care Team (Late st Contact Info) Description 06/14/2023 Telephone [facility] [address] [place] [address] Kalen Ribeiro MD [address] [place] [address] Med Request (Liquid potassium ) Allergies Active Allergy Reactions Criticality Noted Date Comments Heparin 10/07/2020 Concern for HIT documented as of this encounter (statuses as of 06/17/2023) Medications Medication Sig Dispensed Refills Start Date [...] by mouth in the morning. 0 Active Lisinopril 2.5 MG Oral Tablet (Prinivil) [...] as of this encounter (statuses as of 06/17/2023) Active Problems Problem Noted Date Diagnosed Date [...] as of this encounter (statuses as of 06/17/2023) Resolved Problems Problem Noted Date Diagnosed Date [...] as of this encounter (statuses as of 06/17/2023) Immunizations Name Administration Dates Next Due COVID-19 [...] encounter Miscellaneous Notes * Telephone Encounter - Miriam Canas LPN - 06/17/2023 2:11 PM EDT Leonor return calling. Informed of message. Pt is on the liquid potassium 20meq/15ml she takes 15 ml daily. [facility] receiveda RX already. No further questions. * Telephone Encounter - Adriane Adkins LPN - 06/17/2023 2:07 PM EDT Called [facility], Nurse Leonor was not available, left a message and a call back number. * Telephone Encounter - Kalen Ribeiro MD - 06/14/2023 12:44 PM EDT No dose is listed. Pt has had a few admissions since I have seen her last - the last discharge summary states 20 meq once per day. Please confirm that is the current dose that she is taking. Also, pharmacy in our system has a slightly different address than was listed in message and no pharmacy pre-entered - so please confirm that it was sent to [facility] and received. * Telephone Encounter - Valencia Nieves OSA - 06/14/2023 9:07 AM EDT An order was requested for this patient. Name of Requesting Provider: Clayton Galvez Order Requested: liquid potassium Diagnosis/Reason for Request: cannot swallow pills any longer If order request is for Mammogram: Is the patient having any breast symptoms? N/A Is there a chance of ? N/A Has the patient had any breast problems in the past? NA What location AND department does the patient wish to have their order completed at? na Fax Number, if applicable: na Requesting script be sent to the following pharmacy [facility] [address] [phone] If the caller is not a current patient, please advise the patient to call their current PCP to havethe order's prior to being seen in our office. The patient was informed that our providers would not order anything (medication, labs, etc.) prior to being seen. documented in this encounter Plan of Treatment Upcoming Encounters Date Type Department Care Team (Late st Contact Info) Description 06/20/2023 9:30 AM EDT Scheduled Telephone [facility], [facility] [address] [facility] [address] Maia Shah RDN [address] [facility] [place] [address] 06/28/2023 8:00 AM EDT Office Visit [facility] [address] [place] [address] Kalen Ribeiro MD [address] [place] [address] 08/01/2023 3:00 PM EDT Office [facility] [address] [facility] [place] [address] Chava Huff PA-C [address] [place] [address] 09/09/2023 1:30 PM EDT Office Visit Cardiology, [facility] [address] [place] [address] Halley Preston CRNP [address] [place] [address] 09/19/2023 3:40 PM EDT Office Visit Otolaryngology/Head & Neck/Facial Plastic Surgery [address] [place] [facility] [place] [address] Joesph Yun MD [address] [place] [address] 10/01/2023 10:30 AM EDT Rehab Services Voice Lab, [facility] [address] [place] [address] Lance Samuels, [facility] [address] [facility] [address] 10/01/2023 11:00 AM EDT Appointment Radiology, [facility] [address] [place] [address] 02/10/2024 10:00 AM EST Cardiac Studies Cardiology, [facility] [address] [facility] [address] [place] [address] [facility] [address] 02/13/2024 8:15 AM EST Cardiac Studies Cardiac Studies, [facility] [address] [facility] [address] Health Maintenance Due Date Last Done Comments Zoster Vaccines (2 of 3) 07/17/2007 05/22/2007 COVID-19 Vaccine ( season) 2022 12/26/2021, 02/14/2021, 06/09/2020, Additional history exists DXA Scan 02/14/2023 02/14/2021, 09/2020, 07/02/2017, Additional history exists GFR 11/21/2023 05/21/2023, 07/2023, 05/13/2023, Additional history exists TSH 05/09/2024 05/10/2023, 04/11, 04/15/2023, Additional history exists CKD PHOS USE SMARTSET 16881 05/13/2024 07/2023, 05/13/2023, 05/12/2023, Additional history exists Albumin/Creatinine Ratio 05/20/2024 024, 06/08/2022, 06/08/2021 CKD HGB USE SMARTSET 19726 05/20/202405/20, 05/21/2023, 05/14/2023, Additional history exists Depression Screening 06/13/2024 06/14/2023 DTaP,Tdap,and Td Vaccines (2 - Td or Tdap) 08/14/2024 08/14/2014, 01/25/2000 Pneumococcal Vaccine: 65+ Years Completed 01/06/2015, 08/19/2007 VITAMIN D LEVEL ONCE IN A LIFETIME-USE SMARTSET# 82957 Completed 12/11/2018, 07/07/2018, 10/06/2010 Influenza Vaccine (FLU [...] this encounter Medical Devices Implanted Type Area Mixing And Dispensing Supervisor Device Identifier Shelf Expiration Date Model / Serial / Lot [place] Pacemaker-12/05 Implanted:Qty: 1 on 12/05/2022 ICD Chest [employer] : CARDIAC SURGERY 09/02/2025 [id number] / / . Lead-12/05/2022 Implanted:Qty: 2 on 12/05/2022 Lead Chest [employer] : CARDIAC SURGERY 10/28/2025 [id number] / / . Balloon Cath Pacing [id number] - [id number] Implanted:Qty: 1 on 09/20/2020 at [facility]ARD : MEDICAL [id number] 07/08/2022 [id number] / / [id number] Proglide Perclose [id number] X10 - [id number] Implanted:Qty: 1 on 09/20/2020 at [facility] : VASCULAR DEVICES [id number] 06/08/2022 [id number] / / [id number] Valve Bg 3 Ultra 23mm - [id number] Implanted:Qty: 1 on 09/20/2020 by Dimitri Maya MD at [facility] [employer] [id number] 09/22/2022 [id number] / / . Lead Tempo Temp Pacing - [id number] Implanted:Qty: 1 on 09/20/2020 at [facility] [employer] [id number] 06/28/2021 [id number] / / [id number] documented as of this encounter Visit Diagnoses Diagnosis Hypokalemia- Primary Hypopotassemia documented in this encounter Advance Directives Latest [...] have Health Care Power of Email Marketing Assistant? No Full Code 09/25/2020 6:44 PM 09/26/2020 6:50 PM This order reflects the patients wishes and were consensually agreed upon. Care Teams Chef French Relationship Specialty Start Date End Date Kalen Ribeiro MD [address] [place] [address] PCP - General 12/15/01 documented as of this encounter
--- OUTSIDE RECORDS SUMMARY | 2023-06-28 23:14 | External Medical Summary | Summary of Care ---
Author Name Unknown Organization [facility] Address [address] [place] [address] Phone [phone] Care Team Providers Care Professional Employer Consultant Name Role Phone Kalen Ribeiro MD Primary Care Provider [phone]- [phone] Reason for Visit * Reason Onset Date Comments Hospital Follow-Up Pt here today for a hospital discharge follow up Hospital Follow-Up 06/10/2023 Encounter Details Date Type Department Care Team (Late st Contact Info) Description 05/21/2023 2:00 PM EDT Office Visit [facility] [address] [place] [address] Kalen Ribeiro MD [address] [place] [address] C. difficile colitis*; Age-related osteoporosis without current pathological fracture; Chronic kidney disease, stage 3a ([facility]); Hospital discharge follow-up; Longstanding persistent atrial fibrillation (HCC); S/P TAVR (transcatheter aortic valve replacement); Severe protein-energy malnutrition (HCC); Generalized weakness; Anorexia Allergies Active Allergy Reactions Criticality Noted Date Comments Heparin 10/07/2020 Concern for HIT documented as of this encounter (statuses as of 06/10/2023) Medications Medication Sig Dispensed Refills Start Date [...] MOUTH DAILY 90 Tablet 3 3 Active Additional Information Patient not taking.Reported on [...] per day. 90 Tablet 1 4 Active Culturelle Oral Capsule Take 1 Capsule by mouth two times per day (morning & before bedtime). 60 Capsule 0 4 06/13/19 24 Active Mirtazapine 15 MG Oral Tablet (Remeron) Take 1 Tablet by mouth at bedtime. 30 Tablet 0 4 Active Levothyroxine Sodium 100 MCG Oral Tablet (Levoxyl)Indicatio ns:Hypothyroidism, unspecified type Take 1 Tablet by mouth in the morning. (at least 30 min prior to breakfast or other meds). 90 Tablet 3 3 05/26/19 24 Discontinued Vancomycin HCl 50 MG/ML Oral Solution Reconstituted Take 2.5 mL by mouth every 6 hours for 9 days. Discard excess medication. 150 mL 0 4 05/23/19 24 documented as of this encounter (statuses as of 06/10/2023) Active Problems Problem Noted Date Diagnosed Date [...] aorta 07/14/2021 Atherosclerotic heart diseas e of [place] coronary artery with other forms of angina [...] as of this encounter (statuses as of 06/10/2023) Resolved Problems Problem Noted Date Diagnosed Date [...] as of this encounter (statuses as of 06/10/2023) Immunizations Name Administration Dates Next Due COVID-19 mRNA, LNP-s, No Pre serve, 2-Dose Series (Moderna) 06/09/2020,05/12/2020 COVID-19, mRNA, LNP-s, PF, B ooster, 100mcg/0.5mg (Moderna) 02/14/2021 Covid-19, Mrna, Lnp-s, Pf, B ivalent, 30 Mcg, IM, 12 yrs and above ([facility]) 12/26/2021 Pneumococcal Conjugate Vacc, 13 Valent (Prevnar) [...] Sign Reading Time Taken Comments Blood Pressure 128/78 05/21/2023 2:23 PM EDT Pulse 73 05/21/2023 2:23 PM EDT Temperature 36.6 C (97.8 F) 05/21/2023 2:23 PM ED T Respiratory Rate 16 05/21/2023 2:23 PM EDT Oxygen Saturation 97% 05/21/2023 2:23 PM EDT Inhaled Oxygen Concentration - - Weight 46 kg (101 lb 6.4 oz) 05/21/2023 2:23 PM EDT Height - - Body Mass Index 21.94 05/17/2023 11:11 AM EST documented in this [...] this encounter Patient Instructions * Patient Instructions* Missy Mendoza LPN - 05/21/2023 2:25 PM EDT Osteoporosis: Screening for Bone Loss The strength of bones is measured by their density (thickness). High bone density means bones are less likely to fracture. If you are at risk for bone loss, your healthcare provider may refer you forbone density testing. Bone Density Testing Bone density testing is safe, quick, easy, and painless. Testing can detect osteoporosis before a fracture happens. It can also predict the risk of future fractures. And testing can measure the response to treatment. There are two types of tests that you may have: Peripheral tests are used for screening. They measure density in the finger, wrist, knee, cano, or heel. A common peripheral test is the quantitative ultrasound (QUS). Central tests are used for diagnosis. They measure density in the hip or spine. The main centraltest is the dual energy x-ray absorptiometry (DXA). The DXA is the standard bone density test. Who Should Be Tested? All postmenopausal women under age 65, with one or more risk factors in addition to menopause. All women age 65 and older. Postmenopausal women with fractures. Women who are thinking about treatment for osteoporosis. Women who have been on hormone therapy for a long time. Men or women with certain medical conditions or who are taking certain medications (such as glucocorticoids or prednisone) for a long period. Common Testing Sites Any bone can fracture, but with osteoporosis some bones fracture more easily. These include bones in the spine, wrist, shoulder, and hip. Thats why bone density testing may be done at one or more of these sites. Understanding Your Results The results of your test may seem confusing at first. Dont be afraid to ask your provider to explain. Your bone mineral density (BMD) describes the thickness of the bone that was scanned. Your healthcare provider will compare your BMD with the BMD of young, healthy bone. The result is called a T-score. Bones remodel at different rates. So, a healthy T-score in the wrist doesnt mean the spine is also healthy. Thats why more than one site may be scanned. [address] [place] [address]. All rights reserved. This information is not intended as a substitute for professional medical care. Always follow your healthcare professional's instructions documented in this encounter Progress Notes * Kalen Ribeiro MD - 06/10/2023 8:50 PM EDT Subjective: Marie Nieves is a 83 year old female here today for Chief Complaint Patient presents with Hospital Follow-Up Pt here today for a hospital discharge follow up Hospital Follow-Up Presents for hospital follow up. [facility] 05/10/[facility] - 05/14/23. Found to have c diff colitis. Tolerating treatments. Seeing some improvement in symptoms. Still weak with poor appetite. Past Medical History: Diagnosis Date Closed fracture [...] performed by Andrew Dudley MD at [facility]OS[facility] COLONOSCOPY, DIAGNOSTIC (RECTUM) 06/20/2017 adenomatous polyp, diverticulosis/COLONOSCOPY FLEXIBLE PROXIMAL DIAGNOSTIC performed by Andrew Dudley MD at ENDOSCOPY [facility] DEXA SCAN/BONE MINERAL AXIAL 2006 osteoporosis, repeat 2 years DILATION AND CURETTAGE (D&C) unsure why ECHO (2-D COMPLETE) 10/12 Mild LVH, aortic scler - no stenosis EGD, FLEXIBLE, DIAGNOSTIC N/A 04/05/2023 ESOPHAGOGASTRODUODENOSCOPY (EGD), FLEXIBLE, TRANSORAL, DIAGNOSTIC performed by Manjit Webb MD at OR [facility] FRACTURE NOS 10/12 L Tibial Plateau ORIF LIGATE/CUT OVIDUCT(S) LIGATION/BIOPSY OF TEMPORAL ARTERY Left 06/18/2016 06/18/2016 left temportal artery bx dx benign - [facility] Dr. Garcia LUMBAR / SACRAL EPIDURAL, SINGLE LEVEL 10/04/2015 INJECTION TRANSFORAMINAL EPIDURAL LUMBAR OR SACRAL performed by David Costello DO at [facility] LUMBAR / SACRAL EPIDURAL, SINGLE LEVEL 10/25/2015 INJECTION TRANSFORAMINAL EPIDURAL LUMBAR OR SACRAL performed by David Costello DO at [facility] MISCELLANEOUS ORDER ([facility] ONLY) 12/15 excision lipoma forehead REPLACE AORTIC VALVE, PERCUTANEOUS FEMORAL N/A 09/20/2020 REPLACE AORTIC VALVE, PERCUTANEOUS FEMORAL performed by Dimitri Maya MD at [facility] REPLACE AORTIC VALVE, PERCUTANEOUS FEMORAL N/A 09/20/2020 REPLACE AORTIC VALVE, PERCUTANEOUS FEMORAL performed by Alexys Almazan MD, PhD at [facility] TOTAL ABD HYSTERECTOMY W/WO REMOVAL OF TUBE(S) [...] the morning and 1 Drop before bedtime. Pantoprazole Sodium 40 MG Oral Tablet Delayed [...] then once per day. 90 Tablet 1 Culturelle Oral Capsule Take 1 Capsule by mouth two times per day (morning & before bedtime). 60 Capsule 0 Mirtazapine 15 MG Oral Tablet (Remeron) Take 1 Tablet by mouth at bedtime. 30 Tablet 0 Furosemide 20 MG Oral Tablet (Lasix) TAKE ONE TABLET BY MOUTH DAILY (Patient not taking: Reported on 05/21/2023) 90 Tablet 3 Levothyroxine Sodium 100 MCG Oral Tablet (Levoxyl) TAKE 1 TABLET BY MOUTH EVERY MORNING AT LEAST 30MINUTES PRIOR TO BREAKFAST OR OTHER MEDICATIONS 90 Tablet 1 No current facility-administered medications for this visit. Objective: BP 128/78 | Pulse 73 | Temp 36.6 C (97.8 F) (Infrared ) | Resp 16 | Wt 46 kg (101 lb6.4 oz) | SpO2 97% | BMI 21.94 kg/m | BSA 1.36 m GEN: NAD HEENT: Benign NECK: Supple with no LAD, TM, JVD CHEST: CTA B CV: RRR ABD: Soft, NT/ND, No HSM, NABS EXT: No c,c,e Assessment and Plan: C. difficile colitis (Primary) -complete course of treatment. Appears to be having some improvement. Call for new or worsening symptoms. Age-related osteoporosis without current pathological fracture - DEXA SCAN/BONE MINERAL AXIAL; Future; Expected date: 05/21/2023 Chronic kidney disease, stage 3a (HCC) - ALBUMIN / CREATININE RATIO, URINE; Future; Expected date: 05/21/2023 Hospital discharge follow-up - DISCH MED RECON CUR MED LIS Longstanding persistent atrial fibrillation (HCC) S/P TAVR (transcatheter aortic valve replacement) Severe protein-energy malnutrition (HCC) Generalized weakness Anorexia Kalen Ribeiro MD * Missy Mendoza LPN - 05/21/2023 2:25 PM EDT Dexa scan ordered today. Provider aware. Missy Mendoza LPN Urine albumin/creatinine ratio ordered today. Provider aware. documented in this encounter Nursing Notes * Missy Mendoza LPN - 05/21/2023 2:20 PM EDT Chief Complaint Patient presents with Hospital Follow-Up Pt here today for a hospital discharge follow up documented in this encounter Plan of Treatment Upcoming Encounters Date Type Department Care Team (Late st Contact Info) Description 06/18/2023 4:00 PM EDT Office Visit Hematology/Oncology [facility] [address] [facility] [place] [address] Rigoberto Aguilera MD [address] [facility] [place] [address] 06/20/2023 9:30 AM EDT Scheduled Telephone [facility], [facility] [address] [facility] [place] [address] Maia Shah, RDN [address] [facility] [place] [address] 06/28/2023 8:00 AM EDT Office Visit [facility] [address] [place] [address] Kalen Ribeiro MD [address], [place] [address] 08/01/2023 3:00 PM EDT Office Visit Orthopaedics [facility] [address] [place] [address] Chava Huff PA-C [address] [place] [address] 09/09/2023 1:30 PM EDT Office Visit [facility]iology, [facility] [place] [address] Halley Preston CRNP [address] [facility] [place] [address] 09/19/2023 3:40 PM EDT Office Visit Otolaryngology/Head & Neck/Facial Plastic Surgery [address] [place] [address] Joesph Yun MD [address] [place] [address] 10/01/2023 10:30 AM EDT Rehab Services Voice Lab, [facility] [address] [place] [address] Lance Samuels, [facility] SURRENDER CALCULATOR [address] [facility] [place] [address] 10/01/2023 11:00 AM EDT Appointment Radiology, [facility] [address] [place] [address] 02/10/2024 10:00 AM EST Cardiac Studies Cardiology, [facility] [address] [facility] [place] [address] [facility] [address] [place] [address] 02/13/2024 8:15 AM EST Cardiac Studies Cardiac Studies, [facility] [address] [place] [address] Scheduled Orders Name Type Priority Associated Diagnoses Orde r Schedule DEXA SCAN/BONE MINERAL AXIAL Medical Imaging Routine Age-related osteoporosis without current pathological fracture Expected: 05/21/2023 (Approximate), Expires: 06/20/2024 Health Maintenance Due Date Last Done Comments Zoster Vaccines (2 of 3) 07/17/2007 05/22/2007 COVID-19 Vaccine ( season) 2022 12/26/2021, 02/14/2021, 06/09/2020, Additional history exists DXA Scan 02/14/2023 02/14/2021, 09/2020, 07/02/2017, Additional history exists GFR 11/21/2023 05/21/2023, 07/2023, 05/13/2023, Additional history exists Depression Screening 04/02/2024 04/02/2023 TSH 05/09/2024 05/10/2023, 0205/2023, 04/15/2023, Additional history exists CKD PHOS USE SMARTSET 27801 05/13/202407/2023, 05/13/2023, 05/12/2023, Additional history exists Albumin/Creatinine Ratio 05/20/2024 024, 06/08/2022, 06/08/2021 CKD HGB USE SMARTSET 40671 05/20/202405/20, 05/21/2023, 05/14/2023, Additional history exists DTaP,Tdap,and Td Vaccines (2 - Td or Tdap) 08/14/2024 08/14/2014, 01/25/2000 Pneumococcal Vaccine: 65+ Years Completed 01/06/2015, 08/19/2007 VITAMIN D LEVEL ONCE IN A LIFETIME-USE SMARTSET# 26612 Completed 12/11/2018, 07/07/2018, 10/06/2010 Influenza Vaccine (FLU [...] this encounter Medical Devices Implanted Type Area Neurosurgery Physician Device Identifier Shelf Expiration Date Model / Serial / Lot Molly Pacemaker-12/05 Implanted:Qty: 1 on 12/05/2022 ICD Chest [employer] : CARDIAC SURGERY 09/02/2025 [id number] / / . Lead-12/05/2022 Implanted:Qty: 2 on 12/05/2022 Lead Chest [employer] : CARDIAC SURGERY 10/28/2025 [id number] AND 3830 / / . Balloon Cath Pacing [id number] - [id number] Implanted:Qty: 1 on 09/20/2020 at [facility] BARD : MEDICAL [id number] 07/08/2022 520 [id number] / / [id number] Proglide Perclose 51109-93 X10 - [id number] Implanted:Qty: 1 on 09/20/2020 at [facility] : VASCULAR DEVICES [id number] 06/08/2022 [id number] / / [id number] Valve Bg 3 Ultra 23mm - [id number] Implanted:Qty: 1 on 09/20/2020 by Dimitri Maya MD at [facility] [employer] [id number] 09/22/2022 [id number] / / . Lead Tempo Temp Pacing - [id number] Implanted:Qty: 1 on 09/20/2020 at [facility] [employer] [id number] 06/28/2021 [id number] / / [id number] documented as of this encounter Results * (ABNORMAL) ALBUMIN / CREATININE RATIO, URINE (05/21/2023 3:56 PM EDT) Albumin, Random Urine 16.25 mg/dL 05/21/2023 10:30 PM EDT LAB[facility]ORY [facility] Creatinine, Random Urine 147 mg/dL 05/21/2023 10:30 PM EDT LAB[facility]ATORY [facility] Albumin / Creatinine Ratio, Urine 111(H) <30 mg/g Creat 05/21/2023 10:30 PM EDT LAB[facility]ATORY [facility] Urine Urine specimen / Unknown Non-blood Collection / Unknown 05/21/2023 3:56 PM EDT 05/21/2023 3:56 PM EDT Narrative [facility] - 05/21/2023 10:30 PM EDT Normal: <30 mg/g creatinine High: 30-300 mg/g creatinine Very High: >300 mg/g creatinine Nephrotic: >2200 mg/g creatinine Kalen Ribeiro MD LAB URINE ORDERABL ES [facility] [address] [place] [address] documented in this encounter Visit Diagnoses Diagnosis C. difficile colitis- Primary Intestinal infection due to clostridium difficile Age-related osteoporosis without current pathological fracture Senile osteoporosis Chronic kidney disease, stage 3a (HCC) Hospital discharge follow-up Other follow-up examination Longstanding persistent atrial fibrillation (HCC) S/P TAVR (transcatheter aortic valve replacement) Heart valve replaced by other means Severe protein-energy malnutrition (HCC) Other severe protein-calorie malnutrition Generalized weakness Other malaise and fatigue Anorexia documented in this encounter Additional Health Concerns [...] the patient have Health Care Power of Coding Spec? No Full Code 09/25/2020 6:44 PM 09/26/2020 6:50 PM This order reflects the patients wishes and were consensually agreed upon. Care Teams Professional Employer Consultant Relationship Specialty Start Date End Date Kalen Ribeiro MD [address] [facility] [address] PCP - General 12/15/01 documented as of this encounter"
--- OUTSIDE RECORDS SUMMARY | 2023-06-28 23:34 | External Medical Summary | Summary of Care ---
Author Name Unknown Organization [facility] Address [address] [place] [address] Phone [phone] Care Team Providers Care Eviction Specialist Name Role Phone Kalen Ribeiro MD Primary Care Provider [phone]- [phone] Encounter Details Date Type Department Care Team (Late st Contact Info) Description 03/28/2023 Telephone Otolaryngology [facility] [address] [place] [address] Brandt Reyes PA-C [address] [facility] [place] [address] Allergies Active Allergy Reactions Criticality Noted Date Comments Heparin 10/07/2020 Concern for HIT documented as of this encounter (statuses as of 06/27/2023) Medications Medication Sig Dispensed Refills Start Date [...] and 1 Drop before bedtime. 0 Active VITAMIN B-12 500 MCG OR TABS 2 Tablets. 0 04/26/2003 4 Discontinued(Med ication List Clean Up) Amoxicillin 500 MG Oral Capsule (Amoxil)Indicati ons:S/P TAVR (transcatheter aortic valve replacement) Take 4 Caps by mouth once as needed (prior to dental work) for up to 1 dose. Take 4 capsules 1 hour prior to any dental work 4 Cap 4 11/10/2020 4 Discontinued Biotin 5 MG Oral Capsule Take 2 Capsules by mouth in the morning. 0 4 Discontinued(Med ication List Clean Up) Furosemide 20 MG Oral Tablet (Lasix) TAKE ONE TABLET BY MOUTH DAILY 90 Tablet 3 04/13/2022 4 Discontinued(Pat ient preference/disco ntinuation) Levothyroxine Sodium 100 MCG Oral Tablet (Levoxyl)Indicat ions:Hypothyroid ism, unspecified type Take 1 Tablet by mouth in the morning. (at least 30 min prior to breakfast or other meds). 90 Tablet 3 06/12/2022 4 Discontinued Pantoprazole Sodium 40 MG Oral Tablet Delayed Release (Protonix) TAKE 1 TABLET BY MOUTH ONCE DAILY 90 Tablet 1 12/17/2022 4 Discontinued(Pat ient preference/disco ntinuation) Famotidine 20 MG Oral Tablet (Pepcid) Take 1 Tablet by mouth in the morning and 1 Tablet before bedtime. 60 Tablet 11 12/25/2022 4 Discontinued(Pat ient preference/disco ntinuation) Atorvastatin Calcium 20 MG Oral Tablet (Lipitor)Indicat ions:Dyslipidemi a, goal LDL below 70 TAKE 1 TABLET BY MOUTH ONCE DAILY 90 Tablet 3 01/03/2023 4 Discontinued(Pat ient preference/disco ntinuation) Lisinopril 2.5 MG Oral Tablet (Prinivil) Take 1 Tablet by mouth in the morning. 30 Tablet 11 02/27/2023 4 Discontinued documented as of this encounter (statuses as of 06/27/2023) Active Problems Problem Noted Date Diagnosed Date [...] as of this encounter (statuses as of 06/27/2023) Resolved Problems Problem Noted Date Diagnosed Date [...] as of this encounter (statuses as of 06/27/2023) Immunizations Name Administration Dates Next Due COVID-19 [...] encounter Miscellaneous Notes * Telephone Encounter - Gustabo Hernandez OSA - 03/28/2023 2:02 PM EST Spoke with daughter Jennifer to set up Fluoro Swallowing Function Test in [place]. First available was September 04. Daughter is not ok with waiting until August. Offered [place] location to see if something sooner was available there and said I would ask if something sooner in [place] I wasn't ableto find. If something sooner in [place] please contact patients daughter Jennifer to schedule. documented in this encounter Plan of Treatment Upcoming Encounters Date Type Department Care Team (Late st Contact Info) Description 06/28/2023 10:00 AM EDT Office Visit [facility] [address] [place] [address] Kalen Ribeiro MD [address] [place] [address] 08/01/2023 3:00 PM EDT Office Visit Orthopaedics [facility] [address] [address] Chava Huff PA-C [address] [place] [address] 09/09/2023 1:30 PM EDT Office Visit Cardiology, [facility] [address] [place] [address] Halley Preston CRNP [address] [place] [address] 09/19/2023 3:40 PM EDT Office Visit Otolaryngology/Head & Neck/Facial Plastic Surgery [address] [place] [address] Joesph Yun MD [address] [place] [address] 10/01/2023 10:30 AM EDT Rehab Services Voice Lab, [facility] [address] [place] [address] Lance Samuels, [facility] [employer] [address] [place] [address] 10/01/2023 11:00 AM EDT Appointment Radiology, [facility] [address] [place] [address] 02/10/2024 10:00 AM EST Cardiac Studies Cardiology, [facility] [address] [facility] [place] [address] [facility] [address] [place] [address] 02/13/2024 8:15 AM EST Cardiac Studies Cardiac Studies, [facility] [address] [facility] [place] [address] Health Maintenance Due Date Last Done Comments Zoster Vaccines (2 of 3) 07/17/2007 05/22/2007 COVID-19 Vaccine (2022- season) 2022 12/26/2021, 02/14/2021, 06/09/2020, Additional history exists DXA Scan 02/14/2023 02/14/2021, 09/2020, 07/02/2017, Additional history exists GFR 11/21/2023 05/21/2023, 030 07/2023, 05/13/2023, Additional history exists TSH 05/09/2024 05/10/2023, 04/11, 04/15/2023, Additional history exists CKD PHOS USE SMARTSET 57601 05/13/20240 07/2023, 05/13/2023, 05/12/2023, Additional history exists Albumin/Creatinine Ratio 05/20/2024 024, 06/08/2022, 06/08/2021 CKD HGB USE SMARTSET 01520 05/20/202405/20, 05/21/2023, 05/14/2023, Additional history exists Depression Screening 06/13/2024 06/14/2023 DTaP,Tdap,and Td Vaccines (2 - Td or Tdap) 08/14/2024 08/14/2014, 01/25/2000 Pneumococcal Vaccine: 65+ Years Completed 01/06/2015, 08/19/2007 VITAMIN D LEVEL ONCE IN A LIFETIME-USE SMARTSET# [id number] Completed 12/11/2018, 07/07/2018, 10/06/2010 Influenza Vaccine (FLU [...] this encounter Medical Devices Implanted Type Area Carbon Brush Maker Device Identifier Shelf Expiration Date Model / Serial / Lot [place] Pacemaker-12/05 Implanted:Qty: 1 on 12/05/2022 ICD Chest [employer] : CARDIAC SURGERY 09/02/2025 [id number] / / . Lead-12/05/2022 Implanted:Qty: 2 on 12/05/2022 Lead Chest [employer] : CARDIAC SURGERY 10/28/2025 [id number] AND [id number] / / . Balloon Cath Pacing [id number] - [id number] Implanted:Qty: 1 on 09/20/2020 at [facility] : MEDICAL [id number] 07/08/2022 [id number] / / [id number] Proglide Perclose 80521-70 X10 - [id number] Implanted:Qty: 1 on 09/20/2020 at [facility] : VASCULAR DEVICES [id number] 06/08/2022 [id number] / / [id number] Valve Bg 3 Ultra 23mm - [id number] Implanted:Qty: 1 on 09/20/2020 by Dimitri Maya MD at [facility] [employer] [id number] 09/22/2022 [id number] / / . Lead Tempo Temp Pacing - [id number] Implanted:Qty: 1 on 09/20/2020 at [facility] [place] [employer] [id number] 06/28/2021 [id number] / / [id number] documented as of this encounter Additional Health Concerns Infection Onset Date Last Indicated Resolved Time C. difficile Rule-Out 04/25/2023 04/25/20232023 1:59 PM EST Gastrointestinal Rule-Out 05/11/2023 05/11/2023 10:18 AM EST C. difficile Rule-Out 05/12/2023 05/12/20232023 6:37 PM EST C. difficile 05/12/2023 05/12/2023 06/11/2023 12:2 0 [...] the patient have Health Care Power of Cut Filer? No Full Code 09/25/2020 6:44 PM 09/26/2020 6:50 PM This order reflects the patients wishes and were consensually agreed upon. Care Teams Eviction Specialist Relationship Specialty Start Date End Date Kalen Ribeiro MD [address] [facility] [place] [address] PCP - General 12/15/01 documented as of this encounter
[2023-06-29 05:23] LABS: Hematocrit (blood only) 29.4 % (37.0-47.0); Hemoglobin 9.5 g/dl (12.0-16.0); Mean Corpuscular Hemoglobin 29.1 pg (25.0-34.0); Mean Corpuscular Hgb Conc 32.3 g/dL (32.0-36.0); Mean Corpuscular Volume 90.2 fL (80.0-100.0); Mean Platelet Volume 9.6 fL (9.4-12.4); Platelet Count 310 K/uL (130-400); RDW Coefficient of Variation 18.4 % (11.5-14.5); RDW Standard Deviation 59.7 fL (36.4-46.3); Red Blood Count 3.26 M/uL (4.20-5.40); White Blood Count 22.57 K/ul (4.8-10.8)
[2023-06-29 05:35] LABS: BUN Creatinine Ratio 16.7 (10-20); Calcium 7.9 mg/dl (8.6-10.3); Est GFR (African American) 59.7 ml/min; Est GFR (Non-African American) 51.5 ml/min; Potassium 3.5 mmol/L (3.5-5.1)
--- NOTE | 2023-06-29 05:57 | Electrocardiogram Report ---
Test Reason : Blood Pressure : / mmHG Vent. Rate : 075 BPM Atrial Rate : 075 BPM P-R Int : 172 ms QRS Dur : 092 ms QT Int : 372 ms P-R-T Axes : 000 -16 033 degrees QTc Int : 415 ms AV dual-paced rhythm Abnormal ECG When compared with ECG of 31-MAY-2023 19:19, Vent. rate has decreased BY 12 BPM Confirmed by Crescencio Justin ([id number]) on 06/29/2023 5:57:20 AM Referred By: REFERRED SELF Confirmed By:Ethan Justin
[2023-06-29 06:41] LABS: Basophils # (auto) 0.05 K/uL (0.00-0.20); Basophils % (auto) 0.2 %; Echinocytes 1+; Eosinophils # (auto) 0.12 K/uL (0.00-0.50); Eosinophils % (auto) 0.5 %; Immature Granulocytes # (auto) 0.33 K/uL (0.01-0.20); Immature Granulocytes % (auto) 1.5 %; Lymphocytes # (auto) 0.79 K/uL (1.20-3.40); Lymphocytes % (auto) 3.5 %; Monocytes # (auto) 0.69 K/uL (0.11-0.59); Monocytes % (auto) 3.1 %; Neutrophils # (auto) 20.59 K/uL (1.40-6.50); Neutrophils % (auto) 91.2 %; Ovalocytes 1+; Polychromasia 1+
--- NOTE | 2023-06-29 13:46 | Hospitalist Progress Note ---
Date of Service June 29, 2023 Assessment & Plan (1) Failure to thrive in adult: Plan 83-year-old lady with PMH of chronic diastolic heart failure [EF 60 to 64%, TTE 2023], SSS s/p PPM not on anticoagulation due to bleeding, valvular heart disease [severe s/p TAVR], nonocclusive CAD, HTN, HLD, pulmonary thromboembolism, HIT, GERD, hypothyroidism, history of temporal arteritis, chronic anemia [baseline hemoglobin of 10], C. difficile presented to the ED from [facility] for evaluation decreased p.o. intake, BLE swelling, increasing weakness. Patient reports no hunger, denies aspiration/febrile illness/shortness of breath/chest pain. She is being managed for the following: Failure to thrive in an elderly Likely severe malnutrition Hyponatremia: Likely secondary to poor appetite. Patient reports having poor appetite at baseline, per EMR weight around 52.1 kg in February 2023, has decreased down to 43-46 Kg at during last admission. 48 kg this admission, likely increased BLE edema contributing to wt gain here. Pt does appear cachectic, lean , weak, frail. Encourage p.o. intake. Dietitian consult. Monitor replete electrolytes. BLE swelling likely 2/2 poor nutrition/lack of mobility. DVT ruled out. Pt w/ very poor appetite at baseline, c/w rameron, No improvement in intake has been noted. Pt and her dtr historically were not interested in alternative nutrition methods. megestrol contraindicated in the patient. Goals of care discussion: Palliative care on board. Discussed with palliative care 06/27, plan to discharge patient on hospice, Saturday. If patient were to decline, moved to comfort care. Otherwise just keep her stable for now. d/w pt's dtr Suri 06/28 - no lab, no heart monitor, plan for hospice to facility come saturday after meeting w/ palliative. Loose stool: As an outpatient, patient on p.o. vancomycin and colestipol. Continue. Better controlled per d/w RN. Mild troponin elevation: Appears chronic. Patient with no chest pain. Continue telemetry monitoring. EKG with paced rhythm. Prediabetes: DM2 has been ruled out during last admission though A1c 6.8. Other chronic medical conditions: Continue with/resume home meds as and when able. chronic diastolic heart failure, equivocal volume status, patient intravascularly dry but with bilateral leg swelling hx SSS status post PPM not on anticoagulation due to bleeding, paced rhythm valvular heart disease (severe status post TAVR, mild MR/TR) hx nonocclusive CAD hypertension, stable hyperlipidemia, on statin Rx history of pulmonary thromboembolism Heparin-induced thrombocytopenia as per records hypothyroidism, euthyroid as of today's TSH chronic anemia, hemoglobin at baseline Recent C. difficile history status post vancomycin Rx Palliative on board, plan for discharge with hospice on Saturday. med surg until then. DVT prophylaxis. Arixtra (history of HIT) DNR Please note the above document was generated using voice recognition software. It may contain grammatical, syntax or spelling errors. Any formal questions or concerns about the content, text or information contained within the body of thi s dictation should be directly addressed to the undersigned for clarification. Admission and Anticipated Discharge Date Admission Date: June 28, 2023 Subjective Patient was seen and examined at bedside. Patient was lying in bed, on room air, NAD. Patient reports no hunger, has not been eating much per RN, no new acute event overnight, no bowel movement so far per RN. Patient not much ambulatory per RN. Patient appears weak and frail. Physical Exam Physical Exam: GENERAL: Apathetic, pleasant, slightly hard of hearing, no respiratory distress SKIN: Pallor, warm HEENT: Pale palpebral conjunctivae, no ptosis, dry buccal mucosa NECK : Supple, no tenderness CHEST : Decreased breath sounds, no tenderness HEART : RRR, systolic murmur ABDOMEN: no distention, nontender EXTREMITIES : Bilateral LE swelling, no LE tenderness, no other conspicuous deformities noted NEUROLOGIC : Coherent, no facial asymmetry, hearing impairment, gait and stance not assessed Results & Data Results & Data Vital Signs (Past 12 Hours) Vital Signs Pulse Resp BP Pulse Ox Pulse Ox O2 Del Method O2 Del Method 06/29/23 13:00 60 16 99 06/29/23 13:00 97/63 L 06/29/23 12:00 65 18 98 06/29/23 12:00 106/70 06/29/23 11:00 93/66 L 06/29/23 11:00 65 15 98 06/29/23 10:00 62 15 98 06/29/23 10:00 95/63 L 06/29/23 09:00 66 16 98 04/20/24 09:00 100/62 06/29/23 08:00 70 19 98 06/29/23 08:00 103/69 06/29/23 07:17 66 06/29/23 07:00 70 19 91 06/29/23 05:19 97 Room Air 06/29/23 05:00 78 18 105/69 97 Room Air 06/29/23 03:00 72 16 93/69 L 96 Room Air 06/29/23 02:00 162/97 H 95 06/29/23 01:46 98 Room Air
--- OUTSIDE RECORDS SUMMARY | 2023-06-29 20:01 | External Medical Summary | Summary of Care ---
Author Name Unknown Organization [facility] Address [address] [place] [address] Phone [phone] Care Team Providers Care Cutting Machine Tender Name Role Phone Kalen Ribeiro MD Primary Care Provider +1- [phone] Reason for Visit * Reason Onset Date Comments Medical Nutrition Therapy 06/28/2023 Encounter Details Date Type Department Care Team (Late st Contact Info) Description 06/28/2023 3:00 PM EDT Scheduled Telephone [facility] [address] [place] [address] Ciara Mac RDN [address] [place] [address] Allergies Active Allergy Reactions Criticality Noted Date Comments Heparin 10/07/2020 Concern for HIT documented as of this encounter (statuses as of 06/28/2023) Medications Medication Sig Dispensed Refills Start Date [...] on 06/26/2023 Fidaxomicin 200 MG Oral Tablet (Dificid)Indicatio ns:Clostridioides [...] days 40 Capsule 0 06/21/2023 07/01/2023 Active Potassium Chloride 10 MEQ Oral Packet Take by mouth. 0 Ac tive Vancomycin HCl 125 MG Oral Capsule (Vancocin) Take 1 Capsule by mouth in the morning and 1 Capsule at noon and 1 Capsule in the evening and 1 Capsule before bedtime. 120 Capsule 5 06/26/2023 12/23/2023 Active Vancomycin HCl 125 MG Oral Capsule (Vancocin) Take 1 Capsule by mouth in the morning and 1 Capsule at noon and 1 Capsule in the evening and 1 Capsule before bedtime. 120 Capsule 5 06/26/2023 12/23/2023 Active Colestipol HCl 1 GM Oral Tablet (Colestid) 2 tabs daily 180 Tablet 3 06/26/2023 Active Colestipol HCl 1 GM Oral Tablet (Colestid) 2 tabs by mouth once daily 180 Tablet 3 06/26/2023 Active documented as of this encounter (statuses as of 06/28/2023) Active Problems Problem Noted Date Diagnosed Date [...] as of this encounter (statuses as of 06/28/2023) Resolved Problems Problem Noted Date Diagnosed Date Resolved Date Sepsis 04/15/2023 05/10/2023 Oropharyngeal dysphagia 03/18/202305/09 Primary open angle glaucoma (POAG) 03/29/2022 12/25/2022 [...] as of this encounter (statuses as of 06/28/2023) Immunizations Name Administration Dates Next Due COVID-19 [...] Telephone Encounter - Ciara Mac RDN - 06/28/2023 8:35 AM EDT Contacted pt's daughter, Jennifer to follow-up with her from initial nutrition visit from May 16. She states pt was taken to the hospital last evening due to weakness and lower extremity swelling. States she has been eating and drinking very poorly. Per her report, pt's last time of drinking fluidswas Saturday and last food eaten was an egg yesterday. Daughter states medical providers are discussing "end of life" concerns with her. Asked her if she had any questions or concerns I could assist with-she denies any at this time and expresses appreciation for the call. Ciara Mac RDN, Clinical Dietitian II, [facility] Clinical Nutrition Services [facility] [address] [place] [address] Available via [employer]R Portal documented in this encounter Plan of Treatment Upcoming Encounters Date Type Department Care Team (Late st Contact Info) Description 08/01/2023 3:00 PM EDT Office Visit Orthopaedics [facility] [address] [place] [address] Chava Huff PA-C [address] [place] [address] 09/09/2023 1:30 PM EDT Office Visit Cardiology, [facility] [address] [place] [address] Halley Preston CRNP [address] [place] [address] 09/19/2023 3:40 PM EDT Office Visit Otolaryngology/Head & Neck/Facial Plastic Surgery [address] [place] [address] Joesph Yun MD [address] [place] [address] 10/01/2023 10:30 AM EDT Rehab Services Voice Lab, [facility] [address] [place] [address] Lance Samuels, [facility] [address] [place] [address] 10/01/2023 11:00 AM EDT Appointment Radiology, [facility] [address] [facility] [id number] 02/10/2024 10:00 AM EST Cardiac Studies Cardiology, [facility] [address] [place] [address] [facility] [address] [place] [address] 02/13/2024 8:15 AM EST Cardiac Studies Cardiac Studies, [facility] [address] [place] [address] Health Maintenance Due Date Last Done Comments Zoster Vaccines (2 of 3) 07/17/2007 05/22/2007 COVID-19 Vaccine (2022- season) 2022 12/26/2021, 02/14/2021, 06/09/2020, Additional history exists DXA Scan 02/14/2023 02/14/2021, 09/2020, 07/02/2017, Additional history exists GFR 11/21/2023 05/21/2023, 07/2023, 05/13/2023, Additional history exists TSH 05/09/2024 05/10/2023, 04/11, 04/15/2023, Additional history exists CKD PHOS USE SMARTSET 75448 05/13/202407/2023, 05/13/2023, 05/12/2023, Additional history exists Albumin/Creatinine Ratio 05/20/2024 024, 06/08/2022, 06/08/2021 CKD HGB USE SMARTSET 87146 05/20/202405/20, 05/21/2023, 05/14/2023, Additional history exists Depression Screening 06/13/2024 06/14/2023 DTaP,Tdap,and Td Vaccines (2 - Td or Tdap) 08/14/2024 08/14/2014, 01/25/2000 Pneumococcal Vaccine: 65+ Years Completed 01/06/2015, 08/19/2007 VITAMIN D LEVEL ONCE IN A LIFETIME-USE SMARTSET# [id number] Completed 12/11/2018, 07/07/2018, 10/06/2010 Influenza Vaccine (FLU [...] this encounter Medical Devices Implanted Type Area City Recorder Device Identifier Shelf Expiration Date Model / Serial / Lot [place] Pacemaker-12/05 Implanted:Qty: 1 on 12/05/2022 ICD Chest [employer] : CARDIAC SURGERY 09/02/2025 [id number] / / . Lead-12/05/2022 Implanted:Qty: 2 on 12/05/2022 Lead Chest [employer] : CARDIAC SURGERY 10/28/2025 [id number] AND 3830 / / . Balloon Cath Pacing [id number] - [id number] Implanted:Qty: 1 on 09/20/2020 at [facility] CR BARD : MEDICAL [id number] 07/08/2022 520 [id number] / / [id number] Proglide Perclose 22650-81 X10 - [id number] Implanted:Qty: 1 on 09/20/2020 at [facility] : VASCULAR DEVICES [id number] 06/08/2022 [id number] / / [id number] Valve Bg 3 Ultra 23mm - [id number] Implanted:Qty: 1 on 09/20/2020 by Dimitri Maya MD at [facility] [employer] [id number] 09/22/2022 [id number] / / . Lead Tempo Temp Pacing - [id number] Implanted:Qty: 1 on 09/20/2020 at [facility] [email or web address] [id number] 06/28/2021 [id number] / / [id number] documented as of this encounter Advance Directives [...] the patient have Health Care Power of Manager Housekeeping? No Full Code 09/25/2020 6:44 PM 09/26/2020 6:50 PM This order reflects the patients wishes and were consensually agreed upon. Care Teams Cutting Machine Tender Relationship Specialty Start Date End Date Kalen Ribeiro MD [address] [place] [address] PCP - General 12/15/01 documented as of this encounter
--- OUTSIDE RECORDS SUMMARY | 2023-06-29 20:01 | External Medical Summary | Summary of Care ---
Author Name Unknown Organization [facility] Address [address] [place] [address] Phone [phone] Care Team Providers Care Allergy Physician Name Role Phone Kalen Ribeiro MD Primary Care Provider [phone] Reason for Visit * Reason Onset Date Comments Hospital Follow-Up Pt here today for a hospital discharge follow up Hospital Follow-Up 06/10/2023 Encounter Details Date Type Department Care Team (Late st Contact Info) Description 05/21/2023 2:00 PM EDT Office Visit [facility] [address] [place] [address] Kalen Ribeiro MD [address] [place] [address] C. difficile colitis*; Age-related osteoporosis without current pathological fracture; Chronic kidney disease, stage 3a ([facility]); Hospital discharge follow-up; Longstanding persistent atrial fibrillation [...] per day. 90 Tablet 1 4 Active Mirtazapine 15 MG Oral Tablet (Remeron) Take 1 Tablet by mouth at bedtime. 30 Tablet 0 4 Active Furosemide 20 MG Oral Tablet (Lasix) TAKE ONE TABLET BY MOUTH DAILY 90 Tablet 3 3 06/14/19 24 Discontinued(Pat ient preference/disco ntinuation) Levothyroxine Sodium 100 MCG Oral Tablet (Levoxyl)Indicatio ns:Hypothyroidism, unspecified type Take 1 Tablet by mouth in the morning. (at least 30 min prior to breakfast or other meds). 90 Tablet 3 3 05/26/19 24 Discontinued Pantoprazole Sodium 40 MG Oral Tablet Delayed Release (Protonix) TAKE 1 TABLET BY MOUTH ONCE DAILY 90 Tablet 1 3 06/14/19 24 Discontinued(Pat ient preference/disco ntinuation) Famotidine 20 MG Oral Tablet (Pepcid) Take 1 Tablet by mouth in the morning and 1 Tablet before bedtime. 60 Tablet 11 3 06/14/19 24 Discontinued(Pat ient preference/disco ntinuation) Atorvastatin Calcium 20 MG Oral Tablet (Lipitor)Indicatio ns:Dyslipidemia, goal LDL below 70 TAKE 1 TABLET BY MOUTH ONCE DAILY 90 Tablet 3 3 06/14/19 24 Discontinued(Pat ient preference/disco ntinuation) Vancomycin HCl 50 MG/ML Oral Solution Reconstituted Take 2.5 mL by mouth every 6 hours for 9 days. Discard excess medication. 150 mL 0 4 05/23/19 24 Culturelle Oral Capsule Take 1 Capsule by mouth two times per day (morning & before bedtime). 60 Capsule 0 06/13/19 documented as of this encounter (statuses as [...] aorta 07/14/2021 Atherosclerotic heart diseas e of curyung coronary artery with other forms of angina [...] more than one site may be scanned. [id number] [place] [address]. All rights reserved. This information is not [...] Presents for hospital follow up. [place] [facility] [place]14[place]. Found to have c [...] performed by Andrew Dudley MD at [facility] COLONOSCOPY, DIAGNOSTIC (RECTUM) 06/20/2017 adenomatous polyp, diverticulosis/COLONOSCOPY FLEXIBLE PROXIMAL DIAGNOSTIC performed by Andrew Dudley MD at [facility] DEXA SCAN/BONE MINERAL AXIAL 2006 osteoporosis, repeat 2 years DILATION AND CURETTAGE (D&C) 1979' unsure why ECHO (2-D COMPLETE) 10/12 Mild LVH, aortic scler - no stenosis EGD, FLEXIBLE, DIAGNOSTIC N/A 04/05/2023 ESOPHAGOGASTRODUODENOSCOPY (EGD), FLEXIBLE, TRANSORAL, DIAGNOSTIC performed by Manjit Webb MD at OR [facility] FRACTURE NOS 10/12 L Tibial Plateau ORIF LIGATE/CUT OVIDUCT(S) LIGATION/BIOPSY OF TEMPORAL ARTERY Left 06/18/2016 06/18/2016 left temportal artery bx dx benign - [facility] Dr. Garcia LUMBAR / SACRAL EPIDURAL, SINGLE LEVEL 10/04/2015 INJECTION TRANSFORAMINAL EPIDURAL LUMBAR OR SACRAL performed by David Costello, at [facility] LUMBAR / SACRAL EPIDURAL, SINGLE LEVEL 10/25/2015 INJECTION TRANSFORAMINAL EPIDURAL LUMBAR OR SACRAL performed by David Costello DO at [facility] MISCELLANEOUS ORDER ([facility] ONLY) 12/15 excision lipoma forehead REPLACE AORTIC VALVE, PERCUTANEOUS FEMORAL N/A 09/20/2020 REPLACE AORTIC VALVE, PERCUTANEOUS FEMORAL performed by Dimitri Maya MD at [facility] REPLACE AORTIC VALVE, PERCUTANEOUS FEMORAL N/A 09/20/2020 REPLACE AORTIC VALVE, PERCUTANEOUS FEMORAL performed by Alexys Almazan MD, PhD at [facility] TOTAL ABD HYSTERECTOMY W/WO REMOVAL OF TUBE(S) [...] 3:00 PM EDT Scheduled Telephone [facility] [address] [place] [address] Ciara Mac RDN [address] [place] [address] 08/01/2023 3:00 PM EDT Office Visit Orthopaedics [facility] [address] [address] Chava Huff PA-C [address] [place] [address] 09/09/2023 1:30 PM EDT Office Visit Cardiology, [facility] [address] [facility] [place] [address] Halley Preston CRNP [address] [facility] [place] [address] 09/19/2023 3:40 PM EDT Office Visit Otolaryngology/Head & Neck/Facial Plastic Surgery [address] [place] [address] Joesph Yun MD [address] [place] [address] 10/01/2023 10:30 AM EDT Rehab Services Voice Lab, [address] [address] Lance Samuels, [facility] ATTENDANT [address] [facility] [place] [address] 10/01/2023 11:00 AM EDT Appointment Radiology, [address] [phone] 02/10/2024 10:00 AM EST Cardiac Studies Cardiology, [facility] [address] [facility] [place] [address] [facility] [address] [facility] [place] [address] 02/13/2024 8:15 AM EST Cardiac Studies Cardiac Studies, [facility] [address] [facility] [place] [address] Scheduled Orders Name Type Priority Associated Diagnoses [...] Additional history exists CKD PHOS USE SMARTSET 95884 05/13/202407/2023, 05/13/2023, 05/12/2023, Additional history exists Albumin/Creatinine Ratio 05/20/2024 024, 06/08/2022, 06/08/2021 CKD HGB USE SMARTSET 06136 05/20/202405/20, 05/21/2023, 05/14/2023, Additional history exists Depression Screening 06/13/2024 06/14/2023 DTaP,Tdap,and Td Vaccines (2 - Td or Tdap) 08/14/2024 08/14/2014, 01/25/2000 Pneumococcal Vaccine: 65+ Years Completed 01/06/2015, 08/19/2007 VITAMIN D LEVEL ONCE IN A LIFETIME-USE SMARTSET# 80072 Completed 12/11/2018, 07/07/2018, 10/06/2010 Influenza Vaccine (FLU [...] this encounter Medical Devices Implanted Type Area Wash House Worker Device Identifier Shelf Expiration Date Model / Serial / Lot Basehor Pacemaker-12/05 Implanted:Qty: 1 on 12/05/2022 ICD Chest [employer] : CARDIAC SURGERY 09/02/2025 [id number] / / . Lead-12/05/2022 Implanted:Qty: 2 on 12/05/2022 Lead Chest [employer] : CARDIAC SURGERY 10/28/2025 [id number] / / . Balloon Cath Pacing [id number] - [id number] Implanted:Qty: 1 on 09/20/2020 at [facility] CR BARD : MEDICAL [id number] 07/08/2022 [id number] / / [id number] Proglide Perclose [id number] X10 - [id number] Implanted:Qty: 1 on 09/20/2020 at [facility] : VASCULAR DEVICES [id number] 06/08/2022 [id number] / / [id number] Valve Bg 3 Ultra 23mm - [id number] Implanted:Qty: 1 on 09/20/2020 by Dimitri Maya MD at [facility] [employer] [id number] 09/22/2022 [id number] / / . Lead Tempo Temp Pacing - [id number] Implanted:Qty: 1 on 09/20/2020 at [facility] [employer] [id number] 06/28/2021 [id number] / / [id number] documented as of this encounter Results * (ABNORMAL) ALBUMIN / CREATININE RATIO, URINE (05/21/2023 3:56 PM EDT) Albumin, Random Urine 16.25 mg/dL 05/21/2023 10:30 PM EDT [facility] Creatinine, Random Urine 147 mg/dL 05/21/2023 10:30 PM EDT [facility] Albumin / Creatinine Ratio, Urine 111(H) <30 mg/g Creat 05/21/2023 10:30 PM EDT [facility] Urine Urine specimen / Unknown Non-blood Collection / Unknown 05/21/2023 3:56 PM EDT 05/21/2023 3:56 PM EDT Narrative [facility] - 05/21/2023 10:30 PM EDT Normal: <30 mg/g creatinine High: 30-300 mg/g creatinine Very High: >300 mg/g creatinine Nephrotic: >2200 mg/g creatinine Kalen Ribeiro MD LAB URINE ORDERABL ES [facility] [address] [place] [address] documented in this encounter Visit Diagnoses Diagnosis [...] 05/10/2023 11:00 PM 05/14/2023 5:25 PM This order reflects the patients wishes [...] the patient have Health Care Power of Hogshead Packer? No Full Code 09/25/2020 6:44 PM 09/26/2020 6:50 PM This order reflects the patients wishes and were consensually agreed upon. Care Teams Allergy Physician Relationship Specialty Start Date End Date Kalen Ribeiro MD [address] [place] [facility] [place] [address] PCP - General 12/15/01 documented as of this encounter"
--- NOTE | 2023-06-30 14:44 | Hospitalist Progress Note ---
Date of Service June 30, 2023 Assessment & Plan (1) Failure to thrive in adult: Plan 83-year-old lady with PMH of chronic diastolic heart failure [EF 60 to 64%, TTE 2023], SSS s/p PPM not on anticoagulation due to bleeding, valvular heart disease [severe s/p TAVR], nonocclusive CAD, HTN, HLD, pulmonary thromboembolism, HIT, GERD, hypothyroidism, history of temporal arteritis, chronic anemia [baseline hemoglobin of 10], C. difficile presented to the ED from [facility] for evaluation decreased p.o. intake, BLE swelling, increasing weakness. Patient reports no hunger, denies aspiration/febrile illness/shortness of breath/chest pain. She is being managed for the following: Failure to thrive in an elderly Likely severe malnutrition Hyponatremia: Likely secondary to poor appetite. Patient reports having poor appetite at baseline, per EMR weight around 52.1 kg in February 2023, has decreased down to 43-46 Kg at during last admission. 48 kg this admission, likely increased BLE edema contributing to wt gain here. Pt does appear cachectic, lean , weak, frail. Encourage p.o. intake. Dietitian consult. Monitor replete electrolytes. BLE swelling likely 2/2 poor nutrition/lack of mobility. DVT ruled out. Pt w/ very poor appetite at baseline, c/w rameron, No improvement in intake has been noted. Pt and her dtr historically were not interested in alternative nutrition methods. megestrol contraindicated in the patient. Goals of care discussion: Palliative care on board. Discussed with palliative care 06/27, plan to discharge patient on hospice, Saturday. If patient were to decline, moved to comfort care. Otherwise just keep her stable for now. d/w pt's dtr Suri 06/28 - no lab, no heart monitor, plan for hospice to facility come saturday after meeting w/ palliative. Loose stool: As an outpatient, patient on p.o. vancomycin and colestipol. Continue. Better controlled per d/w RN. Mild troponin elevation: Appears chronic. Patient with no chest pain. Continue telemetry monitoring. EKG with paced rhythm. Prediabetes: DM2 has been ruled out during last admission though A1c 6.8. Other chronic medical conditions: Continue with/resume home meds as and when able. chronic diastolic heart failure, equivocal volume status, patient intravascularly dry but with bilateral leg swelling hx SSS status post PPM not on anticoagulation due to bleeding, paced rhythm valvular heart disease (severe status post TAVR, mild MR/TR) hx nonocclusive CAD hypertension, stable hyperlipidemia, on statin Rx history of pulmonary thromboembolism Heparin-induced thrombocytopenia as per records hypothyroidism, euthyroid as of today's TSH chronic anemia, hemoglobin at baseline Recent C. difficile history status post vancomycin Rx Palliative on board, plan for discharge with hospice on Saturday. med surg until then. DVT prophylaxis. Arixtra (history of HIT) DNR Please note the above document was generated using voice recognition software. It may contain grammatical, syntax or spelling errors. Any formal questions or concerns about the content, text or information contained within the body of thi s dictation should be directly addressed to the undersigned for clarification. Admission and Anticipated Discharge Date Admission Date: June 29, 2023 Subjective Patient was seen and examined at bedside. Patient was lying in bed, on room air, NAD. Patient reports no hunger, has not been eating much , reports eating very little in the morning, no new acute event overnight. Patient not much ambulatory. Patient appears weak and frail. Physical Exam Physical Exam: GENERAL: Apathetic, pleasant, slightly hard of hearing, no respiratory distress SKIN: Pallor, warm HEENT: Pale palpebral conjunctivae, no ptosis, dry buccal mucosa NECK : Supple, no tenderness CHEST : Decreased breath sounds, no tenderness HEART : RRR, systolic murmur ABDOMEN: no distention, nontender EXTREMITIES : Bilateral LE swelling, no LE tenderness, no other conspicuous deformities noted NEUROLOGIC : Coherent, no facial asymmetry, hearing impairment, gait and stance not assessed Results & Data Results & Data Vital Signs (Past 12 Hours) Vital Signs Temp Pulse Pulse Resp BP Pulse Ox O2 Del Method 06/30/23 12:12 36.5 C 81 16 109/74 98 Room Air 06/30/23 07:53 36.5 C 72 16 111/73 97 Room Air 06/30/23 07:20 76 06/30/23 03:27 36.5 C 64 16 133/74 95 Room Air
--- NOTE | 2023-07-01 15:25 | Hospitalist Progress Note ---
Date of Service July 01, 2023 Assessment & Plan (1) Failure to thrive in adult: Plan 83-year-old lady with PMH of chronic diastolic heart failure [EF 60 to 64%, TTE 2023], SSS s/p PPM not on anticoagulation due to bleeding, valvular heart disease [severe s/p TAVR], nonocclusive CAD, HTN, HLD, pulmonary thromboembolism, HIT, GERD, hypothyroidism, history of temporal arteritis, chronic anemia [baseline hemoglobin of 10], C. difficile presented to the ED from [facility] for evaluation decreased p.o. intake, BLE swelling, increasing weakness. Patient reports no hunger, denies aspiration/febrile illness/shortness of breath/chest pain. She is being managed for the following: Failure to thrive in an elderly Likely severe malnutrition Hyponatremia: Likely secondary to poor appetite. Patient reports having poor appetite at baseline, per EMR weight around 52.1 kg in February 2023, has decreased down to 43-46 Kg at during last admission. 48 kg this admission, likely increased BLE edema contributing to wt gain here. Pt does appear cachectic, lean , weak, frail. Encourage p.o. intake. Dietitian consult. Monitor replete electrolytes. BLE swelling likely 2/2 poor nutrition/lack of mobility. DVT ruled out. Pt w/ very poor appetite at baseline, c/w rameron, No improvement in intake has been noted. Pt and her dtr not interested in alternative nutrition methods. megestrol contraindicated in the patient. Goals of care discussion: Palliative care on board. Discussed with palliative care 06/27, plan to discharge patient on hospice, Saturday. If patient were to decline, moved to comfort care. Otherwise just keep her stable for now. d/w pt's dtr Suri 06/28 - no lab, no heart monitor, plan for hospice to facility come saturday after meeting w/ palliative. likely dc to hospice w/ facility [facility]. Loose stool: As an outpatient, patient on p.o. vancomycin and colestipol. Continue. Better controlled per d/w RN. Mild troponin elevation: Appears chronic. Patient with no chest pain. Continue telemetry monitoring. EKG with paced rhythm. Prediabetes: DM2 has been ruled out during last admission though A1c 6.8. Other chronic medical conditions: Continue with/resume home meds as and when able. chronic diastolic heart failure, equivocal volume status, patient intravascularly dry but with bilateral leg swelling hx SSS status post PPM not on anticoagulation due to bleeding, paced rhythm valvular heart disease (severe status post TAVR, mild MR/TR) hx nonocclusive CAD hypertension, stable hyperlipidemia, on statin Rx history of pulmonary thromboembolism Heparin-induced thrombocytopenia as per records hypothyroidism, euthyroid as of today's TSH chronic anemia, hemoglobin at baseline Recent C. difficile history status post vancomycin Rx Palliative on board, plan for discharge with hospice on Saturday. med surg until then. DVT prophylaxis. Arixtra (history of HIT) DNR Dispo: likely [facility] per CM note. Please note the above document was generated using voice recognition software. It may contain grammatical, syntax or spelling errors. Any formal questions or concerns about the content, text or information contained within the body of this dictation should be directly addressed to the undersigned for clarification. Admission and Anticipated Discharge Date Admission Date: June 29, 2023 Subjective Patient was seen and examined at bedside. Patient was lying in bed, on room air, NAD. Patient reports no hunger, has not been eating much , reports eating very little in the morning, no new acute event overnight. Patient not much ambulatory. Patient appears weak and frail. Physical Exam Physical Exam: GENERAL: Apathetic, pleasant, slightly hard of hearing, no respiratory distress SKIN: Pallor, warm HEENT: Pale palpebral conjunctivae, no ptosis, dry buccal mucosa NECK : Supple, no tenderness CHEST : Decreased breath sounds, no tenderness HEART : RRR, systolic murmur ABDOMEN: no distention, nontender EXTREMITIES : Bilateral LE swelling, no LE tenderness, no other conspicuous deformities noted NEUROLOGIC : Coherent, no facial asymmetry, hearing impairment, gait and stance not assessed Results & Data Results & Data Vital Signs (Past 12 Hours) Vital Signs Temp Pulse Pulse Resp BP Pulse Ox O2 Del Method 07/01/23 14:49 76 07/01/23 11:57 36.5 C 69 16 126/78 97 Room Air 07/01/23 07:37 36.5 C 78 16 138/88 93 Room Air 07/01/23 07:34 Room Air 07/01/23 07:06 76 07/01/23 03:36 36.4 C L 77 18 148/84 H 93 Room Air
--- NOTE | 2023-07-01 19:20 | Palliative Care Progress Note ---
Date of Service July 01, 2023 Assessment & Plan (1) Dyspnea and respiratory abnormalities: (2) Weakness generalized: (3) Palliative care by specialist: (4) Advanced care planning/counseling discussion: Plan: ACP face to face with pt and dtr at bedside for 25min SHe desires return to SNF with hospice She desires comfort care, no return to hospital We discussed the goals of hospice as a patient service and the goals of care; we discussed EOL trajectories and transitions philippe the emotional impact of realizing mortality as a concrete reality from prior abstract considerations. Pt was reassured that no matter where they are along this trajectory, they are not alone - their medical team will remain by their side through their journey. Discussed the pros/cons of accepting help when especially weakened and distressed by pain-which would also help provide relief/decrease caregiver burden/strain. I provided education about the hospice benefit: an interdisciplinary program offered by nurses, nurses aides, social workers, chaplains and a medical records field technician for patients with a terminal condition and a life expectancy of less than 6 months. This is covered by Medicare at 100%/no out of pocket expense to patient and all meds/supplies needed by patient for the reason they are on hospice are paid for/covered by hospice. The goal is assure quality of life of the patient in their home setting (home, [place] [facility], inpatient hospice setting) by providing symptoms management, psychosocial and spiritual support. However, they cannot offer 24 hours care and if the family is unable to provide that care, they will have to consider personal care with out of pocket cost vs. [place] [facility] placement. We discussed the goals of hospice as a patient service and the goals of care; we discussed EOL trajectories and transitions philippe the emotional impact of realizing mortality as a concrete reality from prior abstract considerations. Pt was reassured that no matter where they are along this trajectory, they are not alone - their medical team will remain by their side through their journey. Discussed the pros/cons of accepting help when especially weakened and distressed by pain-which would also help provide relief/decrease caregiver burden/strain. 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 Please don't hesitate to call or page with any additional concerns. Dr. Hetal Blum DNP Director, Palliative Care Admission and Anticipated Discharge Date Admission Date: June 29, 2023 Subjective resting in bed appetite is still poor generalized weakness very tired mild SOB daughter at bedside no acute issues she would like to go back to her [place] [facility] with hospice she does not want to return to hospital Review of Systems Review of Systems: All systems reviewed & are unremarkable except as noted in Subjective Physical Exam Constitutional: + ill appearing, + cachectic, + physical limitations and + frail appearing Eyes: PERRL and normal accommodation ENMT: Mouth: + dry oral mucous membranes and + poor dentition Neck: trachea midline Thyroid: normal thyroid Respiratory: normal respiratory effort and symmetric chest movement Auscultation: + diminished lung sounds Cardiovascular: Rate/Rhythm: + irregularly irregular Gastrointestinal (Abdomen): Inspection/Auscultation: + scaphoid Musculoskeletal: generalized weakness Skin: pale, cool Neurologic: AAOx3 Results & Data Vital Signs (Past 12 Hours) Vital Signs Temp Pulse Pulse Resp BP Pulse Ox O2 Del Method 07/01/23 15:48 36.4 C L 75 16 112/66 99 Room Air 07/01/23 14:49 76 07/01/23 11:57 36.5 C 69 16 126/78 97 Room Air 07/01/23 07:37 36.5 C 78 16 138/88 93 Room Air 07/01/23 07:34 Room Air Laboratory Results Most recent lab results Calcium 7.9 mg/dl (8.6-10.3) L 06/29/23 04:32 Magnesium 1.7 mg/dl (1.7-2.4) 06/28/23 01:39 Diagnostic Findings Chest X-Ray 06/28/23 01:46 XR chest 1V portable CLINICAL HISTORY: Sepsis COMPARISON STUDY: Chest radiograph and chest CT May 31, 2023. FINDINGS: There is no pneumothorax. There are trace bilateral pleural effusions. Patient is rotated. Cardiomediastinal silhouette is stable. There is a prosthetic aortic valve and left subclavian pacer. There is no evidence for pulmonary edema or pneumonia. IMPRESSION: 1. Trace bilateral pleural effusions. 2. No evidence for pulmonary edema. ACT 112: Negative or not required by law. Electronically signed by: Timothy Molina M.D. 06/28/2023 6:33 AM Venous Doppler Study 06/28/23 04:28 BILATERAL LOWER EXTREMITY VENOUS DOPPLER CLINICAL HISTORY: leg swelling COMPARISON STUDY: No previous studies for comparison. TECHNIQUE: Sonography of the deep venous system of the bilateral lower extremities was performed. Compression and augmentation were evaluated. FINDINGS: The bilateral common femoral, superficial femoral and popliteal veins were compressible. Augmentation was normal. Flow was shown within the deep calf vessels. IMPRESSION: No evidence of deep venous thrombus within the bilateral lower extremities. ACT 112: Negative or not required by law. Electronically signed by: Timothy Molina M.D. 06/28/2023 6:30 AM PG Care Time/CCT Total # of Minutes Spent Total Time Spent with Patient: Total time spent is greater than 50% in coordination of care (as documented) at patient's floor/unit and/or counseling patient: I spent 60 minutes overall addressing this case: 5 min in medical data review/discussion with referring provider(s) and/or preparation for the visit 10 min in direct interaction with the patient/exam 25 min in Advance Care Planning/Goals of Care discussions as detailed above in note (must be >16min) 10 min in subsequent review and synthesis of assessment and plan 10 min communicating with other providers regarding the patient's case: Advanced Care Planning 18384 Advanced Care Planning 30 Min [place] [address] SUB INP/OBS CARE 3/50MIN Patient Type Established History Comprehensive Exam Comprehensive Medical Decision Making High Complexity Diagnoses Dyspnea and respiratory abnormalities R06.00; R06.89 Weakness generalized R53.1 Palliative care by specialist Z51.5 Advanced care planning/counseling discussion Z71.89 Failure to thrive in adult R62.7 Additional Codes Advanced Care Planning - 31523 Advanced Care Planning 30 Min: 02019 Advanced Care Planning 30 Min ([id number])
[2023-07-01] MEDS: LATANOPROST 0.005% OP SOLN 2.5 ML BTL OPB SCH (21:02)
[2023-07-02 07:35] LABS: Creatinine Clr Calc Pharmacy 30.2 ml/min; Est GFR (African American) 70.4 ml/min; Est GFR (Non-African American) 60.8 ml/min
--- NOTE | 2023-07-02 11:41 | Discharge Summary ---
Date of Service July 02, 2023 Admission HPI Per Admitting Provider History obtained from patient, family, and records. Limited history from patient secondary to apathy. Medical history significant for chronic diastolic heart failure (60 to 64%, TTE 2023), SSS status post PPM not on anticoagulation due to bleeding, valvular heart disease (severe status post TAVR, mild MR/TR), nonocclusive CAD, hypertension, hyperlipidemia, history of pulmonary thromboembolism, heparin- induced thrombocytopenia as per records, GERD, hypothyroidism, history of temporal arteritis, chronic anemia (baseline hemoglobin of 10), C. difficile on vancomycin Rx. Recent [facility] confinement last month for hypokalemia and complicated bronchitis. Palliative care consulted to discuss goals of care given patient failure to thrive and malnutrition. Patient daughter did not hear from specialist prior to patient's return to [facility] as per her account. Patient still with appetite upon return to facility. Denies abdominal pain. Patient admits to being sad but denies suicidality. Watery loose stools without abdominal pain noted at facility last week. Outpatient provider prescribed oral vancomycin for possible recurrent C. difficile. Stool tests yet to be collected as per daughter. Outpatient GI referral 2 days ago for diarrhea. Provider okay with continuing vancomycin Rx indefinitely. Colestid pills prescribed. Increased bilateral leg swelling noted at [facility]. Patient denies chest pain, SOB. Patient actually losing weight. Increasing weakness noted. Patient brought to ER for evaluation. 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 Admission Exam Per Admitting Provider GENERAL: Apathetic, pleasant, slightly hard of hearing, no respiratory distress SKIN: Pallor, warm HEENT: Pale palpebral conjunctivae, no ptosis, dry buccal mucosa NECK : Supple, no tenderness CHEST : Decreased breath sounds, no tenderness HEART : RRR, systolic murmur ABDOMEN: no distention, nontender EXTREMITIES : Bilateral LE swelling, no LE tenderness, no other conspicuous deformities noted NEUROLOGIC : Coherent, no facial asymmetry, hearing impairment, gait and stance not assessed Principal Diagnosis Failure to thrive Severe malnutrition Discharge Exam GENERAL: Apathetic, pleasant, slightly hard of hearing, no respiratory distress SKIN: Pallor, warm HEENT: Pale palpebral conjunctivae, no ptosis, dry buccal mucosa NECK : Supple, no tenderness CHEST : Decreased breath sounds, no tenderness HEART : RRR, systolic murmur ABDOMEN: no distention, nontender EXTREMITIES : Bilateral LE swelling, no LE tenderness, no other conspicuous deformities noted NEUROLOGIC : Coherent, no facial asymmetry, hearing impairment, gait and stance not assessed Discharge Data Allergies Allergy/AdvReac Type Severity Reaction Status Date / Time heparin AdvReac Severe see comment Verified 05/31/23 23:45 Consultations 06/28/23 03:23 ED Decision to Admit Stat 06/28/23 04:33 Consult Palliative Care Routine Ordered Studies 06/28/23 04:28 US venous doppler LE BI Stat Hospital Course (1) Failure to thrive in adult: Plan 83-year-old lady with PMH of chronic diastolic heart failure [EF 60 to 64%, TTE 2023], SSS s/p PPM not on anticoagulation due to bleeding, valvular heart disease [severe s/p TAVR], nonocclusive CAD, HTN, HLD, pulmonary thromboembolism, HIT, GERD, hypothyroidism, history of temporal arteritis, chronic anemia [baseline hemoglobin of 10], C. difficile presented to the ED from [facility] for evaluation decreased p.o. intake, BLE swelling, increasing weakness. Patient reports no hunger, denies aspiration/febrile illness/shortness of breath/chest pain. She was managed for the following: Failure to thrive in an elderly Likely severe malnutrition Hyponatremia: Likely secondary to poor appetite. Patient reports having poor appetite at baseline, per EMR weight around 52.1 kg in February 2023, has decreased down to 43-46 Kg at during last admission. 48 kg this admission, likely increased BLE edema contributing to wt gain here. Pt does appear cachectic, lean , weak, frail. Encourage p.o. intake. Dietitian consult. Monitor replete electrolytes. BLE swelling likely 2/2 poor nutrition/lack of mobility. DVT ruled out. Pt w/ very poor appetite at baseline, c/w rameron, No improvement in intake has been noted. Pt and her dtr not interested in alternative nutrition methods. megestrol contraindicated in the patient. Goals of care discussion: Palliative care on board. Discussed with palliative care 06/27, plan to discharge patient on hospice, Saturday. If patient were to decline, move to comfort care. Otherwise just keep her stable for now. d/w pt's dtr Suri 06/28 - no lab, no heart monitor, plan for hospice to facility come Saturday after meeting w/ palliative. likely dc to hospice w/ facility today. Loose stool: As an outpatient, patient on p.o. vancomycin and colestipol. Continue. Better controlled per d/w RN. Mild troponin elevation: Appears chronic. Patient with no chest pain. Continue telemetry monitoring. EKG with paced rhythm. Prediabetes: DM2 has been ruled out during last admission though A1c 6.8. Other chronic medical conditions: Continue with/resume home meds as and when able. chronic diastolic heart failure, equivocal volume status, patient intravascularly dry but with bilateral leg swelling hx SSS status post PPM not on anticoagulation due to bleeding, paced rhythm valvular heart disease (severe status post TAVR, mild MR/TR) hx nonocclusive CAD hypertension, stable hyperlipidemia, on statin Rx history of pulmonary thromboembolism Heparin-induced thrombocytopenia as per records hypothyroidism, euthyroid as of today's TSH chronic anemia, hemoglobin at baseline Recent C. difficile history status post vancomycin Rx Palliative on board, plan for discharge with hospice on Saturday. med surg until then. DVT prophylaxis. Arixtra (history of HIT) DNR Dispo: Patient is being discharged to medical facility with hospice. Please note the above document was generated using voice recognition software. It may contain grammatical, syntax or spelling errors. Any formal questions or concerns about the content, text or information contained within the body of this dictation should be directly addressed to the undersigned for clarification. Home Health Attestation I certify that this patient is under my care and that I, or a physicians certified medical assistant working with me, had a face to-face encounter that meets the home health [id number] encounter requirements with this patient. The encounter with the patient was in whole, or in part, for the following medical condition, which is the primary reason for home health care (list medi cristin condition): I certify that, based on my findings, the following services are medically necessary home health services: My clinical findings support the need for the above services because: Further, I certify that my clinical findings support that this patient is homebound (i.e. absences from home require considerable and taxing effort and are for medical reasons or latter day services or infrequently or of short duration when for other reasons) because: Certification for Home Health Services: Based on the above findings, I certify that this patient is confined to the home and needs intermittent mcfp care, physical therapy and/or speech ther apy or continues to need occupational therapy. The patient is under my care, and I have initiated the establishment of the plan of care. This patient will be followed by a physician who will periodically review the plan of care. Total Time Total Time Spent Total Time Spent (In Minutes): 40 Discharge Plan Discharge Items Patient Disposition: Hospice - Medical Facility Reason For Visit: WEAKNESS, TROP ELEV Discharge Diagnosis: Failure to thrive Severe malnutrition Activity: Resume your previous activity Non-emergency contact: Primary Care Provider Call non-emergency contact if: you have any medication questions Follow-up/Referrals: Kalen Ribeiro MD [Primary Care Provider] - Diet: Regular Diet Texture: Dental soft (bite-sized) Addtl Attending Provider Instructions: You are being discharged to medical facility under hospice care. Hospice will take over care of your medications once you are at facility. Pending Studies at Discharge: No Stand-Alone Forms: My [facility] Skilled Items Patient informed of condition?: Yes DNR: Yes Discharge Level of Care: Other Communicable Disease: No Discharge Prognosis: Other Lines: None Urinary Catheter: No Medications and DC Order Prescriptions: Continued folic acid 1 mg Tablet 1 mg PO QAM Qty: 30 0RF acetaminophen 650 mg Tablet Extended Release 650 mg PO Q8H PRN (Reason: Pain) Qty: 30 0RF levothyroxine 100 mcg Tablet 100 mcg PO QAM Qty: 30 0RF famotidine 20 mg tablet 20 mg PO BID Qty: 60 0RF aspirin 81 mg tablet,chewable 81 mg PO QAM Qty: 30 0RF dorzolamide-timolol 22.3-6.8 mg/mL drops 1 drp ophthalmic (eye) BID Qty: 1 0RF mirtazapine 15 mg tablet 15 mg PO HS Qty: 30 0RF multivit with min-folic acid [Multivitamin Gummies] 200 mcg Tablet,Chewable 1 tab PO DAILY Qty: 30 0RF thiamine HCl (vitamin B1) 100 mg tablet 100 mg PO DAILY vancomycin 125 mg capsule 125 mg PO Q6 Rx Instructions: take for 10 days starting 06/21/23 ending 07/01/23 1200,1800,2400,0600 Fiber Supplement Powder 2 tsp PO QAM Rocklatan 0.02-0.005 % drops 1 drp OPB HS colestipol 1 gram Tablet 2 g PO DAILY Rx Instructions: stop if constipated potassium chloride 20 mEq/15 mL liquid 20 meq PO DAILY lidocaine HCl [Aspercreme (lidocaine HCl)] 4 % Cream 1 applic TOPICAL TID PRN (Reason: Pain) Rx Instructions: apply to affected joints Discharge Orders: Discharge Order (Routine); Ordered 07/02/23 Ordered By: Tiffany Be Admission Data Admit Date/Time: 06/29/23 16:25 Attending Provider: Tiffany Be Admit Provider: Cody Mcelroy Primary Care Provider: Kalen Ribeiro Other Providers: Cody Mcelroy; Hetal Blum; [facility],Hospice
== END 2023-07-02 12:22 | disposition hospice, inpatient (51) | DRG 640 ==
LOC: EDINP 01:29 → ED 01:29 → 2N 06-29 14:06